=== PATIENT | male | born 1985 | race Caucasian/White ===

== ENCOUNTER 2019-05-16 09:13 | Inpatient (IN) | payer MEDICARE, MEDICAID, SELFPAY ==
[2019-05-16 09:22] VITALS: BP 119/83; PULSE 104; RESP 18; TEMP 36.9; O2SAT 96; BMI 25.1
--- NOTE | 2019-05-16 09:44 | ED_ITS ---
Entered by Liz Barron, acting as scribe for Farhad Haas DO HPI - Psych General: Chief Complaint: Psychiatric Symptoms Stated Complaint: SI Time Seen by Provider: 05/16/19 09:44 Source: patient Mode of arrival: ambulatory Limitations: no limitations History of Present Illness: HPI Narrative: 34-year-old male comes in complaining of suicidal ideation. He has been hospitalized in the past for this. States he took a number of NSAIDs. He is not had any vomiting or diarrhea. He took maybe 8-10 of each ibuprofen and Naprosyn. Denies any other attempts to harm himself or taking any other medications. Patient is also been hearing voices and seeing things. He states the voices are what told him to kill try to kill himself. 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) Duration: constant History of same: Yes Relieving factors: none Exacerbating factors: medication (to overdose) and other (voices telling him to kill himself) Associated psychiatric symptoms: depression and suicidal ideation Associated symptoms: Reports no associated symptoms Treatments prior to arrival: none If self harm: admits thoughts of self harm and has plan (overdose) Review of Systems General: Reports: 10 or more systems reviewed and unremarkable except in HPI and below Const: Denies: fever, chills, body aches, change in appetite, fatigue or malaise ENMT: Denies: throat pain, ear pain, nasal discharge or nasal congestion Card: Denies: chest pain, edema, shortness of breath on exertion or shortness of breath when lying down Resp: Denies: shortness of breath, productive cough or non-productive cough GI: Denies: abdominal pain, nausea, vomiting, vomiting blood, coffee grounds in vomit, diarrhea, constipation, bloating, blood in stool or black tarry stool : Denies: flank pain, painful urination, urinary frequency or urinary urgency Skin/Breast: Denies: rash or itching PFSH ED PFSH: Social History Smoking and tobacco status: current every day smoker Physical Exam Const: COMMON NORMALS: average body habitus, oriented x3 and alert GENERAL APPEARANCE: cooperative, comfortable, well kempt and well developed NUTRITIONAL APPEARANCE: obese ORIENTATION/CONSCIOUSNESS: Yes awake, Yes orien peggy to person and Yes oriented to place HENMT: COMMON NORMALS: normocephalic, head/scalp atraumatic, EAC's normal, TM's normal bilaterally, external nose normal, moist oral mucous membranes and oropharynx normal HEAD & SCALP: normocephalic and atraumatic NOSE: externa l nose normal EXTERNAL AUDITORY CANAL: EAC's normal TYMPANIC MEMBRANE: TM's normal bilaterally MOUTH: oral and palatal mucosa normal, lip normal and tongue normal THROAT: posterior oropharynx normal and tonsils normal Eye: COMMON NORMALS: PERRL, EOMs intact bilaterally, conjunctivae normal and no scleral icterus CONJUNCTIVA: Yes conjunctivae normal PUPIL: Yes PERRL Neck/C-Spine: COMMON NORMALS: full ROM, no lymphadenopathy, supple, no meningeal signs and thyroid normal THYROID: thyroid normal and asymmetrical Lymph: LYMPHATIC: no lymphadenopathy noted Resp: COMMON NORMALS: normal respiratory effort, no retractions, no use of accessory muscles and clear to auscultation bilaterally AUSCULTATION: clear to auscultation bilaterally Cardio: COMMON NORMALS: regular rate and regular rhythm RATE: regular rate RHYTHM: regular rhythm HEART SOUNDS: no murmurs GI: COMMON NORMALS: normal to inspection, nondistended, normoactive bowel sounds, soft to palpation and no hepatosplenomegaly PALPATION: Yes soft and Yes no hepatosplenomegaly : COMMON NORMALS: Yes no CVA tenderness BLADDER/KIDNEY EXAM: Yes no CVA tenderness Back/Pelvis: COMMON NORMALS: no CVA tenderness LUMBAR SPINE/LOWER BACK: Yes normal to inspection Extremity: COMMON NORMALS: no clubbing, cyanosis or edema, no calf tenderness and no pedal edema Neuro: COMMON NORMALS: oriented x3 SENSORIUM/ORIENTATION: Yes alert, Yes oriented to person and Yes oriented to place MENINGEAL SIGNS: Yes no meningeal signs Psych: APPEARANCE: Yes well kempt Skin: COMMON NORMALS: no rashes or lesions noted and skin turgor normal GENERAL SKIN EXAM: no rashes or lesions noted and turgor normal MDM - Psych Lab Data: Labs: Lab Results 05/16/19 05/16/19 05/16/19 Range/Units 10:12 10:12 10:20 WBC 6.2 (4.0-10.0) 10^3/ uL RBC 5.03 (4.1-5.3) 10^6/u L Hgb 14.7 (11.7-16.6) g/dL Hct 43.3 (42.0-52.0) % MCV 86.1 (80-94) fL MCH 29.2 (28.0-34.0) pg MCHC 33.9 (30.0-36.0) g/dL RDW 12.1 (12.1-15.1) % Plt Count 203 (130-400) 10^3/c mm MPV 10.1 (7.4-10.4) fL Neut % (Auto) 72.7 % Lymph % (Auto) 18.2 % Dawes % (Auto) 5.8 % Eos % (Auto) 2.7 % Baso % (Auto) 0.3 % Neut # (Auto) 4.5 (1.8-7.7) 10^3/u L Lymph # (Auto) 1.1 (0.8-4.8) 10^3/u L Dawes # (Auto) 0.4 (0.2-0.9) 10^3/u L Eos # (Auto) 0.2 (0.0-0.8) 10^3/u L Baso # (Auto) 0.0 (0.0-0.1) 10^3/u L Nucleated RBC % (a uto) 0 % Nucleated RBCs # 0.0 /100WBC Sodium (136-145) mmol/L Potassium (3.5-5.1) mmol/L Chloride (98-107) mmol/L Carbon Dioxide (22-29) mmol/L Anion Gap (5-19) BUN (6-20) mg/dL Creatinine (0.7-1.2) mg/dL GFR Calculation (90-130) mL/min Glucose (65-115) mg/dL Calcium (8.5-10.5) mg/dL Total Bilirubin (0.15-1.2) mg/dL AST (0-40) U/L ALT (0-41) U/L Alkaline Phosphata se (40-130) IU/L Total Protein (6.6-8.7) g/dL Albumin (3.5-5.2) g/dL Globulin (1.3-4.6) g/dL Urine Color Yellow (Yellow) Urine Appearance Clear (CLEAR) Urine pH 5 (5-7) Ur Specific Gravit y 1.015 (1.005-1.030) Urine Protein Neg (Negative) Urine Glucose (UA) Norm (Normal) Urine Ketones Negative (Negative) Urine Occult Blood Neg (Negative) Urine Nitrate Negative (Negative) Urine Bilirubin Neg (NEGATIVE) Urine Urobilinogen Norm (Negative) mg/dL Ur Leukocyte Riya ase Negative (Negative) Salicylates (3-10) mg/dL Urine Opiates Scre en Negative (Negative) ng/mL Acetaminophen (10-30) ug/mL Ur Barbiturates Sc reen Negative (Negative) ng/mL Ur Phencyclidine S crn Negative (Negative) ng/mL Ur Amphetamines Sc reen Negative (Negative) ng/mL U Benzodiazepines Scrn Negative (Negative) ng/mL Urine Cocaine Scre en Negative (Negative) ng/mL U Marijuana (THC) Screen Negative (Negative) ng/mL Ethyl Alcohol (0-10) mg/dL 05/16/19 Range/Units 10:20 WBC (4.0-10.0) 10^3/ uL RBC (4.1-5.3) 10^6/u L Hgb (11.7-16.6) g/dL Hct (42.0-52.0) % MCV (80-94) fL MCH (28.0-34.0) pg MCHC (30.0-36.0) g/dL RDW (12.1-15.1) % Plt Count (130-400) 10^3/c mm MPV (7.4-10.4) fL Neut % (Auto) % Lymph % (Auto) % Dawes % (Auto) % Eos % (Auto) % Baso % (Auto) % Neut # (Auto) (1.8-7.7) 10^3/u L Lymph # (Auto) (0.8-4.8) 10^3/u L Dawes # (Auto) (0.2-0.9) 10^3/u L Eos # (Auto) (0.0-0.8) 10^3/u L Baso # (Auto) (0.0-0.1) 10^3/u L Nucleated RBC % (a uto) % Nucleated RBCs # /100WBC Sodium 139 (136-145) mmol/L Potassium 4.1 (3.5-5.1) mmol/L Chloride 102 (98-107) mmol/L Carbon Dioxide 22 (22-29) mmol/L Anion Gap 19.1 H (5-19) BUN 13 (6-20) mg/dL Creatinine 0.9 (0.7-1.2) mg/dL GFR Calculation 96.0 (90-130) mL/min Glucose 132 H (65-115) mg/dL Calcium 9.7 (8.5-10.5) mg/dL Total Bilirubin 0.4 (0.15-1.2) mg/dL AST 15 (0-40) U/L ALT 6 (0-41) U/L Alkaline Phosphata se 59 (40-130) IU/L Total Protein 7.2 (6.6-8.7) g/dL Albumin 4.3 (3.5-5.2) g/dL Globulin 2.9 (1.3-4.6) g/dL Urine Color (Yellow) Urine Appearance (CLEAR) Urine pH (5-7) Ur Specific Gravit y (1.005-1.030) Urine Protein (Negative) Urine Glucose (UA) (Normal) Urine Ketones (Negative) Urine Occult Blood (Negative) Urine Nitrate (Negative) Urine Bilirubin (NEGATIVE) Urine Urobilinogen (Negative) mg/dL Ur Leukocyte Riya ase (Negative) Salicylates < 0.3 L (3-10) mg/dL Urine Opiates Scre en (Negative) ng/mL Acetaminophen < 5.0 L (10-30) ug/mL Ur Barbiturates Sc reen (Negative) ng/mL Ur Phencyclidine S crn (Negative) ng/mL Ur Amphetamines Sc reen (Negative) ng/mL U Benzodiazepines Scrn (Negative) ng/mL Urine Cocaine Scre en (Negative) ng/mL U Marijuana (THC) Screen (Negative) ng/mL Ethyl Alcohol < 10 (0-10) mg/dL Discharge Plan Discharge Patient Disposition: Admitted As Inpatient Admit Provider: Jay Gabriel Clinical Impression: Suicidal ideation, Chronic schizophrenia, Acute psychosis Condition: Stable Interventions: ED Discharge Assessment Last Done: 05/16/19 11:48 Discharge Date/Time: 05/16/19 11:55 Coding Level of Care Code ED Cnc Technician for [facility] 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 The documentation recorded by the Anderson meredith Bridget Annette, accurately reflects the service I personally performed and the decisions made by me, Farhad Haas, DO May 16, 2019 09:13
[2019-05-16 10:18] LABS: Add Urine Microscopic? NO
[2019-05-16 10:28] LABS: Basophils % 0.3 %; Eosinophils # 0.2 10^3/uL (0.0-0.8); Eosinophils % 2.7 %; Hematocrit 43.3 % (42.0-52.0); Hemoglobin 14.7 g/dL (11.7-16.6); Lymphocytes # 1.1 10^3/uL (0.8-4.8); Lymphocytes % 18.2 %; Mean Corpuscular HGB Conc 33.9 g/dL (30.0-36.0); Mean Corpuscular Hemoglobin 29.2 pg (28.0-34.0); Mean Corpuscular Volume 86.1 fL (80-94); Mean Platelet Volume 10.1 fL (7.4-10.4); Monocytes # 0.4 10^3/uL (0.2-0.9); Monocytes % 5.8 %; Neutrophils # 4.5 10^3/uL (1.8-7.7); Neutrophils % 72.7 %; Nucleated Red Blood Cells % 0 %; Platelet Count 203 10^3/cmm (130-400); Red Blood Count 5.03 10^6/uL (4.1-5.3); Red Cell Distribution Width 12.1 % (12.1-15.1); White Blood Count 6.2 10^3/uL (4.0-10.0)
[2019-05-16 10:38] LABS: Bilirubin Urine Neg (NEGATIVE); Blood Urine Neg (Negative); Glucose Urine UA Norm (Normal); Ketones Urine Negative (Negative); Nitrate Urine Negative (Negative); Protein Urine Neg (Negative); Specific Gravity, Urine 1.015 (1.005-1.030); Urine Appearance Clear (CLEAR); Urine Color Yellow (Yellow); pH Urine 5 (5-7)
[2019-05-16 10:39] LABS: Leukocyte Esterase Urine Negative (Negative); Urobilinogen Urine Norm (Negative)
[2019-05-16 10:50] LABS: Alanine Aminotransferase 6 U/L (0-41); Albumin Level 4.3 g/dL (3.5-5.2); Alkaline Phosphatase 59 IU/L (40-130); Anion Gap 19.1 (5-19); Aspartate Amino Transferase 15 U/L (0-40); Blood Urea Nitrogen 13 mg/dL (6-20); Calcium 9.7 mg/dL (8.5-10.5); Carbon Dioxide 22 mmol/L (22-29); Chloride 102 mmol/L (98-107); Globulin 2.9 g/dL (1.3-4.6); Glucose 132 mg/dL (65-115); Potassium 4.1 mmol/L (3.5-5.1); Sodium 139 mmol/L (136-145); Total Bilirubin 0.4 mg/dL (0.15-1.2); Total Protein 7.2 g/dL (6.6-8.7)
[2019-05-16 10:54] LABS: Amphetamines Screen Urine Negative (Negative); Barbiturates Screen Urine Negative (Negative); Benzodiazepines Screen Urine Negative (Negative); Cocaine Screen Urine Negative (Negative); Opiate Screen Urine Negative (Negative); PCP Screen Urine Negative (Negative); THC Screen Urine Negative (Negative)
[2019-05-16 10:57] LABS: Acetaminophen < 5.0 ug/mL (10-30); Alcohol Level < 10 mg/dL (0-10); Salicylate < 0.3 mg/dL (3-10)
[2019-05-16] MEDS: LORazepam 1 mg Tablet PO (11:05)
[2019-05-16 11:46] VITALS: BP 126/82; PULSE 90; RESP 18; TEMP 36.4; O2SAT 94
[2019-05-16 11:48] VITALS: BP 126/82; PULSE 90; TEMP 36.4; O2SAT 94
[2019-05-16 14:42] VITALS: BP 90/61; PULSE 97; RESP 20; TEMP 36.8; O2SAT 96
[2019-05-16] MEDS: nicotine 2 mg Gum BUCCAL (14:50)
[2019-05-16] MEDS: CLONazepam 0.5 mg Tablet PO ×2 (14:51→18:10)
[2019-05-16] MEDS: OLANZapine ODT 5 MG TABLET PO (18:11)
[2019-05-16] MEDS: buprenorphine-naloxone 4-1 mg Film 2 EACH SUBLINGUAL (18:11)
[2019-05-16 20:06] VITALS: BP 98/63; PULSE 80; RESP 18; TEMP 36.5; O2SAT 98
--- NOTE | 2019-05-16 20:51 | PC.NURSE ---
2100 MED PT REFUSED 2100 MEDS. I EXPLAINED THE IMPORTANCE OF MEDICATION COMPLIANCE AND THE BENEFIT OF TAKING THE MEDS. PT STATES HE HAS NOT SEEN THE DOCTOR AND WILL NOT TAKE THESE MEDICATIONS.
[2019-05-17] MEDS: hyDROXYzine 25 mg Capsule 50 MG PO ×2 (02:53→11:09)
--- NOTE | 2019-05-17 02:54 | PC.NURSE ---
PRN VISTARIL PT GIVEN VISTARIL 50 MG PO FOR PT C/O ANXIETY. WILL CONTINUE TO MONITOR.
[2019-05-17 05:56] VITALS: BP 97/66; PULSE 85; RESP 19; TEMP 36.4; O2SAT 99
[2019-05-17 07:19] LABS: Basophils % 0.3 %; Eosinophils # 0.3 10^3/uL (0.0-0.8); Eosinophils % 4.8 %; Hematocrit 42.5 % (42.0-52.0); Hemoglobin 14.2 g/dL (11.7-16.6); Lymphocytes # 1.7 10^3/uL (0.8-4.8); Mean Corpuscular HGB Conc 33.4 g/dL (30.0-36.0); Mean Corpuscular Hemoglobin 29.4 pg (28.0-34.0); Mean Platelet Volume 10.5 fL (7.4-10.4); Monocytes # 0.6 10^3/uL (0.2-0.9); Monocytes % 9.3 %; Neutrophils # 3.7 10^3/uL (1.8-7.7); Neutrophils % 58.4 %; Nucleated Red Blood Cells % 0 %; Platelet Count 175 10^3/cmm (130-400); Red Blood Count 4.83 10^6/uL (4.1-5.3); Red Cell Distribution Width 12.3 % (12.1-15.1); White Blood Count 6.3 10^3/uL (4.0-10.0)
[2019-05-17 07:41] LABS: Alanine Aminotransferase 7 U/L (0-41); Alkaline Phosphatase 57 IU/L (40-130); Anion Gap 17.6 (5-19); Aspartate Amino Transferase 14 U/L (0-40); Blood Urea Nitrogen 19 mg/dL (6-20); Calcium 9.5 mg/dL (8.5-10.5); Carbon Dioxide 24 mmol/L (22-29); Chloride 106 mmol/L (98-107); Globulin 2.7 g/dL (1.3-4.6); Glomerular Filtration Rate 49.4 mL/min (90-130); Glucose 99 mg/dL (65-115); Potassium 4.6 mmol/L (3.5-5.1); Sodium 143 mmol/L (136-145); Total Bilirubin 0.2 mg/dL (0.15-1.2); Total Protein 6.7 g/dL (6.6-8.7)
[2019-05-17] MEDS: CLONazepam 0.5 mg Tablet PO ×2 (10:10→17:39)
[2019-05-17] MEDS: buprenorphine-naloxone 4-1 mg Film 2 EACH SUBLINGUAL ×2 (10:10→17:39)
--- NOTE | 2019-05-17 11:07 | P.HP_ITS ---
Providers/Chief Complaint Admitting Physician: Jay Gabriel MD Chief Complaint: SUICIDE ATTEMPT HPI NPU History of Present Illness Chief complaint: the voices are so bad that I'm going to kill myself. History of present illness: Shayan Dicskon is a 34 year old male who tells an undocumented fairly reasona ble story of a life lived suffering auditory hallucinations to varying degrees. When he is doing well, he will hear muttering voices that do not cause him a great deal of difficulty. He states that he seldom is free of the voices. HE deons not report taking medication for this problem on a skilled nursing or regular basis. 3 months ago, the voices began getting worse. He is has no theory as to why they have gotten worse. 3 weeks ago, they began getting intrusive to the point where he was willing to end his life just to free himself from the torture from these voices. He hears a number of different voices. He is able to interpret who they are. They are from important people in his life. These include a woman that he knows and Her boyfriend, his stepbrother and his . they Say demeaning things in a very loud manner. They tell him that he should and they tell him how he should kill himself. in spite of having struggled with during much of his life, he cannot give any guidance as to what interventions have been helpful. He said that he took lithium for a while and it was quite helpful. However it stopped working. It is noted that he was hospitalized here in October 2018 and was discharged on a combination of Suboxone, Zyprexa, and citalopram. He can give no assessment as to whether the Zyprexa helped him with his voices. He says that if the voices are reduced, he will no longr be suicidal. He is ambivalent about symptoms of depression. He says that he does not do anything enjoyable and simply passes this time when his phone and taking care of animals around his arm. He reports good sleep. He has no specific suicide plan this time. He said suicide thoughts were proceeded by the worsening of the voices. His urine drug screen is negative. He is actively taking the Suboxone and receives it from an outpatient therapist. However he has not continued his medications otherwise from discharge in October 2018. Mental health history: history of this patient was very difficult to acquire. He talks very rapidly and in the low mumbling fashion. His thoughts are mildly disorganized.he reports that originally he grew up in [place] and that at one point he left a rehabilitation program there and moved to [place]. He was only in [place] for 3 months when there were some financial difficulties and he came to the [facility] in 2010. He gives no further history regarding mental health care. It is noted that he can give no advisement regarding any other medication trials that have had any effect positive for negative on his auditory hallucinations. notes from his admission to this unit in October 2018: 11/13/2018 Shayan presents today reporting that the situation with his razor blade centered around his loss of his fianc?e. He reports that his significant other had committed suicide about 3 days shy of 2 years of when he made this suicide attempt before admission. He reports that he was feeling very low without feeling a clear sense of relief. And he had read online that he swallowed a razor blade that it would go through certain parts and because it was internal organs you would not feel it as it was slicing through things and that he would bleed out in his sleep. He reports that when he woke up and was alive but had a rectal bleeding he got really anxious and that when he came to the hospital. He is passed the razor blade now and at this point he reports that he is feeling better and more optimistic. With his first day on the psychiatric unit we discussed the fact that we needed to observe him for a couple of days to get a sense of where he really is prior to being comfortable with discharge. We had filed a 21-day hold paperwork but were able to negotiate and get an agreement that he will work with us over the next few days with a plan for discharge at the beginning of the week. Hospital Course: Shayan presented to the unit after being in the ICU and followed by surgery secondary to the ingestion of a razor blade or at least razor blade containing item from the head of a razor. After being followed until the object had been defecated since they were unable to get it by surgical means he was transferred to the NPU. After he woke up alive he reports that he got himself to the hospital for help and reports that he did not have any lethality after awaking and felt a desire to get help and not continue with self-injurious suicidal behaviors. So after a few days in the ICU he spent a few days in the NPU where he was observed and each day denied any lethality and a desire to go home and continue with his life. His medications were continued. Once he got to the NPU he acclimated to the individual, group and milieu therapies. While he was in the hospital he had routine laboratory studies which were within normal limits except for a few outliers. Those can be seen below. He also had a general medical evaluation this was within normal limits and revealed no acute processes except for the issue with the intentional ingestion. At the time of discharge his mood had improved, his lethality had resolved and he was sleeping better. He endorsed the plan to take his medication as prescribed, continue with his recovery oriented outpatient treatments and abstain from drugs of abuse as well as self-injurious and suicidal behaviors. He had obtained all the benefits he could get from the inpatient unit so he was discharged. Social history:the patient is currently supporting himself through his disability payments. He lives with uncle who apparently has a farm. He spends much of his time helping his uncle with daily activities around the farm such as feeding animals and taking care of the general grounds. He engages in no enjoyable activities and largely spends his time playing on his phone. His uncle apparently is advanced in age and is concerned about Shayan's well-being as the uncle's health declines. Shayan's uncle has advised him to go to a rehabilitation program and get off the Suboxone so that eventually he can be placed in a chcf or residential care facility. Legal history:there is no history in the [place] public record of incarcerations or felony arrests. Past medical history: Allergies Escitalopram. NSAIDS (NON-STEROIDAL ANTI-INFLAMMA. Venlafaxine. SOCIAL HX: Heavy tobacco smoker (cigarette)- 1 pack per day. No alcohol use or drug use. No recent travel. PROBLEMS: Ulcerative Colitis. GI Bleeding. Depression. Bipolar Disorder. Colitis. ADDITIONAL SURGERIES: Appendectomy. . Mental Status Exam: the patient is an alert interpersonally engaged male. He is believed to be a reliable informant to the best of his ability as information that is provided is internally consistent and consistent with that in the chart. Appearance: hygiene is fair; no gross neurological deficits., gait is unremarkable; AIMS=0 Speech: Speech is she is rapid with indistinct enunciation with frequently makes some of the information difficult to assess. Thought processes: Thought processes are abstract. Judgment is adequate for s afety. Associations: intact Psychotic processes: There is no indication of guarding or paranoia. There is no attention to the internal stimuli. auditory hallucinations are reported as above. He denied the presence of visual hallucinations. Judgment: Insight is good. Problem solving skills are adequate for safety. Orientation: The patient is oriented to person, place time and situation. Memory: no deficits noted in immediate, intermediate, or remote spheres. Attention: The patient is alert and interpersonally engaged. Language: Verbalizations are coherent. Fund of knowledge: Fund of knowledge is adequate. Affect/Mood: Affect is consistent with a depressed mood. he reported vague suici matteo ideation without intent or plan. Affective range good Psychosis: perception unimpaired despite intrusive auditory hallucinations that he is experiencing.; reality testing intact. Diagnoses: schizophrenia?undifferentiated, acute Assessment:this is a difficult situation given that he has a long-standing history of schizophrenia but can give no feedback as to what medications have been tried without any success in the past. At this point, we will continue the Zyprexa 20 mg at bedtime and also provide when necessary dosing during the day with Geodon as needed for auditory hallucinations. He will continue with Suboxone and the Celexa. We will discuss the feasibility of placement in a re habilitation program with social worker health services. If this is a reasonable possibility, tapering some from Suboxone will be discussed. Treatment plan: Due to the psychiatric conditions and treatment listed in the Assessment and Plan - the patient requires continued hospitalization. Will provide a safe and therapeutic environment for patient.. Will continue inpatient treatment to allow for medication adjustment and monitoring. Will continue q15 min safety checks. this is a difficult situation given that he has a long-standing history of schizophrenia but can give no feedback as to what medications have been tried without any success in the past. At this point, we will continue the Zyprexa 20 mg at bedtime and also provide when necessary dosing during the day with Geodon as needed for auditory hallucinations. He will continue with Suboxone and the Celexa. We will discuss the feasibility of placement in a rehabilitation program with social worker health services. If this is a reasonable possibility, tapering some from Suboxone will be discussed. Monitor patient's mood, sleep, appetite, and behavior closely. Encourage patient to participate in individual and group therapeutic sessions on the lozoya. Estimated length of stay 5 days The expected benefits and potential side effects of patient's psychiatric medications were discussed with the patient. The patient understands and consents to treatment.CRITERIA FOR DISCHARGE: stable on medications and no longer an im Meds NPU Home Medications Medication Instructions Recorded Confirmed Type [id number] See Rx Instructions .ROUTE .COMPLEX 05/16/19 0 05/16/19 History [Excedrin Migraine] buprenorphine-naloxone 1 film SUBLINGUAL BID 05/16/19 05/16/19 History Allergies Allergy/AdvReac Type Severity Reaction Status Date / Time mushroom Allergy Unknown Unknown Verified 05/16/19 10:22 escitalopram [From Lexapro] Allergy ALGY-Anaphy Verified 05/16/19 09:30 laxis NSAIDS (Non-Steroidal Allergy ADR-Abdominal Verified 05/16/19 09:30 Anti-Inflamma Pain venlafaxine [From Effexor] Allergy ALGY-Anaphy Verified 05/16/19 09:30 laxis PFSH NPU PFSH: Social History Smoking and tobacco status: current every day smoker Vitals/I&O/Wt Last Vital Signs Temp 97.5 F L 05/17/19 05:56 Pulse 85 05/17/19 05:56 Resp 19 H 05/17/19 05:56 BP 97/66 05/17/19 05:56 Pulse Ox 99 05/17/19 05:56 Weight last 48 hrs Weight 81.647 kg Data NPU : 05/17/19 07:09 05/17/19 07:09 Involuntary Hold Information 96 Hour Hold: 96 Hour Involuntary Admission: Yes 96 Hour Hold Ending Date: 05/22/19 96 Hour Hold Ending Time: 11:00 Attestations NPU Medical Necessity Statement*: he will likely remain in the hospital 5-6 more nights while we find a medication effective at treating his primary problem. 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
[2019-05-17] MEDS: nicotine 2 mg Gum BUCCAL ×3 (11:09→19:41)
--- NOTE | 2019-05-17 11:09 | PC.NURSE ---
PRN VISTARIL VISTARIL 50MG PO PER PT C/O ANXIETY. WILL CONTINUE TO MONITOR FOR MEDICATION EFFECTIVENESS.
--- NOTE | 2019-05-17 12:00 | PC.NURSE ---
PRN VISTARIL FOLLOW UP MEDICATION EFFECTIVE. NO FURTHER C/O ANXIETY.
[2019-05-17] MEDS: LORazepam 0.5 mg Tablet PO ×2 (13:07→22:05)
--- NOTE | 2019-05-17 13:07 | PC.NURSE ---
PRN ATIVAN ATIVAN 0.5MG PO PER PATIENT C/O ANXIETY. WILL CONTINUE TO MONITOR FOR MEDICATION EFFECTIVENESS.
[2019-05-17 14:00] VITALS: BP 91/58; PULSE 66; RESP 16; TEMP 36.6; O2SAT 98
--- NOTE | 2019-05-17 14:00 | PC.NURSE ---
PRN ATIVAN FOLLOW UP MEDICATION EFFECTIVE. NO FURTHER C/O ANXIETY.
[2019-05-17] MEDS: acetaminophen 325 mg Tablet 650 MG PO (16:01)
[2019-05-17] MEDS: OLANZapine ODT 5 MG TABLET PO (17:00)
--- NOTE | 2019-05-17 17:00 | PC.NURSE ---
Addendum entered by Selene Mercado LPN 05/17/19 18:04: MEDICATION EFFECTIVE. PATIENT IS LYING IN BED RESTING, RESPIRATIONS EVEN AND UNLABORED. Original Note: PRN ZYPREXA ZYDIS ZYPREXA ZYDIS 5MG PO PER PT C/O AGITATION/PSYCHOSIS. WILL CONTINUE TO MONITOR FOR MEDICATION EFFECTIVENESS.
[2019-05-17] MEDS: PARoxetine 20 mg Tablet PO (20:59)
[2019-05-17] MEDS: OLANZapine 10 mg TABLET 20 MG PO (20:59)
[2019-05-17 21:43] VITALS: BP 101/52; PULSE 68; RESP 19; O2SAT 97
--- NOTE | 2019-05-17 21:43 | PC.NURSE ---
Pt refused to take temperature.
[2019-05-18] MEDS: nicotine 2 mg Gum BUCCAL ×6 (05:38→20:14)
[2019-05-18 06:00] VITALS: BP 93/56; PULSE 64; RESP 16; TEMP 36.7; O2SAT 97
[2019-05-18] MEDS: CLONazepam 0.5 mg Tablet PO ×3 (08:13→20:13)
[2019-05-18] MEDS: buprenorphine-naloxone 4-1 mg Film 2 EACH SUBLINGUAL ×2 (08:13→17:58)
[2019-05-18] MEDS: hyDROXYzine 25 mg Capsule 50 MG PO ×2 (09:53→16:03)
--- NOTE | 2019-05-18 09:53 | PC.NURSE ---
PRN VISTARIL VISTARIL 50 MG PO PER PT C/O ANXIETY. WILL CONTINUE TO MONITOR FOR MEDICATION EFFECTIVENESS.
--- NOTE | 2019-05-18 11:00 | PC.NURSE ---
PRN VISTARIL FOLLOW UP MEDICATION SOMEWHAT EFFECTIVE. PATIENT STATED THAT THE MEDICATION ONLY HELPS FOR ABOUT AN HOUR.
[2019-05-18] MEDS: LORazepam 0.5 mg Tablet PO (11:37)
--- NOTE | 2019-05-18 11:37 | PC.NURSE ---
Addendum entered by Selene Mercado LPN 05/18/19 12:10: MEDICATION NOT EFFECTIVE. PATIENT BROUGHT A NOTE UP TO THE NURSES STATION SAYING HE IS HAVING VISUAL HALLUCINATIONS. SEE NEXT NOTE. Original Note: PRN ATIVAN ATIVAN 0.5MG PO PER PATIENT C/O ANXIETY. PATIENT STATED THAT HE WANTS TO GO HOME. HE FILLS LIKE THE MEDICATION ISNT HELPING HIM. WILL CONTINUE TO MONITOR FOR MEDICATION EFFECTIVENESS.
[2019-05-18] MEDS: OLANZapine ODT 5 MG TABLET PO (12:08)
--- NOTE | 2019-05-18 12:08 | PC.NURSE ---
PRN ZYPREXA ZYDIS ZYPREXA ZYDIS 5MG PO PER PT C/O PSYCHOSIS. PATIENT STATED THAT HE WAS HAVING VISUAL HALLUCINATIONS. DR. ORELLANA NOTIFIED. WILL CONTINUE TO MONITOR FOR MEDICATION EFFECTIVENESS.
--- NOTE | 2019-05-18 12:53 | P.PN_ITS ---
Subjective NPU Subjective: Interval history: I'm seeing spiders, small, squiggly, basic, purple and black ones and when I look at people like they're saying something other than what they mean. Mental Status Exam MSE Comments: Mental Status Exam: the patient is an alert interpersonally engaged male. He is believed to be a reliable informant to the best of his ability as information that is provided is internally consistent and consistent with that in the chart. Appearance: hygiene is fair; no gross neurological deficits., gait is unremarkable; AIMS=0 Speech: Speech is she is rapid with indistinct enunciation with frequently makes some of the information difficult to assess. Thought processes: Thought processes are abstract. Judgment is adequate for safety. Associations: intact Psychotic processes: There is no indication of guarding or paranoia. There is no attention to the internal stimuli. auditory hallucinations are reported as above. He denied the presence of visual hallucinations. Judgment: Insight is good. Problem solving skills are adequate for safety. Orientation: The patient is oriented to person, place time and situation. Memory: no deficits noted in immediate, intermediate, or remote spheres. Attention: The patient is alert and interpersonally engaged. Language: Verbalizations are coherent. Fund of knowledge: Fund of knowledge is adequate. Affect/Mood: Affect is consistent with a depressed mood. he reported vague suicidal ideation without intent or plan. Affective range good Psychosis: perception unimpaired despite intrusive auditory hallucinations that he is experiencing.; reality testing intact. Vitals/I&O/Wt Last Vital Signs Temp 98.0 F 05/18/19 06:00 Pulse 64 05/18/19 06:00 Resp 16 05/18/19 06:00 BP 93/56 05/18/19 06:00 Pulse Ox 97 05/18/19 06:00 Data NPU : 05/17/19 07:09 05/17/19 07:09 A&P Additional A&P Information Diagnoses: schizophrenia?undifferentiated, acute Assessment:this is a difficult situation given that he has a long-standing history of schizophrenia but can give no feedback as to what medications have been tried without any success in the past. At this point, we will continue the Zyprexa 20 mg at bedtime and also provide when necessary dosing during the day with Geodon as needed for auditory hallucinations. He will continue with Suboxone and the Celexa. We will discuss the feasibility of placement in a rehabilitation program with web content & social media manager. If this is a reasonable possibility, tapering some from Suboxone will be discussed. Treatment plan: Due to the psychiatric conditions and treatment listed in the Assessment and Plan - the patient requires continued hospitalization. Will provide a safe and therapeutic environment for patient.. Will continue inpatient treatment to allow for medication adjustment and monitoring. Will continue q15 min safety checks. this is a difficult situation given that he has a long-standing history of schizophrenia but can give no feedback as to what medications have been tried without any success in the past. At this point, we will continue the Zyprexa 20 mg at bedtime and also provide when necessary dosing during the day with Geodon as needed for auditory hallucinations. He will continue with Suboxone and the Celexa. We will discuss the feasibility of placement in a rehabilitation program with web content & social media manager. If this is a reasonable possibility, tapering some from Suboxone will be discussed. hospital day #3: There is just something very strange about his report of visual hallucinations that would be very threatening to other people but he seems to take very calmly in the absence of auditory hallucinations. His reality testing remains intact. Plan: Continue Zyprexa 20 mg at bedtime, Suboxone 8/2 twice a day, clonazepam 0.5 mg twice a day, and Celexa. We'll continue to provide when necessary dosing of Zyprexa Zydis and claims it makes absolutely no impact in his hallucinations. Will increase clonazepam to 0.5 mg 3 times a day. Monitor patient's mood, sleep, appetite, and behavior closely. Encourage patient to participate in individual and group therapeutic sessions on the lozoya. Estimated length of stay 5 days The expected benefits and potential side effects of patient's psychiatric medications were discussed with the patient. The patient understands and consents to treatment.CRITERIA FOR DISCHARGE: stable on medications and no longer an im Involuntary Hold Information 96 Hour Hold: 96 Hour Involuntary Admission: Yes 96 Hour Hold Ending Date: 05/22/19 96 Hour Hold Ending Time: 11:00 Attestations NPU Medical Necessity Statement*: patient will remain in the hospital another 4-5 nights for resolution of psychosis. Coding Level of Care Code Acute Waste Water Plant Operator for Jordan Craft
--- NOTE | 2019-05-18 13:00 | PC.NURSE ---
PRN ZYPREXA ZYDIS FOLLOW UP MEDICATION EFFECTIVE. NO FURTHER C/O ANXIETY.
[2019-05-18 14:00] VITALS: BP 102/68; PULSE 73; RESP 18; TEMP 36.8; O2SAT 96
--- NOTE | 2019-05-18 16:03 | PC.NURSE ---
Addendum entered by Selene Mercado LPN 05/18/19 16:38: MEDICATION NOT EFFECTIVE. PATIENT UP TO THE NURSES STATION WITH C/O ANXIETY AND HEARING VOICES. SEE NEXT NOTE. Original Note: PRN VISTARIL VISTARIL 50 MG PO PER PT C/O ANXIETY. WILL CONTINUE TO MONITOR FOR MEDICATION EFFECTIVENESS.
[2019-05-18] MEDS: benztropine 1 mg Tablet PO (16:33)
[2019-05-18] MEDS: haloperidol 5 mg Tablet PO (16:33)
--- NOTE | 2019-05-18 16:33 | PC.NURSE ---
Addendum entered by Selene Mercado LPN 05/18/19 17:38: staff asked patient is the medication helped him any and patient stated that he doesn't feel any different. patient isnt showing any s/s of responding to hallucinations. Original Note: PRN HALDOL AND PRN COGENTIN HALDOL 5MG PO PER PATIENT C/O ANXIETY/PSYCHOSIS. COGENTIN 1MG PO GIVEN TO PATIENT. PATIENT STATED HE WANTED THE COGENTIN WITH THE HALDOL IT IN CASE IT GAVE HIM RESTLESS LEG. WILL CONTINUE TO MONITOR FOR MEDICATION EFFECTIVENESS.
--- NOTE | 2019-05-18 18:33 | PC.NURSE ---
PT CAME TO THE NURSE DECK WITH A PAPER REPORTING THAT HIS VOICES ARE REALLY BAD AND THEY ARE TELLING HIM THEY ARE GOING TO TAKE AWAY EVERYTHING WHEN HE IS ASLEEP. PT HAS BEEN MEDICATED WITH VARIOUS MEDICATIONS TODAY BUT VOICED THEY ARE INEFFECTIVE. CALL PLACED TO DR ORELLANA. ORDER FOR ATIVAN 2 MG PO X1.
[2019-05-18] MEDS: LORazepam 2 mg Tablet PO (18:39)
--- NOTE | 2019-05-18 18:42 | PC.NURSE ---
PRN ATIVAN ATIVAN 2MG PO ONE TIME ORDER PER DR. ORELLANA TELEPHONE ORDER.
[2019-05-18] MEDS: OLANZapine 10 mg TABLET 20 MG PO (20:13)
[2019-05-18] MEDS: PARoxetine 20 mg Tablet PO (20:13)
[2019-05-18 21:47] VITALS: BP 105/69; PULSE 88; RESP 20; TEMP 36.4; O2SAT 93
--- NOTE | 2019-05-19 02:15 | PC.NURSE ---
Pt comes to the nurse station often, every half hour to 1 hour. requesting Ativan. during assessment pt reports that he is hearing voices. Pt offered PRN Zyprexa, declines. pt states the Dr said I can have Ativan when I request it . Medication teaching done. Pt denies feeling anxious, continues to report hearing voices. pt became angry, went to room, slammed door. Nurse went to room, reminded pt, door is to remain open. pt was able to calm at this time. continue to monitor.
[2019-05-19 06:00] VITALS: BP 100/55; PULSE 74; RESP 17; TEMP 36.9; O2SAT 95
[2019-05-19] MEDS: buprenorphine-naloxone 4-1 mg Film 2 EACH SUBLINGUAL ×2 (08:25→17:49)
[2019-05-19] MEDS: CLONazepam 0.5 mg Tablet PO ×4 (08:25→20:46)
--- NOTE | 2019-05-19 08:26 | P.PN_ITS ---
Subjective NPU Subjective: Interval history: They gave Zyprexa when I was a child when I was taking Adderall and couldn't sleep. My mom is to give me Seroquel and nortriptyline that helped. Medications: Medication Review Details: Staff reports indicate that he is frequently reporting visual hallucinations but not auditory hallucinations. Over the past 24 hours she has been specifically starting to ask for benzod iazepines and is reluctant to take his Zyprexa. Sleep last night was variable. Mental Status Exam MSE Comments: Mental Status Exam: the patient is A fatigued but interpersonally engaged male. He is believed to be a reliable informant to the best of his ability as information that is provided is internally consistent and consistent with that in the chart. Appearance: hygiene is fair; no gross neurological deficits., gait is unremarkable; AIMS=0 Speech: Speech is she is rapid with indistinct enunciation with frequently makes some of the information difficult to assess. Thought processes: Thought processes are abstract. Judgment is adequate for safety. Associations: intact Psychotic processes: There is no indication of guarding or paranoia. There is no attention to the internal stimuli. auditory hallucinations are reported as above. He denied the presence of visual hallucinations. Judgment: Insight is good. Problem solving skills are adequate for safety. Orientation: The patient is oriented to person, place time and situation. Memory: no deficits noted in immediate, intermediate, or remote spheres. Attention: The patient is alert and interpersonally engaged. Language: Verbalizations are coherent. Fund of knowledge: Fund of knowledge is adequate. Affect/Mood: Affect is consistent with a depressed mood. he Denied suicidal ideation. Affective range good Psychosis: perception unimpaired despite intrusive auditory hallucinations that he is experiencing.; reality testing intact. Cognition: Patient Appearance: Disheveled/Poor Hygiene Level of Consciousness: Awake and Alert Patient Cognition Impaired: No Ability to Follow Directions: Good Patient Orientation (long list): Person, Place and Time Comprehension Ability: No Impairment Hallucination Type: None Delusion Description: Not Present Thought Process: Disorganized Affect: Affect Description: Appropriate Depressive Symptoms: Difficulty Concentrating and Increased Anxiety Behavior: Patient Behavior: Intrusive Speech Pattern: Mumbled Vitals/I&O/Wt Last Vital Signs Temp 98.4 F 05/19/19 06:00 Pulse 74 05/19/19 06:00 Resp 17 05/19/19 06:00 BP 100/55 05/19/19 06:00 Pulse Ox 95 05/19/19 06:00 Data NPU : 05/17/19 07:09 05/17/19 07:09 A&P Additional A&P Information Diagnoses: schizophrenia?undifferentiated, acute Assessment:this is a difficult situation given that he has a long-standing history of schizophrenia but can give no feedback as to what medications have been tried without any success in the past. At this point, we will continue the Zyprexa 20 mg at bedtime and also provide when necessary dosing during the day with Geodon as needed for auditory hallucinations. He will continue with Suboxone and the Celexa. We will discuss the feasibility of placement in a rehabilitation program with long term care social worker. If this is a reasonable possibility, tapering some from Suboxone will be discussed. Treatment plan: Due to the psychiatric conditions and treatment listed in the Assessment and Plan - the patient requires continued hospitalization. Will provide a safe and therapeutic environment for patient.. Will continue inpatient treatment to allow for medication adjustment and monitoring. Will continue q15 min safety checks. this is a difficult situation given that he has a long-standing history of schizophrenia but can give no feedback as to what medications have been tried without any success in the past. At this point, we will continue the Zyprexa 20 mg at bedtime and also provide when necessary dosing during the day with Geodon as needed for auditory hallucinations. He will continue with Suboxone and the Celexa. We will discuss the feasibility of placement in a rehabilitation [facility] with long term care social worker. If this is a reasonable possibility, tapering some from Suboxone will be discussed. hospital day #3: There is just something very strange about his report of visual hallucinations that would be very threatening to other people but he seems to take very calmly in the absence of auditory hallucinations. His reality testing remains intact. Plan: Continue Zyprexa 20 mg at bedtime, Suboxone 8/2 twice a day, clonazepam 0.5 mg twice a day, and Celexa. We'll continue to provide when necessary dosing of Zyprexa Zydis and claims it makes absolutely no impact in his hallucinations. Will increase clonazepam to 0.5 mg 3 times a day. Hospital day #4: Situation is difficult to assess as there is just something unusual About hisvisual hallucinations with no problems with auditory hallucinations. Also visual hallucinations do not seem to be responding to antipsychotic medication. There is a sense that he is starting to seek benzodiazepines. Plan: Replace olanzapine with quetiapine 400 mg at bedtime and 25 mg twice a day to be given his clonazepam. When necessary lorazepam was changed to clonazepam. Goal is to try and minimize polypharmacy and also to assess just how much of the benzodiazepine he will use if he has it available. There is a sense that he is starting to be med seeking and this will give us a sense of whether that is a true trend or not. Monitor patient's mood, sleep, appetite, and behavior closely. Encourage patient to participate in individual and group therapeutic sessions on the lozoya. Estimated length of stay 5 days The expected benefits and potential side effects of patient's psychiatric medications were discussed with the patient. The patient understands and consents to treatment.CRITERIA FOR DISCHARGE: stable on medications and no longer an im Involuntary Hold Information 96 Hour Hold: 96 Hour Involuntary Admission: Yes 96 Hour Hold Ending Date: 05/22/19 96 Hour Hold Ending Time: 11:00 Attestations NPU Medical Necessity Statement*: Patient will remain in the hospital 3 more nights for the completion of his 96 hour involuntary commitment. Coding Level of Care Code Acute Nutritional Health Coach for Jordan Craft
[2019-05-19] MEDS: quetiapine 25 mg Tablet PO ×3 (08:32→20:45)
[2019-05-19] MEDS: nicotine 2 mg Gum BUCCAL ×2 (09:14→20:46)
--- NOTE | 2019-05-19 10:14 | PC.NURSE ---
PT CAME TO THE NURSES DESK AND VOICED THT HE IS HAVING INCREASED ANXIETY. ADMINISTERED PRN CLONAZEPAM 0.5 MG PO ORDERED. WILL CONT TO MONITOR AND FOLLOW UP NEEDED.
--- NOTE | 2019-05-19 11:17 | PC.NURSE ---
PT REPORTS THAT THE MEDICATION HELPS A LITTLE BUT THAT HE ALWAYS HAS ANXIETY AND HAS TO TAKE ALOT OF BENZOS TO FEEL LESS ANXIOUS . WILL CONT TO MONITOR AND FOLLOW UP NEEDED
[2019-05-19 13:36] VITALS: BP 101/66; PULSE 74; RESP 18; TEMP 36.7; O2SAT 99
--- NOTE | 2019-05-19 15:31 | PC.NURSE ---
PT COMES TO THE NURSES STATION AND FREQUENTLY ASKS FOR ADDITIONAL CLONAZEPAM OR SOME SORT OF ANXIETY MEDICATION BUT PT CAN BARELY KEEP HIS EYES OPEN AND SPEECH IS SLOW. ASKING FOR ADDITIONAL PRN CLONAZEPAM AFTER RECEIVED SCHEDULED MEDICATION. EXPLAINED TO PT THAT THE PRN MEDICATION WAS A LITTLE TO SOON,BUT ASKED IF THERE WAS ANYTHING THAT WE COULD DO FOR HIM UNTIL IT WAS TIME AND HE ASKED FOR SOME ASHANTI CRACKERS INSTEAD. WILL CONT TO MONITOR AND FOLLOW UP NEEDED.
[2019-05-19] MEDS: nortriptyline 25 mg Capsule 50 MG PO (20:45)
[2019-05-19 22:00] VITALS: BP 98/62; PULSE 85; RESP 22; TEMP 36.4; O2SAT 98
[2019-05-20 06:00] VITALS: BP 116/56; PULSE 78; RESP 18; TEMP 36.4; O2SAT 97
[2019-05-20] MEDS: quetiapine 25 mg Tablet PO ×2 (08:31→14:50)
[2019-05-20] MEDS: CLONazepam 0.5 mg Tablet PO ×4 (08:31→20:28)
[2019-05-20] MEDS: buprenorphine-naloxone 4-1 mg Film 2 EACH SUBLINGUAL ×2 (08:31→18:15)
[2019-05-20] MEDS: nicotine 2 mg Gum BUCCAL ×3 (10:33→18:15)
--- NOTE | 2019-05-20 12:47 | PC.NURSE ---
DEMANDING MEDICATIONS, PT ASKING FOR VISTARIL IN PARTICULAR. PT TOLD HE DID NOT HAVE VISTARIL PRN ON HIS CURRENT MED LIST, NURSE REMINDED PT THAT HE HAD PRN KLONOPIN AN HOUR AGO, THAT HE WAS ALSO ON SCHEDULED KLONOPIN & WOULD RECEIVE SCHEDULED KLONOPIN IN AN HOUR. PT TOLD THIS NURSE I NEED TO SPEAK TO SOMEBODY ELSE ABOUT MY CARE, YOU DON'T SEEM TO CARE ABOUT ME! BOILER SETTER ANTONI CAME TO SPEAK TO PT, SHE REMINDED HIM THAT HE FELL ASLEEP IN GROUP YESTERDAY & THAT MIGHT BE WHY THE DOCTOR CHANGED SOME OF HIS MEDICATIONS. PT STATED TO ANTONI I'M NOT ASKING FOR MEDICATIONS. ANTONI ASKED PT THEN WHAT ARE YOU WANTING? PT STATED I'M READY TO LEAVE PT CONT TO LINGER AT NURSES STATION.
[2019-05-20 14:00] VITALS: BP 114/74; PULSE 79; RESP 18; TEMP 36.7; O2SAT 95
--- NOTE | 2019-05-20 17:33 | P.PN_ITS ---
Subjective NPU Subjective: Interval history: The patient remains agitated about troublesome visual hallucinations. He is not able to describe them. He told my predecessors that the olanzapine was not effective as quetiapine, which helped. Now he says that he does not like quetiapine because it made him fat and Zyprexa helped him until his prescription for it ran out. He does not remember what the dose was. He is upset that the nurses remember him to have been on Zyprexa, which he was until my colleague switched to quetiapine. Mental Status Exam MSE Comments: This is a 34-year-old male. Appearance: hygiene is fair; no gross neurological deficits., gait is unremarkable. Speech is rapid, with indistinct enunciation, which frequently makes some of the information difficult to assess. I had asked him to slow down and to enunciate more clearly, which he was able to do. Thought processes are abstract. Judgment is adequate for safety. Associations: intact Psychotic processes: There is no indication of guarding or paranoia. There is no attention to the internal stimuli. Auditory hallucinations are reported as above. He denied the presence of visual hallucinations yesterday but definitively affirms them today and denies auditory hallucinations. Judgment: Insight is good. Problem solving skills are adequate for safety. Orientation: The patient is oriented to person, place time and situation. Memory: no deficits noted in immediate, intermediate, or remote spheres. Attention: The patient is alert and interpersonally engaged. Language: Verbalizations are nearly incoherent because of his extremely poor diction. Fund of knowledge is adequate. Affect is consistent with depressed mood. He denied suicidal ideation. Affective range good. Psychosis: perception unimpaired despite intrusive visual hallucinations that he claims to experience; reality testing intact. Vitals/I&O/Wt Last Vital Signs Temp 98.0 F 05/20/19 14:00 Pulse 79 05/20/19 14:00 Resp 18 05/20/19 14:00 BP 114/74 05/20/19 14:00 Pulse Ox 95 05/20/19 14:00 Weight last 48 hrs Weight 213 lb 12.8 oz Data NPU : 05/17/19 07:09 05/17/19 07:09 A&P Additional A&P Information I do not share my colleague's confidence in this patient's reporting. His assertions on visual versus auditory hallucinations are at odds. Likewise for his affirmations that Seroquel versus Zyprexa were effective. I am also aware that he told the nurses that he was worried about the red skin on his face, whereas he was seen on the patient monitor to be using a red marker to discolor his skin. It is possible that there is an element of [place] in this patient's behavior. Plan: Will provide a safe and therapeutic environment for patient.. Will continue inpatient treatment to allow for medication adjustment and monitoring. Will continue q15 min safety checks. Involuntary Hold Information 96 Hour Hold: 96 Hour Involuntary Admission: Yes 96 Hour Hold Ending Date: 05/22/19 96 Hour Hold Ending Time: 11:00 Attestations NPU Medical Necessity Statement*: I anticipate 5-7 additional midnights hospitalization Time Spent in Patient Care: Greater than 35 minutes (>than 50% of time spent in counselling and/or direct pt care on unit) . Coding Level of Care Code Acute Accounting Instructor for Jordan Craft
[2019-05-20] MEDS: mirtazapine 30 mg Tablet PO (20:27)
[2019-05-20] MEDS: OLANZapine 10 mg ODT 15 MG PO (20:27)
[2019-05-20] MEDS: nortriptyline 25 mg Capsule 50 MG PO (20:28)
[2019-05-20 22:00] VITALS: BP 113/79; PULSE 89; RESP 20; TEMP 36.5; O2SAT 97
[2019-05-21] MEDS: acetaminophen 325 mg Tablet 650 MG PO (03:48)
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
[2019-05-21] MEDS: nicotine 2 mg Gum BUCCAL ×4 (05:37→20:49)
[2019-05-21 06:00] VITALS: BP 115/77; PULSE 97; RESP 21; TEMP 36.7; O2SAT 96
[2019-05-21] MEDS: buprenorphine-naloxone 4-1 mg Film 2 EACH SUBLINGUAL ×2 (09:00→17:49)
[2019-05-21] MEDS: CLONazepam 0.5 mg Tablet PO ×4 (09:00→20:48)
--- NOTE | 2019-05-21 10:20 | P.PN_ITS ---
Subjective NPU Subjective: Interval history: Patient states he feels more stable and is less irritable since he has gotten on the olanzapine 15 mg p.o. nightly. He notes that the impact tends to wear off around 2 in the afternoon and that during the night he has muscle aches at this dose, which he never incurred at the lower doses. We have a follow-up logistical problem and that so far we have not effectuated handoff to an outpatient treatment [facility]. I consulted with the transit planner concerning this. Medications: Reviewed: Yes Medication Review Details: I am changing the olanzapine from 15 mg p.o. nightly to 7.5 mg p.o. twice daily. I am hopeful this will resolve his early afternoon fade out . Mental Status Exam MSE Comments: This is a 34-year-old male who seems much younger than his stated age. He is disheveled but clean. Mood is anxious but not dysphoric, as he has frequently been. Affect is variegated and appropriate. Thought processes are integrated and free of any racing, blocking or looseness of association. Speech is poorly enunciated and sometimes difficult to understand. However there is no racing or true dysarthria and no aprosody. Cognitive functions appear to be adequate as is memory, recent and remote, though none are tested. He denies suicidal or homicidal ideation, plan or intent. Vitals/I&O/Wt Last Vital Signs Temp 98.0 F 05/21/19 06:00 Pulse 97 05/21/19 06:00 Resp 21 H 05/21/19 06:00 BP 115/77 05/21/19 06:00 Pulse Ox 96 05/21/19 06:00 Weight last 48 hrs Weight 213 lb 12.8 oz Data NPU : 05/17/19 07:09 05/17/19 07:09 Involuntary Hold Information 96 Hour Hold: 96 Hour Involuntary Admission: Yes 96 Hour Hold Ending Date: 05/22/19 96 Hour Hold Ending Time: 11:00 Attestations NPU Medical Necessity Statement*: I anticipate 3-4 additional midnights. Time Spent in Patient Care: Greater than 35 minutes (>than 50% of time spent in counselling and/or direct pt care on unit) . I had multiple consu ltations with this patient concerning medication adjustment, discharge plan, etc. Coding Level of Care Code Acute Typesetter Perforator Operator for Jordan Craft
--- NOTE | 2019-05-21 11:13 | PC.SOCIAL ---
Important Medicare Message Reviewed page 2 Important Medicare Message with patient, verbalized understanding and signed. Original to patient and copy in chart.
--- NOTE | 2019-05-21 11:29 | PC.NURSE ---
PRN KLONOPIN KLONOPIN 0.5MG PO PER PATIENT C/O ANXIETY. WILL CONTINUE TO MONITOR FOR MEDICATION EFFECTIVENESS.
--- NOTE | 2019-05-21 12:30 | PC.NURSE ---
PRN KLONOPIN FOLLOW UP MEDICATION EFFECTIVE. NO FURTHER C/O ANXIETY.
[2019-05-21 14:00] VITALS: BP 96/63; PULSE 71; RESP 20; TEMP 36.7; O2SAT 98
[2019-05-21] MEDS: OLANZapine ODT 5 MG TABLET 7.5 MG PO (18:18)
[2019-05-21] MEDS: nortriptyline 25 mg Capsule 50 MG PO (20:49)
[2019-05-21] MEDS: mirtazapine 30 mg Tablet PO (20:49)
[2019-05-21 22:00] VITALS: BP 116/73; PULSE 87; RESP 20; TEMP 36.4; O2SAT 97
[2019-05-22] MEDS: acetaminophen 325 mg Tablet 650 MG PO ×3 (04:32→21:10)
[2019-05-22 06:00] VITALS: BP 108/64; PULSE 109; RESP 22; TEMP 36.6; O2SAT 96
[2019-05-22] MEDS: nicotine 2 mg Gum BUCCAL ×3 (06:24→13:53)
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
[2019-05-22] MEDS: OLANZapine 5 mg TABLET PO ×3 (09:04→21:10)
[2019-05-22] MEDS: hyDROXYzine 25 mg Capsule 50 MG PO ×2 (09:04→15:51)
[2019-05-22] MEDS: buprenorphine-naloxone 4-1 mg Film 2 EACH SUBLINGUAL ×2 (09:04→17:37)
[2019-05-22] MEDS: CLONazepam 0.5 mg Tablet PO ×3 (09:04→21:10)
--- NOTE | 2019-05-22 09:06 | PC.NURSE ---
Addendum entered by Justine Colmenares LPN 05/22/19 10:07: prn med effective no further c/o anxiety currently Original Note: PRN VISTARIL 50 MG GIVEN PO PER PT C/O STATED ANXIETY. PARTICIPATING IN GROUP CURRENTLY, PT STATED I'M HAVING A REALLY BAD MORNING WILL CONT TO MONITOR
[2019-05-22 14:00] VITALS: BP 102/69; PULSE 90; RESP 20; TEMP 36.4; O2SAT 95
--- NOTE | 2019-05-22 15:52 | PC.NURSE ---
Addendum entered by Justine Colmenares LPN 05/22/19 18:35: prn med effective no further c/o anxiety. pt is currently playing cards in day room Original Note: PRN VISTARIL 50 MG GIVEN PO PER PT C/O ANXIETY
[2019-05-22 20:06] VITALS: BP 109/67; PULSE 99; RESP 21; TEMP 36.4; O2SAT 95
[2019-05-22] MEDS: nortriptyline 25 mg Capsule 50 MG PO (21:10)
[2019-05-22] MEDS: mirtazapine 30 mg Tablet PO (21:10)
[2019-05-23 06:00] VITALS: BP 100/66; PULSE 108; RESP 18; TEMP 36.6; O2SAT 94
[2019-05-23] MEDS: nicotine 2 mg Gum BUCCAL (06:39)
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
[2019-05-23] MEDS: CLONazepam 0.5 mg Tablet PO (08:24)
[2019-05-23] MEDS: OLANZapine 5 mg TABLET PO (08:24)
[2019-05-23] MEDS: buprenorphine-naloxone 4-1 mg Film 2 EACH SUBLINGUAL (08:24)
[2019-05-23 10:34] VITALS: BP 100/66; PULSE 108; RESP 18; TEMP 36.6; O2SAT 94
[2019-05-23 10:38] VITALS: BP 100/66; PULSE 108; RESP 18; TEMP 36.6; O2SAT 94
== END 2019-05-23 10:48 | disposition home or self-care (01) | DRG 885 ==
LOC: ER 09:59 → NP 11:45
PROVIDERS: Admitting Provider Psychiatry & Neurology Psychiatry; Emergency Provider Family Medicine; Visit Provider Psychiatry & Neurology Psychiatry
DX: F20.9 Schizophrenia, unspecified (principal); R45.851 Suicidal ideations; F17.210 Nicotine dependence, cigarettes, uncomplicated; F31.9 Bipolar disorder, unspecified
CPT/HCPCS: 12345; 36415; 80053; 80307; 81003; 85025; 99284; A9270; J0573

== ENCOUNTER 2019-06-24 13:43 | Inpatient (IN) | payer MEDICARE, SELFPAY ==
[2019-06-24] VITALS (14 sets, daily range): BP systolic 88–123; BP diastolic 54–84; PULSE 67–115; RESP 16–25; TEMP 36.3–37; O2SAT 92–100; BMI 23.8
--- NOTE | 2019-06-24 14:05 | XRR_ITS ---
PROCEDURE INFORMATION: Exam: XR Abdomen, 1 View Exam date and time: 06/24/2019 2:07 PM Age: 34 years old Clinical indication: Abdominal pain; Generalized; Prior surgery; Surgery date: 6+ months; Surgery type: Lap band, appy; Patient HX: Claims to have swallowed razor blades C/O abd pain and nausea; Additional info: PT claims to have swallowed razors TECHNIQUE: Imaging protocol: XR of the abdomen. Views: Frontal supine view of the abdomen. 1 View. COMPARISON: CR XR KUB portable [id number] 11/16/2018 2:32 PM FINDINGS: Gastrointestinal tract: There is stool throughout the colon. No bowel obstruction. Intraperitoneal space: Surgical sutures are suggested in the right lower quadrant of the abdomen. Bones/joints: Unremarkable. Soft tissues: As seen on the chest radiograph, there is a radiopaque foreign body in the upper left abdomen. XR/XR KUB [id number] IMPRESSION: No bowel obstruction. As seen on the chest radiograph, there is a radiopaque foreign body in the upper left abdomen. There are probable surgical sutures in the right lower quadrant.Clinical correlation is advised.
--- NOTE | 2019-06-24 14:05 | XRR_ITS ---
PROCEDURE INFORMATION: Exam: XR Chest, 1 View Exam date and time: 06/24/2019 2:16 PM Age: 34 years old Clinical indication: Patient HX: Claims to have swallowed razor blades C/O abd pain and nausea; Additional info: PT claims to have swallowed razors TECHNIQUE: Imaging protocol: XR of the chest Views: 1 view. COMPARISON: No relevant prior studies available. FINDINGS: Lungs: Unremarkable. No consolidation. Pleural space: Unremarkable. No pleural effusion. No pneumothorax. Heart/Mediastinum: There is a 3.7 cm metallic foreign body in the upper mediastinum. No pneumomediastinum. Bones/joints: Unremarkable. XR/XR chest 1V portable [id number] IMPRESSION: There is a 3.7 cm metallic foreign body in the upper mediastinum. If there is desire for further evaluation, a CT scan could be performed.
--- NOTE | 2019-06-24 14:15 | PC.NURSE ---
please see 1:1 charting for further documentation
[2019-06-24 14:19] LABS: Add Urine Microscopic? NO
[2019-06-24 14:19] LABS: Basophils % 0.4 %; Eosinophils # 0.2 10^3/uL (0.0-0.8); Eosinophils % 3.9 %; Hematocrit 45.1 % (42.0-52.0); Hemoglobin 15.2 g/dL (11.7-16.6); Lymphocytes # 1.3 10^3/uL (0.8-4.8); Lymphocytes % 23.4 %; Mean Corpuscular HGB Conc 33.7 g/dL (30.0-36.0); Mean Corpuscular Hemoglobin 28.7 pg (28.0-34.0); Mean Corpuscular Volume 85.3 fL (80-94); Mean Platelet Volume 9.8 fL (7.4-10.4); Monocytes # 0.4 10^3/uL (0.2-0.9); Monocytes % 6.2 %; Neutrophils # 3.7 10^3/uL (1.8-7.7); Neutrophils % 66.1 %; Nucleated Red Blood Cells % 0 %; Platelet Count 255 10^3/cmm (130-400); Red Blood Count 5.29 10^6/uL (4.1-5.3); Red Cell Distribution Width 12.5 % (12.1-15.1); White Blood Count 5.6 10^3/uL (4.0-10.0)
[2019-06-24 14:30] LABS: Urine Appearance Clear (CLEAR); Urine Color Yellow (Yellow)
--- NOTE | 2019-06-24 14:30 | ED_ITS ---
HPI - Psych General: Chief Complaint: Psychiatric Symptoms Stated Complaint: ABD PAIN AND NAUSEA Time Seen by Provider: 06/24/19 14:05 History of Present Illness: HPI Narrative: 34-year-old male states he took 40 some baby aspirin last night and swallowed 3 razor blades today and an attempt to kill himself. He has done this in the past. He denies any other attempts to injure himself. Review of Systems 2 Const: Denies: fever, chills, body aches, change in appetite, fatigue or malaise ENMT: Denies: throat pain, ear pain, nasal discharge or nasal congestion Card: Denies: chest pain, edema, shortness of breath on exertion or shortness of breath when lying down Resp: Denies: shortness of breath, productive cough or non-productive cough GI: Denies: abdominal pain, nausea, vomiting, vomiting blood, coffee grounds in vomit, diarrhea, constipation, bloating, blood in stool or black tarry stool : Denies: flank pain, painful urination, urinary frequency or urinary urgency Skin/Breast: Denies: rash or itching PFSH ED PFSH: Medical History Opiate misuse Surgical History History of appendectomy Social History Smoking and tobacco status: current every day smoker Physical Exam Const: COMMON NORMALS: no apparent distress GENERAL APPEARANCE: cooperative and comfortable ORIENTATION/CONSCIOUSNESS: Yes awake, Yes oriented to person, Yes oriented to place and Yes oriented to time HENMT: COMMON NORMALS: normocephalic, head/scalp atraumatic, hearing grossly normal bilaterally, external ears normal, EAC's normal, TM's normal bilaterally, nasal mucous membranes and turbinates normal, moist oral mucous membranes and oropharynx normal HEAD & SCALP: normocephalic and atraumatic NOSE: nasal mucous membranes and turbinates normal EXTERNAL EAR: Yes external ears normal EXTERNAL AUDITORY CANAL: EAC's normal TYMPANIC MEMBRANE: TM's normal bilaterally Eye: COMMON NORMALS: PERRL, EOMs intact bilaterally, conjunctivae normal and no scleral icterus CONJUNCTIVA: Yes conjunctivae normal PUPIL: Yes PERRL Neck/C-Spine: COMMON NORMALS: full ROM, no lymphadenopathy, supple and no JVD Lymph: LYMPHATIC: no lymphadenopathy noted and no lymphedema noted Resp: COMMON NORMALS: normal respiratory effort, no retractions, no use of accessory muscles and clear to auscultation bilaterally AUSCULTATION: clear to auscultation bilaterally Cardio: COMMON NORMALS: no JVD, regular rate, regular rhythm and no murmurs RATE: regular rate RHYTHM: regular rhythm GI: COMMON NORMALS: soft to palpation and no hepatosplenomegaly AUSCULTATION: Yes normoactive bowel sounds PALPATION: Yes soft, No tender, No guarding and Yes no hepatosplenomegaly Extremity: COMMON NORMALS: normal to inspection, normal capillary refill, no clubbing, cyanosis or edema, no calf tenderness and no pedal edema Neuro: SENSORIUM/ORIENTATION: Yes oriented to person, Yes oriented to place and Yes oriented to time Psych: THOUGHT CONTENT: Yes suicidality Skin: COMMON NORMALS: no rashes or lesions noted GENERAL SKIN EXAM: no rashes or lesions noted MDM - Psych Lab Data: Labs: Lab Results 06/24/19 06/24/19 06/24/19 Range/Units 14:05 14:13 14:13 WBC 5.6 (4.0-10.0) 10^3/ uL RBC 5.29 (4.1-5.3) 10^6/u L Hgb 15.2 (11.7-16.6) g/dL Hct 45.1 (42.0-52.0) % MCV 85.3 (80-94) fL MCH 28.7 (28.0-34.0) pg MCHC 33.7 (30.0-36.0) g/dL RDW 12.5 (12.1-15.1) % Plt Count 255 (130-400) 10^3/c mm MPV 9.8 (7.4-10.4) fL Neut % (Auto) 66.1 % Lymph % (Auto) 23.4 % [place] % (Auto) 6.2 % Eos % (Auto) 3.9 % Baso % (Auto) 0.4 % Neut # (Auto) 3.7 (1.8-7.7) 10^3/u L Lymph # (Auto) 1.3 (0.8-4.8) 10^3/u L [place] # (Auto) 0.4 (0.2-0.9) 10^3/u L Eos # (Auto) 0.2 (0.0-0.8) 10^3/u L Baso # (Auto) 0.0 (0.0-0.1) 10^3/u L Nucleated RBC % (a uto) 0 % Nucleated RBCs # 0.0 /100WBC Sodium 137 (136-145) mmol/L Potassium 3.9 (3.5-5.1) mmol/L Chloride 99 (98-107) mmol/L Carbon Dioxide 26 (22-29) mmol/L Anion Gap 15.9 (5-19) BUN 11 (6-20) mg/dL Creatinine 0.9 (0.7-1.2) mg/dL GFR Calculation 96.0 (90-130) mL/min Glucose 108 (65-115) mg/dL Calculated Osmolal ity 281 L (285-295) mOsm/k g Calcium 10.0 (8.5-10.5) mg/dL Total Bilirubin 0.4 (0.15-1.2) mg/dL AST 17 (0-40) U/L ALT 8 (0-41) U/L Alkaline Phosphata se 82 (40-130) IU/L Total Protein 7.1 (6.6-8.7) g/dL Albumin 4.9 (3.5-5.2) g/dL Globulin 2.2 (1.3-4.6) g/dL TSH 1.62 (0.27-4.20) uIU/ mL Urine Color Yellow (Yellow) Urine Appearance Clear (CLEAR) Urine pH 5 (5-7) Ur Specific Gravit y 1.025 (1.005-1.030) Urine Protein Neg (Negative) Urine Glucose (UA) Norm (Normal) Urine Ketones Negative (Negative) Urine Blood Neg (Negative) Urine Nitrate Negative (Negative) Urine Bilirubin Neg (NEGATIVE) Urine Urobilinogen Norm (Negative) mg/dL Ur Leukocyte Riya ase Negative (Negative) Salicylates < 0.3 L (3-10) mg/dL Acetaminophen < 5.0 L (10-30) ug/mL Ethyl Alcohol < 10 (0-10) mg/dL Discharge Plan Discharge Patient Disposition: Admitted As Inpatient Admit Provider: Jag Escobar Clinical Impression: Suicidal ideation, Cluster B personality disorder Condition: Stable Interventions: ED Discharge Assessment Last Done: 06/24/19 17:06 Discharge Date/Time: 06/24/19 17:07 Coding Level of Care Code ED Metal Moulder'S Assistant for Jordan Craft
[2019-06-24 14:31] LABS: Bilirubin Urine Neg (NEGATIVE); Blood Urine Neg (Negative); Glucose Urine UA Norm (Normal); Ketones Urine Negative (Negative); Leukocyte Esterase Urine Negative (Negative); Nitrate Urine Negative (Negative); Protein Urine Neg (Negative); Specific Gravity, Urine 1.025 (1.005-1.030); Urobilinogen Urine Norm (Negative); pH Urine 5 (5-7)
--- NOTE | 2019-06-24 14:32 | XRR_ITS ---
PROCEDURE INFORMATION: Exam: XR Chest, 2 Views Exam date and time: 06/24/2019 2:58 PM Age: 34 years old Clinical indication: Pain; Other: Swallowed possible razor blade; Additional info: Swalloed fb TECHNIQUE: Imaging protocol: XR of the chest Views: 2 views. COMPARISON: CR XR chest 1V portable [id number] 06/24/2019 2:08 PM FINDINGS: Lungs: Unremarkable. No consolidation. Pleural space: Unremarkable. No pleural effusion. No pneumothorax. Heart/Mediastinum: The radiopaque foreign body in the superior mediastinum has moved distally. There are now 3.9 cm long radiopaque foreign bodies in the left upper quadrant of the abdomen and likely in stomach. Bones/joints: Unremarkable. XR/XR chest 2V* [id number] IMPRESSION: There are metallic foreign bodies in the stomach.
[2019-06-24 14:48] LABS: Alanine Aminotransferase 8 U/L (0-41); Albumin Level 4.9 g/dL (3.5-5.2); Alkaline Phosphatase 82 IU/L (40-130); Anion Gap 15.9 (5-19); Aspartate Amino Transferase 17 U/L (0-40); Blood Urea Nitrogen 11 mg/dL (6-20); Carbon Dioxide 26 mmol/L (22-29); Chloride 99 mmol/L (98-107); Globulin 2.2 g/dL (1.3-4.6); Glucose 108 mg/dL (65-115); Osmolality Calculated 281 mOsm/kg (285-295); Potassium 3.9 mmol/L (3.5-5.1); Sodium 137 mmol/L (136-145); Thyroid Stimulating Hormone 1.62 uIU/mL (0.27-4.20); Total Bilirubin 0.4 mg/dL (0.15-1.2); Total Protein 7.1 g/dL (6.6-8.7)
[2019-06-24 14:49] LABS: Acetaminophen < 5.0 ug/mL (10-30); Alcohol Level < 10 mg/dL (0-10); Salicylate < 0.3 mg/dL (3-10)
--- NOTE | 2019-06-24 15:56 | P.CONIM_ITS ---
Providers/Reason For Consult Consulting Physican/Specialty*: Scott Butt MD Reason for Consult*: Swallowed foreign body Requesting Physcian: Dr. Haas Attending Physician: Dr. Escobar History of Present Illness History of Present Illness Chief Complaint: I swallowed razors History of present illness: Mr.Zachary Dickson is a 34 year old male with history of attempted suicide before, present to the ER today based on the fact that he swallowed 2 razors per his description around 11:30 PM yesterday night, and because of the repeated retching and vomiting his uncle advised him to come to the ER for further evaluation, which he came in,undergone x-rays of the chest and abdomen that showed: CXR There is a 3.7 cm metallic foreign body in the upper mediastinum. If there is desire for further evaluation, a CT scan could be performed. By a KUB that showed: As seen on the chest radiograph, there is a radiopaque foreign body in the upper left abdomen. There are probable surgical sutures in the right lower quadrant.Clinical correlation is advised. General surgery was consulted for further evaluation and potential intervention in the form of EGD. I was involved in patient's care back in October 2018 where he had allegedly swallowed a razor was observed due to the history of bleeding per rectum. I was able to evaluate the patient in the ER is hemodynamically stable and there is no evidence of hematemesis currently. Review of Systems General: Reports: 10 or more systems reviewed and unremarkable except in HPI and below Meds/Allergies Home Medications and Allergies Home Medications Medication Instructions Recorded Confirmed Type clonazepam 0.5 mg PO TID #90 tab 05/23/19 06/24/19 Rx mirtazapine 30 mg PO BEDTIME #30 tab 05/23/19 06/24/19 Rx nortriptyline 50 mg PO BEDTIME #30 cap 05/23/19 06/24/19 Rx olanzapine 5 mg PO TID #90 tab 05/23/19 06/24/19 Rx buprenorphine-naloxone [Suboxone] 2 - 8 film BUCCAL DAILY 06/24/19 06/24/19 History melatonin 2.5 mg PO DAILY 06/24/19 06/24/19 History Allergies Allergy/AdvReac Type Severity Reaction Status Date / Time mushroom Allergy Unknown Unknown Verified 06/24/19 16:22 escitalopram [From Lexapro] Allergy ALGY-Anaphy Verified 06/24/19 16:22 laxis NSAIDS (Non-Steroidal Allergy ADR-Abdominal Verified 06/24/19 16:22 Anti-Inflamma Pain venlafaxine [From Effexor] Allergy ALGY-Anaphy Verified 06/24/19 16:22 laxis PFSH Acute PFSH: Medical History Opiate misuse Surgical History History of appendectomy Social History Smoking and tobacco status: current every day smoker Vitals/I&O/Wt Last Vital Signs Temp 97.9 F 06/24/19 13:53 Pulse 115 H 06/24/19 13:53 Resp 16 06/24/19 14:15 BP 123/84 06/24/19 13:53 Pulse Ox 94 06/24/19 13:53 Weight last 48 hrs Weight 171 lb Physical Exam Narrative: EXAM NARRATIVE: Patient is conscious alert oriented X3 BMI Head and neck examination PERRLA no masses no cervical lymphadenopathy no jaundice Cardiac examination audible S1-S2 no murmurs no gallops no arrhythmias Chest is clear bilateral,abscence of Rhonchi or wheezes,no surgical emphysema Abdomen nontender except mildly in the epigastric region nondistended soft no organomegaly guarding or rigidity/no signs of peritonitis Extremities no cyanosis no clubbing no edema A&P Assessment and plan (1) Swallowed foreign body: Plan of care; After thorough history and physical examination and reviewing the chart, plan to perform an urgent diagnostic esophagogastroduodenoscopy and possible explantation of foreign bodies operating room due to potential airway compromise. Informed consent per chart were,Indications, risks, benefits, and alternatives were all discussed with the patient and did agree to proceed. I did explain for the patient that there is a possibility even after going with the diagnostic EGD that the razors would have passed the stomach that point it would be followed up on by serial KUBs daily. Patient will be admitted to psych Status: Acute Code(s): T18.9XXA - Foreign body of alimentary tract, part unspecified, initial encounter Consult Attestations Medical Necessity Statement: Per psychiatry service Time Spent in Patient Care: 16 - 35 minutes (>than 50% of time spent in counselling and/or direct pt care on unit) . Coding Level of Care Code Acute S[employer] Portable Machine for Jordan Craft Diagnoses Swallowed foreign body T18.9XXA
--- NOTE | 2019-06-24 16:38 | ANES.PREANE2 ---
Pre-Anesthetic Assessment Pre-Anesthetic Assessment: Height/Weight: Height 1.8 m Weight 77.564 kg Temp Pulse Resp BP Pulse Ox 97.9 F 115 H 16 123/84 94 06/24/19 13:53 06/24/19 13:53 06/24/19 14:15 06/24/19 13:53 06/24/19 13:53 Preop Diagnosis: Swallowed foreign bodies Proposed Procedure: Operation Date: 06/24/19 16:10 Proposed Procedures p EGD(Not Applicable) - Scott Butt MD Last intake: Intake Last Liquid Date 06/24/19 Last Liquid Time 13:00 Last Solid Date 06/22/19 Social: Social History: Alcohol and Tobacco Exam: Pre-Anes Outpt Exam: alert, oriented x 3, clear to auscultation bilaterally and regular rate & rhythm Airway: Submandibular: WNL Cervical ROM: WNL MP: 2 Dentition: Other (teeth ok) History/ROS: No significant history except as noted Pulmonary: Pulmonary: None reported CV/HEM: CV/HEM: None reported : : None reported Hepatic: Hepatic: None reported GI: Comments: Ulceritive colitis Metabolic: Metabolic: None reported Musc/skel: Musc/skel: None reported Neuropsych: Comments: schizophrenia Anesthetic Plan: ASA status: 2E Anesthesia: Anesthesia Evaluation and MAC Risk of > 500 ml blood loss (7ml/kg in children): No PFSH Anesthesia PFSH: Medical History Opiate misuse Surgical History History of appendectomy Social History Smoking and tobacco status: current every day smoker Data Anesthesia CBC & Chem 7: 06/24/19 14:13 06/24/19 14:13 Other Labs: Laboratory Results - last 48 hr 06/24/19 06/24/19 06/24/19 14:05 14:13 14:13 WBC 5.6 RBC 5.29 Hgb 15.2 Hct 45.1 MCV 85.3 MCH 28.7 MCHC 33.7 RDW 12.5 Plt Count 255 MPV 9.8 Neut % (Auto) 66.1 Lymph % (Auto) 23.4 [place] % (Auto) 6.2 Eos % (Auto) 3.9 Baso % (Auto) 0.4 Neut # (Auto) 3.7 Lymph # (Auto) 1.3 [place] # (Auto) 0.4 Eos # (Auto) 0.2 Baso # (Auto) 0.0 Nucleated RBC % (auto) 0 Nucleated RBCs # 0.0 Sodium 137 Potassium 3.9 Chloride 99 Carbon Dioxide 26 Anion Gap 15.9 BUN 11 Creatinine 0.9 GFR Calculation 96.0 Glucose 108 Calculated Osmolality 281 L Calcium 10.0 Total Bilirubin 0.4 AST 17 ALT 8 Alkaline Phosphatase 82 Total Protein 7.1 Albumin 4.9 Globulin 2.2 TSH 1.62 Urine Color Yellow Urine Appearance Clear Urine pH 5 Ur Specific [place] 1.025 Urine Protein Neg Urine Glucose (UA) Norm Urine Ketones Negative Urine Blood Neg Urine Nitrate Negative Urine Bilirubin Neg Urine Urobilinogen Norm Ur Leukocyte Esterase Negative Salicylates < 0.3 L Acetaminophen < 5.0 L Ethyl Alcohol < 10 Cardiac Studies: No Data to Display
--- NOTE | 2019-06-24 17:55 | XRR_ITS ---
PROCEDURE INFORMATION: Exam: XR Abdomen, 1 View Exam date and time: 06/24/2019 5:56 PM Age: 34 years old Clinical indication: Prior surgery; Surgery date: Post-operative (0-2 days); Patient HX: Post op fb removal; Additional info: Post explantation of foerighn bodies from stomach TECHNIQUE: Imaging protocol: XR of the abdomen. Views: Frontal supine view of the abdomen. 1 View. COMPARISON: CR XR KUB [id number] 06/24/2019 2:09 PM FINDINGS: Gastrointestinal tract: There is bowel gas without dilation. Bones/joints: Unremarkable. Soft tissues: There is a metallic foreign body projecting over the inferior left hemithorax which is likely outside of the patient. No other concerning foreign bodies are identified. XR/XR KUB portable [id number] IMPRESSION: There is a metallic foreign body projecting over the inferior left hemithorax which is likely outside of the patient. No other concerning foreign bodies are identified.
--- NOTE | 2019-06-24 18:06 | SUR.PHASEI ---
1801 PATIENT TO PACU AT THIS TIME FROM OR. RR EVEN AND UNLABORED. PLACED ON 3L NC O2, SPO2 100%. PATIENT NOTED TO BE AGITATED. SECURITY AT BEDSIDE.
[2019-06-24] MEDS: fentaNYL 50 mcg/mL INJ 2mL IVP ×2 (18:11→18:24)
--- NOTE | 2019-06-24 18:43 | SUR.PHASEI ---
1836 PATIENT TO NPU VIA W/C AT THIS TIME. RR EVEN AND UNLABORED. PWD. A/OX3. SECURITY PRESENT FOR TRANSPORT.
[2019-06-24] MEDS: OLANZapine 10 mg TABLET 20 MG PO (22:28)
[2019-06-24] MEDS: doxepin 10 mg Capsule PO (22:28)
[2019-06-24] MEDS: nortriptyline 25 mg Capsule PO (22:28)
[2019-06-24] MEDS: mirtazapine 30 mg Tablet PO (22:28)
[2019-06-24] MEDS: lithium carbonate ER 450 mg Tablet 900 MG PO (22:28)
--- NOTE | 2019-06-24 22:28 | PC.NURSE ---
PT REFUSED HS PEPCID WHEN OFFERED, BUT DID TAKE HS PAMELOR, REMERON, DOXEPIN, ZYPREXA, AMBIEN, AND LITHIUM WHEN OFFERED.
[2019-06-24] MEDS: nicotine 2 mg Gum BUCCAL (23:27)
--- NOTE | 2019-06-24 23:36 | PC.NURSE ---
Addendum entered by Agatha Toney 06/25/19 05:14: Admission Note Original Note: 34 y/o WM adm to NPU from PACU. pt had increased depression, become suicidal, reports took over 40 baby aspirin, and swallowed 3 razor blades. These were removed prior to pt coming to NPU. Pt is familiar to the unit, seems pleased to be here. Social with staff and peers. Denies SI/HI/AVH at this time. verbalizes I think my medication needs adjusted. Denies any c/o at this time. continue to monitor.
[2019-06-25 06:13] VITALS: BP 95/62; PULSE 71; RESP 17; TEMP 36.4; O2SAT 97
[2019-06-25 06:22] LABS: H. Pylori / CLO Test Negative
[2019-06-25] MEDS: phenytoin ER 100 mg Capsule 200 MG PO ×2 (09:05→17:06)
[2019-06-25] MEDS: fluoxetine 20 mg Capsule PO (09:05)
[2019-06-25] MEDS: hyDROXYzine 25 mg Capsule 50 MG PO ×3 (09:05→20:57)
[2019-06-25] MEDS: buprenorphine-naloxone 4-1 mg Film SUBLINGUAL (09:06)
[2019-06-25] MEDS: CLONazepam 0.5 mg Tablet PO ×2 (09:09→17:06)
--- NOTE | 2019-06-25 09:09 | PC.NURSE ---
Addendum entered by Selene Mercado LPN 06/25/19 09:49: MEDICATION EFFECTIVE. NO FURTHER C/O ANXIETY. Original Note: PRN KLONOPIN KLONOPIN 0.5MG PO PER PATIENT C/O ANXIETY. WILL CONTINUE TO MONITOR FOR MEDICATION EFFECTIVENESS.
--- NOTE | 2019-06-25 10:05 | P.PN_ITS ---
Subjective Subjective: Interval history: Patient overall is doing well and tolerating p.o. intake Postprocedure KUB showed no intracorporeal foreign bodies Vitals/I&O/Wt Last Vital Signs Temp 97.6 F 06/25/19 06:13 Pulse 71 06/25/19 06:13 Resp 17 06/25/19 06:13 BP 95/62 06/25/19 06:13 Pulse Ox 97 06/25/19 06:13 06/24/19 06/25/19 06/25/19 22:59 06:59 14:59 Intake Total 0 / 0 Output Total 0 / 0 Balance 0 / 0 Weight last 48 hrs Weight 171 lb Physical Exam Narrative: EXAM NARRATIVE: Patient is conscious alert oriented X3 BMI 24 Head and neck examination PERRLA no masses no cervical Abdomen nontender nondistended soft no organomegaly guarding or rigidity/no signs of peritonitis Data : 06/24/19 14:13 06/24/19 14:13 A&P Assessment and plan (1) Swallowed foreign body: From general surgery standpoint of view advance diet as tolerated PPI therapy Education and assurance All questions have been answered and all concerns have been addressed to patient's satisfaction. Thank you for consulting general surgery to participate taking care Status: Resolved Code(s): T18.9XXA - Foreign body of alimentary tract, part unspecified, initial encounter Attestations Medical Necessity Statement*: Per psych service Time Spent in Patient Care: 16 - 35 minutes (>than 50% of time spent in counselling and/or direct pt care on unit) . Coding Level of Care Code Acute Cable Installer Repairer Helper for g Fwd Diagnoses Swallowed foreign body T18.9XXA
[2019-06-25] MEDS: nicotine 2 mg Gum BUCCAL ×2 (11:09→18:31)
--- NOTE | 2019-06-25 11:25 | P.HP_ITS ---
Providers/Chief Complaint Admitting Physician: Jag Escobar MD Chief Complaint: ABD PAIN AND NAUSEA HPI NPU History of Present Illness Shayan Dickson is a 34 year old male who presents today reporting that he is doing okay. He reports that his Zyprexa was discontinued, but he could give no explanation for why that was the case. We discussed his repeat behavior from October of last year which was swallowing the ends of a couple BIC razors, which had already been used, and were fairly dull in this reported suicide attempt. He could not move away from the fact that it was a real and valid attempt and not some kind of gesture. He reported that he thought that if he took those that they would slice him but to be clear these were not actual razorblades that were open. This was little plastic tops of cheap razors that had double blades in them, but they are kind of contained in the plastic so there is some risk, but not extreme risk. The surgeon went in and took them out and had them sent away for testing. We discussed the fact that he does have intellectual disability within special education classes in school, has limited functioning in that way. He continues to live with his uncle and his five dogs. He reports that he will never do this thing with the razors again. We talked about the fact that if he did in fact succeed, that his dogs would be left alone. He reported that he thought about that, but there seemed to be limited connectivity. We reviewed his most recent psychiatric evaluation here and he denied any substantive changes in the history or psychosocial circumstances. Per recent [facility] [place]17/[place]: HPI NPU History of Present Illness Chief complaint: the voices are so bad that I'm going to kill myself. History of present illness: Shayan Dickson is a 34 year old male who tells an undocumented fairly reasonable story of a life lived suffering auditory hallucinations to varying degrees. When he is doing well, he will hear muttering voices that do not cause him a great deal of difficulty. He states that he seldom is free of the voices. HE deons not report taking medication for this problem on a long-term or regular basis. 3 months ago, the voices began getting worse. He is has no theory as to why they have gotten worse. 3 weeks ago, they began getting intrusive to the point where he was willing to end his life just to free himself from the torture from these voices. He hears a number of different voices. He is able to interpret who they are. They are from important people in his life. These include a woman that he knows and Her boyfriend, his stepbrother and his . they Say demeaning things in a very loud manner. They tell him that he should and they tell him how he should kill himself. in spite of having struggled with during much of his life, he cannot give any guidance as to what interventions have been helpful. He said that he took lithium for a while and it was quite helpful. However it stopped working. It is noted that he was hospitalized here in October 2018 and was discharged on a combination of Suboxone, Zyprexa, and citalopram. He can give no assessment as to whether the Zyprexa helped him with his voices. He says that if the voices are reduced, he will no longr be suicidal. He is ambivalent about symptoms of depression. He says that he does not do anything enjoyable and simply passes this time when his phone and taking care of animals around his arm. He reports good sleep. He has no specific suicide plan this time. He said suicide thoughts were proceeded by the worsening of the voices. His urine drug screen is negative. He is actively taking the Suboxone and receives it from an outpatient therapist. However he has not continued his medications otherwise from discharge in October 2018. Mental health history: history of this patient was very difficult to acquire. He talks very rapidly and in the low mumbling fashion. His thoughts are mildly disorganized.he reports that originally he grew up in [place] and that at one point he left a rehabilitation program there and moved to [place]. He was only in [place] for 3 months when there were some financial difficulties and he came to the [facility] area in 2010. He gives no further history regarding mental health care. It is noted that he can give no advisement regarding any other medication trials that have had any effect positive for negative on his auditory hallucinations. notes from his admission to this unit in October 2018: 11/13/2018 Shayan presents today reporting that the situation with his razor blade centered around his loss of his fianc?e. He reports that his significant other had committed suicide about 3 days shy of 2 years of when he made this suicide attempt before admission. He reports that he was feeling very low without feeling a clear sense of relief. And he had read online that he swallowed a razor blade that it would go through certain parts and because it was internal organs you would not feel it as it was slicing through things and that he would bleed out in his sleep. He reports that when he woke up and was alive but had a rectal bleeding he got really anxious and that when he came to the hospital. He is passed the razor blade now and at this point he reports that he is feeling better and more optimistic. With his first day on the psychiatric unit we discussed the fact that we needed to observe him for a couple of days to get a sense of where he really is prior to being comfortable with discharge. We had filed a 21-day hold paperwork but were able to negotiate and get an agreement that he will work with us over the next few days with a plan for discharge at the beginning of the week. Hospital Course: Shayan presented to the unit after being in the ICU and followed by surgery secondary to the ingestion of a razor blade or at least razor blade containing item from the head of a razor. After being followed until the object had been defecated since they were unable to get it by surgical means he was transferred to the NPU. After he woke up alive he reports that he got himself to the hospital for help and reports that he did not have any lethality after awaking and felt a desire to get help and not continue with self-injurious suicidal behaviors. So after a few days in the ICU he spent a few days in the NPU where he was observed and each day denied any lethality and a desire to go home and continue with his life. His medications were continued. Once he got to the NPU he acclimated to the individual, group and milieu therapies. While he was in the hospital he had routine laboratory studies which were within normal limits except for a few outliers. Those can be seen below. He also had a general medical evaluation this was within normal limits and revealed no acute processes except for the issue with the intentional ingestion. At the time of discharge his mood had improved, his lethality had resolved and he was sleeping better. He endorsed the plan to take his medication as prescribed, continue with his recovery oriented outpatient treatments and abstain from drugs of abuse as well as self-injurious and suicidal behaviors. He had obtained all the benefits he could get from the inpatient unit so he was discharged. Social history:the patient is currently supporting himself through his disability payments. He lives with uncle who apparently has a farm. He spends much of his time helping his uncle with daily activities around the farm such as feeding animals and taking care of the general grounds. He engages in no enjoyable activities and largely spends his time playing on his phone. His uncle apparently is advanced in age and is concerned about Shayan's well-being as the uncle's health declines. Shayan's uncle has advised him to go to a rehabilitation program and get off the Suboxone so that eventually he can be p laced in a usp or residential care facility. Legal history:there is no history in the [place] public record of incarcerations or felony arrests. Past medical history: Allergies Escitalopram. NSAIDS (NON-STEROIDAL ANTI-INFLAMMA. Venlafaxine. SOCIAL HX: Heavy tobacco smoker (cigarette)- 1 pack per day. No alcohol use or drug use. No recent travel. PROBLEMS: Ulcerative Colitis. GI Bleeding. Depression. Bipolar Disorder. Colitis. ADDITIONAL SURGERIES: Appendectomy. . Mental Status Exam: the patient is an alert interpersonally engaged male. He is believed to be a reliable informant to the best of his ability as information that is provided is internally consistent and consistent with that in the chart. Appearance: hygiene is fair; no gross neurological deficits., gait is unremarkable; AIMS=0 Speech: Speech is she is rapid with indistinct enunciation with frequently makes some of the information difficult to assess. Thought processes: Thought processes are abstract. Judgment is adequate for safety. Associations: intact Psychotic processes: There is no indication of guarding or paranoia. There is no attention to the internal stimuli. auditory hallucinations are reported as above. He denied the presence of visual hallucinations. Judgment: Insight is good. Problem solving skills are adequate for safety. Orientation: The patient is oriented to person, place time and situation. Memory: no deficits noted in immediate, intermediate, or remote spheres. Attention: The patient is alert and interpersonally engaged. Language: Verbalizations are coherent. Fund of knowledge: Fund of knowledge is adequate. Affect/Mood: Affect is consistent with a depressed mood. he reported vague suicidal ideation without intent or plan. Affective range good Psychosis: perception unimpaired despite intrusive auditory hallucinations that he is experiencing.; reality testing intact. Diagnoses: schizophrenia?undifferentiated, acute Assessment:this is a difficult situation given that he has a long-standing history of schizophrenia but can give no feedback as to what medications have been tried without any success in the past. At this point, we will continue the Zyprexa 20 mg at bedtime and also provide when necessary dosing during the day with Geodon as needed for auditory hallucinations. He will continue with Suboxone and the Celexa. We will discuss the feasibility of placement in a rehabilitation program with office services clerk. If this is a reasonable p ossibility, tapering some from Suboxone will be discussed. Meds NPU Home Medications Medication Instructions Recorded Confirmed Type buprenorphine-naloxone [Suboxone] 2 - 8 film BUCCAL DAILY 06/24/19 06/24/19 History melatonin 2.5 mg PO DAILY 06/24/19 06/24/19 History Allergies Allergy/AdvReac Type Severity Reaction Status Date / Time mushroom Allergy Unknown Unknown Verified 06/24/19 16:22 escitalopram [From Lexapro] Allergy ALGY-Anaphy Verified 06/24/19 16:22 laxis NSAIDS (Non-Steroidal Allergy ADR-Abdominal Verified 06/24/19 16:22 Anti-Inflamma Pain venlafaxine [From Effexor] Allergy ALGY-Anaphy Verified 06/24/19 16:22 laxis PFSH NPU PFSH: Medical History Opiate misuse Surgical History History of appendectomy Social History Smoking and tobacco status: current every day smoker Mental Status Exam MSE Comments: This is a well-nourished, overweight, white male, with adequate dress, grooming, and limited eye contact. No abnormal movements except for mild psychomotor retardation. Cooperative with exam in no acute distress. Speech was slightly decreased rate and volume and feminine. Mood described as better than yesterday; affect congruent. Thought process, organized. Thought content: patien t denied any suicidal or homicidal ideation, there were no delusions reported or noted, patient denied any auditory or visual hallucinations. Attention, concentration, and memory appear intact but were not formally tested. He is alert and oriented times three. Insight and judgment are limited. Intellectual disability impaired. Vitals/I&O/Wt Last Vital Signs Temperature 97.6, pulse 71, respirations 17, pulse ox 97%, blood pressure 95/62. Weight last 48 hrs Weight 77.564 kg Home Medications clonazepam 0.5 mg PO TID #90 tab 05/23/19 [Rx Confirmed 06/24/19] mirtazapine 30 mg PO BEDTIME #30 tab 05/23/19 [Rx Confirmed 06/24/19] nortriptyline 50 mg PO BEDTIME #30 cap 05/23/19 [Rx Confirmed 06/24/19] olanzapine 5 mg PO TID #90 tab 05/23/19 [Rx Confirmed 06/24/19] buprenorphine-naloxone [Suboxone] 2 - 8 film BUCCAL DAILY 06/24/19 [History Confirmed 06/24/19] melatonin 2.5 mg PO DAILY 06/24/19 [History Confirmed 06/24/19] Active Medications Buprenorphine/Naloxone (Suboxone 4-1 Mg) 2 each SUBLINGUAL BID [facility] Last Admin: 06/25/19 19:22 Dose: 2 each Documented by: Clonazepam (Klonopin) 0.5 mg PO TID PRN PRN Reason: ANXIETY Last Admin: 06/25/19 17:06 Dose: 0.5 mg Documented by: Doxepin HCl (Sinequan) 10 mg PO BEDTIME [facility] Last Admin: 06/25/19 20:57 Dose: 10 mg Documented by: Famotidine (Pepcid Tab) 40 mg PO BEDTIME [facility] Last Admin: 06/25/19 20:57 Dose: 40 mg Documented by: Fluoxetine HCl (Prozac) 0 mg PO DAILY [facility] Last Admin: 06/25/19 09:05 Dose: 60 mg Documented by: Hydroxyzine Pamoate (Vistaril) 50 mg PO TID [facility] Last Admin: 06/25/19 20:57 Dose: 50 mg Documented by: [place] Carbonate (Eskalith Er) 900 mg PO BEDTIME [facility] Last Admin: 06/25/19 20:56 Dose: 900 mg Documented by: Mirtazapine (Remeron) 30 mg PO BEDTIME [facility] Last Admin: 06/25/19 20:57 Dose: 30 mg Documented by: Nicotine (Nicoderm 21 Mg Patch) 1 patch TRANSDERMA DAILY [facility] Last Admin: 06/25/19 10:10 Dose: Not Given Documented by: Nicotine Polacrilex (Nicorette) 2 mg BUCCAL Q2H PRN PRN Reason: NICOTINE CRAVINGS Last Admin: 06/26/19 06:44 Dose: 2 mg Documented by: Nortriptyline HCl (Pamelor) 25 mg PO BEDTIME NEFTALY Last Admin: 06/25/19 20:57 Dose: 25 mg Documented by: Olanzapine (Zyprexa) 20 mg PO BEDTIME NEFTALY Last Admin: 06/25/19 20:57 Dose: 20 mg Documented by: Ondansetron HCl (Zofran) 4 mg PO ONCE PRN PRN Reason: WITHDRAWAL Phenytoin (Dilantin) 200 mg PO BID [facility] Last Admin: 06/25/19 17:06 Dose: 200 mg Documented by: Zolpidem Tartrate (Ambien) 10 mg PO BEDTIME [facility] Last Admin: 06/25/19 20:57 Dose: 10 mg Documented by: Data NPU : 06/24/19 14:13 06/24/19 14:13 A&P Assessment and plan (1) Bipolar depression: This is a 34 year old, white male, with history of bipolar disorder, intellectual disability, opiate use disorder, and intellectual disability, mild, who presents after a repeat ingestion of BIC razor tops with the ability this time to have the surgeon go in and get them, when last time they had gotten into his colon and had to be observed in their exit, who presents endorsing that he was suicidal, but feels better now. Continue current medication. Consider restarting Zyprexa after reviewing the history to see if I could tell why it was discontinued. Encourage individual, group, and milieu therapy. Continue q 15-minute checks for safety. Encourage outpatient follow-up and CBT or DBT or behavioral therapy. Status: Acute (2) Suicidal ideation: Status: Acute (3) Swallowed foreign body: Status: Resolved Involuntary Hold Information 96 Hour Hold: 96 Hour Involuntary Admission: No 96 Hour Hold Ending Date: 05/22/19 96 Hour Hold Ending Time: 11:00 Attestations NPU Medical Necessity Statement*: Inpatient hospitalization is medically necessary and the clinically appropriate intervention at this time. He will be in the hospital for over two midnights. We will monitor medications and adjust as ind icated. Likely length of stay two to four days. Coding Level of Care Code Acute Director Of Early Childhood Education for Chg Fwd Diagnoses Bipolar depression F31.9 Suicidal ideation R45.851 Swallowed foreign body T18.9XXA
[2019-06-25 13:12] VITALS: BP 91/53; PULSE 87; RESP 20; TEMP 36.5; O2SAT 99
[2019-06-25 13:14] VITALS: BP 91/53; PULSE 87; RESP 20; TEMP 36.5; O2SAT 99
--- NOTE | 2019-06-25 17:06 | PC.NURSE ---
Addendum entered by Selene Mercado LPN 06/25/19 18:00: MEDICATION EFFECTIVE. PATIENT IS LYING IN BED RESTING. Original Note: PRN KLONOPIN KLONOPIN 0.5MG PO PER PATIENT C/O ANXIETY. WILL CONTINUE TO MONITOR FOR MEDICATION EFFECTIVENESS.
[2019-06-25] MEDS: buprenorphine-naloxone 4-1 mg Film 2 EACH SUBLINGUAL (19:22)
--- NOTE | 2019-06-25 19:22 | PC.NURSE ---
saboxone given at this time.
[2019-06-25] MEDS: lithium carbonate ER 450 mg Tablet 900 MG PO (20:56)
[2019-06-25] MEDS: nortriptyline 25 mg Capsule PO (20:57)
[2019-06-25] MEDS: mirtazapine 30 mg Tablet PO (20:57)
[2019-06-25] MEDS: famotidine 20 mg Tablet 40 MG PO (20:57)
[2019-06-25] MEDS: doxepin 10 mg Capsule PO (20:57)
[2019-06-25] MEDS: OLANZapine 10 mg TABLET 20 MG PO (20:57)
--- NOTE | 2019-06-25 20:57 | PC.NURSE ---
HS MEDS DOXEPIN, PEPCID, VISTERIL, LITHIUM, REMERON, PALELOR, ZYPREXA AND AMBIEN AT THIS TIME.
[2019-06-25 21:56] VITALS: BP 99/62; PULSE 93; RESP 18; TEMP 36.3; O2SAT 93
[2019-06-26 06:00] VITALS: BP 110/66; PULSE 63; RESP 18; TEMP 36.8; O2SAT 96
[2019-06-26] MEDS: nicotine 2 mg Gum BUCCAL ×4 (06:44→19:48)
--- NOTE | 2019-06-26 06:44 | PC.NURSE ---
nicorette gum given at this time per pt request.
[2019-06-26] MEDS: phenytoin ER 100 mg Capsule 200 MG PO ×2 (09:14→17:50)
[2019-06-26] MEDS: buprenorphine-naloxone 4-1 mg Film 2 EACH SUBLINGUAL ×2 (09:15→17:50)
[2019-06-26] MEDS: hyDROXYzine 25 mg Capsule 50 MG PO ×3 (09:15→20:31)
[2019-06-26] MEDS: fluoxetine 20 mg Capsule PO (10:00)
[2019-06-26] MEDS: CLONazepam 0.5 mg Tablet PO ×2 (10:01→19:48)
[2019-06-26 14:00] VITALS: BP 117/78; PULSE 89; RESP 18; TEMP 36.8; O2SAT 95
--- NOTE | 2019-06-26 14:13 | P.PN_ITS ---
Subjective NPU Subjective: Interval history: The patient presents today reporting that he is feeling a little better and that the medication is helpful, and he is feeling optimistic that he could go back home soon. He reports again that he will never do what he has done twice now with the razor cartridges. He is still unable to really articulate the reasons or drive to do that but we have been spending a lot of time talking with him about the things that are worth living for, like his pets and things like that, and that has proven effective, at least in this environment. He reports that he is sleeping a little better and eating alright. He is going to reach out to his uncle and see when his uncle can pick him up. Mental Status Exam MSE Comments: This is a slightly overweight, white male, with adequate dress and grooming, and increasing eye contact. No abnormal movements, except for psyc homotor retardation. Cooperative with exam in no acute distress. Speech was decreased rate and volume and effeminate. Mood described as a little better; affect still subdued. Thought process, organized. Thought content: patient denied any suicidal or homicidal ideation, there were no delusions reported or noted, patient denied any auditory or visual hallucinations. Attention, concentration, and memory appeared intact but were not formally tested. He is alert and oriented times three. Insight and judgment are limited but improving. Intellectual ability is limited. Vitals/I&O/Wt Last Vital Signs Temperature 98.2, pulse 63, respirations 18, pulse ox 96%, blood pressure 110/66. Data NPU : 06/24/19 14:13 06/24/19 14:13 A&P Additional A&P Information (1) Bipolar depression: This is a 34 year old, white male, with history of bipolar disorder, intellectual disability, opiate use disorder, and intellectual disability, mild, who presents after a repeat ingestion of BIC razor tops with the ability this time to have the surgeon go in and get them, when last time they had gotten into his colon and had to be observed in their exit, who presents endorsing that he was suicidal, but feels better now. Continue current medication. Continue Zyprexa, increase Prozac to 60 and start propranolol 20 mg by mouth 3 times a day Encourage individual, group, and milieu therapy. Continue q 15-minute checks for safety. Encourage outpatient follow-up and CBT or DBT or behavioral therapy. (2) Suicidal ideation: (3) Swallowed foreign body: Involuntary Hold Information 96 Hour Hold: 96 Hour Involuntary Admission: No 96 Hour Hold Ending Date: 05/22/19 96 Hour Hold Ending Time: 11:00 Attestations NPU Medical Necessity Statement*: Inpatient hospitalization is medically necessary and the clinically appropriate intervention at this time. He will be in the hospital for over two midnights. We will monitor medications and adjust as indicated. Likely length of stay two to four days. Coding Level of Care Code Acute Radiological Defense Officer for [employer]
[2019-06-26] MEDS: doxepin 10 mg Capsule PO (20:31)
[2019-06-26] MEDS: mirtazapine 30 mg Tablet PO (20:31)
[2019-06-26] MEDS: nortriptyline 25 mg Capsule PO (20:31)
[2019-06-26] MEDS: famotidine 20 mg Tablet 40 MG PO (20:31)
[2019-06-26] MEDS: lithium carbonate ER 450 mg Tablet 900 MG PO (20:31)
[2019-06-26] MEDS: OLANZapine 10 mg TABLET 20 MG PO (20:32)
[2019-06-26 20:41] VITALS: BP 100/68; PULSE 88; RESP 20; TEMP 36.6; O2SAT 96
--- NOTE | 2019-06-26 21:32 | PC.NURSE ---
At 1948, pt was given PRN meds klonopin and nicorette gum per pt request. At 2030, pt was given scheduled HS meds Doxepin, Pepcid, Visteril, Wyatt, Remeron, Zyprexa and Ambien.
[2019-06-27 06:00] VITALS: BP 101/67; PULSE 80; RESP 19; TEMP 36.6; O2SAT 97
[2019-06-27] MEDS: CLONazepam 0.5 mg Tablet PO ×2 (07:47→12:50)
[2019-06-27] MEDS: nicotine 2 mg Gum BUCCAL ×3 (07:48→21:51)
[2019-06-27] MEDS: fluoxetine 20 mg Capsule PO (08:31)
[2019-06-27] MEDS: phenytoin ER 100 mg Capsule 200 MG PO ×2 (08:31→17:33)
[2019-06-27] MEDS: hyDROXYzine 25 mg Capsule 50 MG PO ×3 (08:31→20:44)
[2019-06-27] MEDS: buprenorphine-naloxone 4-1 mg Film 2 EACH SUBLINGUAL ×2 (08:32→17:34)
--- NOTE | 2019-06-27 12:17 | PC.SOCIAL ---
Important Medicare Message Reviewed previously signed at admission Important Medicare Message. Patient verbalizes understanding that he has right to appeal discharge if he chooses and is aware of phone number to call. Updated copy to patient and in chart.
--- NOTE | 2019-06-27 13:56 | PM.NPN ---
Subjective NPU Subjective: Interval history: Shayan presents today reporting that he is feeling better than he has been for a while. He reports that he was able to reach out to his alcohol as we have discussed, and his uncle reports that he will come pick him up tomorrow. He continues to lack real insight into these episodes of this parasternal silo behavior but he does report improvement in his overall mood. He reports eating and sleeping better. Mental Status Exam MSE Comments: This is a slightly overweight, white male, with adequate dress and grooming, and increasing eye contact. No abnormal movements, except for psychomotor retardation. Cooperative with exam in no acute distress. Speech was less decreased rate and volume and effeminate. Mood described as a better; affect less subdued. Thought process, organized. Thought content: patient denied any suicidal or homicidal ideation, there were no delusions reported or noted, patient denied any auditory or visual hallucinations. Attention, concentration, and memory appeared intact but were not formally tested. He is alert and oriented times three. Insight and judgment are limited but improving. Intellectual ability is limited. Vitals/I&O/Wt Last Vital Signs Temp 97.6 F 06/27/19 20:17 Pulse 83 06/27/19 20:17 Resp 19 H 06/27/19 20:17 BP 97/61 06/27/19 20:17 Pulse Ox 97 06/27/19 20:17 Data NPU : 06/24/19 14:13 06/24/19 14:13 A&P Additional A&P Information (1) Bipolar depression: This is a 34 year old, white male, with history of bipolar disorder, intellectual disability, opiate use disorder, and intellectual disability, mild, who presents after a repeat ingestion of BIC razor tops with the ability this time to have the surgeon go in and get them, when last time they had gotten into his colon and had to be observed in their exit, who presents endorsing that he was suicidal, but feels better now. Continue current medication. Encourage individual, group, and milieu therapy. Continue q 15-minute checks for safety. Encourage outpatient follow-up and CBT or DBT or behavioral therapy. (2) Suicidal ideation: (3) Swallowed foreign body: Involuntary Hold Information 96 Hour Hold: 96 Hour Involuntary Admission: No 96 Hour Hold Ending Date: 05/22/19 96 Hour Hold Ending Time: 11:00 Attestations NPU Medical Necessity Statement*: Inpatient hospitalization is medically necessary and the clinically appropriate intervention at this time. He will be in the hospital for over two midnights. We will monitor medications and adjust as indicated. Likely length of stay 1-3 days. Tentative plan for discharge tomorrow. 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
[2019-06-27 14:00] VITALS: BP 111/72; PULSE 93; RESP 20; TEMP 36.7; O2SAT 95
[2019-06-27] MEDS: acetaminophen 325 mg Tablet 650 MG PO (15:37)
[2019-06-27] MEDS: propranolol 20 mg Tablet PO (18:20)
[2019-06-27 20:17] VITALS: BP 97/61; PULSE 83; RESP 19; TEMP 36.4; O2SAT 97
[2019-06-27] MEDS: famotidine 20 mg Tablet 40 MG PO (20:43)
[2019-06-27] MEDS: OLANZapine 10 mg TABLET 20 MG PO (20:43)
[2019-06-27] MEDS: nortriptyline 25 mg Capsule PO (20:43)
[2019-06-27] MEDS: doxepin 10 mg Capsule PO (20:44)
[2019-06-27] MEDS: mirtazapine 30 mg Tablet PO (20:44)
[2019-06-27] MEDS: lithium carbonate ER 450 mg Tablet 900 MG PO (20:44)
[2019-06-28 06:00] VITALS: BP 97/61; PULSE 88; RESP 20; TEMP 36.8; O2SAT 100
[2019-06-28] MEDS: nicotine 2 mg Gum BUCCAL ×2 (07:26→11:04)
[2019-06-28] MEDS: phenytoin ER 100 mg Capsule 200 MG PO (08:06)
[2019-06-28] MEDS: fluoxetine 20 mg Capsule 60 MG PO (08:07)
[2019-06-28] MEDS: hyDROXYzine 25 mg Capsule 50 MG PO ×2 (08:08→14:18)
[2019-06-28] MEDS: buprenorphine-naloxone 4-1 mg Film 2 EACH SUBLINGUAL (08:09)
[2019-06-28] MEDS: CLONazepam 0.5 mg Tablet PO (08:24)
[2019-06-28] MEDS: propranolol 20 mg Tablet PO (09:58)
--- NOTE | 2019-06-28 12:33 | P.DS_ITS ---
Diagnoses at Discharge Discharge Diagnosis (1) Bipolar depression: Status: Acute (2) Suicidal ideation: Status: Resolved (3) Swallowed foreign body: Status: Resolved Reason for Visit Reason for Visit: Reason For Visit: ABD PAIN AND NAUSEA Brief History: HPI NPU History of Present Illness Shayan Dickson is a 34 year old male who presents today reporting that he is doing okay. He reports that his Zyprexa was discontinued, but he could give no explanation for why that was the case. We discussed his repeat behavior from October of last year which was swallowing the ends of a couple BIC razors, which had already been used, and were fairly dull in this reported suicide attempt. He could not move away from the fact that it was a real and valid attempt and not some kind of gesture. He reported that he thought that if he took those that they would slice him but to be clear these were not actual razorblades that were open. This was little plastic tops of cheap razors that had double blades in them, but they are kind of contained in the plastic so there is some risk, but not extreme risk. The surgeon went in and took them out and had them sent away for testing. We discussed the fact that he does have intellectual disability within special education classes in school, has limited functioning in that way. He continues to live with his uncle and his five dogs. He reports that he will never do this thing with the razors again. We talked about the fact that if he did in fact succeed, that his dogs would be left alone. He reported that he thought about that, but there seemed to be limited connectivity. We reviewed his most recent psychiatric evaluation here and he denied any substantive changes in the history or psychosocial circumstances. Per recent [facility] [place] 05/17/2019: HPI NPU History of Present Illness Chief complaint: the voices are so bad that I'm going to kill myself. History of present illness: Shayan Dickson is a 34 year old male who tells an undocumented fairly reasonable story of a life lived suffering auditory hallucinations to varying degrees. When he is doing well, he will hear muttering voices that do not cause him a great deal of difficulty. He states that he seldom is free of the voices. HE deons not report taking medication for this problem on a alf or regular basis. 3 months ago, the voices began getting worse. He is has no theory as to why they have gotten worse. 3 weeks ago, they began getting intrusive to the point where he was willing to end his life just to free himself from the torture from these voices. He hears a number of different voices. He is able to interpret who they are. They are from important people in his life. These include a woman that he knows and Her boyfriend, his stepbrother and his . they Say demeaning things in a very loud manner. They tell him that he should and they tell him how he should kill himself. in spite of having struggled with during much of his life, he cannot give any guidance as to what interventions have been helpful. He said that he took lithium for a while and it was quite helpful. However it stopped working. It is noted that he was hospitalized here in October 2018 and was discharged on a combination of Suboxone, Zyprexa, and citalopram. He can give no assessment as to whether the Zyprexa helped him with his voices. He says that if the voices are reduced, he will no longr be suicidal. He is ambivalent about symptoms of depression. He says that he does not do anything enjoyable and simply passes this time when his phone and taking care of animals around his arm. He reports good sleep. He has no specific suicide plan this time. He said suicide thoughts were proceeded by the worsening of the voices. His urine drug screen is negative. He is actively taking the Suboxone and receives it from an outpatient therapist. However he has not continued his medications otherwise from discharge in October 2018. Mental health history: history of this patient was very difficult to acquire. He talks very rapidly and in the low mumbling fashion. His thoughts are mildly disorganized.he reports that originally he grew up in [place] and that at one point he left a rehabilitation program there and moved to [place]. He was only in [place] for 3 months when there were some financial difficulties and he came to the [facility] in 2010. He gives no further history regarding mental health care. It is noted that he can give no advisement regarding any other medication trials that have had any effect positive for negative on his auditory hallucinations. notes from his admission to this unit in October 2018: 11/13/2018 Shayan presents today reporting that the situation with his razor blade centered around his loss of his fianc?e. He reports that his significant other had committed suicide about 3 days shy of 2 years of when he made this suicide attempt before admission. He reports that he was feeling very low without feeling a clear sense of relief. And he had read online that he swallowed a razor blade that it would go through certain parts and because it was internal organs you would not feel it as it was slicing through things and that he would bleed out in his sleep. He reports that when he woke up and was alive but had a rectal bleeding he got really anxious and that when he came to the hospital. He is passed the razor blade now and at this point he reports that he is feeling better and more optimistic. With his first day on the psychiatric unit we discussed the fact that we needed to observe him for a couple of days to get a sense of where he really is prior to being comfortable with discharge. We had filed a 21-day hold paperwork but were able to negotiate and get an agreement that he will work with us over the next few days with a plan for discharge at the beginning of the week. Hospital Course: Shayan presented to the unit after being in the ICU and followed by surgery secondary to the ingestion of a razor blade or at least razor blade containing item from the head of a razor. After being followed until the object had been defecated since they were unable to get it by surgical means he was transferred to the NPU. After he woke up alive he reports that he got himself to the hospital for help and reports that he did not have any lethality after awaking and felt a desire to get help and not continue with self-injurious suicidal behaviors. So after a few days in the ICU he spent a few days in the NPU where he was observed and each day denied any lethality and a desire to go home and continue with his life. His medications were continued. Once he got to the NPU he acclimated to the individual, group and milieu therapies. While he was in the hospital he had routine laboratory studies which were within normal limits except for a few outliers. Those can be seen below. He also had a general me dical evaluation this was within normal limits and revealed no acute processes except for the issue with the intentional ingestion. At the time of discharge his mood had improved, his lethality had resolved and he was sleeping better. He endorsed the plan to take his medication as prescribed, continue with his recovery oriented outpatient treatments and abstain from drugs of abuse as well as self-injurious and suicidal behaviors. He had obtained all the benefits he could get from the inpatient unit so he was discharged. Social history:the patient is currently supporting himself through his disability payments. He lives with uncle who apparently has a farm. He spends much of his time helping his uncle with daily activities around the farm such as feeding animals and taking care of the general grounds. He engages in no enjoyable activities and largely spends his time playing on his phone. His uncle apparently is advanced in age and is concerned about Shayan's well-being as the uncle's health declines. Shayan's uncle has advised him to go to a rehabilitation program and get off the Suboxone so that eventually he can be placed in a retirement or residential care facility. Legal history:there is no history in the [place] public record of incarcerations or felony arrests. Past medical history: Allergies Escitalopram. NSAIDS (NON-STEROIDAL ANTI-INFLAMMA. Venlafaxine. SOCIAL HX: Heavy tobacco smoker (cigarette)- 1 pack per day. No alcohol use or drug use. No recent travel. PROBLEMS: Ulcerative Colitis. GI Bleeding. Depression. Bipolar Disorder. Colitis. ADDITIONAL SURGERIES: Appendectomy. . Mental Status Exam: the patient is an alert interpersonally engaged male. He is believed to be a reliable informant to the best of his ability as information that is provided is internally consistent and consistent with that in the chart. Appearance: hygiene is fair; no gross neurological deficits., gait is unremarkable; AIMS=0 Speech: Speech is she is rapid with indistinct enunciation with frequently makes some of the information difficult to assess. Thought processes: Thought processes are abstract. Judgment is adequate for safety. Associations: intact Psychotic processes: There is no indication of guarding or paranoia. There is no attention to the internal stimuli. auditory hallucinations are reported as above. He denied the presence of visual hallucinations. Judgment: Insight is good. Problem solving skills are adequate for safety. Orientation: The patient is oriented to person, place time and situation. Memory: no deficits noted in immediate, intermediate, or remote spheres. Attention: The patient is alert and interpersonally engaged. Language: Verbalizations are coherent. Fund of knowledge: Fund of knowledge is adequate. Affect/Mood: Affect is consistent with a depressed mood. he reported vague suicidal ideation without intent or plan. Affective range good Psychosis: perception unimpaired despite intrusive auditory hallucinations that he is experiencing.; reality testing intact. Diagnoses: schizophrenia?undifferentiated, acute Assessment:this is a difficult situation given that he has a long-standing history of schizophrenia but can give no feedback as to what medications have been tried without any success in the past. At this point, we will continue the Zyprexa 20 mg at bedtime and also provide when necessary dosing during the day with Geodon as needed for auditory hallucinations. He will continue with Suboxone and the Celexa. We will discuss the feasibility of placement in a rehabilitation program with older adult social work specialist. If this is a reasonable possibility, tapering some from Suboxone will be discussed. Hospital Course Hospital Course Jan presented to the emergency room, as he has previously, with an ingestion of the top of some Bic razors, the cartridge tops. He has done this before. According to the surgeon that saw him, the razors had clearly been used previously, as they had some ?crud? in them, but they were also dull so they had been fairly well used, and so they posed very limited risk. He was admitted to [facility] side of the hospital and had a surgical intervention to remove those, and then was transferred to the neuropsychiatric unit for definitive treatment. Once he was on the unit, he fairly quickly acclimated to the individual, group, and milieu therapies provided. He initially thought his Zyprexa was discontinued but it does not appear that was the case. We did increase his Prozac and initi ate Propranolol, which he had a fairly positive response to. During conversations it never seemed clear that he actually was wanting to kill himself, it seemed more of a parasuicidal gesture connected with likely Cluster B pathology, as well as limited intellectual ability. He had routine laboratory studies which were within normal limits, except for a few outliers. Additionally, he had a general medical evaluation which was within normal limits and revealed no new processes outside of the intentional foreign object ingestion that is noted, and that was managed by the surgical team. Discharge Summary At the time of discharge he was absent lethality, there was no psychosis reported, his mood and anxiety were well managed, and he endorsed a plan to avoid all drugs of abuse. Additionally, he endorsed a plan to follow-up with outpatient services, as recommended. He was evaluated and deemed to be absent credible lethality, and had achieved the maximum benefit from an inpatient hospitalization, and so he was discharged. Involuntary Hold Information 96 Hour Hold: 96 Hour Involuntary Admission: No 96 Hour Hold Ending Date: 05/22/19 96 Hour Hold Ending Time: 11:00 Mental Status Exam MSE Comments: This is a slightly overweight, white male, with adequate dress and grooming, and improving eye contact. No abnormal movements, except for mild improving psychomotor retardation. Cooperative with exam in no acute distress. Speech was slightly decreased rate and volume and effeminate. Mood described as a pretty good; affect brighter. Thought process, organized. Thought content: patient denied any suicidal or homicidal ideation, there were no delusions reported or noted, patient denied any auditory or visual hallucinations. Attention, concentration, and memory appeared intact but were not formally tested. He is alert and oriented times three. Insight and judgment are limited improving. Intellectual ability is limited. Discharge Data Data Completed and Pending: Completed Studies During Hospitalization Category Date Time Status XR KUB [id number] Stat Exams 06/24/19 14:05 Completed XR KUB portable 7 [id number] Urgent Exams 06/24/19 17:55 Completed XR chest 1V sourav ble [id number] Urgent Exams 06/24/19 14:05 Completed XR chest 2V* [id number] Stat Exams 06/24/19 14:32 Completed Pathology: Surgic al [PTH] Routine Pth 06/24/19 18:06 Completed Vitals: Last Vital Signs Temp 98.3 F 06/28/19 06:00 Pulse 88 06/28/19 06:00 Resp 20 H 06/28/19 06:00 BP 97/61 06/28/19 06:00 Pulse Ox 100 06/28/19 06:00 Discharge Plan Discharge Patient Disposition: Home, Self-Care Condition: Stable Prescriptions: New doxepin 10 mg Capsule 10 mg PO BEDTIME 30 Days Qty: 30 RF: 1 fluoxetine 20 mg Capsule 60 mg PO DAILY 30 Days Qty: 90 RF: 1 hydroxyzine pamoate 50 mg capsule 50 mg PO TID 30 Days Qty: 90 RF: 1 lithium carbonate 450 mg Tablet Extended Release 900 mg PO BEDTIME 30 Days Qty: 60 RF: 1 nortriptyline 25 mg Capsule 25 mg PO BEDTIME 30 Days Qty: 30 RF: 1 Zyprexa 20 mg tablet 20 mg PO BEDTIME 30 Days Qty: 30 RF: 1 phenytoin sodium extended 100 mg Capsule 200 mg PO BID 30 Days Qty: 120 RF: 1 zolpidem 10 mg Tablet 10 mg PO BEDTIME 30 Days Qty: 30 RF: 1 propranolol 20 mg Tablet 20 mg PO TID PRN (Reason: Anxiety) 30 Days Qty: 90 RF: 1 Continued olanzapine 5 mg Tablet 5 mg PO TID Qty: 90 RF: 0 nortriptyline 25 mg Capsule 50 mg PO BEDTIME Qty: 30 RF: 0 melatonin 2.5 mg Tablet,Chewable 2.5 mg PO DAILY RF: 0 Suboxone 8-2 mg film 2 - 8 film buccal DAILY RF: 0 clonazepam 0.5 mg Tablet 0.5 mg PO TID 30 Days Qty: 90 RF: 1 mirtazapine 30 mg Tablet 30 mg PO BEDTIME 30 Days Qty: 30 RF: 1 Discharge Orders: Discharge Order (Routine); Ordered 06/28/19 Ordered By: Jag Escobar Referrals: [facility] [Outside] (Request initial intake by going to [facility] during the walk-in hours. Walk-in hours are 7:30am to 2:30pm or call [facility] and request initial intake over the phone at .) Discharge Diet: Regular Discharge Activity: Resume usual activity Patient Instructions: Bipolar Disorder, Propranolol (By mouth), Doxepin (By mouth), Fluoxetine (By mouth), Nortriptyline (By mouth), Phenytoin (By mouth), [place] (By mouth), Hydroxyzine Hydrochloride (By mouth), Zolpidem (By mouth), Olanzapine (By mouth) Activity Restrictions/Additional Instructions: Contact DFS for additional help with applying for [place] Medicaid by going to website at [email or web address]. Once you have [place] medicaid you can arrange rides with medicaid transport at: [phone] Discharge Date/Time: 06/28/19 14:43 Discharge Attestations NPU Time Spent in Discharge Care*: less than 30 min Specific Discharge Activities: Specific discharge activities: educating patient, discussing with protective services case worker/social workers/dc planners, documenting/other paperwork and evaluating patient/reviewing data Coding Level of Care Code Acute [employer] for Chg Fwd Diagnoses Bipolar depression F31.9 Suicidal ideation R45.851 Swallowed foreign body T18.9XXA
[2019-06-28 12:46] VITALS: BP 97/61; PULSE 88; RESP 20; TEMP 36.8; O2SAT 100
--- NOTE | 2019-07-04 12:15 | PC.SOCIAL ---
Aide with [facility] intake reports that she called Shayan to try and schedule and intake and was hung up on. He did not appear interested in services.
== END 2019-06-28 14:43 | disposition home or self-care (01) | DRG 885 ==
LOC: ER 15:02 → OR 16:01 → NP 17:17
PROVIDERS: Admitting Provider Psychiatry & Neurology Psychiatry; Emergency Provider Family Medicine; Visit Provider Surgery
PROC: 0DJ08ZZ Inspection of Upper Intestinal Tract, Via Natural or Artificial Opening Endoscopic (ICD-10-PCS; CPT 43235; principal; 2019-06-24 16:10)
DX: F31.9 Bipolar disorder, unspecified (principal); R45.851 Suicidal ideations; Z91.5 Personal history of self-harm; T18.3XXA Foreign body in small intestine, initial encounter; F17.210 Nicotine dependence, cigarettes, uncomplicated; X83.8XXA Intentional self-harm by other specified means, initial encounter; Y93.89 Activity, other specified
CPT/HCPCS: 12345; 36415; 43239; 43247; 71045; 71046; 74018; 80053; 80307; 81003; 84443; 85025; 87077; 88300; 99284; A9270; J0330; J0573; J2704; J3010; J3490

== ENCOUNTER 2019-09-16 09:24 | Inpatient (IN) | payer MEDICARE, MEDICAID, SELFPAY ==
[2019-09-16 09:39] VITALS: BP 115/80; PULSE 113; RESP 18; TEMP 36.5; O2SAT 99; BMI 25.1
--- NOTE | 2019-09-16 09:45 | W.ED.ABDPA2 ---
HPI - Abdominal Pain General: Chief Complaint: Psychiatric Symptoms Stated Complaint: suicidal, possible APAP OD Time Seen by Provider: 09/16/19 09:44 Source: patient Mode of arrival: ambulatory Limitations: no limitations History of Present Illness: HPI narrative: Patient comes in today for complaints of suicidal thoughts and attempt. Patient reports for the last 3 nights in a row he has been trying to kill himself by taking large amounts of Tylenol. Patient reports taking between 20 and 30 tablets over the last 3 days of acetaminophen. Patient states that he has been hearing voices that have been telling him to kill himself. Patient has a history of previous attempts of suicide this year. Both times occurred with patient taking either acetaminophen or ibuprofen. Last attempt was in May. Patient states he has been without his lithium which he usually takes for his psychiatric disorder. Patient has been without any medications for his psychiatric disorder. Review of Systems General: Reports: 10 or more systems reviewed and unremarkable except in HPI and below Psych: Reports: anxiety, auditory hallucinations and suicidal ideation (Attempt of suicide with acetaminophen overdose.) [facility] PFSH: Medical History (Updated 09/16/19 @ 10:52 by GREGORIA Hector) Opiate misuse Surgical History (Updated 06/29/19 @ 00:00 by ) History of appendectomy Social History Smoking and tobacco status: current every day smoker Physical Exam Const: COMMON NORMALS: no acute distress and patient oriented x3 GENERAL APPEARANCE: cooperative HENMT: COMMON NORMALS: normocephalic and Normal external nose present HEAD & SCALP: normal to inspection and normocephalic NOSE: Normal external nose present MOUTH: Normal oral and palatal mucosa present THROAT: posterior oropharynx normal Eye: GENERAL EYE: appearance normal, both eyes and all related structures Neck/C-Spine: COMMON NORMALS: full ROM Lymph: LYMPHATIC: no lymphadenopathy noted Chest: COMMONS NORMALS: normal inspection of the chest Resp: COMMON NORMALS: normal respiratory effort EFFORT & INSPECTION: Yes able to speak in complete sentences Cardio: COMMON NORMALS: regular rate and regular rhythm RATE: regular rate RHYTHM: regular rhythm GI: COMMON NORMALS: non-tender : COMMON NORMALS: Yes no CVA tenderness BLADDER/KIDNEY EXAM: Yes no CVA tenderness Back/Pelvis: COMMON NORMALS: no CVA tenderness and thoracic and lumbar spine normal to inspection Extremity: COMMON NORMALS: normal to inspection Neuro: COMMON NORMALS: patient oriented x3 and moves all extremities Psych: COMMON NORMALS: cooperative APPEARANCE: Yes unkempt ATTITUDE: Yes bizarre ACTIVITY/MOTOR BEHAVIOR: Yes fidgeting SPEECH: Yes rapid MOOD & AFFECT: Yes anxious THOUGHT PROCESS: Circumstantial thought process present THOUGHT CONTENT: Yes Suicidality present ATTENTION/CONCENTRATION: Yes attention grossly intact MEMORY/COGNITION: Yes memory grossly intact INSIGHT: Limited insight present (Psych) JUDGEMENT: Poor judgement present (Psych) Skin: COMMON NORMALS: no rashes or lesions noted GENERAL SKIN EXAM: no rashes or lesions noted Course Vital Signs: Vital signs: Vital Signs Temperature 97.7 F 09/16/19 09:39 Pulse Rate 113 H 09/16/19 09:39 Respiratory Rate 18 09/16/19 09:39 Blood Pressure 115/80 09/16/19 09:39 Pulse Oximetry 99 09/16/19 09:39 MDM - Abdominal Pain MDM Narrative: Medical decision making narrative: Patient comes in today for statements of suicidal attempt with overdosing on acetaminophen. Patient reports taking 20 to 30 tablets of acetaminophen over the last 3 days when the voices have told him to kill himself. Patient is anxious and appears restless in his room although is cooperative. Vital signs are normal. Abdomen soft nontender. Respirations are even lungs are clear to auscultation. No signs of jaundice is noticed. Differential diagnosis includes acute psychosis, suicidal attempt, bipolar disorder, malingering, nonuse of prescribed medications. Laboratory values were significant for positive drug screen for PCP use, less than 10 on acetaminophen and salicylate levels, remainder of labs were insignificant. Reviewed patient's comments and exam with Dr. Escobar who agreed for admission to neuropsychiatric unit for safety of patient and further evaluation and treatment of acute psychosis. Lab Data: Labs: Lab Results 09/16/19 09/16/19 09/16/19 Range/Units 09:56 09:56 10:04 WBC 5.5 (4.0-10.0) 10^3/ uL RBC 5.10 (4.1-5.3) 10^6/u L Hgb 14.7 (11.7-16.6) g/dL Hct 43.3 (42.0-52.0) % MCV 84.9 (80-94) fL MCH 28.8 (28.0-34.0) pg MCHC 33.9 (30.0-36.0) g/dL RDW 13.9 (12.1-15.1) % Plt Count 241 (130-400) 10^3/c mm MPV 9.9 (7.4-10.4) fL Neut % (Auto) 65.0 % Lymph % (Auto) 25.8 % [place] % (Auto) 6.8 % Eos % (Auto) 2.0 % Baso % (Auto) 0.2 % Neut # (Auto) 3.6 (1.8-7.7) 10^3/u L Lymph # (Auto) 1.4 (0.8-4.8) 10^3/u L [place] # (Auto) 0.4 (0.2-0.9) 10^3/u L Eos # (Auto) 0.1 (0.0-0.8) 10^3/u L Baso # (Auto) 0.0 (0.0-0.1) 10^3/u L Nucleated RBC % (a uto) 0 % Nucleated RBCs # 0.0 /100WBC Sodium (136-145) mmol/L Potassium (3.5-5.1) mmol/L Chloride (98-107) mmol/L Carbon Dioxide (22-29) mmol/L Anion Gap (5-19) BUN (6-20) mg/dL Creatinine (0.7-1.2) mg/dL GFR Calculation (90-130) mL/min Glucose (65-115) mg/dL Calculated Osmolal ity (285-295) mOsm/k g Calcium (8.5-10.5) mg/dL Total Bilirubin (0.15-1.2) mg/dL AST (0-40) U/L ALT (0-41) U/L Alkaline Phosphata se (40-130) IU/L Total Protein (6.6-8.7) g/dL Albumin (3.5-5.2) g/dL Globulin (1.3-4.6) g/dL Lipase (13-60) U/L TSH (0.27-4.20) uIU/ mL Urine Color Dark yellow (Yellow) Urine Appearance Clear (CLEAR) Urine pH 5 (5-7) Ur Specific Gravit y 1.030 (1.005-1.030) Urine Protein 1+ H (Negative) Urine Glucose (UA) Norm (Normal) Urine Ketones 1+ H (Negative) Urine Blood Neg (Negative) Urine Nitrate Negative (Negative) Urine Bilirubin 1+ H (NEGATIVE) Urine Urobilinogen 1 H (Negative) mg/dL Ur Leukocyte Riya ase Negative (Negative) Urine RBC None (0-2) /hpf Urine WBC 0-4 H (0-5) /hpf Ur Squamous Epith Cells None (0-5) Urine Bacteria Trace (NONE) Urine Mucus Trace Salicylates (3-10) mg/dL Urine Opiates Scre en Negative (Negative) ng/mL Acetaminophen (10-30) ug/mL Ur Barbiturates Sc reen Negative (Negative) ng/mL Phenytoin (10-20) ug/mL Ur Phencyclidine S crn Positive H (Negative) ng/mL Ur Amphetamines Sc reen Negative (Negative) ng/mL U Benzodiazepines Scrn Negative (Negative) ng/mL [place] (0.6-1.2) mmol/L Urine Cocaine Scre en Negative (Negative) ng/mL U Marijuana (THC) Screen Negative (Negative) ng/mL Ethyl Alcohol (0-10) mg/dL 09/16/19 09/16/19 09/16/19 Range/Units 10:04 10:04 10:04 WBC (4.0-10.0) 10^3/ uL RBC (4.1-5.3) 10^6/u L Hgb (11.7-16.6) g/dL Hct (42.0-52.0) % MCV (80-94) fL MCH (28.0-34.0) pg MCHC (30.0-36.0) g/dL RDW (12.1-15.1) % Plt Count (130-400) 10^3/c mm MPV (7.4-10.4) fL Neut % (Auto) % Lymph % (Auto) % [place] % (Auto) % Eos % (Auto) % Baso % (Auto) % Neut # (Auto) (1.8-7.7) 10^3/u L Lymph # (Auto) (0.8-4.8) 10^3/u L [place] # (Auto) (0.2-0.9) 10^3/u L Eos # (Auto) (0.0-0.8) 10^3/u L Baso # (Auto) (0.0-0.1) 10^3/u L Nucleated RBC % (a uto) % Nucleated RBCs # /100WBC Sodium 141 (136-145) mmol/L Potassium 3.6 (3.5-5.1) mmol/L Chloride 105 (98-107) mmol/L Carbon Dioxide 20 L (22-29) mmol/L Anion Gap 19.6 H (5-19) BUN 17 (6-20) mg/dL Creatinine 0.8 (0.7-1.2) mg/dL GFR Calculation 110.0 (90-130) mL/min Glucose 99 (65-115) mg/dL Calculated Osmolal ity 288 (285-295) mOsm/k g Calcium 9.8 (8.5-10.5) mg/dL Total Bilirubin 0.6 (0.15-1.2) mg/dL AST 13 (0-40) U/L ALT 7 (0-41) U/L Alkaline Phosphata se 70 (40-130) IU/L Total Protein 7.1 (6.6-8.7) g/dL Albumin 5.0 (3.5-5.2) g/dL Globulin 2.1 (1.3-4.6) g/dL Lipase 23 (13-60) U/L TSH 0.86 (0.27-4.20) uIU/ mL Urine Color (Yellow) Urine Appearance (CLEAR) Urine pH (5-7) Ur Specific Gravit y (1.005-1.030) Urine Protein (Negative) Urine Glucose (UA) (Normal) Urine Ketones (Negative) Urine Blood (Negative) Urine Nitrate (Negative) Urine Bilirubin (NEGATIVE) Urine Urobilinogen (Negative) mg/dL Ur Leukocyte Riya ase (Negative) Urine RBC (0-2) /hpf Urine WBC (0-5) /hpf Ur Squamous Epith Cells (0-5) Urine Bacteria (NONE) Urine Mucus Salicylates < 0.3 L (3-10) mg/dL Urine Opiates Scre en (Negative) ng/mL Acetaminophen < 10.0 L (10-30) ug/mL Ur Barbiturates Sc reen (Negative) ng/mL Phenytoin 0.8 L (10-20) ug/mL Ur Phencyclidine S crn (Negative) ng/mL Ur Amphetamines Sc reen (Negative) ng/mL U Benzodiazepines Scrn (Negative) ng/mL [place] 0.1 L (0.6-1.2) mmol/L Urine Cocaine Scre en (Negative) ng/mL U Marijuana (THC) Screen (Negative) ng/mL Ethyl Alcohol < 10 (0-10) mg/dL Discharge Plan Discharge Patient Disposition: Psych Hosp/Unit w Plan Readm Clinical Impression: Acute psychosis, Suicidal ideation Condition: Stable Coding Level of Care Code ED [employer] 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
[2019-09-16 10:13] LABS: Basophils % 0.2 %; Eosinophils # 0.1 10^3/uL (0.0-0.8); Hematocrit 43.3 % (42.0-52.0); Hemoglobin 14.7 g/dL (11.7-16.6); Lymphocytes # 1.4 10^3/uL (0.8-4.8); Lymphocytes % 25.8 %; Mean Corpuscular HGB Conc 33.9 g/dL (30.0-36.0); Mean Corpuscular Hemoglobin 28.8 pg (28.0-34.0); Mean Corpuscular Volume 84.9 fL (80-94); Mean Platelet Volume 9.9 fL (7.4-10.4); Monocytes # 0.4 10^3/uL (0.2-0.9); Monocytes % 6.8 %; Neutrophils # 3.6 10^3/uL (1.8-7.7); Nucleated Red Blood Cells % 0 %; Platelet Count 241 10^3/cmm (130-400); Red Cell Distribution Width 13.9 % (12.1-15.1); White Blood Count 5.5 10^3/uL (4.0-10.0)
[2019-09-16 10:34] LABS: Amphetamines Screen Urine Negative (Negative); Barbiturates Screen Urine Negative (Negative); Benzodiazepines Screen Urine Negative (Negative); Cocaine Screen Urine Negative (Negative); Opiate Screen Urine Negative (Negative); PCP Screen Urine Positive (Negative); THC Screen Urine Negative (Negative)
[2019-09-16 10:37] LABS: Lithium 0.1 mmol/L (0.6-1.2)
[2019-09-16 10:39] LABS: Add Urine Microscopic? YES; Bilirubin Urine 1+ (NEGATIVE); Blood Urine Neg (Negative); Glucose Urine UA Norm (Normal); Ketones Urine 1+ (Negative); Leukocyte Esterase Urine Negative (Negative); Nitrate Urine Negative (Negative); Protein Urine 1+ (Negative); Urine Appearance Clear (CLEAR); Urine Color Dark Yellow (Yellow); Urobilinogen Urine 1 mg/dL (Negative); pH Urine 5 (5-7)
[2019-09-16 10:43] LABS: Add Urine Culture? No; Bacteria Urine TRACE; Mucus Urine TRACE; WBC Urine 0-4 /hpf (0-5)
[2019-09-16 10:45] LABS: Alanine Aminotransferase 7 U/L (0-41); Alkaline Phosphatase 70 IU/L (40-130); Anion Gap 19.6 (5-19); Aspartate Amino Transferase 13 U/L (0-40); Blood Urea Nitrogen 17 mg/dL (6-20); Calcium 9.8 mg/dL (8.5-10.5); Carbon Dioxide 20 mmol/L (22-29); Chloride 105 mmol/L (98-107); Globulin 2.1 g/dL (1.3-4.6); Glucose 99 mg/dL (65-115); Lipase 23 U/L (13-60); Osmolality Calculated 288 mOsm/kg (285-295); Potassium 3.6 mmol/L (3.5-5.1); Sodium 141 mmol/L (136-145); Thyroid Stimulating Hormone 0.86 uIU/mL (0.27-4.20); Total Bilirubin 0.6 mg/dL (0.15-1.2); Total Protein 7.1 g/dL (6.6-8.7)
[2019-09-16 10:46] LABS: Alcohol Level < 10 mg/dL (0-10); Salicylate < 0.3 mg/dL (3-10)
[2019-09-16 10:51] LABS: Phenytoin Dilantin 0.8 ug/mL (10-20)
[2019-09-16 10:57] LABS: Acetaminophen < 10.0 ug/mL (10-30)
[2019-09-16 11:16] VITALS: BP 92/61; PULSE 82; O2SAT 97
[2019-09-16 11:43] VITALS: BP 99/70; PULSE 89; RESP 18; TEMP 36.8; O2SAT 96
[2019-09-16] MEDS: buprenorphine-naloxone 4-1 mg Film 2 EACH SUBLINGUAL ×2 (12:16→18:04)
[2019-09-16] MEDS: fluoxetine 20 mg Capsule 60 MG PO (12:16)
[2019-09-16] MEDS: nicotine 2 mg Gum BUCCAL ×3 (13:18→21:05)
[2019-09-16] MEDS: CLONazepam 0.5 mg Tablet PO ×2 (14:38→21:06)
[2019-09-16] MEDS: hyDROXYzine 25 mg Capsule 50 MG PO ×2 (14:38→21:06)
[2019-09-16] MEDS: phenytoin ER 100 mg Capsule 200 MG PO (17:19)
[2019-09-16] MEDS: lithium carbonate ER 450 mg Tablet 900 MG PO (21:05)
[2019-09-16] MEDS: mirtazapine 30 mg Tablet PO (21:06)
[2019-09-16] MEDS: nortriptyline 25 mg Capsule 50 MG PO (21:06)
[2019-09-16] MEDS: OLANZapine 10 mg TABLET 20 MG PO (21:06)
[2019-09-16] MEDS: nortriptyline 25 mg Capsule PO (21:07)
[2019-09-16 22:00] VITALS: BP 117/82; PULSE 97; RESP 17; TEMP 36.9; O2SAT 89
--- NOTE | 2019-09-16 23:00 | PC.NURSE ---
Pt given scheduled meds Klonopin, Vistaril, Niangua, Remeron,Pamelor, Zyprexa, Ambien and PRN Nicorette gum at HS.
[2019-09-17 06:00] VITALS: BP 105/69; PULSE 105; RESP 15; TEMP 36.6; O2SAT 95
[2019-09-17] MEDS: nicotine 2 mg Gum BUCCAL ×3 (07:46→21:31)
--- NOTE | 2019-09-17 08:33 | P.HP_ITS ---
Providers/Chief Complaint Admitting Physician: Jag Escobar MD Chief Complaint: ABD PAIN HPI NPU History of Present Illness Shayan Dickson is a 34 year old male Shayan presented to the emergency room reporting a decompensation and wanting to secondary to running out of his medications. 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 He reports that the medications that had been started in his last hospitalization were working fine and he was feeling optimistic about things, continuing to go in the right direction and improve, but as he got further away from them not being able to refill his medications, he started feeling worse and worse, and now he just reports that he is fed up with life and wanting to kill himself. He was admitted to the neuro-psychiatric unit for definitive treatment of those issues. We continued his current medications and agreed to do some investigation into his medications which were discontinued secondary to availability to make sure that it is not something that will prevent that in the future as well. We agreed that if we were able to identify that it was a glitch, that we would restart those medications and if we identify that it was going to be a problem moving forward, we would attempt an alternative treatment plan. He understood and agreed to proceed as is documented in this note. We reviewed his last hospitalization record from 06-25-19 and he denied any substantive changes since that time. An excerpt of that evaluation is included below. Per his last [facility] IP eval 06/25/2019: HPI NPU History of Present Illness Shayan Dickson is a 34 year old male who presents today reporting that he is doing okay. He reports that his Zyprexa was discontinued, but he could give no explanation for why that was the case. We discussed his repeat behavior from October of last year which was swallowing the ends of a couple BIC razors, which had already been used, and were fairly dull in this reported suicide attempt. He could not move away from the fact that it was a real and valid attempt and not some kind of gesture. He reported that he thought that if he took those that they would slice him but to be clear these were not actual razorblades that were open. This was little plastic tops of cheap razors that had double blades in them, but they are kind of contained in the plastic so there is some risk, but not extreme risk. The surgeon went in and took them out and had them sent away for testing. We discussed the fact that he does have intellectual disability within special education classes in school, has limited functioning in that way. He continues to live with his uncle and his five dogs. He reports that he will never do this thing with the razors again. We talked about the fact that if he did in fact succeed, that his dogs would be left alone. He reported that he thought about that, but there seemed to be limited connectivity. We reviewed his most recent psychiatric evaluation here and he denied any substantive changes in the history or psychosocial circumstances. Per recent [facility] eval 05/17/2019: HPI NPU History of Present Illness Chief complaint: the voices are so bad that I'm going to kill myself. History of present illness: Shayan Dickson is a 34 year old male who tells an undocumented fairly reasonable story of a life lived suffering auditory hallucinations to varying degrees. When he is doing well, he will hear muttering voices that do not cause him a great deal of difficulty. He states that he seldom is free of the voices. HE deons not report taking medication for this problem on a group home or regular basis. 3 months ago, the voices began getting worse. He is has no theory as to why they have gotten worse. 3 weeks ago, they began getting intrusive to the point where he was willing to end his life just to free himself from the torture from these voices. He hears a number of different voices. He is able to interpret who they are. They are from important people in his life. These include a woman that he knows and Her boyfriend, his stepbrother and his . they Say demeaning things in a very loud manner. They tell him that he should and they tell him how he should kill himself. in spite of having struggled with during much of his life, he cannot give any guidance as to what interventions have been helpful. He said that he took lithium for a while and it was quite helpful. However it stopped working. It is noted that he was hospitalized here in October 2018 and was discharged on a combination of Suboxone, Zyprexa, and citalopram. He can give no assessment as to whether the Zyprexa helped him with his voices. He says that if the voices are reduced, he will no longr be suicidal. He is ambivalent about symptoms of depression. He says that he does not do anything enjoyable and simply passes this time when his phone and taking care of animals around his arm. He reports good sleep. He has no specific suicide plan this time. He said suicide thoughts were proceeded by the worsening of the voices. His urine drug screen is negative. He is actively taking the Suboxone and receives it from an outpatient therapist. However he has not continued his medications otherwise from discharge in October 2018. Mental health history: history of this patient was very difficult to acquire. He talks very rapidly and in the low mumbling fashion. His thoughts are mildly disorganized.he reports that originally he grew up in [place] and that at one point he left a rehabilitation program there and moved to [place]. He was only in [place] for 3 months when there were some financial difficulties and he came to the [facility] in 2010. He gives no further history regarding mental health care. It is noted that he can give no advisement regarding any other medication trials that have had any effect positive for negative on his auditory hallucinations. notes from his admission to this unit in October 2018: 11/13/2018 Shayan presents today reporting that the situation with his razor blade centered around his loss of his fianc?e. He reports that his significant other had committed suicide about 3 days shy of 2 years of when he made this suicide attempt before admission. He reports that he was feeling very low without feeling a clear sense of relief. And he had read online that he swallowed a razor blade that it would go through certain parts and because it was internal organs you would not feel it as it was slicing through things and that he would bleed out in his sleep. He reports that when he woke up and was alive but had a rectal bleeding he got really anxious and that when he came to the hospital. He is passed the razor blade now and at this point he reports that he is feeling better and more optimistic. With his first day on the psychiatric unit we discussed the fact that we needed to observe him for a couple of days to get a sense of where he really is prior to being comfortable with discharge. We had filed a 21-day hold paperwork but were able to negotiate and get an agreement that he will work with us over the next few days with a plan for discharge at the beginning of the week. Hospital Course: Shayan presented to the unit after being in the ICU and followed by surgery secondary to the ingestion of a razor blade or at least razor blade containing item from the head of a razor. After being followed until the object had been defecated since they were unable to get it by surgical means he was transferred to the NPU. After he woke up alive he reports that he got himself to the hospital for help and reports that he did not have any lethality after awaking and felt a desire to get help and not continue with self-injurious suicidal behaviors. So after a few days in the ICU he spent a few days in the NPU where he was observed and each day denied any lethality and a desire to go home and continue with his life. His medications were continued. Once he got to the NPU he acclimated to the individual, group and milieu therapies. While he was in the hospital he had routine laboratory studies which were within normal limits except for a few outliers. Those can be seen below. He also had a general medical evaluation this was within normal limits and revealed no acute processes except for the issue with the intentional ingestion. At the time of discharge his mood had improved, his lethality had resolved and he was sleeping better. He endorsed the plan to take his medication as prescribed, continue with his recovery oriented outpatient treatments and abstain from drugs of abuse as well as self-injurious and suicidal behaviors. He had obtained all the benefits he could get from the inpatient unit so he was discharged. Social history:the patient is currently supporting himself through his disability payments. He lives with uncle who apparently has a farm. He spends much of his time helping his uncle with daily activities around the farm such as feeding animals and taking care of the general grounds. He engages in no enjoyable activities and largely spends his time playing on his phone. His uncle apparently is advanced in age and is concerned about Shayan's well-being as the uncle's health declines. Shayan's uncle has advised him to go to a rehabilitation program and get off the Suboxone so that eventually he can be placed in a halfway or residential care facility. Legal history:there is no history in the [place] public record of incarcerations or felony arrests. Past medical history: Allergies Escitalopram. NSAIDS (NON-STEROIDAL ANTI-INFLAMMA. Venlafaxine. SOCIAL HX: Heavy tobacco smoker (cigarette)- 1 pack per day. No alcohol use or drug use. No recent travel. PROBLEMS: Ulcerative Colitis. GI Bleeding. Depression. Bipolar Disorder. Colitis. ADDITIONAL SURGERIES: Appendectomy. . Mental Status Exam: the patient is an alert interpersonally engaged male. He is believed to be a reliable informant to the best of his ability as information that is provided is internally consistent and consistent with that in the chart. Appearance: hygiene is fair; no gross neurological deficits., gait is unremarkable; AIMS=0 Speech: Speech is she is rapid with indistinct enunciation with frequently makes some of the information difficult to assess. Thought processes: Thought processes are abstract. Judgment is adequate for safety. Associations: intact Psychotic processes: There is no indication of guarding or paranoia. There is no attention to the internal stimuli. auditory hallucinations are reported as above. He denied the presence of visual hallucinations. Judgment: Insight is good. Problem solving skills are adequate for safety. Orientation: The patient is oriented to person, place time and situation. Memory: no deficits noted in immediate, intermediate, or remote spheres. Attention: The patient is alert and interpersonally engaged. Language: Verbalizations are coherent. Fund of knowledge: Fund of knowledge is adequate. Affect/Mood: Affect is consistent with a depressed mood. he reported vague suicidal ideation without intent or plan. Affective range good Psychosis: perception unimpaired despite intrusive auditory hallucinations that he is experiencing.; reality testing intact. Diagnoses: schizophrenia?undifferentiated, acute Assessment:this is a difficult situation given that he has a long-standing history of schizophrenia but can give no feedback as to what medications have been tried without any success in the past. At this point, we will continue the Zyprexa 20 mg at bedtime and also provide when necessary dosing during the day with Kalyn as needed for auditory hallucinations. He will continue with Suboxone and the Celexa. We will discuss the feasibility of placement in a rehabilitation program with long term care social worker. If this is a reasonable possibility, tapering some from Suboxone will be discussed. Meds NPU Home Medications Medication Instructions Recorded Confirmed Last Taken Type nortriptyline 50 mg PO BEDTIME #30 cap 05/23/19 09/16/19 09/15/19 Rx buprenorphine-naloxone [Suboxone] 2 - 8 film BUCCAL DAILY 06/24/19 09/16/19 09/15/19 History clonazepam 0.5 mg PO TID 30 Days #90 tab 06/28/19 09/16/19 09/15/19 Rx fluoxetine 60 mg PO DAILY 30 Days #90 cap 06/28/19 09/16/19 09/14/19 Rx hydroxyzine pamoate 50 mg PO TID 30 Days #90 cap 06/28/19 09/16/19 Unknown Rx lithium carbonate 900 mg PO BEDTIME 30 Days #60 tab 06/28/19 09/16/19 Unknown Rx mirtazapine 30 mg PO BEDTIME 30 Days #30 tab 06/28/19 09/16/19 Unknown Rx nortriptyline 25 mg PO BEDTIME 30 Days #30 cap 06/28/19 09/16/19 09/15/19 Rx phenytoin sodium extended 200 mg PO BID 30 Days #120 cap 06/28/19 09/16/19 Unknown Rx propranolol 20 mg PO TID PRN 30 Days #90 tab 06/28/19 09/16/19 Unknown Rx zolpidem 10 mg PO BEDTIME 30 Days #30 tab 06/28/19 09/16/19 Unknown Rx olanzapine [Zyprexa] 20 mg PO BEDTIME 09/16/19 09/16/19 Unknown History Allergies Allergy/AdvReac Type Severity Reaction Status Date / Time mushroom Allergy Unknown Unknown Verified 09/16/19 10:37 escitalopram [From Lexapro] Allergy ALGY-Anaphy Verified 09/16/19 10:37 laxis NSAIDS (Non-Steroidal Allergy ADR-Abdominal Verified 09/16/19 10:37 Anti-Inflamma Pain venlafaxine [From Effexor] Allergy ALGY-Anaphy Verified 09/16/19 10:37 laxis PFSH NPU PFSH: Medical History (Updated 09/16/19 @ 10:52 by GREGORIA Hector) Opiate misuse Surgical History (Updated 06/29/19 @ 00:00 by ) History of appendectomy Social History Smoking and tobacco status: current every day smoker Mental Status Exam MSE Comments: This is an overweight, white male, with adequate dress, grooming, and eye contact. No abnormal movements. Cooperative with exam in no acute distress. Speech was decreased rate and volume and effeminate. Mood described as depressed; affect congruent. Thought process, organized. Thought content: He does endorse suicidal thoughts. There were no delusions reported or noted, patient denied any auditory or visual hallucinations. Attention, concentration, and memory appear intact but were not formally tested. He is alert and oriented times three. Insight and judgment are limited. Vitals/I&O/Wt Last Vital Signs Temp 98.0 F 09/17/19 14:00 Pulse 85 09/17/19 14:00 Resp 18 09/17/19 14:00 BP 96/67 09/17/19 14:00 Pulse Ox 95 09/17/19 14:00 Weight last 48 hrs Weight 81.647 kg Data NPU : 09/16/19 10:04 09/16/19 10:04 A&P Assessment and plan (1) Acute psychosis: Status: Acute (2) Cluster B personality disorder: Status: Acute (3) Suicidal ideation: Status: Acute (4) Bipolar depression: Status: Acute Additional A&P Information This is a 34 year old, white male, with history of bipolar disorder, Cluster B personality disorder, suicidal ideation, and psychosis, along with opiate use disorder or agonist therapy, who presents with problems with access to his medication which had been effective after his last hospitalization. Continue current medication. Will evaluate whether we can restart previous medication. Encourage individual, group, and milieu therapy. Continue q 15-minute checks for safety. Involuntary Hold Information 96 Hour Hold: 96 Hour Involuntary Admission: No 96 Hour Hold Ending Date: 05/22/19 96 Hour Hold Ending Time: 11:00 Attestations NPU Medical Necessity Statement*: Inpatient hospitalization is medically necessary and the clinically appropriate intervention at this time. He will be in the hospital for over two midnights. We will monitor medications, and make adjustments as indicated. Likely length of stay is 3-5 days Coding Level of Care Code Acute Boiler Washer for g Fwd Diagnoses Acute psychosis F23 Cluster B personality disorder F60.89 Suicidal ideation R45.851 Bipolar depression F31.9
[2019-09-17] MEDS: CLONazepam 0.5 mg Tablet PO ×3 (09:33→21:28)
[2019-09-17] MEDS: hyDROXYzine 25 mg Capsule 50 MG PO ×3 (09:33→21:28)
[2019-09-17] MEDS: fluoxetine 20 mg Capsule 60 MG PO (09:33)
[2019-09-17] MEDS: buprenorphine-naloxone 4-1 mg Film 2 EACH SUBLINGUAL ×2 (09:33→18:39)
[2019-09-17] MEDS: phenytoin ER 100 mg Capsule 200 MG PO ×2 (09:33→18:38)
[2019-09-17 14:00] VITALS: BP 96/67; PULSE 85; RESP 18; TEMP 36.7; O2SAT 95
[2019-09-17 19:45] VITALS: BP 98/63; PULSE 92; RESP 18; TEMP 36.7; O2SAT 95
[2019-09-17] MEDS: nortriptyline 25 mg Capsule 50 MG PO (21:28)
[2019-09-17] MEDS: mirtazapine 30 mg Tablet PO (21:28)
[2019-09-17] MEDS: OLANZapine 10 mg TABLET 20 MG PO (21:28)
[2019-09-17] MEDS: lithium carbonate ER 450 mg Tablet 900 MG PO (21:28)
[2019-09-17] MEDS: nortriptyline 25 mg Capsule PO (21:36)
[2019-09-17 21:45] VITALS: BP 98/63; PULSE 92; TEMP 36.7; O2SAT 92
[2019-09-18] MEDS: nicotine 2 mg Gum BUCCAL ×7 (02:11→21:03)
[2019-09-18 06:00] VITALS: BP 105/72; PULSE 100; RESP 20; TEMP 36.7; O2SAT 96
[2019-09-18] MEDS: phenytoin ER 100 mg Capsule 200 MG PO ×2 (08:38→17:43)
[2019-09-18] MEDS: fluoxetine 20 mg Capsule 60 MG PO (08:38)
[2019-09-18] MEDS: CLONazepam 0.5 mg Tablet PO ×3 (08:38→20:58)
[2019-09-18] MEDS: hyDROXYzine 25 mg Capsule 50 MG PO ×3 (08:38→20:59)
[2019-09-18] MEDS: buprenorphine-naloxone 4-1 mg Film 2 EACH SUBLINGUAL ×2 (08:39→17:43)
--- NOTE | 2019-09-18 13:20 | PM.NPN ---
Subjective NPU Subjective: Interval history: Shayan presents today reporting that he feels rough because he had not started his medications back yet. He has some of the medication but not the medication which had been stopped due to availability. We discussed our plan to work on restoring his Medicaid which may be the reason why he did not get the medication, use the days that he is in the hospital to restart the medication and give him the 30 days after he is discharged to get stabilized on it and give us about 5 weeks to fix what ever happened with the access to the medication. He understood and agreed to proceed with that plan. Mental Status Exam MSE Comments: This is an overweight, white male, with adequate dress, grooming, and eye contact. No abnormal movements. Cooperative with exam in no acute distress. Speech was decreased rate and volume and effeminate. Mood described as still down; affect congruent. Thought process, organized. Thought content: He does endorse suicidal thoughts. There were no delusions reported or noted, patient denied any auditory or visual hallucinations. Attention, concentration, and memory appear intact but were not formally tested. He is alert and oriented times three. Insight and judgment are limited. Vitals/I&O/Wt Last Vital Signs Temp 98 F 09/18/19 06:00 Pulse 100 09/18/19 06:00 Resp 20 H 09/18/19 06:00 BP 105/72 09/18/19 06:00 Pulse Ox 96 09/18/19 06:00 Data NPU : 09/16/19 10:04 09/16/19 10:04 A&P Additional A&P Information (1) Acute psychosis: (2) Cluster B personality disorder: (3) Suicidal ideation: (4) Bipolar depression: Additional A&P Information This is a 34 year old, white male, with history of bipolar disorder, Cluster B personality disorder, suicidal ideation, and psychosis, along with opiate use disorder or agonist therapy, who presents with problems with access to his medication which had been effective after his last hospitalization. Continue current medication. Will restart previous medication that was started last stay. Encourage individual, group, and milieu therapy. Continue q 15-minute checks for safety. Involuntary Hold Information 96 Hour Hold: 96 Hour Involuntary Admission: No 96 Hour Hold Ending Date: 05/22/19 96 Hour Hold Ending Time: 11:00 Attestations NPU Medical Necessity Statement*: Inpatient hospitalization is medically necessary and the clinically appropriate intervention at this time. We will monitor medications, and make adjustments as indicated. Likely length of stay is 2-4 days Coding Level of Care Code Acute Hand Rug Cleaner for Jrodan Craft
[2019-09-18 14:00] VITALS: BP 103/68; PULSE 91; RESP 20; TEMP 36.7; O2SAT 94
[2019-09-18] MEDS: lithium carbonate ER 450 mg Tablet 900 MG PO (20:58)
[2019-09-18] MEDS: mirtazapine 30 mg Tablet PO (20:58)
[2019-09-18] MEDS: OLANZapine 10 mg TABLET 20 MG PO (20:58)
[2019-09-18] MEDS: haloperidol 5 mg Tablet PO (20:58)
[2019-09-18] MEDS: nortriptyline 25 mg Capsule 50 MG PO (20:58)
[2019-09-18] MEDS: nortriptyline 25 mg Capsule PO (20:59)
[2019-09-18 21:14] VITALS: BP 125/76; PULSE 111; RESP 17; TEMP 36.6; O2SAT 95
--- NOTE | 2019-09-19 | PC.NURSE ---
pt was given scheduled HS meds of klonopin, vistaril, librium, remeron,pamelor, zyprexa , ambien, and prn haldol at HS
[2019-09-19] MEDS: acetaminophen 325 mg Tablet 650 MG PO (01:35)
[2019-09-19 06:00] VITALS: BP 114/76; PULSE 101; RESP 16; TEMP 37.1; O2SAT 97
[2019-09-19] MEDS: nicotine 2 mg Gum BUCCAL ×5 (06:01→22:05)
[2019-09-19] MEDS: hyDROXYzine 25 mg Capsule 50 MG PO ×3 (08:54→21:29)
[2019-09-19] MEDS: fluoxetine 20 mg Capsule 60 MG PO (08:54)
[2019-09-19] MEDS: phenytoin ER 100 mg Capsule 200 MG PO ×2 (08:55→17:16)
[2019-09-19] MEDS: buprenorphine-naloxone 4-1 mg Film 2 EACH SUBLINGUAL ×2 (08:55→17:15)
[2019-09-19] MEDS: CLONazepam 0.5 mg Tablet PO ×3 (08:55→21:29)
[2019-09-19] MEDS: haloperidol 5 mg Tablet PO ×2 (12:49→22:05)
--- NOTE | 2019-09-19 12:49 | PC.NURSE ---
PRN HALDOL HALDOL 5MG PO PER PATIENT C/O AGITATION/ANXIETY. WILL CONTINUE TO MONITOR FOR MEDICATION EFFECTIVENESS.
--- NOTE | 2019-09-19 12:50 | PM.NPN ---
Subjective NPU Subjective: Interval history: Shayan presents today reporting that he is feeling a little better. He was able to finally get his full medication regimen and feels like he is not at least falling into a hole. He reports that he is hopeful that he will feel much better as the days go by. He reports he is eating better and sleeping a little better as well. Mental Status Exam MSE Comments: This is an overweight, white male, with adequate dress, grooming, and eye contact. No abnormal movements. Cooperative with exam in no acute distress. Speech was decreased rate and volume and effeminate. Mood described as maybe a little better; affect congruent. Thought process, organized. Thought content: He denies suicidal or homicidal ideation, there were no delusions reported or noted, patient denied any auditory or visual hallucinations. Attention, concentration, and memory appear intact but were not formally tested. He is alert and oriented times three. Insight and judgment are limited. Vitals/I&O/Wt Last Vital Signs Temp 98.7 F 09/19/19 06:00 Pulse 101 H 09/19/19 06:00 Resp 16 09/19/19 06:00 BP 114/76 09/19/19 06:00 Pulse Ox 97 09/19/19 06:00 Data NPU : 09/16/19 10:04 09/16/19 10:04 A&P Additional A&P Information (1) Acute psychosis: (2) Cluster B personality disorder: (3) Suicidal ideation: (4) Bipolar depression: This is a 34 year old, white male, with history of bipolar disorder, Cluster B personality disorder, suicidal ideation, and psychosis, along with opiate use disorder or agonist therapy, who presents with problems with access to his medication which had been effective after his last hospitalization. Continue current medication. Encourage individual, group, and milieu therapy. Continue q 15-minute checks for safety. Involuntary Hold Information 96 Hour Hold: 96 Hour Involuntary Admission: No 96 Hour Hold Ending Date: 05/22/19 96 Hour Hold Ending Time: 11:00 Attestations NPU Medical Necessity Statement*: Inpatient hospitalization is medically necessary and the clinically appropriate intervention at this time. We will monitor medications, and make adjustments as indicated. Likely length of stay is 2-4 days Coding Level of Care Code Acute Insurance Follow Up Representative for Jordan Craft
--- NOTE | 2019-09-19 13:50 | PC.NURSE ---
PRN HALDOL FOLLOW UP MEDICATION EFFECTIVE. NO FURTHER C/O AGITATION/ANXIETY.
[2019-09-19 14:00] VITALS: BP 120/62; PULSE 102; RESP 20; TEMP 36.4; O2SAT 93
[2019-09-19] MEDS: lithium carbonate ER 450 mg Tablet 900 MG PO (21:28)
[2019-09-19] MEDS: OLANZapine 10 mg TABLET 20 MG PO (21:28)
[2019-09-19] MEDS: trazodone 50 mg Tablet PO (21:29)
[2019-09-19] MEDS: mirtazapine 30 mg Tablet PO (21:29)
[2019-09-19] MEDS: nortriptyline 25 mg Capsule PO (21:30)
[2019-09-19] MEDS: nortriptyline 25 mg Capsule 50 MG PO (21:30)
[2019-09-19 22:00] VITALS: BP 108/69; PULSE 79; RESP 19; TEMP 37; O2SAT 95
[2019-09-20 06:00] VITALS: BP 77/50; PULSE 118; RESP 14; TEMP 37; O2SAT 92
[2019-09-20] MEDS: nicotine 2 mg Gum BUCCAL ×5 (08:27→23:45)
[2019-09-20] MEDS: CLONazepam 0.5 mg Tablet PO (08:27)
[2019-09-20] MEDS: fluoxetine 20 mg Capsule 60 MG PO (08:27)
[2019-09-20] MEDS: buprenorphine-naloxone 4-1 mg Film 2 EACH SUBLINGUAL ×2 (08:27→17:10)
[2019-09-20] MEDS: phenytoin ER 100 mg Capsule 200 MG PO ×2 (08:28→17:10)
[2019-09-20] MEDS: hyDROXYzine 25 mg Capsule 50 MG PO ×3 (08:28→20:10)
[2019-09-20] MEDS: haloperidol 5 mg Tablet PO (10:29)
--- NOTE | 2019-09-20 10:29 | PC.NURSE ---
Addendum entered by Justine Colmenares LPN 09/20/19 14:32: prn med effective no further c/o agitation Original Note: PRN HALDOL 5 MG GIVEN PO PER PT C/O STATED AGITATION. PT DOES NOT APPEAR TO BE AGITATED, VOICE IS LOW & CALM.
[2019-09-20 13:22] VITALS: BP 109/71; PULSE 83; RESP 18; TEMP 36.7; O2SAT 97
--- NOTE | 2019-09-20 15:02 | PM.NPN ---
Subjective NPU Subjective: Interval history: Jan presents today reporting that he is feeling a bit better now, and it has been a little overwhelming restarting the medications, but he feels there has been significant improvement. He is feeling less worried about lethality and starting to trust the fact that he feels he will be able to manage at some point outpatient. We agreed to see how he does over the next 24 hours and with consideration of discharge tomorrow based on how he is doing. Mental Status Exam MSE Comments: This is an overweight, white male, with adequate dress, grooming, and eye contact. No abnormal movements except for mild psychomotor retardation. Cooperative with exam in no acute distress. Speech was decreased rate and volume and effeminate. Mood described as getting better; affect subdued. Thought process, organized. Thought content: patient denied any suicidal or homicidal ideation, there were no delusions reported or noted, patient denied any auditory or visual hallucinations. Attention, concentration, and memory appeared intact but were not formally tested. Alert and oriented times three. Insight and judgment are improving. Vitals/I&O/Wt Last Vital Signs Temp 98.2 F 09/20/19 22:00 Pulse 91 09/20/19 22:00 Resp 17 09/20/19 22:00 BP 123/73 09/20/19 22:00 Pulse Ox 94 09/20/19 22:00 Data NPU : 09/16/19 10:04 09/16/19 10:04 A&P Additional A&P Information (1) Acute psychosis: (2) Cluster B personality disorder: (3) Suicidal ideation: (4) Bipolar depression: This is a 34 year old, white male, with history of bipolar disorder, Cluster B personality disorder, suicidal ideation, and psychosis, along with opiate use disorder or agonist therapy, who presents with problems with access to his medication which had been effective after his last hospitalization. Continue current medication. Encourage individual, group, and milieu therapy. Continue q 15-minute checks for safety. Involuntary Hold Information 96 Hour Hold: 96 Hour Involuntary Admission: No 96 Hour Hold Ending Date: 05/22/19 96 Hour Hold Ending Time: 11:00 Attestations NPU Medical Necessity Statement*: Inpatient hospitalization is medically necessary and the clinically appropriate intervention at this time. We will monitor medications, and make adjustments as indicated. Likely length of stay is 1-3 days. We will consider discharge tomorrow. Coding Level of Care Code Acute Wire Technician for Jordan Craft
[2019-09-20] MEDS: mirtazapine 30 mg Tablet PO (20:10)
[2019-09-20] MEDS: nortriptyline 25 mg Capsule 50 MG PO (20:10)
[2019-09-20] MEDS: nortriptyline 25 mg Capsule PO (20:10)
[2019-09-20] MEDS: OLANZapine 10 mg TABLET 20 MG PO (20:10)
[2019-09-20] MEDS: lithium carbonate ER 450 mg Tablet 900 MG PO (20:10)
[2019-09-20 22:00] VITALS: BP 123/73; PULSE 91; RESP 17; TEMP 36.8; O2SAT 94
[2019-09-21] MEDS: haloperidol 5 mg Tablet PO ×2 (00:26→23:11)
--- NOTE | 2019-09-21 00:28 | PC.NURSE ---
PRN HALDOL PT C/O INCREASING ANXIETY. ADMINISTERED HALDOL 5 MG PO. WILL MONITOR FOR MEDICATION EFFECTIVENESS.
[2019-09-21 06:00] VITALS: BP 101/68; PULSE 95; RESP 16; TEMP 36.5; O2SAT 96
[2019-09-21] MEDS: nicotine 2 mg Gum BUCCAL ×5 (07:59→21:32)
[2019-09-21] MEDS: phenytoin ER 100 mg Capsule 200 MG PO ×2 (08:39→17:51)
[2019-09-21] MEDS: fluoxetine 20 mg Capsule 60 MG PO (08:39)
[2019-09-21] MEDS: hyDROXYzine 25 mg Capsule 50 MG PO ×3 (08:39→21:30)
[2019-09-21] MEDS: buprenorphine-naloxone 4-1 mg Film 2 EACH SUBLINGUAL ×2 (08:40→17:52)
--- NOTE | 2019-09-21 12:16 | PM.NPN ---
Subjective NPU Subjective: Interval history: Jan presents today appearing much more with that and less drowsy related to the reinitiation of the medication. He is working with the social work team for an appropriate discharge plan. On the table is a sober living facility versus an RCF. Given his love for his animals we are doubtful he will ask to go for an RCF even though a more controlled environment would probably work really well for him. He reports he is starting to feel much better rested and he is eating fine. Mental Status Exam MSE Comments: This is an overweight, white male, with adequate dress, grooming, and eye contact. No abnormal movements except for mild psychomotor retardation. Cooperative with exam in no acute distress. Speech was decreased, but more normal rate and volume and effeminate. Mood described as feeling much better today; affect less subdued. Thought process, organized. Thought content: patient denied any suicidal or homicidal ideation, there were no delusions reported or noted, patient denied any auditory or visual hallucinations. Attention, concentration, and memory appeared intact but were not formally tested. Alert and oriented times three. Insight and judgment are improving. Vitals/I&O/Wt Last Vital Signs Temp 99.1 F 09/21/19 21:43 Pulse 91 09/21/19 21:43 Resp 18 09/21/19 21:43 BP 110/70 09/21/19 21:43 Pulse Ox 94 09/21/19 21:43 Data NPU : 09/16/19 10:04 09/16/19 10:04 A&P Additional A&P Information (1) Acute psychosis: (2) Cluster B personality disorder: (3) Suicidal ideation: (4) Bipolar depression: This is a 34 year old, white male, with history of bipolar disorder, Cluster B personality disorder, suicidal ideation, and psychosis, along with opiate use disorder or agonist therapy, who presents with problems with access to his medication which had been effective after his last hospitalization. Continue current medication. Encourage individual, group, and milieu therapy. Continue q 15-minute checks for safety. We will await likely interview for facility tomorrow morning. Involuntary Hold Information 96 Hour Hold: 96 Hour Involuntary Admission: No 96 Hour Hold Ending Date: 05/22/19 96 Hour Hold Ending Time: 11:00 Attestations NPU Medical Necessity Statement*: Inpatient hospitalization is medically necessary and the clinically appropriate intervention at this time. We will monitor medications, and make adjustments as indicated. Likely length of stay is 1-3 days. 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
[2019-09-21 13:27] VITALS: BP 123/82; PULSE 108; RESP 18; TEMP 37.1; O2SAT 97
[2019-09-21] MEDS: CLONazepam 0.5 mg Tablet PO ×2 (14:59→21:29)
[2019-09-21] MEDS: nortriptyline 25 mg Capsule PO (21:29)
[2019-09-21] MEDS: nortriptyline 25 mg Capsule 50 MG PO (21:29)
[2019-09-21] MEDS: OLANZapine 10 mg TABLET 20 MG PO (21:30)
[2019-09-21] MEDS: lithium carbonate ER 450 mg Tablet 900 MG PO (21:30)
[2019-09-21] MEDS: mirtazapine 30 mg Tablet PO (21:30)
[2019-09-21 21:43] VITALS: BP 110/70; PULSE 91; RESP 18; TEMP 37.3; O2SAT 94
[2019-09-22 06:00] VITALS: BP 92/61; PULSE 85; RESP 18; TEMP 36.7; O2SAT 93
[2019-09-22] MEDS: buprenorphine-naloxone 4-1 mg Film 2 EACH SUBLINGUAL ×2 (08:16→17:32)
[2019-09-22] MEDS: fluoxetine 20 mg Capsule 60 MG PO (08:17)
[2019-09-22] MEDS: hyDROXYzine 25 mg Capsule 50 MG PO ×3 (08:17→20:54)
[2019-09-22] MEDS: CLONazepam 0.5 mg Tablet PO ×3 (08:17→20:53)
[2019-09-22] MEDS: phenytoin ER 100 mg Capsule 200 MG PO ×2 (08:18→17:32)
[2019-09-22] MEDS: nicotine 2 mg Gum BUCCAL ×5 (08:18→20:58)
--- NOTE | 2019-09-22 09:55 | P.PN_ITS ---
Subjective NPU Subjective: Interval history: Jan presents today having had the interview with the rehab/placement and reporting that he did well. He reports that they advised him that he need to have the member of the treatment team that they were working with call them and they will be able to discuss the possibilities for placement on Tuesday. He continues to report feeling better and doing better overall on his medication which has been resumed. He is eating and sleeping well. Mental Status Exam MSE Comments: This is an overweight, white male, with adequate dress, grooming, and eye contact. No abnormal movements except for improving mild psychomotor retardation. Cooperative with exam in no acute distress. Speech was decreased, but more normal rate and volume and effeminate. Mood described as definitely better today; affect congruent. Thought process, organized. Thought content: patient denied any suicidal or homicidal ideation, there were no delusions reported or noted, patient denied any auditory or visual hallucinations. Attention, concentration, and memory appeared intact but were not formally tested. Alert and oriented times three. Insight and judgment are improving. Vitals/I&O/Wt Last Vital Signs Temp 97.6 F 09/22/19 22:00 Pulse 95 09/22/19 22:00 Resp 18 09/22/19 22:00 BP 116/70 09/22/19 22:00 Pulse Ox 96 09/22/19 22:00 Data NPU : 09/16/19 10:04 09/16/19 10:04 A&P Additional A&P Information (1) Acute psychosis: (2) Cluster B personality disorder: (3) Suicidal ideation: (4) Bipolar depression: This is a 34 year old, white male, with history of bipolar disorder, Cluster B personality disorder, suicidal ideation, and psychosis, along with opiate use disorder or agonist therapy, who presents with problems with access to his medication which had been effective after his last hospitalization. Continue current medication. Encourage individual, group, and milieu therapy. Continue q 15-minute checks for safety. Had interview now leg hopefully quick placement to a sober living facility which will be of an inpatient nature. Involuntary Hold Information 96 Hour Hold: 96 Hour Involuntary Admission: No 96 Hour Hold Ending Date: 05/22/19 96 Hour Hold Ending Time: 11:00 Attestations NPU Medical Necessity Statement*: Inpatient hospitalization is medically necessary and the clinically appropriate intervention at this time. We will monitor medications, and make adjustments as indicated. 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
[2019-09-22 14:00] VITALS: BP 103/64; PULSE 103; RESP 18; TEMP 36.6
[2019-09-22] MEDS: haloperidol 5 mg Tablet PO (16:12)
--- NOTE | 2019-09-22 16:13 | PC.NURSE ---
PRN HALDOL 5 MG GIVEN PO PER PT C/O STATED HALLUCINATIONS PT DOES NOT SHOW OUTWARD S/S OF RESPONDING TO ANY INTERNAL STIMULI. PT WATCHING TV IN THE DAY ROOM. HAS BEEN MED SEEKING FOR HALDOL MOST OF THE DAY. WILL CONT TO MONITOR FOR DESIRED MED EFFECTIVENESS.
[2019-09-22] MEDS: OLANZapine 10 mg TABLET 20 MG PO (20:54)
[2019-09-22] MEDS: nortriptyline 25 mg Capsule 50 MG PO (20:54)
[2019-09-22] MEDS: lithium carbonate ER 450 mg Tablet 900 MG PO (20:54)
[2019-09-22] MEDS: nortriptyline 25 mg Capsule PO (20:54)
[2019-09-22] MEDS: mirtazapine 30 mg Tablet PO (20:55)
[2019-09-22 22:00] VITALS: BP 116/70; PULSE 95; RESP 18; TEMP 36.4; O2SAT 96
[2019-09-23 06:00] VITALS: BP 109/74; PULSE 86; RESP 18; TEMP 36.6; O2SAT 94
[2019-09-23] MEDS: nicotine 2 mg Gum BUCCAL ×5 (06:29→21:42)
[2019-09-23] MEDS: buprenorphine-naloxone 4-1 mg Film 2 EACH SUBLINGUAL ×2 (09:31→18:03)
[2019-09-23] MEDS: phenytoin ER 100 mg Capsule 200 MG PO ×2 (09:31→18:03)
[2019-09-23] MEDS: CLONazepam 0.5 mg Tablet PO ×3 (09:31→20:32)
[2019-09-23] MEDS: hyDROXYzine 25 mg Capsule 50 MG PO ×3 (09:31→20:31)
[2019-09-23] MEDS: fluoxetine 20 mg Capsule 60 MG PO (09:32)
--- NOTE | 2019-09-23 10:47 | P.PN_ITS ---
Subjective NPU Subjective: Interval history: Shayan presents today once again reporting that he feels better. He reports that he thinks that the interview with the facility went well and he is optimistic that we will be able to discharge him tomorrow. We discussed the plan to work with the social work team on Tuesday to find out where we are in regards to this placement and sober living treatment but he is excited about the possibility of going tomorrow or soon. Vitals/I&O/Wt Last Vital Signs Temp 98.4 F 09/23/19 20:37 Pulse 95 09/23/19 20:37 Resp 15 09/23/19 20:37 BP 98/61 09/23/19 20:37 Pulse Ox 94 09/23/19 20:37 Weight last 48 hrs Weight 91.229 kg Data NPU : 09/16/19 10:04 09/16/19 10:04 A&P Additional A&P Information (1) Acute psychosis: (2) Cluster B personality disorder: (3) Suicidal ideation: (4) Bipolar depression: This is a 34 year old, white male, with history of bipolar disorder, Cluster B personality disorder, suicidal ideation, and psychosis, along with opiate use disorder or agonist therapy, who presents with problems with access to his medication which had been effective after his last hospitalization. Continue current medication. Encourage individual, group, and milieu therapy. Continue q 15-minute checks for safety. Had interview now tuesday and hopefully awaiting quick placement to a sober living facility which will be of an inpatient nature. Involuntary Hold Information 96 Hour Hold: 96 Hour Involuntary Admission: No 96 Hour Hold Ending Date: 05/22/19 96 Hour Hold Ending Time: 11:00 Attestations NPU Medical Necessity Statement*: Inpatient hospitalization is medically necessary and the clinically appropriate intervention at this time. We will monitor medications, and make adjustments as indicated. 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
[2019-09-23] MEDS: OLANZapine 5 mg ODT PO (12:10)
[2019-09-23 14:00] VITALS: BP 114/72; PULSE 100; RESP 19; TEMP 36.3
[2019-09-23] MEDS: mirtazapine 30 mg Tablet PO (20:31)
[2019-09-23] MEDS: OLANZapine 10 mg TABLET 20 MG PO (20:31)
[2019-09-23] MEDS: haloperidol 5 mg Tablet PO (20:32)
[2019-09-23] MEDS: nortriptyline 25 mg Capsule PO (20:32)
[2019-09-23] MEDS: lithium carbonate ER 450 mg Tablet 900 MG PO (20:32)
[2019-09-23] MEDS: nortriptyline 25 mg Capsule 50 MG PO (20:32)
[2019-09-23 20:37] VITALS: BP 98/61; PULSE 95; RESP 15; TEMP 36.9; O2SAT 94
--- NOTE | 2019-09-23 21:14 | PC.NURSE ---
pt given scheduled klonopin, vistaril, lithium, remeron, pamelor, zypexa,ambien, aswell as prn haldol and nicorette.
[2019-09-24 06:00] VITALS: BP 97/64; PULSE 87; RESP 15; TEMP 36.6; O2SAT 91
[2019-09-24] MEDS: hyDROXYzine 25 mg Capsule 50 MG PO ×4 (08:03→20:45)
[2019-09-24] MEDS: CLONazepam 0.5 mg Tablet PO ×3 (08:03→20:46)
[2019-09-24] MEDS: fluoxetine 20 mg Capsule 60 MG PO (08:03)
[2019-09-24] MEDS: nicotine 2 mg Gum BUCCAL ×4 (08:04→20:44)
[2019-09-24] MEDS: phenytoin ER 100 mg Capsule 200 MG PO ×2 (08:04→18:30)
[2019-09-24] MEDS: buprenorphine-naloxone 4-1 mg Film 2 EACH SUBLINGUAL ×2 (08:04→18:30)
--- NOTE | 2019-09-24 12:07 | P.PN_ITS ---
Subjective NPU Subjective: Interval history: Jan presents today continuing to show improvement and being very proactive in his treatment and discharge. He was able to talk to the program [place] that [place] been to before and they have devised a plan to detox him from the Suboxone and Klonopin. He agreed to discontinue the Ambien tomorrow or at least by the time he arrives at the program and is fully appearing invested in change. He reports he is eating and sleeping well. Mental Status Exam MSE Comments: This is an overweight, white male, with adequate dress, grooming, and eye contact. No abnormal movements except for improving mild psychomotor retardation. Cooperative with exam in no acute distress. Speech was more normal rate and volume and effeminate. Mood described as optimistic; affect congruent. Thought process, organized. Thought content: patient denied any suicidal or homicidal ideation, there were no delusions reported or noted, patient denied any auditory or visual hallucinations. Attention, concentration, and memory appeared intact but were not formally tested. Alert and oriented times three. Insight and judgment are improving. Vitals/I&O/Wt Last Vital Signs Temp 98.4 F 09/24/19 22:00 Pulse 92 09/24/19 22:00 Resp 18 09/24/19 22:00 BP 116/79 09/24/19 22:00 Pulse Ox 93 09/24/19 22:00 Weight last 48 hrs Weight 91.229 kg Data NPU : 09/16/19 10:04 09/16/19 10:04 A&P Additional A&P Information (1) Acute psychosis: (2) Cluster B personality disorder: (3) Suicidal ideation: (4) Bipolar depression: This is a 34 year old, white male, with history of bipolar disorder, Cluster B personality disorder, suicidal ideation, and psychosis, along with opiate use disorder or agonist therapy, who presents with problems with access to his medication which had been effective after his last hospitalization. Continue current medication. Encourage individual, group, and milieu therapy. Continue q 15-minute checks for safety. Patient was accepted at the program and now working on the logistics to get him down there. 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 Involuntary Hold Information 96 Hour Hold: 96 Hour Involuntary Admission: No 96 Hour Hold Ending Date: 05/22/19 96 Hour Hold Ending Time: 11:00 Attestations NPU Medical Necessity Statement*: Inpatient hospitalization is medically necessary and the clinically appropriate intervention at this time. We will monitor med ications, and make adjustments as indicated. Likely length of stay is 1-2 days. 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
[2019-09-24 13:54] VITALS: BP 103/68; PULSE 89; RESP 18; TEMP 36.8; O2SAT 94
--- NOTE | 2019-09-24 16:27 | PC.NURSE ---
Addendum entered by Justine Colmenares LPN 09/24/19 17:13: prn med effective no further c/o anxiety Original Note: PRN VISTARIL 50 MG GIVEN PO PER PT C/O STATED ANXIETY. NO OUTWARD S/S OF ANXIETY NOTED, PT MED SEEKING. FREQUENTLY ASKING FOR ANY AND ALL PRN MEDS HE CAN HAVE. WILL CONT TO MONITOR
[2019-09-24] MEDS: OLANZapine 10 mg TABLET 20 MG PO (20:45)
[2019-09-24] MEDS: haloperidol 5 mg Tablet PO (20:45)
[2019-09-24] MEDS: lithium carbonate ER 450 mg Tablet 900 MG PO (20:45)
[2019-09-24] MEDS: nortriptyline 25 mg Capsule 50 MG PO (20:46)
[2019-09-24] MEDS: nortriptyline 25 mg Capsule PO (20:46)
[2019-09-24] MEDS: mirtazapine 30 mg Tablet PO (20:46)
[2019-09-24 22:00] VITALS: BP 116/79; PULSE 92; RESP 18; TEMP 36.9; O2SAT 93
[2019-09-25 06:00] VITALS: BP 101/66; PULSE 86; RESP 18; TEMP 36.8; O2SAT 93
[2019-09-25] MEDS: nicotine 2 mg Gum BUCCAL ×3 (06:03→12:27)
[2019-09-25] MEDS: CLONazepam 0.5 mg Tablet PO ×2 (08:13→14:29)
[2019-09-25] MEDS: buprenorphine-naloxone 4-1 mg Film 2 EACH SUBLINGUAL (08:13)
[2019-09-25] MEDS: phenytoin ER 100 mg Capsule 200 MG PO (08:13)
[2019-09-25] MEDS: fluoxetine 20 mg Capsule 60 MG PO (08:13)
[2019-09-25] MEDS: hyDROXYzine 25 mg Capsule 50 MG PO ×2 (08:13→14:29)
--- NOTE | 2019-09-25 10:28 | P.DS_ITS ---
Diagnoses at Discharge Discharge Diagnosis (1) Acute psychosis: Status: Resolved (2) Cluster B personality disorder: Status: Acute (3) Suicidal ideation: Status: Resolved (4) Bipolar depression: Status: Acute Reason for Visit Reason for Visit: ABD PAIN Brief History: History of Present Illness Shayan Dickson is a 34 year old male Shayan presented to the emergency room reporting a decompensation and wanting to secondary to running out of his medications. 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 He reports that the medications that had been started in his last hospitalization were working fine and he was feeling optimistic about things, continuing to go in the right direction and improve, but as he got further away from them not being able to refill his medications, he started feeling worse and worse, and now he just reports that he is fed up with life and wanting to kill himself. He was admitted to the neuro- psychiatric unit for definitive treatment of those issues. We continued his current medications and agreed to do some investigation into his medications which were discontinued secondary to availability to make sure that it is not something that will prevent that in the future as well. We agreed that if we were able to identify that it was a glitch, that we would restart those medications and if we identify that it was going to be a problem moving forward, we would attempt an alternative treatment plan. He understood and agreed to proceed as is documented in this note. We reviewed his last hospitalization record from 06-25-19 and he denied any substantive changes since that time. An excerpt of that evaluation is included below. Per his last [facility] [place] 06/25/2019: HPI [facility] History of Present Illness Shayan Dickson is a 34 year old male who presents today reporting that he is doing okay. He reports that his Zyprexa was discontinued, but he could give no explanation for why that was the case. We discussed his repeat behavior from October of last year which was swallowing the ends of a couple BIC razors, which had already been used, and were fairly dull in this reported suicide attempt. He could not move away from the fact that it was a real and valid attempt and not some kind of gesture. He reported that he thought that if he took those that they would slice him but to be clear these were not actual razorblades that were open. This was little plastic tops of cheap razors that had double blades in them, but they are kind of contained in the plastic so there is some risk, but not extreme risk. The surgeon went in and took them out and had them sent away for testing. We discussed the fact that he does have intellectual disability within special education classes in school, has limited functioning in that way. He continues to live with his uncle and his five dogs. He reports that he will never do this thing with the razors again. We talked about the fact that if he d id in fact succeed, that his dogs would be left alone. He reported that he thought about that, but there seemed to be limited connectivity. We reviewed his most recent psychiatric evaluation here and he denied any substantive changes in the history or psychosocial circumstances. Per recent [facility] [place] 05/17/2019: HPI [facility] History of Present Illness Chief complaint: the voices are so bad that I'm going to kill myself. History of present illness: Shayan Dickson is a 34 year old male who tells an undocumented fairly reasonable story of a life lived suffering auditory hallucinations to varying de grees. When he is doing well, he will hear muttering voices that do not cause him a great deal of difficulty. He states that he seldom is free of the voices. HE deons not report taking medication for this problem on a intermission coordinator or regular basis. 3 months ago, the voices began getting worse. He is has no theory as to why they have gotten worse. 3 weeks ago, they began getting intrusive to the p oint where he was willing to end his life just to free himself from the torture from these voices. He hears a number of different voices. He is able to interpret who they are. They are from important people in his life. These include a woman that he knows and Her boyfriend, his stepbrother and his . they Say demeaning things in a very loud manner. They tell him that he should and they tell him how he should kill himself. in spite of having struggled with during much of his life, he cannot give any guidance as to what interventions have been helpful. He said that he took lithium for a while and it was quite helpful. However it stopped working. It is noted that he was hospitalized here in October 2018 and was discharged on a combination of Suboxone, Zyprexa, and citalopram. He can give no assessment as to whether the Zyprexa helped him with his voices. He says that if the voices are reduced, he will no longr be suicidal. He is ambivalent about symptoms of depression. He says that he does not do anything enjoyable and simply passes this time when his phone and taking care of animals around his arm. He reports good sleep. He has no specific suicide plan this time. He said suicide thoughts were proceeded by the worsening of the voices. His urine drug screen is negative. He is actively taking the Suboxone and receives it from an outpatient therapist. However he has not continued his medications otherwise from discharge in October 2018. Mental health history: history of this patient was very difficult to acquire. He talks very rapidly and in the low mumbling fashion. His thoughts are mildly disorganized.he reports that originally he grew up in [place] and that at one point he left a rehabilitation program there and moved to [place]. He was only in [place] for 3 months when there were some financial difficulties and he came to the [facility] in 2010. He gives no further history regarding mental health care. It is noted that he can give no advisement regarding any other medication trials that have had any effect positive for negative on his auditory hallucinations. notes from his admission to this unit in October 2018: 11/13/2018 Shayan presents today reporting that the situation with his razor blade centered around his loss of his fianc?e. He reports that his significant other had committed suicide about 3 days shy of 2 years of when he made this suicide attempt before admission. He reports that he was feeling very low without feeling a clear sense of relief. And he had read online that he swallowed a razor blade that it would go through certain parts and because it was internal organs you would not feel it as it was slicing through things and that he would bleed out in his sleep. He reports that when he woke up and was alive but had a rectal bleeding he got really anxious and that when he came to the hospital. He is passed the razor blade now and at this point he reports that he is feeling better and more optimistic. With his first day on the psychiatric unit we discussed the fact that we needed to observe him for a couple of days to get a sense of where he really is prior to being comfortable with discharge. We had filed a 21-day hold paperwork but were able to negotiate and get an agreement that he will work with us over the next few days with a plan for discharge at the beginning of the week. Hospital Course: Shayan presented to the unit after being in the ICU and followed by surgery secondary to the ingestion of a razor blade or at least razor blade containing item from the head of a razor. After being followed until the object had been defecated since they were unable to get it by surgical means he was transferred to the NPU. After he woke up alive he reports that he got himself to the hospital for help and reports that he did not have any lethality after awaking and felt a desire to get help and not continue with self-injurious suicidal behaviors. So after a few days in the ICU he spent a few days in the NPU where he was observed and each day denied any lethality and a desire to go home and continue with his life. His medications were continued. Once he got to the NPU he acclimated to the individual, group and milieu therapies. While he was in the hospital he had routine laboratory studies which were within normal limits except for a few outliers. Those can be seen below. He also had a general medical evaluation this was within normal limits and revealed no acute processes except for the issue with the intentional ingestion. At the time of discharge his mood had improved, his lethality had resolved and he was sleeping better. He endorsed the plan to take his medication as prescribed, continue with his recovery oriented outpatient treatments and abstain from drugs of abuse as well as self-injurious and suicidal behaviors. He had obtained all the benefits he could get from the inpatient unit so he was discharged. Social history:the patient is currently supporting himself through his disability payments. He lives with uncle who apparently has a farm. He spends much of his time helping his uncle with daily activities around the farm such as feeding animals and taking care of the general grounds. He engages in no enjoyable activities and largely spends his time playing on his phone. His uncle apparently is advanced in age and is concerned about Shayan's well-being as the uncle's health declines. Shayan's uncle has advised him to go to a rehabilitation program and get off the Suboxone so that eventually he can be placed in a custodial or residential care facility. Legal history:there is no history in the [place] public record of incarcerations or felony arrests. Past medical history: Allergies Escitalopram. NSAIDS (NON-STEROIDAL ANTI-INFLAMMA. Venlafaxine. SOCIAL HX: Heavy tobacco smoker (cigarette)- 1 pack per day. No alcohol use or drug use. No recent travel. PROBLEMS: Ulcerative Colitis. GI Bleeding. Depression. Bipolar Disorder. Colitis. ADDITIONAL SURGERIES: Appendectomy. . Mental Status Exam: the patient is an alert interpersonally engaged male. He is believed to be a reliable informant to the best of his ability as information that is provided is internally consistent and consistent with that in the chart. Appearance: hygiene is fair; no gross neurological deficits., gait is unremarka ble; AIMS=0 Speech: Speech is she is rapid with indistinct enunciation with frequently makes some of the information difficult to assess. Thought processes: Thought processes are abstract. Judgment is adequate for safety. Associations: intact Psychotic processes: There is no indication of guarding or paranoia. There is no attention to the internal stimuli. auditory hallucinations are reported as above. He denied the presence of visual hallucinations. Judgment: Insight is good. Problem solving skills are adequate for safety. Orientation: The patient is oriented to person, place time and situation. Memory: no deficits noted in immediate, intermediate, or remote spheres. Attention: The patient is alert and interpersonally engaged. Language: Verbalizations are coherent. Fund of knowledge: Fund of knowledge is adequate. Affect/Mood: Affect is consistent with a depressed mood. he reported vague suicidal ideation without intent or plan. Affective range good Psychosis: perception unimpaired despite intrusive auditory hallucinations that he is experiencing.; reality testing intact. Diagnoses: schizophrenia?undifferentiated, acute Assessment:this is a difficult situation given that he has a long-standing history of schizophrenia but can give no feedback as to what medications have been tried without any success in the past. At this point, we will continue the Zyprexa 20 mg at bedtime and also provide when necessary dosing during the day with Geodon as needed for auditory hallucinations. He will continue with Suboxone and the Celexa. We will discuss the feasibility of placement in a rehabilitation program with manager managed backup services. If this is a reasonable possibility, tapering some from Suboxone will be discussed. Hospital Course Hospital Course Shayan presented to the emergency room endorsing suicidal thinking and recent suicide attempt as well as depression and feeling like he had no plantar purpose for moving forward. He was admitted to the neuropsychiatric unit for definitive treatment of those issues. He slowly acclimated to the individual, group and milieu therapies provided ultimately he was stabilized on his current medication with the plan to get off the Suboxone and benzodiazepines in a program in [place]. He showed significant improvement prior to discharge to that program. During the hospitalization he had routine laboratory studies were within normal limits except for a few outliers. Additionally he had a general medical evaluation was within normal limits and revealed no new acute processes. Discharge Summary The time of discharge, he denied all lethality and was absent psychosis. His mood and anxiety were well managed and he endorsed the plan to follow-up with treatment team recommendations including avoiding all drugs of abuse. He was evaluated and deemed to be absent lethality, and had reached the maximum benefit of inpatient hospitalization for discharge. Involuntary Hold Information 96 Hour Hold: 96 Hour Involuntary Admission: No 96 Hour Hold Ending Date: 05/22/19 96 Hour Hold Ending Time: 11:00 Mental Status Exam MSE Comments: This is an overweight, white male, with adequate dress, grooming, and eye contact. No abnormal movements except for improving mild psy chomotor retardation. Cooperative with exam in no acute distress. Speech was more normal rate and volume and effeminate. Mood described as nervous butt good; affect congruent. Thought process, organized. Thought content: patient denied any suicidal or homicidal ideation, there were no delusions reported or noted, patient denied any auditory or visual hallucinations. Attention, concentration, and memory appeared intact but were not formally tested. Alert and oriented times three. Insight and judgment are improving. Discharge Data Vitals: Last Vital Signs Temp 98.2 F 09/25/19 06:00 Pulse 86 09/25/19 06:00 Resp 18 09/25/19 06:00 BP 101/66 09/25/19 06:00 Pulse Ox 93 09/25/19 06:00 Discharge Plan Discharge Patient Disposition: Home, Self-Care Condition: Stable Prescriptions: Continued clonazepam 0.5 mg Tablet 0.5 mg PO TID 3 Days Qty: 8 RF: 0 hydroxyzine pamoate 50 mg capsule 50 mg PO TID 30 Days Qty: 90 RF: 1 phenytoin sodium extended 100 mg Capsule 200 mg PO BID 30 Days Qty: 120 RF: 1 lithium carbonate 450 mg Tablet Extended Release 900 mg PO BEDTIME 30 Days Qty: 60 RF: 1 nortriptyline 25 mg Capsule 50 mg PO BEDTIME 30 Days Qty: 60 RF: 1 nortriptyline 25 mg Capsule 25 mg PO BEDTIME 30 Days Qty: 30 RF: 1 mirtazapine 30 mg Tablet 30 mg PO BEDTIME 30 Days Qty: 30 RF: 1 propranolol 20 mg Tablet 20 mg PO TID PRN (Reason: Anxiety) 30 Days Qty: 90 RF: 1 fluoxetine 20 mg Capsule 60 mg PO DAILY 30 Days Qty: 90 RF: 1 Zyprexa 20 mg Tablet 20 mg PO BEDTIME 30 Days Qty: 30 RF: 1 Suboxone 8-2 mg film 2 - 8 film buccal DAILY 2 Days Qty: 4 RF: 0 Discontinued zolpidem 10 mg Tablet 10 mg PO BEDTIME 30 Days Qty: 30 RF: 1 Discharge Orders: Discharge Order (Routine); Ordered 09/25/19 Ordered By: Jag Escobar Referrals: [facility] [Other] (staff will pick you up at bus station. ) Discharge Diet: Regular Discharge Activity: Resume usual activity Discharge Date/Time: 09/25/19 15:07 Discharge Attestations NPU Time Spent in Discharge Care*: less than 30 min Specific Discharge Activities: Specific discharge activities: educating patient, discussing with case filler/social workers/dc planners, documenting/other paperwork and evaluating patient/reviewing data Coding Level of Care Code Acute Recreation Counselor for Jordan Fwkaitlin Diagnoses Acute psychosis F23 Cluster B personality disorder F60.89 Suicidal ideation R45.851 Bipolar depression F31.9
[2019-09-25 10:43] VITALS: BP 101/66; PULSE 86; RESP 18; TEMP 36.8; O2SAT 93
== END 2019-09-25 15:07 | disposition home or self-care (01) | DRG 885 ==
LOC: ER 10:52 → NP 11:02
PROVIDERS: Nurse Practitioner Family; Admitting Provider Psychiatry & Neurology Psychiatry; Visit Provider Psychiatry & Neurology Psychiatry
DX: F23 Brief psychotic disorder (principal); R45.851 Suicidal ideations; F60.89 Other specific personality disorders; F31.9 Bipolar disorder, unspecified; F17.210 Nicotine dependence, cigarettes, uncomplicated; E66.3 Overweight; Z68.28 Body mass index [BMI] 28.0-28.9, adult
CPT/HCPCS: 12345; 36415; 80053; 80178; 80185; 80306; 80307; 81001; 83690; 84443; 85025; 99284; J0573

== ENCOUNTER 2020-09-10 10:37 | Inpatient (IN) | payer MEDICARE, MEDICAID, SELFPAY ==
[2020-09-10 10:40] VITALS: BP 157/102; PULSE 110; RESP 20; TEMP 37; O2SAT 96; BMI 27.8
--- NOTE | 2020-09-10 10:45 | ED_ITS ---
Documented by User: MORA Ponce 09/10/20 12:36 HPI - Psych General: Chief Complaint: Overdose Stated Complaint: SI Time Seen by Provider: 09/10/20 10:40 History of Present Illness: HPI Narrative: Patient is a 35-year-old male who comes to the ED with SI and overdose. Patient says around 5 AM today he took approximately 120 tablets of Tylenol p.m. to kill himself. Patient has history of schizophrenia. He states that he has been suicidal in the past and that currently he is hearing voices that are telling him to kill himself. He states he has been currently taking his psych meds as prescribed but over the last week he feels like they have been helping him. This past week he is hearing the voices more and more. He denies any visual hallucinations or HI. He endorses having a little bit of nausea currently but no other symptoms. Associated symptoms: Reports auditory hallucinations and suicidal ideation; Deny visual hallucinations or homicidal ideation Review of Systems Const: Denies: fever(s), chills or fatigue Eyes: Denies: change in vision or eye discomfort ENMT: Denies: throat pain, odynophagia, nasal discharge or nasal congestion Card: Denies: chest pain, palpitations, edema, swelling of feet/ankles, dyspnea on exertion or orthopnea Resp: Denies: dyspnea, productive cough or non-productive cough GI: Denies: abdominal pain, nausea, vomiting, diarrhea, constipation or hematochezia : Denies: flank pain, difficulty urinating, dysuria or hematuria Musc: Denies: neck pain, back pain or extremity swelling Skin/Breast: Denies: rash or new lesions Neuro: Denies: headache(s), numbness in extremities or weakness in extremities Psych: Reports: auditory hallucinations and suicidal ideation; Denies: visual hallucinations or homicidal ideation [facility] ED PFSH: Medical History (Updated 09/10/20 @ 15:27 by Shabana Chahal DO) Opiate misuse Surgical History History of appendectomy Social History Smoking and tobacco status: current every day smoker Physical Exam Const: COMMON NORMALS: no acute distress, patient oriented x3 and alert GENERAL APPEARANCE: cooperative, comfortable and diaphoretic HENMT: COMMON NORMALS: normocephalic HEAD & SCALP: normocephalic MOUTH: Normal oral and palatal mucosa present THROAT: posterior oropharynx normal and uvula midline Neck/C-Spine: COMMON NORMALS: supple GENERAL: Yes normal visual inspection Resp: COMMON NORMALS: normal respiratory effort, No retractions, No use of accessory muscles and clear to auscultation bilaterally AUSCULTATION: clear to auscultation bilaterally Cardio: COMMON NORMALS: regular rate, regular rhythm, S1 normal heart sound present, S2 normal heart sound present, No gallops present (Cardio), No clicks present (Cardio), No murmurs present (Cardio) and Peripheral pulses 2+ throughout RATE: regular rate RHYTHM: regular rhythm HEART SOUNDS: S1 normal heart sound present and S2 normal heart sound present PERIPHERAL PULSES: Peripheral pulses 2+ throughout GI: COMMON NORMALS: Normal to inspection, nondistended, normoactive bowel sounds present, Soft to palpation, non-tender and no masses PALPATION: Yes Soft to palpation : COMMON NORMALS: Yes no CVA tenderness BLADDER/KIDNEY EXAM: Yes no CVA tenderness Back/Pelvis: COMMON NORMALS: no CVA tenderness Extremity: COMMON NORMALS: normal to inspection Neuro: COMMON NORMALS: patient oriented x3 and moves all extremities SENSORIUM/ORIENTATION: Yes alert Psych: COMMON NORMALS: Normal thought process present and speech normal APPEARANCE: Yes grossly normal ATTITUDE: Yes engaged ACTIVITY/MOTOR BEHAVIOR: Yes appropriate eye contact SPEECH: Yes normal speech MOOD & AFFECT: Yes anxious THOUGHT PROCESS: Normal thought process present THOUGHT CONTENT: Yes Suicidality present, No Homicidality present and Yes Hallucination(s) present auditory (He hears voices telling him to kill himself.) Skin: GENERAL SKIN EXAM: dry skin Course Vital Signs: Vital signs: Vital Signs Temperature 97.8 F 09/10/20 16:37 Pulse Rate 91 09/10/20 16:37 Respiratory Rate 15 09/10/20 16:37 Blood Pressure 123/92 09/10/20 16:37 Pulse Oximetry 96 09/10/20 16:37 MDM - Psych MDM Narrative: Medical decision making narrative: Patient is a 35-year-old male comes to the ED with SI, auditory hallucinations and an overdose. Patient says he took 120 Tylenol PM at 5:00 this morning. Due to patient's possible overdose I had Dr. Chahal involved early with patient's care I performed the initial history and physical exam. Patient's Tylenol level was low. The rest of his labs were unremarkable. Dr. Chahal contacted Dr. Arellano the psych doc on site coordinator and told him about patient case and Dr. Arellano wanted him admitted and put on a 96-hour hold. We filled out the necessary 96-hour paper work along with an affidavit. Lab Data: Attestation: I reviewed the patient's lab results. Labs: Lab Results 09/10/20 09/10/20 09/10/20 Range/Units 11:15 11:15 11:45 WBC 10.9 H (4.0-10.0) 10^3/ uL RBC 5.26 (4.1-5.3) 10^6/u L Hgb 15.4 (11.7-16.6) g/dL Hct 45.3 (42.0-52.0) % MCV 86.1 (80-94) fL MCH 29.3 (28.0-34.0) pg MCHC 34.0 (30.0-36.0) g/dL RDW 12.5 (12.1-15.1) % Plt Count 286 (130-400) 10^3/c mm MPV 10.5 H (7.4-10.4) fL Neut % (Auto) 79.3 % Lymph % (Auto) 13.8 % Sterling % (Auto) 5.9 % Eos % (Auto) 0.4 % Baso % (Auto) 0.3 % Neut # (Auto) 8.68 H (1.8-7.7) 10^3/u L Lymph # (Auto) 1.5 (0.8-4.8) 10^3/u L Sterling # (Auto) 0.7 (0.2-0.9) 10^3/u L Eos # (Auto) 0.0 (0.0-0.8) 10^3/u L Baso # (Auto) 0.0 (0.0-0.1) 10^3/u L Nucleated RBC % (a uto) 0 % Nucleated RBCs # 0.0 /100WBC Sodium 142 (136-145) mmol/L Potassium 4.1 (3.5-5.1) mmol/L Chloride 105 (98-107) mmol/L Carbon Dioxide 20 L (22-29) mmol/L Anion Gap 21.1 H (5-19) BUN 13 (6-20) mg/dL Creatinine 0.8 (0.7-1.2) mg/dL GFR Calculation 109.4 (90-130) mL/min Glucose 126 H (65-115) mg/dL Calculated Osmolal ity 296 H (285-295) mOsm/k g Calcium 9.4 (8.5-10.5) mg/dL Total Bilirubin 0.5 (0.15-1.2) mg/dL GGT AST 58 H (0-40) U/L ALT 126 H (0-41) U/L Alkaline Phosphata se 153 H (40-130) IU/L Lactate Dehydrogen ase Total Protein 6.9 (6.6-8.7) g/dL Albumin 4.2 (3.5-5.2) g/dL Globulin 2.7 (1.3-4.6) g/dL Urine Color (Yellow) Urine Appearance (CLEAR) Urine pH (5-7) Ur Specific Gravit y (1.005-1.030) Urine Protein (Negative) Urine Glucose (UA) (Normal) Urine Ketones (Negative) Urine Blood (Negative) Urine Nitrate (Negative) Urine Bilirubin (Negative) Urine Urobilinogen (Negative) mg/dL Ur Leukocyte Riya ase (Negative) Urine RBC (0-2) /hpf Urine WBC (0-5) /hpf Ur Squamous Epith Cells (0-5) /hpf Amorphous Sediment Urine Bacteria (NONE) /hpf Salicylates < 0.3 L (3-10) mg/dL Urine Opiates Scre en (Negative) ng/mL Acetaminophen < 5.0 L (10-30) ug/mL Ur Barbiturates Sc reen (Negative) ng/mL Ur Phencyclidine S crn (Negative) ng/mL Ur Amphetamines Sc reen (Negative) ng/mL U Benzodiazepines Scrn (Negative) ng/mL [place] 0.1 L (0.6-1.2) mmol/L Urine Cocaine Scre en (Negative) ng/mL U Marijuana (THC) Screen (Negative) ng/mL Ethyl Alcohol < 10 (0-10) mg/dL 09/10/20 09/10/20 09/10/20 Range/Units 11:45 12:35 12:35 WBC (4.0-10.0) 10^3/ uL RBC (4.1-5.3) 10^6/u L Hgb (11.7-16.6) g/dL Hct (42.0-52.0) % MCV (80-94) fL MCH (28.0-34.0) pg MCHC (30.0-36.0) g/dL RDW (12.1-15.1) % Plt Count (130-400) 10^3/c mm MPV (7.4-10.4) fL Neut % (Auto) % Lymph % (Auto) % Sterling % (Auto) % Eos % (Auto) % Baso % (Auto) % Neut # (Auto) (1.8-7.7) 10^3/u L Lymph # (Auto) (0.8-4.8) 10^3/u L Sterling # (Auto) (0.2-0.9) 10^3/u L Eos # (Auto) (0.0-0.8) 10^3/u L Baso # (Auto) (0.0-0.1) 10^3/u L Nucleated RBC % (a uto) % Nucleated RBCs # /100WBC Sodium (136-145) mmol/L Potassium (3.5-5.1) mmol/L Chloride (98-107) mmol/L Carbon Dioxide (22-29) mmol/L Anion Gap (5-19) BUN (6-20) mg/dL Creatinine (0.7-1.2) mg/dL GFR Calculation (90-130) mL/min Glucose (65-115) mg/dL Calculated Osmolal ity (285-295) mOsm/k g Calcium (8.5-10.5) mg/dL Total Bilirubin (0.15-1.2) mg/dL GGT Cancelled AST Cancelled (0-40) U/L ALT Cancelled (0-41) U/L Alkaline Phosphata se (40-130) IU/L Lactate Dehydrogen ase Cancelled Total Protein (6.6-8.7) g/dL Albumin (3.5-5.2) g/dL Globulin (1.3-4.6) g/dL Urine Color Yellow (Yellow) Urine Appearance Clear (CLEAR) Urine pH 5 (5-7) Ur Specific Gravit y 1.025 (1.005-1.030) Urine Protein Trace (Negative) Urine Glucose (UA) Norm (Normal) Urine Ketones Negative (Negative) Urine Blood Neg (Negative) Urine Nitrate Negative (Negative) Urine Bilirubin 1+ H (Negative) Urine Urobilinogen 1 H (Negative) mg/dL Ur Leukocyte Riya ase Negative (Negative) Urine RBC None (0-2) /hpf Urine WBC None (0-5) /hpf Ur Squamous Epith Cells 0-4 H (0-5) /hpf Amorphous Sediment Not Reportable Urine Bacteria None (NONE) /hpf Salicylates Cancelled (3-10) mg/dL Urine Opiates Scre en Negative (Negative) ng/mL Acetaminophen Cancelled (10-30) ug/mL Ur Barbiturates Sc reen Positive H (Negative) ng/mL Ur Phencyclidine S crn Negative (Negative) ng/mL Ur Amphetamines Sc reen Negative (Negative) ng/mL U Benzodiazepines Scrn Negative (Negative) ng/mL [place] (0.6-1.2) mmol/L Urine Cocaine Scre en Negative (Negative) ng/mL U Marijuana (THC) Screen Positive H (Negative) ng/mL Ethyl Alcohol (0-10) mg/dL 09/10/20 Range/Units 14:55 WBC (4.0-10.0) 10^3/ uL RBC (4.1-5.3) 10^6/u L Hgb (11.7-16.6) g/dL Hct (42.0-52.0) % MCV (80-94) fL MCH (28.0-34.0) pg MCHC (30.0-36.0) g/dL RDW (12.1-15.1) % Plt Count (130-400) 10^3/c mm MPV (7.4-10.4) fL Neut % (Auto) % Lymph % (Auto) % Sterling % (Auto) % Eos % (Auto) % Baso % (Auto) % Neut # (Auto) (1.8-7.7) 10^3/u L Lymph # (Auto) (0.8-4.8) 10^3/u L Sterling # (Auto) (0.2-0.9) 10^3/u L Eos # (Auto) (0.0-0.8) 10^3/u L Baso # (Auto) (0.0-0.1) 10^3/u L Nucleated RBC % (a uto) % Nucleated RBCs # /100WBC Sodium (136-145) mmol/L Potassium (3.5-5.1) mmol/L Chloride (98-107) mmol/L Carbon Dioxide (22-29) mmol/L Anion Gap (5-19) BUN (6-20) mg/dL Creatinine (0.7-1.2) mg/dL GFR Calculation (90-130) mL/min Glucose (65-115) mg/dL Calculated Osmolal ity (285-295) mOsm/k g Calcium (8.5-10.5) mg/dL Total Bilirubin (0.15-1.2) mg/dL GGT AST 52 H (0-40) U/L ALT 120 H (0-41) U/L Alkaline Phosphata se (40-130) IU/L Lactate Dehydrogen ase 267 H Total Protein (6.6-8.7) g/dL Albumin (3.5-5.2) g/dL Globulin (1.3-4.6) g/dL Urine Color (Yellow) Urine Appearance (CLEAR) Urine pH (5-7) Ur Specific Gravit y (1.005-1.030) Urine Protein (Negative) Urine Glucose (UA) (Normal) Urine Ketones (Negative) Urine Blood (Negative) Urine Nitrate (Negative) Urine Bilirubin (Negative) Urine Urobilinogen (Negative) mg/dL Ur Leukocyte Riya ase (Negative) Urine RBC (0-2) /hpf Urine WBC (0-5) /hpf Ur Squamous Epith Cells (0-5) /hpf Amorphous Sediment Urine Bacteria (NONE) /hpf Salicylates < 0.3 L (3-10) mg/dL Urine Opiates Scre en (Negative) ng/mL Acetaminophen < 5.0 L (10-30) ug/mL Ur Barbiturates Sc reen (Negative) ng/mL Ur Phencyclidine S crn (Negative) ng/mL Ur Amphetamines Sc reen (Negative) ng/mL U Benzodiazepines Scrn (Negative) ng/mL [place] (0.6-1.2) mmol/L Urine Cocaine Scre en (Negative) ng/mL U Marijuana (THC) Screen (Negative) ng/mL Ethyl Alcohol (0-10) mg/dL Discharge Plan Discharge Patient Disposition: Admitted As Inpatient Admit Provider: Marisol Arellano Clinical Impression: Bipolar depression Drug overdose Qualifiers: Encounter type: initial encounter Injury intent: intentional self-harm Qualified Code(s): T50.902A - Poisoning by unspecified drugs, medicaments and biological substances, intentional self-harm, initial encounter Condition: Stable Coding Level of Care Code ED [employer] for Chg 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 Documented by User: Shabana Chahal DO 09/10/20 16:48 HPI - Psych General: Chief Complaint: Overdose Stated Complaint: SI Time Seen by Provider: 09/10/20 10:40 PFSH ED PFSH: Medical History (Updated 09/10/20 @ 15:27 by Shabana Chahal DO) Opiate misuse Surgical History History of appendectomy Social History Smoking and tobacco status: current every day smoker Course Vital Signs: Vital signs: Vital Signs Temperature 97.8 F 09/10/20 16:37 Pulse Rate 91 09/10/20 16:37 Respiratory Rate 15 09/10/20 16:37 Blood Pressure 123/92 09/10/20 16:37 Pulse Oximetry 96 09/10/20 16:37 MDM - Psych MDM Narrative: Medical decision making narrative: Spoke to poison control patient had normal Tylenol level you but his liver functions were up from a year ago therefore as a precaution we will go ahead and repeat the Tylenol and liver functions from 4 hours when he arrived here just to make sure he is still within the nomogram and there night significantly elevated. If these are all stable Dr. Arellano from psychiatry accepts the patient for admission Tylenol remains normal and liver functions have improved Medical Records: Attestation: I reviewed the patient's medical records. Lab Data: Attestation: I reviewed the patient's lab results. Labs: Lab Results 09/10/20 09/10/20 09/10/20 Range/Units 11:15 11:15 11:45 WBC 10.9 H (4.0-10.0) 10^3/ uL RBC 5.26 (4.1-5.3) 10^6/u L Hgb 15.4 (11.7-16.6) g/dL Hct 45.3 (42.0-52.0) % MCV 86.1 (80-94) fL MCH 29.3 (28.0-34.0) pg MCHC 34.0 (30.0-36.0) g/dL RDW 12.5 (12.1-15.1) % Plt Count 286 (130-400) 10^3/c mm MPV 10.5 H (7.4-10.4) fL Neut % (Auto) 79.3 % Lymph % (Auto) 13.8 % Sterling % (Auto) 5.9 % Eos % (Auto) 0.4 % Baso % (Auto) 0.3 % Neut # (Auto) 8.68 H (1.8-7.7) 10^3/u L Lymph # (Auto) 1.5 (0.8-4.8) 10^3/u L Sterling # (Auto) 0.7 (0.2-0.9) 10^3/u L Eos # (Auto) 0.0 (0.0-0.8) 10^3/u L Baso # (Auto) 0.0 (0.0-0.1) 10^3/u L Nucleated RBC % (a uto) 0 % Nucleated RBCs # 0.0 /100WBC Sodium 142 (136-145) mmol/L Potassium 4.1 (3.5-5.1) mmol/L Chloride 105 (98-107) mmol/L Carbon Dioxide 20 L (22-29) mmol/L Anion Gap 21.1 H (5-19) BUN 13 (6-20) mg/dL Creatinine 0.8 (0.7-1.2) mg/dL GFR Calculation 109.4 (90-130) mL/min Glucose 126 H (65-115) mg/dL Calculated Osmolal ity 296 H (285-295) mOsm/k g Calcium 9.4 (8.5-10.5) mg/dL Total Bilirubin 0.5 (0.15-1.2) mg/dL GGT AST 58 H (0-40) U/L ALT 126 H (0-41) U/L Alkaline Phosphata se 153 H (40-130) IU/L Lactate Dehydrogen ase Total Protein 6.9 (6.6-8.7) g/dL Albumin 4.2 (3.5-5.2) g/dL Globulin 2.7 (1.3-4.6) g/dL Urine Color (Yellow) Urine Appearance (CLEAR) Urine pH (5-7) Ur Specific Gravit y (1.005-1.030) Urine Protein (Negative) Urine Glucose (UA) (Normal) Urine Ketones (Negative) Urine Blood (Negative) Urine Nitrate (Negative) Urine Bilirubin (Negative) Urine Urobilinogen (Negative) mg/dL Ur Leukocyte Riya ase (Negative) Urine RBC (0-2) /hpf Urine WBC (0-5) /hpf Ur Squamous Epith Cells (0-5) /hpf Amorphous Sediment Urine Bacteria (NONE) /hpf Salicylates < 0.3 L (3-10) mg/dL Urine Opiates Scre en (Negative) ng/mL Acetaminophen < 5.0 L (10-30) ug/mL Ur Barbiturates Sc reen (Negative) ng/mL Ur Phencyclidine S crn (Negative) ng/mL Ur Amphetamines Sc reen (Negative) ng/mL U Benzodiazepines Scrn (Negative) ng/mL [place] 0.1 L (0.6-1.2) mmol/L Urine Cocaine Scre en (Negative) ng/mL U Marijuana (THC) Screen (Negative) ng/mL Ethyl Alcohol < 10 (0-10) mg/dL 09/10/20 09/10/20 09/10/20 Range/Units 11:45 12:35 12:35 WBC (4.0-10.0) 10^3/ uL RBC (4.1-5.3) 10^6/u L Hgb (11.7-16.6) g/dL Hct (42.0-52.0) % MCV (80-94) fL MCH (28.0-34.0) pg MCHC (30.0-36.0) g/dL RDW (12.1-15.1) % Plt Count (130-400) 10^3/c mm MPV (7.4-10.4) fL Neut % (Auto) % Lymph % (Auto) % Sterling % (Auto) % Eos % (Auto) % Baso % (Auto) % Neut # (Auto) (1.8-7.7) 10^3/u L Lymph # (Auto) (0.8-4.8) 10^3/u L Sterling # (Auto) (0.2-0.9) 10^3/u L Eos # (Auto) (0.0-0.8) 10^3/u L Baso # (Auto) (0.0-0.1) 10^3/u L Nucleated RBC % (a uto) % Nucleated RBCs # /100WBC Sodium (136-145) mmol/L Potassium (3.5-5.1) mmol/L Chloride (98-107) mmol/L Carbon Dioxide (22-29) mmol/L Anion Gap (5-19) BUN (6-20) mg/dL Creatinine (0.7-1.2) mg/dL GFR Calculation (90-130) mL/min Glucose (65-115) mg/dL Calculated Osmolal ity (285-295) mOsm/k g Calcium (8.5-10.5) mg/dL Total Bilirubin (0.15-1.2) mg/dL GGT Cancelled AST Cancelled (0-40) U/L ALT Cancelled (0-41) U/L Alkaline Phosphata se (40-130) IU/L Lactate Dehydrogen ase Cancelled Total Protein (6.6-8.7) g/dL Albumin (3.5-5.2) g/dL Globulin (1.3-4.6) g/dL Urine Color Yellow (Yellow) Urine Appearance Clear (CLEAR) Urine pH 5 (5-7) Ur Specific Gravit y 1.025 (1.005-1.030) Urine Protein Trace (Negative) Urine Glucose (UA) Norm (Normal) Urine Ketones Negative (Negative) Urine Blood Neg (Negative) Urine Nitrate Negative (Negative) Urine Bilirubin 1+ H (Negative) Urine Urobilinogen 1 H (Negative) mg/dL Ur Leukocyte Riya ase Negative (Negative) Urine RBC None (0-2) /hpf Urine WBC None (0-5) /hpf Ur Squamous Epith Cells 0-4 H (0-5) /hpf Amorphous Sediment Not Reportable Urine Bacteria None (NONE) /hpf Salicylates Cancelled (3-10) mg/dL Urine Opiates Scre en Negative (Negative) ng/mL Acetaminophen Cancelled (10-30) ug/mL Ur Barbiturates Sc reen Positive H (Negative) ng/mL Ur Phencyclidine S crn Negative (Negative) ng/mL Ur Amphetamines Sc reen Negative (Negative) ng/mL U Benzodiazepines Scrn Negative (Negative) ng/mL [place] (0.6-1.2) mmol/L Urine Cocaine Scre en Negative (Negative) ng/mL U Marijuana (THC) Screen Positive H (Negative) ng/mL Ethyl Alcohol (0-10) mg/dL 09/10/20 Range/Units 14:55 WBC (4.0-10.0) 10^3/ uL RBC (4.1-5.3) 10^6/u L Hgb (11.7-16.6) g/dL Hct (42.0-52.0) % MCV (80-94) fL MCH (28.0-34.0) pg MCHC (30.0-36.0) g/dL RDW (12.1-15.1) % Plt Count (130-400) 10^3/c mm MPV (7.4-10.4) fL Neut % (Auto) % Lymph % (Auto) % Sterling % (Auto) % Eos % (Auto) % Baso % (Auto) % Neut # (Auto) (1.8-7.7) 10^3/u L Lymph # (Auto) (0.8-4.8) 10^3/u L Sterling # (Auto) (0.2-0.9) 10^3/u L Eos # (Auto) (0.0-0.8) 10^3/u L Baso # (Auto) (0.0-0.1) 10^3/u L Nucleated RBC % (a uto) % Nucleated RBCs # /100WBC Sodium (136-145) mmol/L Potassium (3.5-5.1) mmol/L Chloride (98-107) mmol/L Carbon Dioxide (22-29) mmol/L Anion Gap (5-19) BUN (6-20) mg/dL Creatinine (0.7-1.2) mg/dL GFR Calculation (90-130) mL/min Glucose (65-115) mg/dL Calculated Osmolal ity (285-295) mOsm/k g Calcium (8.5-10.5) mg/dL Total Bilirubin (0.15-1.2) mg/dL GGT AST 52 H (0-40) U/L ALT 120 H (0-41) U/L Alkaline Phosphata se (40-130) IU/L Lactate Dehydrogen ase 267 H Total Protein (6.6-8.7) g/dL Albumin (3.5-5.2) g/dL Globulin (1.3-4.6) g/dL Urine Color (Yellow) Urine Appearance (CLEAR) Urine pH (5-7) Ur Specific Gravit y (1.005-1.030) Urine Protein (Negative) Urine Glucose (UA) (Normal) Urine Ketones (Negative) Urine Blood (Negative) Urine Nitrate (Negative) Urine Bilirubin (Negative) Urine Urobilinogen (Negative) mg/dL Ur Leukocyte Riya ase (Negative) Urine RBC (0-2) /hpf Urine WBC (0-5) /hpf Ur Squamous Epith Cells (0-5) /hpf Amorphous Sediment Urine Bacteria (NONE) /hpf Salicylates < 0.3 L (3-10) mg/dL Urine Opiates Scre en (Negative) ng/mL Acetaminophen < 5.0 L (10-30) ug/mL Ur Barbiturates Sc reen (Negative) ng/mL Ur Phencyclidine S crn (Negative) ng/mL Ur Amphetamines Sc reen (Negative) ng/mL U Benzodiazepines Scrn (Negative) ng/mL [place] (0.6-1.2) mmol/L Urine Cocaine Scre en (Negative) ng/mL U Marijuana (THC) Screen (Negative) ng/mL Ethyl Alcohol (0-10) mg/dL Discharge Plan Discharge Patient Disposition: Admitted As Inpatient Admit Provider: Marisol Arellano Clinical Impression: Bipolar depression Drug overdose Qualifiers: Encounter type: initial encounter Injury intent: intentional self-harm Qu alified Code(s): T50.902A - Poisoning by unspecified drugs, medicaments and biological substances, intentional self-harm, initial encounter Condition: Stable Coding Level of Care Code ED [employer] for [place] 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
[2020-09-10 11:21] LABS: Basophils % 0.3 %; Eosinophils % 0.4 %; Hematocrit 45.3 % (42.0-52.0); Hemoglobin 15.4 g/dL (11.7-16.6); Lymphocytes # 1.5 10^3/uL (0.8-4.8); Lymphocytes % 13.8 %; Mean Corpuscular Hemoglobin 29.3 pg (28.0-34.0); Mean Corpuscular Volume 86.1 fL (80-94); Mean Platelet Volume 10.5 fL (7.4-10.4); Monocytes # 0.7 10^3/uL (0.2-0.9); Monocytes % 5.9 %; Neutrophils # 8.68 10^3/uL (1.8-7.7); Neutrophils % 79.3 %; Nucleated Red Blood Cells % 0 %; Platelet Count 286 10^3/cmm (130-400); Red Blood Count 5.26 10^6/uL (4.1-5.3); Red Cell Distribution Width 12.5 % (12.1-15.1); White Blood Count 10.9 10^3/uL (4.0-10.0)
[2020-09-10 12:03] LABS: Alanine Aminotransferase 126 U/L (0-41); Albumin Level 4.2 g/dL (3.5-5.2); Alkaline Phosphatase 153 IU/L (40-130); Aspartate Amino Transferase 58 U/L (0-40); Blood Urea Nitrogen 13 mg/dL (6-20); Calcium 9.4 mg/dL (8.5-10.5); Chloride 105 mmol/L (98-107); Globulin 2.7 g/dL (1.3-4.6); Glomerular Filtration Rate 109.4 mL/min (90-130); Glucose 126 mg/dL (65-115); Osmolality Calculated 296 mOsm/kg (285-295); Potassium 4.1 mmol/L (3.5-5.1); Sodium 142 mmol/L (136-145); Total Bilirubin 0.5 mg/dL (0.15-1.2); Total Protein 6.9 g/dL (6.6-8.7)
[2020-09-10 12:04] LABS: Acetaminophen < 5.0 ug/mL (10-30); Alcohol Level < 10 mg/dL (0-10); Anion Gap 21.1 (5-19); Carbon Dioxide 20 mmol/L (22-29); Salicylate < 0.3 mg/dL (3-10)
[2020-09-10 12:55] LABS: Amphetamines Screen Urine Negative (Negative); Barbiturates Screen Urine Positive (Negative); Benzodiazepines Screen Urine Negative (Negative); Cocaine Screen Urine Negative (Negative); Opiate Screen Urine Negative (Negative); PCP Screen Urine Negative (Negative); THC Screen Urine Positive (Negative)
[2020-09-10 13:04] LABS: Bilirubin Urine 1+ (Negative); Blood Urine Neg (Negative); Glucose Urine UA Norm (Normal); Ketones Urine Negative (Negative); Leukocyte Esterase Urine Negative (Negative); Nitrate Urine Negative (Negative); Protein Urine Trace (Negative); Specific Gravity, Urine 1.025 (1.005-1.030); Urine Appearance Clear (CLEAR); Urine Color Yellow (Yellow); Urobilinogen Urine 1 mg/dL (Negative); pH Urine 5 (5-7)
[2020-09-10 13:05] LABS: Add Urine Culture? No; Squamous Epithelial Cell Urine 0-4 /hpf (0-5)
[2020-09-10 13:20] LABS: Lithium 0.1 mmol/L (0.6-1.2)
--- NOTE | 2020-09-10 15:04 | PC.NURSE ---
Patient Round PSA in room.
[2020-09-10 15:49] LABS: Alanine Aminotransferase 120 U/L (0-41); Aspartate Amino Transferase 52 U/L (0-40); Lactate Dehydrogenase 267 U/L (135-225)
[2020-09-10 15:51] LABS: Acetaminophen < 5.0 ug/mL (10-30); Salicylate < 0.3 mg/dL (3-10)
[2020-09-10 16:28] LABS: Gamma Glutamyl Transferase 88 U/L (8-61)
[2020-09-10 16:37] VITALS: BP 123/92; PULSE 91; RESP 15; TEMP 36.6; O2SAT 96
[2020-09-10 16:51] VITALS: BP 129/94; PULSE 101; RESP 17; TEMP 36.9; O2SAT 93
[2020-09-10] MEDS: hyDROXYzine 25 mg Capsule 50 MG PO (21:10)
[2020-09-10] MEDS: trazodone 50 mg Tablet PO (21:11)
[2020-09-10 21:13] VITALS: BP 120/83; PULSE 100; RESP 16; TEMP 36.6; O2SAT 92
[2020-09-11 06:00] VITALS: BP 115/79; PULSE 106; RESP 18; TEMP 36.6; O2SAT 96
--- NOTE | 2020-09-11 10:24 | P.HP_ITS ---
Providers/Chief Complaint Admitting Physician: Marisol Arellano DO Chief Complaint: SI HPI NPU History of Present Illness Shayan Dickson is a 35 year old male who presented to the emergency department with the following report: Chief Complaint: Overdose Stated Complaint: SI Time Seen by Provider: 09/10/20 10:40 History of Present Illness: HPI Narrative: Patient is a 35-year-old male who comes to the ED with SI and overdose. Patient says around 5 AM today he took approximately 120 tablets of Tylenol p.m. to kill himself. Patient has history of schizophrenia. He states that he has been suicidal in the past and that currently he is hearing voices that are telling him to kill himself. He states he has been currently taking his psych meds as prescribed but over the last week he feels like they have been helping him. This past week he is hearing the voices more and more. He denies any visual hallucinations or HI. He endorses having a little bit of nausea currently but no other symptoms. Associated symptoms: Reports auditory hallucinations and suicidal ideation; Deny visual hallucinations or homicidal ideation. He was admitted to the neuropsychiatric unit for definitive treatment of those issues. Shayan presents today reporting that he had left ear over a year ago and went down to a friend's place in another state had been doing fairly well. He reports that his uncle started having problems never brought him back. He reports that the reason why he came in was that his voices were increasing and he needed to have some treatment for that. We reviewed his medications and the different ones he had been on identify something he could try. He reports the Zyprexa has been effective for him but that at some point after he left this with him over the Thorazine and the Thorazine stopping helpful. He also was very focused on Suboxone reporting that he is been taking it and he started to have withdrawal symptoms secondary to it not being prescribed. We were able to review his records and determined that he had not had an active prescription at this time. Explained to him our policy only prescribing Suboxone to people with active prescription he had already stated he had the medication available at home but then was very elusive about having somebody bring it to substantiate his claim that he has been taking less to preserve it as he tried to get an appointment. We discussed the risk-benefit alternatives of a trial of Geodon and he understood agreed proceed as documented in his note. He denied any substantive changes in his psychosocial history outside [place] so an excerpt from his previous note is included below. Per his 09/17/2019 [facility] inpatient psychiatric eval: History of Present Illness Shayan Dickson is a 34 year old male Shayan presented to the emergency room reporting a decompensation and wanting to secondary to running out of his medications. His report is that he had been taking his medications as prescribed but was not allowed to belt picker his medication secondary to something to do with his insurance, that he did not understand. He reports that the medications that had been started in his last hospitalization were working fine and he was feeling optimistic about things, continuing to go in the right direction and improve, but as he got further away from them not being able to refill his medications, he started feeling worse and worse, and now he just reports that he is fed up with life and wanting to kill himself. He was admitted to the neuro- psychiatric unit for definitive treatment of those issues. We continued his current medications and agreed to do some investigation into his medications which were discontinued secondary to availability to make sure that it is not something that will prevent that in the future as well. We agreed that if we were able to identify that it was a glitch, that we would restart those medications and if we identify that it was going to be a problem moving forward, we would attempt an alternative treatment plan. He understood and agreed to proceed as is documented in this note. We reviewed his last hospitalization record from 06-25-19 and he denied any substantive changes since that time. An excerpt of that evaluation is included below. Per his last [facility] IP eval 06/25/2019: HPI NPU History of Present Illness Shayan Dickson is a 34 year old male who presents today reporting that he is doing okay. He reports that his Zyprexa was discontinued, but he could give no explanation for why that was the case. We discussed his repeat behavior from October of last year which was swallowing the ends of a couple BIC razors, which had already been used, and were fairly dull in this reported suicide attempt. He could not move away from the fact that it was a real and valid attempt and not some kind of gesture. He reported that he thought that if he took those that they would slice him but to be clear these were not actual razorblades that were open. This was little plastic tops of cheap razors that had double blades in them, but they are kind of contained in the plastic so there is some risk, but not extreme risk. The surgeon went in and took them out and had them sent away for testing. We discussed the fact that he does have intellectual disability within special education classes in school, has limited functioning in that way. He continues to live with his uncle and his five dogs. He reports that he will never do this thing with the razors again. We talked about the fact that if he did in fact succeed, that his dogs would be left alone. He reported that he thought about that, but there seemed to be limited connectivity. We reviewed his most recent psychiatric evaluation here and he denied any substantive changes in the history or psychosocial circumstances. Per recent [facility] eval 05/17/2019: HPI NPU History of Present Illness Chief complaint: the voices are so bad that I'm going to kill myself. History of present illness: Shayan Dickson is a 34 year old male who tells an undocumented fairly reasonable story of a life lived suffering auditory hallucinations to varying degrees. When he is doing well, he will hear muttering voices that do not cause him a great deal of difficulty. He states that he seldom is free of the voices. HE deons not report taking medication for this problem on a terminal block assembler or regular basis. 3 months ago, the voices began getting worse. He is has no theory as to why they have gotten worse. 3 weeks ago, they began getting intrusive to the point where he was willing to end his life just to free himself from the torture from these voices. He hears a number of different voices. He is able to interpret who they are. They are from important people in his life. These include a woman that he knows and Her boyfriend, his stepbrother and his . they Say demeaning things in a very loud manner. They tell him that he should and they tell him how he should kill himself. in spite of having struggled with during much of his life, he cannot give any guidance as to what interventions have been helpful. He said that he took lithium for a while and it was quite helpful. However it stopped working. It is noted that he was hospitalized here in October 2018 and was discharged on a combination of Suboxone, Zyprexa, and citalopram. He can give no assessment as to whether the Zyprexa helped him with his voices. He says that if the voices are reduced, he will no longr be suicidal. He is ambivalent about symptoms of depression. He says that he does not do anything enjoyable and simply passes this time when his phone and taking care of animals around his arm. He reports good sleep. He has no specific suicide plan this time. He said suicide thoughts were proceeded by the worsening of the voices. His urine drug screen is negative. He is actively taking the Suboxone and receives it from an outpatient therapist. However he has not continued his me dications otherwise from discharge in October 2018. Mental health history: history of this patient was very difficult to acquire. He talks very rapidly and in the low mumbling fashion. His thoughts are mildly disorganized.he reports that originally he grew up in [place] and that at one point he left a rehabilitation program there and moved to [place]. He was only in [place] for 3 months when there were some financial difficulties and he came to the [facility] in 2010. He gives no further history regarding mental health care. It is noted that he can give no advisement regarding any other medication trials that have had any effect positive for negative on his auditory hallucinations. notes from his admission to this unit in October 2018: 11/13/2018 Shayan presents today reporting that the situation with his razor blade centered around his loss of his fianc?e. He reports that his significant other had committed suicide about 3 days shy of 2 years of when he made this suicide attempt before admission. He reports that he was feeling very low without feeling a clear sense of relief. And he had read online that he swallowed a razor blade that it would go through certain parts and because it was internal organs you would not feel it as it was slicing through things and that he would bleed out in his sleep. He reports that when he woke up and was alive but had a rectal bleeding he got really anxious and that when he came to the hospital. He is passed the razor blade now and at this point he reports that he is feeling better and more optimistic. With his first day on the psychiatric unit we discussed the fact that we needed to observe him for a couple of days to get a sense of where he really is prior to being comfortable with discharge. We had filed a 21-day hold paperwork but were able to negotiate and get an agreement that he will work with us over the next few days with a plan for discharge at the beginning of the week. Hospital Course: Shayan presented to the unit after being in the ICU and followed by surgery secondary to the ingestion of a razor blade or at least razor blade containing item from the head of a razor. After being followed until the object had been defecated since they were unable to get it by surgical means he was transferred to the NPU. After he woke up alive he reports that he got himself to the hospital for help and reports that he did not have any lethality after awaking and felt a desire to get help and not continue with self-injurious suicidal behaviors. So after a few days in the ICU he spent a few days in the NPU where he was observed and each day denied any lethality and a desire to go home and continue with his life. His medications were continued. Once he got to the NPU he acclimated to the individual, group and milieu therapies. While he was in the hospital he had routine laboratory studies which were within normal limits except for a few outliers. Those can be seen below. He also had a general medical evaluation this was within normal limits and revealed no acute processes except for the issue with the intentional ingestion. At the time of discharge his mood had improved, his lethality had resolved and he was sleeping better. He endorsed the plan to take his medication as prescribed, continue with his recovery oriented outpatient treatments and abstain from drugs of abuse as well as self-injurious and suicidal behaviors. He had obtained all the benefits he could get from the inpatient unit so he was discharged. Social history:the patient is currently supporting himself through his disability payments. He lives with uncle who apparently has a farm. He spends much of his time helping his uncle with daily activities around the farm such as feeding animals and taking care of the general grounds. He engages in no enjoyable activities and largely spends his time playing on his phone. His uncle apparently is advanced in age and is concerned about Shayan's well-being as the uncle's health declines. Shayan's uncle has advised him to go to a rehabilitation program and get off the Suboxone so that eventually he can be placed in a prison or residential care facility. Legal history:there is no history in the [place] public record of incarcerations or felony arrests. Past medical history: Allergies Escitalopram. NSAIDS (NON-STEROIDAL ANTI-INFLAMMA. Venlafaxine. SOCIAL HX: Heavy tobacco smoker (cigarette)- 1 pack per day. No alcohol use or drug use. No recent travel. PROBLEMS: Ulcerative Colitis. GI Bleeding. Depression. Bipolar Disorder. Colitis. ADDITIONAL SURGERIES: Appendectomy. . Mental Status Exam: the patient is an alert interpersonally engaged male. He is believed to be a reliable informant to the best of his ability as information that is provided is internally consistent and consistent with that in the chart. Appearance: hygiene is fair; no gross neurological deficits., gait is unremarkable; AIMS=0 Speech: Speech is she is rapid with indistinct enunciation with frequently makes some of the information difficult to assess. Thought processes: Thought processes are abstract. Judgment is adequate for safety. Associations: intact Psychotic processes: There is no indication of guarding or paranoia. There is no attention to the internal stimuli. auditory hallucinations are reported as above. He denied the presence of visual hallucinations. Judgment: Insight is good. Problem solving skills are adequate for safety. Orientation: The patient is oriented to person, place time and situation. Memory: no deficits noted in immediate, intermediate, or remote spheres. Attention: The patient is alert and interpersonally engaged. Language: Verbalizations are coherent. Fund of knowledge: Fund of knowledge is adequate. Affect/Mood: Affect is consistent with a depressed mood. he reported vague suicidal ideation without intent or plan. Affective range good Psychosis: perception unimpaired despite intrusive auditory hallucinations that he is experiencing.; reality testing intact. Diagnoses: schizophrenia?undifferentiated, acute Assessment:this is a difficult situation given that he has a long-standing history of schizophrenia but can give no feedback as to what medications have been tried without any success in the past. At this point, we will continue the Zyprexa 20 mg at bedtime and also provide when necessary dosing during the day with Geodon as needed for auditory hallucinations. He will continue with Suboxone and the Celexa. We will discuss the feasibility of placement in a rehabilitation program with social service manager. If this is a reasonable possibility, tapering some from Suboxone will be discussed. Meds NPU Home Medications Medication Instructions Recorded Confirmed Last Taken Type buprenorphine-naloxone [Suboxone] 2 - 8 film BUCCAL DAILY 2 Days #4 09/25/19 09/10/20 09/09/20 Rx ea amitriptyline 100 mg PO BEDTIME 09/10/20 09/10/20 09/09/20 History chlorpromazine [Thorazine] 600 mg PO BEDTIME 09/10/20 09/10/20 09/09/20 History clonazepam 0.5 mg PO TID PRN 09/10/20 09/10/20 Unknown History gabapentin 800 mg PO TID 09/10/20 09/10/20 09/09/20 History haloperidol [Haldol] 5 mg PO DAILY 09/10/20 09/10/20 09/09/20 History levetiracetam [Keppra] 500 mg PO BID 09/10/20 09/10/20 09/09/20 History phenytoin sodium extended See Rx Instructions .ROUTE .COMPLEX 09/10/20 09/10/20 09/09/20 History Allergies Allergy/AdvReac Type Severity Reaction Status Date / Time mushroom Allergy Unknown Unknown Verified 09/16/19 10:37 escitalopram [From Lexapro] Allergy ALGY-Anaphy Verified 09/16/19 10:37 laxis NSAIDS (Non-Steroidal Allergy ADR-Abdominal Verified 09/16/19 10:37 Anti-Inflamma Pain venlafaxine [From Effexor] Allergy ALGY-Anaphy Verified 09/16/19 10:37 laxis PFS NPU PFSH: Medical History (Updated 09/12/20 @ 06:56 by Jag Escobar MD) Opiate misuse Surgical History History of appendectomy Social History Smoking and tobacco status: current every day smoker Mental Status Exam MSE Comments: This is an overweight, white male in hospital scrubs with adequate grooming, and eye contact. No abnormal movements except for improving mild psychomotor retardation. Cooperative with exam in no mild distress. Speech was slightly decreased rate and volume and effeminate. Mood described as okay I guess; affect slightly subdued. Thought process, organized. Thought content: patient denied any suicidal or homicidal ideation, there were no delusions reported or noted, patient endorsed auditory but denied visual hallucinations. Attention, concentration, and memory appeared intact but were not formally tested. He was alert and oriented times three. Insight and judgment are limited and impulse control is limited. Vitals/I&O/Wt Last Vital Signs Temp 97.8 F 09/11/20 06:00 Pulse 106 H 09/11/20 06:00 Resp 18 09/11/20 06:00 BP 115/79 09/11/20 06:00 Pulse Ox 96 09/11/20 06:00 Weight last 48 hrs Weight 90.718 kg Data NPU : 09/10/20 11:15 09/10/20 11:15 A&P Assessment and plan (1) Drug overdose: Status: Acute Qualifiers: Encounter type: initial encounter Injury intent: intentional self-harm Qualified Code(s): T50.902A - Poisoning by unspecified drugs, medicaments and biological substances, intentional self-harm, initial encounter (2) Cluster B personality disorder: Status: Acute (3) Bipolar depression: Status: Acute (4) Psychosis: Status: Acute Additional A&P Information This is a 35 year old, white male, with history of bipolar disorder, Cluster B personality disorder, and psychosis, along with opiate use disorder or agonist therapy, who presents with problems with access to his medication which had been changed after his last hospitalization. 1. Continue current medication. Start Geodon 20 mg p.o. twice daily with me als. 2. Continue every 15 minute checks for safety. 3. Encourage individual, group and milieu therapies. 4. Encourage sober living treatment after discharge at the highest level of care to which he is willing to commit. Involuntary Hold Information 96 Hour Hold: 96 Hour Involuntary Admission: Yes 96 Hour Hold Ending Date: 09/16/20 96 Hour Hold Ending Time: 11:45 Attestations NPU Medical Necessity Statement*: Inpatient hospitalization is medically necessary and the clinically appropriate intervention at this time. We will monitor medications and make changes as indicated. Patient will be in the hospital for over two midnights. Likely length of stay 3 to 5 days. 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
[2020-09-11] MEDS: nicotine 2 mg Gum BUCCAL ×2 (12:11→15:47)
[2020-09-11 14:00] VITALS: BP 115/71; PULSE 86; RESP 18; TEMP 36.6; O2SAT 97
[2020-09-11] MEDS: loperamide 2 mg Capsule PO (17:33)
--- NOTE | 2020-09-11 19:15 | PC.NURSE ---
Pt behavior Patient requested medication, stated the voices are getting real bad and I feel like I am going to start banging my head. Pt voiced frustration regarding his lack of suboxone and home medication delivery since admitted. Staff considered best option to reduce agitation, offered medication to pt IM, pt was apprehensive but cooperative. Pt and nurses followed pt into his room and administered, Haldol 5 mg IM, Benadryl 50 mg IM, Ativan 2 mg IM given at 1932. Patient was anxious about the needles, held the hand of other nurse, this nurse sat with patient for approximately 15-20 min, pt began to calm down, stated, the voices are still here but they are tolerable now. Pt stated, I will come to the nurses station if they return. Pt ate a snack, drank a glass of water and orange juice, and went to sleep.
[2020-09-11] MEDS: LORazepam 2 mg/mL INJ 1 mL IM (19:32)
[2020-09-11] MEDS: haloperidol inj 5 mg/mL INJ 1 mL IM (19:32)
[2020-09-11] MEDS: diphenhydrAMINE 50 mg/mL SDV 1mL IM (19:33)
--- NOTE | 2020-09-11 19:42 | PC.NURSE ---
The patient came to the nurse's station at 1919. He said, the voices have become really bad and I think I am going to start banging my head. Asked if he would like some medication to help with the symptoms. He replied, I don't think that is going to help with what I am going to do. I asked another RN to sit with the patient for safety while I collected meds for the patient. Haldol 5 mg IM, Benadryl 50 mg IM, Ativan 2 mg IM given at 1931. The patient was cooperative with the administration of the medications. A staff member will continue to sit with the patient until he reports relief from the urge to self harm.
--- NOTE | 2020-09-11 19:55 | PC.NURSE ---
Addendum entered by Maria M Godwin RN 09/12/20 02:01: pt got up to use restroom and returned to bed Original Note: Pt behavior @1920-Patient requested medication, stated the voices are getting real bad and I feel like I am going to start banging my head. Pt voiced frustration regarding his lack of suboxone and home medication delivery since admitted. Staff considered best option to reduce agitation, offered medication to pt IM, pt was apprehensive but cooperative. Pt and nurses followed pt into his room and administered, Haldol 5 mg IM, Benadryl 50 mg IM, Ativan 2 mg IM given at 193. Patient was anxious about the needles, held the hand of other nurse, this nurse sat with patient for approximately 15-20 min, pt began to calm down, stated, the voices are still here but they are tolerable now. Pt stated, I will come to the nurses station if they return. Pt ate a snack, drank a glass of water and orange juice, and went to sleep.
[2020-09-11 21:08] VITALS: BP 110/75; PULSE 92; RESP 17; TEMP 36.8; O2SAT 95
--- NOTE | 2020-09-11 23:33 | PC.NURSE ---
In bed, quiet, appears sleeping.
[2020-09-12 06:00] VITALS: BP 126/76; PULSE 93; RESP 14; TEMP 37.2; O2SAT 94
[2020-09-12] MEDS: ziprasidone hcl 20 mg Capsule PO ×2 (08:03→16:40)
[2020-09-12] MEDS: nicotine 2 mg Gum BUCCAL ×2 (08:06→16:06)
--- NOTE | 2020-09-12 11:33 | PC.NURSE ---
Patient came to the nurses station stating that he had thoughts of hurting himself and that he was unsafe to be alone. Patient moved to the nurses station in direct view of the nurses. Patient was given PRN medication to help with anxiety and psychosis. Patient currently sitting on the bench next to the nurses station. Provider notified.
--- NOTE | 2020-09-12 11:35 | PC.NURSE ---
Patient refused PRN medication.
[2020-09-12] MEDS: water for injection-sterile 10 ML (12:36)
[2020-09-12] MEDS: ziprasidone 20 mg/mL SDV IM (12:37)
[2020-09-12 14:00] VITALS: BP 107/73; PULSE 98; RESP 16; TEMP 37.1; O2SAT 92
--- NOTE | 2020-09-12 14:26 | PC.NURSE ---
PRN 12:37 administered Geodon 20 mg IM to pt with agitation and behaviors. Pt stated that he was having thoughts of harming himself, sat pt near the nurses station to observe, pt began to bang the back of his head on the wall forcefully. Pt was asked to please stop the self harm behaviors, pt then turned around and began to bang his forehead. Dr. Esocbar ordered Geodon IM injection at this time. will continue to monitor pt. 0115 Pt is now sleeping in his room, will continue to monitor pt.
[2020-09-12] MEDS: loperamide 2 mg Capsule PO (16:40)
[2020-09-12] MEDS: hyDROXYzine 25 mg Capsule 50 MG PO (17:40)
--- NOTE | 2020-09-12 17:53 | PM.NPN ---
Subjective NPU Subjective: Interval history: Jan presents today endorsing that things are going a little better. He continues to be focused about starting certain medications. We continue to discuss the importance of him avoiding certain medications given his propensity for addiction and his history of Suboxone use. It appears that most importantly he has been disconnected from treatment during the move [place] and we will work with him to stabilize his resources here. He reports that his uncle might need his assistance with medical issues tomorrow and is starting to be focused on discharge though this may be related to refusal to start the exact medications that he wants. Mental Status Exam MSE Comments: This is an overweight, white male in hospital scrubs with adequate grooming, and eye contact. No abnormal movements. Cooperative with exam in no acute distress. Speech was more normal rate and volume and effeminate. Mood described as a little better; affect more euthymic. Thought process, organized. Thought content: patient denied any suicidal or homicidal ideation, there were no delusions reported or noted, patient endorsed auditory but denied visual hallucinations. Attention, concentration, and memory appeared intact but were not formally tested. He was alert and oriented times three. Insight and judgment are limited and impulse control is limited. Vitals/I&O/Wt Last Vital Signs Temp 97.8 F 09/12/20 20:17 Pulse 102 H 09/12/20 20:17 Resp 18 09/12/20 20:17 BP 110/72 09/12/20 20:17 Pulse Ox 100 09/12/20 20:17 Data NPU : 09/10/20 11:15 09/10/20 11:15 A&P Additional A&P Information (1) Drug overdose: (2) Cluster B personality disorder: (3) Bipolar depression: (4) Psychosis: Additional A&P Information This is a 35 year old, white male, with history of bipolar disorder, Cluster B personality disorder, and psychosis, along with opiate use disorder or agonist therapy, who presents with problems with access to his medication which had been changed after his last hospitalization. 1. Continue current medication. 2. Continue every 15 minute checks for safety. 3. Encourage individual, group and milieu therapies. 4. Encourage sober living treatment after discharge at the highest level of care to which he is willing to commit. Involuntary Hold Information 96 Hour Hold: 96 Hour Involuntary Admission: Yes 96 Hour Hold Ending Date: 09/16/20 96 Hour Hold Ending Time: 11:45 Attestations NPU Medical Necessity Statement*: Inpatient hospitalization is medically necessary and the clinically appropriate intervention at this time. We will monitor medications and make changes as indicated. Likely length of stay 1-3 days. 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
--- NOTE | 2020-09-12 19:20 | PC.NURSE ---
Behavior at 1930 the patient came to the nurse's station saying, my voices are bad again. Med nurse offered PO Zyprexa Zydis, pt refused, offered IM Geodon, pt became more agitated, stated IT DONT WORK, PLEASE GIVE ME WHAT YOU GAVE ME THE OTHER DAY.. IT WORKS FOR ME. NURSE CALLED PHYSICIAN, INFORMED HIM OF PT'S INCREASED AGITATED STATE. NURSING REQUESTED PT TO SIT ON THE BENCH WHILE MED NURSE GATHERED MEDICATION, PT BEGAN TO BANG HIS HEAD LOUDLY ON THE WALL..RN SAT WITH PATIENT, SUCCESSFULLY DE-ESCALATED BEHAVIOR, ALLOWING THE PATIENT TO REGAIN SOME CONTROL, WALKED PT TO HIS ROOM, MED NURSE ADMINISTERED MEDICATION. NURSE OBSERVED MED NURSE ADMINISTER.. Haldol 5 mg im, Benadryl 50 mg im, Ativan 2 mg im. RN INCREASED OBSERVATION OF PATIENT UNTIL HE WAS ABLE TO CALM DOWN. RN REASSESSED PT APPROXIMATELY 15-20 MIN POST INJECTIONS, PT STATED, THE VOICES ARE QUIETER, THANK YOU. PT RESPONDED WELL TO MEDICATION
[2020-09-12] MEDS: LORazepam 2 mg/mL INJ 1 mL IM (19:46)
[2020-09-12] MEDS: haloperidol inj 5 mg/mL INJ 1 mL IM (19:46)
[2020-09-12] MEDS: diphenhydrAMINE 50 mg/mL SDV 1mL IM (19:47)
[2020-09-12 20:17] VITALS: BP 110/72; PULSE 102; RESP 18; TEMP 36.6; O2SAT 100
--- NOTE | 2020-09-12 20:19 | PC.RESP ---
Smoking Cessation information sent to patient.
--- NOTE | 2020-09-12 21:39 | PC.NURSE ---
at 1930 the patient came to the nurse's station saying, my voices are bad again. Offered the patient Zyprexa po which he refused. He also refused Geodon IM. He said, I told the doctor the Geodon doesn't work and he just sat there and did nothing. The patient sat on the bench near the nurse's station and began banging his head against the wall. RN, Maria M, sat with him and convinced him to stop harming himself. The patient agreed to control his behavior and sit near the nurse's station while a call was placed to the MD. Dr. Escobar notified of patients behavior and refusal to take any prn medications other than Haldol 5 mg im, Benadryl 50 mg im, Ativan 2 mg im. Order received to give the meds the patient requested. The im meds were given at 1946. The patient was reassessed after 15 minutes and he reported partial relief of voices and self harm thoughts.
--- NOTE | 2020-09-13 05:09 | PC.NURSE ---
CONTACTED PHARMACY PT LAST FILLED SUBOXONE 8-2 MEDICATION AT: [id number] [address] [place], [place] [address] pHARMACIST STATED, PT LAST FILLED THIS PRESCRIPTION ON 07/03/20, 30 DAY SUPPLY, WITH A QUANTITY OF 60. PRESCRIBING PHYSICIAN: DR MARICARMEN AHUJA DO [phone] 2ND CONTACT # Dr. Maricarmen Ahuja D.O. [address] [place] [address] Main
[2020-09-13 06:00] VITALS: RESP 15
[2020-09-13] MEDS: ziprasidone hcl 20 mg Capsule PO (07:00)
--- NOTE | 2020-09-13 08:53 | PM.NPN ---
Subjective NPU Subjective: Interval history: That presents today a bit more cooperative and willing to work with us on a plan to get him discharged by tomorrow but also get his medications back on track and get connected with patient versus necessary for his success. We were able to reach out to family and identified when the assistance would be needed for his uncle. He reports he is eating and sleeping better and he does appear to have less irritability. Mental Status Exam MSE Comments: This is an overweight, white male in hospital scrubs with adequate grooming, and eye contact. No abnormal movements. Cooperative with exam in no acute distress. Speech was more normal rate and volume and effeminate. Mood described as doing better better; affect more euthymic. Thought process, organized. Thought content: patient denied any suicidal or homicidal ideation, there were no delusions reported or noted, patient denied auditory or visual hallucinations. Attention, concentration, and memory appeared intact but were not formally tested. He was alert and oriented times three. Insight and judgment are limited, but improving and impulse control is limited. Vitals/I&O/Wt Last Vital Signs Temp 97.8 F 09/12/20 20:17 Pulse 102 H 09/12/20 20:17 Resp 15 09/13/20 06:00 BP 110/72 09/12/20 20:17 Pulse Ox 100 09/12/20 20:17 Data NPU : 09/10/20 11:15 09/10/20 11:15 A&P Additional A&P Information (1) Drug overdose: (2) Cluster B personality disorder: (3) Bipolar depression: (4) Psychosis: Additional A&P Information This is a 35 year old, white male, with history of bipolar disorder, Cluster B personality disorder, and psychosis, along with opiate use disorder or agonist therapy, who presents with problems with access to his medication which had been changed after his last hospitalization. 1. Continue current medication. 2. Continue every 15 minute checks for safety. 3. Encourage individual, group and milieu therapies. 4. Encourage sober living treatment after discharge at the highest level of care to which he is willing to commit. Involuntary Hold Information 96 Hour Hold: 96 Hour Involuntary Admission: Yes 96 Hour Hold Ending Date: 09/16/20 96 Hour Hold Ending Time: 11:45 Attestations NPU Medical Necessity Statement*: Inpatient hospitalization is medically necessary and the clinically appropriate intervention at this time. We will monitor medications and make changes as indicated. Likely length of stay 1-2 days. 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
[2020-09-13] MEDS: haloperidol inj 5 mg/mL INJ 1 mL IM (10:50)
[2020-09-13] MEDS: diphenhydrAMINE 50 mg/mL SDV 1mL IM (10:50)
[2020-09-13] MEDS: LORazepam 2 mg/mL INJ 1 mL IM (10:50)
[2020-09-13 14:00] VITALS: BP 110/72; PULSE 102; RESP 15; TEMP 36.6; O2SAT 100
[2020-09-13] MEDS: nicotine 2 mg Gum BUCCAL ×2 (15:42→17:39)
[2020-09-13] MEDS: water for injection-sterile 10 ML (17:33)
[2020-09-13] MEDS: ziprasidone 20 mg/mL SDV (17:34)
--- NOTE | 2020-09-13 19:09 | PC.NURSE ---
late entry PRN 1050 administered B52 for agitation, auditory commands to self harm, anxiety. Will continue to monitor pt. 1125 pt is sleeping in bed, will continue to monitor pt.
[2020-09-13 22:00] VITALS: BP 100/64; PULSE 75; RESP 18; TEMP 36.6; O2SAT 99
[2020-09-14] MEDS: hyDROXYzine 25 mg Capsule 50 MG PO ×2 (00:47→09:31)
[2020-09-14] MEDS: trazodone 50 mg Tablet PO (00:47)
--- NOTE | 2020-09-14 00:47 | PC.NURSE ---
BEHAVIOR PT CAME TO NURSING DESK, HE HAS SLEPT INTERMITTENTLY SINCE THE BEGINNING OF SHIFT. PER HANDOFF REPORT, PT WAS HEARING INTENSE VOICES AND WAS BANGING HIS HEAD. RECEIVED MEDICATION THAT MADE HIM TIRED. CURRENTLY, PT REPORTS HEARING VOICES, sTATED THE VOICES ARE STILL HERE BUT THEY ARE BETTER, MAY I HAVE SOMETHING TO HELP ME SLEEP AND HELP ME WITH MY ANXIETY. MED NURSE WAS PRESENT AND WENT TO RETRIEVE MEDICATIONS TO ASSIST PATIENT. PT REQUESTED SOME WATER, ORANGE JUICE, AND WAS PROVIDED APPLES W/PEANUT BUTTER TO SNACK ON. PT ACCEPTED MEDICATION FROM MED NURSE, SAID THANK YOU. AND RETURNED TO HIS ROOM TO REST. WILL BE REASSESSED TO DETERMINE IF MEDICATION IS EFFECTIVE.
[2020-09-14 06:00] VITALS: RESP 16
[2020-09-14] MEDS: ziprasidone hcl 20 mg Capsule PO (07:51)
[2020-09-14] MEDS: nicotine 2 mg Gum BUCCAL (10:03)
[2020-09-14] MEDS: loperamide 2 mg Capsule PO (12:33)
[2020-09-14 13:55] VITALS: BP 114/79; PULSE 95; RESP 16; TEMP 37; O2SAT 95
--- NOTE | 2020-09-14 14:46 | P.DS_ITS ---
Diagnoses at Discharge Discharge Diagnosis (1) Drug overdose: Status: Acute Qualifiers: Encounter type: initial encounter Injury intent: intentional self-harm Qualified Code(s): T50.902A - Poisoning by unspecified drugs, medicaments and biological substances, intentional self-harm, initial encounter (2) Cluster B personality disorder: Status: Acute (3) Bipolar depression: Status: Acute (4) Psychosis: Status: Acute Reason for Visit Reason for Visit: SI Brief History: History of Present Illness Shayan Dickson is a 35 year old male who presented to the emergency department with the following report: Chief Complaint: Overdose Stated Complaint: SI Time Seen by Provider: 09/10/20 10:40 History of Present Illness: HPI Narrative: Patient is a 35-year-old male who comes to the ED with SI and overdose. Patient says around 5 AM today he took approximately 120 tablets of Tylenol p.m. to kill himself. Patient has history of schizophrenia. He states that he has been suicidal in the past and that currently he is hearing voices that are telling him to kill himself. He states he has been currently taking his psych meds as prescribed but over the last week he feels like they have been helping him. This past week he is hearing the voices more and more. He denies any visual hallucinations or HI. He endorses having a little bit of nausea currently but no other symptoms. Associated symptoms: Reports auditory hallucinations and suicidal ideation; Deny visual hallucinations or homicidal ideation. He was admitted to the neuropsychiatric unit for definitive treatment of those issues. Shayan presents today reporting that he had left ear over a year ago and went down to a friend's place in another state had been doing fairly well. He reports that his uncle started having problems never brought him back. He reports that the reason why he came in was that his voices were increasing and he needed to have some treatment for that. We reviewed his medications and the different ones he had been on identify something he could try. He reports the Zyprexa has been effective for him but that at some point after he left this with him over the Thorazine and the Thorazine stopping helpful. He also was very focused on Suboxone reporting that he is been taking it and he started to have withdrawal symptoms secondary to it not being prescribed. We were able to review his records and determined that he had not had an active prescription at this time. Explained to him our policy only prescribing Suboxone to people with active prescription he had already stated he had the medication available at home but then was very elusive about having somebody bring it to substantiate his claim that he has been taking less to preserve it as he tried to get an appointment. We discussed the risk-benefit alternatives of a trial of Geodon and he understood agreed proceed as documented in his note. He denied any substantive changes in his psychosocial history outside [place] so an excerpt from his previous note is included below. Per his 09/17/2019 [facility] inpatient psychiatric eval: History of Present Illness Shayan Dickson is a 34 year old male Shayan presented to the emergency room reporting a decompensation and wanting to secondary to running out of his medications. 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 He reports that the medications that had been started in his last hospitalization were working fine and he was feeling optimistic about things, continuing to go in the right direction and i mprove, but as he got further away from them not being able to refill his medications, he started feeling worse and worse, and now he just reports that he is fed up with life and wanting to kill himself. He was admitted to the neuro- psychiatric unit for definitive treatment of those issues. We continued his current medications and agreed to do some investigation into his medications which were discontinued secondary to availability to make sure that it is not something that will prevent that in the future as well. We agreed that if we were able to identify that it was a glitch, that we would restart those medications and if we identify that it was going to be a problem moving forward, we would attempt an alternative treatment plan. He understood and agreed to proceed as is documented in this note. We reviewed his last hospitalization record from 06-25-19 and he denied any substantive changes since that time. An excerpt of that evaluation is included below. Per his last [facility] [place] 06/25/2019: HPI NPU History of Present Illness Shayan Dickson is a 34 year old male who presents today reporting that he is doing okay. He reports that his Zyprexa was discontinued, but he could give no explanation for why that was the case. We discussed his repeat behavior from October of last year which was swallowing the ends of a couple BIC razors, which had already been used, and were fairly dull in this reported suicide attempt. He could not move away from the fact that it was a real and valid attempt and not some kind of gesture. He reported that he thought that if he took those that they would slice him but to be clear these were not actual razorblades that were open. This was little plastic tops of cheap razors that had double blades in them, but they are kind of contained in the plastic so there is some risk, but not extreme risk. The surgeon went in and took them out and had them sent away for testing. We discussed the fact that he does have intellectual disability within special education classes in school, has limited functioning in that way. He continues to live with his uncle and his five dogs. He reports that he will never do this thing with the razors again. We talked about the fact that if he did in fact succeed, that his dogs would be left alone. He reported that he thought about that, but there seemed to be limited connectivity. We reviewed his most recent psychiatric evaluation here and he denied any substantive changes in the history or psychosocial circumstances. Per recent [facility] eval 05/17/2019: HPI NPU History of Present Illness Chief complaint: the voices are so bad that I'm going to kill myself. History of present illness: Shayan Dickson is a 34 year old male who tells an undocumented fairly reasonable story of a life lived suffering auditory hallucinations to varying degrees. When he is doing well, he will hear muttering voices that do not cause him a great deal of difficulty. He states that he seldom is free of the voices. HE deons not report taking medication for this problem on a intermediate project manager or regular basis. 3 months ago, the voices began getting worse. He is has no theory as to why they have gotten worse. 3 weeks ago, they began getting intrusive to the point where he was willing to end his life just to free himself from the torture from these voices. He hears a number of different voices. He is able to interpret who they are. They are from important people in his life. These include a woman that he knows and Her boyfriend, his stepbrother and his . they Say demeaning things in a very loud manner. They tell him that he should and they tell him how he should kill himself. in spite of having struggled with during much of his life, he cannot give any guidance as to what interventions have been helpful. He said that he took lithium for a while and it was quite helpful. However it stopped working. It is noted that he was hospitalized here in October 2018 and was discharged on a combination of Suboxone, Zyprexa, and citalopram. He can give no assessment as to whether the Zyprexa helped him with his voices. He says that if the voices are reduced, he will no longr be suicidal. He is ambivalent about symptoms of depression. He says that he does not do anything enjoyable and simply passes this time when his phone and taking care of animals around his arm. He reports good sleep. He has no specific suicide plan this time. He said suicide thoughts were proceeded by the worsening of the voices. His urine drug screen is negative. He is actively taking the Suboxone and receives it from an outpatient therapist. However he has not continued his medications otherwise from discharge in October 2018. Mental health history: history of this patient was very difficult to acquire. He talks very rapidly and in the low mumbling fashion. His thoughts are mildly disorganized.he reports that originally he grew up in [place] and that at one point he left a rehabilitation program there and moved to [place]. He was only in [place] for 3 months when there were some financial difficulties and he came to the [facility] in 2010. He gives no further history regarding mental health care. It is noted that he can give no advisement regarding any other medication trials that have had any effect positive for negative on his auditory hallucinations. notes from his admission to this unit in October 2018: 11/13/2018 Shayan presents today reporting that the situation with his razor blade centered around his loss of his fianc?e. He reports that his significant other had committed suicide about 3 days shy of 2 years of when he made this suicide attempt before admission. He reports that he was feeling very low without feeling a clear sense of relief. And he had read online that he swallowed a razor blade that it would go through certain parts and because it was internal organs you would not feel it as it was slicing through things and that he would bleed out in his sleep. He reports that when he woke up and was alive but had a rectal bleeding he got really anxious and that when he came to the hospital. He is passed the razor blade now and at this point he reports that he is feeling better and more optimistic. With his first day on the psychiatric unit we discussed the fact that we needed to observe him for a couple of days to get a sense of where he really is prior to being comfortable with discharge. We had filed a 21-day hold paperwork but were able to negotiate and get an agreement that he will work with us over the next few days with a plan for discharge at the beginning of the week. Hospital Course: Shayan presented to the unit after being in the ICU and followed by surgery secondary to the ingestion of a razor blade or at least razor blade containing item from the head of a razor. After being followed until the object had been defecated since they were unable to get it by surgical means he was transferred to the NPU. After he woke up alive he reports that he got himself to the hospital for help and reports that he did not have any lethality after awaking and felt a desire to get help and not continue with self-injurious suicidal behaviors. So after a few days in the ICU he spent a few days in the NPU where he was observed and each day denied any lethality and a desire to go home and continue with his life. His medications were continued. Once he got to the NPU he acclimated to the individual, group and milieu therapies. While he was in the hospital he had routine laboratory studies which were within normal limits except for a few outliers. Those can be seen below. He also had a general medical evaluation this was within normal limits and revealed no acute processes except for the issue with the intentional ingestion. At the time of discharge his mood had improved, his lethality had resolved and he was sleeping better. He endorsed the plan to take his medication as prescribed, continue with his recovery oriented outpatient treatments and abstain from drugs of abuse as well as self-injurious and suicidal behaviors. He had obtained all the benefits he could get from the inpatient unit so he was discharged. Social history:the patient is currently supporting himself through his disability payments. He lives with uncle who apparently has a farm. He spends much of his time helping his uncle with daily activities around the farm such as feeding animals and taking care of the general grounds. He engages in no enjoyable activities and largely spends his time playing on his phone. His uncle apparently is advanced in age and is concerned about Shayan's well-being as the uncle's health declines. Shayan's uncle has advised him to go to a rehabilitation program and get off the Suboxone so that eventually he can be placed in a fci or residential care facility. Legal history:there is no history in the [place] public record of incarcerations or felony arrests. Past medical history: Allergies Escitalopram. NSAIDS (NON-STEROIDAL ANTI-INFLAMMA. Venlafaxine. SOCIAL HX: Heavy tobacco smoker (cigarette)- 1 pack per day. No alcohol use or drug use. No recent travel. PROBLEMS: Ulcerative Colitis. GI Bleeding. Depression. Bipolar Disorder. Colitis. ADDITIONAL SURGERIES: Appendectomy. . Mental Status Exam: the patient is an alert interpersonally engaged male. He is believed to be a reliable informant to the best of his ability as information that is provided is internally consistent and consistent with that in the chart. Appearance: hygiene is fair; no gross neurological deficits., gait is unremarkable; AIMS=0 Speech: Speech is she is rapid with indistinct enunciation with frequently makes some of the information difficult to assess. Thought processes: Thought processes are abstract. Judgment is adequate for safety. Associations: intact Psychotic processes: There is no indication of guarding or paranoia. There is no attention to the internal stimuli. auditory hallucinations are reported as above. He denied the presence of visual hallucinations. Judgment: Insight is good. Problem solving skills are adequate for safety. Orientation: The patient is oriented to person, place time and situation. Memory: no deficits noted in immediate, intermediate, or remote spheres. Attention: The patient is alert and interpersonally engaged. Language: Verbalizations are coherent. Fund of knowledge: Fund of knowledge is adequate. Affect/Mood: Affect is consistent with a depressed mood. he reported vague suicidal ideation without intent or plan. Affective range good Psychosis: perception unimpaired despite intrusive auditory hallucinations that he is experiencing.; reality testing intact. Diagnoses: schizophrenia?undifferentiated, acute Assessment:this is a difficult situation given that he has a long-standing history of schizophrenia but can give no feedback as to what medications have been tried without any success in the past. At this point, we will continue the Zyprexa 20 mg at bedtime and also provide when necessary dosing during the day with Kalyn as needed for auditory hallucinations. He will continue with Suboxone and the Celexa. We will discuss the feasibility of placement in a rehabilitation program with dialysis social worker. If this is a reasonable possibility, tapering some from Suboxone will be discussed. Hospital Course Hospital Course Shayan presented to the emergency department endorsing psychosis, being off of his medication and suicidality with active addiction. He was admitted to the neuropsychiatric unit for definitive treatment of those issues. On the unit he slowly acclimated to the individual, group and milieu therapies provided. We restarted his medications and he had significant improvement. He was able to contract for safety prior to discharge. During the hospitalization, patient had routine laboratory studies which were within normal limits except for few outliers. Additionally there was a general medical evaluation which was also within normal limits and revealed no new acute processes. Discharge Summary: At the time of discharge, lethality was denied and psychosis was resolving. Mood and anxiety were well managed. Patient endorsed a plan to avoid all drugs of abuse and follow-up with the aftercare recommendations of the treatment team. Patient was evaluated and deemed to be absent credible lethality, and had achieved the maximum benefit from an inpatient hospitalization, so was discharged. Involuntary Hold Information 96 Hour Hold: 96 Hour Involuntary Admission: Yes 96 Hour Hold Ending Date: 09/16/20 96 Hour Hold Ending Time: 11:45 Mental Status Exam MSE Comments: This is an overweight, white male in hospital scrubs with adequate grooming, and eye contact. No abnormal movements. Cooperative with exam in no acute distress. Speech was more normal rate and volume and effeminate. Mood described as pretty good; affect congruent. Thought process, organized. Thought content: patient denied any suicidal or homicidal ideation, there were no delusions reported or noted, patient denied auditory or visual hallucinations. Attention, concentration, and memory appeared intact but were not formally tested. He was alert and oriented times three. Insight and judgment are improving and impulse control is limited, but improving. Discharge Data Vitals: Last Vital Signs Temp 98.6 F 09/14/20 13:55 Pulse 95 09/14/20 13:55 Resp 16 09/14/20 13:55 BP 114/79 09/14/20 13:55 Pulse Ox 95 09/14/20 13:55 Discharge Plan Discharge Patient Disposition: Home Condition: Stable Prescriptions: Continued Keppra 500 mg Tablet 500 mg PO BID RF: 0 gabapentin 800 mg Tablet 800 mg PO TID RF: 0 amitriptyline 100 mg Tablet 100 mg PO BEDTIME RF: 0 clonazepam 0.5 mg tablet 0.5 mg PO TID PRN (Reason: Anxiety) RF: 0 phenytoin sodium extended 100 mg capsule See Rx Instructions .ROUTE .COMPLEX RF: 0 buprenorphine-naloxone [Suboxone] 8-2 mg film 2 - 8 film buccal DAILY 2 Days Qty: 4 RF: 0 Discontinued haloperidol [Haldol] 5 mg Tablet 5 mg PO DAILY RF: 0 chlorpromazine [Thorazine] 100 mg Tablet 600 mg PO BEDTIME RF: 0 Discharge Orders: Discharge Order (Routine); Ordered 09/14/20 Ordered By: Jag Escobar Referrals: [facility] [Outside] (Please do a Walk In between the hours of 7:30 AM and 3:00 PM to be set up with services. ) Discharge Diet: Regular Discharge Activity: Resume usual activity Patient Instructions: Generalized Anxiety Disorder (DC), Opioid Safety Discharge Attestations NPU Time Spent in Discharge Care*: less than 30 min Specific Discharge Activities: Specific discharge activities: educating patient, discussing with casework supervisor/social workers/dc planners, documenting/other paperwork and evaluating patient/reviewing data Coding Level of Care Code Acute Chg FW DC note Diagnoses Drug overdose T50.902A Encounter type: initial encounter Injury intent: intentional self-harm Cluster B personality disorder F60.89 Bipolar depression F31.9 Psychosis F29
[2020-09-14 15:13] VITALS: BP 114/79; PULSE 95; RESP 16; TEMP 37; O2SAT 95
== END 2020-09-14 15:17 | disposition home or self-care (01) | DRG 918 ==
LOC: ER 15:27 → NP 16:30
PROVIDERS: Emergency Medicine; Admitting Provider Psychiatry & Neurology Psychiatry; Emergency Provider Physician Assistant; Visit Provider Psychiatry & Neurology Psychiatry
DX: T39.1X2A Poisoning by 4-Aminophenol derivatives, intentional self-harm, initial encounter (principal); Y92.9 Unspecified place or not applicable; F20.3 Undifferentiated schizophrenia; F17.210 Nicotine dependence, cigarettes, uncomplicated; F60.89 Other specific personality disorders; F32.9 Major depressive disorder, single episode, unspecified
CPT/HCPCS: 36415; 80053; 80178; 80306; 80307; 81001; 82977; 83615; 84450; 84460; 85025; 96372; 99285; J1200; J1630; J2060; J3486

== ENCOUNTER 2020-12-16 08:41 | Inpatient (IN) | payer MEDICARE, MEDICAID, SELFPAY ==
[2020-12-16 08:49] VITALS: BP 98/65; PULSE 100; RESP 16; TEMP 36.7; O2SAT 94; BMI 27.8
--- NOTE | 2020-12-16 09:35 | ECG_ITS ---
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 Measurements Intervals [place] Rate: 86 P: 41 MT: 152 QRS: -89 QRSD: 101 T: 59 QT: 378 QTc: 454 Interpretive Statements SINUS RHYTHM LEFT AXIS DEVIATION [QRS AXIS < -30] PATTERN CONSISTENT WITH PULMONARY DISEASE No previous ECG available for comparison Electronically Signed On 12-17-2020 23:14:19 CDT by Phuc Valenzuela M.D. [email or web address]
[2020-12-16 09:52] LABS: Basophils % 0.3 %; Eosinophils # 0.1 10^3/uL (0.0-0.8); Eosinophils % 0.5 %; Hematocrit 47.8 % (42.0-52.0); Lymphocytes # 1.1 10^3/uL (0.8-4.8); Lymphocytes % 9.7 %; Mean Corpuscular HGB Conc 33.5 g/dL (30.0-36.0); Mean Corpuscular Hemoglobin 28.8 pg (28.0-34.0); Mean Platelet Volume 10.4 fL (7.4-10.4); Monocytes # 0.6 10^3/uL (0.2-0.9); Neutrophils # 9.25 10^3/uL (1.8-7.7); Neutrophils % 84.1 %; Nucleated Red Blood Cells % 0 %; Platelet Count 294 10^3/cmm (130-400); Red Blood Count 5.56 10^6/uL (4.1-5.3); Red Cell Distribution Width 12.8 % (12.1-15.1)
--- NOTE | 2020-12-16 10:10 | ED_ITS ---
HPI - Psych General: Chief Complaint: Psychiatric Symptoms Stated Complaint: SI Time Seen by Provider: 12/16/20 08:45 History of Present Illness: HPI Narrative: 35-year-old male presents emergency room stating take 80 tablets of aspirin last night around 2 PM yesterday which makes it about 20 hours ago. He took some other pills along with that that were not labeled. He does state he was trying to kill himself. He states he had auditory hallucinations of voices telling him to kill himself. He has not had any hematemesis or coffee-ground emesis no hematochezia no melena. He denies any dysuria urgency or frequency. He has tried to harm himself in the past. Evidently this was precipitated by some relationship issues. MD complaint: suicidal ideation and feels depressed Duration: constant History of same: Yes Relieving factors: none Exacerbating factors: none Context: not taking psychiatric medications and significant life stressor Associated psychiatric symptoms: depression, suicidal ideation, auditory hallucinations and visual hallucinations Associated symptoms: Reports auditory hallucinations, depression and suicidal ideation; Deny visual hallucinations, delusions, homicidal ideation or racing thoughts Treatments prior to arrival: none If self harm: admits thoughts of self harm, has plan and has acted on plan Review of Systems Const: Denies: fever(s), chills, body aches, change in appetite, fatigue or malaise ENMT: Denies: throat pain, ear or mastoid pain, nasal discharge or nasal congestion Card: Denies: chest pain, edema, dyspnea on exertion or orthopnea Resp: Denies: dyspnea, productive cough or non-productive cough GI: Denies: abdominal pain, nausea, vomiting, hematemesis, coffee ground emesis, diarrhea, constipation, bloating, hematochezia or melena : Denies: flank pain, dysuria, urinary frequency or urinary urgency Skin/Breast: Denies: rash or pruritus Psych: Reports: depression, auditory hallucinations and suicidal ideation; Denies: visual hallucinations or homicidal ideation [facility] ED PFSH: Medical History (Updated 12/18/20 @ 06:44 by Farhad Haas DO) Opiate misuse Surgical History History of appendectomy Social History Smoking and tobacco status: current every day smoker Physical Exam Const: COMMON NORMALS: no acute distress GENERAL APPEARANCE: cooperative and comfortable ORIENTATION/CONSCIOUSNESS: Yes awake, Yes oriented to person, Yes oriented to place and Yes oriented to time HENMT: COMMON NORMALS: normocephalic, atraumatic and hearing grossly normal bilaterally HEAD & SCALP: normocephalic and atraumatic Neck/C-Spine: COMMON NORMALS: no JVD Resp: COMMON NORMALS: normal respiratory effort, No retractions, No use of accessory muscles and clear to auscultation bilaterally AUSCULTATION: clear to auscultation bilaterally Cardio: COMMON NORMALS: no JVD, regular rate, regular rhythm and No murmurs present (Cardio) RATE: regular rate RHYTHM: regular rhythm GI: COMMON NORMALS: Soft to palpation and No hepatosplenomegaly present AUSCULTATION: Yes normoactive bowel sounds PALPATION: Yes Soft to palpation, No Tenderness to palpation present (GI), No Guarding due to palpation present (GI) and Yes No hepatosplenomegaly present Extremity: COMMON NORMALS: normal to inspection, capillary refill normal, no clubbing, cyanosis or edema, no calf tenderness and no pedal edema Neuro: SENSORIUM/ORIENTATION: Yes oriented to person, Yes oriented to place and Yes oriented to time Psych: THOUGHT CONTENT: No delusions Skin: COMMON NORMALS: no rashes or lesions noted GENERAL SKIN EXAM: no rashes or lesions noted Course Vital Signs: Vital signs: Vital Signs Temperature 97.8 F 12/18/20 06:00 Pulse Rate 55 L 12/18/20 06:00 Respiratory Rate 16 12/18/20 06:00 Blood Pressure 92/57 12/18/20 06:00 Pulse Oximetry 97 12/18/20 06:00 MDM - Psych MDM Narrative: Medical decision making narrative: Labs and imaging reviewed on the chart. We will go ahead and admit for suicidal attempt. Discussed Dr. Escobar orders are written. Lab Data: Labs: Lab Results 12/16/20 12/16/20 12/16/20 09:13 09:13 09:49 WBC 11.0 10^3/uL H 10 ^3/uL (4.0-10.0) RBC 5.56 10^6/uL H 10 ^6/uL (4.1-5.3) Hgb 16.0 g/dL g/dL (11.7-16.6) Hct 47.8 % % (42.0-52.0) MCV 86.0 fl fl (80-94) MCH 28.8 pg pg (28.0-34.0) MCHC 33.5 g/dL g/dL (30.0-36.0) RDW 12.8 % % (12.1-15.1) Plt Count 294 10^3/cmm 10^3 /cmm (130-400) MPV 10.4 fL fL (7.4-10.4) Neut % (Auto) 84.1 % % Lymph % (Auto) 9.7 % % [place] % (Auto) 5.0 % % Eos % (Auto) 0.5 % % Baso % (Auto) 0.3 % % Neut # (Auto) 9.25 10^3/uL H 10 ^3/uL (1.8-7.7) Lymph # (Auto) 1.1 10^3/uL 10^3/ uL (0.8-4.8) [place] # (Auto) 0.6 10^3/uL 10^3/ uL (0.2-0.9) Eos # (Auto) 0.1 10^3/uL 10^3/ uL (0.0-0.8) Baso # (Auto) 0.0 10^3/uL 10^3/ uL (0.0-0.1) Nucleated RBC % (a uto) 0 % % Nucleated RBCs # 0.0 /100WBC /100W BC Sodium Potassium Chloride Carbon Dioxide Anion Gap BUN Creatinine GFR Calculation Glucose Calculated Osmolal ity Calcium Total Bilirubin AST ALT Alkaline Phosphata se Total Protein Albumin Globulin Urine Color Yellow (Yellow) Urine Appearance Clear (CLEAR) Urine pH 5 (5-7) Ur Specific Gravit y 1.020 (1.005-1.030) Urine Protein Trace (Negative) Urine Glucose (UA) Norm (Normal) Urine Ketones 2+ H (Negative) Urine Blood Neg (Negative) Urine Nitrate Negative (Negative) Urine Bilirubin 1+ H (Negative) Urine Urobilinogen 4 mg/dL H mg/dL (Negative) Ur Leukocyte Riya ase Negative (Negative) Urine RBC 0-4 /hpf H /hpf (0-2) Urine WBC 0-4 /hpf H /hpf (0-5) Ur Squamous Epith Cells 0-4 /hpf H /hpf (0-5) Amorphous Sediment Not Reportable Urine Bacteria Trace /hpf /hpf (NONE) Urine Mucus 1+ /hpf /hpf Salicylates Urine Opiates Scre en Negative ng/mL ng /mL (Negative) Acetaminophen Ur Barbiturates Sc reen Negative ng/mL ng /mL (Negative) Ur Phencyclidine S crn Negative ng/mL ng /mL (Negative) Ur Amphetamines Sc reen Negative ng/mL ng /mL (Negative) U Benzodiazepines Scrn Negative ng/mL ng /mL (Negative) Urine Cocaine Scre en Negative ng/mL ng /mL (Negative) U Marijuana (THC) Screen Negative ng/mL ng /mL (Negative) Ethyl Alcohol 12/16/20 09:49 WBC RBC Hgb Hct MCV MCH MCHC RDW Plt Count MPV Neut % (Auto) Lymph % (Auto) [place] % (Auto) Eos % (Auto) Baso % (Auto) Neut # (Auto) Lymph # (Auto) [place] # (Auto) Eos # (Auto) Baso # (Auto) Nucleated RBC % (a uto) Nucleated RBCs # Sodium 137 mmol/L mmol/L (136-145) Potassium 4.5 mmol/L mmol/L (3.5-5.1) Chloride 102 mmol/L mmol/L (98-107) Carbon Dioxide 20 mmol/L L mmol/ L (22-29) Anion Gap 19.5 H (5-19) BUN 9 mg/dL mg/dL (6-20) Creatinine 0.7 mg/dL mg/dL (0.7-1.2) GFR Calculation 127.6 mL/min mL/m in (90-130) Glucose 76 mg/dL mg/dL (65-115) Calculated Osmolal ity 281 mOsm/kg L mOs m/kg (285-295) Calcium 9.0 mg/dL mg/dL (8.5-10.5) Total Bilirubin 0.8 mg/dL mg/dL (0.15-1.2) AST 16 U/L U/L (0-40) ALT 11 U/L U/L (0-41) Alkaline Phosphata se 101 IU/L IU/L (40-130) Total Protein 6.7 g/dL g/dL (6.6-8.7) Albumin 4.0 g/dL g/dL (3.5-5.2) Globulin 2.7 g/dL g/dL (1.3-4.6) Urine Color Urine Appearance Urine pH Ur Specific Gravit y Urine Protein Urine Glucose (UA) Urine Ketones Urine Blood Urine Nitrate Urine Bilirubin Urine Urobilinogen Ur Leukocyte Riya ase Urine RBC Urine WBC Ur Squamous Epith Cells Amorphous Sediment Urine Bacteria Urine Mucus Salicylates 5.0 mg/dL mg/dL (3-10) Urine Opiates Scre en Acetaminophen < 5.0 ug/mL L ug/ mL (10-30) Ur Barbiturates Sc reen Ur Phencyclidine S crn Ur Amphetamines Sc reen U Benzodiazepines Scrn Urine Cocaine Scre en U Marijuana (THC) Screen Ethyl Alcohol < 10 mg/dL mg/dL (0-10) Discharge Plan Discharge Patient Disposition: Admitted As Inpatient Admit Provider: Jag Escobar Clinical Impression: Suicide attempt, Drug overdose, Psychosis, Bipolar depression Condition: Stable Coding Level of Care Code ED [employer] [facility] 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
[2020-12-16 10:11] LABS: Alanine Aminotransferase 11 U/L (0-41); Alkaline Phosphatase 101 IU/L (40-130); Anion Gap 19.5 (5-19); Aspartate Amino Transferase 16 U/L (0-40); Blood Urea Nitrogen 9 mg/dL (6-20); Carbon Dioxide 20 mmol/L (22-29); Chloride 102 mmol/L (98-107); Globulin 2.7 g/dL (1.3-4.6); Glomerular Filtration Rate 127.6 mL/min (90-130); Glucose 76 mg/dL (65-115); Osmolality Calculated 281 mOsm/kg (285-295); Potassium 4.5 mmol/L (3.5-5.1); Sodium 137 mmol/L (136-145); Total Bilirubin 0.8 mg/dL (0.15-1.2); Total Protein 6.7 g/dL (6.6-8.7)
[2020-12-16 10:17] LABS: Bilirubin Urine 1+ (Negative); Blood Urine Neg (Negative); Glucose Urine UA Norm (Normal); Ketones Urine 2+ (Negative); Leukocyte Esterase Urine Negative (Negative); Nitrate Urine Negative (Negative); Protein Urine Trace (Negative); Urine Appearance Clear (CLEAR); Urine Color Yellow (Yellow); Urobilinogen Urine 4 mg/dL (Negative); pH Urine 5 (5-7)
[2020-12-16 10:18] LABS: Add Urine Microscopic? YES
[2020-12-16 10:19] LABS: Acetaminophen < 5.0 ug/mL (10-30); Alcohol Level < 10 mg/dL (0-10)
[2020-12-16 10:29] LABS: Add Urine Culture? Yes; Bacteria Urine TRACE /hpf; Mucus Urine 1+ /hpf; RBC Urine 0-4 /hpf (0-2); Squamous Epithelial Cell Urine 0-4 /hpf (0-5); WBC Urine 0-4 /hpf (0-5)
[2020-12-16 10:34] LABS: Amphetamines Screen Urine Negative (Negative); Barbiturates Screen Urine Negative (Negative); Benzodiazepines Screen Urine Negative (Negative); Cocaine Screen Urine Negative (Negative); Opiate Screen Urine Negative (Negative); PCP Screen Urine Negative (Negative); THC Screen Urine Negative (Negative)
[2020-12-16 10:45] VITALS: BP 102/58; PULSE 92; RESP 16; O2SAT 94
[2020-12-16 10:57] VITALS: BP 106/75; PULSE 97; RESP 17; TEMP 37.2; O2SAT 95
--- NOTE | 2020-12-16 12:34 | NPU.GN ---
[facility] Topic:Coping Skills General Mood of Group:Refused group.
[2020-12-16 14:00] VITALS: BP 95/53; PULSE 76; RESP 18; TEMP 36.2; O2SAT 97
[2020-12-16] MEDS: nicotine 2 mg Gum BUCCAL (15:32)
[2020-12-16 20:11] VITALS: BP 96/60; PULSE 68; RESP 16; TEMP 37.2; O2SAT 97
[2020-12-16] MEDS: trazodone 50 mg Tablet PO (23:51)
[2020-12-17 06:00] VITALS: BP 107/69; PULSE 73; RESP 17; TEMP 36.6; O2SAT 97
[2020-12-17] MEDS: nicotine 2 mg Gum BUCCAL ×3 (07:53→17:38)
[2020-12-17] MEDS: loperamide 2 mg Capsule PO ×2 (08:18→16:10)
--- NOTE | 2020-12-17 09:37 | PM.NHP ---
Providers/Chief Complaint Admitting Physician: Jag Escobar MD Chief Complaint: SI HPI NPU History of Present Illness Shayan Dickson is a 35 year old male who presented to the ED with the following report: Chief Complaint: Psychiatric Symptoms Stated Complaint: SI Time Seen by Provider: 12/16/20 08:45 History of Present Illness: HPI Narrative: 35-year-old male presents emergency room stating take 80 tablets of aspirin last night around 2 PM yesterday which makes it about 20 hours ago. He took some other pills along with that that were not labeled. He does state he was trying to kill himself. He states he had auditory hallucinations of voices telling him to kill himself. He has not had any hematemesis or coffee-ground emesis no hematochezia no melena. He denies any dysuria urgency or frequency. He has tried to harm himself in the past. Evidently this was precipitated by some relationship issues. complaint: suicidal ideation and feels depressed Duration: constant History of same: Yes Relieving factors: none Exacerbating factors: none Context: not taking psychiatric medications and significant life stressor Associated psychiatric symptoms: depression, suicidal ideation, auditory hallucinations and visual hallucinations Associated symptoms: Reports auditory hallucinations, depression and suicidal ideation; Deny visual hallucinations, delusions, homicidal ideation or racing thoughts Treatments prior to arrival: none If self harm: admits thoughts of self harm, has plan and has acted on plan. Agreed to the neuropsychiatric unit for definitive treatment of those issues. 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 Excerpt of that note is included below for context and as he denies substantive changes. He does endorse however that he has not been back on his medication for reasons that he could not clarify. But he has been off of the medication and not doing as well he reports. He reports that his living arrangement is still fairly stable and he was worried that he was going continue with the suicidal thoughts he was having and so he went to come to the hospital, get restarted on his medication have his suicidality myron and get back on track overall with treatment. Part of his concern what some of the medication was helpful some of it he did not feel was. We agreed we would review his chart and try to get a sense of what direction we might go in the treatment particularly with bipolar disorder. Per his 09/11/2020 [facility] inpatient psychiatric evaluation: History of Present Illness Shayan Dickson is a 35 year old male who presented to the emergency department with the following report: Chief Complaint: Overdose Stated Complaint: SI Time Seen by Provider: 09/10/20 10:40 History of Present Illness: HPI Narrative: Patient is a 35-year-old male who comes to the ED with SI and overdose. Patient says around 5 AM today he took approximately 120 tablets of Tylenol p.m. to kill himself. Patient has history of schizophrenia. He states that he has been suicidal in the past and that currently he is hearing voices that are telling him to kill himself. He states he has been currently taking his psych meds as prescribed but over the last week he feels like they have been helping him. This past week he is hearing the voices more and more. He denies any visual hallucinations or HI. He endorses having a little bit of nausea currently but no other symptoms. Associated symptoms: Reports auditory hallucinations and suicidal ideation; Deny visual hallucinations or homicidal ideation. He was admitted to the neuropsychiatric unit for definitive treatment of those issues. Shayan presents today reporting that he had left ear over a year ago and went down to a friend's place in another state had been doing fairly well. He reports that his uncle started having problems never brought him back. He reports that the reason why he came in was that his voices were increasing and he needed to have some treatment for that. We reviewed his medications and the different ones he had been on identify something he could try. He reports the Zyprexa has been effective for him but that at some point after he left this with him over the Thorazine and the Thorazine stopping helpful. He also was very focused on Suboxone reporting that he is been taking it and he started to have withdrawal symptoms secondary to it not being prescribed. We were able to review his records and determined that he had not had an active prescription at this time. Explained to him our policy only prescribing Suboxone to people with active prescription he had already stated he had the medication available at home but then was very elusive about having somebody bring it to substantiate his claim that he has been taking less to preserve it as he tried to get an appointment. We discussed the risk-benefit alternatives of a trial of Geodon and he understood agreed proceed as documented in his note. He denied any substantive changes in his psychosocial history outside [place] so an excerpt from his previous note is included below. Per his 09/17/2019 [facility] inpatient psychiatric eval: History of Present Illness Shayan Dickson is a 34 year old male Shayan presented to the emergency room reporting a decompensation and wanting to secondary to running out of his medications. 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 He reports that the medications that had been started in his last hospitalization were working fine and he was feeling optimistic about things, continuing to go in the right direction and improve, but as he got further away from them not being able to refill his medications, he started feeling worse and worse, and now he just reports that he is fed up with life and wanting to kill himself. He was admitted to the neuro-psychiatric unit for definitive treatment of those issues. We continued his current medications and agreed to do some investigation into his medications which were discontinued secondary to availability to make sure that it is not something that will prevent that in the future as well. We agreed that if we were able to identify that it was a glitch, that we would restart those medications and if we identify that it was going to be a problem moving forward, we would attempt an alternative treatment plan. He understood and agreed to proceed as is documented in this note. We reviewed his last hospitalization record from 06-25-19 and he denied any substantive changes since that time. An excerpt of that evaluation is included below. Per his last [facility] IP eval 06/25/2019: HPI NPU History of Present Illness Shayan Dickson is a 34 year old male who presents today reporting that he is doing okay. He reports that his Zyprexa was discontinued, but he could give no explanation for why that was the case. We discussed his repeat behavior from October of last year which was swallowing the ends of a couple BIC razors, which had already been used, and were fairly dull in this reported suicide attempt. He could not move away from the fact that it was a real and valid attempt and not some kind of gesture. He reported that he thought that if he took those that they would slice him but to be clear these were not actual razorblades that were open. This was little plastic tops of cheap razors that had double blades in them, but they are kind of contained in the plastic so there is some risk, but not extreme risk. The surgeon went in and took them out and had them sent away for testing. We discussed the fact that he does have intellectual disability within special education classes in school, has limited functioning in that way. He continues to live with his uncle and his five dogs. He reports that he will never do this thing with the razors again. We talked about the fact that if he did in fact succeed, that his dogs would be left alone. He reported that he thought about that, but there seemed to be limited connectivity. We reviewed his most recent psychiatric evaluation here and he denied any substantive changes in the history or psychosocial circumstances. Per recent [facility] eval 05/17/2019: HPI NPU History of Present Illness Chief complaint: the voices are so bad that I'm going to kill myself. History of present illness: Shayan Dickson is a 34 year old male who tells an undocumented fairly reasonable story of a life lived suffering auditory hallucinations to varying degrees. When he is doing well, he will hear muttering voices that do not cause him a great deal of difficulty. He states that he seldom is free of the voices. 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 3 months ago, the voices began getting worse. He is has no theory as to why they have gotten worse. 3 weeks ago, they began getting intrusive to the point where he was willing to end his life just to free himself from the torture from these voices. He hears a number of different voices. He is able to interpret who they are. They are from important people in his life. These include a woman that he knows and Her boyfriend, his stepbrother and his . they Say demeaning things in a very loud manner. They tell him that he should and they tell him how he should kill himself. in spite of having struggled with during much of his life, he cannot give any guidance as to what interventions have been helpful. He said that he took lithium for a while and it was quite helpful. However it stopped working. It is noted that he was hospitalized here in October 2018 and was discharged on a combination of Suboxone, Zyprexa, and citalopram. He can give no assessment as to whether the Zyprexa helped him with his voices. He says that if the voices are reduced, he will no longr be suicidal. He is ambivalent about symptoms of depression. He says that he does not do anything enjoyable and simply passes this time when his phone and taking care of animals around his arm. He reports good sleep. He has no specific suicide plan this time. He said suicide thoughts were proceeded by the worsening of the voices. His urine drug screen is negative. He is actively taking the Suboxone and receives it from an outpatient therapist. However he has not continued his medications otherwise from discharge in October 2018. Mental health history: history of this patient was very difficult to acquire. He talks very rapidly and in the low mumbling fashion. His thoughts are mildly disorganized.he reports that originally he grew up in [place] and that at one point he left a rehabilitation program there and moved to [place]. He was only in [place] for 3 months when there were some financial difficulties and he came to the [facility] in 2010. He gives no further history regarding mental health care. It is noted that he can give no advisement regarding any other medication trials that have had any effect positive for negative on his auditory hallucinations. notes from his admission to this unit in October 2018: 11/13/2018 Shayan presents today reporting that the situation with his razor blade centered around his loss of his fianc?e. He reports that his significant other had committed suicide about 3 days shy of 2 years of when he made this suicide attempt before admission. He reports that he was feeling very low without feeling a clear sense of relief. And he had read online that he swallowed a razor blade that it would go through certain parts and because it was internal organs you would not feel it as it was slicing through things and that he would bleed out in his sleep. He reports that when he woke up and was alive but had a rectal bleeding he got really anxious and that when he came to the hospital. He is passed the razor blade now and at this point he reports that he is feeling better and more optimistic. With his first day on the psychiatric unit we discussed the fact that we needed to observe him for a couple of days to get a sense of where he really is prior to being comfortable with discharge. We had filed a 21-day hold paperwork but were able to negotiate and get an agreement that he will work with us over the next few days with a plan for discharge at the beginning of the week. Hospital Course: Shayan presented to the unit after being in the ICU and followed by surgery secondary to the ingestion of a razor blade or at least razor blade containing item from the head of a razor. After being followed until the object had been defecated since they were unable to get it by surgical means he was transferred to the NPU. After he woke up alive he reports that he got himself to the hospital for help and reports that he did not have any lethality after awaking and felt a desire to get help and not continue with self-injurious suicidal behaviors. So after a few days in the ICU he spent a few days in the NPU where he was observed and each day denied any lethality and a desire to go home and continue with his life. His medications were continued. Once he got to the NPU he acclimated to the individual, group and milieu therapies. While he was in the hospital he had routine laboratory studies which were within normal limits except for a few outliers. Those can be seen below. He also had a general medical evaluation this was within normal limits and revealed no acute processes except for the issue with the intentional ingestion. At the time of discharge his mood had improved, his lethality had resolved and he was sleeping better. He endorsed the plan to take his medication as prescribed, continue with his recovery oriented outpatient treatments and abstain from drugs of abuse as well as self-injurious and suicidal behaviors. He had obtained all the benefits he could get from the inpatient unit so he was discharged. Social history:the patient is currently supporting himself through his disability payments. He lives with uncle who apparently has a farm. He spends much of his time helping his uncle with daily activities around the farm such as feeding animals and taking care of the general grounds. He engages in no enjoyable activities and largely spends his time playing on his phone. His uncle apparently is advanced in age and is concerned about Shayan's well-being as the uncle's health declines. Shayan's uncle has advised him to go to a rehabilitation program and get off the Suboxone so that eventually he can be placed in a intermediate or residential care facility. Legal history:there is no history in the [place] public record of incarcerations or felony arrests. Past medical history: Allergies Escitalopram. NSAIDS (NON-STEROIDAL ANTI-INFLAMMA. Venlafaxine. SOCIAL HX: Heavy tobacco smoker (cigarette)- 1 pack per day. No alcohol use or drug use. No recent travel. PROBLEMS: Ulcerative Colitis. GI Bleeding. Depression. Bipolar Disorder. Colitis. ADDITIONAL SURGERIES: Appendectomy. . Mental Status Exam: the patient is an alert interpersonally engaged male. He is believed to be a reliable informant to the best of his ability as information that is provided is internally consistent and consistent with that in the chart. Appearance: hygiene is fair; no gross neurological deficits., gait is unremarkable; AIMS=0 Speech: Speech is she is rapid with indistinct enunciation with frequently makes some of the information difficult to assess. Thought processes: Thought processes are abstract. Judgment is adequate for safety. Associations: intact Psychotic processes: There is no indication of guarding or paranoia. There is no attention to the internal stimuli. auditory hallucinations are reported as above. He denied the presence of visual hallucinations. Judgment: Insight is good. Problem solving skills are adequate for safety. Orientation: The patient is oriented to person, place time and situation. Memory: no deficits noted in immediate, intermediate, or remote spheres. Attention: The patient is alert and interpersonally engaged. Language: Verbalizations are coherent. Fund of knowledge: Fund of knowledge is adequate. Affect/Mood: Affect is consistent with a depressed mood. he reported vague suicidal ideation without intent or plan. Affective range good Psychosis: perception unimpaired despite intrusive auditory hallucinations that he is experiencing.; reality testing intact. Diagnoses: schizophrenia?undifferentiated, acute Assessment:this is a difficult situation given that he has a long-standing history of schizophrenia but can give no feedback as to what medications have been tried without any success in the past. At this point, we will continue the Zyprexa 20 mg at bedtime and also provide when necessary dosing during the day with Geodon as needed for auditory hallucinations. He will continue with Suboxone and the Celexa. We will discuss the feasibility of placement in a rehabilitation program with social services designee. If this is a reasonable possibility, tapering some from Suboxone will be discussed. Meds NPU Home Medications Medication Instructions Recorded Confirmed Last Taken Type buprenorphine-naloxone [Suboxone] 2 - 8 film BUCCAL DAILY 2 Days #4 09/25/19 12/16/20 09/09/20 Rx ea MDD see pharmacy comment amitriptyline 100 mg PO BEDTIME MDD see pharmacy 09/10/20 12/16/20 09/09/20 History comment clonazepam 0.5 mg PO TID PRN 09/10/20 12/16/20 Unknown History gabapentin 800 mg PO TID MDD see pharmacy 09/10/20 12/16/20 09/09/20 History comment levetiracetam [Keppra] 500 mg PO BID MDD see pharmacy 09/10/20 12/16/20 09/09/20 History comment phenytoin sodium extended See Rx Instructions .ROUTE .COMPLEX 09/10/20 12/16/20 09/09/20 History chlorpromazine 600 mg PO BEDTIME MDD see pharmacy 12/16/20 12/16/20 Unknown History comment haloperidol [Haldol] 5 mg PO BEDTIME 12/16/20 12/16/20 Unknown History Allergies Allergy/AdvReac Type Severity Reaction Status Date / Time mushroom Allergy Unknown Unknown Verified 12/16/20 08:54 escitalopram [From Lexapro] Allergy ALGY-Anaphy Verified 12/16/20 08:54 laxis NSAIDS (Non-Steroidal Allergy ADR-Abdominal Verified 12/16/20 08:54 Anti-Inflamma Pain venlafaxine [From Effexor] Allergy ALGY-Anaphy Verified 12/16/20 08:54 laxis PFS NPU PFSH: Medical History (Updated 12/18/20 @ 06:44 by Farhad Haas DO) Opiate misuse Surgical History History of appendectomy Social History Smoking and tobacco status: current every day smoker Mental Status Exam MSE Comments: This is an overweight, white male in hospital scrubs with adequate grooming, and eye contact. No abnormal movements except for mild psychomotor retardation. Cooperative with exam in mild distress. Speech was slightly decreased rate and volume and effeminate. Mood described as okay I guess; affect slightly subdued. Thought process, organized. Thought content: patient denied any suicidal or homicidal ideation, there were no delusions reported or noted, patient endorsed auditory but denied visual hallucinations. Attention, concentration, and memory appeared intact but were not formally tested. He was alert and oriented times three. Insight and judgment are limited and impulse control is limited. Vitals/I&O/Wt Last Vital Signs Temp 97.9 F 12/17/20 06:00 Pulse 73 12/17/20 06:00 Resp 17 12/17/20 06:00 BP 107/69 12/17/20 06:00 Pulse Ox 97 12/17/20 06:00 Weight last 48 hrs Weight 90.718 kg Data NPU : 12/16/20 09:49 12/16/20 09:49 Micro: Microbiology 12/16/20 09:13 Urine Culture - Preliminary Urine,Clean Catch Microbiology 12/16/20 09:13 Urine,Clean Catch Urine Culture - Preliminary A&P Assessment and plan (1) Suicide attempt: Status: Acute (2) Psychosis: Status: Acute (3) Drug overdose: Status: Acute (4) Cluster B personality disorder: Status: Acute (5) Bipolar depression: Status: Acute Additional A&P Information This is a 35 year old, white male, with history of bipolar disorder, Cluster B personality disorder, along with opiate use disorder on agonist therapy, who presents pff of his medication. 1. Continue current medication. 2. Continue every 15 minute checks for safety. 3. Encourage individual, group and milieu therapies. 4. Encourage sober living treatment after discharge at the highest level of care to which he is willing to commit. Involuntary Hold Information 96 Hour Hold: 96 Hour Involuntary Admission: No 96 Hour Hold Ending Date: 09/16/20 96 Hour Hold Ending Time: 11:45 Attestations NPU Medical Necessity Statement*: Inpatient hospitalization is medically necessary and the clinically appropriate intervention at this time. He will be in the hospital for over two midnights. We will monitor medications, and make adjustments as indicated. 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
[2020-12-17] MEDS: haloperidol 5 mg Tablet PO ×2 (12:05→22:27)
[2020-12-17] MEDS: hyDROXYzine 25 mg Capsule 50 MG PO ×2 (12:41→20:55)
[2020-12-17 14:00] VITALS: BP 96/57; PULSE 82; RESP 18; TEMP 36.7; O2SAT 96
[2020-12-17] MEDS: OLANZapine 5 mg ODT PO ×2 (15:37→20:55)
[2020-12-17] MEDS: trazodone 50 mg Tablet PO (20:55)
--- NOTE | 2020-12-17 20:57 | PC.NURSE ---
Addendum entered by Maria M Godwin RN 12/18/20 01:37: @2227 pt is still having Moderate SI, Pt requested A SHOT to stop the thoughts, pt was given Haldol 5mg PO. @0120 Pt is resting. He is sound asleep. Haldol was effective. Original Note: Behavior/PRN's Pt expressed intense Suicidal thoughts to RN, pt is anxious. PRNs given: Trazodone 50mg PO given for sleep onset Vistaril 50mg PRN given for anxiety Zyprexa Zydis 5mg PO given for increased thought process and active SI. RN will continue to observe patient throughout the remainder of shift and report this to other staff providing care now and oncoming staff.
--- NOTE | 2020-12-17 21:10 | PC.NURSE ---
AH Pt says the voices are loud and he they are saying bad things . Intense SI, contracts for safety, pt states, Will come to RN's if they become worse.
[2020-12-17 22:00] VITALS: BP 99/55; PULSE 76; RESP 18; TEMP 36.9; O2SAT 96
[2020-12-18] MEDS: nicotine 2 mg Gum BUCCAL ×5 (00:10→22:06)
[2020-12-18 06:00] VITALS: BP 92/57; PULSE 55; RESP 16; TEMP 36.6; O2SAT 97
[2020-12-18] MEDS: loperamide 2 mg Capsule PO ×2 (10:53→17:19)
[2020-12-18] MEDS: OLANZapine 5 mg ODT PO (11:25)
[2020-12-18] MEDS: haloperidol 5 mg Tablet PO (12:09)
[2020-12-18 14:00] VITALS: BP 97/63; PULSE 80; RESP 18; TEMP 36.6; O2SAT 97
--- NOTE | 2020-12-18 15:14 | PC.NURSE ---
prn 10:53 Administered 2mg Imodium for pt c/o of having diarrhea. 1125 Administered Zyprexa Zydis 5mg for pt c/o hearing voices. 1209 Administered Haldol 5mg for pt still c/o hearing voices.
--- NOTE | 2020-12-18 18:31 | PM.NPN ---
Subjective NPU Subjective: Interval history: Patient presents today reporting that he is open to taking a new approach to his medication. He reports that one of his main concerns though is being able to sleep. We discussed the risks benefits and alternatives of restarting Ambien 10 mg p.o. nightly as well as Invega 6 mg p.o. daily and he understood and agreed to proceed as is documented in this note. He reports that the voices had started to get worse again since we had not started something but his request for medications were problematic and he was agreeable to this approach. Mental Status Exam MSE Comments: This is an overweight, white male in hospital scrubs with adequate grooming, and eye contact. No abnormal movements except for mild psychomotor retardation. Cooperative with exam in mild distress. Speech was slightly decreased rate and volume and effeminate. Mood described as not sleeping well, not good; affect slightly subdued. Thought process, organized. Thought content: patient denied any suicidal or homicidal ideation, there were no delusions reported or noted, patient endorsed auditory but denied visual hallucinations. Attention, concentration, and memory appeared intact but were not formally tested. He was alert and oriented times three. Insight and judgment are limited and impulse control is limited. Vitals/I&O/Wt Last Vital Signs Temp 97.8 F 12/18/20 14:00 Pulse 80 12/18/20 14:00 Resp 17 12/18/20 20:17 BP 97/63 12/18/20 14:00 Pulse Ox 97 12/18/20 14:00 Data NPU : 12/16/20 09:49 12/16/20 09:49 Micro: Microbiology 12/16/20 09:13 Urine Culture - Final Urine,Clean Catch Microbiology 12/16/20 09:13 Urine,Clean Catch Urine Culture - Final A&P Additional A&P Information (1) Suicide attempt: (2) Psychosis: (3) Drug overdose: (4) Cluster B personality disorder: (5) Bipolar depression: Additional A&P Information This is a 35 year old, white male, with history of bipolar disorder, Cluster B personality disorder, along with opiate use disorder on agonist therapy, who presents pff of his medication. 1. Continue current medication. Start Invega 6 mg p.o. daily and Ambien 10 mg p.o. nightly. 2. Continue every 15 minute checks for safety. 3. Encourage individual, group and milieu therapies. 4. Encourage sober living treatment after discharge at the highest level of care to which he is willing to commit. Involuntary Hold Information 96 Hour Hold: 96 Hour Involuntary Admission: No 96 Hour Hold Ending Date: 09/16/20 96 Hour Hold Ending Time: 11:45 Attestations NPU Medical Necessity Statement*: Inpatient hospitalization is medically necessary and the clinically appropriate intervention at this time. He will be in the hospital for over two midnights. We will monitor medications, and make adjustments as indicated. Likely length of stay is 2-4 days Coding Level of Care Code Acute Brush Tr[employer] for [employer]
[2020-12-18 20:17] VITALS: RESP 17
[2020-12-18] MEDS: zolpidem 5 mg Tablet 10 MG PO ×2 (21:57→22:06)
[2020-12-18] MEDS: hyDROXYzine 25 mg Capsule 50 MG PO (22:06)
--- NOTE | 2020-12-18 22:15 | PC.NURSE ---
VISTERIL 50MG PO GIVEN FOR ANXIETY. REASSESSED IN AN HOUR, PT REPORTS LOWERED ANXIETY TO MANAGEABLE LEVEL .
[2020-12-19 06:00] VITALS: BP 97/63; PULSE 80; RESP 17; TEMP 36.6; O2SAT 97
[2020-12-19] MEDS: paliperidone ER 6 mg Tablet PO (08:09)
[2020-12-19] MEDS: nicotine 2 mg Gum BUCCAL ×2 (09:12→12:44)
[2020-12-19] MEDS: loperamide 2 mg Capsule PO (09:22)
--- NOTE | 2020-12-19 10:35 | DCPLANNER ---
IMM completed with pt on 12/19/20 @ 1478. Pt stated he understood dwayne.
--- NOTE | 2020-12-19 13:53 | PM.NDC ---
Diagnoses at Discharge Discharge Diagnosis (1) Suicide attempt: Status: Acute (2) Psychosis: Status: Acute (3) Drug overdose: Status: Acute (4) Cluster B personality disorder: Status: Acute (5) Bipolar depression: Status: Acute Reason for Visit Reason for Visit: SI Brief History: History of Present Illness Shayan Dickson is a 35 year old male who presented to the ED with the following report: Chief Complaint: Psychiatric Symptoms Stated Complaint: SI Time Seen by Provider: 12/16/20 08:45 History of Present Illness: HPI Narrative: 35-year-old male presents emergency room stating take 80 tablets of aspirin last night around 2 PM yesterday which makes it about 20 hours ago. He took some other pills along with that that were not labeled. He does state he was trying to kill himself. He states he had auditory hallucinations of voices telling him to kill himself. He has not had any hematemesis or coffee-ground emesis no hematochezia no melena. He denies any dysuria urgency or frequency. He has tried to harm himself in the past. Evidently this was precipitated by some relationship issues. MD complaint: suicidal ideation and feels depressed Duration: constant History of same: Yes Relieving factors: none Exacerbating factors: none Context: not taking psychiatric medications and significant life stressor Associated psychiatric symptoms: depression, suicidal ideation, auditory hallucinations and visual hallucinations Associated symptoms: Reports auditory hallucinations, depression and suicidal ideation; Deny visual hallucinations, delusions, homicidal ideation or racing thoughts Treatments prior to arrival: none If self harm: admits thoughts of self harm, has plan and has acted on plan. Agreed to the neuropsychiatric unit for definitive treatment of those issues. Patient is well-known to this junior underwriter and to the unit from multiple hospitalizations with the last one being in August of this year. Excerpt of that note is included below for context and as he denies substantive changes. He does endorse however that he has not been back on his medication for reasons that he could not clarify. But he has been off of the medication and not doing as well he reports. He reports that his living arrangement is still fairly stable and he was worried that he was going continue with the suicidal thoughts he was having and so he went to come to the hospital, get restarted on his medication have his suicidality myron and get back on track overall with treatment. Part of his concern what some of the medication was helpful some of it he did not feel was. We agreed we would review his chart and try to get a sense of what direction we might go in the treatment particularly with bipolar disorder. Per his 09/11/2020 [facility] inpatient psychiatric evaluation: History of Present Illness Shayan Dickson is a 35 year old male who presented to the emergency department with the following report: Chief Complaint: Overdose Stated Complaint: SI Time Seen by Provider: 09/10/20 10:40 History of Present Illness: HPI Narrative: Patient is a 35-year-old male who comes to the ED with SI and overdose. Patient says around 5 AM today he took approximately 120 tablets of Tylenol p.m. to kill himself. Patient has history of schizophrenia. He states that he has been suicidal in the past and that currently he is hearing voices that are telling him to kill himself. He states he has been currently taking his psych meds as prescribed but over the last week he feels like they have been helping him. This past week he is hearing the voices more and more. He denies any visual hallucinations or HI. He endorses having a little bit of nausea currently but no other symptoms. Associated symptoms: Reports auditory hallucinations and suicidal ideation; Deny visual hallucinations or homicidal ideation. He was admitted to the neuropsychiatric unit for definitive treatment of those issues. Shayan presents today reporting that he had left ear over a year ago and went down to a friend's place in another state had been doing fairly well. He reports that his uncle started having problems never brought him back. He reports that the reason why he came in was that his voices were increasing and he needed to have some treatment for that. We reviewed his medications and the different ones he had been on identify something he could try. He reports the Zyprexa has been effective for him but that at some point after he left this with him over the Thorazine and the Thorazine stopping helpful. He also was very focused on Suboxone reporting that he is been taking it and he started to have withdrawal symptoms secondary to it not being prescribed. We were able to review his records and determined that he had not had an active prescription at this time. Explained to him our policy only prescribing Suboxone to people with active prescription he had already stated he had the medication available at home but then was very elusive about having somebody bring it to substantiate his claim that he has been taking less to preserve it as he tried to get an appointment. We discussed the risk-benefit alternatives of a trial of Geodon and he understood agreed proceed as documented in his note. He denied any substantive changes in his psychosocial history outside [place] so an excerpt from his previous note is included below. Per his 09/17/[address] [facility] inpatient psychiatric eval: History of Present Illness Shayan Dickson is a 34 year old male Shayan presented to the emergency room reporting a decompensation and wanting to secondary to running out of his medications. 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 He reports that the medications that had been started in his last hospitalization were working fine and he was feeling optimistic about things, continuing to go in the right direction and improve, but as he got further away from them not being able to refill his medications, he started feeling worse and worse, and now he just reports that he is fed up with life and wanting to kill himself. He was admitted to the neuro-psychiatric unit for definitive treatment of those issues. We continued his current medications and agreed to do some investigation into his medications which were discontinued secondary to availability to make sure that it is not something that will prevent that in the future as well. We agreed that if we were able to identify that it was a glitch, that we would restart those medications and if we identify that it was going to be a problem moving forward, we would attempt an alternative treatment plan. He understood and agreed to proceed as is documented in this note. We reviewed his last hospitalization record from 06-25-19 and he denied any substantive changes since that time. An excerpt of that evaluation is included below. Per [place] [facility] [place] HPI [facility] History of Present Illness Shayan Dickson is a 34 year old male who presents today reporting that he is doing okay. He reports that his Zyprexa was discontinued, but he could give no explanation for why that was the case. We discussed his repeat behavior from October of last year which was swallowing the ends of a couple BIC razors, which had already been used, and were fairly dull in this reported suicide attempt. He could not move away from the fact that it was a real and valid attempt and not some kind of gesture. He reported that he thought that if he took those that they would slice him but to be clear these were not actual razorblades that were open. This was little plastic tops of cheap razors that had double blades in them, but they are kind of contained in the plastic so there is some risk, but not extreme risk. The surgeon went in and took them out and had them sent away for testing. We discussed the fact that he does have intellectual disability within special education classes in school, has limited functioning in that way. He continues to live with his uncle and his five dogs. He reports that he will never do this thing with the razors again. We talked about the fact that if he did in fact succeed, that his dogs would be left alone. He reported that he thought about that, but there seemed to be limited connectivity. We reviewed his most recent psychiatric evaluation here and he denied any substantive changes in the history or psychosocial circumstances. Per recent [facility] [place]: HPI NPU History of Present Illness Chief complaint: the voices are so bad that I'm going to kill myself. History of present illness: Shayan Dickson is a 34 year old male who tells an undocumented fairly reasonable story of a life lived suffering auditory hallucinations to varying degrees. When he is doing well, he will hear muttering voices that do not cause him a great deal of difficulty. He states that he seldom is free of the voices. HE deons not report taking medication for this problem on a intermediate or regular basis. 3 months ago, the voices began getting worse. He is has no theory as to why they have gotten worse. 3 weeks ago, they began getting intrusive to the point where he was willing to end his life just to free himself from the torture from these voices. He hears a number of different voices. He is able to interpret who they are. They are from important people in his life. These include a woman that he knows and Her boyfriend, his stepbrother and his . they Say demeaning things in a very loud manner. They tell him that he should and they tell him how he should kill himself. in spite of having struggled with during much of his life, he cannot give any guidance as to what interventions have been helpful. He said that he took lithium for a while and it was quite helpful. However it stopped working. It is noted that he was hospitalized here in October 2018 and was discharged on a combination of Suboxone, Zyprexa, and citalopram. He can give no assessment as to whether the Zyprexa helped him with his voices. He says that if the voices are reduced, he will no longr be suicidal. He is ambivalent about symptoms of depression. He says that he does not do anything enjoyable and simply passes this time when his phone and taking care of animals around his arm. He reports good sleep. He has no specific suicide plan this time. He said suicide thoughts were proceeded by the worsening of the voices. His urine drug screen is negative. He is actively taking the Suboxone and receives it from an outpatient therapist. However he has not continued his medications otherwise from discharge in October 2018. Mental health history: history of this patient was very difficult to acquire. He talks very rapidly and in the low mumbling fashion. His thoughts are mildly disorganized.he reports that originally he grew up in [place] and that at one point he left a rehabilitation program there and moved to [place]. He was only in [place] for 3 months when there were some financial difficulties and he came to the [facility] in 2010. He gives no further history regarding mental health care. It is noted that he can give no advisement regarding any other medication trials that have had any effect positive for negative on his auditory hallucinations. notes from his admission to this unit in October 2018: 11/13/2018 Shayan presents today reporting that the situation with his razor blade centered around his loss of his fianc?e. He reports that his significant other had committed suicide about 3 days shy of 2 years of when he made this suicide attempt before admission. He reports that he was feeling very low without feeling a clear sense of relief. And he had read online that he swallowed a razor blade that it would go through certain parts and because it was internal organs you would not feel it as it was slicing through things and that he would bleed out in his sleep. He reports that when he woke up and was alive but had a rectal bleeding he got really anxious and that when he came to the hospital. He is passed the razor blade now and at this point he reports that he is feeling better and more optimistic. With his first day on the psychiatric unit we discussed the fact that we needed to observe him for a couple of days to get a sense of where he really is prior to being comfortable with discharge. We had filed a 21-day hold paperwork but were able to negotiate and get an agreement that he will work with us over the next few days with a plan for discharge at the beginning of the week. Hospital Course: Shayan presented to the unit after being in the ICU and followed by surgery secondary to the ingestion of a razor blade or at least razor blade containing item from the head of a razor. After being followed until the object had been defecated since they were unable to get it by surgical means he was transferred to the NPU. After he woke up alive he reports that he got himself to the hospital for help and reports that he did not have any lethality after awaking and felt a desire to get help and not continue with self-injurious suicidal behaviors. So after a few days in the ICU he spent a few days in the NPU where he was observed and each day denied any lethality and a desire to go home and continue with his life. His medications were continued. Once he got to the NPU he acclimated to the individual, group and milieu therapies. While he was in the hospital he had routine laboratory studies which were within normal limits except for a few outliers. Those can be seen below. He also had a general medical evaluation this was within normal limits and revealed no acute processes except for the issue with the intentional ingestion. At the time of discharge his mood had improved, his lethality had resolved and he was sleeping better. He endorsed the plan to take his medication as prescribed, continue with his recovery oriented outpatient treatments and abstain from drugs of abuse as well as self-injurious and suicidal behaviors. He had obtained all the benefits he could get from the inpatient unit so he was discharged. Social history:the patient is currently supporting himself through his disability payments. He lives with uncle who apparently has a farm. He spends much of his time helping his uncle with daily activities around the farm such as feeding animals and taking care of the general grounds. He engages in no enjoyable activities and largely spends his time playing on his phone. His uncle apparently is advanced in age and is concerned about Shayan's well-being as the uncle's health declines. Shayan's uncle has advised him to go to a rehabilitation program and get off the Suboxone so that eventually he can be placed in a usp or residential care facility. Legal history:there is no history in the [place] public record of incarcerations or felony arrests. Past medical history: Allergies Escitalopram. NSAIDS (NON-STEROIDAL ANTI-INFLAMMA. Venlafaxine. SOCIAL HX: Heavy tobacco smoker (cigarette)- 1 pack per day. No alcohol use or drug use. No recent travel. PROBLEMS: Ulcerative Colitis. GI Bleeding. Depression. Bipolar Disorder. Colitis. ADDITIONAL SURGERIES: Appendectomy. . Mental Status Exam: the patient is an alert interpersonally engaged male. He is believed to be a reliable informant to the best of his ability as information that is provided is internally consistent and consistent with that in the chart. Appearance: hygiene is fair; no gross neurological deficits., gait is unremarkable; AIMS=0 Speech: Speech is she is rapid with indistinct enunciation with frequently makes some of the information difficult to assess. Thought processes: Thought processes are abstract. Judgment is adequate for safety. Associations: intact Psychotic processes: There is no indication of guarding or paranoia. There is no attention to the internal stimuli. auditory hallucinations are reported as above. He denied the presence of visual hallucinations. Judgment: Insight is good. Problem solving skills are adequate for safety. Orientation: The patient is oriented to person, place time and situation. Memory: no deficits noted in immediate, intermediate, or remote spheres. Attention: The patient is alert and interpersonally engaged. Language: Verbalizations are coherent. Fund of knowledge: Fund of knowledge is adequate. Affect/Mood: Affect is consistent with a depressed mood. he reported vague suicidal ideation without intent or plan. Affective range good Psychosis: perception unimpaired despite intrusive auditory hallucinations that he is experiencing.; reality testing intact. Diagnoses: schizophrenia?undifferentiated, acute Assessment:this is a difficult situation given that he has a long-standing history of schizophrenia but can give no feedback as to what medications have been tried without any success in the past. At this point, we will continue the Zyprexa 20 mg at bedtime and also provide when necessary dosing during the day with Geodon as needed for auditory hallucinations. He will continue with Suboxone and the Celexa. We will discuss the feasibility of placement in a rehabilitation program with social staff worker. If this is a reasonable possibility, tapering some from Suboxone will be discussed. Hospital Course Hospital Course He quickly acclimated to the individual, group and milieu therapy provided. He is well-known to the unit and reportedly had been off of his medication. We restarted him on Invega 6 mg p.o. daily the mood stabilizer and added Ambien for sleep with significant improvement. He endorsed feeling better and wanting to be discharged and essentially. At baseline. He was able to contract for safety prior to discharge. During the hospitalization, patient had routine laboratory studies which were within normal limits except for few outliers. Additionally there was a general medical evaluation which was also within normal limits and revealed no new acute processes. Discharge Summary: At the time of discharge, he denied psychosis or lethality. Mood and anxiety were well managed. Patient endorsed a plan to avoid all drugs of abuse and follow-up with the aftercare recommendations of the treatment team. Patient was evaluated and deemed to be absent credible lethality, and had achieved the maximum benefit from an inpatient hospitalization, so was discharged. Involuntary Hold Information 96 Hour Hold: 96 Hour Involuntary Admission: No 96 Hour Hold Ending Date: 09/16/20 96 Hour Hold Ending Time: 11:45 Mental Status Exam MSE Comments: This is an overweight, white male in hospital scrubs with adequate grooming, and eye contact. No abnormal movements except for mild psychomotor retardation. Cooperative with exam in no acute distress. Speech was more normal rate and volume and effeminate. Mood described as much better; affect congruent. Thought process, organized. Thought content: patient denied any suicidal or homicidal ideation, there were no delusions reported or noted, patient denied active auditory and denied visual hallucinations. Attention, concentration, and memory appeared intact but were not formally tested. He was alert and oriented times three. Insight and judgment are limited, but improving and impulse control is limited. Discharge Data Vitals: Last Vital Signs Temp 97.8 F 12/19/20 06:00 Pulse 80 12/19/20 06:00 Resp 17 12/19/20 06:00 BP 97/63 12/19/20 06:00 Pulse Ox 97 12/19/20 06:00 Discharge Plan Discharge Patient Disposition: Home Condition: Stable Prescriptions: New zolpidem 5 mg Tablet 10 mg PO BEDTIME 30 Days Qty: 60 RF: 1 paliperidone 6 mg Tablet Extended Release 24hr 6 mg PO DAILY 30 Days Qty: 30 RF: 1 Discontinued levetiracetam [Keppra] 500 mg Tablet 500 mg PO BID MDD see pharmacy comment RF: 0 gabapentin 800 mg Tablet 800 mg PO TID MDD see pharmacy comment RF: 0 amitriptyline 100 mg Tablet 100 mg PO BEDTIME MDD see pharmacy comment RF: 0 clonazepam 0.5 mg tablet 0.5 mg PO TID PRN (Reason: Anxiety) RF: 0 phenytoin sodium extended 100 mg capsule See Rx Instructions .ROUTE .COMPLEX RF: 0 buprenorphine-naloxone [Suboxone] 8-2 mg film 2 - 8 film buccal DAILY MDD see pharmacy comment 2 Days Qty: 4 RF: 0 haloperidol [Haldol] 5 mg Tablet 5 mg PO BEDTIME RF: 0 chlorpromazine 100 mg Tablet 600 mg PO BEDTIME MDD see pharmacy comment RF: 0 Discharge Orders: Discharge Order (Routine); Ordered 12/19/20 Ordered By: Jag Escobar [place] [facility] [place] Discharge Diet: Regular Discharge Activity: Resume usual activity Patient Instructions: Opioid Safety Discharge Attestations NPU Time Spent in Discharge Care*: less than 30 min Specific Discharge Activities: Specific discharge activities: educating patient, discussing with geriatric case manager/social workers/dc planners, documenting/other paperwork and evaluating patient/reviewing data Coding Level of Care Code Acute [facility] FW DC note Diagnoses Suicide attempt T14.91XA Psychosis F29 Drug overdose T50.901A Cluster B personality disorder F60.89 Bipolar depression F31.9
[2020-12-19 13:56] VITALS: BP 97/63; PULSE 80; RESP 17; TEMP 36.6; O2SAT 97
--- NOTE | 2020-12-19 15:37 | PC.RESP ---
SMOKING CESSATION INFORMATION SENT TO PATIENT.
--- NOTE | 2020-12-22 10:40 | PC.NURSE ---
discharge meds, Invega & Zolpidem, called into [facility] pharmacy in [place] @ [phone]. spoke to Shabana
== END 2020-12-19 14:05 | disposition home or self-care (01) | DRG 914 ==
LOC: ER 09:14 → NP 10:30
PROVIDERS: Admitting Provider Psychiatry & Neurology Psychiatry; Emergency Provider Family Medicine; Visit Provider Psychiatry & Neurology Psychiatry
DX: T14.91XA Suicide attempt, initial encounter (principal); F31.5 Bipolar disorder, current episode depressed, severe, with psychotic features; T39.012A Poisoning by aspirin, intentional self-harm, initial encounter; F60.89 Other specific personality disorders; F29 Unspecified psychosis not due to a substance or known physiological condition; F17.210 Nicotine dependence, cigarettes, uncomplicated; F11.90 Opioid use, unspecified, uncomplicated
CPT/HCPCS: 80053; 80306; 80307; 81001; 85025; 87086; 93005; 97165; 99285

== ENCOUNTER 2021-01-09 06:39 | Inpatient (IN) | payer MEDICARE, MEDICAID, SELFPAY ==
[2021-01-09] VITALS (99 sets, daily range): BP systolic 81–125; BP diastolic 45–80; PULSE 55–96; RESP 9–25; TEMP 36.6–37; O2SAT 89–100; BMI 25.1
--- NOTE | 2021-01-09 07:02 | ECG_ITS ---
[facility] Test Date: 2021-01-09 Pat Name: Shayan Dickson Department: Room: Gender: Male Sales Counselor: : 1985 Requested By: Farhad Grigsby Order Number: [id number] Krzysztof MD: Maynor Huynh M.D. Measurements Intervals [place] Rate: 80 P: 62 [place]: 199 QRS: -85 QRSD: 124 T: 69 QT: 310 QTc: 359 Interpretive Statements SINUS RHYTHM LEFT AXIS DEVIATION [QRS AXIS < -30] POSSIBLE RIGHT VENTRICULAR CONDUCTION DELAY [RSR (QR) IN V1/V2] NONSPECIFIC ST ELEVATION [0.05+ mV ST ELEVATION] Compared to ECG 12/16/2020 10:06:05 ST (T wave) deviation now present Electronically Signed On 01-09-2021 18:35:54 CDT by Maynor Huynh M.D. [id number]
--- NOTE | 2021-01-09 07:13 | XR_ITS ---
WS: [id number] XR KUB portable [id number] REASON FOR EXAM: ingested FB, ? razor blade FINDINGS: Complex foreign body in the right upper quadrant which appears to be in the distal esophagus at the l evel of the gastroesophageal junction. The object in part appears to be a spring-loaded clamp. No free air or retroperitoneal air. Unremarkable bowel gas pattern. No mass identified. No significant calcification. XR/XR KUB portable [id number] IMPRESSION: Metallic foreign body, apparently in the distal esophagus and GE junction.
[2021-01-09 07:38] LABS: Basophils % 0.3 %; Eosinophils # 0.2 10^3/uL (0.0-0.8); Eosinophils % 3.4 %; Hematocrit 41.9 % (42.0-52.0); Hemoglobin 14.8 g/dL (11.7-16.6); Lymphocytes # 1.5 10^3/uL (0.8-4.8); Lymphocytes % 20.8 %; Mean Corpuscular HGB Conc 35.3 g/dL (30.0-36.0); Mean Platelet Volume 10.2 fL (7.4-10.4); Monocytes # 0.5 10^3/uL (0.2-0.9); Monocytes % 7.4 %; Neutrophils # 4.77 10^3/uL (1.8-7.7); Nucleated Red Blood Cells % 0 %; Platelet Count 235 10^3/cmm (130-400); Red Blood Count 4.93 10^6/uL (4.1-5.3); Red Cell Distribution Width 13.3 % (12.1-15.1)
[2021-01-09 07:47] LABS: Amphetamines Screen Urine Negative (Negative); Barbiturates Screen Urine Negative (Negative); Benzodiazepines Screen Urine Negative (Negative); Cocaine Screen Urine Negative (Negative); Opiate Screen Urine Negative (Negative); PCP Screen Urine Negative (Negative); THC Screen Urine Negative (Negative)
[2021-01-09 07:48] LABS: Urine Appearance Clear (CLEAR); Urine Color Dark Yellow (Yellow)
[2021-01-09 07:49] LABS: Add Urine Microscopic? YES; Bilirubin Urine 1+ (Negative); Blood Urine Neg (Negative); Glucose Urine UA Norm (Normal); Ketones Urine 1+ (Negative); Leukocyte Esterase Urine Negative (Negative); Nitrate Urine Negative (Negative); Protein Urine 1+ (Negative); Urobilinogen Urine 4 mg/dL (Negative); pH Urine 5 (5-7)
[2021-01-09 07:53] LABS: Alanine Aminotransferase < 5 U/L (0-41); Albumin Level 4.3 g/dL (3.5-5.2); Alkaline Phosphatase 79 IU/L (40-130); Anion Gap 15.1 (5-19); Aspartate Amino Transferase 9 U/L (0-40); Blood Urea Nitrogen 12 mg/dL (6-20); Calcium 8.9 mg/dL (8.5-10.5); Carbon Dioxide 24 mmol/L (22-29); Chloride 101 mmol/L (98-107); Glomerular Filtration Rate 152.4 mL/min (90-130); Glucose 93 mg/dL (65-115); Osmolality Calculated 281 mOsm/kg (285-295); Potassium 4.1 mmol/L (3.5-5.1); Salicylate 6.7 mg/dL (3-10); Sodium 136 mmol/L (136-145); Total Bilirubin 0.3 mg/dL (0.15-1.2); Total Protein 6.3 g/dL (6.6-8.7)
[2021-01-09 07:54] LABS: Bacteria Urine TRACE /hpf; Squamous Epithelial Cell Urine 0-4 /hpf (0-5)
[2021-01-09 07:55] LABS: Add Urine Culture? No; Calcium Oxalate Crystals Urine 40-55 /hpf; Mucus Urine 2+ /hpf
[2021-01-09 08:08] LABS: Acetaminophen < 5.0 ug/mL (10-30)
--- NOTE | 2021-01-09 08:19 | PC.PHAR ---
pt states he takes care of his own medications-pt states he takes suboxone bid ext med history shows last filled 07/02/20 30d/s pt states he ran out of this last week pt states he got somewhere in [place] but cant tell me what city
--- NOTE | 2021-01-09 08:47 | ED_ITS ---
HPI - Overdose General: Chief Complaint: Overdose Stated Complaint: SI - STATES ATTEMPT MADE Time Seen by Provider: 01/09/21 06:58 History of Present Illness: HPI Narrative: 35-year-old male presents emergency room states he took 30 Ambien last night 10 mg tablets note for 5:00 this morning took 66 mg tablets of Invega. He did not feel like it was effective in his attempts to kill himself so he then ingested a razor blade that he had been using to try to cut his left wrist there is superficial abrasions on the left wrist. Denies any hematemesis coffee-ground emesis he has presented to our emergency room in the past with ingestion of razor blades. complaint: intentional overdose Onset (ago): hour(s) Review of Systems Const: Denies: fever(s), chills, body aches, change in appetite, fatigue or malaise ENMT: Denies: throat pain, ear or mastoid pain, nasal discharge or nasal congestion Card: Denies: chest pain, edema, dyspnea on exertion or orthopnea Resp: Denies: dyspnea, productive cough or non-productive cough GI: Denies: abdominal pain, nausea, vomiting, hematemesis, coffee ground emesis, diarrhea, constipation, bloating, hematochezia or melena : Denies: flank pain, dysuria, urinary frequency or urinary urgency Skin/Breast: Denies: rash or pruritus PFSH ED PFSH: Medical History (Updated 01/09/21 @ 10:11 by Mich Madera MD) Opiate misuse Schizophrenia Suicide attempt Ulcerative colitis Surgical History History of appendectomy Social History (Updated 01/09/21 @ 10:11 by Mich Madera MD) Smoking and tobacco status: current every day smoker Alcohol intake: never Physical Exam Const: COMMON NORMALS: no acute distress GENERAL APPEARANCE: cooperative and comfortable ORIENTATION/CONSCIOUSNESS: Yes awake HENMT: COMMON NORMALS: normocephalic, atraumatic and hearing grossly normal bilaterally HEAD & SCALP: normocephalic and atraumatic Neck/C-Spine: COMMON NORMALS: no JVD Resp: COMMON NORMALS: normal respiratory effort, No retractions, No use of accessory muscles and clear to auscultation bilaterally AUSCULTATION: clear to auscultation bilaterally Cardio: COMMON NORMALS: no JVD, regular rate, regular rhythm and No murmurs present (Cardio) RATE: regular rate RHYTHM: regular rhythm GI: COMMON NORMALS: Soft to palpation and No hepatosplenomegaly present AUSCULTATION: Yes normoactive bowel sounds PALPATION: Yes Soft to palpation, No Tenderness to palpation present (GI), No Guarding due to palpation present (GI) and Yes No hepatosplenomegaly present Extremity: COMMON NORMALS: normal to inspection, capillary refill normal, no clubbing, cyanosis or edema, no calf tenderness and no pedal edema Skin: COMMON NORMALS: no rashes or lesions noted GENERAL SKIN EXAM: no rashes or lesions noted Course Vital Signs: Vital signs: Vital Signs Temperature 98.1 F 01/10/21 07:30 Pulse Rate 69 01/10/21 10:00 Respiratory Rate 17 01/10/21 10:00 Blood Pressure 103/50 01/10/21 10:00 Pulse Oximetry 91 01/10/21 10:00 MDM - Overdose MDM Narrative: Medical decision making narrative: Discussed Dr. Craig, Dr. Riddle, and Dr. Escobar. Dr. Craig is agreed to remove the razor blade which was seen on the KUB. Nursing staff has called poison control for recommendations regarding the Invega. Patient is stable at the time. He will go to outpatient GI for retrieval of the razor blade and then when an ICU bed is available who be monitored there until he is felt to be appropriate for neuropsychiatry floor. Dr. Escobar is agreed to see the patient once he has been cleared medically to go to the neuropsych floor. Lab Data: Labs: Lab Results 01/09/21 01/09/21 01/09/21 07:13 07:13 07:28 WBC 7.0 10^3/uL 10^3/ uL (4.0-10.0) RBC 4.93 10^6/uL 10^6 /uL (4.1-5.3) Hgb 14.8 g/dL g/dL (11.7-16.6) Hct 41.9 % L % (42.0-52.0) MCV 85.0 fl fl (80-94) MCH 30.0 pg pg (28.0-34.0) MCHC 35.3 g/dL g/dL (30.0-36.0) RDW 13.3 % % (12.1-15.1) Plt Count 235 10^3/cmm 10^3 /cmm (130-400) MPV 10.2 fL fL (7.4-10.4) Neut % (Auto) 68.0 % % Lymph % (Auto) 20.8 % % [place] % (Auto) 7.4 % % Eos % (Auto) 3.4 % % Baso % (Auto) 0.3 % % Neut # (Auto) 4.77 10^3/uL 10^3 /uL (1.8-7.7) Lymph # (Auto) 1.5 10^3/uL 10^3/ uL (0.8-4.8) [place] # (Auto) 0.5 10^3/uL 10^3/ uL (0.2-0.9) Eos # (Auto) 0.2 10^3/uL 10^3/ uL (0.0-0.8) Baso # (Auto) 0.0 10^3/uL 10^3/ uL (0.0-0.1) Nucleated RBC % (a uto) 0 % % Nucleated RBCs # 0.0 /100WBC /100W BC Sodium Potassium Chloride Carbon Dioxide Anion Gap BUN Creatinine GFR Calculation Glucose Calculated Osmolal ity Calcium Total Bilirubin AST ALT Alkaline Phosphata se Total Protein Albumin Globulin Urine Color Dark yellow (Yellow) Urine Appearance Clear (CLEAR) Urine pH 5 (5-7) Ur Specific Gravit y 1.030 (1.005-1.030) Urine Protein 1+ H (Negative) Urine Glucose (UA) Norm (Normal) Urine Ketones 1+ H (Negative) Urine Blood Neg (Negative) Urine Nitrate Negative (Negative) Urine Bilirubin 1+ H (Negative) Urine Urobilinogen 4 mg/dL H mg/dL (Negative) Ur Leukocyte Riya ase Negative (Negative) Urine RBC None /hpf /hpf (0-2) Urine WBC None /hpf /hpf (0-5) Ur Squamous Epith Cells 0-4 /hpf H /hpf (0-5) Calcium Oxalate Cr ystal 40-55 /hpf H /hpf Amorphous Sediment Not Reportable Urine Bacteria Trace /hpf /hpf (NONE) Urine Mucus 2+ /hpf /hpf Salicylates Urine Opiates Scre en Negative ng/mL ng /mL (Negative) Acetaminophen Ur Barbiturates Sc reen Negative ng/mL ng /mL (Negative) Ur Phencyclidine S crn Negative ng/mL ng /mL (Negative) Ur Amphetamines Sc reen Negative ng/mL ng /mL (Negative) U Benzodiazepines Scrn Negative ng/mL ng /mL (Negative) Urine Cocaine Scre en Negative ng/mL ng /mL (Negative) U Marijuana (THC) Screen Negative ng/mL ng /mL (Negative) 01/09/21 07:28 WBC RBC Hgb Hct MCV MCH MCHC RDW Plt Count MPV Neut % (Auto) Lymph % (Auto) [place] % (Auto) Eos % (Auto) Baso % (Auto) Neut # (Auto) Lymph # (Auto) [place] # (Auto) Eos # (Auto) Baso # (Auto) Nucleated RBC % (a uto) Nucleated RBCs # Sodium 136 mmol/L mmol/L (136-145) Potassium 4.1 mmol/L mmol/L (3.5-5.1) Chloride 101 mmol/L mmol/L (98-107) Carbon Dioxide 24 mmol/L mmol/L (22-29) Anion Gap 15.1 (5-19) BUN 12 mg/dL mg/dL (6-20) Creatinine 0.6 mg/dL L mg/dL (0.7-1.2) GFR Calculation 152.4 mL/min H mL /min (90-130) Glucose 93 mg/dL mg/dL (65-115) Calculated Osmolal ity 281 mOsm/kg L mOs m/kg (285-295) Calcium 8.9 mg/dL mg/dL (8.5-10.5) Total Bilirubin 0.3 mg/dL mg/dL (0.15-1.2) AST 9 U/L U/L (0-40) ALT < 5 U/L U/L (0-41) Alkaline Phosphata se 79 IU/L IU/L (40-130) Total Protein 6.3 g/dL L g/dL (6.6-8.7) Albumin 4.3 g/dL g/dL (3.5-5.2) Globulin 2.0 g/dL g/dL (1.3-4.6) Urine Color Urine Appearance Urine pH Ur Specific Gravit y Urine Protein Urine Glucose (UA) Urine Ketones Urine Blood Urine Nitrate Urine Bilirubin Urine Urobilinogen Ur Leukocyte Riya ase Urine RBC Urine WBC Ur Squamous Epith Cells Calcium Oxalate Cr ystal Amorphous Sediment Urine Bacteria Urine Mucus Salicylates 6.7 mg/dL mg/dL (3-10) Urine Opiates Scre en Acetaminophen < 5.0 ug/mL L ug/ mL (10-30) Ur Barbiturates Sc reen Ur Phencyclidine S crn Ur Amphetamines Sc reen U Benzodiazepines Scrn Urine Cocaine Scre en U Marijuana (THC) Screen Discharge Plan Discharge Patient Disposition: Placed in Observation Admit Provider: Christopher Decker Clinical Impression: Suicide attempt, Cluster B personality disorder, Drug overdose, Foreign body ingestion Coding Level of Care Code 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
--- NOTE | 2021-01-09 09:13 | PM.CONSULT ---
Providers/Reason For Consult Consulting Physician/Specialty*: General Surgery Dr. Craig Reason for Consult*: Foreign body ingestion Requesting Physician: Dr. Caballero History of Present Illness History of Present Illness Shayan Dickson is a 35 year old male who attempted committing suicide today and swallowed razor blade. Patient denies any abdominal pain. No hematemesis or melena. Patient has been complaining of nausea, but no vomiting , and he also has mild chest pain. Review of Systems General: Reports: 10 or more systems reviewed and unremarkable except in HPI and below Meds/Allergies Home Medications and Allergies Home Medications Medication Instructions Recorded Confirmed Last Taken Type paliperidone 6 mg PO DAILY 30 Days #30 tab 12/19/20 01/09/21 Unknown Rx zolpidem 10 mg PO BEDTIME 30 Days #60 tab 12/19/20 01/09/21 Unknown Rx buprenorphine-naloxone 1 film SUBLINGUAL BID 01/09/21 01/09/21 Unknown History Allergies Allergy/AdvReac Type Severity Reaction Status Date / Time mushroom Allergy Unknown Unknown Verified 01/09/21 08:19 escitalopram [From Lexapro] Allergy ALGY-Anaphy Verified 01/09/21 08:19 laxis NSAIDS (Non-Steroidal Allergy ADR-Abdominal Verified 01/09/21 08:19 Anti-Inflamma Pain venlafaxine [From Effexor] Allergy ALGY-Anaphy Verified 01/09/21 08:19 laxis PFSH Acute PFSH: Medical History (Updated 01/09/21 @ 09:14 by Danny Craig MD) Opiate misuse Suicide attempt Surgical History History of appendectomy Social History Smoking and tobacco status: current every day smoker Vitals/I&O/Wt Last Vital Signs Temp 98.6 F 01/09/21 06:45 Pulse 84 01/09/21 06:45 Resp 16 01/09/21 06:45 BP 122/80 01/09/21 06:45 Pulse Ox 98 01/09/21 06:45 Weight last 48 hrs Weight 180 lb Physical Exam Narrative: EXAM NARRATIVE: HEENT: Normocephalic Eye: Sclera /conjunctiva normal Respiratory and chest: Bilateral clear breath sounds on auscultation Cardiovascular: Normal S1 and S2 heart sounds Abdomen: Soft to palpation Neurological: Oriented to place person and time Skin: Intact, no lesions appreciated on gross exam A&P Assessment and plan (1) Foreign body ingestion: 35-year-old male who attempted suicide and swallowed a razor blade today. Patient is complaining of chest pain no evidence of active GI bleed. Plan for EGD with removal of foreign body under MAC. Discussed with the patient the risk of bleeding and esophageal perforation and need for possible thoracotomy etc. 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
--- NOTE | 2021-01-09 09:14 | ANES.PREANE2 ---
Pre-Anesthetic Assessment Pre-Anesthetic Assessment: Height/Weight: Height 1.8 m Weight 81.647 kg Temp Pulse Resp BP Pulse Ox 98.6 F 84 16 122/80 98 01/09/21 06:45 01/09/21 06:45 01/09/21 06:45 01/09/21 06:45 01/09/21 06:45 Preop Diagnosis: Swallowed foreign bodies Proposed Procedure: Operation Date: 01/09/21 09:00 Proposed Procedures p EGD(Not Applicable) - Danny Craig MD Familial anesthetic complications: None Was Beta [place] taken within 24 hours: N/A Was Clonidine taken within 24 hours: N/A Last intake: NPO > 8 hrs Social: Social History: Tobacco and No alcohol Exam: Pre-Anes Outpt Exam: alert, oriented x 3, clear to auscultation bilaterally and regular rate & rhythm Airway: Cervical ROM: WNL MP: 3 Dentition: Full Neuropsych: Comments: schizophrenia Anesthetic Plan: ASA status: 3E Anesthesia: General Risk of > 500 ml blood loss (7ml/kg in children): No Other Pertinent Information: took 2 ambien and invega this morning - denies any overdose PFSH Anesthesia PFSH: Medical History (Updated 01/09/21 @ 09:14 by Danny Craig MD) Opiate misuse Suicide attempt Surgical History History of appendectomy Social History Smoking and tobacco status: current every day smoker Data Anesthesia CBC & Chem 7: 01/09/21 07:28 01/09/21 07:28 Other Labs: Laboratory Results - last 48 hr 01/09/21 01/09/21 01/09/21 07:13 07:13 07:28 WBC 7.0 RBC 4.93 Hgb 14.8 Hct 41.9 L MCV 85.0 MCH 30.0 MCHC 35.3 RDW 13.3 Plt Count 235 MPV 10.2 Neut % (Auto) 68.0 Lymph % (Auto) 20.8 [place] % (Auto) 7.4 Eos % (Auto) 3.4 Baso % (Auto) 0.3 Neut # (Auto) 4.77 Lymph # (Auto) 1.5 [place] # (Auto) 0.5 Eos # (Auto) 0.2 Baso # (Auto) 0.0 Nucleated RBC % (auto) 0 Nucleated RBCs # 0.0 Sodium Potassium Chloride Carbon Dioxide Anion Gap BUN Creatinine GFR Calculation Glucose Calculated Osmolality Calcium Total Bilirubin AST ALT Alkaline Phosphatase Total Protein Albumin Globulin Urine Color Dark yellow Urine Appearance Clear Urine pH 5 Ur Specific [place] 1.030 Urine Protein 1+ H Urine Glucose (UA) Norm Urine Ketones 1+ H Urine Blood Neg Urine Nitrate Negative Urine Bilirubin 1+ H Urine Urobilinogen 4 H Ur Leukocyte Esterase Negative Urine RBC None Urine WBC None Ur Squamous Epith Cells 0-4 H Calcium Oxalate Crystal 40-55 H Amorphous Sediment Not Reportable Urine Bacteria Trace Urine Mucus 2+ Salicylates Urine Opiates Screen Negative Acetaminophen Ur Barbiturates Screen Negative Ur Phencyclidine Scrn Negative Ur Amphetamines Screen Negative U Benzodiazepines Scrn Negative Urine Cocaine Screen Negative U Marijuana (THC) Screen Negative 01/09/21 07:28 WBC RBC Hgb Hct MCV MCH MCHC RDW Plt Count MPV Neut % (Auto) Lymph % (Auto) [place] % (Auto) Eos % (Auto) Baso % (Auto) Neut # (Auto) Lymph # (Auto) [place] # (Auto) Eos # (Auto) Baso # (Auto) Nucleated RBC % (auto) Nucleated RBCs # Sodium 136 Potassium 4.1 Chloride 101 Carbon Dioxide 24 Anion Gap 15.1 BUN 12 Creatinine 0.6 L GFR Calculation 152.4 H Glucose 93 Calculated Osmolality 281 L Calcium 8.9 Total Bilirubin 0.3 AST 9 ALT < 5 Alkaline Phosphatase 79 Total Protein 6.3 L Albumin 4.3 Globulin 2.0 Urine Color Urine Appearance Urine pH Ur Specific [place] Urine Protein Urine Glucose (UA) Urine Ketones Urine Blood Urine Nitrate Urine Bilirubin Urine Urobilinogen Ur Leukocyte Esterase Urine RBC Urine WBC Ur Squamous Epith Cells Calcium Oxalate Crystal Amorphous Sediment Urine Bacteria Urine Mucus Salicylates 6.7 Urine Opiates Screen Acetaminophen < 5.0 L Ur Barbiturates Screen Ur Phencyclidine Scrn Ur Amphetamines Screen U Benzodiazepines Scrn Urine Cocaine Screen U Marijuana (THC) Screen Cardiac Studies: No Data to Display
[2021-01-09] MEDS: sodium chloride 0.9% 1,000 ML 30 ML IV (09:20)
--- NOTE | 2021-01-09 10:02 | PM.HP ---
Providers/Chief Complaint Chief Complaint: SI - STATES ATTEMPT MADE History of Present Illness Shayan Dickson is a 35 year old male presenting to the emergency department reporting he was very depressed and attempted suicide by ingestion of pills and ultimately a razor blade. He initially took some Ambien last night. He took Invega this morning. He cannot tell me a specific number but the emergency department thought that it could be as many as 60 pills. As this did not make him feel any differently ultimately ingested a razor blade. No blood in stool, black or tarry stools, hematemesis or vomiting. I have visited with him in GI Lab, where endoscopy was being planned to remove the razor blade. Review of Systems General: Reports: 10 or more systems reviewed and unremarkable except in HPI and below Const: Denies: fever(s) Eyes: Denies: change in vision ENMT: Denies: throat pain Card: Denies: chest pain Resp: Denies: dyspnea GI: Denies: abdominal pain : Denies: flank pain Musc: Denies: neck pain Skin/Breast: Denies: rash Neuro: Denies: headache(s) Psych: Reports: depression Endo: Denies: polyuria [place]/Lymph: Denies: easy bruising All/Imm: Denies: urticaria Medications/Allergies Home Medications Medication Instructions Recorded Confirmed Last Taken Type paliperidone 6 mg PO DAILY 30 Days #30 tab 12/19/20 01/09/21 Unknown Rx zolpidem 10 mg PO BEDTIME 30 Days #60 tab 12/19/20 01/09/21 Unknown Rx buprenorphine-naloxone 1 film SUBLINGUAL BID 01/09/21 01/09/21 Unknown History Allergies Allergy/AdvReac Type Severity Reaction Status Date / Time mushroom Allergy Unknown Unknown Verified 01/09/21 08:19 escitalopram [From Lexapro] Allergy ALGY-Anaphy Verified 01/09/21 08:19 laxis NSAIDS (Non-Steroidal Allergy ADR-Abdominal Verified 01/09/21 08:19 Anti-Inflamma Pain venlafaxine [From Effexor] Allergy ALGY-Anaphy Verified 01/09/21 08:19 laxis PFSH Acute PFSH: Medical History (Updated 01/09/21 @ 10:11 by Mich Madera MD) Opiate misuse Schizophrenia Suicide attempt Ulcerative colitis Surgical History History of appendectomy Social History (Updated 01/09/21 @ 10:11 by Mich Madera MD) Smoking and tobacco status: current every day smoker Alcohol intake: never Supplemental [facility] Information: Denies knowledge of any significant family history. Vitals/I&O/Wt Last Vital Signs Temp 98.6 F 01/09/21 06:45 Pulse 66 01/09/21 09:10 Resp 18 01/09/21 09:10 BP 109/68 01/09/21 09:10 Pulse Ox 96 01/09/21 09:10 Weight last 48 hrs Weight 81.647 kg Physical Exam Narrative: EXAM NARRATIVE: General exam is a male, no distress, alert and oriented. Seems somewhat sleepy. HEENT: Atraumatic normocephalic. Oropharynx clear. Neck is supple no lymphadenopathy or thyromegaly Cardiovascular regular rate and rhythm without murmur, no S3 or S4 Lungs clear no wheezing or crackles Abdomen is soft, positive bowel sounds. No obvious organomegaly exam is deferred Extremities no cyanosis clubbing or edema, cap refill brisk. Skin no rash Neuro no obvious focal deficits. Data : 01/09/21 07:28 01/09/21 07:28 Other data: LFTs normal. Urinalysis negative with the exception of concern calcium oxalate crystals. Urine drug screen negative. Salicylate level 6.7. Acetaminophen level less than 5. Abdominal x-ray demonstrated foreign body, likely GE junction. This appears to correlate with a razor blade head per patient history. EKG demonstrates sinus rhythm, left axis, nonspecific ST did T wave changes. QTc 359 A&P Assessment and plan (1) Suicide attempt: 96-hour hold placed in the emergency department Originally took Ambien last night. Took Invega, large number of pills this morning Monitor in ICU Psychiatric consultation When medically stable, transfer to psychiatry Status: Acute (2) Foreign body ingestion: Consultation with Dr. Craig for removal Status: Acute Additional A&P Information Severe depression, history of schizophrenia. Psychiatry to see. History of ulcerative colitis. Patient reports he is on no medications. Diagnosis is not confirmed. Full code Low risk for DVT. No prophylaxis. Attestations Medical Necessity Statement*: Will need greater than 2 midnight stay secondary to suicide attempt by ingestion. 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
--- NOTE | 2021-01-09 11:31 | PC.CHAP ---
Pastoral Care Encounter/Spiritual Assessment Type of Contact [] Declined sport psychologist visit [] Patient/Family/Request visit [] Outpatient visit [] Follow-up visit [] Physician referral [] Code/Alert [x] Routine visit [] Staff referral [] Actively dying [] Patient sleeping [] Family support [] [] Out of room [] Palliative care [] [x] Receiving care in room [] Pre-surgical visit [] Trauma [] Long length of stay [x] ICU visit [] Other: Relational/Emotional Strength [] Patient feels connected with others/family/visitors/staff [] Distress [] Loneliness/isolation [] Abandonment Spirituality of Patient [] Person of Janneth [] Attends Congregation of their Janneth [] Believes in Prayer [] Reads Bible or Sabianist materials [] There are Spiritual issues to be addressed Tank Officer Interventions [x] Prayer [] Active listening [] Non-anxious presence [] Spiritual/emotional support [] Crisis/trauma care [] Spiritual counseling [] Bereavement support [] Provided bereavement packet [] Provided Bible/devotional materials [] Provided toy/stuffed animal, coloring book to patient or family member [] Provided Communion [] Anointing/[place] [] Salvation [x] Completed spiritual assessment [] Other: Impact on Illness or Injury [] Angry [] Fearful [] Anxious [] Often cries [] Exhaustion [] Unable to work [] Unable to attend baptism [] Unable to walk/stand [] Unable to read [] Unable to drive [] Unable to eat/drink [] Unable to sleep [] Unable to be with family [] Patient intubated [] Other: Summary Time spent with patient
--- NOTE | 2021-01-09 12:33 | PC.NURSE ---
pt. wants second vaccine of moderna.
[2021-01-09] MEDS: D5-NS 0.45% + KCL 20 mEq 20 MEQ/1,000 ML BAG 100 MEQ IV ×2 (13:14→23:12)
[2021-01-09] MEDS: buprenorphine-naloxone 4-1 mg Film 2 EACH SUBLINGUAL ×2 (13:45→20:05)
--- NOTE | 2021-01-09 14:03 | PC.NURSE ---
1330 became somewhat anxious over not having his suboxone ordered. dr. mccarthy notified and order entered, sleeping now after getting suboxone, awakens easily.
--- NOTE | 2021-01-09 14:28 | ANE.PACU2 ---
Inpatient post-anesthesia follow up: Airway intact: Yes Vital signs: Temperature 98 F Pulse Rate [Monito r] 84 Pulse Rate 67 Respiratory Rate 16 Blood Pressure [Ri ght Arm] 122/80 Blood Pressure 102/68 Pulse Oximetry 98 Oxygen Delivery Me thod Room Air Oxygen Flow Rate Fraction of Inspir ed Oxygen Hydration adequate: Yes Nausea and vomiting: No Pain level: 2 Mental status: Baseline
[2021-01-09] MEDS: nicotine 21 mg Patch 1 PATCH TRANSDERMA (14:53)
--- NOTE | 2021-01-09 15:00 | PC.NURSE ---
discussed with pt. why did he swallow a razor blade. stated he was depressed and when pills didnt do it, thought he would try that. when questioned about why he was depressed, if anthing specific set the depression off, stated he heard voices. acknowledges he is still hearing voices and still feels suicidal. wonders why he isnt in npu, explained we needed to make sure he was doing ok.
--- NOTE | 2021-01-09 15:33 | PC.NURSE ---
requested sandwich. sandwich pudding and a drink given.
--- NOTE | 2021-01-09 15:48 | PC.NURSE ---
states he is having anxiety, a little restless, watching tv. questioned if tv show or me sitting in room was making him anxious and he denies that.
--- NOTE | 2021-01-09 15:58 | PC.NURSE ---
awake now. channel surfing.
--- NOTE | 2021-01-09 19:17 | PC.NURSE ---
SHIFT REPORT: SHIFT REPORT FROM ROBBY GAMINO. PT EASILY AROUSED-- AAOX4 AND ABLE TO VERBALIZE NEEDS. DENIES SI/HI/VH/AH AT THIS TIME. IVF INFUSING ORDERED-- IV SITE PATENT, C/D/I. HR 66, R 17, T 97.9, BP 99/72 NO BLOODY SHOW IN ORAL CAVITY, NO BLOODY VOMIT, NO BLOODY OR TARRY STOOL, BOWEL SOUNDS HYPOACTIVE, PT DENIES ABD PAIN. NURSE REMAINS AT BEDSIDE FOR OBSERVATION.
--- NOTE | 2021-01-09 20:52 | PC.NURSE ---
PIV INSERTION PT REMOVED PIV WHILE SLEEPING. LIAM MEDINA PLACED NEW #20 PIV TO R WRIST-- FLUSHED WITH GOOD BLOOD RETURN. IVF INFUSING ORDERED.
[2021-01-10] VITALS (25 sets, daily range): BP systolic 88–111; BP diastolic 47–79; PULSE 62–75; RESP 14–21; TEMP 36–36.7; O2SAT 91–97; BMI 29.6
--- NOTE | 2021-01-10 02:02 | PC.NURSE ---
REASSESSMENT: PT EASILY AROUSED-- AAOX4 AND ABLE TO VERBALIZE NEEDS. DENIES HI, BUT C/O SI AND AH AT THIS TIME. IVF INFUSING ORDERED-- IV SITE PATENT, C/D/I. HR 67, BP 98/67. NO BLOODY SHOW IN ORAL CAVITY, NO BLOODY VOMIT, NO BLOODY OR TARRY STOOL, BOWEL SOUNDS ACTIVE, PT DENIES ABD PAIN. NURSE REMAINS AT BEDSIDE FOR OBSERVATION.
[2021-01-10 04:53] LABS: Basophils % 0.3 %; Eosinophils # 0.2 10^3/uL (0.0-0.8); Hematocrit 44.9 % (42.0-52.0); Hemoglobin 14.9 g/dL (11.7-16.6); Lymphocytes # 1.8 10^3/uL (0.8-4.8); Lymphocytes % 26.1 %; Mean Corpuscular HGB Conc 33.2 g/dL (30.0-36.0); Mean Corpuscular Hemoglobin 28.9 pg (28.0-34.0); Mean Corpuscular Volume 87.2 fl (80-94); Mean Platelet Volume 11.3 fL (7.4-10.4); Monocytes # 0.5 10^3/uL (0.2-0.9); Monocytes % 7.5 %; Neutrophils # 4.42 10^3/uL (1.8-7.7); Nucleated Red Blood Cells % 0 %; Platelet Count 221 10^3/cmm (130-400); Red Blood Count 5.15 10^6/uL (4.1-5.3); Red Cell Distribution Width 13.2 % (12.1-15.1)
[2021-01-10 05:26] LABS: Alanine Aminotransferase < 5 U/L (0-41); Albumin Level 4.1 g/dL (3.5-5.2); Alkaline Phosphatase 77 IU/L (40-130); Anion Gap 14.2 (5-19); Aspartate Amino Transferase 9 U/L (0-40); Blood Urea Nitrogen 8 mg/dL (6-20); Carbon Dioxide 23 mmol/L (22-29); Chloride 108 mmol/L (98-107); Globulin 2.3 g/dL (1.3-4.6); Glomerular Filtration Rate 152.4 mL/min (90-130); Glucose 96 mg/dL (65-115); Osmolality Calculated 290 mOsm/kg (285-295); Potassium 4.2 mmol/L (3.5-5.1); Sodium 141 mmol/L (136-145); Total Bilirubin 0.5 mg/dL (0.15-1.2); Total Protein 6.4 g/dL (6.6-8.7)
--- NOTE | 2021-01-10 06:38 | P.HP_ITS ---
Providers/Chief Complaint Admitting Physician: Christopher Decker Chief Complaint: SI - STATES ATTEMPT MADE HPI NPU History of Present Illness Shayan Dickson is a 35 year old male who presented to the emergency department with the following report: Chief Complaint: Overdose Stated Complaint: SI - STATES ATTEMPT MADE Time Seen by Provider: 01/09/21 06:58 History of Present Illness: HPI Narrative: 35-year-old male presents emergency room states he took 30 Ambien last night 10 mg tablets note for 5:00 this morning took 66 mg tablets of Invega. He did not feel like it was effective in his attempts to kill himself so he then ingested a razor blade that he had been using to try to cut his left wrist there is superficial abrasions on the left wrist. Denies any hematemesis coffee-ground emesis he has presented to our emergency room in the past with ingestion of razor blades. MD complaint: intentional overdose Onset (ago): hour(s). He was admitted to the hospital for definitive treatment of those issues which included going to the OR and getting the razor cartridge removed which has been a behavior he has done for multiple times without known him since 2019 and tablets of medications were also removed during that ER visit. He was then monitored in the ICU and then transferred to the neuropsychiatric unit for definitive treatment of those issues. Today he presents with very limited historical information and is not really interested in speaking to me today. He had no clear reasoning behind his behavior at this point but also was very resistant to the conversation. We discussed the plan to hold his medications at least for the next day or so until we see how he responds to the over dosing of those medications and agreed that we would go from there. An excerpt of his last hospitalization which occurred in November is included below for context. Per his 12/17/2020 [facility] inpatient psychiatric evaluation: History of Present Illness Shayan Dickson is a 35 year old male who presented to the ED with the following report: Chief Complaint: Psychiatric Symptoms Stated Complaint: SI Time Seen by Provider: 12/16/20 08:45 History of Present Illness: HPI Narrative: 35-year-old male presents emergency room stating take 80 tablets of aspirin last night around 2 PM yesterday which makes it about 20 hours ago. He took some other pills along with that that were not labeled. He does state he was trying to kill himself. He states he had auditory hallucinations of voices telling him to kill himself. He has not had any hematemesis or coffee-ground emesis no hematochezia no m logan. He denies any dysuria urgency or frequency. He has tried to harm himself in the past. Evidently this was precipitated by some relationship issues. MD complaint: suicidal ideation and feels depressed Duration: constant History of same: Yes Relieving factors: none Exacerbating factors: none Context: not taking psychiatric medications and significant life stressor Associated psychiatric symptoms: depression, suicidal ideation, auditory hallucinations and visual hallucinations Associated symptoms: Reports auditory hallucinations, depression and suicidal ideation; Deny visual hallucinations, delusions, homicidal ideation or racing thoughts Treatments prior to arrival: none If self harm: admits thoughts of self harm, has plan and has acted on plan. Agreed to the neuropsychiatric unit for definitive treatment of those issues. Patient is well-known to this medical writer and to the unit from multiple hospitalizations with the last one being in August of this year. Excerpt of that note is included below for context and as he denies substantive changes. He does endorse however that he has not been back on his medication for reasons that he could not clarify. But he has been off of the medication and not doing as well he reports. He reports that his living arrangement is still fairly stable and he was worried that he was going continue with the suicidal thoughts he was having and so he went to come to the hospital, get restarted on his medication have his suicidality myron and get back on track overall with treatment. Part of his concern what some of the medication was helpful some of it he did not feel was. We agreed we would review his chart and try to get a sense of what direction we might go in the treatment particularly with bipolar disorder. Per his 09/11/2020 [facility] inpatient psychiatric evaluation: History of Present Illness Shayan Dickson is a 35 year old male who presented to the emergency department with the following report: Chief Complaint: Overdose Stated Complaint: SI Time Seen by Provider: 09/10/20 10:40 History of Present Illness: HPI Narrative: Patient is a 35-year-old male who comes to the ED with SI and overdose. Patient says around 5 AM today he took approximately 120 tablets of Tylenol p.m. to kill himself. Patient has history of schizophrenia. He states that he has been suicidal in the past and that currently he is hearing voices that are telling him to kill himself. He states he has been currently taking his psych meds as prescribed but over the last week he feels like they have been helping him. This past week he is hearing the voices more and more. He denies any visual hallucinations or HI. He endorses having a little bit of nausea currently but no other symptoms. Associated symptoms: Reports auditory hallucinations and suicidal ideation; Deny visual hallucinations or homicidal ideation. He was admitted to the neuropsychiatric unit for definitive treatment of those issues. Shayan presents today reporting that he had left ear over a year ago and went down to a friend's place in another state had been doing fairly well. He reports that his uncle started having problems never brought him back. He reports that the reason why he came in was that his voices were increasing and he needed to have some treatment for that. We reviewed his medications and the different ones he had been on identify something he could try. He reports the Zyprexa has been effective for him but that at some point after he left this with him over the Thorazine and the Thorazine stopping helpful. He also was very focused on Suboxone reporting that he is been taking it and he started to have withdrawal symptoms secondary to it not being prescribed. We were able to review his records and determined that he had not had an active prescription at this time. Explained to him our policy only prescribing Suboxone to people with active prescription he had already stated he had the medication available at home but then was very elusive about having somebody bring it to substantiate his claim that he has been taking less to preserve it as he tried to get an appointment. We discussed the risk-benefit alternatives of a trial of Geodon and he understood agreed proceed as documented in his note. He denied any sub stantive changes in his psychosocial history outside [place] so an excerpt from his previous note is included below. Per his 09/17/2019 [facility] inpatient psychiatric eval: History of Present Illness Shayan Dickson is a 34 year old male Shayan presented to the emergency room reporting a decompensation and wanting to secondary to running out of his medications. His report is that he had been taking his medications as prescribed but was not allowed to peanut picker his medication secondary to something to do with his insurance, that he did not understand. He reports that the medications that had been started in his last hospitalization were working fine and he was feeling optimistic about things, continuing to go in the right direction and improve, but as he got further away from them not being able to refill his medications, he started feeling worse and worse, and now he just reports that he is fed up with life and wanting to kill himself. He was admitted to the neuro- psychiatric unit for definitive treatment of those issues. We continued his current medications and agreed to do some investigation into his medications which were discontinued secondary to availability to make sure that it is not something that will prevent that in the future as well. We agreed that if we were able to identify that it was a glitch, that we would restart those medications and if we identify that it was going to be a problem moving forward, we would attempt an alternative treatment plan. He understood and agreed to proceed as is documented in this note. We reviewed his last hospitalization record from 06-25-19 and he denied any substantive changes since that time. An excerpt of that evaluation is included below. Per his last [facility] [place] 06/[facility]/2019: HPI NPU History of Present Illness Shayan Dickson is a 34 year old male who presents today reporting that he is doing okay. He reports that his Zyprexa was discontinued, but he could give no explanation for why that was the case. We discussed his repeat behavior from October of last year which was swallowing the ends of a couple BIC razors, which had already been used, and were fairly dull in this reported suicide attempt. He could not move away from the fact that it was a real and valid attempt and not some kind of gesture. He reported that he thought that if he took those that th would slice him but to be clear these were not actual razorblades that were open. This was little plastic tops of cheap razors that had double blades in them, but they are kind of contained in the plastic so there is some risk, but not extreme risk. The surgeon went in and took them out and had them sent away for testing. We discussed the fact that he does have intellectual disability within special education classes in school, has limited functioning in that way. He continues to live with his uncle and his five dogs. He reports that he will never do this thing with the razors again. We talked about the fact that if he did in fact succeed, that his dogs would be left alone. He reported that he thought about that, but there seemed to be limited connectivity. We reviewed his most recent psychiatric evaluation here and he denied any substantive changes in the history or psychosocial circumstances. Per recent [facility] [place] 05/17/2019: HPI NPU History of Present Illness Chief complaint: the voices are so bad that I'm going to kill myself. History of present illness: Shayan Dickson is a 34 year old male who tells an undocumented fairly reasonable story of a life lived suffering auditory hallucinations to varying degrees. When he is doing well, he will hear muttering voices that do not cause him a great deal of difficulty. He states that he seldom is free of the voices. HE deons not report taking medication for this problem on a custodial or regular basis. 3 months ago, the voices began getting worse. He is has no theory as to why they have gotten worse. 3 weeks ago, they began getting intrusive to the point where he was willing to end his life just to free himself from the torture from these voices. He hears a number of different voices. He is able to interpret who they are. They are from important people in his life. These include a woman that he knows and Her boyfriend, his stepbrother and his . they Say demeaning things in a very loud manner. They tell him that he should and they tell him how he should kill himself. in spite of having struggled with during much of his life, he cannot give any guidance as to what interventions have been helpful. He said that he took lithium for a while and it was quite helpful. However it stopped working. It is noted that he was hospitalized here in October 2018 and was discharged on a combination of Subo xone, Zyprexa, and citalopram. He can give no assessment as to whether the Zyprexa helped him with his voices. He says that if the voices are reduced, he will no longr be suicidal. He is ambivalent about symptoms of depression. He says that he does not do anything enjoyable and simply passes this time when his phone and taking care of animals around his arm. He reports good sleep. He has no specific suicide plan this time. He said suicide thoughts were proceeded by the worsening of the voices. His urine drug screen is negative. He is actively taking the Suboxone and receives it from an outpatient therapist. However he has not continued his medications otherwise from discharge in October 2018. Mental health history: history of this patient was very difficult to acquire. He talks very rapidly and in the low mumbling fashion. His thoughts are mildly disorganized.he reports that originally he grew up in [place] and that at one point he left a rehabilitation program there and moved to [place]. He was only in [place] for 3 months when there were some financial difficulties and he came to the [facility] in 2010. He gives no further history regarding mental health care. It is noted that he can give no advisement regarding any other medication trials that have had any effect positive for negative on his auditory hallucinations. notes from his admission to this unit in October 2018: 11/13/2018 Shayan presents today reporting that the situation with his razor blade centered around his loss of his fianc?e. He reports that his significant other had committed suicide about 3 days shy of 2 years of when he made this suicide attempt before admission. He reports that he was feeling very low without feeling a clear sense of relief. And he had read online that he swallowed a razor blade that it would go through certain parts and because it was internal organs you would not feel it as it was slicing through things and that he would bleed out in his sleep. He reports that when he woke up and was alive but had a rectal bleeding he got really anxious and that when he came to the hospital. He is passed the razor blade now and at this point he reports that he is feeling better and more optimistic. With his first day on the psychiatric unit we discussed the fact that we needed to observe him for a couple of days to get a sense of where he really is prior to being comfortable with discharge. We had filed a 21-day hold paperwork but were able to negotiate and get an agreement that he will work with us over the next few days with a plan for discharge at the beginning of the week. Hospital Course: Shayan presented to the unit after being in the ICU and followed by surgery secondary to the ingestion of a razor blade or at least razor blade containing item from the head of a razor. After being followed until the object had been defecated since they were unable to get it by surgical means he was transferred to the NPU. After he woke up alive he reports that he got himself to the hospital for help and reports that he did not have any lethality after awaking and felt a desire to get help and not continue with self-injurious suicidal behaviors. So after a few days in the ICU he spent a few days in the NPU where he was observed and each day denied any lethality and a desire to go home and continue with his life. His medications were continued. Once he got to the NPU he acclimated to the individual, group and milieu therapies. While he was in the hospital he had routine laboratory studies which were within normal limits except for a few outliers. Those can be seen below. He also had a general medical evaluation this was within normal limits and revealed no acute processes except for the issue with the intentional ingestion. At the time of discharge his mood had improved, his lethality had resolved and he was sleeping better. He endorsed the plan to take his medication as prescribed, continue with his recovery oriented outpatient treatments and abstain from drugs of abuse as well as self-injurious and suicidal behaviors. He had obtained all the benefits he could get from the inpatient unit so he was discharged. Social history:the patient is currently supporting himself through his disability payments. He lives with uncle who apparently has a farm. He spends much of his time helping his uncle with daily activities around the farm such as feeding animals and taking care of the general grounds. He engages in no enjoyable activities and largely spends his time playing on his phone. His uncle apparently is advanced in age and is concerned about Shayan's well-being as the uncle's health declines. Shayan's uncle has advised him to go to a rehabilitation program and get off the Suboxone so that eventually he can be placed in a halfway or residential care facility. Legal history:there is no history in the [place] public record of incarcerations or felony arrests. Past medical history: Allergies Escitalopram. NSAIDS (NON-STEROIDAL ANTI-INFLAMMA. Venlafaxine. SOCIAL HX: Heavy tobacco smoker (cigarette)- 1 pack per day. No alcohol use or drug use. No recent travel. PROBLEMS: Ulcerative Colitis. GI Bleeding. Depression. Bipolar Disorder. Colitis. ADDITIONAL SURGERIES: Appendectomy. . Mental Status Exam: the patient is an alert interpersonally engaged male. He is believed to be a reliable informant to the best of his ability as information that is provided is internally consistent and consistent with that in the chart. Appearance: hygiene is fair; no gross neurological deficits., gait is unremarkable; AIMS=0 Speech: Speech is she is rapid with indistinct enunciation with frequently makes some of the information difficult to assess. Thought processes: Thought processes are abstract. Judgment is adequate for safety. Associations: intact Psychotic processes: There is no indication of guarding or paranoia. There is no attention to the internal stimuli. auditory hallucinations are reported as above. He denied the presence of visual hallucinations. Judgment: Insight is good. Problem solving skills are adequate for safety. Orientation: The patient is oriented to person, place time and situation. Memory: no deficits noted in immediate, intermediate, or remote spheres. Attention: The patient is alert and interpersonally engaged. Language: Verbalizations are coherent. Fund of knowledge: Fund of knowledge is adequate. Affect/Mood: Affect is consistent with a depressed mood. he reported vague suicidal ideation without intent or plan. Affective range good Psychosis: perception unimpaired despite intrusive auditory hallucinations that he is experiencing.; reality testing intact. Diagnoses: schizophrenia?undifferentiated, acute Assessment:this is a difficult situation given that he has a long-standing history of schizophrenia but can give no feedback as to what medications have been tried without any success in the past. At this point, we will continue the Zyprexa 20 mg at bedtime and also provide when necessary dosing during the day with Geodon as needed for auditory hallucinations. He will continue with Suboxone and the Celexa. We will discuss the feasibility of placement in a rehabilitation program with social security specialist. If this is a reasonable possibility, tapering some from Suboxone will be discussed. Meds NPU Home Medications Medication Instructions Recorded Confirmed Last Taken Type paliperidone 6 mg PO DAILY 30 Days #30 tab 12/19/20 01/09/21 Unknown Rx zolpidem 10 mg PO BEDTIME 30 Days #60 tab 12/19/20 01/09/21 Unknown Rx buprenorphine-naloxone 1 film SUBLINGUAL BID 01/09/21 01/09/21 Unknown History Allergies Allergy/AdvReac Type Severity Reaction Status Date / Time mushroom Allergy Unknown Unknown Verified 01/09/21 08:19 escitalopram [From Lexapro] Allergy ALGY-Anaphy Verified 01/09/21 08:19 laxis NSAIDS (Non-Steroidal Allergy ADR-Abdominal Verified 01/09/21 08:19 Anti-Inflamma Pain venlafaxine [From Effexor] Allergy ALGY-Anaphy Verified 01/09/21 08:19 laxis PFSH NPU PFSH: Medical History (Updated 01/09/21 @ 10:11 by Mich Madera MD) Opiate misuse Schizophrenia Suicide attempt Ulcerative colitis Surgical History History of appendectomy Social History (Updated 01/09/21 @ 10:11 by Mich Madera MD) Smoking and tobacco status: current every day smoker Alcohol intake: never Mental Status Exam MSE Comments: Weight versus obese white male in hospital scrubs with limited grooming and eye contact. No abnormal movements except psychomotor retardation mostly uncooperative with exam in mild distress. Speech was limited and decreased rate and volume. Mood described as tired, affect congruent. Thought process linear. Thought content: Patient did not respond to questions about lethality but is here secondary to intentional overdose, no aggression towards others noted no delusions reported or noted, no auditory visualizations reported. Attention and concentration were impaired and was unreliable but none were formally tested. He is alert and oriented to person. Insight and judgment are impaired, impulse control is impaired. Vitals/I&O/Wt Last Vital Signs Temp 97.5 F L 01/10/21 00:00 Pulse 68 01/10/21 06:00 Resp 17 01/10/21 06:00 BP 90/51 01/10/21 06:00 Pulse Ox 97 01/10/21 05:00 01/09/21 01/09/21 01/10/21 14:59 22:59 06:59 Intake Total 900 / 900 720 / 1620 996.667 / 2616.667 Output Total 0 / 0 Balance 900 / 900 719 / 1619 996.667 / 2615.667 Weight last 48 hrs Weight 96.479 kg Weight 97.477 kg Weight 81.647 kg Data NPU : 01/10/21 03:47 01/10/21 03:47 A&P Assessment and plan (1) Suicide attempt: Status: Acute (2) Foreign body ingestion: Status: Acute (3) Psychosis: Status: Acute (4) Drug overdose: Status: Acute (5) Cluster B personality disorder: Status: Acute (6) Bipolar depression: Status: Acute Additional A&P Information This is a 35-year-old white male with a long history of psychosis, rapid nodular, intentional ingestions of objects as well as drugs who presents after an overdose and ingestion endorsing suicidality. 1. Continue current medication. 2. Continue every 15 minute checks for safety. 3. Encourage individual, group and milieu therapies. 4. Encourage sober living treatment after discharge at the highest level of care to which he is willing to commit. Involuntary Hold Information 96 Hour Hold: 96 Hour Involuntary Admission: No 96 Hour Hold Ending Date: 09/16/20 96 Hour Hold Ending Time: 11:45 Attestations NPU Medical Necessity Statement*: Inpatient hospitalization is medically necessary and the clinically appropriate intervention at this time. We will monitor medications and make changes as indicated. Patient will be in the hospital for over two midnights. Likely length of stay 4-6 days. Coding Level of Care Code Acute Lead Pastor for [employer] Diagnoses Suicide attempt T14.91XA Foreign body ingestion T18.9XXA Psychosis F29 Drug overdose T50.901A Cluster B personality disorder F60.89 Bipolar depression F31.9
--- NOTE | 2021-01-10 06:53 | PC.NURSE ---
recd. sleeping. no distress noted.
--- NOTE | 2021-01-10 07:47 | PC.NURSE ---
h.o.b. up for breakfast. moist cough.
[2021-01-10] MEDS: nicotine 21 mg Patch 1 PATCH TRANSDERMA (08:36)
[2021-01-10] MEDS: buprenorphine-naloxone 4-1 mg Film 2 EACH SUBLINGUAL (08:37)
--- NOTE | 2021-01-10 09:37 | PC.NURSE ---
ambulated to bathroom, voided. supplies for bath, declined at this time.
--- NOTE | 2021-01-10 10:07 | PC.NURSE ---
an uncle Ed. called for 2nd. time this am to check on Jan. requesting DrCesar call him. sounds very concerned about Jan and wondering what happens that he does this according to uncle approx. 1 year ago he was in this facility on some medication that helped, according to the uncle, with the voices. wishes he could be on that again and doesnt understand why it was changed.
--- NOTE | 2021-01-10 10:16 | PC.NURSE ---
dr. michaels in. will consult dr. romero.
--- NOTE | 2021-01-10 10:51 | PC.NURSE ---
dr. michaels in. pt. has some abd. tenderness to right quad. was that way yesterday. #7 on 0-10 scale. has not made in c/o of it until asked.
--- NOTE | 2021-01-10 11:00 | PM.PN ---
Subjective Subjective: Interval history: No acute events overnight.Vitals and labs have been stable.Complaining of some mild generalized abdominal pain.Tolerating diet well. Medications: Reviewed: Yes Vitals/I&O/Wt Last Vital Signs Temp 98.1 F 01/10/21 07:30 Pulse 69 01/10/21 10:00 Resp 17 01/10/21 10:00 BP 103/50 01/10/21 10:00 Pulse Ox 91 01/10/21 10:00 01/09/21 01/10/21 01/10/21 22:59 06:59 14:59 Intake Total 720 / 1620 996.667 / 2616.667 240 / 240 Output Total Balance 719 / 1619 996.667 / 2615.667 240 / 240 Weight last 48 hrs Weight 96.479 kg Weight 97.477 kg Weight 81.647 kg Physical Exam Const: COMMON NORMALS: patient oriented x3 HENMT: COMMON NORMALS: normocephalic and atraumatic HEAD & SCALP: normocephalic and atraumatic Resp: COMMON NORMALS: clear to auscultation bilaterally EFFORT & INSPECTION: Yes symmetric chest movement AUSCULTATION: clear to auscultation bilaterally Cardio: COMMON NORMALS: regular rate, regular rhythm, S1 normal heart sound present, S2 normal heart sound present, No gallops present (Cardio), No murmurs present (Cardio), No rub (Cardio) and Peripheral pulses 2+ throughout RATE: regular rate RHYTHM: regular rhythm HEART SOUNDS: S1 normal heart sound present and S2 normal heart sound present PERIPHERAL PULSES: Peripheral pulses 2+ throughout GI: COMMON NORMALS: Normal to inspection, nondistended, normoactive bowel sounds present, Soft to palpation, non-tender, No hepatosplenomegaly present and no masses AUSCULTATION: Yes normoactive bowel sounds PALPATION: Yes Soft to palpation and Yes No hepatosplenomegaly present RECTAL EXAM: Yes deferred Extremity: COMMON NORMALS: no clubbing, cyanosis or edema and no pedal edema Neuro: COMMON NORMALS: patient oriented x3 Data : 01/10/21 03:47 01/10/21 03:47 A&P Assessment and plan (1) Suicide attempt: On 96-hour hold For SI Originally took Ambien last night. Took Invega, large number of pills this morning Initially Monitored in ICU Psychiatric consultation appreciated Medically stable, for transfer to psychiatry Status: Acute (2) Foreign body ingestion: Surgery removed removed a razor blade along with 22 pills of Invega Status: Acute Additional A&P Information Severe depression, history of schizophrenia. Psychiatry to see. History of ulcerative colitis. Patient reports he is on no medications. Diagnosis is not confirmed. Full code Low risk for DVT. No prophylaxis. Attestations Medical Necessity Statement*: On 96hrs hold. 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
--- NOTE | 2021-01-10 11:10 | PC.NURSE ---
during dr. michaels assessment, note made by him of what appears to be an attempt to cut himself and pt. acknowledges such, and thatit was done around same time he swallowed razor cartridge.
--- NOTE | 2021-01-10 11:20 | PC.NURSE ---
20 ga. jelco removed from right wrist area, appears to be intact. refused wash up this am.
--- NOTE | 2021-01-10 11:22 | PC.NURSE ---
transferred to npu per w/c with security by side.
[2021-01-10] MEDS: loperamide 2 mg Capsule PO (15:32)
[2021-01-10] MEDS: hyDROXYzine 25 mg Capsule 50 MG PO (16:55)
[2021-01-11 05:57] VITALS: BMI 29.6
[2021-01-11 06:00] VITALS: BP 98/56; PULSE 105; RESP 17; TEMP 36.8; O2SAT 96
[2021-01-11] MEDS: buprenorphine-naloxone 4-1 mg Film 2 EACH SUBLINGUAL ×2 (09:52→21:09)
[2021-01-11] MEDS: nicotine 2 mg Gum BUCCAL ×2 (09:53→16:10)
[2021-01-11] MEDS: hyDROXYzine 25 mg Capsule 50 MG PO ×2 (12:21→21:09)
[2021-01-11] MEDS: loperamide 2 mg Capsule PO (12:21)
--- NOTE | 2021-01-11 13:30 | P.PN_ITS ---
Subjective NPU Subjective: Interval history: Shayan presents today reporting that he is feeling a little better from a nausea and upset stomach standpoint. He reports that he doesn't feel the Invega was very helpful and he was tired of hearing voices. We discussed him having tried multiple medications. But he does not recall whether Geodon was ever allowed to get an appropriate dose. He once again acknowledged that Abilify was not helpful and definitely made it feel worse. Mental Status Exam MSE Comments: This is an overweight versus obese white male in hospital scrubs with limited grooming and eye contact. No abnormal movements except psychomotor retardation. Cooperative with exam in mild distress. Speech was limited and decreased rate and volume. Mood described as tired, affect congruent. Thought process linear. Thought content: Patient denied homicidal ideation the stated that his suicidal ideation was improving, no delusions reported or noted, no auditory visualizations reported. Attention and concentration were impaired and was unreliable but none were formally tested. He is alert and oriented to person. Insight and judgment are impaired, impulse control is impaired. Vitals/I&O/Wt Last Vital Signs Temp 98.3 F 01/11/21 06:00 Pulse 105 H 01/11/21 06:00 Resp 17 01/11/21 06:00 BP 98/56 01/11/21 06:00 Pulse Ox 96 01/11/21 06:00 01/10/21 01/11/21 01/11/21 22:59 06:59 14:59 Intake Total 240 / 480 Balance 240 / 480 Weight last 48 hrs Weight 96.479 kg Weight 96.479 kg Weight 96.479 kg Weight 97.477 kg Data NPU : 01/10/21 03:47 01/10/21 03:47 A&P Additional A&P Information (1) Suicide attempt: (2) Foreign body ingestion: (3) Psychosis: (4) Drug overdose: (5) Cluster B personality disorder: (6) Bipolar depression: Additional A&P Information This is a 35-year-old white male with a long history of psychosis, rapid nodular, intentional ingestions of objects as well as drugs who presents after an overdose and ingestion endorsing suicidality. 1. Continue current medication. We will start Geodon 40 mg p.o. twice daily with meals. 2. Continue every 15 minute checks for safety. 3. Encourage individual, group and milieu therapies. 4. Encourage sober living treatment after discharge at the highest level of care to which he is willing to commit. Involuntary Hold Information 96 Hour Hold: 96 Hour Involuntary Admission: No 96 Hour Hold Ending Date: 09/16/20 96 Hour Hold Ending Time: 11:45 Attestations NPU Medical Necessity Statement*: Inpatient hospitalization is medically necessary and the clinically appropriate intervention at this time. We will monitor medications and make changes as indicated.Likely length of stay 3-5 days. 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
[2021-01-11 14:00] VITALS: BP 94/60; PULSE 68; RESP 14; TEMP 36.8; O2SAT 95
[2021-01-11 20:10] VITALS: BP 98/54; PULSE 63; RESP 18; TEMP 36.6; O2SAT 97
[2021-01-11] MEDS: trazodone 50 mg Tablet PO (21:09)
--- NOTE | 2021-01-11 21:10 | PC.NURSE ---
pt requested sleep and anxiety meds. trazodone 50mg po for sleep and vistril 50mg po for anxiety given.
--- NOTE | 2021-01-11 23:00 | PC.NURSE ---
pt resting quietly with both eyes closed
--- NOTE | 2021-01-12 01:51 | PC.NURSE ---
PM Assessment Pt denies pain, denies WEBB/VH, Denies HI, Endorses SI, contracts for safety. No plan indicated. Pt is anxious, Vistaril 50mg PO given, and medication to help pt rest may be indicated at bedtime. Pt offered a shower, snack, and he refused a shower this evening. Pt will want to bathe in the morning. Pt is currently resting in his room.
[2021-01-12 06:00] VITALS: BP 95/53; PULSE 79; RESP 19; TEMP 36.6; O2SAT 97
[2021-01-12] MEDS: ziprasidone hcl 40 mg Capsule PO ×2 (06:40→16:32)
[2021-01-12] MEDS: buprenorphine-naloxone 4-1 mg Film 2 EACH SUBLINGUAL ×2 (08:01→20:32)
[2021-01-12] MEDS: nicotine 2 mg Gum BUCCAL ×3 (10:24→17:55)
--- NOTE | 2021-01-12 11:02 | NPU.GN ---
[facility] Topic:Dice Breaker General Mood of Group: Shayan did not attend group today he was sleeping.
[2021-01-12 14:00] VITALS: BP 103/70; PULSE 60; RESP 16; TEMP 36.5; O2SAT 97
[2021-01-12] MEDS: hyDROXYzine 25 mg Capsule 50 MG PO ×2 (14:09→20:33)
--- NOTE | 2021-01-12 14:10 | PC.NURSE ---
Addendum entered by Justine Colmenares LPN 01/12/21 16:01: prn med not yet effective pt cont to ask for PRN medication, stated his hallucinations were acting up Original Note: PRN VISTARIL 50 MG GIVEN PO PER PT C/O STATED ANXIETY
[2021-01-12] MEDS: OLANZapine 5 mg ODT PO (16:32)
--- NOTE | 2021-01-12 16:32 | PC.NURSE ---
PRN ZYPREXA ZYDIS 5 MG GIVEN PO PER PT REQUEST OF HALLUCINATION MEDICATION STATED HIS HALLUCINATIONS WERE REALLY ACTING UP PT WAS ABLE TO VISIT CALMLY ON THE PHONE WITH FAMILY MEMBER PREVIOUSLY. WILL CONT TO MONITOR
--- NOTE | 2021-01-12 16:33 | P.PN_ITS ---
Subjective NPU Subjective: Interval history: Patient denies any problematic issues from the initiation of the Geodon but continues to endorse hearing voices and struggling with sleep. We agreed we would await how he does with Kalyn mitchell. But he is somewhat desirous of restarting his Ambien which he reports he did not take any of them this suicide attempt. We agreed we would evaluate the validity of that report. We discussed taking this a day at a time given his frequent visits and often complicated presentations. Mental Status Exam MSE Comments: This is an overweight versus obese white male in hospital scrubs with limited grooming and eye contact. No abnormal movements except psychomotor retardation. Cooperative with exam in mild distress. Speech was limited and decreased rate and volume. Mood described as okay, affect still subdued. Thought process linear. Thought content: Patient denied homicidal ideation the stated that his suicidal ideation was improving, no delusions reported or noted, he is endorsing auditory hallucinations but no visual hallucinations reported. Attention and concentration were improving and memory was unreliable but none were formally tested. He is alert and oriented x3. Insight and judgment are impaired, impulse control is impaired. Vitals/I&O/Wt Last Vital Signs Temp 97.7 F 01/12/21 14:00 Pulse 60 01/12/21 14:00 Resp 16 01/12/21 14:00 BP 103/70 01/12/21 14:00 Pulse Ox 97 01/12/21 14:00 Weight last 48 hrs Weight 96.479 kg Data NPU : 01/10/21 03:47 01/10/21 03:47 A&P Additional A&P Information (1) Suicide attempt: (2) Foreign body ingestion: (3) Psychosis: (4) Drug overdose: (5) Cluster B personality disorder: (6) Bipolar depression: Additional A&P Information This is a 35-year-old white male with a long history of psychosis, rapid nodular, intentional ingestions of objects as well as drugs who presents after an overdose and ingestion endorsing suicidality. 1. Continue current medication. We will evaluate whether he did take any Ambien and whether that is safe for continuation. 2. Continue every 15 minute checks for safety. 3. Encourage individual, group and milieu therapies. 4. Encourage sober living treatment after discharge at the highest level of care to which he is willing to commit. Involuntary Hold Information 96 Hour Hold: 96 Hour Involuntary Admission: No 96 Hour Hold Ending Date: 09/16/20 96 Hour Hold Ending Time: 11:45 Attestations NPU Medical Necessity Statement*: Inpatient hospitalization is medically necessary and the clinically appropriate intervention at this time. We will monitor medications and make changes as indicated. Likely length of stay 2-4 days. 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
[2021-01-12 20:05] VITALS: BP 93/53; PULSE 66; RESP 18; TEMP 36.8; O2SAT 95
[2021-01-12] MEDS: trazodone 50 mg Tablet PO (20:33)
[2021-01-13 06:00] VITALS: BP 98/59; PULSE 57; RESP 19; TEMP 36.5; O2SAT 95
[2021-01-13] MEDS: ziprasidone hcl 40 mg Capsule PO ×2 (06:49→15:50)
[2021-01-13] MEDS: OLANZapine 5 mg ODT PO (07:47)
--- NOTE | 2021-01-13 07:51 | PC.NURSE ---
PATIENT COMPLAINING OF INCREASED AUDITORY HALLUCINATIONS, REPORTS THEY ARE NOT COMMAND, DENIES ANY SI OR HI, REQUESTS PRN MEDICATION. MEDICATED WITH ZYPREXA ZYDIS 5MG PER PRN ORDERS.
[2021-01-13] MEDS: buprenorphine-naloxone 4-1 mg Film 2 EACH SUBLINGUAL (08:38)
[2021-01-13] MEDS: nicotine 2 mg Gum BUCCAL ×4 (10:11→19:28)
--- NOTE | 2021-01-13 11:43 | NPU.GN ---
[facility] Topic: Elaine General Mood of Group: Shayan attending group and was participating in group and talkative with others and this documentation writer.
[2021-01-13] MEDS: hyDROXYzine 25 mg Capsule 50 MG PO ×2 (13:07→20:38)
--- NOTE | 2021-01-13 13:08 | PC.NURSE ---
PRN VISTARIL 50 MG GIVEN PO PER PT C/O STATED ANXIETY. NO OUTWARD S/S OF ANXIETY NOTED.
[2021-01-13 14:00] VITALS: BP 106/63; PULSE 69; RESP 16; TEMP 36.3; O2SAT 96
[2021-01-13] MEDS: sertraline 50 mg Tablet PO (15:03)
[2021-01-13] MEDS: propranolol 20 mg Tablet PO (15:03)
--- NOTE | 2021-01-13 15:04 | PC.NURSE ---
PRN INDERAL 20 MG GIVEN PO PER PT C/O STATED ANXIETY
--- NOTE | 2021-01-13 19:06 | P.PN_ITS ---
Subjective NPU Subjective: Interval history: Patient continues to have some struggles with his situation. He expressed concerns about his Ambien which we cannot confirm where the pills are and his Suboxone was the last time he was here he was not on and we cannot confirm an active prescription at this point so concerns continue to arise as to what may have driven this recent behavior. Mental Status Exam MSE Comments: This is an overweight versus obese white male in hospital scrubs with limited grooming and eye contact. No abnormal movements except psychomotor retardation. Cooperative with exam in no acute distress. Speech was limited and decreased rate and volume. Mood described as okay, affect still subdued. Thought process linear. Thought content: Patient denied homicidal ideation the stated that his suicidal ideation was resolving, no delusions reported or noted, he is endorsing auditory hallucinations but no visual hallucinations reported. Attention and concentration were improving and memory was unreliable but none were formally tested. He is alert and oriented x3. Insight and judgment are impaired, impulse control is impaired. Vitals/I&O/Wt Last Vital Signs Temp 98.8 F 01/13/21 20:37 Pulse 62 01/13/21 20:37 Resp 17 01/13/21 20:37 BP 102/70 01/13/21 20:37 Pulse Ox 97 01/13/21 20:37 01/13/21 01/13/21 01/14/21 14:59 22:59 06:59 Intake Total 1000 / 1000 Balance 1000 / 1000 Data NPU : 01/10/21 03:47 01/10/21 03:47 A&P Additional A&P Information (1) Suicide attempt: (2) Foreign body ingestion: (3) Psychosis: (4) Drug overdose: (5) Cluster B personality disorder: (6) Bipolar depression: Additional A&P Information This is a 35-year-old white male with a long history of psychosis, rapid nodular, intentional ingestions of objects as well as drugs who presents after an overdose and ingestion endorsing suicidality. 1. Continue current medication. We will evaluate whether he did take any Ambien and whether that is safe for continuation, as well as the status of his Suboxone prescription.. 2. Continue every 15 minute checks for safety. 3. Encourage individual, group and milieu therapies. 4. Encourage sober living treatment after discharge at the highest level of care to which he is willing to commit. Involuntary Hold Information 96 Hour Hold: 96 Hour Involuntary Admission: No 96 Hour Hold Ending Date: 09/16/20 96 Hour Hold Ending Time: 11:45 Attestations NPU Medical Necessity Statement*: Inpatient hospitalization is medically necessary and the clinically appropriate intervention at this time. We will monitor medications and make changes as indicated. Likely length of stay 2-4 days. 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
[2021-01-13 20:37] VITALS: BP 102/70; PULSE 62; RESP 17; TEMP 37.1; O2SAT 97
[2021-01-13] MEDS: trazodone 50 mg Tablet PO (20:38)
[2021-01-13] MEDS: haloperidol 5 mg Tablet PO (20:38)
[2021-01-13] MEDS: LORazepam 2 mg/mL INJ 1 mL IM (21:36)
[2021-01-13] MEDS: haloperidol inj 5 mg/mL INJ 1 mL IM (21:36)
[2021-01-13] MEDS: diphenhydrAMINE 50 mg/mL SDV 1mL IM (21:36)
[2021-01-14] MEDS: propranolol 20 mg Tablet PO ×2 (00:07→15:05)
[2021-01-14] MEDS: loperamide 2 mg Capsule PO ×3 (05:13→18:15)
[2021-01-14] MEDS: ziprasidone hcl 40 mg Capsule PO ×2 (05:21→17:32)
[2021-01-14 06:00] VITALS: BP 82/56; PULSE 56; RESP 16; TEMP 36.6; O2SAT 96
[2021-01-14] MEDS: sertraline 50 mg Tablet PO (09:23)
[2021-01-14] MEDS: nicotine 2 mg Gum BUCCAL ×4 (09:23→21:22)
--- NOTE | 2021-01-14 10:27 | P.PN_ITS ---
Subjective NPU Subjective: Interval history: Patient presents today continuing to have some obsessive thinking about which medication and the circumstances under which he has had certain medications. We discussed the fact that the only way we could restart his device was if he were to get an outside provider to identify they would continue the medication. We discussed the possibility of considering it for pain management which is generally not how it is utilized. We continue to discuss the Ambien and concerns that it may have been part of his present. We discussed the fact that 21 day hold paperwork would likely be submitted. Mental Status Exam MSE Comments: This is an overweight versus obese white male in hospital scrubs with limited grooming and eye contact. No abnormal movements except psychomotor retardation. Cooperative with exam in no acute distress. Speech was limited and decreased rate and volume. Mood described as a little better, affect still subdued. Thought process linear. Thought content: Patient denied homicidal ideation the stated that his suicidal ideation was resolving, no delusions reported or noted, he is endorsing auditory hallucinations but no visual marianne lucinations reported. Attention and concentration were improving and memory was unreliable but none were formally tested. He is alert and oriented x3. Insight and judgment are impaired, impulse control is impaired. Vitals/I&O/Wt Last Vital Signs Temp 97.8 F 01/14/21 06:00 Pulse 56 L 01/14/21 06:00 Resp 16 01/14/21 06:00 BP 82/56 01/14/21 06:00 Pulse Ox 96 01/14/21 06:00 Data NPU : 01/10/21 03:47 01/10/21 03:47 A&P Additional A&P Information (1) Suicide attempt: (2) Foreign body ingestion: (3) Psychosis: (4) Drug overdose: (5) Cluster B personality disorder: (6) Bipolar depression: Additional A&P Information This is a 35-year-old white male with a long history of psychosis, rapid nodular, intentional ingestions of objects as well as drugs who presents after an overdose and ingestion endorsing suicidality. 1. Continue current medication. We will evaluate whether he did take any Ambien and whether that is safe for continuation, as well as the status of his Suboxone prescription. 2. Continue every 15 minute checks for safety. 3. Encourage individual, group and milieu therapies. 4. Encourage sober living treatment after discharge at the highest level of care to which he is willing to commit. Involuntary Hold Information 96 Hour Hold: 96 Hour Involuntary Admission: No 96 Hour Hold Ending Date: 09/16/20 96 Hour Hold Ending Time: 11:45 Attestations NPU Medical Necessity Statement*: Inpatient hospitalization is medically necessary and the clinically appropriate intervention at this time. We will monitor medications and make changes as indicated. Likely length of stay 2-4 days. Will await 21-day hold hearing date. 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
[2021-01-14] MEDS: OLANZapine 5 mg ODT PO ×2 (11:05→20:10)
[2021-01-14] MEDS: hyDROXYzine 25 mg Capsule 50 MG PO ×2 (13:01→20:10)
[2021-01-14 14:00] VITALS: BP 109/77; PULSE 71; RESP 18; TEMP 36.1; O2SAT 92
--- NOTE | 2021-01-14 17:34 | PC.NURSE ---
Nursing staff has made several calls to track down pharmacy where the Current Suboxone Script could be or is. No Current script found.
[2021-01-14 19:55] VITALS: BP 119/74; PULSE 68; RESP 20; TEMP 36.8; O2SAT 95
[2021-01-14] MEDS: acetaminophen 325 mg Tablet 650 MG PO (20:09)
[2021-01-14] MEDS: trazodone 50 mg Tablet PO (20:12)
[2021-01-15 06:00] VITALS: BP 102/61; PULSE 57; RESP 19; TEMP 36.6; O2SAT 97
[2021-01-15] MEDS: sertraline 50 mg Tablet PO (08:48)
[2021-01-15] MEDS: ziprasidone hcl 40 mg Capsule PO ×2 (08:48→16:58)
[2021-01-15] MEDS: nicotine 2 mg Gum BUCCAL ×3 (10:23→20:17)
[2021-01-15] MEDS: loperamide 2 mg Capsule PO (10:24)
--- NOTE | 2021-01-15 12:47 | NPU.GN ---
[facility] Topic:Coping Kills Checklist General Mood of Group: Shayan did not attend group he wanted to sleep.
[2021-01-15 14:00] VITALS: BP 103/66; PULSE 71; RESP 18; TEMP 36.2; O2SAT 96
[2021-01-15] MEDS: propranolol 20 mg Tablet PO (14:41)
--- NOTE | 2021-01-15 18:43 | P.PN_ITS ---
Subjective NPU Subjective: Interval history: I discussed the patient's case with Dr. Escobar and the treatment team. He swallowed a razor cartridge and took an overdose. They have started Geodon. He wants Suboxone, which we are not able to initiate. He wants Ambien, which we do not usually prescribe for sleep. Dr. Escobar 4-year-old a 21-day hold request because of his psychosis and self-harm propensity. The patient says that his mood is been sad and he has felt like dying. He says the voices have been telling him it is not worth living and that he should kill himself. They are present all day long. They started 4 years ago. He does not think the Geodon has been helping, and is willing for me to increase the dose. He says that Thorazine 600 mg a day was helpful in the past. He does say he has difficulty sleeping, but trazodone has caused priapism and Remeron was not help ful. Mental Status Exam MSE Comments: This is an overweight versus obese white male in hospital scrubs with limited grooming and eye contact. No abnormal movements except psychomotor retardation. Cooperative with exam in no acute distress. Speech was limited and decreased rate and volume. Mood described as sad, affect is blunted and sad. Thought process linear. Thought content: Patient denied homicidal ideation. He says he still has suicidal ideation. No delusions reported or noted. He is end orsing auditory hallucinations but no visual hallucinations reported. Attention and concentration were improving and memory was unreliable but none were formally tested. He is alert and oriented x3. Insight and judgment are impaired, impulse control is impaired. Vitals/I&O/Wt Last Vital Signs Temp 97.2 F L 01/15/21 14:00 Pulse 71 01/15/21 14:00 Resp 18 01/15/21 14:00 BP 103/66 01/15/21 14:00 Pulse Ox 96 01/15/21 14:00 01/15/21 01/15/21 01/15/21 06:59 14:59 22:59 Intake Total 240 / 240 Balance 240 / 240 Data NPU : 01/10/21 03:47 01/10/21 03:47 A&P Assessment and plan (1) Suicide attempt: Status: Acute (2) Foreign body ingestion: Status: Acute (3) Psychosis: Status: Acute (4) Drug overdose: Status: Acute (5) Cluster B personality disorder: Status: Acute (6) Bipolar depression: Status: Acute Additional A&P Information This is a 35-year-old white male with a long history of psychosis, rapid nodular, intentional ingestions of objects as well as drugs who presents after an overdose and ingestion endorsing suicidality. 1. Continue current medication. We will increase Geodon to 40 mg in the morning and 60 mg at bedtime. 2. Continue every 15 minute checks for safety. 3. Encourage individual, group and milieu therapies. 4. Encourage sober living treatment after discharge at the highest level of care to which he is willing to commit. Involuntary Hold Information 96 Hour Hold: 96 Hour Involuntary Admission: No 96 Hour Hold Ending Date: 0 09/16/20 96 Hour Hold Ending Time: 11:45 Attestations NPU Medical Necessity Statement*: Inpatient hospitalization is medically necessary and the clinically appropriate intervention at this time. We will monitor medications and make changes as indicated. Likely length of stay 4-6 days. Will await 21-day hold hearing date. 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
[2021-01-15 20:06] VITALS: BP 104/76; PULSE 72; RESP 18; TEMP 36.5; O2SAT 97
[2021-01-15] MEDS: trazodone 50 mg Tablet PO (20:17)
[2021-01-15] MEDS: hyDROXYzine 25 mg Capsule 50 MG PO (20:17)
[2021-01-15] MEDS: OLANZapine 5 mg ODT PO (20:17)
[2021-01-15] MEDS: ziprasidone hcl 20 mg Capsule PO (21:22)
--- NOTE | 2021-01-16 04:50 | PC.NURSE ---
EVENING- Calm and cooperative throughout evening. Denies SI/HI. Does endorse continued AH. States that they are command in nature and tell him to kill self. Denies that they give him a specific plan as to how. Denies SI at this time. Verbally agreed to come to staff if any changes or increase in these AH or thoughts. Denies any VH. Compliant with care. NIGHT- In bed resting with eyes closed throughout night. No complaints voiced. No distress noted. PRNs- At 2017 patient received Vistaril, Nicorette gum, Zydis, and Trazodone. No further complaints.
[2021-01-16] MEDS: OLANZapine 5 mg ODT PO ×2 (05:40→21:08)
[2021-01-16 05:58] VITALS: BP 92/66; PULSE 78; RESP 17; TEMP 36.6; O2SAT 97
[2021-01-16] MEDS: ziprasidone hcl 40 mg Capsule PO (06:19)
[2021-01-16] MEDS: sertraline 50 mg Tablet PO (08:15)
[2021-01-16] MEDS: hyDROXYzine 25 mg Capsule 50 MG PO ×2 (08:15→18:43)
[2021-01-16] MEDS: nicotine 2 mg Gum BUCCAL ×2 (08:15→12:26)
--- NOTE | 2021-01-16 09:55 | PC.NURSE ---
Patient denies SI but states he has auditory hallucinations telling him to kill himself. He has no intention to act on this at this time.
[2021-01-16] MEDS: propranolol 20 mg Tablet PO (12:26)
[2021-01-16 14:00] VITALS: BP 95/65; PULSE 69; RESP 17; TEMP 36.8; O2SAT 96
[2021-01-16] MEDS: haloperidol 5 mg Tablet PO (14:05)
[2021-01-16] MEDS: ziprasidone hcl 60 mg Capsule PO (17:31)
--- NOTE | 2021-01-16 17:51 | PM.NPN ---
Subjective NPU Subjective: Interval history: I discussed the patient's progress with the treatment team. They say he continues to hear voices but is denying suicidal ideation. The court date has been set for 01/19/2021 at 3 PM. The patient says that his mood has been so-so. He says the voices are still bad. They say he does not deserve to be alive and he should kill himself. He is resisting those urges. He says that the increased dose of Geodon did not make him sleepy. We discussed medication for insomnia, and he says that he has taken doxepin in the past successfully. He says his anxiety is getting worse. He is okay adding doxepin. Mental Status Exam MSE Comments: This is an overweight versus obese white male in hospital scrubs with limited grooming and improving eye contact. No abnormal movements except psychomotor retardation. Cooperative with exam in no acute distress. Speech was limited and decreased rate and volume. Mood described as so-so, affect is sad. Thought process linear. Thought content: Patient denied homicidal ideation and stated that his suicidal ideation was resolving. No delusions reported or noted. He continues to have auditory hallucinations but no visual hallucinations reported. Attention and concentration were improving and memory was unreliable but none were formally tested. He is alert and oriented x3. Insight and judgment are impaired, impulse control is impaired. Vitals/I&O/Wt Last Vital Signs Temp 98.2 F 01/16/21 14:00 Pulse 69 01/16/21 14:00 Resp 17 01/16/21 14:00 BP 95/65 01/16/21 14:00 Pulse Ox 96 01/16/21 14:00 Data NPU : 01/10/21 03:47 01/10/21 03:47 A&P Assessment and plan (1) Suicide attempt: Status: Acute (2) Foreign body ingestion: Status: Acute (3) Psychosis: Status: Acute (4) Drug overdose: Status: Acute (5) Cluster B personality disorder: Status: Acute (6) Bipolar depression: Status: Acute Additional A&P Information This is a 35-year-old white male with a long history of psychosis, rapid nodular, intentional ingestions of objects as well as drugs who presents after an overdose and ingestion endorsing suicidality. 1. Continue current medication. Add doxepin 25 mg at bedtime for insomnia. 2. Continue every 15 minute checks for safety. 3. Encourage individual, group and milieu therapies. 4. Encourage sober living treatment after discharge at the highest level of care to which he is willing to commit. Involuntary Hold Information 96 Hour Hold: 96 Hour Involuntary Admission: No 96 Hour Hold Ending Date: 09/16/20 96 Hour Hold Ending Time: 11:45 Attestations NPU Medical Necessity Statement*: Inpatient hospitalization is medically necessary and the clinically appropriate intervention at this time. We will monitor medications and make changes as indicated. Likely length of stay 3-5 days. The 21-day hold hearing has been scheduled for 01/19/2021 at 3 PM. Coding Level of Care Code Acute Habilitative Interventionist for [facility] Diagnoses Suicide attempt T14.91XA Foreign body ingestion T18.9XXA Psychosis F29 Drug overdose T50.901A Cluster B personality disorder F60.89 Bipolar depression F31.9
[2021-01-16 20:27] VITALS: BP 102/65; PULSE 62; RESP 18; TEMP 36.7; O2SAT 98
[2021-01-16] MEDS: doxepin 25 mg Capsule PO (21:08)
[2021-01-17 06:00] VITALS: BP 102/65; PULSE 62; RESP 18; TEMP 36.7; O2SAT 98
[2021-01-17] MEDS: ziprasidone hcl 60 mg Capsule PO ×2 (06:01→17:11)
[2021-01-17 06:42] VITALS: BP 110/70; PULSE 69; RESP 16; TEMP 36.6; O2SAT 99
[2021-01-17] MEDS: sertraline 50 mg Tablet PO (08:56)
[2021-01-17] MEDS: hyDROXYzine 25 mg Capsule 50 MG PO ×2 (08:58→17:11)
[2021-01-17] MEDS: nicotine 2 mg Gum BUCCAL ×3 (08:58→17:11)
[2021-01-17] MEDS: loperamide 2 mg Capsule PO (10:26)
[2021-01-17] MEDS: propranolol 20 mg Tablet PO (13:49)
[2021-01-17 14:00] VITALS: BP 100/62; PULSE 53; RESP 17; TEMP 36.5; O2SAT 97
--- NOTE | 2021-01-17 14:29 | PM.NPN ---
Subjective NPU Subjective: Interval history: I met with the treatment team to discuss the patient's progress. They say he has been calm and cooperative. The patient says that he was able to fall asleep a little easier with the doxepin but it was still after midnight before he eventually went to sleep. Mood is now more anxious than depressed. The voices are still present but not overwhelming today. He says they are more manageable on the increased dose of Geodon. They are not taking up all of his time now. For instance, he can sit in his room alone without the voices intruding so much. He says he is more anxious, and he is worried about the return of the voices. He says he has taken propranolol for anxiety in the past and it may have been helpful. He has no side effects from his medication. We did talk some about his plan to return to his uncle's house in [place] when he discharges. Mental Status Exam MSE Comments: This is an overweight versus obese white male in hospital scrubs with limited grooming and improving eye contact. No abnormal movements except psychomotor retardation. Cooperative with exam in no acute distress. Speech was at a regular rate, rhythm, and volume. Mood and affect are improved. Thought process linear. Thought content: Suicidal ideation is better. No homicidal ideation. No delusions reported or noted. He continues to have auditory hallucinations but they are improved. No visual hallucinations reported. Attention and concentration were improving and memory was unreliable but none were formally tested. He is alert and oriented x3. Insight and judgment are impaired, impulse control is impaired. Vitals/I&O/Wt Last Vital Signs Temp 97.8 F 01/18/21 06:00 Pulse 62 01/18/21 06:00 Resp 16 01/18/21 06:00 BP 95/59 01/18/21 06:00 Pulse Ox 97 01/18/21 06:00 Weight last 48 hrs Weight 96.479 kg Weight 96.479 kg Data NPU : 01/10/21 03:47 01/10/21 03:47 A&P Assessment and plan (1) Suicide attempt: Status: Acute (2) Foreign body ingestion: Status: Acute (3) Psychosis: Status: Acute (4) Drug overdose: Status: Acute (5) Cluster B personality disorder: Status: Acute (6) Bipolar depression: Status: Acute Additional A&P Information This is a 35-year-old white male with a long history of psychosis, rapid nodular, intentional ingestions of objects as well as drugs who presents after an overdose and ingestion endorsing suicidality. 1. Continue current medication. Added doxepin 25 mg at bedtime for insomnia. Sleep is improved. Geodon is now 60 mg twice a day. Hallucinations are improving. 2. Continue every 15 minute checks for safety. 3. Encourage individual, group and milieu therapies. 4. Encourage sober living treatment after discharge at the highest level of care to which he is willing to commit. Involuntary Hold Information 96 Hour Hold: 96 Hour Involuntary Admission: No 96 Hour Hold Ending Date: 09/16/20 96 Hour Hold Ending Time: 11:45 Attestations NPU Medical Necessity Statement*: Inpatient hospitalization is medically necessary and the clinically appropriate intervention at this time. We will monitor medications and make changes as indicated. Likely length of stay 2-4 days. The 21-day hold hearing has been scheduled for 01/19/2021 at 3 PM. Coding Level of Care Code Acute Computer Technician for [facility] [employer] Diagnoses Suicide attempt T14.91XA Foreign body ingestion T18.9XXA Psychosis F29 Drug overdose T50.901A Cluster B personality disorder F60.89 Bipolar depression F31.9
[2021-01-17 22:00] VITALS: BP 87/59; PULSE 63; RESP 17; TEMP 36.6; O2SAT 98
[2021-01-17] MEDS: doxepin 25 mg Capsule PO (22:25)
[2021-01-18 06:00] VITALS: BP 95/59; PULSE 62; RESP 16; TEMP 36.6; O2SAT 97
[2021-01-18] MEDS: ziprasidone hcl 60 mg Capsule PO (08:53)
[2021-01-18] MEDS: sertraline 50 mg Tablet PO (08:53)
[2021-01-18] MEDS: nicotine 2 mg Gum BUCCAL ×2 (08:55→15:30)
[2021-01-18] MEDS: hyDROXYzine 25 mg Capsule 50 MG PO ×3 (08:55→21:18)
--- NOTE | 2021-01-18 09:34 | P.PN_ITS ---
Subjective NPU Subjective: Interval history: I met with the patient this morning. He says that he slept better last night. Mood continues to improve and he is not as anxious today. Voices have continued to improve as well, but are still present. No suicidal ideation now. No medication side effects on doxepin and Geodon 60 mg twice daily. He consents to an increase of Geodon to address the voices. We talked more about discharge plans. He feels he will be safe at his uncle's house when he is ready to discharge. Mental Status Exam MSE Comments: This is an overweight versus obese white male in hospital scrubs with limited grooming and improving eye contact. No abnormal movements except psychomotor retardation. Cooperative with exam in no acute distress. Speech was at a regular rate, rhythm, and volume. Mood and affect are improved. Thought process linear. Thought content: No suicidal or homicidal ideation. No delusions reported or noted. He continues to have auditory hallucinations but they continue to improve. No visual hallucinations reported. Attention and concentration were improving and memory was unreliable but none were formally tested. He is alert and oriented x3. Insight and judgment are impaired, impulse control is impaired. Vitals/I&O/Wt Last Vital Signs Temp 97.8 F 01/18/21 06:00 Pulse 62 01/18/21 06:00 Resp 16 01/18/21 06:00 BP 95/59 01/18/21 06:00 Pulse Ox 97 01/18/21 06:00 Weight last 48 hrs Weight 96.479 kg Weight 96.479 kg Data NPU : 01/10/21 03:47 01/10/21 03:47 A&P Assessment and plan (1) Suicide attempt: Status: Acute (2) Foreign body ingestion: Status: Acute (3) Psychosis: Status: Acute (4) Drug overdose: Status: Acute (5) Cluster B personality disorder: Status: Acute (6) Bipolar depression: Status: Acute Additional A&P Information This is a 35-year-old white male with a long history of psychosis, rapid nodular, intentional ingestions of objects as well as drugs who presents after an overdose and ingestion endorsing suicidality. 1. Continue current medication. Added doxepin 25 mg at bedtime for insomnia. Sleep is improved. We will increase Geodon to 80 mg twice a day. Hallucinations and anxiety are improving. 2. Continue every 15 minute checks for safety. 3. Encourage individual, group and milieu therapies. 4. Encourage sober living treatment after discharge at the highest level of care to which he is willing to commit. Involuntary Hold Information 96 Hour Hold: 96 Hour Involuntary Admission: No 96 Hour Hold Ending Date: 09/16/20 96 Hour Hold Ending Time: 11:45 Attestations NPU Medical Necessity Statement*: Inpatient hospitalization is medically necessary and the clinically appropriate intervention at this time. We will monitor medications and make changes as indicated. Likely length of stay 1-3 days. The 21-day hold hearing has been scheduled for 01/19/2021 at 3 PM. Coding Level of Care Code Acute Newspaper Photo Editor for [facility] Diagnoses Suicide attempt T14.91XA Foreign body ingestion T18.9XXA Psychosis F29 Drug overdose T50.901A Cluster B personality disorder F60.89 Bipolar depression F31.9
[2021-01-18] MEDS: propranolol 20 mg Tablet PO (10:57)
[2021-01-18 14:00] VITALS: BP 104/65; PULSE 64; RESP 15; TEMP 36.6; O2SAT 96
[2021-01-18] MEDS: petrolatum oint Pkt 5 gm 1 APPLIC TOPICAL (16:23)
[2021-01-18] MEDS: ziprasidone hcl 40 mg Capsule 80 MG PO (16:23)
[2021-01-18] MEDS: OLANZapine 5 mg ODT PO (17:37)
--- NOTE | 2021-01-18 17:38 | PC.NURSE ---
PATIENT CAME TO DESK AND ASKED FOR A PRN, I'M HEARING VOICES, THEY ARE TELLING ME TO KILL MYSELF, THEY ARE GETTING REALLY LOUD. MEDICATED PER PRN ORDERS 5MG [id number].
[2021-01-18] MEDS: haloperidol 5 mg Tablet PO (18:30)
[2021-01-18] MEDS: doxepin 25 mg Capsule PO (20:20)
[2021-01-18 20:29] VITALS: BP 119/78; PULSE 86; RESP 18; TEMP 36.9; O2SAT 98
[2021-01-19 05:59] VITALS: BP 100/60; PULSE 49; RESP 18; TEMP 36.6; O2SAT 93
[2021-01-19] MEDS: ziprasidone hcl 40 mg Capsule 80 MG PO (06:42)
--- NOTE | 2021-01-19 07:52 | PC.NURSE ---
refused scheduled Nicotine patch
[2021-01-19] MEDS: sertraline 50 mg Tablet PO (08:16)
[2021-01-19] MEDS: nicotine 2 mg Gum BUCCAL ×2 (08:19→12:03)
[2021-01-19] MEDS: hyDROXYzine 25 mg Capsule 50 MG PO (08:19)
--- NOTE | 2021-01-19 12:38 | PM.NDC ---
Diagnoses at Discharge Discharge Diagnosis (1) Suicide attempt: Status: Resolved (2) Foreign body ingestion: Status: Resolved (3) Psychosis: Status: Chronic (4) Drug overdose: Status: Resolved (5) Cluster B personality disorder: Status: Chronic (6) Bipolar depression: Status: Chronic Reason for Visit Reason for Visit: SI - STATES ATTEMPT MADE Brief History: Shayan Dickson is a 35 year old male who presented to the emergency department with the following report: Chief Complaint: Overdose Stated Complaint: SI - STATES ATTEMPT MADE Time Seen by Provider: 01/09/21 06:58 History of Present Illness: HPI Narrative: 35-year-old male presents emergency room states he took 30 Ambien last night 10 mg tablets note for 5:00 this morning took 66 mg tablets of Invega. He did not feel like it was effective in his attempts to kill himself so he then ingested a razor blade that he had been using to try to cut his left wrist there is superficial abrasions on the left wrist. Denies any hematemesis coffee-ground emesis he has presented to our emergency room in the past with ingestion of razor blades. MD complaint: intentional overdose Onset (ago): hour(s). He was admitted to the hospital for definitive treatment of those issues which included going to the OR and getting the razor cartridge removed which has been a behavior he has done for multiple times without known him since 2019 and tablets of medications were also removed during that ER visit. He was then monitored in the ICU and then transferred to the neuropsychiatric unit for definitive treatment of those issues. Today he presents with very limited historical information and is not really interested in speaking to me today. He had no clear reasoning behind his behavior at this point but also was very resistant to the conversation. We discussed the plan to hold his medications at least for the next day or so until we see how he responds to the over dosing of those medications and agreed that we would go from there. An excerpt of his last hospitalization which occurred in November is included below for context. Per his 12/17/2020 [facility] inpatient psychiatric evaluation: History of Present Illness Shayan Dickson is a 35 year old male who presented to the ED with the following report: Chief Complaint: Psychiatric Symptoms Stated Complaint: SI Time Seen by Provider: 12/16/20 08:45 History of Present Illness: HPI Narrative: 35-year-old male presents emergency room stating take 80 tablets of aspirin last night around 2 PM yesterday which makes it about 20 hours ago. He took some other pills along with that that were not labeled. He does state he was trying to kill himself. He states he had auditory hallucinations of voices telling him to kill himself. He has not had any hematemesis or coffee-ground emesis no hematochezia no melena. He denies any dysuria urgency or frequency. He has tried to harm himself in the past. Evidently this was precipitated by some relationship issues. MD complaint: suicidal ideation and feels depressed Duration: constant History of same: Yes Relieving factors: none Exacerbating factors: none Context: not taking psychiatric medications and significant life stressor Associated psychiatric symptoms: depression, suicidal ideation, auditory hallucinations and visual hallucinations Associated symptoms: Reports auditory hallucinations, depression and suicidal ideation; Deny visual hallucinations, delusions, homicidal ideation or racing thoughts Treatments prior to arrival: none If self harm: admits thoughts of self harm, has plan and has acted on plan. Agreed to the neuropsychiatric unit for definitive treatment of those issues. Patient is well-known to this script writer and to the unit from multiple hospitalizations with the last one being in August of this year. Excerpt of that note is included below for context and as he denies substantive changes. He does endorse however that he has not been back on his medication for reasons that he could not clarify. But he has been off of the medication and not doing as well he reports. He reports that his living arrangement is still fairly stable and he was worried that he was going continue with the suicidal thoughts he was having and so he went to come to the hospital, get restarted on his medication have his suicidality myron and get back on track overall with treatment. Part of his concern what some of the medication was helpful some of it he did not feel was. We agreed we would review his chart and try to get a sense of what direction we might go in the treatment particularly with bipolar disorder. Per his 09/11/2020 [facility] inpatient psychiatric evaluation: History of Present Illness Shayan Dickson is a 35 year old male who presented to the emergency department with the following report: Chief Complaint: Overdose Stated Complaint: SI Time Seen by Provider: 09/10/20 10:40 History of Present Illness: HPI Narrative: Patient is a 35-year-old male who comes to the ED with SI and overdose. Patient says around 5 AM today he took approximately 120 tablets of Tylenol p.m. to kill himself. Patient has history of schizophrenia. He states that he has been suicidal in the past and that currently he is hearing voices that are telling him to kill himself. He states he has been currently taking his psych meds as prescribed but over the last week he feels like they have been helping him. This past week he is hearing the voices more and more. He denies any visual hallucinations or HI. He endorses having a little bit of nausea currently but no other symptoms. Associated symptoms: Reports auditory hallucinations and suicidal ideation; Deny visual hallucinations or homicidal ideation. He was admitted to the neuropsychiatric unit for definitive treatment of those issues. Shayan presents today reporting that he had left ear over a year ago and went down to a friend's place in another state had been doing fairly well. He reports that his uncle started having problems never brought him back. He reports that the reason why he came in was that his voices were increasing and he needed to have some treatment for that. We reviewed his medications and the different ones he had been on identify something he could try. He reports the Zyprexa has been effective for him but that at some point after he left this with him over the Thorazine and the Thorazine stopping helpful. He also was very focused on Suboxone reporting that he is been taking it and he started to have withdrawal symptoms secondary to it not being prescribed. We were able to review his records and determined that he had not had an active prescription at this time. Explained to him our policy only prescribing Suboxone to people with active prescription he had already stated he had the medication available at home but then was very elusive about having somebody bring it to substantiate his claim that he has been taking less to preserve it as he tried to get an appointment. We discussed the risk-benefit alternatives of a trial of Geodon and he understood agreed proceed as documented in his note. He denied any substantive changes in his psychosocial history outside [place] so an excerpt from his previous note is included below. Per his 09/17/2019 [facility] inpatient psychiatric eval: History of Present Illness Shayan Dickson is a 34 year old male Shayan presented to the emergency room reporting a decompensation and wanting to secondary to running out of his medications. His report is that he had been taking his medications as prescribed but was not allowed to turkey picker his medication secondary to something to do with his insurance, that he did not understand. He reports that the medications that had been started in his last hospitalization were working fine and he was feeling optimistic about things, continuing to go in the right direction and improve, but as he got further away from them not being able to refill his medications, he started feeling worse and worse, and now he just reports that he is fed up with life and wanting to kill himself. He was admitted to the neuro-psychiatric unit for definitive treatment of those issues. We continued his current medications and agreed to do some investigation into his medications which were discontinued secondary to availability to make sure that it is not something that will prevent that in the future as well. We agreed that if we were able to identify that it was a glitch, that we would restart those medications and if we identify that it was going to be a problem moving forward, we would attempt an alternative treatment plan. He understood and agreed to proceed as is documented in this note. We reviewed his last hospitalization record from 06-25-19 and he denied any substantive changes since that time. An excerpt of that evaluation is included below. Per his last [facility] IP eval 06/25/2019: HPI NPU History of Present Illness Shayan Dickson is a 34 year old male who presents today reporting that he is doing okay. He reports that his Zyprexa was discontinued, but he could give no explanation for why that was the case. We discussed his repeat behavior from October of last year which was swallowing the ends of a couple BIC razors, which had already been used, and were fairly dull in this reported suicide attempt. He could not move away from the fact that it was a real and valid attempt and not some kind of gesture. He reported that he thought that if he took those that they would slice him but to be clear these were not actual razorblades that were open. This was little plastic tops of cheap razors that had double blades in them, but they are kind of contained in the plastic so there is some risk, but not extreme risk. The surgeon went in and took them out and had them sent away for testing. We discussed the fact that he does have intellectual disability within special education classes in school, has limited functioning in that way. He continues to live with his uncle and his five dogs. He reports that he will never do this thing with the razors again. We talked about the fact that if he did in fact succeed, that his dogs would be left alone. He reported that he thought about that, but there seemed to be limited connectivity. We reviewed his most recent psychiatric evaluation here and he denied any substantive changes in the history or psychosocial circumstances. Per recent [facility] eval 05/17/2019: HPI NPU History of Present Illness Chief complaint: the voices are so bad that I'm going to kill myself. History of present illness: Shayan Dickson is a 34 year old male who tells an undocumented fairly reasonable story of a life lived suffering auditory hallucinations to varying degrees. When he is doing well, he will hear muttering voices that do not cause him a great deal of difficulty. He states that he seldom is free of the voices. 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 3 months ago, the voices began getting worse. He is has no theory as to why they have gotten worse. 3 weeks ago, they began getting intrusive to the point where he was willing to end his life just to free himself from the torture from these voices. He hears a number of different voices. He is able to interpret who they are. They are from important people in his life. These include a woman that he knows and Her boyfriend, his stepbrother and his . they Say demeaning things in a very loud manner. They tell him that he should and they tell him how he should kill himself. in spite of having struggled with during much of his life, he cannot give any guidance as to what interventions have been helpful. He said that he took lithium for a while and it was quite helpful. However it stopped working. It is noted that he was hospitalized here in October 2018 and was discharged on a combination of Suboxone, Zyprexa, and citalopram. He can give no assessment as to whether the Zyprexa helped him with his voices. He says that if the voices are reduced, he will no longr be suicidal. He is ambivalent about symptoms of depression. He says that he does not do anything enjoyable and simply passes this time when his phone and taking care of animals around his arm. He reports good sleep. He has no specific suicide plan this time. He said suicide thoughts were proceeded by the worsening of the voices. His urine drug screen is negative. He is actively taking the Suboxone and receives it from an outpatient therapist. However he has not continued his medications otherwise from discharge in October 2018. Mental health history: history of this patient was very difficult to acquire. He talks very rapidly and in the low mumbling fashion. His thoughts are mildly disorganized.he reports that originally he grew up in [place] and that at one point he left a rehabilitation program there and moved to [place]. He was only in [place] for 3 months when there were some financial difficulties and he came to the [facility] in 2010. He gives no further history regarding mental health care. It is noted that he can give no advisement regarding any other medication trials that have had any effect positive for negative on his auditory hallucinations. notes from his admission to this unit in October 2018: 11/13/2018 Shayan presents today reporting that the situation with his razor blade centered around his loss of his fianc?e. He reports that his significant other had committed suicide about 3 days shy of 2 years of when he made this suicide attempt before admission. He reports that he was feeling very low without feeling a clear sense of relief. And he had read online that he swallowed a razor blade that it would go through certain parts and because it was internal organs you would not feel it as it was slicing through things and that he would bleed out in his sleep. He reports that when he woke up and was alive but had a rectal bleeding he got really anxious and that when he came to the hospital. He is passed the razor blade now and at this point he reports that he is feeling better and more optimistic. With his first day on the psychiatric unit we discussed the fact that we needed to observe him for a couple of days to get a sense of where he really is prior to being comfortable with discharge. We had filed a 21-day hold paperwork but were able to negotiate and get an agreement that he will work with us over the next few days with a plan for discharge at the beginning of the week. Hospital Course: Shayan presented to the unit after being in the ICU and followed by surgery secondary to the ingestion of a razor blade or at least razor blade containing item from the head of a razor. After being followed until the object had been defecated since they were unable to get it by surgical means he was transferred to the NPU. After he woke up alive he reports that he got himself to the hospital for help and reports that he did not have any lethality after awaking and felt a desire to get help and not continue with self-injurious suicidal behaviors. So after a few days in the ICU he spent a few days in the NPU where he was observed and each day denied any lethality and a desire to go home and continue with his life. His medications were continued. Once he got to the NPU he acclimated to the individual, group and milieu therapies. While he was in the hospital he had routine laboratory studies which were within normal limits except for a few outliers. Those can be seen below. He also had a general medical evaluation this was within normal limits and revealed no acute processes except for the issue with the intentional ingestion. At the time of discharge his mood had improved, his lethality had resolved and he was sleeping better. He endorsed the plan to take his medication as prescribed, continue with his recovery oriented outpatient treatments and abstain from drugs of abuse as well as self-injurious and suicidal behaviors. He had obtained all the benefits he could get from the inpatient unit so he was discharged. Social history:the patient is currently supporting himself through his disability payments. He lives with uncle who apparently has a farm. He spends much of his time helping his uncle with daily activities around the farm such as feeding animals and taking care of the general grounds. He engages in no enjoyable activities and largely spends his time playing on his phone. His uncle apparently is advanced in age and is concerned about Shayan's well-being as the uncle's health declines. Shayan's uncle has advised him to go to a rehabilitation program and get off the Suboxone so that eventually he can be placed in a long term or residential care facility. Legal history:there is no history in the [place] public record of incarcerations or felony arrests. Past medical history: Allergies Escitalopram. NSAIDS (NON-STEROIDAL ANTI-INFLAMMA. Venlafaxine. SOCIAL HX: Heavy tobacco smoker (cigarette)- 1 pack per day. No alcohol use or drug use. No recent travel. PROBLEMS: Ulcerative Colitis. GI Bleeding. Depression. Bipolar Disorder. Colitis. ADDITIONAL SURGERIES: Appendectomy. . Mental Status Exam: the patient is an alert interpersonally engaged male. He is believed to be a reliable informant to the best of his ability as information that is provided is internally consistent and consistent with that in the chart. Appearance: hygiene is fair; no gross neurological deficits., gait is unremarkable; AIMS=0 Speech: Speech is she is rapid with indistinct enunciation with frequently makes some of the information difficult to assess. Thought processes: Thought processes are abstract. Judgment is adequate for safety. Associations: intact Psychotic processes: There is no indication of guarding or paranoia. There is no attention to the internal stimuli. auditory hallucinations are reported as above. He denied the presence of visual hallucinations. Judgment: Insight is good. Problem solving skills are adequate for safety. Orientation: The patient is oriented to person, place time and situation. Memory: no deficits noted in immediate, intermediate, or remote spheres. Attention: The patient is alert and interpersonally engaged. Language: Verbalizations are coherent. Fund of knowledge: Fund of knowledge is adequate. Affect/Mood: Affect is consistent with a depressed mood. he reported vague suicidal ideation without intent or plan. Affective range good Psychosis: perception unimpaired despite intrusive auditory hallucinations that he is experiencing.; reality testing intact. Diagnoses: schizophrenia?undifferentiated, acute Assessment:this is a difficult situation given that he has a long-standing history of schizophrenia but can give no feedback as to what medications have been tried without any success in the past. At this point, we will continue the Zyprexa 20 mg at bedtime and also provide when necessary dosing during the day with Geodon as needed for auditory hallucinations. He will continue with Suboxone and the Celexa. We will discuss the feasibility of placement in a rehabilitation program with manager social services. If this is a reasonable possibility, tapering some from Suboxone will be discussed. Hospital Course Hospital Course The patient was admitted to the neuropsychiatric unit for definitive treatment of these issues. On the unit he slowly acclimated to the individual, group and milieu therapies. He had auditory hallucinations on admission and they gradually resolved as Geodon was started at 40 mg twice daily and gradually increased to 80 mg twice daily. He had no side effects on this medicine. Doxepin 25 mg was started for insomnia. He was receptive to treatment team recommendations and showed modest improvement and was able to contract for safety prior to discharge. During the hospitalization, patient had routine laboratory studies which were within normal limits except for few outliers. Additionally there was a general medical evaluation which was also within normal limits and revealed no new acute processes. Discharge Summary: At the time of discharge, psychosis and lethality were denied. Mood and anxiety were well managed. Patient endorsed a plan to avoid all drugs of abuse and follow-up with the aftercare recommendations of the treatment team. Patient was evaluated and deemed to be absent credible lethality, and had achieved the maximum benefit from an inpatient hospitalization, so was discharged. Involuntary Hold Information 96 Hour Hold: 96 Hour Involuntary Admission: No 96 Hour Hold Ending Date: 09/16/20 96 Hour Hold Ending Time: 11:45 Mental Status Exam MSE Comments: The patient made good eye contact and was cooperative and open to the exam. No psychomotor agitation or retardation. Speech was had a regular rate and rhythm without pressure. Alert and oriented to person, place, time, and situation. Attention and concentration were intact to exam Memory was fairly good to exam. Mood is improved without depression and anxiety. Affect is brighter. Thought process: Logical and goal directed. No racing thoughts or flight of ideas. Thought content: He had some auditory hallucinations, which are likely his baseline level. No command hallucinations. Denies visual hallucinations. There are no delusions noted. No suicidal or homicidal ideation. Has future-oriented goals. Insight and judgment are improved and adequate. Discharge Data Data Completed and Pending: Completed Studies During Hospitalization Category Date Time Status XR KUB portable 7 [id number] Stat Exams 01/09/21 07:13 Completed Vitals: Last Vital Signs Temp 97.9 F 01/19/21 05:59 Pulse 49 L 01/19/21 05:59 Resp 18 01/19/21 05:59 BP 100/60 01/19/21 05:59 Pulse Ox 93 01/19/21 05:59 Discharge Plan Discharge Patient Disposition: Home Condition: Stable Prescriptions: New ziprasidone HCl 40 mg Capsule 80 mg PO 0700,1700 30 Days Qty: 120 RF: 1 sertraline 50 mg Tablet 50 mg PO DAILY 30 Days Qty: 30 RF: 1 propranolol 20 mg Tablet 20 mg PO TID PRN (Reason: anxiety) 30 Days Qty: 90 RF: 1 hydroxyzine pamoate 25 mg Capsule 50 mg PO Q6H PRN (Reason: Anxiety or Sleep) 30 Days Qty: 180 RF: 1 doxepin 25 mg Capsule 25 mg PO BEDTIME 30 Days Qty: 30 RF: 1 Discontinued zolpidem 5 mg Tablet 10 mg PO BEDTIME 30 Days Qty: 60 RF: 1 paliperidone 6 mg Tablet Extended Release 24hr 6 mg PO DAILY 30 Days Qty: 30 RF: 1 buprenorphine-naloxone 8-2 mg film 1 film sublingual BID RF: 0 Discharge Orders: Discharge Order (Routine); Ordered 01/19/21 Ordered By: Nicolas Walker Referrals: [facility] [Outside] (Walk in Tuesdays or 7:30am to 3pm.) Discharge Diet: Usual diet Discharge Activity: Resume usual activity Patient Instructions: Propranolol (By mouth), Doxepin (By mouth), Hydroxyzine (By mouth), Sertraline (By mouth), Ziprasidone (By mouth), Depression (DC), Suicide Prevention (DC), Opioid Safety Discharge Attestations NPU Time Spent in Discharge Care*: less than 30 min Specific Discharge Activities: Specific discharge activities: educating patient, discussing with case worker/social workers/dc planners, documenting/other paperwork and evaluating patient/reviewing data Status at Discharge: Cognitive status at discharge: cognitively intact, Behavioral status at discharge: cooperative, Functional status at discharge: independent ambulation Overall status at discharge: patient is back to baseline Coding Level of Care Code Acute Chg FW DC note Diagnoses Suicide attempt T14.91XA Foreign body ingestion T18.9XXA Psychosis F29 Drug overdose T50.901A Cluster B personality disorder F60.89 Bipolar depression F31.9
[2021-01-19 12:44] VITALS: BP 100/60; PULSE 49; RESP 18; TEMP 36.6; O2SAT 93
--- NOTE | 2021-01-19 13:19 | DCPLANNER ---
IMM completed with pt on 01/19/2021 @ 12:58pm.
--- NOTE | 2021-01-19 13:32 | PC.NURSE ---
Disposed of decal cutter per Dr. Walker and patient. Patient is agreeable and decal cutter disposed of with this nurse and charge nurse as witness.
== END 2021-01-19 14:18 | disposition home or self-care (01) | DRG 918 ==
LOC: ER 08:56 → GILAB 09:17 → ICU 10:51 → NP 01-10 11:31
PROVIDERS: Surgery; Admitting Provider Hospitalist; Emergency Provider Family Medicine; Visit Provider Psychiatry & Neurology Child & Adolescent Psychiatry
PROC: 0DJ08ZZ Inspection of Upper Intestinal Tract, Via Natural or Artificial Opening Endoscopic (ICD-10-PCS; CPT 43235; principal; 2021-01-09 09:00)
DX: T42.6X2A Poisoning by other antiepileptic and sedative-hypnotic drugs, intentional self-harm, initial encounter (principal); T18.2XXA Foreign body in stomach, initial encounter; X78.8XXA Intentional self-harm by other sharp object, initial encounter; F25.0 Schizoaffective disorder, bipolar type; F17.210 Nicotine dependence, cigarettes, uncomplicated; F60.89 Other specific personality disorders
CPT/HCPCS: 36415; 43247; 74018; 80053; 80306; 80307; 81001; 85025; 93005; 96361; 96365; 96366; 96372; 97150; 97165; 99285; J0330; J0573; J1200; J1630; J2060; J2370; J2704; J7030

== ENCOUNTER 2021-01-25 08:10 | Inpatient (IN) | payer MEDICARE, MEDICAID, SELFPAY ==
[2021-01-25] VITALS (86 sets, daily range): BP systolic 75–116; BP diastolic 42–76; PULSE 57–90; RESP 9–34; TEMP 36.6–37.1; O2SAT 79–98; BMI 26.4
[2021-01-25 08:47] LABS: Basophils % 0.3 %; Eosinophils # 0.6 10^3/uL (0.0-0.8); Eosinophils % 6.5 %; Hematocrit 45.5 % (42.0-52.0); Hemoglobin 15.6 g/dL (11.7-16.6); Lymphocytes # 2.5 10^3/uL (0.8-4.8); Mean Corpuscular HGB Conc 34.3 g/dL (30.0-36.0); Mean Corpuscular Hemoglobin 29.4 pg (28.0-34.0); Mean Corpuscular Volume 85.7 fl (80-94); Mean Platelet Volume 9.8 fL (7.4-10.4); Monocytes # 0.6 10^3/uL (0.2-0.9); Monocytes % 6.6 %; Neutrophils # 5.25 10^3/uL (1.8-7.7); Neutrophils % 58.4 %; Nucleated Red Blood Cells % 0 %; Platelet Count 280 10^3/cmm (130-400); Red Blood Count 5.31 10^6/uL (4.1-5.3); Red Cell Distribution Width 12.5 % (12.1-15.1)
--- NOTE | 2021-01-25 08:48 | W.ED.PSYCH ---
Documented by User: GREGORIA Hong 01/25/21 16:03 HPI - Psych General: Chief Complaint: Psychiatric Symptoms Stated Complaint: N/V, DIARRHEA, BLOOD IN STOOL Time Seen by Provider: 01/25/21 08:16 History of Present Illness: HPI Narrative: Patient states that he was having a lot of hallucinations been going on for quite a while and he took his pills last night. Hard to determine how many pills are were. Patient said he threw up soon afterwards. He presents here with suicide attempt and with vital signs stable , conversing normally. Does not appear in any acute distress. Said he felt nauseated earlier in the morning hours. The suicide attempt happened approximately 8 hours ago. MD complaint: suicidal ideation and feels depressed Onset (ago): year(s) History of same: Yes Associated psychiatric symptoms: depression, suicidal ideation, auditory hallucinations and visual hallucinations Associated symptoms: Reports auditory hallucinations, visual hallucinations, depression and suicidal ideation Review of Systems Const: Denies: fever(s), chills or body aches Eyes: Denies: change in vision or blurry vision ENMT: Denies: throat pain or nasal congestion Card: Denies: chest pain or dyspnea on exertion Resp: Denies: dyspnea, productive cough or non-productive cough GI: Reports: nausea and vomiting; Denies: abdominal pain : Denies: difficulty urinating Musc: Denies: extremity pain Skin/Breast: Denies: rash Neuro: Denies: headache(s) Psych: Reports: depression, mood swings, loss of interest, visual hallucinations, auditory hallucinations and suicidal ideation; Denies: anxiety Miguel Angel/Lymph: Denies: easy bruising PFS ED PFSH: Medical History (Updated 01/26/21 @ 16:01 by Tab Colunga MD) Opiate misuse Schizophrenia Suicide attempt Ulcerative colitis Surgical History History of appendectomy Social History (Updated 01/09/21 @ 10:11 by Mich Madera MD) Smoking and tobacco status: current every day smoker Alcohol intake: never Physical Exam Const: COMMON NORMALS: no acute distress, average body habitus and patient oriented x3 HENMT: COMMON NORMALS: normocephalic HEAD & SCALP: normal to inspection and normocephalic FACE & SINUS: normal facial exam Eye: COMMON NORMALS: conjunctivae normal GENERAL EYE: appearance normal, both eyes and all related structures CONJUNCTIVA: Yes conjunctivae normal Neck/C-Spine: COMMON NORMALS: no JVD Chest: COMMONS NORMALS: normal inspection of the chest Resp: COMMON NORMALS: normal respiratory effort and clear to auscultation bilaterally AUSCULTATION: clear to auscultation bilaterally Cardio: COMMON NORMALS: no JVD, regular rate and regular rhythm RATE: regular rate RHYTHM: regular rhythm GI: COMMON NORMALS: Normal to inspection, nondistended, normoactive bowel sounds present Extremity: COMMON NORMALS: normal to inspection and full ROM Neuro: COMMON NORMALS: patient oriented x3 Psych: COMMON NORMALS: mental status grossly normal, Normal thought process present and speech normal APPEARANCE: Yes grossly normal ATTITUDE: Yes calm SPEECH: Yes normal speech THOUGHT PROCESS: Normal thought process present THOUGHT CONTENT: Yes Normal thought content present Course Vital Signs: Vital signs: Vital Signs Temperature 97.6 F 01/31/21 14:00 Pulse Rate 89 01/30/21 21:40 Respiratory Rate 16 01/31/21 21:58 Blood Pressure 106/75 01/30/21 21:40 Pulse Oximetry 100 01/30/21 21:40 MDM - Psych MDM Narrative: Medical decision making narrative: Reviewed patient's presentation and EKG and history with Dr. Proctor on patient's admission to the ER. Patient's EKG shows a QRS duration 119 which is down from 124 that he had performed on January 09 of this year. Patient states he vomited soon after taking the pills this morning. Does feel nauseated presently. Poison control was contacted. Recommend magnesium level and EKG. Post control said serum peak level should have been reached already with these medications. Patient started becoming hypotensive after spoke with Dr. Escobar. Patient was given fluids UA obtained and patient was transferred care over to Dr. Proctor Lab Data: Labs: Lab Results 01/25/21 01/25/21 01/25/21 08:39 08:39 08:39 WBC 9.0 10^3/uL 10^3/ uL (4.0-10.0) RBC 5.31 10^6/uL H 10 ^6/uL (4.1-5.3) Hgb 15.6 g/dL g/dL (11.7-16.6) Hct 45.5 % % (42.0-52.0) MCV 85.7 fl fl (80-94) MCH 29.4 pg pg (28.0-34.0) MCHC 34.3 g/dL g/dL (30.0-36.0) RDW 12.5 % % (12.1-15.1) Plt Count 280 10^3/cmm 10^3 /cmm (130-400) MPV 9.8 fL fL (7.4-10.4) Neut % (Auto) 58.4 % % Lymph % (Auto) 28.0 % % [place] % (Auto) 6.6 % % Eos % (Auto) 6.5 % % Baso % (Auto) 0.3 % % Neut # (Auto) 5.25 10^3/uL 10^3 /uL (1.8-7.7) Lymph # (Auto) 2.5 10^3/uL 10^3/ uL (0.8-4.8) [place] # (Auto) 0.6 10^3/uL 10^3/ uL (0.2-0.9) Eos # (Auto) 0.6 10^3/uL 10^3/ uL (0.0-0.8) Baso # (Auto) 0.0 10^3/uL 10^3/ uL (0.0-0.1) Nucleated RBC % (a uto) 0 % % Nucleated RBCs # 0.0 /100WBC /100W BC Sodium 137 mmol/L mmol/L (136-145) Potassium 3.9 mmol/L mmol/L (3.5-5.1) Chloride 101 mmol/L mmol/L (98-107) Carbon Dioxide 24 mmol/L mmol/L (22-29) Anion Gap 15.9 (5-19) BUN 12 mg/dL mg/dL (6-20) Creatinine 0.8 mg/dL mg/dL (0.7-1.2) GFR Calculation 109.4 mL/min mL/m in (90-130) Glucose 163 mg/dL H mg/dL (65-115) POC Glucose Calculated Osmolal ity 287 mOsm/kg mOsm/ kg (285-295) Calcium 8.8 mg/dL mg/dL (8.5-10.5) Magnesium 1.6 mg/dL L mg/dL (1.7-2.3) Total Bilirubin 0.8 mg/dL mg/dL (0.15-1.2) AST 14 U/L U/L (0-40) ALT 12 U/L U/L (0-41) Alkaline Phosphata se 99 IU/L IU/L (40-130) Total Protein 7.2 g/dL g/dL (6.6-8.7) Albumin 4.3 g/dL g/dL (3.5-5.2) Globulin 2.9 g/dL g/dL (1.3-4.6) Urine Color Urine Appearance Urine pH Ur Specific Gravit y Urine Protein Urine Glucose (UA) Urine Ketones Urine Blood Urine Nitrate Urine Bilirubin Urine Urobilinogen Ur Leukocyte Riya ase Salicylates < 0.3 mg/dL L mg/ dL (3-10) Urine Opiates Scre en Acetaminophen < 5.0 ug/mL L ug/ mL (10-30) Ur Barbiturates Sc reen Ur Phencyclidine S crn Ur Amphetamines Sc reen U Benzodiazepines Scrn Urine Cocaine Scre en U Marijuana (THC) Screen Ethyl Alcohol < 10 mg/dL mg/dL (0-10) 01/25/21 01/25/21 01/25/21 10:07 10:21 10:21 WBC RBC Hgb Hct MCV MCH MCHC RDW Plt Count MPV Neut % (Auto) Lymph % (Auto) [place] % (Auto) Eos % (Auto) Baso % (Auto) Neut # (Auto) Lymph # (Auto) [place] # (Auto) Eos # (Auto) Baso # (Auto) Nucleated RBC % (a uto) Nucleated RBCs # Sodium Potassium Chloride Carbon Dioxide Anion Gap BUN Creatinine GFR Calculation Glucose POC Glucose 134 mg/dL H mg/dL (70-110) Calculated Osmolal ity Calcium Magnesium Total Bilirubin AST ALT Alkaline Phosphata se Total Protein Albumin Globulin Urine Color Yellow (Yellow) Urine Appearance Clear (CLEAR) Urine pH 5 (5-7) Ur Specific Gravit y 1.025 (1.005-1.030) Urine Protein Neg (Negative) Urine Glucose (UA) Norm (Normal) Urine Ketones Negative (Negative) Urine Blood Neg (Negative) Urine Nitrate Negative (Negative) Urine Bilirubin 2+ H (Negative) Urine Urobilinogen Norm mg/dL mg/dL (Negative) Ur Leukocyte Riya ase Negative (Negative) Salicylates Urine Opiates Scre en Negative ng/mL ng /mL (Negative) Acetaminophen Ur Barbiturates Sc reen Negative ng/mL ng /mL (Negative) Ur Phencyclidine S crn Negative ng/mL ng /mL (Negative) Ur Amphetamines Sc reen Negative ng/mL ng /mL (Negative) U Benzodiazepines Scrn Negative ng/mL ng /mL (Negative) Urine Cocaine Scre en Negative ng/mL ng /mL (Negative) U Marijuana (THC) Screen Negative ng/mL ng /mL (Negative) Ethyl Alcohol 01/25/21 11:13 WBC RBC Hgb Hct MCV MCH MCHC RDW Plt Count MPV Neut % (Auto) Lymph % (Auto) [place] % (Auto) Eos % (Auto) Baso % (Auto) Neut # (Auto) Lymph # (Auto) [place] # (Auto) Eos # (Auto) Baso # (Auto) Nucleated RBC % (a uto) Nucleated RBCs # Sodium Potassium Chloride Carbon Dioxide Anion Gap BUN Creatinine GFR Calculation Glucose POC Glucose 120 mg/dL H mg/dL (70-110) Calculated Osmolal ity Calcium Magnesium Total Bilirubin AST ALT Alkaline Phosphata se Total Protein Albumin Globulin Urine Color Urine Appearance Urine pH Ur Specific Gravit y Urine Protein Urine Glucose (UA) Urine Ketones Urine Blood Urine Nitrate Urine Bilirubin Urine Urobilinogen Ur Leukocyte Riya ase Salicylates Urine Opiates Scre en Acetaminophen Ur Barbiturates Sc reen Ur Phencyclidine S crn Ur Amphetamines Sc reen U Benzodiazepines Scrn Urine Cocaine Scre en U Marijuana (THC) Screen Ethyl Alcohol EKG Data^: EKG 1: EKG interpretation date: 01/25/21 EKG interpretation time: 08:29 Computer generated interpretation: Reviewed EKG with Dr. Flanagan. Sinus rhythm left axis deviation QRS axis less than -30. Ventricular rate 64 bpm ND interval 19 2 ms QRS duration 119 ms QT is 432. Discharge Plan Discharge Patient Disposition: Admitted As Inpatient Admit Provider: Gerardo Knapp Clinical Impression: Altered mental status, Beta laura toxicity, TCA (tricyclic antidepressant) overdose of undetermined intent, Abnormal ECG Condition: Stable Coding Level of Care Code ED Gallery Or Museum Technician for Chg 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 Documented by User: Daphney Proctor MD 01/31/21 22:45 HPI - Psych General: Chief Complaint: Psychiatric Symptoms Stated Complaint: N/V, DIARRHEA, BLOOD IN STOOL Time Seen by Provider: 01/25/21 08:16 PFS ED PFSH: Medical History (Updated 01/26/21 @ 16:01 by Tab Colunga MD) Opiate misuse Schizophrenia Suicide attempt Ulcerative colitis Surgical History History of appendectomy Social History (Updated 01/09/21 @ 10:11 by Mich Madera MD) Smoking and tobacco status: current every day smoker Alcohol intake: never Procedures Central Line Placement Left Femoral: Time Out Performed: Yes Patient Placed on Monitor/Pulse Ox: Yes MD Prep: mask Central Line Prep: Povidone-Iodine 1% Ultrasound Used for Placement: Yes Central Line Lumen Inserted: double Post Procedure: sutured in place, good blood return, all ports aspirated, flushed, capped and sterile dressing applied Patient Tolerated Procedure: well Complications: none Additional Comments: double lumen dialysis line Course Vital Signs: Vital signs: Vital Signs Temperature 97.6 F 01/31/21 14:00 Pulse Rate 89 01/30/21 21:40 Respiratory Rate 16 01/31/21 21:58 Blood Pressure 106/75 01/30/21 21:40 Pulse Oximetry 100 01/30/21 21:40 MDM - Psych MDM Narrative: Medical decision making narrative: 35-year-old male presents emergency room after apparent overdose of doxepin, hydralazine, propranolol, and sertraline. While, patient was hemodynamically stable AOx3, answering questions appropriately however around 9 PM, patient was noted to be hypotensive and became altered. Patient had a blood pressure 70/40 that improved minimally with 20 mcg of Levophed to 80/50. Patient received aggressive fluid resuscitation with 8L (2L of NS and 6L of LR) through dialysis catheter, glucagon 5mg IV significant improvement in blood pressure. Patient is now awake and alert GCS 14, confused. Patient is on a sodium bicarb drip. QRS continues to widened on serial EKGs. Most notably recently, patient had a QRS 130. Off of leovphed now BP of 99/55 most recently. Patient will be admitted to the ICU for further work-up at this time. Case was discussed with [facility]. Disposition: ICU Lab Data: Labs: Lab Results 01/25/21 01/25/21 01/25/21 08:39 08:39 08:39 WBC 9.0 10^3/uL 10^3/ uL (4.0-10.0) RBC 5.31 10^6/uL H 10 ^6/uL (4.1-5.3) Hgb 15.6 g/dL g/dL (11.7-16.6) Hct 45.5 % % (42.0-52.0) MCV 85.7 fl fl (80-94) MCH 29.4 pg pg (28.0-34.0) MCHC 34.3 g/dL g/dL (30.0-36.0) RDW 12.5 % % (12.1-15.1) Plt Count 280 10^3/cmm 10^3 /cmm (130-400) MPV 9.8 fL fL (7.4-10.4) Neut % (Auto) 58.4 % % Lymph % (Auto) 28.0 % % [place] % (Auto) 6.6 % % Eos % (Auto) 6.5 % % Baso % (Auto) 0.3 % % Neut # (Auto) 5.25 10^3/uL 10^3 /uL (1.8-7.7) Lymph # (Auto) 2.5 10^3/uL 10^3/ uL (0.8-4.8) [place] # (Auto) 0.6 10^3/uL 10^3/ uL (0.2-0.9) Eos # (Auto) 0.6 10^3/uL 10^3/ uL (0.0-0.8) Baso # (Auto) 0.0 10^3/uL 10^3/ uL (0.0-0.1) Nucleated RBC % (a uto) 0 % % Nucleated RBCs # 0.0 /100WBC /100W BC Sodium 137 mmol/L mmol/L (136-145) Potassium 3.9 mmol/L mmol/L (3.5-5.1) Chloride 101 mmol/L mmol/L (98-107) Carbon Dioxide 24 mmol/L mmol/L (22-29) Anion Gap 15.9 (5-19) BUN 12 mg/dL mg/dL (6-20) Creatinine 0.8 mg/dL mg/dL (0.7-1.2) GFR Calculation 109.4 mL/min mL/m in (90-130) Glucose 163 mg/dL H mg/dL (65-115) POC Glucose Calculated Osmolal ity 287 mOsm/kg mOsm/ kg (285-295) Calcium 8.8 mg/dL mg/dL (8.5-10.5) Magnesium 1.6 mg/dL L mg/dL (1.7-2.3) Total Bilirubin 0.8 mg/dL mg/dL (0.15-1.2) AST 14 U/L U/L (0-40) ALT 12 U/L U/L (0-41) Alkaline Phosphata se 99 IU/L IU/L (40-130) Total Protein 7.2 g/dL g/dL (6.6-8.7) Albumin 4.3 g/dL g/dL (3.5-5.2) Globulin 2.9 g/dL g/dL (1.3-4.6) Urine Color Urine Appearance Urine pH Ur Specific Gravit y Urine Protein Urine Glucose (UA) Urine Ketones Urine Blood Urine Nitrate Urine Bilirubin Urine Urobilinogen Ur Leukocyte Riya ase Salicylates < 0.3 mg/dL L mg/ dL (3-10) Urine Opiates Scre en Acetaminophen < 5.0 ug/mL L ug/ mL (10-30) Ur Barbiturates Sc reen Ur Phencyclidine S crn Ur Amphetamines Sc reen U Benzodiazepines Scrn Urine Cocaine Scre en U Marijuana (THC) Screen Ethyl Alcohol < 10 mg/dL mg/dL (0-10) 01/25/21 01/25/21 01/25/21 10:07 10:21 10:21 WBC RBC Hgb Hct MCV MCH MCHC RDW Plt Count MPV Neut % (Auto) Lymph % (Auto) [place] % (Auto) Eos % (Auto) Baso % (Auto) Neut # (Auto) Lymph # (Auto) [place] # (Auto) Eos # (Auto) Baso # (Auto) Nucleated RBC % (a uto) Nucleated RBCs # Sodium Potassium Chloride Carbon Dioxide Anion Gap BUN Creatinine GFR Calculation Glucose POC Glucose 134 mg/dL H mg/dL (70-110) Calculated Osmolal ity Calcium Magnesium Total Bilirubin AST ALT Alkaline Phosphata se Total Protein Albumin Globulin Urine Color Yellow (Yellow) Urine Appearance Clear (CLEAR) Urine pH 5 (5-7) Ur Specific Gravit y 1.025 (1.005-1.030) Urine Protein Neg (Negative) Urine Glucose (UA) Norm (Normal) Urine Ketones Negative (Negative) Urine Blood Neg (Negative) Urine Nitrate Negative (Negative) Urine Bilirubin 2+ H (Negative) Urine Urobilinogen Norm mg/dL mg/dL (Negative) Ur Leukocyte Riya ase Negative (Negative) Salicylates Urine Opiates Scre en Negative ng/mL ng /mL (Negative) Acetaminophen Ur Barbiturates Sc reen Negative ng/mL ng /mL (Negative) Ur Phencyclidine S crn Negative ng/mL ng /mL (Negative) Ur Amphetamines Sc reen Negative ng/mL ng /mL (Negative) U Benzodiazepines Scrn Negative ng/mL ng /mL (Negative) Urine Cocaine Scre en Negative ng/mL ng /mL (Negative) U Marijuana (THC) Screen Negative ng/mL ng /mL (Negative) Ethyl Alcohol 01/25/21 11:13 WBC RBC Hgb Hct MCV MCH MCHC RDW Plt Count MPV Neut % (Auto) Lymph % (Auto) [place] % (Auto) Eos % (Auto) Baso % (Auto) Neut # (Auto) Lymph # (Auto) [place] # (Auto) Eos # (Auto) Baso # (Auto) Nucleated RBC % (a uto) Nucleated RBCs # Sodium Potassium Chloride Carbon Dioxide Anion Gap BUN Creatinine GFR Calculation Glucose POC Glucose 120 mg/dL H mg/dL (70-110) Calculated Osmolal ity Calcium Magnesium Total Bilirubin AST ALT Alkaline Phosphata se Total Protein Albumin Globulin Urine Color Urine Appearance Urine pH Ur Specific Gravit y Urine Protein Urine Glucose (UA) Urine Ketones Urine Blood Urine Nitrate Urine Bilirubin Urine Urobilinogen Ur Leukocyte Riya ase Salicylates Urine Opiates Scre en Acetaminophen Ur Barbiturates Sc reen Ur Phencyclidine S crn Ur Amphetamines Sc reen U Benzodiazepines Scrn Urine Cocaine Scre en U Marijuana (THC) Screen Ethyl Alcohol Critical Care Time Critical Care Time: Critical Care Time: Yes Total Critical Care Time: 50 Attestation: Given the high probability of imminent or life threatening deterioration of the patient?s condition without intervention, the patient was immediately assessed by myself and the nurse, and cardiac monitoring initiated. The patient was also placed on oxygen and continuous pulse oximetry initiated. During the course of the patient?s stay, I spent a considerable amount of time at the bedside performing serial re-evaluations of the patient?s hemodynamic and clinical status because of the recognized potential threat to life or limb in this condition. Clinical management of this patient involved high complexity decision making to assess, manipulate, and support vital organ system failure. I then had a chance to review all of the available laboratory and radiographic studies obtained today, and I also reviewed old records available to me at the time. Sequential vital signs were obtained. Critical care time noted below was time spent engaged in work directly related to the individual patient?s care, not including time performing procedures; however it does include time spent at the immediate bedside or elsewhere on the floor or unit. TOTAL CRITICAL CARE TIME ELAPSED: 55 minutes. BODY SYSTEM AT HIGHEST RISK: Cardiovascular Discharge Plan Discharge Patient Disposition: Admitted As Inpatient Admit Provider: Gerardo Knapp Clinical Impression: Altered mental status, Beta laura toxicity, TCA (tricyclic antidepressant) overdose of undetermined intent, Abnormal ECG Condition: Stable Coding Level of Care Code ED Gallery Or Museum Technician for Jordan Craft Exam Comprehensive
--- NOTE | 2021-01-25 09:13 | PC.NURSE ---
Poison Control called. RN states that she will fax info to ER. KIMBERLY notified of poison control recommending a mag level be added on to labs.
[2021-01-25 09:16] LABS: Alanine Aminotransferase 12 U/L (0-41); Albumin Level 4.3 g/dL (3.5-5.2); Alkaline Phosphatase 99 IU/L (40-130); Anion Gap 15.9 (5-19); Aspartate Amino Transferase 14 U/L (0-40); Blood Urea Nitrogen 12 mg/dL (6-20); Calcium 8.8 mg/dL (8.5-10.5); Carbon Dioxide 24 mmol/L (22-29); Chloride 101 mmol/L (98-107); Creatinine Clr Calc Pharmacy 143.8183; Globulin 2.9 g/dL (1.3-4.6); Glomerular Filtration Rate 109.4 mL/min (90-130); Glucose 163 mg/dL (65-115); Osmolality Calculated 287 mOsm/kg (285-295); Potassium 3.9 mmol/L (3.5-5.1); Sodium 137 mmol/L (136-145); Total Bilirubin 0.8 mg/dL (0.15-1.2); Total Protein 7.2 g/dL (6.6-8.7)
[2021-01-25 09:18] LABS: Acetaminophen < 5.0 ug/mL (10-30); Alcohol Level < 10 mg/dL (0-10); Salicylate < 0.3 mg/dL (3-10)
--- NOTE | 2021-01-25 09:18 | PC.NURSE ---
ERP notified of pt's hypotension. No new orders at this time.
[2021-01-25 09:20] LABS: Magnesium 1.6 mg/dL (1.7-2.3)
--- NOTE | 2021-01-25 09:35 | PC.NURSE ---
Treatment guides faxed over from Poison Control. ERP instructs to place in chart.
--- NOTE | 2021-01-25 09:55 | PC.NURSE ---
ERP notified of pt's BP. Awaiting orders.
--- NOTE | 2021-01-25 09:56 | PC.NURSE ---
Pt drowsy with slurred speech and unsteady on feet. ERP notified of changes.
[2021-01-25] MEDS: sodium chloride 0.9% 1,000 ML 999 ML IV ×2 (10:00→10:30)
--- NOTE | 2021-01-25 10:13 | CTR_ITS ---
PROCEDURE INFORMATION: Exam: CT Head Without Contrast Exam date and time: 01/25/2021 10:13 AM Age: 35 years old Clinical indication: Altered mental status/memory loss; Additional info: Overdose TECHNIQUE: Imaging protocol: Computed tomography of the head without contrast. Radiation optimization: All CT scans at this facility use at least one of these dose optimization techniques: automated exposure control; mA and/or kV adjustment per patient size (includes targeted exams where dose is matched to clinical indication); or iterative reconstruction. COMPARISON: No relevant prior studies available. RADIATION DOSE METRICS: Total DLP (mGy-cm): 1400.75 FINDINGS: Brain: No hemorrhage. No edema, mass effect or midline shift. Cerebral ventricles: No ventriculomegaly. Paranasal sinuses: Visualized sinuses are unremarkable. No fluid levels. Mastoid air cells: No mastoid effusion. Bones/joints: No acute fracture. Soft tissues: Unremarkable. CT/CT head wo con* [id number] IMPRESSION: No acute intracranial abnormality. Radiation Dose CTDIVOL = (mGy): DLP = 1400.75 (mGy-cm)
--- NOTE | 2021-01-25 10:25 | PC.NURSE ---
Pt's BP continues to decline. Dr. Proctor brought to bedside to assess. Liter of saline bolused in on rapid infuser and second line placed by psychopaedic nurse. Pt moved to room 10. Pt brought to CT at this time. Nurse accompanies pt to CT.
[2021-01-25 10:32] LABS: Glucose Point of Care 134 mg/dL (70-110)
[2021-01-25 10:40] LABS: Add Urine Microscopic? NO; Charge for UA Resulting for Rev
[2021-01-25 10:51] LABS: Bilirubin Urine 2+ (Negative); Blood Urine Neg (Negative); Glucose Urine UA Norm (Normal); Ketones Urine Negative (Negative); Leukocyte Esterase Urine Negative (Negative); Nitrate Urine Negative (Negative); Protein Urine Neg (Negative); Specific Gravity, Urine 1.025 (1.005-1.030); Urine Appearance Clear (CLEAR); Urine Color Yellow (Yellow); Urobilinogen Urine Norm (Negative); pH Urine 5 (5-7)
[2021-01-25 11:00] LABS: Amphetamines Screen Urine Negative (Negative); Barbiturates Screen Urine Negative (Negative); Benzodiazepines Screen Urine Negative (Negative); Cocaine Screen Urine Negative (Negative); Opiate Screen Urine Negative (Negative); PCP Screen Urine Negative (Negative); THC Screen Urine Negative (Negative)
--- NOTE | 2021-01-25 11:03 | PC.NURSE ---
Pharmacy states RN not allowed to mix drips and that he will bring them down himself. Pharmacy alerted that RN unable to pull glucagon due to insufficient quantity. Pharmacy states he will bring that also.
[2021-01-25 11:16] LABS: Glucose Point of Care 120 mg/dL (70-110)
[2021-01-25] MEDS: sodium bicarbonate 150 MEQ in dextrose 5% 1,000 ML 100 MEQ IV (11:16)
--- NOTE | 2021-01-25 13:13 | PC.NURSE ---
Called ERP to bedside to assess. Pt is easier to arouse and will respond to verbal stimuli. Vital signs have improved.
[2021-01-25] MEDS: lactated ringers 1,000 ML 999 ML IV (13:19)
--- NOTE | 2021-01-25 13:21 | PC.NURSE ---
ERP states to hold insulin drip, second levophed drip, and phenylephrine.
--- NOTE | 2021-01-25 13:25 | CTR_ITS ---
PROCEDURE INFORMATION: Exam: CT Abdomen And Pelvis With Contrast Exam date and time: 01/25/2021 1:25 PM Age: 35 years old Clinical indication: Abdominal pain; Generalized; Prior surgery; Surgery date: 6+ months; Surgery type: Appy; Patient HX: Abd pain ? od TECHNIQUE: Imaging protocol: Computed tomography of the abdomen and pelvis with contrast. Axial, coronal and sagittal reformatted images were created and reviewed. Radiation optimization: All CT scans at this facility use at least one of these dose optimization techniques: automated exposure control; mA and/or kV adjustment per patient size (includes targeted exams where dose is matched to clinical indication); or iterative reconstruction. Contrast material: OMNI 300; Contrast volume: 95 ml; Contrast route: INTRAVENOUS (IV); COMPARISON: CT abdomen pelvis w con* [id number] 11/12/2018 3:17 PM RADIATION DOSE METRICS: Total DLP (mGy-cm): 1743.49 FINDINGS: Lungs: Mild linear stranding and groundglass at the lung bases, likely due to atelectasis and/or scarring. Liver: Mild nonspecific periportal edema. Gallbladder and bile ducts: Questionable mild gallbladder wall thickening without radiodense gallstones. Pancreas: Subtle peripancreatic stranding and edema. No necrosis or hemorrhage. Spleen: Unremarkable. Adrenal glands: Normal. No mass. Kidneys and ureters: No mass. No radiodense calculi. No hydronephrosis. Stomach and bowel: Moderate amount of retained stool in the colon. No obstruction. No bowel wall thickening. No pneumatosis. Appendix: Status post appendectomy by history. Intraperitoneal space: No free fluid. No organized fluid collection. No free air. Vasculature: Unremarkable. No aneurysm. Lymph nodes: No pathologically enlarged lymph nodes. Urinary bladder: Moderate urinary bladder distention. Reproductive: Unremarkable. Bones/joints: No acute osseous abnormality. Soft tissues: Unremarkable. CT/CT abdomen pelvis w con* [id number] IMPRESSION: 1. Subtle peripancreatic stranding and edema, concerning for acute pancreatitis, as described above. Correlate with serum amylase and lipase levels. No drainable fluid collection. No necrosis or hemorrhage. 2. Questionable mild gallbladder wall thickening without radiodense gallstones. If there is persistent clinical concern for acute gallbladder pathology, ultrasound or HIDA scan would provide a more sensitive evaluation. 3. Additional findings, as above. Radiation Dose CTDIVOL = (mGy): DLP = 1743.49 (mGy-cm)
--- NOTE | 2021-01-25 13:59 | ECG_ITS ---
[facility] Test Date: 2021-01-25 Pat Name: Shayan Dickson Department: Room: Gender: Male Med Admin: : 1985 Requested By: Daphney Proctor Order Number: [id number] Reading MD: ARSENIO SALAS Measurements Intervals [place] Rate: 64 P: 44 NV: 192 QRS: -79 QRSD: 119 T: 46 QT: 432 QTc: 448 Interpretive Statements SINUS RHYTHM LEFT AXIS DEVIATION [QRS AXIS < -30] PATTERN CONSISTENT WITH PULMONARY DISEASE MODERATE INTRAVENTRICULAR CONDUCTION DELAY [110+ ms QRS DURATION] Compared to ECG 01/09/2021 06:49:59 Intraventricular conduction delay now present ST (T wave) deviation no longer present Electronically Signed On 01-26-2021 0:11:00 CDT by ARSENIO SALAS [id number] f
--- NOTE | 2021-01-25 14:00 | ECG_ITS ---
[facility] Test Date: 2021-01-25 Pat Name: Shayan Dickson Department: Room: Gender: Male Regional Cra: : 1985 Requested By: Daphney Proctor Order Number: [id number] Reading MD: ARSENIO SALAS Measurements Intervals [place] Rate: 60 P: 52 [place]: 195 QRS: -77 QRSD: 125 T: 53 QT: 473 QTc: 475 Interpretive Statements SINUS RHYTHM LEFT AXIS DEVIATION [QRS AXIS < -30] MODERATE INTRAVENTRICULAR CONDUCTION DELAY [110+ ms QRS DURATION] PROLONGED QT INTERVAL Compared to ECG 01/25/2021 08:29:28 Prolonged QT interval now present Electronically Signed On 01-26-2021 0:10:56 CDT by ARSENIO SALAS [id number]
--- NOTE | 2021-01-25 14:01 | ECG_ITS ---
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: : 1985 Requested By: Daphney Proctor Order Number: [id number] Reading MD: ARSENIO SALAS Measurements Intervals [place] Rate: 57 P: 57 [place]: 189 QRS: -75 QRSD: 123 T: 57 QT: 476 QTc: 464 Interpretive Statements SINUS BRADYCARDIA LEFT AXIS DEVIATION [QRS AXIS < -30] MODERATE INTRAVENTRICULAR CONDUCTION DELAY [110+ ms QRS DURATION] PROLONGED QT INTERVAL Compared to ECG 01/25/2021 10:50:21 Sinus rhythm no longer present Electronically Signed On 01-26-2021 0:10:53 CDT by ARSENIO SALAS [email or web address].Telespree/store/NU/[id number]/[id number] f
--- NOTE | 2021-01-25 14:01 | ECG_ITS ---
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: : 1985 Requested By: Daphney Proctor Order Number: [id number] Reading MD: ARSENIO SALAS Measurements Intervals [place] Rate: 81 P: 68 [place]: 211 QRS: -87 QRSD: 130 T: 67 QT: 433 QTc: 504 Interpretive Statements SINUS RHYTHM WITH FIRST DEGREE AV BLOCK LEFT AXIS DEVIATION [QRS AXIS < -30] MODERATE INTRAVENTRICULAR CONDUCTION DELAY [110+ ms QRS DURATION] PROLONGED QT INTERVAL Compared to ECG 01/25/2021 11:21:58 First degree AV block now present Sinus bradycardia no longer present Electronically Signed On 01-26-2021 0:10:48 CDT by ARSENIO SALAS [email or web address].Smove/store/NU/[id number] f
[2021-01-25] MEDS: iohexol 300 mg/mL 100 mL Btl IV (14:05)
[2021-01-25 14:15] LABS: Anion Gap 9.9 (5-19); Blood Urea Nitrogen 11 mg/dL (6-20); Calcium 7.8 mg/dL (8.5-10.5); Carbon Dioxide 25 mmol/L (22-29); Chloride 107 mmol/L (98-107); Glomerular Filtration Rate 127.6 mL/min (90-130); Glucose 152 mg/dL (65-115); Osmolality Calculated 288 mOsm/kg (285-295); Potassium 3.9 mmol/L (3.5-5.1); Sodium 138 mmol/L (136-145)
--- NOTE | 2021-01-25 14:23 | PM.HP ---
Providers/Chief Complaint Admitting Physician: Gerardo Knapp MD Chief Complaint: N/V, DIARRHEA, BLOOD IN STOOL History of Present Illness Shayan Dickson is a 35 year old male with past medical history of bipolar disorder, psychosis, was brought in with chief complaint of active hallucination, going on for quite some time, according to the patient he was hearing voices last night, after which he took all his home medications. It is difficult to exactly say how much of all his medication he took but likely he took 30 tablets of Doxepin 25 Mg each, 30 Tablets of Sertraline 50 mg each, 100 of Hydroxyzine 50 mg each, 75 tablets of propranolol 20 mg. He is exhibiting active suicidal ideation, wants to kill himself. Initially on arrival in the ER he was hemodynamically stable and alert, but quickly his status changed, became altered, as well as extremely hypotensive, ER physician placed a dialysis catheter, and gave massive IV fluid transfusion, he got 8 Ls of total IV fluids in the ER, then he was later started on bicarb drip, he also got glucagon in the ER, serial EKG monitoring was done.Patient was requiring Levophed to maintain his blood pressure. CT head without contrast: Failed to show any acute intracranial pathology. CT abdomen pelvis w con:Subtle peripancreatic stranding and edema, concerning for acute pancreatitis. Pertinent labs: WBC 9T, H&H:15/45, PLT : 280, serum sodium 138, serum potassium 3.9, BUN and serum creatinine:11/0.7, random blood sugar:163, serum magnesium:1.6, AST 14 ALT 12 ALP 99. Urinalysis: Clean, U tox:NORMAL Review of Systems Const: Denies: fever(s) or chills Card: Denies: dyspnea on exertion, orthopnea or leg pain with exertion Resp: Denies: dyspnea GI: Denies: nausea, vomiting, diarrhea or constipation : Denies: flank pain Musc: Denies: back pain, extremity pain or extremity swelling Neuro: Denies: headache(s), difficulty walking or confusion Medications/Allergies Home Medications Medication Instructions Recorded Confirmed Last Taken Type doxepin 25 mg PO BEDTIME 30 Days #30 cap 01/19/21 01/25/21 Unknown Rx hydroxyzine pamoate 50 mg PO Q6H PRN 30 Days #180 cap 01/19/21 01/25/21 Unknown Rx propranolol 20 mg PO TID PRN 30 Days #90 tab 01/19/21 01/25/21 Unknown Rx sertraline 50 mg PO DAILY 30 Days #30 tab 01/19/21 01/25/21 Unknown Rx ziprasidone HCl 80 mg PO 0700,1700 30 Days #120 cap 01/19/21 01/25/21 Unknown Rx Allergies Allergy/AdvReac Type Severity Reaction Status Date / Time mushroom Allergy Unknown Unknown Verified 01/09/21 08:19 escitalopram [From Lexapro] Allergy ALGY-Anaphy Verified 01/09/21 08:19 laxis NSAIDS (Non-Steroidal Allergy ADR-Abdominal Verified 01/09/21 08:19 Anti-Inflamma Pain venlafaxine [From Effexor] Allergy ALGY-Anaphy Verified 01/09/21 08:19 laxis PFSH Acute PFSH: Medical History (Updated 01/25/21 @ 20:03 by Gerardo Knapp MD) Opiate misuse Schizophrenia Suicide attempt Ulcerative colitis Surgical History History of appendectomy Social History (Updated 01/09/21 @ 10:11 by Mich Madera MD) Smoking and tobacco status: current every day smoker Alcohol intake: never Vitals/I&O/Wt Last Vital Signs Temp 98.7 F 01/25/21 08:26 Pulse 72 01/25/21 13:33 Resp 16 01/25/21 13:33 BP 102/64 01/25/21 13:33 Pulse Ox 93 01/25/21 13:33 Weight last 48 hrs Weight 86.183 kg Physical Exam Narrative: EXAM NARRATIVE: Alert awake and oriented HENMT: COMMON NORMALS: normocephalic and atraumatic HEAD & SCALP: normocephalic and atraumatic Chest: CHEST: Yes Symmetrical chest wall rise Resp: COMMON NORMALS: clear to auscultation bilaterally EFFORT & INSPECTION: Yes symmetric chest movement AUSCULTATION: clear to auscultation bilaterally Cardio: COMMON NORMALS: regular rate, regular rhythm, S1 normal heart sound present, S2 normal heart sound present, No gallops present (Cardio), No murmurs present (Cardio), No rub (Cardio) and Peripheral pulses 2+ throughout RATE: regular rate RHYTHM: regular rhythm HEART SOUNDS: S1 normal heart sound present and S2 normal heart sound present PERIPHERAL PULSES: Peripheral pulses 2+ throughout GI: COMMON NORMALS: Normal to inspection, nondistended, normoactive bowel sounds present AUSCULTATION: Yes normoactive bowel sounds PALPATION: Yes No hepatosplenomegaly present RECTAL EXAM: Yes deferred OTHER: RUQ and epigastric tenderness present Extremity: COMMON NORMALS: no clubbing, cyanosis or edema and no pedal edema Data : 01/25/21 08:39 01/25/21 13:55 A&P Assessment and plan (1) Beta laura toxicity: Status: Acute (2) TCA (tricyclic antidepressant) overdose of undetermined intent: Status: Acute (3) Psychosis: Status: Chronic (4) Acute pancreatitis: Status: Acute (5) Cluster B personality disorder: Status: Chronic (6) Bipolar depression: Status: Chronic Additional A&P Information Current goal of above polysubstance toxicity:Is to continue supportive care. Continue Levophed for now to maintain a MAP greater than 65. Continue IV hydration with NS at 75 cc an hour. Electrolyte replacement. Serial EKG telemetry monitoring. Bicarb drip has been stopped. Acute pancreatitis: Patient denies any alcohol use, CT abdomen and pelvis: Inconclusive for any gallbladder pathology: Follow ultrasound abdomen Cannot conclusively rule out drug-induced acute pancreatitis. Continue supportive care: N.p.o. Pain control. CT abdominal has failed to show any necrosis.We will hold off on antibiotics for now. Currently on 96-hour hold. Psychiatry consulted Poison control on board. DVT prophylaxis: On Lovenox CODE STATUS: Full code Attestations Medical Necessity Statement*: Patient needs to be in hospital for management of above defined problems. Anticipated length of stay greater than 2 midnights. Coding Level of Care Code Acute Financial Institution Manager for Chg Fwd Diagnoses Beta laura toxicity TCA (tricyclic antidepressant) overdose of undetermined intent T43.014A Psychosis F29 Acute pancreatitis K85.90 Cluster B personality disorder F60.89 Bipolar depression F31.9
[2021-01-25] MEDS: magnesium sulfate premix 2 GM/50 ML PIGGYBACK IV (15:40)
[2021-01-25] MEDS: enoxaparin 40 mg/0.4 mL Syringe SUBCUT (15:43)
--- NOTE | 2021-01-25 15:49 | PC.NURSE ---
ICU nurse received patient from ER staff. Patient is lethargic, unable to properly assess if he can answer orientation questions as he speech is very mumbled. Was able to make out that he is oriented to self at least. Vitals are: BP: 132/69, HR: 81, SPO2: 94%RR: 22. temp: 97.8.
--- NOTE | 2021-01-25 15:53 | PC.NURSE ---
Patient has had a total of 8L boluses in the ER and has not voided. Bladder scan shows retention of greater than 1 liter. Patient attempted to urinate into a urinal, but was only able to produce 300mL total after [address] michaels and recieved an order for a light catheter. Nurse explained the light catheter procedure to the patient and the patient is refusing. Nurse has explained the importance and the reasoning for the light placement but patient still refuses. Nurse has asked patient to repeat the risks of not getting the light and he is unable to repeat. He either falls asleep while talking, or cannot remember what was said. Patient is unable to verbalize where he is, the date, or situation due to inability to remain awake and confusion. Patient is unable to make competent decisions at this time due to mental status. Per Dr Michaels, continue with light placement. Patient was resisting and attempting to hit nurses and pull out lines. Code [address] michaels and security at bedside. received an order for restraints. 16fr light catheter placed. 1700mL of urine drained due to catheter.
[2021-01-25 16:31] LABS: Glucose Point of Care 113 mg/dL (70-110)
--- NOTE | 2021-01-25 18:30 | ECG_ITS ---
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: : 1985 Requested By: Gerardo Knapp Order Number: [id number] Reading MD: ARSENIO SALAS Measurements Intervals [place] Rate: 65 P: 64 [place]: 199 QRS: -66 QRSD: 121 T: 58 QT: 461 QTc: 482 Interpretive Statements SINUS RHYTHM LEFT AXIS DEVIATION [QRS AXIS < -30] MODERATE INTRAVENTRICULAR CONDUCTION DELAY [110+ ms QRS DURATION] PROLONGED QT INTERVAL Compared to ECG 01/25/2021 13:04:43 First degree AV block no longer present Electronically Signed On 01-26-2021 0:15:42 CDT by ARSENIO SALAS [email or web address] [email or web address]/store/[id number]
[2021-01-25 18:50] LABS: Lipase 20 U/L (13-60)
[2021-01-25 18:51] LABS: Lactate (Lactic Acid level) 0.6 mmol/L (0.5-2.2)
--- NOTE | 2021-01-25 19:31 | PC.NURSE ---
HOme meds put into Collect.its. 4 empty bottles consisted of propranolol, Hydroxyzpam, DOxepin, and sertraline. And a bottle og Ziprasidone containing 53 capsules.
--- NOTE | 2021-01-25 19:39 | PC.NURSE ---
Patient is on a 96 hour hold. Notice of rights of involuntary patient has been filled out, read to the patient, and a copy provided to the patient.
[2021-01-25] MEDS: morphine 4 mg/mL SDV 1 mL 2 MG IVP (20:04)
[2021-01-25] MEDS: sodium chloride 0.9% 1,000 ML 75 ML IV (20:06)
--- NOTE | 2021-01-25 22:30 | ECG_ITS ---
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: : 1985 Requested By: Gerardo Knapp Order Number: [id number] Reading MD: ARSENIO SALAS Measurements Intervals [place] Rate: 65 P: 53 [place]: 198 QRS: -60 QRSD: 113 T: 37 QT: 460 QTc: 479 Interpretive Statements SINUS RHYTHM LEFT AXIS DEVIATION [QRS AXIS < -30] INCOMPLETE RIGHT BUNDLE BRANCH BLOCK [90+ ms QRS DURATION, TERMINAL R IN V1/V2, 40+ ms S IN I/aVL/V4/V5/V6] PROLONGED QT INTERVAL Compared to ECG 01/25/2021 18:09:32 Incomplete right bundle-branch block now present Intraventricular conduction delay no longer present Electronically Signed On 01-26-2021 21:59:39 CDT by ARSENIO SALAS [email or web address].[employer]/store/OM/[id number]
[2021-01-26] VITALS (92 sets, daily range): BP systolic 81–112; BP diastolic 46–70; PULSE 63–139; RESP 10–35; TEMP 36.4–37.1; O2SAT 88–100
[2021-01-26] MEDS: lanolin oint 7 gm 1 APPLIC TOPICAL (00:27)
[2021-01-26] MEDS: morphine 4 mg/mL SDV 1 mL 2 MG IVP ×4 (01:30→19:09)
[2021-01-26 01:45] LABS: Glucose Point of Care 108 mg/dL (70-110)
--- NOTE | 2021-01-26 06:00 | US_ITS ---
WS: [id number] ULTRASOUND ABDOMEN LIMITED CLINICAL INFORMATION: RUQ Pain COMPARISON: None. FINDINGS: Liver Size: Mild hepatomegaly Craniocaudal length: 13.5 cm. Echogenicity: Coarse Surface nodularity: None. Mass (size and location): None. Bile ducts Intrahepatic ducts: Normal. Common bile duct diameter: 0.4 cm. Gallbladder Mild gallbladder wall thickening. Gallstones: None. Gallbladder sludge: None. Gallbladder wall thickenin.6 mm Pericholecystic fluid: None. Sonographic Christianson sign: Absent. Pancreas Normal as visualized. Right kidney: Normal. Hydronephrosis: None. Size: 9.5 cm x 5.4 cm x 4.8 cm. Abdominal aorta and IVC Visualized portions are normal. Ascites: None. US/US abdomen limited 25868 IMPRESSION: 1. Mild gallbladder wall thickening with edema measuring 5.6 mm. Gallbladder i s somewhat contracted. No cholelithiasis. This may be due to hepatic disease. G allbladder function could be further evaluated with HIDA scan. 2. Normal common bile duct. 3. Mild hepatomegaly with coarse echogenicity suspicious for parenchymal disea se. Recommend correlation with liver function tests and hepatic disease. 4. No hydronephrosis in right kidney.
[2021-01-26 06:34] LABS: Glucose Point of Care 97 mg/dL (70-110)
[2021-01-26 07:00] LABS: Basophils % 0.2 %; Eosinophils # 0.4 10^3/uL (0.0-0.8); Eosinophils % 4.1 %; Hematocrit 35.8 % (42.0-52.0); Lymphocytes # 1.2 10^3/uL (0.8-4.8); Lymphocytes % 12.1 %; Mean Corpuscular HGB Conc 33.5 g/dL (30.0-36.0); Mean Corpuscular Hemoglobin 28.7 pg (28.0-34.0); Mean Corpuscular Volume 85.6 fl (80-94); Mean Platelet Volume 10.2 fL (7.4-10.4); Monocytes # 0.8 10^3/uL (0.2-0.9); Neutrophils # 7.59 10^3/uL (1.8-7.7); Neutrophils % 75.4 %; Nucleated Red Blood Cells % 0 %; Platelet Count 186 10^3/cmm (130-400); Red Blood Count 4.18 10^6/uL (4.1-5.3); Red Cell Distribution Width 12.5 % (12.1-15.1); White Blood Count 10.1 10^3/uL (4.0-10.0)
[2021-01-26 07:08] LABS: Alanine Aminotransferase 8 U/L (0-41); Albumin Level 3.3 g/dL (3.5-5.2); Alkaline Phosphatase 75 IU/L (40-130); Anion Gap 10.7 (5-19); Aspartate Amino Transferase 10 U/L (0-40); Blood Urea Nitrogen 7 mg/dL (6-20); Carbon Dioxide 27 mmol/L (22-29); Chloride 106 mmol/L (98-107); Globulin 1.9 g/dL (1.3-4.6); Glomerular Filtration Rate 152.4 mL/min (90-130); Glucose 80 mg/dL (65-115); Magnesium 1.6 mg/dL (1.7-2.3); Osmolality Calculated 287 mOsm/kg (285-295); Phosphorus 2.2 mg/dL (2.5-4.5); Potassium 3.7 mmol/L (3.5-5.1); Sodium 140 mmol/L (136-145); Total Bilirubin 1.2 mg/dL (0.15-1.2); Total Protein 5.2 g/dL (6.6-8.7)
--- NOTE | 2021-01-26 07:59 | PC.NURSE ---
Shift Note Frequent safety and comfort rounds continue. Orders and/or nursing care completed as indicated. Patient monitored for response to intervention and treatment(s). Education provided includes[suicide prevention, fall risk, and cardiac/blood pressure monitoring]. Patient and/or treasury representative [pt verbally states he understands]. Will continue to monitor. Received bed side shift report from off going nurse. Pt's plan of care reviewed. Pt is alert and oriented and able to make his own decisions. Pt resting in bed watching tv. Respirations are even and unlabored. No s/sx of distress noted. Pt c/o moderate right upper quadrant pain. Pt has prn pain medication for pain management. Pt denies any other pains or concerns at this time. Pt denies any thoughts of self harm or harm to other at this time. Pt appears to be in a pleasant mood. Bed in lowest and locked position, call light and water within reach, x's 2 rails up. Will continue to monitor pt.
--- NOTE | 2021-01-26 08:12 | ECG_ITS ---
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1985 Requested By: Tab Colunga Order Number: [id number] Reading MD: ARSENIO SALAS Measurements Intervals [place] Rate: 74 P: 64 [place]: 189 QRS: -61 QRSD: 106 T: 42 QT: 324 QTc: 361 Interpretive Statements SINUS RHYTHM LEFT AXIS DEVIATION [QRS AXIS < -30] PATTERN CONSISTENT WITH PULMONARY DISEASE INCOMPLETE RIGHT BUNDLE BRANCH BLOCK [90+ ms QRS DURATION, TERMINAL R IN V1/V2, 40+ ms S IN I/aVL/V4/V5/V6] Compared to ECG 01/26/2021 00:25:03 Prolonged QT interval no longer present Electronically Signed On 01-26-2021 21:56:34 CDT by ARSENIO SALAS [email or web address].CybEye/store/[id number]
[2021-01-26] MEDS: magnesium sulfate premix 2 GM/50 ML PIGGYBACK IV (09:00)
[2021-01-26] MEDS: sodium chloride 0.9% 1,000 ML 75 ML IV ×2 (09:00→22:16)
--- NOTE | 2021-01-26 09:11 | PC.CHAP ---
Pastoral Care Encounter/Spiritual Assessment Type of Contact [] Declined hazard waste handler visit [] Patient/Family/Request visit [] Outpatient visit [] Follow-up visit [] Physician referral [] Code/Alert [x] Routine visit [] Staff referral [] Actively dying [] Patient sleeping [] Family support [] [] Out of room [] Palliative care [] [] Receiving care in room [] Pre-surgical visit [] Trauma [] Long length of stay [x] ICU visit [x] Other: sitter/ not social Relational/Emotional Strength [] Patient feels connected with others/family/visitors/staff [] Distress [] Loneliness/isolation [] Abandonment Spirituality of Patient [] Person of Janneth [] Attends Denominational of their Janneth [] Believes in Prayer [] Reads Bible or Congregational materials [] There are Spiritual issues to be addressed Gear Grinder Interventions [x] Prayer [] Active listening [] Non-anxious presence [] Spiritual/emotional support [] Crisis/trauma care [] Spiritual counseling [] Bereavement support [] Provided bereavement packet [] Provided Bible/devotional materials [] Provided toy/stuffed animal, coloring book to patient or family member [] Provided Communion [] Anointing/[place] [] Salvation [x] Completed spiritual assessment [] Other: Impact on Illness or Injury [] Angry [] Fearful [] Anxious [] Often cries [] Exhaustion [] Unable to work [] Unable to attend anabaptist [] Unable to walk/stand [] Unable to read [] Unable to drive [] Unable to eat/drink [] Unable to sleep [] Unable to be with family [] Patient intubated [] Other: Summary Time spent with patient
[2021-01-26 11:45] LABS: Glucose Point of Care 83 mg/dL (70-110)
--- NOTE | 2021-01-26 14:15 | ECG_ITS ---
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: : 1985 Requested By: Tab Colunga Order Number: [id number] Reading MD: ARSENIO SALAS Measurements Intervals [place] Rate: 72 P: 58 [place]: 182 QRS: -57 QRSD: 106 T: 39 QT: 342 QTc: 374 Interpretive Statements SINUS RHYTHM LEFT AXIS DEVIATION [QRS AXIS < -30] PATTERN CONSISTENT WITH PULMONARY DISEASE Compared to ECG 01/26/2021 09:16:37 Incomplete right bundle-branch block no longer present Electronically Signed On 01-26-2021 21:58:59 CDT by ARSENIO SALAS [email or web address] [facility].S[employer] It [employer] Check/store/[id number]
--- NOTE | 2021-01-26 14:34 | P.NPUHP_ITS ---
Providers/Chief Complaint Admitting Physician: Gerardo Knapp MD Chief Complaint: N/V, DIARRHEA, BLOOD IN STOOL HPI NPU History of Present Illness Shayan Dickson is a 35 year old male who presented to the emergency department with the following report: Chief Complaint: Psychiatric Symptoms Stated Complaint: N/V, DIARRHEA, BLOOD IN STOOL Time Seen by Provider: 01/25/21 08:16 History of Present Illness: HPI Narrative: Patient states that he was having a lot of hallucinations been going on for quite a while and he took his pills last night. Hard to determine how many pills are were. Patient said he threw up soon afterwards. He presents here with suicide attempt and with vital signs stable , conversing normally. Does not appear in any acute distress. Said he felt nauseated earlier in the morning hours. The suicide attempt happened approximately 8 hours ago. MD complaint: suicidal ideation and feels depressed Onset (ago): year(s) History of same: Yes Associated psychiatric symptoms: depression, suicidal ideation, auditory hallucinations and visual hallucinations Associated symptoms: Reports auditory hallucinations, visual hallucinations, depression and suicidal ideation. He was admitted to the ICU for definitive treatment of the sequela from his overdose. A psychiatric consult was requested. Shayan presents today appearing as he normally does on presentation. Significant laissez-faire for his circumstance. He had no real explanation for his behavior. There was no antecedent event or nidus for his suicide attempt. He just reported that I'm suicidal I guess. He denies any them but that his uncle's house. He continues to be isolated and does not have any friends. This intensive suicidal gesture somewhat like the last 1 has been atypical for his history as a psychiatric patient. He reports that his voices Geo Serrano. However we discussed concerns that this may be related to his cluster B pathology and outside of his cognitive appreciation. He denied any changes in his life certainly none since his discharge January 19, 2021. But he is appearing less and less safe outside of the hospital. An excerpt of his last discharge note is included below for context as he denies any substantive changes. Per his 01/19/2021 [facility] psychiatric discharge summary: SI - STATES ATTEMPT MADE Brief History: Shayan Dickson is a 35 year old male who presented to the emergency department with the following report: Chief Complaint: Overdose Stated Complaint: SI - STATES ATTEMPT MADE Time Seen by Provider: 01/09/21 06:58 History of Present Illness: HPI Narrative: 35-year-old male presents emergency room states he took 30 Ambien last night 10 mg tablets note for 5:00 this morning took 66 mg tablets of Invega. He did not feel like it was effective in his attempts to kill himself so he then ingested a razor blade that he had been using to try to cut his left wrist there is superficial abrasions on the left wrist. Denies any hematemesis coffee-ground emesis he has presented to our emergency room in the past with ingestion of razor blades. MD complaint: intentional overdose Onset (ago): hour(s). He was admitted to the hospital for definitive treatment of those issues which included going to the OR and getting the razor cartridge removed which has been a behavior he has done for multiple times without known him since 2018 and tablets of medications were also removed during that ER visit. He was then monitored in the ICU and then transferred to the neuropsychiatric unit for definitive treatment of those issues. Today he presents with very limited hi storical information and is not really interested in speaking to me today. He had no clear reasoning behind his behavior at this point but also was very resistant to the conversation. We discussed the plan to hold his medications at least for the next day or so until we see how he responds to the over dosing of those medications and agreed that we would go from there. An excerpt of his last hospitalization which occurred in November is included below for context. Per his 12/17/2020 [facility] inpatient psychiatric evaluation: History of Present Illness Shayan Dickson is a 35 year old male who presented to the ED with the following report: Chief Complaint: Psychiatric Symptoms Stated Complaint: SI Time Seen by Provider: 12/16/20 08:45 History of Present Illness: HPI Narrative: 35-year-old male presents emergency room stating take 80 tablets of aspirin last night around 2 PM yesterday which makes it about 20 hours ago. He took some other pills along with that that were not labeled. He does state he was trying to kill himself. He states he had auditory hallucinations of voices telling him to kill himself. He has not had any hematemesis or coffee-ground emesis no hematochezia no melena. He denies any dysuria urgency or frequency. He has tried to harm himself in the past. Evidently this was precipitated by some relationship issues. MD complaint: suicidal ideation and feels depressed Duration: constant History of same: Yes Relieving factors: none Exacerbating factors: none Context: not taking psychiatric medications and significant life stressor Associated psychiatric symptoms: depression, suicidal ideation, auditory hallucinations and visual hallucinations Associated symptoms: Reports auditory hallucinations, depression and suicidal ideation; Deny visual hallucinations, delusions, homicidal ideation or racing thoughts Treatments prior to arrival: none If self harm: admits thoughts of self harm, has plan and has acted on plan. Agreed to the neuropsychiatric unit for definitive treatment of those issues. Patient is well-known to this life underwriter and to the unit from multiple hospitalizations with the last one being in August of this year. Excerpt of that note is included below for context and as he denies substantive changes. He does endorse however that he has not been back on his medication for reasons that he could not clarify. But he has been off of the medication and not doing as well he reports. He reports that his living arrangement is still fairly stable and he was worried that he was going continue with the suicidal thoughts he was having and so he went to come to the hospital, get restarted on his medication have his suicidality myron and get back on track overall with treatment. Part of his concern what some of the medication was helpful some of it he did not feel was. We agreed we would review his chart and try to get a sense of what direction we might go in the treatment particularly with bipolar disorder. Per his 09/11/2020 [facility] inpatient psychiatric evaluation: History of Present Illness Shayan Dickson is a 35 year old male who presented to the emergency department with the following report: Chief Complaint: Overdose Stated Complaint: SI Time Seen by Provider: 09/10/20 10:40 History of Present Illness: HPI Narrative: Patient is a 35-year-old male who comes to the ED with SI and overdose. Patient says around 5 AM today he took approximately 120 tablets of Tylenol p.m. to kill himself. Patient has history of schizophrenia. He states that he has been suicidal in the past and that currently he is hearing voices that are telling him to kill himself. He states he has been currently taking his psych meds as prescribed but over the last week he feels like they have been helping him. This past week he is hearing the voices more and more. He denies any visual hallucinations or HI. He endorses having a little bit of nausea currently but no other symptoms. Associated symptoms: Reports auditory hallucinations and suicidal ideation; Deny visual hallucinations or homicidal ideation. He was admitted to the neuropsychiatric unit for definitive treatment of those issues. Shayan presents today reporting that he had left ear over a year ago and went down to a friend's place in another state had been doing fairly well. He reports that his uncle started having problems never brought him back. He reports that the reason why he came in was that his voices were increasing and he needed to have some treatment for that. We reviewed his medications and the different ones he had been on identify something he could try. He reports the Zyprexa has been effective for him but that at some point after he left this with him over the Thorazine and the Thorazine stopping helpful. He also was very focused on Suboxone reporting that he is been taking it and he started to have withdrawal symptoms secondary to it not being prescribed. We were able to review his records and determined that he had not had an active prescription at this time. Explained to him our policy only prescribing Suboxone to people with active prescription he had already stated he had the medication available at home but then was very elusive about having somebody bring it to substantiate his claim that he has been taking less to preserve it as he tried to get an appointment. We discussed the risk-benefit alternatives of a trial of Geodon and he understood agreed proceed as documented in his note. He denied any substantive changes in his psychosocial history outside [place] so an excerpt from his previous note is included below. Per his 09/17/2019 [facility] inpatient psychiatric eval: History of Present Illness Shayan Dickson is a 34 year old male Shayan presented to the emergency room reporting a decompensation and wanting to secondary to running out of his medications. 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 He reports that the medications that had been started in his last hospitalization were working fine and he was feeling optimistic about things, continuing to go in the right direction and improve, but as he got further away from them not being able to refill his medications, he started feeling worse and worse, and now he just reports that he is fed up with life and wanting to kill himself. He was admitted to the neuro- psychiatric unit for definitive treatment of those issues. We continued his current medications and agreed to do some investigation into his medications which were discontinued secondary to availability to make sure that it is not something that will prevent that in the future as well. We agreed that if we were able to identify that it was a glitch, that we would restart those medications and if we identify that it was going to be a problem moving forward, we would attempt an alternative treatment plan. He understood and agreed to proceed as is documented in this note. We reviewed his last hospitalization record from 06-25-19 and he denied any substantive changes since that time. An excerpt of that evaluation is included below. Per his last [facility] IP eval 06/25/2019: HPI NPU History of Present Illness Shayan Dickson is a 34 year old male who presents today reporting that he is doing okay. He reports that his Zyprexa was discontinued, but he could give no explanation for why that was the case. We discussed his repeat behavior from October of last year which was swallowing the ends of a couple BIC razors, which had already been used, and were fairly dull in this reported suicide attempt. He could not move away from the fact that it was a real and valid attempt and not some kind of gesture. He reported that he thought that if he took those that they would slice him but to be clear these were not actual razorblades that were open. This was little plastic tops of cheap razors that had double blades in them, but they are kind of contained in the plastic so there is some risk, but not extreme risk. The surgeon went in and took them out and had them sent away for testing. We discussed the fact that he does have intellectual disability within special education classes in school, has limited functioning in that way. He continues to live with his uncle and his five dogs. He reports that he will never do this thing with the razors again. We talked about the fact that if he did in fact succeed, that his dogs would be left alone. He reported that he thought about that, but there seemed to be limited connectivity. We reviewed his most recent psychiatric evaluation here and he denied any substantive changes in the history or psychosocial circumstances. Per recent [facility] eval 05/17/2019: HPI NPU History of Present Illness Chief complaint: the voices are so bad that I'm going to kill myself. History of present illness: Shayan Dickson is a 34 year old male who tells an undocumented fairly reasonable story of a life lived suffering auditory hallucinations to varying degrees. When he is doing well, he will hear muttering voices that do not cause him a great deal of difficulty. He states that he seldom is free of the voices. HE deons not report taking medication for this problem on a senior care or regular basis. 3 months ago, the voices began getting worse. He is has no theory as to why they have gotten worse. 3 weeks ago, they began getting intrusive to the point where he was willing to end his life just to free himself from the torture from these voices. He hears a number of different voices. He is able to i nterpret who they are. They are from important people in his life. These include a woman that he knows and Her boyfriend, his stepbrother and his . they Say demeaning things in a very loud manner. They tell him that he should and they tell him how he should kill himself. in spite of having struggled with during much of his life, he cannot give any guidance as to what interventions have been helpful. He said that he took lithium for a while and it was quite helpful. However it stopped working. It is noted that he was hospitalized here in October 2018 and was discharged on a combination of Suboxone, Zyprexa, and citalopram. He can give no assessment as to whether the Zyprexa helped him with his voices. He says that if the voices are reduced, he will no longr be suicidal. He is ambivalent about symptoms of depression. He says that he does not do anything enjoyable and simply passes this time when his phone and taking care of animals around his arm. He reports good sleep. He has no specific suicide plan this time. He said suicide thoughts were proceeded by the worsening of the voices. His urine drug screen is negative. He is actively taking the Suboxone and rece evie it from an outpatient therapist. However he has not continued his medications otherwise from discharge in October 2018. Mental health history: history of this patient was very difficult to acquire. He talks very rapidly and in the low mumbling fashion. His thoughts are mildly disorganized.he reports that originally he grew up in [place] and that at one point he left a rehabilitation program there and moved to [place]. He was only in [place] for 3 months when there were some financial difficulties and he came to the [facility] in 2010. He gives no further history regarding mental health care. It is noted that he can give no advisement regarding any other medication trials that have had any effect positive for negative on his auditory hallucinations. notes from his admission to this unit in October 2018: 11/13/2018 Shayan presents today reporting that the situation with his razor blade centered around his loss of his fianc?e. He reports that his significant other had committed suicide about 3 days shy of 2 years of when he made this suicide attempt before admission. He reports that he was feeling very low without feeling a clear sense of relief. And he had read online that he swallowed a razor blade that it would go through certain parts and because it was internal organs you would not feel it as it was slicing through things and that he would bleed out in his sleep. He reports that when he woke up and was alive but had a rectal bleeding he got really anxious and that when he came to the hospital. He is passed the razor blade now and at this point he reports that he is feeling better and more optimistic. With his first day on the psychiatric unit we discussed the fact that we needed to observe him for a couple of days to get a sense of where he really is prior to being comfortable with discharge. We had filed a 21-day hold paperwork but were able to negotiate and get an agreement that he will work with us over the next few days with a plan for discharge at the beginning of the week. Hospital Course: Shayan presented to the unit after being in the ICU and followed by surgery secondary to the ingestion of a razor blade or at least razor blade containing item from the head of a razor. After being followed until the object had been defecated since they were unable to get it by surgical means he was transferred to the NPU. After he woke up alive he reports that he got himself to the hospital for help and reports that he did not have any lethality after awaking and felt a desire to get help and not continue with self-injurious suicidal behaviors. So after a few days in the ICU he spent a few days in the NPU where he was observed and each day denied any lethality and a desire to go home and continue with his life. His medications were continued. Once he got to the NPU he acclimated to the individual, group and milieu therapies. While he was in the hospital he had routine laboratory studies which were within normal limits except for a few outliers. Those can be seen below. He also had a general medical evaluation this was within normal limits and revealed no acute processes except for the issue with the intentional ingestion. At the time of discharge his mood had improved, his lethality had resolved and he was sleeping better. He endorsed the plan to take his medication as prescribed, continue with his rec overy oriented outpatient treatments and abstain from drugs of abuse as well as self-injurious and suicidal behaviors. He had obtained all the benefits he could get from the inpatient unit so he was discharged. Social history:the patient is currently supporting himself through his disability payments. He lives with uncle who apparently has a farm. He spends much of his time helping his uncle with daily activities around the farm such as feeding animals and taking care of the general grounds. He engages in no enjoyable activities and largely spends his time playing on his phone. His un dimitrios apparently is advanced in age and is concerned about Shayan's well-being as the uncle's health declines. Shayan's uncle has advised him to go to a rehabilitation program and get off the Suboxone so that eventually he can be placed in a assisted or residential care facility. Legal history:there is no history in the [place] public record of incarcerations or felony arrests. Past medical history: Allergies Escitalopram. NSAIDS (NON-STEROIDAL ANTI-INFLAMMA. Venlafaxine. SOCIAL HX: Heavy tobacco smoker (cigarette)- 1 pack per day. No alcohol use or drug use. No recent travel. PROBLEMS: Ulcerative Colitis. GI Bleeding. Depression. Bipolar Disorder. Colitis. ADDITIONAL SURGERIES: Appendectomy. . Mental Status Exam: the patient is an alert interpersonally engaged male. He is believed to be a reliable informant to the best of his ability as information that is provided is internally consistent and consistent with that in the chart. Appearance: hygiene is fair; no gross neurological deficits., gait is unremarkable; AIMS=0 Speech: Speech is she is rapid with indistinct enunciation with frequently makes some of the information difficult to assess. Thought processes: Thought processes are abstract. Judgment is adequate for safety. Associations: intact Psychotic processes: There is no indication of guarding or paranoia. There is no attention to the internal stimuli. auditory hallucinations are reported as above. He denied the presence of visual hallucinations. Judgment: Insight is good. Problem solving skills are adequate for safety. Orientation: The patient is oriented to person, place time and situation. Memory: no deficits noted in immediate, intermediate, or remote spheres. Attention: The patient is alert and interpersonally engaged. Language: Verbalizations are coherent. Fund of knowledge: Fund of knowledge is adequate. Affect/Mood: Affect is consistent with a depressed mood. he reported vague suicidal ideation without intent or plan. Affective range good Psychosis: perception unimpaired despite intrusive auditory hallucinations that he is experiencing.; reality testing intact. Diagnoses: schizophrenia?undifferentiated, acute Assessment:this is a difficult situation given that he has a long-standing history of schizophrenia but can give no feedback as to what medications have been tried without any success in the past. At this point, we will continue the Zyprexa 20 mg at bedtime and also provide when necessary dosing during the day with Geodon as needed for auditory hallucinations. He will continue with Suboxone and the Celexa. We will discuss the feasibility of placement in a rehabilitation program with social welfare administrator. If this is a reasonable possibility, tapering some from Suboxone will be discussed. Hospital Course Hospital Course The patient was admitted to the neuropsychiatric unit for definitive treatment of these issues. On the unit he slowly acclimated to the individual, group and milieu therapies. He had auditory hallucinations on admission and they gradually resolved as Geodon was started at 40 mg twice daily and gradually increased to 80 mg twice daily. He had no side effects on this medicine. Doxepin 25 mg was started for insomnia. He was receptive to treatment team recommendations and showed modest improvement and was able to contract for safety prior to discharge. During the hospitalization, patient had routine laboratory studies which were within normal limits except for few outliers. Additionally there was a general medical evaluation which was also within normal limits and revealed no new acute processes. Discharge Summary: At the time of discharge, psychosis and lethality were denied. Mood and anxiety were well managed. Patient endorsed a plan to avoid all drugs of abuse and follow-up with the aftercare recommendations of the treatment team. Patient was evaluated and deemed to be absent credible lethality, and had achieved the maximum benefit from an inpatient hospitalization, so was discharged. Meds NPU Home Medications Medication Instructions Recorded Confirmed Last Taken Type doxepin 25 mg PO BEDTIME 30 Days #30 cap 01/19/21 01/25/21 Unknown Rx hydroxyzine pamoate 50 mg PO Q6H PRN 30 Days #180 cap 01/19/21 01/25/21 Unknown Rx propranolol 20 mg PO TID PRN 30 Days #90 tab 01/19/21 01/25/21 Unknown Rx sertraline 50 mg PO DAILY 30 Days #30 tab 01/19/21 01/25/21 Unknown Rx ziprasidone HCl 80 mg PO 0700,1700 30 Days #120 cap 01/19/21 01/25/21 Unknown Rx Allergies Allergy/AdvReac Type Severity Reaction Status Date / Time mushroom Allergy Unknown Unknown Verified 01/09/21 08:19 escitalopram [From Lexapro] Allergy ALGY-Anaphy Verified 01/09/21 08:19 laxis NSAIDS (Non-Steroidal Allergy ADR-Abdominal Verified 01/09/21 08:19 Anti-Inflamma Pain venlafaxine [From Effexor] Allergy ALGY-Anaphy Verified 01/09/21 08:19 laxis PFSH NPU PFSH: Medical History (Updated 01/26/21 @ 16:01 by Tab Colunga MD) Opiate misuse Schizophrenia Suicide attempt Ulcerative colitis Surgical History History of appendectomy Social History (Updated 01/09/21 @ 10:11 by Mich Madera MD) Smoking and tobacco status: current every day smoker Alcohol intake: never Mental Status Exam MSE Comments: This is an overweight versus obese white male in hospital gown with limited grooming and eye contact. No abnormal movements except mild psychomotor retardation. Cooperative with exam in no acute distress. Speech was limited and decreased rate and volume. Mood described as okay, affect subdued. Thought process organized. Thought content: Patient denied homicidal ideation, but endorsed suicidal ideation, no delusions reported or noted, he is endorsing auditory hallucinations but no visual hallucinations reported. Attention and concentration were intact and memory was unreliable but none were formally tested. He is alert and oriented x3. Insight and judgment are impaired, impulse control is impaired. Vitals/I&O/Wt Last Vital Signs Temp 97.9 F 01/26/21 12:00 Pulse 69 01/26/21 12:00 Resp 22 H 01/26/21 13:00 BP 104/64 01/26/21 12:00 Pulse Ox 96 01/26/21 12:00 01/26/21 14:59 Intake Total 1126.5909 / 1126.5909 Output Total Balance 1126.5909 / 1126.5909 Weight last 48 hrs Weight 86.183 kg Physical Exam Urinary Catheter Management^: García: Cath Placed During This Visit: yes Reason for Continuing Indwelling Catheter: Acute Urinary Retention or Obstruction Urinary Catheter Date of Insertion: 01/25/21 Urinary Catheter Time of Insertion: 16:00 Data NPU : 01/27/21 04:32 01/27/21 04:32 Micro: Microbiology 01/25/21 18:20 Blood Culture - Preliminary Blood NEGATIVE TO DATE 01/26/21 06:43 Blood Culture - Preliminary Blood SPECIMEN COLLECTED Microbiology 01/25/21 18:20 Blood Blood Culture - Preliminary NEGATIVE TO DATE 01/26/21 06:43 Blood Blood Culture - Preliminary SPECIMEN COLLECTED A&P Assessment and plan (1) Suicidal ideation: Status: Acute (2) Suicide attempt by drug overdose: Status: Acute (3) Hemodynamic instability: Status: Acute (4) QT prolongation: Status: Acute (5) Acute pancreatitis: Status: Acute (6) Altered mental status: Status: Acute (7) Beta laura toxicity: Status: Acute (8) TCA (tricyclic antidepressant) overdose of undetermined intent: Status: Acute (9) Abnormal ECG: Status: Acute (10) Psychosis: Status: Chronic (11) Cluster B personality disorder: Status: Chronic (12) Bipolar depression: Status: Chronic Additional A&P Information This is a 35-year-old white male with a long history of psychiatric treatment and opiate addiction who presents for his third hospitalization in the last couple months and the fourth since August with recent increase in the dangerousness of his suicidal behavior which is new to his psychiatric presentations with reports of psychosis being at the heart of this but with concerns of borderline personality being at the heart of this. 1. Continue current medication. 2. Transfer to neuropsychiatric unit when medically cleared. 3. We'll continue to follow. Involuntary Hold Information 96 Hour Hold: 96 Hour Involuntary Admission: No 96 Hour Hold Ending Date: 09/16/20 96 Hour Hold Ending Time: 11:45 Attestations NPU Medical Necessity Statement*: N/A. Please see primary team note for medical ne cessity. However he will need continued acute inpatient psychiatric treatment after he is medically cleared for transfer to psychiatric unit. 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
[2021-01-26] MEDS: midodrine 5 mg TABLET 10 MG PO ×3 (15:13→20:11)
[2021-01-26] MEDS: piperacillin-tazobactam 3.375 GM in sodium chloride 0.9% (plus) 50 ML IV ×2 (15:13→23:01)
[2021-01-26] MEDS: enoxaparin 40 mg/0.4 mL Syringe SUBCUT (15:13)
[2021-01-26 15:18] LABS: Lactate (Lactic Acid level) 0.7 mmol/L (0.5-2.2)
[2021-01-26 15:20] LABS: Troponin(5th) Baseline 7 ng/L (0-15)
[2021-01-26 15:32] LABS: NT Pro B Type Natriuretic Pept 751 pg/mL (0-125); Procalcitonin 0.36 ng/mL (0-0.5)
[2021-01-26 15:43] LABS: C Reactive Protein 58.1 mg/L (0.0-4.9)
--- NOTE | 2021-01-26 15:56 | PM.PN ---
Subjective Subjective: Interval history: Patient was seen this morning, he is alert to person, to place, to time, he confirms that he attempted to kill himself by overdosing on sertraline, doxepin, hydroxyzine, he also reports taking 1 Geodon tablet, currently denies any chest pain, no shortness of breath, no lightheadedness, dizziness, but does have significant right upper quadrant tenderness, denies a history of cholelithiasis, no recent fevers, no chills, no nausea, Vitals/I&O/Wt Last Vital Signs Temp 97.9 F 01/26/21 12:00 Pulse 69 01/26/21 14:15 Resp 22 H 01/26/21 13:00 BP 88/60 01/26/21 14:15 Pulse Ox 95 01/26/21 14:15 01/26/21 01/26/21 01/26/21 06:59 14:59 22:59 Intake Total 38.1 / 9011.0249 1126.5909 / 1126.5909 Output Total 1550 / 4450 Balance -1511.9 / 4561.0249 1126.5909 / 1126.5909 Weight last 48 hrs Weight 86.183 kg Physical Exam Const: COMMON NORMALS: no acute distress and patient oriented x3 Resp: COMMON NORMALS: normal respiratory effort, No retractions, No use of accessory muscles and clear to auscultation bilaterally AUSCULTATION: clear to auscultation bilaterally Cardio: COMMON NORMALS: regular rate, regular rhythm, S1 normal heart sound present and S2 normal heart sound present RATE: regular rate RHYTHM: regular rhythm HEART SOUNDS: S1 normal heart sound present and S2 normal heart sound present GI: COMMON NORMALS: Normal to inspection, nondistended, normoactive bowel sounds present and Soft to palpation PALPATION: Yes Soft to palpation Extremity: COMMON NORMALS: no pedal edema Neuro: COMMON NORMALS: patient oriented x3 Urinary Catheter Management^: García: Cath Placed During This Visit: yes Reason for Continuing Indwelling Catheter: Accurate Measurement of Urinary Output in Critically Ill Patients Urinary Catheter Date of Insertion: 01/25/21 Urinary Catheter Time of Insertion: 16:00 Data : 01/26/21 06:43 01/26/21 06:43 Micro: Microbiology 01/26/21 06:43 Blood Culture - Preliminary Blood SPECIMEN COLLECTED 01/25/21 18:20 Blood Culture - Preliminary Blood SPECIMEN COLLECTED A&P Assessment and plan (1) Beta alura toxicity: Status: Acute (2) TCA (tricyclic antidepressant) overdose of undetermined intent: Status: Acute (3) Psychosis: Status: Chronic (4) Acute pancreatitis: Status: Acute (5) Cluster B personality disorder: Status: Chronic (6) Bipolar depression: Status: Chronic (7) QT prolongation: Status: Acute (8) Abnormal ECG: Status: Acute (9) Hemodynamic instability: Status: Acute (10) Suicide attempt by drug overdose: Status: Acute (11) Suicidal ideation: Status: Acute Additional A&P Information Current goal of above polysubstance toxicity:Is to continue supportive care. Continue Levophed for now to maintain a MAP greater than 65, wean as tolerated Transition to midodrine 10 3 times daily Continue IV hydration with NS at 75 cc an hour. Electrolyte replacement. Magnesium greater than 2, potassium greater than 4 Serial EKG telemetry monitoring. Acute pancreatitis: Patient denies any alcohol use, CT abdomen and pelvis: Inconclusive for any gallbladder pathology Cannot conclusively rule out drug-induced acute pancreatitis. Continue supportive care, pain control, clear liquid diet CT abdominal has failed to show any necrosis Does have exquisite right upper quadrant tenderness, no significant LFT abnormalities, alk phos elevation, T bili elevation Right upper quadrant ultrasound shows 1. Mild gallbladder wall thickening with edema measuring 5.6 mm. Gallbladder is somewhat contracted. No cholelithiasis. This may be due to hepatic disease. Gallbladder function could be further evaluated with HIDA scan. 2. Normal common bile duct. 3. Mild hepatomegaly with coarse echogenicity suspicious for parenchymal disease. Recommend correlation with liver function tests and hepatic disease. For now continue clear liquid diet, start Zosyn for antibiotic coverage, follow blood cultures Hemodynamic instability likely secondary to overdose, some component of possible serotonin syndrome, TCA overdose -Status post dialysis catheter placement -Required large-volume fluid replacement -Currently on minimal Levophed -Continue to monitor QTC prolongation, resolved, serial EKGs Currently on 96-hour hold. Psychiatry consulted Left femoral dialysis catheter in place Poison control on board. 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
--- NOTE | 2021-01-26 16:46 | PC.RESP ---
SMOKING CESSATION INFORMATION SENT TO PATIENT.
[2021-01-26 17:25] LABS: Alanine Aminotransferase 8 U/L (0-41); Albumin Level 3.2 g/dL (3.5-5.2); Alkaline Phosphatase 78 IU/L (40-130); Anion Gap 14.9 (5-19); Aspartate Amino Transferase 10 U/L (0-40); Blood Urea Nitrogen 5 mg/dL (6-20); Carbon Dioxide 24 mmol/L (22-29); Chloride 107 mmol/L (98-107); Globulin 2.1 g/dL (1.3-4.6); Glomerular Filtration Rate 152.4 mL/min (90-130); Glucose 83 mg/dL (65-115); Osmolality Calculated 290 mOsm/kg (285-295); Phosphorus 3.1 mg/dL (2.5-4.5); Potassium 3.9 mmol/L (3.5-5.1); Sodium 142 mmol/L (136-145); Total Protein 5.3 g/dL (6.6-8.7)
[2021-01-26 18:31] LABS: Troponin 5 2HR 7.06 ng/L (0-15); Troponin 5 2HR Delta 0.06 ABS# (0-10)
--- NOTE | 2021-01-26 22:18 | PC.NURSE ---
Poison control updated on patient vitals signs, off of levo, and current mental state. Poison control states will close case
[2021-01-27] VITALS (56 sets, daily range): BP systolic 81–114; BP diastolic 39–69; PULSE 63–91; RESP 11–35; TEMP 36.6–36.8; O2SAT 90–97; BMI 26.4
[2021-01-27] MEDS: morphine 4 mg/mL SDV 1 mL 2 MG IVP ×3 (00:26→11:35)
--- NOTE | 2021-01-27 02:15 | ECG_ITS ---
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 Measurements Intervals [place] Rate: 76 P: 63 MN: 180 QRS: -45 QRSD: 115 T: 36 QT: 416 QTc: 469 Interpretive Statements SINUS RHYTHM WITH SINUS ARRHYTHMIA LEFT ANTERIOR FASCICULAR BLOCK [QRS AXIS <= -45, QR IN I, RS IN II] NONSPECIFIC T-WAVE ABNORMALITY Compared to ECG 01/26/2021 15:45:21 Left anterior fascicular block now present T-wave abnormality now present Left-axis deviation no longer present Electronically Signed On 01-27-2021 22:17:26 CDT by Wen Nugent M.D. [email or web address] [id number]
[2021-01-27 04:58] LABS: Glucose Point of Care 78 mg/dL (70-110)
[2021-01-27 05:07] LABS: Basophils % 0.1 %; Eosinophils # 0.4 10^3/uL (0.0-0.8); Eosinophils % 5.2 %; Hematocrit 35.7 % (42.0-52.0); Hemoglobin 11.8 g/dL (11.7-16.6); Lymphocytes # 1.6 10^3/uL (0.8-4.8); Lymphocytes % 21.5 %; Mean Corpuscular HGB Conc 33.1 g/dL (30.0-36.0); Mean Corpuscular Hemoglobin 28.2 pg (28.0-34.0); Mean Corpuscular Volume 85.4 fl (80-94); Mean Platelet Volume 10.6 fL (7.4-10.4); Monocytes # 0.7 10^3/uL (0.2-0.9); Monocytes % 9.5 %; Neutrophils % 63.4 %; Nucleated Red Blood Cells % 0 %; Platelet Count 196 10^3/cmm (130-400); Red Blood Count 4.18 10^6/uL (4.1-5.3); Red Cell Distribution Width 12.5 % (12.1-15.1); White Blood Count 7.6 10^3/uL (4.0-10.0)
[2021-01-27 05:25] LABS: Alanine Aminotransferase 9 U/L (0-41); Albumin Level 3.2 g/dL (3.5-5.2); Alkaline Phosphatase 80 IU/L (40-130); Anion Gap 10.7 (5-19); Aspartate Amino Transferase 12 U/L (0-40); Blood Urea Nitrogen 4 mg/dL (6-20); Calcium 8.1 mg/dL (8.5-10.5); Carbon Dioxide 25 mmol/L (22-29); Chloride 108 mmol/L (98-107); Globulin 2.1 g/dL (1.3-4.6); Glomerular Filtration Rate 152.4 mL/min (90-130); Glucose 88 mg/dL (65-115); Magnesium 1.8 mg/dL (1.7-2.3); Osmolality Calculated 286 mOsm/kg (285-295); Phosphorus 2.5 mg/dL (2.5-4.5); Potassium 3.7 mmol/L (3.5-5.1); Sodium 140 mmol/L (136-145); Total Protein 5.3 g/dL (6.6-8.7)
[2021-01-27 06:08] LABS: Glucose Point of Care 95 mg/dL (70-110)
[2021-01-27] MEDS: piperacillin-tazobactam 3.375 GM in sodium chloride 0.9% (plus) 50 ML IV (06:22)
[2021-01-27] MEDS: midodrine 5 mg TABLET 10 MG PO ×3 (08:15→22:31)
[2021-01-27] MEDS: sodium chloride 0.9% 1,000 ML 75 ML IV (11:37)
[2021-01-27 12:36] LABS: Glucose Point of Care 78 mg/dL (70-110)
--- NOTE | 2021-01-27 13:28 | PC.NURSE ---
Patient has complaints of abdominal pain. He states that it is Really bothering him. I reviewed the MAR, morphine is not available until 15:00. Tylenol is available. Patient declines Tylenol administration and states he can wait until [place] order becomes available.
--- NOTE | 2021-01-27 13:28 | PM.PN ---
Subjective Subjective: Interval history: Patient was seen this morning, continues to report suicidal ideation, no fevers, chills, nausea, vomiting, he continues to have complaints of right upper quadrant pain with palpation, but at rest is doing okay, is tolerating clear liquid diet well no nausea, no diarrhea Vitals/I&O/Wt Last Vital Signs Temp 98.1 F 01/27/21 04:00 Pulse 73 01/27/21 12:00 Resp 27 H 01/27/21 12:00 BP 104/69 01/27/21 12:00 Pulse Ox 94 01/27/21 12:00 01/26/21 01/27/21 01/27/21 22:59 06:59 14:59 Intake Total 1926.2 / 3052.7909 50 / 3102.7909 1650 / 1650 Output Total 4650 / 4650 950 / 5600 Balance -2723.8 / -1597.2091 -900 / -2497.2091 1650 / 1650 Physical Exam Const: COMMON NORMALS: no acute distress and patient oriented x3 Resp: COMMON NORMALS: normal respiratory effort, No retractions, No use of accessory muscles and clear to auscultation bilaterally AUSCULTATION: clear to auscultation bilaterally Cardio: COMMON NORMALS: regular rate, regular rhythm, S1 normal heart sound present and S2 normal heart sound present RATE: regular rate RHYTHM: regular rhythm HEART SOUNDS: S1 normal heart sound present and S2 normal heart sound present GI: COMMON NORMALS: Normal to inspection, nondistended, normoactive bowel sounds present, Soft to palpation and non-tender PALPATION: Yes Soft to palpation Extremity: COMMON NORMALS: no pedal edema Neuro: COMMON NORMALS: patient oriented x3 Psych: COMMON NORMALS: mental status grossly normal Urinary Catheter Management^: García: Cath Placed During This Visit: yes Reason for Continuing Indwelling Catheter: Acute Urinary Retention or Obstruction Urinary Catheter Date of Insertion: 01/25/21 Urinary Catheter Time of Insertion: 16:00 Data : 01/27/21 04:32 01/27/21 04:32 Micro: Microbiology 01/26/21 06:43 Blood Culture - Preliminary Blood NEGATIVE TO DATE 01/25/21 18:20 Blood Culture - Preliminary Blood NEGATIVE TO DATE A&P Assessment and plan (1) Beta laura toxicity: Status: Acute (2) TCA (tricyclic antidepressant) overdose of undetermined intent: Status: Acute (3) Psychosis: Status: Chronic (4) Acute pancreatitis: Status: Acute (5) Cluster B personality disorder: Status: Chronic (6) Bipolar depression: Status: Chronic (7) QT prolongation: Status: Acute (8) Abnormal ECG: Status: Acute (9) Hemodynamic instability: Status: Acute (10) Suicide attempt by drug overdose: Status: Acute (11) Suicidal ideation: Status: Acute Additional A&P Information Current goal of above polysubstance toxicity:Is to continue supportive care. Has been off Levophed for the last 12 hours, Transition off midodrine Stop fluid therapy Magnesium greater than 2, potassium greater than 4 Serial EKG telemetry monitoring. Acute pancreatitis?: Subtle peripancreatic stranding and edema, concerning for acute pancreatitis, as described above. Correlate with serum amylase and lipase levels. No drainable fluid collection. No necrosis or hemorrhage. Patient denies any alcohol use, CT abdomen and pelvis: Inconclusive for any gallbladder pathology Cannot conclusively rule out drug-induced acute pancreatitis. However no significant lipase elevation, afebrile, no nausea, no vomiting, no diarrhea, will continue to monitor, transition to a GI soft diet Continue supportive care, pain control, advance to GI soft diet CT abdominal has failed to show any necrosis Does have exquisite right upper quadrant tenderness, no significant LFT abnormalities, alk phos elevation, T bili elevation, continue to monitor Right upper quadrant ultrasound shows 1. Mild gallbladder wall thickening with edema measuring 5.6 mm. Gallbladder is somewhat contracted. No cholelithiasis. This may be due to hepatic disease. Gallbladder function could be further evaluated with HIDA scan. 2. Normal common bile duct. 3. Mild hepatomegaly with coarse echogenicity suspicious for parenchymal disease. Recommend correlation with liver function tests and hepatic disease. Transition to GI soft diet, change antibiotics to Cipro and Flagyl, will move to n.p.o. Hemodynamic instability likely secondary to overdose, some component of possible serotonin syndrome, TCA overdose -Status post dialysis catheter placement -Required large-volume fluid replacement -Currently off Levophed -Will wean off midodrine -Moved in p.m. -Continue to monitor QTC prolongation, resolved, serial EKGs Currently on 96-hour hold. Psychiatry consulted Left femoral dialysis catheter in place, will remove Poison control on board. 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
[2021-01-27] MEDS: metroNIDAZOLE 500 MG Tablet PO ×2 (14:06→21:29)
[2021-01-27] MEDS: HYDROcodone-acetaminophen 5-325 mg Tablet 1 TAB PO ×2 (14:06→21:43)
--- NOTE | 2021-01-27 14:49 | ECG_ITS ---
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 Measurements Intervals [place] Rate: 80 P: 59 MO: 173 QRS: -63 QRSD: 100 T: 0 QT: 364 QTc: 422 Interpretive Statements SINUS RHYTHM LEFT ANTERIOR FASCICULAR BLOCK [QRS AXIS <= -45, QR IN I, RS IN II] Compared to ECG 01/27/2021 03:08:56 Sinus arrhythmia no longer present T-wave abnormality no longer present Electronically Signed On 01-27-2021 22:13:39 CDT by Wen Nugent M.D. [id number]
--- NOTE | 2021-01-27 16:14 | PC.NURSE ---
Report called to KOFI Sena, no further questions. Awaiting current room to be cleaned.
--- NOTE | 2021-01-27 18:31 | ECG_ITS ---
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 Measurements Intervals [place] Rate: 73 P: 56 OR: 157 QRS: -51 QRSD: 100 T: 36 QT: 377 QTc: 416 Interpretive Statements SINUS RHYTHM LEFT AXIS DEVIATION [QRS AXIS < -30] INCOMPLETE RIGHT BUNDLE BRANCH BLOCK [90+ ms QRS DURATION, TERMINAL R IN V1/V2, 40+ ms S IN I/aVL/V4/V5/V6] NONSPECIFIC T-WAVE ABNORMALITY Compared to ECG 01/27/2021 13:28:30 Left-axis deviation now present Incomplete right bundle-branch block now present T-wave abnormality now present Left anterior fascicular block no longer present Electronically Signed On 01-27-2021 22:12:04 CDT by Wen Nugent M.D. [id number]
--- NOTE | 2021-01-27 18:41 | PC.NURSE ---
Patient taken to NPU via wheelchair accompanied by two nurses. Belongings and chart with patient. No further questions by NPU staff.
--- NOTE | 2021-01-27 21:13 | P.NPUPN_ITS ---
Subjective NPU Subjective: Interval history: Patient presents today reporting that he is feeling a little better than when he came to the hospital. He continues to have limited insight into why he is now on this increased suicidal behavior. We discussed the possibility of finding some kind of organized living arrangement which he did not seem to be resistant to. We continue to discuss concerns about cluster B pathology driving some of his behavior. Mental Status Exam MSE Comments: This is an overweight versus obese white male in hospital gown with limited grooming and eye contact. No abnormal movements except psychomotor retardation. Cooperative with exam in no acute distress. Speech was limited and decreased rate and volume. Mood described as okay, affect subdued. Thought process organized. Thought content: Patient denied homicidal ideation, but endorsed suicidal ideation, no delusions reported or noted, he is endorsing auditory hallucinations but no visual hallucinations reported. Attention and concentration were intact and memory was unreliable but none were formally tested. He is alert and oriented x3. Insight and judgment are impaired, impulse control is impaired. Vitals/I&O/Wt Last Vital Signs Temp 97.9 F 01/27/21 19:05 Pulse 88 01/27/21 20:09 Resp 16 01/27/21 20:09 BP 103/66 01/27/21 20:09 Pulse Ox 94 01/27/21 20:09 01/27/21 01/27/21 01/27/21 06:59 14:59 22:59 Intake Total 50 / 3102.7909 1650 / 1650 Output Total 950 / 5600 1250 / 1250 Balance -900 / -2497.2091 1650 / 1650 -1250 / 400 Weight last 48 hrs Weight 86.183 kg Physical Exam Urinary Catheter Management^: García: Cath Placed During This Visit: yes, but has since been removed by the nurse Reason for Continuing Indwelling Catheter: Accurate Measurement of Urinary Output in Critically Ill Patients Urinary Catheter Date of Insertion: 01/25/21 Urinary Catheter Time of Insertion: 16:00 Date Urinary Catheter Removed: 01/27/21 Time Urinary Catheter Discontinued: 15:18 Data NPU : 01/27/21 04:32 01/27/21 04:32 Micro: Microbiology 01/26/21 06:43 Blood Culture - Preliminary Blood NEGATIVE TO DATE 01/25/21 18:20 Blood Culture - Preliminary Blood NEGATIVE TO DATE Microbiology 01/26/21 06:43 Blood Blood Culture - Preliminary NEGATIVE TO DATE 01/25/21 18:20 Blood Blood Culture - Preliminary NEGATIVE TO DATE A&P Additional A&P Information (1) Suicidal ideation: (2) Suicide attempt by drug overdose: (3) Hemodynamic instability: (4) QT prolongation: (5) Acute pancreatitis: (6) Altered mental status: (7) Beta laura toxicity: (8) TCA (tricyclic antidepressant) overdose of undetermined intent: (9) Abnormal ECG: (10) Psychosis: (11) Cluster B personality disorder: (12) Bipolar depression: Additional A&P Information This is a 35-year-old white male with a long history of psychiatric treatment and opiate addiction who presents for his third hospitalization in the last couple months and the fourth since August with recent increase in the dangerousness of his suicidal behavior which is new to his psychiatric presentations with reports of psychosis being at the heart of this but with con cerns of borderline personality being at the heart of this. 1. Continue current medication. 2. Continue every 15 minute checks for safety. 3. Encourage individual, group and milieu therapies. 4. Encourage sober living treatment after discharge at the highest level of care to which he is willing to commit. 5. We will work with treatment team to determine whether there is a suitable residential setting for Shayan. Involuntary Hold Information 96 Hour Hold: 96 Hour Involuntary Admission: Yes 96 Hour Hold Ending Date: 01/30/21 96 Hour Hold Ending Time: 00:01 Attestations NPU Medical Necessity Statement*: Inpatient hospitalization is medically necessary and the clinically appropriate intervention at this time. We will monitor medications and make changes as indicated. Patient will be in the hospital for over two midnights. Likely length of stay 4-6 days. We will likely need a 21- day hold. 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
[2021-01-27] MEDS: ciprofloxacin 500 mg Tablet PO (21:29)
[2021-01-28 06:00] VITALS: BP 111/70; PULSE 66; RESP 16; O2SAT 95
[2021-01-28 07:54] LABS: Basophils % 0.3 %; Eosinophils # 0.3 10^3/uL (0.0-0.8); Eosinophils % 4.4 %; Hematocrit 39.5 % (42.0-52.0); Hemoglobin 13.2 g/dL (11.7-16.6); Lymphocytes # 1.4 10^3/uL (0.8-4.8); Lymphocytes % 19.7 %; Mean Corpuscular HGB Conc 33.4 g/dL (30.0-36.0); Mean Corpuscular Hemoglobin 28.6 pg (28.0-34.0); Mean Corpuscular Volume 85.7 fl (80-94); Mean Platelet Volume 10.6 fL (7.4-10.4); Monocytes # 0.6 10^3/uL (0.2-0.9); Monocytes % 7.8 %; Neutrophils # 4.87 10^3/uL (1.8-7.7); Neutrophils % 67.5 %; Nucleated Red Blood Cells % 0 %; Platelet Count 234 10^3/cmm (130-400); Red Blood Count 4.61 10^6/uL (4.1-5.3); Red Cell Distribution Width 12.5 % (12.1-15.1); White Blood Count 7.2 10^3/uL (4.0-10.0)
[2021-01-28] MEDS: HYDROcodone-acetaminophen 5-325 mg Tablet 1 TAB PO ×4 (08:05→20:57)
[2021-01-28] MEDS: metroNIDAZOLE 500 MG Tablet PO ×3 (08:05→20:57)
[2021-01-28] MEDS: ciprofloxacin 500 mg Tablet PO ×2 (08:05→20:57)
[2021-01-28] MEDS: midodrine 5 mg TABLET 10 MG PO (08:05)
[2021-01-28 08:07] LABS: Alanine Aminotransferase 9 U/L (0-41); Albumin Level 3.5 g/dL (3.5-5.2); Alkaline Phosphatase 80 IU/L (40-130); Aspartate Amino Transferase 10 U/L (0-40); Blood Urea Nitrogen 5 mg/dL (6-20); Calcium 8.7 mg/dL (8.5-10.5); Carbon Dioxide 26 mmol/L (22-29); Chloride 108 mmol/L (98-107); Globulin 2.4 g/dL (1.3-4.6); Glomerular Filtration Rate 127.6 mL/min (90-130); Glucose 89 mg/dL (65-115); Magnesium 1.7 mg/dL (1.7-2.3); Osmolality Calculated 289 mOsm/kg (285-295); Phosphorus 2.3 mg/dL (2.5-4.5); Sodium 141 mmol/L (136-145); Total Bilirubin 0.5 mg/dL (0.15-1.2); Total Protein 5.9 g/dL (6.6-8.7)
[2021-01-28] MEDS: nicotine 2 mg Gum BUCCAL ×4 (08:07→20:57)
[2021-01-28 10:26] LABS: ABG PCO2 36.8 mmHg (35-45); ABG PH Result 7.45 (7.35-7.45); Arterial Blood Gas Hematocrit 40.9 % (42-52); Base Excess ABG 1.5 mmol/L (-2.0-2.0); Blood Gas Allen Test Pos; Blood Gas Operator Identificat ED; Blood Gas Sample Site Radial, left; Blood Gas Sample Type Arterial; HCO3 ABG 25.4 mmol/L (22-26); Oxygen Device ROOM AIR; PO2 ABG 73.1 mmHg (80.0-100.0)
--- NOTE | 2021-01-28 10:56 | NPU.GN ---
[facility] Group Topic: Meditation Psych Education General Mood of Group: Shayan did not attend group he wanted to sleep.
[2021-01-28 14:00] VITALS: BP 102/67; PULSE 56; RESP 18; TEMP 36.1; O2SAT 97
--- NOTE | 2021-01-28 16:14 | P.PN_ITS ---
Subjective Subjective: Interval history: Patient was seen this morning, he complained of mild nausea overnight, has some diarrhea, continues to have right upper quadrant pain, no fevers Vitals/I&O/Wt Last Vital Signs Temp 97.0 F L 01/28/21 14:00 Pulse 56 L 01/28/21 14:00 Resp 18 01/28/21 14:00 BP 102/67 01/28/21 14:00 Pulse Ox 97 01/28/21 14:00 Weight last 48 hrs Weight 86.183 kg Physical Exam Const: COMMON NORMALS: no acute distress and patient oriented x3 Resp: COMMON NORMALS: normal respiratory effort, No retractions, No use of accessory muscles and clear to auscultation bilaterally AUSCULTATION: clear to auscultation bilaterally Cardio: COMMON NORMALS: regular rate, regular rhythm, S1 normal heart sound present and S2 normal heart sound present RATE: regular rate RHYTHM: regular rhythm HEART SOUNDS: S1 normal heart sound present and S2 normal heart sound present GI: COMMON NORMALS: Normal to inspection, nondistended, normoactive bowel sounds present and Soft to palpation PALPATION: Yes Soft to palpation and Yes Tenderness to palpation present (GI) Details: RUQ Extremity: COMMON NORMALS: no pedal edema Neuro: COMMON NORMALS: patient oriented x3 Psych: COMMON NORMALS: mental status grossly normal Urinary Catheter Management^: García: Cath Placed During This Visit: yes, but has since been removed by the nurse Reason for Continuing Indwelling Catheter: Accurate Measurement of Urinary Ou tput in Critically Ill Patients Urinary Catheter Date of Insertion: 01/25/21 Urinary Catheter Time of Insertion: 16:00 Date Urinary Catheter Removed: 01/27/21 Time Urinary Catheter Discontinued: 15:18 Data : 01/28/21 07:41 01/28/21 07:41 A&P Assessment and plan (1) Beta laura toxicity: Status: Acute (2) TCA (tricyclic antidepressant) overdose of undetermined intent: Status: Acute (3) Psychosis: Status: Chronic (4) Acute pancreatitis: Status: Acute (5) Cluster B personality disorder: Status: Chronic (6) Bipolar depression: Status: Chronic (7) QT prolongation: Status: Acute (8) Abnormal ECG: Status: Acute (9) Hemodynamic instability: Status: Acute (10) Suicide attempt by drug overdose: Status: Acute (11) Suicidal ideation: Status: Acute Additional A&P Information Current goal of above polysubstance toxicity:Is to continue supportive care. Transition off midodrine Magnesium greater than 2, potassium greater than 4 Serial EKG telemetry monitoring. Acute pancreatitis?: Subtle peripancreatic stranding and edema, concerning for acute pancreatitis, as described above. Correlate with serum amylase and lipase levels. No drainable fluid collection. No necrosis or hemorrhage. Patient denies any alcohol use, CT abdomen and pelvis: Inconclusive for any gallbladder pathology Cannot conclusively rule out drug-induced acute pancreatitis. However no significant lipase elevation, afebrile, no nausea, no vomiting, no diarrhea, will continue to monitor, transition to a GI soft diet Continue supportive care, pain control, advance to GI soft diet CT abdominal has failed to show any necrosis Does have exquisite right upper quadrant tenderness, no significant LFT abnormalities, alk phos elevation, T bili elevation, continue to monitor Right upper quadrant ultrasound shows 1. Mild gallbladder wall thickening with edema measuring 5.6 mm. Gallbladder is somewhat contracted. No cholelithiasis. This may be due to hepatic disease. Gallbladder function could be further evaluated with HIDA scan. 2. Normal common bile duct. 3. Mild hepatomegaly with coarse echogenicity suspicious for parenchymal disease. Recommend correlation with liver function tests and hepatic disease. Currently on GI soft diet, continue Cipro and Flagyl, will order a HIDA scan Hemodynamic instability likely secondary to overdose, some component of possible serotonin syndrome, TCA overdose -Status post dialysis catheter placement, now removed -Required large-volume fluid replacement -Currently off Levophed -Off midodrine -Resolved -Continue to monitor QTC prolongation, resolved, serial EKGs Currently on 96-hour hold. Psychiatry consulted Left femoral dialysis catheter in place, will remove Poison control on board. 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
--- NOTE | 2021-01-28 16:15 | PC.NURSE ---
patient reporting a stabbing abdominal pain 10/04, medicated with prn dose hydrocodone 5/325mg.
--- NOTE | 2021-01-28 17:07 | W.PM.NPUPNS ---
Subjective NPU Subjective: Interval history: Jan presents today reporting that he is doing okay but still endorsing suicidality. He denies it being as pressing as it was when he took the overdose. We discussed the plan for filing the 21-day hold and looking at residential treatment. He showed no resistance to the idea or the plan. Reports that he is eating okay and sleeping okay. He is aware of being made n.p.o. tonight for procedure tomorrow. Mental Status Exam MSE Comments: This is an overweight versus obese white male in hospital gown with limited grooming and eye contact. No abnormal movements except psychomotor retardation. Cooperative with exam in no acute distress. Speech was limited and decreased rate and volume. Mood described as all right, affect subdued. Thought process organized. Thought content: Patient denied homicidal ideation, but endorsed suicidal ideation, no delusions reported or noted, he is endorsing auditory hallucinations but no visual hallucinations reported. Attention and concentration were intact and memory was unreliable but none were formally tested. He is alert and oriented x3. Insight and judgment are impaired, impulse control is impaired. Vitals/I&O/Wt Last Vital Signs Temp 97.7 F 01/28/21 20:28 Pulse 55 L 01/28/21 20:28 Resp 20 H 01/28/21 20:28 BP 96/56 01/28/21 20:28 Pulse Ox 97 01/28/21 20:28 Weight last 48 hrs Weight 86.183 kg Physical Exam Urinary Catheter Management^: García: Cath Placed During This Visit: yes, but has since been removed by the nurse Reason for Continuing Indwelling Catheter: Accurate Measurement of Urinary Output in Critically Ill Patients Urinary Catheter Date of Insertion: 01/25/21 Urinary Catheter Time of Insertion: 16:00 Date Urinary Catheter Removed: 01/27/21 Time Urinary Catheter Discontinued: 15:18 Data NPU : 01/28/21 07:41 01/28/21 07:41 A&P Additional A&P Information (1) Suicidal ideation: (2) Suicide attempt by drug overdose: (3) Hemodynamic instability: (4) QT prolongation: (5) Acute pancreatitis: (6) Altered mental status: (7) Beta laura toxicity: (8) TCA (tricyclic antidepressant) overdose of undetermined intent: (9) Abnormal ECG: (10) Psychosis: (11) Cluster B personality disorder: (12) Bipolar depression: Additional A&P Information This is a 35-year-old white male with a long history of psychiatric treatment and opiate addiction who presents for his third hospitalization in the last couple months and the fourth since August with recent increase in the dangerousness of his suicidal behavior which is new to his psychiatric presentations with reports of psychosis being at the heart of this but with concerns of borderline personality being at the heart of this. 1. Continue current medication. 2. Continue every 15 minute checks for safety. 3. Encourage individual, group and milieu therapies. 4. Encourage sober living treatment after discharge at the highest level of care to which he is willing to commit. 5. We will work with treatment team to determine whether there is a suitable residential setting for Shayan. 6. Appreciate continued hospitalist follow-up will follow recommendations and prepare for procedure tomorrow. Involuntary Hold Information 96 Hour Hold: 96 Hour Involuntary Admission: Yes 96 Hour Hold Ending Date: 01/30/21 96 Hour Hold Ending Time: 00:01 Attestations NPU Medical Necessity Statement*: Inpatient hospitalization is medically necessary and the clinically appropriate intervention at this time. We will monitor medications and make changes as indicated. Likely length of stay 7-10 days. We will likely need a 21-day hold. 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
--- NOTE | 2021-01-28 18:31 | ECG_ITS ---
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 Measurements Intervals [place] Rate: 58 P: 58 SC: 172 QRS: -38 QRSD: 100 T: 35 QT: 416 QTc: 411 Interpretive Statements SINUS BRADYCARDIA WITH SINUS ARRHYTHMIA LEFT AXIS DEVIATION [QRS AXIS < -30] NONSPECIFIC T-WAVE ABNORMALITY Compared to ECG 01/27/2021 18:43:58 Sinus rhythm no longer present Incomplete right bundle-branch block no longer present T-wave abnormality still present Electronically Signed On 01-29-2021 17:18:09 CDT by Maynor Huynh M.D. [id number]
[2021-01-28 20:28] VITALS: BP 96/56; PULSE 55; RESP 20; TEMP 36.5; O2SAT 97
[2021-01-28] MEDS: trazodone 50 mg Tablet PO (21:33)
--- NOTE | 2021-01-28 23:28 | PC.NURSE ---
Administered trazodone 50mg PO for sleep per patient request. Medication effective, patient resting with eyes closed and regular respirations. Patient also given nicotine gum per request.
--- NOTE | 2021-01-29 03:48 | PC.NURSE ---
Patient reported feeling depressed in evening, with continued SI and AH. Patient denies having intent on acting on SI and did contract for safety. Has flat affect and minimal interaction with others noted. Patient is A&O. Has remained in bed resting with eyes closed most of evening. Patient NPO at midnight.
[2021-01-29 06:00] VITALS: BP 116/67; PULSE 74; RESP 17; TEMP 36.8; O2SAT 96
--- NOTE | 2021-01-29 06:31 | ECG_ITS ---
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 Measurements Intervals [place] Rate: 67 P: 74 DC: 143 QRS: -46 QRSD: 106 T: 0 QT: 394 QTc: 418 Interpretive Statements SINUS RHYTHM WITH SINUS ARRHYTHMIA INCOMPLETE RIGHT BUNDLE BRANCH BLOCK [90+ ms QRS DURATION, TERMINAL R IN V1/V2, 40+ ms S IN I/aVL/V4/V5/V6] LEFT ANTERIOR FASCICULAR BLOCK [QRS AXIS <= -45, QR IN I, RS IN II] NONSPECIFIC T-WAVE ABNORMALITY Compared to ECG 01/28/2021 10:37:06 Incomplete right bundle-branch block now present Left anterior fascicular block now present Sinus bradycardia no longer present Left-axis deviation no longer present T-wave abnormality still present Electronically Signed On 01-29-2021 17:15:06 CDT by Maynor Huynh M.D. [id number]
--- NOTE | 2021-01-29 06:57 | PC.NURSE ---
Patient off unit to go to nuclear medicine for test. Transported by TR[employer] VAULT CUSTODIAN and security via wheelchair. Left unit at 0645.
--- NOTE | 2021-01-29 08:40 | PC.NURSE ---
Addendum entered by Angeles Kaiser RN 01/29/21 08:51: CORRECTION ON TIME. PATIENT BACK AT 0800 Original Note: PATIENT BACK FROM NUCLEAR MED, ACCOMPANIED BY STAFF AND SECURITY
--- NOTE | 2021-01-29 08:45 | PC.NURSE ---
PATIENT OFF THE UNIT TO NUCLEAR MEDICINE ACCOMPANIED BY STAFF AND SECURITY
--- NOTE | 2021-01-29 09:10 | PC.NURSE ---
PATIENT BACK ON THE UNIT, ACCOMPANIED BY STAFF AND SECURITY
[2021-01-29] MEDS: HYDROcodone-acetaminophen 5-325 mg Tablet 1 TAB PO ×3 (09:18→20:19)
[2021-01-29] MEDS: ciprofloxacin 500 mg Tablet PO ×2 (09:19→20:10)
[2021-01-29] MEDS: metroNIDAZOLE 500 MG Tablet PO ×3 (09:19→20:10)
[2021-01-29] MEDS: nicotine 2 mg Gum BUCCAL ×3 (09:19→20:21)
--- NOTE | 2021-01-29 09:21 | NM_ITS ---
WS: [id number] NUCLEAR MEDICINE HIDA SCAN CLINICAL INFORMATION: ruq pain TECHNIQUE: Following intravenous administration of 7.1 mCi of technetium 99m mebrofenin, images of th e abdomen were obtained over the course of 60 minutes. Next, gallbladder ejection fraction was determ ined by obtaining preprandial and one-hour postprandial images of the gallbladder following oral fatmata stion of Ensure. COMPARISON: Ultrasound January 26, 2021 FINDINGS: Normal hepatic uptake at 5 minutes. Gallbladder is visualized by 20 minutes. Normal common bile duct and small bowel activity. No evidence of acute cholecystitis. Gallbladder ejection fraction 85% within normal limits. No evidence of chronic cholecystitis. NM/NM hepatobiliary w phar* [id number] IMPRESSION: 1. No evidence of acute or chronic cholecystitis. 2. Gallbladder ejection fraction 85% within normal limits.
[2021-01-29 11:00] LABS: Basophils % 0.2 %; Eosinophils # 0.3 10^3/uL (0.0-0.8); Eosinophils % 2.8 %; Hematocrit 37.5 % (42.0-52.0); Hemoglobin 12.9 g/dL (11.7-16.6); Lymphocytes # 1.7 10^3/uL (0.8-4.8); Lymphocytes % 16.9 %; Mean Corpuscular HGB Conc 34.4 g/dL (30.0-36.0); Mean Corpuscular Hemoglobin 28.9 pg (28.0-34.0); Mean Corpuscular Volume 84.1 fl (80-94); Mean Platelet Volume 10.1 fL (7.4-10.4); Monocytes # 0.6 10^3/uL (0.2-0.9); Monocytes % 5.5 %; Neutrophils # 7.57 10^3/uL (1.8-7.7); Neutrophils % 74.2 %; Nucleated Red Blood Cells % 0 %; Platelet Count 244 10^3/cmm (130-400); Red Blood Count 4.46 10^6/uL (4.1-5.3); Red Cell Distribution Width 12.6 % (12.1-15.1); White Blood Count 10.2 10^3/uL (4.0-10.0)
[2021-01-29 11:20] LABS: Alanine Aminotransferase 8 U/L (0-41); Albumin Level 3.5 g/dL (3.5-5.2); Alkaline Phosphatase 76 IU/L (40-130); Anion Gap 10.8 (5-19); Aspartate Amino Transferase 11 U/L (0-40); Blood Urea Nitrogen 6 mg/dL (6-20); Calcium 8.9 mg/dL (8.5-10.5); Carbon Dioxide 24 mmol/L (22-29); Chloride 109 mmol/L (98-107); Globulin 2.4 g/dL (1.3-4.6); Glomerular Filtration Rate 152.4 mL/min (90-130); Glucose 105 mg/dL (65-115); Osmolality Calculated 288 mOsm/kg (285-295); Potassium 3.8 mmol/L (3.5-5.1); Sodium 140 mmol/L (136-145); Total Bilirubin 0.3 mg/dL (0.15-1.2); Total Protein 5.9 g/dL (6.6-8.7)
--- NOTE | 2021-01-29 11:50 | NPU.GN ---
[facility] Topic:Meditation/ Depression Robbin General Mood of Group: Shayan did not attend group today.
[2021-01-29 14:00] VITALS: BP 101/71; PULSE 88; RESP 18; TEMP 36; O2SAT 96
[2021-01-29] MEDS: haloperidol 5 mg Tablet PO (14:42)
--- NOTE | 2021-01-29 14:42 | PC.NURSE ---
prn Administered Haldol 5mg for pt still having anxiety after a dose of Zydis. Will continue to monitor pt.
--- NOTE | 2021-01-29 18:57 | P.NPUPN_ITS ---
Subjective NPU Subjective: Interval history: Shayan presents today continuing to report suicidal thoughts and hearing voices. We discussed the 21-day hold paperwork being submitted. We discussed our vision that at this point for safety sake we would need to find some kind of structured living arrangement versus him returning to his uncle's place which he understood and agreed with. He reported a history of some success with Thorazine and we discussed the risk benefits and alternatives of starting Thorazine 3 times a day with a higher dose at night and he understood and agreed to proceed as is documented in this note. Mental Status Exam MSE Comments: This is an overweight versus obese white male in hospital gown with limited grooming and eye contact. No abnormal movements except psychom otor retardation. Cooperative with exam in no acute distress. Speech was limited and decreased rate and volume. Mood described as okay, affect subdued. Thought process organized. Thought content: Patient denied homicidal ideation, but endorsed suicidal ideation, no delusions reported or noted, he is endorsing auditory hallucinations but no visual hallucinations reported. Attention and concentration were intact and memory was unreliable but none were formally tested. He is alert and oriented x3. Insight and judgment are impaired, impulse control is impaired. Vitals/I&O/Wt Last Vital Signs Temp 97.9 F 01/29/21 21:04 Pulse 68 01/29/21 21:04 Resp 16 01/29/21 21:04 BP 111/67 01/29/21 21:04 Pulse Ox 98 01/29/21 21:04 Physical Exam Urinary Catheter Management^: García: Cath Placed During This Visit: yes, but has since been removed by the nurse Reason for Continuing Indwelling Catheter: Accurate Measurement of Urinary Output in Critically Ill Patients Urinary Catheter Date of Insertion: 01/25/21 Urinary Catheter Time of Insertion: 16:00 Date Urinary Catheter Removed: 01/27/21 Time Urinary Catheter Discontinued: 15:18 Data NPU : 01/29/21 10:49 01/29/21 10:49 A&P Additional A&P Information (1) Suicidal ideation: (2) Suicide attempt by drug overdose: (3) Hemodynamic instability: (4) QT prolongation: (5) Acute pancreatitis: (6) Altered mental status: (7) Beta laura toxicity: (8) TCA (tricyclic antidepressant) overdose of undetermined intent: (9) Abnormal ECG: (10) Psychosis: (11) Cluster B personality disorder: (12) Bipolar depression: Additional A&P Information This is a 35-year-old white male with a long history of psychiatric treatment and opiate addiction who presents for his third hospitalization in the last couple months and the fourth since August with recent increase in the dangerousness of his suicidal behavior which is new to his psychiatric presentations with reports of psychosis being at the heart of this but with concerns of borderline personality being at the heart of this. 1. Continue current medication. Start Thorazine 25 mg in the morning and aft ernoon and 50 mg at bedtime. 2. Continue every 15 minute checks for safety. 3. Encourage individual, group and milieu therapies. 4. Encourage sober living treatment after discharge at the highest level of care to which he is willing to commit. 5. We will work with treatment team to determine whether there is a suitable residential setting for Shayan. 6. Appreciate continued hospitalist follow-up. 7. File a 21-day hold. Involuntary Hold Information 96 Hour Hold: 96 Hour Involuntary Admission: Yes 96 Hour Hold Ending Date: 01/30/21 96 Hour Hold Ending Time: 00:01 Attestations NPU Medical Necessity Statement*: Inpatient hospitalization is medically necessary and the clinically appropriate intervention at this time. We will monitor medications and make changes as indicated. Likely length of stay 7-10 days. Filed 21-day hold paperwork. 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
[2021-01-29] MEDS: OLANZapine 5 mg ODT PO (20:10)
[2021-01-29] MEDS: trazodone 50 mg Tablet PO (20:10)
[2021-01-29 21:04] VITALS: BP 111/67; PULSE 68; RESP 16; TEMP 36.6; O2SAT 98
[2021-01-30 06:00] VITALS: RESP 16
[2021-01-30] MEDS: HYDROcodone-acetaminophen 5-325 mg Tablet 1 TAB PO ×2 (06:32→10:36)
[2021-01-30 07:23] LABS: Basophils % 0.3 %; Eosinophils # 0.3 10^3/uL (0.0-0.8); Eosinophils % 2.9 %; Hematocrit 40.7 % (42.0-52.0); Hemoglobin 13.6 g/dL (11.7-16.6); Lymphocytes # 1.7 10^3/uL (0.8-4.8); Lymphocytes % 14.8 %; Mean Corpuscular HGB Conc 33.4 g/dL (30.0-36.0); Mean Corpuscular Hemoglobin 29.1 pg (28.0-34.0); Mean Corpuscular Volume 87.2 fl (80-94); Mean Platelet Volume 10.4 fL (7.4-10.4); Monocytes # 0.6 10^3/uL (0.2-0.9); Monocytes % 5.5 %; Neutrophils # 8.59 10^3/uL (1.8-7.7); Neutrophils % 76.3 %; Nucleated Red Blood Cells % 0 %; Platelet Count 238 10^3/cmm (130-400); Red Blood Count 4.67 10^6/uL (4.1-5.3); White Blood Count 11.3 10^3/uL (4.0-10.0)
[2021-01-30 07:40] LABS: Alanine Aminotransferase 9 U/L (0-41); Albumin Level 3.6 g/dL (3.5-5.2); Alkaline Phosphatase 75 IU/L (40-130); Aspartate Amino Transferase 11 U/L (0-40); Blood Urea Nitrogen 9 mg/dL (6-20); Calcium 8.9 mg/dL (8.5-10.5); Carbon Dioxide 19 mmol/L (22-29); Chloride 108 mmol/L (98-107); Globulin 2.7 g/dL (1.3-4.6); Glomerular Filtration Rate 152.4 mL/min (90-130); Glucose 95 mg/dL (65-115); Osmolality Calculated 288 mOsm/kg (285-295); Sodium 140 mmol/L (136-145); Total Bilirubin 0.4 mg/dL (0.15-1.2); Total Protein 6.3 g/dL (6.6-8.7)
[2021-01-30 07:58] LABS: Anion Gap 16.7 (5-19); Potassium 3.7 mmol/L (3.5-5.1)
[2021-01-30] MEDS: metroNIDAZOLE 500 MG Tablet PO (08:15)
[2021-01-30] MEDS: ciprofloxacin 500 mg Tablet PO (08:16)
[2021-01-30] MEDS: chlorPROMazine 25 mg Tablet PO ×4 (08:16→20:20)
[2021-01-30] MEDS: nicotine 2 mg Gum BUCCAL ×3 (08:16→14:10)
[2021-01-30] MEDS: hyDROXYzine 25 mg Capsule 50 MG PO ×2 (11:37→20:18)
[2021-01-30] MEDS: OLANZapine 5 mg ODT PO ×2 (12:41→16:28)
[2021-01-30] MEDS: acetaminophen 325 mg Tablet 650 MG PO (13:10)
--- NOTE | 2021-01-30 13:29 | NPU.GN ---
[facility] Topic:Dice Breaker Psych Education General Mood of Group: Shayan did not attend group this morning he wanted to sleep.
[2021-01-30 14:00] VITALS: BP 116/74; PULSE 81; RESP 17; TEMP 36.6; O2SAT 94
[2021-01-30] MEDS: haloperidol 5 mg Tablet PO (14:08)
--- NOTE | 2021-01-30 17:52 | P.PN_ITS ---
Subjective Subjective: Interval history: Patient was seen this morning, he continues to complain of right upper quadrant abdominal pain, some nausea, diarrhea, I spoke to nursing staff, they have not heard any complaints of nausea, vomiting or diarrhea, remains afebrile Vitals/I&O/Wt Last Vital Signs Temp 97.9 F 01/30/21 14:00 Pulse 81 01/30/21 14:00 Resp 17 01/30/21 14:00 BP 116/74 01/30/21 14:00 Pulse Ox 94 01/30/21 14:00 Physical Exam Const: COMMON NORMALS: no acute distress and patient oriented x3 Resp: COMMON NORMALS: normal respiratory effort, No retractions, No use of accessory muscles and clear to auscultation bilaterally AUSCULTATION: clear to auscultation bilaterally Cardio: COMMON NORMALS: regular rate, regular rhythm, S1 normal heart sound present and S2 normal heart sound present RATE: regular rate RHYTHM: regular rhythm HEART SOUNDS: S1 normal heart sound present and S2 normal heart sound present GI: COMMON NORMALS: Normal to inspection, nondistended, normoactive bowel sounds present and non-tender PALPATION: Yes Tenderness to palpation present (GI) Details: RUQ Extremity: COMMON NORMALS: no pedal edema Neuro: COMMON NORMALS: patient oriented x3 Psych: COMMON NORMALS: mental status grossly normal Urinary Catheter Management^: García: Cath Placed During This Visit: yes, but has since been removed by the nurse Reason for Continuing Indwelling Catheter: Accurate Measurement of Urinary Output in Critically Ill Patients Urinary Catheter Date of Insertion: 01/25/21 Urinary Catheter Time of Insertion: 16:00 Date Urinary Catheter Removed: 01/27/21 Time Urinary Catheter Discontinued: 15:18 Data : 01/30/21 07:09 01/30/21 07:09 A&P Assessment and plan (1) Beta laura toxicity: Status: Acute (2) TCA (tricyclic antidepressant) overdose of undetermined intent: Status: Acute (3) Psychosis: Status: Chronic (4) Acute pancreatitis: Status: Acute (5) Cluster B personality disorder: Status: Chronic (6) Bipolar depression: Status: Chronic (7) QT prolongation: Status: Acute (8) Abnormal ECG: Status: Acute (9) Hemodynamic instability: Status: Acute (10) Suicide attempt by drug overdose: Status: Acute (11) Suicidal ideation: Status: Acute Additional A&P Information Current goal of above polysubstance toxicity: Resolved Acute pancreatitis?: Resolved, subtle peripancreatic stranding and edema, concerning for acute pancreatitis, as described above. Correlate with serum amylase and lipase levels. No drainable fluid collection. No necrosis or hemorrhage. Patient denies any alcohol use, CT abdomen and pelvis: Inconclusive for any gallbladder pathology Cannot conclusively rule out drug-induced acute pancreatitis. However no significant lipase elevation, Continue supportive care, regular diet CT abdominal has failed to show any necrosis Does have exquisite right upper quadrant tenderness, no significant LFT abnormalities, alk phos elevation, T bili elevation, continue to monitor Right upper quadrant ultrasound shows 1. Mild gallbladder wall thickening with edema measuring 5.6 mm. Gallbladder is somewhat contracted. No cholelithiasis. This may be due to hepatic disease. Gallbladder function could be further evaluated with HIDA scan. 2. Normal common bile duct. 3. Mild hepatomegaly with coarse echogenicity suspicious for parenchymal disease. Recommend correlation with liver function tests and hepatic disease. HIDA scan no evidence of acute or chronic cholecystitis, gallbladder ejection fraction 85% Continues to complain of right upper quadrant pain, will continue to monitor We will de-escalate antibiotics to Augmentin, stop hydrocodone Hemodynamic instability likely secondary to overdose, some component of possible serotonin syndrome, TCA overdose -Resolved QTC prolongation, resolved, Currently on 96-hour hold. 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
--- NOTE | 2021-01-30 18:06 | P.NPUPN_ITS ---
Subjective NPU Subjective: Interval history: Patient presents today reporting that he has tolerated the initiation of the Thorazine. He denies feeling worse and reports maybe feeling a little better. He continued to endorse anxiety and stated that in the past he had been on Klonopin and did ask about that being restarted. We agreed we would take a look at his history and consider it but did discuss concerns about it being a controlled substance. Mental Status Exam MSE Comments: This is an overweight versus obese white male in hospital gown with limited grooming and eye contact. No abnormal movements except mild psychomotor retardation. Cooperative with exam in no acute distress. Speech was limited and decreased rate and volume. Mood described as all right, affect subdued. Thought process organized. Thought content: Patient denied homicidal ideation, but endorsed suicidal ideation, no delusions reported or noted, he is endorsing auditory hallucinations but no visual hallucinations reported. Attention and concentration were intact and memory was unreliable but none were formally tested. He is alert and oriented x3. Insight and judgment are impaired, impulse control is impaired. Vitals/I&O/Wt Last Vital Signs Temp 98.0 F 01/30/21 21:40 Pulse 89 01/30/21 21:40 Resp 18 01/30/21 21:40 BP 106/75 01/30/21 21:40 Pulse Ox 100 01/30/21 21:40 Physical Exam Urinary Catheter Management^: García: Cath Placed During This Visit: yes, but has since been removed by the nurse Reason for Continuing Indwelling Catheter: Accurate Measurement of Urinary Output in Critically Ill Patients Urinary Catheter Date of Insertion: 01/25/21 Urinary Catheter Time of Insertion: 16:00 Date Urinary Catheter Removed: 01/27/21 Time Urinary Catheter Discontinued: 15:18 Data NPU : 01/30/21 07:09 01/30/21 07:09 Micro: Microbiology 01/26/21 06:43 Blood Culture - Final Blood NO GROWTH AFTER 5 DAYS 01/25/21 18:20 Blood Culture - Final Blood NO GROWTH AFTER 5 DAYS Microbiology 01/26/21 06:43 Blood Blood Culture - Final NO GROWTH AFTER 5 DAYS 01/25/21 18:20 Blood Blood Culture - Final NO GROWTH AFTER 5 DAYS A&P Additional A&P Information (1) Suicidal ideation: (2) Suicide attempt by drug overdose: (3) Hemodynamic instability: (4) QT prolongation: (5) Acute pancreatitis: (6) Altered mental status: (7) Beta laura toxicity: (8) TCA (tricyclic antidepressant) overdose of undetermined intent: (9) Abnormal ECG: (10) Psychosis: (11) Cluster B personality disorder: (12) Bipolar depression: Additional A&P Information This is a 35-year-old white male with a long history of psychiatric treatment and opiate addiction who presents for his third hospitalization in the last couple months and the fourth since August with recent increase in the dangerousness of his suicidal behavior which is new to his psychiatric presentations with reports of psychosis being at the heart of this but with concerns of borderline personality being at the heart of this. 1. Continue current medication. Start Thorazine 25 mg in the morning and afternoon and 50 mg at bedtime. 2. Continue every 15 minute checks for safety. 3. Encourage individual, group and milieu therapies. 4. Encourage sober living treatment after discharge at the highest level of care to which he is willing to commit. 5. We will work with treatment team to determine whether there is a suitable residential setting for Shayan. 6. Appreciate continued hospitalist follow-up. 7. Filed a 21-day hold. Involuntary Hold Information 96 Hour Hold: 96 Hour Involuntary Admission: Yes 96 Hour Hold Ending Date: 01/30/21 96 Hour Hold Ending Time: 00:01 Attestations NPU 2 Medical Necessity Statement*: Inpatient hospitalization is medically necessary and the clinically appropriate intervention at this time. We will monitor medica tions and make changes as indicated. Likely length of stay 7-10 days. Filed 21- day hold paperwork. Coding Level of Care Code Acute Web Operations Lead for Jordan Craft
[2021-01-30] MEDS: amoxicillin-clav 875-125 mg Tablet 1 TAB PO (18:08)
[2021-01-30] MEDS: trazodone 50 mg Tablet PO (20:50)
[2021-01-30 21:40] VITALS: BP 106/75; PULSE 89; RESP 18; TEMP 36.7; O2SAT 100
[2021-01-31 06:00] VITALS: RESP 16
--- NOTE | 2021-01-31 07:10 | P.NPUPN_ITS ---
Subjective NPU Subjective: Interval history: Patient presents today with no significant. He continues to be inquiring about restarting Klonopin and his treatment regimen. We continue to discuss our concerns about that as a plan. We discussed the risk-benefit and alternatives of increasing his Thorazine to 50 mg in the morning and afternoon and 100 mg at night and he understood agreed to proceed as is documented in his note. Mental Status Exam MSE Comments: This is an overweight versus obese white male in hospital gown with limited grooming and eye contact. No abnormal movements except mild p sychomotor retardation. Cooperative with exam in no acute distress. Speech was more spontaneous and decreased rate and volume. Mood described as okay, affect subdued. Thought process organized. Thought content: Patient denied homicidal ideation, but endorsed suicidal ideation, no delusions reported or noted, he is endorsing auditory hallucinations but no visual hallucinations reported. Attention and concentration were intact and memory was more reliable but none were formally tested. He is alert and oriented x3. Insight and judgment are limited, impulse control is limited. Vitals/I&O/Wt Last Vital Signs Temp 98.0 F 01/30/21 21:40 Pulse 89 01/30/21 21:40 Resp 16 01/31/21 06:00 BP 106/75 01/30/21 21:40 Pulse Ox 100 01/30/21 21:40 Physical Exam Urinary Catheter Management^: García: Cath Placed During This Visit: yes, but has since been removed by the nurse Reason for Continuing Indwelling Catheter: Accurate Measurement of Urinary Output in Critically Ill Patients Urinary Catheter Date of Insertion: 01/25/21 Urinary Catheter Time of Insertion: 16:00 Date Urinary Catheter Removed: 01/27/21 Time Urinary Catheter Discontinued: 15:18 Data NPU : 01/30/21 07:09 01/30/21 07:09 Micro: Microbiology 01/26/21 06:43 Blood Culture - Final Blood NO GROWTH AFTER 5 DAYS 01/25/21 18:20 Blood Culture - Final Blood NO GROWTH AFTER 5 DAYS Microbiology 01/26/21 06:43 Blood Blood Culture - Final NO GROWTH AFTER 5 DAYS 01/25/21 18:20 Blood Blood Culture - Final NO GROWTH AFTER 5 DAYS A&P Additional A&P Information (1) Suicidal ideation: (2) Suicide attempt by drug overdose: (3) Hemodynamic instability: (4) QT prolongation: (5) Acute pancreatitis: (6) Altered mental status: (7) Beta laura toxicity: (8) TCA (tricyclic antidepressant) overdose of undetermined intent: (9) Abnormal ECG: (10) Psychosis: (11) Cluster B personality disorder: (12) Bipolar depression: Additional A&P Information This is a 35-year-old white male with a long history of psychiatric treatment and opiate addiction who presents for his third hospitalization in the last couple months and the fourth since August with recent increase in the d angerousness of his suicidal behavior which is new to his psychiatric presentations with reports of psychosis being at the heart of this but with concerns of borderline personality being at the heart of this. 1. Continue current medication. Increase Thorazine to 50 mg in the morning and afternoon and 100 mg at bedtime. 2. Continue every 15 minute checks for safety. 3. Encourage individual, group and milieu therapies. 4. Encourage sober living treatment after discharge at the highest level of care to which he is willing to commit. 5. We will work with treatment team to determine whether there is a suitable residential setting for Shayan. 6. Appreciate continued hospitalist follow-up. 7. Filed a 21-day hold. Involuntary Hold Information 96 Hour Hold: 96 Hour Involuntary Admission: Yes 96 Hour Hold Ending Date: 01/30/21 96 Hour Hold Ending Time: 00:01 Attestations NPU Medical Necessity Statement*: Inpatient hospitalization is medically necessary and the clinically appropriate intervention at this time. We will monitor medications and make changes as indicated. Likely length of stay 7-10 days. Filed 21-day hold paperwork. Coding Level of Care Code Acute Corporate Travel Expert for Jordan [employer]
[2021-01-31] MEDS: haloperidol 5 mg Tablet PO (08:17)
[2021-01-31] MEDS: nicotine 2 mg Gum BUCCAL ×2 (08:17→13:47)
[2021-01-31] MEDS: chlorPROMazine 25 mg Tablet PO (08:17)
[2021-01-31] MEDS: chlorPROMazine 25 mg Tablet 50 MG PO ×3 (10:27→20:19)
[2021-01-31] MEDS: acetaminophen 325 mg Tablet 650 MG PO (11:08)
[2021-01-31] MEDS: hyDROXYzine 25 mg Capsule 50 MG PO (13:46)
[2021-01-31 14:00] VITALS: RESP 16; TEMP 36.4
[2021-01-31] MEDS: loperamide 2 mg Capsule PO (14:46)
[2021-01-31] MEDS: trazodone 50 mg Tablet PO (20:19)
[2021-01-31 21:58] VITALS: RESP 16
[2021-02-01 06:00] VITALS: RESP 16; BMI 26.4
[2021-02-01] MEDS: chlorPROMazine 25 mg Tablet 50 MG PO ×3 (08:42→20:32)
[2021-02-01] MEDS: loperamide 2 mg Capsule PO ×2 (08:43→18:01)
[2021-02-01] MEDS: hyDROXYzine 25 mg Capsule 50 MG PO ×2 (09:19→20:32)
[2021-02-01] MEDS: nicotine 2 mg Gum BUCCAL ×2 (09:20→15:16)
--- NOTE | 2021-02-01 11:57 | P.NPUPN_ITS ---
Subjective NPU Subjective: Interval history: Patient presents today reporting that he is doing okay with the increase in the Thorazine. He reports that he is doing a little better with the voices and suicidality. Continue to focus on anxiety and being able restart Klonopin. Mental Status Exam MSE Comments: This is an overweight versus obese white male in hospital gown with limited grooming and eye contact. No abnormal movements except mild psychomotor retardation. Cooperative with exam in no acute distress. Speech was more spontaneous and less decreased rate and volume. Mood described as a little better, but anxious, affect subdued. Thought process organized. Thought content: Patient denied homicidal ideation, but endorsed less suicidal ideation, no delusions reported or noted, he is endorsing less auditory hallucinations but no visual hallucinations reported. Attention and concentration were intact and memory was more reliable but none were formally tested. He is alert and orien peggy x3. Insight and judgment are limited, impulse control is limited. Vitals/I&O/Wt Last Vital Signs Temp 97.6 F 01/31/21 14:00 Pulse 89 01/30/21 21:40 Resp 16 02/01/21 06:00 BP 106/75 01/30/21 21:40 Pulse Ox 100 01/30/21 21:40 Weight last 48 hrs Weight 86.183 kg Physical Exam Urinary Catheter Management^: García: Cath Placed During This Visit: yes, but has since been removed by the nurse Reason for Continuing Indwelling Catheter: Accurate Measurement of Urinary Output in Critically Ill Patients Urinary Catheter Date of Insertion: 01/25/21 Urinary Catheter Time of Insertion: 16:00 Date Urinary Catheter Removed: 01/27/21 Time Urinary Catheter Discontinued: 15:18 Data NPU : 01/30/21 07:09 01/30/21 07:09 A&P Additional A&P Information (1) Suicidal ideation: (2) Suicide attempt by drug overdose: (3) Hemodynamic instability: (4) QT prolongation: (5) Acute pancreatitis: (6) Altered mental status: (7) Beta laura toxicity: (8) TCA (tricyclic antidepressant) overdose of undetermined intent: (9) Abnormal ECG: (10) Psychosis: (11) Cluster B personality disorder: (12) Bipolar depression: Additional A&P Information This is a 35-year-old white male with a long history of psychiatric treatment and opiate addiction who presents for his third hospitalization in the last couple months and the fourth since August with recent increase in the dangerousness of his suicidal behavior which is new to his psychiatric presentations with reports of psychosis being at the heart of this but with concerns of borderline personality being at the heart of this. 1. Continue current medication. We will consider Klonopin 0.25 mg p.o. twice daily. 2. Continue every 15 minute checks for safety. 3. Encourage individual, group and milieu therapies. 4. Encourage sober living treatment after discharge at the highest level of care to which he is willing to commit. 5. We will work with treatment team to determine whether there is a suitable residential setting for Shayan. 6. Appreciate continued hospitalist follow-up. 7. Filed a 21-day hold. Involuntary Hold Information 96 Hour Hold: 96 Hour Involuntary Admission: Yes 96 Hour Hold Ending Date: 01/30/21 96 Hour Hold Ending Time: 00:01 Attestations NPU Medical Necessity Statement*: Inpatient hospitalization is medically necessary and the clinically appropriate intervention at this time. We will monitor medications and make changes as indicated. Likely length of stay 7-10 days. Filed 21-day hold paperwork. Coding Level of Care Code Acute Solar Systems Designer for Jordan Craft
[2021-02-01] MEDS: OLANZapine 5 mg ODT PO ×2 (13:28→17:58)
[2021-02-01 14:00] VITALS: BP 96/64; PULSE 146; RESP 16; TEMP 36.8; O2SAT 96
[2021-02-01] MEDS: haloperidol 5 mg Tablet PO (14:47)
[2021-02-01] MEDS: lanolin oint 7 gm 1 APPLIC TOPICAL (14:47)
[2021-02-01 17:57] VITALS: PULSE 137
[2021-02-01] MEDS: trazodone 50 mg Tablet PO (20:33)
--- NOTE | 2021-02-01 20:35 | PC.NURSE ---
pt requested meds for sleep and anxiety. trazodone 50mg po for sleep and vistaril 50mg po for anxiety given.
[2021-02-01 20:56] VITALS: BP 103/60; PULSE 71; RESP 18; TEMP 36.7; O2SAT 95
--- NOTE | 2021-02-01 22:25 | PC.NURSE ---
pt resting quietly with both eyes closed at this time.
[2021-02-02 06:00] VITALS: BP 88/57; PULSE 82; RESP 17; TEMP 37; O2SAT 95
[2021-02-02] MEDS: chlorPROMazine 25 mg Tablet 50 MG PO ×3 (09:02→20:06)
[2021-02-02] MEDS: nicotine 2 mg Gum BUCCAL ×2 (09:02→16:19)
--- NOTE | 2021-02-02 09:03 | PC.NURSE ---
refused scheduled antibiotic
[2021-02-02] MEDS: hyDROXYzine 25 mg Capsule 50 MG PO (09:40)
--- NOTE | 2021-02-02 09:41 | PC.NURSE ---
PRN VISTARIL 50 MG GIVEN PO PER PT REQUEST FOR ANXIETY MEDICATION. PT CURRENTLY ATTENDING GROUP, FLAT AFFECT.
--- NOTE | 2021-02-02 11:31 | NPU.GN ---
[facility] Topic:Stressors Psych Education Worksheet General Mood of Group: Shayan did attend group therapy this morning. He participated with others in the group and shared experiences with others in the group and this commercial real estate underwriter. Shayan and this commercial real estate underwriter discussed more about his situation and he was educated how important it is to be medication compliant with his mental psychosis. Shayan did sign up for [facility] services with [facility] [place] as this commercial real estate underwriter aided patient in completing the paperwork. Intake packet completed.
[2021-02-02] MEDS: CLONazepam 0.5 mg Tablet 0.25 MG PO ×2 (12:27→20:06)
[2021-02-02 14:00] VITALS: BP 114/75; PULSE 97; RESP 20; TEMP 36.9; O2SAT 95
--- NOTE | 2021-02-02 14:16 | P.NPUPN_ITS ---
Subjective NPU Subjective: Interval history: Patient presents today reporting that he is feeling a little better. He endorses having continued anxiety and continued to inquire about Klonopin. We agreed to initiate Klonopin at a smaller dose and he was informed that any significant increase in doses would not happen in the hospital. His uncle with whom he lives contacted the treatment team and patient was wanting us to talk to him about treatment planning. Mental Status Exam MSE Comments: This is an overweight versus obese white male in hospital scrubs with limited grooming and eye contact. No abnormal movements except mild psychomotor retardation. Cooperative with exam in no acute distress. Speech was more spontaneous and less decreased rate and volume. Mood described as a little better, but anxious, affect subdued. Thought process organized. Thought content: Patient denied homicidal ideation, but endorsed less suicidal ideation, no delusions reported or noted, he is endorsing less auditory hallucinations but no visual hallucinations reported. Attention and concentration were intact and memory was more reliable but none were formally tested. He is alert and oriented x3. Insight and judgment are limited, impulse control is limited. Vitals/I&O/Wt Last Vital Signs Temp 98.6 F 02/02/21 06:00 Pulse 82 02/02/21 06:00 Resp 17 02/02/21 06:00 BP 88/57 02/02/21 06:00 Pulse Ox 95 02/02/21 06:00 Weight last 48 hrs Weight 86.183 kg Physical Exam Urinary Catheter Management^: García: Cath Placed During This Visit: yes, but has since been removed by the nurse Reason for Continuing Indwelling Catheter: Accurate Measurement of Urinary Output in Critically Ill Patients Urinary Catheter Date of Insertion: 01/25/21 Urinary Catheter Time of Insertion: 16:00 Date Urinary Catheter Removed: 01/27/21 Time Urinary Catheter Discontinued: 15:18 Data NPU : 01/30/21 07:09 01/30/21 07:09 A&P Additional A&P Information (1) Suicidal ideation: (2) Suicide attempt by drug overdose: (3) Hemodynamic instability: (4) QT prolongation: (5) Acute pancreatitis: (6) Altered mental status: (7) Beta laura toxicity: (8) TCA (tricyclic antidepressant) overdose of undetermined intent: (9) Abnormal ECG: (10) Psychosis: (11) Cluster B personality disorder: (12) Bipolar depression: Additional A&P Information This is a 35-year-old white male with a long history of psychiatric treatment and opiate addiction who presents for his third hospitalization in the last couple months and the fourth since August with recent increase in the dangerousness of his suicidal behavior which is new to his psychiatric presentations with reports of psychosis being at the heart of this but with concerns of borderline personality being at the heart of this. 1. Continue current medication. We started Klonopin 0.25 mg p.o. twice daily. 2. Continue every 15 minute checks for safety. 3. Encourage individual, group and milieu therapies. 4. Encourage sober living treatment after discharge at the highest level of care to which he is willing to commit. 5. We will work with treatment team to determine whether there is a suitable residential setting for Shayan. 6. Appreciate continued hospitalist follow-up. 7. Filed a 21-day hold. Involuntary Hold Information 96 Hour Hold: 96 Hour Involuntary Admission: Yes 96 Hour Hold Ending Date: 01/30/21 96 Hour Hold Ending Time: 00:01 Attestations NPU Medical Necessity Statement*: Inpatient hospitalization is medically necessary and the clinically appropriate intervention at this time. We will monitor medications and make changes as indicated. Likely length of stay 7-10 days. Filed 21-day hold paperwork. Coding Level of Care Code Acute Safe Deposit Box Rental Clerk for Jordan Craft
--- NOTE | 2021-02-02 19:14 | P.PN_ITS ---
Subjective Subjective: Interval history: States that he continues having discomfort in right upper quadrant. Says that he gets sharp pain especially after eating causing him to vomit. Denies any NSAID use. Denies alcohol use. Denies history of known PAD. Has not had endoscopic evaluation in the past. Vitals/I&O/Wt Last Vital Signs Temp 98.4 F 02/02/21 14:00 Pulse 97 02/02/21 14:00 Resp 20 H 02/02/21 14:00 BP 114/75 02/02/21 14:00 Pulse Ox 95 02/02/21 14:00 Weight last 48 hrs Weight 86.183 kg Physical Exam Const: COMMON NORMALS: no acute distress, patient oriented x3 and alert GENERAL APPEARANCE: cooperative NUTRITIONAL APPEARANCE: overweight ORIENTATION/CONSCIOUSNESS: Yes awake HENMT: COMMON NORMALS: oropharynx normal Neck/C-Spine: COMMON NORMALS: no JVD Resp: COMMON NORMALS: normal respiratory effort and clear to auscultation bilaterally AUSCULTATION: clear to auscultation bilaterally Cardio: COMMON NORMALS: no JVD, regular rhythm, S1 normal heart sound present, S2 normal heart sound present and No murmurs present (Cardio) RHYTHM: regular rhythm HEART SOUNDS: S1 normal heart sound present and S2 normal heart sound present GI: COMMON NORMALS: Normal to inspection, nondistended, normoactive bowel sounds present and Soft to palpation PALPATION: Yes Soft to palpation and Yes Tenderness to palpation present (GI) Details: RUQ (Although can press quite deeply growing slowly. Christianson sign equivocal, slowly takes deep breaths without pause.) Extremity: COMMON NORMALS: no joint enlargement and no pedal edema Neuro: COMMON NORMALS: patient oriented x3 and moves all extremities SENSORIUM/ORIENTATION: Yes alert Skin: COMMON NORMALS: no rashes or lesions noted GENERAL SKIN EXAM: no rashes or lesions noted Urinary Catheter Management^: García: Cath Placed During This Visit: yes, but has since been removed by the nurse Reason for Continuing Indwelling Catheter: Accurate Measurement of Urinary Output in Critically Ill Patients Urinary Catheter Date of Insertion: 01/25/21 Urinary Catheter Time of Insertion: 16:00 Date Urinary Catheter Removed: 01/27/21 Time Urinary Catheter Discontinued: 15:18 Data : 01/30/21 07:09 01/30/21 07:09 A&P Assessment and plan (1) Right upper quadrant pain: He continues to have pain in his right upper quadrant, currently states it is 8/10, although appears to be fairly comfortable speaking with me. Reports he has not been able to eat due to vomiting due to sharp pain in upper abdomen afte r eating. Discussed with him again regarding diagnostic studies so far. Apart from moderate thickening of gallbladder wall noted on ultrasonography, other diagnostic studies not suggestive of acute or chronic cholecystitis. No signs of ongoing infection or sepsis, although is empirically on Augmentin, and for now we will continue. Still he does have persistent discomfort. He inquired regarding surgical intervention at this time to remove the gallbladder. Discussed with him we would want him to follow-up with surgery, although at this time do not have compelling indication to subject him to surgery, but will follow closely. We will recheck laboratory studies again with CBC, CMP. Given he reports some postprandial symptoms with vomiting, although addressed see this recorded, will add also PPI, sucralfate. Discussed with him also noted enlargement of the liver on imaging. Will add hep atitis panel as well, although discussed his liver parameters are not suggestive of acute hepatitis. Laboratory parameters have not been suggestive of liver fibrosis or cirrhosis. Fatty liver infiltration is possible. Discussed with him enlargement of the liver could be contributing to his right u pper quadrant pain due to traction. Status: Acute (2) Beta laura toxicity: Status: Acute (3) TCA (tricyclic antidepressant) overdose of undetermined intent: Status: Acute (4) Psychosis: Status: Chronic (5) Acute pancreatitis: Lipase has not been elevated. Does not appear to provide history of chronic pancreatitis. Will ask in more detail. Suspect peripancreatic changes may have been secondary to gastritis/duodenitis, possibly contributing to his symptoms. Additional treatment as above. May benefit from eventual endoscopic evaluation in case of persistent symptoms. Status: Acute (6) Cluster B personality disorder: Status: Chronic (7) Bipolar depression: Status: Chronic (8) QT prolongation: Status: Acute (9) Abnormal ECG: Status: Acute (10) Hemodynamic instability: Status: Acute (11) Suicide attempt by drug overdose: Status: Acute (12) Suicidal ideation: Status: Acute Additional A&P Information Current goal of above polysubstance toxicity: Resolved CT abdomen and pelvis: Inconclusive for any gallbladder pathology Cannot conclusively rule out drug-induced acute pancreatitis. However no significant lipase elevation, Continue supportive care, regular diet CT abdominal has failed to show any necrosis Does have exquisite right upper quadrant tenderness, no significant LFT abnormalities, alk phos elevation, T bili elevation, continue to monitor Right upper quadrant ultrasound shows 1. Mild gallbladder wall thickening with edema measuring 5.6 mm. Gallbladder is somewhat contracted. No cholelithiasis. This may be due to hepatic disease. Gallbladder function could be further evaluated with HIDA scan. 2. Normal common bile duct. 3. Mild hepatomegaly with coarse echogenicity suspicious for parenchymal disease. Recommend correlation with liver function tests and hepatic disease. HIDA scan no evidence of acute or chronic cholecystitis, gallbladder ejection fraction 85% Continues to complain of right upper quadrant pain, will continue to monitor We will de-escalate antibiotics to Augmentin, stop hydrocodone Hemodynamic instability likely secondary to overdose, some component of possible serotonin syndrome, TCA overdose -Resolved QTC prolongation, resolved, Currently on 96-hour hold. Psychiatry consulted CODE STATUS: Full code Attestations Medical Necessity Statement*: Continue psychiatric admission, will reassess again with regards to persistent upper abdominal/right upper quadrant pain. Coding Level of Care Code Acute Guest Experience Captain for Chg [employer]wd Diagnoses Right upper quadrant pain R10.11 Beta laura toxicity TCA (tricyclic antidepressant) overdose of undetermined intent T43.014A Psychosis F29 Acute pancreatitis K85.90 Cluster B personality disorder F60.89 Bipolar depression F31.9 QT prolongation R94.31 Abnormal ECG R94.31 Hemodynamic instability R09.89 Suicide attempt by drug overdose T50.902A Suicidal ideation R45.851
[2021-02-02] MEDS: pantoprazole DR 40 mg Tablet PO (20:06)
[2021-02-02] MEDS: trazodone 50 mg Tablet PO (20:06)
[2021-02-02 21:02] VITALS: BP 100/67; PULSE 87; RESP 17; TEMP 36.7; O2SAT 96
[2021-02-02] MEDS: sucralfate 1 gm/10 mL Oral Liq UDC PO (21:12)
[2021-02-02] MEDS: amoxicillin-clav 875-125 mg Tablet 1 TAB PO (21:12)
[2021-02-03 05:52] VITALS: BP 81/46; PULSE 114; RESP 18; TEMP 37; O2SAT 96
--- NOTE | 2021-02-03 05:52 | PC.NURSE ---
charge nurse and BORE MILL OPERATOR FOR PLASTIC notified of pts vital signs
[2021-02-03] MEDS: sucralfate 1 gm/10 mL Oral Liq UDC PO ×2 (06:45→20:00)
[2021-02-03 07:40] LABS: Basophils % 0.5 %; Eosinophils # 0.3 10^3/uL (0.0-0.8); Eosinophils % 3.6 %; Hematocrit 45.5 % (42.0-52.0); Hemoglobin 15.2 g/dL (11.7-16.6); Lymphocytes % 24.5 %; Mean Corpuscular HGB Conc 33.4 g/dL (30.0-36.0); Mean Corpuscular Hemoglobin 28.6 pg (28.0-34.0); Mean Corpuscular Volume 85.7 fl (80-94); Mean Platelet Volume 10.4 fL (7.4-10.4); Monocytes # 0.6 10^3/uL (0.2-0.9); Neutrophils # 5.09 10^3/uL (1.8-7.7); Neutrophils % 63.9 %; Nucleated Red Blood Cells % 0 %; Platelet Count 262 10^3/cmm (130-400); Red Blood Count 5.31 10^6/uL (4.1-5.3); Red Cell Distribution Width 13.2 % (12.1-15.1)
[2021-02-03 07:59] LABS: Alanine Aminotransferase 14 U/L (0-41); Albumin Level 4.2 g/dL (3.5-5.2); Alkaline Phosphatase 89 IU/L (40-130); Anion Gap 16.9 (5-19); Aspartate Amino Transferase 12 U/L (0-40); Blood Urea Nitrogen 15 mg/dL (6-20); Calcium 9.4 mg/dL (8.5-10.5); Carbon Dioxide 23 mmol/L (22-29); Chloride 102 mmol/L (98-107); Creatinine Clr Calc Pharmacy 143.8183; Globulin 3.1 g/dL (1.3-4.6); Glomerular Filtration Rate 109.4 mL/min (90-130); Glucose 110 mg/dL (65-115); Osmolality Calculated 287 mOsm/kg (285-295); Potassium 3.9 mmol/L (3.5-5.1); Sodium 138 mmol/L (136-145); Total Bilirubin 0.4 mg/dL (0.15-1.2); Total Protein 7.3 g/dL (6.6-8.7)
[2021-02-03] MEDS: CLONazepam 0.5 mg Tablet 0.25 MG PO ×2 (08:01→20:00)
[2021-02-03] MEDS: nicotine 2 mg Gum BUCCAL ×4 (08:02→20:00)
[2021-02-03] MEDS: pantoprazole DR 40 mg Tablet PO (08:02)
[2021-02-03] MEDS: chlorPROMazine 25 mg Tablet 50 MG PO ×3 (08:02→20:00)
--- NOTE | 2021-02-03 08:02 | PC.NURSE ---
refused scheduled Augmentin this morning
--- NOTE | 2021-02-03 11:37 | NPU.GN ---
[facility] Topic:Grounding Thoughts, Coping Skills General Mood of Group: Shayan did very well and attended group today. Shayan was social and in a good mood today.
[2021-02-03] MEDS: hyDROXYzine 25 mg Capsule 50 MG PO (12:58)
--- NOTE | 2021-02-03 12:59 | PC.NURSE ---
PRN VISTARIL 50 MG GIVEN PO PER PT C/O STATED ANXIETY. FLAT AFFECT NOTED.
[2021-02-03 14:00] VITALS: BP 101/68; PULSE 96; RESP 17; TEMP 36.6; O2SAT 97
--- NOTE | 2021-02-03 14:18 | W.PM.NPUPNS ---
Subjective NPU Subjective: Interval history: Patient presents today reporting that he is wondering what the reason for the 21-day hold is. We had a lengthy discussion about the treatment he was concerns and what this freelance writer would be testifying to as a hearing tomorrow. He reported that he understood our position. We discussed increasing his trazodone to 100 mg p.o. nightly and he understood and agreed proceed as documented in this note. We discussed our desire to keep him a little longer given the severity of the recent suicide attempt leading him into the ICU his last 2 visits. Mental Status Exam MSE Comments: This is an overweight versus obese white male in hospital scrubs with limited grooming and eye contact. No abnormal movements except mild psychomotor retardation. Cooperative with exam in no acute distress. Speech was more spontaneous and more normal rate and volume. Mood described as a little better, but anxious, affect subdued. Thought process organized. Thought content: Patient denied homicidal ideation, but endorsed less suicidal ideation, no delusions reported or noted, he is endorsing less auditory hallucinations but no visual hallucinations reported. Attention and concentration were intact and memory was more reliable but none were formally tested. He is alert and oriented x3. Insight and judgment are limited, impulse control is limited. Stable MRSA Vitals/I&O/Wt Last Vital Signs Temp 98.6 F 02/03/21 05:52 Pulse 114 H 02/03/21 05:52 Resp 18 02/03/21 05:52 BP 81/46 02/03/21 05:52 Pulse Ox 96 02/03/21 05:52 Physical Exam Urinary Catheter Management^: García: Cath Placed During This Visit: yes, but has since been removed by the nurse Reason for Continuing Indwelling Catheter: Accurate Measurement of Urinary Output in Critically Ill Patients Urinary Catheter Date of Insertion: 01/25/21 Urinary Catheter Time of Insertion: 16:00 Date Urinary Catheter Removed: 01/27/21 Time Urinary Catheter Discontinued: 15:18 Data NPU : 02/03/21 07:25 02/03/21 07:25 A&P Additional A&P Information (1) Suicidal ideation: (2) Suicide attempt by drug overdose: (3) Hemodynamic instability: (4) QT prolongation: (5) Acute pancreatitis: (6) Altered mental status: (7) Beta laura toxicity: (8) TCA (tricyclic antidepressant) overdose of undetermined intent: (9) Abnormal ECG: (10) Psychosis: (11) Cluster B personality disorder: (12) Bipolar depression: Additional A&P Information This is a 35-year-old white male with a long history of psychiatric treatment and opiate addiction who presents for his third hospitalization in the last couple months and the fourth since August with recent increase in the dangerousness of his suicidal behavior which is new to his psychiatric presentations with reports of psychosis being at the heart of this but with concerns of borderline personality being at the heart of this. 1. Continue current medication. Increase trazodone 200 mg p.o. nightly 2. Continue every 15 minute checks for safety. 3. Encourage individual, group and milieu therapies. 4. Encourage sober living treatment after discharge at the highest level of care to which he is willing to commit. 5. We will work with treatment team to determine whether there is a suitable residential setting for Shayan. 6. Appreciate continued hospitalist follow-up. 7. 21-day hold hearing tomorrow. Involuntary Hold Information 96 Hour Hold: 96 Hour Involuntary Admission: Yes 96 Hour Hold Ending Date: 01/30/21 96 Hour Hold Ending Time: 00:01 Attestations NPU Medical Necessity Statement*: Medical Necessity Statement* Inpatient hospitalization is medically necessary and the clinically appropriate intervention at this time. We will monitor medications and make changes as indicated. Likely length of stay 6-9 days. Filed 21-day hold paperwork. Coding Level of Care Code Acute Supervisor Furnace Room for Jordan Craft
--- NOTE | 2021-02-03 17:53 | PM.PN ---
Subjective Subjective: Interval history: Still having pain in the right upper quadrant. Discussed with him results of additional studies obtained this morning. With unremarkable CBC and CMP studies including liver parameters. He remains afebrile. Discussed initiation of PPI, sucralfate. Vitals/I&O/Wt Last Vital Signs Temp 97.8 F 02/03/21 14:00 Pulse 96 02/03/21 14:00 Resp 17 02/03/21 14:00 BP 101/68 02/03/21 14:00 Pulse Ox 97 02/03/21 14:00 Physical Exam Const: COMMON NORMALS: no acute distress, patient oriented x3 and alert GENERAL APPEARANCE: cooperative NUTRITIONAL APPEARANCE: overweight ORIENTATION/CONSCIOUSNESS: Yes awake HENMT: COMMON NORMALS: oropharynx normal Neck/C-Spine: COMMON NORMALS: no JVD Resp: COMMON NORMALS: normal respiratory effort and clear to auscultation bilaterally AUSCULTATION: clear to auscultation bilaterally Cardio: COMMON NORMALS: no JVD, regular rhythm, S1 normal heart sound present, S2 normal heart sound present and No murmurs present (Cardio) RHYTHM: regular rhythm HEART SOUNDS: S1 normal heart sound present and S2 normal heart sound present GI: COMMON NORMALS: Normal to inspection, nondistended, normoactive bowel sounds present and Soft to palpation PALPATION: Yes Soft to palpation and Yes Tenderness to palpation present (GI) Details: RUQ (But also tender abdominal wall when pinched, w/o signs of rash or swelling) Extremity: COMMON NORMALS: no joint enlargement and no pedal edema Neuro: COMMON NORMALS: patient oriented x3 and moves all extremities SENSORIUM/ORIENTATION: Yes alert Skin: COMMON NORMALS: no rashes or lesions noted GENERAL SKIN EXAM: no rashes or lesions noted Urinary Catheter Management^: García: Cath Placed During This Visit: yes, but has since been removed by the nurse Reason for Continuing Indwelling Catheter: Accurate Measurement of Urinary Output in Critically Ill Patients Urinary Catheter Date of Insertion: 01/25/21 Urinary Catheter Time of Insertion: 16:00 Date Urinary Catheter Removed: 01/27/21 Time Urinary Catheter Discontinued: 15:18 Data : 02/03/21 07:25 02/03/21 07:25 A&P Assessment and plan (1) Right upper quadrant pain: Reports he is feeling about the same. Continues to have pain in right upper quadrant. Discussed with him results of repeat studies this morning with entirely normal CBC, CMP with unremarkable liver parameters. He remains afebrile, without signs of acute infection. We have initiated PPI, sucralfate. On examination he does appear to have pain also to gentle pinching of skin/subcutaneous tissue around the right side of the abdomen. No rash or edema noted to suggest cellulitis or panniculitis, however, cannot exclude possibility that the abdominal wall is contributing. Discussed with him we will add in addition to the measures above and topical capsaicin applied daily to see if this may help relieve abdominal wall symptoms. We will continue to reassess condition. Continue Tylenol as needed for pain. Follow-up with surgery after discharge for additional assessment of reported pain with otherwise unexplained moderate gallbladder wall thickening. Continue for now with empiric antibiotic. Discussed with him also noted enlargement of the liver on imaging. Will add hepatitis panel as well, although discussed his liver parameters are not suggestive of acute hepatitis. Laboratory parameters have not been suggestive of liver fibrosis or cirrhosis. Fatty liver infiltration is possible. Discussed with him enlargement of the liver could be contributing to his right upper quadrant pain due to traction. Status: Acute (2) Beta laura toxicity: Status: Acute (3) TCA (tricyclic antidepressant) overdose of undetermined intent: Status: Acute (4) Psychosis: Status: Chronic (5) Acute pancreatitis: Lipase has not been elevated. Does not appear to provide history of chronic pancreatitis. Will ask in more detail. Suspect peripancreatic changes may have been secondary to gastritis/duodenitis, possibly contributing to his symptoms. Additional treatment as above. May benefit from eventual endoscopic evaluation in case of persistent symptoms. Status: Acute (6) Cluster B personality disorder: Status: Chronic (7) Bipolar depression: Status: Chronic (8) QT prolongation: Status: Acute (9) Abnormal ECG: Status: Acute (10) Hemodynamic instability: Status: Acute (11) Suicide attempt by drug overdose: Status: Acute (12) Suicidal ideation: Status: Acute Additional A&P Information Current goal of above polysubstance toxicity: Resolved CT abdomen and pelvis: Inconclusive for any gallbladder pathology Cannot conclusively rule out drug-induced acute pancreatitis. However no significant lipase elevation, Continue supportive care, regular diet CT abdominal has failed to show any necrosis Does have exquisite right upper quadrant tenderness, no significant LFT abnormalities, alk phos elevation, T bili elevation, continue to monitor Right upper quadrant ultrasound shows 1. Mild gallbladder wall thickening with edema measuring 5.6 mm. Gallbladder is somewhat contracted. No cholelithiasis. This may be due to hepatic disease. Gallbladder function could be further evaluated with HIDA scan. 2. Normal common bile duct. 3. Mild hepatomegaly with coarse echogenicity suspicious for parenchymal disease. Recommend correlation with liver function tests and hepatic disease. HIDA scan no evidence of acute or chronic cholecystitis, gallbladder ejection fraction 85% Continues to complain of right upper quadrant pain, will continue to monitor We will de-escalate antibiotics to Augmentin, stop hydrocodone Hemodynamic instability likely secondary to overdose, some component of possible serotonin syndrome, TCA overdose -Resolved QTC prolongation, resolved, Attestations Medical Necessity Statement*: Continue psychiatric evaluation and care. Coding Level of Care Code Acute Cone Operator for Chg Fwd Diagnoses Right upper quadrant pain R10.11 Beta laura toxicity TCA (tricyclic antidepressant) overdose of undetermined intent T43.014A Psychosis F29 Acute pancreatitis K85.90 Cluster B personality disorder F60.89 Bipolar depression F31.9 QT prolongation R94.31 Abnormal ECG R94.31 Hemodynamic instability R09.89 Suicide attempt by drug overdose T50.902A Suicidal ideation R45.851
[2021-02-03] MEDS: trazodone 50 mg Tablet PO ×2 (20:01→20:05)
[2021-02-03] MEDS: amoxicillin-clav 875-125 mg Tablet 1 TAB PO (20:01)
[2021-02-03 20:31] VITALS: BP 121/73; PULSE 94; RESP 19; O2SAT 97
[2021-02-03 22:13] LABS: Hepatitis A Antibody IgM Non-Reactive (Nonreactive); Hepatitis B Core IgM Non-Reactive (Nonreactive); Hepatitis B Surface Antigen Non-Reactive (Nonreactive); Hepatitis C Virus Antibody Non-Reactive (Nonreactive)
[2021-02-04 06:00] VITALS: BP 112/68; PULSE 67; RESP 18; O2SAT 96
[2021-02-04] MEDS: sucralfate 1 gm/10 mL Oral Liq UDC PO ×4 (07:22→20:50)
[2021-02-04] MEDS: nicotine 2 mg Gum BUCCAL ×5 (07:27→17:51)
[2021-02-04] MEDS: CLONazepam 0.5 mg Tablet 0.25 MG PO ×2 (09:26→20:49)
[2021-02-04] MEDS: chlorPROMazine 25 mg Tablet 50 MG PO ×3 (09:26→20:49)
[2021-02-04] MEDS: acetaminophen 325 mg Tablet 650 MG PO (09:26)
[2021-02-04] MEDS: pantoprazole DR 40 mg Tablet PO (09:26)
[2021-02-04] MEDS: capsaicin 0.025% cream 60 gm 1 APPLIC TOPICAL (12:13)
--- NOTE | 2021-02-04 12:41 | NPU.GN ---
[facility] Topic: Self Care Bingo/ Crisis Plan Work Sheet General Mood of Group: Shayan did attend and participate in group today. His demeanour was good and he was social in group with this designer writer and others. Shayan seems more stable than prior.
[2021-02-04] MEDS: OLANZapine 5 mg ODT PO (12:46)
[2021-02-04 14:00] VITALS: BP 108/73; PULSE 92; RESP 17; TEMP 36.2; O2SAT 96
[2021-02-04] MEDS: haloperidol 5 mg Tablet PO (15:31)
--- NOTE | 2021-02-04 16:13 | W.PM.NPUPNS ---
Subjective NPU Subjective: Interval history: Patient presents today reporting that he is doing better and thinking he is ready to go home. We had a long conversation about our concerns and also went to the [facility] where he was put on a 96-hour hold but represented himself quite well. We discussed with his uncle putting some different processes in place to protect patient against himself. He reports that he is eating and sleeping better and that his symptoms are continuing to diminish. Mental Status Exam MSE Comments: This is an overweight versus obese white male in hospital scrubs with limited grooming and eye contact. No abnormal movements except mild psychomotor retardation. Cooperative with exam in no acute distress. Speech was more spontaneous and more normal rate and volume. Mood described as better, affect less subdued. Thought process organized. Thought content: Patient denied suicidal or homicidal ideation, no delusions reported or noted, he is endorsing less auditory hallucinations but no visual hallucinations reported. Attention and concentration were intact and memory was more reliable but none were formally tested. He is alert and oriented x3. Insight and judgment are limited, impulse control is limited. Vitals/I&O/Wt Last Vital Signs Temp 97.2 F L 02/04/21 14:00 Pulse 96 02/04/21 14:00 Resp 17 02/04/21 14:00 BP 101/68 02/04/21 14:00 Pulse Ox 97 02/04/21 14:00 Physical Exam Urinary Catheter Management^: García: Cath Placed During This Visit: yes, but has since been removed by the nurse Reason for Continuing Indwelling Catheter: Accurate Measurement of Urinary Output in Critically Ill Patients Urinary Catheter Date of Insertion: 01/25/21 Urinary Catheter Time of Insertion: 16:00 Date Urinary Catheter Removed: 01/27/21 Time Urinary Catheter Discontinued: 15:18 Data NPU : 02/03/21 07:25 02/03/21 07:25 A&P Additional A&P Information (1) Suicidal ideation: (2) Suicide attempt by drug overdose: (3) Hemodynamic instability: (4) QT prolongation: (5) Acute pancreatitis: (6) Altered mental status: (7) Beta laura toxicity: (8) TCA (tricyclic antidepressant) overdose of undetermined intent: (9) Abnormal ECG: (10) Psychosis: (11) Cluster B personality disorder: (12) Bipolar depression: Additional A&P Information This is a 35-year-old white male with a long history of psychiatric treatment and opiate addiction who presents for his third hospitalization in the last couple months and the fourth since August with recent increase in the dangerousness of his suicidal behavior which is new to his psychiatric presentations with reports of psychosis being at the heart of this but with concerns of borderline personality being at the heart of this. 1. Continue current medication. Increase trazodone to 100 mg p.o. nightly 2. Continue every 15 minute checks for safety. 3. Encourage individual, group and milieu therapies. 4. Encourage sober living treatment after discharge at the highest level of care to which he is willing to commit. 5. We will work with treatment team to determine whether there is a suitable residential setting for Shayan. 6. Appreciate continued hospitalist follow-up. 7. 21-day hold granted. Involuntary Hold Information 96 Hour Hold: 96 Hour Involuntary Admission: Yes 96 Hour Hold Ending Date: 01/30/21 96 Hour Hold Ending Time: 00:01 Attestations NPU Medical Necessity Statement*: Inpatient hospitalization is medically necessary and the clinically appropriate intervention at this time. We will monitor medications and make changes as indicated. Likely length of stay 4-7 days. Coding Level of Care Code Acute Neonatal Icu Coordinator for Jordan Craft
[2021-02-04] MEDS: trazodone 100 mg Tablet PO (21:19)
[2021-02-04 22:00] VITALS: BP 106/69; PULSE 87; RESP 19; O2SAT 99
[2021-02-05 06:00] VITALS: BP 115/76; PULSE 101; RESP 19; O2SAT 97
[2021-02-05] MEDS: sucralfate 1 gm/10 mL Oral Liq UDC PO ×3 (06:54→20:49)
[2021-02-05] MEDS: pantoprazole DR 40 mg Tablet PO (08:07)
[2021-02-05] MEDS: nicotine 2 mg Gum BUCCAL ×3 (08:07→20:48)
[2021-02-05] MEDS: CLONazepam 0.5 mg Tablet 0.25 MG PO ×2 (08:07→20:49)
[2021-02-05] MEDS: loperamide 2 mg Capsule PO ×3 (08:08→17:20)
[2021-02-05] MEDS: chlorPROMazine 25 mg Tablet 50 MG PO ×3 (08:08→20:48)
[2021-02-05] MEDS: lanolin oint 7 gm 1 APPLIC TOPICAL (08:08)
--- NOTE | 2021-02-05 12:13 | NPU.GN ---
[facility] Topic:Positive Thinking / Positive Affirmations General Mood of Group: Shayan attended group and did very well in group today. Shayan stated that he wanted this flex o writer operator to do group everyday from 8 am -12 pm. He expressed that he likes the groups. Without them there is nothing to do or going on besides sleeping and feels that people that dont have stiff to do will be depressed. This flex o writer operator mentioned that I will advocate for them and pass it along with their feedback.
[2021-02-05] MEDS: ondansetron 4 MG Tablet PO (12:46)
--- NOTE | 2021-02-05 12:48 | PC.NURSE ---
Patient presented to desk, reported he had episode of diarrhea, stomach cramps and sharp RLQ pain. Ate lunch without difficult but vomited afterward. + BS x 4 quardrants. skin cool, and dry. HR 86 regular. Medicated with PRN doses Immodium and Zofran. Dr. Escobar notified.
[2021-02-05] MEDS: acetaminophen 325 mg Tablet 650 MG PO (13:32)
[2021-02-05 13:54] VITALS: BP 102/70; PULSE 95; RESP 17; TEMP 36.6; O2SAT 97
[2021-02-05] MEDS: hyDROXYzine 25 mg Capsule 50 MG PO (15:19)
--- NOTE | 2021-02-05 15:22 | PC.NURSE ---
Patient presented to the nurses desk, flat affect after group, asking for vistaril and a sandwhich. Patient reports he is hungry since he threw up his lunch. Reports still having some pain but wants to eat. Gave a plain sandwhich and vistaril per prn orders.
[2021-02-05] MEDS: OLANZapine 5 mg ODT PO (17:17)
--- NOTE | 2021-02-05 18:23 | P.NPUPN_ITS ---
Subjective NPU Subjective: Interval history: Patient presents today reporting that he feels like he is more ready towards going home. We discussed about getting a medical sales associate in his home sooner rather than later to ensure that he is having some weekly assessments and working with his uncle to make sure that the medications are being managed. He reports he is feeling okay overall. Mental Status Exam MSE Comments: This is an overweight versus obese white male in hospital scrubs with limited grooming and eye contact. No abnormal movements except mild psychomotor retardation. Cooperative with exam in no acute distress. Speech was more spontaneous and more normal rate and volume. Mood described as better, affect less subdued. Thought process organized. Thought content: Patient denied suicidal or homicidal ideation, no delusions reported or noted, he is endorsing less auditory hallucinations but no visual hallucinations reported. Attention and concentration were intact and memory was more reliable but none were formally tested. He is alert and oriented x3. Insight and judgment are l imited, impulse control is limited. Vitals/I&O/Wt Last Vital Signs Temp 97.9 F 02/05/21 20:34 Pulse 82 02/05/21 20:34 Resp 18 02/05/21 20:34 BP 105/70 02/05/21 20:34 Pulse Ox 95 02/05/21 20:34 Physical Exam Urinary Catheter Management^: García: Cath Placed During This Visit: yes, but has since been removed by the nurse Reason for Continuing Indwelling Catheter: Accurate Measurement of Urinary Output in Critically Ill Patients Urinary Catheter Date of Insertion: 01/25/21 Urinary Catheter Time of Insertion: 16:00 Date Urinary Catheter Removed: 01/27/21 Time Urinary Catheter Discontinued: 15:18 Data NPU : 02/03/21 07:25 02/03/21 07:25 A&P Additional A&P Information (1) Suicidal ideation: (2) Suicide attempt by drug overdose: (3) Hemodynamic instability: (4) QT prolongation: (5) Acute pancreatitis: (6) Altered mental status: (7) Beta laura toxicity: (8) TCA (tricyclic antidepressant) overdose of undetermined intent: (9) Abnormal ECG: (10) Psychosis: (11) Cluster B personality disorder: (12) Bipolar depression: Additional A&P Information This is a 35-year-old white male with a long history of psychiatric treatment and opiate addiction who presents for his third hospitalization in the last couple months and the fourth since August with recent increase in the dangerousness of his suicidal behavior which is new to his psychiatric presentations with reports of psychosis being at the heart of this but with concerns of borderline personality being at the heart of this. 1. Continue current medication. 2. Continue every 15 minute checks for safety. 3. Encourage individual, group and milieu therapies. 4. Encourage sober living treatment after discharge at the highest level of care to which he is willing to commit. 5. We will work with treatment team to determine how to work with ongoing [facility] [place] to create a safe setting at home. 6. Appreciate continued hospitalist follow-up. 7. 21-day hold granted. Involuntary Hold Information 96 Hour Hold: 96 Hour Involuntary Admission: Yes 96 Hour Hold Ending Date: 01/30/21 96 Hour Hold Ending Time: 00:01 Attestations NPU Medical Necessity Statement*: make changes as indicated. Likely length of stay 3-6 days. Coding Level of Care Code Acute Paper Sorter for Jordan Craft
[2021-02-05 20:34] VITALS: BP 105/70; PULSE 82; RESP 18; TEMP 36.6; O2SAT 95
[2021-02-05] MEDS: trazodone 100 mg Tablet PO (20:49)
[2021-02-06 06:00] VITALS: RESP 16
[2021-02-06] MEDS: sucralfate 1 gm/10 mL Oral Liq UDC PO ×4 (06:22→21:01)
[2021-02-06] MEDS: CLONazepam 0.5 mg Tablet 0.25 MG PO ×2 (08:45→21:01)
[2021-02-06] MEDS: pantoprazole DR 40 mg Tablet PO ×2 (08:45→17:52)
[2021-02-06] MEDS: ondansetron 4 MG Tablet PO ×2 (08:45→17:26)
[2021-02-06] MEDS: nicotine 2 mg Gum BUCCAL ×4 (08:45→22:21)
[2021-02-06] MEDS: chlorPROMazine 25 mg Tablet 50 MG PO ×3 (08:45→21:02)
[2021-02-06] MEDS: acetaminophen 325 mg Tablet 650 MG PO (09:18)
--- NOTE | 2021-02-06 10:24 | NPU.GN ---
[facility] Topic: Good Secrets Vs. Bad Secrets Psycho Therapy General Mood of Group: Shayan did attend and participate in group today. He was getting frustrated with two female patients that were being loud and distracting group therapy. This sign writer hand redirected the patients in group at least 4 times to get back to the group therapy activity.
[2021-02-06] MEDS: hyDROXYzine 25 mg Capsule 50 MG PO ×3 (10:43→18:58)
--- NOTE | 2021-02-06 13:26 | PM.PN ---
Subjective Subjective: Interval history: Called for evaluation as patient reported he vomited the last several days some blackish substance. Continues to have some pain in his right side of his abdomen. He also complains of some diarrhea currently. Medications: Reviewed: Yes Vitals/I&O/Wt Last Vital Signs Temp 97.9 F 02/05/21 20:34 Pulse 82 02/05/21 20:34 Resp 16 02/06/21 06:00 BP 105/70 02/05/21 20:34 Pulse Ox 95 02/05/21 20:34 Physical Exam Narrative: EXAM NARRATIVE: General exam no distress, milk partially drinking and some chips at bedside Neck is supple Cardiovascular regular rate and rhythm Lungs clear Abdomen subjective tenderness right side of abdomen, no rebound, positive bowel sounds Extremities no cyanosis clubbing or edema Urinary Catheter Management^: García: Cath Placed During This Visit: yes, but has since been removed by the nurse Reason for Continuing Indwelling Catheter: Accurate Measurement of Urinary Output in Critically Ill Patients Urinary Catheter Date of Insertion: 01/25/21 Urinary Catheter Time of Insertion: 16:00 Date Urinary Catheter Removed: 01/27/21 Time Urinary Catheter Discontinued: 15:18 Data : 02/03/21 07:25 02/03/21 07:25 A&P Assessment and plan (1) Right upper quadrant pain: Extensive work-up has been completed including CT abdomen pelvis, HIDA scan, abdominal ultrasound. No definitive cause has been delineated. Although he reports he does not feel like eating there is evidence of otherwise at bedside. He is now complaining of vomiting up some blackish material. I discussed with him he will need to let the nurses know immediately should this happen again Repeat laboratory including CBC, CMP, lipase, urinalysis, stool Hemoccult, INR Increase Protonix to twice daily Status: Acute (2) Beta laura toxicity: Resolved Status: Acute (3) TCA (tricyclic antidepressant) overdose of undetermined intent: Status: Acute (4) Psychosis: Status: Chronic (5) Acute pancreatitis: No evidence of this clinically on admission. Repeat lipase today. Had some stranding around the pancreas on admission CT. Status: Acute (6) Cluster B personality disorder: Status: Chronic (7) Bipolar depression: Status: Chronic (8) QT prolongation: Status: Acute (9) Abnormal ECG: Status: Acute (10) Hemodynamic instability: Status: Acute (11) Suicide attempt by drug overdose: Status: Acute (12) Suicidal ideation: Status: Acute Additional A&P Information Patient reports of diarrhea. Check stool Hemoccult, add C. difficile. Discontinue Augmentin. I do not believe this needs to be continued currently. Attestations Medical Necessity Statement*: As per primary Coding Level of Care Code Acute Rig Mechanic for Chg Fwd Diagnoses Right upper quadrant pain R10.11 Beta laura toxicity TCA (tricyclic antidepressant) overdose of undetermined intent T43.014A Psychosis F29 Acute pancreatitis K85.90 Cluster B personality disorder F60.89 Bipolar depression F31.9 QT prolongation R94.31 Abnormal ECG R94.31 Hemodynamic instability R09.89 Suicide attempt by drug overdose T50.902A Suicidal ideation R45.851
[2021-02-06 14:00] VITALS: BP 129/66; PULSE 79; RESP 16; TEMP 36.2; O2SAT 97
[2021-02-06 14:07] LABS: Add Urine Culture? No; Bacteria Urine TRACE /hpf; Bilirubin Urine Neg (Negative); Blood Urine Neg (Negative); Glucose Urine UA Norm (Normal); Ketones Urine 1+ (Negative); Leukocyte Esterase Urine Negative (Negative); Mucus Urine TRACE /hpf; Nitrate Urine Negative (Negative); Protein Urine Neg (Negative); RBC Urine 0-4 /hpf (0-2); Squamous Epithelial Cell Urine 0-4 /hpf (0-5); Urine Appearance Clear (CLEAR); Urine Color Yellow (Yellow); Urobilinogen Urine Norm (Negative); WBC Urine 0-4 /hpf (0-5); pH Urine 5 (5-7)
[2021-02-06 15:33] LABS: Basophils # 0.1 10^3/uL (0.0-0.1); Basophils % 0.5 %; Eosinophils # 0.2 10^3/uL (0.0-0.8); Eosinophils % 2.3 %; Hematocrit 39.9 % (42.0-52.0); Hemoglobin 13.3 g/dL (11.7-16.6); Lymphocytes # 2.6 10^3/uL (0.8-4.8); Lymphocytes % 27.3 %; Mean Corpuscular HGB Conc 33.3 g/dL (30.0-36.0); Mean Corpuscular Hemoglobin 28.3 pg (28.0-34.0); Mean Corpuscular Volume 84.9 fl (80-94); Mean Platelet Volume 10.2 fL (7.4-10.4); Monocytes # 0.6 10^3/uL (0.2-0.9); Monocytes % 6.8 %; Neutrophils # 5.86 10^3/uL (1.8-7.7); Neutrophils % 62.6 %; Nucleated Red Blood Cells % 0 %; Platelet Count 275 10^3/cmm (130-400); Red Cell Distribution Width 12.7 % (12.1-15.1); White Blood Count 9.4 10^3/uL (4.0-10.0)
[2021-02-06 15:45] LABS: INR 0.89 (0.8-1.2)
[2021-02-06 15:51] LABS: Alanine Aminotransferase 12 U/L (0-41); Alkaline Phosphatase 79 IU/L (40-130); Aspartate Amino Transferase 11 U/L (0-40); Blood Urea Nitrogen 13 mg/dL (6-20); Calcium 8.8 mg/dL (8.5-10.5); Carbon Dioxide 23 mmol/L (22-29); Chloride 103 mmol/L (98-107); Globulin 2.5 g/dL (1.3-4.6); Glomerular Filtration Rate 127.6 mL/min (90-130); Glucose 123 mg/dL (65-115); Lipase 92 U/L (13-60); Osmolality Calculated 287 mOsm/kg (285-295); Sodium 138 mmol/L (136-145); Total Bilirubin 0.3 mg/dL (0.15-1.2); Total Protein 6.5 g/dL (6.6-8.7)
--- NOTE | 2021-02-06 17:44 | P.NPUPN_ITS ---
Subjective NPU Subjective: Interval history: Patient presents today reporting that he would like to be discharged. We discussed the opportunity made to try to get a high risk case manager that would be visiting his house at least 1 week out to be discharged home and thus far we have failed. Process for high risk case manager is underway we then advised that it takes about 2 weeks before someone can be available to go out. After the hearing we had embraced uncles plan to be a more responsible individual in regards to his medications to avoid future overdoses. We discussed the possibility of us reconnecting with uncle and possibly discharging on Tuesday. He does not want to stay here for the weekend. Mental Status Exam MSE Comments: This is an overweight versus obese white male in hospital scrubs with limited grooming and eye contact. No abnormal movements except mild but resolving psychomotor retardation. Cooperative with exam in no acute distress. Speech was more normal rate and volume. Mood described as better, affect congruent. Thought process organized. Thought content: Patient denied suicidal or homicidal ideation, no delusions reported or noted, he is denying auditory hallucinations or visual hallucinations reported. Attention and concentration were intact and memory was more reliable but none were formally tested. He is alert and oriented x3. Insight and judgment are limited, but improving, impulse control is limited. Vitals/I&O/Wt Last Vital Signs Temp 97.9 F 02/06/21 21:18 Pulse 80 02/06/21 21:18 Resp 18 02/06/21 21:18 BP 110/70 02/06/21 21:18 Pulse Ox 97 02/06/21 21:18 Physical Exam Urinary Catheter Management^: García: Cath Placed During This Visit: yes, but has since been removed by the nurse Reason for Continuing Indwelling Catheter: Accurate Measurement of Urinary Output in Critically Ill Patients Urinary Catheter Date of Insertion: 01/25/21 Urinary Catheter Time of Insertion: 16:00 Date Urinary Catheter Removed: 01/27/21 Time Urinary Catheter Discontinued: 15:18 Data NPU : 02/06/21 15:19 02/06/21 15:19 A&P Additional A&P Information (1) Suicidal ideation: (2) Suicide attempt by drug overdose: (3) Hemodynamic instability: (4) QT prolongation: (5) Acute pancreatitis: (6) Altered mental status: (7) Beta laura toxicity: (8) TCA (tricyclic antidepressant) overdose of undetermined intent: (9) Abnormal ECG: (10) Psychosis: (11) Cluster B personality disorder: (12) Bipolar depression: Additional A&P Information This is a 35-year-old white male with a long history of psychiatric treatment and opiate addiction who presents for his third hospitalization in the last couple months and the fourth since August with recent increase in the dangerousness of his suicidal behavior which is new to his psychiatric presentations with reports of psychosis being at the heart of this but with concerns of borderline personality being at the heart of this. 1. Continue current medication. 2. Continue every 15 minute checks for safety. 3. Encourage individual, group and milieu therapies. 4. We will consider discharge on Tuesday. 5. We will likely be unable to have a high risk case manager that is functional prior to discharge which is preferable but we will work with uncle on a safety plan which includes the medications being locked up and maybe only having a 3-day supply of his medications in any given time. 6. Appreciate continued hospitalist follow-up. Involuntary Hold Information 96 Hour Hold: 96 Hour Involuntary Admission: Yes 96 Hour Hold Ending Date: 01/30/21 96 Hour Hold Ending Time: 00:01 Attestations NPU Medical Necessity Statement*: Inpatient hospitalization is medically necessary and the clinically appropriate intervention at this time. We will monitor medications and make changes as indicated. Likely length of stay 2-5 days. 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
[2021-02-06] MEDS: loperamide 2 mg Capsule PO (19:29)
[2021-02-06] MEDS: trazodone 100 mg Tablet PO (21:01)
[2021-02-06 21:18] VITALS: BP 110/70; PULSE 80; RESP 18; TEMP 36.6; O2SAT 97
[2021-02-07 06:00] VITALS: RESP 17
[2021-02-07] MEDS: sucralfate 1 gm/10 mL Oral Liq UDC PO ×4 (06:09→20:03)
--- NOTE | 2021-02-07 07:45 | W.PM.NPUPNS ---
Subjective NPU Subjective: Interval history: Patient presents today reporting that he would like to go home but he is being reasonable in his acceptance of the process. He continues to lobby to be returned to his [facility] will be been talking about avoidance of him being on 2 controlled substances. Otherwise he denies any issues other than sleep and reports that he is doing the best he can at this time. Mental Status Exam MSE Comments: This is an overweight versus obese white male in hospital scrubs with limited grooming and eye contact. No abnormal movements except mild but resolving psychomotor retardation. Cooperative with exam in no acute distress. Speech was more normal rate and volume. Mood described as better, affect congruent. Thought process organized. Thought content: Patient denied suicidal or homicidal ideation, no delusions reported or noted, he is denying auditory hallucinations or visual hallucinations reported. Attention and concentration were intact and memory was more reliable but none were formally tested. He is alert and oriented x3. Insight and judgment are limited, but improving, impulse control is limited. Vitals/I&O/Wt Last Vital Signs Temp 97.9 F 02/06/21 21:18 Pulse 80 02/06/21 21:18 Resp 18 02/06/21 21:18 BP 110/70 02/06/21 21:18 Pulse Ox 97 02/06/21 21:18 Physical Exam Urinary Catheter Management^: García: Cath Placed During This Visit: yes, but has since been removed by the nurse Reason for Continuing Indwelling Catheter: Accurate Measurement of Urinary Output in Critically Ill Patients Urinary Catheter Date of Insertion: 01/25/21 Urinary Catheter Time of Insertion: 16:00 Date Urinary Catheter Removed: 01/27/21 Time Urinary Catheter Discontinued: 15:18 Data NPU : 02/06/21 15:19 02/06/21 15:19 A&P Additional A&P Information (1) Suicidal ideation: (2) Suicide attempt by drug overdose: (3) Hemodynamic instability: (4) QT prolongation: (5) Acute pancreatitis: (6) Altered mental status: (7) Beta laura toxicity: (8) TCA (tricyclic antidepressant) overdose of undetermined intent: (9) Abnormal ECG: (10) Psychosis: (11) Cluster B personality disorder: (12) Bipolar depression: Additional A&P Information This is a 35-year-old white male with a long history of psychiatric treatment and opiate addiction who presents for his third hospitalization in the last couple months and the fourth since August with recent increase in the dangerousness of his suicidal behavior which is new to his psychiatric presentations with reports of psychosis being at the heart of this but with concerns of borderline personality being at the heart of this. 1. Continue current medication. 2. Continue every 15 minute checks for safety. 3. Encourage individual, group and milieu therapies. 4. We will consider discharge on Tuesday. 5. We will likely be unable to have a watch case polisher that is functional prior to discharge which is preferable but we will work with uncle on a safety plan which includes the medications being locked up and maybe only having a 3-day supply of his medications in any given time. 6. Appreciate continued hospitalist follow-up. Involuntary Hold Information 96 Hour Hold: 96 Hour Involuntary Admission: Yes 96 Hour Hold Ending Date: 01/30/21 96 Hour Hold Ending Time: 00:01 Attestations NPU Medical Necessity Statement*: Inpatient hospitalization is medically necessary and the clinically appropriate intervention at this time. We will monitor medications and make changes as indicated. Likely length of stay 1-4 days. 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
[2021-02-07] MEDS: CLONazepam 0.5 mg Tablet PO ×2 (08:55→20:03)
[2021-02-07] MEDS: pantoprazole DR 40 mg Tablet PO ×2 (08:55→17:10)
[2021-02-07] MEDS: chlorPROMazine 25 mg Tablet 50 MG PO ×3 (08:55→20:02)
[2021-02-07] MEDS: ondansetron 4 MG Tablet PO (11:57)
[2021-02-07] MEDS: acetaminophen 325 mg Tablet 650 MG PO ×2 (12:31→19:33)
[2021-02-07] MEDS: nicotine 2 mg Gum BUCCAL (12:31)
[2021-02-07] MEDS: lidocaine 5% Patch 1 PATCH TOPICAL (13:27)
[2021-02-07] MEDS: hyDROXYzine 25 mg Capsule 50 MG PO (13:37)
--- NOTE | 2021-02-07 13:38 | PC.NURSE ---
Administered Vistaril 50 mg PO for increasing anxiety. Will monitor for medication effectiveness.
--- NOTE | 2021-02-07 13:43 | PC.NURSE ---
After patient requested that this nurse notify provider about something for pain on right abdomen. Patient states that doctor had told him this am that she would be ordering him medications. This nurse notified provider and new orders placed for lidocaine patch. After placing patch on patient while in bed, patient came to nurses station stating that he needed medication for the pain. This nurse explained what doctor had stated and how she felt it was related to anxiety. This nurse offered Vistaril and patient accepted. When this nurse walked out of nurses station, lidocaine patch was noted to be laying on window seal.
[2021-02-07 14:00] VITALS: BP 108/73; PULSE 81; RESP 18; TEMP 36.1; O2SAT 98
--- NOTE | 2021-02-07 14:58 | P.PN_ITS ---
Subjective Subjective: Interval history: Seen this morning. He states that his pain is still there. Prior to coming to the hospital he bumped himself into a fence while playing with his dog. And he hit his right upper quadrant against the fence. He states since then it has been hurting. He says the Protonix and the sucralfate are not helping at all. All the tests have been normal as well. He is requesting for pain medication. Vitals/I&O/Wt Last Vital Signs Temp 97.9 F 02/06/21 21:18 Pulse 80 02/06/21 21:18 Resp 17 02/07/21 06:00 BP 110/70 02/06/21 21:18 Pulse Ox 97 02/06/21 21:18 Physical Exam Narrative: EXAM NARRATIVE: General: Alert oriented x3, patient seen and exami joshua in room 122. HEENT: Normocephalic, atraumatic, EOMI, breathing room air. Cardio: Regular rate rhythm, normal S1-S2, Respiratory: Clear to auscultation bilaterally, good air movement. No wheezes no rhonchi. GI: Abdomen soft, mildly tender to palpation in right upper quadrant. Nondistended, bowel sounds + RUQ pain seems to be musculoskeletal as it is associated with movement and tender to touch as well. Behavior: Appropriate and cooperative Extremities: Pulses 2+, no edema, no cyanosis Urinary Catheter Management^: García: Cath Placed During This Visit: yes, but has since been removed by the nurse Reason for Continuing Indwelling Catheter: Accurate Measurement of Urinary Output in Critically Ill Patients Urinary Catheter Date of Insertion: 01/25/21 Urinary Catheter Time of Insertion: 16:00 Date Urinary Catheter Removed: 01/27/21 Time Urinary Catheter Discontinued: 15:18 Data : 02/06/21 15:19 02/06/21 15:19 A&P Assessment and plan (1) Right upper quadrant pain: Status: Acute Attestations Medical Necessity Statement*: as per primary team. 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
[2021-02-07] MEDS: trazodone 100 mg Tablet PO (20:02)
[2021-02-07 21:13] VITALS: BP 90/56; PULSE 60; RESP 15; TEMP 36.6; O2SAT 99
--- NOTE | 2021-02-08 02:56 | PC.NURSE ---
Patient up at start of shift. Cooperative, clear thought process. Continues to have flat affect. Does endorse intermittent AH but states that the meds are effective for this. Denies current SI/HI. C/o lower abd pain rated at 7 at 1933. Took PRN Tylenol. Tylenol somewhat helpful. Dropped to at 4 at reassessment. Took PRN Trazodone with night meds at 2001. No further complaints. Has been in bed resting with eyes closed throughout night. No signs of distress noted.
[2021-02-08 06:00] VITALS: BP 86/53; PULSE 78; RESP 14; TEMP 36.8; O2SAT 99; BMI 26.4
[2021-02-08] MEDS: sucralfate 1 gm/10 mL Oral Liq UDC PO ×4 (07:28→20:06)
[2021-02-08] MEDS: chlorPROMazine 25 mg Tablet 50 MG PO ×3 (08:10→20:06)
[2021-02-08] MEDS: pantoprazole DR 40 mg Tablet PO ×2 (08:11→17:09)
[2021-02-08] MEDS: CLONazepam 0.5 mg Tablet PO ×2 (08:11→20:06)
[2021-02-08 09:34] LABS: Alanine Aminotransferase 11 U/L (0-41); Albumin Level 3.6 g/dL (3.5-5.2); Alkaline Phosphatase 72 IU/L (40-130); Blood Urea Nitrogen 15 mg/dL (6-20); Calcium 8.5 mg/dL (8.5-10.5); Carbon Dioxide 22 mmol/L (22-29); Chloride 104 mmol/L (98-107); Globulin 2.6 g/dL (1.3-4.6); Glomerular Filtration Rate 152.4 mL/min (90-130); Glucose 92 mg/dL (65-115); Osmolality Calculated 286 mOsm/kg (285-295); Sodium 138 mmol/L (136-145); Total Bilirubin 0.3 mg/dL (0.15-1.2); Total Protein 6.2 g/dL (6.6-8.7)
[2021-02-08 09:43] LABS: Aspartate Amino Transferase 11 U/L (0-40)
[2021-02-08] MEDS: nicotine 2 mg Gum BUCCAL ×4 (10:24→20:10)
[2021-02-08 10:52] LABS: Basophils # 0.1 10^3/uL (0.0-0.1); Basophils % 0.6 %; Eosinophils # 0.4 10^3/uL (0.0-0.8); Eosinophils % 3.2 %; Hematocrit 45.9 % (42.0-52.0); Hemoglobin 15.3 g/dL (11.7-16.6); Lymphocytes # 2.9 10^3/uL (0.8-4.8); Lymphocytes % 24.2 %; Mean Corpuscular HGB Conc 33.3 g/dL (30.0-36.0); Mean Corpuscular Hemoglobin 28.8 pg (28.0-34.0); Mean Corpuscular Volume 86.3 fl (80-94); Mean Platelet Volume 10.3 fL (7.4-10.4); Monocytes # 0.7 10^3/uL (0.2-0.9); Monocytes % 5.9 %; Neutrophils # 7.79 10^3/uL (1.8-7.7); Neutrophils % 65.5 %; Nucleated Red Blood Cells % 0 %; Platelet Count 330 10^3/cmm (130-400); Red Blood Count 5.32 10^6/uL (4.1-5.3); White Blood Count 11.9 10^3/uL (4.0-10.0)
[2021-02-08] MEDS: hyDROXYzine 25 mg Capsule 50 MG PO ×2 (11:11→17:19)
--- NOTE | 2021-02-08 11:11 | PC.NURSE ---
ADMINISTERED VISTARIL 50 MG PO FOR P/O INCREASING ANXIETY. WILL MONITOR FOR MEDICATION EFFECTIVENESS.
[2021-02-08] MEDS: haloperidol 5 mg Tablet PO (11:46)
--- NOTE | 2021-02-08 11:54 | P.NPUPN_ITS ---
Subjective NPU Subjective: Interval history: Patient continues to focus on discharge but continues to have reasonable response to the negative answer. Once again discussed the sleep and the possibility of him getting Lunesta after discharge since the inpatient pharmacy does not have. He reports that he would be open to having it prescribed at discharge. We discussed working with the treatment team and his uncle tomorrow to consider whether we have a safe plan that can be augmented with safety checks or anything. Mental Status Exam MSE Comments: This is an overweight versus obese white male in hospital scrubs with limited grooming and eye contact. No abnormal movements except mild but resolving psychomotor retardation. Cooperative with exam in no acute distress. Speech was more normal rate and volume. Mood described as better, affect congruent. Thought process organized. Thought content: Patient denied suicidal or homicidal ideation, no delusions reported or noted, he is denying auditory hallucinations or visual hallucinations reported. Attention and concentration were intact and memory was more reliable but none were formally tested. He is alert and oriented x3. Insight and judgment are limited, but improving, impulse control is limited. Vitals/I&O/Wt Last Vital Signs Temp 98.2 F 02/08/21 06:00 Pulse 78 02/08/21 06:00 Resp 14 02/08/21 06:00 BP 86/53 02/08/21 06:00 Pulse Ox 99 02/08/21 06:00 Weight last 48 hrs Weight 86.183 kg Physical Exam Urinary Catheter Management^: García: Cath Placed During This Visit: yes, but has since been removed by the nurse Reason for Continuing Indwelling Catheter: Accurate Measurement of Urinary Output in Critically Ill Patients Urinary Catheter Date of Insertion: 01/25/21 Urinary Catheter Time of Insertion: 16:00 Date Urinary Catheter Removed: 01/27/21 Time Urinary Catheter Discontinued: 15:18 Data NPU : 02/08/21 10:30 02/08/21 08:48 A&P Additional A&P Information (1) Suicidal ideation: (2) Suicide attempt by drug overdose: (3) Hemodynamic instability: (4) QT prolongation: (5) Acute pancreatitis: (6) Altered mental status: (7) Beta laura toxicity: (8) TCA (tricyclic antidepressant) overdose of undetermined intent: (9) Abnormal ECG: (10) Psychosis: (11) Cluster B personality disorder: (12) Bipolar depression: Additional A&P Information This is a 35-year-old white male with a long history of psychiatric treatment and opiate addiction who presents for his third hospitalization in the last couple months and the fourth since August with recent increase in the dangerousness of his suicidal behavior which is new to his psychiatric present ations with reports of psychosis being at the heart of this but with concerns of borderline personality being at the heart of this. 1. Continue current medication. 2. Continue every 15 minute checks for safety. 3. Encourage individual, group and milieu therapies. 4. We will consider discharge on Tomorrow. 5. We will likely be unable to have a child support case officer that is functional prior to discharge which is preferable but we will work with uncle on a safety plan which includes the medications being locked up and maybe only having a 3-day supply of his medications in any given time. 6. Appreciate continued hospitalist follow-up. Involuntary Hold Information 96 Hour Hold: 96 Hour Involuntary Admission: Yes 96 Hour Hold Ending Date: 01/30/21 96 Hour Hold Ending Time: 00:01 Attestations NPU 2 Medical Necessity Statement*: Inpatient hospitalization is medically necessary and the clinically appropriate intervention at this time. We will monitor medica tions and make changes as indicated. Likely length of stay 1-3 days. 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
[2021-02-08] MEDS: acetaminophen 325 mg Tablet 650 MG PO (13:33)
[2021-02-08 14:00] VITALS: BP 109/75; PULSE 91; RESP 20; TEMP 36.6; O2SAT 97
[2021-02-08] MEDS: OLANZapine 5 mg ODT PO (20:06)
[2021-02-08] MEDS: trazodone 100 mg Tablet PO (20:10)
--- NOTE | 2021-02-08 20:10 | PC.NURSE ---
pt requested sleep and anxiety meds, trazodone 100mg po for sleep and zyprexa zydis 5mg sl given.
[2021-02-08 20:21] VITALS: BP 100/68; PULSE 100; RESP 16; O2SAT 97
--- NOTE | 2021-02-08 23:30 | PC.NURSE ---
pt resting quietly with both eyes closed at this time.
[2021-02-09 06:00] VITALS: RESP 18
[2021-02-09] MEDS: sucralfate 1 gm/10 mL Oral Liq UDC PO ×2 (06:11→11:07)
[2021-02-09] MEDS: chlorPROMazine 25 mg Tablet 50 MG PO (08:05)
[2021-02-09] MEDS: CLONazepam 0.5 mg Tablet PO (08:05)
[2021-02-09] MEDS: pantoprazole DR 40 mg Tablet PO (08:05)
[2021-02-09] MEDS: nicotine 2 mg Gum BUCCAL ×3 (08:21→12:48)
--- NOTE | 2021-02-09 08:35 | PC.NURSE ---
This morning Jan told me he was getting discharge today. Asked him what his plan was, he responded to stay safe. Asked him if he could elaborate on that since the time he discharged he already had a plan to overdose. Stated, My meds are going to be continually monitored for me by my Uncle.
--- NOTE | 2021-02-09 08:58 | PC.NURSE ---
refused scheduled Capsaicin cream this morning
[2021-02-09 09:19] VITALS: RESP 18
[2021-02-09 09:20] VITALS: RESP 18
[2021-02-09] MEDS: hyDROXYzine 25 mg Capsule 50 MG PO (11:06)
--- NOTE | 2021-02-09 11:10 | DCPLANNER ---
IMM completed with pt and copy of rights were given to pt.
--- NOTE | 2021-02-09 12:17 | NPU.GN ---
[facility] NeuroPsych Unit Group Topic:Emotions General Mood of Group: Patient come to group on time, dressed appropriately in hospital scrubs. The patient was well groomed with good hygiene. The group discussed emotions and where we feel these emotions in our body. They were able to color coordinate the color to the emotion and color the specific emotion to the body part that they feel these emotions. Everyone shared in the group their specific emotions and where the emotion is felt on their body. There were some new patients in NPU from over the weekend. It was discussed with the group what 96 hour hold and 21 day holds were. We spoke about self admitting. We also spoke about [facility]'s Behavioral Health Care and the importance of after care. Patients were able to ask questions about [facility] Behavioral health and about NPU.
[2021-02-09] MEDS: acetaminophen 325 mg Tablet 650 MG PO (12:48)
--- NOTE | 2021-02-09 13:02 | P.NPUDS_ITS ---
Diagnoses at Discharge Discharge Diagnosis (1) Right upper quadrant pain: Status: Acute Permanent problem details: It seems patient's pain he has not had any more vomiting with any blackish material. We will continue Protonix and sucralfate for now. I will apply lidocaine patch to the area and see if that improves. Will reassess patient as needed Reason for Visit Reason for Visit: N/V, DIARRHEA, BLOOD IN STOOL Brief History: History of Present Illness Shayan Dickson is a 35 year old male who presented to the emergency department with the following report: Chief Complaint: Psychiatric Symptoms Stated Complaint: N/V, DIARRHEA, BLOOD IN STOOL Time Seen by Provider: 01/25/21 08:16 History of Present Illness: HPI Narrative: Patient states that he was having a lot of hallucinations been going on for quite a while and he took his pills last night. Hard to determine how many pills are were. Patient said he threw up soon afterwards. He presents here with suicide attempt and with vital signs stable , conversing normally. Does not appear in any acute distress. Said he felt nauseated earlier in the morning hours. The suicide attempt happened approximately 8 hours ago. MD complaint: suicidal ideation and feels depressed Onset (ago): year(s) History of same: Yes Associated psychiatric symptoms: depression, suicidal ideation, auditory hallucinations and visual hallucinations Associated symptoms: Reports auditory hallucinations, visual hallucinations, depression and suicidal ideation. He was admitted to the ICU for definitive treatment of the sequela from his overdose. A psychiatric consult was requested. Shayan presents today appearing as he normally does on presentation. Significant laissez-faire for his circumsta nce. He had no real explanation for his behavior. There was no antecedent event or nidus for his suicide attempt. He just reported that I'm suicidal I guess. He denies any them but that his uncle's house. He continues to be isolated and does not have any friends. This intensive suicidal gesture somewhat like the last 1 has been atypical for his history as a psychiatric patient. He reports that his voices Geo Serrano. However we discussed concerns that this may be related to his cluster B pathology and outside of his cognitive appreciation. He denied any changes in his life certainly none since his discharge January 19, 2021. But he is appearing less and less safe outside of the hospital. An excerpt of his last discharge note is included below for context as he denies any substantive changes. Per his 01/19/2021 [facility] psychiatric discharge summary: SI - STATES ATTEMPT MADE Brief History: Shayan Dickson is a 35 year old male who presented to the emergency department with the following report: Chief Complaint: Overdose Stated Complaint: SI - STATES ATTEMPT MADE Time Seen by Provider: 01/09/21 06:58 History of Present Illness: HPI Narrative: 35-year-old male presents emergency room states he took 30 Ambien last night 10 mg tablets note for 5:00 this morning took 66 mg tablets of Invega. He did not feel like it was effective in his attempts to kill himself so he then ingested a razor blade that he had been using to try to cut his left wrist there is superficial abrasions on the left wrist. Denies any hematemesis coffee-ground emesis he has presented to our emergency room in the past with ingestion of razor blades. MD complaint: intentional overdose Onset (ago): hour(s). He was admitted to the hospital for definitive treatment of those issues which i ncluded going to the OR and getting the razor cartridge removed which has been a behavior he has done for multiple times without known him since 2019 and tablets of medications were also removed during that ER visit. He was then monitored in the ICU and then transferred to the neuropsychiatric unit for definitive treatment of those issues. Today he presents with very limited historical information and is not really interested in speaking to me today. He had no clear reasoning behind his behavior at this point but also was very resistant to the conversation. We discussed the plan to hold his medications at least for the next day or so until we see how he responds to the over dosing of those medications and agreed that we would go from there. An excerpt of his last hospitalization which occurred in November is included below for context. Per his 12/17/2020 [facility] inpatient psychiatric evaluation: History of Present Illness Shayan Dickson is a 35 year old male who presented to the ED with the following report: Chief Complaint: Psychiatric Symptoms Stated Complaint: SI Time Seen by Provider: 12/16/20 08:45 History of Present Illness: HPI Narrative: 35-year-old male presents emergency room stating take 80 tablets of aspirin last night around 2 PM yesterday which makes it about 20 hours ago. He took some other pills along with that that were not labeled. He does state he was trying to kill himself. He states he had auditory hallucinations of voices telling him to kill himself. He has not had any hematemesis or coffee-ground emesis no hematochezia no melen a. He denies any dysuria urgency or frequency. He has tried to harm himself in the past. Evidently this was precipitated by some relationship issues. MD complaint: suicidal ideation and feels depressed Duration: constant History of same: Yes Relieving factors: none Exacerbating factors: none Context: not taking psychiatric medications and significant life stressor Associated psychiatric symptoms: depression, suicidal ideation, auditory hallucinations and visual hallucinations Associated symptoms: Reports auditory hallucinations, depression and suicidal ideation; Deny visual hallucinations, delusions, homicidal ideation or racing thoughts Treatments prior to arrival: none If self harm: admits thoughts of self harm, has plan and has acted on plan. Agreed to the neuropsychiatric unit for definitive treatment of those issues. Patient is well-known to this bid writer and to the unit from multiple hospitalizations with the last one being in August of this year. Excerpt of that note is included below for context and as he denies substantive changes. He does endorse however that he has not been back on his medication for reasons that he could not clarify. But he has been off of the medication and not doing as well he reports. He reports that his living arrangement is still fairly stable and he was worried that he was going continue with the suicidal thoughts he was having and so he went to come to the hospital, get restarted on his medication have his suicidality myron and get back on track overall with treatment. Part of his concern what some of the medication was helpful some of it he did not feel was. We agreed we would review his chart and try to get a sense of what direction we might go in the treatment particularly with bipolar disorder. Per his 09/11/2020 [facility] inpatient psychiatric evaluation: History of Present Illness Shayan Dickson is a 35 year old male who presented to the emergency department with the following report: Chief Complaint: Overdose Stated Complaint: SI Time Seen by Provider: 09/10/20 10:40 History of Present Illness: HPI Narrative: Patient is a 35-year-old male who comes to the ED with SI and overdose. Patient says around 5 AM today he took approximately 120 tablets of Tylenol p.m. to kill himself. Patient has history of schizophrenia. He states that he has been suicidal in the past and that currently he is hearing voices that are telling him to kill himself. He states he has been currently taking his psych meds as prescribed but over the last week he feels like they have been helping him. This past week he is hearing the voices more and more. He denies any visual hallucinations or HI. He endorses having a little bit of nausea currently but no other symptoms. Associated symptoms: Reports auditory hallucinations and suicidal ideation; Deny visual hallucinations or homicidal ideation. He was admitted to the neuropsychiatric unit for definitive treatment of those issues. Shayan presents today reporting that he had left ear over a year ago and went down to a friend's place in another state had been doing fairly well. He reports that his uncle started having problems never brought him back. He reports that the reason why he came in was that his voices were increasing and he needed to have some treatment for that. We reviewed his medications and the different ones he had been on identify something he could try. He reports the Zyprexa has been effective for him but that at some point after he left this with him over the Thorazine and the Thorazine stopping helpful. He also was very focused on Suboxone reporting that he is been taking it and he started to have withdrawal symptoms secondary to it not being prescribed. We were able to review his records and determined that he had not had an active prescription at this time. Explained to him our policy only prescribing Suboxone to people with active prescription he had already stated he had the medication available at home but then was very elusive about having somebody bring it to substantiate his claim that he has been taking less to preserve it as he tried to get an appointment. We discussed the risk-benefit alternatives of a trial of Geodon and he understood agreed proceed as documented in his note. He denied any substantive changes in his psychosocial history outside [place] so an excerpt from his previous note is included below. Per his 09/17/2019 [facility] inpatient psychiatric eval: History of Present Illness Shayan Dickson is a 34 year old male Shayan presented to the emergency room reporting a decompensation and wanting to secondary to running out of his medications. His report is that he had been taking his medications as prescribed but was not allowed to pick up operator his medication secondary to something to do with his insurance, that he did not understand. He reports that the medications that had been started in his last hospitalization were working fine and he was feeling optimistic about things, continuing to go in the right direction and improve, but as he got further away from them not being able to refill his medications, he started feeling worse and worse, and now he just reports that he is fed up with life and wanting to kill himself. He was admitted to the neuro- psychiatric unit for definitive treatment of those issues. We continued his current medications and agreed to do some investigation into his medications which were discontinued secondary to availability to make sure that it is not something that will prevent that in the future as well. We agreed that if we were able to identify that it was a glitch, that we would restart those medications and if we identify that it was going to be a problem moving forward, we would attempt an alternative treatment plan. He understood and agreed to proceed as is documented in this note. We reviewed his last hospitalization record from 06-25-19 and he denied any substantive changes since that time. An excerpt of that evaluation is included below. Per his last [facility] IP eval 06/25/2019: HPI NPU History of Present Illness Shayan Dickson is a 34 year old male who presents today reporting that he is doing okay. He reports that his Zyprexa was discontinued, but he could give no explanation for why that was the case. We discussed his repeat behavior from October of last year which was swallowing the ends of a couple BIC razors, which had already been used, and were fairly dull in this reported suicide attempt. He could not move away from the fact that it was a real and valid attempt and not some kind of gesture. He reported that he thought that if he took those that they would slice him but to be clear these were not actual razorblades that were open. This was little plastic tops of cheap razors that had double blades in them, but they are kind of contained in the plastic so there is some risk, but not extreme risk. The surgeon went in and took them out and had them sent away for testing. We discussed the fact that he does have intellectual disability within special education classes in school, has limited functioning in that way. He continues to live with his uncle and his five dogs. He reports that he will never do this thing with the razors again. We talked about the fact that if he did in fact succeed, that his dogs would be left alone. He reported that he thought about that, but there seemed to be limited connectivity. We reviewed his most recent psychiatric evaluation here and he denied any substantive changes in the history or psychosocial circumstances. Per recent [facility] eval 05/17/2019: HPI NPU History of Present Illness Chief complaint: the voices are so bad that I'm going to kill myself. History of present illness: Shayan Dickson is a 34 year old male who tells an undocumented fairly reasonable story of a life lived suffering auditory hallucinations to varying degrees. When he is doing well, he will hear muttering voices that do not cause him a great deal of difficulty. He states that he seldom is free of the voices. 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 3 months ago, the voices began getting worse. He is has no theory as to why they have gotten worse. 3 weeks ago, they began getting intrusive to the point where he was willing to end his life just to free himself from the torture from these voices. He hears a number of different voices. He is able to interpret who they are. They are from important people in his life. These include a woman that he knows and Her boyfriend, his stepbrother and his . they Say demeaning things in a very loud manner. They tell him that he should and they tell him how he should kill himself. in spite of having struggled with during much of his life, he cannot give any guidance as to what interventions have been helpful. He said that he took lithium for a while and it was quite helpful. However it stopped working. It is noted that he was hospitalized here in October 2018 and was discharged on a combination of Suboxone, Zyprexa, and citalopram. He can give no assessment as to whether the Zyprexa helped him with his voices. He says that if the voices are reduced, he will no longr be suicidal. He is ambivalent about symptoms of depression. He says that he does not do anything enjoyable and simply passes this time when his phone and taking care of animals around his arm. He reports good sleep. He has no specific suicide plan this time. He said suicide thoughts were proceeded by the worsening of the voices. His urine drug screen is negative. He is actively taking the Suboxone and receives it from an outpatient therapist. However he has not continued his medications otherwise from discharge in October 2018. Mental health history: history of this patient was very difficult to acquire. He talks very rapidly and in the low mumbling fashion. His thoughts are mildly disorganized.he reports that originally he grew up in [place] and that at one point he left a rehabilitation program there and moved to [place]. He was only in [place] for 3 months when there were some financial difficulties and he came to the [facility] in 2010. He gives no further history regarding mental health care. It is noted that he can give no advisement regarding any other medication trials that have had any effect positive for negative on his auditory hallucinations. notes from his admission to this unit in October 2018: 11/13/2018 Shayan presents today reporting that the situation with his razor blade centered around his loss of his fianc?e. He reports that his significant other had committed suicide about 3 days shy of 2 years of when he made this suicide attempt before admission. He reports that he was feeling very low without feeling a clear sense of relief. And he had read online that he swallowed a razor blade that it would go through certain parts and because it was internal organs you would not feel it as it was slicing through things and that he would bleed out in his sleep. He reports that when he woke up and was alive but had a rectal bleeding he got really anxious and that when he came to the hospital. He is passed the razor blade now and at this point he reports that he is feeling better and more optimistic. With his first day on the psychiatric unit we discussed the fact that we needed to observe him for a couple of days to get a sense of where he really is prior to being comfortable with discharge. We had filed a 21-day hold paperwork but were able to negotiate and get an agreement that he will work with us over the next few days with a plan for discharge at the beginning of the week. Hospital Course: Shayan presented to the unit after being in the ICU and followed by surgery secondary to the ingestion of a razor blade or at least razor blade containing item from the head of a razor. After being followed until the object had been defecated since they were unable to get it by surgical means he was transferred to the NPU. After he woke up alive he reports that he got himself to the hospital for help and reports that he did not have any lethality after awaking and felt a desire to get help and not continue with self-injurious suicidal behaviors. So after a few days in the ICU he spent a few days in the NPU where he was observed and each day denied any lethality and a desire to go home and continue with his life. His medications were continued. Once he got to the NPU he acclimated to the individual, group and milieu therapies. While he was in the hospital he had routine laboratory studies which were within normal limits except for a few outliers. Those can be seen below. He also had a general medical evaluation this was within normal limits and revealed no acute processes except for the issue with the intentional ingestion. At the time of discharge his mood had improved, his lethality had resolved and he was sleeping better. He endorsed the plan to take his medication as prescribed, continue with his recovery oriented outpatient treatments and abstain from drugs of abuse as well as self-injurious and suicidal behaviors. He had obtained all the benefits he could get from the inpatient unit so he was discharged. Social history:the patient is currently supporting himself through his disability payments. He lives with uncle who apparently has a farm. He spends much of his time helping his uncle with daily activities around the farm such as feeding animals and taking care of the general grounds. He engages in no enjoyable activities and largely spends his time playing on his phone. His uncle apparently is advanced in age and is concerned about Shayan's well-being as the uncle's health declines. Shayan's uncle has advised him to go to a rehabilitation program and get off the Suboxone so that eventually he can be placed in a half-way or residential care facility. Legal history:there is no history in the [place] public record of incarcerations or felony arrests. Past medical history: Allergies Escitalopram. NSAIDS (NON-STEROIDAL ANTI-INFLAMMA. Venlafaxine. SOCIAL HX: Heavy tobacco smoker (cigarette)- 1 pack per day. No alcohol use or drug use. No recent travel. PROBLEMS: Ulcerative Colitis. GI Bleeding. Depression. Bipolar Disorder. Colitis. ADDITIONAL SURGERIES: Appendectomy. . Mental Status Exam: the patient is an alert interpersonally engaged male. He is believed to be a reliable informant to the best of his ability as information that is provided is internally consistent and consistent with that in the chart. Appearance: hygiene is fair; no gross neurological deficits., gait is unremarkable; AIMS=0 Speech: Speech is she is rapid with indistinct enunciation with frequently makes some of the information difficult to assess. Thought processes: Thought processes are abstract. Judgment is adequate for safety. Associations: intact Psychotic processes: There is no indication of guarding or paranoia. There is no attention to the internal stimuli. auditory hallucinations are reported as above. He denied the presence of visual hallucinations. Judgment: Insight is good. Problem solving skills are adequate for safety. Orientation: The patient is oriented to person, place time and situation. Memory: no deficits noted in immediate, intermediate, or remote spheres. Attention: The patient is alert and interpersonally engaged. Language: Verbalizations are coherent. Fund of knowledge: Fund of knowledge is adequate. Affect/Mood: Affect is consistent with a depressed mood. he reported vague suicidal ideation without intent or plan. Affective range good Psychosis: perception unimpaired despite intrusive auditory hallucinations that he is experiencing.; reality testing intact. Diagnoses: schizophrenia?undifferentiated, acute Assessment:this is a difficult situation given that he has a long-standing history of schizophrenia but can give no feedback as to what medications have been tried without any success in the past. At this point, we will continue the Zyprexa 20 mg at bedtime and also provide when necessary dosing during the day with Geodon as needed for auditory hallucinations. He will continue with Suboxone and the Celexa. We will discuss the feasibility of placement in a rehabilitation program with social security benefits interviewer. If this is a reasonable possibility, tapering some from Suboxone will be discussed. Hospital Course Hospital Course The patient was admitted to the neuropsychiatric unit for definitive treatment of these issues. On the unit he slowly acclimated to the individual, group and milieu therapies. He had auditory hallucinations on admission and they gradually resolved as Geodon was started at 40 mg twice daily and gradually increased to 80 mg twice daily. He had no side effects on this medicine. Doxepin 25 mg was started for insomnia. He was receptive to treatment team recommendations and showed modest improvement and was able to contract for safety prior to discharge. During the hospitalization, patient had routine laboratory studies which were within normal limits except for few outliers. Additionally there was a general medical evaluation which was also within normal limits and revealed no new acute processes. Discharge Summary: At the time of discharge, psychosis and lethality were denied. Mood and anxiety were well managed. Patient endorsed a plan to avoid all drugs of abuse and follow-up with the aftercare recommendations of the treatment team. Patient was evaluated and deemed to be absent credible lethality, and had achieved the maximum benefit from an inpatient hospitalization, so was discharged. Hospital Course Hospital Course He slowly acclimated to the individual, group and milieu therapies. He was admitted after he had another suicide attempt after leaving and identifying that he was fine. He was placed on a 21-day hold and in the court we agreed that after discharge he got have access to medication as his uncle was going to put his medications in a locked box so that we would not be in an overdose of circumstance again. He contracted for safety outside of the hospital prior to discharge, but we had a lengthy discussion about this has been the way he has left the hospital recently. A child welfare caseworker was requested but he will have to wait for that being put into place for a couple of weeks. He endorsed that the medications were effective and would not affect him. During the hospital ization, patient had routine laboratory studies which were within normal limits except for few outliers, those issues were being managed by the hospitalist. Additionally there was a general medical evaluation which was also within normal limits and revealed no new acute processes except for those identified and treated by the hospitalist team. Discharge Summary: At the time of discharge, he denied psychosis or lethality. Mood and anxiety were well managed. Patient endorsed a plan to avoid all drugs of abuse and follow-up with the aftercare recommendations of the treatment team. Patient was evaluated and deemed to be absent credible lethality, a clear safety plan has been created with the sense of his own with whom he lives and had achieved the maximum benefit from an inpatient hospitalization, so was discharged. Involuntary Hold Information 96 Hour Hold: 96 Hour Involuntary Admission: Yes 96 Hour Hold Ending Date: 01/30/21 96 Hour Hold Ending Time: 00:01 Mental Status Exam MSE Comments: This is an overweight versus obese white male in hospital scrubs with limited grooming and eye contact. No abnormal movements except mild but resolving psychomotor retardation. Cooperative with exam in no acute distress. Speech was more normal rate and volume. Mood described as pretty good, affect congruent. Thought process organized. Thought content: Patient denied suicidal or homicidal ideation, no delusions reported or noted, he is denying auditory hallucinations or visual hallucinations reported. Attention and concentration were intact and memory was more reliable but none were formally tested. He is alert and oriented x3. Insight and judgment are limited, but improving, impulse control is limited. Physical Exam Urinary Catheter Management^: García: Cath Placed During This Visit: yes, but has since been removed by the nurse Reason for Continuing Indwelling Catheter: Accurate Measurement of Urinary Output in Critically Ill Patients Urinary Catheter Date of Insertion: 01/25/21 Urinary Catheter Time of Insertion: 16:00 Date Urinary Catheter Removed: 01/27/21 Time Urinary Catheter Discontinued: 15:18 Discharge Data Data Completed and Pending: Completed Studies During Hospitalization Category Date Time Status CT abdomen pelvis w con* 15792 Urge nt Cat Scan 01/25/21 13:[address] head wo con* 7 0450 Stat Cat Scan 01/25/21 10:13 Completed NM hepatobiliary w phar* [id number] Rout ine Nuc Med 01/29/21 09:21 Completed US abdomen limite d 37183 Routine Ultrasound 01/26/21 06:00 Completed Pending at discharge Category Date Time Status Clostridioides Di fficile PCR Routin e Lab 02/06/21 12:57 Uncollected Immunochemical Fe lurdes OCB Routine Lab 02/06/21 12:57 Uncollected Vitals: Last Vital Signs Temp 97.8 F 02/08/21 14:00 Pulse 100 02/08/21 20:21 Resp 18 02/09/21 09:20 BP 100/68 02/08/21 20:21 Pulse Ox 97 02/08/21 20:21 Discharge Plan Discharge Patient Disposition: Home Condition: Stable Prescriptions: New trazodone 100 mg Tablet 100 mg PO BEDTIME PRN (Reason: Insomnia) 30 Days Qty: 30 RF: 1 pantoprazole 40 mg Tablet,Delayed Release (Dr/Ec) 40 mg PO BID 30 Days Qty: 60 RF: 1 chlorpromazine 25 mg Tablet 50 mg PO TID 30 Days Qty: 240 RF: 1 bisacodyl 5 mg Tablet,Delayed Release (Dr/Ec) 10 mg PO DAILY PRN (Reason: Constipation (see protocol)) 30 Days Qty: 60 RF: 1 eszopiclone [Lunesta] 1 mg tablet 1 mg PO BEDTIME 30 Days Qty: 30 RF: 1 Continued hydroxyzine pamoate 25 mg Capsule 50 mg PO Q6H PRN (Reason: Anxiety or Sleep) 30 Days Qty: 180 RF: 1 Discontinued ziprasidone HCl 40 mg Capsule 80 mg PO 0700,1700 30 Days Qty: 120 RF: 1 sertraline 50 mg Tablet 50 mg PO DAILY 30 Days Qty: 30 RF: 1 propranolol 20 mg Tablet 20 mg PO TID PRN (Reason: anxiety) 30 Days Qty: 90 RF: 1 doxepin 25 mg Capsule 25 mg PO BEDTIME 30 Days Qty: 30 RF: 1 No Action clonazepam 0.5 mg tablet 0.5 mg PO BID@, RF: 0 Discharge Orders: Discharge Order (Routine); Ordered 02/09/21 Ordered By: Jag Escobar Referrals: [facility] [Outside] (Walk in Tuesdays or 7:30am to 3pm.) Discharge Diet: Regular Discharge Activity: Resume usual activity Patient Instructions: Bipolar Disorder (GEN), Adult Overdose (ED), Opioid Safety Discharge Attestations NPU Time Spent in Discharge Care*: greater than 30 min Specific Discharge Activities: Specific discharge activities: educating patient, educating and/or supporting family/caregiver, discussing with field nurse case manager/social workers/dc planners, documenting/other paperwork and evaluating patient/reviewing data Status at Discharge: Cognitive status at discharge: cognitively intact , Behavioral status at discharge: cooperative , Coding Level of Care Code Acute Chg FW DC note Diagnoses Right upper quadrant pain R10.11
[2021-02-09 13:08] VITALS: BP 138/78; PULSE 86; RESP 18; TEMP 36.7; O2SAT 97
== END 2021-02-09 14:09 | disposition home or self-care (01) | DRG 917 ==
LOC: ER 13:19 → ICU 14:22 → NP 01-27 18:31
PROVIDERS: Family Medicine; Internal Medicine; Nurse Practitioner Family; Admitting Provider Internal Medicine; Emergency Provider Emergency Medicine; Visit Provider Psychiatry & Neurology Psychiatry
DX: T43.012A Poisoning by tricyclic antidepressants, intentional self-harm, initial encounter (principal); K85.30 Drug induced acute pancreatitis without necrosis or infection; R45.851 Suicidal ideations; K51.90 Ulcerative colitis, unspecified, without complications; F11.20 Opioid dependence, uncomplicated; T46.5X2A Poisoning by other antihypertensive drugs, intentional self-harm, initial encounter; T44.7X2A Poisoning by beta-adrenoreceptor antagonists, intentional self-harm, initial encounter; T43.222A Poisoning by selective serotonin reuptake inhibitors, intentional self-harm, initial encounter; F29 Unspecified psychosis not due to a substance or known physiological condition; I95.2 Hypotension due to drugs; R11.2 Nausea with vomiting, unspecified; R09.89 Other specified symptoms and signs involving the circulatory and respiratory systems; R94.31 Abnormal electrocardiogram [ECG] [EKG]; F20.3 Undifferentiated schizophrenia; F60.89 Other specific personality disorders; F31.9 Bipolar disorder, unspecified; F41.9 Anxiety disorder, unspecified; G47.00 Insomnia, unspecified; F17.210 Nicotine dependence, cigarettes, uncomplicated; R10.11 Right upper quadrant pain; R19.7 Diarrhea, unspecified; R16.0 Hepatomegaly, not elsewhere classified; R93.3 Abnormal findings on diagnostic imaging of other parts of digestive tract; Z91.51 Personal history of suicidal behavior
CPT/HCPCS: 36415; 36416; 36556; 36592; 36600; 51701; 51702; 70450; 74177; 76705; 78227; 80048; 80053; 80074; 80306; 80307; 81001; 81003; 82803; 82962; 83605; 83690; 83735; 83880; 84100; 84145; 84484; 85025; 85610; 86140; 87040; 93005; 96365; 96366; 96372; 96375; 96376; 97150; 97165; 99285; A9537; J1610; J1650; J2270; J2543; J3475; J7030; Q0161; Q0162; Q9967

== ENCOUNTER 2021-02-13 00:28 | Inpatient (IN) | payer MEDICARE, MEDICAID, SELFPAY ==
[2021-02-13] VITALS (63 sets, daily range): BP systolic 80–111; BP diastolic 50–80; PULSE 75–104; RESP 14–24; TEMP 36.6–37.9; O2SAT 94–100; BMI 34.8
--- NOTE | 2021-02-13 00:38 | CTR_ITS ---
PROCEDURE INFORMATION: Exam: CT Head Without Contrast Exam date and time: 02/13/2021 12:38 AM Age: 35 years old Clinical indication: Altered mental status/memory loss; Patient HX: Trazadone overdose. Patient unresponsive upon er arrival. ; Additional info: AMS TECHNIQUE: Imaging protocol: Computed tomography of the head without contrast. Radiation optimization: All CT scans at this facility use at least one of these dose optimization techniques: automated exposure control; mA and/or kV adjustment per patient size (includes targeted exams where dose is matched to clinical indication); or iterative reconstruction. COMPARISON: CT head wo con* [id number] 01/25/2021 10:28 AM RADIATION DOSE METRICS: Total DLP (mGy-cm): 1075.78 FINDINGS: Brain: No acute infarct or hemorrhage. Cerebral ventricles: No ventriculomegaly. Paranasal sinuses: Paranasal sinuses are clear. No air-fluid level. Mastoid air cells: Visualized mastoid air cells are clear. Bones/joints: No calvarial or skull base fracture. Soft tissues: Unremarkable. Other findings: The examination is limited by patient motion. CT/CT head wo con* [id number] IMPRESSION: 1. The examination is limited by patient motion. 2. No acute infarct or hemorrhage. 3. No calvarial or skull base fracture. Radiation Dose CTDIVOL = (mGy): DLP = 1075.78 (mGy-cm)
--- NOTE | 2021-02-13 00:39 | ECG_ITS ---
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 Measurements Intervals [place] Rate: 101 P: 55 TX: 188 QRS: -81 QRSD: 121 T: 59 QT: 374 QTc: 486 Interpretive Statements SINUS TACHYCARDIA LEFT AXIS DEVIATION [QRS AXIS < -30] MODERATE INTRAVENTRICULAR CONDUCTION DELAY [110+ ms QRS DURATION] NONSPECIFIC ST ELEVATION [0.05+ mV ST ELEVATION] Compared to ECG 01/29/2021 05:57:59 Left-axis deviation now present Intraventricular conduction delay now present ST (T wave) deviation now present Sinus arrhythmia no longer present Incomplete right bundle-branch block no longer present Left anterior fascicular block no longer present T-wave abnormality no longer present Electronically Signed On 02-13-2021 16:08:11 ADDRESSOGRAPH OPERATOR by Wen Nugent M.D. [id number]
--- NOTE | 2021-02-13 00:42 | ECG_ITS ---
[facility] Test Date: 2021-02-13 Pat Name: Shayan Dickson Department: Room: ICU02 Gender: Male Chief Environmental Commitment Officer: : 1985 Requested By: Daphney Proctor Order Number: [id number] Krzysztof MD: Wen Nugent M.D. Measurements Intervals [place] Rate: 93 P: 59 AL: 171 QRS: -83 QRSD: 128 T: 58 QT: 372 QTc: 464 Interpretive Statements SINUS RHYTHM LEFT AXIS DEVIATION [QRS AXIS < -30] RIGHT BUNDLE BRANCH BLOCK [120+ ms QRS DURATION, UPRIGHT V1, 40+ ms S IN I/aVL/V4/V5/V6] Compared to ECG 01/29/2021 05:57:59 Left-axis deviation now present Right bundle-branch block now present Sinus arrhythmia no longer present Incomplete right bundle-branch block no longer present Left anterior fascicular block no longer present T-wave abnormality no longer present Electronically Signed On 02-13-2021 16:07:51 [facility] by Wen Nugent M.D. [id number]
[2021-02-13] MEDS: sodium chloride 0.9% 1,000 ML 999 ML IV (00:43)
[2021-02-13] MEDS: vecuronium 10 mg SDV 12 MG IVP (01:05)
--- NOTE | 2021-02-13 01:25 | XRR_ITS ---
. PROCEDURE INFORMATION: Exam: XR Chest Exam date and time: 02/13/2021 1:25 AM Age: 35 years old Clinical indication: Other: AMS; Patient HX: Patient arrived to ED for possible drug overdose. Check S/P intubation and og placement. ; Additional info: Post-intubation TECHNIQUE: Imaging protocol: XR of the chest. Views: 1 view. COMPARISON: CR XR chest 2V* [id number] 06/24/2019 2:54 PM FINDINGS: Tubes, catheters and devices: Endotracheal tube is in good position. Nasogastric tube is in good position. Lungs: Low lung volumes with linear atelectasis at the left lung base. Pleural spaces: Unremarkable. No pleural effusion. No pneumothorax. Heart/Mediastinum: Unremarkable. No cardiomegaly. Bones/joints: Unremarkable. XR/XR chest 1V portable [id number] IMPRESSION: 1. Nasogastric tube is in good position. 2. Endotracheal tube is in good position. 3. Atelectasis at the left lung base Radiation Dose CTDIVOL = (mGy): DLP = (mGy-cm)
--- NOTE | 2021-02-13 01:27 | W.ED.GENADLT ---
HPI - General Adult General: Chief complaint: Overdose Stated complaint: OD Time Seen by Provider: 02/13/21 00:38 History of Present Illness: HPI narrative: CC: AMS HPI: [35]yo patient w/ hx of prior drug overdose, depression, anxiety PMH BIBA for altered mental status after concern for trazadone and clonidine overdose. Patient's uncle called EMS after patient took 6 tablets of trazedone and became unconsciousness. It was later uncovered in the ER that patient had 27 tablets of clonidine 0.5mg missing from his pocket. In the ED, patient was hypoxemic, minimally responsive, with jerky movements throughout Onset: Unknown Duration: ongoing, unclear duration Location: home Severity:severe Review of Systems Narrative: REVIEW OF SYSTEMS unable to obtain due to current cognitive status PFS ED PFSH: Medical History (Updated 02/13/21 @ 03:38 by Daphney Proctor MD) Opiate misuse Schizophrenia Suicide attempt Ulcerative colitis Surgical History History of appendectomy Social History Smoking and tobacco status: current every day smoker Alcohol intake: never Physical Exam Narrative: EXAM NARRATIVE: Head: Atraumatic Eyes: PERRL, conjunctiva without injection, +optic clonus ENT: Mucous membrane moist NECK: Supple without lymphadenopathy LUNGS: LCTA bilaterally CV: RRR ABDOMEN: Soft, nontender in all quadrants EXTREMITY: Normal ROM, +clonus on extremities SKIN: No rash or erythema, no signs of track love, no visible patches, no noticeable cellulitis, +mild clonus in the extremities, +hyperreflexia in the ankles/knees, +diaphroesis NEURO: Somnolent but arousable, moving all extremities, GCS of 7 PSYCH: Somnolent unable to fully assess at this time Procedures Central Line Placement Left Femoral: Time Out Performed: Yes Patient Placed on Monitor/Pulse Ox: Yes Prep: mask, gown and gloves Central Line Prep: Povidone-Iodine 1% Ultrasound Used for Placement: Yes Central Line Lumen Inserted: triple Post Procedure: sutured in place, good blood return and all ports aspirated, flushed, capped Post Procedure X-Ray: tip of catheter in good position Patient Tolerated Procedure: well Complications: none Intubation Time out performed: Yes sedative: Etomidate Mg Given: 35 paralytic: Vecuronium Mg Given: 12 Laryngoscope: Bonilla ET Tube Size: 7.5 ET Tube Uncuffed: No Tube Secured Depth (cm): 26 Tube Secured Location: lips Tube Placement Confirmation: visualized tube passing through cords and equal breath sounds bilaterally Patient Tolerated Procedure: well Intubation Complications: none Course Vital Signs: Vital signs: Vital Signs Temperature 99.2 F 02/13/21 04:34 Pulse Rate 92 02/13/21 04:34 Respiratory Rate 14 02/13/21 04:34 Blood Pressure 92/61 02/13/21 04:34 Pulse Oximetry 98 02/13/21 04:34 MDM - General Adult MDM Narrative: Medical decision making narrative: [35]yo patient w/ hx of previous drug overdose BIBA for AMS, unclear last seen normal. Obtunded with +Slurred, sluggish behavior. Airway maintained. No signs of trauma including bruises, hematoma, lacerations, or basilar skull fracture. NO increased work of breathing or tachypnea on presentation, no suspicion for toxic alcohol vs ASA overdose vs DKA. DDx broad including intracranial injuries, metabolic phenomenon, substance intoxication/withdrawal, and sepsis. Toxidrome Findings: +clonus in the lower extremities EKG: Almost R axis, Tall R wave in avR and V1 new compared to prior EKG from 01/29/2021, QRS of 128, QTc wnl, no ST-T wave changes, no ectopy The EKG finding, decision was made to sodium bicarb. There is no changes in QRS duration after given sodium bicarb. Given concern for serotonin syndrome, mental status, hypoxemia, decision was made to intubate patient. Post inbuation, patient became hypotensive requiring pressor support Workup: CBC, CMP, acetaminophen level, salicylate level, VBG, CK, UA, ECG, UA/UDS, CT brain, XR Chest Intervention: IVF (3L), tylenol NH, vancomycin and cefepime, and norepinephrine [3:33pm] On reassessment, BP improved on norepinephrine 15mcg/min. Troponin of 144, given aspirin rectally. Will trend troponin, likely demand related. Patient is mildly febrile and has a WBC of 14.3. This is likely secondary to drug intoxication as opposed to sepsis/septic shock. However, will cover empirically with vancomycin and cefepime. Case was discussed with poison control who will follow patient. Will need psych clearance after admission Disposition: ICU Lab Data: Labs: Lab Results 02/13/21 02/13/21 02/13/21 02:35 02:35 02:35 WBC 14.3 10^3/uL H 10 ^3/uL (4.0-10.0) RBC 3.87 10^6/uL L 10 ^6/uL (4.1-5.3) Hgb 11.3 g/dL L g/dL (11.7-16.6) Hct 35.2 % L % (42.0-52.0) MCV 91.0 fl fl (80-94) MCH 29.2 pg pg (28.0-34.0) MCHC 32.1 g/dL g/dL (30.0-36.0) RDW 13.3 % % (12.1-15.1) Plt Count 216 10^3/cmm 10^3 /cmm (130-400) MPV 10.0 fL fL (7.4-10.4) Neut % (Auto) 84.1 % % Lymph % (Auto) 5.8 % % [place] % (Auto) 9.3 % % Eos % (Auto) 0.1 % % Baso % (Auto) 0.1 % % Neut # (Auto) 11.99 10^3/uL H 1 0^3/uL (1.8-7.7) Lymph # (Auto) 0.8 10^3/uL 10^3/ uL (0.8-4.8) [place] # (Auto) 1.3 10^3/uL H 10^ 3/uL (0.2-0.9) Eos # (Auto) 0.0 10^3/uL 10^3/ uL (0.0-0.8) Baso # (Auto) 0.0 10^3/uL 10^3/ uL (0.0-0.1) Nucleated RBC % (a uto) 0 % % Nucleated RBCs # 0.0 /100WBC /100W BC Specimen Type Sample Site ABG pH ABG pCO2 ABG pO2 ABG HCO3 ABG Base Excess David Test Hematocrit O2 Delivery Device FiO2 PEEP Straw Hat Washer Operator ID Sodium 140 mmol/L mmol/L (136-145) Potassium 4.8 mmol/L mmol/L (3.5-5.1) Chloride 102 mmol/L mmol/L (98-107) Carbon Dioxide 25 mmol/L mmol/L (22-29) Anion Gap 17.8 (5-19) BUN 16 mg/dL mg/dL (6-20) Creatinine 1.5 mg/dL H mg/dL (0.7-1.2) GFR Calculation 53.0 mL/min L mL/ min (90-130) Glucose 91 mg/dL mg/dL (65-115) Calculated Osmolal ity 291 mOsm/kg mOsm/ kg (285-295) Calcium 8.6 mg/dL mg/dL (8.5-10.5) Total Bilirubin 0.3 mg/dL mg/dL (0.15-1.2) AST 40 U/L U/L (0-40) ALT 23 U/L U/L (0-41) Alkaline Phosphata se 79 IU/L IU/L (40-130) Creatine Kinase 3122 U/L H* U/L (39-308) Troponin T Baselin e 144 ng/L H* ng/L (0-15) Total Protein 6.0 g/dL L g/dL (6.6-8.7) Albumin 3.7 g/dL g/dL (3.5-5.2) Globulin 2.3 g/dL g/dL (1.3-4.6) Lipase 26 U/L U/L (13-60) Urine Color Urine Appearance Urine pH Ur Specific Gravit y Urine Protein Urine Glucose (UA) Urine Ketones Urine Blood Urine Nitrate Urine Bilirubin Urine Urobilinogen Ur Leukocyte Riya ase Urine RBC Urine WBC Ur Squamous Epith Cells Amorphous Sediment Urine Bacteria Salicylates < 0.3 mg/dL L mg/ dL (3-10) Urine Opiates Scre en Acetaminophen < 5.0 ug/mL L ug/ mL (10-30) Ur Barbiturates Sc reen Ur Phencyclidine S crn Ur Amphetamines Sc reen U Benzodiazepines Scrn Urine Cocaine Scre en U Marijuana (THC) Screen 02/13/21 02/13/21 02/13/21 02:55 03:00 03:00 WBC RBC Hgb Hct MCV MCH MCHC RDW Plt Count MPV Neut % (Auto) Lymph % (Auto) [place] % (Auto) Eos % (Auto) Baso % (Auto) Neut # (Auto) Lymph # (Auto) [place] # (Auto) Eos # (Auto) Baso # (Auto) Nucleated RBC % (a uto) Nucleated RBCs # Specimen Type Arterial Sample Site Radial, right ABG pH 7.34 L (7.35-7.45) ABG pCO2 47.0 mmHg H mmHg (35-45) ABG pO2 122.0 mmHg H mmHg (80.0-100.0) ABG HCO3 25.3 mmol/L mmol/ L (22-26) ABG Base Excess -0.9 mmol/L mmol/ L (-2.0-2.0) David Test Pos Hematocrit 41.5 % L % (42-52) O2 Delivery Device Vent FiO2 40.0 % % PEEP 5.0 cmH20 cmH20 Straw Hat Washer Operator ID [email or web address] Sodium Potassium Chloride Carbon Dioxide Anion Gap BUN Creatinine GFR Calculation Glucose Calculated Osmolal ity Calcium Total Bilirubin AST ALT Alkaline Phosphata se Creatine Kinase Troponin T Baselin e Total Protein Albumin Globulin Lipase Urine Color Yellow (Yellow) Urine Appearance Clear (CLEAR) Urine pH 5 (5-7) Ur Specific Gravit y 1.030 (1.005-1.030) Urine Protein Trace (Negative) Urine Glucose (UA) Norm (Normal) Urine Ketones Negative (Negative) Urine Blood 3+ H (Negative) Urine Nitrate Negative (Negative) Urine Bilirubin Neg (Negative) Urine Urobilinogen Neg mg/dL mg/dL (Negative) Ur Leukocyte Riya ase Negative (Negative) Urine RBC 5-10 /hpf H /hpf (0-2) Urine WBC Rare /hpf /hpf (0-5) Ur Squamous Epith Cells Rare /hpf /hpf (0-5) Amorphous Sediment Not Reportable Urine Bacteria None /hpf /hpf (NONE) Salicylates Urine Opiates Scre en Negative ng/mL ng /mL (Negative) Acetaminophen Ur Barbiturates Sc reen Negative ng/mL ng /mL (Negative) Ur Phencyclidine S crn Negative ng/mL ng /mL (Negative) Ur Amphetamines Sc reen Negative ng/mL ng /mL (Negative) U Benzodiazepines Scrn Negative ng/mL ng /mL (Negative) Urine Cocaine Scre en Negative ng/mL ng /mL (Negative) U Marijuana (THC) Screen Negative ng/mL ng /mL (Negative) Imaging Data^: Other Imaging: Radiologist's impression: [place] [id number], [place] [address]EK Scan ReportSigned Patient: Nita Dickson #: [id number]: 1985Acct#:[id number]/Sex: 35 / MADM Date: 02/13/21Loc: ICURoom/Bed: [address]: Marian Malone MD Ordering Provider/Ordering MD: Daphney Proctor MD Date of Service: 02/13/21 Procedure(s): CT head wo con* [id number] Accession Number(s): [id number] Report Number: [id number] PROCEDURE INFORMATION: Exam: CT Head Without Contrast Exam date and time: 02/13/2021 12:38 AM Age: 35 years old Clinical indication: Altered mental status/memory loss; Patient HX: Trazadone overdose. Patient unresponsive upon er arrival. ; Additional info: AMS TECHNIQUE: Imaging protocol: Computed tomography of the head without contrast. Radiation optimization: All CT scans at this facility use at least one of these dose optimization techniques: automated exposure control; mA and/or kV adjustment per patient size (includes targeted exams where dose is matched to clinical indication); or iterative reconstruction. COMPARISON: CT head wo con* [id number] 01/25/2021 10:28 AM RADIATION DOSE METRICS: Total DLP (mGy-cm): 1075.78 FINDINGS: Brain: No acute infarct or hemorrhage. Cerebral ventricles: No ventriculomegaly. Paranasal sinuses: Paranasal sinuses are clear. No air-fluid level. Mastoid air cells: Visualized mastoid air cells are clear. Bones/joints: No calvarial or skull base fracture. Soft tissues: Unremarkable. Other findings: The examination is limited by patient motion. CT/CT head wo con* [id number] IMPRESSION: 1. The examination is limited by patient motion. 2. No acute infarct or hemorrhage. 3. No calvarial or skull base fracture. Radiation Dose CTDIVOL = (mGy): DLP = 1075.78 (mGy-cm) Dictated By:Boom Gonsales By:Boom Gonsales Date/Time:02/13/21 0442DD/ 0038 Critical Care Time Critical Care Time: Critical Care Time: Yes Total Critical Care Time: 36 Attestation: Given the high probability of imminent or life threatening deterioration of the patient?s condition without intervention, the patient was immediately assessed by myself and the nurse, and cardiac monitoring initiated. The patient was also placed on oxygen and continuous pulse oximetry initiated. During the course of the patient?s stay, I spent a considerable amount of time at the bedside performing serial re-evaluations of the patient?s hemodynamic and clinical status because of the recognized potential threat to life or limb in this condition. Clinical management of this patient involved high complexity decision making to assess, manipulate, and support vital organ system failure. I then had a chance to review all of the available laboratory and radiographic studies obtained today, and I also reviewed old records available to me at the time. Sequential vital signs were obtained. Critical care time noted below was time spent engaged in work directly related to the individual patient?s care, not including time performing procedures; however it does include time spent at the immediate bedside or elsewhere on the floor or unit. TOTAL CRITICAL CARE TIME ELAPSED: 36 minutes. BODY SYSTEM AT HIGHEST RISK: Neurological Discharge Plan Discharge Patient Disposition: Admitted As Inpatient Admit Provider: Marian Malone Clinical Impression: Serotonin syndrome, Altered mental status, Hypoxemia, Acute electrocardiogram changes, Acute kidney injury, Elevated troponin I level Condition: Stable Coding Level of Care Code ED [employer] Temperer for Jordan Craft
--- NOTE | 2021-02-13 01:30 | PC.NURSE ---
Poison control contacted. Per pharmacist Jeana - peak 1-2 hours after consumption, half life 3-4 hrs. No antidote, provide supportive care.
--- NOTE | 2021-02-13 01:50 | PC.RESP ---
Dr Proctor verbal vent setting changes made : CMV 450, 14R, +5, and 40% att. ABG ordered
--- NOTE | 2021-02-13 02:39 | ECG_ITS ---
[facility] Test Date: 2021-02-13 Pat Name: Shayan Dickson Department: Room: Gender: Male Senior Operator: : 1985 Requested By: Daphney Proctor Order Number: [id number] Krzysztof MD: Wen Nugent M.D. Measurements Intervals [place] Rate: 94 P: 57 MT: 169 QRS: -83 QRSD: 127 T: 54 QT: 371 QTc: 465 Interpretive Statements SINUS RHYTHM LEFT AXIS DEVIATION [QRS AXIS < -30] RIGHT BUNDLE BRANCH BLOCK [120+ ms QRS DURATION, UPRIGHT V1, 40+ ms S IN I/aVL/V4/V5/V6] Compared to ECG 01/29/2021 05:57:59 Left-axis deviation now present Right bundle-branch block now present Sinus arrhythmia no longer present Incomplete right bundle-branch block no longer present Left anterior fascicular block no longer present T-wave abnormality no longer present Electronically Signed On 02-13-2021 16:15:45 DIRECTOR CASE by Wen Nugent M.D. [id number]
[2021-02-13 02:55] LABS: Basophils % 0.1 %; Eosinophils % 0.1 %; Hematocrit 35.2 % (42.0-52.0); Hemoglobin 11.3 g/dL (11.7-16.6); Lymphocytes # 0.8 10^3/uL (0.8-4.8); Lymphocytes % 5.8 %; Mean Corpuscular HGB Conc 32.1 g/dL (30.0-36.0); Mean Corpuscular Hemoglobin 29.2 pg (28.0-34.0); Monocytes # 1.3 10^3/uL (0.2-0.9); Monocytes % 9.3 %; Neutrophils # 11.99 10^3/uL (1.8-7.7); Neutrophils % 84.1 %; Nucleated Red Blood Cells % 0 %; Platelet Count 216 10^3/cmm (130-400); Red Blood Count 3.87 10^6/uL (4.1-5.3); Red Cell Distribution Width 13.3 % (12.1-15.1); White Blood Count 14.3 10^3/uL (4.0-10.0)
[2021-02-13] MEDS: sodium bicarbonate 8.4% 1 mEq/mL 50mL Syr 50 MEQ IVP (03:00)
[2021-02-13] MEDS: calcium gluconate 0.1 gm/mL 10% SDV 10mL 1 GM IVP (03:00)
[2021-02-13 03:07] LABS: ABG PH Result 7.34 (7.35-7.45); Arterial Blood Gas Hematocrit 41.5 % (42-52); Base Excess ABG -0.9 mmol/L (-2.0-2.0); Blood Gas Allen Test Pos; Blood Gas Sample Type Arterial; HCO3 ABG 25.3 mmol/L (22-26)
[2021-02-13 03:09] LABS: Blood Gas Sample Site Radial, right; Oxygen Device VENT
[2021-02-13 03:19] LABS: Glucose Urine UA Norm (Normal); Ketones Urine Negative (Negative); Protein Urine Trace (Negative); Urine Appearance Clear (CLEAR); Urine Color Yellow (Yellow); pH Urine 5 (5-7)
[2021-02-13 03:20] LABS: Add Urine Microscopic? YES; Bilirubin Urine Neg (Negative); Blood Urine 3+ (Negative); Leukocyte Esterase Urine Negative (Negative); Nitrate Urine Negative (Negative); Urobilinogen Urine Neg (Negative)
[2021-02-13 03:26] LABS: Alanine Aminotransferase 23 U/L (0-41); Albumin Level 3.7 g/dL (3.5-5.2); Alkaline Phosphatase 79 IU/L (40-130); Anion Gap 17.8 (5-19); Aspartate Amino Transferase 40 U/L (0-40); Blood Urea Nitrogen 16 mg/dL (6-20); Calcium 8.6 mg/dL (8.5-10.5); Carbon Dioxide 25 mmol/L (22-29); Chloride 102 mmol/L (98-107); Globulin 2.3 g/dL (1.3-4.6); Glucose 91 mg/dL (65-115); Lipase 26 U/L (13-60); Osmolality Calculated 291 mOsm/kg (285-295); Potassium 4.8 mmol/L (3.5-5.1); Sodium 140 mmol/L (136-145); Total Bilirubin 0.3 mg/dL (0.15-1.2)
[2021-02-13 03:26] LABS: Amphetamines Screen Urine Negative (Negative); Barbiturates Screen Urine Negative (Negative); Benzodiazepines Screen Urine Negative (Negative); Cocaine Screen Urine Negative (Negative); Opiate Screen Urine Negative (Negative); PCP Screen Urine Negative (Negative); THC Screen Urine Negative (Negative)
[2021-02-13 03:27] LABS: Acetaminophen < 5.0 ug/mL (10-30); Salicylate < 0.3 mg/dL (3-10); Troponin(5th) Baseline 144 ng/L (0-15)
--- NOTE | 2021-02-13 03:29 | CTR_ITS ---
PROCEDURE INFORMATION: Exam: CTA Chest With Contrast Exam date and time: 02/13/2021 3:29 AM Age: 35 years old Clinical indication: Shortness of breath; Patient HX: Trazadone overdose. Hypoxic with elevated troponin and ck. Patient intubated. Injection thru left femoral central line. ; Additional info: AMS, pe? TECHNIQUE: Imaging protocol: Computed tomographic angiography of the chest with contrast. 3D rendering (Not supervised by radiologist): MIP and/or 3D reconstructed images were created by the technologist. Radiation optimization: All CT scans at this facility use at least one of these dose optimization techniques: automated exposure control; mA and/or kV adjustment per patient size (includes targeted exams where dose is matched to clinical indication); or iterative reconstruction. Contrast material: VISI 320; Contrast volume: 79 ml; Contrast route: INTRAVENOUS (IV); COMPARISON: CR (CHEST, ) 02/13/2021 1:29 AM RADIATION DOSE METRICS: Total DLP (mGy-cm): 1064.43 FINDINGS: Pulmonary arteries: Tiny filling defects are present in segmental branches of the right upper and middle lobe pulmonary arteries. Aorta: Unremarkable. No aortic aneurysm. No aortic dissection. Lungs: See Pulmonary arteries finding. Pleural spaces: Unremarkable. No pneumothorax. No pleural effusion. Heart: Unremarkable. No cardiomegaly. No pericardial effusion. Heart RV/LV ratio: RV/LV ratio = 0.6. Lymph nodes: Unremarkable. No enlarged lymph nodes. Bones/joints: Unremarkable. No acute fracture. Soft tissues: Unremarkable. Other findings: Support tubes and lines are in good position. CT/CT angio chest PE protcl [id number] IMPRESSION: 1. Tiny burden of acute pulmonary emboli in the right upper lobe and middle lobe. No right heart strain. 2. Support tubes and lines are in good position. Radiation Dose CTDIVOL = (mGy): DLP = 1064.43 (mGy-cm)
[2021-02-13 03:32] LABS: Add Urine Culture? No; Squamous Epithelial Cell Urine RARE /hpf (0-5); WBC Urine RARE /hpf (0-5)
[2021-02-13 03:39] LABS: Creatine Phosphokinase 3122 U/L (39-308)
[2021-02-13] MEDS: cefepime 1,000 MG in sodium chloride 0.9% (plus) 50 ML 100 MG IV (03:53)
[2021-02-13] MEDS: iodixanol 320 mg/mL 100mL Btl IV (04:24)
[2021-02-13] MEDS: vancomycin 1,000 MG in sodium chloride 0.9% 250 ML 250 MG IV (04:29)
[2021-02-13] MEDS: heparin 5,000 unit/mL INJ 1 mL 4000 UNIT IVP (05:00)
[2021-02-13 05:11] LABS: Troponin 5 2HR 110.2 ng/L (0-15); Troponin 5 2HR Delta -33.8 ABS# (0-10)
[2021-02-13] MEDS: heparin 5,000 unit/mL INJ 1 mL IV (05:43)
[2021-02-13] MEDS: heparin drip 25,000 UNIT/500 ML PREMIX 31 UNIT IV (05:46)
[2021-02-13 05:49] LABS: INR 1.07 (0.8-1.2)
[2021-02-13 05:50] LABS: Partial Thromboplastin Time 31.6 SECONDS (23.9-36.7)
--- NOTE | 2021-02-13 05:55 | P.HP_ITS ---
Providers/Chief Complaint Admitting Physician: Marian Malone MD Chief Complaint: OD History of Present Illness Shayan Dickson is a 35 year old male with PMH polysubstabnce abuse brought in by ambulanace after family noted he has taken multiple pills of clonidie and trazodone at home. Upon arrival patient was unresponsive, GCS 7, intubated for low GCS and airway protection. Noted to have clonus prior to intubation. Pos intubation he has been hypotensive, needing levophed @10. Currently on mechanical ventilation, sedated with propofol and fentanyl. No futher history available at this time. Diagnostics show mild leukocytosis, elevated trop >100, rigth side PE Review of Systems 2 General: Reports: ROS unobtainable due to endotracheal tube and ROS unobtainable due to medical condition Medications/Allergies Home Medications Medication Instructions Recorded Confirmed Last Taken Type bisacodyl 10 mg PO DAILY PRN 30 Days #60 tab 02/09/21 Unknown Rx chlorpromazine 50 mg PO TID 30 Days #240 tab 02/09/21 Unknown Rx clonazepam 0.5 mg PO 0900,2100 30 Days #60 tab 02/09/21 Unknown Rx eszopiclone [Lunesta] 1 mg PO BEDTIME 30 Days #30 tab 02/09/21 Unknown Rx hydroxyzine pamoate 50 mg PO Q6H PRN 30 Days #180 cap 02/09/21 Unknown Rx pantoprazole 40 mg PO BID 30 Days #60 tab 02/09/21 Unknown Rx trazodone 100 mg PO BEDTIME PRN 30 Days #30 02/09/21 Unknown Rx tab Allergies Allergy/AdvReac Type Severity Reaction Status Date / Time mushroom Allergy Unknown Unknown Verified 01/09/21 08:19 escitalopram [From Lexapro] Allergy ALGY-Anaphy Verified 01/09/21 08:19 laxis NSAIDS (Non-Steroidal Allergy ADR-Abdominal Verified 01/09/21 08:19 Anti-Inflamma Pain venlafaxine [From Effexor] Allergy ALGY-Anaphy Verified 01/09/21 08:19 laxis PFSH Acute PFSH: Medical History Opiate misuse Schizophrenia Suicide attempt Ulcerative colitis Surgical History History of appendectomy Social History Smoking and tobacco status: current every day smoker Alcohol intake: never Vitals/I&O/Wt Last Vital Signs Temp 99.2 F 02/13/21 05:00 Pulse 94 02/13/21 05:00 Resp 14 02/13/21 05:00 BP 98/72 02/13/21 05:00 Pulse Ox 99 02/13/21 05:00 02/12/21 02/12/21 02/13/21 14:59 22:59 06:59 Intake Total 1050 / 1050 Balance 1050 / 1050 Weight last 48 hrs Weight 113.398 kg Physical Exam Narrative: EXAM NARRATIVE: General: intubated , sedated HEENT: PERRLA, pupils bilaterally normal size Chest: Normal vesicular breath sounds, no added sounds, equal good air entry bilaterally CVS: S1-S2 regular, no murmurs, no tachycardia, no gallops, no rubs Abdomen: Soft, nontender, no organomegaly, bowel sounds present Neuro: intubated, sedated ext: no gross edema, cyanosis or clubbing Urinary Catheter Management^: García: Cath Placed During This Visit: yes Urinary Catheter Date of Insertion: 02/13/21 Data : 02/13/21 02:35 02/13/21 02:35 A&P Assessment and plan (1) Altered mental status: likely related to polysubstance abuse given history, Check Urine dug screen, negative salicylate and acetaminophen levels alterntae possibilities include PE vs NSTEMI Status: Acute (2) Hypoxemia: related to PE, poor resp effort from low GCS Status: Acute (3) Acute kidney injury: Status: Acute (4) Pulmonary embolism: CTA with right side PE Started heparin infusion Echocardiogram to check right heart strain Status: Acute (5) Elevated troponin I level: cannot exclude NSTEMI at this time trend 6 hr troponin may be 2/2 PE, demand supply mismatch On heparin drip as above received 325mg ASA echocardiogram Status: Acute (6) Drug overdose, intentional: poison control notified monitor for serotonin syndrome, development of arrhythmias Status: Acute Additional A&P Information empirically on cefepime and vancomycin while undergoing infecious w/up. No pneumonia on CT chest. Ua unremarkabke. No gross localizing signs of infection at this time, pending blood cx. Vaccinated for covid 19 with 2 dose mrna series (takn nov and Jan 30, 2021) Attestations 2 Medical Necessity Statement*: >2midnight admission anticipated for above care Coding Level of Care Code Acute Proposal Development Manager for Jordan Fwd Diagnoses Altered mental status R41.82 Hypoxemia R09.02 Acute kidney injury N17.9 Pulmonary embolism I26.99 Elevated troponin I level R77.8 Drug overdose, intentional T50.902A
--- NOTE | 2021-02-13 06:00 | USCV_ITS ---
Shayan Dickson Age: 35 Gender: M : 1985 Exam Date: 02/13/2021 11:19 Ordering Phys: Marian Malone MD Technologist: Emma Santos Exam Location: [facility] [place] Indication: NSTEMI BP: 80 / 59 HR: 91 Rhythm: Sinus Technical Quality: Good MEASUREMENTS (Male / Female) Normal Values 2D ECHO LV Diastolic Diameter PLAX 5.0 cm 4.2 - 5.9 / 3.9 - 5.3 cm LV Systolic Diameter PLAX 4.1 cm IVS Diastolic Thickness 0.9 cm 0.6 - 1.0 / 0.6 - 0.9 cm IVS Systolic Thickness 1.3 cm LVPW Diastolic Thickness 1.0 cm 0.6 - 1.0 / 0.6 - 0.9 cm LVPW Systolic Thickness 1.3 cm LV Ejection Fraction 2D Teich 35.5 % LV Ejection Fraction MOD 2C 26.1 % LV Ejection Fraction 2C AL 32.9 % LA Diameter 2.8 cm LA Width 2.0 cm LA Height 5.0 cm RA Width 3.6 cm RA Height 4.2 cm Aorta at Sinotubular Diameter 3.8 cm DOPPLER AV Peak Velocity 99.0 cm/s LVOT Peak Velocity 62.0 cm/s MV Peak Velocity 61.0 cm/s MV Area PHT 5.9 cm squared Mitral E to A Ratio 1.2 MV E' Velocity 31.5 cm/s Mitral E to MV E' Ratio 7.4 Mitral E to LV E' Lateral Ratio 6.3 Mitral E to LV E' Septal Ratio 8.8 TR Peak Velocity 50.0 cm/s TR Peak Gradient 1.0 mmHg Right Atrial Pressure 3.0 mmHg Pulmonary Artery Systolic Pressu 4.0 mmHg PV Peak Velocity 47.0 cm/s RV Acceleration Time 0.1 s RV Ejection Time 0.2 s RV AcT/ET 0.4 FINDINGS Left Ventricle Diffuse hypokinesis of the left ventricle with a diminished ejection fraction of 30 to 35% Right Ventricle Mildly dilated right ventricle with slightly diminished ejection fraction Right Atrium Mildly dilated Left Atrium The left atrium is normal in size. Mitral Valve No gross abnormalities noted Aortic Valve No gross abnormalities noted Tricuspid Valve No gross abnormalities noted Pulmonic Valve No gross abnormalities noted Pericardium Normal pericardium without effusion. Aorta Normal ascending aorta dimension. CONCLUSIONS Diffuse hypokinesis of the left ventricle with a diminished ejection fraction of 30 to 35%. Mildly dilated right ventricle with slightly diminished ejection fraction. Mildly dilated right atrium No significant valvular abnormalities. No significant pericardial effusion No similar previous studies are available for comparison Dr Phuc Valenzuela MD [facility] (Electronically Signed) Final Date: 13 February 2021 16:46 S
--- NOTE | 2021-02-13 06:08 | PC.NURSE ---
Dr. Proctor made the decision to intubate the pt. 35mg of etomidate and 12mg of Vecuronium was ordered and given at 0105. Pt was intubated at 0106. It was marked at 22 at the lip. Bilateral breath sounds auscultated and capnography verified. 50mg of propofol was also ordered and given. Vitals were heart rate 96, BP 87/66 and O2 is 100%.
[2021-02-13] MEDS: propofol 1,000 MG/100 ML INJ 17.01 MG IV (06:31)
--- NOTE | 2021-02-13 06:39 | ECG_ITS ---
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 Measurements Intervals [place] Rate: 95 P: 58 NC: 167 QRS: -85 QRSD: 125 T: 68 QT: 376 QTc: 473 Interpretive Statements SINUS RHYTHM LEFT AXIS DEVIATION [QRS AXIS < -30] RIGHT BUNDLE BRANCH BLOCK [120+ ms QRS DURATION, UPRIGHT V1, 40+ ms S IN I/aVL/V4/V5/V6] Compared to ECG 01/29/2021 05:57:59 Left-axis deviation now present Right bundle-branch block now present Sinus arrhythmia no longer present Incomplete right bundle-branch block no longer present Left anterior fascicular block no longer present T-wave abnormality no longer present Electronically Signed On 02-13-2021 16:15:48 MULTI SITE LEASING CONSULTANT by Wen Nugent M.D. [id number]
[2021-02-13 07:07] LABS: Procalcitonin 2.03 ng/mL (0-0.5); Thyroid Stimulating Hormone 2.99 uIU/mL (0.27-4.20)
--- NOTE | 2021-02-13 07:30 | PC.NURSE ---
Report received. Assessment completed. VSS. Levophed infusing at 10 , reduced to 8 d/t adequate MAP. Fentanyl at 50, propofol at 25. All infusing to L femoral TL CVL. Dressing c/d/i ETT 25cm at lip, vent settings AC 14, Vt 500, Fio2 32%, and peep 5. OGT in place. Pt exhibits no response at this time to stimulation. García cath in place draining freely to BSD. SCD's in place. Will monitor.
[2021-02-13] MEDS: pantoprazole 40 mg SDV IVP (08:06)
[2021-02-13] MEDS: sodium chloride 0.9% 1,000 ML 100 ML IV ×2 (08:08→18:31)
--- NOTE | 2021-02-13 08:38 | ECG_ITS ---
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 Measurements Intervals [place] Rate: 79 P: 58 NH: 172 QRS: -72 QRSD: 118 T: 33 QT: 392 QTc: 451 Interpretive Statements SINUS RHYTHM LEFT AXIS DEVIATION [QRS AXIS < -30] PATTERN CONSISTENT WITH PULMONARY DISEASE INCOMPLETE RIGHT BUNDLE BRANCH BLOCK [90+ ms QRS DURATION, TERMINAL R IN V1/V2, 40+ ms S IN I/aVL/V4/V5/V6] NONSPECIFIC ST ELEVATION [0.05+ mV ST ELEVATION] Compared to ECG 02/13/2021 03:33:26 Incomplete right bundle-branch block now present ST (T wave) deviation now present Right bundle-branch block no longer present Electronically Signed On 02-13-2021 16:07:25 PLUG WIRER by Wen Nugent M.D. [id number]
[2021-02-13] MEDS: piperacillin-tazobactam 3.375 GM in sodium chloride 0.9% (plus) 50 ML IV ×2 (09:07→16:25)
[2021-02-13 09:48] LABS: Troponin 5 6HR 70.66 ng/L (0-15)
--- NOTE | 2021-02-13 10:10 | PC.PHAR ---
pt unable to verify medications pt is intubated-pt brought in 4 medication bottles chlorpromazine,clonazepam,protonix,and trazodone-other medications entered are what the pharmacy has filled recently-other medications have been filled recently but were dced when pt was discharged on 01/09/21 and 01/25/21
--- NOTE | 2021-02-13 10:11 | PC.NURSE ---
Spoke with poison control. Updated them on pt condition, ekg results, and lab results. Poison control stated that they would f/u tomorrow unless needed before then
--- NOTE | 2021-02-13 10:24 | PC.NURSE ---
Sedation weaned down some per orders. During oral care pt opened eyes, raised head and followed some commands. During EKG, pt was moving and not following directions to remain still. EKG obtained. Will monitor
--- NOTE | 2021-02-13 10:38 | ECG_ITS ---
[facility] Test Date: 2021-02-13 Pat Name: Shayan Dickson Department: Room: [facility]02 Gender: Male Client Support Analyst: : 1985 Requested By: Tab Colunga Order Number: [id number] Krzysztof MD: Wen Nugent M.D. Measurements Intervals [place] Rate: 83 P: 70 WI: 171 QRS: -69 QRSD: 121 T: 19 QT: 414 QTc: 487 Interpretive Statements SINUS RHYTHM LEFT AXIS DEVIATION [QRS AXIS < -30] POSSIBLE RIGHT VENTRICULAR CONDUCTION DELAY [RSR (QR) IN V1/V2] NONSPECIFIC ST ELEVATION [0.05+ mV ST ELEVATION] Compared to ECG 02/13/2021 08:57:59 Incomplete right bundle-branch block no longer present ST (T wave) deviation still present Electronically Signed On 02-13-2021 16:15:07 TALENT PROGRAM MANAGER by Wen Nugent M.D. [id number]
[2021-02-13] MEDS: vancomycin 1,500 MG/300 ML PIGGYBACK 200 MG IV ×2 (11:47→23:27)
--- NOTE | 2021-02-13 12:16 | PC.CHAP ---
Pastoral Care Encounter/Spiritual Assessment Type of Contact [] Declined order checker visit [] Patient/Family/Request visit [] Outpatient visit [] Follow-up visit [] Physician referral [] Code/Alert [] Routine visit [] Staff referral [] Actively dying [] Patient sleeping [] Family support [] [] Out of room [] Palliative care [] [xx] Receiving care in room [] Pre-surgical visit [] Trauma [] Long length of stay [xx] ICU visit [] Other: Relational/Emotional Strength [] Patient feels connected with others/family/visitors/staff [] Distress [] Loneliness/isolation [] Abandonment Spirituality of Patient [] Person of Janneth [] Attends Denominational of their Janneth [] Believes in Prayer [] Reads Bible or Buddhism materials [] There are Spiritual issues to be addressed Seed Pelleter Interventions [xx] Prayer [] Active listening [] Non-anxious presence [] Spiritual/emotional support [] Crisis/trauma care [] Spiritual counseling [] Bereavement support [] Provided bereavement packet [] Provided Bible/devotional materials [] Provided toy/stuffed animal, coloring book to patient or family member [] Provided Communion [] Anointing/[place] [] Salvation [] Completed spiritual assessment [] Other: Impact on Illness or Injury [] Angry [] Fearful [] Anxious [] Often cries [] Exhaustion [] Unable to work [] Unable to attend oriental orthodox [] Unable to walk/stand [] Unable to read [] Unable to drive [] Unable to eat/drink [] Unable to sleep [] Unable to be with family [] Patient intubated [] Other: Summary Seed Pelleter not permitted to enter room so prayed outside. Time spent with patient 1 minute
--- NOTE | 2021-02-13 13:00 | PM.PN ---
Subjective Subjective: Interval history: This morning patient was seen, he remains intubated, sedated, on mechanical ventilation, is on pressor therapy, afebrile overnight, on heparin drip, pupils constricted, reactive to light, Vitals/I&O/Wt Last Vital Signs Temp 97.9 F 02/13/21 12:00 Pulse 81 02/13/21 12:00 Resp 14 02/13/21 10:14 BP 91/63 02/13/21 12:00 Pulse Ox 96 02/13/21 12:00 02/12/21 02/13/21 02/13/21 22:59 06:59 14:59 Intake Total 1050 / 1050 405.176 / 405.176 Output Total 750 / 750 850 / 850 Balance 300 / 300 -444.824 / -444.824 Weight last 48 hrs Weight 113.398 kg Physical Exam Const: COMMON NORMALS: no acute distress ORIENTATION/CONSCIOUSNESS: not awake, not oriented to person, not oriented to place and not oriented to time Resp: COMMON NORMALS: normal respiratory effort, No retractions, No use of accessory muscles and clear to auscultation bilaterally AUSCULTATION: clear to auscultation bilaterally Cardio: COMMON NORMALS: regular rate, regular rhythm, S1 normal heart sound present and S2 normal heart sound present RATE: regular rate RHYTHM: regular rhythm HEART SOUNDS: S1 normal heart sound present and S2 normal heart sound present GI: COMMON NORMALS: Normal to inspection, nondistended, normoactive bowel sounds present, Soft to palpation and non-tender PALPATION: Yes Soft to palpation Extremity: COMMON NORMALS: no pedal edema Neuro: SENSORIUM/ORIENTATION: No oriented to person, No oriented to place and No oriented to time Urinary Catheter Management^: García: Cath Placed During This Visit: yes Reason for Continuing Indwelling Catheter: Accurate Measurement of Urinary Output in Critically Ill Patients Urinary Catheter Date of Insertion: 02/13/21 Data : 02/13/21 02:35 02/13/21 12:23 A&P Assessment and plan (1) Altered mental status: likely related to polysubstance abuse given history, Urine drug seen negative, negative salicylate and acetaminophen levels Has a history of TCA overdose, unclear if he took TCA Ethylene glycol level EKG shows sinus rhythm, ID interval 171 ms, QRS 121 ms, QTC 487 ms Telemetry monitoring Alternate possibilities include PE vs NSTEMI Status: Acute (2) Hypoxemia: related to PE, poor resp effort from low GCS Status: Acute (3) Acute kidney injury: -Secondary to dehydration, rhabdomyolysis Status: Acute (4) Pulmonary embolism: CTA with right side PE Started heparin infusion Echocardiogram to check right heart strain Status: Acute (5) Elevated troponin I level: cannot exclude NSTEMI at this time trend 6 hr troponin may be 2/2 PE, demand supply mismatch On heparin drip as above received 325mg ASA, continue aspirin 81 mg, hold off on statin given rhabdo echocardiogram Status: Acute (6) Drug overdose, intentional: poison control notified monitor for serotonin syndrome, development of arrhythmias Status: Acute (7) Acute respiratory failure: -GCS 7 on admission, intubated to protect airway -Continue intubation, mechanical mechanical ventilation, propofol and fentanyl for sedation -Continue Zosyn for aspiration pneumonia coverage Status: Acute (8) Shock: -Currently on 6 of Levophed -Possibly secondary to TCA -Possibly secondary to sepsis related to pneumonia -Possibly secondary to sedating medication -Possibly secondary to pulmonary emboli, NSTEMI -Continue Levophed, -Monitor closely Status: Acute Additional A&P Information chest. Ua unremarkabke. No gross localizing signs of infection at this time, pending blood cx. Vaccinated for covid 19 with 2 dose mrna series (takn nov and Jan 30, 2021) Attestations Medical Necessity Statement*: Patient requires hospitalization due to elevated troponins, acute respiratory failure, drug overdose Coding Level of Care Code Acute Paper Mill Manager for Jordan Craft Diagnoses Altered mental status R41.82 Hypoxemia R09.02 Acute kidney injury N17.9 Pulmonary embolism I26.99 Elevated troponin I level R77.8 Drug overdose, intentional T50.902A Acute respiratory failure J96.00 Shock R57.9
[2021-02-13 13:06] LABS: Phosphorus 3.1 mg/dL (2.5-4.5)
[2021-02-13 13:07] LABS: Alanine Aminotransferase 31 U/L (0-41); Albumin Level 3.3 g/dL (3.5-5.2); Alkaline Phosphatase 70 IU/L (40-130); Aspartate Amino Transferase 88 U/L (0-40); Blood Urea Nitrogen 13 mg/dL (6-20); Calcium 8.1 mg/dL (8.5-10.5); Carbon Dioxide 23 mmol/L (22-29); Chloride 103 mmol/L (98-107); Globulin 2.3 g/dL (1.3-4.6); Glomerular Filtration Rate 75.7 mL/min (90-130); Glucose 97 mg/dL (65-115); Magnesium 1.6 mg/dL (1.7-2.3); Osmolality Calculated 288 mOsm/kg (285-295); Sodium 139 mmol/L (136-145); Total Bilirubin 0.5 mg/dL (0.15-1.2); Total Protein 5.6 g/dL (6.6-8.7)
[2021-02-13 13:23] LABS: Partial Thromboplastin Time 168.8 SECONDS (23.9-36.7)
[2021-02-13] MEDS: propofol 1,000 MG/100 ML INJ 13.61 MG IV (13:42)
[2021-02-13] MEDS: magnesium sulfate premix 4 GM/100 ML PREMIX IV (13:58)
--- NOTE | 2021-02-13 14:38 | ECG_ITS ---
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 Measurements Intervals [place] Rate: 80 P: 62 [place]: 181 QRS: -72 QRSD: 116 T: 35 QT: 418 QTc: 485 Interpretive Statements SINUS RHYTHM LEFT AXIS DEVIATION [QRS AXIS < -30] MODERATE INTRAVENTRICULAR CONDUCTION DELAY [110+ ms QRS DURATION] NONSPECIFIC ST ELEVATION [0.05+ mV ST ELEVATION] Compared to ECG 02/13/2021 10:22:09 Intraventricular conduction delay now present ST (T wave) deviation still present Electronically Signed On 02-13-2021 16:14:56 ALARM FIELD TECHNICIAN by Wen Nugent M.D. [id number]
--- NOTE | 2021-02-13 17:57 | PC.NURSE ---
Shift Note Frequent safety and comfort rounds continue. Orders and/or nursing care completed as indicated. Patient monitored for response to intervention and treatment(s). Education provided includes treatment plan, medications and intubation. Pt unable to comprehend info at this time. Remains ventilated. Sedation running per orders. Levophed remains infusing. VSS. No other issues noted. Will continue to monitor.
--- NOTE | 2021-02-13 18:33 | P.CONIM_ITS ---
Providers/Reason For Consult Consulting Physician/Specialty*: BART Valenzuela MD/cardiology Reason for Consult*: Patient is elevated troponin T/hypotension/abnormal EKG Requesting Physician: Dr. Colunga Attending Physician: Tab Colunga MD History of Present Illness History of Present Illness Shayan Dickson is a 35 year old male is admitted to the hospital with a history of drug overdose. He had a GCS score of 7. He got intubated and is admitted to the ICU for further evaluation and management. He was found to be hypotensive and is currently on Levophed of 6 mics per KG per minute. His oxygenation are adequate. He is currently is sedated. Information mostly from the medical records and from the medical staff. This patient has a history of polysubstance abuse.He reportedly overdosed clonidine and trazodone. His tox screen so far is negative. he is currently intubated and on an FiO2 of 28%. He had an echocardiogram which revealed an LV ejection fraction of 30 to 35%. Diffuse hypokinesia of the left ventricle. The right atrium and right ventricle also were found to be mildly dilated with a slightly diminished ejection fraction of the right ventricle. This patient had multiple hospital admissions in the recent past for various complaints including suicidal ideation, major depression, psychosis, drug overdose, multiple personality disorder, foreign body ingestion, etc. He seems to have an uncle who is interested in his care. But he is not available at this time of dictation. We also do not have information on the type of drugs that he has been abusing in the past. Is a troponin T was 144 at the baseline. At 2 hours it was 110 and at 6 hours, it was 70. Review of Systems Narrative: Patient was brought to the hospital with a GCS score of 7. CONSTITUTIONAL: No fever or chills. EYES: No documented visual problems in the past. ENT: Details not available CARDIOVASCULAR: No history for cardiomyopathy RESPIRATORY: No significant cough. GASTROINTESTINAL: History of ulcerative colitis and GI bleed GENITOURINARY: No dysuria or hematuria. INTEGUMENTARY: No skin rashes or history of skin cancer. NEURO: No transient ischemic attacks or amaurosis. PSYCHIATRIC: History of bipolar disorder, personality disorder, suicidal ideations HEMATOLOGIC: No bleeding disorders or significant anemia. ENDOCRINE: No history of diabetes MUSCULOSKELETAL: No recent joint pain or swelling. ALLERGY/IMMUNOLOGY: As mentioned above. Meds/Allergies Home Medications and Allergies Home Medications Medication Instructions Recorded Confirmed Last Taken Type bisacodyl 10 mg PO DAILY PRN 30 Days #60 tab 02/09/21 02/13/21 Unknown Rx chlorpromazine 50 mg PO TID 30 Days #240 tab 02/09/21 02/13/21 Unknown Rx eszopiclone [Lunesta] 1 mg PO BEDTIME 30 Days #30 tab 02/09/21 02/13/21 Unknown Rx hydroxyzine pamoate 50 mg PO Q6H PRN 30 Days #180 cap 02/09/21 02/13/21 Unknown Rx pantoprazole 40 mg PO BID 30 Days #60 tab 02/09/21 02/13/21 Unknown Rx trazodone 100 mg PO BEDTIME PRN 30 Days #30 02/09/21 02/13/21 Unknown Rx tab clonazepam 0.5 mg PO BID@02/13/21 02/13/21 Unknown History Allergies Allergy/AdvReac Type Severity Reaction Status Date / Time mushroom Allergy Unknown Unknown Verified 01/09/21 08:19 escitalopram [From Lexapro] Allergy ALGY-Anaphy Verified 01/09/21 08:19 laxis NSAIDS (Non-Steroidal Allergy ADR-Abdominal Verified 01/09/21 08:19 Anti-Inflamma Pain venlafaxine [From Effexor] Allergy ALGY-Anaphy Verified 01/09/21 08:19 laxis Current Medications Current Medications Generic Name Dose Route Start Last Admin Trade Name Freq PRN Reason Stop Dose Admin Heparin Sodium (Porcine) 0 unit 02/13/21 04:50 02/13/21 05:43 Heparin 5,000 Unit/Ml Inj 1 Ml IV 5,500 unit PRN PRN Administration Heparin weight-base protocol Protocol Propofol 1,000 mg in 100 mls @ 0 mls/hr 02/13/21 01:30 02/13/21 17:03 Diprivan IV 30 mcg/kg/min .Q0M NEFTALY 20.41 mls/hr Titration Protocol Per Protocol Fentanyl 1,000 mcg/ Sodium 100 mls @ 0 mls/hr 02/13/21 01:30 02/13/21 10:43 Chloride IV 50 mcg/hr .Q0M NEFTALY 5 mls/hr Administration Protocol Per Protocol Norepinephrine Bitartrate 4 mg 254 mls @ 0 mls/hr 02/13/21 02:00 02/13/21 10:45 / Dextrose IV 6 mcg/min .Q0M NEFTALY 22.86 mls/hr Titration Protocol Per Protocol Heparin Sodium/Sodium Chloride 25,000 unit in 500 mls @ 0 mls/hr 02/13/21 05:00 02/13/21 13:34 Heparin Drip IV 0 unit/kg/hr .Q0M NEFTALY 0 mls/hr Titration Protocol Per Protocol Vancomycin/PEG/NADA/Lysine/Water 1,500 mg in 300 mls @ 200 mls/hr 02/13/21 12:00 02/13/21 13:59 Vancocin IV Infused Q12H NEFTALY Infusion Sodium Chloride 1,000 mls @ 100 mls/hr 02/13/21 08:00 02/13/21 18:31 Sodium Chloride 0.9% IV 100 mls/hr .Q10H NEFTALY Administration Piperacillin Sod/Tazobactam 50 mls @ 12.5 mls/hr 02/13/21 09:00 02/13/21 16:25 Sod 3.375 gm/ Sodium Chloride IV 12.5 mls/hr Q8H NEFTALY Administration Pantoprazole Sodium 40 mg 02/13/21 09:00 02/13/21 08:06 Pantoprazole 40 Mg Sdv IVP 40 mg DAILY NEFTALY Administration PFSH Acute PFSH: Medical History Opiate misuse Schizophrenia Suicide attempt Ulcerative colitis Surgical History History of appendectomy Social History Smoking and tobacco status: current every day smoker Alcohol intake: never Vitals/I&O/Wt Last Vital Signs Temp 97.9 F 02/13/21 12:00 Pulse 84 02/13/21 16:00 Resp 14 02/13/21 18:06 BP 92/60 02/13/21 16:00 Pulse Ox 95 02/13/21 18:06 02/13/21 02/13/21 02/13/21 06:59 14:59 22:59 Intake Total 1050 / 1050 1018.399 / 9382.992 4027.523 / 2181.922 Output Total 750 / 750 850 / 850 800 / 1650 Balance 300 / 300 168.399 / 168.399 363.523 / 531.922 Weight last 48 hrs Weight 250 lb Physical Exam Narrative: EXAM NARRATIVE: GENERAL: The patient is intubated and sedated. Moves all extremities. HEENT: No significant pallor, icterus or lymphadenopathy.Oral cavity: There are no mucous membrane lesions. NECK: Trachea appears to be central. No masses noted. No JVD or thyromegaly appreciated. RESPIRATORY: Chest is symmetrical. No intercostals muscle retraction or any accessory muscle activation. There is no chest wall tenderness. Breath sounds are heard bilaterally. No rales or rhonchi heard. No evidence of any consolidation. BREASTS: Deferred. HEART: The heart sounds are normal. No S3 or S4. No significant murmurs. No pericardial rub ABDOMEN: No vessel pulsations or distention. No tenderness. No organomegaly appreciated. Bowel sounds are normally heard. : Deferred. RECTAL: Deferred. LYMPHATIC: No lymphadenopathy noted in the neck or groin. EXTREMITIES: Trace edema with no cyanosis. Peripheral pulses are felt fairly good volume and amplitude. MUSCULOSKELETAL: No acute joint deformities or swelling SKIN: There are no significant rashes or ecchymosis NEUROPSYCHIATRIC: Patient is intubated and sedated. Urinary Catheter Management^: García: Cath Placed During This Visit: yes Reason for Continuing Indwelling Catheter: Accurate Measurement of Urinary Output in Critically Ill Patients Urinary Catheter Date of Insertion: 02/13/21 Data Labs: Other Labs: Laboratory Last Values WBC 14.3 10^3/uL (4.0 -10.0) H 02/13/21 02:35 RBC 3.87 10^6/uL (4.1 -5.3) L 02/13/21 02:35 Hgb 11.3 g/dL (11.7-1 6.6) L 02/13/21 02:35 Hct 35.2 % (42.0-52.0 ) L 02/13/21 02:35 MCV 91.0 fl (80-94) 02/13/21 02:35 MCH 29.2 pg (28.0-34. 0) 02/13/21 02:35 MCHC 32.1 g/dL (30.0-3 6.0) 02/13/21 02:35 RDW 13.3 % (12.1-15.1 ) 02/13/21 02:35 Plt Count 216 10^3/cmm (130 -400) 02/13/21 02:35 MPV 10.0 fL (7.4-10.4 ) 02/13/21 02:35 Neut % (Auto) 84.1 % 02/13/21 02:35 Lymph % (Auto) 5.8 % 02/13/21 02:35 [place] % (Auto) 9.3 % 02/13/21 02:35 Eos % (Auto) 0.1 % 02/13/21 02:35 Baso % (Auto) 0.1 % 02/13/21 02:35 Neut # (Auto) 11.99 10^3/uL (1. 8-7.7) H 02/13/21 02:35 Lymph # (Auto) 0.8 10^3/uL (0.8- 4.8) 02/13/21 02:35 [place] # (Auto) 1.3 10^3/uL (0.2- 0.9) H 02/13/21 02:35 Eos # (Auto) 0.0 10^3/uL (0.0- 0.8) 02/13/21 02:35 Baso # (Auto) 0.0 10^3/uL (0.0- 0.1) 02/13/21 02:35 Nucleated RBC % (a uto) 0 % 02/13/21 02:35 Nucleated RBCs # 0.0 /100WBC 02/13/21 02:35 PT 14.20 SECONDS (12 .1-14.9) 02/13/21 02:35 INR 1.07 (0.8-1.2) 02/13/21 02:35 APTT 168.8 SECONDS (23 .9-36.7) H* D 02/13/21 12:23 Specimen Type Arterial 02/13/21 02:55 Sample Site Radial, right 02/13/21 02:55 ABG pH 7.34 (7.35-7.45) L 02/13/21 02:55 ABG pCO2 47.0 mmHg (35-45) H 02/13/21 02:55 ABG pO2 122.0 mmHg (80.0- 100.0) H 02/13/21 02:55 ABG HCO3 25.3 mmol/L (22-2 6) 02/13/21 02:55 ABG Base Excess -0.9 mmol/L (-2.0 -2.0) 02/13/21 02:55 David Test Pos 02/13/21 02:55 Hematocrit 41.5 % (42-52) L 02/13/21 02:55 O2 Delivery Device Vent 02/13/21 02:55 FiO2 40.0 % 02/13/21 02:55 PEEP 5.0 cmH20 02/13/21 02:55 Cattle Rancher ID [email or web address] 02/13/21 02:55 Sodium 139 mmol/L (136-1 45) 02/13/21 12:23 Potassium 4.0 mmol/L (3.5-5 .1) 02/13/21 12:23 Chloride 103 mmol/L (98-10 7) 02/13/21 12:23 Carbon Dioxide 23 mmol/L (22-29) 02/13/21 12:23 Anion Gap 17.0 (5-19) 02/13/21 12:23 BUN 13 mg/dL (6-20) 02/13/21 12:23 Creatinine 1.1 mg/dL (0.7-1. 2) 02/13/21 12:23 GFR Calculation 75.7 mL/min (90-1 30) L 02/13/21 12:23 Glucose 97 mg/dL (65-115) 02/13/21 12:23 Calculated Osmolal ity 288 mOsm/kg (285- 295) 02/13/21 12:23 Calcium 8.1 mg/dL (8.5-10 .5) L 02/13/21 12:23 Phosphorus 3.1 mg/dL (2.5-4. 5) 02/13/21 12:23 Magnesium 1.6 mg/dL (1.7-2. 3) L 02/13/21 12:23 Total Bilirubin 0.5 mg/dL (0.15-1 .2) 02/13/21 12:23 AST 88 U/L (0-40) H 02/13/21 12:23 ALT 31 U/L (0-41) 02/13/21 12:23 Alkaline Phosphata se 70 IU/L (40-130) 02/13/21 12:23 Creatine Kinase 3122 U/L (39-308) H* 02/13/21 02:35 Troponin T Baselin e 144 ng/L (0-15) H* 02/13/21 02:35 Troponin T 120 Min [place] 110.2 ng/L (0-15) H 02/13/21 04:25 Delta Troponin T -33.8 ABS# (0-10) L 02/13/21 04:25 Troponin T Hi Sens 6Hr 70.66 ng/L (0-15) H 02/13/21 08:49 Troponin T Hi Sens 6Hr Delta -73.34 ng/L (0-12 ) L 02/13/21 08:49 Total Protein 5.6 g/dL (6.6-8.7 ) L 02/13/21 12:23 Albumin 3.3 g/dL (3.5-5.2 ) L 02/13/21 12:23 Globulin 2.3 g/dL (1.3-4.6 ) 02/13/21 12:23 Lipase 26 U/L (13-60) 02/13/21 02:35 Procalcitonin 2.03 ng/mL (0-0.5 ) H 02/13/21 02:35 TSH 2.99 uIU/mL (0.27 -4.20) 02/13/21 02:35 Urine Color Yellow (Yellow) 02/13/21 03:00 Urine Appearance Clear (CLEAR) 02/13/21 03:00 Urine pH 5 (5-7) 02/13/21 03:00 Ur Specific Gravit y 1.030 (1.005-1.0 30) 02/13/21 03:00 Urine Protein Trace (Negative) 02/13/21 03:00 Urine Glucose (UA) Norm (Normal) 02/13/21 03:00 Urine Ketones Negative (Negati ve) 02/13/21 03:00 Urine Blood 3+ (Negative) H 02/13/21 03:00 Urine Nitrate Negative (Negati ve) 02/13/21 03:00 Urine Bilirubin Neg (Negative) 02/13/21 03:00 Urine Urobilinogen Neg mg/dL (Negati ve) 02/13/21 03:00 Ur Leukocyte Riya ase Negative (Negati ve) 02/13/21 03:00 Urine RBC 5-10 /hpf (0-2) H 02/13/21 03:00 Urine WBC Rare /hpf (0-5) 02/13/21 03:00 Ur Squamous Epith Cells Rare /hpf (0-5) 02/13/21 03:00 Amorphous Sediment Not Reportable 02/13/21 03:00 Urine Bacteria None /hpf (NONE) 02/13/21 03:00 Salicylates < 0.3 mg/dL (3-10 ) L 02/13/21 02:35 Urine Opiates Scre en Negative ng/mL (N egative) 02/13/21 03:00 Acetaminophen < 5.0 ug/mL (10-3 0) L 02/13/21 02:35 Ur Barbiturates Sc reen Negative ng/mL (N egative) 02/13/21 03:00 Ur Phencyclidine S crn Negative ng/mL (N egative) 02/13/21 03:00 Ur Amphetamines Sc reen Negative ng/mL (N egative) 02/13/21 03:00 U Benzodiazepines Scrn Negative ng/mL (N egative) 02/13/21 03:00 Urine Cocaine Scre en Negative ng/mL (N egative) 02/13/21 03:00 U Marijuana (THC) Screen Negative ng/mL (N egative) 02/13/21 03:00 Drug overdose cardiomyopathy drug overdose cardiomyopathy Imaging^: CT Chest: Radiologist's impression: CT of the chest 1. Tiny burden of acute pulmonary emboli in the right upper lobe and middle lobe. No right heart strain. 2. Support tubes and lines are in good position. CT Head: Radiologist's impression: The examination is limited by patient motion. 2. No acute infarct or hemorrhage. 3. No calvarial or skull base fracture. Echo: My impression: Diffuse hypokinesis of the left ventricle with a diminished ejection fraction of 30 to 35%. Mildly dilated right ventricle with slightly diminished ejection fraction. Mildly dilated right atrium No significant valvular abnormalities. No significant pericardial effusion No similar previous studies are available for comparison EKG^: EKG 1: My Interpretation: Sinus tachycardia with a rate of 101 bpm. Nonspecific IVCD. Left axis deviation. No acute ST-T changes. EKG 2: My Interpretation: Normal sinus rhythm with nonspecific IVCD. Left axis deviation. No acute ST-T changes. Incomplete right bundle branch block EKG 3: My Interpretation: Normal sinus rhythm with nonspecific IVCD. Left axis deviation. QT prolongation with a QTC of 485. A&P Assessment and plan (1) Elevated troponin: Elevated troponin most likely related to type II myocardial infarction. The EKG changes are nonspecific. Status: Acute (2) Non-ischemic cardiomyopathy: It is not clear as to how long this patient had cardiomyopathy. Most likely this is drug-induced. The details of the drug history is not available at this time. Patient apparently he noted heart failure. He need to be closely monitored for heart failure. Once the hemodynamics improves, we may consider re starting ARB/nitrates. Status: Acute (3) QT prolongation: The etiology is not clear. Most likely it is drug related. His rhythm needs to be closely monitored on the telemetry. If he develops any arrhythmia or any further prolongation of the QT, we may consider magnesium IV. Status: Acute (4) Drug overdose, intentional: Management as per the primary. Status: Acute Qualifiers: Encounter type: initial encounter Qualified Code(s): T50.902A - Poisoning by unspecified drugs, medicaments and biological substances, intentional self-harm, initial encounter (5) Altered mental status: Management as per the primary. Status: Acute Qualifiers: Altered mental status type: coma Coma depth: [place] coma 3-8 Coma timing: at arrival to emergency department Qualified Code(s): R40.2432 - [place] coma scale score 3-8, at arrival to emergency department (6) Pulmonary embolism: Patient is on IV anticoagulant. This may be continued. Status: Acute Qualifiers: Acute cor pulmonale presence: without acute cor pulmonale Chronicity: unspecified Pulmonary embolism type: other Qualified Code(s): I26.99 - Other pulmonary embolism without acute cor pulmonale Additional A&P Information Patient is to be closely monitored on telemetry until the QTc is stabilized. Consider starting him on ARB/JARVIS inhibitor with nitrates, once the hemodynamics have stabilized. Consult Attestations Medical Necessity Statement: Patient requires continued hospital stay for close monitoring and further management Coding Level of Care Code Acute Rating Examiner for Jordan Fwkaitlin History Detailed Exam Detailed Medical Decision Making High Complexity Diagnoses Elevated troponin R77.8 Non-ischemic cardiomyopathy I42.8 QT prolongation R94.31 Drug overdose, intentional T50.902A Encounter type: initial encounter Altered mental status R40.2432 Altered mental status type: coma Coma depth: [place] coma 3-8 Coma timing: at arrival to emergency department Pulmonary embolism I26.99 Acute cor pulmonale presence: without acute cor pulmonale Chronicity: unspecified Pulmonary embolism type: other
--- NOTE | 2021-02-13 19:05 | PC.NURSE ---
Notified Dr. Colunga of PTT of 31. Order given to restart heparin drip at previous rate without a bolus and continue to follow heparin protocol.
[2021-02-13 19:43] LABS: Glucose Point of Care 113 mg/dL (70-110)
[2021-02-13] MEDS: acetaminophen 325 mg Tablet 650 MG PO (19:46)
[2021-02-13] MEDS: propofol 1,000 MG/100 ML INJ 20.41 MG IV (19:54)
[2021-02-14] VITALS (52 sets, daily range): BP systolic 84–133; BP diastolic 51–87; PULSE 68–124; RESP 11–32; TEMP 36.8–37.6; O2SAT 76–97
[2021-02-14] MEDS: piperacillin-tazobactam 3.375 GM in sodium chloride 0.9% (plus) 50 ML IV ×3 (00:27→16:53)
[2021-02-14] MEDS: propofol 1,000 MG/100 ML INJ 27.22 MG IV (00:46)
[2021-02-14] MEDS: heparin drip 25,000 UNIT/500 ML PREMIX 29 UNIT IV (03:28)
[2021-02-14] MEDS: sodium chloride 0.9% 1,000 ML 100 ML IV ×2 (03:43→13:45)
[2021-02-14 04:50] LABS: Basophils % 0.4 %; Eosinophils # 0.3 10^3/uL (0.0-0.8); Eosinophils % 3.3 %; Hematocrit 32.7 % (42.0-52.0); Hemoglobin 10.2 g/dL (11.7-16.6); Lymphocytes # 2.1 10^3/uL (0.8-4.8); Mean Corpuscular HGB Conc 31.2 g/dL (30.0-36.0); Mean Corpuscular Hemoglobin 29.1 pg (28.0-34.0); Mean Corpuscular Volume 93.4 fl (80-94); Mean Platelet Volume 10.2 fL (7.4-10.4); Monocytes % 10.9 %; Nucleated Red Blood Cells % 0 %; Platelet Count 186 10^3/cmm (130-400); Red Cell Distribution Width 13.7 % (12.1-15.1); White Blood Count 9.5 10^3/uL (4.0-10.0)
[2021-02-14] MEDS: propofol 1,000 MG/100 ML INJ 17.01 MG IV (04:51)
[2021-02-14 05:04] LABS: INR 1.17 (0.8-1.2)
[2021-02-14 05:09] LABS: Ammonia 18 umol/L (16-60); Lactate (Lactic Acid level) 0.8 mmol/L (0.5-2.2)
[2021-02-14 05:25] LABS: NT Pro B Type Natriuretic Pept 565 pg/mL (0-125); Procalcitonin 2.06 ng/mL (0-0.5)
[2021-02-14 05:36] LABS: ABG PCO2 40.1 mmHg (35-45); ABG PH Result 7.42 (7.35-7.45); Arterial Blood Gas Hematocrit 33.5 % (42-52); Base Excess ABG 1.1 mmol/L (-2.0-2.0); Blood Gas Allen Test Pos; Blood Gas Operator Identificat glc; Blood Gas Sample Site Radial, right; Blood Gas Sample Type Arterial; HCO3 ABG 25.7 mmol/L (22-26); Oxygen Device VENT
[2021-02-14 05:38] LABS: Alanine Aminotransferase 34 U/L (0-41); Alkaline Phosphatase 63 IU/L (40-130); Anion Gap 14.9 (5-19); Aspartate Amino Transferase 87 U/L (0-40); Blood Urea Nitrogen 8 mg/dL (6-20); C Reactive Protein 112.1 mg/L (0.0-4.9); Calcium 7.4 mg/dL (8.5-10.5); Carbon Dioxide 21 mmol/L (22-29); Chloride 108 mmol/L (98-107); Globulin 2.2 g/dL (1.3-4.6); Glomerular Filtration Rate 95.5 mL/min (90-130); Glucose 91 mg/dL (65-115); Magnesium 1.9 mg/dL (1.7-2.3); Osmolality Calculated 288 mOsm/kg (285-295); Phosphorus 2.2 mg/dL (2.5-4.5); Potassium 3.9 mmol/L (3.5-5.1); Sodium 140 mmol/L (136-145); Total Bilirubin 0.7 mg/dL (0.15-1.2); Total Protein 5.2 g/dL (6.6-8.7)
[2021-02-14 05:58] LABS: Creatine Phosphokinase 5740 U/L (39-308)
--- NOTE | 2021-02-14 06:00 | ECG_ITS ---
[facility] Test Date: 2021-02-14 Pat Name: Shayan Dickson Department: Room: [facility] Gender: Male Derrick Worker: : 1985 Requested By: Tab Colunga Order Number: [id number] Krzysztof MD: Phuc Valenzuela M.D. Measurements Intervals [place] Rate: 68 P: 60 MD: 182 QRS: -41 QRSD: 118 T: 49 QT: 425 QTc: 452 Interpretive Statements SINUS RHYTHM LEFT AXIS DEVIATION [QRS AXIS < -30] MODERATE INTRAVENTRICULAR CONDUCTION DELAY [110+ ms QRS DURATION] Compared to ECG 02/13/2021 14:44:36 ST (T wave) deviation no longer present Electronically Signed On 02-14-2021 22:13:03 SECURITY INCIDENT HANDLER by Phuc Valenzuela M.D. [id number]
--- NOTE | 2021-02-14 07:02 | PC.NURSE ---
Report received, pt resting in bed. Remains ventilated. ETT at26cm, AC 14, VT500, Fio2 28%, and peep 5. No s/s of SOB. Levophed at 5mcg, fentanyl at 50, propofol at 40, and ns at 100. Per offgoing nurse, pt raised up in bed when sedation weaned down and attempted to reach for ETT. Remains in B wrist restraints per orders. Restraints checked and released per protocol, oral care and repositioning q2h and PRN. García cath remains in place draining freely to BSD. VSS. Will monitor.
[2021-02-14] MEDS: pantoprazole 40 mg SDV IVP (07:57)
[2021-02-14] MEDS: aspirin 81 mg Chew Tablet PO (07:57)
[2021-02-14] MEDS: phosphorus 250 mg Tablet PO ×2 (08:35→16:53)
[2021-02-14] MEDS: sodium bicarbonate 650 mg Tablet PO ×3 (08:37→20:21)
--- NOTE | 2021-02-14 08:53 | PC.NURSE ---
Pt sedation paused, placed on pressure support per RT. Tolerated well. Extubated per MD orders. Remains restrained until sedation clears system and is able to follow all commands appropriately. Will monitor
--- NOTE | 2021-02-14 09:32 | PC.NURSE ---
Levophed turned off. BP stable at this time. VSS. Restraints released per protocol. Pt able to answer questions and was able to brush teeth with setup help. Bedside swallow study performed, pt tolerated well. Will continue to monitor.
[2021-02-14 09:37] LABS: Partial Thromboplastin Time 116.5 SECONDS (23.9-36.7)
--- NOTE | 2021-02-14 10:03 | PC.NURSE ---
wasted 60cc fentanyl with naila.
--- NOTE | 2021-02-14 10:03 | PC.NURSE ---
60ml fentanyl wasted with Estefania BUSTAMANTE. Spoke with poison control, updated them with VS and pt condition and they are closing their end of monitoring the pt.
[2021-02-14] MEDS: midodrine 5 mg TABLET PO ×3 (10:07→20:21)
--- NOTE | 2021-02-14 10:12 | P.PN_ITS ---
Subjective Subjective: Interval history: Patient is extubated. He is drowsy. But seems to be answering questions appropriately. Patient is off the vasopressors. The blood pressure is 112/60. Afebrile. Medications: Reviewed: Yes Medication Review Details: Laboratory Last Values WBC 9.5 10^3/uL (4.0- 10.0) 02/14/21 04:25 RBC 3.50 10^6/uL (4.1 -5.3) L 02/14/21 04:25 Hgb 10.2 g/dL (11.7-1 6.6) L 02/14/21 04:25 Hct 32.7 % (42.0-52.0 ) L 02/14/21 04:25 MCV 93.4 fl (80-94) 02/14/21 04:25 MCH 29.1 pg (28.0-34. 0) 02/14/21 04:25 MCHC 31.2 g/dL (30.0-3 6.0) 02/14/21 04:25 RDW 13.7 % (12.1-15.1 ) 02/14/21 04:25 Plt Count 186 10^3/cmm (130 -400) 02/14/21 04:25 MPV 10.2 fL (7.4-10.4 ) 02/14/21 04:25 Neut % (Auto) 63.0 % 02/14/21 04:25 Lymph % (Auto) 22.0 % 02/14/21 04:25 Gage % (Auto) 10.9 % 02/14/21 04:25 Eos % (Auto) 3.3 % 02/14/21 04:25 Baso % (Auto) 0.4 % 02/14/21 04:25 Neut # (Auto) 6.00 10^3/uL (1.8 -7.7) 02/14/21 04:25 Lymph # (Auto) 2.1 10^3/uL (0.8- 4.8) 02/14/21 04:25 Gage # (Auto) 1.0 10^3/uL (0.2- 0.9) H 02/14/21 04:25 Eos # (Auto) 0.3 10^3/uL (0.0- 0.8) 02/14/21 04:25 Baso # (Auto) 0.0 10^3/uL (0.0- 0.1) 02/14/21 04:25 Nucleated RBC % (a uto) 0 % 02/14/21 04:25 Nucleated RBCs # 0.0 /100WBC 02/14/21 04:25 PT 15.20 SECONDS (12 .1-14.9) H 02/14/21 04:25 INR 1.17 (0.8-1.2) 02/14/21 04:25 APTT 116.5 SECONDS (23 .9-36.7) H 02/14/21 08:01 D-Dimer 0.60 ug/mIFEU (0- 0.59) H 02/14/21 04:25 Specimen Type Arterial 02/14/21 05:23 Sample Site Radial, right 02/14/21 05:23 ABG pH 7.42 (7.35-7.45) 02/14/21 05:23 ABG pCO2 40.1 mmHg (35-45) 02/14/21 05:23 ABG pO2 107.0 mmHg (80.0- 100.0) H 02/14/21 05:23 ABG HCO3 25.7 mmol/L (22-2 6) 02/14/21 05:23 ABG Base Excess 1.1 mmol/L (-2.0- 2.0) 02/14/21 05:23 David Test Pos 02/14/21 05:23 Hematocrit 33.5 % (42-52) L 02/14/21 05:23 O2 Delivery Device Vent 02/14/21 05:23 FiO2 28.0 % 02/14/21 05:23 Tidal Volume 0.50 02/14/21 05:23 PEEP 5.0 cmH20 02/14/21 05:23 Vehicle Leasing And Rental Manager ID glc 02/14/21 05:23 Sodium 140 mmol/L (136-1 45) 02/14/21 04:25 Potassium 3.9 mmol/L (3.5-5 .1) 02/14/21 04:25 Chloride 108 mmol/L (98-10 7) H 02/14/21 04:25 Carbon Dioxide 21 mmol/L (22-29) L 02/14/21 04:25 Anion Gap 14.9 (5-19) 02/14/21 04:25 BUN 8 mg/dL (6-20) 02/14/21 04:25 Creatinine 0.9 mg/dL (0.7-1. 2) 02/14/21 04:25 GFR Calculation 95.5 mL/min (90-1 30) 02/14/21 04:25 Glucose 91 mg/dL (65-115) 02/14/21 04:25 POC Glucose 113 mg/dL (70-110 ) H 02/13/21 00:33 Calculated Osmolal ity 288 mOsm/kg (285- 295) 02/14/21 04:25 Lactate 0.8 mmol/L (0.5-2 .2) 02/14/21 04:25 Calcium 7.4 mg/dL (8.5-10 .5) L 02/14/21 04:25 Phosphorus 2.2 mg/dL (2.5-4. 5) L 02/14/21 04:25 Magnesium 1.9 mg/dL (1.7-2. 3) 02/14/21 04:25 Total Bilirubin 0.7 mg/dL (0.15-1 .2) 02/14/21 04:25 AST 87 U/L (0-40) H 02/14/21 04:25 ALT 34 U/L (0-41) 02/14/21 04:25 Alkaline Phosphata se 63 IU/L (40-130) 02/14/21 04:25 Ammonia 18 umol/L (16-60) 02/14/21 04:25 Creatine Kinase 5740 U/L (39-308) H* 02/14/21 04:25 Troponin T Baselin e 144 ng/L (0-15) H* 02/13/21 02:35 Troponin T 120 Min jocelynn 110.2 ng/L (0-15) H 02/13/21 04:25 Delta Troponin T -33.8 ABS# (0-10) L 02/13/21 04:25 Troponin T Hi Sens 6Hr 70.66 ng/L (0-15) H 02/13/21 08:49 Troponin T Hi Sens 6Hr Delta -73.34 ng/L (0-12 ) L 02/13/21 08:49 C-Reactive Protein 112.1 mg/L (0.0-4 .9) H 02/14/21 04:25 NT-Pro-B Natriuret Pep 565 pg/mL (0-125) H 02/14/21 04:25 Total Protein 5.2 g/dL (6.6-8.7 ) L 02/14/21 04:25 Albumin 3.0 g/dL (3.5-5.2 ) L 02/14/21 04:25 Globulin 2.2 g/dL (1.3-4.6 ) 02/14/21 04:25 Lipase 26 U/L (13-60) 02/13/21 02:35 Procalcitonin 2.06 ng/mL (0-0.5 ) H 02/14/21 04:25 TSH 2.99 uIU/mL (0.27 -4.20) 02/13/21 02:35 Urine Color Yellow (Yellow) 02/13/21 03:00 Urine Appearance Clear (CLEAR) 02/13/21 03:00 Urine pH 5 (5-7) 02/13/21 03:00 Ur Specific [place]it [place] 1.030 (1.005-1.0 30) 02/13/21 03:00 Urine Protein Trace (Negative) 02/13/21 03:00 Urine Glucose (UA) Norm (Normal) 02/13/21 03:00 Urine Ketones Negative (Negati ve) 02/13/21 03:00 Urine Blood 3+ (Negative) H 02/13/21 03:00 Urine Nitrate Negative (Negati ve) 02/13/21 03:00 Urine Bilirubin Neg (Negative) 02/13/21 03:00 Urine Urobilinogen Neg mg/dL (Negati ve) 02/13/21 03:00 Ur Leukocyte Riya ase Negative (Negati ve) 02/13/21 03:00 Urine RBC 5-10 /hpf (0-2) H 02/13/21 03:00 Urine WBC Rare /hpf (0-5) 02/13/21 03:00 Ur Squamous Epith Cells Rare /hpf (0-5) 02/13/21 03:00 Amorphous Sediment Not Reportable 02/13/21 03:00 Urine Bacteria None /hpf (NONE) 02/13/21 03:00 Salicylates < 0.3 mg/dL (3-10 ) L 02/13/21 02:35 Urine Opiates Scre en Negative ng/mL (N egative) 02/13/21 03:00 Acetaminophen < 5.0 ug/mL (10-3 0) L 02/13/21 02:35 Ur Barbiturates Sc reen Negative ng/mL (N egative) 02/13/21 03:00 Ur Phencyclidine S crn Negative ng/mL (N egative) 02/13/21 03:00 Ur Amphetamines Sc reen Negative ng/mL (N egative) 02/13/21 03:00 U Benzodiazepines Scrn Negative ng/mL (N egative) 02/13/21 03:00 Urine Cocaine Scre en Negative ng/mL (N egative) 02/13/21 03:00 U Marijuana (THC) Screen Negative ng/mL (N egative) 02/13/21 03:00 Vitals/I&O/Wt Last Vital Signs Temp 98.2 F 02/14/21 08:00 Pulse 70 02/14/21 08:00 Resp 32 H 02/14/21 08:43 BP 103/66 02/14/21 08:00 Pulse Ox 96 02/14/21 08:43 02/13/21 02/14/21 02/14/21 22:59 06:59 14:59 Intake Total 1379.692 / 2398.091 1970.622 / 4368.713 336.436 / 336.436 Output Total 800 / 1650 1950 / 3600 1150 / 1150 Balance 579.692 / 748.091 20.622 / 768.713 -813.564 / -813.564 Weight last 48 hrs Weight 244 lb 11.2 oz Weight 250 lb Physical Exam Narrative: EXAM NARRATIVE: GENERAL: The patient is extubated. HEENT: No significant pallor, icterus or lymphadenopathy.Oral cavity: There are no mucous membrane lesions. NECK: Trachea appears to be central. No masses noted. No JVD or thyromegaly appreciated. RESPIRATORY: Chest is symmetrical. No intercostals muscle retraction or any accessory muscle activation. There is no chest wall tenderness. Breath sounds are heard bilaterally. No rales or rhonchi heard. No evidence of any consolidation. BREASTS: Deferred. HEART: The heart sounds are normal. No S3 or S4. No significant murmurs. No pericardial rub ABDOMEN: No vessel pulsations or distention. No tenderness. No organomegaly appreciated. Bowel sounds are normally heard. : Deferred. RECTAL: Deferred. LYMPHATIC: No lymphadenopathy noted in the neck or groin. EXTREMITIES: Trace edema with no cyanosis. Peripheral pulses are felt fairly good volume and amplitude. MUSCULOSKELETAL: No acute joint deformities or swelling SKIN: There are no significant rashes or ecchymosis NEUROPSYCHIATRIC: Patient is intubated and sedated. Urinary Catheter Management^: García: Cath Placed During This Visit: yes Reason for Continuing Indwelling Catheter: Accurate Measurement of Urinary Output in Critically Ill Patients Urinary Catheter Date of Insertion: 02/13/21 Data : 02/14/21 04:25 02/14/21 04:25 Other Labs: Laboratory Last Values WBC 9.5 10^3/uL (4.0-10.0) 02/14/21 04:25 RBC 3.50 10^6/uL (4.1-5.3) L 02/14/21 04:25 Hgb 10.2 g/dL (11.7-16.6) L 02/14/21 04:25 Hct 32.7 % (42.0-52.0) L 02/14/21 04:25 MCV 93.4 fl (80-94) 02/14/21 04:25 MCH 29.1 pg (28.0-34.0) 02/14/21 04:25 MCHC 31.2 g/dL (30.0-36.0) 02/14/21 04:25 RDW 13.7 % (12.1-15.1) 02/14/21 04:25 Plt Count 186 10^3/cmm (130-400) 02/14/21 04:25 MPV 10.2 fL (7.4-10.4) 02/14/21 04:25 Neut % (Auto) 63.0 % 02/14/21 04:25 Lymph % (Auto) 22.0 % 02/14/21 04:25 Gage % (Auto) 10.9 % 02/14/21 04:25 Eos % (Auto) 3.3 % 02/14/21 04:25 Baso % (Auto) 0.4 % 02/14/21 04:25 Neut # (Auto) 6.00 10^3/uL (1.8-7.7) 02/14/21 04:25 Lymph # (Auto) 2.1 10^3/uL (0.8-4.8) 02/14/21 04:25 Gage # (Auto) 1.0 10^3/uL (0.2-0.9) H 02/14/21 04:25 Eos # (Auto) 0.3 10^3/uL (0.0-0.8) 02/14/21 04:25 Baso # (Auto) 0.0 10^3/uL (0.0-0.1) 02/14/21 04:25 Nucleated RBC % (auto) 0 % 02/14/21 04:25 Nucleated RBCs # 0.0 /100WBC 02/14/21 04:25 PT 15.20 SECONDS (12.1-14.9) H 02/14/21 04:25 INR 1.17 (0.8-1.2) 02/14/21 04:25 APTT 116.5 SECONDS (23.9-36.7) H 02/14/21 08:01 D-Dimer 0.60 ug/mIFEU (0-0.59) H 02/14/21 04:25 Specimen Type Arterial 02/14/21 05:23 Sample Site Radial, right 02/14/21 05:23 ABG pH 7.42 (7.35-7.45) 02/14/21 05:23 ABG pCO2 40.1 mmHg (35-45) 02/14/21 05:23 ABG pO2 107.0 mmHg (80.0-100.0) H 02/14/21 05:23 ABG HCO3 25.7 mmol/L (22-26) 02/14/21 05:23 ABG Base Excess 1.1 mmol/L (-2.0-2.0) 02/14/21 05:23 David Test Pos 02/14/21 05:23 Hematocrit 33.5 % (42-52) L 02/14/21 05:23 O2 Delivery Device Vent 02/14/21 05:23 FiO2 28.0 % 02/14/21 05:23 Tidal Volume 0.50 02/14/21 05:23 PEEP 5.0 cmH20 02/14/21 05:23 Vehicle Leasing And Rental Manager ID glc 02/14/21 05:23 Sodium 140 mmol/L (136-145) 02/14/21 04:25 Potassium 3.9 mmol/L (3.5-5.1) 02/14/21 04:25 Chloride 108 mmol/L (98-107) H 02/14/21 04:25 Carbon Dioxide 21 mmol/L (22-29) L 02/14/21 04:25 Anion Gap 14.9 (5-19) 02/14/21 04:25 BUN 8 mg/dL (6-20) 02/14/21 04:25 Creatinine 0.9 mg/dL (0.7-1.2) 02/14/21 04:25 GFR Calculation 95.5 mL/min (90-130) 02/14/21 04:25 Glucose 91 mg/dL (65-115) 02/14/21 04:25 POC Glucose 113 mg/dL (70-110) H 02/13/21 00:33 Calculated Osmolality 288 mOsm/kg (285-295) 02/14/21 04:25 Lactate 0.8 mmol/L (0.5-2.2) 02/14/21 04:25 Calcium 7.4 mg/dL (8.5-10.5) L 02/14/21 04:25 Phosphorus 2.2 mg/dL (2.5-4.5) L 02/14/21 04:25 Magnesium 1.9 mg/dL (1.7-2.3) 02/14/21 04:25 Total Bilirubin 0.7 mg/dL (0.15-1.2) 02/14/21 04:25 AST 87 U/L (0-40) H 02/14/21 04:25 ALT 34 U/L (0-41) 02/14/21 04:25 Alkaline Phosphatase 63 IU/L (40-130) 02/14/21 04:25 Ammonia 18 umol/L (16-60) 02/14/21 04:25 Creatine Kinase 5740 U/L (39-308) H* 02/14/21 04:25 Troponin T Baseline 144 ng/L (0-15) H* 02/13/21 02:35 Troponin T 120 Minute 110.2 ng/L (0-15) H 02/13/21 04:25 Delta Troponin T -33.8 ABS# (0-10) L 02/13/21 04:25 Troponin T Hi Sens 6Hr 70.66 ng/L (0-15) H 02/13/21 08:49 Troponin T Hi Sens 6Hr Delta -73.34 ng/L (0-12) L 02/13/21 08:49 C-Reactive Protein 112.1 mg/L (0.0-4.9) H 02/14/21 04:25 NT-Pro-B Natriuret Pep 565 pg/mL (0-125) H 02/14/21 04:25 Total Protein 5.2 g/dL (6.6-8.7) L 02/14/21 04:25 Albumin 3.0 g/dL (3.5-5.2) L 02/14/21 04:25 Globulin 2.2 g/dL (1.3-4.6) 02/14/21 04:25 Lipase 26 U/L (13-60) 02/13/21 02:35 Procalcitonin 2.06 ng/mL (0-0.5) H 02/14/21 04:25 TSH 2.99 uIU/mL (0.27-4.20) 02/13/21 02:35 Urine Color Yellow (Yellow) 02/13/21 03:00 Urine Appearance Clear (CLEAR) 02/13/21 03:00 Urine pH 5 (5-7) 02/13/21 03:00 Ur Specific [place] 1.030 (1.005-1.030) 02/13/21 03:00 Urine Protein Trace (Negative) 02/13/21 03:00 Urine Glucose (UA) Norm (Normal) 02/13/21 03:00 Urine Ketones Negative (Negative) 02/13/21 03:00 Urine Blood 3+ (Negative) H 02/13/21 03:00 Urine Nitrate Negative (Negative) 02/13/21 03:00 Urine Bilirubin Neg (Negative) 02/13/21 03:00 Urine Urobilinogen Neg mg/dL (Negative) 02/13/21 03:00 Ur Leukocyte Esterase Negative (Negative) 02/13/21 03:00 Urine RBC 5-10 /hpf (0-2) H 02/13/21 03:00 Urine WBC Rare /hpf (0-5) 02/13/21 03:00 Ur Squamous Epith Cells Rare /hpf (0-5) 02/13/21 03:00 Amorphous Sediment Not Reportable 02/13/21 03:00 Urine Bacteria None /hpf (NONE) 02/13/21 03:00 Salicylates < 0.3 mg/dL (3-10) L 02/13/21 02:35 Urine Opiates Screen Negative ng/mL (Negative) 02/13/21 03:00 Acetaminophen < 5.0 ug/mL (10-30) L 02/13/21 02:35 Ur Barbiturates Screen Negative ng/mL (Negative) 02/13/21 03:00 Ur Phencyclidine Scrn Negative ng/mL (Negative) 02/13/21 03:00 Ur Amphetamines Screen Negative ng/mL (Negative) 02/13/21 03:00 U Benzodiazepines Scrn Negative ng/mL (Negative) 02/13/21 03:00 Urine Cocaine Screen Negative ng/mL (Negative) 02/13/21 03:00 U Marijuana (THC) Screen Negative ng/mL (Negative) 02/13/21 03:00 Micro: Microbiology 02/13/21 14:45 Gram Stain - Final Sputum - Endotracheal Wash A&P Assessment and plan (1) Elevated troponin: Elevated troponin most likely related to type II myocardial infarction. The EKG changes are nonspecific. Status: Acute (2) Non-ischemic cardiomyopathy: It is not clear as to how long this patient had cardiomyopathy. Most likely this is drug-induced. According to the patient, he always used opioids. Never used cocaine? Currently he does not appear to be in heart failure. However will be closely monitoring for this. Status: Acute (3) QT prolongation: The etiology is not clear. Most likely it is drug related. His rhythm needs to be closely monitored on the telemetry. Today the EKG shows sinus tachycardia with a heart rate of 116 bpm. Nonspecific IVCD. QTC is 466. Status: Acute (4) Drug overdose, intentional: Management as per the primary. Status: Acute Qualifiers: Encounter type: initial encounter Qualified Code(s): T50.902A - Poisoning by unspecified drugs, medicaments and biological substances, intentional self-harm, initial encounter (5) Altered mental status: Mentation is improving Status: Acute Qualifiers: Altered mental status type: coma Coma depth: [place] coma 3-8 Coma timing: at arrival to emergency department Qualified Code(s): R40.2432 - [place] coma scale score 3-8, at arrival to emergency department (6) Pulmonary embolism: Patient is on IV anticoagulant. This may be continued. Status: Acute Qualifiers: Acute cor pulmonale presence: without acute cor pulmonale Chronicity: unspecified Pulmonary embolism type: other Qualified Code(s): I26.99 - Other pulmonary embolism without acute cor pulmonale Additional A&P Information Once the blood pressure is stable, we may start him on losartan 25 mg p.o. daily and carvedilol 3.125 mg p.o. twice daily. The dose of these medications will be gradually advanced. Also may consider doing a myocardial perfusion imaging/cardiac catheterization to further evaluate the coronary status. 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
--- NOTE | 2021-02-14 10:54 | PC.NURSE ---
L femoral line removed intact. pressure held, no s/s of bleeding noted after. Dressing placed, pt educated to call nurse if bleeding starts. Light care performed and then light removed intact. Tolerated well. Urinal at bedside. Shower cap used, hair brushed and lotion applied. Will monitor.
[2021-02-14] MEDS: vancomycin 1,500 MG/300 ML PIGGYBACK 200 MG IV (11:08)
--- NOTE | 2021-02-14 11:25 | P.NPUCON_ITS ---
Providers/Reason for Consult Consulting Physican/Specialty*: Noel House MD Reason for Consult*: Suicide attempt Attending Physician: Tab Colunga MD Psych Consult HPI History of Present Illness Shayan Dickson is a 35 year old male male well known to psychiatry here with several recent admissions for hallucinations and suicidal ideation. He was just released recently denying suicidal ideation. He tells me today that he actually was suicidal at the time. He says that there is no acute stressor to cause him to want to kill himself yesterday but he took a lot of clonidine and trazodone trying to kill himself. He says this is hallucinations of actually been better lately. However he still has auditory hallucinations telling him that he should kill himself. He was in a coma and intubated yesterday. He has been extubated now but still has altered mental status. Hopefully will be ready for transfer to the neuropsychiatry unit tomorrow. Meds Current Medications: Current Medications Generic Name Dose Route Start Last Admin Trade Name Candelarioq PRN Reason Stop Dose Admin Acetaminophen 650 mg 02/13/21 05:49 02/13/21 19:46 Acetaminophen 32 5 Mg Tablet PO 650 mg Q6H PRN Administration Mild/Mod Pain Or Temp >/= 101 Aspirin 81 mg 02/14/21 09:00 02/14/21 07:57 Aspirin 81 Mg Ch ew Tablet PO 81 mg DAILY NEFTALY Administration Heparin Sodium (Po rcine) 0 unit 02/13/21 04:50 02/13/21 05:43 Heparin 5,000 Un it/Ml Inj 1 Ml IV 5,500 unit PRN PRN Administration Heparin weight-ba se protocol Protocol Propofol 1,000 mg in 100 m ls @ 0 mls/hr 02/13/21 01:30 02/14/21 08:52 Diprivan IV Infused .Q0M NEFTALY Titration Protocol Per Protocol Fentanyl 1,000 mcg / Sodium 100 mls @ 0 mls/h r 02/13/21 01:30 02/14/21 09:59 Chloride IV Infused .Q0M NEFTALY Titration Protocol Per Protocol Norepinephrine Bit artrate 4 mg 254 mls @ 0 mls/h r 02/13/21 02:00 02/14/21 03:12 / Dextrose IV Infused .Q0M NEFTALY Titration Protocol Per Protocol Heparin Sodium/Sod ium Chloride 25,000 unit in 50 0 mls @ 0 mls/hr 02/13/21 05:00 02/14/21 09:40 Heparin Drip IV 10.14 unit/kg/hr .Q0M NEFTALY 23 mls/hr Titration Protocol Per Protocol Vancomycin/PEG/NAD A/Lysine/Water 1,500 mg in 300 m ls @ 200 mls/hr 02/13/21 12:00 02/14/21 11:08 Vancocin IV 200 mls/hr Q12H NEFTALY Administration Sodium Chloride 1,000 mls @ 100 m ls/hr 02/13/21 08:00 02/14/21 03:43 Sodium Chloride 0.9% IV 100 mls/hr .Q10H NEFTALY Administration Piperacillin Sod/T azobactam 50 mls @ 12.5 mls /hr 02/13/21 09:00 02/14/21 07:57 Sod 3.375 gm/ So dium Chloride IV 12.5 mls/hr Q8H NEFTALY Administration Midodrine 5 mg 02/14/21 09:58 02/14/21 10:07 Midodrine 5 Mg T ablet PO 5 mg TID NEFTALY Administration Pantoprazole Sodiu m 40 mg 02/13/21 09:00 02/14/21 07:57 Pantoprazole 40 Mg Sdv IVP 40 mg DAILY NEFTALY Administration Potassium Phosphat e 250 mg 02/14/21 09:00 02/14/21 08:35 Phosphorus 250 M g Tablet PO 250 mg BID NEFTALY Administration Sodium Bicarbonate 650 mg 02/14/21 09:00 02/14/21 08:37 Sodium Bicarbona te 650 Mg Tablet PO 650 mg TID NEFTALY Administration PFSH NPU PFSH: Medical History (Updated 02/14/21 @ 11:41 by Noel House MD) Opiate misuse Schizophrenia Suicide attempt Ulcerative colitis Surgical History History of appendectomy Social History Smoking and tobacco status: current every day smoker Alcohol intake: never Mental Status Exam MSE Comments: He is in the bed in hospital gown in the ICU. He has EKG monitors and IV tubes in place. He appeared to be asleep when I arrived. He awoke easily. He was pleasant with the evaluation. psychomotor activity is decreased.. Speech at times of a regular rate and rhythm. However there are significant delays where he almost seems like he is in an absence seizure. These may last for 15 or 20 seconds. Alert, oriented to person, place, and year. It took him quite some time to come up with each of those answers. He thinks it is February and does not know the day of the week. I told him that Marcela was coming up and when I ask the day of the week a minute later he said that today was Marcela. Attention and concentration is intermittent. His concentration appears to be poor.. Memory is appears to be poor Mood is depressed. Affect is somewhat bland. Thought process is difficult to discern. There is no spontaneous speech. He answered questions but with significant delay.. Thought content: He admits to auditory hallucinations but says that they are better than they were. They still tell him to kill himself. He denies visual hallucinations. He said that he was paranoid. He said that he thought demons were out to get him. No current he denies current suicidal ideation but still would like to be . He denies homicidal ideation.. Fund of knowledge is difficult to discern at this point. Insight and judgment appear to be poor. Impulse control is poor as well. Vitals/I&O/Wt Last Vital Signs Temp 98.2 F 02/14/21 08:00 Pulse 100 02/14/21 10:00 Resp 14 02/14/21 10:00 BP 100/64 02/14/21 10:00 Pulse Ox 91 02/14/21 10:00 02/13/21 02/14/21 02/14/21 22:59 06:59 14:59 Intake Total 1379.692 / 2398.091 1970.622 / 4368.713 336.436 / 336.436 Output Total 800 / 1650 1950 / 3600 1150 / 1150 Balance 579.692 / 748.091 20.622 / 768.713 -813.564 / -813.564 Weight last 48 hrs Weight 110.994 kg Weight 113.398 kg Physical Exam Urinary Catheter Management^: García: Cath Placed During This Visit: yes, but has since been removed by the nurse Reason for Continuing Indwelling Catheter: Decision to DC Catheter Urinary Catheter Date of Insertion: 02/13/21 Date Urinary Catheter Removed: 02/14/21 Time Urinary Catheter Discontinued: 10:54 Data NPU Micro: Micro: Microbiology 02/13/21 14:45 Gram Stain - Final Sputum - Endotrac heal Wash Sputum Culture - P reliminary Microbiology 02/13/21 14:45 Sputum - Endotracheal Wash Gram Stain - Final 02/13/21 14:45 Sputum - Endotracheal Wash Sputum Culture - Preliminary A&P Assessment and plan (1) Schizophrenia: This is a 35-year-old male with schizophrenia and multiple admissions recently for suicidal ideation and attempts. He needs to be admitted to the neuropsychiatry unit but is currently not completely out of altered mental status due to his overdose. Hopefully he will be ready for transfer to neuropsychiatry tomorrow. Status: Acute (2) Altered mental status: Status: Acute Qualifiers: Altered mental status type: coma Coma depth: [place] coma 3-8 Coma timing: at arrival to emergency department Qualified Code(s): R40.2432 - [place] coma scale score 3-8, at arrival to emergency department (3) Drug overdose, intentional: Status: Acute Qualifiers: Encounter type: initial encounter Qualified Code(s): T50.902A - Poisoning by unspecified drugs, medicaments and biological substances, intentional self-harm, initial encounter Involuntary Hold Information 96 Hour Hold: 96 Hour Involuntary Admission: Yes 96 Hour Hold Ending Date: 01/30/21 96 Hour Hold Ending Time: 00:01 Attestations NPU Medical Necessity Statement*: Inpatient hospitalization is medically necessary and the clinically appropriate intervention at this time. We will initiate medications and make changes as indicated. He will be in the hospital for over 2 midnights. 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
--- NOTE | 2021-02-14 12:31 | PC.NURSE ---
increased o2 to 4LNC d/t o2 sats in mid to upper 80's. Encouraged pt to cough and expectorate sputum in specimen cup. Pt asking to leave, education provided r/t OD and heart damage. Will monitor.
--- NOTE | 2021-02-14 13:58 | ECG_ITS ---
[facility] Test Date: 2021-02-14 Pat Name: Shayan Dickson Department: Room: [facility] Gender: Male [employer] Technician: : [id number] Requested By: Tab Colunga Order Number: [id number] Krzysztof MD: Phuc Valenzuela M.D. Measurements Intervals [place] Rate: 113 P: 56 [place]: 187 QRS: -73 QRSD: 113 T: 34 QT: 339 QTc: 465 Interpretive Statements SINUS TACHYCARDIA LEFT AXIS DEVIATION [QRS AXIS < -30] PATTERN CONSISTENT WITH PULMONARY DISEASE MODERATE INTRAVENTRICULAR CONDUCTION DELAY [110+ ms QRS DURATION] Compared to ECG 02/14/2021 05:19:34 Sinus rhythm no longer present Electronically Signed On 02-14-2021 22:06:13 [employer]CH[employer] by Phuc Valenzuela M.D. [email or web address]
--- NOTE | 2021-02-14 13:58 | XRR_ITS ---
PROCEDURE INFORMATION: Exam: XR Chest Exam date and time: 02/14/2021 1:58 PM Age: 35 years old Clinical indication: Shortness of breath; Additional info: Increased o2 demand TECHNIQUE: Imaging protocol: XR of the chest. Views: 1 view. COMPARISON: CR (CHEST, ) 02/13/2021 1:29 AM FINDINGS: Tubes, catheters and devices: Removal of endotracheal tube. Removal of the enteric tube. Lungs: Unremarkable. No consolidation. Pleural spaces: Unremarkable. No pleural effusion. No pneumothorax. Heart/Mediastinum: Unremarkable. No cardiomegaly. Bones/joints: Unremarkable. IMPRESSION: Removal of endotracheal tube. XR/XR chest 1V portable [id number] Impression. Radiation Dose CTDIVOL = (mGy): DLP = (mGy-cm)
--- NOTE | 2021-02-14 16:07 | PC.NURSE ---
Addendum entered by Adrian Umanzor RN 02/14/21 16:14: Pt is disoriented to place and time. He keeps stating that the year is 1985. He refused for this nurse to get his temp as well. Original Note: Pt refusing O2, meds and any form of treatment at this point. notified.
--- NOTE | 2021-02-14 16:10 | ECG_ITS ---
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 Measurements Intervals [place] Rate: 116 P: 59 ME: 181 QRS: -63 QRSD: 116 T: 35 QT: 335 QTc: 466 Interpretive Statements SINUS TACHYCARDIA LEFT AXIS DEVIATION [QRS AXIS < -30] PATTERN CONSISTENT WITH PULMONARY DISEASE MODERATE INTRAVENTRICULAR CONDUCTION DELAY [110+ ms QRS DURATION] NONSPECIFIC ST ELEVATION [0.05+ mV ST ELEVATION] Compared to ECG 02/14/2021 14:04:45 ST (T wave) deviation now present Electronically Signed On 02-14-2021 22:19:15 DO ALL OPERATOR by Phuc Valenzuela M.D. [email or web address]'s hospitalShield Therapeuticsuniversity hospitals portage [facility].[email or web address]/store/OM/[id number]
--- NOTE | 2021-02-14 16:51 | PC.NURSE ---
Addendum entered by Adrian Umanzor RN 02/14/21 17:02: Pt now agreeable to medications, lab draws, and treatments. Lab notified to come and draw PTT. Pt lying in bed with o2@5LNC. Will monitor. Original Note: Pt able to stand on side of bed with assist to urinate. Able to give IM haldol while pt standing. Once back in bed, pt agreed to O2 use. Will monitor.
[2021-02-14] MEDS: haloperidol inj 5 mg/mL INJ 1 mL 2 MG IM (16:52)
[2021-02-14] MEDS: FUROsemide 10 mg/mL SDV 4mL 40 MG IVP (16:53)
[2021-02-14] MEDS: metOLazone 5 MG Tablet 10 MG PO (16:54)
--- NOTE | 2021-02-14 17:09 | P.PN_ITS ---
Subjective Subjective: Interval history: Patient was examined multiple times throughout the day Early in the morning, patient had episodes of agitation on decrease sedation, he was kept intubated on mechanical ventilation, and sedation was slowly weaned, he did well on a spontaneous breathing trials, after adequate trial, he was successfully extubated on 2-3 nasal cannula,. He was reexamined, he admits that he intentionally overdosed, reports active suicidal ideation, he is vague in which medications he takes, but he did take Klonopin, he nodded yes to tricyclic antidepressant, possible doxepin, nodding yes to trazodone. Patient was becoming more short of breath, his oxygen requirements were increasing to 6 L, and was complaining of chest pain, I had ordered EKG series, troponin series, ABG. Eventually patient started refusing medical care, ripped off his oxygen, refused to be examined by nurses, refused blood draws, refused medications. I reexamined patient, discussed with him my concerns for his pulmonary emboli, his NSTEMI, his acute respiratory failure, concerns for fluid overload, significant morbidity and mortality associated. Patient said I do not care I would just want to . I advised patient that if we do not intervene he has a high risk of morbidity and mortality. He again said you do not understand me I just want to . Patient again was refusing medical care, refusing medications. I discussed with psychiatry service, I have discussed with risk management. As currently patient is actively suicidal, is in the active state, he is a danger to himself, in my opinion he does not have capacity to make decisions as he is actively suicidal and he keeps repeating I just want to , and by not adequately being treated for his respiratory failure, NSTEMI, fluid overload, pulmonary embolism, he has a poor outcome associated. And morbidity and mortality associated. I advised nurses that we will try her best to control his agitation with medications, weighing the risks and benefits of these sedating medications as he has a risk of QT prolongation, risk of respiratory failure, we will have to act in his best interest. I will try combination of Haldol, Ativan to control his agitation, while closely monitoring his QT interval, his respiratory status, and avoiding overuse of the medication. I would avoid restraints, for now, as he is not been combative towards me or staff or he is not inflicted self-harm to himself Vitals/I&O/Wt Last Vital Signs Temp 99.5 F 02/14/21 12:30 Pulse 116 H 02/14/21 16:00 Resp 16 02/14/21 16:00 BP 118/80 02/14/21 16:00 Pulse Ox 93 02/14/21 16:00 02/14/21 02/14/21 02/14/21 06:59 14:59 22:59 Intake Total 1970.622 / 4368.713 3016.436 / 3016.436 800 / 3816.436 Output Total 1950 / 3600 2049 225 / 2275 Balance 20.622 / 768.713 966.436 / 966.436 575 / 1541.436 Weight last 48 hrs Weight 110.994 kg Weight 113.398 kg Physical Exam Const: COMMON NORMALS: no acute distress ORIENTATION/CONSCIOUSNESS: Yes awake, Yes oriented to person and Yes oriented to place; not oriented to time Resp: COMMON NORMALS: normal respiratory effort, No retractions, No use of accessory muscles and clear to auscultation bilaterally AUSCULTATION: clear to auscultation bilaterally Cardio: COMMON NORMALS: regular rate, regular rhythm, S1 normal heart sound present and S2 normal heart sound present RATE: regular rate RHYTHM: regular rhythm HEART SOUNDS: S1 normal heart sound present and S2 normal heart sound present GI: COMMON NORMALS: Normal to inspection, nondistended, normoactive bowel sounds present, Soft to palpation and non-tender PALPATION: Yes Soft to palpation Extremity: COMMON NORMALS: no pedal edema Neuro: SENSORIUM/ORIENTATION: Yes oriented to person, Yes oriented to place and No oriented to time Psych: ATTITUDE: Yes uncooperative and Yes agitated ACTIVITY/MOTOR BEHAVIOR: Yes disorganized behavior SPEECH: Yes minimal MOOD & AFFECT: Yes depressed mood THOUGHT PROCESS: disorganized THOUGHT CONTENT: Yes Suicidality present INSIGHT: Poor insight present (Psych) JUDGEMENT: Poor judgement present (Psych) Urinary Catheter Management^: García: Cath Placed During This Visit: yes, but has since been removed by the nurse Reason for Continuing Indwelling Catheter: Decision to DC Catheter Urinary Catheter Date of Insertion: 02/13/21 Date Urinary Catheter Removed: 02/14/21 Time Urinary Catheter Discontinued: 10:54 Data : 02/14/21 04:25 02/14/21 04:25 Micro: Microbiology 02/13/21 14:45 Gram Stain - Final Sputum - Endotracheal Wash Sputum Culture - Preliminary A&P Assessment and plan (1) Suicidal ideation: -Multiple hospital admissions in the past for active suicidal ideation, suicide attempt -Recent hospitalization for active suicide ideation, suicide attempt, intentional overdose, requiring ICU admission, was on pressors, critically ill -Currently actively suicidal, tells me he wants to , refusing medical care -Given his past history, it is highly likely that he is intentionally overdosed on his medications, he does admit that he overdosed on Klonopin, possible trazodone, possible early his home medication such as doxepin -In my opinion he does not have capacity to make decision as he is actively suicidal currently, and is not making informed decisions -For now we will do our best to use sedating medications such as Haldol and Ativan to control his agitation, allow for medication administration, blood draws, and appropriate medical interventions -We will weigh the risks and benefits of these medications, as they are associate with side effects, monitor respiratory discretion, QT interval, and use them sparingly -For now hold off on restraints, as he has not threatened staff, threatened me, has not had any physical violence towards anyone, no physical violence towards himself -Perform 96-hour hold- Status: Acute (2) Altered mental status: likely related to polysubstance abuse given history, Urine drug seen negative, negative salicylate and acetaminophen levels Has a history of TCA overdose, unclear if he took TCA Ethylene glycol level Has had chest pain complaints this afternoon, repeat EKG series, troponin series EKG show QTC 466, MS 181, QRS 116, sinus tachycardia, nonspecific ST-T wave changes Telemetry monitoring Alternate possibilities include PE vs NSTEMI Status: Acute Qualifiers: Altered mental status type: coma Coma depth: [place] coma 3-8 Coma timing: at arrival to emergency department Qualified Code(s): R40.2432 - [place] coma scale score 3-8, at arrival to emergency department (3) Hypoxemia: related to PE, poor resp effort from low GCS Currently extubated, on 6 L, he ripped off his oxygen, after controlling his agitation will replace oxygen Status: Acute (4) Acute kidney injury: -Secondary to dehydration, rhabdomyolysis Status: Acute (5) Pulmonary embolism: CTA with right side PE On heparin infusion On echocardiogram as below Status: Acute Qualifiers: Acute cor pulmonale presence: without acute cor pulmonale Chronicity: unspecified Pulmonary embolism type: other Qualified Code(s): I26.99 - Other pulmonary embolism without acute cor pulmonale (6) Elevated troponin I level: cannot exclude NSTEMI at this time 6-hour troponin 70.6 6, delta 73.34 may be 2/2 PE, demand supply mismatch On heparin drip as above Continue aspirin 81 mg echocardiogram Diffuse hypokinesis of the left ventricle with a diminished ejection fraction of 30 to 35%. Mildly dilated right ventricle with slightly diminished ejection fraction. Mildly dilated right atrium No significant valvular abnormalities. No significant pericardial effusion No similar previous studies are available for comparison Has had chest pain complaints, repeat EKG series, troponin series We will continue to monitor closely Status: Acute (7) Drug overdose, intentional: poison control notified monitor for serotonin syndrome, development of arrhythmias Status: Acute Qualifiers: Encounter type: initial encounter Qualified Code(s): T50.902A - Poisoning by unspecified drugs, medicaments and biological substances, intentional self-harm, initial encounter (8) Acute respiratory failure: -GCS 7 on admission, intubated to protect airway -Successfully extubated February 14, 2021, onto 2 to 3 L, now to 6 L -Refusing to wear oxygen, ripped off his oxygen, saturating in the low 80s -We will use sedation minimally, control agitation, replace oxygen, monitor for respiratory depression, repeat ABG -Continue Zosyn for aspiration pneumonia coverage Status: Acute (9) Shock: -Currently on 6 of Levophed -Start p.o. midodrine -Possibly secondary to TCA -Possibly secondary to sepsis related to pneumonia -Possibly secondary to sedating medication -Possibly secondary to pulmonary emboli, NSTEMI -Continue Levophed, -Monitor closely Status: Acute (10) Suicide attempt: Status: Acute (11) QT prolongation: Status: Acute (12) Non-ischemic cardiomyopathy: Status: Acute (13) Elevated troponin: Status: Acute Additional A&P Information chest. Ua unremarkabke. No gross localizing signs of infection at this time, pending blood cx. Vaccinated for covid 19 with 2 dose mrna series (takn nov and Jan 30, 2021) Attestations Medical Necessity Statement*: Patient requires hospitalization for suicidal ideation, acute respiratory failure, NSTEMI, pulmonary embolism Coding Level of Care Code Acute Vice President Business Development for [facility] Diagnoses Suicidal ideation R45.851 Altered mental status R40.2432 Altered mental status type: coma Coma depth: [place] coma 3-8 Coma timing: at arrival to emergency department Hypoxemia R09.02 Acute kidney injury N17.9 Pulmonary embolism I26.99 Acute cor pulmonale presence: without acute cor pulmonale Chronicity: unspecified Pulmonary embolism type: other Elevated troponin I level R77.8 Drug overdose, intentional T50.902A Encounter type: initial encounter Acute respiratory failure J96.00 Shock R57.9 Suicide attempt T14.91XA QT prolongation R94.31 Non-ischemic cardiomyopathy I42.8 Elevated troponin R77.8
[2021-02-14 18:33] LABS: Troponin(5th) Baseline 28 ng/L (0-15)
--- NOTE | 2021-02-14 20:10 | ECG_ITS ---
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 Measurements Intervals [place] Rate: 105 P: 50 [place]: 148 QRS: -73 QRSD: 110 T: 51 QT: 350 QTc: 463 Interpretive Statements SINUS TACHYCARDIA LEFT AXIS DEVIATION [QRS AXIS < -30] PATTERN CONSISTENT WITH PULMONARY DISEASE Compared to ECG 02/14/2021 15:50:39 Intraventricular conduction delay no longer present ST (T wave) deviation no longer present Electronically Signed On 02-14-2021 22:19:51 VETERINARY TECHNOLOGIST by Phuc Valenzuela M.D. [email or web address] Solutionstallahatchie general hospitalFirst Aid Shot Therapywilson health.rSmart/store/OM/[id number]
[2021-02-14] MEDS: heparin 5,000 unit/mL INJ 1 mL IV (20:21)
[2021-02-14 20:57] LABS: Troponin 5 2HR 25.32 ng/L (0-15)
[2021-02-14 21:19] LABS: Troponin 5 2HR Delta -2.68 ABS# (0-10)
[2021-02-15] VITALS (50 sets, daily range): BP systolic 86–133; BP diastolic 61–85; PULSE 76–95; RESP 10–21; TEMP 36.2–37.2; O2SAT 84–97; BMI 32.7
[2021-02-15 00:03] LABS: Troponin 5 6HR 26.56 ng/L (0-15)
[2021-02-15 00:08] LABS: Troponin 5 6HR Delta -1.44 ng/L (0-12)
[2021-02-15] MEDS: haloperidol inj 5 mg/mL INJ 1 mL 1 MG IM (00:09)
[2021-02-15] MEDS: heparin drip 25,000 UNIT/500 ML PREMIX 26.99 UNIT IV (00:09)
[2021-02-15] MEDS: vancomycin 1,500 MG/300 ML PIGGYBACK 200 MG IV ×2 (00:10→23:48)
[2021-02-15] MEDS: piperacillin-tazobactam 3.375 GM in sodium chloride 0.9% (plus) 50 ML IV ×2 (00:10→08:11)
[2021-02-15 00:42] LABS: Vancomycin Trough 10.1 ug/mL (10-15)
[2021-02-15 02:35] LABS: Basophils % 0.2 %; Eosinophils # 0.3 10^3/uL (0.0-0.8); Eosinophils % 2.4 %; Hematocrit 35.7 % (42.0-52.0); Hemoglobin 11.4 g/dL (11.7-16.6); Lymphocytes % 18.8 %; Mean Corpuscular HGB Conc 31.9 g/dL (30.0-36.0); Mean Corpuscular Hemoglobin 28.6 pg (28.0-34.0); Mean Corpuscular Volume 89.7 fl (80-94); Mean Platelet Volume 9.9 fL (7.4-10.4); Monocytes # 1.2 10^3/uL (0.2-0.9); Monocytes % 10.8 %; Neutrophils # 7.21 10^3/uL (1.8-7.7); Neutrophils % 67.6 %; Nucleated Red Blood Cells % 0 %; Platelet Count 176 10^3/cmm (130-400); Red Blood Count 3.98 10^6/uL (4.1-5.3); Red Cell Distribution Width 13.1 % (12.1-15.1); White Blood Count 10.7 10^3/uL (4.0-10.0)
[2021-02-15 02:46] LABS: INR 1.08 (0.8-1.2); Partial Thromboplastin Time 59.3 SECONDS (23.9-36.7)
[2021-02-15 02:48] LABS: D Dimer 0.98 ug/mIFEU (0-0.59)
[2021-02-15 02:55] LABS: Ammonia 44 umol/L (16-60); Lactate (Lactic Acid level) 0.7 mmol/L (0.5-2.2)
[2021-02-15 03:05] LABS: NT Pro B Type Natriuretic Pept 1379 pg/mL (0-125); Procalcitonin 1.13 ng/mL (0-0.5)
[2021-02-15 03:17] LABS: Alanine Aminotransferase 43 U/L (0-41); Albumin Level 3.5 g/dL (3.5-5.2); Alkaline Phosphatase 69 IU/L (40-130); Anion Gap 17.7 (5-19); Aspartate Amino Transferase 96 U/L (0-40); Blood Urea Nitrogen 3 mg/dL (6-20); C Reactive Protein 146.9 mg/L (0.0-4.9); Calcium 8.5 mg/dL (8.5-10.5); Carbon Dioxide 25 mmol/L (22-29); Chloride 94 mmol/L (98-107); Globulin 2.7 g/dL (1.3-4.6); Glomerular Filtration Rate 109.4 mL/min (90-130); Glucose 89 mg/dL (65-115); Magnesium 1.5 mg/dL (1.7-2.3); Osmolality Calculated 272 mOsm/kg (285-295); Phosphorus 3.2 mg/dL (2.5-4.5); Potassium 3.7 mmol/L (3.5-5.1); Sodium 133 mmol/L (136-145); Total Bilirubin 0.7 mg/dL (0.15-1.2); Total Protein 6.2 g/dL (6.6-8.7)
[2021-02-15 03:47] LABS: Creatine Phosphokinase 4156 U/L (39-308)
--- NOTE | 2021-02-15 04:17 | PC.NURSE ---
To start the shift the patient was drowsy, coming in and out of sleep, but remaining cooperative. During the shift the patient has had an oxygen saturation ranging from 86% to 93%, while on a nasal cannula at 5 liters. The Patient was oriented to self only at the start of the shift, and then around midnight the patient was more awake and alert was was able to answer all of the neuro questions, demonstrating that the patient was oriented to person, place, time, and situation. The rest of the patient's vitals have remained within normal parameters. Dr. Malone was made aware that the patient's urine output thus far has been 3,375 mL. At 0109, 1 mg of Haldol was administered to the patient as he was beginning to become uncooperative and resisting putting on his nasal cannula. The patient has since the injection, been more cooperative again.
--- NOTE | 2021-02-15 07:00 | XRR_ITS ---
PROCEDURE INFORMATION: Exam: XR Chest Exam date and time: 02/15/2021 7:00 AM Age: 35 years old Clinical indication: Shortness of breath; Additional info: SOB TECHNIQUE: Imaging protocol: XR of the chest. Views: 1 view. COMPARISON: CR XR chest 1V portable [id number] 02/14/2021 2:14 PM FINDINGS: Lungs: Unremarkable. No consolidation. Pleural spaces: Unremarkable. No pleural effusion. No pneumothorax. Heart/Mediastinum: Unremarkable. No cardiomegaly. Bones/joints: Unremarkable. XR/XR chest 1V portable [id number] IMPRESSION: No acute findings. Radiation Dose CTDIVOL = (mGy): DLP = (mGy-cm)
[2021-02-15] MEDS: midodrine 5 mg TABLET PO ×3 (08:23→20:11)
[2021-02-15] MEDS: sodium bicarbonate 650 mg Tablet PO ×3 (08:23→20:11)
[2021-02-15] MEDS: pantoprazole 40 mg SDV IVP (08:23)
[2021-02-15] MEDS: aspirin 81 mg Chew Tablet PO (08:23)
[2021-02-15] MEDS: phosphorus 250 mg Tablet PO ×2 (08:24→17:39)
[2021-02-15] MEDS: magnesium sulfate premix 4 GM/100 ML PREMIX IV (09:17)
[2021-02-15] MEDS: FUROsemide 10 mg/mL SDV 4mL 40 MG IVP (09:18)
[2021-02-15] MEDS: apixaban 5 mg Tablet 10 MG PO ×2 (09:18→20:11)
--- NOTE | 2021-02-15 09:30 | ECG_ITS ---
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 Measurements Intervals [place] Rate: 86 P: 66 CT: 174 QRS: -65 QRSD: 116 T: 32 QT: 378 QTc: 453 Interpretive Statements SINUS RHYTHM LEFT AXIS DEVIATION [QRS AXIS < -30] MODERATE INTRAVENTRICULAR CONDUCTION DELAY [110+ ms QRS DURATION] Compared to ECG 02/14/2021 18:37:10 Intraventricular conduction delay now present Sinus tachycardia no longer present Electronically Signed On 02-15-2021 15:56:59 LOG RIDER by Phuc Valenzuela M.D. [email or web address] general [email or web address] Rockohiohealth marion [facility] hospital.maniaTV/store/OM/[id number]
[2021-02-15 10:06] LABS: Partial Thromboplastin Time 58.4 SECONDS (23.9-36.7)
[2021-02-15] MEDS: spironolactone 25 mg Tablet PO (11:59)
--- NOTE | 2021-02-15 12:00 | PC.NURSE ---
Patient refused vancomycin. Nurse explained reasoning for vancomycin and the risks with refusing it.
[2021-02-15] MEDS: ondansetron 2 mg/ML SDV 2 mL 4 MG IVP (13:02)
[2021-02-15] MEDS: simethicone 40 mg/0.6 mL Bottle 30mL PO (13:02)
--- NOTE | 2021-02-15 13:30 | ECG_ITS ---
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 Measurements Intervals [place] Rate: 85 P: 59 [place]: 175 QRS: -63 QRSD: 109 T: 20 QT: 376 QTc: 449 Interpretive Statements SINUS RHYTHM LEFT AXIS DEVIATION [QRS AXIS < -30] INCOMPLETE RIGHT BUNDLE BRANCH BLOCK [90+ ms QRS DURATION, TERMINAL R IN V1/V2, 40+ ms S IN I/aVL/V4/V5/V6] Compared to ECG 02/15/2021 10:36:23 Incomplete right bundle-branch block now present Intraventricular conduction delay no longer present Electronically Signed On 02-15-2021 15:57:12 SCALEHOUSE ATTENDANT by Phuc Valenzuela M.D. [email or web address] f. k[facility]edy [facility].TGV [email or web address]/store/OM/[id number]
--- NOTE | 2021-02-15 14:09 | P.NPUCON_ITS ---
Providers/Reason for Consult Consulting Physican/Specialty*: Noel House MD/Psychiatrist Reason for Consult*: Overdose with medications Attending Physician: Tab Colunga MD Psych Consult HPI History of Present Illness He seems to be doing better today. He did not have the hesitancy and thought that he had yesterday when I saw him. He says that he is cooperating with treatment now. He says that he wants to go home as soon as he can. He understands that he will need to come over to neuropsychiatry for treatment first. He says he has been compliant with medications. He says that his auditory hallucinations are present and do tell him to kill himself. There are somewhat better than usual. He says that he does not want to at this time. He just wants to go home. He says that he will cooperate with treatment now. He says that he is on Suboxone film 8-2 mg twice a day. However, he was just released from the neuropsychiatry unit on February 07 and was not prescribed Suboxone during the hospitalization. He was not prescribed Suboxone upon release. Meds 2 Current Medications: Current Medications Generic Name Dose Route Start Last Admin Trade Name Freq PRN Reason Stop Dose Admin Acetaminophen 650 mg 02/13/21 05:49 02/13/21 19:46 Acetaminophen 32 5 Mg Tablet PO 650 mg Q6H PRN Administration Mild/Mod Pain Or Temp >/= 101 Apixaban 10 mg 02/15/21 09:00 02/15/21 09:18 Apixaban 5 Mg Ta blet PO 10 mg BID@0900,2100 NEFTALY Administration Aspirin 81 mg 02/14/21 09:00 02/15/21 08:23 Aspirin 81 Mg Ch ew Tablet PO 81 mg DAILY NEFTALY Administration Haloperidol Lactat e 1 mg 02/14/21 16:12 02/15/21 00:09 Haloperidol Inj 5 Mg/Ml Inj 1 Ml IM 1 mg Q4H PRN Administration AGITATION Fentanyl 1,000 mcg / Sodium 100 mls @ 0 mls/h r 02/13/21 01:30 02/14/21 09:59 Chloride IV Infused .Q0M NEFTALY Titration Protocol Per Protocol Norepinephrine Bit artrate 4 mg 254 mls @ 0 mls/h r 02/13/21 02:00 02/14/21 03:12 / Dextrose IV Infused .Q0M NEFTALY Titration Protocol Per Protocol Vancomycin/PEG/NAD A/Lysine/Water 1,500 mg in 300 m ls @ 200 mls/hr 02/13/21 12:00 02/15/21 12:00 Vancocin IV Not Given Q12H NEFTALY Piperacillin Sod/T azobactam 50 mls @ 12.5 mls /hr 02/13/21 09:00 02/15/21 08:11 Sod 3.375 gm/ So dium Chloride IV 12.5 mls/hr Q8H NEFTALY Administration Losartan Potassium 25 mg 02/15/21 09:00 02/15/21 08:24 Losartan 50 Mg T ablet PO Not Given DAILY NEFTALY Midodrine 5 mg 02/14/21 09:58 02/15/21 08:23 Midodrine 5 Mg T ablet PO 5 mg TID NEFTALY Administration Ondansetron HCl 4 mg 02/13/21 05:49 02/15/21 13:02 Ondansetron 2 Mg /Ml Sdv 2 Ml IVP 4 mg Q8H PRN Administration vomiting, or N/V if npo Pantoprazole Sodiu m 40 mg 02/13/21 09:00 02/15/21 08:23 Pantoprazole 40 Mg Sdv IVP 40 mg DAILY NEFTALY Administration Potassium Phosphat e 250 mg 02/14/21 09:00 02/15/21 08:24 Phosphorus 250 M g Tablet PO 250 mg BID NEFTALY Administration Simethicone 40 mg 02/15/21 12:52 02/15/21 13:02 Simethicone 40 M g/0.6 Ml Bottle 30 ml PO 0.6 ml QID PRN Administration FLATULENCE Sodium Bicarbonate 650 mg 02/14/21 09:00 02/15/21 08:23 Sodium Bicarbona te 650 Mg Tablet PO 650 mg TID NEFTALY Administration Spironolactone 25 mg 02/15/21 12:00 02/15/21 11:59 Spironolactone 2 5 Mg Tablet PO 25 mg DAILY NEFTALY Administration PFSH NPU PFSH: Medical History (Updated 02/14/21 @ 17:18 by Tab Colunga MD) Opiate misuse Schizophrenia Suicide attempt Ulcerative colitis Surgical History History of appendectomy Social History Smoking and tobacco status: current every day smoker Alcohol intake: never Mental Status Exam MSE Comments: This is a 35-year-old male who appears his stated age, well- developed well-nourished who is pleasant and cooperative with the evaluation. He is dressed in hospital gown and somewhat disheveled. psychomotor activity mildly decreased. Speech is at a regular rate and rhythm, normal volume, good articulation, not pressured. Alert, oriented X3 Attention and concentration are within normal limits. Memory is intact Mood is depressed but better. Affect is mildly dysphoric. Thought process is logical and goal-directed. Thought content: He admits to auditory hallucinations which he says are better than they have been. Denies visual hallucinations. No delusions or paranoia are noted. No current suicidal ideation, and no homicidal ideation. Fund of knowledge is fair. Insight and judgment appear to be only fair. Impulse control is fair as well. Vitals/I&O/Wt Last Vital Signs Temp 97.5 F L 02/15/21 12:00 Pulse 89 02/15/21 12:00 Resp 20 H 02/15/21 12:00 BP 109/68 02/15/21 12:00 Pulse Ox 91 02/15/21 12:00 02/14/21 02/15/21 02/15/21 22:59 06:59 14:59 Intake Total 1567.667 / 4584.103 832.533 / 5416.636 1205.609 / 1205.609 Output Total 1625 / 3675 3375 / 7050 3400 / 3400 Balance -57.333 / 909.103 -2542.467 / -1633.364 -2194.391 / -2194.391 Weight last 48 hrs Weight 106.339 kg Weight 110.994 kg Physical Exam Urinary Catheter Management^: Gacría: Cath Placed During This Visit: yes, but has since been removed by the nurse Reason for Continuing Indwelling Catheter: Decision to DC Catheter Urinary Catheter Date of Insertion: 02/13/21 Date Urinary Catheter Removed: 02/14/21 Time Urinary Catheter Discontinued: 10:54 Data NPU Micro: Micro: Microbiology 02/13/21 14:45 Gram Stain - Final Sputum - Endotrac heal Wash Sputum Culture - F inal Microbiology 02/13/21 14:45 Sputum - Endotracheal Wash Gram Stain - Final 02/13/21 14:45 Sputum - Endotracheal Wash Sputum Culture - Final A&P Assessment and plan (1) Schizophrenia: This is a 35-year-old male with schizophrenia and multiple admissions recently for suicidal ideation and attempts. He needs to be admitted to the neuropsychiatry unit but is currently not completely out of altered mental status due to his overdose. Hopefully he will be ready for transfer to neuropsychiatry when medically cleared. Status: Acute (2) Suicidal ideation: Status: Acute (3) Drug overdose, intentional: Status: Acute Qualifiers: Encounter type: initial encounter Qualified Code(s): T50.902A - Poisoning by unspecified drugs, medicaments and biological substances, intentional self-harm, initial encounter (4) Altered mental status: Status: Acute Qualifiers: Altered mental status type: coma Coma depth: [place] coma 3-8 Coma timing: at arrival to emergency department Qualified Code(s): R40.2432 - [place] coma scale score 3-8, at arrival to emergency department Involuntary Hold Information 96 Hour Hold: 96 Hour Involuntary Admission: Yes 96 Hour Hold Ending Date: 01/30/21 96 Hour Hold Ending Time: 00:01 Attestations NPU Medical Necessity Statement*: Inpatient hospitalization is medically necessary and the clinically appropriate intervention at this time. 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
--- NOTE | 2021-02-15 14:19 | P.PN_ITS ---
Subjective Subjective: Interval history: Patient is remaining extubated. Still seems to be somewhat drowsy. Answering most of the questions by yes or no. Denies any chest pain or chest tightness. No unusual shortness of breath. Still remaining off the vasopressors. Medications: Reviewed: Yes Medication Review Details: Current Medications Acetaminophen (Acetaminophen 325 Mg Tablet) 650 mg PO Q6H PRN PRN Reason: Mild/Mod Pain Or Temp >/= 101 Last Admin: 02/13/21 19:46 Dose: 650 mg Documented by: Apixaban (Apixaban 5 Mg Tablet) 10 mg PO BID@0900,2100 [facility] Last Admin: 02/15/21 09:18 Dose: 10 mg Documented by: Aspirin (Aspirin 81 Mg Chew Tablet) 81 mg PO DAILY [facility] Last Admin: 02/15/21 08:23 Dose: 81 mg Documented by: Bisacodyl (Bisacodyl 5 Mg Tablet) 10 mg PO DAILY PRN PRN Reason: Constipation (see protocol) Haloperidol Lactate (Haloperidol Inj 5 Mg/Ml Inj 1 Ml) 1 mg IM Q4H PRN PRN Reason: AGITATION Last Admin: 02/15/21 00:09 Dose: 1 mg Documented by: Fentanyl 1,000 mcg/ Sodium (Chloride) 100 mls @ 0 mls/hr IV .Q0M [facility]; Protocol Last Titration: 02/14/21 09:59 Dose: Infused Documented by: Norepinephrine Bitartrate 4 mg (/ Dextrose) 254 mls @ 0 mls/hr IV .Q0M [facility]; Protocol Last Titration: 02/14/21 03:12 Dose: Infused Documented by: Vancomycin/PEG/NADA/Lysine/Water (Vancocin) 1,500 mg in 300 mls @ 200 mls/hr IV Q12H [facility] Last Admin: 02/15/21 12:00 Dose: Not Given Documented by: Piperacillin Sod/Tazobactam (Sod 3.375 gm/ Sodium Chloride) 50 mls @ 12.5 mls/hr IV Q8H [facility] Last Admin: 02/15/21 08:11 Dose: 12.5 mls/hr Documented by: Losartan Potassium (Losartan 50 Mg Tablet) 25 mg PO DAILY [facility] Last Admin: 02/15/21 08:24 Dose: Not Given Documented by: Midodrine (Midodrine 5 Mg Tablet) 5 mg PO TID [facility] Last Admin: 02/15/21 08:23 Dose: 5 mg Documented by: Ondansetron HCl (Ondansetron 2 Mg/Ml Sdv 2 Ml) 4 mg IVP Q8H PRN PRN Reason: vomiting, or N/V if npo Last Admin: 02/15/21 13:02 Dose: 4 mg Documented by: Pantoprazole Sodium (Pantoprazole 40 Mg Sdv) 40 mg IVP DAILY [facility] Last Admin: 02/15/21 08:23 Dose: 40 mg Documented by: Potassium Phosphate (Phosphorus 250 Mg Tablet) 250 mg PO BID [facility] Last Admin: 02/15/21 08:24 Dose: 250 mg Documented by: Simethicone (Simethicone 40 Mg/0.6 Ml Bottle 30ml) 40 mg PO QID PRN PRN Reason: FLATULENCE Last Admin: 02/15/21 13:02 Dose: 0.6 ml Documented by: Sodium Bicarbonate (Sodium Bicarbonate 650 Mg Tablet) 650 mg PO TID [facility] Last Admin: 02/15/21 08:23 Dose: 650 mg Documented by: Spironolactone (Spironolactone 25 Mg Tablet) 25 mg PO DAILY [facility] Last Admin: 02/15/21 11:59 Dose: 25 mg Documented by: Vitals/I&O/Wt Last Vital Signs Temp 97.5 F L 02/15/21 12:00 Pulse 89 02/15/21 12:00 Resp 20 H 02/15/21 12:00 BP 109/68 02/15/21 12:00 Pulse Ox 91 02/15/21 12:00 02/14/21 02/15/21 02/15/21 22:59 06:59 14:59 Intake Total 1567.667 / 4584.103 832.533 / 5416.636 1205.609 / 1205.609 Output Total 1625 / 3675 3375 / 7050 3400 / 3400 Balance -57.333 / 909.103 -2542.467 / -1633.364 -2194.391 / -2194.391 Weight last 48 hrs Weight 234 lb 7 oz Weight 244 lb 11.2 oz Physical Exam Narrative: EXAM NARRATIVE: GENERAL: The patient is extubated. HEENT: No significant pallor, icterus or lymphadenopathy.Oral cavity: There are no mucous membrane lesions. NECK: Trachea appears to be central. No masses noted. No JVD or thyromegaly appreciated. RESPIRATORY: Chest is symmetrical. No intercostals muscle retraction or any accessory muscle activation. There is no chest wall tenderness. Breath sounds are heard bilaterally. No rales or rhonchi heard. No evidence of any consolidation. BREASTS: Deferred. HEART: The heart sounds are normal. No S3 or S4. No significant murmurs. No pericardial rub ABDOMEN: No vessel pulsations or distention. No tenderness. No organomegaly appreciated. Bowel sounds are normally heard. : Deferred. RECTAL: Deferred. LYMPHATIC: No lymphadenopathy noted in the neck or groin. EXTREMITIES: Trace edema with no cyanosis. Peripheral pulses are felt fairly good volume and amplitude. MUSCULOSKELETAL: No acute joint deformities or swelling SKIN: There are no significant rashes or ecchymosis NEUROPSYCHIATRIC: Patient is intubated and sedated. Urinary Catheter Management^: García: Cath Placed During This Visit: yes, but has since been removed by the nurse Reason for Continuing Indwelling Catheter: Decision to DC Catheter Urinary Catheter Date of Insertion: 02/13/21 Date Urinary Catheter Removed: 02/14/21 Time Urinary Catheter Discontinued: 10:54 Data : 02/16/21 04:44 02/16/21 04:44 Other Labs: Laboratory Last Values WBC 10.7 10^3/uL (4.0-10.0) H 02/15/21 02:27 RBC 3.98 10^6/uL (4.1-5.3) L 02/15/21 02:27 Hgb 11.4 g/dL (11.7-16.6) L 02/15/21 02:27 Hct 35.7 % (42.0-52.0) L 02/15/21 02:27 MCV 89.7 fl (80-94) 02/15/21 02:27 MCH 28.6 pg (28.0-34.0) 02/15/21 02:27 MCHC 31.9 g/dL (30.0-36.0) 02/15/21 02:27 RDW 13.1 % (12.1-15.1) 02/15/21 02:27 Plt Count 176 10^3/cmm (130-400) 02/15/21 02:27 MPV 9.9 fL (7.4-10.4) 02/15/21 02:27 Neut % (Auto) 67.6 % 02/15/21 02:27 Lymph % (Auto) 18.8 % 02/15/21 02:27 [place] % (Auto) 10.8 % 02/15/21 02:27 Eos % (Auto) 2.4 % 02/15/21 02:27 Baso % (Auto) 0.2 % 02/15/21 02:27 Neut # (Auto) 7.21 10^3/uL (1.8-7.7) 02/15/21 02:27 Lymph # (Auto) 2.0 10^3/uL (0.8-4.8) 02/15/21 02:27 [place] # (Auto) 1.2 10^3/uL (0.2-0.9) H 02/15/21 02:27 Eos # (Auto) 0.3 10^3/uL (0.0-0.8) 02/15/21 02:27 Baso # (Auto) 0.0 10^3/uL (0.0-0.1) 02/15/21 02:27 Nucleated RBC % (auto) 0 % 02/15/21 02:27 Nucleated RBCs # 0.0 /100WBC 02/15/21 02:27 PT 14.30 SECONDS (12.1-14.9) 02/15/21 02:27 PT Cancelled 02/15/21 02:27 INR 1.08 (0.8-1.2) 02/15/21 02:27 INR Cancelled 02/15/21 02:27 APTT 58.4 SECONDS (23.9-36.7) H 02/15/21 08:56 D-Dimer 0.98 ug/mIFEU (0-0.59) H 02/15/21 02:27 D-Dimer Cancelled 02/15/21 02:27 Specimen Type Arterial 02/14/21 05:23 Sample Site Radial, right 02/14/21 05:23 ABG pH 7.42 (7.35-7.45) 02/14/21 05:23 ABG pCO2 40.1 mmHg (35-45) 02/14/21 05:23 ABG pO2 107.0 mmHg (80.0-100.0) H 02/14/21 05:23 ABG HCO3 25.7 mmol/L (22-26) 02/14/21 05:23 ABG Base Excess 1.1 mmol/L (-2.0-2.0) 02/14/21 05:23 David Test Pos 02/14/21 05:23 Hematocrit 33.5 % (42-52) L 02/14/21 05:23 O2 Delivery Device Vent 02/14/21 05:23 FiO2 28.0 % 02/14/21 05:23 Tidal Volume 0.50 02/14/21 05:23 PEEP 5.0 cmH20 02/14/21 05:23 Wind Site Manager ID glc 02/14/21 05:23 Sodium 133 mmol/L (136-145) L 02/15/21 02:27 Sodium Cancelled 02/15/21 02:27 Potassium 3.7 mmol/L (3.5-5.1) 02/15/21 02:27 Potassium Cancelled 02/15/21 02:27 Chloride 94 mmol/L (98-107) L 02/15/21 02:27 Chloride Cancelled 02/15/21 02:27 Carbon Dioxide 25 mmol/L (22-29) 02/15/21 02:27 Carbon Dioxide Cancelled 02/15/21 02:27 Anion Gap 17.7 (5-19) 02/15/21 02:27 Anion Gap Cancelled 02/15/21 02:27 BUN 3 mg/dL (6-20) L 02/15/21 02:27 BUN Cancelled 02/15/21 02:27 Creatinine 0.8 mg/dL (0.7-1.2) 02/15/21 02:27 Creatinine Cancelled 02/15/21 02:27 GFR Calculation 109.4 mL/min (90-130) 02/15/21 02:27 GFR Calculation Cancelled 02/15/21 02:27 Glucose 89 mg/dL (65-115) 02/15/21 02:27 Glucose Cancelled 02/15/21 02:27 POC Glucose 113 mg/dL (70-110) H 02/13/21 00:33 Calculated Osmolality 272 mOsm/kg (285-295) L 02/15/21 02:27 Calculated Osmolality Cancelled 02/15/21 02:27 Lactate 0.7 mmol/L (0.5-2.2) 02/15/21 02:27 Calcium 8.5 mg/dL (8.5-10.5) 02/15/21 02:27 Calcium Cancelled 02/15/21 02:27 Phosphorus 3.2 mg/dL (2.5-4.5) 02/15/21 02:27 Phosphorus Cancelled 02/15/21 02:27 Magnesium 1.5 mg/dL (1.7-2.3) L 02/15/21 02:27 Magnesium Cancelled 02/15/21 02:27 Total Bilirubin 0.7 mg/dL (0.15-1.2) 02/15/21 02:27 Total Bilirubin Cancelled 02/15/21 02:27 AST 96 U/L (0-40) H 02/15/21 02:27 AST Cancelled 02/15/21 02:27 ALT 43 U/L (0-41) H 02/15/21 02:27 ALT Cancelled 02/15/21 02:27 Alkaline Phosphatase 69 IU/L (40-130) 02/15/21 02:27 Alkaline Phosphatase Cancelled 02/15/21 02:27 Ammonia 44 umol/L (16-60) 02/15/21 02:27 Creatine Kinase 4156 U/L (39-308) H* 02/15/21 02:27 Troponin T Baseline 28 ng/L (0-15) H 02/14/21 17:56 Troponin T 120 Minute 25.32 ng/L (0-15) H 02/14/21 20:23 Delta Troponin T -2.68 ABS# (0-10) L 02/14/21 20:23 Troponin T Hi Sens 6Hr 26.56 ng/L (0-15) H 02/14/21 23:26 Troponin T Hi Sens 6Hr Delta -1.44 ng/L (0-12) L 02/14/21 23:26 C-Reactive Protein 146.9 mg/L (0.0-4.9) H 02/15/21 02:27 C-Reactive Protein Cancelled 02/15/21 02:27 NT-Pro-B Natriuret Pep 1379 pg/mL (0-125) H 02/15/21 02:27 NT-Pro-B Natriuret Pep Cancelled 02/15/21 02:27 Total Protein 6.2 g/dL (6.6-8.7) L 02/15/21 02:27 Total Protein Cancelled 02/15/21 02:27 Albumin 3.5 g/dL (3.5-5.2) 02/15/21 02:27 Albumin Cancelled 02/15/21 02:27 Globulin 2.7 g/dL (1.3-4.6) 02/15/21 02:27 Globulin Cancelled 02/15/21 02:27 Lipase 26 U/L (13-60) 02/13/21 02:35 Procalcitonin 1.13 ng/mL (0-0.5) H 02/15/21 02:27 TSH 2.99 uIU/mL (0.27-4.20) 02/13/21 02:35 Urine Color Yellow (Yellow) 02/13/21 03:00 Urine Appearance Clear (CLEAR) 02/13/21 03:00 Urine pH 5 (5-7) 02/13/21 03:00 Ur Specific [place] 1.030 (1.005-1.030) 02/13/21 03:00 Urine Protein Trace (Negative) 02/13/21 03:00 Urine Glucose (UA) Norm (Normal) 02/13/21 03:00 Urine Ketones Negative (Negative) 02/13/21 03:00 Urine Blood 3+ (Negative) H 02/13/21 03:00 Urine Nitrate Negative (Negative) 02/13/21 03:00 Urine Bilirubin Neg (Negative) 02/13/21 03:00 Urine Urobilinogen Neg mg/dL (Negative) 02/13/21 03:00 Ur Leukocyte Esterase Negative (Negative) 02/13/21 03:00 Urine RBC 5-10 /hpf (0-2) H 02/13/21 03:00 Urine WBC Rare /hpf (0-5) 02/13/21 03:00 Ur Squamous Epith Cells Rare /hpf (0-5) 02/13/21 03:00 Amorphous Sediment Not Reportable 02/13/21 03:00 Urine Bacteria None /hpf (NONE) 02/13/21 03:00 Vancomycin Trough 10.1 ug/mL (10-15) 02/14/21 23:26 Salicylates < 0.3 mg/dL (3-10) L 02/13/21 02:35 Urine Opiates Screen Negative ng/mL (Negative) 02/13/21 03:00 Acetaminophen < 5.0 ug/mL (10-30) L 02/13/21 02:35 Ur Barbiturates Screen Negative ng/mL (Negative) 02/13/21 03:00 Ur Phencyclidine Scrn Negative ng/mL (Negative) 02/13/21 03:00 Ur Amphetamines Screen Negative ng/mL (Negative) 02/13/21 03:00 U Benzodiazepines Scrn Negative ng/mL (Negative) 02/13/21 03:00 Urine Cocaine Screen Negative ng/mL (Negative) 02/13/21 03:00 U Marijuana (THC) Screen Negative ng/mL (Negative) 02/13/21 03:00 Micro: Microbiology 02/13/21 14:45 Gram Stain - Final Sputum - Endotracheal Wash Sputum Culture - Final A&P Assessment and plan (1) Elevated troponin: Elevated troponin most likely related to type II myocardial infarction. The EKG changes are nonspecific. Status: Acute (2) Non-ischemic cardiomyopathy: It is not clear as to how long this patient had cardiomyopathy. Most likely this is drug-induced. According to the patient, he always used opioids. Never used cocaine? Currently he does not appear to be in heart failure. However will be closely monitoring for this. We may consider doing a myocardial perfusion imaging, to evaluate for any underlying coronary ischemia Status: Acute (3) QT prolongation: The etiology is not clear. Most likely it is drug related. His rhythm needs to be closely monitored on the telemetry. Today the EKG shows sinus tachycardia with a heart rate of 116 bpm. Nonspecific IVCD. QTC is 466. Status: Acute (4) Drug overdose, intentional: Management as per the primary. Status: Acute Qualifiers: Encounter type: initial encounter Qualified Code(s): T50.902A - Poisoning by unspecified drugs, medicaments and biological substances, inte ntional self-harm, initial encounter (5) Altered mental status: Mentation is improving Status: Acute Qualifiers: Altered mental status type: coma Coma depth: [place] coma 3-8 Coma timing: at arrival to emergency department Qualified Code(s): R40.2432 - [place] coma scale score 3-8, at arrival to emergency department (6) Pulmonary embolism: Patient is on IV anticoagulant. This may be continued. Status: Acute Qualifiers: Acute cor pulmonale presence: without acute cor pulmonale Chronicity: unspecified Pulmonary embolism type: other Qualified Code(s): I26.99 - Other pulmonary embolism without acute cor pulmonale Additional A&P Information Once the blood pressure is stable, we may start him on losartan 25 mg p.o. daily and carvedilol 3.125 mg p.o. twice daily. The dose of these medications will be gradually advanced. Apparently the patient blood pressure was running low below 100. For that reason, the losartan was not given. 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
--- NOTE | 2021-02-15 14:32 | P.PN_ITS ---
Subjective Subjective: Interval history: Patient was seen this morning, he is alert to person, to place, to time, he tells me that he wants to , he tells me he thinks he took Klonopin and trazodone, declines taking doxepin, his not sure exactly how much he took, he denies any chest pain, complains of some epigastric pain Vitals/I&O/Wt Last Vital Signs Temp 97.5 F L 02/15/21 12:00 Pulse 89 02/15/21 12:00 Resp 20 H 02/15/21 12:00 BP 109/68 02/15/21 12:00 Pulse Ox 91 02/15/21 12:00 02/14/21 02/15/21 02/15/21 22:59 06:59 14:59 Intake Total 1567.667 / 4584.103 832.533 / 5416.636 1205.609 / 1205.609 Output Total 1625 / 3675 3375 / 7050 3400 / 3400 Balance -57.333 / 909.103 -2542.467 / -1633.364 -2194.391 / -2194.391 Weight last 48 hrs Weight 106.339 kg Weight 110.994 kg Physical Exam Const: COMMON NORMALS: no acute distress and patient oriented x3 Resp: COMMON NORMALS: normal respiratory effort, No retractions, No use of accessory muscles and clear to auscultation bilaterally AUSCULTATION: clear to auscultation bilaterally Cardio: COMMON NORMALS: regular rate, regular rhythm, S1 normal heart sound present and S2 normal heart sound present RATE: regular rate RHYTHM: regular rhythm HEART SOUNDS: S1 normal heart sound present and S2 normal heart sound present GI: COMMON NORMALS: Normal to inspection, nondistended, normoactive bowel sounds present, Soft to palpation and non-tender PALPATION: Yes Soft to palpation Extremity: COMMON NORMALS: no pedal edema Neuro: COMMON NORMALS: patient oriented x3 Urinary Catheter Management^: García: Cath Placed During This Visit: yes, but has since been removed by the nurse Reason for Continuing Indwelling Catheter: Decision to DC Catheter Urinary Catheter Date of Insertion: 02/13/21 Date Urinary Catheter Removed: 02/14/21 Time Urinary Catheter Discontinued: 10:54 Data : 02/15/21 02:27 02/15/21 02:27 Micro: Microbiology 02/13/21 14:45 Gram Stain - Final Sputum - Endotracheal Wash Sputum Culture - Final A&P Assessment and plan (1) Suicidal ideation: -Continues to have active suicidal ideation, no plan, tells me he wants to -Multiple hospital admissions in the past for active suicidal ideation, suicide attempt -Recent hospitalization for active suicide ideation, suicide attempt, intentional overdose, requiring ICU admission, was on pressors, critically ill -Currently actively suicidal, tells me he wants to , refusing medical care -Given his past history, it is highly likely that he is intentionally overdosed on his medications, he does admit that he overdosed on Klonopin, possible trazodone, possible early his home medication such as doxepin -In my opinion he does not have capacity to make decision as he is actively suicidal currently, and is not making informed decisions -For now we will do our best to use sedating medications such as Haldol and Ativan to control his agitation, allow for medication administration, blood draws, and appropriate medical interventions -We will weigh the risks and benefits of these medications, as they are associate with side effects, monitor respiratory discretion, QT interval, and use them sparingly -For now hold off on restraints, as he has not threatened staff, threatened me, has not had any physical violence towards anyone, no physical violence towards himself -Perform 96-hour hold- Status: Acute (2) Altered mental status: likely related to polysubstance abuse given history, Urine drug seen negative, negative salicylate and acetaminophen levels Has a history of TCA overdose, unclear if he took TCA Ethylene glycol level Has had chest pain complaints this afternoon, repeat EKG series, troponin series EKG showed QTC 449 ms, QRS 109, [place] 175, incomplete RBBB Telemetry monitoring Alternate possibilities include PE vs NSTEMI Status: Acute Qualifiers: Altered mental status type: coma Coma depth: [place] coma 3-8 Coma timing: at arrival to emergency department Qualified Code(s): R40.2432 - [place] coma scale score 3-8, at arrival to emergency department (3) Hypoxemia: related to PE, poor resp effort from low GCS Currently extubated, on 2 to 3 L, responds well to diuresis continue to monitor Status: Acute (4) Acute kidney injury: -Secondary to dehydration, rhabdomyolysis Status: Acute (5) Pulmonary embolism: CTA with right side PE Switch to Eliquis On echocardiogram as below Status: Acute Qualifiers: Acute cor pulmonale presence: without acute cor pulmonale Chronicity: unspecified Pulmonary embolism type: other Qualified Code(s): I26.99 - Other pulmonary embolism without acute cor pulmonale (6) Elevated troponin I level: cannot exclude NSTEMI at this time 6-hour troponin 70.6 6, delta 73.34 may be 2/2 PE, demand supply mismatch Switch to Eliquis Continue aspirin 81 mg echocardiogram Diffuse hypokinesis of the left ventricle with a diminished ejection fraction of 30 to 35%. Mildly dilated right ventricle with slightly diminished ejection fraction. Mildly dilated right atrium No significant valvular abnormalities. No significant pericardial effusion No similar previous studies are available for comparison Has had chest pain complaints, repeat EKG series, troponin series We will continue to monitor closely Status: Acute (7) Drug overdose, intentional: poison control notified monitor for serotonin syndrome, development of arrhythmias Status: Acute Qualifiers: Encounter type: initial encounter Qualified Code(s): T50.902A - Poisoning by unspecified drugs, medicaments and biological substances, intentional self-harm, initial encounter (8) Acute respiratory failure: -GCS 7 on admission, intubated to protect airway -Successfully extubated February 14, 2021, onto 2 to 3 L, now to 6 L -Refusing to wear oxygen, ripped off his oxygen, saturating in the low 80s -We will use sedation minimally, control agitation, replace oxygen, monitor for respiratory depression, repeat ABG -Continue Zosyn for aspiration pneumonia coverage -Currently on 2 to 3 L, symptoms have improved with diuresis, continue to diurese Status: Acute (9) Shock: -Currently off Levophed -Start p.o. midodrine -Possibly secondary to TCA -Possibly secondary to sepsis related to pneumonia -Possibly secondary to sedating medication -Possibly secondary to pulmonary emboli, NSTEMI -Continue Levophed, -Monitor closely Status: Acute (10) Suicide attempt: Status: Acute (11) QT prolongation: Status: Acute (12) Non-ischemic cardiomyopathy: Status: Acute (13) Elevated troponin: Status: Acute Additional A&P Information chest. Ua unremarkabke. No gross localizing signs of infection at this time, pending blood cx. Vaccinated for covid 19 with 2 dose mrna series (takn sep and Jan 30, 2021) Attestations Medical Necessity Statement*: Patient requires hospitalization for suicide attempt, intentional overdose,, NSTEMI, pulmonary embolism Coding Level of Care Code Acute Dean Of Faculty for [facility] Fw Diagnoses Suicidal ideation R45.851 Altered mental status R40.2432 Altered mental status type: coma Coma depth: [place] coma 3-8 Coma timing: at arrival to emergency department Hypoxemia R09.02 Acute kidney injury N17.9 Pulmonary embolism I26.99 Acute cor pulmonale presence: without acute cor pulmonale Chronicity: unspecified Pulmonary embolism type: other Elevated troponin I level R77.8 Drug overdose, intentional T50.902A Encounter type: initial encounter Acute respiratory failure J96.00 Shock R57.9 Suicide attempt T14.91XA QT prolongation R94.31 Non-ischemic cardiomyopathy I42.8 Elevated troponin R77.8
[2021-02-15] MEDS: acetaminophen 325 mg Tablet 650 MG PO (14:54)
--- NOTE | 2021-02-15 15:00 | PC.NURSE ---
Patient reports stomach pain 10/04. Vitals normal, no rebound tenderness, no distention. Nurse alerted DR ambriz of pain 10/04, waiting on new orders. Administered prn tylenol in the meantime.
[2021-02-15] MEDS: morphine 4 mg/mL SDV 1 mL 1 MG IVP ×2 (15:38→19:43)
--- NOTE | 2021-02-15 15:43 | PC.NURSE ---
Nurse received orders for morphine PRN. Patient still complains of pain 7/10 after tylenol. Nurse administered PRN morphine
--- NOTE | 2021-02-15 17:30 | ECG_ITS ---
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 Measurements Intervals [place] Rate: 84 P: 57 DE: 173 QRS: -69 QRSD: 114 T: 15 QT: 384 QTc: 456 Interpretive Statements SINUS RHYTHM LEFT AXIS DEVIATION [QRS AXIS < -30] INCOMPLETE RIGHT BUNDLE BRANCH BLOCK [90+ ms QRS DURATION, TERMINAL R IN V1/V2, 40+ ms S IN I/aVL/V4/V5/V6] Compared to ECG 02/15/2021 13:10:28 No significant changes Electronically Signed On 02-16-2021 20:07:03 STRATEGIC MANAGER by Phuc Valenzuela M.D. [id number]
--- NOTE | 2021-02-15 17:56 | PC.NURSE ---
Shift Summary: Uneventful shift. Patient rested in bed throughout the day. Was up frequently to urinate. Urine output for day shift 02/15/21 was 3950. Patient had frequent reports of severe stomach pain which was relieved by prn morphine. Had trace edema to feet at beginning of shift but it has since disappeared. Patient has been alert and oriented to person, place, time and situation throughout the shift. Was initially lethargic, but is now more energetic.
--- NOTE | 2021-02-15 19:30 | PC.NURSE ---
Pain Patient complains of abdominal pain at 7 on a 1-10 numerical scale. No distention noted, all vitals stable. Position altered and PRN morphine administered per MAY.
--- NOTE | 2021-02-15 20:19 | PC.NURSE ---
Addendum entered by Johanny Massey RN 02/15/21 20:25: Report received at 1900. Original Note: Report Bedside report received for patient. Patient alert and oriented to person, place, time, and situation. All vital signs stable. Patient states no needs at this time.
--- NOTE | 2021-02-15 20:30 | PC.NURSE ---
Hygiene Patient able to perform hygiene measures independently with nurse in room. Patient utilized bath wipes for body and brushed teeth after ambulating to sink; gown also changed. All vitals stable. Patient refused linen change.
--- NOTE | 2021-02-15 22:59 | PC.NURSE ---
SCDs Patient refused to put SCDs back on. Education regarding SCDs reinforced. Patient still refused.
[2021-02-16] VITALS (40 sets, daily range): BP systolic 97–126; BP diastolic 65–88; PULSE 76–93; RESP 11–23; TEMP 36.6–37.1; O2SAT 79–96; BMI 30.2
[2021-02-16] MEDS: morphine 4 mg/mL SDV 1 mL 1 MG IVP ×6 (00:10→20:00)
[2021-02-16] MEDS: piperacillin-tazobactam 3.375 GM in sodium chloride 0.9% (plus) 50 ML IV ×3 (01:27→17:38)
[2021-02-16 03:24] LABS: ABG PCO2 53.4 mmHg (35-45); ABG PH Result 7.39 (7.35-7.45)
[2021-02-16 03:25] LABS: Base Excess ABG 5.6 mmol/L (-2.0-2.0); Blood Gas Allen Test POS; Blood Gas Sample Type ART; HCO3 ABG 31.9 mmol/L (22-26); Oxygen Device NC; PO2 ABG 80.9 mmHg (80.0-100.0)
[2021-02-16 03:26] LABS: Arterial Blood Gas Hematocrit 37.2 % (42-52); Blood Gas Sample Site R RAD
[2021-02-16 05:04] LABS: Basophils % 0.3 %; Eosinophils # 0.4 10^3/uL (0.0-0.8); Eosinophils % 3.9 %; Hematocrit 43.9 % (42.0-52.0); Hemoglobin 14.7 g/dL (11.7-16.6); Lymphocytes # 1.6 10^3/uL (0.8-4.8); Mean Corpuscular HGB Conc 33.5 g/dL (30.0-36.0); Mean Corpuscular Hemoglobin 29.1 pg (28.0-34.0); Mean Corpuscular Volume 86.8 fl (80-94); Mean Platelet Volume 9.8 fL (7.4-10.4); Monocytes # 0.9 10^3/uL (0.2-0.9); Monocytes % 9.1 %; Neutrophils # 6.52 10^3/uL (1.8-7.7); Neutrophils % 69.5 %; Nucleated Red Blood Cells % 0 %; Platelet Count 236 10^3/cmm (130-400); Red Blood Count 5.06 10^6/uL (4.1-5.3); White Blood Count 9.4 10^3/uL (4.0-10.0)
[2021-02-16 05:15] LABS: INR 1.17 (0.8-1.2)
[2021-02-16 05:18] LABS: D Dimer 1.01 ug/mIFEU (0-0.59)
[2021-02-16 05:20] LABS: Ammonia 31 umol/L (16-60); Lactate (Lactic Acid level) 0.9 mmol/L (0.5-2.2)
[2021-02-16 05:39] LABS: NT Pro B Type Natriuretic Pept 200 pg/mL (0-125)
[2021-02-16 05:51] LABS: Alanine Aminotransferase 40 U/L (0-41); Alkaline Phosphatase 76 IU/L (40-130); Anion Gap 18.6 (5-19); Aspartate Amino Transferase 52 U/L (0-40); Blood Urea Nitrogen 8 mg/dL (6-20); C Reactive Protein 93.6 mg/L (0.0-4.9); Calcium 9.5 mg/dL (8.5-10.5); Carbon Dioxide 29 mmol/L (22-29); Chloride 90 mmol/L (98-107); Globulin 3.4 g/dL (1.3-4.6); Glomerular Filtration Rate 109.4 mL/min (90-130); Glucose 99 mg/dL (65-115); Magnesium 1.7 mg/dL (1.7-2.3); Osmolality Calculated 276 mOsm/kg (285-295); Phosphorus 3.9 mg/dL (2.5-4.5); Potassium 3.6 mmol/L (3.5-5.1); Sodium 134 mmol/L (136-145); Total Bilirubin 0.7 mg/dL (0.15-1.2); Total Protein 7.4 g/dL (6.6-8.7)
[2021-02-16 05:54] LABS: Creatine Phosphokinase 1143 U/L (39-308)
--- NOTE | 2021-02-16 06:33 | PC.NURSE ---
Shift Note Frequent safety and comfort rounds continue. Orders and/or nursing care completed as indicated. Patient monitored for response to intervention and treatment(s). Education provided includes oxygen saturation goals, purpose of SCDs, pain management/timing of pain medication, and strength of antibiotic doses. Overall shift was uneventful; patient did refuse SCDs but cooperated with all other aspects of treatment. Wearing 3L NC, patient's oxygen saturation remained low-mid 90s, while on roomair it ranged anywhere from 86-94%. Patient complained of abdominal pain several times, assessments were made: no distention found and bowel sounds present. Pain treated with PRN morphine per MAY. Patient and/or patient intake representative verbalized understanding to all education. Will continue to monitor.
--- NOTE | 2021-02-16 07:51 | PC.NURSE ---
awakened pt. for breakfast. denies suicidal ideations at this time, refused breakfast at this time
[2021-02-16] MEDS: aspirin 81 mg Chew Tablet PO (08:25)
[2021-02-16] MEDS: phosphorus 250 mg Tablet PO (08:25)
[2021-02-16] MEDS: sodium bicarbonate 650 mg Tablet PO (08:25)
[2021-02-16] MEDS: spironolactone 25 mg Tablet PO (08:25)
[2021-02-16] MEDS: pantoprazole 40 mg SDV IVP (08:25)
[2021-02-16] MEDS: losartan 50 mg Tablet 25 MG PO (08:26)
[2021-02-16] MEDS: apixaban 5 mg Tablet 10 MG PO ×2 (08:26→20:13)
--- NOTE | 2021-02-16 08:47 | PC.NURSE ---
dr. newton in this am. stated to hold midorine and see how b/p did when giving losartin 25 mg.
--- NOTE | 2021-02-16 08:49 | PC.NURSE ---
asked for m.s. states abd. pain.
--- NOTE | 2021-02-16 08:51 | PC.NURSE ---
dr. newton discussed stress test with pt. leonidas scan.
--- NOTE | 2021-02-16 09:19 | PC.CHAP ---
Pastoral Care Encounter/Spiritual Assessment Type of Contact [] Declined nuclear medicine medical director visit [] Patient/Family/Request visit [] Outpatient visit [] Follow-up visit [] Physician referral [] Code/Alert [x] Routine visit [] Staff referral [] Actively dying [] Patient sleeping [] Family support [] [] Out of room [] Palliative care [] [] Receiving care in room [] Pre-surgical visit [] Trauma [] Long length of stay [x] ICU visit [] Other: Relational/Emotional Strength [] Patient feels connected with others/family/visitors/staff [] Distress [] Loneliness/isolation [] Abandonment Spirituality of Patient [] Person of Janneth [] Attends Baptism of their Janneth [] Believes in Prayer [] Reads Bible or Islam materials [] There are 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] Prayer [] Active listening [] Non-anxious presence [] Spiritual/emotional support [] Crisis/trauma care [] Spiritual counseling [] Bereavement support [] Provided bereavement packet [] Provided Bible/devotional materials [] Provided toy/stuffed animal, coloring book to patient or family member [] Provided Communion [] Anointing/[place] [] Salvation [x] Completed spiritual assessment [] Other: Impact on Illness or Injury [] Angry [] Fearful [] Anxious [] Often cries [] Exhaustion [] Unable to work [] Unable to attend synagogue [] Unable to walk/stand [] Unable to read [] Unable to drive [] Unable to eat/drink [] Unable to sleep [] Unable to be with family [] Patient intubated [] Other: Summary patient very antisocial ..prayed outside his room.. wasnt interested in food, conversation.. etc Time spent with patient
--- NOTE | 2021-02-16 10:45 | PC.NURSE ---
ask if i would call uncle to tell him that he misses him.
--- NOTE | 2021-02-16 10:47 | PC.NURSE ---
ask if i would call uncle and tell him that he misses him, after discussion with staff that was not done. explained that he could do that when he gets to [facility].
--- NOTE | 2021-02-16 11:23 | PC.SOCIAL ---
IMM Update pg 2 of IMM updated and reviewed w/ patient. Copy provided. Copy placed in chart.
[2021-02-16] MEDS: vancomycin 1,500 MG/300 ML PIGGYBACK 200 MG IV (12:55)
--- NOTE | 2021-02-16 14:01 | PC.NURSE ---
concerned when he is going to [facility]. states he doesnt need to be here anymore
--- NOTE | 2021-02-16 16:00 | P.PN_ITS ---
Subjective Subjective: Interval history: Patient was seen and examined this morning, denies any suicidal ideation, no acute events overnight. His other vitals and labs have been reviewed. Medications: Reviewed: Yes Medication Review Details: Current Medications Acetaminophen (Acetaminophen 325 Mg Tablet) 650 mg PO Q6H PRN PRN Reason: Mild/Mod Pain Or Temp >/= 101 Last Admin: 02/13/21 19:46 Dose: 650 mg Documented by: Apixaban (Apixaban 5 Mg Tablet) 10 mg PO BID@0900,2100 [facility] Last Admin: 02/15/21 09:18 Dose: 10 mg Documented by: Aspirin (Aspirin 81 Mg Chew Tablet) 81 mg PO DAILY [facility] Last Admin: 02/15/21 08:23 Dose: 81 mg Documented by: Bisacodyl (Bisacodyl 5 Mg Tablet) 10 mg PO DAILY PRN PRN Reason: Constipation (see protocol) Haloperidol Lactate (Haloperidol Inj 5 Mg/Ml Inj 1 Ml) 1 mg IM Q4H PRN PRN Reason: AGITATION Last Admin: 02/15/21 00:09 Dose: 1 mg Documented by: Fentanyl 1,000 mcg/ Sodium (Chloride) 100 mls @ 0 mls/hr IV .Q0M [facility]; Protocol Last Titration: 02/14/21 09:59 Dose: Infused Documented by: Norepinephrine Bitartrate 4 mg (/ Dextrose) 254 mls @ 0 mls/hr IV .Q0M [facility]; Protocol Last Titration: 02/14/21 03:12 Dose: Infused Documented by: Vancomycin/PEG/NADA/Lysine/Water (Vancocin) 1,500 mg in 300 mls @ 200 mls/hr IV Q12H [facility] Last Admin: 02/15/21 12:00 Dose: Not Given Documented by: Piperacillin Sod/Tazobactam (Sod 3.375 gm/ Sodium Chloride) 50 mls @ 12.5 mls/hr IV Q8H [facility] Last Admin: 02/15/21 08:11 Dose: 12.5 mls/hr Documented by: Losartan Potassium (Losartan 50 Mg Tablet) 25 mg PO DAILY [facility] Last Admin: 02/15/21 08:24 Dose: Not Given Documented by: Midodrine (Midodrine 5 Mg Tablet) 5 mg PO TID [facility] Last Admin: 02/15/21 08:23 Dose: 5 mg Documented by: Ondansetron HCl (Ondansetron 2 Mg/Ml Sdv 2 Ml) 4 mg IVP Q8H PRN PRN Reason: vomiting, or N/V if npo Last Admin: 02/15/21 13:02 Dose: 4 mg Documented by: Pantoprazole Sodium (Pantoprazole 40 Mg Sdv) 40 mg IVP DAILY [facility] Last Admin: 02/15/21 08:23 Dose: 40 mg Documented by: Potassium Phosphate (Phosphorus 250 Mg Tablet) 250 mg PO BID [facility] Last Admin: 02/15/21 08:24 Dose: 250 mg Documented by: Simethicone (Simethicone 40 Mg/0.6 Ml Bottle 30ml) 40 mg PO QID PRN PRN Reason: FLATULENCE Last Admin: 02/15/21 13:02 Dose: 0.6 ml Documented by: Sodium Bicarbonate (Sodium Bicarbonate 650 Mg Tablet) 650 mg PO TID [facility] Last Admin: 02/15/21 08:23 Dose: 650 mg Documented by: Spironolactone (Spironolactone 25 Mg Tablet) 25 mg PO DAILY [facility] Last Admin: 02/15/21 11:59 Dose: 25 mg Documented by: Vitals/I&O/Wt Last Vital Signs Temp 98.8 F 02/16/21 10:44 Pulse 85 02/16/21 14:00 Resp 13 02/16/21 14:00 BP 97/71 02/16/21 14:00 Pulse Ox 90 02/16/21 14:00 02/16/21 02/16/21 02/16/21 06:59 14:59 22:59 Intake Total 681 / 1936.609 840 / 840 Output Total 400 / 4575 400 / 400 Balance 281 / -2638.391 440 / 440 Weight last 48 hrs Weight 98.475 kg Weight 106.339 kg Physical Exam Const: COMMON NORMALS: patient oriented x3 HENMT: COMMON NORMALS: normocephalic and atraumatic HEAD & SCALP: normocephalic and atraumatic Chest: CHEST: Yes Symmetrical chest wall rise Resp: COMMON NORMALS: clear to auscultation bilaterally EFFORT & INSPECTION: Yes symmetric chest movement AUSCULTATION: clear to auscultation bilaterally Cardio: COMMON NORMALS: regular rate, regular rhythm, S1 normal heart sound present, S2 normal heart sound present, No gallops present (Cardio), No murmurs present (Cardio), No rub (Cardio) and Peripheral pulses 2+ throughout RATE: regular rate RHYTHM: regular rhythm HEART SOUNDS: S1 normal heart sound present and S2 normal heart sound present PERIPHERAL PULSES: Peripheral pulses 2+ throughout GI: COMMON NORMALS: Normal to inspection, nondistended, normoactive bowel sounds present, Soft to palpation, non-tender, No hepatosplenomegaly present and no masses AUSCULTATION: Yes normoactive bowel sounds PALPATION: Yes Soft to palpation and Yes No hepatosplenomegaly present RECTAL EXAM: Yes deferred Extremity: COMMON NORMALS: no clubbing, cyanosis or edema and no pedal edema Neuro: COMMON NORMALS: patient oriented x3 Urinary Catheter Management^: García: Cath Placed During This Visit: yes, but has since been removed by the nurse Reason for Continuing Indwelling Catheter: Decision to DC Catheter Urinary Catheter Date of Insertion: 02/13/21 Date Urinary Catheter Removed: 02/14/21 Time Urinary Catheter Discontinued: 10:54 Data : 02/16/21 04:44 02/16/21 04:44 A&P Assessment and plan (1) Suicidal ideation: -Continues to have active suicidal ideation, no plan, tells me he wants to -Multiple hospital admissions in the past for active suicidal ideation, suicide attempt -Recent hospitalization for active suicide ideation, suicide attempt, intentional overdose, requiring ICU admission, was on pressors, critically ill -Currently actively suicidal, tells me he wants to , refusing medical care -Given his past history, it is highly likely that he is intentionally overdosed on his medications, he does admit that he overdosed on Klonopin, possible trazodone, possible early his home medication such as doxepin -In my opinion he does not have capacity to make decision as he is actively suicidal currently, and is not making informed decisions -For now we will do our best to use sedating medications such as Haldol and Ativan to control his agitation, allow for medication administration, blood draws, and appropriate medical interventions -We will weigh the risks and benefits of these medications, as they are associate with side effects, monitor respiratory discretion, QT interval, and use them sparingly -For now hold off on restraints, as he has not threatened staff, threatened me, has not had any physical violence towards anyone, no physical violence towards himself -Perform 96-hour hold- Status: Acute (2) Altered mental status: likely related to polysubstance abuse given history, Urine drug seen negative, negative salicylate and acetaminophen levels Has a history of TCA overdose, unclear if he took TCA Ethylene glycol level Has had chest pain complaints this afternoon, repeat EKG series, troponin series EKG showed QTC 449 ms, QRS 109, UT 175, incomplete RBBB Telemetry monitoring Alternate possibilities include PE vs NSTEMI Status: Acute Qualifiers: Altered mental status type: coma Coma depth: Ryan coma 3-8 Coma timing: at arrival to emergency department Qualified Code(s): R40.2432 - [place] coma scale score 3-8, at arrival to emergency department (3) Hypoxemia: related to PE, poor resp effort from low GCS Currently extubated, on 2 to 3 L, responds well to diuresis continue to monitor Status: Acute (4) Acute kidney injury: -Secondary to dehydration, rhabdomyolysis Status: Acute (5) Pulmonary embolism: CTA with right side PE Switch to Eliquis On echocardiogram as below Status: Acute Qualifiers: Acute cor pulmonale presence: without acute cor pulmonale Chronicity: unspecified Pulmonary embolism type: other Qualified Code(s): I26.99 - Other pulmonary embolism without acute cor pulmonale (6) Elevated troponin I level: cannot exclude NSTEMI at this time 6-hour troponin 70.6 6, delta 73.34 may be 2/2 PE, demand supply mismatch Switch to Eliquis Continue aspirin 81 mg echocardiogram Diffuse hypokinesis of the left ventricle with a diminished ejection fraction of 30 to 35%. Mildly dilated right ventricle with slightly diminished ejection fraction. Mildly dilated right atrium No significant valvular abnormalities. No significant pericardial effusion No similar previous studies are available for comparison. Stress test: Continue aspirin, spironolactone, losartan. Has had chest pain complaints, repeat EKG series, troponin series We will continue to monitor closely Status: Acute (7) Drug overdose, intentional: poison control notified monitor for serotonin syndrome, development of arrhythmias Status: Acute Qualifiers: Encounter type: initial encounter Qualified Code(s): T50.902A - Poisoning by unspecified drugs, medicaments and biological substances, intentional self-harm, initial encounter (8) Acute respiratory failure: -GCS 7 on admission, intubated to protect airway -Successfully extubated February 14, 2021, onto 2 to 3 L, now to 6 L -Refusing to wear oxygen, ripped off his oxygen, saturating in the low 80s -We will use sedation minimally, control agitation, replace oxygen, monitor for respiratory depression, repeat ABG -Continue Zosyn for aspiration pneumonia coverage -Currently on 2 to 3 L, symptoms have improved with diuresis, continue to diurese Status: Acute (9) Shock: -Currently off Levophed -Start p.o. midodrine -Possibly secondary to TCA -Possibly secondary to sepsis related to pneumonia -Possibly secondary to sedating medication -Possibly secondary to pulmonary emboli, NSTEMI -Continue Levophed, -Monitor closely Status: Acute (10) Suicide attempt: Status: Acute (11) QT prolongation: Status: Acute (12) Non-ischemic cardiomyopathy: Status: Acute (13) Elevated troponin: Status: Acute Additional A&P Information chest. Ua unremarkabke. No gross localizing signs of infection at this time, pen ding blood cx. Vaccinated for covid 19 with 2 dose mrna series (takn nov and Jan 30, 2021) Attestations Medical Necessity Statement*: Patient needs to be in hospital for management of above defined problems. 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 Diagnoses Suicidal ideation R45.851 Altered mental status R40.2432 Altered mental status type: coma Coma depth: Ryan coma 3-8 Coma timing: at arrival to emergency department Hypoxemia R09.02 Acute kidney injury N17.9 Pulmonary embolism I26.99 Acute cor pulmonale presence: without acute cor pulmonale Chronicity: unspecified Pulmonary embolism type: other Elevated troponin I level R77.8 Drug overdose, intentional T50.902A Encounter type: initial encounter Acute respiratory failure J96.00 Shock R57.9 Suicide attempt T14.91XA QT prolongation R94.31 Non-ischemic cardiomyopathy I42.8 Elevated troponin R77.8
--- NOTE | 2021-02-16 16:17 | PC.NURSE ---
pt. requesting suboxone that he claims he took before he came in. states he is having withdrawals. some fine tremors noted. nods yes when asked if he was halucinating. also nods yes to voices telling hime to kill himself.
--- NOTE | 2021-02-16 16:30 | PC.NURSE ---
explained that we were unable to find where he had his suboxen filled. he states it was in [place], [place] 2-3 mo. ago. refusing antibiotics, since he cant have the suboxen. states if they dont want to help me with withdrawals i dont want to do anything
--- NOTE | 2021-02-16 17:34 | P.PN_ITS ---
Subjective Subjective: Interval history: The patient is still on one-to-one nursing care. He seems to be very withdrawn. Answers to the questions mostly by yes or no. Vitals seems to be stable. Medications: Reviewed: Yes Medication Review Details: Current Medications Acetaminophen (Acetaminophen 325 Mg Tablet) 650 mg PO Q6H PRN PRN Reason: Mild/Mod Pain Or Temp >/= 101 Last Admin: 02/15/21 14:54 Dose: 650 mg Documented by: Apixaban (Apixaban 5 Mg Tablet) 10 mg PO BID@0900,2100 [facility] Last Admin: 02/16/21 08:26 Dose: 10 mg Documented by: Aspirin (Aspirin 81 Mg Chew Tablet) 81 mg PO DAILY [facility] Last Admin: 02/16/21 08:25 Dose: 81 mg Documented by: Bisacodyl (Bisacodyl 5 Mg Tablet) 10 mg PO DAILY PRN PRN Reason: Constipation (see protocol) Haloperidol Lactate (Haloperidol Inj 5 Mg/Ml Inj 1 Ml) 1 mg IM Q4H PRN PRN Reason: AGITATION Last Admin: 02/15/21 00:09 Dose: 1 mg Documented by: Fentanyl 1,000 mcg/ Sodium (Chloride) 100 mls @ 0 mls/hr IV .Q0M [facility]; Protocol Last Titration: 02/14/21 09:59 Dose: Infused Documented by: Norepinephrine Bitartrate 4 mg (/ Dextrose) 254 mls @ 0 mls/hr IV .Q0M [facility]; Protocol Last Titration: 02/14/21 03:12 Dose: Infused Documented by: Piperacillin Sod/Tazobactam (Sod 3.375 gm/ Sodium Chloride) 50 mls @ 12.5 mls/hr IV Q8H [facility] Last Infusion: 02/16/21 15:59 Dose: Infused Documented by: Losartan Potassium (Losartan 50 Mg Tablet) 25 mg PO DAILY [facility] Last Admin: 02/16/21 08:26 Dose: 25 mg Documented by: Morphine Sulfate (Morphine 4 Mg/Ml Sdv 1 Ml) 1 mg IVP Q4H PRN PRN Reason: SEVERE PAIN Last Admin: 02/16/21 16:00 Dose: 1 mg Documented by: Ondansetron HCl (Ondansetron 2 Mg/Ml Sdv 2 Ml) 4 mg IVP Q8H PRN PRN Reason: vomiting, or N/V if npo Last Admin: 02/15/21 13:02 Dose: 4 mg Documented by: Pantoprazole Sodium (Pantoprazole 40 Mg Sdv) 40 mg IVP DAILY [facility] Last Admin: 02/16/21 08:25 Dose: 40 mg Documented by: Simethicone (Simethicone 40 Mg/0.6 Ml Bottle 30ml) 40 mg PO QID PRN PRN Reason: FLATULENCE Last Admin: 02/15/21 13:02 Dose: 0.6 ml Documented by: Spironolactone (Spironolactone 25 Mg Tablet) 25 mg PO DAILY [facility] Last Admin: 02/16/21 08:25 Dose: 25 mg Documented by: Vitals/I&O/Wt Last Vital Signs Temp 98.8 F 02/16/21 10:44 Pulse 85 02/16/21 14:00 Resp 20 H 02/16/21 16:00 BP 97/71 02/16/21 14:00 Pulse Ox 90 02/16/21 14:00 02/16/21 02/16/21 02/16/21 06:59 14:59 22:59 Intake Total 681 / 9728.441 5045 / 1140 50 / 1190 Output Total 400 / 4575 400 / 400 Balance 281 / -2638.391 740 / 740 50 / 790 Weight last 48 hrs Weight 217 lb 1.6 oz Weight 234 lb 7 oz Physical Exam Narrative: EXAM NARRATIVE: GENERAL: The patient is extubated. HEENT: No significant pallor, icterus or lymphadenopathy.Oral cavity: There are no mucous membrane lesions. NECK: Trachea appears to be central. No masses noted. No JVD or thyromegaly appreciated. RESPIRATORY: Chest is symmetrical. No intercostals muscle retraction or any accessory muscle activation. There is no chest wall tenderness. Breath sounds are heard bilaterally. No rales or rhonchi heard. No evidence of any consolidation. BREASTS: Deferred. HEART: The heart sounds are normal. No S3 or S4. No significant murmurs. No pericardial rub ABDOMEN: No vessel pulsations or distention. No tenderness. No organomegaly appreciated. Bowel sounds are normally heard. : Deferred. RECTAL: Deferred. LYMPHATIC: No lymphadenopathy noted in the neck or groin. EXTREMITIES: Trace edema with no cyanosis. Peripheral pulses are felt fairly good volume and amplitude. MUSCULOSKELETAL: No acute joint deformities or swelling SKIN: There are no significant rashes or ecchymosis NEUROPSYCHIATRIC: Patient is intubated and sedated. Urinary Catheter Management^: García: Cath Placed During This Visit: yes, but has since been removed by the nurse Reason for Continuing Indwelling Catheter: Decision to DC Catheter Urinary Catheter Date of Insertion: 02/13/21 Date Urinary Catheter Removed: 02/14/21 Time Urinary Catheter Discontinued: 10:54 Data : 02/16/21 04:44 02/16/21 04:44 A&P Assessment and plan (1) Elevated troponin: Elevated troponin most likely related to type II myocardial infarction. The EKG changes are nonspecific. Status: Acute (2) Non-ischemic cardiomyopathy: Patient currently seems to be stable. No evidence of any cardiac decompensation. It may be appropriate to do a myocardial perfusion imaging at this point. Patient's mental status is a concern. If he can give the consent, we may go ahead and schedule for a Lexiscan/sestamibi/sestamibi stress test tomorrow. Dr. Knapp will let me know Status: Acute (3) QT prolongation: Currently the QTC is 456. Likely it was medication induced. Status: Acute (4) Drug overdose, intentional: Management as per the primary. Status: Acute Qualifiers: Encounter type: initial encounter Qualified Code(s): T50.902A - Poi soning by unspecified drugs, medicaments and biological substances, intentional self-harm, initial encounter (5) Altered mental status: Mentation is improving Status: Acute Qualifiers: Altered mental status type: coma Coma depth: Ryan coma 3-8 Coma timing: at arrival to emergency department Qualified Code(s): R40.2432 - [place] coma scale score 3-8, at arrival to emergency department (6) Pulmonary embolism: Patient is on IV anticoagulant. This may be continued. Status: Acute Qualifiers: Acute cor pulmonale presence: without acute cor pulmonale Chronicity: unspecified Pulmonary embolism type: other Qualified Code(s): I26.99 - Other pulmonary embolism without acute cor pulmonale Additional A&P Information Patient may be started on losartan 25 mg p.o. daily, if the blood pressure can tolerate. The patient also may benefit from Entresto. Based on his clinical progress, further management decisions will be made. 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
--- NOTE | 2021-02-16 17:57 | PC.NURSE ---
convinced pt. to take antibiotic iv. dinner in
--- NOTE | 2021-02-16 18:06 | PC.NURSE ---
1:1 sitter documentation on paper.
[2021-02-16] MEDS: ondansetron 2 mg/ML SDV 2 mL 4 MG IVP (19:16)
--- NOTE | 2021-02-16 19:29 | ECG_ITS ---
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 Measurements Intervals [facility] Rate: 92 P: 56 SD: 160 QRS: 267 QRSD: 105 T: 20 QT: 361 QTc: 449 Interpretive Statements SINUS RHYTHM PATTERN CONSISTENT WITH PULMONARY DISEASE RIGHT VENTRICULAR HYPERTROPHY [SOME/ALL OF: PROMINENT R IN V1, LATE TRANSITION, RAD, MCKENNA, SSS] Compared to ECG 02/15/2021 17:39:45 Atrial abnormality now present Right ventricular hypertrophy now present Left-axis deviation no longer present Incomplete right bundle-branch block no longer present Electronically Signed On 02-16-2021 20:06:55 SURGICAL SCRUB TECHNOLOGIST by Phuc Valenzuela M.D. [email or web address]
--- NOTE | 2021-02-16 19:30 | PC.NURSE ---
Addendum entered by Johanny Massey RN 02/16/21 21:17: First ECG was completed and no ST abnormalities noted. Dr. Huynh notified of results. Troponin baseline 19, lower than previous days results. Original Note: Chest Pain Upon shift assessment, patient complains of nausea in addition to chest pain radiating to left shoulder. Described as a sharp pain, patient also rated it as an 8 on a numerical 1-10 scale. Patient skin diaphoretic while all vital signs are stable. Dr. Huynh notified and orders received for STAT troponin series and ECG with followup ECGs. Previously ordered stress test to be scheduled for tomorrow. Morphine and Zofran administered per MAY.
[2021-02-16] MEDS: acetaminophen 325 mg Tablet 650 MG PO (20:34)
--- NOTE | 2021-02-16 20:35 | PC.NURSE ---
Continuing Pain Patient called nurse into room and stated pain in chest and abdomen not abating, rates pain at a 6 on a 1-10 scale. Patient crying and moving arms around chest. Warm blankets offered, position change offered, ice pack offered, food and drink offered; all offers refused. Education provided on Dr. Huynh's orders, significance of troponin level, ECG findings, and scheduled stress test tomorrow. Tylenol administered per MAY. All vital signs stable.
[2021-02-16 20:59] LABS: Troponin(5th) Baseline 19 ng/L (0-15)
--- NOTE | 2021-02-16 21:04 | PC.NURSE ---
Pain reassessed Pain reassessed by nurse, patient still rates it a 6 on a 1-10 scale. Patient calm, alert, all vitals stable. Warm blanket with drink offered and received.
--- NOTE | 2021-02-16 21:29 | ECG_ITS ---
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 Measurements Intervals [place] Rate: 86 P: 52 W[place]: 159 QRS: -66 QRSD: 99 T: 37 QT: 264 QTc: 316 Interpretive Statements SINUS RHYTHM LEFT AXIS DEVIATION [QRS AXIS < -30] PATTERN CONSISTENT WITH PULMONARY DISEASE Compared to ECG 02/16/2021 19:09:10 Left-axis deviation now present Right ventricular hypertrophy no longer present Atrial abnormality no longer present Electronically Signed On 02-18-2021 17:48:39 PETROLEUM PLANT OPERATOR by Maynor Huynh M.D. [id number]
[2021-02-16 23:07] LABS: Troponin 5 2HR 20.79 ng/L (0-15); Troponin 5 2HR Delta 1.79 ABS# (0-10)
[2021-02-17] VITALS (32 sets, daily range): BP systolic 90–121; BP diastolic 53–79; PULSE 78–109; RESP 14–27; TEMP 36.5–37; O2SAT 91–96; BMI 30.1
[2021-02-17] MEDS: morphine 4 mg/mL SDV 1 mL 1 MG IVP ×3 (00:13→09:53)
[2021-02-17] MEDS: piperacillin-tazobactam 3.375 GM in sodium chloride 0.9% (plus) 50 ML IV ×3 (00:20→16:25)
--- NOTE | 2021-02-17 01:29 | ECG_ITS ---
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 Measurements Intervals [place] Rate: 87 P: 45 [place]: 149 QRS: -73 QRSD: 98 T: 35 QT: 368 QTc: 443 Interpretive Statements SINUS RHYTHM LEFT AXIS DEVIATION [QRS AXIS < -30] PATTERN CONSISTENT WITH PULMONARY DISEASE Compared to ECG 02/16/2021 22:06:01 No significant changes Electronically Signed On 02-18-2021 17:46:51 ANODE ADJUSTER by Maynor Huynh M.D. [email or web address].[email or web address]/store/[id number]
[2021-02-17 03:40] LABS: Basophils % 0.4 %; Eosinophils # 0.5 10^3/uL (0.0-0.8); Eosinophils % 6.2 %; Hematocrit 47.4 % (42.0-52.0); Hemoglobin 15.7 g/dL (11.7-16.6); Lymphocytes # 2.1 10^3/uL (0.8-4.8); Lymphocytes % 25.3 %; Mean Corpuscular HGB Conc 33.1 g/dL (30.0-36.0); Mean Corpuscular Hemoglobin 28.9 pg (28.0-34.0); Mean Corpuscular Volume 87.3 fl (80-94); Mean Platelet Volume 10.1 fL (7.4-10.4); Monocytes # 0.8 10^3/uL (0.2-0.9); Monocytes % 9.9 %; Neutrophils # 4.81 10^3/uL (1.8-7.7); Nucleated Red Blood Cells % 0 %; Platelet Count 263 10^3/cmm (130-400); Red Blood Count 5.43 10^6/uL (4.1-5.3); Red Cell Distribution Width 12.9 % (12.1-15.1); White Blood Count 8.3 10^3/uL (4.0-10.0)
[2021-02-17 04:18] LABS: Alanine Aminotransferase 32 U/L (0-41); Albumin Level 4.1 g/dL (3.5-5.2); Alkaline Phosphatase 72 IU/L (40-130); Blood Urea Nitrogen 13 mg/dL (6-20); Calcium 9.2 mg/dL (8.5-10.5); Carbon Dioxide 27 mmol/L (22-29); Chloride 94 mmol/L (98-107); Globulin 3.3 g/dL (1.3-4.6); Glomerular Filtration Rate 95.5 mL/min (90-130); Glucose 108 mg/dL (65-115); NT Pro B Type Natriuretic Pept 30 pg/mL (0-125); Osmolality Calculated 281 mOsm/kg (285-295); Sodium 135 mmol/L (136-145); Total Bilirubin 0.5 mg/dL (0.15-1.2); Total Protein 7.4 g/dL (6.6-8.7)
[2021-02-17 04:21] LABS: Anion Gap 17.8 (5-19); Potassium 3.8 mmol/L (3.5-5.1)
[2021-02-17 04:22] LABS: Aspartate Amino Transferase 35 U/L (0-40)
[2021-02-17 04:40] LABS: Troponin 5 6HR 17.47 ng/L (0-15)
[2021-02-17 04:42] LABS: Ethylene Glycol <10.0 mg/L (***)
[2021-02-17 04:42] LABS: Troponin 5 6HR Delta -1.53 ng/L (0-12)
--- NOTE | 2021-02-17 06:56 | PC.NURSE ---
REport received, assessment completed. AAOx4. Pt answers questions appropriately. Denies any issues at this time. VSS. Pt received IV contrast meds just prior to my arrival, hydrating pt per orders at this time. Pt lying in bed. Will monitor.
--- NOTE | 2021-02-17 07:00 | ECG_ITS ---
[facility] Test Date: 2021-02-17 Pat Name: Shayan Dickson Department: Room: ICU02 Gender: Male Director Of Officiating: : 1985 Requested By: Phuc Valenzuela Order Number: [id number] Krzysztof MD: Phuc Valenzuela M.D. Interpretive Statements NAME OF STUDY: LEXISCAN SESTAMIBI STRESS TEST INDICATION: Abnormal EKG, PROCEDURE: At the baseline, the EKG revealed normal sinus rhythm with a poor R wave progression. Nonspecific T wave changes. Possible right atrial enlargement. Left axis deviation. The baseline blood pressure was 121/77 mm Hg with a heart rate of 93 beats/min. Lexiscan was infused over a period of 20 seconds. A total of 0.4 milligrams of Lexiscan was infused. The stress phase was continued for a total of 5 minutes. Heart rate at the end of the stress phase was 108 with a blood pressure 97/74. The EKG at the peak infusion revealed no significant changes. Sestamibi was injected 20 seconds after the Lexiscan infusion. Blood pressure at the end of the recovery phase was 102/73 with a heart rate of 107 per minute. CONCLUSION: 1. No significant EKG changes with the LexiScan infusion 2. No LexiScan induced chest pain or cardiac arrhythmia 3. Normal blood pressure and heart rate response 4. Sestamibi/sestamibi perfusion scan pending; see separate report. Electronically Signed On 02-27-2021 10:20:24 SHEET HEATER by Phuc Valenzuela M.D. [id number]
--- NOTE | 2021-02-17 08:07 | PC.NURSE ---
0705 Pt to rojelio with staff and sitter.
[2021-02-17] MEDS: regadenoson 0.4 Mg/5 ml Syringe IVP (08:45)
--- NOTE | 2021-02-17 09:10 | PM.PN ---
Subjective Subjective: Interval history: Patient is doing well. Has on and off atypical chest pain symptoms. Getting stress test today. Vitals/I&O/Wt Last Vital Signs Temp 98.5 F 02/17/21 04:00 Pulse 109 H 02/17/21 09:03 Resp 17 02/17/21 06:00 BP 102/53 02/17/21 09:03 Pulse Ox 91 02/17/21 06:00 02/16/21 02/17/21 02/17/21 22:59 06:59 14:59 Intake Total 816 / 1956 2005 Output Total 350 / 750 300 / 1050 Balance 466 / 1206 -250 / 956 Weight last 48 hrs Weight 216 lb Weight 217 lb 1.6 oz Physical Exam Narrative: EXAM NARRATIVE: GENERAL: Patient is alert, awake and oriented x3. [] NECK: No jugular vein distension. [] HEENT: No cyanosis. No icterus. No pallor. [] HEART: Regular S1 and S2. No murmur, rub or gallop. [] LUNGS: Clear to auscultate bilaterally. [] ABDOMEN: Soft, nontender and nondistended. Positive bowel sounds. No guarding, rebound or tenderness. [] CENTRAL NERVOUS SYSTEM: Grossly nonfocal. [] EXTREMITIES: Lower extremities with 1+ edema bilaterally. Pulses palpable in the lower extremities, both dorsalis pedis and posterior tibial. [] Urinary Catheter Management^: García: Cath Placed During This Visit: yes, but has since been removed by the nurse Reason for Continuing Indwelling Catheter: Decision to DC Catheter Urinary Catheter Date of Insertion: 02/13/21 Date Urinary Catheter Removed: 02/14/21 Time Urinary Catheter Discontinued: 10:54 Data : 02/17/21 03:19 02/17/21 03:19 A&P Assessment and plan (1) Elevated troponin: Troponin elevation was likely secondary to type II NV. Status: Acute (2) Non-ischemic cardiomyopathy: Patient is going for a nuclear stress test today. We will follow on the result. Likely nonischemic cardiomyopathy. Has been started on losartan. Will add Coreg Status: Acute (3) QT prolongation: Currently the QTC is 456. Likely it was medication induced. Status: Acute (4) Drug overdose, intentional: Management as per the primary. Status: Acute Qualifiers: Encounter type: initial encounter Qualified Code(s): T50.902A - Poisoning by unspecified drugs, medicaments and biological substances, intentional self-harm, initial encounter (5) Altered mental status: Mentation has improved Status: Acute Qualifiers: Altered mental status type: coma Coma depth: [place] coma 3-8 Coma timing: at arrival to emergency department Qualified Code(s): R40.2432 - Ryan coma scale score 3-8, at arrival to emergency department (6) Pulmonary embolism: Patient is on anticoagulation Status: Acute Qualifiers: Acute cor pulmonale presence: without acute cor pulmonale Chronicity: unspecified Pulmonary embolism type: other Qualified Code(s): I26.99 - Other pulmonary embolism without acute cor pulmonale Attestations Medical Necessity Statement*: Care expected to cross 2 midnights. Coding Level of Care Code Acute Breaker Unit Assembler for [facility] Fwd Diagnoses Elevated troponin R77.8 Non-ischemic cardiomyopathy I42.8 QT prolongation R94.31 Drug overdose, intentional T50.902A Encounter type: initial encounter Altered mental status R40.2432 Altered mental status type: coma Coma depth: [place] coma 3-8 Coma timing: at arrival to emergency department Pulmonary embolism I26.99 Acute cor pulmonale presence: without acute cor pulmonale Chronicity: unspecified Pulmonary embolism type: other
[2021-02-17] MEDS: losartan 50 mg Tablet 25 MG PO (09:53)
[2021-02-17] MEDS: pantoprazole 40 mg SDV IVP (09:53)
[2021-02-17] MEDS: aspirin 81 mg Chew Tablet PO (09:53)
[2021-02-17] MEDS: spironolactone 25 mg Tablet PO (09:54)
[2021-02-17] MEDS: apixaban 5 mg Tablet 10 MG PO ×2 (09:55→20:57)
--- NOTE | 2021-02-17 10:05 | PC.NURSE ---
Pt back from stress test at 0945. Pt states that he got nauseous during test, does not want breakfast. Requests pain med. Morphine 1mg IVP given per order. No other issues noted. Encouraged to hydrate. Sitter at bedside.
[2021-02-17] MEDS: oxyCODONE-APAP 5-325 mg Tablet PO ×2 (13:15→20:40)
--- NOTE | 2021-02-17 13:45 | P.PN_ITS ---
Subjective Subjective: Interval history: Patient was seen and examined this morning, denies any suicidal ideation, no acute events overnight. His other vitals and labs have been reviewed. Underwent cardiac nuclear stress test today. He tolerated the procedure well. Medications: Reviewed: Yes Medication Review Details: Current Medications Acetaminophen (Acetaminophen 325 Mg Tablet) 650 mg PO Q6H PRN PRN Reason: Mild/Mod Pain Or Temp >/= 101 Last Admin: 02/13/21 19:46 Dose: 650 mg Documented by: Apixaban (Apixaban 5 Mg Tablet) 10 mg PO BID@0900,2100 [facility] Last Admin: 02/15/21 09:18 Dose: 10 mg Documented by: Aspirin (Aspirin 81 Mg Chew Tablet) 81 mg PO DAILY NEFTALY Last Admin: 02/15/21 08:23 Dose: 81 mg Documented by: Bisacodyl (Bisacodyl 5 Mg Tablet) 10 mg PO DAILY PRN PRN Reason: Constipation (see protocol) Haloperidol Lactate (Haloperidol Inj 5 Mg/Ml Inj 1 Ml) 1 mg IM Q4H PRN PRN Reason: AGITATION Last Admin: 02/15/21 00:09 Dose: 1 mg Documented by: Fentanyl 1,000 mcg/ Sodium (Chloride) 100 mls @ 0 mls/hr IV .Q0M NEFTALY; Protocol Last Titration: 02/14/21 09:59 Dose: Infused Documented by: Norepinephrine Bitartrate 4 mg (/ Dextrose) 254 mls @ 0 mls/hr IV .Q0M NEFTALY; Protocol Last Titration: 02/14/21 03:12 Dose: Infused Documented by: Vancomycin/PEG/NADA/Lysine/Water (Vancocin) 1,500 mg in 300 mls @ 200 mls/hr IV Q12H [facility] Last Admin: 02/15/21 12:00 Dose: Not Given Documented by: Piperacillin Sod/Tazobactam (Sod 3.375 gm/ Sodium Chloride) 50 mls @ 12.5 mls/hr IV Q8H NEFTALY Last Admin: 02/15/21 08:11 Dose: 12.5 mls/hr Documented by: Losartan Potassium (Losartan 50 Mg Tablet) 25 mg PO DAILY NEFTALY Last Admin: 02/15/21 08:24 Dose: Not Given Documented by: Midodrine (Midodrine 5 Mg Tablet) 5 mg PO TID NEFTALY Last Admin: 02/15/21 08:23 Dose: 5 mg Documented by: Ondansetron HCl (Ondansetron 2 Mg/Ml Sdv 2 Ml) 4 mg IVP Q8H PRN PRN Reason: vomiting, or N/V if npo Last Admin: 02/15/21 13:02 Dose: 4 mg Documented by: Pantoprazole Sodium (Pantoprazole 40 Mg Sdv) 40 mg IVP DAILY [facility] Last Admin: 02/15/21 08:23 Dose: 40 mg Documented by: Potassium Phosphate (Phosphorus 250 Mg Tablet) 250 mg PO BID [facility] Last Admin: 02/15/21 08:24 Dose: 250 mg Documented by: Simethicone (Simethicone 40 Mg/0.6 Ml Bottle 30ml) 40 mg PO QID PRN PRN Reason: FLATULENCE Last Admin: 02/15/21 13:02 Dose: 0.6 ml Documented by: Sodium Bicarbonate (Sodium Bicarbonate 650 Mg Tablet) 650 mg PO TID [facility] Last Admin: 02/15/21 08:23 Dose: 650 mg Documented by: Spironolactone (Spironolactone 25 Mg Tablet) 25 mg PO DAILY [facility] Last Admin: 02/15/21 11:59 Dose: 25 mg Documented by: Vitals/I&O/Wt Last Vital Signs Temp 97.7 F 02/17/21 10:00 Pulse 99 02/17/21 13:25 Resp 24 H 02/17/21 13:15 BP 94/63 02/17/21 12:00 Pulse Ox 92 02/17/21 12:00 02/16/21 02/17/21 02/17/21 22:59 06:59 14:59 Intake Total 816 / 1956 2005 360 / 360 Output Total 350 / 750 300 / 1050 150 / 150 Balance 466 / 1206 -250 / 956 210 / 210 Weight last 48 hrs Weight 97.976 kg Weight 98.475 kg Physical Exam Const: COMMON NORMALS: patient oriented x3 HENMT: COMMON NORMALS: normocephalic and atraumatic HEAD & SCALP: no rmocephalic and atraumatic Chest: CHEST: Yes Symmetrical chest wall rise Resp: COMMON NORMALS: clear to auscultation bilaterally EFFORT & INSPECTION: Yes symmetric chest movement AUSCULTATION: clear to auscultation bilaterally Cardio: COMMON NORMALS: regular rate, regular rhythm, S1 normal heart sound present, S2 normal heart sound present, No gallops present (Cardio), No murmurs present (Cardio), No rub (Cardio) and Peripheral pulses 2+ throughout RATE: regular rate RHYTHM: regular rhythm HEART SOUNDS: S1 normal heart sound present and S2 normal heart sound present PERIPHERAL PULSES: Peripheral pulses 2+ throughout GI: COMMON NORMALS: Normal to inspection, nondistended, normoactive bowel sounds present, Soft to palpation, non-tender, No hepatosplenomegaly present and no masses AUSCULTATION: Yes normoactive bowel sounds PALPATION: Yes Soft to palpation and Yes No hepatosplenomegaly present RECTAL EXAM: Yes deferred Extremity: COMMON NORMALS: no clubbing, cyanosis or edema and no pedal edema Neuro: COMMON NORMALS: patient oriented x3 Urinary Catheter Management^: García: Cath Placed During This Visit: yes, but has since been removed by the nurse Reason for Continuing Indwelling Catheter: Decision to DC Catheter Urinary Catheter Date of Insertion: 02/13/21 Date Urinary Catheter Removed: 02/14/21 Time Urinary Catheter Discontinued: 10:54 Data : 02/17/21 03:19 02/17/21 03:19 A&P Assessment and plan (1) Suicidal ideation: -Continues to have active suicidal ideation, no plan, tells me he wants to -Multiple hospital admissions in the past for active suicidal ideation, suicide attempt -Recent hospitalization for active suicide ideation, suicide attempt, intentional overdose, requiring ICU admission, was on pressors, critically ill -Currently actively suicidal, tells me he wants to , refusing medical care -Given his past history, it is highly likely that he is intentionally overdosed on his medications, he does admit that he overdosed on Klonopin, possible trazodone, possible early his home medication such as doxepin -In my opinion he does not have capacity to make decision as he is actively suicidal currently, and is not making informed decisions -For now we will do our best to use sedating medications such as Haldol and Ativan to control his agitation, allow for medication administration, blood dr bria, and appropriate medical interventions -We will weigh the risks and benefits of these medications, as they are associate with side effects, monitor respiratory discretion, QT interval, and use them sparingly -For now hold off on restraints, as he has not threatened staff, threatened me, has not had any physical violence towards anyone, no physical violence towards himself -Perform 96-hour hold- Status: Acute (2) Altered mental status: likely related to polysubstance abuse given history, Urine drug seen negative, negative salicylate and acetaminophen levels Has a history of TCA overdose, unclear if he took TCA Ethylene glycol level Has had chest pain complaints this afternoon, repeat EKG series, troponin series EKG showed QTC 449 ms, QRS 109, [place] 175, incomplete RBBB Telemetry monitoring Alternate possibilities include PE vs NSTEMI Status: Acute Qualifiers: Altered mental status type: coma Coma depth: [place] coma 3-8 Coma timing: at arrival to emergency department Qualified Code(s): R40.2432 - Ryan coma scale score 3-8, at arrival to emergency department (3) Hypoxemia: related to PE, poor resp effort from low GCS Currently extubated, on 2 to 3 L, responds well to diuresis continue to monitor Status: Acute (4) Acute kidney injury: -Secondary to dehydration, rhabdomyolysis Status: Acute (5) Pulmonary embolism: CTA with right side PE Switch to Eliquis On echocardiogram as below Status: Acute Qualifiers: Acute cor pulmonale presence: without acute cor pulmonale Chronicity: unspecified Pulmonary embolism type: other Qualified Code(s): I26.99 - Other pulmonary embolism without acute cor pulmonale (6) Elevated troponin I level: cannot exclude NSTEMI at this time 6-hour troponin 70.6 6, delta 73.34 may be 2/2 PE, demand supply mismatch Switch to Eliquis Continue aspirin 81 mg echocardiogram Diffuse hypokinesis of the left ventricle with a diminished ejection fraction of 30 to 35%. Mildly dilated right ventricle with slightly diminished ejection fraction. Mildly dilated right atrium No significant valvular abnormalities. No significant pericardial effusion No similar previous studies are available for comparison. Stress test:Normal myocardial perfusion imaging with no evidence of ischemia. LV systolic function is normal. Continue aspirin, spironolactone, losartan. Has had chest pain complaints, repeat EKG series, troponin series We will continue to monitor closely Status: Acute (7) Drug overdose, intentional: poison control notified monitor for serotonin syndrome, development of arrhythmias Status: Acute Qualifiers: Encounter type: initial encounter Qualified Code(s): T50.902A - Poisoning by unspecified drugs, medicaments and biological substances, intentional self-harm, initial encounter (8) Acute respiratory failure: -GCS 7 on admission, intubated to protect airway -Successfully extubated February 14, 2021, onto 2 to 3 L, now to 6 L -Refusing to wear oxygen, ripped off his oxygen, saturating in the low 80s -We will use sedation minimally, control agitation, replace oxygen, monitor for respiratory depression, repeat ABG -Continue Zosyn for aspiration pneumonia coverage -Currently on 2 to 3 L, symptoms have improved with diuresis, continue to diurese Status: Acute (9) Shock: -Currently off Levophed -Start p.o. midodrine -Possibly secondary to TCA -Possibly secondary to sepsis related to pneumonia -Possibly secondary to sedating medication -Possibly secondary to pulmonary emboli, NSTEMI -Continue Levophed, -Monitor closely Status: Acute (10) Suicide attempt: Status: Acute (11) QT prolongation: Status: Acute (12) Non-ischemic cardiomyopathy: Status: Acute (13) Elevated troponin: Status: Acute Additional A&P Information chest. Ua unremarkabke. No gross localizing signs of infection at this time, pending blood cx. Vaccinated for covid 19 with 2 dose mrna series (takn nov and Jan 30, 2021) Attestations Medical Necessity Statement*: Patient needs to be in hospital for management of above defined problems. Coding Level of Care Code Acute Engraver Wood for [facility] Fwd Exam Detailed Diagnoses Suicidal ideation R45.851 Altered mental status R40.2432 Altered mental status type: coma Coma depth: Ryan coma 3-8 Coma timing: at arrival to emergency department Hypoxemia R09.02 Acute kidney injury N17.9 Pulmonary embolism I26.99 Acute cor pulmonale presence: without acute cor pulmonale Chronicity: unspecified Pulmonary embolism type: other Elevated troponin I level R77.8 Drug overdose, intentional T50.902A Encounter type: initial encounter Acute respiratory failure J96.00 Shock R57.9 Suicide attempt T14.91XA QT prolongation R94.31 Non-ischemic cardiomyopathy I42.8 Elevated troponin R77.8
[2021-02-17] MEDS: nicotine 2 mg Gum BUCCAL ×2 (16:31→22:57)
--- NOTE | 2021-02-17 17:29 | PC.NURSE ---
Shift Note Frequent safety and comfort rounds continue. Orders and/or nursing care completed as indicated. Patient monitored for response to intervention and treatment(s). Education provided includes treatment plan, medications and possible move to NPU. Pt verbalizes understanding. Sitter at bedside. Pt denies any needs at this time. Nicorette gum given per PRN orders. No other issues noted. Will continue to monitor.
--- NOTE | 2021-02-17 18:51 | NMCV_ITS ---
NM lilly perf SPECT r/s* [id number] Shayan Dickson Age: 35 Gender: M : 1985 Exam Date: 02/17/2021 07:34 Ordering Phys: Phuc Valenzuela MD ([email or web address]) Technologist: JUAN Patrick Exam Location: [facility] Indications: OVERDOSE STRESS TEST [facility] IMAGE PROTOCOL Rest/Stress 1 Lexiscan Day Radiopharmaceutical Dose (mCi) Administration Site Administered by Rest: Tc-99m 10.9 IV JUAN Salinas Sestamibi Stress:Tc-99m 32.4 IV JUAN Patrick Sestamimartha Rest: 17-Feb-2021 60 Discovery 630 Stress: 17-Feb-2021 30 Discovery 630 0.4mg Lexiscan. Images obtained in supine and prone position. SPECT RESULTS Technical Quality: Excellent Raw Data Analysis: Normal Image Corrections: No attenuation or motion correction applied Summed Stress Score: 1 Summed Rest Score: 1 Summed Difference Score: 1 PERFUSION FINDINGS Homogenous radiotracer uptake throughout the myocardium. No evidence of ischemia seen. FUNCTIONAL RESULTS (calculated via Gated SPECT) Stress Image LV EF (%): 66 Stress EDV (mL):90 TID: 1.08 Stress ESV (mL):31 FUNCTIONAL FINDINGS: There is normal left ventricular systolic function. IMPRESSIONS 1. Normal myocardial perfusion imaging with no evidence of ischemia. 2. LV systolic function is normal. Maynor Huynh MD (Electronically Signed) Final Date: 17 February 2021 17:30 S
[2021-02-18] VITALS (23 sets, daily range): BP systolic 85–124; BP diastolic 61–88; PULSE 72–86; RESP 12–27; TEMP 36.4–36.9; O2SAT 93–99; BMI 29.5
[2021-02-18] MEDS: oxyCODONE-APAP 5-325 mg Tablet PO ×4 (05:28→17:56)
--- NOTE | 2021-02-18 06:56 | PC.NURSE ---
Report received, assessment completed. Pt AAOx4, makes all needs known. Asking when he will be moved to NPU, education provided to pt r/t the need for psych to see him again before then. Denies any needs at this time. VSS. Will monitor
--- NOTE | 2021-02-18 07:51 | PC.NURSE ---
There were no changes with the patient. Vitals were great, and the patient was calm and polite. Vitals were within normal parameters.
[2021-02-18] MEDS: spironolactone 25 mg Tablet PO (07:56)
[2021-02-18] MEDS: aspirin 81 mg Chew Tablet PO (07:56)
[2021-02-18] MEDS: pantoprazole DR 40 mg Tablet PO (07:56)
[2021-02-18] MEDS: apixaban 5 mg Tablet 10 MG PO ×2 (07:57→20:25)
[2021-02-18] MEDS: losartan 50 mg Tablet 25 MG PO (07:57)
[2021-02-18] MEDS: nicotine 2 mg Gum BUCCAL ×2 (08:00→13:28)
--- NOTE | 2021-02-18 08:11 | P.PN_ITS ---
Subjective Subjective: Interval history: Patient was seen and examined this morning, no acute events overnight.His other vitals and labs have been reviewed. Medications: Reviewed: Yes Medication Review Details: Current Medications Acetaminophen (Acetaminophen 325 Mg Tablet) 650 mg PO Q6H PRN PRN Reason: Mild/Mod Pain Or Temp >/= 101 Last Admin: 02/13/21 19:46 Dose: 650 mg Documented by: Apixaban (Apixaban 5 Mg Tablet) 10 mg PO BID@0900,2100 [facility] Last Admin: 02/15/21 09:18 Dose: 10 mg Documented by: Aspirin (Aspirin 81 Mg Chew Tablet) 81 mg PO DAILY [facility] Last Admin: 02/15/21 08:23 Dose: 81 mg Documented by: Bisacodyl (Bisacodyl 5 Mg Tablet) 10 mg PO DAILY PRN PRN Reason: Constipation (see protocol) Haloperidol Lactate (Haloperidol Inj 5 Mg/Ml Inj 1 Ml) 1 mg IM Q4H PRN PRN Reason: AGITATION Last Admin: 02/15/21 00:09 Dose: 1 mg Documented by: Fentanyl 1,000 mcg/ Sodium (Chloride) 100 mls @ 0 mls/hr IV .Q0M [facility]; Protocol Last Titration: 02/14/21 09:59 Dose: Infused Documented by: Norepinephrine Bitartrate 4 mg (/ Dextrose) 254 mls @ 0 mls/hr IV .Q0M [facility]; Protocol Last Titration: 02/14/21 03:12 Dose: Infused Documented by: Vancomycin/PEG/NADA/Lysine/Water (Vancocin) 1,500 mg in 300 mls @ 200 mls/hr IV Q12H [facility] Last Admin: 02/15/21 12:00 Dose: Not Given Documented by: Piperacillin Sod/Tazobactam (Sod 3.375 gm/ Sodium Chloride) 50 mls @ 12.5 mls/hr IV Q8H [facility] Last Admin: 02/15/21 08:11 Dose: 12.5 mls/hr Documented by: Losartan Potassium (Losartan 50 Mg Tablet) 25 mg PO DAILY [facility] Last Admin: 02/15/21 08:24 Dose: Not Given Documented by: Midodrine (Midodrine 5 Mg Tablet) 5 mg PO TID [facility] Last Admin: 02/15/21 08:23 Dose: 5 mg Documented by: Ondansetron HCl (Ondansetron 2 Mg/Ml Sdv 2 Ml) 4 mg IVP Q8H PRN PRN Reason: vomiting, or N/V if npo Last Admin: 02/15/21 13:02 Dose: 4 mg Documented by: Pantoprazole Sodium (Pantoprazole 40 Mg Sdv) 40 mg IVP DAILY [facility] Last Admin: 02/15/21 08:23 Dose: 40 mg Documented by: Potassium Phosphate (Phosphorus 250 Mg Tablet) 250 mg PO BID [facility] Last Admin: 02/15/21 08:24 Dose: 250 mg Documented by: Simethicone (Simethicone 40 Mg/0.6 Ml Bottle 30ml) 40 mg PO QID PRN PRN Reason: FLATULENCE Last Admin: 02/15/21 13:02 Dose: 0.6 ml Documented by: Sodium Bicarbonate (Sodium Bicarbonate 650 Mg Tablet) 650 mg PO TID [facility] Last Admin: 02/15/21 08:23 Dose: 650 mg Documented by: Spironolactone (Spironolactone 25 Mg Tablet) 25 mg PO DAILY [facility] Last Admin: 02/15/21 11:59 Dose: 25 mg Documented by: Vitals/I&O/Wt Last Vital Signs Temp 98.3 F 02/18/21 04:00 Pulse 72 02/18/21 07:00 Resp 12 02/18/21 07:00 BP 109/73 02/18/21 07:57 Pulse Ox 93 02/18/21 03:00 02/17/21 02/18/21 02/18/21 22:59 06:59 14:59 Intake Total 600 / 1010 240 / 240 Output Total 200 / 350 Balance 400 / 660 240 / 240 Weight last 48 hrs Weight 95.878 kg Weight 97.976 kg Physical Exam Const: COMMON NORMALS: patient oriented x3 HENMT: COMMON NORMALS: normocephalic and atraumatic HEAD & SCALP: normocephalic and atraumatic Chest: CHEST: Yes Symmetrical chest wall rise Resp: COMMON NORMALS: clear to auscultation bilaterally EFFORT & INSPECTION: Yes symmetric chest movement AUSCULTATION: clear to auscultation bilaterally Cardio: COMMON NORMALS: regular rate, regular rhythm, S1 normal heart sound present, S2 normal heart sound present, No gallops present (Cardio), No murmurs present (Cardio), No rub (Cardio) and Peripheral pulses 2+ throughout RATE: regular rate RHYTHM: regular rhythm HEART SOUNDS: S1 normal heart sound present and S2 normal heart sound present PERIPHERAL PULSES: Peripheral pulses 2+ throughout GI: COMMON NORMALS: Normal to inspection, nondistended, normoactive bowel sounds present, Soft to palpation, non-tender, No hepatosplenomegaly present and no masses AUSCULTATION: Yes normoactive bowel sounds PALPATION: Yes Soft to palpation and Yes No hepatosplenomegaly present RECTAL EXAM: Yes deferred Extremity: COMMON NORMALS: no clubbing, cyanosis or edema and no pedal edema Neuro: COMMON NORMALS: patient oriented x3 Urinary Catheter Management^: García: Cath Placed During This Visit: yes, but has since been removed by the nurse Reason for Continuing Indwelling Catheter: Decision to DC Catheter Urinary Catheter Date of Insertion: 02/13/21 Date Urinary Catheter Removed: 02/14/21 Time Urinary Catheter Discontinued: 10:54 Data : 02/17/21 03:19 02/17/21 03:19 A&P Assessment and plan (1) Suicidal ideation: -Continues to have active suicidal ideation, no plan, tells me he wants to -Multiple hospital admissions in the past for active suicidal ideation, suicide attempt -Recent hospitalization for active suicide ideation, suicide attempt, intentio nal overdose, requiring ICU admission, was on pressors, critically ill -Currently actively suicidal, tells me he wants to , refusing medical care -Given his past history, it is highly likely that he is intentionally overdosed on his medications, he does admit that he overdosed on Klonopin, possible trazodone, possible early his home medication such as doxepin -In my opinion he does not have capacity to make decision as he is actively suicidal currently, and is not making informed decisions -For now we will do our best to use sedating medications such as Haldol and Ativan to control his agitation, allow for medication administration, blood draws, and appropriate medical interventions -We will weigh the risks and benefits of these medications, as they are associate with side effects, monitor respiratory discretion, QT interval, and use them sparingly -For now hold off on restraints, as he has not threatened staff, threatened me, has not had any physical violence towards anyone, no physical violence towards himself -Perform 96-hour hold- Status: Acute (2) Altered mental status: likely related to polysubstance abuse given history, Urine drug seen negative, negative salicylate and acetaminophen levels Has a history of TCA overdose, unclear if he took TCA Ethylene glycol level Has had chest pain complaints this afternoon, repeat EKG series, troponin series EKG showed QTC 449 ms, QRS 109, SC 175, incomplete RBBB Telemetry monitoring Alternate possibilities include PE vs NSTEMI Status: Acute Qualifiers: Altered mental status type: coma Coma depth: Ryan coma 3-8 Coma timing: at arrival to emergency department Qualified Code(s): R40.2432 - [place] coma scale score 3-8, at arrival to emergency department (3) Hypoxemia: related to PE, poor resp effort from low GCS Currently extubated, on 2 to 3 L, responds well to diuresis continue to monitor Status: Acute (4) Acute kidney injury: -Secondary to dehydration, rhabdomyolysis Status: Acute (5) Pulmonary embolism: CTA with right side PE On Eliquis 10 mg po BID for 7 days ( 02/15-02/22 ),there after will switch to eliquis 5 mg po BID for atleast 3 months. Status: Acute Qualifiers: Acute cor pulmonale presence: without acute cor pulmonale Chronicity: unspecified Pulmonary embolism type: other Qualified Code(s): I26.99 - Other pulmonary embolism without acute cor pulmonale (6) Elevated troponin I level: cannot exclude NSTEMI at this time 6-hour troponin 70.6 6, delta 73.34 may be 2/2 PE, demand supply mismatch Switch to Eliquis Continue aspirin 81 mg echocardiogram Diffuse hypokinesis of the left ventricle with a diminished ejection fraction of 30 to 35%. Mildly dilated right ventricle with slightly diminished ejection fraction. Mildly dilated right atrium No significant valvular abnormalities. No significant pericardial effusion No similar previous studies are available for comparison. Stress test:Normal myocardial perfusion imaging with no evidence of ischemia. LV systolic function is normal. Continue aspirin, spironolactone, losartan and Carvedilol 3.125 mg po BID . Patient has agreed to see cardiology as outpatient, for continued management of new onset likley non ischemic CM. Status: Acute (7) Drug overdose, intentional: poison control notified monitor for serotonin syndrome, development of arrhythmias Status: Acute Qualifiers: Encounter type: initial encounter Qualified Code(s): T50.902A - Poisoning by unspecified drugs, medicaments and biological substances, inten tional self-harm, initial encounter (8) Acute respiratory failure: -GCS 7 on admission, intubated to protect airway -Successfully extubated February 14, 2021, onto 2 to 3 L, now to 6 L -Refusing to wear oxygen, ripped off his oxygen, saturating in the low 80s -We will use sedation minimally, control agitation, replace oxygen, monitor for respiratory depression, repeat ABG -Continue Zosyn for aspiration pneumonia coverage -Currently on 2 to 3 L, symptoms have improved with diuresis, continue to diurese Status: Acute (9) Shock: -Currently off Levophed -Start p.o. midodrine -Possibly secondary to TCA -Possibly secondary to sepsis related to pneumonia -Possibly secondary to sedating medication -Possibly secondary to pulmonary emboli, NSTEMI -Continue Levophed, -Monitor closely Status: Acute (10) Suicide attempt: Status: Acute (11) QT prolongation: Status: Acute (12) Non-ischemic cardiomyopathy: Status: Acute (13) Elevated troponin: Status: Acute Additional A&P Information chest. Ua unremarkabke. No gross localizing signs of infection at this time, pending blood cx. Vaccinated for covid 19 with 2 dose mrna series (takn nov and Jan 30, 2021) Attestations Medical Necessity Statement*: Patient is being transferred to [facility] for further management. Coding Level of Care Code Acute Tool Liaison for [facility] Fw Exam Detailed Diagnoses Suicidal ideation R45.851 Altered mental status R40.2432 Altered mental status type: coma Coma depth: Ryan coma 3-8 Coma timing: at arrival to emergency department Hypoxemia R09.02 Acute kidney injury N17.9 Pulmonary embolism I26.99 Acute cor pulmonale presence: without acute cor pulmonale Chronicity: unspecified Pulmonary embolism type: other Elevated troponin I level R77.8 Drug overdose, intentional T50.902A Encounter type: initial encounter Acute respiratory failure J96.00 Shock R57.9 Suicide attempt T14.91XA QT prolongation R94.31 Non-ischemic cardiomyopathy I42.8 Elevated troponin R77.8
--- NOTE | 2021-02-18 08:28 | P.PN_ITS ---
Vitals/I&O/Wt Last Vital Signs Temp 98.3 F 02/18/21 04:00 Pulse 72 02/18/21 07:00 Resp 12 02/18/21 07:00 BP 109/73 02/18/21 07:57 Pulse Ox 93 02/18/21 03:00 02/17/21 02/18/21 02/18/21 22:59 06:59 14:59 Intake Total 600 / 1010 240 / 240 Output Total 200 / 350 Balance 400 / 660 240 / 240 Weight last 48 hrs Weight 211 lb 6 oz Weight 216 lb Physical Exam Narrative: EXAM NARRATIVE: GENERAL: Patient is alert, awake and oriented x3. [] NECK: No jugular vein distension. [] HEENT: No cyanosis. No icterus. No pallor. [] HEART: Regular S1 and S2. No murmur, rub or gallop. [] LUNGS: Clear to auscultate bilaterally. [] ABDOMEN: Soft, nontender and nondistended. Positive bowel sounds. No guarding, rebound or tenderness. [] CENTRAL NERVOUS SYSTEM: Grossly nonfocal. [] EXTREMITIES: Lower extremities with 1+ edema bilaterally. Pulses palpable in the lower extremities, both dorsalis pedis and posterior tibial. [] Urinary Catheter Management^: García: Cath Placed During This Visit: yes, but has since been removed by the nurse Reason for Continuing Indwelling Catheter: Decision to DC Catheter Urinary Catheter Date of Insertion: 02/13/21 Date Urinary Catheter Removed: 02/14/21 Time Urinary Catheter Discontinued: 10:54 Data : 02/17/21 03:19 02/17/21 03:19 A&P Assessment and plan (1) Elevated troponin: Troponin elevation was likely secondary to type II FL. Lexiscan was no rmal Status: Acute (2) Non-ischemic cardiomyopathy: Lexiscan is normal. Has been started on losartan. Coreg to be continued Status: Acute (3) QT prolongation: Currently the QTC is 456. Likely it was medication induced. Status: Acute (4) Drug overdose, intentional: Management as per the primary. Status: Acute Qualifiers: Encounter type: initial encounter Qualified Code(s): T50.902A - Poisoning by unspecified drugs, medicaments and biological substances, intentional self-harm, initial encounter (5) Altered mental status: Mentation has improved Status: Acute Qualifiers: Altered mental status type: coma Coma depth: [place] coma 3-8 Coma timing: at arrival to emergency department Qualified Code(s): R40.2432 - [place] coma scale score 3-8, at arrival to emergency department (6) Pulmonary embolism: Patient is on anticoagulation Status: Resolved Qualifiers: Acute cor pulmonale presence: without acute cor pulmonale Chronicity: unspecified Pulmonary embolism type: other Qualified Code(s): I26.99 - Other pulmonary embolism without acute cor pulmonale Attestations Medical Necessity Statement*: Care expected to cross 2 midnights. 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
[2021-02-18] MEDS: carvedilol 3.125 mg Tablet PO ×2 (08:41→17:56)
--- NOTE | 2021-02-18 09:57 | PC.CHAP ---
Pastoral Care Encounter/Spiritual Assessment Type of Contact [] Declined folder inspector visit [] Patient/Family/Request visit [] Outpatient visit [] Follow-up visit [] Physician referral [] Code/Alert [x] Routine visit [] Staff referral [] Actively dying [] Patient sleeping [] Family support [] [] Out of room [] Palliative care [] [] Receiving care in room [] Pre-surgical visit [] Trauma [] Long length of stay [x] ICU visit [] Other: Relational/Emotional Strength [] Patient feels connected with others/family/visitors/staff [] Distress [] Loneliness/isolation [] Abandonment Spirituality of Patient [] Person of Janneth [] Attends Yazidism of their Janneth [] Believes in Prayer [] Reads Bible or Alevism materials [] There are Spiritual issues to be addressed Race Car Driver Interventions x] Prayer [x] Active listening [x] Non-anxious presence [x] Spiritual/emotional support [] Crisis/trauma care [] Spiritual counseling [] Bereavement support [] Provided bereavement packet [] Provided Bible/devotional materials [] Provided toy/stuffed animal, coloring book to patient or family member [] Provided Communion [] Anointing/[place] [] Salvation [x] Completed spiritual assessment [] Other: Impact on Illness or Injury [] Angry [] Fearful [] Anxious [] Often cries [] Exhaustion [] Unable to work [] Unable to attend latter-day [] Unable to walk/stand [] Unable to read [] Unable to drive [] Unable to eat/drink [] Unable to sleep [] Unable to be with family [] Patient intubated [] Other: Summary patient much more responsive today... ate his meals and wanted prayer... 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 Time spent with patient 10 min
--- NOTE | 2021-02-18 12:54 | PC.SOCIAL ---
IMM update IMM updated with patient. Copy Pg 2 provided. Verbalized an understanding. Initialled, dated, timed, and placed in chart.
--- NOTE | 2021-02-18 16:46 | PC.NURSE ---
Addendum entered by Adrian Umanzor RN 02/18/21 17:03: Pt transported to [facility] with home meds and wallet given to nursing staff upon arrival Original Note: Report called to [facility]. Awaiting security for transport
[2021-02-18] MEDS: trazodone 50 mg Tablet PO (20:25)
[2021-02-19] VITALS (8 sets, daily range): BP systolic 96–131; BP diastolic 66–75; PULSE 77–84; RESP 16–18; TEMP 35.9–36.8; O2SAT 96–98
[2021-02-19] MEDS: oxyCODONE-APAP 5-325 mg Tablet PO ×3 (03:18→11:53)
[2021-02-19] MEDS: apixaban 5 mg Tablet 10 MG PO ×2 (08:07→20:34)
[2021-02-19] MEDS: nicotine 2 mg Gum BUCCAL ×3 (08:07→20:34)
[2021-02-19] MEDS: spironolactone 25 mg Tablet PO (08:07)
[2021-02-19] MEDS: aspirin 81 mg Chew Tablet PO (08:07)
[2021-02-19] MEDS: losartan 50 mg Tablet 25 MG PO (08:07)
[2021-02-19] MEDS: pantoprazole DR 40 mg Tablet PO (08:07)
[2021-02-19] MEDS: carvedilol 3.125 mg Tablet PO ×2 (11:53→17:12)
--- NOTE | 2021-02-19 13:26 | W.PM.NPUH&PS ---
Providers/Chief Complaint Admitting Physician: Noel House MD Chief Complaint: OD HPI NPU History of Present Illness Shayan Dickson is a 35 year old male he was transferred from the ICU after a serious overdose attempt. They said he was almost successful this time. There is no discharge summary at this time. This is the report on admission: Shayan Dickson is a 35 year old male with PMH polysubstabnce abuse brought in by ambulanace after family noted he has taken multiple pills of clonidie and trazodone at home. Upon arrival patient was unresponsive, GCS 7, intubated for low GCS and airway protection. Noted to have clonus prior to intubation. Pos intubation he has been hypotensive, needing levophed @10. Currently on mechanical ventilation, sedated with propofol and fentanyl. No futher history available at this time. Diagnostics show mild leukocytosis, elevated trop >100, rigth side PE I think that should have been clonazepam instead of clonidine. They found that there were 27 clonazepam pills missing from his bottle. His family said that he had also taken at least 6 trazodone. He has been admitted here several times. The following is the HPI from the most recent hospitalization. The discharge summary has not yet been done. History of Present Illness Shayan Dickson is a 35 year old male who presented to the emergency department with the following report: Chief Complaint: Psychiatric Symptoms Stated Complaint: N/V, DIARRHEA, BLOOD IN STOOL Time Seen by Provider: 01/25/21 08:16 History of Present Illness: HPI Narrative: Patient states that he was having a lot of hallucinations been going on for quite a while and he took his pills last night. Hard to determine how many pills are were. Patient said he threw up soon afterwards. He presents here with suicide attempt and with vital signs stable , conversing normally. Does not appear in any acute distress. Said he felt nauseated earlier in the morning hours. The suicide attempt happened approximately 8 hours ago. complaint: suicidal ideation and feels depressed Onset (ago): year(s) History of same: Yes Associated psychiatric symptoms: depression, suicidal ideation, auditory hallucinations and visual hallucinations Associated symptoms: Reports auditory hallucinations, visual hallucinations, depression and suicidal ideation. He was admitted to the ICU for definitive treatment of the sequela from his overdose. A psychiatric consult was requested. Shayan presents today appearing as he normally does on presentation. Significant laissez-faire for his circumstance. He had no real explanation for his behavior. There was no antecedent event or nidus for his suicide attempt. He just reported that I'm suicidal I guess. He denies any them but that his uncle's house. He continues to be isolated and does not have any friends. This intensive suicidal gesture somewhat like the last 1 has been atypical for his history as a psychiatric patient. He reports that his voices Geo Serrano. However we discussed concerns that this may be related to his cluster B pathology and outside of his cognitive appreciation. He denied any changes in his life certainly none since his discharge January 19, 2021. But he is appearing less and less safe outside of the hospital. An excerpt of his last discharge note is included below for context as he denies any substantive changes. Per his 01/19/2021 [facility] psychiatric discharge summary: SI - STATES ATTEMPT MADE Brief History: Shayan Dickson is a 35 year old male who presented to the emergency department with the following report: Chief Complaint: Overdose Stated Complaint: SI - STATES ATTEMPT MADE Time Seen by Provider: 01/09/21 06:58 History of Present Illness: HPI Narrative: 35-year-old male presents emergency room states he took 30 Ambien last night 10 mg tablets note for 5:00 this morning took 66 mg tablets of Invega. He did not feel like it was effective in his attempts to kill himself so he then ingested a razor blade that he had been using to try to cut his left wrist there is superficial abrasions on the left wrist. Denies any hematemesis coffee-ground emesis he has presented to our emergency room in the past with ingestion of razor blades. MD complaint: intentional overdose Onset (ago): hour(s). He was admitted to the hospital for definitive treatment of those issues which included going to the OR and getting the razor cartridge removed which has been a behavior he has done for multiple times without known him since 2019 and tablets of medications were also removed during that ER visit. He was then monitored in the ICU and then transferred to the neuropsychiatric unit for definitive treatment of those issues. Today he presents with very limited historical information and is not really interested in speaking to me today. He had no clear reasoning behind his behavior at this point but also was very resistant to the conversation. We discussed the plan to hold his medications at least for the next day or so until we see how he responds to the over dosing of those medications and agreed that we would go from there. An excerpt of his last hospitalization which occurred in November is included below for context. Per his 12/17/2020 [facility] inpatient psychiatric evaluation: History of Present Illness Shayan Dickson is a 35 year old male who presented to the ED with the following report: Chief Complaint: Psychiatric Symptoms Stated Complaint: SI Time Seen by Provider: 12/16/20 08:45 History of Present Illness: HPI Narrative: 35-year-old male presents emergency room stating take 80 tablets of aspirin last night around 2 PM yesterday which makes it about 20 hours ago. He took some other pills along with that that were not labeled. He does state he was trying to kill himself. He states he had auditory hallucinations of voices telling him to kill himself. He has not had any hematemesis or coffee-ground emesis no hematochezia no melena. He denies any dysuria urgency or frequency. He has tried to harm himself in the past. Evidently this was precipitated by some relationship issues. MD complaint: suicidal ideation and feels depressed Duration: constant History of same: Yes Relieving factors: none Exacerbating factors: none Context: not taking psychiatric medications and significant life stressor Associated psychiatric symptoms: depression, suicidal ideation, auditory hallucinations and visual hallucinations Associated symptoms: Reports auditory hallucinations, depression and suicidal ideation; Deny visual hallucinations, delusions, homicidal ideation or racing thoughts Treatments prior to arrival: none If self harm: admits thoughts of self harm, has plan and has acted on plan. Agreed to the neuropsychiatric unit for definitive treatment of those issues. 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 Excerpt of that note is included below for context and as he denies substantive changes. He does endorse however that he has not been back on his medication for reasons that he could not clarify. But he has been off of the medication and not doing as well he reports. He reports that his living arrangement is still fairly stable and he was worried that he was going continue with the suicidal thoughts he was having and so he went to come to the hospital, get restarted on his medication have his suicidality myron and get back on track overall with treatment. Part of his concern what some of the medication was helpful some of it he did not feel was. We agreed we would review his chart and try to get a sense of what direction we might go in the treatment particularly with bipolar disorder. Per his 09/11/2020 [facility] inpatient psychiatric evaluation: History of Present Illness Shayan Dickson is a 35 year old male who presented to the emergency department with the following report: Chief Complaint: Overdose Stated Complaint: SI Time Seen by Provider: 09/10/20 10:40 History of Present Illness: HPI Narrative: Patient is a 35-year-old male who comes to the ED with SI and overdose. Patient says around 5 AM today he took approximately 120 tablets of Tylenol p.m. to kill himself. Patient has history of schizophrenia. He states that he has been suicidal in the past and that currently he is hearing voices that are telling him to kill himself. He states he has been currently taking his psych meds as prescribed but over the last week he feels like they have been helping him. This past week he is hearing the voices more and more. He denies any visual hallucinations or HI. He endorses having a little bit of nausea currently but no other symptoms. Associated symptoms: Reports auditory hallucinations and suicidal ideation; Deny visual hallucinations or homicidal ideation. He was admitted to the neuropsychiatric unit for definitive treatment of those issues. Shayan presents today reporting that he had left ear over a year ago and went down to a friend's place in another state had been doing fairly well. He reports that his uncle started having problems never brought him back. He reports that the reason why he came in was that his voices were increasing and he needed to have some treatment for that. We reviewed his medications and the different ones he had been on identify something he could try. He reports the Zyprexa has been effective for him but that at some point after he left this with him over the Thorazine and the Thorazine stopping helpful. He also was very focused on Suboxone reporting that he is been taking it and he started to have withdrawal symptoms secondary to it not being prescribed. We were able to review his records and determined that he had not had an active prescription at this time. Explained to him our policy only prescribing Suboxone to people with active prescription he had already stated he had the medication available at home but then was very elusive about having somebody bring it to substantiate his claim that he has been taking less to preserve it as he tried to get an appointment. We discussed the risk-benefit alternatives of a trial of Geodon and he understood agreed proceed as documented in his note. He denied any substantive changes in his psychosocial history outside [place] so an excerpt from his previous note is included below. Per his 09/17/2019 [facility] inpatient psychiatric eval: History of Present Illness Shayan Dickson is a 34 year old male Shayan presented to the emergency room reporting a decompensation and wanting to secondary to running out of his medications. His report is that he had been taking his medications as prescribed but was not allowed to sweet pickle maker his medication secondary to something to do with his insurance, that he did not understand. He reports that the medications that had been started in his last hospitalization were working fine and he was feeling optimistic about things, continuing to go in the right direction and improve, but as he got further away from them not being able to refill his medications, he started feeling worse and worse, and now he just reports that he is fed up with life and wanting to kill himself. He was admitted to the neuro-psychiatric unit for definitive treatment of those issues. We continued his current medications and agreed to do some investigation into his medications which were discontinued secondary to availability to make sure that it is not something that will prevent that in the future as well. We agreed that if we were able to identify that it was a glitch, that we would restart those medications and if we identify that it was going to be a problem moving forward, we would attempt an alternative treatment plan. He understood and agreed to proceed as is documented in this note. We reviewed his last hospitalization record from 06-25-19 and he denied any substantive changes since that time. An excerpt of that evaluation is included below. Per his last [facility] eval 06/25/2019: HPI NPU History of Present Illness Shayan Dickson is a 34 year old male who presents today reporting that he is doing okay. He reports that his Zyprexa was discontinued, but he could give no explanation for why that was the case. We discussed his repeat behavior from October of last year which was swallowing the ends of a couple BIC razors, which had already been used, and were fairly dull in this reported suicide attempt. He could not move away from the fact that it was a real and valid attempt and not some kind of gesture. He reported that he thought that if he took those that they would slice him but to be clear these were not actual razorblades that were open. This was little plastic tops of cheap razors that had double blades in them, but they are kind of contained in the plastic so there is some risk, but not extreme risk. The surgeon went in and took them out and had them sent away for testing. We discussed the fact that he does have intellectual disability within special education classes in school, has limited functioning in that way. He continues to live with his uncle and his five dogs. He reports that he will never do this thing with the razors again. We talked about the fact that if he did in fact succeed, that his dogs would be left alone. He reported that he thought about that, but there seemed to be limited connectivity. We reviewed his most recent psychiatric evaluation here and he denied any substantive changes in the history or psychosocial circumstances. Per recent [facility] eval 05/17/2019: HPI NPU History of Present Illness Chief complaint: the voices are so bad that I'm going to kill myself. History of present illness: Shayan Dickson is a 34 year old male who tells an undocumented fairly reasonable story of a life lived suffering auditory hallucinations to varying degrees. When he is doing well, he will hear muttering voices that do not cause him a great deal of difficulty. He states that he seldom is free of the voices. HE deons not report taking medication for this problem on a half-way or regular basis. 3 months ago, the voices began getting worse. He is has no theory as to why they have gotten worse. 3 weeks ago, they began getting intrusive to the point where he was willing to end his life just to free himself from the torture from these voices. He hears a number of different voices. He is able to interpret who they are. They are from important people in his life. These include a woman that he knows and Her boyfriend, his stepbrother and his . they Say demeaning things in a very loud manner. They tell him that he should and they tell him how he should kill himself. in spite of having struggled with during much of his life, he cannot give any guidance as to what interventions have been helpful. He said that he took lithium for a while and it was quite helpful. However it stopped working. It is noted that he was hospitalized here in October 2018 and was discharged on a combination of Suboxone, Zyprexa, and citalopram. He can give no assessment as to whether the Zyprexa helped him with his voices. He says that if the voices are reduced, he will no longr be suicidal. He is ambivalent about symptoms of depression. He says that he does not do anything enjoyable and simply passes this time when his phone and taking care of animals around his arm. He reports good sleep. He has no specific suicide plan this time. He said suicide thoughts were proceeded by the worsening of the voices. His urine drug screen is negative. He is actively taking the Suboxone and receives it from an outpatient therapist. However he has not continued his medications otherwise from discharge in October 2018. Mental health history: history of this patient was very difficult to acquire. He talks very rapidly and in the low mumbling fashion. His thoughts are mildly disorganized.he reports that originally he grew up in [place] and that at one point he left a rehabilitation program there and moved to [place]. He was only in [place] for 3 months when there were some financial difficulties and he came to the [facility] in 2010. He gives no further history regarding mental health care. It is noted that he can give no advisement regarding any other medication trials that have had any effect positive for negative on his auditory hallucinations. notes from his admission to this unit in October 2018: 11/13/2018 Shayan presents today reporting that the situation with his razor blade centered around his loss of his fianc?e. He reports that his significant other had committed suicide about 3 days shy of 2 years of when he made this suicide attempt before admission. He reports that he was feeling very low without feeling a clear sense of relief. And he had read online that he swallowed a razor blade that it would go through certain parts and because it was internal organs you would not feel it as it was slicing through things and that he would bleed out in his sleep. He reports that when he woke up and was alive but had a rectal bleeding he got really anxious and that when he came to the hospital. He is passed the razor blade now and at this point he reports that he is feeling better and more optimistic. With his first day on the psychiatric unit we discussed the fact that we needed to observe him for a couple of days to get a sense of where he really is prior to being comfortable with discharge. We had filed a 21-day hold paperwork but were able to negotiate and get an agreement that he will work with us over the next few days with a plan for discharge at the beginning of the week. Hospital Course: Shayan presented to the unit after being in the ICU and followed by surgery secondary to the ingestion of a razor blade or at least razor blade containing item from the head of a razor. After being followed until the object had been defecated since they were unable to get it by surgical means he was transferred to the NPU. After he woke up alive he reports that he got himself to the hospital for help and reports that he did not have any lethality after awaking and felt a desire to get help and not continue with self-injurious suicidal behaviors. So after a few days in the ICU he spent a few days in the NPU where he was observed and each day denied any lethality and a desire to go home and continue with his life. His medications were continued. Once he got to the NPU he acclimated to the individual, group and milieu therapies. While he was in the hospital he had routine laboratory studies which were within normal limits except for a few outliers. Those can be seen below. He also had a general medical evaluation this was within normal limits and revealed no acute processes except for the issue with the intentional ingestion. At the time of discharge his mood had improved, his lethality had resolved and he was sleeping better. He endorsed the plan to take his medication as prescribed, continue with his recovery oriented outpatient treatments and abstain from drugs of abuse as well as self-injurious and suicidal behaviors. He had obtained all the benefits he could get from the inpatient unit so he was discharged. Social history:the patient is currently supporting himself through his disability payments. He lives with uncle who apparently has a farm. He spends much of his time helping his uncle with daily activities around the farm such as feeding animals and taking care of the general grounds. He engages in no enjoyable activities and largely spends his time playing on his phone. His uncle apparently is advanced in age and is concerned about Shayan's well-being as the uncle's health declines. Shayan's uncle has advised him to go to a rehabilitation program and get off the Suboxone so that eventually he can be placed in a usp or residential care facility. Legal history:there is no history in the [place] public record of incarcerations or felony arrests. Past medical history: Allergies Escitalopram. NSAIDS (NON-STEROIDAL ANTI-INFLAMMA. Venlafaxine. SOCIAL HX: Heavy tobacco smoker (cigarette)- 1 pack per day. No alcohol use or drug use. No recent travel. PROBLEMS: Ulcerative Colitis. GI Bleeding. Depression. Bipolar Disorder. Colitis. ADDITIONAL SURGERIES: Appendectomy. . Mental Status Exam: the patient is an alert interpersonally engaged male. He is believed to be a reliable informant to the best of his ability as information that is provided is internally consistent and consistent with that in the chart. Appearance: hygiene is fair; no gross neurological deficits., gait is unremarkable; AIMS=0 Speech: Speech is she is rapid with indistinct enunciation with frequently makes some of the information difficult to assess. Thought processes: Thought processes are abstract. Judgment is adequate for safety. Associations: intact Psychotic processes: There is no indication of guarding or paranoia. There is no attention to the internal stimuli. auditory hallucinations are reported as above. He denied the presence of visual hallucinations. Judgment: Insight is good. Problem solving skills are adequate for safety. Orientation: The patient is oriented to person, place time and situation. Memory: no deficits noted in immediate, intermediate, or remote spheres. Attention: The patient is alert and interpersonally engaged. Language: Verbalizations are coherent. Fund of knowledge: Fund of knowledge is adequate. Affect/Mood: Affect is consistent with a depressed mood. he reported vague suicidal ideation without intent or plan. Affective range good Psychosis: perception unimpaired despite intrusive auditory hallucinations that he is experiencing.; reality testing intact. Diagnoses: schizophrenia?undifferentiated, acute Assessment:this is a difficult situation given that he has a long-standing history of schizophrenia but can give no feedback as to what medications have been tried without any success in the past. At this point, we will continue the Zyprexa 20 mg at bedtime and also provide when necessary dosing during the day with Geodon as needed for auditory hallucinations. He will continue with Suboxone and the Celexa. We will discuss the feasibility of placement in a rehabilitation program with social welfare administrator. If this is a reasonable possibility, tapering some from Suboxone will be discussed. Hospital Course Hospital Course The patient was admitted to the neuropsychiatric unit for definitive treatment of these issues. On the unit he slowly acclimated to the individual, group and milieu therapies. He had auditory hallucinations on admission and they gradually resolved as Geodon was started at 40 mg twice daily and gradually increased to 80 mg twice daily. He had no side effects on this medicine. Doxepin 25 mg was started for insomnia. He was receptive to treatment team recommendations and showed modest improvement and was able to contract for safety prior to discharge. During the hospitalization, patient had routine laboratory studies which were within normal limits except for few outliers. Additionally there was a general medical evaluation which was also within normal limits and revealed no new acute processes. Discharge Summary: At the time of discharge, psychosis and lethality were denied. Mood and anxiety were well managed. Patient endorsed a plan to avoid all drugs of abuse and follow-up with the aftercare recommendations of the treatment team. Patient was evaluated and deemed to be absent credible lethality, and had achieved the maximum benefit from an inpatient hospitalization, so was discharged. He was found to have pulmonary embolisms and is on Eliquis. He was initially refusing treatment but then accepted treatment. He says that he was told that his heart was only 35% effective. There is a perfusion scan which shows his ejection fraction is 66% and the results says that he has normal left ventricular function. He was admitted to the neuropsychiatry unit for definitive treatment of his problems. He says that he did not intend to harm himself. He says he has not had any depression or suicidal ideation recently. He has been on Suboxone 8-2 twice a day for the last 5 years. He says when he has access to Suboxone he does not use opiates. This past summer he started using Imodium at 144-200 tablets every third day to get an opiate effect. He said that he was not on clonazepam or other psychotropic medications when he was doing that. He says that he did not try to kill himself but took 200 mg of Imodium in order to get an opiate effect. He says that he took 1 extra clonazepam and he is attributing that to his becoming unresponsive and so ill. That does not seem logical but possibly if he took 27 clonazepam and extra trazodone could have caused that result. He says that when he takes the Thorazine 50 mg 3 times a day it works very well and he does not hear voices. He says that he has tried Geodon and Invega without benefit. He said the Latuda made him happy but caused his muscles to stretch. He liked the effect otherwise. Abilify caused him to feel like he was on uppers. He took Zyprexa to help him sleep when he was in a psychiatric hospital as a child for 4 months. He does not believe he has taken it since then. He has not been sleeping well. He is willing to change his Thorazine to bedtime along with 100 mg of trazodone. He wants to restart the Suboxone and will discontinue his current opiate so that he will be on withdrawal tomorrow. He also said that he would agree to try a very low-dose of Vraylar. Meds NPU Home Medications Medication Instructions Recorded Confirmed Last Taken Type bisacodyl 10 mg PO DAILY PRN 30 Days #60 tab 02/09/21 02/13/21 Unknown Rx chlorpromazine 50 mg PO TID 30 Days #240 tab 02/09/21 02/13/21 Unknown Rx eszopiclone [Lunesta] 1 mg PO BEDTIME 30 Days #30 tab 02/09/21 02/13/21 Unknown Rx hydroxyzine pamoate 50 mg PO Q6H PRN 30 Days #180 cap 02/09/21 02/13/21 Unknown Rx pantoprazole 40 mg PO BID 30 Days #60 tab 02/09/21 02/13/21 Unknown Rx trazodone 100 mg PO BEDTIME PRN 30 Days #30 02/09/21 02/13/21 Unknown Rx tab clonazepam 0.5 mg PO BID@02/13/21 02/13/21 Unknown History Allergies Allergy/AdvReac Type Severity Reaction Status Date / Time mushroom Allergy Unknown Unknown Verified 01/09/21 08:19 escitalopram [From Lexapro] Allergy ALGY-Anaphy Verified 01/09/21 08:19 laxis NSAIDS (Non-Steroidal Allergy ADR-Abdominal Verified 01/09/21 08:19 Anti-Inflamma Pain venlafaxine [From Effexor] Allergy ALGY-Anaphy Verified 01/09/21 08:19 laxis PFSH NPU PFSH: Medical History (Updated 02/14/21 @ 17:18 by Tab Colunga MD) Opiate misuse Schizophrenia Suicide attempt Ulcerative colitis Surgical History History of appendectomy Social History Smoking and tobacco status: current every day smoker Alcohol intake: never Mental Status Exam MSE Comments: This is a 35-year old overweight male who appears approximately his stated age and is in no acute distress. He is dressed in hospital scrubs and fairly well groomed. psychomotor activity is normal. Speech is at a regular rate and rhythm, normal volume, good articulation, not pressured. Alert, oriented X3 Attention and concentration appears to be good. Memory is intact Mood is good. Affect is euthymic. Thought process is logical and goal-directed. Thought content: Denies auditory and visual hallucinations. No delusions or paranoia are noted. No current suicidal ideation, and no homicidal ideation. Fund of knowledge is normal. Insight and judgment appear to be limited. Impulse control is limited. Vitals/I&O/Wt Last Vital Signs Temp 98.3 F 02/18/21 17:37 Pulse 82 02/19/21 06:00 Resp 16 02/19/21 11:53 BP 97/66 02/19/21 08:07 Pulse Ox 97 02/19/21 06:00 Weight last 48 hrs Weight 95.878 kg Weight 95.878 kg Physical Exam Urinary Catheter Management^: García: Cath Placed During This Visit: yes, but has since been removed by the nurse Reason for Continuing Indwelling Catheter: Decision to DC Catheter Urinary Catheter Date of Insertion: 02/13/21 Date Urinary Catheter Removed: 02/14/21 Time Urinary Catheter Discontinued: 10:54 Data NPU : 02/17/21 03:19 02/17/21 03:19 A&P Assessment and plan (1) Schizophrenia: Status: Acute (2) Drug overdose, intentional: Status: Acute Qualifiers: Encounter type: initial encounter Qualified Code(s): T50.902A - Poisoning by unspecified drugs, medicaments and biological substances, intentional self-harm, initial encounter Additional A&P Information This is a 35-year-old male with long history of schizophrenia and many hospitalizations with suicide attempts. He appears to have attempted suicide again however he denies it at this time. Plan: 1. We will change his Thorazine to all at bedtime with trazodone to help with sleep. We will discontinue his oxycodone and restart his Suboxone tomorrow when he is in withdrawal. We will try him on a low-dose of Vraylar and see if that will be more effective for his depression. 2. Continue every 15 minute checks for safety. 3. Encourage individual, group and milieu therapies. 4. Encourage sober living treatment after discharge at the highest level of care to which he is willing to commit. 5. We will monitor for safety for himself in the community prior to discharge. Involuntary Hold Information 96 Hour Hold: 96 Hour Involuntary Admission: No 96 Hour Hold Ending Date: 01/30/21 96 Hour Hold Ending Time: 00:01 Attestations NPU Medical Necessity Statement*: Inpatient hospitalization is medically necessary and the clinically appropriate intervention at this time. We will initiate medications and make changes as indicated. He will be in the hospital for over 2 midnights. 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
[2021-02-19] MEDS: buprenorphine-naloxone 4-1 mg Film 2 EACH SUBLINGUAL (17:01)
[2021-02-19] MEDS: CLONazepam 0.5 mg Tablet PO (20:34)
[2021-02-19] MEDS: trazodone 50 mg Tablet PO (20:34)
[2021-02-20 06:00] VITALS: RESP 16
--- NOTE | 2021-02-20 07:42 | W.PM.NPUPNS ---
Subjective NPU Subjective: Interval history: He was given the buprenorphine last night despite being on hold. He said he had some diarrhea but no other symptoms of withdrawal. He is good this morning. He slept well last night without any Thorazine. He requested that Thorazine be put in for tonight. He also asked about the Vraylar and we will start that tomorrow or the next day. Our pharmacy does not carry it and we will need to order it. He denies having any suicidal thoughts since he has been here. Mental Status Exam MSE Comments: This is a 35-year old overweight male who appears approximately his stated age and is in no acute distress. He is dressed in hospital scrubs and fairly well groomed. psychomotor activity is normal. Speech is at a regular rate and rhythm, normal volume, good articulation, not pressured. Alert, oriented X3 Attention and concentration appears to be good. Memory is intact Mood is good. Affect is euthymic. Thought process is logical and goal-directed. Thought content: Denies auditory and visual hallucinations. No delusions or paranoia are noted. No current suicidal ideation, and no homicidal ideation. Fund of knowledge is normal. Insight and judgment appear to be limited. Impulse control is limited. Cognition: Patient Appearance: Disheveled/Poor Hygiene Level of Consciousness: Sedated Patient Cognition Impaired: Yes Ability to Follow Directions: Fair Patient Orientation (long list): Person, Place, Name, Age and Birthday Comprehension Ability: No Impairment Hallucination Type: None Delusion Description: Not Present and Grandiose Affect: Affect Description: Calm and Flat Behavior: Patient Behavior: Cooperative Speech Pattern: Clear Vitals/I&O/Wt Last Vital Signs Temp 98.2 F 02/19/21 20:16 Pulse 77 02/19/21 20:16 Resp 16 02/20/21 06:00 BP 131/75 02/19/21 20:16 Pulse Ox 96 02/19/21 20:16 Weight last 48 hrs Weight 95.878 kg Physical Exam Urinary Catheter Management^: García: Cath Placed During This Visit: yes, but has since been removed by the nurse Reason for Continuing Indwelling Catheter: Decision to DC Catheter Urinary Catheter Date of Insertion: 02/13/21 Date Urinary Catheter Removed: 02/14/21 Time Urinary Catheter Discontinued: 10:54 Data NPU : 02/17/21 03:19 02/17/21 03:19 A&P Assessment and plan (1) Schizophrenia: This is a 35-year-old male with schizophrenia and multiple admissions recently for suicidal ideation and attempts. He needs to be admitted to the neuropsychiatry unit but is currently not completely out of altered mental status due to his overdose. Hopefully he will be ready for transfer to neuropsychiatry when medically cleared. Status: Acute (2) Drug overdose, intentional: Status: Acute Qualifiers: Encounter type: initial encounter Qualified Code(s): T50.902A - Poisoning by unspecified drugs, medicaments and biological substances, intentional self-harm, initial encounter Additional A&P Information This is a 35-year-old male with long history of schizophrenia and many hospitalizations with suicide attempts. He appears to have attempted suicide again however he denies it at this time. Plan: 1. We will change his Thorazine to all at bedtime with trazodone to help with sleep. Suboxone 8-2 twice a day. we will try him on a low-dose of Vraylar and see if that will be more effective for his depression. 2. Continue every 15 minute checks for safety. 3. Encourage individual, group and milieu therapies. 4. Encourage sober living treatment after discharge at the highest level of care to which he is willing to commit. 5. We will monitor for safety for himself in the community prior to discharge. Involuntary Hold Information 96 Hour Hold: 96 Hour Involuntary Admission: No 96 Hour Hold Ending Date: 01/30/21 96 Hour Hold Ending Time: 00:01 Attestations NPU Medical Necessity Statement*: Inpatient hospitalization is medically necessary and the clinically appropriate intervention at this time. We will initiate medications and make changes as indicated. 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
[2021-02-20 08:40] VITALS: BP 131/75
[2021-02-20] MEDS: carvedilol 3.125 mg Tablet PO ×2 (08:40→17:16)
[2021-02-20] MEDS: CLONazepam 0.5 mg Tablet PO ×2 (08:40→20:32)
[2021-02-20] MEDS: losartan 50 mg Tablet 25 MG PO (08:40)
[2021-02-20] MEDS: buprenorphine-naloxone 4-1 mg Film 2 EACH SUBLINGUAL ×2 (08:40→20:34)
[2021-02-20] MEDS: nicotine 2 mg Gum BUCCAL ×6 (08:41→20:33)
[2021-02-20] MEDS: apixaban 5 mg Tablet 10 MG PO ×2 (08:41→20:30)
[2021-02-20] MEDS: pantoprazole DR 40 mg Tablet PO (08:41)
[2021-02-20] MEDS: spironolactone 25 mg Tablet PO (08:41)
[2021-02-20] MEDS: loperamide 2 mg Capsule PO ×2 (09:41→14:29)
[2021-02-20] MEDS: aspirin 81 mg Chew Tablet PO (09:42)
[2021-02-20] MEDS: hyDROXYzine 25 mg Capsule 50 MG PO ×2 (11:10→17:16)
[2021-02-20 14:00] VITALS: BP 103/69; PULSE 64; RESP 16; TEMP 36.4; O2SAT 98
[2021-02-20 20:09] VITALS: BP 97/73; PULSE 101; RESP 18; TEMP 36.7; O2SAT 97
[2021-02-20] MEDS: chlorPROMazine 50 mg Tablet 150 MG PO (21:10)
[2021-02-20] MEDS: trazodone 100 mg Tablet PO (21:11)
[2021-02-21 06:00] VITALS: RESP 16
[2021-02-21 09:58] VITALS: BP 97/73
[2021-02-21] MEDS: CLONazepam 0.5 mg Tablet PO ×2 (09:58→20:55)
[2021-02-21] MEDS: spironolactone 25 mg Tablet PO (09:58)
[2021-02-21] MEDS: carvedilol 3.125 mg Tablet PO ×2 (09:58→17:16)
[2021-02-21] MEDS: losartan 50 mg Tablet 25 MG PO (09:58)
[2021-02-21] MEDS: buprenorphine-naloxone 4-1 mg Film 2 EACH SUBLINGUAL ×2 (09:59→20:55)
[2021-02-21] MEDS: pantoprazole DR 40 mg Tablet PO (09:59)
[2021-02-21] MEDS: aspirin 81 mg Chew Tablet PO (09:59)
[2021-02-21] MEDS: nicotine 2 mg Gum BUCCAL ×5 (10:03→20:55)
--- NOTE | 2021-02-21 10:29 | W.PM.NPUPNS ---
Subjective NPU Subjective: Interval history: He says that he continues to do well. He continues to deny any depression or suicidal ideation. The Suboxone is working well and he does not have urges to use opiates. I was hoping to try some Vraylar with that will not be available until Tuesday at the earliest. He agreed to wait until Tuesday morning to leave. Mental Status Exam MSE Comments: This is a 35-year old overweight male who appears approximately his stated age and is in no acute distress. He is dressed in hospital scrubs and fairly well groomed. psychomotor activity is normal. Speech is at a regular rate and rhythm, normal volume, good articulation, not pressured. Alert, oriented X3 Attention and concentration appears to be good. Memory is intact Mood is good. Affect is euthymic. Thought process is logical and goal-directed. Thought content: Denies auditory and visual hallucinations. No delusions or paranoia are noted. No current suicidal ideation, and no homicidal ideation. Fund of knowledge is normal. Insight and judgment appear to be limited. Impulse control is limited. Cognition: Patient Appearance: Disheveled/Poor Hygiene Level of Consciousness: Sedated Patient Cognition Impaired: Yes Ability to Follow Directions: Fair Patient Orientation (long list): Person, Place, Name, Age and Birthday Comprehension Ability: No Impairment Hallucination Type: None Delusion Description: Not Present and Grandiose Thought Process: Logical Affect: Affect Description: Appropriate and Calm Behavior: Patient Behavior: Appropriate and Cooperative Speech Pattern: Appropriate and Clear Vitals/I&O/Wt Last Vital Signs Temp 98.0 F 02/20/21 20:09 Pulse 101 H 02/20/21 20:09 Resp 16 02/21/21 06:00 BP 97/73 02/21/21 09:58 Pulse Ox 97 02/20/21 20:09 Physical Exam Urinary Catheter Management^: García: Cath Placed During This Visit: yes, but has since been removed by the nurse Reason for Continuing Indwelling Catheter: Decision to DC Catheter Urinary Catheter Date of Insertion: 02/13/21 Date Urinary Catheter Removed: 02/14/21 Time Urinary Catheter Discontinued: 10:54 Data NPU : 02/17/21 03:19 02/17/21 03:19 A&P Assessment and plan (1) Schizophrenia: Status: Acute (2) Drug overdose, intentional: Status: Acute Qualifiers: Encounter type: initial encounter Qualified Code(s): T50.902A - Poisoning by unspecified drugs, medicaments and biological substances, intentional self-harm, initial encounter Additional A&P Information This is a 35-year-old male with long history of schizophrenia and many hospitalizations with suicide attempts. He appears to have attempted suicide again however he denies it at this time. Plan: 1. continue Thorazine to all at bedtime with trazodone to help with sleep. Suboxone 8-2 twice a day. we will try him on a low-dose of Vraylar and see if that will be more effective for his depression. We cannot start that until Tuesday. 2. Continue every 15 minute checks for safety. 3. Encourage individual, group and milieu therapies. 4. Encourage sober living treatment after discharge at the highest level of care to which he is willing to commit. 5. We will monitor for safety for himself in the community prior to discharge. Involuntary Hold Information 96 Hour Hold: 96 Hour Involuntary Admission: No 96 Hour Hold Ending Date: 01/30/21 96 Hour Hold Ending Time: 00:01 Attestations NPU Medical Necessity Statement*: Inpatient hospitalization is medically necessary and the clinically appropriate intervention at this time. We will initiate medications and make changes as indicated. 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
[2021-02-21] MEDS: loperamide 2 mg Capsule PO (11:00)
[2021-02-21] MEDS: apixaban 5 mg Tablet 10 MG PO ×2 (13:05→20:55)
[2021-02-21 14:00] VITALS: BP 142/72; PULSE 88; RESP 16; TEMP 36.7; O2SAT 98
[2021-02-21] MEDS: hyDROXYzine 25 mg Capsule 50 MG PO (14:38)
[2021-02-21 20:33] VITALS: RESP 16
[2021-02-21] MEDS: chlorPROMazine 50 mg Tablet 150 MG PO (20:55)
[2021-02-21] MEDS: trazodone 100 mg Tablet PO (20:55)
[2021-02-22 06:00] VITALS: BP 77/52; PULSE 86; RESP 16; TEMP 36.6; O2SAT 98; BMI 29.5
[2021-02-22] MEDS: CLONazepam 0.5 mg Tablet PO ×2 (09:37→20:02)
[2021-02-22] MEDS: buprenorphine-naloxone 4-1 mg Film 2 EACH SUBLINGUAL ×2 (09:37→20:03)
[2021-02-22 09:38] VITALS: BP 77/52
[2021-02-22] MEDS: losartan 50 mg Tablet 25 MG PO (09:38)
[2021-02-22] MEDS: spironolactone 25 mg Tablet PO (09:38)
[2021-02-22] MEDS: aspirin 81 mg Chew Tablet PO (09:38)
[2021-02-22] MEDS: nicotine 2 mg Gum BUCCAL ×6 (09:38→22:29)
[2021-02-22] MEDS: carvedilol 3.125 mg Tablet PO (09:38)
[2021-02-22] MEDS: apixaban 5 mg Tablet 10 MG PO ×2 (09:38→20:00)
[2021-02-22] MEDS: pantoprazole DR 40 mg Tablet PO (09:38)
--- NOTE | 2021-02-22 10:21 | P.NPUPN_ITS ---
Subjective NPU Subjective: Interval history: He says that he continues to do well. He continues to deny auditory hallucinations or any suicidal ideation. He was told that we are very concerned that he did make a serious suicide attempt and that he will continue until he is eventually successful. He said that he understood and did not argue with that. However, he says that he actually damaged his body this time and does not want to try again and damaged his body further. He was told that he had promised not to try to kill himself in the past but then a few days later makes another attempt. He said he would like to try the Latuda again and see if he has side effects at this time. He said that he was in detox last time when he tried it and it potentially might not have the same side effects now. Mental Status Exam MSE Comments: This is a 35-year old overweight male who appears approximately his stated age and is in no acute distress. He is dressed in hospital scrubs and fairly well groomed. psychomotor activity is normal. Speech is at a regular rate and rhythm, normal volume, good articulation, not pressured. Alert, oriented X2 Attention and concentration appears to be good. Memory is intact Mood is good. Affect is euthymic. Thought process is logical and goal-directed. Thought content: Denies auditory and visual hallucinations. No delusions or paranoia are noted. He denies current suicidal ideation, and no homicidal ideation. Fund of knowledge is normal. Insight and judgment appear to be limited. Impulse control is limited. Cognition: Patient Appearance: Disheveled/Poor Hygiene Level of Consciousness: Sedated Patient Cognition Impaired: Yes Ability to Follow Directions: Fair Patient Orientation (long list): Person, Place, Name, Age and Birthday Comprehension Ability: No Impairment Hallucination Type: None Delusion Description: Not Present and Grandiose Thought Process: Logical Affect: Affect Description: Appropriate Behavior: Patient Behavior: Appropriate and Cooperative Speech Pattern: Appropriate and Clear Vitals/I&O/Wt Last Vital Signs Temp 97.9 F 02/22/21 06:00 Pulse 86 02/22/21 06:00 Resp 16 02/22/21 06:00 BP 77/52 02/22/21 09:38 Pulse Ox 98 02/22/21 06:00 Weight last 48 hrs Weight 95.878 kg Physical Exam 2 Urinary Catheter Management^: García: Cath Placed During This Visit: yes, but has since been removed by the nurse Reason for Continuing Indwelling Catheter: Decision to DC Catheter Urinary Catheter Date of Insertion: 02/13/21 Date Urinary Catheter Removed: 02/14/21 Time Urinary Catheter Discontinued: 10:54 Data NPU : 02/17/21 03:19 02/17/21 03:19 A&P Assessment and plan (1) Schizophrenia: Status: Acute (2) Drug overdose, intentional: Status: Acute Qualifiers: Encounter type: initial encounter Qualified Code(s): T50.902A - Poisoning by unspecified drugs, medicaments and biological substances, intentional self-harm, initial encounter Additional A&P Information This is a 35-year-old male with long history of schizophrenia and many hospita lizations with suicide attempts. He appears to have attempted suicide again however he denies it at this time. Plan: 1. continue Thorazine to all at bedtime with trazodone to help with sleep. Suboxone 8-2 twice a day. we will try him on Latuda until the Vraylar is available 2. Continue every 15 minute checks for safety. 3. Encourage individual, group and milieu therapies. 4. Encourage sober living treatment after discharge at the highest level of care to which he is willing to commit. 5. We will monitor for safety for himself in the community prior to discharge. Involuntary Hold Information 96 Hour Hold: 96 Hour Involuntary Admission: No 96 Hour Hold Ending Date: 01/30/21 96 Hour Hold Ending Time: 00:01 Attestations NPU Medical Necessity Statement*: Inpatient hospitalization is medically necessary and the clinically appropriate intervention at this time. We will initiate medications and make changes as indicated. 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
[2021-02-22] MEDS: hyDROXYzine 25 mg Capsule 50 MG PO (12:55)
[2021-02-22] MEDS: loperamide 2 mg Capsule PO (13:07)
[2021-02-22 14:00] VITALS: BP 101/71; PULSE 79; RESP 16; TEMP 36.6; O2SAT 98
--- NOTE | 2021-02-22 15:37 | PC.NURSE ---
Patient has been in good spirits today. Utilizing PRN meds as follows- Nicotine gum Vistaril for anxiety at 1255 to good effect. Loperamide for loose stool to good effect. Has been up and interacting well with others.
[2021-02-22] MEDS: lurasidone 20 mg Tablet PO (16:29)
[2021-02-22] MEDS: trazodone 100 mg Tablet PO (20:02)
[2021-02-22] MEDS: dicyclomine 10 mg Capsule PO (20:02)
[2021-02-22] MEDS: chlorPROMazine 50 mg Tablet 150 MG PO (20:05)
[2021-02-22 21:29] VITALS: BP 95/68; PULSE 93; RESP 18; TEMP 36.6; O2SAT 98
[2021-02-23 06:00] VITALS: BP 112/81; PULSE 75; RESP 18; TEMP 36.6; O2SAT 95
[2021-02-23 08:07] VITALS: BP 112/81
[2021-02-23] MEDS: pantoprazole DR 40 mg Tablet PO (08:07)
[2021-02-23] MEDS: buprenorphine-naloxone 4-1 mg Film 2 EACH SUBLINGUAL ×2 (08:07→20:44)
[2021-02-23] MEDS: carvedilol 3.125 mg Tablet PO ×2 (08:07→17:44)
[2021-02-23] MEDS: spironolactone 25 mg Tablet PO (08:07)
[2021-02-23] MEDS: aspirin 81 mg Chew Tablet PO (08:07)
[2021-02-23] MEDS: dicyclomine 10 mg Capsule PO ×4 (08:07→20:44)
[2021-02-23] MEDS: apixaban 5 mg Tablet 10 MG PO ×2 (08:07→20:40)
[2021-02-23] MEDS: nicotine 2 mg Gum BUCCAL ×4 (08:07→17:40)
[2021-02-23] MEDS: losartan 50 mg Tablet 25 MG PO (08:07)
[2021-02-23] MEDS: CLONazepam 0.5 mg Tablet PO ×2 (08:07→20:44)
--- NOTE | 2021-02-23 11:20 | W.PM.NPUPNS ---
Subjective NPU Subjective: Interval history: He said that he did not have any side effects from the Latuda last night. He said it really helped his mood and he is feeling in a better mood today. He said he would like to try 40 mg this evening. He said that the Thorazine at bedtime was helping him sleep better. He also said that his uncle was going to rent a machine from the pharmacy that would dispense his medications. If he did not take a dose that would take it back and make it unavailable. He said that if he tampered with it it would cost $10,000. Mental Status Exam MSE Comments: This is a 35-year old overweight male who appears approximately his stated age and is in no acute distress. He is dressed in hospital scrubs and fairly well groomed. psychomotor activity is normal. Speech is at a regular rate and rhythm, normal volume, good articulation, not pressured. Alert, oriented X2 Attention and concentration appears to be good. Memory is intact Mood is good. Affect is cheerful. Thought process is logical and goal-directed. Thought content: Denies auditory and visual hallucinations. No delusions or paranoia are noted. He denies current suicidal ideation, and no homicidal ideation. Fund of knowledge is normal. Insight and judgment appear to be limited. Impulse control is limited. Cognition: Patient Appearance: Disheveled/Poor Hygiene Level of Consciousness: Sedated Patient Cognition Impaired: Yes Ability to Follow Directions: Fair Patient Orientation (long list): Person, Place, Name, Age and Birthday Comprehension Ability: No Impairment Hallucination Type: None Delusion Description: Not Present and Grandiose Thought Process: Logical Affect: Affect Description: Anxious Behavior: Patient Behavior: Appropriate Speech Pattern: Appropriate Vitals/I&O/Wt Last Vital Signs Temp 97.8 F 02/23/21 06:00 Pulse 75 02/23/21 06:00 Resp 18 02/23/21 06:00 BP 112/81 02/23/21 08:07 Pulse Ox 95 02/23/21 06:00 Weight last 48 hrs Weight 95.878 kg Physical Exam Urinary Catheter Management^: García: Cath Placed During This Visit: yes, but has since been removed by the nurse Reason for Continuing Indwelling Catheter: Decision to DC Catheter Urinary Catheter Date of Insertion: 02/13/21 Date Urinary Catheter Removed: 02/14/21 Time Urinary Catheter Discontinued: 10:54 Data NPU : 02/17/21 03:19 02/17/21 03:19 A&P Assessment and plan (1) Schizophrenia: Status: Acute (2) Drug overdose, intentional: Status: Acute Qualifiers: Encounter type: initial encounter Qualified Code(s): T50.902A - Poisoning by unspecified drugs, medicaments and biological substances, intentional self-harm, initial encounter Additional A&P Information This is a 35-year-old male with long history of schizophrenia and many hospitalizations with suicide attempts. He appears to have attempted suicide again however he denies it at this time. Plan: 1. continue Thorazine to all at bedtime with trazodone to help with sleep. Suboxone 8-2 twice a day. Increase Latuda to 40 mg at dinner. 2. Continue every 15 minute checks for safety. 3. Encourage individual, group and milieu therapies. 4. Encourage sober living treatment after discharge at the highest level of care to which he is willing to commit. 5. We will monitor for safety for himself in the community prior to discharge. Involuntary Hold Information 96 Hour Hold: 96 Hour Involuntary Admission: No 96 Hour Hold Ending Date: 01/30/21 96 Hour Hold Ending Time: 00:01 Attestations NPU Medical Necessity Statement*: Inpatient hospitalization is medically necessary and the clinically appropriate intervention at this time. We will initiate medications and make changes as indicated. 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
[2021-02-23] MEDS: hyDROXYzine 25 mg Capsule 50 MG PO (12:18)
--- NOTE | 2021-02-23 13:53 | NPU.GN ---
[facility] Topic:Group Topic:Coping Mechanisms General Mood of Group:Shayan did attend group today and he participated. He was social but jovel. He got rude a few times with others in group and this technical publications writer. This technical publications writer talked to him about his demeanor towards others and he apologized. Shayan hygiene was poor this morning.
[2021-02-23 14:00] VITALS: BP 116/88; PULSE 88; RESP 16; TEMP 36.8; O2SAT 96
[2021-02-23] MEDS: acetaminophen 325 mg Tablet 650 MG PO (15:13)
[2021-02-23] MEDS: lurasidone 20 mg Tablet 40 MG PO (16:39)
[2021-02-23] MEDS: trazodone 100 mg Tablet PO (20:43)
[2021-02-23] MEDS: chlorPROMazine 50 mg Tablet 150 MG PO (20:48)
[2021-02-23 21:02] VITALS: BP 98/65; PULSE 82; RESP 16; O2SAT 97
[2021-02-24 06:00] VITALS: RESP 18
[2021-02-24] MEDS: apixaban 5 mg Tablet 10 MG PO ×2 (08:16→20:48)
[2021-02-24] MEDS: aspirin 81 mg Chew Tablet PO (08:16)
[2021-02-24 08:17] VITALS: BP 98/65
[2021-02-24] MEDS: nicotine 2 mg Gum BUCCAL ×5 (08:17→20:48)
[2021-02-24] MEDS: dicyclomine 10 mg Capsule PO ×4 (08:17→20:48)
[2021-02-24] MEDS: pantoprazole DR 40 mg Tablet PO (08:17)
[2021-02-24] MEDS: losartan 50 mg Tablet 25 MG PO (08:17)
[2021-02-24] MEDS: spironolactone 25 mg Tablet PO (08:17)
[2021-02-24] MEDS: CLONazepam 0.5 mg Tablet PO ×2 (08:19→20:48)
[2021-02-24] MEDS: buprenorphine-naloxone 4-1 mg Film 2 EACH SUBLINGUAL ×2 (09:32→20:48)
[2021-02-24] MEDS: carvedilol 3.125 mg Tablet PO ×2 (09:32→18:31)
--- NOTE | 2021-02-24 12:17 | W.PM.NPUPNS ---
Subjective NPU Subjective: Interval history: He says that he did not have any side effects from the Latuda 40 mg last night. He said that it has lifted his mood. He has not had any dark moods since he has been taking it. He says that he is also sleeping better and wakes up feeling better. He is optimistic that he can do better and not have thoughts of hurting himself. He talked again about the machine that his uncle was getting to lock up his medications so that he cannot have access to them. He feels like he will be ready for discharge tomorrow. We also talked about him in the team meeting this morning and the team also feels like he is as ready as he will be. We understand that he is not completely honest about his thoughts of wanting to hurt himself but understand there is not much we can do about that. He has seemed to be bright and in a fairly good mood. Mental Status Exam MSE Comments: This is a 35-year old overweight male who appears approximately his stated age and is in no acute distress. He is dressed in hospital scrubs and fairly well groomed. psychomotor activity is normal. Speech is at a regular rate and rhythm, normal volume, good articulation, not pressured. Alert, oriented X2 Attention and concentration appears to be good. Memory is intact Mood is good. Affect is cheerful. Thought process is logical and goal-directed. Thought content: Denies auditory and visual hallucinations. No delusions or paranoia are noted. He denies current suicidal ideation, and no homicidal ideation. Fund of knowledge is normal. Insight and judgment appear to be limited. Impulse control is limited. Cognition: Patient Appearance: Disheveled/Poor Hygiene Level of Consciousness: Sedated Patient Cognition Impaired: Yes Ability to Follow Directions: Fair Patient Orientation (long list): Person, Place, Name, Age and Birthday Comprehension Ability: No Impairment Hallucination Type: None Delusion Description: Not Present and Grandiose Thought Process: Logical Affect: Affect Description: Appropriate and Calm Behavior: Patient Behavior: Appropriate and Cooperative Speech Pattern: Appropriate and Clear Vitals/I&O/Wt Last Vital Signs Temp 98.2 F 02/23/21 14:00 Pulse 82 02/23/21 21:02 Resp 18 02/24/21 06:00 BP 98/65 02/24/21 08:17 Pulse Ox 97 02/23/21 21:02 Physical Exam Urinary Catheter Management^: García: Cath Placed During This Visit: yes, but has since been removed by the nurse Reason for Continuing Indwelling Catheter: Decision to DC Catheter Urinary Catheter Date of Insertion: 02/13/21 Date Urinary Catheter Removed: 02/14/21 Time Urinary Catheter Discontinued: 10:54 Data NPU : 02/17/21 03:19 02/17/21 03:19 A&P Assessment and plan (1) Schizophrenia: This is a 35-year-old male with schizophrenia and multiple admissions recently for suicidal ideation and attempts. He needs to be admitted to the neuropsychiatry unit but is currently not completely out of altered mental status due to his overdose. Hopefully he will be ready for transfer to neuropsychiatry when medically cleared. Status: Acute (2) Drug overdose, intentional: Status: Acute Qualifiers: Encounter type: initial encounter Qualified Code(s): T50.902A - Poisoning by unspecified drugs, medicaments and biological substances, intentional self-harm, initial encounter Additional A&P Information This is a 35-year-old male with long history of schizophrenia and many hospitalizations with suicide attempts. He appears to have attempted suicide again however he denies it at this time. Plan: 1. continue Thorazine to all at bedtime with trazodone to help with sleep. Suboxone 8-2 twice a day. Latuda to 40 mg at dinner. 2. Continue every 15 minute checks for safety. 3. Encourage individual, group and milieu therapies. 4. Encourage sober living treatment after discharge at the highest level of care to which he is willing to commit. 5. We will monitor for safety for himself in the community prior to discharge. Involuntary Hold Information 96 Hour Hold: 96 Hour Involuntary Admission: No 96 Hour Hold Ending Date: 01/30/21 96 Hour Hold Ending Time: 00:01 Attestations NPU Medical Necessity Statement*: Inpatient hospitalization is medically necessary and the clinically appropriate intervention at this time. We will initiate medications and make changes as indicated. 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
[2021-02-24] MEDS: hyDROXYzine 25 mg Capsule 50 MG PO (12:37)
--- NOTE | 2021-02-24 13:11 | NPU.GN ---
[facility] Topic:Depression Bingo General Mood of Group Shayan did attend group this morning. He was social but did not groom.
[2021-02-24] MEDS: loperamide 2 mg Capsule PO (13:35)
[2021-02-24 14:00] VITALS: BP 99/64; PULSE 92; RESP 16; TEMP 36.3; O2SAT 97
[2021-02-24] MEDS: lurasidone 20 mg Tablet 40 MG PO (16:51)
[2021-02-24] MEDS: ondansetron 4 MG Tablet PO (16:51)
--- NOTE | 2021-02-24 19:57 | PM.PN ---
Subjective Subjective: Interval history: Patient denies any significant chest pain or unusual shortness of breath. No fever or chills. No cough. Medications: Reviewed: Yes Medication Review Details: Current Medications Acetaminophen (Acetaminophen 325 Mg Tablet) 650 mg PO Q4H PRN PRN Reason: MILD PAIN Last Admin: 02/23/21 15:13 Dose: 650 mg Documented by: Apixaban (Apixaban 5 Mg Tablet) 10 mg PO BID@0900,2099 [facility] Last Admin: 02/24/21 08:16 Dose: 10 mg Documented by: Aspirin (Aspirin 81 Mg Chew Tablet) 81 mg PO DAILY [facility] Last Admin: 02/24/21 08:16 Dose: 81 mg Documented by: Benztropine Mesylate (Benztropine 1 Mg Tablet) 1 mg PO BID PRN PRN Reason: Mild Extrapyramidal symptoms Bisacodyl (Bisacodyl 5 Mg Tablet) 10 mg PO DAILY PRN PRN Reason: Constipation (see protocol) Buprenorphine/Naloxone (Buprenorphine-Naloxone 4-1 Mg Film) 2 each SUBLINGUAL 899,2099 [facility] Last Admin: 02/24/21 09:32 Dose: 2 each Documented by: Camphor/Menthol/Phenol (Blistex Lip Oint 7 Gm Tube) 1 applic TOPICAL Q1H PRN PRN Reason: DRYNESS Carvedilol (Carvedilol 3.125 Mg Tablet) 3.125 mg PO BID [facility] Last Admin: 02/24/21 18:31 Dose: 3.125 mg Documented by: Chlorpromazine HCl (Chlorpromazine 50 Mg Tablet) 150 mg PO BEDTIME [facility] Last Admin: 02/23/21 20:48 Dose: 150 mg Documented by: Clonazepam (Clonazepam 0.5 Mg Tablet) 0.5 mg PO BID@ [facility] Last Admin: 02/24/21 08:19 Dose: 0.5 mg Documented by: Dicyclomine HCl (Dicyclomine 10 Mg Capsule) 10 mg PO QID [facility] Last Admin: 02/24/21 16:51 Dose: 10 mg Documented by: Diphenhydramine HCl (Diphenhydramine 50 Mg/Ml Sdv 1ml) 50 mg IM ONCE PRN PRN Reason: Severe Extrapyramidal Symptoms Diphenhydramine HCl (Diphenhydramine 50 Mg/Ml Sdv 1ml) 50 mg IM Q4H PRN PRN Reason: Severe Aggression Haloperidol (Haloperidol 5 Mg Tablet) 5 mg PO Q4H PRN PRN Reason: AGITATION Haloperidol Lactate (Haloperidol Inj 5 Mg/Ml Inj 1 Ml) 5 mg IM Q4H PRN PRN Reason: Severe Aggression Hydroxyzine Pamoate (Hydroxyzine 25 Mg Capsule) 50 mg PO Q6H PRN PRN Reason: ANXIETY Last Admin: 02/24/21 12:37 Dose: 50 mg Documented by: Loperamide HCl (Loperamide 2 Mg Capsule) 2 mg PO Q6H PRN PRN Reason: DIARRHEA Last Admin: 02/24/21 13:35 Dose: 2 mg Documented by: Lorazepam (Lorazepam 2 Mg/Ml Inj 1 Ml) 2 mg IM Q4H PRN PRN Reason: Severe Aggression Losartan Potassium (Losartan 50 Mg Tablet) 25 mg PO DAILY [facility] Last Admin: 02/24/21 08:17 Dose: 25 mg Documented by: Lurasidone HCl (Lurasidone 20 Mg Tablet) 40 mg PO 1700 [facility] Last Admin: 02/24/21 16:51 Dose: 40 mg Documented by: Nicotine (Nicotine 21 Mg Patch) 1 patch TRANSDERMA DAILY PRN PRN Reason: NICOTINE WITHDRAWAL Nicotine Polacrilex (Nicotine 2 Mg Gum) 2 mg BUCCAL Q2H PRN PRN Reason: NICOTINE WITHDRAWAL Last Admin: 02/24/21 18:31 Dose: 2 mg Documented by: Olanzapine (Olanzapine 5 Mg Odt) 5 mg PO Q4H PRN PRN Reason: Agitation/Psychosis Ondansetron HCl (Ondansetron 4 Mg Tablet) 4 mg PO Q6H PRN PRN Reason: NAUSEA AND VOMITING Last Admin: 02/24/21 16:51 Dose: 4 mg Documented by: Pantoprazole Sodium (Pantoprazole Dr 40 Mg Tablet) 40 mg PO DAILY [facility] Last Admin: 02/24/21 08:17 Dose: 40 mg Documented by: Simethicone (Simethicone 40 Mg/0.6 Ml Bottle 30ml) 40 mg PO QID PRN PRN Reason: FLATULENCE Last Admin: 02/15/21 13:02 Dose: 0.6 ml Documented by: Spironolactone (Spironolactone 25 Mg Tablet) 25 mg PO DAILY [facility] Last Admin: 02/24/21 08:17 Dose: 25 mg Documented by: Trazodone HCl (Trazodone 100 Mg Tablet) 100 mg PO BEDTIME PRN PRN Reason: Insomnia Last Admin: 02/23/21 20:43 Dose: 100 mg Documented by: Vitals/I&O/Wt Last Vital Signs Temp 97.4 F L 02/24/21 14:00 Pulse 92 02/24/21 14:00 Resp 16 02/24/21 14:00 BP 99/64 02/24/21 14:00 Pulse Ox 97 02/24/21 14:00 Physical Exam Narrative: EXAM NARRATIVE: GENERAL: The patient is alert and oriented x2 HEENT: No significant pallor, icterus or lymphadenopathy.Oral cavity: There are no mucous membrane lesions. NECK: Trachea appears to be central. No masses noted. No JVD or thyromegaly appreciated. RESPIRATORY: Chest is symmetrical. No intercostals muscle retraction or any accessory muscle activation. There is no chest wall tenderness. Breath sounds are heard bilaterally. No rales or rhonchi heard. No evidence of any consolidation. BREASTS: Deferred. HEART: The heart sounds are normal. No S3 or S4. No significant murmurs. No pericardial rub ABDOMEN: No vessel pulsations or distention. No tenderness. No organomegaly appreciated. Bowel sounds are normally heard. : Deferred. RECTAL: Deferred. LYMPHATIC: No lymphadenopathy noted in the neck or groin. EXTREMITIES: No edema or cyanosis. MUSCULOSKELETAL: No acute joint deformities or swelling SKIN: There are no significant rashes or ecchymosis NEUROPSYCHIATRIC: Patient is intubated and sedated. Urinary Catheter Management^: García: Cath Placed During This Visit: yes, but has since been removed by the nurse Reason for Continuing Indwelling Catheter: Decision to DC Catheter Urinary Catheter Date of Insertion: 02/13/21 Date Urinary Catheter Removed: 02/14/21 Time Urinary Catheter Discontinued: 10:54 Data : 02/17/21 03:19 02/17/21 03:19 A&P Assessment and plan (1) Elevated troponin: Elevated troponin most likely related to type II myocardial infarction. The EKG changes are nonspecific. Status: Acute (2) Non-ischemic cardiomyopathy: Patient currently seems to be stable. No evidence of any cardiac decompensation. The myocardial perfusion imaging was unremarkable. I may go ahead and do a repeat limited 2D echocardiogram to reevaluate LV ejection fraction. If he continues to have LV ejection fraction less than 35%, we may consider LifeVest Status: Acute (3) QT prolongation: Currently the QTC is 443 from 02/17/2021. Likely it was medication induced. Status: Acute (4) Drug overdose, intentional: Management as per the primary. Status: Acute Qualifiers: Encounter type: initial encounter Qualified Code(s): T50.902A - Poisoning by unspecified drugs, medicaments and biological substances, intentional self-harm, initial encounter (5) Altered mental status: Significant improvement of the mental status Status: Acute Qualifiers: Altered mental status type: coma Coma depth: Ryan coma 3-8 Coma timing: at arrival to emergency department Qualified Code(s): R40.2432 - [place] coma scale score 3-8, at arrival to emergency department (6) Pulmonary embolism: Patient is on Eliquis. Status: Acute Qualifiers: Acute cor pulmonale presence: without acute cor pulmonale Chronicity: unspecified Pulmonary embolism type: other Qualified Code(s): I26.99 - Other pulmonary embolism without acute cor pulmonale Additional A&P Information Continue on the current medications for the time being. After reviewing the follow-up echocardiogram, further recommendations will be made. Attestations Medical Necessity Statement*: Disposition as per the primary Coding Level of Care Code Acute [employer] Engineer for g Fwd Diagnoses Elevated troponin R77.8 Non-ischemic cardiomyopathy I42.8 QT prolongation R94.31 Drug overdose, intentional T50.902A Encounter type: initial encounter Altered mental status R40.2432 Altered mental status type: coma Coma depth: Ryan coma 3-8 Coma timing: at arrival to emergency department Pulmonary embolism I26.99 Acute cor pulmonale presence: without acute cor pulmonale Chronicity: unspecified Pulmonary embolism type: other
[2021-02-24] MEDS: chlorPROMazine 50 mg Tablet 150 MG PO (20:47)
[2021-02-24] MEDS: trazodone 100 mg Tablet PO (20:48)
[2021-02-24 22:00] VITALS: RESP 16
[2021-02-25] MEDS: loperamide 2 mg Capsule PO (05:24)
[2021-02-25 06:00] VITALS: RESP 16
--- NOTE | 2021-02-25 07:52 | P.NPUDS_ITS ---
Diagnoses at Discharge Discharge Diagnosis (1) Elevated troponin: Status: Acute (2) Non-ischemic cardiomyopathy: Status: Acute (3) QT prolongation: Status: Acute (4) Drug overdose, intentional: Status: Acute Qualifiers: Encounter type: initial encounter Qualified Code(s): T50.902A - Poisoning by unspecified drugs, medicaments and biological substances, intentional self-harm, initial encounter (5) Altered mental status: Status: Acute Qualifiers: Altered mental status type: coma Coma depth: [place] coma 3-8 Coma timing: at arrival to emergency department Qualified Code(s): R40.2432 - [place] coma scale score 3-8, at arrival to emergency department (6) Pulmonary embolism: Status: Acute Qualifiers: Acute cor pulmonale presence: without acute cor pulmonale Chronicity: unspecified Pulmonary embolism type: other Qualified Code(s): I26.99 - Other pulmonary embolism without acute cor pulmonale Reason for Visit Reason for Visit: OD Brief History: HPI NPU History of Present Illness Shayan Dickson is a 35 year old male he was transferred from the ICU after a serious overdose attempt. They said he was almost successful this time. There is no discharge summary at this time. This is the report on admission: Shayan Dickson is a 35 year old male with PMH polysubstabnce abuse brought in by ambulanace after family noted he has taken multiple pills of clonidie and trazodone at home. Upon arrival patient was unresponsive, GCS 7, intubated for low GCS and airway protection. Noted to have clonus prior to intubation. Pos intubation he has been hypotensive, needing levophed @10. Currently on mechanical ventilation, sedated with propofol and fentanyl. No futher history available at this time. Diagnostics show mild leukocytosis, elevated trop >100, rigth side PE I think that should have been clonazepam instead of clonidine. They found that there were 27 clonazepam pills missing from his bottle. His family said that he had also taken at least 6 trazodone. He has been admitted here several times. The following is the HPI from the most recent hospitalization. The discharge summary has not yet been done. History of Present Illness Shayan Dickson is a 35 year old male who presented to the emergency department with the following report: Chief Complaint: Psychiatric Symptoms Stated Complaint: N/V, DIARRHEA, BLOOD IN STOOL Time Seen by Provider: 01/25/21 08:16 History of Present Illness: HPI Narrative: Patient states that he was having a lot of hallucinations been going on for quite a while and he took his pills last night. Hard to determine how many pills are were. Patient said he threw up soon afterwards. He presents here with suicide attempt and with vital signs stable , conversing normally. Does not appear in any acute distress. Said he felt nauseated earlier in the morning hours. The suicide attempt happened approximately 8 hours ago. MD complaint: suicidal ideation and feels depressed Onset (ago): year(s) History of same: Yes Associated psychiatric symptoms: depression, suicidal ideation, auditory hallucinations and visual hallucinations Associated symptoms: Reports auditory hallucinations, visual hallucinations, depression and suicidal ideation. He was admitted to the ICU for definitive treatment of the sequela from his overdose. A psychiatric consult was requested. Shayan presents today appearing as he normally does on presentation. Significant laissez-faire for his circumstance. He had no real explanation for his behavior. There was no antecedent event or nidus for his suicide attempt. He just reported that I'm suicidal I guess. He denies any them but that his uncle's house. He continues to be isolated and does not have any friends. This intensive suicidal gesture somewhat like the last 1 has been atypical for his history as a psychiatric patient. He reports that his voices Geo Serrano. However we discussed concerns that this may be related to his cluster B pathology and outside of his cognitive appreciation. He denied any changes in his life certainly none since his discharge January 19, 2021. But he is appearing less and less safe outside of the hospital. An excerpt of his last discharge note is included below for context as he denies any substantive changes. Per his 01/19/2021 [facility] psychiatric discharge summary: SI - STATES ATTEMPT MADE Brief History: Shayan Dickson is a 35 year old male who presented to the emergency department with the following report: Chief Complaint: Overdose Stated Complaint: SI - STATES ATTEMPT MADE Time Seen by Provider: 01/09/21 06:58 History of Present Illness: HPI Narrative: 35-year-old male presents emergency room states he took 30 Ambien last night 10 mg tablets note for 5:00 this morning took 66 mg tablets of Invega. He did not feel like it was effective in his attempts to kill himself so he then ingested a razor blade that he had been using to try to cut his left wrist there is superficial abrasions on the left wrist. Denies any hematemesis coffee-ground emesis he has presented to our emergency room in the past with ingestion of razor blades. MD complaint: intentional overdose Onset (ago): hour(s). He was admitted to the hospital for definitive treatment of those issues which included going to the OR and getting the razor cartridge removed which has been a behavior he has done for multiple times without known him since 2018 and tablets of medications were also removed during that ER visit. He was then monitored in the ICU and then transferred to the neuropsychiatric unit for d efinitive treatment of those issues. Today he presents with very limited historical information and is not really interested in speaking to me today. He had no clear reasoning behind his behavior at this point but also was very resistant to the conversation. We discussed the plan to hold his medications at least for the next day or so until we see how he responds to the over dosing of those medications and agreed that we would go from there. An excerpt of his last hospitalization which occurred in November is included below for context. Per his 12/17/2020 [facility] inpatient psychiatric evaluation: History of Present Illness Shayan Dickson is a 35 year old male who presented to the ED with the following report: Chief Complaint: Psychiatric Symptoms Stated Complaint: SI Time Seen by Provider: 12/16/20 08:45 History of Present Illness: HPI Narrative: 35-year-old male presents emergency room stating take 80 tablets of aspirin last night around 2 PM yesterday which makes it about 20 hours ago. He took some other pills along with that that were not labeled. He does state he was trying to kill himself. He states he had auditory hallucinations of voices telling him to kill himself. He has not had any hematemesis or coffee-ground emesis no hematochezia no melena. He denies any dysuria urgency or frequency. He has tried to harm himself in the past. Evidently this was precipitated by some relationship issues. MD complaint: suicidal ideation and feels depressed Duration: constant History of same: Yes Relieving factors: none Exacerbating factors: none Context: not taking psychiatric medications and significant life stressor Associated psychiatric symptoms: depression, suicidal ideation, auditory hallucinations and visual hallucinations Associated symptoms: Reports auditory hallucinations, depression and suicidal ideation; Deny visual hallucinations, delusions, homicidal ideation or racing thoughts Treatments prior to arrival: none If self harm: admits thoughts of self harm, has plan and has acted on plan. Agreed to the neuropsychiatric unit for definitive treatment of those issues. 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 Excerpt of that note is included below for context and as he denies substantive changes. He does endorse however that he has not been back on his medication for reasons that he could not clarify. But he has been off of the medication and not doing as well he reports. He reports that his living arrangement is still fairly stable and he was worried that he was going continue with the suicidal thoughts he was having and so he went to come to the hospital, get restarted on his medication have his suicidality myron and get back on track overall with treatment. Part of his concern what some of the medication was helpful some of it he did not feel was. We agreed we would review his chart and try to get a sense of what direction we might go in the treatment particularly with bipolar disorder. Per his 09/11/2020 [facility] inpatient psychiatric evaluation: History of Present Illness Shayan Dickson is a 35 year old male who presented to the emergency department with the following report: Chief Complaint: Overdose Stated Complaint: SI Time Seen by Provider: 09/10/20 10:40 History of Present Illness: HPI Narrative: Patient is a 35-year-old male who comes to the ED with SI and overdose. Patient says around 5 AM today he took approximately 120 tablets of Tylenol p.m. to kill himself. Patient has history of schizophrenia. He states that he has been suicidal in the past and that currently he is hearing voices that are telling him to kill himself. He states he has been currently taking his psych meds as prescribed but over the last week he feels like they have been helping him. This past week he is hearing the voices more and more. He denies any visual hallucinations or HI. He endorses having a little bit of nausea currently but no other symptoms. Associated symptoms: Reports auditory hallucinations and suicidal ideation; Deny visual hallucinations or homicidal ideation. He was admitted to the neuropsychiatric unit for definitive treatment of those issues. Shayan presents today reporting that he had left ear over a year ago and went down to a friend's place in another state had been doing fairly well. He reports that his uncle started having problems never brought him back. He reports that the reason why he came in was that his voices were increasing and he needed to have some treatment for that. We reviewed his medications and the different ones he had been on identify something he could try. He reports the Zyprexa has been effective for him but that at some point after he left this with him over the Thorazine and the Thorazine stopping helpful. He also was very focused on Suboxone reporting that he is been taking it and he started to have withdrawal symptoms secondary to it not being prescribed. We were able to review his records and determined that he had not had an active prescription at this time. Explained to him our policy only prescribing Suboxone to people with active prescription he had already stated he had the medication available at home but then was very elusive about having somebody bring it to substantiate his claim that he has been taking less to preserve it as he tried to get an appointment. We discussed the risk-benefit alternatives of a trial of Geodon and he understood agreed proceed as documented in his note. He denied any substantive changes in his psychosocial history outside [place] so an excerpt from his previous note is included below. Per his 09/17/2019 [facility] inpatient psychiatric eval: History of Present Illness Shayan Dickson is a 34 year old male Shayan presented to the emergency room reporting a decompensation and wanting to secondary to running out of his medications. His report is that he had been taking his medications as prescribed but was not allowed to pick pack worker his medication secondary to something to do with his insurance, that he did not understand. He reports that the medications that had been started in his last hospitalization were working fine and he was feeling optimistic about things, continuing to go in the right direction and improve, but as he got further away from them not being able to refill his medications, he started feeling worse and worse, and now he just reports that he is fed up with life and wanting to kill himself. He was admitted to the neuro- psychiatric unit for definitive treatment of those issues. We continued his current medications and agreed to do some investigation into his medications which were discontinued secondary to availability to make sure that it is not something that will prevent that in the future as well. We agreed that if we were able to identify that it was a glitch, that we would restart those medications and if we identify that it was going to be a problem moving forward, we would attempt an alternative treatment plan. He understood and agreed to proceed as is documented in this note. We reviewed his last hospitalization record from 06-25-19 and he denied any substantive changes since that time. An excerpt of that evaluation is included below. Per his last [facility] IP eval 06/25/2019: HPI NPU History of Present Illness Shayan Dickson is a 34 year old male who presents today reporting that he is doing okay. He reports that his Zyprexa was discontinued, but he could give no explanation for why that was the case. We discussed his repeat behavior from October of last year which was swallowing the ends of a couple BIC razors, which had already been used, and were fairly dull in this reported suicide attempt. He could not move away from the fact that it was a real and valid attempt and not some kind of gesture. He reported that he thought that if he took those that they would slice him but to be clear these were not actual razorblades that were open. This was little plastic tops of cheap razors that had double blades in them, but they are kind of contained in the plastic so there is some risk, but not extreme risk. The surgeon went in and took them out and had them sent away for testing. We discussed the fact that he does have intellectual disability within special education classes in school, has limited functioning in that way. He continues to live with his uncle and his five dogs. He reports that he will never do this thing with the razors again. We talked about the fact that if he did in fact succeed, that his dogs would be left alone. He reported that he thought about that, but there seemed to be limited connectivity. We reviewed his most recent psychiatric evaluation here and he denied any substantive changes in the history or psychosocial circumstances. Per recent [facility] eval 05/17/2019: HPI NPU History of Present Illness Chief complaint: the voices are so bad that I'm going to kill myself. History of present illness: Shayan Dickson is a 34 year old male who tells an undocumented fairly reasonable story of a life lived suffering auditory hallucinations to varying degrees. When he is doing well, he will hear muttering voices that do not cause him a great deal of difficulty. He states that he seldom is free of the voices. 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 3 months ago, the voices began getting worse. He is has no theory as to why they have gotten worse. 3 weeks ago, they began getting intrusive to the point where he was willing to end his life just to free himself from the torture from these voices. He hears a number of different voices. He is able to interpret who they are. They are from important people in his life. These include a woman that he knows and Her boyfriend, his stepbrother and his . they Say demeaning things in a very loud manner. They tell him that he should and they tell him how he should kill himself. in spite of having struggled with during much of his life, he cannot give any guidance as to what interventions have been helpful. He said that he took lithium for a while and it was quite helpful. However it stopped working. It is noted that he was hospitalized here in October 2018 and was discharged on a combination of Suboxone, Zyprexa, and citalopram. He can give no assessment as to whether the Zyprexa helped him with his voices. He says that if the voices are reduced, he will no longr be suicidal. He is ambivalent about symptoms of depression. He says that he does not do anything enjoyable and simply passes this time when his phone and taking care of animals around his arm. He reports good sleep. He has no specific suicide plan this time. He said suicide thoughts were proceeded by the worsening of the voices. His urine drug screen is negative. He is actively taking the Suboxone and receives it from an outpatient therapist. However he has not continued his medications otherwise from discharge in October 2018. Mental health history: history of this patient was very difficult to acquire. He talks very rapidly and in the low mumbling fashion. His thoughts are mildly disorganized.he reports that originally he grew up in [place] and that at one point he left a rehabilitation program there and moved to [place]. He was only in [place] for 3 months when there were some financial difficulties and he came to the [facility] in 2010. He gives no further history regarding mental health care. It is noted that he can give no advisement regarding any other medication trials that have had any effect positive for negative on his auditory hallucinations. notes from his admission to this unit in October 2018: 11/13/2018 Shayan presents today reporting that the situation with his razor blade centered around his loss of his fianc?e. He reports that his significant other had committed suicide about 3 days shy of 2 years of when he made this suicide attempt before admission. He reports that he was feeling very low without feeling a clear sense of relief. And he had read online that he swallowed a razor blade that it would go through certain parts and because it was internal organs you would not feel it as it was slicing through things and that he would bleed out in his sleep. He reports that when he woke up and was alive but had a rectal bleeding he got really anxious and that when he came to the hospital. He is passed the razor blade now and at this point he reports that he is feeling better and more optimistic. With his first day on the psychiatric unit we discussed the fact that we needed to observe him for a couple of days to get a sense of where he really is prior to being comfortable with discharge. We had filed a 21-day hold paperwork but were able to negotiate and get an agreement that he will work with us over the next few days with a plan for discharge at the beginning of the week. Hospital Course: Shayan presented to the unit after being in the ICU and followed by surgery secondary to the ingestion of a razor blade or at least razor blade containing item from the head of a razor. After being followed until the object had been defecated since they were unable to get it by surgical means he was transferred to the NPU. After he woke up alive he reports that he got himself to the hospital for help and reports that he did not have any lethality after awaking and felt a desire to get help and not continue with self-injurious suicidal behaviors. So after a few days in the ICU he spent a few days in the NPU where he was observed and each day denied any lethality and a desire to go home and continue with his life. His medications were continued. Once he got to the NPU he acclimated to the individual, group and milieu therapies. While he was in the hospital he had routine laboratory studies which were within normal limits except for a few outliers. Those can be seen below. He also had a general medical evaluation this was within normal limits and revealed no acute processes except for the issue with the intentional ingestion. At the time of discharge his mood had improved, his lethality had resolved and he was sleeping better. He endorsed the plan to take his medication as prescribed, continue with his recovery oriented outpatient treatments and abstain from drugs of abuse as well as self-injurious and suicidal behaviors. He had obtained all the benefits he could get from the inpatient unit so he was discharged. Social history:the patient is currently supporting himself through his disability payments. He lives with uncle who apparently has a farm. He spends much of his time helping his uncle with daily activities around the farm such as feeding animals and taking care of the general grounds. He engages in no enjoyable activities and largely spends his time playing on his phone. His uncle apparently is advanced in age and is concerned about Shayan's well-being as the uncle's health declines. Shayan's uncle has advised him to go to a rehabilitation program and get off the Suboxone so that eventually he can be placed in a nursing home or residential care facility. Legal history:there is no history in the [place] public record of incarcerations or felony arrests. Past medical history: Allergies Escitalopram. NSAIDS (NON-STEROIDAL ANTI-INFLAMMA. Venlafaxine. SOCIAL HX: Heavy tobacco smoker (cigarette)- 1 pack per day. No alcohol use or drug use. No recent travel. PROBLEMS: Ulcerative Colitis. GI Bleeding. Depression. Bipolar Disorder. Colitis. ADDITIONAL SURGERIES: Appendectomy. . Mental Status Exam: the patient is an alert interpersonally engaged male. He is believed to be a reliable informant to the best of his ability as information that is provided is internally consistent and consistent with that in the chart. Appearance: hygiene is fair; no gross neurological deficits., gait is unremarkable; AIMS=0 Speech: Speech is she is rapid with indistinct enunciation with frequently makes some of the information difficult to assess. Thought processes: Thought processes are abstract. Judgment is adequate for safety. Associations: intact Psychotic processes: There is no indication of guarding or paranoia. There is no attention to the internal stimuli. auditory hallucinations are reported as above. He denied the presence of visual hallucinations. Judgment: Insight is good. Problem solving skills are adequate for safety. Orientation: The patient is oriented to person, place time and situation. Memory: no deficits noted in immediate, intermediate, or remote spheres. Attention: The patient is alert and interpersonally engaged. Language: Verbalizations are coherent. Fund of knowledge: Fund of knowledge is adequate. Affect/Mood: Affect is consistent with a depressed mood. he reported vague suicidal ideation without intent or plan. Affective range good Psychosis: perception unimpaired despite intrusive auditory hallucinations that he is experiencing.; reality testing intact. Diagnoses: schizophrenia?undifferentiated, acute Assessment:this is a difficult situation given that he has a long-standing history of schizophrenia but can give no feedback as to what medications have been tried without any success in the past. At this point, we will continue the Zyprexa 20 mg at bedtime and also provide when necessary dosing during the day with Geodon as needed for auditory hallucinations. He will continue with Suboxone and the Celexa. We will discuss the feasibility of placement in a rehabilitation program with foster care social worker. If this is a reasonable possibility, tapering some from Suboxone will be discussed. Hospital Course Hospital Course The patient was admitted to the neuropsychiatric unit for definitive treatment of these issues. On the unit he slowly acclimated to the individual, group and milieu therapies. He had auditory hallucinations on admission and they gradually resolved as Geodon was started at 40 mg twice daily and gradually increased to 80 mg twice daily. He had no side effects on this medicine. Doxepin 25 mg was started for insomnia. He was receptive to treatment team recommendations and showed modest improvement and was able to contract for safety prior to discharge. During the hospitalization, patient had routine laboratory studies which were within normal limits except for few outliers. Additionally there was a general medical evaluation which was also within normal limits and revealed no new acute processes. Discharge Summary: At the time of discharge, psychosis and lethality were denied. Mood and anxiety were well managed. Patient endorsed a plan to avoid all drugs of abuse and follow-up with the aftercare recommendations of the treatment team. Patient was evaluated and deemed to be absent credible lethality, and had achieved the maximum benefit from an inpatient hospitalization, so was discharged. He was found to have pulmonary embolisms and is on Eliquis. He was initially refusing treatment but then accepted treatment. He says that he was told that his heart was only 35% effective. There is a perfusion scan which shows his ejection fraction is 66% and the results says that he has normal left ventricular function. He was admitted to the neuropsychiatry unit for definitive treatment of his problems. He says that he did not intend to harm himself. He says he has not had any depression or suicidal ideation recently. He has been on Suboxone 8-2 twice a day for the last 5 years. He says when he has access to Suboxone he does not use opiates. This past summer he started using Imodium at 144-200 tablets every third day to get an opiate effect. He said that he was not on clonazepam or other psychotropic medications when he was doing that. He says that he did not try to kill himself but took 200 mg of Imodium in order to get an opiate effect. He says that he took 1 extra clonazepam and he is attributing that to his becoming unresponsive and so ill. That does not seem logical but possibly if he took 27 clonazepam and extra trazodone could have caused that result. He says that when he takes the Thorazine 50 mg 3 times a day it works very well and he does not hear voices. He says that he has tried Geodon and Invega without benefit. He said the Latuda made him happy but caused his muscles to stretch. He liked the effect otherwise. Abilify caused him to feel like he was on uppers. He took Zyprexa to help him sleep when he was in a psychiatric hospital as a child for 4 months. He does not believe he has taken it since then. He has not been sleeping well. He is willing to change his Thorazine to bedtime along with 100 mg of trazodone. He wants to restart the Suboxone and will discontinue his current opiate so that he will be on withdrawal tomorrow. He also said that he would agree to try a very low-dose of Vraylar. Hospital Course Hospital Course He slowly acclimated to the individual, group and milieu therapies provided. We initially were going to try Vraylar but the pharmacy could not get it until 5 days later because of the holiday. He rested trying Latuda again since it had having good impact on his mood previously but had side effects. He said that he was in withdrawal at the time and possibly that could have caused the side effects. He was started on Latuda 20 and then increased to 40 on the second day. He had 3 doses and did not have any side effects. He said that it helped him sleep better and did improve his mood. He said he felt much better in the morning and did not have any dark episodes. He tolerated these doses and showed steady improvement during his stay. He was able to contract for safety outside hospital prior to discharge. During the hospitalization, patient had routine laboratory studies which were within normal limits except for few outliers. Additionally there was a general medical evaluation which was also within normal limits and revealed no new acute processes. Discharge Summary: At the time of discharge, lethality was denied. Mood and anxiety were well managed. Patient endorsed a plan to follow-up with the aftercare recommendations of the treatment team. Patient was evaluated and deemed to be absent credible lethality, and had achieved the maximum benefit from an inpatient hospitalization, so was discharged. Involuntary Hold Information 96 Hour Hold: 96 Hour Involuntary Admission: No 96 Hour Hold Ending Date: 01/30/21 96 Hour Hold Ending Time: 00:01 Mental Status Exam MSE Comments: This is a 35-year old overweight male who appears approximately his stated age and is in no acute distress. He is dressed in hospital scrubs and fairly well groomed. psychomotor activity is normal. Speech is at a regular rate and rhythm, normal volume, good articulation, not pressured. Alert, oriented X2 Attention and concentration appears to be good. Memory is intact Mood is good. Affect is euthymic. Thought process is logical and goal-directed. Thought content: Denies auditory and visual hallucinations. No delusions or paranoia are noted. He denies current suicidal ideation, and no homicidal ideation. Fund of knowledge is normal. Insight and judgment appear to be limited. Impulse control is limited. Cognition: Patient Appearance: Disheveled/Poor Hygiene Level of Consciousness: Sedated Patient Cognition Impaired: Yes Ability to Follow Directions: Fair Patient Orientation (long list): Person, Place, Name, Age and Birthday Comprehension Ability: No Impairment Hallucination Type: None Delusion Description: Not Present and Grandiose Thought Process: Appropriate and Logical Affect: Affect Description: Appropriate and Calm Behavior: Patient Behavior: Appropriate and Cooperative Speech Pattern: Appropriate and Clear Physical Exam Urinary Catheter Management^: García: Cath Placed During This Visit: yes, but has since been removed by the nurse Reason for Continuing Indwelling Catheter: Decision to DC Catheter Urinary Catheter Date of Insertion: 02/13/21 Date Urinary Catheter Removed: 02/14/21 Time Urinary Catheter Discontinued: 10:54 Discharge Data Data Completed and Pending: Completed Studies During Hospitalization Category Date Time Status CT angio chest PE protcl 24883 Urge nt Cat Scan 02/13/21 03:[address] head wo con* 7 0450 Urgent Cat Scan 02/13/21 00:38 Completed Sestamibi Stress Test Request Routi ne Exams 02/17/21 07:00 Draft XR chest 1V sourav ble [id number] Routine Exams 02/14/21 13:58 Completed XR chest 1V sourav ble [id number] Routine Exams 02/15/21 07:00 Completed XR chest 1V sourav ble [id number] Stat Exams 02/13/21 01:25 Completed NM lilly perf SPECT r/s* [id number] Routin e Nuc Med 02/17/21 18:51 Completed CV. echo complete * [id number] Routine Ultrasound 02/13/21 06:00 Completed Pending at discharge Category Date Time Status CV. echo limited [id number] Routine Ultrasound 02/25/21 19:56 Ordered Vitals: Last Vital Signs Temp 97.4 F L 02/24/21 14:00 Pulse 92 02/24/21 14:00 Resp 16 02/25/21 06:00 BP 99/64 02/24/21 14:00 Pulse Ox 97 02/24/21 14:00 Discharge Plan Discharge Patient Disposition: Home Condition: Stable Prescriptions: New chlorpromazine 50 mg Tablet 150 mg PO BEDTIME 30 Days Qty: 90 RF: 1 Latuda 20 mg Tablet 40 mg PO 1700 30 Days Qty: 60 RF: 1 buprenorphine-naloxone 4-1 mg Film 2 film sublingual 0900,2100 30 Days Qty: 120 RF: 0 Continued pantoprazole 40 mg Tablet,Delayed Release (Dr/Ec) 40 mg PO BID 30 Days Qty: 60 RF: 1 bisacodyl 5 mg Tablet,Delayed Release (Dr/Ec) 10 mg PO DAILY PRN (Reason: Constipation (see protocol)) 30 Days Qty: 60 RF: 1 hydroxyzine pamoate 25 mg Capsule 50 mg PO Q6H PRN (Reason: Anxiety or Sleep) 30 Days Qty: 180 RF: 1 clonazepam 0.5 mg tablet 0.5 mg PO BID@,21 30 Days Qty: 60 RF: 0 trazodone 100 mg Tablet 100 mg PO BEDTIME PRN (Reason: Insomnia) 30 Days Qty: 30 RF: 1 Lunesta 1 mg tablet 1 mg PO BEDTIME 30 Days Qty: 30 RF: 1 Discontinued chlorpromazine 25 mg Tablet 50 mg PO TID 30 Days Qty: 240 RF: 1 Discharge Orders: Discharge Order (Routine); Ordered 02/25/21 Ordered By: Noel House Referrals: Saritha Patel [Therapist] - 02/26/21 9:30 am (Initial assessment with Saritha Patel at 10:00am with a 9:30 check in. ) Phuc Valenzuela MD [Physician] - 1 month Discharge Diet: Regular Discharge Activity: Resume usual activity Patient Instructions: Opioid Safety Discharge Attestations [facility]PU Time Spent in Discharge Care*: less than 30 min Specific Discharge Activities: Specific discharge activities: educating patient, discussing with outsole caser/social workers/dc planners, documenting/other paperwork and evaluating patient/reviewing data Status at Discharge: Cognitive status at discharge: cognitively intact , Behavioral status at discharge: cooperative , Coding Level of Care Code Acute [facility] DC note Diagnoses Elevated troponin R77.8 Non-ischemic cardiomyopathy I42.8 QT prolongation R94.31 Drug overdose, intentional T50.902A Encounter type: initial encounter Altered mental status R40.2432 Altered mental status type: coma Coma depth: [place] coma 3-8 Coma timing: at arrival to emergency department Pulmonary embolism I26.99 Acute cor pulmonale presence: without acute cor pulmonale Chronicity: unspecified Pulmonary embolism type: other
[2021-02-25 08:45] VITALS: BP 99/64
[2021-02-25] MEDS: buprenorphine-naloxone 4-1 mg Film 2 EACH SUBLINGUAL (08:45)
[2021-02-25] MEDS: losartan 50 mg Tablet 25 MG PO (08:45)
[2021-02-25] MEDS: aspirin 81 mg Chew Tablet PO (08:45)
[2021-02-25] MEDS: carvedilol 3.125 mg Tablet PO (08:45)
[2021-02-25] MEDS: CLONazepam 0.5 mg Tablet PO (08:45)
[2021-02-25] MEDS: nicotine 2 mg Gum BUCCAL (08:46)
[2021-02-25] MEDS: pantoprazole DR 40 mg Tablet PO (08:46)
[2021-02-25] MEDS: spironolactone 25 mg Tablet PO (08:46)
[2021-02-25] MEDS: apixaban 5 mg Tablet 10 MG PO (08:46)
[2021-02-25] MEDS: dicyclomine 10 mg Capsule PO (08:46)
--- NOTE | 2021-02-25 10:08 | DCPLANNER ---
IMM completed with pt on 02/25/21 @ 9569. Pt was given a copy of rights and he stated understanding of rights.
[2021-02-25 11:10] VITALS: BP 99/64
--- NOTE | 2021-02-26 17:09 | PC.NURSE ---
patient contacted the unit after being discharged from [facility] on 02/25/21. The patient was not discharged with coreg or eliquis and knew he should be taking them upon discharge. Nursing called Dr. Colunga and after chart review he transmitted medications to the [facility] pharmacy. Patient called with updates and to ensure that he had received his medications from the pharmacy. [facility] and arrange a follow up appointment and PCP establishment.
--- NOTE | 2021-03-31 09:22 | PC.SOCIAL ---
pt called and was concerned about medications ordered at [facility] by Dr Colunga. Verified with our pharmacy and patient. Eliquis 5mg BID, Spironolactone 25mg once daily, ASA 81mg once daily, Losartan/ KCL 25mg once daily, Carvedilol 3.125mg BID. Clarified with Dr Keanu shepherd to order two weeks additional to allow time to establish with Primary Care. Suppose to see someone at [facility] on 04/06/[address] Valenzuela on 04/08/2021. Patient is aware that he will need to follow up with these providers for any additional meds and all psychiatric meds will need to be from Psych medication provider. Patient verbalized understanding. Notified Rica at pharmacy of order to refill for two weeks only.
== END 2021-02-25 11:14 | disposition home or self-care (01) | DRG 917 ==
LOC: ER 01:31 → ICU 04:38 → NP 02-18 17:18
PROVIDERS: Internal Medicine; Student in an Organized Health Care Education/Training Program; Admitting Provider Psychiatry & Neurology Psychiatry; Emergency Provider Emergency Medicine; Visit Provider Family Medicine
DX: T42.4X2A Poisoning by benzodiazepines, intentional self-harm, initial encounter (principal); I26.94 Multiple subsegmental thrombotic pulmonary emboli without acute cor pulmonale; I21.A1 Myocardial infarction type 2; J96.01 Acute respiratory failure with hypoxia; N17.9 Acute kidney failure, unspecified; R45.851 Suicidal ideations; I42.8 Other cardiomyopathies; M62.82 Rhabdomyolysis; F20.9 Schizophrenia, unspecified; F17.210 Nicotine dependence, cigarettes, uncomplicated; Z91.51 Personal history of suicidal behavior; E86.0 Dehydration; I95.9 Hypotension, unspecified
CPT/HCPCS: 31500; 36415; 36416; 36556; 36592; 36600; 51702; 70450; 71045; 71275; 78452; 80053; 80202; 80306; 80307; 81001; 82140; 82550; 82693; 82803; 82962; 83605; 83690; 83735; 83880; 84100; 84145; 84443; 84484; 85025; 85378; 85610; 85730; 86140; 87070; 87205; 90471; 90686; 93005; 93017; 93306; 94002; 94003; 94664; 94799; 96365; 96366; 96367; 96372; 96375; 97150; 97165; 99291; 99292; A9500; C1751; C9113; J0573; J0610; J0692; J1630; J1644; J1940; J2270; J2405; J2543; J2704; J2785; J3010; J3370; J3475; J3490; J7030; J7050; Q0161; Q0162; Q9967

== ENCOUNTER 2021-04-16 14:47 | Inpatient (IN) | payer MEDICARE, MEDICAID, SELFPAY ==
[2021-04-16] VITALS (15 sets, daily range): BP systolic 86–132; BP diastolic 50–87; PULSE 48–96; RESP 14–20; TEMP 37.1; O2SAT 91–98; BMI 29.2
--- NOTE | 2021-04-16 15:34 | ECG_ITS ---
[facility] Test Date: 2021-04-16 Pat Name: Shayan Dickson Department: Room: Gender: Male [employer] Supervisor: : 1985 Requested By: Shaina Briones Order Number: [id number] Krzysztof MD: Wen Nugent M.D. Measurements Intervals [place] Rate: 63 P: 53 [place]: 172 QRS: -57 QRSD: 111 T: 42 QT: 404 QTc: 415 Interpretive Statements SINUS RHYTHM LEFT AXIS DEVIATION [QRS AXIS < -30] LOW QRS VOLTAGE IN PRECORDIAL LEADS [QRS DEFLECTION < 1.0 mV IN CHEST LEADS] INCOMPLETE RIGHT BUNDLE BRANCH BLOCK [90+ ms QRS DURATION, TERMINAL R IN V1/V2, 40+ ms S IN I/aVL/V4/V5/V6] Compared to ECG 02/17/2021 02:04:29 Low QRS voltage now present Incomplete right bundle-branch block now present Electronically Signed On 04-16-2021 19:13:40 SYSTEM DEVELOPMENT ENGINEER by Wen Nugent M.D. [id number]
[2021-04-16 15:44] LABS: Basophils % 0.5 %; Eosinophils # 0.4 10^3/uL (0.0-0.8); Eosinophils % 6.2 %; Hematocrit 45.7 % (42.0-52.0); Hemoglobin 15.7 g/dL (11.7-16.6); Lymphocytes # 2.1 10^3/uL (0.8-4.8); Lymphocytes % 32.1 %; Mean Corpuscular HGB Conc 34.4 g/dL (30.0-36.0); Mean Corpuscular Hemoglobin 28.4 pg (28.0-34.0); Mean Corpuscular Volume 82.6 fl (80-94); Mean Platelet Volume 10.3 fL (7.4-10.4); Monocytes # 0.3 10^3/uL (0.2-0.9); Monocytes % 4.8 %; Neutrophils # 3.61 10^3/uL (1.8-7.7); Neutrophils % 56.1 %; Nucleated Red Blood Cells % 0 %; Platelet Count 210 10^3/cmm (130-400); Red Blood Count 5.53 10^6/uL (4.1-5.3); Red Cell Distribution Width 12.4 % (12.1-15.1); White Blood Count 6.4 10^3/uL (4.0-10.0)
[2021-04-16] MEDS: sodium chloride 0.9% 1,000 ML 999 ML IV ×2 (15:51→15:52)
[2021-04-16] MEDS: calcium chloride 10% Syr 10 mL 1 GM IVP (15:52)
[2021-04-16 16:05] LABS: Alanine Aminotransferase 12 U/L (0-41); Albumin Level 4.7 g/dL (3.5-5.2); Alkaline Phosphatase 111 IU/L (40-130); Anion Gap 18.1 (5-19); Aspartate Amino Transferase 15 U/L (0-40); Blood Urea Nitrogen 10 mg/dL (6-20); Calcium 8.8 mg/dL (8.5-10.5); Carbon Dioxide 23 mmol/L (22-29); Chloride 100 mmol/L (98-107); Creatine Phosphokinase 70 U/L (39-308); Globulin 2.8 g/dL (1.3-4.6); Glucose 91 mg/dL (65-115); Magnesium 1.9 mg/dL (1.7-2.3); Osmolality Calculated 283 mOsm/kg (285-295); Potassium 4.1 mmol/L (3.5-5.1); Sodium 137 mmol/L (136-145); Total Bilirubin 0.4 mg/dL (0.15-1.2); Total Protein 7.5 g/dL (6.6-8.7)
[2021-04-16 16:09] LABS: Acetaminophen < 5.0 ug/mL (10-30); Alcohol Level < 10 mg/dL (0-10); Salicylate < 0.3 mg/dL (3-10)
[2021-04-16] MEDS: sodium bicarbonate 8.4% 1 mEq/mL 50mL Syr 100 MEQ IVP (16:11)
[2021-04-16] MEDS: atropine 0.1 mg/mL Syr 10 mL 1 MG IVP ×2 (16:12→18:40)
[2021-04-16] MEDS: magnesium sulfate premix 2 GM/50 ML PIGGYBACK IV (16:18)
[2021-04-16 16:23] LABS: Glucose Point of Care 142 mg/dL (70-110)
[2021-04-16 17:15] LABS: INR 2.13 (0.8-1.2)
[2021-04-16 17:16] LABS: Partial Thromboplastin Time 49.6 SECONDS (23.9-36.7)
[2021-04-16 17:32] LABS: Glucose Point of Care 257 mg/dL (70-110)
[2021-04-16 18:08] LABS: Add Urine Microscopic? NO; Charge for UA Resulting for Rev
[2021-04-16 18:13] LABS: Bilirubin Urine Neg (Negative); Blood Urine Neg (Negative); Glucose Urine UA Norm (Normal); Ketones Urine Negative (Negative); Leukocyte Esterase Urine Negative (Negative); Nitrate Urine Negative (Negative); Protein Urine Neg (Negative); Specific Gravity, Urine 1.015 (1.005-1.030); Urine Appearance Clear (CLEAR); Urine Color Yellow (Yellow); Urobilinogen Urine Norm (Negative); pH Urine 6 (5-7)
[2021-04-16 18:22] LABS: Amphetamines Screen Urine Negative (Negative); Barbiturates Screen Urine Negative (Negative); Benzodiazepines Screen Urine Negative (Negative); Cocaine Screen Urine Negative (Negative); Opiate Screen Urine Negative (Negative); PCP Screen Urine Negative (Negative); THC Screen Urine Negative (Negative)
--- NOTE | 2021-04-16 18:31 | PC.NURSE ---
POISON CONTROL CALL BACK ASKING FOR UPDATES ON PATIENT. UPDATE GIVEN ON TOXICOLOGY REPORT AND MEDICATIONS GIVEN.
--- NOTE | 2021-04-16 18:31 | W.ED.PSYCHS ---
HPI - Psych General: Chief Complaint: Psychiatric Symptoms Stated Complaint: SI Time Seen by Provider: 04/16/21 15:13 Source: patient Mode of arrival: ambulatory Limitations: no limitations History of Present Illness: HPI Narrative: 36-year-old male presents to the ER after intentionally overdosing on multiple medications 2 hours prior to arrival.Approximate amounts below: Eliquis 5 mg, #30 Thorazine 50 mg, #60 Carvedilol 3.125mg #40 Lunesta 1 mg #20 Vistaril 25 mg #100 Clonazepam 0.5 mg #40 Denies coingestion of alcohol or other drugs. This is not the first time he has attempted suicide by overdose. complaint: suicidal ideation and feels depressed Associated symptoms: Reports auditory hallucinations, visual hallucinations, depression and suicidal ideation Review of Systems Const: Denies: fever(s) or chills Card: Reports: chest pain Resp: Denies: dyspnea, productive cough or non-productive cough GI: Denies: abdominal pain, nausea or vomiting Musc: Denies: neck pain or back pain Skin/Breast: Denies: rash, pruritus or erythema Psych: Reports: anxiety, depression, mood swings, sleeping less, hopelessness, irritability, visual hallucinations, auditory hallucinations and suicidal ideation All/Imm: Denies: throat swelling or tongue swelling PFSH ED PFSH: Medical History Opiate misuse Schizophrenia Suicide attempt Ulcerative colitis Surgical History History of appendectomy Social History Smoking and tobacco status: current every day smoker Alcohol intake: current Physical Exam Const: COMMON NORMALS: no acute distress GENERAL APPEARANCE: cooperative, comfortable and disheveled; not in distress, not lethargic and not ill appearing ORIENTATION/CONSCIOUSNESS: not lethargic HENMT: COMMON NORMALS: normocephalic and atraumatic HEAD & SCALP: normocephalic and atraumatic FACE & SINUS: normal facial exam and face symmetric Eye: COMMON NORMALS: Equal, round and reactive pupils present, EOMs intact bilaterally and no scleral icterus PUPIL: Yes Equal, round and reactive pupils present Neck/C-Spine: COMMON NORMALS: full ROM, no lymphadenopathy and supple Resp: COMMON NORMALS: normal respiratory effort EFFORT & INSPECTION: Yes able to speak in complete sentences Cardio: COMMON NORMALS: S1 normal heart sound present and S2 normal heart sound present HEART SOUNDS: S1 normal heart sound present and S2 normal heart sound present GI: COMMON NORMALS: Normal to inspection, nondistended, normoactive bowel sounds present, Soft to palpation and non-tender PALPATION: Yes Soft to palpation Neuro: SENSORIUM/ORIENTATION: No lethargic Psych: COMMON NORMALS: Normal thought process present, cooperative, speech normal and activity/motor behavior normal APPEARANCE: Yes disheveled ATTITUDE: Yes calm ACTIVITY/MOTOR BEHAVIOR: Yes appropriate eye contact SPEECH: Yes normal speech MOOD & AFFECT: Yes Flat affect present THOUGHT PROCESS: Normal thought process present THOUGHT CONTENT: Yes Suicidality present ATTENTION/CONCENTRATION: Yes attention grossly intact MEMORY/COGNITION: Yes memory grossly intact INSIGHT: Fair insight present (Psych) Course Vital Signs: Vital signs: Vital Signs Temperature 98.8 F 04/16/21 15:01 Pulse Rate 72 04/16/21 18:53 Respiratory Rate 18 04/16/21 18:53 Blood Pressure 132/87 04/16/21 18:53 Pulse Oximetry 97 04/16/21 18:53 MDM - Psych MDM Narrative: Medical decision making narrative: 36-year-old male intentionally overdosed on multiple prescriptions in an apparent suicide attempt; carvedilol, thorazine , vistaril, clonazepam, eliquis, lunesta charcoal not administered since ingestion was 2+ hours prior to arrival. Poison control consulted early in course; recommended glucagon. No specific recommendations were given regarding the other coingested drugs. Beta-laura related hypotension and bradycardia: managed with 2L IV fluid bolus, glucagon infusion (4mg total), atropine (2mg total), calcium chloride, and norepinephrine infusion titrated to maintain MAP>65 Other treatments; mag sulfate 2 g IV, sodium bicarb 1 amp IV Continuous cardiac monitoring, seizure precautions, pads in place in the event that he requires TC pacing. Kidney and liver function nml tox screen otherwise negative. He will require a prolonged period of monitoring and treatment before he can be medically cleared for Psychiatric admission; still requiring levophed at 10mcg/min to maintain his blood pressure . Refuses central venous line placement, even after discussing risks associated with prolonged peripheral pressor infusions: including limb threatening ischemia. Consulted with Dr Knapp, hospitalist, he accepts the admission. Differential Diagnosis: Psych Differential Diagnosis: Likely acute psychosis, chronic schizophrenia and suicidal ideation Medical Records: Attestation: I reviewed the patient's medical records. Lab Data: Attestation: I reviewed the patient's lab results. Labs: Lab Results 04/16/21 04/16/21 04/16/21 15:36 15:36 16:15 WBC 6.4 10^3/uL 10^3/ uL (4.0-10.0) RBC 5.53 10^6/uL H 10 ^6/uL (4.1-5.3) Hgb 15.7 g/dL g/dL (11.7-16.6) Hct 45.7 % % (42.0-52.0) MCV 82.6 fl fl (80-94) MCH 28.4 pg pg (28.0-34.0) MCHC 34.4 g/dL g/dL (30.0-36.0) RDW 12.4 % % (12.1-15.1) Plt Count 210 10^3/cmm 10^3 /cmm (130-400) MPV 10.3 fL fL (7.4-10.4) Neut % (Auto) 56.1 % % Lymph % (Auto) 32.1 % % [place] % (Auto) 4.8 % % Eos % (Auto) 6.2 % % Baso % (Auto) 0.5 % % Neut # (Auto) 3.61 10^3/uL 10^3 /uL (1.8-7.7) Lymph # (Auto) 2.1 10^3/uL 10^3/ uL (0.8-4.8) [place] # (Auto) 0.3 10^3/uL 10^3/ uL (0.2-0.9) Eos # (Auto) 0.4 10^3/uL 10^3/ uL (0.0-0.8) Baso # (Auto) 0.0 10^3/uL 10^3/ uL (0.0-0.1) Nucleated RBC % (a uto) 0 % % Nucleated RBCs # 0.0 /100WBC /100W BC PT 24.30 SECONDS H S ECONDS (12.1-14.9) INR 2.13 H (0.8-1.2) APTT 49.6 SECONDS H SE CONDS (23.9-36.7) Sodium 137 mmol/L mmol/L (136-145) Potassium 4.1 mmol/L mmol/L (3.5-5.1) Chloride 100 mmol/L mmol/L (98-107) Carbon Dioxide 23 mmol/L mmol/L (22-29) Anion Gap 18.1 (5-19) BUN 10 mg/dL mg/dL (6-20) Creatinine 0.9 mg/dL mg/dL (0.7-1.2) GFR Calculation 95.0 mL/min mL/mi n (90-130) Glucose 91 mg/dL mg/dL (65-115) POC Glucose Calculated Osmolal ity 283 mOsm/kg L mOs m/kg (285-295) Calcium 8.8 mg/dL mg/dL (8.5-10.5) Magnesium 1.9 mg/dL mg/dL (1.7-2.3) Total Bilirubin 0.4 mg/dL mg/dL (0.15-1.2) AST 15 U/L U/L (0-40) ALT 12 U/L U/L (0-41) Alkaline Phosphata se 111 IU/L IU/L (40-130) Creatine Kinase 70 U/L U/L (39-308) Total Protein 7.5 g/dL g/dL (6.6-8.7) Albumin 4.7 g/dL g/dL (3.5-5.2) Globulin 2.8 g/dL g/dL (1.3-4.6) Urine Color Urine Appearance Urine pH Ur Specific Gravit y Urine Protein Urine Glucose (UA) Urine Ketones Urine Blood Urine Nitrate Urine Bilirubin Urine Urobilinogen Ur Leukocyte Riya ase Salicylates < 0.3 mg/dL L mg/ dL (3-10) Urine Opiates Scre en Acetaminophen < 5.0 ug/mL L ug/ mL (10-30) Ur Barbiturates Sc reen Ur Phencyclidine S crn Ur Amphetamines Sc reen U Benzodiazepines Scrn Urine Cocaine Scre en U Marijuana (THC) Screen Ethyl Alcohol < 10 mg/dL mg/dL (0-10) 04/16/21 04/16/21 04/16/21 16:19 17:29 17:32 WBC RBC Hgb Hct MCV MCH MCHC RDW Plt Count MPV Neut % (Auto) Lymph % (Auto) [place] % (Auto) Eos % (Auto) Baso % (Auto) Neut # (Auto) Lymph # (Auto) [place] # (Auto) Eos # (Auto) Baso # (Auto) Nucleated RBC % (a uto) Nucleated RBCs # PT INR APTT Sodium Potassium Chloride Carbon Dioxide Anion Gap BUN Creatinine GFR Calculation Glucose POC Glucose 142 mg/dL H mg/dL 257 mg/dL H mg/dL (70-110) (70-110) Calculated Osmolal ity Calcium Magnesium Total Bilirubin AST ALT Alkaline Phosphata se Creatine Kinase Total Protein Albumin Globulin Urine Color Urine Appearance Urine pH Ur Specific Gravit y Urine Protein Urine Glucose (UA) Urine Ketones Urine Blood Urine Nitrate Urine Bilirubin Urine Urobilinogen Ur Leukocyte Riya ase Salicylates Urine Opiates Scre en Negative ng/mL ng /mL (Negative) Acetaminophen Ur Barbiturates Sc reen Negative ng/mL ng /mL (Negative) Ur Phencyclidine S crn Negative ng/mL ng /mL (Negative) Ur Amphetamines Sc reen Negative ng/mL ng /mL (Negative) U Benzodiazepines Scrn Negative ng/mL ng /mL (Negative) Urine Cocaine Scre en Negative ng/mL ng /mL (Negative) U Marijuana (THC) Screen Negative ng/mL ng /mL (Negative) Ethyl Alcohol 04/16/21 04/16/21 04/16/21 17:32 19:03 19:21 WBC RBC Hgb Hct MCV MCH MCHC RDW Plt Count MPV Neut % (Auto) Lymph % (Auto) [place] % (Auto) Eos % (Auto) Baso % (Auto) Neut # (Auto) Lymph # (Auto) [place] # (Auto) Eos # (Auto) Baso # (Auto) Nucleated RBC % (a uto) Nucleated RBCs # PT INR APTT Sodium 134 mmol/L L mmol /L (136-145) Potassium 4.3 mmol/L mmol/L (3.5-5.1) Chloride 102 mmol/L mmol/L (98-107) Carbon Dioxide 21 mmol/L L mmol/ L (22-29) Anion Gap 15.3 (5-19) BUN 10 mg/dL mg/dL (6-20) Creatinine 0.7 mg/dL mg/dL (0.7-1.2) GFR Calculation 126.9 mL/min mL/m in (90-130) Glucose 286 mg/dL H mg/dL (65-115) POC Glucose 134 mg/dL H mg/dL (70-110) Calculated Osmolal ity 287 mOsm/kg mOsm/ kg (285-295) Calcium 8.0 mg/dL L mg/dL (8.5-10.5) Magnesium 2.3 mg/dL mg/dL (1.7-2.3) Total Bilirubin AST ALT Alkaline Phosphata se Creatine Kinase Total Protein Albumin Globulin Urine Color Yellow (Yellow) Urine Appearance Clear (CLEAR) Urine pH 6 (5-7) Ur Specific Gravit y 1.015 (1.005-1.030) Urine Protein Neg (Negative) Urine Glucose (UA) Norm (Normal) Urine Ketones Negative (Negative) Urine Blood Neg (Negative) Urine Nitrate Negative (Negative) Urine Bilirubin Neg (Negative) Urine Urobilinogen Norm mg/dL mg/dL (Negative) Ur Leukocyte Riya ase Negative (Negative) Salicylates Urine Opiates Scre en Acetaminophen Ur Barbiturates Sc reen Ur Phencyclidine S crn Ur Amphetamines Sc reen U Benzodiazepines Scrn Urine Cocaine Scre en U Marijuana (THC) Screen Ethyl Alcohol Critical Care Time Critical Care Time: Critical Care Time: Yes Total Critical Care Time: 120 Attestation: This case had a high probability of a clinically significant, sudden, or life threatening deterioration of this patient's condition which required my full and direct attention, intervention and personal management. Drug overdose, unstable vital signs, bradycardia requiring intervention, hypotension requiring pressor support, continuous cardiac monitoring,serial electrolyte checks, Discharge Plan Discharge Prescriptions: No Action aspirin [Adult Low Dose Aspirin] 81 mg tablet,delayed release (DR/EC) 81 mg PO DAILY RF: 0 Eliquis 5 mg tablet 5 mg PO BID Qty: 60 RF: 3 carvedilol 3.125 mg tablet 3.125 mg PO BID Qty: 60 RF: 3 chlorpromazine 50 mg tablet 150 mg PO BEDTIME 30 Days Qty: 90 RF: 1 Lunesta 1 mg tablet 1 mg PO BEDTIME 30 Days Qty: 30 RF: 1 hydroxyzine pamoate 25 mg capsule 50 mg PO Q6H PRN (Reason: Anxiety or Sleep) 30 Days Qty: 180 RF: 1 losartan 25 mg tablet 25 mg PO DAILY Qty: 30 RF: 2 Latuda 20 mg tablet 40 mg PO 1700 30 Days Qty: 60 RF: 1 spironolactone 25 mg tablet 25 mg PO DAILY Qty: 30 RF: 3 trazodone 100 mg tablet 100 mg PO BEDTIME PRN (Reason: Insomnia) 30 Days Qty: 30 RF: 1 clonazepam 0.5 mg tablet 0.5 mg PO BID@09,21 30 Days Qty: 60 RF: 1 Coding Level of Care Code ED Fondant Cooker for Chg 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
[2021-04-16 19:25] LABS: Glucose Point of Care 134 mg/dL (70-110)
[2021-04-16 19:26] LABS: Blood Urea Nitrogen 10 mg/dL (6-20); Carbon Dioxide 21 mmol/L (22-29); Chloride 102 mmol/L (98-107); Glomerular Filtration Rate 126.9 mL/min (90-130); Glucose 286 mg/dL (65-115); Magnesium 2.3 mg/dL (1.7-2.3); Osmolality Calculated 287 mOsm/kg (285-295); Sodium 134 mmol/L (136-145)
[2021-04-16 19:30] LABS: Anion Gap 15.3 (5-19); Potassium 4.3 mmol/L (3.5-5.1)
--- NOTE | 2021-04-16 21:32 | XRR_ITS ---
PROCEDURE INFORMATION: Exam: XR Chest Exam date and time: 04/16/2021 9:32 PM Age: 36 years old Clinical indication: Other: AMS. Hypotensive. Drug od; Patient HX: Drug od. AMS. Hypotensive. TECHNIQUE: Imaging protocol: XR of the chest. Views: 1 view. COMPARISON: CR XR chest 1V portable [id number] 02/15/2021 5:26 AM FINDINGS: Lungs: Unremarkable. No consolidation. Pleural spaces: Unremarkable. No pleural effusion. No pneumothorax. Heart/Mediastinum: Unremarkable. No cardiomegaly. Bones/joints: Unremarkable. XR/XR chest 1V portable [id number] IMPRESSION: No acute findings.
--- NOTE | 2021-04-16 21:37 | PM.HP ---
Providers/Chief Complaint Chief Complaint: SI History of Present Illness Shayan Dickson is a 36 year old male with past medical history of bipolar disorder, multiple suicide attempts in the past, Nonischemic cardiomyopathy with EF of 35-40%, recent acute pulmonary embolism, was brought in by the EMS from home after he had intentionally overdosed on multiple medications 2 hours prior to the arrival: Eliquis 5 mg, #30 , Thorazine 50 mg, #60 , Carvedilol 3.125mg #40 , Lunesta 1 mg #20 , Vistaril 25 mg #100 Clonazepam 0.5 mg #40 , Denies coingestion of alcohol or other drugs. He accepted that he was trying to kill himself. When I examined the patient he was complaining of chest pain, which was 7/10, substernal, reproducible, nonradiating. He was also complaining of right lower quadrant abdominal pain. Upon arrival in the ER he was worked up for above-mentioned complaint. Pertinent imaging studies: X-ray chest: No acute findings. CT abdomen and pelvis without contrast: Pertinent labs: WBC 6.4 H&H 15.7/ 45 PLT : 210 , serum sodium: 134 , serum potassium 4.3, BUN and serum creatinine:10/0.7 , PT/INR: 24/2.13 APTT: 49 Troponin trend without significant delta Urinalysis clean, U tox: Negative. In the ER he became hypotensive and bradycardic: For Which he was given atropine glucagon, calcium chloride, 2 g magnesium sulfate, he was started on Levophed, he was also given 2 L normal saline bolus. Review of Systems Const: Denies: fever(s), chills or diaphoresis Card: Denies: palpitations, edema, swelling of feet/ankles, dyspnea on exertion, orthopnea or leg pain with exertion Resp: Denies: dyspnea, productive cough, wheezing or pain on inspiration GI: Denies: nausea, vomiting, diarrhea or constipation : Denies: flank pain or difficulty urinating Musc: Denies: back pain, extremity pain or extremity swelling Neuro: Denies: headache(s), difficulty walking or confusion Medications/Allergies Home Medications Medication Instructions Recorded Confirmed Last Taken Type apixaban 5 mg tablet 5 mg PO BID #60 tab 04/06/21 04/16/21 Unknown Rx aspirin 81 mg tablet,delayed 81 mg PO DAILY 04/06/21 04/16/21 Unknown History release carvedilol 3.125 mg tablet 3.125 mg PO BID #60 tab 04/06/21 04/16/21 Unknown Rx chlorpromazine 50 mg tablet 150 mg PO BEDTIME 30 Days #90 tab 04/06/21 04/16/21 Unknown Rx clonazepam 0.5 mg tablet 0.5 mg PO BID@,21 30 Days #60 tab 04/06/21 04/16/21 Unknown Rx eszopiclone 1 mg tablet 1 mg PO BEDTIME 30 Days #30 tab 04/06/21 04/16/21 Unknown Rx hydroxyzine pamoate 25 mg capsule 50 mg PO Q6H PRN 30 Days #180 cap 04/06/21 04/16/21 Unknown Rx losartan 25 mg tablet 25 mg PO DAILY #30 tab 04/06/21 04/16/21 Unknown Rx lurasidone 20 mg tablet 40 mg PO 1700 30 Days #60 tab 04/06/21 04/16/21 Unknown Rx spironolactone 25 mg tablet 25 mg PO DAILY #30 tab 04/06/21 04/16/21 Unknown Rx trazodone 100 mg tablet 100 mg PO BEDTIME PRN 30 Days #30 04/06/21 04/16/21 Unknown Rx tab Allergies Allergy/AdvReac Type Severity Reaction Status Date / Time mushroom Allergy Unknown Unknown Verified 04/16/21 15:01 escitalopram [From Lexapro] Allergy ALGY-Anaphy Verified 04/16/21 15:01 laxis NSAIDS (Non-Steroidal Allergy ADR-Abdominal Verified 04/16/21 15:01 Anti-Inflamma Pain venlafaxine [From Effexor] Allergy ALGY-Anaphy Verified 04/16/21 15:01 laxis PFSH Acute PFSH: Medical History Opiate misuse Schizophrenia Suicide attempt Ulcerative colitis Surgical History History of appendectomy Social History Smoking and tobacco status: current every day smoker Alcohol intake: current Vitals/I&O/Wt Last Vital Signs Temp 98.8 F 04/16/21 15:01 Pulse 72 01/20/22 18:53 Resp 18 04/16/21 18:53 BP 132/87 04/16/21 18:53 Pulse Ox 97 04/16/21 18:53 04/16/21 04/16/21 04/16/21 06:59 14:59 22:59 Intake Total 1056.668 / 1056.668 Balance 1056.668 / 1056.668 Weight last 48 hrs Weight 95.254 kg Physical Exam HENMT: COMMON NORMALS: normocephalic and atraumatic HEAD & SCALP: normocephalic and atraumatic Resp: COMMON NORMALS: clear to auscultation bilaterally AUSCULTATION: clear to auscultation bilaterally Cardio: COMMON NORMALS: regular rate, regular rhythm, S1 normal heart sound present, S2 normal heart sound present, No gallops present (Cardio), No murmurs present (Cardio), No rub (Cardio) and Peripheral pulses 2+ throughout RATE: regular rate RHYTHM: regular rhythm HEART SOUNDS: S1 normal heart sound present and S2 normal heart sound present PERIPHERAL PULSES: Peripheral pulses 2+ throughout GI: COMMON NORMALS: Normal to inspection, nondistended, normoactive bowel sounds present AUSCULTATION: Yes normoactive bowel sounds PALPATION: Yes Soft to palpation and Yes No hepatosplenomegaly present RECTAL EXAM: Yes deferred OTHER: Right lower quadrant abdominal tenderness, no guarding no rigidity no rebound tenderness Extremity: COMMON NORMALS: no clubbing, cyanosis or edema and no pedal edema Data : 04/16/21 15:36 04/16/21 19:03 A&P Assessment and plan (1) Cardiogenic shock: Status: Acute (2) Intentional drug overdose: Status: Acute (3) Suicide attempt by drug overdose: Status: Acute (4) Non-ischemic cardiomyopathy: Status: Acute (5) Psychosis: Status: Chronic (6) Pulmonary embolism: Status: Acute Additional A&P Information 36 year old male with past medical history of bipolar disorder, multiple suicide attempts in the past, Nonischemic cardiomyopathy with EF of 35-40%, recent acute pulmonary embolism, was brought in by the EMS from home after he had intentionally overdosed on multiple medications 2 hours prior to the arrival: #Cardiogenic as well as hypovolemic shock secondary to symptomatic bradycardia secondary to drug overdose, as well as from poor oral intake. Patient had overdosed on carvedilol, and was bradycardic with heart rate as low as 48. EKG : Sinus rhythm, incomplete right bundle branch block. Patient did received atropine glucagon, calcium chloride, 2 g magnesium sulfate, he was started on Levophed, he was also given 2 L normal saline bolus. Continue with IV hydration, as well as Levophed. Telemetry monitoring #HFrEF : Currently compensated: Monitor intake output charting Daily weight K>4, MG>2 #History of pulmonary embolism: Continue Eliquis H&H is stable #Intentional drug overdose: With active suicidal ideation: Consult psych in the morning #CODE STATUS full code #DVT prophylaxis: We will resume Eliquis Attestations Medical Necessity Statement*: Patient is to be in hospital for management of intentional drug overdose.Anticipated length of stay greater than 2 midnights. Time Spent in Patient Care: Greater than 35 minutes Critical Care Time: Critical Care Time (min): 40 Other Attestations: The high probability of a clinically significant, sudden or life threatening deterioration of the patient's [] system(s) required my full and direct attention, intervention and personal management. The critical care time is as shown. 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
--- NOTE | 2021-04-16 22:26 | CTR_ITS ---
PROCEDURE INFORMATION: Exam: CT Abdomen And Pelvis Without Contrast Exam date and time: 04/16/2021 10:26 PM Age: 36 years old Clinical indication: Abdominal pain; Localized; Right lower quadrant (rlq); Prior surgery; Surgery type: Appy; Patient HX: PT C/O rlq pain with palpation. Patient able to drink approximately half of oral contrast. Patient on zoll monitor. ; Additional info: RT lower qadrant abdominal tenderness TECHNIQUE: Imaging protocol: Computed tomography of the abdomen and pelvis without contrast. Radiation optimization: All CT scans at this facility use at least one of these dose optimization techniques: automated exposure control; mA and/or kV adjustment per patient size (includes targeted exams where dose is matched to clinical indication); or iterative reconstruction. Other contrast: Oral, 25 ML OF OMNI 300 WITH WATER, 500 ML; COMPARISON: CT abdomen pelvis w con* [id number] 01/25/2021 2:02 PM RADIATION DOSE METRICS: Total DLP (mGy-cm): 1765.85 FINDINGS: Limitations: The absence of intravenous contrast lessens the sensitivity of this study for solid organ abnormalities. Lungs: There is dependent density at the lung bases which may represent some dependent atelectasis or mild infiltrate. Liver: There is no focal abnormality within the liver. Gallbladder and bile ducts: The gallbladder is normal. Pancreas: The pancreas is normal. Spleen: The spleen is normal. Adrenal glands: The adrenal glands are normal. Kidneys and ureters: The kidneys are normal. There is no evidence of hydronephrosis. There is no evidence of renal or ureteral calcifications. Stomach and bowel: There is no evidence of colitis/diverticulitis. Appendix: No evidence of appendicitis. Intraperitoneal space: There is no evidence of free intraperitoneal fluid. Vasculature: The aorta is normal. There is no evidence of an abdominal aortic aneurysm. Lymph nodes: There is no evidence of lymphadenopathy. Urinary bladder: Urinary bladder is markedly dilated. Bladder volume is approximately 1100 cc. Reproductive: Unremarkable as visualized. Bones/joints: Unremarkable. No acute fracture. Soft tissues: Unremarkable. CT/CT abdomen pelvis wo con [id number] IMPRESSION: 1. Mild basilar infiltrate or atelectasis 2. Markedly dilated urinary bladder.
[2021-04-16] MEDS: iohexol 300 mg/mL 50 mL Btl PO (22:44)
[2021-04-16] MEDS: pantoprazole 40 mg SDV IVP (22:56)
[2021-04-16 23:06] LABS: Adenovirus Not Detected (NOT DETECT); Chlamydia Pneumoniae Not Detected (NOT DETECT); Coronavirus 229E,HKU1,NL63,OC4 Not Detected (NOT DETECT); Human Metapneumovirus Not Detected (NOT DETECT); Human Rhinovirus/Enterovirus Not Detected (NOT DETECT); Influenza A Not Detected (NOT DETECT); Influenza A H1 Not Detected (NOT DETECT); Influenza A H1-2009 Not Detected (NOT DETECT); Influenza A H3 Not Detected (NOT DETECT); Influenza B Not Detected (NOT DETECT); Mycoplasma Pneumoniae Not Detected (NOT DETECT); Parainfluenza Virus Type 1 Not Detected (NOT DETECT); Parainfluenza Virus Type 2 Not Detected (NOT DETECT); Parainfluenza Virus Type 3 Not Detected (NOT DETECT); Parainfluenza Virus Type 4 Not Detected (NOT DETECT); Respiratory Syncytial Virus A Not Detected (NOT DETECT); Respiratory Syncytial Virus B Not Detected (NOT DETECT); SARS-COV-2 Not Detected (NOT DETECT)
[2021-04-16] MEDS: sodium chloride 0.9% 1,000 ML 100 ML IV (23:50)
[2021-04-17] VITALS (63 sets, daily range): BP systolic 78–120; BP diastolic 51–82; PULSE 50–74; RESP 12–20; TEMP 36.6–37.1; O2SAT 89–97; BMI 29.7
[2021-04-17 00:57] LABS: Glucose Point of Care 153 mg/dL (70-110)
[2021-04-17 02:14] LABS: Glucose Point of Care 132 mg/dL (70-110)
[2021-04-17] MEDS: acetaminophen 325 mg Tablet 650 MG PO ×3 (03:01→18:02)
[2021-04-17 04:43] LABS: Basophils % 0.4 %; Eosinophils # 0.3 10^3/uL (0.0-0.8); Eosinophils % 7.1 %; Hematocrit 39.2 % (42.0-52.0); Hemoglobin 13.1 g/dL (11.7-16.6); Lymphocytes # 1.9 10^3/uL (0.8-4.8); Lymphocytes % 40.3 %; Mean Corpuscular HGB Conc 33.4 g/dL (30.0-36.0); Mean Corpuscular Hemoglobin 28.1 pg (28.0-34.0); Mean Corpuscular Volume 83.9 fl (80-94); Mean Platelet Volume 10.3 fL (7.4-10.4); Monocytes # 0.4 10^3/uL (0.2-0.9); Monocytes % 8.6 %; Neutrophils # 2.02 10^3/uL (1.8-7.7); Neutrophils % 43.6 %; Nucleated Red Blood Cells % 0 %; Platelet Count 176 10^3/cmm (130-400); Red Blood Count 4.67 10^6/uL (4.1-5.3); Red Cell Distribution Width 12.2 % (12.1-15.1); White Blood Count 4.6 10^3/uL (4.0-10.0)
[2021-04-17 05:02] LABS: Alanine Aminotransferase 8 U/L (0-41); Albumin Level 3.5 g/dL (3.5-5.2); Alkaline Phosphatase 88 IU/L (40-130); Anion Gap 12.8 (5-19); Aspartate Amino Transferase 9 U/L (0-40); Blood Urea Nitrogen 8 mg/dL (6-20); Calcium 8.3 mg/dL (8.5-10.5); Carbon Dioxide 24 mmol/L (22-29); Chloride 106 mmol/L (98-107); Globulin 1.8 g/dL (1.3-4.6); Glomerular Filtration Rate 126.9 mL/min (90-130); Glucose 118 mg/dL (65-115); Magnesium 1.8 mg/dL (1.7-2.3); Osmolality Calculated 287 mOsm/kg (285-295); Potassium 3.8 mmol/L (3.5-5.1); Sodium 139 mmol/L (136-145); Total Bilirubin 0.4 mg/dL (0.15-1.2); Total Protein 5.3 g/dL (6.6-8.7)
--- NOTE | 2021-04-17 06:20 | PC.NURSE ---
Shift Note Frequent safety and comfort rounds continue. Orders and/or nursing care completed as indicated. Patient monitored for response to intervention and treatment(s). Education provided includes medication with side effects, fall precautions, treatment goals, S/S to report. Patient verbalized understanding. GTT's titrated per protocol. Patient easily becomes agitated, refusing care at times. Will continue to monitor.
--- NOTE | 2021-04-17 07:37 | PM.ACPR ---
Acute Procedures Central Line Placement^: Right Femoral: Time out performed: Yes Patient placed on monitor/pulse ox: Yes MD prep: mask, gown and gloves Central line prep: Chlorhexidine scrub Local anesthesia used: lidocaine 1% Ultrasound used for placement: Yes Central line lumen inserted: triple Post procedure: sutured in place, good blood return, all ports aspirated, flushed, capped and sterile dressing applied Post procedure x-ray: tip of catheter in good position Patient tolerated procedure: well and no complications Complications: none Additional comments: Critical care Time spent total 60 Mins The high probability of a clinically significant, sudden or life threatening deterioration of the patient's [] system(s) required my full and direct attention, intervention and personal management. The critical care time is as shown. This time is in addition to time spent performing any reported procedures but includes the following: [x] Data and vital sign review and interpretation [x] Patient assessment, examination and intervention [x] Documentation [x] Medication orders and management
[2021-04-17] MEDS: sodium chloride 0.9% 1,000 ML 100 ML IV (10:04)
--- NOTE | 2021-04-17 18:04 | PC.NURSE ---
1805 C/o of chest pain when moving or turning, after eating dinner, and has had previously and took hydrocodone and it helped it. He ask for tylenol for it, denies any pain radiating anywhere and no shortness of breath. Tylenol 650 given po.
--- NOTE | 2021-04-17 18:31 | P.PN_ITS ---
Subjective Subjective: Interval history: Feeling achy all over, but otherwise is okay. Denies any headache, dizziness, shortness of breath, nausea, vomiting, abdominal pain or discomfort. Tired/somnolent. Vitals/I&O/Wt Last Vital Signs Temp 98.0 F 04/17/21 14:00 Pulse 56 L 04/17/21 18:00 Resp 16 04/17/21 18:00 BP 84/56 04/17/21 18:00 Pulse Ox 94 04/17/21 16:00 04/17/21 04/17/21 04/17/21 06:59 14:59 22:59 Intake Total 512.968 / 2920.968 1243.840 / 1243.840 202.388 / 1446.228 Output Total 1000 / 1000 2200 / 2200 Balance -487.032 / 3155.397 4775.840 / 1243.840 -1997.612 / -753.772 Weight last 48 hrs Weight 96.706 kg Weight 95.254 kg Physical Exam Const: COMMON NORMALS: no acute distress GENERAL APPEARANCE: cooperative and lethargic NUTRITIONAL APPEARANCE: overweight ORIENTATION/CONSCIOUSNESS: Yes lethargic OTHER: Awakens to voice. HENMT: COMMON NORMALS: oropharynx normal Neck/C-Spine: COMMON NORMALS: no JVD Resp: COMMON NORMALS: normal respiratory effort and clear to auscultation bilaterally AUSCULTATION: clear to auscultation bilaterally Cardio: COMMON NORMALS: no JVD, regular rhythm, S1 normal heart sound present, S2 normal heart sound present and No murmurs present (Cardio) RHYTHM: regular rhythm HEART SOUNDS: S1 normal heart sound present and S2 normal heart sound present GI: COMMON NORMALS: Normal to inspection, nondistended, normoactive bowel sounds present, Soft to palpation and non-tender PALPATION: Yes Soft to palpation Extremity: COMMON NORMALS: no joint enlargement and no pedal edema Neuro: COMMON NORMALS: moves all extremities SENSORIUM/ORIENTATION: Yes lethargic Skin: COMMON NORMALS: no rashes or lesions noted GENERAL SKIN EXAM: no rashes or lesions noted OTHER: Seborrheic dermatitis of face Data : 04/17/21 04:33 04/17/21 04:33 A&P Assessment and plan (1) Cardiogenic shock: Gradually improving. Weaning down on Levophed requirement. Continues to need pressor support. Persistently bradycardic in the 50s. With hypovolemic shock on presentation. Receiving IV hydration. With CHF history we will hold additional IVF for now, request NICOM eval. Continue to wean off pressors tolerating. Continue supportive care. Telemetry monitoring. ICU Status: Acute (2) Intentional drug overdose: Continue one-to-one sitter. Will need additional evaluation by psychiatry. Likely admission to neuropsychiatric unit once hemodynamically stable. Status: Acute (3) Suicide attempt by drug overdose: Status: Acute (4) Non-ischemic cardiomyopathy: Status: Acute (5) Psychosis: Status: Chronic (6) Pulmonary embolism: Status: Acute Additional A&P Information History of pulmonary embolism: Would anticipate about 11 days worth of therapeutic activity based on half life in overweight. #CODE STATUS full code #DVT prophylaxis: Eliquis 30 tab, would anticipate about 11 days worth of therapeutic activity based on half life in overweight. Attestations Medical Necessity Statement*: Continue admission for management of shock f ollowing overdose with multiple medications, suicide attempt. Critical Care Time: The high probability of a clinically significant, sudden or life threatening deterioration of the patient's cardiovascular, hemodynamic system(s) required my full and direct attention, intervention and personal management. The critical care time is as shown. 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
--- NOTE | 2021-04-17 19:12 | PC.PHAR ---
Spoke with Po[facility] Control [facility] regarding this patient and when it would be safe to resume the eliquis again. They advised this Tuesday04/19/21 at 0900 would be fine. They are already familiar with this patient and are following his case.
[2021-04-17] MEDS: pantoprazole 40 mg SDV IVP (21:37)
[2021-04-18] VITALS (58 sets, daily range): BP systolic 77–110; BP diastolic 41–73; PULSE 65–95; RESP 12–24; TEMP 36.6–37.1; O2SAT 88–96
--- NOTE | 2021-04-18 03:13 | PC.NURSE ---
Shift Note Frequent safety and comfort rounds continue. Orders and/or nursing care completed as indicated. Patient monitored for response to intervention and treatment(s). Education provided includes turn, cough and deep breathing, fall precautions, medications with side effects. Patient verbalized understanding of education. Lungs deminished (unchanged), on RA. Patient refused to take deep breaths and cough. Patient remained extremely sleepy. Lines and tubes patient. Gtt's titrated per protocol. Will continue to monitor.
[2021-04-18 04:09] LABS: Basophils % 0.3 %; Eosinophils # 0.4 10^3/uL (0.0-0.8); Eosinophils % 7.3 %; Hematocrit 37.7 % (42.0-52.0); Hemoglobin 12.7 g/dL (11.7-16.6); Lymphocytes # 1.5 10^3/uL (0.8-4.8); Lymphocytes % 25.2 %; Mean Corpuscular HGB Conc 33.7 g/dL (30.0-36.0); Mean Corpuscular Hemoglobin 27.9 pg (28.0-34.0); Mean Corpuscular Volume 82.9 fl (80-94); Mean Platelet Volume 10.1 fL (7.4-10.4); Monocytes # 0.5 10^3/uL (0.2-0.9); Monocytes % 8.5 %; Neutrophils # 3.53 10^3/uL (1.8-7.7); Neutrophils % 58.5 %; Nucleated Red Blood Cells % 0 %; Platelet Count 170 10^3/cmm (130-400); Red Blood Count 4.55 10^6/uL (4.1-5.3); Red Cell Distribution Width 12.3 % (12.1-15.1)
[2021-04-18 04:31] LABS: Alanine Aminotransferase 24 U/L (0-41); Albumin Level 3.3 g/dL (3.5-5.2); Alkaline Phosphatase 79 IU/L (40-130); Anion Gap 17.7 (5-19); Aspartate Amino Transferase 24 U/L (0-40); Blood Urea Nitrogen 7 mg/dL (6-20); Calcium 8.6 mg/dL (8.5-10.5); Carbon Dioxide 20 mmol/L (22-29); Chloride 106 mmol/L (98-107); Creatinine Clr Calc Pharmacy 149.9623; Globulin 2.1 g/dL (1.3-4.6); Glomerular Filtration Rate 108.8 mL/min (90-130); Glucose 80 mg/dL (65-115); Osmolality Calculated 287 mOsm/kg (285-295); Potassium 3.7 mmol/L (3.5-5.1); Sodium 140 mmol/L (136-145); Total Bilirubin 0.4 mg/dL (0.15-1.2); Total Protein 5.4 g/dL (6.6-8.7)
--- NOTE | 2021-04-18 13:11 | P.PN_ITS ---
Subjective Subjective: Interval history: He is having epigastric discomfort. Denies having the urge to vomit. Denies headache, no trouble breathing. No chest pain or pressure. Vitals/I&O/Wt Last Vital Signs Temp 98.4 F 04/18/21 08:00 Pulse 69 04/18/21 12:00 Resp 16 04/18/21 12:00 BP 97/65 04/18/21 12:00 Pulse Ox 92 04/18/21 12:00 04/17/21 04/18/21 04/18/21 22:59 06:59 14:59 Intake Total 233.186 / 1477.026 235.966 / 1712.992 250.922 / 250.922 Output Total 2850 / 2850 Balance -2616.814 / -1372.974 235.966 / -1137.008 250.922 / 250.922 Weight last 48 hrs Weight 96.706 kg Weight 95.254 kg Physical Exam Const: COMMON NORMALS: no acute distress and alert NUTRITIONAL APPEARANCE: overweight ORIENTATION/CONSCIOUSNESS: Yes awake HENMT: COMMON NORMALS: oropharynx normal Neck/C-Spine: COMMON NORMALS: no JVD Resp: COMMON NORMALS: normal respiratory effort and clear to auscultation bilaterally AUSCULTATION: clear to auscultation bilaterally Cardio: COMMON NORMALS: no JVD, regular rhythm, S1 normal heart sound present, S2 normal heart sound present and No murmurs present (Cardio) RHYTHM: regular rhythm HEART SOUNDS: S1 normal heart sound present and S2 normal heart sound present GI: COMMON NORMALS: Normal to inspection, nondistended, normoactive bowel sounds present, Soft to palpation and non-tender PALPATION: Yes Soft to palpation Extremity: COMMON NORMALS: no joint enlargement and no pedal edema Neuro: COMMON NORMALS: moves all extremities SENSORIUM/ORIENTATION: Yes alert Skin: COMMON NORMALS: no rashes or lesions noted GENERAL SKIN EXAM: no rashes or lesions noted OTHER: Seborrheic dermatitis of face Data : 04/18/21 03:34 04/18/21 03:34 A&P Assessment and plan (1) Cardiogenic shock: Slowly weaning off pressor, some fluctuation requirement, this morning up to 4 mcg/min Levophed, but overall improving. Continue to wean off as tolerated. Continues to need pressor support. Improving bradycardia. With hypovolemic shock on presentation. Received IV hydration. P.o. intake is tolerating, regular diet. Status: Acute (2) Intentional drug overdose: Continue one-to-one sitter. Will need additional evaluation by psychiatry. Likely admission to neuropsychiatric unit once hemodynamically stable. Status: Acute (3) Suicide attempt by drug overdose: Status: Acute (4) Non-ischemic cardiomyopathy: Status: Acute (5) Psychosis: Status: Chronic (6) Pulmonary embolism: Status: Acute Additional A&P Information History of pulmonary embolism: Appreciate Poison Control Center recommendations, may restart Eliquis tomorrow morning. Suboxone use: At home reports using Suboxone, although reports using it as nee ded at home. Last prescription was 30-day supply on 02/25. #CODE STATUS full code #DVT prophylaxis: Restart Eliquis Tuesday. Attestations Medical Necessity Statement*: Continue admission for management of hypotension, weaning of pressor support following multiple medication overdose and suicide attempt, pending additional psychiatric assessment management. Critical Care Time: The high probability of a clinically significant, sudden or life threatening deterioration of the patient's cardiovascular/hemodynamic system(s) required my full and direct attention, intervention and personal management. The critical care time is as shown. 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
--- NOTE | 2021-04-18 14:52 | ECG_ITS ---
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 Measurements Intervals [place] Rate: 64 P: 53 VT: 167 QRS: -58 QRSD: 109 T: 0 QT: 259 QTc: 269 Interpretive Statements SINUS RHYTHM LEFT AXIS DEVIATION [QRS AXIS < -30] NONSPECIFIC T-WAVE ABNORMALITY Compared to ECG 04/16/2021 16:02:24 T-wave abnormality now present Incomplete right bundle-branch block no longer present Electronically Signed On 04-19-2021 20:00:29 HUMAN RESOURCES TRAINING MANAGER by Phuc Valenzuela M.D. [email or web address] Dielectrricsmerit health woman's hospitalGreen Generation Solutionsohiohealth berger hospital.[employer]/store/OM/[id number]
--- NOTE | 2021-04-18 14:52 | XRR_ITS ---
PROCEDURE INFORMATION: Exam: XR Chest Exam date and time: 04/18/2021 2:52 PM Age: 36 years old Clinical indication: Angina pectoris; Patient HX: Chest pain TECHNIQUE: Imaging protocol: XR of the chest. Views: 1 view. Total images: 1 COMPARISON: CR (CHEST, ) 04/16/2021 10:10 PM FINDINGS: Lungs: No visible active interstitial or alveolar airspace disease. Pleural spaces: Unremarkable. No pleural effusion. No pneumothorax. Heart/Mediastinum: Cardiac structures and configuration within normal limits. Bones/joints: Unremarkable. XR/XR chest 1V portable [id number] IMPRESSION: Nonacute.
[2021-04-18] MEDS: acetaminophen 325 mg Tablet 650 MG PO (14:59)
--- NOTE | 2021-04-18 15:06 | PC.NURSE ---
dr robb contacted regarding pt c/o chest pain where his previous PE was at a 8. no change in physical assessment. orders given for cardiac work up and encouraged tylenol administration
[2021-04-18 15:51] LABS: Troponin(5th) Baseline 7 ng/L (0-15)
--- NOTE | 2021-04-18 16:52 | ECG_ITS ---
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 Measurements Intervals [place] Rate: 74 P: 82 MI: 148 QRS: -18 QRSD: 105 T: 68 QT: 435 QTc: 486 Interpretive Statements SINUS RHYTHM MODERATE T-WAVE ABNORMALITY, CONSIDER ANTEROLATERAL ISCHEMIA [-0.1+ mV T-WAVE IN V3-V6] MODERATE T-WAVE ABNORMALITY, CONSIDER INFERIOR ISCHEMIA [-0.1+ mV T-WAVE IN II/aVF] Compared to ECG 04/18/2021 15:16:06 Possible ischemia now present Left-axis deviation no longer present T-wave abnormality still present Electronically Signed On 04-19-2021 20:11:52 MANAGER PERFORMANCE by Phuc Valenzuela M.D. [email or web address] [facility].[employer]/store/OM/[id number]
[2021-04-18 18:06] LABS: Troponin 5 2HR 6.69 ng/L (0-15)
[2021-04-18 18:16] LABS: Troponin 5 2HR Delta -0.31 ABS# (0-10)
--- NOTE | 2021-04-18 18:36 | PC.NURSE ---
Shift Note Frequent safety and comfort rounds continue. Pt complaint of abdomen and chest pain. Tyelnol attempted for pain control, no nausea or vomiting related to the c/o pain. troponin, ekg, chest xray ordered. final order received from the application of a lidocaine patch this evening and 1 dose of IV tyenol to be given later if the lidocaine patch is ineffective. Orders and/or nursing care completed as indicated. Patient monitored for response to intervention and treatment(s). Education provided includes medications and treatment plan. Will continue to monitor.
[2021-04-18] MEDS: pantoprazole 40 mg SDV IVP (20:50)
--- NOTE | 2021-04-18 20:52 | ECG_ITS ---
[facility] Test Date: 2021-04-18 Pat Name: Shayan Dickson Department: Room: ICU11 Gender: Male [employer]: : [id number] Requested By: Lawrence Forrester Order Number: [id number] Krzysztof MD: Phuc Valenzuela M.D. Measurements Intervals [place] Rate: 73 P: 49 NM: 161 QRS: -48 QRSD: 105 T: 0 QT: 386 QTc: 427 Interpretive Statements SINUS RHYTHM LEFT AXIS DEVIATION [QRS AXIS < -30] PATTERN CONSISTENT WITH PULMONARY DISEASE INCOMPLETE RIGHT BUNDLE BRANCH BLOCK [90+ ms QRS DURATION, TERMINAL R IN V1/V2, 40+ ms S IN I/aVL/V4/V5/V6] Compared to ECG 04/18/2021 17:39:22 Left-axis deviation now present Incomplete right bundle-branch block now present T-wave abnormality no longer present Possible ischemia no longer present Electronically Signed On 04-19-2021 20:13:32 CUTTER HEAD SHARPENER by Phuc Valenzuela M.D. [id number]
[2021-04-18 21:42] LABS: Troponin 5 6HR 7.07 ng/L (0-15); Troponin 5 6HR Delta 0.07 ng/L (0-12)
[2021-04-19] VITALS (32 sets, daily range): BP systolic 87–139; BP diastolic 46–94; PULSE 60–94; RESP 13–27; TEMP 36.6–37.1; O2SAT 89–98
[2021-04-19 05:29] LABS: Basophils % 0.5 %; Eosinophils # 0.4 10^3/uL (0.0-0.8); Eosinophils % 6.7 %; Hematocrit 38.5 % (42.0-52.0); Hemoglobin 12.8 g/dL (11.7-16.6); Lymphocytes # 1.7 10^3/uL (0.8-4.8); Lymphocytes % 27.3 %; Mean Corpuscular HGB Conc 33.2 g/dL (30.0-36.0); Mean Corpuscular Hemoglobin 28.2 pg (28.0-34.0); Mean Corpuscular Volume 84.8 fl (80-94); Mean Platelet Volume 10.2 fL (7.4-10.4); Monocytes # 0.5 10^3/uL (0.2-0.9); Monocytes % 8.7 %; Neutrophils # 3.44 10^3/uL (1.8-7.7); Neutrophils % 56.6 %; Nucleated Red Blood Cells % 0 %; Platelet Count 167 10^3/cmm (130-400); Red Blood Count 4.54 10^6/uL (4.1-5.3); Red Cell Distribution Width 12.4 % (12.1-15.1); White Blood Count 6.1 10^3/uL (4.0-10.0)
[2021-04-19 05:47] LABS: Alanine Aminotransferase 20 U/L (0-41); Albumin Level 3.5 g/dL (3.5-5.2); Alkaline Phosphatase 85 IU/L (40-130); Anion Gap 12.6 (5-19); Aspartate Amino Transferase 15 U/L (0-40); Blood Urea Nitrogen 9 mg/dL (6-20); Carbon Dioxide 25 mmol/L (22-29); Chloride 107 mmol/L (98-107); Globulin 1.8 g/dL (1.3-4.6); Glucose 91 mg/dL (65-115); Osmolality Calculated 290 mOsm/kg (285-295); Potassium 3.6 mmol/L (3.5-5.1); Sodium 141 mmol/L (136-145); Total Bilirubin 0.3 mg/dL (0.15-1.2); Total Protein 5.3 g/dL (6.6-8.7)
[2021-04-19] MEDS: apixaban 5 mg Tablet PO ×2 (08:28→20:16)
--- NOTE | 2021-04-19 10:30 | PC.SOCIAL ---
IMM Update pg 2 of IMM updated and reviewed w/ patient. Copy provided and copy placed in chart.
--- NOTE | 2021-04-19 11:30 | PM.PN ---
Subjective Subjective: Interval history: Complaining of chest chest pain. Discussed with him results of EKG and troponin series which were not suggestive of acute ischemia, as well as results of chest x-ray which was normal. He reports pleuritic quality to the pain, and relates it to the same pain he has been having with his PE. Discussed with him Eliquis level would have been therapeutic due to overdose and anticipated safe to restart this morning as per discussion with poison control. Discussed we will continue Tylenol and conservative pain control measures. Vitals/I&O/Wt Last Vital Signs Temp 97.9 F 04/19/21 07:45 Pulse 70 04/19/21 08:15 Resp 13 04/19/21 08:15 BP 96/63 04/19/21 08:15 Pulse Ox 93 04/19/21 08:15 04/18/21 04/19/21 04/19/21 22:59 06:59 14:59 Intake Total 252.478 / 870.512 238 / 1108.512 360 / 360 Output Total 975 / 975 650 / 1625 Balance -722.522 / -104.488 -412 / -516.488 360 / 360 Physical Exam Const: COMMON NORMALS: no acute distress and alert GENERAL APPEARANCE: cooperative NUTRITIONAL APPEARANCE: overweight ORIENTATION/CONSCIOUSNESS: Yes awake HENMT: COMMON NORMALS: oropharynx normal Neck/C-Spine: COMMON NORMALS: no JVD Resp: COMMON NORMALS: normal respiratory effort and clear to auscultation bilaterally AUSCULTATION: clear to auscultation bilaterally Cardio: COMMON NORMALS: no JVD, regular rhythm, S1 normal heart sound present, S2 normal heart sound present and No murmurs present (Cardio) RHYTHM: regular rhythm HEART SOUNDS: S1 normal heart sound present and S2 normal heart sound present GI: COMMON NORMALS: Normal to inspection, nondistended, normoactive bowel sounds present, Soft to palpation and non-tender PALPATION: Yes Soft to palpation Extremity: COMMON NORMALS: no joint enlargement and no pedal edema Neuro: COMMON NORMALS: moves all extremities SENSORIUM/ORIENTATION: Yes alert Skin: COMMON NORMALS: no rashes or lesions noted GENERAL SKIN EXAM: no rashes or lesions noted OTHER: Seborrheic dermatitis of face Data : 04/19/21 04:46 04/19/21 04:46 A&P Assessment and plan (1) Cardiogenic shock: Resolved. Bradycardia resolved. Doing well off pressors. DC central line. With hypovolemic shock on presentation. Received IV hydration. Tolerating regular diet. DC García. Status: Acute (2) Intentional drug overdose: Continue one-to-one sitter. Upon discussion with her psychiatrist he will transfer to neuropsychiatric unit directly to be assessed there. Status: Acute (3) Suicide attempt by drug overdose: As above Status: Acute (4) Non-ischemic cardiomyopathy: Status: Acute (5) Psychosis: Status: Chronic (6) Pulmonary embolism: Status: Acute Additional A&P Information History of pulmonary embolism: Appreciate Poison Control Center recommendations, restarted Eliquis this morning. Suboxone use: At home reports using Suboxone, although reports using it as needed at home. Last prescription was 30-day supply on 02/25. #CODE STATUS full code #DVT prophylaxis: Restart Eliquis Tuesday morning. Attestations Medical Necessity Statement*: Continue assessment and management following suicidal attempt. 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
--- NOTE | 2021-04-19 12:25 | PC.NURSE ---
Patient transferred to NPU at 1216. Nurse at station notified and chart left with staff. Patient ambulatory in tripathi upon this nurses departure.
--- NOTE | 2021-04-19 13:39 | W.PM.NPUH&PS ---
Providers/Chief Complaint Admitting Physician: Gerardo Knapp MD Chief Complaint: SI HPI NPU History of Present Illness Shayan Dcikson is a 36 year old male who was admitted to our emergency department with the following report: Chief Complaint: Psychiatric Symptoms Stated Complaint: SI Time Seen by Provider: 04/16/21 15:13 Source: patient Mode of arrival: ambulatory Limitations: no limitations History of Present Illness: HPI Narrative: 36-year-old male presents to the ER after intentionally overdosing on multiple medications 2 hours prior to arrival.Approximate amounts below: Eliquis 5 mg, #30 Thorazine 50 mg, #60 Carvedilol 3.125mg #40 Lunesta 1 mg #20 Vistaril 25 mg #100 Clonazepam 0.5 mg #40 Denies coingestion of alcohol or other drugs. This is not the first time he has attempted suicide by overdose. complaint: suicidal ideation and feels depressed Associated symptoms: Reports auditory hallucinations, visual hallucinations, depression and suicidal ideation He was in the ICU for several days requiring pressor agents to keep his blood pressure up after the overdose. Was transferred to psychiatry today for definitive treatment of these issues. He has not required any medications for his blood pressure recently. He said that he was doing great up until about 1 week prior to admission. He had not been able to get into a doctor for Suboxone and since his discharge in late January he has only taken half dose of the Suboxone. He had an appointment with a psychiatrist but his uncle had Lasix surgery and he missed that appointment. He was told that he should have called and canceled the appointment and it might not have been counted against him as it is if he misses an appointment. He has an appointment at a pain clinic in approximately 1 month and is hopeful that they will continue his Suboxone. He feels like the Latuda 40 mg was working very well. He said that it has really helped his mood. Unfortunately about 1 week ago he started hearing the voices again. They gotten worse and worse and started causing anxiety. They were telling him he should kill himself. He is started just laying in bed becoming more and more depressed. He took his whole bottle of Thorazine and it did make the voices go away but he thought that they would come back so he took all the other medications listed in order to try to kill himself. He still wishes he had been successful. He acknowledges that medication adjustments very well could be successful in making the voices go away. They are very quiet now, probably because of all the Thorazine that she took. He would like to increase his Thorazine to 250 or 300 mg. We need to take it slow because he has not needed medications to support his blood pressure recently. Since discharge summary from January for context. OD Brief History: HPI NPU History of Present Illness Shayan Dickson is a 35 year old male he was transferred from the ICU after a serious overdose attempt. They said he was almost successful this time. There is no discharge summary at this time. This is the report on admission: Shayan Dickson is a 35 year old male with PMH polysubstabnce abuse brought in by ambulanace after family noted he has taken multiple pills of clonidie and trazodone at home. Upon arrival patient was unresponsive, GCS 7, intubated for low GCS and airway protection. Noted to have clonus prior to intubation. Pos intubation he has been hypotensive, needing levophed @10. Currently on mechanical ventilation, sedated with propofol and fentanyl. No futher history available at this time. Diagnostics show mild leukocytosis, elevated trop >100, rigth side PE I think that should have been clonazepam instead of clonidine. They found that there were 27 clonazepam pills missing from his bottle. His family said that he had also taken at least 6 trazodone. He has been admitted here several times. The following is the HPI from the most recent hospitalization. The discharge summary has not yet been done. He was found to have pulmonary embolisms and is on Eliquis. He was initially refusing treatment but then accepted treatment. He says that he was told that his heart was only 35% effective. There is a perfusion scan which shows his ejection fraction is 66% and the results says that he has normal left ventricular function. He was admitted to the neuropsychiatry unit for definitive treatment of his problems. He says that he did not intend to harm himself. He says he has not had any depression or suicidal ideation recently. He has been on Suboxone 8-2 twice a day for the last 5 years. He says when he has access to Suboxone he does not use opiates. This past summer he started using Imodium at 144-200 tablets every third day to get an opiate effect. He said that he was not on clonazepam or other psychotropic medications when he was doing that. He says that he did not try to kill himself but took 200 mg of Imodium in order to get an opiate effect. He says that he took 1 extra clonazepam and he is attributing that to his becoming unresponsive and so ill. That does not seem logical but possibly if he took 27 clonazepam and extra trazodone could have caused that result. He says that when he takes the Thorazine 50 mg 3 times a day it works very well and he does not hear voices. He says that he has tried Geodon and Invega without benefit. He said the Latuda made him happy but caused his muscles to stretch. He liked the effect otherwise. Abilify caused him to feel like he was on uppers. He took Zyprexa to help him sleep when he was in a psychiatric hospital as a child for 4 months. He does not believe he has taken it since then. He has not been sleeping well. He is willing to change his Thorazine to bedtime along with 100 mg of trazodone. He wants to restart the Suboxone and will discontinue his current opiate so that he will be on withdrawal tomorrow. He also said that he would agree to try a very low-dose of Vraylar. Diagnoses at Discharge Discharge Diagnosis (1) Elevated troponin: Status: Acute (2) Non-ischemic cardiomyopathy: Status: Acute (3) QT prolongation: Status: Acute (4) Drug overdose, intentional: Status: Acute Qualifiers: Encounter type: initial encounter Qualified Code(s): T50.902A - Poisoning by unspecified drugs, medicaments and biological substances, intentional self-harm, initial encounter Prescriptions: New chlorpromazine 50 mg Tablet 150 mg PO BEDTIME 30 Days Qty: 90 RF: 1 Latuda 20 mg Tablet 40 mg PO 1700 30 Days Qty: 60 RF: 1 buprenorphine-naloxone 4-1 mg Film 2 film sublingual 0900,2100 30 Days Qty: 120 RF: 0 Continued pantoprazole 40 mg Tablet,Delayed Release (Dr/Ec) 40 mg PO BID 30 Days Qty: 60 RF: 1 bisacodyl 5 mg Tablet,Delayed Release (Dr/Ec) 10 mg PO DAILY PRN (Reason: Constipation (see protocol)) 30 Days Qty: 60 RF: 1 hydroxyzine pamoate 25 mg Capsule 50 mg PO Q6H PRN (Reason: Anxiety or Sleep) 30 Days Qty: 180 RF: 1 clonazepam 0.5 mg tablet 0.5 mg PO BID@,21 30 Days Qty: 60 RF: 0 trazodone 100 mg Tablet 100 mg PO BEDTIME PRN (Reason: Insomnia) 30 Days Qty: 30 RF: 1 Lunesta 1 mg tablet 1 mg PO BEDTIME 30 Days Qty: 30 RF: 1 Discontinued chlorpromazine 25 mg Tablet 50 mg PO TID 30 Days Qty: 240 RF: 1 Meds NPU Home Medications Medication Instructions Recorded Confirmed Last Taken Type apixaban 5 mg tablet 5 mg PO BID #60 tab 04/06/21 04/16/21 Unknown Rx aspirin 81 mg tablet,delayed 81 mg PO DAILY 04/06/21 04/16/21 Unknown History release carvedilol 3.125 mg tablet 3.125 mg PO BID #60 tab 04/06/21 04/16/21 Unknown Rx chlorpromazine 50 mg tablet 150 mg PO BEDTIME 30 Days #90 tab 04/06/21 04/16/21 Unknown Rx clonazepam 0.5 mg tablet 0.5 mg PO BID@ 30 Days #60 tab 04/06/21 04/16/21 Unknown Rx eszopiclone 1 mg tablet 1 mg PO BEDTIME 30 Days #30 tab 04/06/21 04/16/21 Unknown Rx hydroxyzine pamoate 25 mg capsule 50 mg PO Q6H PRN 30 Days #180 cap 04/06/21 04/16/21 Unknown Rx losartan 25 mg tablet 25 mg PO DAILY #30 tab 04/06/21 04/16/21 Unknown Rx lurasidone 20 mg tablet 40 mg PO 1700 30 Days #60 tab 04/06/21 04/16/21 Unknown Rx spironolactone 25 mg tablet 25 mg PO DAILY #30 tab 04/06/21 04/16/21 Unknown Rx trazodone 100 mg tablet 100 mg PO BEDTIME PRN 30 Days #30 04/06/21 04/16/21 Unknown Rx tab Allergies Allergy/AdvReac Type Severity Reaction Status Date / Time mushroom Allergy Unknown Unknown Verified 04/16/21 15:01 escitalopram [From Lexapro] Allergy ALGY-Anaphy Verified 04/16/21 15:01 laxis NSAIDS (Non-Steroidal Allergy ADR-Abdominal Verified 04/16/21 15:01 Anti-Inflamma Pain venlafaxine [From Effexor] Allergy ALGY-Anaphy Verified 04/16/21 15:01 laxis PFSH NPU PFSH: Medical History Opiate misuse Schizophrenia Suicide attempt Ulcerative colitis Surgical History History of appendectomy Social History Smoking and tobacco status: current every day smoker Alcohol intake: current Mental Status Exam MSE Comments: This is a 36-year-old overweight male who appears approximately his stated age and is in no acute distress. He is dressed in hospital scrubs with a full hayes. He is pleasant and cooperative with the evaluation. psychomotor activity is normal. Speech is at a regular rate and rhythm, normal volume, good articulation, not pressured. Alert, oriented X3 Attention and concentration appears to be good. Memory is intact Mood is depressed. Affect is mildly dysphoric. Thought process is logical and goal-directed. Thought content: Denies auditory and visual hallucinations. No delusions or paranoia are noted. He continues to wish that he had been successful in killing himself. He denies any plan to do anything to harm himself at this time. He denies any homicidal ideation. Fund of knowledge is average. Insight and judgment appear to be impaired. Impulse control is impaired. Vitals/I&O/Wt Last Vital Signs Temp 97.9 F 04/19/21 12:30 Pulse 94 04/19/21 12:30 Resp 17 04/19/21 12:30 BP 139/94 04/19/21 12:30 Pulse Ox 95 04/19/21 12:30 04/18/21 04/19/21 04/19/21 22:59 06:59 14:59 Intake Total 252.478 / 870.512 238 / 1108.512 360 / 360 Output Total 975 / 975 650 / 1625 300 / 300 Balance -722.522 / -104.488 -412 / -516.488 60 / 60 Data NPU : 04/19/21 04:46 04/19/21 04:46 A&P Assessment and plan (1) Pulmonary embolism: Status: Acute (2) Schizophrenia: Status: Acute Qualifiers: Schizophrenia type: unspecified Qualified Code(s): F20.9 - Schizophrenia, unspecified (3) Opiate misuse: Status: Acute (4) Suicide attempt by drug overdose: Status: Acute (5) Cluster B personality disorder: Status: Chronic Additional A&P Information This is a 36-year-old male with schizophrenia with multiple suicide attempts recently. The lethality of these attempts continues to increase. Plan: 1. We will restart medications gradually because he has recently required medications to boost his blood pressure. We will start with Thorazine 100 mg, trazodone 100 mg, Latuda 40 mg and Suboxone 8-2 once daily. 2. Continue every 15 minute checks for safety. 3. Encourage individual, group and milieu therapies. 4. Encourage sober living treatment after discharge at the highest level of care to which he is willing to commit. 5. We will monitor for safety for himself in the community prior to discharge. Involuntary Hold Information 96 Hour Hold: 96 Hour Involuntary Admission: No Attestations NPU Medical Necessity Statement*: Inpatient hospitalization is medically necessary and the clinically appropriate intervention at this time. We will initiate medications and make changes as indicated. He will be in the hospital for over 2 midnights. 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
[2021-04-19] MEDS: buprenorphine-naloxone 4-1 mg Film 2 EACH SUBLINGUAL (14:14)
[2021-04-19] MEDS: lurasidone 20 mg Tablet 40 MG PO (17:05)
[2021-04-19] MEDS: carvedilol 6.25 mg Tablet 3.125 MG PO (17:05)
[2021-04-19] MEDS: nicotine 2 mg Gum BUCCAL (20:15)
[2021-04-19] MEDS: CLONazepam 0.5 mg Tablet PO (20:16)
[2021-04-19] MEDS: chlorPROMazine 50 mg Tablet 100 MG PO (20:16)
[2021-04-19] MEDS: trazodone 100 mg Tablet PO (20:18)
[2021-04-20 06:00] VITALS: BP 96/63; PULSE 81; RESP 20; TEMP 36.4; O2SAT 92
[2021-04-20] MEDS: carvedilol 6.25 mg Tablet 3.125 MG PO ×2 (09:57→17:56)
[2021-04-20] MEDS: spironolactone 25 mg Tablet PO (09:57)
[2021-04-20] MEDS: pantoprazole DR 40 mg Tablet PO (09:57)
[2021-04-20] MEDS: aspirin 81 mg EC Tablet PO (09:57)
[2021-04-20] MEDS: CLONazepam 0.5 mg Tablet PO ×2 (09:58→13:01)
[2021-04-20] MEDS: apixaban 5 mg Tablet PO ×2 (09:58→20:35)
[2021-04-20] MEDS: buprenorphine-naloxone 4-1 mg Film 2 EACH SUBLINGUAL (10:10)
[2021-04-20] MEDS: nicotine 2 mg Gum BUCCAL ×3 (10:50→20:44)
--- NOTE | 2021-04-20 12:46 | W.PM.NPUPNS ---
Subjective NPU Subjective: Interval history: He says that the voices are starting to come back and make him anxious. We only gave him 100 Thorazine last night which he feels helps the voices. He has been getting dizzy when he stands up. He has fallen a couple times this morning. He tells to be more careful now. He agreed to try increasing the Latuda since he did have blood pressure. he also wants to take some clonazepam during the day. He takes 0.5 mg at bedtime with the Thorazine. He probably gets very little effect from that dose and agreed to move that to 1 PM. Mental Status Exam MSE Comments: This is a 36-year-old overweight male who appears approximately his stated age and is in no acute distress. He is dressed in hospital scrubs with a full hayes. He is pleasant and cooperative with the evaluation. psychomotor activity is normal. Speech is at a regular rate and rhythm, normal volume, good articulation, not pressured. Alert, oriented X3 Attention and concentration appears to be good. Memory is intact Mood is depressed. Affect is mildly dysphoric. Thought process is logical and goal-directed. Thought content: Denies auditory and visual hallucinations. No delusions or paranoia are noted. He continues to wish that he had been successful in killing himself. He denies any plan to do anything to harm himself at this time. He denies any homicidal ideation. Fund of knowledge is average. Insight and judgment appear to be impaired. Impulse control is impaired. Cognition: Level of Consciousness: Awake and Alert Patient Cognition Impaired: No Ability to Follow Directions: Good Patient Orientation (long list): Person, Name and Age Comprehension Ability: No Impairment Hallucination Type: None Delusion Description: Not Present Thought Process: Appropriate Affect: Affect Description: Appropriate, Flat and Guarded Depressive Symptoms: Feelings of Worthlessness and Unhappiness Behavior: Patient Behavior: Appropriate and Cooperative Speech Pattern: Appropriate and Clear Vitals/I&O/Wt Last Vital Signs Temp 97.6 F 04/20/21 06:00 Pulse 81 04/20/21 06:00 Resp 20 H 04/20/21 06:00 BP 96/63 04/20/21 06:00 Pulse Ox 92 04/20/21 06:00 Data NPU : 04/19/21 04:46 01/23/22 04:46 A&P Assessment and plan (1) Pulmonary embolism: Status: Acute (2) Schizophrenia: Status: Acute Qualifiers: Schizophrenia type: unspecified Qualified Code(s): F20.9 - Schizophrenia, unspecified (3) Opiate misuse: Status: Acute (4) Suicide attempt by drug overdose: Status: Acute (5) Cluster B personality disorder: Status: Chronic Additional A&P Information This is a 36-year-old male with schizophrenia with multiple suicide attempts recently. The lethality of these attempts continues to increase. Plan: 1. We will restart medications gradually because he has recently required medications to boost his blood pressure. Thorazine 100 mg, trazodone 100 mg, Latuda 80 mg and Suboxone 8-2 once daily. 2. Continue every 15 minute checks for safety. 3. Encourage individual, group and milieu therapies. 4. Encourage sober living treatment after discharge at the highest level of care to which he is willing to commit. 5. We will monitor for safety for himself in the community prior to discharge. Involuntary Hold Information 96 Hour Hold: 96 Hour Involuntary Admission: No Attestations NPU Medical Necessity Statement*: Inpatient hospitalization is medically necessary and the clinically appropriate intervention at this time. We will initiate medications and make changes as indicated. 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
[2021-04-20 14:00] VITALS: BP 95/63; PULSE 95; RESP 18; TEMP 36.6; O2SAT 96
[2021-04-20] MEDS: hyDROXYzine 25 mg Capsule 50 MG PO (16:54)
[2021-04-20] MEDS: lurasidone 80 mg Tablet PO (16:54)
[2021-04-20 20:15] VITALS: BP 85/49; PULSE 74; RESP 18; O2SAT 95
[2021-04-20] MEDS: chlorPROMazine 50 mg Tablet 100 MG PO (20:35)
[2021-04-20] MEDS: trazodone 100 mg Tablet PO (20:35)
[2021-04-21 06:00] VITALS: BP 90/57; PULSE 88; RESP 20; TEMP 36.7; O2SAT 94
[2021-04-21] MEDS: pantoprazole DR 40 mg Tablet PO (09:01)
[2021-04-21] MEDS: spironolactone 25 mg Tablet PO (09:01)
[2021-04-21] MEDS: CLONazepam 0.5 mg Tablet PO ×2 (09:01→11:52)
[2021-04-21] MEDS: buprenorphine-naloxone 4-1 mg Film 2 EACH SUBLINGUAL (09:01)
[2021-04-21] MEDS: apixaban 5 mg Tablet PO ×2 (09:01→20:49)
[2021-04-21] MEDS: aspirin 81 mg EC Tablet PO (09:01)
[2021-04-21] MEDS: nicotine 2 mg Gum BUCCAL ×4 (09:01→20:49)
[2021-04-21] MEDS: carvedilol 6.25 mg Tablet 3.125 MG PO ×2 (09:02→19:28)
--- NOTE | 2021-04-21 12:38 | P.NPUPN_ITS ---
Subjective NPU Subjective: Interval history: He says that he is doing fairly well. He did not sleep very well last night which is not surprising. He continues to have some thoughts of wanting to be but they are much decreased. He is not having thoughts of trying to kill himself. He said the voices are still bad but not nearly as bad as they were before he took the overdose. It does not seem that the 1 dose of Latuda 80 mg has helped. His blood pressure has been better. He has not been close to falling or dizzy since yesterday morning. He again talked about how happy he was after he left the hospital and for about 6 weeks until the voices came back. He wonders if it might be better if the voices are very low level so that he does not forget that he has them. That might make it twice a back when they come back strong like they have at this time. He agreed to increasing the Thorazine up to 200 mg. We will increase to 300 mg when tolerated. Mental Status Exam MSE Comments: This is a 36-year-old overweight male who appears approximately his stated age and is in no acute distress. He is dressed in hospital scrubs with a full hayes. He is pleasant and cooperative with the evaluation. psychomotor activity is normal. Speech is at a regular rate and rhythm, normal volume, good articulation, not pressured. Alert, oriented X3 Attention and concentration appears to be good. Memory is intact Mood is depressed. Affect is mildly dysphoric. Thought process is logical and goal-directed. Thought content: Denies auditory and visual hallucinations. No delusions or paranoia are noted. He continues to wish that he had been successful in killing himself. He denies any plan to do anything to harm himself at this time. He denies any homicidal ideation. Fund of knowledge is average. Insight and judgment appear to be impaired. Impulse control is impaired. Cognition: Patient Appearance: Appropriate Level of Consciousness: Awake and Alert Patient Cognition Impaired: No Ability to Follow Directions: Good Patient Orientation (long list): Person, Name and Age Comprehension Ability: No Impairment Hallucination Type: None Delusion Description: Not Present Thought Process: Appropriate Affect: Affect Description: Appropriate and Calm Depressive Symptoms: Feelings of Worthlessness and Unhappiness Behavior: Patient Behavior: Appropriate and Cooperative Speech Pattern: Appropriate and Clear Vitals/I&O/Wt Last Vital Signs Temp 98.0 F 04/21/21 06:00 Pulse 88 04/21/21 06:00 Resp 20 H 04/21/21 06:00 BP 90/57 04/21/21 06:00 Pulse Ox 94 04/21/21 06:00 Data NPU : 04/19/21 04:46 04/19/21 04:46 A&P Assessment and plan (1) Pulmonary embolism: Status: Acute (2) Schizophrenia: Status: Acute Qualifiers: Schizophrenia type: unspecified Qualified Code(s): F20.9 - Schizophrenia, unspecified (3) Opiate misuse: Status: Acute (4) Suicide attempt by drug overdose: Status: Acute (5) Cluster B personality disorder: Status: Chronic Plan This is a 36-year-old male with schizophrenia with multiple suicide at [facility] recently.? The lethality of these attempts continues to increase. Plan: 1.? We will restart medications gradually because he has recently required medications to boost his blood pressure.? Increase Thorazine 200 mg, trazodone 100 mg, Latuda 80 mg and Suboxone 8-2 once daily. 2.? Continue every 15 minute checks for safety. 3.? Encourage individual, group and milieu therapies. 4.? Encourage sober living treatment after discharge at the highest level of care to which he is willing to commit. 5.? We will monitor for safety for himself in the community prior to discharge. Involuntary Hold Information 96 Hour Hold: 96 Hour Involuntary Admission: No Attestations NPU Medical Necessity Statement*: Inpatient hospitalization is medically necessary and the clinically appropriate intervention at this time. We will initiate medications and make changes as indicated. 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
[2021-04-21 14:00] VITALS: BP 90/57; PULSE 88; RESP 20; TEMP 36.7; O2SAT 94
[2021-04-21] MEDS: hyDROXYzine 25 mg Capsule 50 MG PO (14:44)
[2021-04-21] MEDS: lurasidone 80 mg Tablet PO (19:28)
[2021-04-21] MEDS: chlorPROMazine 50 mg Tablet 200 MG PO (20:49)
[2021-04-21] MEDS: trazodone 100 mg Tablet PO (20:49)
[2021-04-21 20:53] VITALS: BP 97/59; PULSE 73; RESP 17; TEMP 36.6; O2SAT 96
[2021-04-22 06:00] VITALS: BP 81/49; PULSE 74; RESP 18; TEMP 36.7; O2SAT 95
[2021-04-22] MEDS: carvedilol 6.25 mg Tablet 3.125 MG PO ×2 (09:15→18:06)
[2021-04-22] MEDS: spironolactone 25 mg Tablet PO (09:15)
[2021-04-22] MEDS: CLONazepam 0.5 mg Tablet PO ×2 (09:15→13:56)
[2021-04-22] MEDS: nicotine 2 mg Gum BUCCAL ×4 (09:15→20:32)
[2021-04-22] MEDS: pantoprazole DR 40 mg Tablet PO (09:15)
[2021-04-22] MEDS: apixaban 5 mg Tablet PO ×2 (09:15→20:26)
[2021-04-22] MEDS: aspirin 81 mg EC Tablet PO (09:15)
[2021-04-22] MEDS: buprenorphine-naloxone 4-1 mg Film 2 EACH SUBLINGUAL (09:15)
--- NOTE | 2021-04-22 10:00 | P.NPUPN_ITS ---
Subjective NPU Subjective: Interval history: He says that he is better. He slept well last night with the Thorazine 200 mg daily and trazodone 100 mg. He says that he has not had any difficulty with dizziness we are following for the last 2 days. He says that the voices are decreased with the Thorazine. Still like to increase to 250 or 300 mg. If she is increased to try to discontinue the trazodone if the Thorazine is increased. He would like to continue on the Latuda at 80 mg. Has feels like that helps his mood. He denies any suicidal ideation today. Mental Status Exam MSE Comments: This is a 36-year-old overweight male who appears approximately his stated age and is in no acute distress. He is dressed in hospital scrubs with a full hayes. He is pleasant and cooperative with the evaluation. psychomotor activity is normal. Speech is at a regular rate and rhythm, normal volume, good articulation, not pressured. Alert, oriented X3 Attention and concentration appears to be good. Memory is intact Mood is good. Affect is euthymic. Thought process is logical and goal-directed. Thought content: Denies auditory and visual hallucinations. No delusions or paranoia are noted. He denies any suicidal ideations or wishes for . He denies any homicidal ideation. Fund of knowledge is average. Insight and judgment appear to be improved. Impulse control is improving. Cognition: Patient Appearance: Appropriate Level of Consciousness: Awake and Alert Patient Cognition Impaired: No Ability to Follow Directions: Good Patient Orientation (long list): Person, Name and Age Comprehension Ability: No Impairment Hallucination Type: None Delusion Description: Not Present Thought Process: Loose Associations Affect: Affect Description: Appropriate and Calm Depressive Symptoms: Feelings of Worthlessness and Unhappiness Behavior: Patient Behavior: Appropriate and Cooperative Speech Pattern: Appropriate and Clear Vitals/I&O/Wt Last Vital Signs Temp 98.0 F 04/22/21 06:00 Pulse 74 04/22/21 06:00 Resp 18 04/22/21 06:00 BP 81/49 04/22/21 06:00 Pulse Ox 95 04/22/21 06:00 Data NPU : 04/19/21 04:46 04/19/21 04:46 A&P Assessment and plan (1) Pulmonary embolism: Status: Acute (2) Schizophrenia: Status: Acute Qualifiers: Schizophrenia type: unspecified Qualified Code(s): F20.9 - Schi zophrenia, unspecified (3) Opiate misuse: Status: Acute (4) Suicide attempt by drug overdose: Status: Acute (5) Cluster B personality disorder: Status: Chronic Plan This is a 36-year-old male with schizophrenia with multiple suicide attempts recently.? The lethality of these attempts continues to increase. Plan: 1.? We will restart medications gradually because he has recently required medications to boost his blood pressure.? Thorazine 200 mg, trazodone 100 mg, Latuda 80 mg and Suboxone 8-2 once daily. 2.? Continue every 15 minute checks for safety. 3.? Encourage individual, group and milieu therapies. 4.? Encourage sober living treatment after discharge at the highest level of care to which he is willing to commit. 5.? We will monitor for safety for himself in the community prior to discharge. Involuntary Hold Information 96 Hour Hold: 96 Hour Involuntary Admission: No Attestations NPU Medical Necessity Statement*: Inpatient hospitalization is medically necessary and the clinically appropriate intervention at this time. We will initiate medications and make changes as indicated. 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
[2021-04-22 13:32] VITALS: BP 80/46; PULSE 81; RESP 16; TEMP 36.6; O2SAT 94
[2021-04-22] MEDS: hyDROXYzine 25 mg Capsule 50 MG PO (16:43)
[2021-04-22] MEDS: lurasidone 80 mg Tablet PO (18:06)
[2021-04-22] MEDS: chlorPROMazine 50 mg Tablet 200 MG PO (20:26)
[2021-04-22] MEDS: trazodone 100 mg Tablet PO (20:28)
[2021-04-22 20:50] VITALS: BP 161/100; PULSE 59; RESP 17; TEMP 36.4; O2SAT 94
[2021-04-23] MEDS: hyDROXYzine 25 mg Capsule 50 MG PO ×2 (03:27→13:52)
--- NOTE | 2021-04-23 03:28 | PC.NURSE ---
PRN ADMIN Patient came to nurses desk and c/o anxiety. Requested PRN hydroxyzine. Given as ordered with noted effectiveness.
[2021-04-23 06:00] VITALS: BP 89/53; PULSE 80; RESP 16; TEMP 36.4; O2SAT 93
[2021-04-23] MEDS: CLONazepam 0.5 mg Tablet PO ×2 (08:51→12:13)
[2021-04-23] MEDS: apixaban 5 mg Tablet PO ×2 (08:51→21:15)
[2021-04-23] MEDS: nicotine 2 mg Gum BUCCAL ×6 (08:51→21:41)
[2021-04-23] MEDS: spironolactone 25 mg Tablet PO (08:51)
[2021-04-23] MEDS: pantoprazole DR 40 mg Tablet PO (08:51)
[2021-04-23] MEDS: aspirin 81 mg EC Tablet PO (08:51)
[2021-04-23] MEDS: buprenorphine-naloxone 4-1 mg Film 2 EACH SUBLINGUAL (08:51)
[2021-04-23] MEDS: carvedilol 6.25 mg Tablet 3.125 MG PO ×2 (08:51→17:22)
[2021-04-23 14:00] VITALS: BP 84/61; PULSE 107; RESP 20; O2SAT 94
--- NOTE | 2021-04-23 14:57 | P.NPUPN_ITS ---
Subjective NPU Subjective: Interval history: Patient was observed interacting with others in group and in the general milieu without issue. He denied any issues or recent changes he endorsed voi shima and not knowing what is necessary for him to avoid this recurring. Mental Status Exam MSE Comments: This is an overweight versus obese white male in hospital scrubs with limited grooming and eye contact.? No abnormal movements except mild but resolving psychomotor retardation. Cooperative with exam in no acute distress.? Speech was more normal rate and volume.? Mood described as Okay, affect slightly subdued.? Thought process organized. Thought content: Patient denied suicidal or homicidal ideation,? no delusions reported or noted, he is endorsing auditory hallucinations but not visual hallucinations reported.? Attention and concentration were intact and memory was more reliable but none were formally tested.? He is alert and oriented x3.? Insight and judgment are limited, impulse control is limited. Vitals/I&O/Wt Last Vital Signs Temp 97.6 F 04/23/21 06:00 Pulse 80 04/23/21 06:00 Resp 16 04/23/21 06:00 BP 89/53 04/23/21 06:00 Pulse Ox 93 04/23/21 06:00 Data NPU : 04/19/21 04:46 04/19/21 04:46 A&P Assessment and plan (1) Intentional drug overdose: Status: Acute (2) Schizophrenia: Status: Acute Qualifiers: Schizophrenia type: unspecified Qualified Code(s): F20.9 - Schizophrenia, unspecified (3) Opiate misuse: Status: Acute (4) Non-ischemic cardiomyopathy: Status: Acute (5) Right upper quadrant pain: Status: Acute (6) Bipolar depression: Status: Chronic (7) Cluster B personality disorder: Status: Chronic (8) Psychosis: Status: Chronic Plan Plan This is a 36-year-old male with schizophrenia with multiple suicide attempts recently.? The lethality of these attempts continues to increase. Plan: 1.?Continue current medication Thorazine 200 mg, trazodone 100 mg, Latuda 80 mg and Suboxone 8-2 once daily. 2.? Continue every 15 minute checks for safety. 3.? Encourage individual, group and milieu therapies. 4.? Encourage sober living treatment after discharge at the highest level of care to which he is willing to commit. 5.?Significant concerns about lethality exist when he is managing his own medi cation. We continue to explore residential settings that would assist in his safety outside the hospital. Involuntary Hold Information 96 Hour Hold: 96 Hour Involuntary Admission: No Attestations NPU Medical Necessity Statement*: Inpatient hospitalization is medically necessary and the clinically appropriate intervention at this time.? We will initiate medications and make changes as indicated. Likely length of stay 3-5 days. 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
[2021-04-23] MEDS: lurasidone 80 mg Tablet PO (17:22)
[2021-04-23] MEDS: trazodone 100 mg Tablet PO (21:15)
[2021-04-23] MEDS: chlorPROMazine 50 mg Tablet 200 MG PO (21:15)
[2021-04-23 21:26] VITALS: BP 89/62; PULSE 92; RESP 15; TEMP 36.6; O2SAT 98
[2021-04-24 05:25] VITALS: BP 117/67; PULSE 78; RESP 17; TEMP 36.8; O2SAT 97
--- NOTE | 2021-04-24 06:14 | PC.NURSE ---
Patient c/o trouble getting to sleep, requested PRN trazodone, given as ordered with noted effectiveness.
--- NOTE | 2021-04-24 07:59 | P.NPUPN_ITS ---
Subjective NPU Subjective: Interval history: Patient presents today reporting that the voices continued to diminish. He reports that they still exist but are in the back of his mind. He denied t houghts to kill himself today. He could give no additional insight into this recent pattern of suicide attempts that have increasing intensity seem to have limited warning. He did not endorse any way that he could really ensure or assert how discharging him now will be different from recent discharges. We discussed strategies we discussed before including him getting therapist, having a certified legal investigator and limiting the pills at home. Medications: Medication Review Details: This is an overweight versus obese white male in hospital scrubs with limited grooming and eye contact.? No abnormal movements except mild but resolving psychomotor retardation. Cooperative with exam in no acute distress.? Speech was more normal rate and volume.? Mood described as pretty good, affect slightly subdued.? Thought process organized. Thought content: Patient denied suicidal or homicidal ideation,? no delusions reported or noted, he is endorsing auditory hallucinations but not visual hallucinations reported.? Attention and concent ration were intact and memory was more reliable but none were formally tested.? He is alert and oriented x3.? Insight and judgment are limited, impulse control is limited. Vitals/I&O/Wt Last Vital Signs Temp 98.2 F 04/24/21 05:25 Pulse 78 04/24/21 05:25 Resp 17 04/24/21 05:25 BP 117/67 04/24/21 05:25 Pulse Ox 97 04/24/21 05:25 Data NPU : 04/19/21 04:46 04/19/21 04:46 A&P Assessment and plan (1) Schizophrenia: Status: Acute Qualifiers: Schizophrenia type: unspecified Qualified Code(s): F20.9 - Schizophrenia, unspecified (2) Acute bronchitis: Status: Acute Qualifiers: Bronchitis organism: unspecified organism Qualified Code(s): J20.9 - Acute bronchitis, unspecified (3) Drug overdose: Status: Acute (4) Intentional drug overdose: Status: Acute (5) Non-ischemic cardiomyopathy: Status: Acute (6) Right upper quadrant pain: Status: Acute (7) Cluster B personality disorder: Status: Chronic (8) Bipolar depression: Status: Chronic (9) Psychosis: Status: Chronic Plan This is a 36-year-old male with schizophrenia with multiple suicide attempts recently.? The lethality of these attempts continues to increase. Plan: 1.?Continue current medication Thorazine 200 mg, trazodone 100 mg, Latuda 80 mg and Suboxone 8-2 once daily. 2.? Continue every 15 minute checks for safety. 3.? Encourage individual, group and milieu therapies. 4.? Encourage sober living treatment after discharge at the highest level of care to which he is willing to commit. 5.?Significant concerns about lethality exist when he is managing his own medication. We continue to explore residential settings that would assist in his safety outside the hospital. 6. We will file for guardianship given the great concern over safety at discharge. Involuntary Hold Information 96 Hour Hold: 96 Hour Involuntary Admission: No Attestations NPU Medical Necessity Statement*: Inpatient hospitalization is medically necessary and the clinically appropriate intervention at this time.? We will initiate medications and make changes as indicated. Likely length of stay 3-5 days, level 5 for guardianship which will extend this stay. 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
--- NOTE | 2021-04-24 08:41 | PHA.FALL ---
A Pharmacy Consult Was Conducted For Shayan Dickson Due To: Vee Fall Scale Risk Level: High Fall Risk On 04/24/21 08:00 And A Medication Fall Risk Score Greater Than 10. The Recommendations Are As Follows: the medications listed below have sedation/somnolence/dizziness adverse reactions. Concomitant administration of these medications may lead to an increased/compounded risk of falls and it is recommended to avoid administration together if possible. Many of the offending medications are listed as PRN therefore extra caution must be taken when the need arises for a particular agent. - Benztropine: confusion - Chlorpromazine: Dizziness, somnolence - Clonazepam: coordination problems, dizziness, somnolence - Diphenhydramine: dizziness, sedation - Haloperidol: somnolence - Hydroxyzine: somnolence - Loperamide: somnolence, dizziness - Lurasidone: Somnolence? - Olanzapine: dizziness, somnolence - Trazodone: somnolence
[2021-04-24] MEDS: carvedilol 6.25 mg Tablet 3.125 MG PO ×2 (09:05→16:31)
[2021-04-24] MEDS: spironolactone 25 mg Tablet PO (09:05)
[2021-04-24] MEDS: apixaban 5 mg Tablet PO ×2 (09:06→20:30)
[2021-04-24] MEDS: pantoprazole DR 40 mg Tablet PO (09:06)
[2021-04-24] MEDS: aspirin 81 mg EC Tablet PO (09:06)
[2021-04-24] MEDS: CLONazepam 0.5 mg Tablet PO ×2 (09:07→12:01)
[2021-04-24] MEDS: buprenorphine-naloxone 4-1 mg Film 2 EACH SUBLINGUAL (09:40)
[2021-04-24] MEDS: nicotine 2 mg Gum BUCCAL ×5 (10:33→20:55)
--- NOTE | 2021-04-24 13:03 | PC.NURSE ---
PRN Patient has utilized PRN Nicotine gum throughout day.
[2021-04-24 13:41] VITALS: BP 107/73; PULSE 76; RESP 17; TEMP 36.8; O2SAT 96
[2021-04-24] MEDS: hyDROXYzine 25 mg Capsule 50 MG PO (14:56)
[2021-04-24] MEDS: lurasidone 80 mg Tablet PO (16:31)
[2021-04-24] MEDS: chlorPROMazine 50 mg Tablet 200 MG PO (20:30)
[2021-04-24] MEDS: trazodone 100 mg Tablet PO (20:32)
[2021-04-24 20:55] VITALS: BP 95/66; PULSE 83; RESP 16; TEMP 36.5; O2SAT 99
[2021-04-24 21:59] LABS: Glucose Point of Care 426 mg/dL (70-110)
[2021-04-25 06:00] VITALS: BP 78/45; PULSE 75; RESP 16; TEMP 36.6; O2SAT 93
[2021-04-25] MEDS: nicotine 2 mg Gum BUCCAL ×7 (08:03→21:23)
[2021-04-25] MEDS: buprenorphine-naloxone 4-1 mg Film 2 EACH SUBLINGUAL (09:39)
[2021-04-25] MEDS: carvedilol 6.25 mg Tablet 3.125 MG PO ×2 (09:39→17:29)
[2021-04-25] MEDS: CLONazepam 0.5 mg Tablet PO ×2 (09:39→12:08)
[2021-04-25] MEDS: aspirin 81 mg EC Tablet PO (09:40)
[2021-04-25] MEDS: apixaban 5 mg Tablet PO ×2 (09:40→21:00)
[2021-04-25] MEDS: pantoprazole DR 40 mg Tablet PO (09:40)
[2021-04-25] MEDS: spironolactone 25 mg Tablet PO (09:40)
--- NOTE | 2021-04-25 12:36 | P.NPUPN_ITS ---
Subjective NPU Subjective: Interval history: Patient presents today in an almost d?j? vu of previous admissions. He very light heartedly promoted the idea of possible discharge. He gave some phy sicians as to why he thinks he would probably be safe and projected my idea of him only having access to weekly medication. We discussed needing to put things in place for him to be safe for discharge. He endorsed he understood and agreed to proceed as is documented in this note. Mental Status Exam MSE Comments: This is an overweight versus obese white male in hospital scrubs with limited grooming and eye contact.? No abnormal movements except mild but resolving psychomotor retardation. Cooperative with exam in no acute distress.? Speech was more normal rate and volume.? Mood described as pretty good, affect slightly subdued.? Thought process organized. Thought content: Patient denied suicidal or homicidal ideation,? no delusions reported or noted, he is endorsing auditory hallucinations but not visual hallucinations reported.? Attention and concentration were intact and memory was more reliable but none were formally tested.? He is alert and oriented x3.? Insight and judgment are limited, impulse control is limited. Vitals/I&O/Wt Last Vital Signs Temp 97.9 F 04/25/21 06:00 Pulse 75 04/25/21 06:00 Resp 16 04/25/21 06:00 BP 78/45 04/25/21 06:00 Pulse Ox 93 04/25/21 06:00 Data NPU : 04/19/21 04:46 04/19/21 04:46 A&P Assessment and plan (1) Intentional drug overdose: Status: Acute (2) Schizophrenia: Status: Acute Qualifiers: Schizophrenia type: unspecified Qualified Code(s): F20.9 - Schizophrenia, unspecified (3) Opiate misuse: Status: Acute (4) Non-ischemic cardiomyopathy: Status: Acute (5) Right upper quadrant pain: Status: Acute (6) Suicide attempt by drug overdose: Status: Acute (7) Cluster B personality disorder: Status: Chronic Plan This is a 36-year-old male with schizophrenia with multiple suicide attempts recently.? The lethality of these attempts continues to increase. Plan: 1.?Continue current medication Thorazine 200 mg, trazodone 100 mg, Latuda 80 mg and Suboxone 8-2 once daily. 2.? Continue every 15 minute checks for safety. 3.? Encourage individual, group and milieu therapies. 4.? Encourage sober living treatment after discharge at the highest level of care to which he is willing to commit. 5.?Significant concerns about lethality exist when he is managing his own medication. We continue to explore residential settings that would assist in his safety outside the hospital. 6.? We will file for guardianship given the great concern over safety at discharge. Involuntary Hold Information 96 Hour Hold: 96 Hour Involuntary Admission: No Attestations NPU Medical Necessity Statement*: Inpatient hospitalization is medically necessary and the clinically appropriate intervention at this time.? We will initiate medications and make changes as indicated. Likely length of stay 3-5 days, we will file for guardianship which will extend this stay. 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
[2021-04-25 14:00] VITALS: BP 90/52; PULSE 66; RESP 16; TEMP 36.7; O2SAT 98
[2021-04-25] MEDS: hyDROXYzine 25 mg Capsule 50 MG PO (14:58)
[2021-04-25] MEDS: lurasidone 80 mg Tablet PO (17:28)
[2021-04-25] MEDS: chlorPROMazine 50 mg Tablet 200 MG PO (21:00)
[2021-04-25] MEDS: trazodone 100 mg Tablet PO (21:09)
[2021-04-25 21:16] VITALS: BP 100/64; PULSE 60; RESP 16; TEMP 36.6; O2SAT 98
[2021-04-26 05:55] VITALS: BP 88/52; PULSE 75; RESP 16; O2SAT 92
[2021-04-26 06:00] VITALS: BMI 29.7
[2021-04-26] MEDS: CLONazepam 0.5 mg Tablet PO ×2 (09:02→12:44)
[2021-04-26] MEDS: carvedilol 6.25 mg Tablet 3.125 MG PO ×2 (09:02→17:54)
[2021-04-26] MEDS: pantoprazole DR 40 mg Tablet PO (09:03)
[2021-04-26] MEDS: aspirin 81 mg EC Tablet PO (09:03)
[2021-04-26] MEDS: buprenorphine-naloxone 4-1 mg Film 2 EACH SUBLINGUAL (09:03)
[2021-04-26] MEDS: spironolactone 25 mg Tablet PO (09:03)
[2021-04-26] MEDS: apixaban 5 mg Tablet PO ×2 (09:03→21:09)
[2021-04-26] MEDS: nicotine 2 mg Gum BUCCAL ×7 (09:06→21:09)
[2021-04-26 14:00] VITALS: BP 88/52; PULSE 75; RESP 16; TEMP 36.6; O2SAT 92
[2021-04-26] MEDS: hyDROXYzine 25 mg Capsule 50 MG PO ×2 (14:45→21:09)
--- NOTE | 2021-04-26 15:57 | P.NPUPN_ITS ---
Subjective NPU Subjective: Interval history: Patient presents today much like he has the last day or so reporting that he is ready to go home and that we discussed the protections in place for him to have only 1 week of medication and everything will be fine. We discussed that we would have the treatment he meeting in the morning and decide whether that is reasonable and connecting with [facility] in case management whether he needs something more stringent. Mental Status Exam MSE Comments: This is an overweight versus obese white male in hospital scrubs with limited grooming and eye contact.? No abnormal movements except mild but resolving psychomotor retardation. Cooperative with exam in no acute distress.? Speech was more normal rate and volume.? Mood described as good, affect slightly subdued.? Thought process organized. Thought content: Patient denied suicidal or homicidal ideation,? no delusions reported or noted, he is endorsing auditory hallucinations but not visual hallucinations reported.? Attention and concentration were intact and memory was more reliable but none were formally tested.? He is alert and oriented x3.? Insight and judgment are limited, impulse control is limited. Vitals/I&O/Wt Last Vital Signs Temp 97.8 F 04/26/21 14:00 Pulse 75 04/26/21 14:00 Resp 16 04/26/21 14:00 BP 88/52 04/26/21 14:00 Pulse Ox 92 04/26/21 14:00 Weight last 48 hrs Weight 96.706 kg Data NPU : 04/19/21 04:46 04/19/21 04:46 A&P Assessment and plan (1) Intentional drug overdose: Status: Acute (2) Schizophrenia: Status: Acute Qualifiers: Schizophrenia type: unspecified Qualified Code(s): F20.9 - Schizophrenia, unspecified (3) Opiate misuse: Status: Acute (4) Non-ischemic cardiomyopathy: Status: Acute (5) Cluster B personality disorder: Status: Chronic Plan This is a 36-year-old male with schizophrenia with multiple suicide attempts recently.? The lethality of these attempts continues to increase. Plan: 1.?Continue current medication Thorazine 200 mg, trazodone 100 mg, Latuda 80 mg and Suboxone 8-2 once daily. 2.? Continue every 15 minute checks for safety. 3.? Encourage individual, group and milieu therapies. 4.? Encourage sober living treatment after discharge at the highest level of care to which he is willing to commit. 5.?Significant concerns about lethality exist when he is managing his own medication. We continue to explore residential settings that would assist in his safety outside the hospital. 6.? We will file for guardianship in the morning given the great concern over safety at discharge. However we still may have to face the fact that no one will want to take him so we will also look at other safety options we can put in place. Involuntary Hold Information 96 Hour Hold: 96 Hour Involuntary Admission: No Attestations NPU Medical Necessity Statement*: Inpatient hospitalization is medically necessary and the clinically appropriate intervention at this time.? We will initiate medications and make changes as indicated. Likely length of stay 3-5 days, we will file for guardianship which will extend this stay. 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
[2021-04-26] MEDS: lurasidone 80 mg Tablet PO (17:54)
[2021-04-26] MEDS: haloperidol 5 mg Tablet PO (17:54)
[2021-04-26] MEDS: chlorPROMazine 50 mg Tablet 200 MG PO (21:09)
[2021-04-26] MEDS: trazodone 100 mg Tablet PO (21:09)
--- NOTE | 2021-04-26 21:10 | PC.NURSE ---
pt requested Vistaril for anxiety. stated events of the day has got me feeling anxious. Vistaril 50mg po given.
[2021-04-26 21:20] VITALS: BP 116/76; PULSE 81; RESP 16; TEMP 36.7; O2SAT 98
[2021-04-27 05:51] VITALS: BP 93/65; PULSE 70; RESP 18; TEMP 36.4; O2SAT 94
[2021-04-27] MEDS: buprenorphine-naloxone 4-1 mg Film 2 EACH SUBLINGUAL (09:07)
[2021-04-27] MEDS: carvedilol 6.25 mg Tablet 3.125 MG PO ×2 (09:07→18:57)
[2021-04-27] MEDS: pantoprazole DR 40 mg Tablet PO (09:08)
[2021-04-27] MEDS: nicotine 2 mg Gum BUCCAL ×5 (09:08→20:42)
[2021-04-27] MEDS: apixaban 5 mg Tablet PO ×2 (09:08→20:41)
[2021-04-27] MEDS: spironolactone 25 mg Tablet PO (09:08)
[2021-04-27] MEDS: CLONazepam 0.5 mg Tablet PO ×2 (09:08→12:08)
[2021-04-27] MEDS: aspirin 81 mg EC Tablet PO (09:08)
--- NOTE | 2021-04-27 12:02 | NPU.GN ---
[facility] Topic:[place] [place] Group Activity General Mood of Group: Shayan did attend and participate in group. He was pleasant towards others and social in group. He seemed stable at this time. His hygiene is ok.
--- NOTE | 2021-04-27 13:27 | PC.NURSE ---
PRN Patient has utilized PRN Nicotine gum for cravings throughout shift.
[2021-04-27 13:58] VITALS: BP 107/71; PULSE 75; RESP 17; TEMP 36.5; O2SAT 95
[2021-04-27] MEDS: hyDROXYzine 25 mg Capsule 50 MG PO (14:19)
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
[2021-04-27] MEDS: lurasidone 80 mg Tablet PO (16:34)
--- NOTE | 2021-04-27 17:54 | P.NPUPN_ITS ---
Subjective NPU Subjective: Interval history: Patient presents today reporting that he is doing fine and at one point begun a discussion about leaving AMA. We submitted the paperwork for guardianship and advised him that we would try to get things in place as we explore guardianship and what other resources we can put in place given that placement was going to be very difficult but discussed our concerns about the incidents plan to discharge given the clear pathology that has marked the last 4 months. He continues to report that he thinks is going to be fine this time. Mental Status Exam MSE Comments: This is an overweight versus obese white male in hospital scrubs with limited grooming and eye contact.? No abnormal movements except mild but resolving psychomotor retardation. Cooperative with exam in no acute distress.? Speech was more normal rate and volume.? Mood described as good, affect slightly subdued.? Thought process organized. Thought content: Patient denied suicidal or homicidal ideation,? no delusions reported or noted, he is endorsing auditory hallucinations but not visual hallucinations reported.? Attention and concentration were intact and memory was more reliable but none were formally tested.? He is alert and oriented x3.? Insight and judgment are limited, impulse control is limited. Vitals/I&O/Wt Last Vital Signs Temp 97.7 F 04/27/21 13:58 Pulse 80 04/27/21 21:57 Resp 16 04/27/21 21:57 BP 94/59 04/27/21 21:57 Pulse Ox 92 04/27/21 21:57 Weight last 48 hrs Weight 96.706 kg Data NPU : 04/19/21 04:46 04/19/21 04:46 A&P Assessment and plan (1) Intentional drug overdose: Status: Acute (2) Schizophrenia: Status: Acute Qualifiers: Schizophrenia type: unspecified Qualified Code(s): F20.9 - Schizophrenia, unspecified (3) Opiate misuse: Status: Acute (4) Abnormal ECG: Status: Acute (5) Psychosis: Status: Chronic (6) Cluster B personality disorder: Status: Chronic Plan This is a 36-year-old male with schizophrenia with multiple suicide attempts recently.? The lethality of these attempts continues to increase. Plan: 1.?Continue current medication trazodone 100 mg, Latuda 80 mg and Suboxone 8-2 once daily, except increase Thorazine to 250 mg 2.? Continue every 15 minute checks for safety. 3.? Encourage individual, group and milieu therapies. 4.? Encourage sober living treatment after discharge at the highest level of care to which he is willing to commit. 5.?Significant concerns about lethality exist when he is managing his own medication. We continue to explore residential settings that would assist in his safety outside the hospital. 6.? Filed for guardianship given the great concern over safety at discharge.? However we still may have to face the fact that no one will want to take him so we will also look at other safety options we can put in place. Involuntary Hold Information 96 Hour Hold: 96 Hour Involuntary Admission: No Attestations NPU Medical Necessity Statement*: Inpatient hospitalization is medically necessary and the clinically appropriate intervention at this time.? We will initiate medications and make changes as indicated. Likely length of stay will mostly hands on guardianship hearing but we are working on getting resources in place in the event we cannot find a suitable placement. Coding Level of Care Code Acute Strip Catcher for Jordan Ellisd Diagnoses Intentional drug overdose T50.902A Schizophrenia F20.9 Schizophrenia type: unspecified Opiate misuse F11.90 Abnormal ECG R94.31 Psychosis F29 Cluster B personality disorder F60.89
[2021-04-27] MEDS: chlorPROMazine 50 mg Tablet 250 MG PO (20:41)
[2021-04-27] MEDS: trazodone 100 mg Tablet PO (20:41)
[2021-04-27 21:57] VITALS: BP 94/59; PULSE 80; RESP 16; O2SAT 92
[2021-04-28 05:55] VITALS: BP 83/50; PULSE 67; RESP 17; TEMP 36.3; O2SAT 92
[2021-04-28] MEDS: aspirin 81 mg EC Tablet PO (08:58)
[2021-04-28] MEDS: pantoprazole DR 40 mg Tablet PO (08:58)
[2021-04-28] MEDS: buprenorphine-naloxone 4-1 mg Film 2 EACH SUBLINGUAL (08:59)
[2021-04-28] MEDS: spironolactone 25 mg Tablet PO (08:59)
[2021-04-28] MEDS: CLONazepam 0.5 mg Tablet PO ×2 (08:59→12:36)
[2021-04-28] MEDS: nicotine 2 mg Gum BUCCAL ×8 (08:59→21:14)
[2021-04-28] MEDS: carvedilol 6.25 mg Tablet 3.125 MG PO ×2 (08:59→17:17)
[2021-04-28] MEDS: apixaban 5 mg Tablet PO ×2 (08:59→21:14)
--- NOTE | 2021-04-28 12:56 | NPU.GN ---
[facility] Topic: Triggers, Coping Skills, Crisis Intervention Plan General Mood of Group: Shayan did not attend group this morning and wanted to sleep.
[2021-04-28] MEDS: hyDROXYzine 25 mg Capsule 50 MG PO ×2 (13:07→19:33)
[2021-04-28 13:26] VITALS: BP 108/72; PULSE 87; RESP 17; TEMP 36.3; O2SAT 98
[2021-04-28] MEDS: lurasidone 80 mg Tablet PO (17:18)
--- NOTE | 2021-04-28 19:33 | P.NPUPN_ITS ---
Subjective NPU Subjective: Interval history: Patient presents today a little frustrated but understanding of the consideration for guardianship. We discussed the process and implications. He denies any changes reporting that he feels he would be able to return to his uncle's house and not have his pattern of suicide attempt continue but understood the concerns that it would be unrealistic to conclude this hospitalization in the same way as the last several and expect a different outcome. Mental Status Exam MSE Comments: This is an overweight versus obese white male in hospital scrubs with limited grooming and eye contact.? No abnormal movements except mild but resolving psychomotor retardation. Cooperative with exam in no acute distress.? Speech was more normal rate and volume.? Mood described as frustrated, affect slightly subdued.? Thought process organized. Thought content: Patient denied suicidal or homicidal ideation,? no delusions reported or noted, he is endorsing auditory hallucinations but not visual hallucinations reported.? Attention and concentration were intact and memory was more reliable but none were formally tested.? He is alert and oriented x3.? Insight and judgment are limited, impulse control is limited. Vitals/I&O/Wt Last Vital Signs Temp 97.3 F L 04/28/21 21:12 Pulse 91 04/28/21 21:12 Resp 16 04/28/21 21:12 BP 109/71 04/28/21 21:12 Pulse Ox 94 04/28/21 21:12 04/28/21 04/28/21 14:59 22:59 Intake Total 360 / 360 Output Total 950 / 950 Balance -590 / -590 Data NPU : 04/19/21 04:46 04/19/21 04:46 A&P Assessment and plan (1) Intentional drug overdose: Status: Acute (2) Schizophrenia: Status: Acute Qualifiers: Schizophrenia type: unspecified Qualified Code(s): F20.9 - Schizophrenia, unspecified (3) Opiate misuse: Status: Acute (4) Psychosis: Status: Chronic (5) Cluster B personality disorder: Status: Chronic Plan This is a 36-year-old male with schizophrenia with multiple suicide attempts recently.? The lethality of these attempts continues to increase. Plan: 1.?Continue current medication trazodone 100 mg, Latuda 80 mg and Suboxone 8-2 once daily, except increase Thorazine to 250 mg 2.? Continue every 15 minute checks for safety. 3.? Encourage individual, group and milieu therapies. 4.? Encourage sober living treatment after discharge at the highest level of care to which he is willing to commit. 5.?Significant concerns about lethality exist when he is managing his own medication. We continue to explore residential settings that would assist in his safety outside the hospital. 6.? Filed for guardianship given the great concern over safety at discharge.? However we still may have to face the fact that no one will want to take him so we will also look at other safety options we can put in place. Involuntary Hold Information 96 Hour Hold: 96 Hour Involuntary Admission: No Attestations NPU Medical Necessity Statement*: Inpatient hospitalization is medically necessary and the clinically appropriate intervention at this time.? We will initiate m edications and make changes as indicated. Likely length of stay will mostly hands on guardianship hearing but we are working on getting resources in place in the event we cannot find a suitable placement. Coding Level of Care Code Acute Supervisor Type Disk Quality Control for Jordan Craft Diagnoses Intentional drug overdose T50.902A Schizophrenia F20.9 Schizophrenia type: unspecified Opiate misuse F11.90 Psychosis F29 Cluster B personality disorder F60.89
[2021-04-28 21:12] VITALS: BP 109/71; PULSE 91; RESP 16; TEMP 36.3; O2SAT 94
[2021-04-28] MEDS: zolpidem 5 mg Tablet 10 MG PO (21:14)
[2021-04-28] MEDS: chlorPROMazine 50 mg Tablet 250 MG PO (21:14)
[2021-04-28] MEDS: trazodone 100 mg Tablet PO (23:50)
[2021-04-29 06:00] VITALS: BP 99/56; PULSE 92; RESP 16; TEMP 36.6; O2SAT 98
[2021-04-29] MEDS: buprenorphine-naloxone 4-1 mg Film 2 EACH SUBLINGUAL (09:45)
[2021-04-29] MEDS: nicotine 2 mg Gum BUCCAL ×7 (09:45→21:10)
[2021-04-29] MEDS: CLONazepam 0.5 mg Tablet PO ×2 (09:45→12:08)
[2021-04-29] MEDS: spironolactone 25 mg Tablet PO (09:45)
[2021-04-29] MEDS: apixaban 5 mg Tablet PO ×2 (09:45→21:10)
[2021-04-29] MEDS: carvedilol 6.25 mg Tablet 3.125 MG PO ×2 (09:45→16:41)
[2021-04-29] MEDS: pantoprazole DR 40 mg Tablet PO (09:45)
[2021-04-29] MEDS: aspirin 81 mg EC Tablet PO (09:46)
--- NOTE | 2021-04-29 12:30 | PC.NURSE ---
Spoke to patient, he states that his uncle's girlfriend will be able to control medications after discharge. He states she also was a nurse & has moved into the house with them.
[2021-04-29 14:00] VITALS: BP 106/72; PULSE 78; RESP 20; TEMP 36.6; O2SAT 98
[2021-04-29] MEDS: hyDROXYzine 25 mg Capsule 50 MG PO ×2 (15:40→21:58)
--- NOTE | 2021-04-29 16:22 | W.PM.NPUPNS ---
Subjective NPU Subjective: Interval history: Patient presents today reporting that his uncle's girlfriend who is likely moving in is a retired nurse. That he and his uncle have been discussing the possibility that she could serve in the role that has been absent in his discharges. We discussed his insomnia and agreed to give Ambien tonight after a discussion of the risk-benefit and alternatives but we agreed to attempt to get his home Lunesta as it is preferred and he reports that it works best for him and he understood agreed to proceed as is documented in this note. Mental Status Exam MSE Comments: This is an overweight versus obese white male in hospital scrubs with limited grooming and eye contact.? No abnormal movements except mild but resolving psychomotor retardation. Cooperative with exam in no acute distress.? Speech was more normal rate and volume.? Mood described as a little better, affect slightly subdued.? Thought process organized. Thought content: Patient denied suicidal or homicidal ideation,? no delusions reported or noted, he is e denying auditory or visual hallucinations reported.? Attention and concentration were intact and memory was more reliable but none were formally tested.? He is alert and oriented x3.? Insight and judgment are limited, impulse control is limited. Vitals/I&O/Wt Last Vital Signs Temp 98 F 04/29/21 14:00 Pulse 78 04/29/21 14:00 Resp 20 H 04/29/21 14:00 BP 106/72 04/29/21 14:00 Pulse Ox 98 04/29/21 14:00 Data NPU : 04/19/21 04:46 04/19/21 04:46 A&P Assessment and plan (1) Schizophrenia: Status: Acute Qualifiers: Schizophrenia type: unspecified Qualified Code(s): F20.9 - Schizophrenia, unspecified (2) Opiate misuse: Status: Acute (3) Suicide attempt by drug overdose: Status: Acute (4) Abnormal ECG: Status: Acute (5) Psychosis: Status: Chronic (6) Cluster B personality disorder: Status: Chronic Plan This is a 36-year-old male with schizophrenia with multiple suicide attempts recently.? The lethality of these attempts continues to increase. Plan: 1.?Continue current medication trazodone 100 mg, Latuda 80 mg and Suboxone 8-2 once daily, except increase Thorazine to 250 mg. We will give Ambien 10 mg p.o. nightly tonight and work to get his Lunesta prescription here since we do not have it in the pharmacy. 2.? Continue every 15 minute checks for safety. 3.? Encourage individual, group and milieu therapies. 4.? Encourage sober living treatment after discharge at the highest level of care to which he is willing to commit. 5.?Significant concerns about lethality exist when he is managing his own medication. We continue to explore residential settings that would assist in his safety outside the hospital. 6.? Filed for guardianship given the great concern over safety at discharge.? However we still may have to face the fact that no one will want to take him so we will also look at other safety options we can put in place. Involuntary Hold Information 96 Hour Hold: 96 Hour Involuntary Admission: No Attestations NPU Medical Necessity Statement*: Inpatient hospitalization is medically necessary and the clinically appropriate intervention at this time.? We will initiate medications and make changes as indicated. Likely length of stay will mostly hands on guardianship hearing but we are working on getting resources in place in the event we cannot find a suitable placement. Coding Level of Care Code Acute Shift Foreman for g Fwd Diagnoses Schizophrenia F20.9 Schizophrenia type: unspecified Opiate misuse F11.90 Suicide attempt by drug overdose T50.902A Abnormal ECG R94.31 Psychosis F29 Cluster B personality disorder F60.89
[2021-04-29] MEDS: haloperidol 5 mg Tablet PO (16:41)
[2021-04-29] MEDS: lurasidone 80 mg Tablet PO (16:41)
--- NOTE | 2021-04-29 16:51 | PC.NURSE ---
Patient came to RN desk stating he was having anxiety & having auditory hallucinations. Patient given Haldol 5mg.
[2021-04-29] MEDS: zolpidem 5 mg Tablet 10 MG PO (21:00)
[2021-04-29] MEDS: chlorPROMazine 50 mg Tablet 250 MG PO (21:11)
[2021-04-29] MEDS: trazodone 100 mg Tablet PO (21:14)
[2021-04-29 22:00] VITALS: BP 95/61; PULSE 81; RESP 16; TEMP 36.5; O2SAT 95
--- NOTE | 2021-04-30 02:18 | PC.NURSE ---
2113 Trazadone 100 mg given per physician order with his ambien 10mg. 2157 Vistaril 50mg po given for anxiety. Meds were effective. Patient is resting quietly.
[2021-04-30 06:00] VITALS: BP 99/58; PULSE 86; RESP 20; TEMP 36.4; O2SAT 93
[2021-04-30] MEDS: CLONazepam 0.5 mg Tablet PO ×2 (09:07→12:15)
[2021-04-30] MEDS: apixaban 5 mg Tablet PO ×2 (09:07→19:57)
[2021-04-30] MEDS: aspirin 81 mg EC Tablet PO (09:07)
[2021-04-30] MEDS: spironolactone 25 mg Tablet PO (09:07)
[2021-04-30] MEDS: pantoprazole DR 40 mg Tablet PO (09:07)
[2021-04-30] MEDS: buprenorphine-naloxone 4-1 mg Film 2 EACH SUBLINGUAL (09:08)
[2021-04-30] MEDS: carvedilol 6.25 mg Tablet 3.125 MG PO ×2 (09:08→17:51)
[2021-04-30] MEDS: nicotine 2 mg Gum BUCCAL ×6 (09:08→20:02)
--- NOTE | 2021-04-30 13:28 | P.NPUPN_ITS ---
Subjective NPU Subjective: Interval history: Patient presents today reporting that he is multiple with the idea of what is going on with her guardianship. His greatest concern is stress surrounding whether or not this will mean some a major change in living arrangements. We discussed the fact that that is all unknown but that we are the place where we cannot logically proceed forward with the same plan is all the last admissions of ended with him going home and attempting suicide in a fairly intense way without any warning based on his discharge. Mental Status Exam MSE Comments: This is an overweight versus obese white male in hospital scrubs with limited grooming and eye contact.? No abnormal movements except mild but resolving psychomotor retardation. Cooperative with exam in no acute distress.? Speech was more normal rate and volume.? Mood described as pretty good, affect slightly subdued.? Thought process organized. Thought content: Patient denied suicidal or homicidal ideation,? no delusions reported or noted, he is e denying auditory or visual hallucinations reported.? Attention and concentration were intact and memory was more reliable but none were formally tested.? He is alert and oriented x3.? Insight and judgment are limited, impulse control is limited. Vitals/I&O/Wt Last Vital Signs Temp 97.7 F 04/29/21 22:00 Pulse 81 04/29/21 22:00 Resp 16 04/29/21 22:00 BP 95/61 04/29/21 22:00 Pulse Ox 95 04/29/21 22:00 04/29/21 04/29/21 04/30/21 14:59 22:59 06:59 Intake Total 360 / 360 Output Total 950 / 950 Balance -590 / -590 Data NPU : 04/19/21 04:46 04/19/21 04:46 A&P Assessment and plan (1) Schizophrenia: Status: Acute Qualifiers: Schizophrenia type: unspecified Qualified Code(s): F20.9 - S chizophrenia, unspecified (2) Opiate misuse: Status: Acute (3) Suicide attempt by drug overdose: Status: Acute (4) Abnormal ECG: Status: Acute (5) Psychosis: Status: Chronic (6) Cluster B personality disorder: Status: Chronic Plan This is a 36-year-old male with schizophrenia with multiple suicide attempts recently.? The lethality of these attempts continues to increase. Plan: 1.?Continue current medication trazodone 100 mg, Latuda 80 mg and Suboxone 8-2 once daily, except increase Thorazine to 250 mg.? We will give Ambien 10 mg p.o. nightly tonight and work to get his Lunesta prescription here since we do not have it in the pharmacy. 2.? Continue every 15 minute checks for safety. 3.? Encourage individual, group and milieu therapies. 4.? Encourage sober living treatment after discharge at the highest level of care to which he is willing to commit. 5.?Significant concerns about lethality exist when he is managing his own m edication. We continue to explore residential settings that would assist in his safety outside the hospital. 6.? Filed for guardianship given the great concern over safety at discharge.? However we still may have to face the fact that no one will want to take him so we will also look at other safety options we can put in place. Involuntary Hold Information 96 Hour Hold: 96 Hour Involuntary Admission: No Attestations NPU Medical Necessity Statement*: Inpatient hospitalization is medically necessary and the clinically appropriate intervention at this time.? We will initiate medications and make changes as indicated. Likely length of stay will mostly hands on guardianship hearing but we are working on getting resources in place in the event we cannot find a suitable placement. Coding Level of Care Code Acute City Council Member for [place]rend[employer] Fwd Diagnoses Schizophrenia F20.9 Schizophrenia type: unspecified Opiate misuse F11.90 Suicide attempt by drug overdose T50.902A Abnormal ECG R94.31 Psychosis F29 Cluster B personality disorder F60.89
[2021-04-30 14:00] VITALS: BP 117/77; PULSE 78; RESP 17; TEMP 36.6; O2SAT 94
[2021-04-30] MEDS: hyDROXYzine 25 mg Capsule 50 MG PO ×2 (15:14→21:17)
[2021-04-30] MEDS: lurasidone 80 mg Tablet PO (16:24)
[2021-04-30] MEDS: chlorPROMazine 50 mg Tablet 250 MG PO (19:57)
[2021-04-30] MEDS: trazodone 100 mg Tablet PO (19:58)
[2021-04-30] MEDS: zolpidem 5 mg Tablet 10 MG PO (19:59)
[2021-04-30 20:45] VITALS: BP 91/54; PULSE 79; RESP 17; TEMP 36.7; O2SAT 93
[2021-05-01 06:00] VITALS: BP 97/60; PULSE 84; RESP 16; O2SAT 93
[2021-05-01] MEDS: pantoprazole DR 40 mg Tablet PO (10:11)
[2021-05-01] MEDS: apixaban 5 mg Tablet PO ×2 (10:11→20:07)
[2021-05-01] MEDS: nicotine 2 mg Gum BUCCAL ×5 (10:12→20:09)
[2021-05-01] MEDS: aspirin 81 mg EC Tablet PO (10:12)
[2021-05-01] MEDS: spironolactone 25 mg Tablet PO (10:12)
[2021-05-01] MEDS: carvedilol 6.25 mg Tablet 3.125 MG PO ×2 (10:12→18:27)
[2021-05-01] MEDS: buprenorphine-naloxone 4-1 mg Film 2 EACH SUBLINGUAL (10:12)
[2021-05-01] MEDS: CLONazepam 0.5 mg Tablet PO ×2 (10:36→12:19)
[2021-05-01] MEDS: acetaminophen 325 mg Tablet 650 MG PO (12:44)
[2021-05-01] MEDS: hyDROXYzine 25 mg Capsule 50 MG PO ×2 (13:51→20:12)
[2021-05-01 14:00] VITALS: BP 103/68; PULSE 97; RESP 17; TEMP 36.9; O2SAT 97
--- NOTE | 2021-05-01 15:20 | P.NPUPN_ITS ---
Subjective NPU Subjective: Interval history: Patient presents today continuing to try to get greater clarity about how the guardianship process works. We spent time talking about how the guardian would exert is a her role in his situation. We also talked about the timeline to guardianship hearings and what he can expect but also expressed unfortunate concern that the [address] been close for snow may negatively impact the time to his hearing. Otherwise reports the medication seems effective and he is eating and sleeping okay. Mental Status Exam MSE Comments: This is an overweight versus obese white male in hospital scrubs with limited grooming and eye contact.? No abnormal movements except mild but resolving psychomotor retardation. Cooperative with exam in no acute distress.? Speech was more normal rate and volume.? Mood described as pretty good, affect slightly subdued.? Thought process organized. Thought content: Patient denied suicidal or homicidal ideation,? no delusions reported or noted, he is e denying auditory or visual hallucinations reported.? Attention and concentration were intact and memory was more reliable but none were formally tested.? He is alert and oriented x3.? Insight and judgment are limited, impulse control is limited. Vitals/I&O/Wt Last Vital Signs Temp 98.5 F 05/01/21 14:00 Pulse 97 05/01/21 14:00 Resp 17 05/01/21 14:00 BP 103/68 05/01/21 14:00 Pulse Ox 97 05/01/21 14:00 Data NPU : 04/19/21 04:46 04/19/21 04:46 A&P Assessment and plan (1) Suicide attempt by drug overdose: Status: Acute (2) Schizophrenia: Status: Acute Qualifiers: Schizophrenia type: unspecified Qualified Code(s): F20.9 - Schizophrenia, unspecified (3) Opiate misuse: Status: Acute (4) Abnormal ECG: Status: Acute (5) Psychosis: Status: Chronic (6) Cluster B personality disorder: Status: Chronic (7) Bipolar depression: Status: Chronic Plan This is a 36-year-old male with schizophrenia with multiple suicide attempts recently.? The lethality of these attempts continues to increase. Plan: 1.?Continue current medication trazodone 100 mg, Latuda 80 mg and Suboxone 8-2 once daily, except increasedThorazine to 250 mg.? We will give Ambien 10 mg p.o. nightly tonight and work to get his Lunesta prescription here since we do not have it in the pharmacy. 2.? Continue every 15 minute checks for safety. 3.? Encourage individual, group and milieu therapies. 4.? Encourage sober living treatment after discharge at the highest level of care to which he is willing to commit. 5.?Significant concerns about lethality exist when he is managing his own medication. We continue to explore residential settings that would assist in his safety outside the hospital. 6.? Filed for guardianship given the great concern over safety at discharge.? However we still may have to face the fact that no one will want to take him so we will also look at other safety options we can put in place. Involuntary Hold Information 96 Hour Hold: 96 Hour Involuntary Admission: No Attestations NPU Medical Necessity Statement*: Inpatient hospitalization is medically necessary and the clinically appropriate intervention at this time.? We will initiate medications and make changes as indicated. Likely length of stay will mostly hands on guardianship hearing but we are working on getting resources in place in the event we cannot find a suitable placement. Coding Level of Care Code Acute Public Health Representative for [employer] Fwd Diagnoses Suicide attempt by drug overdose T50.902A Schizophrenia F20.9 Schizophrenia type: unspecified Opiate misuse F11.90 Abnormal ECG R94.31 Psychosis F29 Cluster B personality disorder F60.89 Bipolar depression F31.9
[2021-05-01] MEDS: lurasidone 80 mg Tablet PO (17:07)
[2021-05-01] MEDS: zolpidem 5 mg Tablet 10 MG PO (20:08)
[2021-05-01] MEDS: chlorPROMazine 50 mg Tablet 250 MG PO (20:08)
[2021-05-01] MEDS: trazodone 100 mg Tablet PO (20:09)
[2021-05-01 21:31] VITALS: BP 93/61; PULSE 75; RESP 17; TEMP 36.7; O2SAT 94
[2021-05-02 06:00] VITALS: BP 95/62; PULSE 86; RESP 18; TEMP 36.6; O2SAT 93
[2021-05-02] MEDS: nicotine 2 mg Gum BUCCAL ×6 (07:46→20:29)
[2021-05-02] MEDS: pantoprazole DR 40 mg Tablet PO (09:15)
[2021-05-02] MEDS: carvedilol 6.25 mg Tablet 3.125 MG PO ×2 (09:15→17:07)
[2021-05-02] MEDS: aspirin 81 mg EC Tablet PO (09:15)
[2021-05-02] MEDS: spironolactone 25 mg Tablet PO (09:16)
[2021-05-02] MEDS: CLONazepam 0.5 mg Tablet PO ×2 (09:24→13:05)
[2021-05-02] MEDS: apixaban 5 mg Tablet PO ×2 (09:27→20:29)
[2021-05-02] MEDS: buprenorphine-naloxone 4-1 mg Film 1 EACH SUBLINGUAL ×2 (09:57→10:00)
--- NOTE | 2021-05-02 11:50 | W.PM.NPUPNS ---
Subjective NPU Subjective: Interval history: Jan presents today with no changes or pressing issues. He described things he was doing here at the hospital to stay busy and to decrease boredom. We discussed expanding that to his home regiment. With a long discussion about the importance of purpose and managing depression and suicidality. He needed he had no purpose and forwarded ideas like volunteering somewhere as a beginning to get him engaged in something other than discharge going home and sitting in his house without anything of purpose to do. Mental Status Exam MSE Comments: This is an overweight versus obese white male in hospital scrubs with limited grooming and eye contact.? No abnormal movements except mild but resolving psychomotor retardation. Cooperative with exam in no acute distress.? Speech was more normal rate and volume.? Mood described as pretty good, affect slightly subdued.? Thought process organized. Thought content: Patient denied suicidal or homicidal ideation,? no delusions reported or noted, he is e denying auditory or visual hallucinations reported.? Attention and concentration were intact and memory was more reliable but none were formally tested.? He is alert and oriented x3.? Insight and judgment are limited, impulse control is limited. Vitals/I&O/Wt Last Vital Signs Temp 97.8 F 05/02/21 06:00 Pulse 86 05/02/21 06:00 Resp 18 05/02/21 06:00 BP 95/62 05/02/21 06:00 Pulse Ox 93 05/02/21 06:00 Data NPU : 04/19/21 04:46 04/19/21 04:46 A&P Assessment and plan (1) Drug overdose: Status: Acute (2) Schizophrenia: Status: Acute Qualifiers: Schizophrenia type: unspecified Qualified Code(s): F20.9 - Schizophrenia, unspecified (3) Opiate misuse: Status: Acute (4) Suicide attempt by drug overdose: Status: Acute (5) Psychosis: Status: Chronic (6) Cluster B personality disorder: Status: Chronic (7) Bipolar depression: Status: Chronic Plan 1.?Continue current medication trazodone 100 mg, Latuda 80 mg and Suboxone 8-2 once daily, except increasedThorazine to 250 mg.? We will give Ambien 10 mg p.o. nightly tonight and work to get his Lunesta prescription here since we do not have it in the pharmacy. 2.? Continue every 15 minute checks for safety. 3.? Encourage individual, group and milieu therapies. 4.? Encourage sober living treatment after discharge at the highest level of care to which he is willing to commit. 5.?Significant concerns about lethality exist when he is managing his own medication. We continue to explore residential settings that would assist in his safety outside the hospital. 6.? Filed for guardianship given the great concern over safety at discharge.? However we still may have to face the fact that no one will want to take him so we will also look at other safety options we can put in place. Involuntary Hold Information 96 Hour Hold: 96 Hour Involuntary Admission: No Attestations NPU Medical Necessity Statement*: Inpatient hospitalization is medically necessary and the clinically appropriate intervention at this time.? We will initiate medications and make changes as indicated. Likely length of stay will mostly hands on guardianship hearing but we are working on getting resources in place in the event we cannot find a suitable placement. Coding Level of Care Code Acute Bone Glue Maker for Jordan Ellisd Diagnoses Drug overdose T50.901A Schizophrenia F20.9 Schizophrenia type: unspecified Opiate misuse F11.90 Suicide attempt by drug overdose T50.902A Psychosis F29 Cluster B personality disorder F60.89 Bipolar depression F31.9
[2021-05-02] MEDS: hyDROXYzine 25 mg Capsule 50 MG PO ×2 (13:37→21:02)
[2021-05-02 14:00] VITALS: BP 114/75; PULSE 83; RESP 20; TEMP 36.6; O2SAT 95
[2021-05-02] MEDS: lurasidone 80 mg Tablet PO (17:08)
[2021-05-02] MEDS: chlorPROMazine 50 mg Tablet 250 MG PO (20:29)
[2021-05-02] MEDS: trazodone 100 mg Tablet PO (20:29)
[2021-05-02] MEDS: zolpidem 5 mg Tablet 10 MG PO (20:29)
[2021-05-02 21:18] VITALS: BP 110/77; PULSE 83; RESP 17; TEMP 36.8; O2SAT 94
--- NOTE | 2021-05-03 04:58 | PC.NURSE ---
Addendum entered by Mariely Lewis RN 05/03/21 05:01: Patient was given PRN hydroxyzine as ordered for anxiety 09/04 with noted effectiveness. Original Note: Patient requested PRN Zolpidem and Trazodone, given together as ordered along with patient requested Nicotine Gum for withdrawals. Patient later came back to nurses desk and c/o anxiety.
[2021-05-03 06:00] VITALS: BP 94/58; PULSE 70; RESP 18; TEMP 36.6; O2SAT 90; BMI 29.7
--- NOTE | 2021-05-03 08:55 | P.NPUPN_ITS ---
Subjective NPU Subjective: Interval history: Patient presents today continuing to be more interactive on the milieu. He did have a split in his heel that was bothering him that we addressed with appropriate treatment. Otherwise he is awaiting decisions on guardianship and whether or not he is going to be able go home or end up in an alternative residential setting. He denies any new issues or problems. Mental Status Exam MSE Comments: This is an overweight versus obese white male in hospital scrubs with limited grooming and eye contact.? No abnormal movements except mild but resolving psychomotor retardation. Cooperative with exam in no acute distress.? Speech was more normal rate and volume.? Mood described as pretty good, affect slightly subdued.? Thought process organized. Thought content: Patient denied suicidal or homicidal ideation,? no delusions reported or noted, he is e denying auditory or visual hallucinations reported.? Attention and concentration were intact and memory was more reliable but none were formally tested.? He is alert and oriented x3.? Insight and judgment are limited, impulse control is limited. Vitals/I&O/Wt Last Vital Signs Temp 97.9 F 05/03/21 06:00 Pulse 70 05/03/21 06:00 Resp 18 05/03/21 06:00 BP 94/58 05/03/21 06:00 Pulse Ox 90 05/03/21 06:00 Data NPU : 04/19/21 04:46 04/19/21 04:46 A&P Assessment and plan (1) Schizophrenia: Status: Acute Qualifiers: Schizophrenia type: unspecified Qualified Code(s): F20.9 - Schizophrenia, unspecified (2) Opiate misuse: Status: Acute (3) Suicide attempt by drug overdose: Status: Acute (4) Psychosis: Status: Chronic (5) Cluster B personality disorder: Status: Chronic (6) Bipolar depression: Status: Chronic Plan 1.?Continue current medication trazodone 100 mg, Latuda 80 mg and Suboxone 8-2 once daily, except increasedThorazine to 250 mg.? We will give Ambien 10 mg p.o. nightly tonight and work to get his Lunesta prescription here since we do not have it in the pharmacy. 2.? Continue every 15 minute checks for safety. 3.? Encourage individual, group and milieu therapies. 4.? Encourage sober living treatment after discharge at the highest level of care to which he is willing to commit. 5.?Significant concerns about lethality exist when he is managing his own medication. We continue to explore residential settings that would assist in his safety outside the hospital. 6.? Filed for guardianship given the great concern over safety at discharge.? However we still may have to face the fact that no one will want to take him so we will also look at other safety options we can put in place. Involuntary Hold Information 96 Hour Hold: 96 Hour Involuntary Admission: No Attestations NPU Medical Necessity Statement*: Inpatient hospitalization is medically necessary and the clinically appropriate intervention at this time.? We will initiate m edications and make changes as indicated. Likely length of stay will mostly hands on guardianship hearing but we are working on getting resources in place in the event we cannot find a suitable placement. Coding Level of Care Code Acute Hairspring Truing Inspector for Jordan Fwd Diagnoses Schizophrenia F20.9 Schizophrenia type: unspecified Opiate misuse F11.90 Suicide attempt by drug overdose T50.902A Psychosis F29 Cluster B personality disorder F60.89 Bipolar depression F31.9
[2021-05-03] MEDS: apixaban 5 mg Tablet PO ×2 (09:04→20:14)
[2021-05-03] MEDS: buprenorphine-naloxone 4-1 mg Film 2 EACH SUBLINGUAL (09:04)
[2021-05-03] MEDS: CLONazepam 0.5 mg Tablet PO ×2 (09:04→12:12)
[2021-05-03] MEDS: aspirin 81 mg EC Tablet PO (09:05)
[2021-05-03] MEDS: spironolactone 25 mg Tablet PO (09:05)
[2021-05-03] MEDS: pantoprazole DR 40 mg Tablet PO (09:05)
[2021-05-03] MEDS: nicotine 2 mg Gum BUCCAL ×4 (09:05→20:18)
[2021-05-03] MEDS: carvedilol 6.25 mg Tablet 3.125 MG PO ×2 (09:05→17:30)
[2021-05-03] MEDS: acetaminophen 325 mg Tablet 650 MG PO (12:49)
[2021-05-03] MEDS: hyDROXYzine 25 mg Capsule 50 MG PO ×2 (13:28→20:15)
[2021-05-03] MEDS: neomycin-poly-bacitracin oint 28 gm 1 APPLIC TOPICAL (13:35)
[2021-05-03 14:00] VITALS: BP 114/77; PULSE 105; RESP 17; TEMP 36.6; O2SAT 97
[2021-05-03] MEDS: diphenhydrAMINE 50 mg Capsule PO ×2 (15:10→21:19)
[2021-05-03] MEDS: ibuprofen 600 mg Tablet PO ×2 (15:10→21:15)
[2021-05-03] MEDS: lurasidone 80 mg Tablet PO (16:43)
[2021-05-03] MEDS: zolpidem 5 mg Tablet 10 MG PO (20:13)
[2021-05-03] MEDS: chlorPROMazine 50 mg Tablet 250 MG PO (20:14)
[2021-05-03] MEDS: trazodone 100 mg Tablet PO (20:14)
[2021-05-03 20:29] VITALS: BP 121/77; PULSE 69; RESP 17; TEMP 36.7; O2SAT 92
[2021-05-04 06:00] VITALS: BP 92/52; PULSE 86; RESP 18; TEMP 36.1; O2SAT 97
[2021-05-04] MEDS: pantoprazole DR 40 mg Tablet PO (08:40)
[2021-05-04] MEDS: apixaban 5 mg Tablet PO ×2 (08:40→21:40)
[2021-05-04] MEDS: spironolactone 25 mg Tablet PO (08:40)
[2021-05-04] MEDS: CLONazepam 0.5 mg Tablet PO ×2 (08:40→12:54)
[2021-05-04] MEDS: buprenorphine-naloxone 4-1 mg Film 2 EACH SUBLINGUAL (08:40)
[2021-05-04] MEDS: aspirin 81 mg EC Tablet PO (08:40)
[2021-05-04] MEDS: carvedilol 6.25 mg Tablet 3.125 MG PO ×2 (08:40→17:53)
[2021-05-04] MEDS: nicotine 2 mg Gum BUCCAL ×6 (08:40→21:40)
[2021-05-04] MEDS: ibuprofen 600 mg Tablet PO (09:50)
[2021-05-04] MEDS: diphenhydrAMINE 50 mg Capsule PO (09:51)
[2021-05-04] MEDS: petrolatum oint Pkt 5 gm 1 APPLIC TOPICAL (10:17)
[2021-05-04] MEDS: neomycin-poly-bacitracin oint 28 gm 1 APPLIC TOPICAL (10:17)
--- NOTE | 2021-05-04 12:52 | NPU.GN ---
[facility] Topic: Whine Barrel Activity General Mood of Group: Shayan did attend and participate in group today. He was social and seemed to be stable. He asked how to contact [facility] to see if he can still get services as he did fill out the new [facility] patient paperwork a few months back. This fha underwriter suggested that client talk to Gee and call [facility] himself to get an update.
[2021-05-04 14:00] VITALS: BP 125/81; PULSE 85; RESP 18; TEMP 36.6; O2SAT 95
[2021-05-04] MEDS: hyDROXYzine 25 mg Capsule 50 MG PO ×2 (14:20→21:40)
[2021-05-04] MEDS: acetaminophen 325 mg Tablet 650 MG PO (14:21)
[2021-05-04] MEDS: lurasidone 80 mg Tablet PO (16:20)
[2021-05-04] MEDS: haloperidol 5 mg Tablet PO ×2 (16:59→21:54)
--- NOTE | 2021-05-04 18:49 | P.NPUPN_ITS ---
Subjective NPU Subjective: Interval history: Patient presented today with some frustration and confusion about the circumstances of being here. We took time to get clarity to what he thought conflicting reports. We are clear with him that we are seeking input secondary to the concerns of the grave nature about his continued intensive suicide attempts. However we also discussed the fact that this point we have had little interest in people agreeing to manage him in any facility locked or otherwise. We had never had difficulty with him inpatient what his medications have been handed to him challenges we have added when he has been home acting on urges. The discussions about home health and management is all part of the contingency plan if we are really not able to get anyone to consider what is a very reasonable patient. Mental Status Exam MSE Comments: This is an overweight versus obese white male in hospital scrubs with limited grooming and eye contact.? No abnormal movements except mild but resolving psychomotor retardation. Cooperative with exam in no acute distress.? Speech was more normal rate and volume.? Mood described as pretty good, affect slightly subdued.? Thought process organized. Thought content: Patient denied suicidal or homicidal ideation,? no delusions reported or noted, he is e denying auditory or visual hallucinations reported.? Attention and concentration were intact and memory was more reliable but none were formally tested.? He is alert and oriented x3.? Insight and judgment are limited, impulse control is limited. Vitals/I&O/Wt Last Vital Signs Temp 97.6 F 05/04/21 21:23 Pulse 78 05/04/21 21:23 Resp 18 05/04/21 21:23 BP 110/74 05/04/21 21:23 Pulse Ox 96 05/04/21 21:23 Weight last 48 hrs Weight 96.706 kg Data NPU : 04/19/21 04:46 04/19/21 04:46 A&P Assessment and plan (1) Suicide attempt by drug overdose: Status: Acute (2) Schizophrenia: Status: Acute Qualifiers: Schizophrenia type: unspecified Qualified Code(s): F20.9 - Sc hizophrenia, unspecified (3) Opiate misuse: Status: Acute (4) Psychosis: Status: Chronic (5) Cluster B personality disorder: Status: Chronic (6) Bipolar depression: Status: Chronic (7) Abnormal ECG: Status: Acute Plan This is a 36-year-old male with schizophrenia with multiple suicide attempts recently.? The lethality of these attempts continues to increase. 1.?Continue current medication trazodone 100 mg, Latuda 80 mg and Suboxone 8-2 once daily, except increasedThorazine to 250 mg.? We will give Ambien 10 mg p.o. nightly tonight and work to get his Lunesta prescription here since we do not have it in the pharmacy. 2.? Continue every 15 minute checks for safety. 3.? Encourage individual, group and milieu therapies. 4.? Encourage sober living treatment after discharge at the highest level of care to which he is willing to commit. 5.?Significant concerns about lethality exist when he is managing his own medication. We continue to explore residential settings that would assist in his safety outside the hospital. 6.? Filed for guardianship given the great concern over safety at discharge.? However we still may have to face the fact that no one will want to take him so we will also look at other safety options we can put in place. Involuntary Hold Information 96 Hour Hold: 96 Hour Involuntary Admission: No Attestations NPU Medical Necessity Statement*: Inpatient hospitalization is medically necessary and the clinically appropriate intervention at this time.? We will initiate medications and make changes as indicated. Likely length of stay will mostly hands on guardianship hearing but we are working on getting resources in place in the event we cannot find a suitable placement. Coding Level of Care Code Acute Steel Plate Caulker for Jordan Craft Diagnoses Suicide attempt by drug overdose T50.902A Schizophrenia F20.9 Schizophrenia type: unspecified Opiate misuse F11.90 Psychosis F29 Cluster B personality disorder F60.89 Bipolar depression F31.9 Abnormal ECG R94.31
[2021-05-04 21:23] VITALS: BP 110/74; PULSE 78; RESP 18; TEMP 36.4; O2SAT 96
[2021-05-04] MEDS: zolpidem 5 mg Tablet 10 MG PO (21:42)
[2021-05-04] MEDS: chlorPROMazine 50 mg Tablet 250 MG PO (21:43)
[2021-05-04] MEDS: trazodone 100 mg Tablet PO ×2 (21:43→21:54)
[2021-05-05 06:00] VITALS: BP 87/42; PULSE 77; RESP 16; TEMP 36.9; O2SAT 92
[2021-05-05] MEDS: buprenorphine-naloxone 4-1 mg Film 2 EACH SUBLINGUAL (09:27)
[2021-05-05] MEDS: apixaban 5 mg Tablet PO ×2 (09:27→21:10)
[2021-05-05] MEDS: nicotine 2 mg Gum BUCCAL ×4 (09:27→21:10)
[2021-05-05] MEDS: aspirin 81 mg EC Tablet PO (09:27)
[2021-05-05] MEDS: carvedilol 6.25 mg Tablet 3.125 MG PO ×2 (09:27→17:11)
[2021-05-05] MEDS: spironolactone 25 mg Tablet PO (09:28)
[2021-05-05] MEDS: pantoprazole DR 40 mg Tablet PO (09:28)
[2021-05-05] MEDS: CLONazepam 0.5 mg Tablet PO ×2 (09:28→12:03)
[2021-05-05] MEDS: diphenhydrAMINE 50 mg Capsule PO (12:03)
[2021-05-05] MEDS: ibuprofen 600 mg Tablet PO ×2 (12:03→21:56)
--- NOTE | 2021-05-05 12:45 | NPU.GN ---
[facility] Topic: Self Care General Mood of Group: Shayan did not attend group he was sleeping .
[2021-05-05 14:00] VITALS: BP 75/43; PULSE 74; RESP 17; TEMP 36.8; O2SAT 93
--- NOTE | 2021-05-05 16:32 | P.NPUPN_ITS ---
Subjective NPU Subjective: Interval history: Patient presents today continuing to express concern about the process. Discussed the fact that he will be notified when [place] hearing. He was upset that he presented having a 20-year-old was served noticing he had not received any notice yet. We continue to discuss the circumstances surrounding our procedure guardianship. We continue to discuss the fact that he manages himself well except when he has full access to his medication. Mental Status Exam MSE Comments: This is an overweight versus obese white male in hospital scrubs with limited grooming and eye contact.? No abnormal movements except mild but resolving psychomotor retardation. Cooperative with exam in no acute distress.? Speech was more normal rate and volume.? Mood described as pretty good, but bored affect slightly subdued.? Thought process organized. Thought content: Patient denied suicidal or homicidal ideation,? no delusions reported or noted, he is denying auditory or visual hallucinations reported.? Attention and concentration were intact and memory was more reliable but none were formally tested.? He is alert and oriented x3.? Insight and judgment are limited, impulse control is limited. Vitals/I&O/Wt Last Vital Signs Temp 98.2 F 05/05/21 14:00 Pulse 74 05/05/21 14:00 Resp 17 05/05/21 14:00 BP 75/43 05/05/21 14:00 Pulse Ox 93 05/05/21 14:00 Data NPU : 04/19/21 04:46 04/19/21 04:46 A&P Assessment and plan (1) Intentional drug overdose: Status: Acute (2) Schizophrenia: Status: Acute Qualifiers: Schizophrenia type: unspecified Qualified Code(s): F20.9 - Schizophrenia, unspecified (3) Opiate misuse: Status: Acute (4) Suicide attempt by drug overdose: Status: Acute (5) Psychosis: Status: Chronic (6) Cluster B personality disorder: Status: Chronic (7) Bipolar depression: Status: Chronic Plan This is a 36-year-old male with schizophrenia with multiple suicide attempts recently.? The lethality of these attempts continues to increase. 1.?Continue current medication trazodone 100 mg, Latuda 80 mg and Suboxone 8-2 once daily, except increasedThorazine to 250 mg.? We will give Ambien 10 mg p.o. nightly tonight and work to get his Lunesta prescription here since we do not have it in the pharmacy. 2.? Continue every 15 minute checks for safety. 3.? Encourage individual, group and milieu therapies. 4.? Encourage sober living treatment after discharge at the highest level of care to which he is willing to commit. 5.?Significant concerns about lethality exist when he is managing his own medication. We continue to explore residential settings that would assist in his safety outside the hospital. 6.? Filed for guardianship given the great concern over safety at discharge.? However we still may have to face the fact that no one will want to take him so we will also look at other safety options we can put in place. Involuntary Hold Information 96 Hour Hold: 96 Hour Involuntary Admission: No Attestations NPU Medical Necessity Statement*: Inpatient hospitalization is medically necessary and the clinically appropriate intervention at this time.? We will initiate medications and make changes as indicated. Likely length of stay will mostly hands on guardianship hearing but we are working on getting resources in place in the event we cannot find a suitable placement. Coding Level of Care Code Acute Environmental Services Coordinator for Jordan Fwd Diagnoses Intentional drug overdose T50.902A Schizophrenia F20.9 Schizophrenia type: unspecified Opiate misuse F11.90 Suicide attempt by drug overdose T50.902A Psychosis F29 Cluster B personality disorder F60.89 Bipolar depression F31.9
[2021-05-05] MEDS: hyDROXYzine 25 mg Capsule 50 MG PO ×2 (16:34→21:57)
[2021-05-05] MEDS: lurasidone 80 mg Tablet PO (16:34)
[2021-05-05] MEDS: haloperidol 5 mg Tablet PO (17:38)
--- NOTE | 2021-05-05 18:14 | PC.NURSE ---
PRN Patient has had some anxiety this evening. Took PRN medications. Received PRN Vistaril at 1630 that was not effective for anxiety/agitation. At 1738 patient took PRN Haldol for continued agitation as PRN Zydis has been ineffective for patient in past. Haldol has been effective.
[2021-05-05 20:17] VITALS: BP 91/60; PULSE 72; RESP 18; TEMP 36.6; O2SAT 98
[2021-05-05] MEDS: zolpidem 5 mg Tablet 10 MG PO (21:10)
[2021-05-05] MEDS: trazodone 100 mg Tablet PO (21:10)
[2021-05-05] MEDS: chlorPROMazine 50 mg Tablet 250 MG PO (21:10)
[2021-05-06 05:38] VITALS: BP 70/39; PULSE 67; RESP 17; TEMP 36.8; O2SAT 93
[2021-05-06] MEDS: pantoprazole DR 40 mg Tablet PO (08:05)
[2021-05-06] MEDS: aspirin 81 mg EC Tablet PO (08:05)
[2021-05-06] MEDS: CLONazepam 0.5 mg Tablet PO ×2 (08:05→16:36)
[2021-05-06] MEDS: buprenorphine-naloxone 4-1 mg Film 2 EACH SUBLINGUAL (08:05)
[2021-05-06] MEDS: apixaban 5 mg Tablet PO ×2 (08:05→20:42)
[2021-05-06] MEDS: acetaminophen 325 mg Tablet 650 MG PO (08:26)
[2021-05-06] MEDS: nicotine 2 mg Gum BUCCAL ×5 (08:27→20:42)
[2021-05-06 09:04] VITALS: BP 100/60
--- NOTE | 2021-05-06 09:06 | P.CONIM_ITS ---
Providers/Reason For Consult Consulting Physician/Specialty*: Frase/Hosptialist Reason for Consult*: Hypotension Requesting Physician: Dr Escobar Attending Physician: Jag Escobar MD History of Present Illness History of Present Illness Shayan Dickson is a 36 year old male who originally presented to the emergency room on 04/16 after overdose on multiple substances in suicide attempt. He originally required stabilization in the intensive care unit due to degree of hypotension/cardiogenic shock as per admission notes. He was transferred to the Neuro[facility] Unit on April 19. Today he was not quite himself, walking around or interacting as much as he had been. Vital signs were checked and blood pressure was noted to be in the 70s systolic. Baseline blood pressures are low normal ranging from 90s to low 100s. Intermittently has had pressures in the 80s. Hospitalist were consulted emergently due to degree of hypotension. He had diagnosis of PE in January of last year for which he is on Eliquis. He also has a history of nonischemic cardiomyopathy with an ejection fraction around 35%. He is chronically on Aldactone and low-dose carvedilol. It was reported that he had overdosed on all of these medications at presentation but they had been resumed. He takes Suboxone chronically as well. His carvedilol and Aldactone were held this morning because of pressures. He received Suboxone today and carvedilol last night with Aldactone yesterday morning. He is on other medications as noted in medication list also. He feels tired but otherwise no specific complaints. Only when directly asked did he mention he has intermittent sharp chest pain, left-sided, no radiation, worse with palpation of chest. No fevers or upper respiratory symptoms, no GI symptoms. He does have some pain in his right heel that have been covered with a Band-Aid. He has some cracked skin there. No other sores of concern to him. He does not feel particularly short of breath. He has gotten up out of bed and was not dizzy upon rising from a supine to seated and then standing position. No edema. No change in urine output. He had stress testing in January 2021 that was unremarkable. Other than not having as much energy today and the pain in his right heel, he again does not have any specific complaints. Review of Systems Const: Reports: fatigue; Denies: fever(s) ENMT: Denies: throat pain or nasal congestion Card: Reports: chest pain (left, sharp, intermittent, non-radiating); Denies: palpitations, edema, lightheadedness, dyspnea on exertion or orthopnea Resp: Denies: dyspnea, productive cough, non-productive cough or pain on inspiration GI: Denies: nausea or vomiting : Reports: other (no change in urine output) Musc: Reports: other (right heel pain) Skin/Breast: Reports: other (sore right heel) Neuro: Denies: difficulty walking or dizziness Psych: Reports: other (feels better than on arrival) Miguel Angel/Lymph: Reports: other (no bleeding reported) Medications/Allergies Home Medications Medication Instructions Recorded Confirmed Last Taken Type apixaban 5 mg tablet (Eliquis) 5 mg PO BID #60 tab 04/06/21 04/16/21 Unknown Rx aspirin 81 mg tablet,delayed 81 mg PO DAILY 04/06/21 04/16/21 Unknown History release (Adult Low Dose Aspirin) carvedilol 3.125 mg tablet 3.125 mg PO BID #60 tab 04/06/21 04/16/21 Unknown Rx chlorpromazine 50 mg tablet 150 mg PO BEDTIME 30 Days #90 tab 04/06/21 04/16/21 Unknown Rx clonazepam 0.5 mg tablet 0.5 mg PO BID@09,21 30 Days #60 tab 04/06/21 04/16/21 Unknown Rx eszopiclone 1 mg tablet (Lunesta) 1 mg PO BEDTIME 30 Days #30 tab 04/06/21 04/16/21 Unknown Rx hydroxyzine pamoate 25 mg capsule 50 mg PO Q6H PRN 30 Days #180 cap 04/06/21 04/16/21 Unknown Rx losartan 25 mg tablet 25 mg PO DAILY #30 tab 04/06/21 04/16/21 Unknown Rx lurasidone 20 mg tablet (Latuda) 40 mg PO 1700 30 Days #60 tab 04/06/21 04/16/21 Unknown Rx spironolactone 25 mg tablet 25 mg PO DAILY #30 tab 04/06/21 04/16/21 Unknown Rx trazodone 100 mg tablet 100 mg PO BEDTIME PRN 30 Days #30 04/06/21 04/16/21 Unknown Rx tab Allergies Allergy/AdvReac Type Severity Reaction Status Date / Time mushroom Allergy Unknown Unknown Verified 04/16/21 15:01 escitalopram [From Lexapro] Allergy ALGY-Anaphy Verified 04/16/21 15:01 laxis NSAIDS (Non-Steroidal Allergy ADR-Abdominal Verified 04/16/21 15:01 Anti-Inflamma Pain venlafaxine [From Effexor] Allergy ALGY-Anaphy Verified 04/16/21 15:01 laxis Current Medications Generic Name Dose Route Start Last Admin Trade Name Freq PRN Reason Stop Dose Admin Acetaminophen 650 mg 04/16/21 21:32 05/06/21 08:26 Acetaminophen 325 Mg Tablet PO 650 mg Q6H PRN Administration Mild/Mod Pain Or Temp >/= 101 Apixaban 5 mg 04/19/21 09:00 05/06/21 08:05 Apixaban 5 Mg Tablet PO 5 mg BID@0900,2100 NEFTALY Administration Aspirin 81 mg 04/20/21 09:00 05/06/21 08:05 Aspirin 81 Mg Ec Tablet PO 81 mg DAILY NEFTALY Administration Buprenorphine/Naloxone 2 each 05/03/21 09:00 05/06/21 08:05 Buprenorphine-Naloxone 4-1 Mg Film SUBLINGUAL 2 each DAILY NEFTALY Administration Carvedilol 3.125 mg 04/19/21 18:00 05/05/21 17:11 Carvedilol 6.25 Mg Tablet PO 3.125 mg BID NEFTALY Administration Chlorpromazine HCl 250 mg 04/27/21 21:00 05/05/21 21:10 Chlorpromazine 50 Mg Tablet PO 250 mg BEDTIME NEFTALY Administration Clonazepam 0.5 mg 05/01/21 08:00 05/06/21 08:05 Clonazepam 0.5 Mg Tablet PO 0.5 mg BID@0800,1300 NEFTALY Administration Diphenhydramine HCl 50 mg 05/03/21 14:56 05/05/21 12:03 Diphenhydramine 50 Mg Capsule PO 50 mg Q4H PRN Administration RASH Emollient Ointment 1 applic 05/03/21 12:52 05/04/21 10:17 Petrolatum Oint Pkt 5 Gm TOPICAL 1 applic PRN PRN Administration SKIN PROTECTANT Haloperidol 5 mg 04/19/21 12:29 05/05/21 17:38 Haloperidol 5 Mg Tablet PO 5 mg Q4H PRN Administration AGITATION Hydroxyzine Pamoate 50 mg 04/19/21 12:29 05/05/21 21:57 Hydroxyzine 25 Mg Capsule PO 50 mg Q6H PRN Administration ANXIETY Lurasidone HCl 80 mg 04/20/21 17:00 05/05/21 16:34 Lurasidone 80 Mg Tablet PO 80 mg 1700 NEFTALY Administration Neomycin/Polymyxin/Bacitracin 1 applic 05/03/21 12:44 05/04/21 10:17 Ycyyjrrq-Shto-Ibgbthsduz Oint 28 Gm TOPICAL 1 applic PRN PRN Administration DRY SKIN Nicotine Polacrilex 2 mg 04/19/21 12:29 05/06/21 08:27 Nicotine 2 Mg Gum BUCCAL 2 mg Q2H PRN Administration NICOTINE WITHDRAWAL Pantoprazole Sodium 40 mg 04/20/21 09:00 05/06/21 08:[address] 40 Mg Tablet PO 40 mg DAILY NEFTALY Administration Spironolactone 25 mg 04/20/21 09:00 05/05/21 09:28 Spironolactone 25 Mg Tablet PO 25 mg DAILY NEFTALY Administration Trazodone HCl 100 mg 04/19/21 13:34 05/05/21 21:10 Trazodone 100 Mg Tablet PO 100 mg BEDTIME PRN Administration Insomnia Zolpidem Tartrate 10 mg 05/05/21 19:53 05/05/21 21:10 Zolpidem 5 Mg Tablet PO 10 mg BEDTIME PRN Administration SLEEP PFSH Acute PFSH: Medical History (Updated 05/06/21 @ 09:47 by Hodan Garsia MD) Acute pancreatitis (~12/2020) History of cardiovascular stress test (~01/2021) History of foreign body ingestion intentional, requiring invasive intervention Opiate misuse QT prolongation history of medication induced QT prolongation Schizophrenia Suicide attempt Ulcerative colitis Surgical History (Updated 05/06/21 @ 09:21 by Hodan Garsia MD) History of appendectomy History of esophagogastroduodenoscopy (EGD) Social History (Updated 05/06/21 @ 10:00 by Hodan Garsia MD) Smoking and tobacco status: current every day smoker Alcohol intake: current Substance/Drug Use: former Vitals/I&O/Wt Last Vital Signs Temp 98.2 F 05/06/21 05:38 Pulse 67 05/06/21 05:38 Resp 17 05/06/21 05:38 BP 100/60 02/09/22 09:04 Pulse Ox 93 05/06/21 05:38 Physical Exam Narrative: Constitutional: asleep, arousable, cooperative HEENT: pupils equal and reactive, not pinpoint, moist membranes Neck: no jvd Respiratory: clear bilaterally Cardiovascular: regular rhythm, no gallops or rubs, chest wall mildly tender to palpation left Abdomen: soft, positive bowel sounds Extremities: no edema Skin: right heel with 1.5 cm crack with overlying calloused skin, no warmth compared to rest of foot/lower leg, no redness, may have some underlying discoloration or brusing but callous limits ability to see, softer around the crack than rest of heel, tender to palpation, no drainage or bleeding Neuro:speech clear, moves all extemities Psych: normal affect Data : 04/19/21 04:46 04/19/21 04:46 A&P Assessment and plan (1) Hypotension: Review of vitals from hospital stay shows generally low normal baseline with intermittent systolic pressures in 80s and upper 70s. May be related to medications, volume fluctuations, cardiovascular changes, infection. No clear evidence of infection from history and exam beyond a painful area right heel with cracking. Denies symptoms of acute CHF, some intermittent chest pain. No bleeding reported. Primary suspicion is medication effect. Low blood pressure alone can account for fatigue and less energy he is experiencing today. No access to substances he could have overdosed on known. Check cbc, cmp Manual blood pressure check Orthostatics Slow with position changes Morning medications held including coreg and aldactone as well as suboxone and clonazepam Status: Acute (2) Heel sore: Right heel, cracked skin, mild softness despite callous, possible discoloration, tender Optifoam and daily visual checks Status: Acute (3) Non-ischemic cardiomyopathy: Echo 02/13/21 with EF 30-35% Myocardial perfusion scan 02/17/21 nl EF, no ischemia Status: Chronic (4) Pulmonary embolism: Right sided, upper and middle lobes, described as tiny in report dated 02/13/21 Status: Chronic Qualifiers: Pulmonary embolism type: other Chronicity: chronic Acute cor pulmonale presence: without acute cor pulmonale Qualified Code(s): I27.82 - Chronic pulmonary embolism (5) Chronic anticoagulation: On eliquis, resumed 04/19/21 Status: Chronic (6) Suicide attempt by drug overdose: Reported ingestion of eliquis, thorazine, corvedilol, lunesta, vistaril and clinazepam prior to admission High potential for life threatening consequences Transferred to NPU after stabilzation Status: Acute (7) Cardiogenic shock: Present at admission, related to overdose and comorbid conditions, statbilized in ICU, resolved Status: Resolved Plan Thank you for consult Will follow up pending labs and repeat blood pressures, manual recheck now 100/60 left arm Will follow and adjust medications as needed, monitor blood pressures and keep eye on heel would Coding Level of Care Code Acute Systems Integrator for Jordan Fwd Diagnoses Hypotension I95.9 Non-ischemic cardiomyopathy I42.8 Pulmonary embolism I27.82 Pulmonary embolism type: other Chronicity: chronic Acute cor pulmonale presence: without acute cor pulmonale Chronic anticoagulation Z79.01 Suicide attempt by drug overdose T50.902A Cardiogenic shock R57.0 Heel sore L98.9
[2021-05-06 09:19] LABS: Basophils % 0.5 %; Eosinophils # 0.6 10^3/uL (0.0-0.8); Eosinophils % 10.6 %; Hematocrit 33.6 % (42.0-52.0); Hemoglobin 11.1 g/dL (11.7-16.6); Lymphocytes # 1.8 10^3/uL (0.8-4.8); Lymphocytes % 30.4 %; Mean Corpuscular Hemoglobin 28.4 pg (28.0-34.0); Mean Corpuscular Volume 85.9 fl (80-94); Mean Platelet Volume 9.6 fL (7.4-10.4); Monocytes # 0.7 10^3/uL (0.2-0.9); Monocytes % 11.1 %; Neutrophils # 2.86 10^3/uL (1.8-7.7); Neutrophils % 47.1 %; Nucleated Red Blood Cells % 0 %; Platelet Count 216 10^3/cmm (130-400); Red Blood Count 3.91 10^6/uL (4.1-5.3); Red Cell Distribution Width 13.2 % (12.1-15.1); White Blood Count 6.1 10^3/uL (4.0-10.0)
[2021-05-06 09:34] LABS: Prothrombin Time > 120.00 SECONDS (12.1-14.9)
[2021-05-06 09:47] LABS: Alanine Aminotransferase 27 U/L (0-41); Albumin Level 3.7 g/dL (3.5-5.2); Alkaline Phosphatase 65 IU/L (40-130); Anion Gap 13.6 (5-19); Aspartate Amino Transferase 24 U/L (0-40); Blood Urea Nitrogen 21 mg/dL (6-20); Calcium 8.9 mg/dL (8.5-10.5); Carbon Dioxide 23 mmol/L (22-29); Chloride 104 mmol/L (98-107); Creatinine Clr Calc Pharmacy 149.9623; Globulin 1.8 g/dL (1.3-4.6); Glomerular Filtration Rate 108.8 mL/min (90-130); Glucose 71 mg/dL (65-115); Osmolality Calculated 283 mOsm/kg (285-295); Potassium 4.6 mmol/L (3.5-5.1); Sodium 136 mmol/L (136-145); Total Bilirubin 0.2 mg/dL (0.15-1.2); Total Protein 5.5 g/dL (6.6-8.7)
[2021-05-06 10:52] LABS: INR > 20.00 (0.8-1.2)
[2021-05-06 10:54] LABS: Partial Thromboplastin Time > 250.0 SECONDS (23.9-36.7)
[2021-05-06 12:03] VITALS: BP 102/58; BP 104/60; BP 94/62
--- NOTE | 2021-05-06 12:28 | PC.NURSE ---
Patient at nurses station requesting Ibuprofen. Instructed patient that the physician discontinued this medication due to abnormal lab results from this morning. Patient then request for clonazepam. Instructed patient that the medication is currently on hold due to his blood pressure. Patient request to leave AMA. Educated patient that he is on administrative hold since guardianship paper were filed with the court. Patient is anxious. Offered alternative PRN medication and patient refused. I told him we would be rechecking his blood pressure at 2 pm and he stated I don't want you to touch me. Patient returned to room.
--- NOTE | 2021-05-06 12:40 | NPU.GN ---
[facility] Topic:Coping Skills General Mood of Group: Jan did not attend group today.
[2021-05-06] MEDS: hyDROXYzine 25 mg Capsule 50 MG PO (12:58)
[2021-05-06] MEDS: haloperidol 5 mg Tablet PO (12:58)
--- NOTE | 2021-05-06 13:44 | W.PM.NPUPNS ---
Subjective NPU Subjective: Interval history: Patient presents today reporting that he would like to have his medications for anxiety and sleep. We discussed the purpose of the consult and concerns about his blood pressure being so low. We agreed that we would evaluate the concerns first and have the hospitalist determine what we should do with his blood pressure medication and then decide to do the medication on hold. We also discussed that we had not been advised by the court house when the hearing would be for his guardianship. Otherwise he denies feeling any sort of way did not report feeling like he was faint. We discussed that the new doctor would come on service tomorrow. Mental Status Exam MSE Comments: This is an overweight versus obese white male in hospital scrubs with limited grooming and eye contact.? He did look a bit peaked which raised concern. No abnormal movements except mild but resolving psychomotor retardation. Cooperative with exam in no acute distress.? Speech was more normal rate and volume.? Mood described as okay, but bored, affect slightly subdued.? Thought process organized. Thought content: Patient denied suicidal or homicidal ideation,? no delusions reported or noted, he is denying auditory or visual hallucinations reported.? Attention and concentration were intact and memory was more reliable but none were formally tested.? He is alert and oriented x3.? Insight and judgment are limited, impulse control is limited. Vitals/I&O/Wt Last Vital Signs Temp 98.2 F 05/06/21 05:38 Pulse 67 05/06/21 05:38 Resp 17 05/06/21 05:38 BP 70/39 05/06/21 05:38 Pulse Ox 93 05/06/21 05:38 Data NPU : 05/06/21 09:09 05/06/21 09:09 A&P Assessment and plan (1) Heel sore: Status: Acute (2) Hypotension: Status: Acute (3) Chronic anticoagulation: Status: Chronic (4) Pulmonary embolism: Status: Chronic Qualifiers: Pulmonary embolism type: other Chronicity: chronic Acute cor pulmonale presence: without acute cor pulmonale Qualified Code(s): I27.82 - Chronic pulmonary embolism (5) Intentional drug overdose: Status: Acute (6) Schizophrenia: Status: Chronic Qualifiers: Schizophrenia type: unspecified Qualified Code(s): F20.9 - Schizophrenia, unspecified (7) Opiate misuse: Status: Chronic (8) Suicide attempt by drug overdose: Status: Acute (9) Psychosis: Status: Chronic (10) Cluster B personality disorder: Status: Chronic (11) Bipolar depression: Status: Chronic Plan This is a 36-year-old male with schizophrenia with multiple suicide attempts recently.? The lethality of these attempts continues to increase. 1.?Continue current medication trazodone 100 mg, Latuda 80 mg and Suboxone 8-2 once daily, except increasedThorazine to 250 mg.? We will give Ambien 10 mg p.o. nightly tonight and work to get his Lunesta prescription here since we do not have it in the pharmacy. 2.? Continue every 15 minute checks for safety. 3.? Encourage individual, group and milieu therapies. 4.? Encourage sober living treatment after discharge at the highest level of care to which he is willing to commit. 5.?Significant concerns about lethality exist when he is managing his own medication. We continue to explore residential settings that would assist in his safety outside the hospital. 6.? Filed for guardianship given the great concern over safety at discharge.? However we still may have to face the fact that no one will want to take him so we will also look at other safety options we can put in place. 7. Blood pressures have been running low. Consult hospitalist and labs were ordered and few medications were put on hold. Will await recommendations and follow as indicated. Involuntary Hold Information 96 Hour Hold: 96 Hour Involuntary Admission: No Attestations NPU Medical Necessity Statement*: Inpatient hospitalization is medically necessary and the clinically appropriate intervention at this time.? We will initiate medications and make changes as indicated. Likely length of stay will mostly hands on guardianship hearing but we are working on getting resources in place in the event we cannot find a suitable placement. 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
[2021-05-06 14:00] VITALS: BP 109/72; PULSE 78; RESP 20; TEMP 36.7; O2SAT 100
[2021-05-06 14:53] VITALS: BP 93/64; PULSE 84; RESP 20; TEMP 36.3; O2SAT 95
[2021-05-06] MEDS: lurasidone 80 mg Tablet PO (16:36)
[2021-05-06 20:06] VITALS: BP 120/73; PULSE 84; RESP 16; TEMP 36.3; O2SAT 96
[2021-05-06] MEDS: trazodone 100 mg Tablet PO (20:41)
[2021-05-06] MEDS: chlorPROMazine 50 mg Tablet 250 MG PO (20:41)
[2021-05-06] MEDS: zolpidem 5 mg Tablet 10 MG PO (20:41)
--- NOTE | 2021-05-07 02:07 | PC.NURSE ---
PRN Administration Patient requested Trazodone and nicotine gum PRN, given as ordered with noted effectiveness. Also rcvd one time order for Zolpidem 10mg from Dr. Escobar.
[2021-05-07 06:00] VITALS: BP 90/50; PULSE 80; RESP 16; O2SAT 92
[2021-05-07 07:31] LABS: Basophils % 0.5 %; Eosinophils # 0.6 10^3/uL (0.0-0.8); Eosinophils % 10.6 %; Hematocrit 34.2 % (42.0-52.0); Hemoglobin 11.3 g/dL (11.7-16.6); Lymphocytes # 1.9 10^3/uL (0.8-4.8); Lymphocytes % 33.5 %; Mean Corpuscular Hemoglobin 28.5 pg (28.0-34.0); Mean Corpuscular Volume 86.4 fl (80-94); Mean Platelet Volume 9.9 fL (7.4-10.4); Monocytes # 0.7 10^3/uL (0.2-0.9); Monocytes % 12.4 %; Neutrophils # 2.41 10^3/uL (1.8-7.7); Neutrophils % 42.8 %; Nucleated Red Blood Cells % 0 %; Platelet Count 221 10^3/cmm (130-400); Red Blood Count 3.96 10^6/uL (4.1-5.3); Red Cell Distribution Width 13.1 % (12.1-15.1); White Blood Count 5.6 10^3/uL (4.0-10.0)
--- NOTE | 2021-05-07 08:03 | USCV_ITS ---
Shayan Dickson Age: 36 Gender: M : 1985 Exam Date: 05/07/2021 13:29 Ordering Phys: Mich Madera MD Technologist: CARLA Exam Location: [facility] [place] Indication: PAST HISTORY OF PE PROCEDURES: Venous duplex imaging was performed in bilateral lower extremities. The following venous structures were evaluated: common femoral vein, profunda vein, proximal portion of the greater saphenous vein, superficial femoral vein, and the popliteal vein. In addition, the posterior tibial and peroneal trunk were evaluated. Serial compression, augmentation maneuvers, and spectral Doppler flow evaluation were performed. FINDINGS: Normal 2-D Doppler and augmentation and compressibility throughout the lower extremity venous structures. Additional imaging through the proximal calf veins also reveals no thrombus. Limited evaluation of the greater saphenous vein is patent with no thrombus.. CONCLUSIONS No evidence of right lower extremity DVT. No evidence of left lower extremity DVT. Oliver Mcclelland MD (Electronically Signed) Final Date: 07 May 2021 16:16 S
[2021-05-07] MEDS: nicotine 2 mg Gum BUCCAL ×4 (09:38→17:06)
[2021-05-07] MEDS: aspirin 81 mg EC Tablet PO (09:38)
[2021-05-07] MEDS: CLONazepam 0.5 mg Tablet PO ×2 (09:38→12:23)
[2021-05-07] MEDS: apixaban 5 mg Tablet PO (09:38)
[2021-05-07] MEDS: buprenorphine-naloxone 4-1 mg Film 1 EACH SUBLINGUAL ×2 (09:38→11:34)
[2021-05-07] MEDS: pantoprazole DR 40 mg Tablet PO (09:38)
--- NOTE | 2021-05-07 10:31 | P.PN_ITS ---
Subjective Subjective: No issues overnight. No chest pain. No bleeding. Medications: Reviewed: Yes Vitals/I&O/Wt Last Vital Signs Temp 97.3 F L 05/06/21 20:06 Pulse 80 05/07/21 06:00 Resp 16 05/07/21 06:00 BP 90/50 05/07/21 06:00 Pulse Ox 92 05/07/21 06:00 05/06/21 05/07/21 05/07/21 22:59 06:59 14:59 Intake Total 240 / 240 Balance 240 / 240 Physical Exam Narrative: General exam no distress Neck is supple without thyromegaly Cardiovascular regular in rhythm without murmur Lungs clear no wheezing or crackles Abdomen soft nontender positive bowel sounds Extremities no cyanosis clubbing or edema Data : 05/07/21 07:04 05/06/21 09:09 A&P Assessment and plan (1) Hypotension: Blood pressure stable currently although a little on the lower side for the patient. Hold Aldactone and spironolactone for now. We will try to restart when blood pressure improves Check cbc, cmp Manual blood pressure check Orthostatics Slow with position changes Morning medications held including coreg and aldactone as well as suboxone and clonazepam Status: Acute (2) Heel sore: Right heel, cracked skin, mild softness despite callous, possible discoloration, tender Optifoam and daily visual checks Status: Acute (3) Non-ischemic cardiomyopathy: Echo 02/13/21 with EF 30-35% Myocardial perfusion scan 02/17/21 nl EF, no ischemia Status: Chronic (4) Pulmonary embolism: Right sided, upper and middle lobes, described as tiny in report dated 02/13/21 Venous duplex will be obtained. This was not obtained initially. If no DVT is noted, reduce Eliquis dose to 2.5 mg twice daily Check INR tomorrow. I suspect lab error in regards to laboratory May 06. Status: Chronic Qualifiers: Pulmonary embolism type: other Chronicity: chronic Acute cor pulmonale presence: without acute cor pulmonale Qualified Code(s): I27.82 - Chronic pulmonary embolism (5) Chronic anticoagulation: On eliquis, resumed 04/19/21 Status: Chronic (6) Suicide attempt by drug overdose: Reported ingestion of eliquis, thorazine, corvedilol, lunesta, vistaril and clinazepam prior to admission High potential for life threatening consequences Transferred to NPU after stabilzation Status: Acute (7) Cardiogenic shock: Present at admission, related to overdose and comorbid conditions, statbilized in ICU, resolved Status: Resolved Plan Thank you for consult We will continue to follow with you at this point. 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
--- NOTE | 2021-05-07 10:42 | P.NPUPN_ITS ---
Subjective NPU Subjective: Interval history: He says that he is doing better. He denies any suicidal ideation recently. He wants to go home. He understands why we are concerned about that and the need to keep him safe. 2 times ago he was admitted it was because of a overdose on Imodium. Just securing his different medication is not good enough. We are continuing to work on placement but that has been difficult. His guardianship hearing has not yet been set. He said that his medications were supposed to be restarted yesterday but his Suboxone is still at only 4 mg. He would like that increased back up to 80 mg as it was previously. Mental Status Exam MSE Comments: This is an overweight white male in hospital scrubs with limited grooming but good eye contact. No abnormal movements. mild psychomotor retardation. Cooperative with exam in no acute distress.? Speech was normal rate and volume.? Mood described as okay, but bored, affect slightly subdued.? Thought process organized. Thought content: Patient denied suicidal or homicidal ideation,? no delusions reported or noted, he is denying auditory or visual hallucinations reported.? Attention and concentration were intact and memory was more reliable but none were formally tested.? He is alert and oriented x3.? Insight and judgment are limited, impulse control is limited. Cognition: Patient Appearance: Appropriate Level of Consciousness: Awake and Alert Patient Cognition Impaired: No Ability to Follow Directions: Good Patient Orientation (long list): Person, Place, Time, Name, Age, Birthday and Year Comprehension Ability: No Impairment Hallucination Type: None Delusion Description: Not Present Thought Process: Appropriate Affect: Affect Description: Appropriate Depressive Symptoms: Feelings of Worthlessness and Unhappiness Behavior: Patient Behavior: Appropriate Speech Pattern: Appropriate Vitals/I&O/Wt Last Vital Signs Temp 97.3 F L 05/06/21 20:06 Pulse 80 05/07/21 06:00 Resp 16 05/07/21 06:00 BP 90/50 05/07/21 06:00 Pulse Ox 92 05/07/21 06:00 05/06/21 05/07/21 05/07/21 22:59 06:59 14:59 Intake Total 240 / 240 Balance 240 / 240 Data NPU : 05/07/21 07:04 05/06/21 09:09 A&P Assessment and plan (1) Heel sore: Status: Acute (2) Hypotension: Status: Acute (3) Chronic anticoagulation: Status: Chronic (4) Pulmonary embolism: Status: Chronic Qualifiers: Pulmonary embolism type: other Chronicity: chronic Acute cor pulmonale presence: without acute cor pulmonale Qualified Code(s): I27.82 - Chronic pulmonary embolism (5) Intentional drug overdose: Status: Acute (6) Schizophrenia: Status: Chronic Qualifiers: Schizophrenia type: unspecified Qualified Code(s): F20.9 - Schizophrenia, unspecified (7) Opiate misuse: Status: Chronic (8) Suicide attempt by drug overdose: Status: Acute (9) Psychosis: Status: Chronic (10) Cluster B personality disorder: Status: Chronic (11) Bipolar depression: Status: Chronic Plan This is a 36-year-old male with schizophrenia with multiple suicide attempts recently.? The lethality of these attempts continues to increase. 1.?Continue current medication trazodone 100 mg, Latuda 80 mg and Suboxone 8-2 once daily and Thorazine to 250 mg.? We will give Ambien 10 mg p.o. nightly tonight and work to get his Lunesta prescription here since we do not have it in the pharmacy. 2.? Continue every 15 minute checks for safety. 3.? Encourage individual, group and milieu therapies. 4.? Encourage sober living treatment after discharge at the highest level of care to which he is willing to commit. 5.?Significant concerns about lethality exist when he is managing his own medication. We continue to explore residential settings that would assist in his safety outside the hospital. 6.? Filed for guardianship given the great concern over safety at discharge.? However we still may have to face the fact that no one will want to take him so we will also look at other safety options we can put in place. 7. Blood pressures have been running low. Consult hospitalist and labs were ordered and few medications were put on hold. Will await recommendations and follow as indicated. Involuntary Hold Information 96 Hour Hold: 96 Hour Involuntary Admission: No Attestations NPU Medical Necessity Statement*: Inpatient hospitalization is medically necessary and the clinically appropriate intervention at this time. We will initiate medications and make changes as indicated. 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
--- NOTE | 2021-05-07 12:37 | NPU.GN ---
[facility] Group Topic:Symptoms/ Judgment Boat Activity General Mood of Group: Shayan did attend and participate in group today. Hygiene was ok. He left in the middle of group.
[2021-05-07] MEDS: hyDROXYzine 25 mg Capsule 50 MG PO (13:56)
[2021-05-07 14:06] VITALS: BP 117/79; PULSE 79; RESP 18; TEMP 36.5; O2SAT 90
[2021-05-07] MEDS: lurasidone 80 mg Tablet PO (17:06)
[2021-05-07] MEDS: haloperidol 5 mg Tablet PO (17:06)
[2021-05-07] MEDS: zolpidem 5 mg Tablet 10 MG PO (21:06)
[2021-05-07] MEDS: apixaban 5 mg Tablet 2.5 MG PO (21:10)
[2021-05-07] MEDS: chlorPROMazine 50 mg Tablet 250 MG PO (21:10)
[2021-05-07 21:49] VITALS: BP 98/64; PULSE 118; RESP 16; TEMP 36.4; O2SAT 98
--- NOTE | 2021-05-08 00:02 | PC.NURSE ---
2106 ambien 10 given po for sleep. It was effective.
[2021-05-08 05:59] VITALS: BP 94/53; PULSE 71; RESP 16; O2SAT 93
[2021-05-08] MEDS: apixaban 5 mg Tablet 2.5 MG PO (09:32)
[2021-05-08] MEDS: nicotine 2 mg Gum BUCCAL ×5 (09:32→20:18)
[2021-05-08] MEDS: CLONazepam 0.5 mg Tablet PO ×2 (09:32→12:38)
[2021-05-08] MEDS: aspirin 81 mg EC Tablet PO (09:32)
[2021-05-08] MEDS: pantoprazole DR 40 mg Tablet PO (09:32)
[2021-05-08] MEDS: buprenorphine-naloxone 4-1 mg Film 2 EACH SUBLINGUAL (09:33)
[2021-05-08 09:36] LABS: Basophils % 0.4 %; Eosinophils # 0.7 10^3/uL (0.0-0.8); Eosinophils % 12.1 %; Hematocrit 35.5 % (42.0-52.0); Hemoglobin 11.7 g/dL (11.7-16.6); Lymphocytes # 1.7 10^3/uL (0.8-4.8); Lymphocytes % 30.4 %; Mean Corpuscular Volume 84.9 fl (80-94); Mean Platelet Volume 9.9 fL (7.4-10.4); Monocytes # 0.6 10^3/uL (0.2-0.9); Monocytes % 10.7 %; Neutrophils # 2.64 10^3/uL (1.8-7.7); Neutrophils % 46.2 %; Nucleated Red Blood Cells % 0 %; Platelet Count 240 10^3/cmm (130-400); Red Blood Count 4.18 10^6/uL (4.1-5.3); Red Cell Distribution Width 13.1 % (12.1-15.1); White Blood Count 5.7 10^3/uL (4.0-10.0)
[2021-05-08 09:48] LABS: INR 0.93 (0.8-1.2)
[2021-05-08 10:02] LABS: Alanine Aminotransferase 36 U/L (0-41); Alkaline Phosphatase 78 IU/L (40-130); Anion Gap 13.4 (5-19); Aspartate Amino Transferase 27 U/L (0-40); Blood Urea Nitrogen 20 mg/dL (6-20); Calcium 8.5 mg/dL (8.5-10.5); Carbon Dioxide 28 mmol/L (22-29); Chloride 102 mmol/L (98-107); Globulin 2.2 g/dL (1.3-4.6); Glucose 104 mg/dL (65-115); Osmolality Calculated 291 mOsm/kg (285-295); Potassium 4.4 mmol/L (3.5-5.1); Sodium 139 mmol/L (136-145); Total Bilirubin 0.2 mg/dL (0.15-1.2); Total Protein 6.2 g/dL (6.6-8.7)
--- NOTE | 2021-05-08 11:30 | W.PM.EVENTAC ---
Event Note Event Note: Laboratory without concern currently. Will sign off. Will increase Eliquis to 5 mg twice daily.
--- NOTE | 2021-05-08 12:33 | W.PM.NPUPNS ---
Subjective NPU Subjective: Interval history: He said that he is doing well. He said that he really wants to go home and not wait until the guardianship hearing. He was told that we had a discussion in team and decided that it was not safe because of his very significant suicide attempts that happened very soon after release from the hospital on a regular basis. He asked about increasing the Thorazine to 300 mg as he and i discussed 3 weeks ago. He says that the voices are not there at a very low level and he can ignore them. I reminded him that he said before that it might be best for them never to go away completely so that he is not so surprised and discouraged when they come back. He agreed that it would be best to leave the Thorazine at this level for now. He also has Latuda 80 mg that should be helping. He continues to feel that that has been very helpful for his mood. He was still quite unhappy that we were going to keep him until his guardianship hearing. Mental Status Exam MSE Comments: This is an overweight white male in hospital scrubs with limited grooming but good eye contact. No abnormal movements. mild psychomotor retardation. Cooperative with exam in no acute distress.? Speech was normal rate and volume.? Mood described as okay, but depressed because he has been here so long, affect slightly subdued.? Thought process organized. Thought content: Patient denied suicidal or homicidal ideation,? no delusions reported or noted, he reports very mild auditory hallucinations but no visual hallucinations reported.? Attention and concentration were intact and memory was more reliable but none were formally tested.? He is alert and oriented x3.? Insight and judgment are limited, impulse control is limited. Cognition: Patient Appearance: Appropriate Level of Consciousness: Awake and Alert Patient Cognition Impaired: No Ability to Follow Directions: Good Patient Orientation (long list): Person, Place, Time, Name, Age, Birthday and Year Comprehension Ability: No Impairment Hallucination Type: None Delusion Description: Not Present Thought Process: Appropriate Affect: Affect Description: Calm Depressive Symptoms: Feelings of Worthlessness and Unhappiness Behavior: Patient Behavior: Cooperative Speech Pattern: Clear Vitals/I&O/Wt Last Vital Signs Temp 97.6 F 05/07/21 21:49 Pulse 71 05/08/21 05:59 Resp 16 05/08/21 05:59 BP 94/53 05/08/21 05:59 Pulse Ox 93 05/08/21 05:59 Data NPU : 05/08/21 09:21 05/08/21 09:21 A&P Assessment and plan (1) Heel sore: Status: Acute (2) Hypotension: Status: Acute (3) Chronic anticoagulation: Status: Chronic (4) Pulmonary embolism: Status: Chronic Qualifiers: Pulmonary embolism type: other Chronicity: chronic Acute cor pulmonale presence: without acute cor pulmonale Qualified Code(s): I27.82 - Chronic pulmonary embolism (5) Intentional drug overdose: Status: Acute (6) Schizophrenia: Status: Chronic Qualifiers: Schizophrenia type: unspecified Qualified Code(s): F20.9 - Schizophrenia, unspecified (7) Opiate misuse: Status: Chronic (8) Suicide attempt by drug overdose: Status: Acute (9) Psychosis: Status: Chronic (10) Cluster B personality disorder: Status: Chronic (11) Bipolar depression: Status: Chronic Plan This is a 36-year-old male with schizophrenia with multiple suicide attempts recently.? The lethality of these attempts continues to increase. 1.?Continue current medication trazodone 100 mg, Latuda 80 mg and Suboxone 8-2 once daily and Thorazine to 250 mg.? We will give Ambien 10 mg p.o. nightly. 2.? Continue every 15 minute checks for safety. 3.? Encourage individual, group and milieu therapies. 4.? Encourage sober living treatment after discharge at the highest level of care to which he is willing to commit. 5.?Significant concerns about lethality exist when he is managing his own medication. We continue to explore residential settings that would assist in his safety outside the hospital. 6.? Filed for guardianship given the great concern over safety at discharge.? However we still may have to face the fact that no one will want to take him so we will also look at other safety options we can put in place. 7. Blood pressures have been running low. Consult hospitalist and labs were ordered and few medications were put on hold. Will await recommendations and follow as indicated. Involuntary Hold Information 96 Hour Hold: 96 Hour Involuntary Admission: No Attestations NPU Medical Necessity Statement*: Inpatient hospitalization is medically necessary and the clinically appropriate intervention at this time. We will initiate medications and make changes as indicated. 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
[2021-05-08] MEDS: hyDROXYzine 25 mg Capsule 50 MG PO ×2 (13:59→21:28)
[2021-05-08 14:00] VITALS: BP 115/75; PULSE 78; RESP 16; TEMP 36.6; O2SAT 93
[2021-05-08] MEDS: haloperidol 5 mg Tablet PO (16:27)
[2021-05-08] MEDS: lurasidone 80 mg Tablet PO (16:27)
[2021-05-08 19:45] VITALS: BP 94/57; PULSE 75; RESP 17; TEMP 36.7; O2SAT 96
[2021-05-08] MEDS: zolpidem 5 mg Tablet 10 MG PO (20:15)
[2021-05-08] MEDS: apixaban 5 mg Tablet PO (20:17)
[2021-05-08] MEDS: trazodone 100 mg Tablet PO (20:18)
[2021-05-08] MEDS: chlorPROMazine 50 mg Tablet 250 MG PO (20:18)
--- NOTE | 2021-05-08 23:21 | PC.NURSE ---
2017-Rec'd ambien and trazodone for sleep. 2117- He is still awake. 2158-requested vistaril for anxiety. 2258-He is resting in bed with eyes closed.
[2021-05-09 06:00] VITALS: BP 92/66; PULSE 60; RESP 16; TEMP 36.5; O2SAT 96
[2021-05-09] MEDS: buprenorphine-naloxone 4-1 mg Film 2 EACH SUBLINGUAL (09:21)
[2021-05-09] MEDS: CLONazepam 0.5 mg Tablet PO ×2 (09:21→12:10)
[2021-05-09] MEDS: pantoprazole DR 40 mg Tablet PO (09:21)
[2021-05-09] MEDS: docusate sodium 100 mg Capsule 200 MG PO (09:21)
[2021-05-09] MEDS: nicotine 2 mg Gum BUCCAL ×6 (09:21→20:20)
[2021-05-09] MEDS: aspirin 81 mg EC Tablet PO (09:21)
[2021-05-09] MEDS: apixaban 5 mg Tablet PO ×2 (09:21→20:20)
[2021-05-09] MEDS: hyDROXYzine 25 mg Capsule 50 MG PO ×2 (13:25→21:55)
--- NOTE | 2021-05-09 13:50 | W.PM.NPUPNS ---
Subjective NPU Subjective: Interval history: He says that the voices continued to be. He feels that is the best way for him to be. He gets anxious and restless in the evening. He evidently told the nurses that he wanted to take more Suboxone at that time. I did not note that at the time of my interview and suggested some Thorazine and he agreed Mental Status Exam MSE Comments: This is an overweight white male in hospital scrubs with limited grooming but good eye contact. No abnormal movements. mild psychomotor retardation. Cooperative with exam in no acute distress.? Speech was normal rate and volume.? Mood described as okay, but depressed because he has been here so long, affect slightly subdued.? Thought process organized. Thought content: Patient denied suicidal or homicidal ideation,? no delusions reported or noted, he reports very mild auditory hallucinations but no visual hallucinations reported.? Attention and concentration were intact and memory was more reliable but none were formally tested.? He is alert and oriented x3.? Insight and judgment are limited, impulse control is limited. Cognition: Patient Appearance: Appropriate Level of Consciousness: Awake and Alert Patient Cognition Impaired: No Ability to Follow Directions: Good Patient Orientation (long list): Person, Place, Time, Name, Age, Birthday and Year Comprehension Ability: No Impairment Hallucination Type: None Delusion Description: Not Present Thought Process: Appropriate Affect: Affect Description: Appropriate and Calm Depressive Symptoms: Feelings of Worthlessness and Unhappiness Behavior: Patient Behavior: Appropriate and Cooperative Speech Pattern: Appropriate and Clear Vitals/I&O/Wt Last Vital Signs Temp 97.7 F 05/09/21 06:00 Pulse 60 05/09/21 06:00 Resp 16 05/09/21 06:00 BP 92/66 05/09/21 06:00 Pulse Ox 96 05/09/21 06:00 Data NPU : 05/08/21 09:21 05/08/21 09:21 A&P Assessment and plan (1) Heel sore: Status: Acute (2) Hypotension: Status: Acute (3) Chronic anticoagulation: Status: Chronic (4) Pulmonary embolism: Status: Chronic Qualifiers: Pulmonary embolism type: other Chronicity: chronic Acute cor pulmonale presence: without acute cor pulmonale Qualified Code(s): I27.82 - Chronic pulmonary embolism (5) Intentional drug overdose: Status: Acute (6) Schizophrenia: Status: Chronic Qualifiers: Schizophrenia type: unspecified Qualified Code(s): F20.9 - Schizophrenia, unspecified (7) Opiate misuse: Status: Chronic (8) Suicide attempt by drug overdose: Status: Acute (9) Psychosis: Status: Chronic (10) Cluster B personality disorder: Status: Chronic (11) Bipolar depression: Status: Chronic Plan This is a 36-year-old male with schizophrenia with multiple suicide attempts recently.? The lethality of these attempts continues to increase. 1.?Continue current medication trazodone 100 mg, Latuda 80 mg and Suboxone 8-2 once daily and Thorazine to 250 mg.?Ambien 10 mg p.o. qHS PRN. Thorazine 50 mg Q4H PRN. 2.? Continue every 15 minute checks for safety. 3.? Encourage individual, group and milieu therapies. 4.? Encourage sober living treatment after discharge at the highest level of care to which he is willing to commit. 5.?Significant concerns about lethality exist when he is managing his own medication. We continue to explore residential settings that would assist in his safety outside the hospital. 6.? Filed for guardianship given the great concern over safety at discharge.? However we still may have to face the fact that no one will want to take him so we will also look at other safety options we can put in place. 7. Blood pressures have been running low. Consult hospitalist and labs were ordered and few medications were put on hold. Will await recommendations and follow as indicated. Involuntary Hold Information 96 Hour Hold: 96 Hour Involuntary Admission: No Attestations NPU Medical Necessity Statement*: Inpatient hospitalization is medically necessary and the clinically appropriate intervention at this time. We will initiate medications and make changes as indicated. Coding Level of Care Code Acute Lead Oracle Developer for g Fwd Diagnoses Heel sore L98.9 Hypotension I95.9 Chronic anticoagulation Z79.01 Pulmonary embolism I27.82 Pulmonary embolism type: other Chronicity: chronic Acute cor pulmonale presence: without acute cor pulmonale Intentional drug overdose T50.902A Schizophrenia F20.9 Schizophrenia type: unspecified Opiate misuse F11.90 Suicide attempt by drug overdose T50.902A Psychosis F29 Cluster B personality disorder F60.89 Bipolar depression F31.9
[2021-05-09 14:00] VITALS: BP 93/60; PULSE 117; RESP 16; TEMP 36.6; O2SAT 95
[2021-05-09] MEDS: lurasidone 80 mg Tablet PO (16:53)
[2021-05-09] MEDS: chlorPROMazine 50 mg Tablet PO (16:56)
[2021-05-09] MEDS: haloperidol 5 mg Tablet PO (18:26)
[2021-05-09] MEDS: trazodone 100 mg Tablet PO (20:19)
[2021-05-09] MEDS: zolpidem 5 mg Tablet 10 MG PO (20:20)
[2021-05-09] MEDS: chlorPROMazine 50 mg Tablet 250 MG PO (20:21)
[2021-05-09 21:11] VITALS: BP 89/48; PULSE 81; RESP 16; O2SAT 98
--- NOTE | 2021-05-09 22:23 | PC.NURSE ---
2019-rec'd ramona and geovanna for sleep. 2119-still awake.
--- NOTE | 2021-05-09 23:14 | PC.NURSE ---
2154- Requested vistaril for anxiety. 2254-He resting in bed with eyes closed.
[2021-05-10 04:07] VITALS: BMI 29.7
[2021-05-10] MEDS: pantoprazole DR 40 mg Tablet PO (09:46)
[2021-05-10] MEDS: aspirin 81 mg EC Tablet PO (09:46)
[2021-05-10] MEDS: nicotine 2 mg Gum BUCCAL ×5 (09:46→20:23)
[2021-05-10] MEDS: apixaban 5 mg Tablet PO ×2 (09:46→20:24)
[2021-05-10] MEDS: CLONazepam 0.5 mg Tablet PO ×2 (09:46→12:36)
[2021-05-10] MEDS: chlorPROMazine 50 mg Tablet PO ×2 (09:46→18:10)
[2021-05-10] MEDS: buprenorphine-naloxone 4-1 mg Film 2 EACH SUBLINGUAL (09:46)
--- NOTE | 2021-05-10 10:26 | P.NPUPN_ITS ---
Subjective NPU Subjective: Interval history: He said that the Thorazine 50 mg as needed last night was helpful. He said that Thorazine has never been sedating but it does help. The voices continue at the lower level as they have been. He denies any suicidal ideation. He would like to increase the Suboxone back to 8-2 twice a day as it was previously. He was supposed to make arrangements for outpatient treatment after he left previously and was encouraged to do that and talk with his provider about increasing the dose. Mental Status Exam MSE Comments: This is an overweight white male in hospital scrubs with limited grooming but good eye contact. No abnormal movements. mild psychomotor retardation. Cooperative with exam in no acute distress.? Speech was normal rate and volume.? Mood described as okay, but depressed because he has been here so long, affect slightly subdued.? Thought process organized. Thought content: Patient denied suicidal or homicidal ideation,? no delusions reported or noted, he reports very mild auditory hallucinations but no visual hallucinations reported.? Attention and concentration were intact and memory was more reliable but none were formally tested.? He is alert and oriented x3.? Insight and judgment are limited, impulse control is limited. Cognition: Patient Appearance: Appropriate Level of Consciousness: Awake and Alert Patient Cognition Impaired: No Ability to Follow Directions: Good Patient Orientation (long list): Person, Place, Time, Name, Age, Birthday and Year Comprehension Ability: No Impairment Hallucination Type: None Delusion Description: Not Present Thought Process: Appropriate Affect: Affect Description: Appropriate and Calm Depressive Symptoms: Feelings of Worthlessness and Unhappiness Behavior: Patient Behavior: Appropriate and Cooperative Speech Pattern: Appropriate and Clear Vitals/I&O/Wt Last Vital Signs Temp 97.9 F 05/09/21 14:00 Pulse 81 05/09/21 21:11 Resp 16 05/09/21 21:11 BP 89/48 05/09/21 21:11 Pulse Ox 98 05/09/21 21:11 Weight last 48 hrs Weight 96.706 kg Data NPU : 05/08/21 09:21 05/08/21 09:21 A&P Assessment and plan (1) Heel sore: Status: Acute (2) Hypotension: Status: Acute (3) Chronic anticoagulation: Status: Chronic (4) Pulmonary embolism: Status: Chronic Qualifiers: Pulmonary embolism type: other Chronicity: chronic Acute cor pulmonale presence: without acute cor pulmonale Qualified Code(s): I27.82 - Chronic pulmonary embolism (5) Intentional drug overdose: Status: Acute (6) Schizophrenia: Status: Chronic Qualifiers: Schizophrenia type: unspecified Qualified Code(s): F20.9 - Schizophrenia, unspecified (7) Opiate misuse: Status: Chronic (8) Suicide attempt by drug overdose: Status: Acute (9) Psychosis: Status: Chronic (10) Cluster B personality disorder: Status: Chronic (11) Bipolar depression: Status: Chronic Plan This is a 36-year-old male with schizophrenia with multiple suicide attempts recently.? The lethality of these attempts continues to increase. 1.?Continue current medication trazodone 100 mg, Latuda 80 mg and Suboxone 8-2 once daily and Thorazine to 250 mg.?Ambien 10 mg p.o. qHS PRN. Thorazine 50 mg Q4H PRN. 2.? Continue every 15 minute checks for safety. 3.? Encourage individual, group and milieu therapies. 4.? Encourage sober living treatment after discharge at the highest level of care to which he is willing to commit. 5.?Significant concerns about lethality exist when he is managing his own medication. We continue to explore residential settings that would assist in his safety outside the hospital. 6.? Filed for guardianship given the great concern over safety at discharge.? However we still may have to face the fact that no one will want to take him so we will also look at other safety options we can put in place. Involuntary Hold Information 96 Hour Hold: 96 Hour Involuntary Admission: No Attestations NPU Medical Necessity Statement*: Inpatient hospitalization is medically necessary and the clinically appropriate intervention at this time. We will initiate medications and make changes as indicated. Coding Level of Care Code Acute Mud Jack Operator for [facility] Fwd Diagnoses Heel sore L98.9 Hypotension I95.9 Chronic anticoagulation Z79.01 Pulmonary embolism I27.82 Pulmonary embolism type: other Chronicity: chronic Acute cor pulmonale presence: without acute cor pulmonale Intentional drug overdose T50.902A Schizophrenia F20.9 Schizophrenia type: unspecified Opiate misuse F11.90 Suicide attempt by drug overdose T50.902A Psychosis F29 Cluster B personality disorder F60.89 Bipolar depression F31.9
[2021-05-10 14:00] VITALS: BP 118/82; PULSE 67; RESP 18; TEMP 36.8; O2SAT 99
[2021-05-10] MEDS: hyDROXYzine 25 mg Capsule 50 MG PO ×2 (14:11→20:23)
[2021-05-10] MEDS: acetaminophen 325 mg Tablet 650 MG PO (15:06)
[2021-05-10] MEDS: haloperidol 5 mg Tablet PO (16:32)
[2021-05-10] MEDS: lurasidone 80 mg Tablet PO (16:32)
[2021-05-10] MEDS: zolpidem 5 mg Tablet 10 MG PO (20:24)
[2021-05-10] MEDS: trazodone 100 mg Tablet PO (20:24)
[2021-05-10] MEDS: chlorPROMazine 50 mg Tablet 250 MG PO (20:24)
[2021-05-10 21:28] VITALS: BP 117/77; PULSE 73; RESP 15; TEMP 37.1; O2SAT 97
--- NOTE | 2021-05-10 21:52 | PC.NURSE ---
pt voiced the another pt was really getting on his nerves, Vistaril given for increased anxiety.
[2021-05-11 06:00] VITALS: BP 107/62; PULSE 86; RESP 17; TEMP 36.7; O2SAT 99
[2021-05-11] MEDS: buprenorphine-naloxone 4-1 mg Film 2 EACH SUBLINGUAL (10:08)
[2021-05-11] MEDS: CLONazepam 0.5 mg Tablet PO ×2 (10:08→12:12)
[2021-05-11] MEDS: pantoprazole DR 40 mg Tablet PO (10:09)
[2021-05-11] MEDS: nicotine 2 mg Gum BUCCAL ×3 (10:09→20:37)
[2021-05-11] MEDS: apixaban 5 mg Tablet PO ×2 (10:09→20:37)
[2021-05-11] MEDS: aspirin 81 mg EC Tablet PO (10:09)
[2021-05-11 11:14] VITALS: BP 117/77; PULSE 91; RESP 18; TEMP 36.7; O2SAT 95
--- NOTE | 2021-05-11 11:42 | NPU.GN ---
[facility] Topic: Hai Mary General Mood of Group: Shayan did not attend group.
[2021-05-11 13:38] LABS: INR 1.01 (0.8-1.2)
[2021-05-11] MEDS: chlorPROMazine 50 mg Tablet PO (13:44)
[2021-05-11] MEDS: hyDROXYzine 25 mg Capsule 50 MG PO ×2 (13:44→20:37)
[2021-05-11 14:00] VITALS: BP 108/73; PULSE 109; RESP 18; TEMP 36.3; O2SAT 96
[2021-05-11] MEDS: lurasidone 80 mg Tablet PO (16:09)
[2021-05-11] MEDS: haloperidol 5 mg Tablet PO (16:09)
--- NOTE | 2021-05-11 16:40 | P.NPUPN_ITS ---
Subjective NPU Subjective: Interval history: He says that he cannot report because he felt that his guardianship hearing is on May 21. Wants to go home for a while before the guardianship hearing until he goes to the [facility]. He says that his uncle also wants him to go home. He again said that they have a machine to keep the medication safe. He asked why other patients have been allowed to go home and was reminded again that he has made many very serious suicide attempts. Mental Status Exam MSE Comments: This is an overweight white male in hospital scrubs with limited grooming but good eye contact. No abnormal movements. mild psychomotor retardation. Cooperative with exam in no acute distress.? Speech was normal rate and volume.? Mood described as okay, but depressed because he has been here so long, affect slightly subdued.? Thought process organized. Thought content: Patient denied suicidal or homicidal ideation,? no delusions reported or noted, he reports very mild auditory hallucinations but no visual hallucinations reported.? Attention and concentration were intact and memory was more reliable but none were formally tested.? He is alert and oriented x3.? Insight and judg ment are limited, impulse control is limited. Cognition: Patient Appearance: Appropriate Level of Consciousness: Awake and Alert Patient Cognition Impaired: No Ability to Follow Directions: Good Patient Orientation (long list): Person, Place, Time, Name, Age, Birthday and Year Comprehension Ability: No Impairment Hallucination Type: None Delusion Description: Not Present Thought Process: Appropriate Affect: Affect Description: Appropriate Depressive Symptoms: Feelings of Worthlessness and Unhappiness Behavior: Patient Behavior: Appropriate Speech Pattern: Appropriate Vitals/I&O/Wt Last Vital Signs Temp 98.0 F 05/12/21 06:00 Pulse 83 05/12/21 06:00 Resp 16 05/12/21 06:00 BP 91/54 05/12/21 06:00 Pulse Ox 92 05/12/21 06:00 Data NPU : 05/11/21 08:55 05/08/21 09:21 A&P Assessment and plan (1) Heel sore: Status: Acute (2) Hypotension: Status: Acute (3) Chronic anticoagulation: Status: Chronic (4) Pulmonary embolism: Status: Chronic Qualifiers: Pulmonary embolism type: other Chronicity: chronic Acute cor pulmonale presence: without acute cor pulmonale Qualified Code(s): I27.82 - Chronic pulmonary embolism (5) Intentional drug overdose: Status: Acute (6) Schizophrenia: Status: Chronic Qualifiers: Schizophrenia type: unspecified Qualified Code(s): F20.9 - Schi zophrenia, unspecified (7) Opiate misuse: Status: Chronic (8) Suicide attempt by drug overdose: Status: Acute (9) Psychosis: Status: Chronic (10) Cluster B personality disorder: Status: Chronic (11) Bipolar depression: Status: Chronic Plan This is a 36-year-old male with schizophrenia with multiple suicide attempts recently.? The lethality of these attempts continues to increase. 1.?Continue current medication trazodone 100 mg, Latuda 80 mg and Suboxone 8-2 once daily and Thorazine to 250 mg.?Ambien 10 mg p.o. qHS PRN. Thorazine 50 mg Q4H PRN. 2.? Continue every 15 minute checks for safety. 3.? Encourage individual, group and milieu therapies. 4.? Encourage sober living treatment after discharge at the highest level of care to which he is willing to commit. 5.?Significant concerns about lethality exist when he is managing his own medication. We continue to explore residential settings that would assist in his safety outside the hospital. 6.? Filed for guardianship given the great concern over safety at discharge.? We will talk with the team about discharge possibly in 2 or 3 days. Involuntary Hold Information 96 Hour Hold: 96 Hour Involuntary Admission: No Attestations NPU Medical Necessity Statement*: Inpatient hospitalization is medically necessary and the clinically appropriate intervention at this time. We will initiate medications and make changes as indicated. Coding Level of Care Code Acute Manager Nuclear for [facility] Fwd Diagnoses Heel sore L98.9 Hypotension I95.9 Chronic anticoagulation Z79.01 Pulmonary embolism I27.82 Pulmonary embolism type: other Chronicity: chronic Acute cor pulmonale presence: without acute cor pulmonale Intentional drug overdose T50.902A Schizophrenia F20.9 Schizophrenia type: unspecified Opiate misuse F11.90 Suicide attempt by drug overdose T50.902A Psychosis F29 Cluster B personality disorder F60.89 Bipolar depression F31.9
--- NOTE | 2021-05-11 18:56 | P.PN_ITS ---
Subjective Subjective: Patient complains of abdominal pain starting after bowel movement today. Reports having bowel movement was painful but not able to describe further. If had to localize was more in the right lower quadrant at worst. Says stool was black. Denies stool being hard or liquid. No bright red blood. Reports that he intermittently has black stools and similar symptoms at home. On eliquis. Pain per nurses was severe earlier today. Throughout the day patient has been walking around, pain still there but lessened. TOlerating oral intake. No vomiting. No further bowel movements today. Medications: Medication Review Details: On eliquis, increased chloropromazine that at home Has loperamide on prn list but not had any Vitals/I&O/Wt Last Vital Signs Temp 97.3 F L 05/11/21 14:00 Pulse 109 H 05/11/21 14:00 Resp 18 05/11/21 14:00 BP 108/73 05/11/21 14:00 Pulse Ox 96 05/11/21 14:00 Weight last 48 hrs Weight 96.706 kg Physical Exam Const: COMMON NORMALS: no acute distress, patient oriented x3 and alert GENERAL APPEARANCE: cooperative HENMT: COMMON NORMALS: moist oral mucous membranes NOSE: no Epistaxis present Eye: COMMON NORMALS: EOMs intact bilaterally Neck/C-Spine: COMMON NORMALS: supple Resp: COMMON NORMALS: clear to auscultation bilaterally AUSCULTATION: clear to auscultation bilaterally Cardio: COMMON NORMALS: regular rate and regular rhythm RATE: regular rate RHYTHM: regular rhythm GI: COMMON NORMALS: Soft to palpation INSPECTION: Yes normal to inspection AUSCULTATION: Yes normoactive bowel sounds PALPATION: Yes Soft to palpation, Yes Tenderness to palpation present (GI) Details: LLQ, RLQ (Most pro minent area of pain), LUQ, RUQ and other (Epigastrium), No Guarding due to palpation present (GI) and No Rebound tenderness present RECTAL EXAM: Yes deferred : COMMON NORMALS: No no CVA tenderness BLADDER/KIDNEY EXAM: No no CVA tenderness Back/Pelvis: COMMON NORMALS: negative for no CVA tenderness Extremity: GENERAL: No edema Neuro: COMMON NORMALS: patient oriented x3 SENSORIUM/ORIENTATION: Yes alert SPEECH: speech normal MOTOR EXAM: Other motor observations present (Moves all extremities) Data : 05/08/21 09:21 05/08/21 09:21 A&P Assessment and plan (1) Abdominal pain: Generalized but most pronounced per patient in the right lower quadrant. Associated with melena by his report. He is on chronic anticoagulation. On reviewing medications, he has had increase in his chlorpromazine dosing while here which can contribute to constipation. He has some as needed medications that can contribute but has not had them. No gross bleeding noted. Follow-up pending CBC, I discussed with lab as test was ordered earlier today but not yet done Low up pending stool Hemoccult Coags are unreliable markers and the patient on direct oral anticoagulant such as Eliquis We will add scheduled stool softener rather than just as needed Add as needed simethicone Monitor for change in symptoms On a PPI Okay to continue Eliquis presently along with other medications We will follow along for couple of days to ensure no changes Status: Acute Qualifiers: Abdominal location: generalized Qualified Code(s): R10.84 - Generalized abdominal pain (2) Melena: Reported by patient Same as above Status: Acute (3) Chronic anticoagulation: Status: Chronic (4) Pulmonary embolism: Status: Chronic Qualifiers: Acute cor pulmonale presence: without acute cor pulmonale Chronicity: chronic Pulmonary embolism type: other Qualified Code(s): I27.82 - Chronic pulmonary embolism (5) Opiate misuse: Status: Chronic (6) Cluster B personality disorder: Status: Chronic (7) Schizophrenia: Status: Chronic Qualifiers: Schizophrenia type: unspecified Qualified Code(s): F20.9 - Schizophrenia, unspecified Plan Thank you for consultation Attestations Medical Necessity Statement*: As per psychiatry Coding Level of Care Code Acute Mail Superintendent for [facility] 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 Diagnoses Abdominal pain R10.84 Abdominal location: generalized Melena K92.1 Chronic anticoagulation Z79.01 Pulmonary embolism I27.82 Acute cor pulmonale presence: without acute cor pulmonale Chronicity: chronic Pulmonary embolism type: other Opiate misuse F11.90 Cluster B personality disorder F60.89 Schizophrenia F20.9 Schizophrenia type: unspecified
[2021-05-11 20:17] VITALS: BP 101/66; PULSE 77; RESP 18; TEMP 36.4; O2SAT 95
[2021-05-11] MEDS: zolpidem 5 mg Tablet 10 MG PO (20:37)
[2021-05-11] MEDS: trazodone 100 mg Tablet PO (20:37)
[2021-05-11] MEDS: chlorPROMazine 50 mg Tablet 250 MG PO (20:39)
[2021-05-12 06:00] VITALS: BP 91/54; PULSE 83; RESP 16; TEMP 36.7; O2SAT 92
--- NOTE | 2021-05-12 06:50 | ECG_ITS ---
[facility] Test Date: 2021-05-12 Pat Name: Shayan Dickson Department: Room: 125 Gender: Male Manager Sterile: : 1985 Requested By: Lauren Uriarte Order Number: [id number] Krzysztof MD: Wen Nugent M.D. Measurements Intervals [place] Rate: 69 P: 51 WV: 158 QRS: -24 QRSD: 109 T: 56 QT: 450 QTc: 483 Interpretive Statements SINUS RHYTHM BORDERLINE LEFT AXIS DEVIATION [QRS AXIS < -20] PROLONGED QT INTERVAL Compared to ECG 04/18/2021 21:51:04 Prolonged QT interval now present Incomplete right bundle-branch block no longer present Electronically Signed On 05-13-2021 14:49:59 RABBLER by Wen Nugent M.D. [id number]
[2021-05-12] MEDS: pantoprazole DR 40 mg Tablet PO (08:18)
[2021-05-12] MEDS: CLONazepam 0.5 mg Tablet PO ×2 (08:18→12:20)
[2021-05-12] MEDS: aspirin 81 mg EC Tablet PO (08:18)
[2021-05-12] MEDS: nicotine 2 mg Gum BUCCAL ×7 (08:18→20:03)
[2021-05-12] MEDS: buprenorphine-naloxone 4-1 mg Film 2 EACH SUBLINGUAL (08:19)
[2021-05-12] MEDS: apixaban 5 mg Tablet PO ×2 (08:19→20:03)
[2021-05-12 09:05] LABS: Basophils % 0.4 %; Eosinophils # 0.4 10^3/uL (0.0-0.8); Eosinophils % 8.1 %; Hematocrit 36.8 % (42.0-52.0); Hemoglobin 11.6 g/dL (11.7-16.6); Lymphocytes # 1.7 10^3/uL (0.8-4.8); Lymphocytes % 32.7 %; Mean Corpuscular HGB Conc 31.5 g/dL (30.0-36.0); Mean Corpuscular Volume 88.7 fl (80-94); Mean Platelet Volume 10.1 fL (7.4-10.4); Monocytes # 0.6 10^3/uL (0.2-0.9); Monocytes % 11.1 %; Neutrophils # 2.52 10^3/uL (1.8-7.7); Neutrophils % 47.3 %; Nucleated Red Blood Cells % 0 %; Platelet Count 211 10^3/cmm (130-400); Red Blood Count 4.15 10^6/uL (4.1-5.3); Red Cell Distribution Width 13.3 % (12.1-15.1); White Blood Count 5.3 10^3/uL (4.0-10.0)
--- NOTE | 2021-05-12 11:45 | NPU.GN ---
[facility] Topic:Dice Breaker Group Activity General Mood of Group: Shayan did not attend group today. He was sleeping.
[2021-05-12] MEDS: hyDROXYzine 25 mg Capsule 50 MG PO ×2 (12:57→20:44)
--- NOTE | 2021-05-12 13:31 | P.NPUPN_ITS ---
Subjective NPU Subjective: Interval history: He continues to feel that he is ready to go home. He called the [facility] and they said that his hearing was on May 21. I talked with the team and we reluctantly agree that he be released in the next day or 2 when his uncle is ready. We will begin the week of medication at a time and the family will be cautioned to not let him be able to go and buy things a lot at the store. Mental Status Exam MSE Comments: this is a 36-year old overweight male who appears approximately his stated age and is in no acute distress. His grooming is fair he is dressed in hospital scrubs with full hayes. psychomotor activity mildly decreased Speech is at a regular rate and rhythm, normal volume, good articulation, not pressured. Alert, oriented X3 Attention and concentration average. Memory is intact Mood is good but frustrated that he is still here Affect is mildly dysphoric. Thought process is logical and goal-directed. Thought content: Denies mild auditory hallucinations but no visual hallucinations. No delusions or paranoia are noted. No current suicidal ideation, and no homicidal ideation. Fund of knowledge is average. Insight and judgment appear to be improved. Impulse control is improved. Cognition: Patient Appearance: Appropriate Level of Consciousness: Awake and Alert Patient Cognition Impaired: No Ability to Follow Directions: Good Patient Orientation (long list): Person, Place, Time, Name, Age, Birthday and Year Comprehension Ability: No Impairment Hallucination Type: None Delusion Description: Not Present Thought Process: Appropriate Affect: Affect Description: Appropriate Depressive Symptoms: Feelings of Worthlessness and Unhappiness Behavior: Patient Behavior: Appropriate Speech Pattern: Appropriate Vitals/I&O/Wt Last Vital Signs Temp 98.0 F 05/12/21 06:00 Pulse 83 05/12/21 06:00 Resp 16 05/12/21 06:00 BP 91/54 05/12/21 06:00 Pulse Ox 92 05/12/21 06:00 Data NPU : 05/11/21 08:55 05/08/21 09:21 A&P Assessment and plan (1) Heel sore: Status: Acute (2) Hypotension: Status: Acute (3) Chronic anticoagulation: Status: Chronic (4) Pulmonary embolism: Status: Chronic Qualifiers: Pulmonary embolism type: other Chronicity: chronic Acute cor pulmonale presence: without acute cor pulmonale Qualified Code(s): I27.82 - Chronic pulmonary embolism (5) Intentional drug overdose: Status: Acute (6) Schizophrenia: Status: Chronic Qualifiers: Schizophrenia type: unspecified Qualified Code(s): F20.9 - Schizophrenia, unspecified (7) Opiate misuse: Status: Chronic (8) Suicide attempt by drug overdose: Status: Acute (9) Psychosis: Status: Chronic (10) Cluster B personality disorder: Status: Chronic (11) Bipolar depression: Status: Chronic Plan This is a 36-year-old male with schizophrenia with multiple suicide attempts recently.? The lethality of these attempts continues to increase. 1.?Continue current medication trazodone 100 mg, Latuda 80 mg and Suboxone 8-2 once daily and Thorazine to 250 mg.?Ambien 10 mg p.o. qHS PRN.? Thorazine 50 mg Q4H PRN. 2.? Continue every 15 minute checks for safety. 3.? Encourage individual, group and milieu therapies. 4.? Encourage sober living treatment after discharge at the highest level of care to which he is willing to commit. 5.?Significant concerns about lethality exist when he is managing his own medication. We continue to explore residential settings that would assist in his safety outside the hospital. 6.? Filed for guardianship given the great concern over safety at discharge.? We will talk with the team about discharge possibly in 2 or 3 days. Involuntary Hold Information 96 Hour Hold: 96 Hour Involuntary Admission: No Attestations NPU Medical Necessity Statement*: Inpatient hospitalization is medically necessary and the clinically appropriate intervention at this time. We will initiate medications and make changes as indicated. Coding Level of Care Code Acute Multiple Pressure Riveter Operator for g Fwd Diagnoses Heel sore L98.9 Hypotension I95.9 Chronic anticoagulation Z79.01 Pulmonary embolism I27.82 Pulmonary embolism type: other Chronicity: chronic Acute cor pulmonale presence: without acute cor pulmonale Intentional drug overdose T50.902A Schizophrenia F20.9 Schizophrenia type: unspecified Opiate misuse F11.90 Suicide attempt by drug overdose T50.902A Psychosis F29 Cluster B personality disorder F60.89 Bipolar depression F31.9
[2021-05-12] MEDS: chlorPROMazine 50 mg Tablet PO (13:59)
[2021-05-12 14:00] VITALS: BP 131/84; PULSE 83; RESP 17; TEMP 36.8; O2SAT 98
[2021-05-12] MEDS: haloperidol 5 mg Tablet PO (17:14)
[2021-05-12] MEDS: lurasidone 80 mg Tablet PO (17:14)
[2021-05-12] MEDS: trazodone 100 mg Tablet PO (20:03)
[2021-05-12] MEDS: chlorPROMazine 50 mg Tablet 250 MG PO (20:03)
[2021-05-12] MEDS: zolpidem 5 mg Tablet 10 MG PO (20:03)
[2021-05-12 22:00] VITALS: BP 117/77; PULSE 84; RESP 22; TEMP 36.5; O2SAT 98
[2021-05-13 06:00] VITALS: BP 98/59; PULSE 85; RESP 17; TEMP 36.8; O2SAT 98
[2021-05-13 07:18] LABS: Hemoglobin 11.4 g/dL (11.7-16.6)
--- NOTE | 2021-05-13 08:15 | P.NPUDS_ITS ---
Diagnoses at Discharge Discharge Diagnosis (1) Heel sore: Status: Acute (2) Hypotension: Status: Acute (3) Chronic anticoagulation: Status: Chronic Permanent problem details: eliquis (4) Pulmonary embolism: Status: Chronic Qualifiers: Pulmonary embolism type: other Chronicity: chronic Acute cor pulmonale presence: without acute cor pulmonale Qualified Code(s): I27.82 - Chronic pulmonary embolism (5) Intentional drug overdose: Status: Acute (6) Schizophrenia: Status: Chronic Qualifiers: Schizophrenia type: unspecified Qualified Code(s): F20.9 - Schizoph lewis, unspecified (7) Opiate misuse: Status: Chronic (8) Suicide attempt by drug overdose: Status: Acute (9) Psychosis: Status: Chronic (10) Cluster B personality disorder: Status: Chronic (11) Bipolar depression: Status: Chronic Reason for Visit Reason for Visit: SI Brief History: History of Present Illness Shayan Dickson is a 36 year old male who was admitted to our emergency department with the following report: Chief Complaint: Psychiatric Symptoms Stated Complaint: SI Time Seen by Provider: 04/16/21 15:13 Source: patient Mode of arrival: ambulatory Limitations: no limitations History of Present Illness:?? HPI Narrative: 36-year-old male presents to the ER after intentionally overdosing on multiple medications 2 hours prior to arrival.Approximate amounts below: Eliquis 5 mg, #30 Thorazine 50 mg, #60 Carvedilol 3.125mg #40 Lunesta 1 mg #20 Vistaril 25 mg #100 Clonazepam 0.5 mg #40 Denies coingestion of alcohol or other drugs. This is not the first time he has attempted suicide by overdose. MD complaint: suicidal ideation and feels depressed Associated symptoms: Reports auditory hallucinations, visual hallucinations, depression and suicidal ideation He was in the ICU for several days requiring pressor agents to keep his blood pressure up after the overdose.? Was transferred to psychiatry today for definitive treatment of these issues.? He has not required any medications for his blood pressure recently.? He said that he was doing great up until about 1 week prior to admission.? He had not been able to get into a doctor for Suboxone and since his discharge in late January he has only taken half dose of the Suboxone.? He had an appointment with a psychiatrist but his uncle had Lasix surgery and he missed that appointment.? He was told that he should have called and canceled the appointment and it might not have been counted against him as it is if he misses an appointment.? He has an appointment at a pain clinic in approximately 1 month and is hopeful that they will continue his Suboxone.? He feels like the Latuda 40 mg was working very well.? He said that it has really helped his mood. ?Unfortunately about 1 week ago he started hearing the voices again.? They gotten worse and worse and started causing anxiety.? They were telling him he should kill himself.? He is started just laying in bed becoming more and more depressed.? He took his whole bottle of Thorazine and it did make the voices go away but he thought that they would come back so he took all the other medications listed in order to try to kill himself.? He still wishes he had been successful.? He acknowledges that medication adjustments very well could be successful in making the voices go away.? They are very quiet now, probably because of all the Thorazine that she took.? He would like to increase his Thorazine to 250 or 300 mg.? We need to take it slow because he has not needed medications to support his blood pressure recently. Hospital Course Hospital Course He slowly acclimated to the individual, group and milieu therapies provided. Thorazine was increased to 250 mg at bedtime and Latuda was increased to 80 mg daily he was continued on his outpatient medications. Be hospital follow-up for guardianship and his guardianship hearing is about 1 week from discharge. He tolerated these doses and showed steady improvement during his stay. He was able to contract for safety outside hospital prior to discharge. During the hospitalization, patient had routine laboratory studies which were within normal limits except for few outliers. Additionally there was a general medical evaluation which was also within normal limits and revealed no new acute processes. Discharge Summary: At the time of discharge, lethality was denied and psychosis was resolving. Mood and anxiety were well managed. Patient endorsed a plan to follow-up with the aftercare recommendations of the treatment team. Patient was evaluated and deemed to be absent credible lethality, and had achieved the maximum benefit from an inpatient hospitalization, so was discharged. Involuntary Hold Information 96 Hour Hold: 96 Hour Involuntary Admission: No Mental Status Exam MSE Comments: this is a 36-year old overweight male who appears approximately his stated age and is in no acute distress. His grooming is fair he is dressed in hospital scrubs with full hayes. psychomotor activity mildly decreased Speech is at a regular rate and rhythm, normal volume, good articulation, not pressured. Alert, oriented X3 Attention and concentration average. Memory is intact Mood is good Affect is euthymic. Thought process is logical and goal-directed. Thought content: Denies mild auditory hallucinations but no visual hallucinations. No delusions or paranoia are noted. No current suicidal ideation, and no homicidal ideation. Fund of knowledge is average. Insight and judgment appear to be improved. Impulse control is improved. Cognition: Patient Appearance: Appropriate Level of Consciousness: Awake and Alert Patient Cognition Impaired: No Ability to Follow Directions: Good Patient Orientation (long list): Person, Place, Time, Name, Age, Birthday and Year Comprehension Ability: No Impairment Hallucination Type: None Delusion Description: Not Present Thought Process: Appropriate Affect: Affect Description: Appropriate Depressive Symptoms: Feelings of Worthlessness and Unhappiness Behavior: Patient Behavior: Appropriate Speech Pattern: Appropriate Discharge Data Studies Completed and Pending: Completed Studies During Hospitalization Category Date Time Status CT abdomen pelvis wo con [id number] Rout ine Cat Scan 04/16/21 22:26 Completed XR chest 1V sourav ble [id number] Routine Exams 04/16/21 21:32 Completed XR chest 1V sourav ble [id number] Routine Exams 04/18/21 14:52 Completed US venous duplex lower extremity bi lat [CV venous Ultrasound 05/07/21 08:03 [place] [id number]] Routine Pending at discharge Category Date Time Status Occult Blood Stoo l [Immunochemical Fecal OCB] Routine Lab 05/11/21 11:20 Uncollected Radiology Impressions Abdomen/Pelvis CT 04/16/21 22:26 IMPRESSION: 1. Mild basilar infiltrate or atelectasis 2. Markedly dilated urinary bladder. Chest X-Ray 04/18/21 14:52 IMPRESSION: Nonacute. Laboratory Results WBC 5.3 10^3/uL (4.0- 10.0) 05/11/21 08:55 RBC 4.15 10^6/uL (4.1 -5.3) 05/11/21 08:55 Hgb 11.4 g/dL (11.7-1 6.6) L 05/13/21 07:10 Hct 34.0 % (42.0-52.0 ) L 05/13/21 07:10 MCV 88.7 fl (80-94) 05/11/21 08:55 MCH 28.0 pg (28.0-34. 0) 05/11/21 08:55 MCHC 31.5 g/dL (30.0-3 6.0) 05/11/21 08:55 RDW 13.3 % (12.1-15.1 ) 05/11/21 08:55 Plt Count 211 10^3/cmm (130 -400) 05/11/21 08:55 MPV 10.1 fL (7.4-10.4 ) 05/11/21 08:55 Neut % (Auto) 47.3 % 05/11/21 08:55 Lymph % (Auto) 32.7 % 05/11/21 08:55 Pratt % (Auto) 11.1 % 05/11/21 08:55 Eos % (Auto) 8.1 % 05/11/21 08:55 Baso % (Auto) 0.4 % 05/11/21 08:55 Neut # (Auto) 2.52 10^3/uL (1.8 -7.7) 05/11/21 08:55 Lymph # (Auto) 1.7 10^3/uL (0.8- 4.8) 05/11/21 08:55 Pratt # (Auto) 0.6 10^3/uL (0.2- 0.9) 05/11/21 08:55 Eos # (Auto) 0.4 10^3/uL (0.0- 0.8) 05/11/21 08:55 Baso # (Auto) 0.0 10^3/uL (0.0- 0.1) 05/11/21 08:55 Nucleated RBC % (a uto) 0 % 05/11/21 08:55 Nucleated RBCs # 0.0 /100WBC 05/11/21 08:55 PT 13.70 SECONDS (12 .1-14.9) 05/11/21 12:42 INR 1.01 (0.8-1.2) 05/11/21 12:42 APTT 37.0 SECONDS (23. 9-36.7) H 05/11/21 12:42 Sodium 139 mmol/L (136-1 45) 05/08/21 09:21 Potassium 4.4 mmol/L (3.5-5 .1) 05/08/21 09:21 Chloride 102 mmol/L (98-10 7) 05/08/21 09:21 Carbon Dioxide 28 mmol/L (22-29) 05/08/21 09:21 Anion Gap 13.4 (5-19) 05/08/21 09:21 BUN 20 mg/dL (6-20) 05/08/21 09:21 Creatinine 0.9 mg/dL (0.7-1. 2) 05/08/21 09:21 GFR Calculation 95.0 mL/min (90-1 30) 05/08/21 09:21 Glucose 104 mg/dL (65-115 ) 05/08/21 09:21 POC Glucose 426 mg/dL (70-110 ) H 04/24/21 21:56 Calculated Osmolal ity 291 mOsm/kg (285- 295) 05/08/21 09:21 Calcium 8.5 mg/dL (8.5-10 .5) 05/08/21 09:21 Magnesium 1.8 mg/dL (1.7-2. 3) 04/17/21 04:33 Total Bilirubin 0.2 mg/dL (0.15-1 .2) 05/08/21 09:21 AST 27 U/L (0-40) 05/08/21 09:21 ALT 36 U/L (0-41) 05/08/21 09:21 Alkaline Phosphata se 78 IU/L (40-130) 05/08/21 09:21 Creatine Kinase 70 U/L (39-308) 04/16/21 15:36 Troponin T Baselin e 7 ng/L (0-15) 04/18/21 15:19 Troponin T 120 Min resighini 6.69 ng/L (0-15) 04/18/21 17:37 Delta Troponin T -0.31 ABS# (0-10) L 04/18/21 17:37 Troponin T Hi Sens 6Hr 7.07 ng/L (0-15) 04/18/21 21:07 Troponin T Hi Sens 6Hr Delta 0.07 ng/L (0-12) 04/18/21 21:07 Total Protein 6.2 g/dL (6.6-8.7 ) L 05/08/21 09:21 Albumin 4.0 g/dL (3.5-5.2 ) 05/08/21 09:21 Globulin 2.2 g/dL (1.3-4.6 ) 05/08/21 09:21 Urine Color Yellow (Yellow) 04/16/21 17:32 Urine Appearance Clear (CLEAR) 04/16/21 17:32 Urine pH 6 (5-7) 04/16/21 17:32 Ur Specific Gravit y 1.015 (1.005-1.0 30) 04/16/21 17:32 Urine Protein Neg (Negative) 04/16/21 17:32 Urine Glucose (UA) Norm (Normal) 04/16/21 17:32 Urine Ketones Negative (Negati ve) 04/16/21 17:32 Urine Blood Neg (Negative) 04/16/21 17:32 Urine Nitrate Negative (Negati ve) 04/16/21 17:32 Urine Bilirubin Neg (Negative) 04/16/21 17:32 Urine Urobilinogen Norm mg/dL (Negat murali) 04/16/21 17:32 Ur Leukocyte Riya ase Negative (Negati ve) 04/16/21 17:32 Salicylates < 0.3 mg/dL (3-10 ) L 04/16/21 15:36 Urine Opiates Scre en Negative ng/mL (N egative) 04/16/21 17:32 Acetaminophen < 5.0 ug/mL (10-3 0) L 04/16/21 15:36 Ur Barbiturates Sc reen Negative ng/mL (N egative) 04/16/21 17:32 Ur Phencyclidine S crn Negative ng/mL (N egative) 04/16/21 17:32 Ur Amphetamines Sc reen Negative ng/mL (N egative) 04/16/21 17:32 U Benzodiazepines Scrn Negative ng/mL (N egative) 04/16/21 17:32 Urine Cocaine Scre en Negative ng/mL (N egative) 04/16/21 17:32 U Marijuana (THC) Screen Negative ng/mL (N egative) 04/16/21 17:32 Ethyl Alcohol < 10 mg/dL (0-10) 04/16/21 15:36 Coronavirus 229E ( PCR) Not detected (NO T DETECT) 04/16/21 21:14 SARS-CoV-2 (PCR) Not detected (NO T DETECT) 04/16/21 21:14 Vitals: Last Vital Signs Temp 98.2 F 05/13/21 06:00 Pulse 85 05/13/21 06:00 Resp 17 05/13/21 06:00 BP 98/59 05/13/21 06:00 Pulse Ox 98 05/13/21 06:00 Discharge Plan Discharge Patient Disposition: Home Condition: Stable Prescriptions: New chlorpromazine 50 mg Tablet 250 mg PO BEDTIME 7 Days Qty: 35 2RF chlorpromazine 50 mg Tablet 50 mg PO Q4H PRN (Reason: Agitation) 7 Days Qty: 14 2RF hydroxyzine pamoate 25 mg Capsule 50 mg PO Q6H PRN (Reason: Anxiety or Sleep) 7 Days Qty: 21 2RF Latuda 80 mg Tablet 80 mg PO 1700 Qty: 0 0RF Continued aspirin [Adult Low Dose Aspirin] 81 mg tablet,delayed release (DR/EC) 81 mg PO DAILY 0RF carvedilol 3.125 mg tablet 3.125 mg PO BID Qty: 60 3RF Rx Instructions: must administer with a meal/food chlorpromazine 50 mg tablet 150 mg PO BEDTIME 30 Days Qty: 90 1RF hydroxyzine pamoate 25 mg capsule 50 mg PO Q6H PRN (Reason: Anxiety or Sleep) 30 Days Qty: 180 1RF losartan 25 mg tablet 25 mg PO DAILY Qty: 30 2RF spironolactone 25 mg tablet 25 mg PO DAILY Qty: 30 3RF trazodone 100 mg tablet 100 mg PO BEDTIME PRN (Reason: Insomnia) 30 Days Qty: 30 1RF clonazepam 0.5 mg tablet 0.5 mg PO BID@,21 7 Days Qty: 14 2RF Lunesta 1 mg tablet 1 mg PO BEDTIME 7 Days Qty: 7 2RF Eliquis 5 mg tablet 5 mg PO BID 7 Days Qty: 14 2RF Discontinued Latuda 20 mg tablet 40 mg PO 1700 30 Days Qty: 60 1RF Discharge Orders: Discharge Order (Routine); Ordered 05/13/21 Ordered By: Noel House Referrals: [facility] – [place] [facility] [Outside] - 05/01/21 11:30 am (Initial assessment) Discharge Diet: Regular Discharge Activity: Resume usual activity Patient Instructions: Opioid Safety Discharge Attestations NPU Time Spent in Discharge Care*: less than 30 min Specific Discharge Activities: Specific discharge activities: educating patient, discussing with bilingual case manager/social workers/dc planners, documenting/other paperwork and evaluating patient/reviewing data Status at Discharge: Cognitive status at discharge: cognitively intact , Behavioral status at discharge: cooperative , Coding Level of Care Code Acute Chg FW DC note Diagnoses Heel sore L98.9 Hypotension I95.9 Chronic anticoagulation Z79.01 Pulmonary embolism I27.82 Pulmonary embolism type: other Chronicity: chronic Acute cor pulmonale presence: without acute cor pulmonale Intentional drug overdose T50.902A Schizophrenia F20.9 Schizophrenia type: unspecified Opiate misuse F11.90 Suicide attempt by drug overdose T50.902A Psychosis F29 Cluster B personality disorder F60.89 Bipolar depression F31.9
--- NOTE | 2021-05-13 08:23 | DCPLANNER ---
IMM completed on 05/13/21 @ 5808. Pt was given a copy of rights and he stated he understands his rights.
[2021-05-13] MEDS: buprenorphine-naloxone 4-1 mg Film 2 EACH SUBLINGUAL (08:40)
[2021-05-13] MEDS: aspirin 81 mg EC Tablet PO (08:40)
[2021-05-13] MEDS: CLONazepam 0.5 mg Tablet PO (08:40)
[2021-05-13] MEDS: apixaban 5 mg Tablet PO (08:40)
[2021-05-13] MEDS: pantoprazole DR 40 mg Tablet PO (08:40)
[2021-05-13] MEDS: nicotine 2 mg Gum BUCCAL (08:40)
--- NOTE | 2021-05-13 08:46 | PC.NURSE ---
Spoke with uncle regarding delay in patient discharge. Will phone uncle when patient is ready to be discharged.
[2021-05-13] MEDS: hyDROXYzine 25 mg Capsule 50 MG PO ×2 (10:14→10:15)
--- NOTE | 2021-05-13 10:34 | PC.NURSE ---
ORDER RECIEVED FROM DR. KEYES TO CALL IN SUBOXONE 8-2, TAKE ONE FILM DAILY CALLED INTO [facility]
--- NOTE | 2021-05-13 10:39 | P.NPUPN_ITS ---
Subjective NPU Subjective: Interval history: The alcohol and his girlfriend are both very aware of that he should keep medications safe. They have promised to keep medications so that he can have limited access to them and only can take 1 dose of medication at a time. They also understand that he should not be allowed to go to the store on his home or be allowed to order things from stores to be brought to the home. He must not be allowed to get any supplements or medications from the store. In addition I have only prescribed 1 weeks of medication for him with one refill on the controlled substances. Mental Status Exam Cognition: Patient Appearance: Appropriate Level of Consciousness: Awake and Alert Patient Cognition Impaired: No Ability to Follow Directions: Good Patient Orientation (long list): Person, Place, Time, Name, Age, Birthday and Year Comprehension Ability: No Impairment Hallucination Type: None Delusion Description: Not Present Thought Process: Appropriate Affect: Affect Description: Appropriate Depressive Symptoms: Feelings of Worthlessness and Unhappiness Behavior: Patient Behavior: Appropriate Speech Pattern: Appropriate Vitals/I&O/Wt Last Vital Signs Temp 98.2 F 05/13/21 06:00 Pulse 85 05/13/21 06:00 Resp 17 05/13/21 06:00 BP 98/59 05/13/21 06:00 Pulse Ox 98 05/13/21 06:00 Data NPU : 05/13/21 07:10 05/08/21 09:21 A&P Assessment and plan (1) Heel sore: Status: Acute (2) Hypotension: Status: Acute (3) Chronic anticoagulation: Status: Chronic (4) Pulmonary embolism: Status: Chronic Qualifiers: Pulmonary embolism type: other Chronicity: chronic Acute cor pulmonale presence: without acute cor pulmonale Qualified Code(s): I27.82 - Chronic pulmonary embolism (5) Intentional drug overdose: Status: Acute (6) Schizophrenia: Status: Chronic Qualifiers: Schizophrenia type: unspecified Qualified Code(s): F20.9 - Schizophrenia, unspecified (7) Opiate misuse: Status: Chronic (8) Suicide attempt by drug overdose: Status: Acute (9) Psychosis: Status: Chronic (10) Cluster B personality disorder: Status: Chronic (11) Bipolar depression: Status: Chronic Involuntary Hold Information 96 Hour Hold: 96 Hour Involuntary Admission: No Attestations NPU Medical Necessity Statement*: Inpatient hospitalization is medically necessary and the clinically appropriate intervention at this time. We will initiate medications and make changes as indicated. Coding Level of Care Code Acute Irrigation Technician for Chg Fwd Diagnoses Heel sore L98.9 Hypotension I95.9 Chronic anticoagulation Z79.01 Pulmonary embolism I27.82 Pulmonary embolism type: other Chronicity: chronic Acute cor pulmonale presence: without acute cor pulmonale Intentional drug overdose T50.902A Schizophrenia F20.9 Schizophrenia type: unspecified Opiate misuse F11.90 Suicide attempt by drug overdose T50.902A Psychosis F29 Cluster B personality disorder F60.89 Bipolar depression F31.9
--- NOTE | 2021-05-13 11:04 | PC.NURSE ---
Discharge note Meds from pharmacy and home meds given to patient's uncle Power Hammond. Patient present upon exchange. All other belongings given to patient. Patient left ambulatory with uncle to private vehicle. All discharge instructions given per physician orders.
[2021-05-13 11:08] VITALS: BP 98/59; PULSE 85; RESP 17; TEMP 36.8; O2SAT 98
--- NOTE | 2021-05-13 11:14 | NPU.GN ---
[facility] Topic:Thought Process General Mood of Group: Shayan did not attend group today.
== END 2021-05-13 11:10 | disposition home or self-care (01) | DRG 917 ==
LOC: ER 15:58 → ICU 23:24 → NP 04-19 12:19
PROVIDERS: Hospitalist; Internal Medicine; Physician Assistant; Psychiatry & Neurology Psychiatry; Admitting Provider Internal Medicine; Emergency Provider Family Medicine; Visit Provider Psychiatry & Neurology Psychiatry
DX: T44.7X2A Poisoning by beta-adrenoreceptor antagonists, intentional self-harm, initial encounter (principal); R57.0 Cardiogenic shock; R57.1 Hypovolemic shock; I42.8 Other cardiomyopathies; T43.3X2A Poisoning by phenothiazine antipsychotics and neuroleptics, intentional self-harm, initial encounter; T43.592A Poisoning by other antipsychotics and neuroleptics, intentional self-harm, initial encounter; F25.0 Schizoaffective disorder, bipolar type; F17.210 Nicotine dependence, cigarettes, uncomplicated; I95.9 Hypotension, unspecified; Z91.51 Personal history of suicidal behavior; Z86.711 Personal history of pulmonary embolism; F60.89 Other specific personality disorders; Z79.01 Long term (current) use of anticoagulants; Z79.82 Long term (current) use of aspirin
CPT/HCPCS: 36415; 36416; 36592; 71045; 74176; 80048; 80053; 80306; 80307; 81003; 82550; 82962; 83735; 84484; 85014; 85018; 85025; 85610; 85730; 87635; 93005; 93970; 96365; 96366; 96367; 96375; 96376; 97150; 97165; 99285; C1751; C9113; J0461; J0573; J1610; J3475; J3490; J7030; Q0161; Q0163; Q9967

== ENCOUNTER 2021-06-03 09:50 | Inpatient (IN) | payer MEDICARE, MEDICAID, SELFPAY ==
[2021-06-03 09:58] VITALS: BP 120/90; PULSE 125; RESP 18; TEMP 37.5; O2SAT 97; BMI 30.7
--- NOTE | 2021-06-03 09:58 | ECG_ITS ---
[facility] Test Date: 2021-06-03 Pat Name: Shayan Dickson Department: Room: Gender: Male Radiation Oncologist: : 1985 Requested By: Sandip Parks Order Number: [id number] [email or web address] MD: Phuc Valenzuela M.D. Measurements Intervals [place] Rate: 110 P: 61 WV: 158 QRS: -85 QRSD: 97 T: 56 QT: 333 QTc: 451 Interpretive Statements SINUS TACHYCARDIA LEFT AXIS DEVIATION [QRS AXIS < -30] PATTERN CONSISTENT WITH PULMONARY DISEASE Compared to ECG 06/02/2021 18:12:41 Sinus rhythm no longer present Electronically Signed On 06-03-2021 23:07:30 MANAGER ATHLETICS by Phuc Valenzuela M.D. [id number]
--- NOTE | 2021-06-03 10:03 | ED.C_ITS ---
Documented by User: MORA Ponce 06/03/21 16:06 HPI - Psych General: Chief Complaint: Psychiatric Symptoms Stated Complaint: SI took like 60 benadrill Time Seen by Provider: 06/03/21 09:55 History of Present Illness: Patient is a 36-year-old male comes to the ED with SI. Past medical history of schizophrenia, cluster B personality disorder. he took approximately 60 25 mg Benadryl tablets at 3 AM this morning to try and kill himself. History of past suicide attempts. States he has been having some worsening depression and thoughts of SI past couple weeks. He says he hears voices in his head telling him to kill himself. He admits to hearing voices in his head for a while now. He says the medications he has been on in the past have not helped the voices. Patient says he is tired of being alive. He recently stopped taking Latuda due to cost. He endorses having poor sleep. Denies any HI. Here in the ED says he feels a little anxious and his mouth feels really dry. Endorses some blurry vision. Denies any nausea or vomiting. Associated symptoms: Reports auditory hallucinations, depression and suicidal ideation; Deny homicidal ideation Review of Systems Const: Denies: fever(s), chills or fatigue Eyes: Denies: change in vision or eye discomfort ENMT: Denies: throat pain, odynophagia, nasal discharge or nasal congestion Card: Denies: chest pain, palpitations, edema, swelling of feet/ankles, dyspnea on exertion or orthopnea Resp: Denies: dyspnea, productive cough or non-productive cough GI: Denies: abdominal pain, nausea, vomiting, diarrhea, constipation or hemato chezia : Denies: flank pain, difficulty urinating, dysuria or hematuria Musc: Denies: neck pain, back pain or extremity swelling Skin/Breast: Denies: rash or new lesions Neuro: Denies: headache(s), numbness in extremities or weakness in extremities Psych: Reports: depression, sleeping less, auditory hallucinations and suicidal ideation; Denies: homicidal ideation [facility] ED PFSH: Medical History Acute pancreatitis (~12/2020) History of cardiovascular stress test (~01/2021) History of foreign body ingestion intentional, requiring invasive intervention Opiate misuse QT prolongation history of medication induced QT prolongation Schizophrenia Suicide attempt Ulcerative colitis Surgical History History of appendectomy History of esophagogastroduodenoscopy (EGD) Social History Smoking and tobacco status: current every day smoker Alcohol intake: current Physical Exam Const: COMMON NORMALS: no acute distress, patient oriented x3 and alert GENERAL APPEARANCE: cooperative and anxious HENMT: COMMON NORMALS: normocephalic HEAD & SCALP: normocephalic MOUTH: Normal oral and palatal mucosa present THROAT: posterior oropharynx normal and uvula midline Eye: COMMON NORMALS: Equal, round and reactive pupils present and conjunctivae normal CONJUNCTIVA: Yes conjunctivae normal PUPIL: Yes Equal, round and reactive pupils present Neck/C-Spine: COMMON NORMALS: supple GENERAL: Yes normal visual inspection Resp: COMMON NORMALS: normal respiratory effort, No retractions, No use of accessory muscles and clear to auscultation bilaterally AUSCULTATION: clear to auscultation bilaterally Cardio: COMMON NORMALS: regular rate, regular rhythm, S1 normal heart sound present, S2 normal heart sound present, No gallops present (Cardio), No clicks p resent (Cardio), No murmurs present (Cardio) and Peripheral pulses 2+ throughout RATE: regular rate RHYTHM: regular rhythm HEART SOUNDS: S1 normal heart sound present and S2 normal heart sound present PERIPHERAL PULSES: Peripheral pulses 2+ throughout GI: COMMON NORMALS: Normal to inspection, nondistended, normoactive bowel sounds present, Soft to palpation, non-tender and no masses PALPATION: Yes Soft to palpation : COMMON NORMALS: Yes no CVA tenderness BLADDER/KIDNEY EXAM: Yes no CVA tenderness Back/Pelvis: COMMON NORMALS: no CVA tenderness Extremity: COMMON NORMALS: normal to inspection Neuro: COMMON NORMALS: patient oriented x3 and moves all extremities SENSORIUM/ORIENTATION: Yes alert Psych: COMMON NORMALS: mental status grossly normal, Normal thought process present, cooperative, speech normal and denies homicidal ideation APPEARANCE: Yes grossly normal ATTITUDE: Yes agitated ACTIVITY/MOTOR BEHAVIOR: Yes appropriate eye contact SPEECH: Yes normal speech MOOD & AFFECT: Yes depressed mood and Yes anxious THOUGHT PROCESS: Normal thought process present THOUGHT CONTENT: Yes Suicidality present and Yes Hallucination(s) present (hears voices telling him to kill himself) ATTENTION/CONCENTRATION: Yes attention grossly intact and Yes concentration grossly intact Skin: GENERAL SKIN EXAM: dry skin Course Reevaluation(s): Reevaluation #1: I went in to check on patient. Patient said he is feeling a little better he is less anxious. I checked his pulse and it was 102 bpm. His tachycardia appears to be improving. Time: 11:30 Consultations: Consultation #1: I contacted was reporting and drawn talk with pharmacist yesterday. Told him about patient case and overdose on Benadryl. He said that the peak levels are Benadryl usually occur within the first 2 to 4 hours. Based off of patient's ingestion of pills around 3 AM he was little over the 7-hours postingestion. His symptoms of some tachycardia dry mouth and anxiousness seem fairly mild and he thinks likely at this point he is on the downward end of the medication affect. He recommended getting a magnesium level and an EKG on patient. Since patient's clinical appearance does not correlate with the excessive amount of Benadryl he took and how his body should be responding he thought patient likely took less than 60 tabs. He told me they will check back in within an hour to see how patient is doing. He also said he will be faxing over some information on Benadryl. He recommended watching patient for an hour and seeing how his labs look and then reassessing plan of care. Time: 10:29 Vital Signs: Vital signs: Vital Signs Temperature 97.7 F 06/07/21 20:09 Pulse Rate 84 06/07/21 20:09 Respiratory Rate 18 06/07/21 20:09 Blood Pressure 98/62 06/07/21 20:09 Pulse Oximetry 93 06/07/21 20:09 [facility] - Psych Medical Decision Making Patient is a 36-year-old male comes to the ED with SI. History of schizophrenia and past SI attempt. Patient reported to take 60 of the 25 mg Benadryl tablets at 3 AM this morning. Currently here in the ED he endorses some anxiety, dry mouth and is tachycardic at heart rate of 125. Denies any vomiting. Rest of his vitals are stable. I contacted poison control and they thought patient is likely way past the peak effect of Benadryl since the window was about 2 to 3 hours. I recommended doing an EKG, getting a mag level and monitoring patient for another hour and reassessing. After an hour patient was stable his tachycardia resolved and he stated he was feeling better. All prescreening psych labs were normal and urine drug screen was negative. Mag was normal and EKG showed sinus tachycardia but no other significant findings. I placed an affidavit in patient's file just in case he tries to leave. He told me that it is he left he would try to kill himself again. I talked to Dr. Escobar on outpatient case and he agreed with admission to [facility]. Dr. Haas was also involved with case and will be placing the admitting orders Lab Data I reviewed the patient's lab results. : 06/04/21 09:00 06/04/21 09:00 Laboratory Results WBC 8.4 10^3/uL (4.0-10.0) 06/03/21 11:30 RBC 5.56 10^6/uL (4.1-5.3) H 06/03/21 11:30 Hgb 15.2 g/dL (11.7-16.6) 06/03/21 11:30 Hct 45.6 % (42.0-52.0) 06/03/21 11:30 MCV 82.0 fl (80-94) 06/03/21 11:30 MCH 27.3 pg (28.0-34.0) L 06/03/21 11:30 MCHC 33.3 g/dL (30.0-36.0) 06/03/21 11:30 RDW 12.6 % (12.1-15.1) 06/03/21 11:30 Plt Count 264 10^3/cmm (130-400) 06/03/21 11:30 MPV 9.7 fL (7.4-10.4) 06/03/21 11:30 Neut % (Auto) 79.9 % 06/03/21 11:30 Lymph % (Auto) 13.6 % 06/03/21 11:30 [place] % (Auto) 5.6 % 06/03/21 11:30 Eos % (Auto) 0.5 % 06/03/21 11:30 Baso % (Auto) 0.2 % 06/03/21 11:30 Neut # (Auto) 6.68 10^3/uL (1.8-7.7) 06/03/21 11:30 Lymph # (Auto) 1.1 10^3/uL (0.8-4.8) 06/03/21 11:30 [place] # (Auto) 0.5 10^3/uL (0.2-0.9) 06/03/21 11:30 Eos # (Auto) 0.0 10^3/uL (0.0-0.8) 06/03/21 11:30 Baso # (Auto) 0.0 10^3/uL (0.0-0.1) 06/03/21 11:30 Nucleated RBC % (auto) 0 % 06/03/21 11:30 Nucleated RBCs # 0.0 /100WBC 06/03/21 11:30 Sodium 135 mmol/L (136-145) L 06/03/21 11:30 Potassium 4.3 mmol/L (3.5-5.1) 06/03/21 11:30 Chloride 102 mmol/L (98-107) 06/03/21 11:30 Carbon Dioxide 21 mmol/L (22-29) L 06/03/21 11:30 Anion Gap 16.3 (5-19) 06/03/21 11:30 BUN 11 mg/dL (6-20) 06/03/21 11:30 Creatinine 0.8 mg/dL (0.7-1.2) 06/03/21 11:30 GFR Calculation 108.8 mL/min (90-130) 06/03/21 11:30 Glucose 100 mg/dL (65-115) 06/03/21 11:30 Calculated Osmolality 279 mOsm/kg (285-295) L 06/03/21 11:30 Calcium 9.7 mg/dL (8.5-10.5) 06/03/21 11:30 Magnesium 1.9 mg/dL (1.7-2.3) 06/03/21 11:30 Total Bilirubin 0.5 mg/dL (0.15-1.2) 06/03/21 11:30 AST 16 U/L (0-40) 06/03/21 11:30 ALT 8 U/L (0-41) 06/03/21 11:30 Alkaline Phosphatase 85 IU/L (40-130) 06/03/21 11:30 Total Protein 7.9 g/dL (6.6-8.7) 06/03/21 11:30 Albumin 5.0 g/dL (3.5-5.2) 06/03/21 11:30 Globulin 2.9 g/dL (1.3-4.6) 06/03/21 11:30 Urine Color Yellow (Yellow) 06/03/21 10:46 Urine Appearance Clear (CLEAR) 06/03/21 10:46 Urine pH 5 (5-7) 06/03/21 10:46 Ur Specific [place] 1.025 (1.005-1.030) 06/03/21 10:46 Urine Protein 1+ (Negative) H 06/03/21 10:46 Urine Glucose (UA) Norm (Normal) 06/03/21 10:46 Urine Ketones 1+ (Negative) H 06/03/21 10:46 Urine Blood Neg (Negative) 06/03/21 10:46 Urine Nitrate Negative (Negative) 06/03/21 10:46 Urine Bilirubin 1+ (Negative) H 06/03/21 10:46 Urine Urobilinogen 4 mg/dL (Negative) H 06/03/21 10:46 Ur Leukocyte Esterase 1+ (Negative) H 06/03/21 10:46 Urine RBC None /hpf (0-2) 06/03/21 10:46 Urine WBC 0-4 /hpf (0-5) H 06/03/21 10:46 Ur Squamous Epith Cells 0-4 /hpf (0-5) H 06/03/21 10:46 Amorphous Sediment Not Reportable 06/03/21 10:46 Urine Bacteria 1+ /hpf (NONE) H 06/03/21 10:46 Urine Mucus Trace /hpf 06/03/21 10:46 Salicylates < 0.3 mg/dL (3-10) L 06/03/21 11:30 Urine Opiates Screen Negative ng/mL (Negative) 06/03/21 10:46 Acetaminophen < 5.0 ug/mL (10-30) L 06/03/21 11:30 Ur Barbiturates Screen Negative ng/mL (Negative) 06/03/21 10:46 Ur Phencyclidine Scrn Negative ng/mL (Negative) 06/03/21 10:46 Ur Amphetamines Screen Negative ng/mL (Negative) 06/03/21 10:46 U Benzodiazepines Scrn Negative ng/mL (Negative) 06/03/21 10:46 Urine Cocaine Screen Negative ng/mL (Negative) 06/03/21 10:46 U Marijuana (THC) Screen Negative ng/mL (Negative) 06/03/21 10:46 Ethyl Alcohol < 10 mg/dL (0-10) 06/03/21 11:30 EKG Data EKG 1: EKG interpretation date: 06/03/21 Interpretation: Sinus tachycardia, no ST segment elevation or depression seen. Discharge Plan Discharge Patient Disposition: Admitted As Inpatient Admit Provider: Jag Escobar Clinical Impression: Suicidal ideation, Schizophrenia, Suicide attempt by drug overdose Condition: Stable Sign Out Sign Out Data: Patient Sign Out occurred on 06/03/21 at 14:45. Patient's care was discussed, and care was transferred from to Farhad Haas DO. Coding Level of Care Code ED Call Center Assistant for Chg 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 Documented by User: Farhad Haas DO 06/08/21 06:31 HPI - Psych General: Chief Complaint: Psychiatric Symptoms Stated Complaint: SI took like 60 benadrill Time Seen by Provider: 06/03/21 09:55 History of Present Illness: Patient is a 36-year-old male comes to the ED with SI. Past medical history of schizophrenia, cluster B personality disorder. he took approximately 60 25 mg Benadryl tablets at 3 AM this morning to try and kill himself. History of past suicide attempts. States he has been having some worsening depression and thoughts of SI past couple weeks. He says he hears voices in his head telling him to kill himself. He admits to hearing voices in his head for a while now. He says the medications he has been on in the past have not helped the voices. Patient says he is tired of being alive. He re cently stopped taking Latuda due to cost. He endorses having poor sleep. Denies any HI. Here in the ED says he feels a little anxious and his mouth feels really dry. Endorses some blurry vision. Denies any nausea or vomiting. Patient seen discussed endorse the same history as given above reviewed above history as well patient initially seen by MORA Ponce discussed with myself. Patient is resting comfortably with no sedation at this time. MD complaint: suicidal ideation Onset (ago): minute(s) [facility] ED PFSH: Medical History Acute pancreatitis (~12/2020) History of cardiovascular stress test (~01/2021) History of foreign body ingestion intentional, requiring invasive intervention Opiate misuse QT prolongation history of medication induced QT prolongation Schizophrenia Suicide attempt Ulcerative colitis Surgical History History of appendectomy History of esophagogastroduodenoscopy (EGD) Social History Smoking and tobacco status: current every day smoker Alcohol intake: current Physical Exam Const: COMMON NORMALS: no acute distress GENERAL APPEARANCE: cooperative and comfortable ORIENTATION/CONSCIOUSNESS: Yes awake, Yes oriented to person, Yes oriented to place and Yes oriented to time HENMT: COMMON NORMALS: normocephalic, atraumatic and hearing grossly normal bilaterally HEAD & SCALP: normocephalic and atraumatic Neck/C-Spine: COMMON NORMALS: no JVD Resp: COMMON NORMALS: normal respiratory effort, No retractions, No use of accessory muscles and clear to auscultation bilaterally AUSCULTATION: clear to auscultation bilaterally Cardio: COMMON NORMALS: no JVD, regular rate, regular rhythm and No murmurs present (Cardio) RATE: regular rate RHYTHM: regular rhythm GI: COMMON NORMALS: Soft to palpation and No hepatosplenomegaly present AUSCULTATION: Yes normoactive bowel sounds PALPATION: Yes Soft to palpation, No Tenderness to palpation present (GI), No Guarding due to palpation present (GI) and Yes No hepatosplenomegaly present Extremity: COMMON NORMALS: normal to inspection, capillary refill normal, no clubbing, cyanosis or edema, no calf tenderness and no pedal edema Neuro: SENSORIUM/ORIENTATION: Yes oriented to person, Yes oriented to place and Yes oriented to time Course Vital Signs: Vital signs: Vital Signs Temperature 97.7 F 06/07/21 20:09 Pulse Rate 84 06/07/21 20:09 Respiratory Rate 18 06/07/21 20:09 Blood Pressure 98/62 06/07/21 20:09 Pulse Oximetry 93 06/07/21 20:09 [facility] - Psych Medical Decision Making Patient is a 36-year-old male comes to the ED with SI. History of schizophrenia and past SI attempt. Patient reported to take 60 of the 25 mg Benadryl tablets at 3 AM this morning. Currently here in the ED he endorses some anxiety, dry mouth and is tachycardic at heart rate of 125. Denies any vomiting. Rest of his vitals are stable. I contacted poison control and they thought patient is likely way past the peak effect of Benadryl since the window was about 2 to 3 hours. I recommended doing an EKG, getting a mag level and monitoring patient for another hour and reassessing. After an hour patient was stable his tachycar collin resolved and he stated he was feeling better. All prescreening psych labs were normal and urine drug screen was negative. Mag was normal and EKG showed sinus tachycardia but no other significant findings. I placed an affidavit in patient's file just in case he tries to leave. He told me that it is he left he would try to kill himself again. I talked to Dr. Escobar on outpatient case and he agreed with admission to [facility]. Dr. Haas was also involved with case and will be placing the admitting orders Patient seen and examined chart reviewed. I agree with assessment patient does require hospitalization he stating that he took 6025 mg tablets of Benadryl he is not and only spits that his EKG is normally 6 to 7 hours out from reported time of ingestion. Think we can safely admit him to the neuropsych floor. Sandip Parks is discussed with Dr. Escobar orders are written. Medical Records I reviewed the patient's medical records. Lab Data I reviewed the patient's lab results. : 06/04/21 09:00 06/04/21 09:00 Laboratory Results WBC 8.4 10^3/uL (4.0-10.0) 06/03/21 11:30 RBC 5.56 10^6/uL (4.1-5.3) H 06/03/21 11:30 Hgb 15.2 g/dL (11.7-16.6) 06/03/21 11:30 Hct 45.6 % (42.0-52.0) 06/03/21 11:30 MCV 82.0 fl (80-94) 06/03/21 11:30 MCH 27.3 pg (28.0-34.0) L 06/03/21 11:30 MCHC 33.3 g/dL (30.0-36.0) 06/03/21 11:30 RDW 12.6 % (12.1-15.1) 06/03/21 11:30 Plt Count 264 10^3/cmm (130-400) 06/03/21 11:30 MPV 9.7 fL (7.4-10.4) 06/03/21 11:30 Neut % (Auto) 79.9 % 06/03/21 11:30 Lymph % (Auto) 13.6 % 06/03/21 11:30 [place] % (Auto) 5.6 % 06/03/21 11:30 Eos % (Auto) 0.5 % 06/03/21 11:30 Baso % (Auto) 0.2 % 06/03/21 11:30 Neut # (Auto) 6.68 10^3/uL (1.8-7.7) 06/03/21 11:30 Lymph # (Auto) 1.1 10^3/uL (0.8-4.8) 06/03/21 11:30 [place] # (Auto) 0.5 10^3/uL (0.2-0.9) 06/03/21 11:30 Eos # (Auto) 0.0 10^3/uL (0.0-0.8) 06/03/21 11:30 Baso # (Auto) 0.0 10^3/uL (0.0-0.1) 06/03/21 11:30 Nucleated RBC % (auto) 0 % 06/03/21 11:30 Nucleated RBCs # 0.0 /100WBC 06/03/21 11:30 Sodium 135 mmol/L (136-145) L 06/03/21 11:30 Potassium 4.3 mmol/L (3.5-5.1) 06/03/21 11:30 Chloride 102 mmol/L (98-107) 06/03/21 11:30 Carbon Dioxide 21 mmol/L (22-29) L 06/03/21 11:30 Anion Gap 16.3 (5-19) 06/03/21 11:30 BUN 11 mg/dL (6-20) 06/03/21 11:30 Creatinine 0.8 mg/dL (0.7-1.2) 06/03/21 11:30 GFR Calculation 108.8 mL/min (90-130) 06/03/21 11:30 Glucose 100 mg/dL (65-115) 06/03/21 11:30 Calculated Osmolality 279 mOsm/kg (285-295) L 06/03/21 11:30 Calcium 9.7 mg/dL (8.5-10.5) 06/03/21 11:30 Magnesium 1.9 mg/dL (1.7-2.3) 06/03/21 11:30 Total Bilirubin 0.5 mg/dL (0.15-1.2) 06/03/21 11:30 AST 16 U/L (0-40) 06/03/21 11:30 ALT 8 U/L (0-41) 06/03/21 11:30 Alkaline Phosphatase 85 IU/L (40-130) 06/03/21 11:30 Total Protein 7.9 g/dL (6.6-8.7) 06/03/21 11:30 Albumin 5.0 g/dL (3.5-5.2) 06/03/21 11:30 Globulin 2.9 g/dL (1.3-4.6) 06/03/21 11:30 Urine Color Yellow (Yellow) 06/03/21 10:46 Urine Appearance Clear (CLEAR) 06/03/21 10:46 Urine pH 5 (5-7) 06/03/21 10:46 Ur Specific [place] 1.025 (1.005-1.030) 06/03/21 10:46 Urine Protein 1+ (Negative) H 06/03/21 10:46 Urine Glucose (UA) Norm (Normal) 06/03/21 10:46 Urine Ketones 1+ (Negative) H 06/03/21 10:46 Urine Blood Neg (Negative) 06/03/21 10:46 Urine Nitrate Negative (Negative) 06/03/21 10:46 Urine Bilirubin 1+ (Negative) H 06/03/21 10:46 Urine Urobilinogen 4 mg/dL (Negative) H 06/03/21 10:46 Ur Leukocyte Esterase 1+ (Negative) H 06/03/21 10:46 Urine RBC None /hpf (0-2) 06/03/21 10:46 Urine WBC 0-4 /hpf (0-5) H 06/03/21 10:46 Ur Squamous Epith Cells 0-4 /hpf (0-5) H 06/03/21 10:46 Amorphous Sediment Not Reportable 06/03/21 10:46 Urine Bacteria 1+ /hpf (NONE) H 06/03/21 10:46 Urine Mucus Trace /hpf 06/03/21 10:46 Salicylates < 0.3 mg/dL (3-10) L 06/03/21 11:30 Urine Opiates Screen Negative ng/mL (Negative) 06/03/21 10:46 Acetaminophen < 5.0 ug/mL (10-30) L 06/03/21 11:30 Ur Barbiturates Screen Negative ng/mL (Negative) 06/03/21 10:46 Ur Phencyclidine Scrn Negative ng/mL (Negative) 06/03/21 10:46 Ur Amphetamines Screen Negative ng/mL (Negative) 06/03/21 10:46 U Benzodiazepines Scrn Negative ng/mL (Negative) 06/03/21 10:46 Urine Cocaine Screen Negative ng/mL (Negative) 06/03/21 10:46 U Marijuana (THC) Screen Negative ng/mL (Negative) 06/03/21 10:46 Ethyl Alcohol < 10 mg/dL (0-10) 06/03/21 11:30 Discharge Plan Discharge Patient Disposition: Admitted As Inpatient Admit Provider: Jag Escobar Clinical Impression: Suicidal ideation, Schizophrenia, Suicide attempt by drug overdose Condition: Stable Sign Out Sign Out Data: Patient Sign Out occurred on 06/03/21 at 14:45. Patient's care was discussed, and care was transferred from to Farhad Haas DO. Coding Level of Care Code ED Call Center Assistant for Chg 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
[2021-06-03 11:07] LABS: Add Urine Microscopic? YES; Bilirubin Urine 1+ (Negative); Blood Urine Neg (Negative); Glucose Urine UA Norm (Normal); Ketones Urine 1+ (Negative); Leukocyte Esterase Urine 1+ (Negative); Nitrate Urine Negative (Negative); Protein Urine 1+ (Negative); Specific Gravity, Urine 1.025 (1.005-1.030); Urine Appearance Clear (CLEAR); Urine Color Yellow (Yellow); Urobilinogen Urine 4 mg/dL (Negative); pH Urine 5 (5-7)
[2021-06-03 11:16] LABS: Add Urine Culture? No; Amphetamines Screen Urine Negative (Negative); Bacteria Urine 1+ /hpf; Barbiturates Screen Urine Negative (Negative); Benzodiazepines Screen Urine Negative (Negative); Cocaine Screen Urine Negative (Negative); Mucus Urine TRACE /hpf; Opiate Screen Urine Negative (Negative); PCP Screen Urine Negative (Negative); Squamous Epithelial Cell Urine 0-4 /hpf (0-5); THC Screen Urine Negative (Negative); WBC Urine 0-4 /hpf (0-5)
[2021-06-03 11:42] LABS: Basophils % 0.2 %; Eosinophils % 0.5 %; Hematocrit 45.6 % (42.0-52.0); Hemoglobin 15.2 g/dL (11.7-16.6); Lymphocytes # 1.1 10^3/uL (0.8-4.8); Lymphocytes % 13.6 %; Mean Corpuscular HGB Conc 33.3 g/dL (30.0-36.0); Mean Corpuscular Hemoglobin 27.3 pg (28.0-34.0); Mean Platelet Volume 9.7 fL (7.4-10.4); Monocytes # 0.5 10^3/uL (0.2-0.9); Monocytes % 5.6 %; Neutrophils # 6.68 10^3/uL (1.8-7.7); Neutrophils % 79.9 %; Nucleated Red Blood Cells % 0 %; Platelet Count 264 10^3/cmm (130-400); Red Blood Count 5.56 10^6/uL (4.1-5.3); Red Cell Distribution Width 12.6 % (12.1-15.1); White Blood Count 8.4 10^3/uL (4.0-10.0)
[2021-06-03 12:04] VITALS: BP 129/99; PULSE 96; RESP 16; O2SAT 93
[2021-06-03 12:10] LABS: Alanine Aminotransferase 8 U/L (0-41); Alkaline Phosphatase 85 IU/L (40-130); Aspartate Amino Transferase 16 U/L (0-40); Blood Urea Nitrogen 11 mg/dL (6-20); Calcium 9.7 mg/dL (8.5-10.5); Carbon Dioxide 21 mmol/L (22-29); Chloride 102 mmol/L (98-107); Creatinine Clr Calc Pharmacy 152.1682; Globulin 2.9 g/dL (1.3-4.6); Glomerular Filtration Rate 108.8 mL/min (90-130); Glucose 100 mg/dL (65-115); Magnesium 1.9 mg/dL (1.7-2.3); Osmolality Calculated 279 mOsm/kg (285-295); Sodium 135 mmol/L (136-145); Total Bilirubin 0.5 mg/dL (0.15-1.2); Total Protein 7.9 g/dL (6.6-8.7)
[2021-06-03 12:14] LABS: Acetaminophen < 5.0 ug/mL (10-30); Alcohol Level < 10 mg/dL (0-10); Salicylate < 0.3 mg/dL (3-10)
[2021-06-03 12:15] LABS: Anion Gap 16.3 (5-19); Potassium 4.3 mmol/L (3.5-5.1)
[2021-06-03 13:20] VITALS: BP 106/89; PULSE 92; RESP 16; O2SAT 94
--- NOTE | 2021-06-03 13:21 | PC.NURSE ---
Poison Control called to get report on pt. Poison control states case closing. Contact poison control if further questions arise.
[2021-06-03] MEDS: LORazepam 2 mg/mL INJ 1 mL IM (14:09)
[2021-06-03 15:03] VITALS: BP 105/67; PULSE 89; RESP 20; O2SAT 93
[2021-06-03 15:34] VITALS: BP 104/72; PULSE 87; RESP 19; TEMP 36.3; O2SAT 96
--- NOTE | 2021-06-03 17:34 | PC.NURSE ---
ADMISSION Patient is a 36-year-old male comes to the ED with SI. Past medical history of schizophrenia, cluster B personality disorder. he took approximately 60 25 mg Benadryl tablets at 3 AM this morning to try and kill himself. History of past suicide attempts. States he has been having some worsening depression and thoughts of SI past couple weeks. He says he hears voices in his head telling him to kill himself. He admits to hearing voices in his head for a while now. He says the medications he has been on in the past have not helped the voices. Patient says he is tired of being alive. He recently stopped taking Latuda due to cost. He endorses having poor sleep. Denies any HI. Here in the ED says he feels a little anxious and his mouth feels really dry. Endorses some blurry vision. Denies any nausea or vomiting. 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 FLAT AFFECT. CONTINUED SI BUT CONTRACTS FOR SAFETY. STATES THAT HIS INSURANCE QUIT COVERING HIS LATUDA AND THAT HE HAD TO STOP TAKING IT THEN. REPORTS THAT THAT IS WHEN THE RETURNED. NO SKIN ISSUES NOTED.
[2021-06-03 20:35] VITALS: BP 94/58; PULSE 86; RESP 18; TEMP 36.7; O2SAT 95
[2021-06-03] MEDS: chlorPROMazine 50 mg Tablet 250 MG PO (22:01)
[2021-06-03] MEDS: trazodone 100 mg Tablet PO (22:02)
[2021-06-04 06:00] VITALS: BP 102/67; PULSE 89; RESP 18; TEMP 36.7; O2SAT 93
--- NOTE | 2021-06-04 08:46 | PC.OT ---
OT EVALUATION ATTEMPTED. PATIENT SLEEPING SOUNDLY AND DOES NOT AWAKEN. WILL ATTEMPT AGAIN AT A LATER TIME
[2021-06-04 09:12] VITALS: BP 102/67
[2021-06-04] MEDS: aspirin 81 mg EC Tablet PO (09:12)
[2021-06-04] MEDS: CLONazepam 0.5 mg Tablet PO ×2 (09:12→15:13)
[2021-06-04] MEDS: nicotine 2 mg Gum BUCCAL ×4 (09:12→20:31)
[2021-06-04] MEDS: losartan 50 mg Tablet 25 MG PO (09:12)
[2021-06-04] MEDS: apixaban 5 mg Tablet PO ×2 (09:12→17:32)
[2021-06-04] MEDS: spironolactone 25 mg Tablet PO (09:12)
[2021-06-04] MEDS: carvedilol 6.25 mg Tablet 3.125 MG PO ×2 (09:13→17:30)
[2021-06-04 09:27] LABS: Basophils % 0.3 %; Eosinophils # 0.1 10^3/uL (0.0-0.8); Eosinophils % 1.6 %; Hematocrit 45.8 % (42.0-52.0); Hemoglobin 14.9 g/dL (11.7-16.6); Lymphocytes # 1.9 10^3/uL (0.8-4.8); Lymphocytes % 25.1 %; Mean Corpuscular HGB Conc 32.5 g/dL (30.0-36.0); Mean Corpuscular Hemoglobin 27.5 pg (28.0-34.0); Mean Corpuscular Volume 84.7 fl (80-94); Mean Platelet Volume 9.5 fL (7.4-10.4); Monocytes # 0.5 10^3/uL (0.2-0.9); Monocytes % 6.2 %; Neutrophils % 66.5 %; Nucleated Red Blood Cells % 0 %; Platelet Count 259 10^3/cmm (130-400); Red Blood Count 5.41 10^6/uL (4.1-5.3); Red Cell Distribution Width 12.9 % (12.1-15.1); White Blood Count 7.4 10^3/uL (4.0-10.0)
[2021-06-04 09:36] LABS: Alanine Aminotransferase 7 U/L (0-41); Albumin Level 4.9 g/dL (3.5-5.2); Alkaline Phosphatase 77 IU/L (40-130); Anion Gap 17.2 (5-19); Aspartate Amino Transferase 13 U/L (0-40); Blood Urea Nitrogen 11 mg/dL (6-20); Calcium 9.7 mg/dL (8.5-10.5); Carbon Dioxide 20 mmol/L (22-29); Chloride 107 mmol/L (98-107); Globulin 2.4 g/dL (1.3-4.6); Glucose 117 mg/dL (65-115); Osmolality Calculated 290 mOsm/kg (285-295); Potassium 4.2 mmol/L (3.5-5.1); Sodium 140 mmol/L (136-145); Total Bilirubin 0.4 mg/dL (0.15-1.2); Total Protein 7.3 g/dL (6.6-8.7)
[2021-06-04 14:00] VITALS: BP 105/69; PULSE 74; RESP 15; TEMP 36.7; O2SAT 97
--- NOTE | 2021-06-04 15:03 | W.PM.NPUH&PS ---
Providers/Chief Complaint Admitting Physician: Jag Escobar MD Chief Complaint: SI took like 60 benadrill HPI NPU History of Present Illness Shayan Dickson is a 36 year old male who is seen in the emergency department with the following report: Patient is a 36-year-old male comes to the ED with SI.? Past medical history of schizophrenia, cluster B personality disorder.? he took approximately 60 25 mg? Benadryl tablets at 3 AM this morning to try and kill himself.? History of past suicide attempts.? States he has been having some worsening depression and thoughts of SI past couple weeks.? He says he hears voices in his head telling him to kill himself.? He admits to hearing voices in his head for a while now.? He says the medications he has been on in the past have not helped the voices.? Patient says he is tired of being alive.? He recently stopped taking Latuda due to cost.? He endorses having poor sleep.? Denies any HI.? Here in the ED says he feels a little anxious and his mouth feels really dry.? Endorses some blurry vision. Denies any nausea or vomiting. Associated symptoms: Reports auditory hallucinations, depression and suicidal ideation; Deny homicidal ideation He was admitted to the neuropsychiatry unit for definitive treatment of these issues. He says that he did well for about 1 week after he left the hospital last time. Both his appointment for outpatient treatment as well as the hearing for his guardianship were delayed because of weather and he could not reschedule them. He ran out of Latuda and the voices became much worse and he became depressed and suicidal. He said that the insurance would not pay for the Latuda because it was written for 40 mg instead of 80 mg. He also could not get refills on the Suboxone and has been taking half a dose but then ran out of it 10 days ago. He has been admitted multiple times for suicide attempts some significantly more serious. Below is his most recent discharge summary. Diagnoses at Discharge Discharge Diagnosis (1) Heel sore: ?Status:?Acute (2) Hypotension: ?Status:?Acute (3) Chronic anticoagulation: ?Status:?Chronic ?Permanent problem details: mallorie (4) Pulmonary embolism: ?Status:?Chronic ?Qualifiers: ?Pulmonary embolism type:?other??Chronicity:?chronic??Acute cor pulmonale presence:?without acute cor pulmonale? Qualified Code(s):?I27.82 - Chronic pulmonary embolism (5) Intentional drug overdose: ?Status:?Acute (6) Schizophrenia: ?Status:?Chronic ?Qualifiers: ?Schizophrenia type:?unspecified? Qualified Code(s):?F20.9 - Schizophrenia, unspecified (7) Opiate misuse: ?Status:?Chronic (8) Suicide attempt by drug overdose: ?Status:?Acute (9) Psychosis: ?Status:?Chronic (10) Cluster B personality disorder: ?Status:?Chronic (11) Bipolar depression: ?Status:?Chronic Reason for Visit Reason for Visit:?? SI? Brief History: History of Present Illness Shayan Dickson is a 36 year old male who was admitted to our emergency department with the following report: Chief Complaint: Psychiatric Symptoms Stated Complaint: SI Time Seen by Provider: 04/16/21 15:13 Source: patient Mode of arrival: ambulatory Limitations: no limitations History of Present Illness:?? HPI Narrative: 36-year-old male presents to the ER after intentionally overdosing on multiple medications 2 hours prior to arrival.Approximate amounts below: Eliquis 5 mg, #30 Thorazine 50 mg, #60 Carvedilol 3.125mg #40 Lunesta 1 mg #20 Vistaril 25 mg #100 Clonazepam 0.5 mg #40 Denies coingestion of alcohol or other drugs. This is not the first time he has attempted suicide by overdose. MD complaint: suicidal ideation and feels depressed Associated symptoms: Reports auditory hallucinations, visual hallucinations, depression and suicidal ideation He was in the ICU for several days requiring pressor agents to keep his blood pressure up after the overdose.? Was transferred to psychiatry today for definitive treatment of these issues.? He has not required any medications for his blood pressure recently.? He said that he was doing great up until about 1 week prior to admission.? He had not been able to get into a doctor for Suboxone and since his discharge in late January he has only taken half dose of the Suboxone.? He had an appointment with a psychiatrist but his uncle had Lasix surgery and he missed that appointment.? He was told that he should have called and canceled the appointment and it might not have been counted against him as it is if he misses an appointment.? He has an appointment at a pain clinic in approximately 1 month and is hopeful that they will continue his Suboxone.? He feels like the Latuda 40 mg was working very well.? He said that it has really helped his mood. ?Unfortunately about 1 week ago he started hearing the voices again.? They gotten worse and worse and started causing anxiety.? They were telling him he should kill himself.? He is started just laying in bed becoming more and more depressed.? He took his whole bottle of Thorazine and it did make the voices go away but he thought that they would come back so he took all the other medications listed in order to try to kill himself.? He still wishes he had been successful.? He acknowledges that medication adjustments very well could be successful in making the voices go away.? They are very quiet now, probably because of all the Thorazine that she took.? He would like to increase his Thorazine to 250 or 300 mg.? We need to take it slow because he has not needed medications to support his blood pressure recently. Hospital Course Hospital Course He slowly acclimated to the individual, group and milieu therapies provided.? Thorazine was increased to 250 mg at bedtime and Latuda was increased to 80 mg daily he was continued on his outpatient medications.? Be hospital follow-up for guardianship and his guardianship hearing is about 1 week from discharge.? He tolerated these doses and showed steady improvement during his stay. ? He was able to contract for safety outside hospital prior to discharge.? During the hospitalization, patient had routine laboratory studies which were within normal limits except for few outliers.? Additionally there was a general medical evaluation which was also within normal limits and revealed no new acute processes. Discharge Summary: At the time of discharge, lethality was denied and psychosis was resolving.? Mood and anxiety were well managed.? Patient endorsed a plan to follow-up with the aftercare recommendations of the treatment team.? Patient was evaluated and deemed to be absent credible lethality, and had achieved the maximum benefit from an inpatient hospitalization, so was discharged. Involuntary Hold Information 96 Hour Hold:?? 96 Hour Involuntary Admission: No Mental Status Exam MSE Comments:?? this is a 36-year old overweight male who appears approximately his stated age and is in no acute distress.? His grooming is fair he is dressed in hospital scrubs with full hayes. psychomotor activity mildly decreased Speech is at a regular rate and rhythm, normal volume, good articulation, not pressured. Alert, oriented X3 Attention and concentration average. Memory is intact Mood is good? Affect is euthymic. Thought process is logical and goal-directed. Thought content:? Denies mild auditory hallucinations but no visual hallucinations.? No delusions or paranoia are noted.? No current suicidal ideation, and no homicidal ideation.? Fund of knowledge is average. Insight and judgment appear to be improved. Impulse control is improved. Cognition:?? Patient Appearance: Appropriate Level of Consciousness: Awake and Alert Patient Cognition Impaired: No Ability to Follow Directions: Good Patient Orientation (long list): Person, Place, Time, Name, Age, Birthday and Year Comprehension Ability: No Impairment Hallucination Type: None Delusion Description: Not Present Thought Process: Appropriate Affect:?? Affect Description: Appropriate Depressive Symptoms: Feelings of Worthlessness and Unhappiness Behavior:?? Patient Behavior: Appropriate Speech Pattern: Appropriate Discharge Data ? Discharge Plan Discharge Patient Disposition: Home Condition: Stable Prescriptions: New ? chlorpromazine 50 mg Tablet ?? 250 mg PO BEDTIME 7 Days Qty: 35 2RF ? chlorpromazine 50 mg Tablet ?? 50 mg PO Q4H PRN (Reason: Agitation) 7 Days Qty: 14 2RF ? hydroxyzine pamoate 25 mg Capsule ?? 50 mg PO Q6H PRN (Reason: Anxiety or Sleep) 7 Days Qty: 21 2RF ? Latuda 80 mg Tablet ?? 80 mg PO 1700 Qty: 0 0RF Continued ? aspirin [Adult Low Dose Aspirin] 81 mg tablet,delayed release (DR/EC) ?? 81 mg PO DAILY 0RF ? carvedilol 3.125 mg tablet ?? 3.125 mg PO BID Qty: 60 3RF ?? Rx Instructions: ?? must administer with a meal/food ? chlorpromazine 50 mg tablet ?? 150 mg PO BEDTIME 30 Days Qty: 90 1RF ? hydroxyzine pamoate 25 mg capsule ?? 50 mg PO Q6H PRN (Reason: Anxiety or Sleep) 30 Days Qty: 180 1RF ? losartan 25 mg tablet ?? 25 mg PO DAILY Qty: 30 2RF ? spironolactone 25 mg tablet ?? 25 mg PO DAILY Qty: 30 3RF ? trazodone 100 mg tablet ?? 100 mg PO BEDTIME PRN (Reason: Insomnia) 30 Days Qty: 30 1RF ? clonazepam 0.5 mg tablet ?? 0.5 mg PO BID@, 7 Days Qty: 14 2RF ? Lunesta 1 mg tablet ?? 1 mg PO BEDTIME 7 Days Qty: 7 2RF ? Eliquis 5 mg tablet ?? 5 mg PO BID 7 Days Qty: 14 2RF Discontinued ? Latuda 20 mg tablet ?? 40 mg PO 1700 30 Days Qty: 60 1RF Discharge Orders: Discharge Order? (Routine); Ordered 05/13/21 ?? Ordered By:? Noel House Referrals: [facility] [Outside] - 05/01/21 11:30 am (Initial assessment) Discharge Diet: Regular Discharge Activity: Resume usual activity Patient Instructions:? Opioid Safety Meds NPU Home Medications Medication Instructions Recorded Confirmed Last Taken Type aspirin 81 mg tablet,delayed 81 mg PO DAILY 04/06/21 06/03/21 Unknown History release (Adult Low Dose Aspirin) carvedilol 3.125 mg tablet 3.125 mg PO BID #60 tab 04/06/21 06/03/21 06/02/21 21:00 Rx losartan 25 mg tablet 25 mg PO DAILY #30 tab 04/06/21 06/03/21 06/02/21 Rx spironolactone 25 mg tablet 25 mg PO DAILY #30 tab 04/06/21 06/03/21 Unknown Rx trazodone 100 mg tablet 100 mg PO BEDTIME PRN 30 Days #30 04/06/21 06/03/21 06/02/21 Rx tab apixaban 5 mg tablet (Eliquis) 5 mg PO BID 7 Days #14 tab 05/13/21 06/03/21 06/02/21 21:00 Rx chlorpromazine 50 mg tablet 50 mg PO Q4H PRN 7 Days #14 tab 05/13/21 06/03/21 Unknown Rx chlorpromazine 50 mg tablet 250 mg PO BEDTIME 7 Days #35 tab 05/13/21 06/03/21 06/02/21 Rx clonazepam 0.5 mg tablet 0.5 mg PO BID@,21 7 Days #14 tab 05/13/21 06/03/21 06/02/21 21:00 Rx eszopiclone 1 mg tablet (Lunesta) 1 mg PO BEDTIME 7 Days #7 tab 05/13/21 06/03/21 06/02/21 Rx hydroxyzine pamoate 25 mg capsule 50 mg PO Q6H PRN 7 Days #21 cap 05/13/21 06/03/21 06/02/21 21:00 Rx lurasidone 80 mg tablet (Latuda) 80 mg PO 1700 #0 tab 05/13/21 06/03/21 06/02/21 Rx Allergies Allergy/AdvReac Type Severity Reaction Status Date / Time mushroom Allergy Unknown Unknown Verified 06/02/21 17:59 escitalopram [From Lexapro] Allergy ALGY-Anaphy Verified 06/02/21 17:59 laxis NSAIDS (Non-Steroidal Allergy ADR-Abdominal Verified 06/02/21 17:59 Anti-Inflamma Pain venlafaxine [From Effexor] Allergy ALGY-Anaphy Verified 06/02/21 17:59 laxis PFSH NPU PFSH: Medical History Acute pancreatitis (~12/2020) History of cardiovascular stress test (~01/2021) History of foreign body ingestion intentional, requiring invasive intervention Opiate misuse QT prolongation history of medication induced QT prolongation Schizophrenia Suicide attempt Ulcerative colitis Surgical History History of appendectomy History of esophagogastroduodenoscopy (EGD) Social History Smoking and tobacco status: current every day smoker Alcohol intake: current Mental Status Exam MSE Comments: This is a 36-year-old overweight male who appears approximately his stated age and is in no acute distress. He is pleasant and cooperative. He has a full hayes and but is fairly well groomed in hospital scrubs psychomotor activity average. Speech is at a regular rate and rhythm, normal volume, good articulation, not pressured. Alert, oriented X3 Attention and concentration appears to be intact. Memory is intact Mood is depressed. Affect is somewhat blunted. Thought process is logical and goal-directed. Thought content: He reports problematic auditory hallucinations but denies visual hallucinations. No delusions or paranoia are noted. No current suicidal ideation, and no homicidal ideation. Fund of knowledge is average. Insight and judgment appear to be impaired. Impulse control is impaired. Vitals/I&O/Wt Last Vital Signs Temp 98.0 F 06/04/21 14:00 Pulse 74 06/04/21 14:00 Resp 15 06/04/21 14:00 BP 105/69 06/04/21 14:00 Pulse Ox 97 06/04/21 14:00 Weight last 48 hrs Weight 99.79 kg Data NPU : 06/04/21 09:00 06/04/21 09:00 A&P Assessment and plan (1) Schizophrenia: Status: Chronic Qualifiers: Schizophrenia type: unspecified Qualified Code(s): F20.9 - Schizophrenia, unspecified (2) Opiate misuse: Status: Chronic (3) Suicide attempt by drug overdose: Status: Acute (4) Cluster B personality disorder: Status: Chronic Plan This is a 36-year-old male with schizophrenia and cluster B personality disorder with multiple recent suicide attempts. He was scheduled for a guardianship hearing but it was canceled because of the weather and not rescheduled. He ran out of his Latuda and became more psychotic and attempted suicide again Plan: 1. Continue current outpatient medication. 2. Continue every 15 minute checks for safety. 3. Encourage individual, group and milieu therapies. 4. Encourage sober living treatment after discharge at the highest level of care to which he is willing to commit. 5. We will monitor for safety for himself in the community prior to discharge. 6. Reschedule guardianship hearing. Involuntary Hold Information 96 Hour Hold: 96 Hour Involuntary Admission: No Attestations NPU Medical Necessity Statement*: Inpatient hospitalization is medically necessary and the clinically appropriate intervention at this time. We will initiate medications and make changes as indicated. He will be in the hospital for over 2 midnights. 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
[2021-06-04] MEDS: buprenorphine-naloxone 4-1 mg Film 2 EACH SUBLINGUAL ×2 (15:14→18:50)
[2021-06-04] MEDS: lurasidone 80 mg Tablet PO (16:33)
[2021-06-04] MEDS: hyDROXYzine 25 mg Capsule 50 MG PO (17:31)
[2021-06-04 19:00] VITALS: BP 106/71; PULSE 100; RESP 18; TEMP 36.9; O2SAT 93
[2021-06-04] MEDS: chlorPROMazine 50 mg Tablet 250 MG PO (20:29)
[2021-06-04] MEDS: zolpidem 5 mg Tablet 10 MG PO (20:29)
[2021-06-04] MEDS: trazodone 100 mg Tablet PO (20:33)
[2021-06-05 06:00] VITALS: BP 93/57; PULSE 69; RESP 18; TEMP 36.4; O2SAT 97
[2021-06-05] MEDS: buprenorphine-naloxone 4-1 mg Film 2 EACH SUBLINGUAL ×2 (06:12→18:18)
[2021-06-05] MEDS: losartan 50 mg Tablet 25 MG PO (08:33)
[2021-06-05] MEDS: apixaban 5 mg Tablet PO ×2 (08:34→17:01)
[2021-06-05] MEDS: spironolactone 25 mg Tablet PO (08:34)
[2021-06-05] MEDS: carvedilol 6.25 mg Tablet 3.125 MG PO ×2 (08:34→17:01)
[2021-06-05] MEDS: nicotine 2 mg Gum BUCCAL ×6 (08:34→20:08)
[2021-06-05] MEDS: benztropine 1 mg Tablet PO (08:34)
[2021-06-05] MEDS: CLONazepam 0.5 mg Tablet PO ×2 (08:35→12:26)
[2021-06-05] MEDS: aspirin 81 mg EC Tablet PO (08:35)
[2021-06-05] MEDS: hyDROXYzine 25 mg Capsule 50 MG PO (10:50)
[2021-06-05] MEDS: OLANZapine 5 mg ODT PO (12:26)
[2021-06-05] MEDS: chlorPROMazine 50 mg Tablet PO (13:31)
[2021-06-05 13:46] VITALS: BP 111/80; PULSE 114; RESP 18; TEMP 36.8; O2SAT 96
--- NOTE | 2021-06-05 14:12 | W.PM.NPUPNS ---
Subjective NPU Subjective: He says that the hallucinations are still about the same. He is concerned about the Latuda was his insurance will not pay for it because Bryan said he needed a prior authorization again. He tried Zyprexa but it does not do anything for him. He got Thorazine 50 mg as needed and is hoping it will work. He did not realize that it was available for him before. His Suboxone is working well. He does not want to go back with his alcohol. The medication causes stress. His girlfriend is a nurse and sometimes decides that he only needs 3 of the Thorazine instead of 5. His uncle and girlfriend thinks that he really does not need medication but should just praying will take God will take care of this illness. He would like to stay here until his guardianship hearing. Mental Status Exam MSE Comments: This is a 36-year-old overweight male who appears approximately his stated age and is in no acute distress. He is pleasant and cooperative. He has a full hayes and but is fairly well groomed in hospital scrubs psychomotor activity average. Speech is at a regular rate and rhythm, normal volume, good articulation, not pressured. Alert, oriented X3 Attention and concentration appears to be intact. Memory is intact Mood is depressed. Affect is somewhat blunted. Thought process is logical and goal-directed. Thought content: He reports problematic auditory hallucinations but denies visual hallucinations. No delusions or paranoia are noted. No current suicidal ideation, and no homicidal ideation. Fund of knowledge is average. Insight and judgment appear to be impaired. Impulse control is impaired. Cognition: Patient Appearance: Appropriate Level of Consciousness: Awake and Alert Patient Cognition Impaired: No Ability to Follow Directions: Good Patient Orientation (long list): Person, Place, Name, Age and Birthday Comprehension Ability: Understands Concepts Hallucination Type: None Delusion Description: Not Present Thought Process: Appropriate Affect: Affect Description: [place], Calm and Depressed Depressive Symptoms: Changes in Appetite, Difficulty Sleeping and Unhappiness Behavior: Patient Behavior: Appropriate and Withdrawn Speech Pattern: Appropriate and Clear Vitals/I&O/Wt Last Vital Signs Temp 98.2 F 06/05/21 13:46 Pulse 114 H 06/05/21 13:46 Resp 18 06/05/21 13:46 BP 111/80 06/05/21 13:46 Pulse Ox 96 06/05/21 13:46 Data NPU : 06/04/21 09:00 06/04/21 09:00 A&P Assessment and plan (1) Schizophrenia: Status: Chronic Qualifiers: Schizophrenia type: unspecified Qualified Code(s): F20.9 - Schizophrenia, unspecified (2) Opiate misuse: Status: Chronic (3) Suicide attempt by drug overdose: Status: Acute (4) Cluster B personality disorder: Status: Chronic Plan This is a 36-year-old male with schizophrenia and cluster B personality disorder with multiple recent suicide attempts. He was scheduled for a guardianship hearing but it was canceled because of the weather and not rescheduled. He ran out of his Latuda and became more psychotic and attempted suicide again Plan: 1. Continue current outpatient medication. 2. Continue every 15 minute checks for safety. 3. Encourage individual, group and milieu therapies. 4. Encourage sober living treatment after discharge at the highest level of care to which he is willing to commit. 5. We will monitor for safety for himself in the community prior to discharge. 6. Reschedule guardianship hearing. Involuntary Hold Information 96 Hour Hold: 96 Hour Involuntary Admission: No Attestations NPU Medical Necessity Statement*: Inpatient hospitalization is medically necessary and the clinically appropriate intervention at this time. We will initiate medications and make changes as indicated. 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
[2021-06-05] MEDS: haloperidol 5 mg Tablet PO (14:56)
[2021-06-05] MEDS: lurasidone 80 mg Tablet PO (17:01)
[2021-06-05 19:28] VITALS: BP 120/78; PULSE 87; RESP 17; TEMP 36.6; O2SAT 96
[2021-06-05] MEDS: zolpidem 5 mg Tablet 10 MG PO (20:05)
[2021-06-05] MEDS: trazodone 100 mg Tablet PO (20:05)
[2021-06-05] MEDS: chlorPROMazine 50 mg Tablet 250 MG PO (20:05)
[2021-06-05 22:00] VITALS: BP 120/78; PULSE 87; RESP 17; TEMP 36.6; O2SAT 96
[2021-06-06 06:00] VITALS: BP 104/68; PULSE 68; RESP 17; TEMP 36.4; O2SAT 95
[2021-06-06] MEDS: buprenorphine-naloxone 4-1 mg Film 2 EACH SUBLINGUAL ×2 (06:36→18:22)
[2021-06-06 08:29] VITALS: BP 104/68
[2021-06-06] MEDS: losartan 50 mg Tablet 25 MG PO (08:29)
[2021-06-06] MEDS: carvedilol 6.25 mg Tablet 3.125 MG PO ×2 (08:30→17:07)
[2021-06-06] MEDS: CLONazepam 0.5 mg Tablet PO ×2 (08:30→12:52)
[2021-06-06] MEDS: aspirin 81 mg EC Tablet PO (08:31)
[2021-06-06] MEDS: nicotine 2 mg Gum BUCCAL ×5 (08:31→18:22)
[2021-06-06] MEDS: apixaban 5 mg Tablet PO ×2 (08:31→17:08)
[2021-06-06] MEDS: spironolactone 25 mg Tablet PO (08:31)
--- NOTE | 2021-06-06 10:00 | PC.NURSE ---
Am assessment Patient is resting quietly in bed. He awakens easily to verbal stimuli. He denies HI. He does endorse auditory hallucinations that are telling him to kill himself. He endorses safety on the unit. He is alert and oriented in all aspects. Hr regular with ppp x 2, no edema noted. Lungs clear with breathing even and nonlabored. Bowel sounds active in all quads. Denies pain with urination. Denies all other pain. Skin is warm and dry.
[2021-06-06] MEDS: haloperidol 5 mg Tablet PO (10:29)
--- NOTE | 2021-06-06 10:50 | W.PM.NPUPNS ---
Subjective NPU Subjective: He says that he is feeling better. Voices continued unchangedbut he is less anxious. Pain informed him that I had called the [facility] in [facility] who had required the prior authorization for his Latuda. They said it was because he had been written for 2 tablets daily and that they were confident that it was prescribed 80 mg tablets once daily that it would be approved by his insurance. He was relieved to hear that. Mental Status Exam MSE Comments: This is a 36-year-old overweight male who appears approximately his stated age and is in no acute distress. He is pleasant and cooperative. He has a full hayes and but is fairly well groomed in hospital scrubs psychomotor activity average. Speech is at a regular rate and rhythm, normal volume, good articulation, not pressured. Alert, oriented X3 Attention and concentration appears to be intact. Memory is intact Mood is depressed. Affect is somewhat blunted. Thought process is logical and goal-directed. Thought content: He reports problematic auditory hallucinations but denies visual hallucinations. No delusions or paranoia are noted. No current suicidal ideation, and no homicidal ideation. Fund of knowledge is average. Insight and judgment appear to be impaired. Impulse control is impaired. Cognition: Patient Appearance: Appropriate Level of Consciousness: Awake and Alert Patient Cognition Impaired: No Ability to Follow Directions: Good Patient Orientation (long list): Person, Place, Time, Name, Age, Birthday, Day of Month, Day of Week, Month, Time of Day and Year Comprehension Ability: Understands Concepts Hallucination Type: Auditory Delusion Description: Not Present Thought Process: Appropriate Affect: Affect Description: Appropriate Depressive Symptoms: Changes in Appetite, Difficulty Sleeping and Unhappiness Behavior: Patient Behavior: Appropriate and Cooperative Speech Pattern: Appropriate and Clear Vitals/I&O/Wt Last Vital Signs Temp 97.6 F 06/06/21 06:00 Pulse 68 06/06/21 06:00 Resp 17 06/06/21 06:00 BP 104/68 06/06/21 08:29 Pulse Ox 95 06/06/21 06:00 Data NPU : 06/04/21 09:00 06/04/21 09:00 A&P Assessment and plan (1) Schizophrenia: Status: Chronic Qualifiers: Schizophrenia type: unspecified Qualified Code(s): F20.9 - Schizophrenia, unspecified (2) Opiate misuse: Status: Chronic (3) Suicide attempt by drug overdose: Status: Acute (4) Cluster B personality disorder: Status: Chronic Plan This is a 36-year-old male with schizophrenia and cluster B personality disorder with multiple recent suicide attempts. He was scheduled for a guardianship hearing but it was canceled because of the weather and not rescheduled. He ran out of his Latuda and became more psychotic and attempted suicide again Plan: 1. Continue current outpatient medication. 2. Continue every 15 minute checks for safety. 3. Encourage individual, group and milieu therapies. 4. Encourage sober living treatment after discharge at the highest level of care to which he is willing to commit. 5. We will monitor for safety for himself in the community prior to discharge. 6. Reschedule guardianship hearing. Involuntary Hold Information 96 Hour Hold: 96 Hour Involuntary Admission: No Attestations NPU Medical Necessity Statement*: Inpatient hospitalization is medically necessary and the clinically appropriate intervention at this time. We will initiate medications and make changes as indicated. 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
[2021-06-06] MEDS: hyDROXYzine 25 mg Capsule 50 MG PO (11:15)
[2021-06-06 14:00] VITALS: BP 111/74; PULSE 98; RESP 18; TEMP 36.8; O2SAT 95
[2021-06-06] MEDS: chlorPROMazine 50 mg Tablet PO (14:28)
[2021-06-06] MEDS: lurasidone 80 mg Tablet PO (16:47)
[2021-06-06] MEDS: zolpidem 5 mg Tablet 10 MG PO (20:26)
[2021-06-06] MEDS: trazodone 100 mg Tablet PO (20:26)
[2021-06-06] MEDS: chlorPROMazine 50 mg Tablet 250 MG PO (20:26)
[2021-06-07 05:53] VITALS: BP 114/74; PULSE 94; RESP 18; TEMP 36.8; O2SAT 95; BMI 30.8
[2021-06-07] MEDS: buprenorphine-naloxone 4-1 mg Film 2 EACH SUBLINGUAL ×2 (06:16→18:20)
[2021-06-07] MEDS: apixaban 5 mg Tablet PO ×2 (08:10→17:25)
[2021-06-07] MEDS: carvedilol 6.25 mg Tablet 3.125 MG PO ×2 (08:10→17:25)
[2021-06-07] MEDS: CLONazepam 0.5 mg Tablet PO ×3 (08:10→17:25)
[2021-06-07 08:11] VITALS: BP 114/74
[2021-06-07] MEDS: losartan 50 mg Tablet 25 MG PO (08:11)
[2021-06-07] MEDS: aspirin 81 mg EC Tablet PO (08:11)
[2021-06-07] MEDS: spironolactone 25 mg Tablet PO (08:11)
[2021-06-07] MEDS: nicotine 2 mg Gum BUCCAL ×6 (08:11→20:27)
--- NOTE | 2021-06-07 10:14 | W.PM.NPUPNS ---
Subjective NPU Subjective: He said that the hallucinations are finally decreasing somewhat today. He had suicidal ideation yesterday but not so far today. He continues to want to stay here until his guardianship hearing. We should find out tomorrow when that will be. Mental Status Exam MSE Comments: This is a 36-year-old overweight male who appears approximately his stated age and is in no acute distress. He is pleasant and cooperative. He has a full hayes and but is fairly well groomed in hospital scrubs psychomotor activity average. Speech is at a regular rate and rhythm, normal volume, good articulation, not pressured. Alert, oriented X3 Attention and concentration appears to be intact. Memory is intact Mood is depressed but a little better. Affect is somewhat blunted. Thought process is logical and goal-directed. Thought content: He reports problematic auditory hallucinations that are a little better but denies visual hallucinations. No delusions or paranoia are noted. No current suicidal ideation, and no homicidal ideation. Fund of knowledge is average. Insight and judgment appear to be impaired. Impulse control is impaired. Cognition: Patient Appearance: Appropriate Level of Consciousness: Awake and Alert Patient Cognition Impaired: No Ability to Follow Directions: Good Patient Orientation (long list): Person, Place, Time, Name, Age, Birthday, Day of Month, Day of Week, Month, Time of Day and Year Comprehension Ability: Understands Concepts Hallucination Type: Auditory Delusion Description: Not Present Thought Process: Appropriate and Logical Affect: Affect Description: [place], Depressed and Flat Depressive Symptoms: Changes in Appetite, Difficulty Sleeping and Unhappiness Behavior: Patient Behavior: Appropriate and Cooperative Speech Pattern: Appropriate and Clear Vitals/I&O/Wt Last Vital Signs Temp 98.3 F 06/07/21 05:53 Pulse 94 06/07/21 05:53 Resp 18 06/07/21 05:53 BP 114/74 06/07/21 08:11 Pulse Ox 95 06/07/21 05:53 Weight last 48 hrs Weight 100.244 kg Data NPU : 06/04/21 09:00 06/04/21 09:00 A&P Assessment and plan (1) Schizophrenia: Status: Chronic Qualifiers: Schizophrenia type: unspecified Qualified Code(s): F20.9 - Schizophrenia, unspecified (2) Opiate misuse: Status: Chronic (3) Suicide attempt by drug overdose: Status: Acute (4) Cluster B personality disorder: Status: Chronic Plan This is a 36-year-old male with schizophrenia and cluster B personality disorder with multiple recent suicide attempts. He was scheduled for a guardianship hearing but it was canceled because of the weather and not rescheduled. He ran out of his Latuda and became more psychotic and attempted suicide again Plan: 1. Continue current outpatient medication. 2. Continue every 15 minute checks for safety. 3. Encourage individual, group and milieu therapies. 4. Encourage sober living treatment after discharge at the highest level of care to which he is willing to commit. 5. We will monitor for safety for himself in the community prior to discharge. 6. Reschedule guardianship hearing. He will stay here until the hearing. Involuntary Hold Information 96 Hour Hold: 96 Hour Involuntary Admission: No Attestations U Medical Necessity Statement*: Inpatient hospitalization is medically necessary and the clinically appropriate intervention at this time. We will initiate medications and make changes as indicated. Coding Level of Care Code Acute Fur Repairer for Jordan Craft Diagnoses Schizophrenia F20.9 Schizophrenia type: unspecified Opiate misuse F11.90 Suicide attempt by drug overdose T50.902A Cluster B personality disorder F60.89
[2021-06-07] MEDS: chlorPROMazine 50 mg Tablet PO (11:12)
[2021-06-07] MEDS: hyDROXYzine 25 mg Capsule 50 MG PO (13:29)
[2021-06-07 13:46] VITALS: BP 99/54; PULSE 103; RESP 18; TEMP 37; O2SAT 96
[2021-06-07] MEDS: haloperidol 5 mg Tablet PO ×2 (14:38→15:58)
[2021-06-07] MEDS: OLANZapine 5 mg ODT PO (15:41)
[2021-06-07] MEDS: lurasidone 80 mg Tablet PO (17:24)
[2021-06-07 20:09] VITALS: BP 98/62; PULSE 84; RESP 18; TEMP 36.5; O2SAT 93
[2021-06-07] MEDS: trazodone 100 mg Tablet PO (20:26)
[2021-06-07] MEDS: zolpidem 5 mg Tablet 10 MG PO (20:27)
[2021-06-07] MEDS: chlorPROMazine 50 mg Tablet 250 MG PO (20:27)
[2021-06-08 06:00] VITALS: BP 98/62; PULSE 84; RESP 18; TEMP 36.4; O2SAT 95
[2021-06-08] MEDS: buprenorphine-naloxone 4-1 mg Film 2 EACH SUBLINGUAL ×2 (07:22→18:32)
[2021-06-08 08:49] VITALS: BP 98/62
[2021-06-08] MEDS: losartan 50 mg Tablet 25 MG PO (08:49)
[2021-06-08] MEDS: spironolactone 25 mg Tablet PO (08:50)
[2021-06-08] MEDS: apixaban 5 mg Tablet PO ×2 (08:50→17:01)
[2021-06-08] MEDS: aspirin 81 mg EC Tablet PO (08:50)
[2021-06-08] MEDS: carvedilol 6.25 mg Tablet 3.125 MG PO ×2 (08:50→17:01)
[2021-06-08] MEDS: nicotine 2 mg Gum BUCCAL ×5 (08:58→20:14)
[2021-06-08] MEDS: CLONazepam 0.5 mg Tablet PO ×2 (09:02→13:04)
--- NOTE | 2021-06-08 09:05 | PC.NURSE ---
Am assessment Patient is resting quietly with am assessment. He is alert and oriented in all aspects. He denies pain. He does endorses SI with voices telling him to hurt himself. He denies HI. Hr regular with ppp x 2, no edema noted. Lungs clear with breathing even and non labored. Bowel sounds active in all quads. Denies pain with urination. Skin is warm and dry.
[2021-06-08] MEDS: hyDROXYzine 25 mg Capsule 50 MG PO (10:22)
--- NOTE | 2021-06-08 10:23 | PC.NURSE ---
Prn note Patient c/o increase in anxiety. Vistaril given for anxiety.
--- NOTE | 2021-06-08 10:28 | W.PM.NPUPNS ---
Subjective NPU Subjective: The voices were worse yesterday afternoon and he was having more thoughts of suicide. He took a Thorazine 50 mg but it did not do much. He then took Haldol 5 mg and that seemed to help calm him down. He would like to temporarily increase his as needed Thorazine to 100 mg. He has not had thoughts about actually harming himself while he has been here. He continues to feel that it is most appropriate for him to stay here until his guardianship hearing clinic and go to a structured facility. Mental Status Exam MSE Comments: This is a 36-year-old overweight male who appears approximately his stated age and is in no acute distress. He is pleasant and cooperative. He has a full hayes and but is fairly well groomed in hospital scrubs psychomotor activity is normal. Speech is at a regular rate and rhythm, normal volume, good articulation, not pressured. Alert, oriented X3 Attention and concentration appears to be intact. Memory is intact Mood is depressed but a little better. Affect is somewhat blunted. Thought process is logical and goal-directed. Thought content: He reports problematic auditory hallucinations that are a little worse yesterday evening and today but denies visual hallucinations. No delusions or paranoia are noted. He has been having some suicidal ideation last night and this morning and no homicidal ideation. Fund of knowledge is average. Insight and judgment appear to be impaired. Impulse control is impaired. Cognition: Patient Appearance: Appropriate Level of Consciousness: Awake and Alert Patient Cognition Impaired: No Ability to Follow Directions: Good Patient Orientation (long list): Person, Place, Time, Name, Age, Birthday, Day of Month, Day of Week, Month, Time of Day and Year Comprehension Ability: Understands Concepts Hallucination Type: None Delusion Description: Not Present Thought Process: Appropriate and Logical Affect: Affect Description: Calm Depressive Symptoms: Changes in Appetite, Difficulty Sleeping and Unhappiness Behavior: Patient Behavior: Cooperative Speech Pattern: Clear Vitals/I&O/Wt Last Vital Signs Temp 97.5 F L 06/08/21 06:00 Pulse 84 06/08/21 06:00 Resp 18 06/08/21 06:00 BP 98/62 06/08/21 08:49 Pulse Ox 95 06/08/21 06:00 Weight last 48 hrs Weight 100.244 kg Data NPU : 06/04/21 09:00 06/04/21 09:00 A&P Assessment and plan (1) Schizophrenia: Status: Chronic (2) Opiate misuse: Status: Chronic (3) Suicide attempt by drug overdose: Status: Acute (4) Cluster B personality disorder: Status: Chronic Plan This is a 36-year-old male with schizophrenia and cluster B personality disorder with multiple recent suicide attempts. He was scheduled for a guardianship hearing but it was canceled because of the weather and not rescheduled. He ran out of his Latuda and became more psychotic and attempted suicide again Plan: 1. Continue current outpatient medication. Temporarily increase as needed Thorazine to 100 mg Q4H 4 2. Continue every 15 minute checks for safety. 3. Encourage individual, group and milieu therapies. 4. Encourage sober living treatment after discharge at the highest level of care to which he is willing to commit. 5. We will monitor for safety for himself in the community prior to discharge. 6. Reschedule guardianship hearing. He will stay here until the hearing. Involuntary Hold Information 96 Hour Hold: 96 Hour Involuntary Admission: No Attestations NPU Medical Necessity Statement*: Inpatient hospitalization is medically necessary and the clinically appropriate intervention at this time. We will initiate medications and make changes as indicated. Coding Level of Care Code Acute Data Technical Lead for Jordan Fwkaitlin Diagnoses Schizophrenia F20.9 Opiate misuse F11.90 Suicide attempt by drug overdose T50.902A Cluster B personality disorder F60.89
[2021-06-08] MEDS: chlorPROMazine 50 mg Tablet 100 MG PO (11:16)
--- NOTE | 2021-06-08 11:42 | NPU.GN ---
[facility] Topic:Hai Mary General Mood of Group: Jan did attend group. He was social and seemed mentally stable. Hygiene was ok.
[2021-06-08 14:00] VITALS: BP 90/55; PULSE 88; RESP 18; TEMP 36.6; O2SAT 94
[2021-06-08] MEDS: lurasidone 80 mg Tablet PO (17:01)
[2021-06-08 20:08] VITALS: BP 105/70; PULSE 101; RESP 20; TEMP 36.3; O2SAT 97
[2021-06-08] MEDS: chlorPROMazine 50 mg Tablet 250 MG PO (20:14)
[2021-06-08] MEDS: trazodone 100 mg Tablet PO (20:14)
[2021-06-08] MEDS: zolpidem 5 mg Tablet 10 MG PO (20:14)
--- NOTE | 2021-06-08 20:15 | PC.NURSE ---
PT REQUESTED HIS 100MG OF TRAZODONE TO BE GIVEN WITH [facility] MED[facility].
--- NOTE | 2021-06-08 21:30 | PC.NURSE ---
PT RESTING QUIETLY IN HIS ROOM WITH BOTH EYES CLOSED.
[2021-06-09 06:00] VITALS: BP 85/53; PULSE 88; RESP 17; TEMP 36.1; O2SAT 97
[2021-06-09] MEDS: nicotine 2 mg Gum BUCCAL ×6 (06:19→21:25)
[2021-06-09] MEDS: buprenorphine-naloxone 4-1 mg Film 2 EACH SUBLINGUAL ×2 (06:19→18:17)
[2021-06-09 09:45] VITALS: BP 85/53
[2021-06-09] MEDS: losartan 50 mg Tablet 25 MG PO (09:45)
[2021-06-09] MEDS: aspirin 81 mg EC Tablet PO (09:45)
[2021-06-09] MEDS: CLONazepam 0.5 mg Tablet PO ×2 (09:46→12:42)
[2021-06-09] MEDS: apixaban 5 mg Tablet PO ×2 (09:46→20:59)
[2021-06-09] MEDS: spironolactone 25 mg Tablet PO (09:46)
[2021-06-09] MEDS: carvedilol 6.25 mg Tablet 3.125 MG PO ×2 (09:46→20:59)
[2021-06-09] MEDS: chlorPROMazine 50 mg Tablet 100 MG PO ×2 (10:44→16:11)
--- NOTE | 2021-06-09 10:44 | PC.NURSE ---
PRN THORAZINE 100 MG GIVEN PO PER PT REQUEST AND C/O AGITATION. PT CONT TO ASK FOR ANY AND ALL MEDICATIONS HE CAN HAVE, MED SEEKING BEHAVIORS. PT HAS FLAT AFFECT. TOLD THIS NURSE HE WAS HEARING VOICES THAT TELL HIM TO KILL HIMSELF. PT DENIES ANY PLAN TO HURT HIMSELF, DID CONTRACT FOR SAFETY WHILE ON UNIT. STAFF WILL CONT TO MONITOR CLOSELY
--- NOTE | 2021-06-09 11:20 | NPU.GN ---
[facility] Topic: [place] General Mood of Group: Jan did not attend group today.
--- NOTE | 2021-06-09 12:55 | P.NPUPN_ITS ---
Subjective NPU Subjective: He says that the auditory hallucinations are decreased by about 45% daily. Significantly improved. He took Thorazine 100 mg as needed yesterday afternoon and again this morning with benefit. He says that he does not too sedating. He was told that we should consider reducing it back to 50 mg before he leaves. We will thought about it is that he gets closer. The court date has still not been reset. Mental Status Exam MSE Comments: This is a 36-year-old overweight male who appears approximately his stated age and is in no acute distress. He is pleasant and cooperative. He has a full hayes and but is fairly well groomed in hospital scrubs psychomotor activity is normal. Speech is at a regular rate and rhythm, normal volume, good articulation, not pressured. Alert, oriented X3 Attention and concentration appears to be intact. Memory is intact Mood is depressed but significantly better. Affect is somewhat blunted. Thought process is logical and goal-directed. Thought content: He reports auditory hallucinations are significantly improved, about 50%. Denies visual hallucinations. No delusions or paranoia are noted. He has not been having some suicidal ideation last night and this morning and no homicidal ideation. Fund of knowledge is average. Insight and judgment appear to be impaired. Impulse control is impaired. Cognition: Patient Appearance: Disheveled/Poor Hygiene Level of Consciousness: Awake and Alert Patient Cognition Impaired: No Ability to Follow Directions: Good Patient Orientation (long list): Person, Place, Time, Name, Age, Birthday, Day of Month, Day of Week, Month, Time of Day and Year Comprehension Ability: Understands Concepts Hallucination Type: Auditory Delusion Description: Persecutory Thought Process: Logical and Tangential Affect: Affect Description: Flat Depressive Symptoms: Changes in Appetite, Difficulty Sleeping and Unhappiness Behavior: Patient Behavior: Somatic Speech Pattern: Clear Vitals/I&O/Wt Last Vital Signs Temp 97 F L 06/09/21 06:00 Pulse 88 06/09/21 06:00 Resp 17 06/09/21 06:00 BP 85/53 06/09/21 09:45 Pulse Ox 97 06/09/21 06:00 Data NPU : 06/04/21 09:00 06/04/21 09:00 A&P Assessment and plan (1) Schizophrenia: Status: Chronic (2) Opiate misuse: Status: Chronic (3) Suicide attempt by drug overdose: Status: Acute (4) Cluster B personality disorder: Status: Chronic Plan This is a 36-year-old male with schizophrenia and cluster B personality disorder with multiple recent suicide attempts. He was scheduled for a guardianship hearing but it was canceled because of the weather and not rescheduled. He ran out of his Latuda and became more psychotic and attempted suicide again Plan: 1. Continue current outpatient medication. Temporarily increase as needed Thorazine to 100 mg Q4H. 2. Continue every 15 minute checks for safety. 3. Encourage individual, group and milieu therapies. 4. Encourage sober living treatment after discharge at the highest level of care to which he is willing to commit. 5. We will monitor for safety for himself in the community prior to discharge. 6. Reschedule guardianship hearing. He will stay here until the hearing. Involuntary Hold Information 96 Hour Hold: 96 Hour Involuntary Admission: No Attestations NPU Medical Necessity Statement*: Inpatient hospitalization is medically necessary and the clinically appropriate intervention at this time. We will initiate medications and make changes as indicated. Coding Level of Care Code Acute Threading Machine Setter for Jordan Ellisd Diagnoses Schizophrenia F20.9 Opiate misuse F11.90 Suicide attempt by drug overdose T50.902A Cluster B personality disorder F60.89
[2021-06-09] MEDS: hyDROXYzine 25 mg Capsule 50 MG PO (13:39)
[2021-06-09 13:57] VITALS: BP 94/64; PULSE 99; RESP 17; TEMP 36.3; O2SAT 94
[2021-06-09] MEDS: lurasidone 80 mg Tablet PO (16:11)
[2021-06-09] MEDS: trazodone 100 mg Tablet PO (20:58)
[2021-06-09] MEDS: chlorPROMazine 50 mg Tablet 250 MG PO (20:59)
[2021-06-09] MEDS: zolpidem 5 mg Tablet 10 MG PO (20:59)
[2021-06-09 21:03] VITALS: BP 93/55; PULSE 90; RESP 16; TEMP 36.5; O2SAT 94
[2021-06-10 06:00] VITALS: BP 97/54; PULSE 88; RESP 16; TEMP 36.4; O2SAT 94
[2021-06-10] MEDS: buprenorphine-naloxone 4-1 mg Film 2 EACH SUBLINGUAL ×2 (07:03→17:53)
[2021-06-10 09:48] VITALS: BP 97/54
[2021-06-10] MEDS: nicotine 2 mg Gum BUCCAL ×5 (09:48→20:24)
[2021-06-10] MEDS: losartan 50 mg Tablet 25 MG PO (09:48)
[2021-06-10] MEDS: spironolactone 25 mg Tablet PO (09:48)
[2021-06-10] MEDS: aspirin 81 mg EC Tablet PO (09:48)
[2021-06-10] MEDS: CLONazepam 0.5 mg Tablet PO ×2 (10:10→13:26)
[2021-06-10] MEDS: carvedilol 6.25 mg Tablet 3.125 MG PO ×2 (10:10→20:24)
[2021-06-10] MEDS: apixaban 5 mg Tablet PO ×2 (10:10→20:24)
[2021-06-10] MEDS: chlorPROMazine 50 mg Tablet 100 MG PO ×2 (10:59→16:24)
--- NOTE | 2021-06-10 11:32 | NPU.GN ---
[facility] Topic:Coping Mechanisms Activity General Mood of Group: Jan did not attend group he wanted to sleep.
--- NOTE | 2021-06-10 13:47 | P.NPUPN_ITS ---
Subjective NPU Subjective: He says that the auditory hallucinations are decreased by about 45% today. About the same as yesterday. he took two Thorazine 100 mg as needed yesterday with benefit. He says that he does not too sedating. Talked about potentially making a set dose in the morning when he is stable. He talked to his uncle yesterday and his alcohol apologize for pushing the episcopal on him as a way to deal with his mental illness. He is feeling that maybe he could go home before the court date. The court date has still not been reset. Mental Status Exam MSE Comments: This is a 36-year-old overweight male who appears approximately his stated age and is in no acute distress. He is pleasant and cooperative. He has a full hayes and but is fairly well groomed in hospital scrubs psychomotor activity is normal. Speech is at a regular rate and rhythm, normal volume, good articulation, not pressured. Alert, oriented X3 Attention and concentration appears to be intact. Memory is intact Mood is depressed but significantly better. Affect is somewhat blunted. Thought process is logical and goal-directed. Thought content: He reports auditory hallucinations are significantly improved, about 50%. Denies visual hallucinations. No delusions or paranoia are noted. He has not been having some suicidal ideation last night and this morning and no homicidal ideation. Fund of knowledge is average. Insight and judgment appear to be impaired. Impulse control is impaired. Cognition: Patient Appearance: Appropriate and Appears Younger than Age Level of Consciousness: Awake and Alert Patient Cognition Impaired: No Ability to Follow Directions: Good Patient Orientation (long list): Person, Place, Time, Name, Age, Birthday, Day of Month, Day of Week, Month, Time of Day and Year Comprehension Ability: Understands Concepts Hallucination Type: Auditory Delusion Description: Persecutory Thought Process: Appropriate and Logical Affect: Affect Description: [place], Depressed and Flat Depressive Symptoms: Changes in Appetite, Difficulty Sleeping and Unhappiness Behavior: Patient Behavior: Appropriate and Cooperative Speech Pattern: Appropriate and Clear Vitals/I&O/Wt Last Vital Signs Temp 97.5 F L 06/10/21 06:00 Pulse 88 06/10/21 06:00 Resp 16 06/10/21 06:00 BP 97/54 06/10/21 09:48 Pulse Ox 94 06/10/21 06:00 Data NPU : 06/04/21 09:00 06/04/21 09:00 A&P Assessment and plan (1) Schizophrenia: Status: Chronic (2) Opiate misuse: Status: Chronic (3) Suicide attempt by drug overdose: Status: Acute (4) Cluster B personality disorder: Status: Chronic Plan This is a 36-year-old male with schizophrenia and cluster B personality disorder with multiple recent suicide attempts. He was scheduled for a guardianship hearing but it was canceled because of the weather and not rescheduled. He ran out of his Latuda and became more psychotic and attempted suicide again Plan: 1. Continue current outpatient medication. Thorazine to 100 mg Q4H PRN. 2. Continue every 15 minute checks for safety. 3. Encourage individual, group and milieu therapies. 4. Encourage sober living treatment after discharge at the highest level of care to which he is willing to commit. 5. We will monitor for safety for himself in the community prior to discharge. 6. Reschedule guardianship hearing. He will stay here until the hearing. Involuntary Hold Information 96 Hour Hold: 96 Hour Involuntary Admission: No Attestations NPU Medical Necessity Statement*: Inpatient hospitalization is medically necessary and the clinically appropriate intervention at this time. We will initiate medications and make changes as indicated. Coding Level of Care Code Acute Hazmat Tanker Driver for oJrdan Craft Diagnoses Schizophrenia F20.9 Opiate misuse F11.90 Suicide attempt by drug overdose T50.902A Cluster B personality disorder F60.89
[2021-06-10 14:00] VITALS: BP 95/72; PULSE 108; RESP 18; TEMP 36.6; O2SAT 92
[2021-06-10] MEDS: hyDROXYzine 25 mg Capsule 50 MG PO ×2 (14:01→20:50)
[2021-06-10] MEDS: lurasidone 80 mg Tablet PO (16:24)
[2021-06-10] MEDS: chlorPROMazine 50 mg Tablet 250 MG PO (20:23)
[2021-06-10] MEDS: trazodone 100 mg Tablet PO (20:24)
[2021-06-10] MEDS: zolpidem 5 mg Tablet 10 MG PO (20:24)
[2021-06-10 21:03] VITALS: BP 93/59; PULSE 98; RESP 18; TEMP 36.5; O2SAT 94
[2021-06-11 06:00] VITALS: BP 91/56; PULSE 86; RESP 16; TEMP 36.6; O2SAT 93
[2021-06-11] MEDS: buprenorphine-naloxone 4-1 mg Film 2 EACH SUBLINGUAL ×2 (06:11→18:04)
[2021-06-11] MEDS: nicotine 2 mg Gum BUCCAL ×5 (07:43→20:10)
[2021-06-11 10:16] VITALS: BP 91/56
[2021-06-11] MEDS: losartan 50 mg Tablet 25 MG PO (10:16)
[2021-06-11] MEDS: CLONazepam 0.5 mg Tablet PO ×2 (10:16→12:21)
[2021-06-11] MEDS: carvedilol 6.25 mg Tablet 3.125 MG PO ×2 (10:16→20:09)
[2021-06-11] MEDS: hyDROXYzine 25 mg Capsule 50 MG PO (10:17)
[2021-06-11] MEDS: apixaban 5 mg Tablet PO ×2 (10:17→20:10)
[2021-06-11] MEDS: spironolactone 25 mg Tablet PO (10:17)
[2021-06-11] MEDS: aspirin 81 mg EC Tablet PO (10:17)
--- NOTE | 2021-06-11 10:33 | W.PM.NPUPNS ---
Subjective NPU Subjective: The voices were a little worse yesterday. He took 2 doses of Thorazine. He did some Thorazine already today. It works well for him. He continues to hope that he can go home before the hearing. He still is going to be. Mental Status Exam MSE Comments: This is a 36-year-old overweight male who appears approximately his stated age and is in no acute distress. He is pleasant and cooperative. He has a full hayes and but is fairly well groomed in hospital scrubs psychomotor activity is normal. Speech is at a regular rate and rhythm, normal volume, good articulation, not pressured. Alert, oriented X3 Attention and concentration appears to be intact. Memory is intact Mood is depressed but significantly better. Affect is somewhat blunted. Thought process is logical and goal-directed. Thought content: He reports auditory hallucinations are significantly improved, about 50%. Denies visual hallucinations. No delusions or paranoia are noted. He has not been having some suicidal ideation last night and this morning and no homicidal ideation. Fund of knowledge is average. Insight and judgment appear to be impaired. Impulse control is impaired. Cognition: Patient Appearance: Disheveled/Poor Hygiene Level of Consciousness: Awake and Alert Patient Cognition Impaired: No Ability to Follow Directions: Good Patient Orientation (long list): Person, Place, Time, Name, Age, Birthday, Day of Month, Day of Week, Month, Time of Day and Year Comprehension Ability: Understands Concepts Hallucination Type: None Delusion Description: Persecutory Thought Process: Indecisive Affect: Affect Description: [place], Depressed and Guarded Depressive Symptoms: Changes in Appetite, Difficulty Sleeping and Unhappiness Behavior: Patient Behavior: Withdrawn Speech Pattern: Appropriate Vitals/I&O/Wt Last Vital Signs Temp 97.9 F 06/15/21 06:00 Pulse 90 06/15/21 06:00 Resp 18 06/15/21 06:00 BP 97/62 06/15/21 06:00 Pulse Ox 95 06/15/21 06:00 Weight last 48 hrs Weight 100.244 kg Data NPU : 06/04/21 09:00 06/04/21 09:00 A&P Assessment and plan (1) Schizophrenia: Status: Chronic (2) Opiate misuse: Status: Chronic (3) Suicide attempt by drug overdose: Status: Acute (4) Cluster B personality disorder: Status: Chronic Plan This is a 36-year-old male with schizophrenia and cluster B personality disorder with multiple recent suicide attempts. He was scheduled for a guardianship hearing but it was canceled because of the weather and not rescheduled. He ran out of his Latuda and became more psychotic and attempted suicide again Plan: 1. Continue current outpatient medication. Thorazine to 100 mg Q4H PRN. 2. Continue every 15 minute checks for safety. 3. Encourage individual, group and milieu therapies. 4. Encourage sober living treatment after discharge at the highest level of care to which he is willing to commit. 5. We will monitor for safety for himself in the community prior to discharge. 6. Reschedule guardianship hearing. He will stay here until the hearing. Involuntary Hold Information 96 Hour Hold: 96 Hour Involuntary Admission: No Attestations U Medical Necessity Statement*: Inpatient hospitalization is medically necessary and the clinically appropriate intervention at this time. We will initiate medications and make changes as indicated. Coding Level of Care Code Acute Account Executive Healthcare for Jordan Craft Diagnoses Schizophrenia F20.9 Opiate misuse F11.90 Suicide attempt by drug overdose T50.902A Cluster B personality disorder F60.89
[2021-06-11] MEDS: chlorPROMazine 50 mg Tablet 100 MG PO (12:03)
[2021-06-11 13:50] VITALS: BP 106/65; PULSE 77; RESP 16; TEMP 36.4; O2SAT 96
--- NOTE | 2021-06-11 14:51 | PC.NURSE ---
PRNS C/O ANXIETY IN MORNING. TOOK PRN VISTARIL. REPORTED THAT VISTARIL WAS EFFECTIVE FOR ANXIETY BUT THAT AH WERE PRESENT LATER. TOOK PRN THORAZINE AT 1203. THORAZINE EFFECTIVE. HAS HAD NO FURTHER C/O AT THIS TIME.
[2021-06-11] MEDS: haloperidol 5 mg Tablet PO (15:19)
[2021-06-11] MEDS: lurasidone 80 mg Tablet PO (16:53)
[2021-06-11] MEDS: chlorPROMazine 50 mg Tablet 250 MG PO (20:00)
[2021-06-11] MEDS: zolpidem 5 mg Tablet 10 MG PO (20:09)
[2021-06-11] MEDS: trazodone 100 mg Tablet PO (20:10)
[2021-06-11 21:28] VITALS: BP 107/67; PULSE 72; RESP 17; TEMP 36.4; O2SAT 96
[2021-06-12 06:00] VITALS: BP 111/74; PULSE 66; RESP 17; TEMP 36.6; O2SAT 97
[2021-06-12] MEDS: buprenorphine-naloxone 4-1 mg Film 2 EACH SUBLINGUAL ×2 (06:41→18:01)
[2021-06-12] MEDS: apixaban 5 mg Tablet PO ×2 (09:16→20:24)
[2021-06-12] MEDS: losartan 50 mg Tablet 25 MG PO (09:16)
[2021-06-12] MEDS: aspirin 81 mg EC Tablet PO (09:16)
[2021-06-12] MEDS: carvedilol 6.25 mg Tablet 3.125 MG PO ×2 (09:16→20:24)
[2021-06-12] MEDS: hyDROXYzine 25 mg Capsule 50 MG PO (09:16)
[2021-06-12] MEDS: nicotine 2 mg Gum BUCCAL ×6 (09:17→20:24)
[2021-06-12] MEDS: spironolactone 25 mg Tablet PO (09:17)
[2021-06-12] MEDS: CLONazepam 0.5 mg Tablet PO ×2 (09:59→12:51)
[2021-06-12] MEDS: chlorPROMazine 50 mg Tablet 100 MG PO (12:26)
--- NOTE | 2021-06-12 12:46 | P.NPUPN_ITS ---
Subjective NPU Subjective: He says that the voices continue to be better. He has not needed to take the as needed Thorazine today. He had concerns about his court hearing. It seems that his assistant district attorney is confused. His assistant district attorney said it was just to assign a PA because Ryann Langley does not do the guardianship. He was informed that Ryann Langley is the guardian for some of the other patients that have been here. Mental Status Exam MSE Comments: This is a 36-year-old overweight male who appears approximately his stated age and is in no acute distress. He is pleasant and cooperative. He has a full hayes and but is fairly well groomed in hospital scrubs psychomotor activity is normal. Speech is at a regular rate and rhythm, normal volume, good articulation, not pressured. Alert, oriented X3 Attention and concentration appears to be intact. Memory is intact Mood is depressed but significantly better. Affect is somewhat blunted. Thought process is logical and goal-directed. Thought content: He reports auditory hallucinations are significantly improved, about 50%. Denies visual hallucinations. No delusions or paranoia are noted. He has not been having some suicidal ideation last night and this morning and no homicidal ideation. Fund of knowledge is average. Insight and judgment appear to be impaired. Impulse control is impaired. Cognition: Patient Appearance: Appropriate and Appears Younger than Age Level of Consciousness: Awake and Alert Patient Cognition Impaired: No Ability to Follow Directions: Good Patient Orientation (long list): Person, Place, Time, Name, Age, Birthday, Day of Month, Day of Week, Month, Time of Day and Year Comprehension Ability: Understands Concepts Hallucination Type: None Delusion Description: Persecutory Thought Process: Appropriate and Logical Affect: Affect Description: Appropriate and Calm Depressive Symptoms: Changes in Appetite, Difficulty Sleeping and Unhappiness Behavior: Patient Behavior: Appropriate and Cooperative Speech Pattern: Appropriate and Clear Vitals/I&O/Wt Last Vital Signs Temp 97.8 F 06/12/21 06:00 Pulse 66 06/12/21 06:00 Resp 17 06/12/21 06:00 BP 111/74 06/12/21 06:00 Pulse Ox 97 06/12/21 06:00 Data NPU : 06/04/21 09:00 06/04/21 09:00 A&P Assessment and plan (1) Schizophrenia: Status: Chronic (2) Opiate misuse: Status: Chronic (3) Suicide attempt by drug overdose: Status: Acute (4) Cluster B personality disorder: Status: Chronic Plan This is a 36-year-old male with schizophrenia and cluster B personality disorder with multiple recent suicide attempts. He was scheduled for a guardianship hearing but it was canceled because of the weather and not rescheduled. He ran out of his Latuda and became more psychotic and attempted suicide again Plan: 1. Continue current outpatient medication. Thorazine to 100 mg Q4H PRN. 2. Continue every 15 minute checks for safety. 3. Encourage individual, group and milieu therapies. 4. Encourage sober living treatment after discharge at the highest level of care to which he is willing to commit. 5. We will monitor for safety for himself in the community prior to discharge. 6. Reschedule guardianship hearing. He will stay here until the hearing. Involuntary Hold Information 96 Hour Hold: 96 Hour Involuntary Admission: No Attestations NPU Medical Necessity Statement*: Inpatient hospitalization is medically necessary and the clinically appropriate intervention at this time. We will initiate medications and make changes as indicated. Coding Level of Care Code Acute Police [employer] for [place] [employer] Diagnoses Schizophrenia F20.9 Opiate misuse F11.90 Suicide attempt by drug overdose T50.902A Cluster B personality disorder F60.89
[2021-06-12 14:00] VITALS: BP 111/75; PULSE 95; RESP 17; TEMP 36.6; O2SAT 95
[2021-06-12] MEDS: haloperidol 5 mg Tablet PO (15:19)
[2021-06-12] MEDS: lurasidone 80 mg Tablet PO (17:04)
--- NOTE | 2021-06-12 17:45 | PC.NURSE ---
PRNS AT 1227 TOOK PRN THORAZINE FOR AH. STATES THAT HE GETS CONFUSED ABOUT LEGAL PROCESS WHEN SPEAKING WITH MANAGER LAN AND THEN THEN AH INCREASE. DID SPEAK WITH SW FOR CLARIFICATION ON LEGAL PROCESS. PT DID CALM AFTER. NO OTHER ISSUES. ATTENDED GROUP AND ATE LUNCH. AT 1519 PT C/O FEELING AGITATED. REQUESTED AND RECEIVED PRN HALDOL AT THAT TIME. PT REPORTS FEELING FRUSTRATED WITH LEGAL PROCESS OF GUARDIANSHIP, PLACEMENT, AND THE NEED TO BE HERE. HAS REMAINED IN [facility] THROUGHOUT AND HAS BEEN RECEPTIVE TO INFORMATION.
[2021-06-12 20:16] VITALS: BP 95/60; PULSE 80; RESP 16; TEMP 36.6; O2SAT 92
[2021-06-12] MEDS: trazodone 100 mg Tablet PO (20:24)
[2021-06-12] MEDS: zolpidem 5 mg Tablet 10 MG PO (20:24)
[2021-06-12] MEDS: chlorPROMazine 50 mg Tablet 250 MG PO (20:24)
[2021-06-13 06:00] VITALS: BP 93/56; PULSE 79; RESP 20; TEMP 36.9; O2SAT 91
[2021-06-13] MEDS: buprenorphine-naloxone 4-1 mg Film 2 EACH SUBLINGUAL ×2 (06:24→18:02)
[2021-06-13] MEDS: losartan 50 mg Tablet 25 MG PO (09:42)
[2021-06-13] MEDS: nicotine 2 mg Gum BUCCAL ×4 (09:42→20:58)
[2021-06-13] MEDS: apixaban 5 mg Tablet PO ×2 (09:43→21:01)
[2021-06-13] MEDS: hyDROXYzine 25 mg Capsule 50 MG PO ×2 (09:43→20:59)
[2021-06-13] MEDS: aspirin 81 mg EC Tablet PO (09:43)
[2021-06-13] MEDS: carvedilol 6.25 mg Tablet 3.125 MG PO ×2 (09:43→21:02)
[2021-06-13] MEDS: spironolactone 25 mg Tablet PO (09:43)
[2021-06-13] MEDS: CLONazepam 0.5 mg Tablet PO ×2 (09:43→12:30)
[2021-06-13] MEDS: chlorPROMazine 50 mg Tablet 100 MG PO ×2 (11:23→15:32)
--- NOTE | 2021-06-13 12:38 | W.PM.NPUPNS ---
Subjective NPU Subjective: He says that the voices continue to be better. He took the as needed Thorazine about 1 PM yesterday and at about 11 AM today. He continues to have hopes of going home before the court hearing. Mental Status Exam MSE Comments: This is a 36-year-old overweight male who appears approximately his stated age and is in no acute distress. He is pleasant and cooperative. He has a full hayes and but is fairly well groomed in hospital scrubs psychomotor activity is normal. Speech is at a regular rate and rhythm, normal volume, good articulation, not pressured. Alert, oriented X3 Attention and concentration appears to be intact. Memory is intact Mood is depressed but significantly better. Affect is somewhat blunted. Thought process is logical and goal-directed. Thought content: He reports auditory hallucinations are significantly improved, about 50%. Denies visual hallucinations. No delusions or paranoia are noted. He has not been having some suicidal ideation last night and this morning and no homicidal ideation. Fund of knowledge is average. Insight and judgment appear to be impaired. Impulse control is impaired. Cognition: Patient Appearance: Appropriate and Appears Younger than Age Level of Consciousness: Awake and Alert Patient Cognition Impaired: No Ability to Follow Directions: Good Patient Orientation (long list): Person, Place, Time, Name, Age, Birthday, Day of Month, Day of Week, Month, Time of Day and Year Comprehension Ability: Understands Concepts Hallucination Type: None Delusion Description: Persecutory Thought Process: Appropriate and Logical Affect: Affect Description: Appropriate and Calm Depressive Symptoms: Changes in Appetite, Difficulty Sleeping and Unhappiness Behavior: Patient Behavior: Appropriate and Cooperative Speech Pattern: Appropriate and Clear Vitals/I&O/Wt Last Vital Signs Temp 98.5 F 06/13/21 06:00 Pulse 79 06/13/21 06:00 Resp 20 H 06/13/21 06:00 BP 93/56 06/13/21 06:00 Pulse Ox 91 06/13/21 06:00 Data NPU : 06/04/21 09:00 06/04/21 09:00 A&P Assessment and plan (1) Schizophrenia: Status: Chronic (2) Opiate misuse: Status: Chronic (3) Suicide attempt by drug overdose: Status: Acute (4) Cluster B personality disorder: Status: Chronic Plan This is a 36-year-old male with schizophrenia and cluster B personality disorder with multiple recent suicide attempts. He was scheduled for a guardianship hearing but it was canceled because of the weather and not rescheduled. He ran out of his Latuda and became more psychotic and attempted suicide again Plan: 1. Continue current outpatient medication. Thorazine to 100 mg Q4H PRN. 2. Continue every 15 minute checks for safety. 3. Encourage individual, group and milieu therapies. 4. Encourage sober living treatment after discharge at the highest level of care to which he is willing to commit. 5. We will monitor for safety for himself in the community prior to discharge. 6. Reschedule guardianship hearing. He will stay here until the hearing. Involuntary Hold Information 96 Hour Hold: 96 Hour Involuntary Admission: No Attestations NPU Medical Necessity Statement*: Inpatient hospitalization is medically necessary and the clinically appropriate intervention at this time. We will initiate medications and make changes as indicated. 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
[2021-06-13 14:00] VITALS: BP 96/64; PULSE 100; RESP 17; TEMP 36.6; O2SAT 94
[2021-06-13] MEDS: lurasidone 80 mg Tablet PO (17:04)
[2021-06-13 20:26] VITALS: BP 119/74; PULSE 93; RESP 20; TEMP 36.4; O2SAT 94
[2021-06-13] MEDS: zolpidem 5 mg Tablet 10 MG PO (20:58)
[2021-06-13] MEDS: trazodone 100 mg Tablet PO (20:59)
[2021-06-13] MEDS: chlorPROMazine 50 mg Tablet 250 MG PO (20:59)
--- NOTE | 2021-06-14 04:02 | PC.NURSE ---
2058-Vistaril for anxiety given and trazodone for sleep. They were effective.
[2021-06-14 06:00] VITALS: BP 93/57; PULSE 93; RESP 17; TEMP 36.7; O2SAT 94; BMI 30.8
[2021-06-14] MEDS: buprenorphine-naloxone 4-1 mg Film 2 EACH SUBLINGUAL ×2 (06:28→18:08)
[2021-06-14] MEDS: carvedilol 6.25 mg Tablet 3.125 MG PO (08:46)
[2021-06-14 08:47] VITALS: BP 97/53
[2021-06-14] MEDS: losartan 50 mg Tablet 25 MG PO (08:47)
[2021-06-14] MEDS: CLONazepam 0.5 mg Tablet PO ×2 (08:47→12:52)
[2021-06-14] MEDS: chlorPROMazine 50 mg Tablet 100 MG PO (08:47)
[2021-06-14] MEDS: spironolactone 25 mg Tablet PO (08:47)
[2021-06-14] MEDS: apixaban 5 mg Tablet PO ×2 (08:48→20:30)
[2021-06-14] MEDS: nicotine 2 mg Gum BUCCAL ×5 (08:48→20:37)
[2021-06-14] MEDS: aspirin 81 mg EC Tablet PO (08:48)
[2021-06-14] MEDS: hyDROXYzine 25 mg Capsule 50 MG PO (10:44)
[2021-06-14] MEDS: haloperidol 5 mg Tablet PO (13:36)
[2021-06-14 14:00] VITALS: BP 87/55; PULSE 108; RESP 20; TEMP 36.7; O2SAT 93
--- NOTE | 2021-06-14 14:08 | P.NPUPN_ITS ---
Subjective NPU Subjective: The voices were a little worse yesterday. He took 2 doses of Thorazine. He did some Thorazine already today. He agreed to start adding Thorazine every morning. He said that he talk to his automobile club information clerk about being able to leave and he said that he needed to talk with us about that. Somehow he and Gee misunderstood each other and he thought Gee said he needed to talk to his automobile club information clerk about leaving the hospital. He said that he was frustrated because his automobile club information clerk said he did not know anything about how to do that. He was told that that was my responsibility to determine when he was safe to leave. He said that he is voluntary. He was told that if he insisted on leaving we would do a 96-h our hold and if we needed to do a 21-day commitment to keep him here until the hearing we would do that. He has attempted suicide every time he leaves the hospital. He says that he understood now that I explained it that way. Mental Status Exam MSE Comments: This is a 36-year-old overweight male who appears approximately his stated age and is in no acute distress. He is pleasant and cooperative. He has a full hayes and but is fairly well groomed in hospital scrubs psychomotor activity is normal. Speech is at a regular rate and rhythm, normal volume, good articulation, not pressured. Alert, oriented X3 Attention and concentration appears to be intact. Memory is intact Mood is depressed but significantly better. Affect is somewhat blunted. Thought process is logical and goal-directed. Thought content: He reports auditory hallucinations are significantly improved, about 50%. Denies visual hallucinations. No delusions or paranoia are noted. He has not been having some suicidal ideation last night and this morning and no homicidal ideation. Fund of knowledge is average. Insight and judgment appear to be impaired. Impulse control is impaired. Cognition: Patient Appearance: Appropriate and Appears Younger than Age Level of Consciousness: Awake and Alert Patient Cognition Impaired: No Ability to Follow Directions: Good Patient Orientation (long list): Person, Place, Time, Name, Age, Birthday, Day o f Month, Day of Week, Month, Time of Day and Year Comprehension Ability: Understands Concepts Hallucination Type: None Delusion Description: Persecutory Thought Process: Appropriate and Logical Affect: Affect Description: Appropriate Depressive Symptoms: Changes in Appetite, Difficulty Sleeping and Unhappiness Behavior: Patient Behavior: Appropriate and Cooperative Speech Pattern: Appropriate and Clear Vitals/I&O/Wt Last Vital Signs Temp 98.0 F 06/14/21 06:00 Pulse 93 06/14/21 06:00 Resp 17 06/14/21 06:00 BP 97/53 06/14/21 08:47 Pulse Ox 94 06/14/21 06:00 Weight last 48 hrs Weight 100.244 kg Data NPU : 06/04/21 09:00 06/04/21 09:00 A&P Assessment and plan (1) Schizophrenia: Status: Chronic (2) Opiate misuse: Status: Chronic (3) Suicide attempt by drug overdose: Status: Acute (4) Cluster B personality disorder: Status: Chronic Plan This is a 36-year-old male with schizophrenia and cluster B personality disorder with multiple recent suicide attempts. He was scheduled for a guardianship hearing but it was canceled because of the weather and not rescheduled. He ran out of his Latuda and became more psychotic and attempted suicide again Plan: 1. Continue current outpatient medication. Thorazine to 100 mg Q4H PRN. 2. Continue every 15 minute checks for safety. 3. Encourage individual, group and milieu therapies. 4. Encourage sober living treatment after discharge at the highest level of care to which he is willing to commit. 5. We will monitor for safety for himself in the community prior to discharge. 6. Reschedule guardianship hearing. He will stay here until the hearing. Involuntary Hold Information 96 Hour Hold: 96 Hour Involuntary Admission: No Attestations NPU Medical Necessity Statement*: Inpatient hospitalization is medically necessary and the clinically appropriate intervention at this time. We will initiate medications and make changes as indicated. Coding Level of Care Code Acute Chandelier Maker for g Fwd Diagnoses Schizophrenia F20.9 Opiate misuse F11.90 Suicide attempt by drug overdose T50.902A Cluster B personality disorder F60.89
[2021-06-14] MEDS: lurasidone 80 mg Tablet PO (18:08)
[2021-06-14 20:06] VITALS: BP 98/59; PULSE 83; RESP 16; TEMP 36.3; O2SAT 93
[2021-06-14] MEDS: chlorPROMazine 50 mg Tablet 250 MG PO (20:30)
[2021-06-14] MEDS: zolpidem 5 mg Tablet 10 MG PO (20:30)
[2021-06-15 06:00] VITALS: BP 97/62; PULSE 90; RESP 18; TEMP 36.6; O2SAT 95
[2021-06-15] MEDS: chlorPROMazine 50 mg Tablet 100 MG PO ×2 (06:13→13:54)
[2021-06-15] MEDS: buprenorphine-naloxone 4-1 mg Film 2 EACH SUBLINGUAL ×2 (06:13→18:03)
[2021-06-15] MEDS: apixaban 5 mg Tablet PO ×2 (09:18→20:22)
[2021-06-15] MEDS: CLONazepam 0.5 mg Tablet PO ×2 (09:18→13:06)
[2021-06-15] MEDS: aspirin 81 mg EC Tablet PO (09:18)
[2021-06-15] MEDS: nicotine 2 mg Gum BUCCAL ×4 (09:19→19:53)
[2021-06-15] MEDS: spironolactone 25 mg Tablet PO (09:19)
[2021-06-15] MEDS: carvedilol 6.25 mg Tablet 3.125 MG PO ×2 (09:19→20:22)
[2021-06-15] MEDS: losartan 50 mg Tablet 25 MG PO (09:19)
--- NOTE | 2021-06-15 11:40 | NPU.GN ---
[facility] Topic:Mental Health discussion General Mood of Group: Jan did not attend group he wanted to sleep.
--- NOTE | 2021-06-15 13:55 | PC.NURSE ---
PRN THORAZINE 100 MG GIVEN PO PER PT REQUEST. NO OUTWARD S/S OF ANXIETY/AGITATION NOTED
[2021-06-15 14:00] VITALS: BP 89/55; PULSE 93; RESP 16; TEMP 36.6; O2SAT 96
[2021-06-15] MEDS: lurasidone 80 mg Tablet PO (16:12)
[2021-06-15] MEDS: hyDROXYzine 25 mg Capsule 50 MG PO (16:29)
--- NOTE | 2021-06-15 16:30 | PC.NURSE ---
PRN VISTARIL 50 MG GIVEN PO PER PT C/O STATED ANXIETY. CONT TO MED SEEK REQUESTING ANY AND ALL PRN MEDICATIONS HE CAN HAVE
[2021-06-15] MEDS: chlorPROMazine 50 mg Tablet 250 MG PO (20:22)
[2021-06-15] MEDS: zolpidem 5 mg Tablet 10 MG PO (20:22)
[2021-06-15] MEDS: trazodone 100 mg Tablet PO (20:26)
[2021-06-15 21:12] VITALS: BP 79/54; PULSE 122; RESP 18; TEMP 36.6; O2SAT 96
[2021-06-16 06:00] VITALS: BP 91/59; PULSE 75; RESP 18; TEMP 36.4; O2SAT 91
[2021-06-16] MEDS: chlorPROMazine 50 mg Tablet 100 MG PO ×2 (06:22→14:01)
[2021-06-16] MEDS: buprenorphine-naloxone 4-1 mg Film 2 EACH SUBLINGUAL ×2 (07:20→18:02)
[2021-06-16] MEDS: apixaban 5 mg Tablet PO ×2 (08:53→21:08)
[2021-06-16] MEDS: aspirin 81 mg EC Tablet PO (08:54)
[2021-06-16] MEDS: carvedilol 6.25 mg Tablet 3.125 MG PO ×2 (08:54→21:10)
[2021-06-16] MEDS: CLONazepam 0.5 mg Tablet PO ×2 (08:55→12:33)
[2021-06-16] MEDS: losartan 50 mg Tablet 25 MG PO (08:55)
[2021-06-16] MEDS: spironolactone 25 mg Tablet PO (08:55)
--- NOTE | 2021-06-16 09:50 | PC.NURSE ---
Low blood pressure Nurse informed Dr. Dillard that Pt BP has been consistently low 90s/50s with this mornings BP being 91/59 HR 75, Nurse questioned morning meds (Aldactone, Coreg, Losartan) and if Doctor still wanted them administered. Doctor said to administer all morning medications and he would look into it further.
--- NOTE | 2021-06-16 10:53 | NPU.GN ---
[facility] Topic:Positive Coping Skills General Mood of Group: Jan did not attend group as he was sleeping.
[2021-06-16] MEDS: nicotine 2 mg Gum BUCCAL ×3 (11:54→21:06)
--- NOTE | 2021-06-16 13:56 | W.PM.NPUPNS ---
Subjective NPU Subjective: He said that the hallucinations are little bit worse today. He was not able to talk with his uncle over the weekend and thought that he was just busy. They he found out that his girlfriend left with her daughter. He does not know if she is coming back. She is taken over the responsibilities that Shayan was doing for his uncle. When I asked what medical problems he has he initially said high blood pressure. Did he said we think that he has Alzheimer's disease although he has never told me that. His girlfriend said that they were thinking he might have that. He gets worked up easily. Mental Status Exam MSE Comments: This is a 36-year-old overweight male who appears approximately his stated age and is in no acute distress. He is pleasant and cooperative. He has a full hayes and but is fairly well groomed in hospital scrubs psychomotor activity is normal. Speech is at a regular rate and rhythm, normal volume, good articulation, not pressured. Alert, oriented X3 Attention and concentration appears to be intact. Memory is intact Mood is depressed Affect is more dysphoric. Thought process is logical and goal-directed. Thought content: He reports auditory hallucinations are significantly improved, about 50%. Denies visual hallucinations. No delusions or paranoia are noted. He has not been having some suicidal ideation last night and this morning and no homicidal ideation. Fund of knowledge is average. Insight and judgment appear to be impaired. Impulse control is impaired. Cognition: Patient Appearance: Disheveled/Poor Hygiene Level of Consciousness: Awake and Alert Patient Cognition Impaired: No Ability to Follow Directions: Good Patient Orientation (long list): Person, Place, Time, Name, Age, Birthday, Day of Month, Day of Week, Month, Time of Day and Year Comprehension Ability: Understands Concepts Hallucination Type: None Delusion Description: Not Present Thought Process: Circumstantial Affect: Affect Description: Appropriate Depressive Symptoms: Changes in Appetite, Difficulty Sleeping and Unhappiness Behavior: Patient Behavior: Appropriate Speech Pattern: Appropriate Vitals/I&O/Wt Last Vital Signs Temp 97.6 F 06/16/21 06:00 Pulse 75 06/16/21 06:00 Resp 18 06/16/21 06:00 BP 91/59 06/16/21 06:00 Pulse Ox 91 06/16/21 06:00 Data NPU : 06/04/21 09:00 06/04/21 09:00 A&P Assessment and plan (1) Schizophrenia: Status: Chronic (2) Opiate misuse: Status: Chronic (3) Suicide attempt by drug overdose: Status: Acute (4) Cluster B personality disorder: Status: Chronic Plan This is a 36-year-old male with schizophrenia and cluster B personality disorder with multiple recent suicide attempts. He was scheduled for a guardianship hearing but it was canceled because of the weather and not rescheduled. He ran out of his Latuda and became more psychotic and attempted suicide again Plan: 1. Continue current outpatient medication. Thorazine to 100 mg Q4H PRN. Thorazine 100 mg every morning. 2. Continue every 15 minute checks for safety. 3. Encourage individual, group and milieu therapies. 4. Encourage sober living treatment after discharge at the highest level of care to which he is willing to commit. 5. We will monitor for safety for himself in the community prior to discharge. 6. Reschedule guardianship hearing. He will stay here until the hearing. Involuntary Hold Information 96 Hour Hold: 96 Hour Involuntary Admission: No Attestations NPU Medical Necessity Statement*: Inpatient hospitalization is medically necessary and the clinically appropriate intervention at this time. We will initiate medications and make changes as indicated. 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
--- NOTE | 2021-06-16 14:00 | P.NPUPN_ITS ---
Subjective NPU Subjective: He said that he was more agitated last night and today. He is not sure why. The voices are always worse again. He has already taken 1 extra Thorazine today and Haldol. He like to try another Thorazine. Mental Status Exam MSE Comments: This is a 36-year-old overweight male who appears approximately his stated age and is in no acute distress. He is pleasant and cooperative. He has a full hayes and but is fairly well groomed in hospital scrubs psychomotor activity is normal. Speech is at a regular rate and rhythm, normal volume, good articulation, not pressured. Alert, oriented X3 Attention and concentration appears to be intact. Memory is intact Mood is depressed Affect is more dysphoric. Thought process is logical and goal-directed. Thought content: He reports auditory hallucinations are significantly improved, about 50%. Denies visual hallucinations. No delusions or paranoia are noted. He has not been having some suicidal ideation last night and this morning and no homicidal ideation. Fund of knowledge is average. Insight and judgment appear to be impaired. Impulse control is impaired. Cognition: Patient Appearance: Disheveled/Poor Hygiene Level of Consciousness: Awake and Alert Patient Cognition Impaired: No Ability to Follow Directions: Good Patient Orientation (long list): Person, Place, Time, Name, Age, Birthday, Day of Month, Day of Week, Month, Time of Day and Year Comprehension Ability: Understands Concepts Hallucination Type: None Delusion Description: Not Present Thought Process: Circumstantial Affect: Affect Description: Appropriate Depressive Symptoms: Changes in Appetite, Difficulty Sleeping and Unhappiness Behavior: Patient Behavior: Appropriate Speech Pattern: Appropriate Vitals/I&O/Wt Last Vital Signs Temp 97.6 F 06/16/21 06:00 Pulse 75 06/16/21 06:00 Resp 18 06/16/21 06:00 BP 91/59 06/16/21 06:00 Pulse Ox 91 06/16/21 06:00 Data NPU : 06/04/21 09:00 06/04/21 09:00 A&P Assessment and plan (1) Schizophrenia: Status: Chronic (2) Opiate misuse: Status: Chronic (3) Suicide attempt by drug overdose: Status: Acute (4) Cluster B personality disorder: Status: Chronic Plan This is a 36-year-old male with schizophrenia and cluster B personality disorder with multiple recent suicide attempts. He was scheduled for a guardianship hearing but it was canceled because of the weather and not rescheduled. He ran out of his Latuda and became more psychotic and attempted suicide again Plan: 1. Continue current outpatient medication. Thorazine to 100 mg Q4H PRN. Thorazine 100 mg every morning. 2. Continue every 15 minute checks for safety. 3. Encourage individual, group and milieu therapies. 4. Encourage sober living treatment after discharge at the highest level of care to which he is willing to commit. 5. We will monitor for safety for himself in the community prior to discharge. 6. Reschedule guardianship hearing. He will stay here until the hearing. Involuntary Hold Information 96 Hour Hold: 96 Hour Involuntary Admission: No Attestations NPU Medical Necessity Statement*: Inpatient hospitalization is medically necessary and the clinically appropriate intervention at this time. We will initiate medications and make changes as indicated. Coding Level of Care Code Acute E Mail System Administrator for [facility] Diagnoses Schizophrenia F20.9 Opiate misuse F11.90 Suicide attempt by drug overdose T50.902A Cluster B personality disorder F60.89
--- NOTE | 2021-06-16 14:02 | PC.NURSE ---
PRN THORAZINE 100 MG GIVEN PO PER PT REQUEST
[2021-06-16] MEDS: hyDROXYzine 25 mg Capsule 50 MG PO ×2 (16:32→21:05)
[2021-06-16] MEDS: lurasidone 80 mg Tablet PO (16:47)
[2021-06-16 17:24] VITALS: BP 105/73; PULSE 91; RESP 17; TEMP 36.4; O2SAT 94
[2021-06-16] MEDS: chlorPROMazine 50 mg Tablet 250 MG PO (21:06)
[2021-06-16] MEDS: trazodone 100 mg Tablet PO (21:06)
[2021-06-16] MEDS: zolpidem 5 mg Tablet 10 MG PO (21:06)
[2021-06-16 22:00] VITALS: BP 80/54; PULSE 89; RESP 17; TEMP 36.4; O2SAT 94
--- NOTE | 2021-06-17 03:04 | PC.NURSE ---
2104- He rec'd trazodone and vistaril for insomnia and anxiety. They were effective.
[2021-06-17 06:00] VITALS: BP 94/57; PULSE 85; RESP 16; TEMP 36.6; O2SAT 94
[2021-06-17] MEDS: chlorPROMazine 50 mg Tablet 100 MG PO ×3 (06:04→15:13)
[2021-06-17] MEDS: buprenorphine-naloxone 4-1 mg Film 2 EACH SUBLINGUAL ×2 (06:04→18:19)
[2021-06-17] MEDS: nicotine 2 mg Gum BUCCAL ×6 (06:04→19:49)
[2021-06-17] MEDS: losartan 50 mg Tablet 25 MG PO (09:45)
[2021-06-17] MEDS: aspirin 81 mg EC Tablet PO (09:45)
[2021-06-17] MEDS: hyDROXYzine 25 mg Capsule 50 MG PO ×2 (09:45→19:56)
[2021-06-17] MEDS: apixaban 5 mg Tablet PO ×2 (09:45→19:56)
[2021-06-17] MEDS: CLONazepam 0.5 mg Tablet PO ×2 (09:45→12:27)
[2021-06-17] MEDS: spironolactone 25 mg Tablet PO (09:46)
[2021-06-17] MEDS: carvedilol 6.25 mg Tablet 3.125 MG PO ×2 (09:46→19:56)
--- NOTE | 2021-06-17 11:27 | NPU.GN ---
[facility] Topic:Positive Thoughts/ Negative Thoughts General Mood of Group: Jan did attend a short part of the group towards the end. His hygiene is poor.
[2021-06-17 13:06] VITALS: BP 90/63; PULSE 99; RESP 17; TEMP 36.5; O2SAT 95
[2021-06-17] MEDS: haloperidol 5 mg Tablet PO (14:12)
[2021-06-17] MEDS: lurasidone 80 mg Tablet PO (16:31)
[2021-06-17] MEDS: zolpidem 5 mg Tablet 10 MG PO (19:55)
[2021-06-17] MEDS: chlorPROMazine 50 mg Tablet 250 MG PO (19:55)
[2021-06-17] MEDS: trazodone 100 mg Tablet PO (19:57)
[2021-06-17 21:32] VITALS: BP 92/61; PULSE 74; RESP 18; TEMP 36.6; O2SAT 98
[2021-06-17] MEDS: docusate sodium 100 mg Capsule PO (22:03)
[2021-06-18 06:00] VITALS: BP 96/64; PULSE 79; RESP 16; TEMP 36.6; O2SAT 94
[2021-06-18] MEDS: chlorPROMazine 50 mg Tablet 100 MG PO ×3 (06:29→14:58)
[2021-06-18] MEDS: buprenorphine-naloxone 4-1 mg Film 2 EACH SUBLINGUAL ×2 (06:30→18:02)
[2021-06-18 08:57] VITALS: BP 92/76
[2021-06-18] MEDS: losartan 50 mg Tablet 25 MG PO (08:57)
[2021-06-18] MEDS: nicotine 2 mg Gum BUCCAL ×4 (08:57→17:57)
[2021-06-18] MEDS: CLONazepam 0.5 mg Tablet PO ×2 (08:57→12:00)
[2021-06-18] MEDS: hyDROXYzine 25 mg Capsule 50 MG PO (08:57)
[2021-06-18] MEDS: aspirin 81 mg EC Tablet PO (08:57)
[2021-06-18] MEDS: carvedilol 6.25 mg Tablet 3.125 MG PO ×2 (08:58→20:02)
[2021-06-18] MEDS: spironolactone 25 mg Tablet PO (08:58)
[2021-06-18] MEDS: apixaban 5 mg Tablet PO ×2 (08:58→20:03)
--- NOTE | 2021-06-18 11:59 | NPU.GN ---
[facility] Topic:Whine Barrel Activity General Mood of Group: Jan did attend group today. His hygiene was ok and he was social.
--- NOTE | 2021-06-18 12:08 | PC.NURSE ---
PRN Medication Patient reports AH this AM, Vistaril given as ordered with minimal effect. At 1011 patient request Thorazine 100 mg due to continued voices. After assessment reports medication is effective.
[2021-06-18 14:00] VITALS: BP 90/53; PULSE 77; RESP 16; TEMP 36.4; O2SAT 97
--- NOTE | 2021-06-18 15:05 | P.NPUPN_ITS ---
Subjective NPU Subjective: The patient presents today reporting that he understands the situation. He knows guardianship has been filed and we discussed how his discharge while I was gone, was not in keeping with where I thought things were with him and his behavior when he got out once again reflected that. So, with on ce again another suicide attempt, we discussed that there was no way that we could see him being discharged prior to guardianship processing could happen. It is clear, as we discussed, that having a controlled environment is necessary to his safety at this time. He reports that he is feeling better, that the changes that Dr. House made including access to more Thorazine has been very helpful, and he denied any issues. Mental Status Exam MSE Comments: This is an overweight, versus obese, white male, in hospital scrubs, with adequate grooming, and eye contact. No abnormal movements except for mild psychomotor retardation. Cooperative with exam in no acute distress. Speech was normal rate and volume and slightly effeminate. Mood described as pretty good; affect appeared calm. Thought process, organized. Thought content: patient denied any suicidal or homicidal ideation. He did report hearing voices but that they are better. Attention, concentration, and memory appeared intact but were not formally tested. Alert and oriented times three. Insight and judgment are limited, impulse control impaired. Vitals/I&O/Wt Last Vital Signs Temp 97.8 F 06/18/21 06:00 Pulse 79 06/18/21 06:00 Resp 16 06/18/21 06:00 BP 92/76 06/18/21 08:57 Pulse Ox 94 06/18/21 06:00 Data NPU : 06/04/21 09:00 06/04/21 09:00 A&P Assessment and plan (1) Suicidal ideation: Status: Acute (2) Schizophrenia: Status: Chronic (3) Suicide attempt by drug overdose: Status: Acute (4) Cluster B personality disorder: Status: Chronic (5) Chronic anticoagulation: Status: Chronic (6) Intentional drug overdose: Status: Acute (7) Psychosis: Status: Chronic Plan This is a 36-year-old, white male, with long history of reports of psychosis, borderline personality disorder, addiction, and multiple suicide attempts, essentially every time that he has been discharged for the last year or two, who presents awaiting his guardianship hearing. RECOMMENDATION AND PLAN: 1. Continue current medication. 2. Encourage sober living treatment after discharge, at the highest level of care, to which he is willing to commit. 3. Awaiting guardianship hearing. We will maintain him in the hospital until guardianship is approved and we have a safety plan for discharge. Involuntary Hold Information 96 Hour Hold: 96 Hour Involuntary Admission: No Attestations NPU Medical Necessity Statement*: Inpatient hospitalization is medically necessary and the clinically appropriate intervention at this time.? We will monitor medications and make changes as indicated. He will be staying in the hospital until guardianship is established and a plan for discharge can be coordinated with the guardian. Coding Level of Care Code Acute Barrer And Tacker for g Fwd Diagnoses Suicidal ideation R45.851 Schizophrenia F20.9 Suicide attempt by drug overdose T50.902A Cluster B personality disorder F60.89 Chronic anticoagulation Z79.01 Intentional drug overdose T50.902A Psychosis F29
[2021-06-18] MEDS: haloperidol 5 mg Tablet PO (16:00)
[2021-06-18] MEDS: lurasidone 80 mg Tablet PO (16:29)
--- NOTE | 2021-06-18 17:48 | PC.NURSE ---
PRN PT C/O AGITATION AND REQUESTED THORAZINE PRN. PT RETURNED TO NURSE 30 MINUTES LATER TO REPORT THAT THORAZINE WAS INEFFECTIVE. OFFERED REDIRECTION AND GAVE NICOTINE GUM, PT WENT TO DAYROOM TO DISTRACT SELF WITH OTHERS. 1 HOUR AFTER TAKING THORAZINE, REPORTED NO EFFECT FROM MEDICATION. PRN HALDOL GIVEN AT THAT TIME. PT NOW REPORTS THAT THE MEDICATIONS HAVE NOW BEEN EFFECTIVE. NO FURTHER C/O AT THIS TIME.
[2021-06-18] MEDS: chlorPROMazine 50 mg Tablet 250 MG PO (20:02)
[2021-06-18] MEDS: zolpidem 5 mg Tablet 10 MG PO (20:03)
[2021-06-18] MEDS: trazodone 100 mg Tablet PO (20:09)
[2021-06-18 20:25] VITALS: BP 106/65; PULSE 89; RESP 17; TEMP 36.8; O2SAT 95
[2021-06-19 06:00] VITALS: BP 90/59; PULSE 80; RESP 16; TEMP 36.3; O2SAT 93
[2021-06-19] MEDS: chlorPROMazine 50 mg Tablet 100 MG PO ×2 (07:21→13:13)
[2021-06-19] MEDS: buprenorphine-naloxone 4-1 mg Film 2 EACH SUBLINGUAL ×2 (07:21→18:13)
[2021-06-19] MEDS: nicotine 2 mg Gum BUCCAL ×4 (07:25→20:15)
[2021-06-19] MEDS: aspirin 81 mg EC Tablet PO (10:00)
[2021-06-19] MEDS: apixaban 5 mg Tablet PO ×2 (10:00→20:15)
[2021-06-19] MEDS: carvedilol 6.25 mg Tablet 3.125 MG PO ×2 (10:03→20:15)
[2021-06-19] MEDS: losartan 50 mg Tablet 25 MG PO (10:04)
[2021-06-19] MEDS: CLONazepam 0.5 mg Tablet PO ×2 (10:04→13:26)
[2021-06-19] MEDS: spironolactone 25 mg Tablet PO (10:05)
[2021-06-19] MEDS: hyDROXYzine 25 mg Capsule 50 MG PO ×2 (10:59→20:15)
--- NOTE | 2021-06-19 12:15 | P.NPUPN_ITS ---
Subjective NPU Subjective: No significant changes in Jan's condition as he awaits his hearing for guardianship. The guardianship hearing date has been set but there was some confusion as to whether was this Tuesday or he thought he heard it was July 23. We agreed that we would figure out by tomorrow which it was and he had some concerns about his uncle's health and him needing help but we discussed the fact that his behaviors with the last hospitalization that made it hard to imagine him discharging without a controlled environment that his guardian was agreeable to. Mental Status Exam MSE Comments: This is an overweight, versus obese, white male, in hospital scrubs, with adequate grooming, and eye contact. No abnormal movements except for mild psychomotor retardation. Cooperative with exam in no acute distress. Speech was normal rate and volume and slightly effeminate. Mood described as pretty good; affect appeared calm. Thought process, organized. Thought content: patient denied any suicidal or homicidal ideation. He did report hearing voices but that they are better. Attention, concentration, and memory appeared intact but were not formally tested. Alert and oriented times three. Insight and judgment are limited, impulse control impaired.? Vitals/I&O/Wt Last Vital Signs Temp 98.3 F 06/18/21 20:25 Pulse 89 06/18/21 20:25 Resp 17 06/18/21 20:25 BP 106/65 06/18/21 20:25 Pulse Ox 95 06/18/21 20:25 Data NPU : 06/04/21 09:00 06/04/21 09:00 A&P Assessment and plan (1) Suicidal ideation: Status: Acute (2) Schizophrenia: Status: Chronic (3) Suicide attempt by drug overdose: Status: Acute (4) Cluster B personality disorder: Status: Chronic (5) Opiate misuse: Status: Chronic (6) Melena: Status: Acute (7) Abdominal pain: Status: Acute Qualifiers: Abdominal location: generalized Qualified Code(s): R10.84 - Generalized abdominal pain (8) Heel sore: Status: Acute (9) Hypotension: Status: Acute (10) Chronic anticoagulation: Status: Chronic (11) Intentional drug overdose: Status: Acute (12) Non-ischemic cardiomyopathy: Status: Chronic (13) Abnormal ECG: Status: Acute (14) Psychosis: Status: Chronic Plan This is a 36-year-old, white male, with long history of reports of psychosis, borderline personality disorder, addiction, and multiple suicide attempts, essentially every time that he has been discharged for the last year or two, who presents awaiting his guardianship hearing. ? RECOMMENDATION AND PLAN: 1. Continue current medication. 2. Encourage sober living treatment after discharge, at the highest level of care, to which he is willing to commit. 3. Awaiting guardianship hearing. We will maintain him in the hospital until guardianship is approved and we have a safety plan for discharge. Involuntary Hold Information 96 Hour Hold: 96 Hour Involuntary Admission: No Attestations NPU Medical Necessity Statement*: Inpatient hospitalization is medically necessary and the clinically appropriate intervention at this time.? We will monitor medications and make changes as indicated.? He will be staying in the hospital until guardianship is established and a plan for discharge can be coordinated wi th the guardian. Coding Level of Care Code Acute Digital Media Director for g Fwd Diagnoses Suicidal ideation R45.851 Schizophrenia F20.9 Suicide attempt by drug overdose T50.902A Cluster B personality disorder F60.89 Opiate misuse F11.90 Melena K92.1 Abdominal pain R10.84 Abdominal location: generalized Heel sore L98.9 Hypotension I95.9 Chronic anticoagulation Z79.01 Intentional drug overdose T50.902A Non-ischemic cardiomyopathy I42.8 Abnormal ECG R94.31 Psychosis F29
[2021-06-19 14:00] VITALS: BP 99/63; PULSE 108; RESP 18; TEMP 36.8; O2SAT 94
[2021-06-19] MEDS: haloperidol 5 mg Tablet PO (15:26)
[2021-06-19] MEDS: lurasidone 80 mg Tablet PO (16:20)
[2021-06-19] MEDS: chlorPROMazine 50 mg Tablet 250 MG PO (20:15)
[2021-06-19] MEDS: zolpidem 5 mg Tablet 10 MG PO (20:15)
[2021-06-19] MEDS: trazodone 100 mg Tablet PO (20:15)
[2021-06-19 20:47] VITALS: BP 100/68; PULSE 85; RESP 16; TEMP 37.1; O2SAT 95
[2021-06-20 06:00] VITALS: BP 90/54; PULSE 79; RESP 18; TEMP 36.6; O2SAT 92
[2021-06-20] MEDS: chlorPROMazine 50 mg Tablet 100 MG PO ×2 (06:19→12:44)
[2021-06-20] MEDS: buprenorphine-naloxone 4-1 mg Film 2 EACH SUBLINGUAL ×2 (06:19→18:10)
[2021-06-20] MEDS: spironolactone 25 mg Tablet PO (08:57)
[2021-06-20] MEDS: aspirin 81 mg EC Tablet PO (08:57)
[2021-06-20] MEDS: losartan 50 mg Tablet 25 MG PO (08:57)
[2021-06-20] MEDS: apixaban 5 mg Tablet PO ×2 (09:00→20:11)
[2021-06-20] MEDS: carvedilol 6.25 mg Tablet 3.125 MG PO ×2 (09:00→20:11)
[2021-06-20] MEDS: CLONazepam 0.5 mg Tablet PO ×2 (09:01→11:46)
[2021-06-20] MEDS: nicotine 2 mg Gum BUCCAL ×4 (11:23→20:11)
--- NOTE | 2021-06-20 12:43 | P.NPUPN_ITS ---
Subjective NPU Subjective: Patient presents today fully aware of his situation. We were able to determine that it date for programming/guardianship hearing is July 23 but that they are working with the court to move that forward to the earliest opening they can find. Otherwise he denies any changes reports he is doing fine on the medication. Mental Status Exam MSE Comments: This is an overweight, versus obese, white male, in hospital scrubs, with adequate grooming, and eye contact. No abnormal movements except for mild psychomotor retardation. Cooperative with exam in no acute distress. Speech was normal rate and volume and slightly effeminate. Mood described as pretty good; affect appeared calm. Thought process, organized. Thought content: patient denied any suicidal or homicidal ideation. He did report hearing voices but that they are better. Attention, concentration, and memory appeared intact but were not formally tested. Alert and oriented times three. Insight and judgment are limited, impulse control impaired.? Vitals/I&O/Wt Last Vital Signs Temp 97.8 F 06/20/21 06:00 Pulse 79 06/20/21 06:00 Resp 18 06/20/21 06:00 BP 90/54 06/20/21 06:00 Pulse Ox 92 06/20/21 06:00 Data NPU : 06/04/21 09:00 06/04/21 09:00 A&P Assessment and plan (1) Suicidal ideation: Status: Acute (2) Schizophrenia: Status: Chronic (3) Suicide attempt by drug overdose: Status: Acute (4) Cluster B personality disorder: Status: Chronic (5) Opiate misuse: Status: Chronic (6) Melena: Status: Acute (7) Abdominal pain: Status: Acute Qualifiers: Abdominal location: generalized Qualified Code(s): R10.84 - Generalized abdominal pain (8) Heel sore: Status: Acute (9) Hypotension: Status: Acute (10) Chronic anticoagulation: Status: Chronic (11) Non-ischemic cardiomyopathy: Status: Chronic Plan This is a 36-year-old, white male, with long history of reports of psychosis, borderline personality disorder, addiction, and multiple suicide attempts, essentially every time that he has been discharged for the last year or two, who presents awaiting his guardianship hearing. ? RECOMMENDATION AND PLAN: 1. Continue current medication. 2. Encourage sober living treatment after discharge, at the highest level of care, to which he is willing to commit. 3. Awaiting guardianship hearing. Currently scheduled for July 23 but they are attempting to move return earlier date. We will maintain him in the hospital until guardianship is approved and we have a safety plan for discharge. Involuntary Hold Information 96 Hour Hold: 96 Hour Involuntary Admission: No Attestations NPU Medical Necessity Statement*: Inpatient hospitalization is medically necessary and the clinically appropriate intervention at this time.? We will monitor medications and make changes as indicated.? He will be staying in the hospital until guardianship is established and a plan for discharge can be coordinated with the guardian. Coding Level of Care Code Acute Product Safety Coordinator for g Fwd Diagnoses Suicidal ideation R45.851 Schizophrenia F20.9 Suicide attempt by drug overdose T50.902A Cluster B personality disorder F60.89 Opiate misuse F11.90 Melena K92.1 Abdominal pain R10.84 Abdominal location: generalized Heel sore L98.9 Hypotension I95.9 Chronic anticoagulation Z79.01 Non-ischemic cardiomyopathy I42.8
--- NOTE | 2021-06-20 12:47 | PC.NURSE ---
PRN THORAZINE THORAZINE 100 MG GIVEN PO PER PT REQUEST FOR C/O AGITATION R/T AH. WILL CONTINUE TO MONITOR FOR MEDICATION EFFECTIVENESS.
[2021-06-20 14:00] VITALS: BP 100/56; PULSE 78; RESP 16; TEMP 36.5; O2SAT 96
[2021-06-20] MEDS: lurasidone 80 mg Tablet PO (17:38)
[2021-06-20] MEDS: chlorPROMazine 50 mg Tablet 250 MG PO (20:11)
[2021-06-20] MEDS: hyDROXYzine 25 mg Capsule 50 MG PO (20:11)
[2021-06-20] MEDS: trazodone 100 mg Tablet PO (20:12)
[2021-06-20] MEDS: zolpidem 5 mg Tablet 10 MG PO (20:12)
[2021-06-20] MEDS: docusate sodium 100 mg Capsule PO (20:49)
[2021-06-20 20:50] VITALS: BP 125/79; PULSE 76; RESP 18; TEMP 36.7; O2SAT 96
--- NOTE | 2021-06-20 21:32 | PC.NURSE ---
Patient requested medication for anxiety. Visteril was given. He also requested nicotine gum and colace capsule
[2021-06-21 06:00] VITALS: BP 123/78; PULSE 69; RESP 16; TEMP 36.6; O2SAT 96; BMI 31.1
[2021-06-21] MEDS: chlorPROMazine 50 mg Tablet 100 MG PO ×2 (06:16→13:14)
[2021-06-21] MEDS: buprenorphine-naloxone 4-1 mg Film 2 EACH SUBLINGUAL ×2 (06:16→18:05)
--- NOTE | 2021-06-21 08:59 | P.NPUPN_ITS ---
Subjective NPU Subjective: Patient presents today denying any changes since his last conversation with his clinical writer. He understands the situation but reports that he worries about his uncle not being able to take care of himself when he is here. We discussed how him staying well and focusing on those kinds of things could assist him staying out of the hospital but that unfortunately his pattern leaves us little option. We discussed the fact that no placements will consider him due to his number of suicide attempts and they will even listen to the fact that he is never had problems with aggression while in a controlled environment like here. He denies any problems with the medication or any new issues. Mental Status Exam MSE Comments: This is an overweight, versus obese, white male, in hospital scrubs, with adequate grooming, and eye contact. No abnormal movements except for mild psychomotor retardation. Cooperative with exam in no acute distress. Speech was normal rate and volume and slightly effeminate. Mood described as worried about my uncle; affect appeared calm. Thought process, organized. Thought content: patient denied any suicidal or homicidal ideation. He did report hearing voices but that they are better. Attention, concentration, and memory appeared intact but were not formally tested. Alert and oriented times three. Insight and judgment are limited, impulse control impaired.? Vitals/I&O/Wt Last Vital Signs Temp 97.8 F 06/21/21 06:00 Pulse 69 06/21/21 06:00 Resp 16 06/21/21 06:00 BP 123/78 06/21/21 06:00 Pulse Ox 96 06/21/21 06:00 Weight last 48 hrs Weight 101.151 kg Data NPU : 06/04/21 09:00 06/04/21 09:00 A&P Assessment and plan (1) Suicidal ideation: Status: Acute (2) Schizophrenia: Status: Chronic (3) Suicide attempt by drug overdose: Status: Acute (4) Cluster B personality disorder: Status: Chronic (5) Opiate misuse: Status: Chronic (6) Melena: Status: Acute (7) Abdominal pain: Status: Acute Qualifiers: Abdominal location: generalized Qualified Code(s): R10.84 - Generalized abdominal pain (8) Heel sore: Status: Acute (9) Hypotension: Status: Acute (10) Chronic anticoagulation: Status: Chronic (11) Intentional drug overdose: Status: Acute (12) Non-ischemic cardiomyopathy: Status: Chronic (13) Psychosis: Status: Chronic Plan This is a 36-year-old, white male, with long history of reports of psychosis, borderline personality disorder, addiction, and multiple suicide attempts, essentially every time that he has been discharged for the last year or two, who presents awaiting his guardianship hearing. ? RECOMMENDATION AND PLAN: 1. Continue current medication. 2. Encourage sober living treatment after discharge, at the highest level of care, to which he is willing to commit. 3. Awaiting guardianship hearing.? Currently scheduled for July 23 but they are attempting to move return earlier date.? We will maintain him in the hospital until guardianship is approved and we have a safety plan for discharge. Involuntary Hold Information 96 Hour Hold: 96 Hour Involuntary Admission: No Attestations NPU Medical Necessity Statement*: Inpatient hospitalization is medically necessary and the clinically appropriate intervention at this time.? We will monitor medications and make changes as indicated.? He will be staying in the hospital until guardianship is established and a plan for discharge can be coordinated with the guardian. Coding Level of Care Code Acute Chief Client Officer for g Fwd Diagnoses Suicidal ideation R45.851 Schizophrenia F20.9 Suicide attempt by drug overdose T50.902A Cluster B personality disorder F60.89 Opiate misuse F11.90 Melena K92.1 Abdominal pain R10.84 Abdominal location: generalized Heel sore L98.9 Hypotension I95.9 Chronic anticoagulation Z79.01 Intentional drug overdose T50.902A Non-ischemic cardiomyopathy I42.8 Psychosis F29
--- NOTE | 2021-06-21 09:28 | PC.NURSE ---
Pt sleeping upon assessment. Denies pain or needs. Denies SI/HI.
[2021-06-21] MEDS: nicotine 2 mg Gum BUCCAL ×4 (09:54→19:57)
[2021-06-21] MEDS: spironolactone 25 mg Tablet PO (09:54)
[2021-06-21] MEDS: aspirin 81 mg EC Tablet PO (09:54)
[2021-06-21] MEDS: losartan 50 mg Tablet 25 MG PO (09:54)
[2021-06-21] MEDS: CLONazepam 0.5 mg Tablet PO ×2 (09:54→12:23)
[2021-06-21] MEDS: carvedilol 6.25 mg Tablet 3.125 MG PO ×2 (09:54→20:01)
[2021-06-21] MEDS: apixaban 5 mg Tablet PO ×2 (09:54→20:01)
--- NOTE | 2021-06-21 13:16 | PC.NURSE ---
PRN THORAZINE 100 MG GIVEN PO PER PT C/O STATED AGITATION
[2021-06-21 14:00] VITALS: BP 110/64; PULSE 89; RESP 20; TEMP 36.6; O2SAT 93
[2021-06-21] MEDS: lurasidone 80 mg Tablet PO (16:26)
[2021-06-21] MEDS: hyDROXYzine 25 mg Capsule 50 MG PO (19:57)
[2021-06-21] MEDS: docusate sodium 100 mg Capsule PO (19:59)
[2021-06-21] MEDS: zolpidem 5 mg Tablet 10 MG PO (20:01)
[2021-06-21] MEDS: trazodone 100 mg Tablet PO (20:01)
[2021-06-21 20:18] VITALS: BP 133/84; PULSE 92; RESP 17; TEMP 36.6; O2SAT 93
[2021-06-21] MEDS: chlorPROMazine 25 mg Tablet 250 MG PO (20:52)
[2021-06-22 06:00] VITALS: BP 83/44; PULSE 80; RESP 17; TEMP 36.6; O2SAT 90
[2021-06-22] MEDS: buprenorphine-naloxone 4-1 mg Film 2 EACH SUBLINGUAL ×2 (06:06→18:00)
[2021-06-22] MEDS: chlorPROMazine 50 mg Tablet 100 MG PO ×2 (06:06→15:00)
[2021-06-22] MEDS: nicotine 2 mg Gum BUCCAL ×3 (09:39→19:52)
[2021-06-22] MEDS: losartan 50 mg Tablet 25 MG PO (09:39)
[2021-06-22] MEDS: spironolactone 25 mg Tablet PO (09:39)
[2021-06-22] MEDS: CLONazepam 0.5 mg Tablet PO ×2 (09:39→12:53)
[2021-06-22] MEDS: apixaban 5 mg Tablet PO ×2 (09:39→20:00)
[2021-06-22] MEDS: aspirin 81 mg EC Tablet PO (09:40)
[2021-06-22] MEDS: carvedilol 6.25 mg Tablet 3.125 MG PO ×2 (09:40→20:01)
[2021-06-22] MEDS: hyDROXYzine 25 mg Capsule 50 MG PO ×2 (11:35→20:01)
--- NOTE | 2021-06-22 11:35 | PC.NURSE ---
PRN VISTARIL 50 MG GIVEN PO PER PT C/O STATED ANXIETY. PT UP IN GROUP, NO OUTWARD S/S OF ANXIETY NOTED
[2021-06-22 14:00] VITALS: BP 92/67; PULSE 91; RESP 18; TEMP 36.6; O2SAT 92
--- NOTE | 2021-06-22 15:02 | PC.NURSE ---
PRN MED PT GIVEN 100 MG THORAZINE FOR AGITATION, WILL CONTINUE TO MONITOR.
[2021-06-22] MEDS: lurasidone 80 mg Tablet PO (17:11)
--- NOTE | 2021-06-22 18:29 | W.PM.NPUPNS ---
Subjective NPU Subjective: Patient presents today essentially unchanged speaking a lot about wishing he is hearing was not so far in the future and hoping that his uncle was not doing so bad. He feels guilty that is not there to help but we continue to discuss the circumstances that brought us to this moment and hoping that the transportation job titles attempts to move forward his guardianship today are successful. He denies any current issues. Mental Status Exam MSE Comments: This is an overweight, versus obese, white male, in hospital scrubs, with adequate grooming, and eye contact. No abnormal movements except for mild psychomotor retardation. Cooperative with exam in no acute distress. Speech was normal rate and volume and slightly effeminate. Mood described as worried about my uncle; affect appeared calm. Thought process, organized. Thought content: patient denied any suicidal or homicidal ideation. He did report hearing voices but that they are better. Attention, concentration, and memory appeared intact but were not formally tested. Alert and oriented times three. Insight and judgment are limited, impulse control impaired.? Vitals/I&O/Wt Last Vital Signs Temp 98.2 F 06/22/21 20:23 Pulse 80 06/22/21 20:23 Resp 16 06/22/21 20:23 BP 96/62 06/22/21 20:23 Pulse Ox 94 06/22/21 20:23 Weight last 48 hrs Weight 101.151 kg Data NPU : 06/04/21 09:00 06/04/21 09:00 A&P Assessment and plan (1) Suicidal ideation: Status: Acute (2) Schizophrenia: Status: Chronic (3) Suicide attempt by drug overdose: Status: Acute (4) Cluster B personality disorder: Status: Chronic (5) Opiate misuse: Status: Chronic (6) Psychosis: Status: Chronic Plan This is a 36-year-old, white male, with long history of reports of psychosis, borderline personality disorder, addiction, and multiple suicide attempts, essentially every time that he has been discharged for the last year or two, who presents awaiting his guardianship hearing. ? RECOMMENDATION AND PLAN: 1. Continue current medication. 2. Encourage sober living treatment after discharge, at the highest level of care, to which he is willing to commit. 3. Awaiting guardianship hearing.? Currently scheduled for July 23 but they are attempting to move return earlier date.? We will maintain him in the hospital until guardianship is approved and we have a safety plan for discharge. Involuntary Hold Information 96 Hour Hold: 96 Hour Involuntary Admission: No Attestations NPU Medical Necessity Statement*: Inpatient hospitalization is medically necessary and the clinically appropriate intervention at this time.? We will monitor medications and make changes as indicated.? He will be staying in the hospital until guardianship is established and a plan for discharge can be coordinated with the guardian. Coding Level of Care Code Acute Data Virtualization Consultant for [facility] Fwd Diagnoses Suicidal ideation R45.851 Schizophrenia F20.9 Suicide attempt by drug overdose T50.902A Cluster B personality disorder F60.89 Opiate misuse F11.90 Psychosis F29
[2021-06-22] MEDS: docusate sodium 100 mg Capsule PO (20:00)
[2021-06-22] MEDS: trazodone 100 mg Tablet PO (20:00)
[2021-06-22] MEDS: zolpidem 5 mg Tablet 10 MG PO (20:00)
[2021-06-22] MEDS: chlorPROMazine 50 mg Tablet 250 MG PO (20:01)
[2021-06-22 20:23] VITALS: BP 96/62; PULSE 80; RESP 16; TEMP 36.8; O2SAT 94
--- NOTE | 2021-06-22 20:52 | PC.NURSE ---
Patient requested Visteril, Nicotine gum, and colace to take along with his routine scheduled night meds. Medications were given.
[2021-06-23] MEDS: nicotine 2 mg Gum BUCCAL ×4 (04:31→21:13)
[2021-06-23 06:00] VITALS: BP 94/58; PULSE 85; RESP 16; TEMP 36.7; O2SAT 91
[2021-06-23] MEDS: buprenorphine-naloxone 4-1 mg Film 2 EACH SUBLINGUAL ×2 (06:13→19:04)
[2021-06-23] MEDS: chlorPROMazine 50 mg Tablet 100 MG PO ×2 (06:13→12:30)
[2021-06-23] MEDS: carvedilol 6.25 mg Tablet 3.125 MG PO ×2 (08:17→20:32)
[2021-06-23] MEDS: apixaban 5 mg Tablet PO ×2 (08:17→20:33)
[2021-06-23] MEDS: losartan 50 mg Tablet 25 MG PO (08:17)
[2021-06-23] MEDS: aspirin 81 mg EC Tablet PO (08:17)
[2021-06-23] MEDS: spironolactone 25 mg Tablet PO (08:17)
[2021-06-23] MEDS: CLONazepam 0.5 mg Tablet PO ×2 (08:18→12:30)
[2021-06-23] MEDS: hyDROXYzine 25 mg Capsule 50 MG PO ×2 (11:22→20:33)
[2021-06-23 14:00] VITALS: BP 96/56; PULSE 85; RESP 16; TEMP 36.7; O2SAT 96
[2021-06-23] MEDS: lurasidone 80 mg Tablet PO (17:02)
--- NOTE | 2021-06-23 18:57 | W.PM.NPUPNS ---
Subjective NPU Subjective: Patient presents today reporting that nothing is changed and things are status quo. He continues to endorse a desire to go home, reports that he feels like he did not follow through on negative behaviors this time and reports that he understands why things are going the way they are going from the standpoint of seeking guardianship. Denies any additional issues. Mental Status Exam MSE Comments: This is an overweight, versus obese, white male, in hospital scrubs, with adequate grooming, and eye contact. No abnormal movements except for mild psychomotor retardation. Cooperative with exam in no acute distress. Speech was normal rate and volume and slightly effeminate. Mood described as still worried about my uncle; affect appeared calm. Thought process, organized. Thought content: patient denied any suicidal or homicidal ideation. He did report hearing voices but that they are better. Attention, concentration, and memory appeared intact but were not formally tested. Alert and oriented times three. Insight and judgment are limited, impulse control impaired.? Vitals/I&O/Wt Last Vital Signs Temp 98.0 F 06/23/21 22:00 Pulse 82 06/23/21 22:00 Resp 16 06/23/21 22:00 BP 110/69 06/23/21 22:00 Pulse Ox 92 06/23/21 22:00 Data NPU : 06/04/21 09:00 06/04/21 09:00 A&P Assessment and plan (1) Suicidal ideation: Status: Acute (2) Schizophrenia: Status: Chronic (3) Suicide attempt by drug overdose: Status: Acute (4) Cluster B personality disorder: Status: Chronic (5) Opiate misuse: Status: Chronic (6) Chronic anticoagulation: Status: Chronic (7) Psychosis: Status: Chronic Plan This is a 36-year-old, white male, with long history of reports of psychosis, borderline personality disorder, addiction, and multiple suicide attempts, essentially every time that he has been discharged for the last year or two, who presents awaiting his guardianship hearing. ? RECOMMENDATION AND PLAN: 1. Continue current medication. 2. Encourage sober living treatment after discharge, at the highest level of care, to which he is willing to commit. 3. Awaiting guardianship hearing.? Currently scheduled for July 23 but they are attempting to move return earlier date.? We will maintain him in the hospital until guardianship is approved and we have a safety plan for discharge. Involuntary Hold Information 96 Hour Hold: 96 Hour Involuntary Admission: No Attestations NPU Medical Necessity Statement*: Inpatient hospitalization is medically necessary and the clinically appropriate intervention at this time.? We will monitor medications and make changes as indicated.? He will be staying in the hospital until guardianship is established and a plan for discharge can be coordinated with the guardian. Coding Level of Care Code Acute Safety Pin Assembling Machine Operator for [facility] Fwd Diagnoses Suicidal ideation R45.851 Schizophrenia F20.9 Suicide attempt by drug overdose T50.902A Cluster B personality disorder F60.89 Opiate misuse F11.90 Chronic anticoagulation Z79.01 Psychosis F29
[2021-06-23] MEDS: trazodone 100 mg Tablet PO (20:33)
[2021-06-23] MEDS: zolpidem 5 mg Tablet 10 MG PO (20:33)
[2021-06-23] MEDS: chlorPROMazine 50 mg Tablet 250 MG PO (20:35)
[2021-06-23 22:00] VITALS: BP 110/69; PULSE 82; RESP 16; TEMP 36.7; O2SAT 92
[2021-06-24 06:00] VITALS: BP 101/65; PULSE 62; RESP 18; TEMP 36.8; O2SAT 97
[2021-06-24] MEDS: chlorPROMazine 50 mg Tablet 100 MG PO ×2 (06:20→12:21)
[2021-06-24] MEDS: buprenorphine-naloxone 4-1 mg Film 2 EACH SUBLINGUAL ×2 (06:21→18:01)
[2021-06-24] MEDS: calcium carbonate 500 mg Chew Tablet 1000 MG PO (06:43)
[2021-06-24] MEDS: carvedilol 6.25 mg Tablet 3.125 MG PO ×2 (09:42→21:02)
[2021-06-24] MEDS: aspirin 81 mg EC Tablet PO (09:42)
[2021-06-24 09:44] VITALS: BP 101/65
[2021-06-24] MEDS: losartan 50 mg Tablet 25 MG PO (09:44)
[2021-06-24] MEDS: spironolactone 25 mg Tablet PO (09:45)
[2021-06-24] MEDS: apixaban 5 mg Tablet PO ×2 (09:45→21:02)
[2021-06-24] MEDS: nicotine 2 mg Gum BUCCAL ×4 (09:45→21:03)
[2021-06-24] MEDS: CLONazepam 0.5 mg Tablet PO ×2 (09:46→12:00)
--- NOTE | 2021-06-24 11:36 | W.PM.NPUPNS ---
Subjective NPU Subjective: Patient presents today with his most significant resistance to the current treatment approach for some time. We spent a lot of time talking about the fact that his last admission he feels was much more related to not having access to [facility] and it was suicidal behavior which she feels is being punished for returning even though he did not have an active furtherance on his suicidal thinking. We discussed however his body of data is much more suggestive of a concern for lethality than not. He continued to inform him of the goal of hopefully fitting in his guardianship hearing sometime before July 23 when it is currently scheduled. Mental Status Exam MSE Comments: This is an overweight, versus obese, white male, in hospital scrubs, with adequate grooming, and eye contact. No abnormal movements except for mild psychomotor retardation. Cooperative with exam in no acute distress. Speech was normal rate and volume and slightly effeminate. Mood described as frustrated; affect appeared congruent. Thought process, organized. Thought content: patient denied any suicidal or homicidal ideation. He did report hearing voices but that they are better. Attention, concentration, and memory appeared intact but were not formally tested. Alert and oriented times three. Insight and judgment are limited, impulse control impaired.? Vitals/I&O/Wt Last Vital Signs Temp 98.0 F 06/23/21 22:00 Pulse 82 06/23/21 22:00 Resp 16 06/23/21 22:00 BP 110/69 06/23/21 22:00 Pulse Ox 92 06/23/21 22:00 Data NPU : 06/04/21 09:00 06/04/21 09:00 A&P Assessment and plan (1) Suicidal ideation: Status: Acute (2) Schizophrenia: Status: Chronic (3) Cluster B personality disorder: Status: Chronic (4) Opiate misuse: Status: Chronic (5) Chronic anticoagulation: Status: Chronic (6) Psychosis: Status: Chronic Plan This is a 36-year-old, white male, with long history of reports of psychosis, borderline personality disorder, addiction, and multiple suicide attempts, essentially every time that he has been discharged for the last year or two, who presents awaiting his guardianship hearing. ? RECOMMENDATION AND PLAN: 1. Continue current medication. 2. Encourage sober living treatment after discharge, at the highest level of care, to which he is willing to commit. 3. Awaiting guardianship hearing.? Currently scheduled for July 23 but they are attempting to move return earlier date.? We will maintain him in the hospital until guardianship is approved and we have a safety plan for discharge. Involuntary Hold Information 96 Hour Hold: 96 Hour Involuntary Admission: No Attestations NPU Medical Necessity Statement*: Inpatient hospitalization is medically necessary and the clinically appropriate intervention at this time.? We will monitor medications and make changes as indicated.? He will be staying in the hospital until guardianship is established and a plan for discharge can be coordinated with the guardian. Coding Level of Care Code Acute Geophysics Scientist for g Fwd Diagnoses Suicidal ideation R45.851 Schizophrenia F20.9 Cluster B personality disorder F60.89 Opiate misuse F11.90 Chronic anticoagulation Z79.01 Psychosis F29
--- NOTE | 2021-06-24 11:44 | NPU.GN ---
[facility] Topic:Hai Mary General Mood of Group: Patient did not attend group today.
[2021-06-24] MEDS: alum-mag-hydroxide-sime 30 mL UDC 15 ML PO (11:57)
--- NOTE | 2021-06-24 12:59 | PC.NURSE ---
PT C/O ANXIETY AND REQUESTED THORAZINE PRN. GIVEN AT 1221. PT NOW RESTING CALMLY IN ROOM. NO FURTHER C/O AT THIS TIME. HAS HAD C/O OF HEARTBURN. REQUESTED SOMETHING OTHER THAN THE TUMS. GAVE ORDER TO START MAALOX PRN.
[2021-06-24 13:15] VITALS: BP 109/72; PULSE 95; RESP 18; TEMP 36.4; O2SAT 91
[2021-06-24] MEDS: hyDROXYzine 25 mg Capsule 50 MG PO ×2 (15:20→21:03)
[2021-06-24] MEDS: alum-mag-hydroxide-sime 30 mL UDC PO (15:34)
[2021-06-24] MEDS: lurasidone 80 mg Tablet PO (17:07)
--- NOTE | 2021-06-24 18:03 | PC.NURSE ---
PRN Medication C/O indigestion and request PRN. Maalox given as ordered. Reassessed one hour later and patient reports effectiveness. No other intervention needed at this time
[2021-06-24 19:28] VITALS: BP 100/66; PULSE 99; RESP 16; TEMP 36.6; O2SAT 94
[2021-06-24] MEDS: trazodone 50 mg Tablet PO (21:02)
[2021-06-24] MEDS: trazodone 100 mg Tablet PO (21:02)
[2021-06-24] MEDS: chlorPROMazine 50 mg Tablet 250 MG PO (21:03)
[2021-06-24] MEDS: zolpidem 5 mg Tablet 10 MG PO (21:03)
[2021-06-25 06:00] VITALS: BP 97/59; PULSE 76; RESP 16; TEMP 36.6; O2SAT 90
[2021-06-25] MEDS: chlorPROMazine 50 mg Tablet 100 MG PO ×3 (06:04→15:21)
[2021-06-25] MEDS: buprenorphine-naloxone 4-1 mg Film 2 EACH SUBLINGUAL ×2 (06:04→18:13)
[2021-06-25] MEDS: spironolactone 25 mg Tablet PO (09:03)
[2021-06-25] MEDS: nicotine 2 mg Gum BUCCAL ×5 (09:03→20:35)
[2021-06-25] MEDS: aspirin 81 mg EC Tablet PO (09:03)
[2021-06-25] MEDS: apixaban 5 mg Tablet PO ×2 (09:03→20:35)
[2021-06-25 09:04] VITALS: BP 97/59
[2021-06-25] MEDS: losartan 50 mg Tablet 25 MG PO (09:04)
[2021-06-25] MEDS: CLONazepam 0.5 mg Tablet PO ×2 (09:04→12:13)
[2021-06-25] MEDS: carvedilol 6.25 mg Tablet 3.125 MG PO (09:04)
[2021-06-25] MEDS: hyDROXYzine 25 mg Capsule 50 MG PO ×2 (10:55→20:37)
--- NOTE | 2021-06-25 12:32 | NPU.GN ---
[facility] Topic:Diccarlos manuel Breaker General Mood of Group Patient did attend group today. His hygiene was poor. Patient was social with others. Patient is upset about still being on NPU due to court and guardian / placement issues.
[2021-06-25] MEDS: acetaminophen 325 mg Tablet 650 MG PO (13:05)
[2021-06-25 14:00] VITALS: BP 108/74; PULSE 90; RESP 17; TEMP 36.3; O2SAT 94
[2021-06-25] MEDS: lurasidone 80 mg Tablet PO (15:34)
--- NOTE | 2021-06-25 17:34 | P.NPUPN_ITS ---
Subjective NPU Subjective: Patient presents today continuing to lobby for discharge and reconsideration given that he did not try to kill himself his last time. We discussed the fact that his hearing is hopefully will be moved up and he did get served for that hearing finally. He denied any changes. Reported eating and sleeping well and reports he is feeling ready to safely be discharged. Mental Status Exam MSE Comments: This is an overweight, versus obese, white male, in hospital scrubs, with adequate grooming, and eye contact. No abnormal movements except for mild psychomotor retardation. Cooperative with exam in no acute distress. Speech was normal rate and volume and slightly effeminate. Mood described as good; affect appeared congruent. Thought process, organized. Thought content: patient denied any suicidal or homicidal ideation. He did report hearing voices but that they are better. Attention, concentration, and memory appeared intact but were not formally tested. Alert and oriented times three. Insight and judgment are limited, impulse control impaired.? Vitals/I&O/Wt Last Vital Signs Temp 97.1 F L 06/25/21 21:25 Pulse 86 06/25/21 21:25 Resp 16 06/25/21 21:25 BP 95/61 06/25/21 21:25 Pulse Ox 93 06/25/21 21:25 Data NPU : 06/04/21 09:00 06/04/21 09:00 A&P Assessment and plan (1) Suicidal ideation: Status: Acute (2) Schizophrenia: Status: Chronic (3) Cluster B personality disorder: Status: Chronic (4) Opiate misuse: Status: Chronic (5) Psychosis: Status: Chronic Plan This is a 36-year-old, white male, with long history of reports of psychosis, borderline personality disorder, addiction, and multiple suicide attempts, essentially every time that he has been discharged for the last year or two, who presents awaiting his guardianship hearing. ? RECOMMENDATION AND PLAN: 1. Continue current medication. 2. Encourage sober living treatment after discharge, at the highest level of care, to which he is willing to commit. 3. Awaiting guardianship hearing.? Currently scheduled for July 23 but they are attempting to move return earlier date.? We will maintain him in the hospital until guardianship is approved and we have a safety plan for discharge. Involuntary Hold Information 96 Hour Hold: 96 Hour Involuntary Admission: No Attestations NPU Medical Necessity Statement*: Inpatient hospitalization is medically necessary and the clinically appropriate intervention at this time.? We will monitor medications and make changes as indicated.? He will be staying in the hospital until guardianship is established and a plan for discharge can be coordinated with the guardian. Coding Level of Care Code Acute Real Estate Internship for g Fwd Diagnoses Suicidal ideation R45.851 Schizophrenia F20.9 Cluster B personality disorder F60.89 Opiate misuse F11.90 Psychosis F29
[2021-06-25] MEDS: chlorPROMazine 50 mg Tablet 250 MG PO (20:34)
[2021-06-25] MEDS: zolpidem 5 mg Tablet 10 MG PO (20:34)
[2021-06-25 21:25] VITALS: BP 95/61; PULSE 86; RESP 16; TEMP 36.2; O2SAT 93
[2021-06-25] MEDS: trazodone 100 mg Tablet PO (22:38)
--- NOTE | 2021-06-26 | PC.NURSE ---
PRN ADMIN Patient c/o of anxiety and requested nicotine gum, PRN hydroxyzine and nicorette given as ordered with noted effectiveness. Patient came back about an hr and half later and c/o trouble getting to sleep. PRN trazodone given with noted effectiveness.
[2021-06-26] MEDS: chlorPROMazine 50 mg Tablet 100 MG PO ×3 (06:15→15:19)
[2021-06-26] MEDS: buprenorphine-naloxone 4-1 mg Film 2 EACH SUBLINGUAL ×2 (06:16→18:04)
[2021-06-26 06:43] VITALS: BP 84/56; PULSE 125; RESP 18; O2SAT 92
--- NOTE | 2021-06-26 06:55 | PC.NURSE ---
Patient BP this AM 84/53, notified Dr. Escobar per phone, offered pt fluids and pt refused any fluids, per dR. Escobar, hold BP meds this AM til further evaluation.
[2021-06-26] MEDS: apixaban 5 mg Tablet PO ×2 (08:24→20:11)
[2021-06-26] MEDS: CLONazepam 0.5 mg Tablet PO ×2 (08:24→12:30)
[2021-06-26] MEDS: aspirin 81 mg EC Tablet PO (08:24)
--- NOTE | 2021-06-26 10:43 | NPU.GN ---
[facility] Topic: Hai Mary General Mood of Group: Patient did not attend group he was sleeping.
[2021-06-26] MEDS: nicotine 2 mg Gum BUCCAL ×4 (10:52→20:11)
[2021-06-26 13:51] VITALS: BP 97/63; PULSE 89; RESP 17; TEMP 36.7; O2SAT 94
[2021-06-26] MEDS: lurasidone 80 mg Tablet PO (16:03)
[2021-06-26] MEDS: dicyclomine 10 mg Capsule PO ×2 (16:37→20:31)
--- NOTE | 2021-06-26 16:44 | W.PM.NPUPNS ---
Subjective NPU Subjective: Patient resents today with no significant changes. He continues to appear well as often as occurred prior to discharge and is continuing to inquire possibilities of him going home versus placement and still expressing concerns about his date for guardianship hearing being in 4 weeks. Otherwise he denies any problems reports eating and sleeping well. Mental Status Exam MSE Comments: This is an overweight, versus obese, white male, in hospital scrubs, with adequate grooming, and eye contact. No abnormal movements except for mild psychomotor retardation. Cooperative with exam in no acute distress. Speech was normal rate and volume and slightly effeminate. Mood described as good; affect appeared congruent. Thought process, organized. Thought content: patient denied any suicidal or homicidal ideation. He did report hearing voices but that they are better. Attention, concentration, and memory appeared intact but were not formally tested. Alert and oriented times three. Insight and judgment are limited, impulse control impaired.? Vitals/I&O/Wt Last Vital Signs Temp 98.0 F 06/26/21 13:51 Pulse 89 06/26/21 13:51 Resp 17 06/26/21 13:51 BP 97/63 06/26/21 13:51 Pulse Ox 94 06/26/21 13:51 Data NPU : 06/04/21 09:00 06/04/21 09:00 A&P Assessment and plan (1) Suicidal ideation: Status: Acute (2) Schizophrenia: Status: Chronic (3) Cluster B personality disorder: Status: Chronic (4) Opiate misuse: Status: Chronic (5) Psychosis: Status: Chronic (6) Hypotension: Status: Acute Plan This is a 36-year-old, white male, with long history of reports of psychosis, borderline personality disorder, addiction, and multiple suicide attempts, essentially every time that he has been discharged for the last year or two, who presents awaiting his guardianship hearing. ? RECOMMENDATION AND PLAN: 1. Continue current medication. 2. Encourage sober living treatment after discharge, at the highest level of care, to which he is willing to commit. 3. Awaiting guardianship hearing.? Currently scheduled for July 23 but they are attempting to move return earlier date.? We will maintain him in the hospital until guardianship is approved and we have a safety plan for discharge. Involuntary Hold Information 96 Hour Hold: 96 Hour Involuntary Admission: No Attestations NPU Medical Necessity Statement*: Inpatient hospitalization is medically necessary and the clinically appropriate intervention at this time.? We will monitor medications and make changes as indicated.? He will be staying in the hospital until guardianship is established and a plan for discharge can be coordinated with the guardian. Coding Level of Care Code Acute Firer Portable Boiler for [facility] Fwd Diagnoses Suicidal ideation R45.851 Schizophrenia F20.9 Cluster B personality disorder F60.89 Opiate misuse F11.90 Psychosis F29 Hypotension I95.9
[2021-06-26] MEDS: zolpidem 5 mg Tablet 10 MG PO (20:10)
[2021-06-26] MEDS: hyDROXYzine 25 mg Capsule 50 MG PO (20:11)
[2021-06-26] MEDS: trazodone 100 mg Tablet PO (20:11)
[2021-06-26] MEDS: chlorPROMazine 50 mg Tablet 250 MG PO (20:11)
[2021-06-26 20:34] VITALS: BP 97/66; PULSE 89; RESP 17; O2SAT 94
[2021-06-27 05:56] VITALS: BP 102/61; PULSE 89; RESP 15; O2SAT 92
[2021-06-27] MEDS: buprenorphine-naloxone 4-1 mg Film 2 EACH SUBLINGUAL ×2 (06:42→18:02)
[2021-06-27] MEDS: chlorPROMazine 50 mg Tablet 100 MG PO ×2 (06:42→13:50)
[2021-06-27] MEDS: apixaban 5 mg Tablet PO ×2 (08:52→20:02)
[2021-06-27] MEDS: nicotine 2 mg Gum BUCCAL ×5 (08:52→20:03)
[2021-06-27] MEDS: CLONazepam 0.5 mg Tablet PO ×2 (08:52→12:19)
[2021-06-27] MEDS: aspirin 81 mg EC Tablet PO (08:52)
[2021-06-27] MEDS: dicyclomine 10 mg Capsule PO ×3 (09:15→17:28)
--- NOTE | 2021-06-27 09:41 | ECG_ITS ---
[facility] Test Date: 2021-06-27 Pat Name: Shayan Dickson Department: Room: 131 Gender: Male Caregivers Homecare: : 1985 Requested By: Jag Escobar Order Number: [id number] Krzysztof MD: Gee Hernandez M.D. Measurements Intervals [place] Rate: 73 P: 47 WI: 166 QRS: -46 QRSD: 104 T: 52 QT: 420 QTc: 466 Interpretive Statements SINUS RHYTHM LEFT AXIS DEVIATION [QRS AXIS < -30] PATTERN CONSISTENT WITH PULMONARY DISEASE Compared to ECG 06/03/2021 10:26:08 Sinus tachycardia no longer present Electronically Signed On 06-27-2021 11:38:08 CDT by Gee Hernandez M.D. [id number]
[2021-06-27 09:57] VITALS: BP 107/73
[2021-06-27] MEDS: spironolactone 25 mg Tablet PO (09:57)
[2021-06-27] MEDS: losartan 50 mg Tablet 25 MG PO (09:57)
[2021-06-27] MEDS: carvedilol 6.25 mg Tablet 3.125 MG PO ×2 (09:57→20:02)
[2021-06-27] MEDS: docusate sodium 100 mg Capsule PO (12:38)
[2021-06-27 14:00] VITALS: BP 101/69; PULSE 85; RESP 16; TEMP 37.3; O2SAT 95
[2021-06-27] MEDS: acetaminophen 325 mg Tablet 650 MG PO ×2 (14:12→21:12)
[2021-06-27] MEDS: haloperidol 5 mg Tablet PO (14:55)
--- NOTE | 2021-06-27 15:31 | W.PM.NPUPNS ---
Subjective NPU Subjective: Patient presents today with no significant changes and no changes in the conversation. We continue to discuss his desire to discharge in his belief that he would not attempt to kill himself as he has after almost every discharge in the last 6 to 7 months. He continues to express worries about his uncle who called and certainly tends to increase patient's worry about not being home. He denies any problems with the medication and reports that he is eating and sleeping fine. Mental Status Exam MSE Comments: This is an overweight, versus obese, white male, in hospital scrubs, with adequate grooming, and eye contact. No abnormal movements except for mild psychomotor retardation. Cooperative with exam in no acute distress. Speech was normal rate and volume and slightly effeminate. Mood described as good; affect appeared congruent. Thought process, organized. Thought content: patient denied any suicidal or homicidal ideation. He did report hearing voices but that they are better. Attention, concentration, and memory appeared intact but were not formally tested. Alert and oriented times three. Insight and judgment are limited, impulse control impaired.? Vitals/I&O/Wt Last Vital Signs Temp 99.1 F 06/27/21 14:00 Pulse 85 06/27/21 14:00 Resp 16 06/27/21 14:00 BP 101/69 06/27/21 14:00 Pulse Ox 95 06/27/21 14:00 Weight last 48 hrs Weight 113.852 kg Data NPU : 06/04/21 09:00 06/04/21 09:00 A&P Assessment and plan (1) Suicidal ideation: Status: Acute (2) Schizophrenia: Status: Chronic (3) Cluster B personality disorder: Status: Chronic (4) Opiate misuse: Status: Chronic (5) Hypotension: Status: Acute (6) Chronic anticoagulation: Status: Chronic (7) Psychosis: Status: Chronic Plan This is a 36-year-old, white male, with long history of reports of psychosis, borderline personality disorder, addiction, and multiple suicide attempts, essentially every time that he has been discharged for the last year or two, who presents awaiting his guardianship hearing. ? RECOMMENDATION AND PLAN: 1. Continue current medication. 2. Encourage sober living treatment after discharge, at the highest level of care, to which he is willing to commit. 3. Awaiting guardianship hearing.? Currently scheduled for July 23 but they are attempting to move return earlier date.? We will maintain him in the hospital until guardianship is approved and we have a safety plan for discharge. Involuntary Hold Information 96 Hour Hold: 96 Hour Involuntary Admission: No Attestations NPU Medical Necessity Statement*: Inpatient hospitalization is medically necessary and the clinically appropriate intervention at this time.? We will monitor medications and make changes as indicated.? He will be staying in the hospital until guardianship is established and a plan for discharge can be coordinated with the guardian. Coding Level of Care Code Acute Agricultural Loan Officer for [facility] Fwd Diagnoses Suicidal ideation R45.851 Schizophrenia F20.9 Cluster B personality disorder F60.89 Opiate misuse F11.90 Hypotension I95.9 Chronic anticoagulation Z79.01 Psychosis F29
[2021-06-27] MEDS: lurasidone 80 mg Tablet PO (16:07)
--- NOTE | 2021-06-27 17:01 | PC.NURSE ---
Shift note Patient has been pleasant and interacted well with staff and patients this shift. He has been up in dayroom watching TV with other patients this shift. He has reported that he has continued to have auditory hallucinations that are negative in nature. He has received prn Thorazine and haldol this shift.
[2021-06-27] MEDS: chlorPROMazine 50 mg Tablet 250 MG PO (20:00)
[2021-06-27] MEDS: hyDROXYzine 25 mg Capsule 50 MG PO (20:00)
[2021-06-27] MEDS: zolpidem 5 mg Tablet 10 MG PO (20:02)
[2021-06-27] MEDS: trazodone 100 mg Tablet PO (20:02)
[2021-06-27 20:43] VITALS: BP 118/76; PULSE 83; RESP 17; TEMP 36.3; O2SAT 95
[2021-06-27] MEDS: trazodone 50 mg Tablet PO (21:52)
--- NOTE | 2021-06-27 22:06 | PC.NURSE ---
1999- He was given vistaril for anxiety and trazodone for sleep. Trazodone was not effective. \ 2151- Repeat trazodone given.
[2021-06-28 02:49] VITALS: BMI 34.9
[2021-06-28 06:00] VITALS: BP 94/59; PULSE 80; RESP 16; TEMP 36.5; O2SAT 94
[2021-06-28] MEDS: chlorPROMazine 50 mg Tablet 100 MG PO ×3 (06:20→15:53)
[2021-06-28] MEDS: buprenorphine-naloxone 4-1 mg Film 2 EACH SUBLINGUAL ×2 (06:20→17:21)
[2021-06-28 08:24] VITALS: BP 94/59
[2021-06-28] MEDS: apixaban 5 mg Tablet PO ×2 (08:24→20:08)
[2021-06-28] MEDS: nicotine 2 mg Gum BUCCAL ×5 (08:24→20:08)
[2021-06-28] MEDS: dicyclomine 10 mg Capsule PO ×2 (08:24→20:08)
[2021-06-28] MEDS: CLONazepam 0.5 mg Tablet PO ×2 (08:24→12:21)
[2021-06-28] MEDS: aspirin 81 mg EC Tablet PO (08:24)
[2021-06-28] MEDS: spironolactone 25 mg Tablet PO (08:24)
[2021-06-28] MEDS: losartan 50 mg Tablet 25 MG PO (08:24)
[2021-06-28] MEDS: carvedilol 6.25 mg Tablet 3.125 MG PO ×2 (08:25→20:09)
[2021-06-28] MEDS: ammonium lactate lotion 226 gm Btl 1 APPLIC TOPICAL ×2 (08:59→17:44)
--- NOTE | 2021-06-28 09:31 | W.PM.NPUPNS ---
Subjective NPU Subjective: Patient presents today with no significant changes and no changes in the subject matter. We continue to discuss him going home versus placement, the amount of time until his hearing though he reports he is resigned himself that would likely be July 23, 2021. He denies any symptoms or new problems here in the hospital reports he is eating and sleeping fine. Mental Status Exam MSE Comments: This is an overweight, versus obese, white male, in hospital scrubs, with adequate grooming, and eye contact. No abnormal movements except for mild psychomotor retardation. Cooperative with exam in no acute distress. Speech was normal rate and volume and slightly effeminate. Mood described as good; affect appeared congruent. Thought process, organized. Thought content: patient denied any suicidal or homicidal ideation. He did report hearing voices but that they are better. Attention, concentration, and memory appeared intact but were not formally tested. Alert and oriented times three. Insight and judgment are limited, impulse control impaired.? Vitals/I&O/Wt Last Vital Signs Temp 97.7 F 06/28/21 06:00 Pulse 80 06/28/21 06:00 Resp 16 06/28/21 06:00 BP 94/59 06/28/21 08:24 Pulse Ox 94 06/28/21 06:00 Weight last 48 hrs Weight 113.852 kg Data NPU : 06/04/21 09:00 06/04/21 09:00 A&P Assessment and plan (1) Suicidal ideation: Status: Acute (2) Schizophrenia: Status: Chronic (3) Cluster B personality disorder: Status: Chronic (4) Opiate misuse: Status: Chronic (5) Psychosis: Status: Chronic (6) Chronic anticoagulation: Status: Chronic Plan This is a 36-year-old, white male, with long history of reports of psychosis, borderline personality disorder, addiction, and multiple suicide attempts, essentially every time that he has been discharged for the last year or two, who presents awaiting his guardianship hearing. ? RECOMMENDATION AND PLAN: 1. Continue current medication. 2. Encourage sober living treatment after discharge, at the highest level of care, to which he is willing to commit. 3. Awaiting guardianship hearing.? Currently scheduled for July 23 but they are attempting to move return earlier date.? We will maintain him in the hospital until guardianship is approved and we have a safety plan for discharge. Involuntary Hold Information 96 Hour Hold: 96 Hour Involuntary Admission: No Attestations NPU Medical Necessity Statement*: Inpatient hospitalization is medically necessary and the clinically appropriate intervention at this time.? We will monitor medications and make changes as indicated.? He will be staying in the hospital until guardianship is established and a plan for discharge can be coordinated with the guardian. Coding Level of Care Code Acute Utility Repairer for [facility] Fwd Diagnoses Suicidal ideation R45.851 Schizophrenia F20.9 Cluster B personality disorder F60.89 Opiate misuse F11.90 Psychosis F29 Chronic anticoagulation Z79.01
[2021-06-28 14:00] VITALS: BP 93/62; PULSE 93; RESP 16; TEMP 36.7; O2SAT 93
[2021-06-28] MEDS: haloperidol 5 mg Tablet PO (14:05)
[2021-06-28] MEDS: loperamide 2 mg Capsule PO (14:27)
[2021-06-28] MEDS: hyDROXYzine 25 mg Capsule 50 MG PO ×2 (15:53→21:50)
[2021-06-28] MEDS: lurasidone 80 mg Tablet PO (16:17)
--- NOTE | 2021-06-28 18:08 | PC.NURSE ---
New Orders Patient up to nurses station asking if Dr. Escobar increased his Trazodone at bedtime. This RN reviewed chart and order is still for [address] Escobar new orders received to increase Trazodone to 250 mg at HS scheduled. Orders placed in chart. Patient notified of new orders. Education completed on increase. Verbalizes understanding. ALL questions answered and support voiced.
[2021-06-28 20:08] VITALS: BP 92/55; PULSE 86; RESP 16; TEMP 36.6; O2SAT 95
[2021-06-28] MEDS: zolpidem 5 mg Tablet 10 MG PO (20:08)
[2021-06-28] MEDS: chlorPROMazine 50 mg Tablet 250 MG PO (20:08)
[2021-06-28] MEDS: trazodone 50 mg Tablet PO (20:09)
[2021-06-28] MEDS: trazodone 100 mg Tablet 200 MG PO (20:09)
--- NOTE | 2021-06-28 20:32 | PC.NURSE ---
Patient requested Bentyl and Nictotine gum this evening with his night meds.
[2021-06-29 06:00] VITALS: BP 102/65; PULSE 72; RESP 17; TEMP 36.6; O2SAT 94
[2021-06-29] MEDS: buprenorphine-naloxone 4-1 mg Film 2 EACH SUBLINGUAL ×2 (06:04→18:03)
[2021-06-29] MEDS: chlorPROMazine 50 mg Tablet 100 MG PO ×3 (06:10→15:33)
[2021-06-29 08:14] VITALS: BP 102/65
[2021-06-29] MEDS: carvedilol 6.25 mg Tablet 3.125 MG PO ×2 (08:14→20:06)
[2021-06-29] MEDS: spironolactone 25 mg Tablet PO (08:14)
[2021-06-29] MEDS: losartan 50 mg Tablet 25 MG PO (08:14)
[2021-06-29] MEDS: ammonium lactate lotion 226 gm Btl 1 APPLIC TOPICAL ×2 (08:14→16:59)
[2021-06-29] MEDS: apixaban 5 mg Tablet PO ×2 (08:15→20:07)
[2021-06-29] MEDS: CLONazepam 0.5 mg Tablet PO ×2 (08:15→12:04)
[2021-06-29] MEDS: aspirin 81 mg EC Tablet PO (08:15)
[2021-06-29] MEDS: dicyclomine 10 mg Capsule PO ×3 (08:44→18:03)
[2021-06-29] MEDS: loperamide 2 mg Capsule PO ×3 (10:26→21:02)
--- NOTE | 2021-06-29 10:27 | PC.NURSE ---
Prn note Patient reports 5 loose stools this am. Imodium given for loose stools.
[2021-06-29] MEDS: nicotine 2 mg Gum BUCCAL ×4 (11:15→20:07)
--- NOTE | 2021-06-29 11:42 | PC.NURSE ---
Addendum entered by Aide Hickman RN 06/29/21 13:23: Prn note Thorazine partially effective. patient states he still hears the voices. Thorazine only lasts about an hour Original Note: Prn note Patient reports increase in negative voices. Prn Thorazine given for voices.
[2021-06-29] MEDS: haloperidol 5 mg Tablet PO (13:22)
--- NOTE | 2021-06-29 13:24 | PC.NURSE ---
Prn note Haldol given for negative voices.
[2021-06-29 14:00] VITALS: BP 100/70; PULSE 94; RESP 18; TEMP 36.9; O2SAT 95
--- NOTE | 2021-06-29 15:56 | PC.NURSE ---
Prn note Patient continues to struggle with negative voices. Prn thorazine given.
--- NOTE | 2021-06-29 16:15 | PC.SOCIAL ---
Patient attended group and participated.
--- NOTE | 2021-06-29 16:23 | W.PM.NPUPNS ---
Subjective NPU Subjective: Patient presents today reporting that nothing is changed. He still waiting on his court date and hoping that the court date gets moved out. He does report that he is having some difficulty with his GI system still having diarrhea and not having anything seem to slow down. He also reports that he is burping or belching and patient has the blood one time that he had Salmonella. We discussed considering a hospitalist consult in the morning. Mental Status Exam MSE Comments: This is an overweight, versus obese, white male, in hospital scrubs, with adequate grooming, and eye contact. No abnormal movements except for mild psychomotor retardation. Cooperative with exam in no acute distress. Speech was normal rate and volume and slightly effeminate. Mood described as good; affect appeared congruent. Thought process, organized. Thought content: patient denied any suicidal or homicidal ideation. He did report hearing voices but that they are better. Attention, concentration, and memory appeared intact but were not formally tested. Alert and oriented times three. Insight and judgment are limited, impulse control impaired.? Vitals/I&O/Wt Last Vital Signs Temp 98.4 F 06/29/21 14:00 Pulse 94 06/29/21 14:00 Resp 18 06/29/21 14:00 BP 100/70 06/29/21 14:00 Pulse Ox 95 06/29/21 14:00 Weight last 48 hrs Weight 113.852 kg Data NPU : 06/04/21 09:00 06/04/21 09:00 A&P Assessment and plan (1) Suicidal ideation: Status: Acute (2) Schizophrenia: Status: Chronic (3) Cluster B personality disorder: Status: Chronic (4) Opiate misuse: Status: Chronic (5) Hypotension: Status: Acute (6) Chronic anticoagulation: Status: Chronic (7) Psychosis: Status: Chronic Plan This is a 36-year-old, white male, with long history of reports of psychosis, borderline personality disorder, addiction, and multiple suicide attempts, essentially every time that he has been discharged for the last year or two, who presents awaiting his guardianship hearing. ? RECOMMENDATION AND PLAN: 1. Continue current medication. 2. Encourage sober living treatment after discharge, at the highest level of care, to which he is willing to commit. 3. Awaiting guardianship hearing.? Currently scheduled for July 23 but they are attempting to move return earlier date.? We will maintain him in the hospital until guardianship is approved and we have a safety plan for discharge. 4. Consider hospitalist consult in the morning. Involuntary Hold Information 96 Hour Hold: 96 Hour Involuntary Admission: No Attestations NPU Medical Necessity Statement*: Inpatient hospitalization is medically necessary and the clinically appropriate intervention at this time.? We will monitor medications and make changes as indicated.? He will be staying in the hospital until guardianship is established and a plan for discharge can be coordinated with the guardian. Coding Level of Care Code Acute Accounts Payable Technician for [facility] Fwd Diagnoses Suicidal ideation R45.851 Schizophrenia F20.9 Cluster B personality disorder F60.89 Opiate misuse F11.90 Hypotension I95.9 Chronic anticoagulation Z79.01 Psychosis F29
[2021-06-29] MEDS: lurasidone 80 mg Tablet PO (16:58)
[2021-06-29] MEDS: zolpidem 5 mg Tablet 10 MG PO (20:06)
[2021-06-29] MEDS: hyDROXYzine 25 mg Capsule 50 MG PO (20:07)
[2021-06-29] MEDS: trazodone 100 mg Tablet 200 MG PO (20:07)
[2021-06-29] MEDS: chlorPROMazine 50 mg Tablet 250 MG PO (20:07)
[2021-06-29] MEDS: trazodone 50 mg Tablet PO (20:07)
[2021-06-29 20:41] VITALS: BP 100/67; PULSE 84; RESP 20; TEMP 36.8; O2SAT 95
[2021-06-30] MEDS: alum-mag-hydroxide-sime 30 mL UDC PO (01:19)
[2021-06-30 06:00] VITALS: BP 97/64; PULSE 99; RESP 16; TEMP 36.7; O2SAT 95
[2021-06-30] MEDS: chlorPROMazine 50 mg Tablet 100 MG PO ×2 (06:21→13:28)
[2021-06-30] MEDS: buprenorphine-naloxone 4-1 mg Film 2 EACH SUBLINGUAL ×2 (06:22→18:17)
[2021-06-30] MEDS: hyDROXYzine 25 mg Capsule 50 MG PO ×2 (09:30→20:40)
[2021-06-30] MEDS: losartan 50 mg Tablet 25 MG PO (09:31)
[2021-06-30] MEDS: CLONazepam 0.5 mg Tablet PO ×2 (09:31→12:59)
[2021-06-30] MEDS: aspirin 81 mg EC Tablet PO (09:31)
[2021-06-30] MEDS: spironolactone 25 mg Tablet PO (09:31)
[2021-06-30] MEDS: apixaban 5 mg Tablet PO ×2 (09:31→20:45)
[2021-06-30] MEDS: nicotine 2 mg Gum BUCCAL ×3 (09:31→20:43)
[2021-06-30] MEDS: carvedilol 6.25 mg Tablet 3.125 MG PO ×2 (09:32→20:42)
[2021-06-30] MEDS: ammonium lactate lotion 226 gm Btl 1 APPLIC TOPICAL (10:06)
[2021-06-30] MEDS: acetaminophen 325 mg Tablet 650 MG PO ×2 (10:45→20:51)
--- NOTE | 2021-06-30 11:17 | PC.SOCIAL ---
Patient did not attend group.
[2021-06-30] MEDS: dicyclomine 10 mg Capsule PO ×2 (13:41→21:29)
[2021-06-30 14:00] VITALS: BP 107/75; PULSE 93; RESP 17; TEMP 36.7; O2SAT 92
--- NOTE | 2021-06-30 14:02 | PC.NURSE ---
at 1358 patient received nicorette gum.
[2021-06-30] MEDS: loperamide 2 mg Capsule PO ×2 (14:32→21:29)
[2021-06-30] MEDS: haloperidol 5 mg Tablet PO (15:04)
--- NOTE | 2021-06-30 15:19 | PC.NURSE ---
PT C/O ANXIETY AND TOOK PRN THORAZINE AT 1328. SOMEWHAT HELPFUL FOR A PERIOD BUT INCREASED ANXIETY AGAIN AT 1505. TOOK PRN HALDOL AT THAT TIME. STAFF WILL MONITOR FOR EFFECTIVENESS.
--- NOTE | 2021-06-30 16:03 | W.PM.NPUPNS ---
Subjective NPU Subjective: Patient presents today reporting that things are unchanged except for some improvement in his complaints. He reports he took the advice to slow down on what he was eating in a modified clear diet type approach and reports that he did not have the problems like he was having today for reporting and try that for a few days before returning to eating normally. Otherwise he denies any issues overall and is just waiting for his hearing. Mental Status Exam MSE Comments: This is an overweight, versus obese, white male, in hospital scrubs, with adequate grooming, and eye contact. No abnormal movements except for mild psychomotor retardation. Cooperative with exam in no acute distress. Speech was normal rate and volume and slightly effeminate. Mood described as good; affect appeared congruent. Thought process, organized. Thought content: patient denied any suicidal or homicidal ideation. He did report hearing voices but that they are better. Attention, concentration, and memory appeared intact but were not formally tested. Alert and oriented times three. Insight and judgment are limited, impulse control impaired.? Vitals/I&O/Wt Last Vital Signs Temp 98.0 F 06/30/21 14:00 Pulse 93 06/30/21 14:00 Resp 17 06/30/21 14:00 BP 107/75 06/30/21 14:00 Pulse Ox 92 06/30/21 14:00 Data NPU : 06/04/21 09:00 06/04/21 09:00 A&P Assessment and plan (1) Suicidal ideation: Status: Acute (2) Schizophrenia: Status: Chronic (3) Cluster B personality disorder: Status: Chronic (4) Opiate misuse: Status: Chronic (5) Psychosis: Status: Chronic (6) Chronic anticoagulation: Status: Chronic Plan This is a 36-year-old, white male, with long history of reports of psychosis, borderline personality disorder, addiction, and multiple suicide attempts, essentially every time that he has been discharged for the last year or two, who presents awaiting his guardianship hearing. ? RECOMMENDATION AND PLAN: 1. Continue current medication. 2. Encourage sober living treatment after discharge, at the highest level of care, to which he is willing to commit. 3. Awaiting guardianship hearing.? Currently scheduled for July 23 but they are attempting to move return earlier date.? We will maintain him in the hospital until guardianship is approved and we have a safety plan for discharge. Involuntary Hold Information 96 Hour Hold: 96 Hour Involuntary Admission: No Attestations NPU Medical Necessity Statement*: Inpatient hospitalization is medically necessary and the clinically appropriate intervention at this time.? We will monitor medications and make changes as indicated.? He will be staying in the hospital until guardianship is established and a plan for discharge can be coordinated with the guardian. 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
[2021-06-30] MEDS: lurasidone 80 mg Tablet PO (16:52)
[2021-06-30] MEDS: trazodone 50 mg Tablet PO (20:38)
[2021-06-30] MEDS: trazodone 100 mg Tablet 200 MG PO (20:38)
[2021-06-30 20:40] VITALS: BP 112/65; PULSE 86; RESP 17; TEMP 36.8; O2SAT 95
[2021-06-30] MEDS: chlorPROMazine 50 mg Tablet 250 MG PO (20:41)
[2021-06-30] MEDS: zolpidem 5 mg Tablet 10 MG PO (20:41)
[2021-07-01] MEDS: chlorPROMazine 50 mg Tablet 100 MG PO ×3 (05:51→15:27)
[2021-07-01 06:00] VITALS: BP 87/56; PULSE 75; RESP 18; TEMP 36.8; O2SAT 92
[2021-07-01] MEDS: buprenorphine-naloxone 4-1 mg Film 2 EACH SUBLINGUAL ×2 (06:05→18:37)
[2021-07-01] MEDS: haloperidol 5 mg Tablet PO ×2 (08:48→12:47)
[2021-07-01] MEDS: nicotine 2 mg Gum BUCCAL ×5 (08:48→20:31)
[2021-07-01] MEDS: carvedilol 6.25 mg Tablet 3.125 MG PO (08:48)
[2021-07-01] MEDS: aspirin 81 mg EC Tablet PO (08:48)
[2021-07-01 08:49] VITALS: BP 87/56
[2021-07-01] MEDS: apixaban 5 mg Tablet PO ×2 (08:49→20:31)
[2021-07-01] MEDS: losartan 50 mg Tablet 25 MG PO (08:49)
[2021-07-01] MEDS: CLONazepam 0.5 mg Tablet PO ×2 (08:49→12:04)
[2021-07-01] MEDS: spironolactone 25 mg Tablet PO (08:50)
[2021-07-01] MEDS: hyDROXYzine 25 mg Capsule 50 MG PO ×2 (10:42→20:31)
[2021-07-01] MEDS: dicyclomine 10 mg Capsule PO ×2 (12:47→20:44)
--- NOTE | 2021-07-01 12:56 | PC.NURSE ---
pt has received x2 doses of requested Haldol tablets to help with the voices and anxiety. pt reports haldol helps and requests medicine when having issues with AH. pt is pleasant and cooperative
--- NOTE | 2021-07-01 13:44 | PC.SOCIAL ---
Patient did not attend group.
[2021-07-01 14:00] VITALS: BP 109/77; PULSE 93; RESP 16; TEMP 36.8; O2SAT 96
[2021-07-01] MEDS: loperamide 2 mg Capsule PO ×2 (15:27→21:54)
--- NOTE | 2021-07-01 15:31 | P.NPUPN_ITS ---
Subjective NPU Subjective: Patient presents today with no significant changes from yesterday. He continues to be patient but still frustrated at this patient is excepts that he has created the circumstance but still wants to another chance. He still hopeful as of the treatment team that the guardianship hearing will come sooner rather than later. He denies any symptoms or problems reporting that his GI complaints continue to improve. Medications: Medication Review Details: This is an overweight, versus obese, white male, in hospital scrubs, with adequate grooming, and eye contact. No abnormal movements except for mild psychomotor retardation. Cooperative with exam in no acute distress. Speech was normal rate and volume and slightly effeminate. Mood described as good; affect appeared congruent. Thought process, organized. Thought content: patient denied any suicidal or homicidal ideation. He did report hearing voices but that they are better. Attention, concentration, and memory appeared intact but were not formally tested. Alert and oriented times three. Insight and judgment are limited, impulse control impaired.? Vitals/I&O/Wt Last Vital Signs Temp 97.4 F L 07/01/21 20:51 Pulse 86 07/01/21 20:51 Resp 16 07/01/21 20:51 BP 92/58 07/01/21 20:51 Pulse Ox 91 07/01/21 20:51 Data NPU : 06/04/21 09:00 06/04/21 09:00 A&P Assessment and plan (1) Suicidal ideation: Status: Acute (2) Schizophrenia: Status: Chronic (3) Cluster B personality disorder: Status: Chronic (4) Opiate misuse: Status: Chronic (5) Chronic anticoagulation: Status: Chronic (6) Hypotension: Status: Acute (7) Psychosis: Status: Chronic Plan This is a 36-year-old, white male, with long history of reports of psychosis, borderline personality disorder, addiction, and multiple suicide attempts, essentially every time that he has been discharged for the last year or two, who presents awaiting his guardianship hearing. ? RECOMMENDATION AND PLAN: 1. Continue current medication. 2. Encourage sober living treatment after discharge, at the highest level of car e, to which he is willing to commit. 3. Awaiting guardianship hearing.? Currently scheduled for July 23 but they are attempting to move return earlier date.? We will maintain him in the hospital until guardianship is approved and we have a safety plan for discharge. Involuntary Hold Information 96 Hour Hold: 96 Hour Involuntary Admission: No Attestations NPU Medical Necessity Statement*: Inpatient hospitalization is medically necessary and the clinically appropriate intervention at this time.? We will monitor medications and make changes as indicated.? He will be staying in the hospital until guardianship is established and a plan for discharge can be coordinated with the guardian. 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
[2021-07-01] MEDS: acetaminophen 325 mg Tablet 650 MG PO (16:16)
[2021-07-01] MEDS: lurasidone 80 mg Tablet PO (16:17)
[2021-07-01] MEDS: ammonium lactate lotion 226 gm Btl 1 APPLIC TOPICAL (17:31)
--- NOTE | 2021-07-01 18:39 | PC.NURSE ---
PRN Medications Up to nurses station and request PRN medication due to hearing voices and anxiety. Administered Vistaril and Thorazine as ordered. Reassessed anxiety and auditory hallucinations in one hour and reports relief from anxiety and voices are minimized.
[2021-07-01] MEDS: trazodone 50 mg Tablet PO (20:31)
[2021-07-01] MEDS: zolpidem 5 mg Tablet 10 MG PO (20:31)
[2021-07-01] MEDS: chlorPROMazine 50 mg Tablet 250 MG PO (20:31)
[2021-07-01] MEDS: trazodone 100 mg Tablet 200 MG PO (20:31)
[2021-07-01 20:51] VITALS: BP 92/58; PULSE 86; RESP 16; TEMP 36.3; O2SAT 91
--- NOTE | 2021-07-01 21:55 | PC.NURSE ---
2030 requested vistaril for anxiety. It was effective. 2043 Rec'd bentyl for cramping. 2153 rec'd imodium for diarrhea
[2021-07-02] MEDS: alum-mag-hydroxide-sime 30 mL UDC PO (05:16)
--- NOTE | 2021-07-02 05:17 | PC.NURSE ---
0517-requested maalox for stomach distress.
[2021-07-02 06:00] VITALS: BP 101/66; PULSE 86; RESP 16; TEMP 36.7; O2SAT 92
[2021-07-02] MEDS: buprenorphine-naloxone 4-1 mg Film 2 EACH SUBLINGUAL ×2 (06:42→18:08)
[2021-07-02] MEDS: chlorPROMazine 50 mg Tablet 100 MG PO ×2 (06:42→13:21)
[2021-07-02] MEDS: nicotine 2 mg Gum BUCCAL ×4 (06:43→21:27)
[2021-07-02] MEDS: spironolactone 25 mg Tablet PO (08:59)
[2021-07-02] MEDS: losartan 50 mg Tablet 25 MG PO (08:59)
[2021-07-02] MEDS: carvedilol 6.25 mg Tablet 3.125 MG PO ×2 (08:59→21:27)
[2021-07-02] MEDS: aspirin 81 mg EC Tablet PO (08:59)
[2021-07-02] MEDS: CLONazepam 0.5 mg Tablet PO ×2 (09:00→12:51)
[2021-07-02] MEDS: apixaban 5 mg Tablet PO ×2 (09:01→21:27)
[2021-07-02] MEDS: ammonium lactate lotion 226 gm Btl 1 APPLIC TOPICAL ×2 (09:03→17:20)
[2021-07-02] MEDS: hyDROXYzine 25 mg Capsule 50 MG PO ×2 (13:21→21:27)
[2021-07-02 14:00] VITALS: BP 105/71; PULSE 95; RESP 18; TEMP 36.9; O2SAT 91
[2021-07-02] MEDS: haloperidol 5 mg Tablet PO (14:09)
--- NOTE | 2021-07-02 14:38 | W.PM.NPUPNS ---
Subjective NPU Subjective: He says that overall he is doing better. However he does continue to take the extra Thorazine. He mostly complains today about diarrhea which she says has been going on for about 10 days. He says he did not have until he had dinner last night which was the first time he had eaten. He had a hamburger and tader tots. He has not eaten today other than a granola bar and has not had a problem. He was told to try eating just the vegetables and things without fat for dinner tonight and see how that did. He did not try to lobby to get me to let him go home today. Medications: Medication Review Details: This is an overweight, versus obese, white male, in hospital scrubs, with adequate grooming, and eye contact. No abnormal movements except for mild psychomotor retardation. Cooperative with exam in no acute distress. Speech was normal rate and volume and slightly effeminate. Mood described as good; affect appeared congruent. Thought process, organized. Thought content: patient denied any suicidal or homicidal ideation. He did report hearing voices but that they are better. Attention, concentration, and memory appeared intact but were not formally tested. Alert and oriented times three. Insight and judgment are limited, impulse control impaired.? Mental Status Exam MSE Comments: This is an overweight, versus obese, white male, in hospital scrubs, with adequate grooming, and eye contact. No abnormal movements except for mild psychomotor retardation. Cooperative with exam in no acute distress. Speech was normal rate and volume and slightly effeminate. Mood described as good; affect appeared congruent. Thought process, organized. Thought content: patient denied any suicidal or homicidal ideation. He did report hearing voices but that they are better. Attention, concentration, and memory appeared intact but were not formally tested. Alert and oriented times three. Insight and judgment are limited, impulse control impaired.? Cognition: Patient Appearance: Appropriate Level of Consciousness: Awake and Alert Patient Cognition Impaired: No Ability to Follow Directions: Good Patient Orientation (long list): Person, Place, Time, Name, Birthday and Year Comprehension Ability: Understands Concepts Hallucination Type: None Delusion Description: Not Present Thought Process: Appropriate Affect: Affect Description: Appropriate Depressive Symptoms: Changes in Appetite, Difficulty Sleeping and Unhappiness Behavior: Patient Behavior: Appropriate Speech Pattern: Appropriate Vitals/I&O/Wt Last Vital Signs Temp 98.5 F 04/07/22 14:00 Pulse 95 07/02/21 14:00 Resp 18 07/02/21 14:00 BP 105/71 07/02/21 14:00 Pulse Ox 91 07/02/21 14:00 Data NPU : 06/04/21 09:00 06/04/21 09:00 A&P Assessment and plan (1) Suicidal ideation: Status: Acute (2) Schizophrenia: Status: Chronic (3) Cluster B personality disorder: Status: Chronic (4) Opiate misuse: Status: Chronic (5) Chronic anticoagulation: Status: Chronic (6) Hypotension: Status: Acute (7) Psychosis: Status: Chronic Plan This is a 36-year-old, white male, with long history of reports of psychosis, borderline personality disorder, addiction, and multiple suicide attempts, essentially every time that he has been discharged for the last year or two, who presents awaiting his guardianship hearing. ? RECOMMENDATION AND PLAN: 1.Continue current medication. 2.Encourage sober living treatment after discharge, at the highest level of care, to which he is willing to commit. 3.Awaiting guardianship hearing.? Currently scheduled for July 23 but they are attempting to move return earlier date.? We will maintain him in the hospital until guardianship is approved and we have a safety plan for discharge. Involuntary Hold Information 96 Hour Hold: 96 Hour Involuntary Admission: No Attestations NPU Medical Necessity Statement*: Inpatient hospitalization is medically necessary and the clinically appropriate intervention at this time. We will initiate medications and make changes as indicated. 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
[2021-07-02] MEDS: loperamide 2 mg Capsule PO (15:34)
[2021-07-02] MEDS: dicyclomine 10 mg Capsule PO ×2 (15:34→21:30)
--- NOTE | 2021-07-02 16:50 | PC.SOCIAL ---
Client attended and participated in group.
[2021-07-02] MEDS: lurasidone 80 mg Tablet PO (16:57)
[2021-07-02] MEDS: acetaminophen 325 mg Tablet 650 MG PO ×2 (17:26→22:00)
[2021-07-02 20:39] VITALS: BP 106/72; PULSE 85; RESP 17; TEMP 36.3; O2SAT 97
[2021-07-02] MEDS: chlorPROMazine 50 mg Tablet 250 MG PO (21:25)
[2021-07-02] MEDS: zolpidem 5 mg Tablet 10 MG PO (21:26)
[2021-07-02] MEDS: trazodone 100 mg Tablet 200 MG PO (21:27)
[2021-07-02] MEDS: trazodone 50 mg Tablet PO (21:27)
--- NOTE | 2021-07-02 21:32 | PC.NURSE ---
2130-He requested something for his anxiety, s and stomach cramping. He was given vistaril and bentyl
--- NOTE | 2021-07-02 22:05 | PC.NURSE ---
2205 requested tylenol for hip pain.
[2021-07-03 06:00] VITALS: BP 81/49; PULSE 84; RESP 16; TEMP 36.5; O2SAT 91
[2021-07-03] MEDS: chlorPROMazine 50 mg Tablet 100 MG PO ×2 (06:05→11:34)
[2021-07-03] MEDS: buprenorphine-naloxone 4-1 mg Film 2 EACH SUBLINGUAL ×2 (06:09→18:09)
[2021-07-03] MEDS: nicotine 2 mg Gum BUCCAL ×4 (06:13→20:26)
[2021-07-03] MEDS: CLONazepam 0.5 mg Tablet PO ×2 (08:39→12:11)
[2021-07-03] MEDS: aspirin 81 mg EC Tablet PO (08:39)
[2021-07-03] MEDS: apixaban 5 mg Tablet PO ×2 (08:39→20:27)
[2021-07-03 09:39] VITALS: BP 81/49
--- NOTE | 2021-07-03 09:39 | PC.NURSE ---
Per Dr. House held all BP meds this am due to a BP of 56/54.
[2021-07-03] MEDS: hyDROXYzine 25 mg Capsule 50 MG PO ×2 (11:34→20:26)
--- NOTE | 2021-07-03 13:48 | W.PM.NPUPNS ---
Subjective NPU Subjective: He continues to need to take the extra Thorazine every day around noon or 1 PM. We talked about having a scheduled dose around that time or increasing the morning dose to 200 mg and he chose the latter. He continues to have difficulty with diarrhea. Stool sample was collected and will be tested. He feels that he is doing well otherwise. Mental Status Exam MSE Comments: This is an overweight, versus obese, white male, in hospital scrubs, with adequate grooming, and eye contact. No abnormal movements except for mild psychomotor retardation. Cooperative with exam in no acute distress. Speech was normal rate and volume and slightly effeminate. Mood described as good; affect appeared congruent. Thought process, organized. Thought content: patient denied any suicidal or homicidal ideation. He did report hearing voices but that they are better. Attention, concentration, and memory appeared intact but were not formally tested. Alert and oriented times three. Insight and judgment are limited, impulse control impaired.? Cognition: Patient Appearance: Appropriate Level of Consciousness: Awake and Alert Patient Cognition Impaired: No Ability to Follow Directions: Good Patient Orientation (long list): Person, Place, Name, Age, Birthday and Year Comprehension Ability: Understands Concepts Hallucination Type: None Delusion Description: Not Present Thought Process: Appropriate Affect: Affect Description: [place] and Guarded Depressive Symptoms: Changes in Appetite, Difficulty Sleeping and Unhappiness Behavior: Patient Behavior: Negative Speech Pattern: Appropriate and Clear Vitals/I&O/Wt Last Vital Signs Temp 97.7 F 07/03/21 06:00 Pulse 84 07/03/21 06:00 Resp 16 07/03/21 06:00 BP 81/49 07/03/21 09:39 Pulse Ox 91 07/03/21 06:00 Data NPU : 06/04/21 09:00 06/04/21 09:00 Micro: Microbiology 07/03/21 10:35 Enteric Pathogens (PCR) - Final Stool - Stool Aspirate C.difficile Toxin B Gene (PCR) - Final Microbiology 07/03/21 10:35 Stool - Stool Aspirate Enteric Pathogens (PCR) - Final 07/03/21 10:35 Stool - Stool Aspirate C.difficile Toxin B Gene (PCR) - Final A&P Assessment and plan (1) Suicidal ideation: Status: Acute (2) Schizophrenia: Status: Chronic (3) Cluster B personality disorder: Status: Chronic (4) Opiate misuse: Status: Chronic (5) Chronic anticoagulation: Status: Chronic (6) Hypotension: Status: Acute (7) Psychosis: Status: Chronic Plan This is a 36-year-old, white male, with long history of reports of psychosis, borderline personality disorder, addiction, and multiple suicide attempts, essentially every time that he has been discharged for the last year or two, who presents awaiting his guardianship hearing. ? RECOMMENDATION AND PLAN: 1.Continue current medication. Change morning Thorazine from 100 to 200 mg. Discontinue the as needed Thorazine. 2.Encourage sober living treatment after discharge, at the highest level of care, to which he is willing to commit. 3.Awaiting guardianship hearing.? Currently scheduled for July 23 but they are attempting to move return earlier date.? We will maintain him in the hospital until guardianship is approved and we have a safety plan for discharge. Involuntary Hold Information 96 Hour Hold: 96 Hour Involuntary Admission: No Attestations NPU Medical Necessity Statement*: Inpatient hospitalization is medically necessary and the clinically appropriate intervention at this time. We will initiate medications and make changes as indicated. 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
[2021-07-03 14:00] VITALS: BP 100/67; PULSE 75; RESP 16; TEMP 36.3; O2SAT 94
--- NOTE | 2021-07-03 14:08 | PC.SOCIAL ---
Patient did not attend group.
[2021-07-03] MEDS: dicyclomine 10 mg Capsule PO ×2 (16:15→20:33)
[2021-07-03] MEDS: lurasidone 80 mg Tablet PO (16:15)
[2021-07-03] MEDS: acetaminophen 325 mg Tablet 650 MG PO ×2 (16:15→20:50)
[2021-07-03] MEDS: carvedilol 6.25 mg Tablet 3.125 MG PO (20:27)
[2021-07-03] MEDS: trazodone 50 mg Tablet PO (20:27)
[2021-07-03] MEDS: zolpidem 5 mg Tablet 10 MG PO (20:27)
[2021-07-03] MEDS: chlorPROMazine 50 mg Tablet 250 MG PO (20:27)
[2021-07-03] MEDS: trazodone 100 mg Tablet 200 MG PO (20:27)
[2021-07-03 21:31] VITALS: BP 108/74; PULSE 86; RESP 17; O2SAT 94
[2021-07-03] MEDS: haloperidol 5 mg Tablet PO (22:25)
--- NOTE | 2021-07-03 22:25 | PC.NURSE ---
Patient came to nurses station requesting medication to help his AH. Haldol was given.
[2021-07-04 05:46] VITALS: BP 95/60; PULSE 69; RESP 18; O2SAT 93
[2021-07-04] MEDS: buprenorphine-naloxone 4-1 mg Film 2 EACH SUBLINGUAL ×2 (06:12→18:06)
[2021-07-04] MEDS: chlorPROMazine 50 mg Tablet 200 MG PO (06:12)
[2021-07-04] MEDS: carvedilol 6.25 mg Tablet 3.125 MG PO ×2 (09:37→20:43)
[2021-07-04 09:38] VITALS: BP 95/60
[2021-07-04] MEDS: losartan 50 mg Tablet 25 MG PO (09:38)
[2021-07-04] MEDS: apixaban 5 mg Tablet PO ×2 (09:39→20:44)
[2021-07-04] MEDS: nicotine 2 mg Gum BUCCAL ×5 (09:39→20:44)
[2021-07-04] MEDS: aspirin 81 mg EC Tablet PO (09:39)
[2021-07-04] MEDS: spironolactone 25 mg Tablet PO (09:39)
[2021-07-04] MEDS: ammonium lactate lotion 226 gm Btl 1 APPLIC TOPICAL (09:39)
[2021-07-04] MEDS: CLONazepam 0.5 mg Tablet PO ×2 (09:39→12:27)
--- NOTE | 2021-07-04 09:45 | W.PM.NPUPNS ---
Subjective NPU Subjective: He was found in bed at 9:30 in the morning. He says that the Thorazine 200 mg in the morning does not sedate him. He says the voices are normal today. He continues to have diarrhea. Stool sample for C. difficile was negative. He says that he has had blood in his stool 1 time since he has been here this time. He is happy with the way his medications are currently. Mental Status Exam MSE Comments: This is an overweight, versus obese, white male, in hospital scrubs, with adequate grooming, and eye contact. No abnormal movements except for mild psychomotor retardation. Cooperative with exam in no acute distress. Speech was normal rate and volume. Mood described as good; affect appeared congruent. Thought process, organized. Thought content: patient denied any suicidal or homicidal ideation. He did report hearing voices but that they are better. Attention, concentration, and memory appeared intact but were not formally tested. Alert and oriented times three. Insight and judgment are limited, impulse control impaired.? Cognition: Patient Appearance: Appropriate Level of Consciousness: Awake and Alert Patient Cognition Impaired: No Ability to Follow Directions: Good Patient Orientation (long list): Person, Place, Name, Age, Birthday and Year Comprehension Ability: Understands Concepts Hallucination Type: None Delusion Description: Not Present Thought Process: Appropriate Affect: Affect Description: [place], Depressed and Flat Depressive Symptoms: Changes in Appetite, Difficulty Sleeping and Unhappiness Behavior: Patient Behavior: Appropriate and Cooperative Speech Pattern: Appropriate and Clear Vitals/I&O/Wt Last Vital Signs Temp 97.3 F L 07/03/21 14:00 Pulse 69 07/04/21 05:46 Resp 18 07/04/21 05:46 BP 95/60 07/04/21 09:38 Pulse Ox 93 07/04/21 05:46 Data NPU : 06/04/21 09:00 06/04/21 09:00 Micro: Microbiology 07/03/21 10:35 Enteric Pathogens (PCR) - Final Stool - Stool Aspirate Parasite Antigen Panel - Final C.difficile Toxin B Gene (PCR) - Final Microbiology 07/03/21 10:35 Stool - Stool Aspirate Enteric Pathogens (PCR) - Final 07/03/21 10:35 Stool - Stool Aspirate Parasite Antigen Panel - Final 07/03/21 10:35 Stool - Stool Aspirate C.difficile Toxin B Gene (PCR) - Final A&P Assessment and plan (1) Suicidal ideation: Status: Acute (2) Schizophrenia: Status: Chronic (3) Cluster B personality disorder: Status: Chronic (4) Opiate misuse: Status: Chronic (5) Chronic anticoagulation: Status: Chronic (6) Hypotension: Status: Acute (7) Psychosis: Status: Chronic Plan This is a 36-year-old, white male, with long history of reports of psychosis, borderline personality disorder, addiction, and multiple suicide attempts, essentially every time that he has been discharged for the last year or two, who presents awaiting his guardianship hearing. ? RECOMMENDATION AND PLAN: 1.Continue current medication. Change morning Thorazine from 100 to 200 mg. Discontinue the as needed Thorazine. 2.Encourage sober living treatment after discharge, at the highest level of care, to which he is willing to commit. 3.Awaiting guardianship hearing.? Currently scheduled for July 23 but they are attempting to move return earlier date.? We will maintain him in the hospital until guardianship is approved and we have a safety plan for discharge. Involuntary Hold Information 96 Hour Hold: 96 Hour Involuntary Admission: No Attestations NPU Medical Necessity Statement*: Inpatient hospitalization is medically necessary and the clinically appropriate intervention at this time. We will initiate medications and make changes as indicated. 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
[2021-07-04] MEDS: hyDROXYzine 25 mg Capsule 50 MG PO ×2 (11:01→20:44)
[2021-07-04] MEDS: haloperidol 5 mg Tablet PO ×3 (11:01→21:54)
[2021-07-04] MEDS: dicyclomine 10 mg Capsule PO ×3 (12:36→20:44)
[2021-07-04 14:00] VITALS: BP 95/68; PULSE 89; RESP 16; TEMP 36.8; O2SAT 91
[2021-07-04] MEDS: lurasidone 80 mg Tablet PO (16:33)
[2021-07-04] MEDS: loperamide 2 mg Capsule PO (16:33)
[2021-07-04 19:40] VITALS: BP 101/69; PULSE 75; RESP 18; TEMP 36.6; O2SAT 91
[2021-07-04] MEDS: trazodone 50 mg Tablet PO (20:44)
[2021-07-04] MEDS: zolpidem 5 mg Tablet 10 MG PO (20:44)
[2021-07-04] MEDS: chlorPROMazine 50 mg Tablet 250 MG PO (20:44)
[2021-07-04] MEDS: trazodone 100 mg Tablet 200 MG PO (20:44)
[2021-07-04] MEDS: alum-mag-hydroxide-sime 30 mL UDC PO (20:49)
--- NOTE | 2021-07-04 22:21 | PC.NURSE ---
PATIENT REQUESTED THE FOLLOWING PRN MEDICATIONS THIS EVENING: HYDROXYZINE, BENTYL AND NICOTINE GUM. ALL WERE GIVEN. PATIENT IS NOW RESTING IN BED.
[2021-07-05 06:00] VITALS: BP 97/61; PULSE 86; RESP 18; TEMP 36.5; O2SAT 90
[2021-07-05] MEDS: chlorPROMazine 50 mg Tablet 200 MG PO (06:01)
[2021-07-05] MEDS: buprenorphine-naloxone 4-1 mg Film 2 EACH SUBLINGUAL ×2 (06:01→16:43)
[2021-07-05] MEDS: alum-mag-hydroxide-sime 30 mL UDC PO (06:22)
[2021-07-05 10:13] VITALS: BP 97/61
[2021-07-05] MEDS: losartan 50 mg Tablet 25 MG PO (10:13)
[2021-07-05] MEDS: ammonium lactate lotion 226 gm Btl 1 APPLIC TOPICAL ×2 (10:13→16:43)
[2021-07-05] MEDS: CLONazepam 0.5 mg Tablet PO ×2 (10:13→12:39)
[2021-07-05] MEDS: aspirin 81 mg EC Tablet PO (10:14)
[2021-07-05] MEDS: carvedilol 6.25 mg Tablet 3.125 MG PO ×2 (10:14→20:14)
[2021-07-05] MEDS: apixaban 5 mg Tablet PO ×2 (10:14→20:14)
[2021-07-05] MEDS: spironolactone 25 mg Tablet PO (10:15)
[2021-07-05] MEDS: nicotine 2 mg Gum BUCCAL ×4 (10:15→20:14)
[2021-07-05] MEDS: dicyclomine 10 mg Capsule PO ×2 (10:16→20:14)
[2021-07-05 14:00] VITALS: BP 82/54; PULSE 79; RESP 16; TEMP 36.4; O2SAT 92
--- NOTE | 2021-07-05 14:11 | W.PM.NPUPNS ---
Subjective NPU Subjective: He says that despite taking the Thorazine 200 mg in the morning he still has some increased voices in the afternoon and would like to be able to take another 100 mg then. He agreed to change the morning dose back to 100 mg and go back to the as needed 100 mg which she can take in the afternoon. He did not want the afternoon dose scheduled although he took it every day when it was available. He has been eating only once per day. His diarrhea is much better. He had a fruit plate with some cottage cheese for lunch and that did not cause diarrhea. He will watch for things that might precipitate it. Mental Status Exam MSE Comments: This is an overweight, versus obese, white male, in hospital scrubs, with adequate grooming, and eye contact. No abnormal movements except for mild psychomotor retardation. Cooperative with exam in no acute distress. Speech was normal rate and volume. Mood described as good; affect appeared congruent. Thought process, organized. Thought content: patient denied any suicidal or homicidal ideation. He did report hearing voices but that they are better. Attention, concentration, and memory appeared intact but were not formally tested. Alert and oriented times three. Insight and judgment are limited, impulse control impaired.? Cognition: Patient Appearance: Appropriate Level of Consciousness: Awake and Alert Patient Cognition Impaired: No Ability to Follow Directions: Good Patient Orientation (long list): Person, Place, Name, Age, Birthday and Year Comprehension Ability: Understands Concepts Hallucination Type: None Delusion Description: Not Present Thought Process: Appropriate Affect: Affect Description: Anxious, [place], Depressed and Flat Depressive Symptoms: Changes in Appetite, Difficulty Sleeping and Unhappiness Behavior: Patient Behavior: Appropriate and Cooperative Speech Pattern: Appropriate and Clear Vitals/I&O/Wt Last Vital Signs Temp 97.7 F 07/05/21 06:00 Pulse 86 07/05/21 06:00 Resp 18 07/05/21 06:00 BP 97/61 07/05/21 10:13 Pulse Ox 90 07/05/21 06:00 Weight last 48 hrs Weight 104.598 kg Data NPU : 06/04/21 09:00 06/04/21 09:00 Micro: Microbiology 07/04/21 10:35 Occult Blood (FIT) - Final Stool Routine Collection Microbiology 07/04/21 10:35 Stool Routine Collection Occult Blood (FIT) - Final A&P Assessment and plan (1) Suicidal ideation: Status: Acute (2) Schizophrenia: Status: Chronic (3) Cluster B personality disorder: Status: Chronic (4) Opiate misuse: Status: Chronic (5) Chronic anticoagulation: Status: Chronic (6) Hypotension: Status: Acute (7) Psychosis: Status: Chronic Plan This is a 36-year-old, white male, with long history of reports of psychosis, borderline personality disorder, addiction, and multiple suicide attempts, essentially every time that he has been discharged for the last year or two, who presents awaiting his guardianship hearing. ? RECOMMENDATION AND PLAN: 1.Continue current medication. Change morning Thorazine from 200 to 100 mg. Restart the as needed Thorazine. 2.Encourage sober living treatment after discharge, at the highest level of care, to which he is willing to commit. 3.Awaiting guardianship hearing.? Currently scheduled for July 23 but they are attempting to move return earlier date.? We will maintain him in the hospital until guardianship is approved and we have a safety plan for discharge. Involuntary Hold Information 96 Hour Hold: 96 Hour Involuntary Admission: No Attestations NPU Medical Necessity Statement*: Inpatient hospitalization is medically necessary and the clinically appropriate intervention at this time. We will initiate medications and make changes as indicated. 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
[2021-07-05] MEDS: hyDROXYzine 25 mg Capsule 50 MG PO ×2 (14:22→20:13)
[2021-07-05] MEDS: haloperidol 5 mg Tablet PO (14:22)
[2021-07-05] MEDS: lurasidone 80 mg Tablet PO (16:43)
[2021-07-05] MEDS: trazodone 50 mg Tablet PO (20:14)
[2021-07-05] MEDS: trazodone 100 mg Tablet 200 MG PO (20:14)
[2021-07-05] MEDS: zolpidem 5 mg Tablet 10 MG PO (20:14)
[2021-07-05] MEDS: chlorPROMazine 50 mg Tablet 250 MG PO (20:14)
[2021-07-05 20:24] VITALS: BP 95/62; PULSE 76; RESP 20; O2SAT 97
[2021-07-06 06:00] VITALS: BP 92/57; PULSE 77; RESP 16; TEMP 36.6; O2SAT 93
[2021-07-06] MEDS: chlorPROMazine 50 mg Tablet 100 MG PO ×2 (06:03→13:10)
[2021-07-06] MEDS: buprenorphine-naloxone 4-1 mg Film 2 EACH SUBLINGUAL ×2 (06:03→17:39)
[2021-07-06] MEDS: ammonium lactate lotion 226 gm Btl 1 APPLIC TOPICAL ×2 (08:35→16:56)
[2021-07-06 08:36] VITALS: BP 92/57
[2021-07-06] MEDS: nicotine 2 mg Gum BUCCAL ×4 (08:36→20:39)
[2021-07-06] MEDS: carvedilol 6.25 mg Tablet 3.125 MG PO (08:36)
[2021-07-06] MEDS: losartan 50 mg Tablet 25 MG PO (08:36)
[2021-07-06] MEDS: spironolactone 25 mg Tablet PO (08:36)
[2021-07-06] MEDS: aspirin 81 mg EC Tablet PO (08:36)
[2021-07-06] MEDS: CLONazepam 0.5 mg Tablet PO ×2 (08:37→12:08)
[2021-07-06] MEDS: apixaban 5 mg Tablet PO ×2 (08:37→20:38)
--- NOTE | 2021-07-06 13:02 | P.NPUPN_ITS ---
Subjective NPU Subjective: He says that he is doing well. He is frustrated with being here for so long. He did not have any difficulty with decreasing the Thorazine to 100 mg this morning. He anticipates that he will take the as needed dose fairly soon. He feels that his medications are working well at this point. Medications: Medication Review Details: This is an overweight, versus obese, white male, in hospital scrubs, with adequate grooming, and eye contact. No abnormal movements except for mild psychomotor retardation. Cooperative with exam in no acute distress. Speech was normal rate and volume and slightly effeminate. Mood described as good; affect appeared congruent. Thought process, organized. Thought content: patient denied any suicidal or homicidal ideation. He did report hearing voices but that they are better. Attention, concentration, and memory appeared intact but were not formally tested. Alert and oriented times three. Insight and judgment are limited, impulse control impaired.? Mental Status Exam MSE Comments: This is an overweight, versus obese, white male, in hospital scrubs, with adequate grooming, and eye contact. No abnormal movements except for mild psychomotor retardation. Cooperative with exam in no acute distress. Speech was normal rate and volume. Mood described as good; affect appeared congruent. Thought process, organized. Thought content: patient denied any suicidal or homicidal ideation. He did report hearing voices but that they are better. Attention, concentration, and memory appeared intact but were not formally tested. Alert and oriented times three. Insight and judgment are limited, impulse control impaired.? Cognition: Patient Appearance: Appropriate Level of Consciousness: Awake and Alert Patient Cognition Impaired: No Ability to Follow Directions: Good Patient Orientation (long list): Person, Place, Name, Age, Birthday and Year Comprehension Ability: Understands Concepts Hallucination Type: None Delusion Description: Not Present Thought Process: Appropriate Affect: Affect Description: Flat Depressive Symptoms: Changes in Appetite, Difficulty Sleeping and Unhappiness Behavior: Patient Behavior: Cooperative Speech Pattern: Appropriate and Clear Vitals/I&O/Wt Last Vital Signs Temp 97.8 F 07/06/21 06:00 Pulse 77 07/06/21 06:00 Resp 16 07/06/21 06:00 BP 92/57 07/06/21 08:36 Pulse Ox 93 07/06/21 06:00 Weight last 48 hrs Weight 104.598 kg Data NPU : 06/04/21 09:00 06/04/21 09:00 A&P Assessment and plan (1) Suicidal ideation: Status: Acute (2) Schizophrenia: Status: Chronic (3) Cluster B personality disorder: Status: Chronic (4) Opiate misuse: Status: Chronic (5) Chronic anticoagulation: Status: Chronic (6) Hypotension: Status: Acute (7) Psychosis: Status: Chronic Plan This is a 36-year-old, white male, with long history of reports of psychosis, borderline personality disorder, addiction, and multiple suicide attempts, essentially every time that he has been discharged for the last year or two, who presents awaiting his guardianship hearing. ? RECOMMENDATION AND PLAN: 1.Continue current medication. Change morning Thorazine from 200 to 100 mg. Restart the as needed Thorazine. 2.Encourage sober living treatment after discharge, at the highest level of care, to which he is willing to commit. 3.Awaiting guardianship hearing.? Currently scheduled for July 23 but they are attempting to move return earlier date.? We will maintain him in the hospital until guardianship is approved and we have a safety plan for discharge. Involuntary Hold Information 96 Hour Hold: 96 Hour Involuntary Admission: No Attestations NPU Medical Necessity Statement*: Inpatient hospitalization is medically necessary and the clinically appropriate intervention at this time. We will initiate medications and make changes as indicated. 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
[2021-07-06] MEDS: hyDROXYzine 25 mg Capsule 50 MG PO ×2 (13:10→19:41)
[2021-07-06 14:00] VITALS: BP 95/53; PULSE 71; RESP 16; TEMP 36.6; O2SAT 92
--- NOTE | 2021-07-06 15:24 | PC.SOCIAL ---
Patient attended group.
[2021-07-06] MEDS: lurasidone 80 mg Tablet PO (16:56)
[2021-07-06] MEDS: dicyclomine 10 mg Capsule PO (18:50)
[2021-07-06 19:36] VITALS: BP 91/61; PULSE 103; RESP 17; TEMP 36.2; O2SAT 100
--- NOTE | 2021-07-06 19:42 | PC.NURSE ---
Patient requesting Vistaril 50mg for increased anxiety level.
--- NOTE | 2021-07-06 20:30 | PC.NURSE ---
Patient states anxiety decreased.
[2021-07-06] MEDS: trazodone 100 mg Tablet 200 MG PO (20:38)
[2021-07-06] MEDS: trazodone 50 mg Tablet PO (20:38)
[2021-07-06] MEDS: zolpidem 5 mg Tablet 10 MG PO (20:38)
[2021-07-06] MEDS: chlorPROMazine 50 mg Tablet 250 MG PO (20:39)
[2021-07-06] MEDS: haloperidol 5 mg Tablet PO (21:16)
[2021-07-07 06:00] VITALS: BP 85/50; PULSE 77; RESP 16; TEMP 36.4; O2SAT 95
[2021-07-07] MEDS: buprenorphine-naloxone 4-1 mg Film 2 EACH SUBLINGUAL ×2 (06:15→18:07)
[2021-07-07] MEDS: chlorPROMazine 50 mg Tablet 100 MG PO ×2 (06:16→14:01)
[2021-07-07] MEDS: CLONazepam 0.5 mg Tablet PO ×2 (11:48→12:56)
[2021-07-07] MEDS: nicotine 2 mg Gum BUCCAL ×5 (11:48→20:10)
[2021-07-07] MEDS: apixaban 5 mg Tablet PO ×2 (11:48→20:10)
[2021-07-07] MEDS: aspirin 81 mg EC Tablet PO (11:49)
[2021-07-07 12:46] VITALS: BP 85/50
--- NOTE | 2021-07-07 13:30 | P.NPUPN_ITS ---
Subjective NPU Subjective: He says that he is doing well. He is having some heartburn and when he belches he feels acid coming up into his throat. He wanted to try some Protonix. He did not have any difficulty with decreasing the Thorazine to 100 mg this morning. He anticipates that he will take the as needed dose fairly soon. He feels that his medications are working well at this point. Mental Status Exam MSE Comments: This is an overweight, versus obese, white male, in hospital scrubs, with adequate grooming, and eye contact. No abnormal movements except for mild psychomotor retardation. Cooperative with exam in no acute distress. Speech was normal rate and volume. Mood described as good; affect appeared congr uent. Thought process, organized. Thought content: patient denied any suicidal or homicidal ideation. He did report hearing voices but that they are better. Attention, concentration, and memory appeared intact but were not formally tested. Alert and oriented times three. Insight and judgment are limited, impulse control impaired.? Cognition: Patient Appearance: Appropriate Level of Consciousness: Awake and Alert Patient Cognition Impaired: No Ability to Follow Directions: Good Patient Orientation (long list): Person, Place, Name, Age, Birthday and Year Comprehension Ability: Understands Concepts Hallucination Type: None Delusion Description: Not Present Thought Process: Appropriate Affect: Affect Description: Appropriate Depressive Symptoms: Changes in Appetite, Difficulty Sleeping and Unhappiness Behavior: Patient Behavior: Cooperative Speech Pattern: Appropriate and Clear Vitals/I&O/Wt Last Vital Signs Temp 97.5 F L 07/07/21 06:00 Pulse 77 07/07/21 06:00 Resp 16 07/07/21 06:00 BP 85/50 07/07/21 12:46 Pulse Ox 95 07/07/21 06:00 Data NPU : 06/04/21 09:00 06/04/21 09:00 A&P Assessment and plan (1) Suicidal ideation: Status: Acute (2) Schizophrenia: Status: Chronic (3) Cluster B personality disorder: Status: Chronic (4) Opiate misuse: Status: Chronic (5) Chronic anticoagulation: Status: Chronic (6) Hypotension: Status: Acute (7) Psychosis: Status: Chronic Plan This is a 36-year-old, white male, with long history of reports of psychosis, borderline personality disorder, addiction, and multiple suicide attempts, essentially every time that he has been discharged for the last year or two, who presents awaiting his guardianship hearing. ? RECOMMENDATION AND PLAN: 1.Continue current medication. Change morning Thorazine from 200 to 100 mg. R estart the as needed Thorazine. Try some Protonix 2.Encourage sober living treatment after discharge, at the highest level of care, to which he is willing to commit. 3.Awaiting guardianship hearing.? Currently scheduled for July 23 but they are attempting to move return earlier date.? We will maintain him in the hospital until guardianship is approved and we have a safety plan for discharge. Involuntary Hold Information 96 Hour Hold: 96 Hour Involuntary Admission: No Attestations NPU Medical Necessity Statement*: Inpatient hospitalization is medically necessary and the clinically appropriate intervention at this time. We will initiate medications and make changes as indicated. 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
[2021-07-07 13:42] VITALS: BP 99/66; PULSE 90; RESP 17; TEMP 36.4; O2SAT 96
[2021-07-07] MEDS: hyDROXYzine 25 mg Capsule 50 MG PO ×2 (14:01→20:10)
[2021-07-07] MEDS: haloperidol 5 mg Tablet PO ×2 (15:41→21:42)
[2021-07-07] MEDS: dicyclomine 10 mg Capsule PO ×2 (16:20→20:16)
[2021-07-07] MEDS: lurasidone 80 mg Tablet PO (16:20)
[2021-07-07] MEDS: pantoprazole DR 40 mg Tablet PO (16:39)
[2021-07-07 20:00] VITALS: BP 84/49; PULSE 88; RESP 17; TEMP 37.1; O2SAT 91
[2021-07-07] MEDS: trazodone 100 mg Tablet 200 MG PO (20:10)
[2021-07-07] MEDS: chlorPROMazine 50 mg Tablet 250 MG PO (20:10)
[2021-07-07] MEDS: zolpidem 5 mg Tablet 10 MG PO (20:10)
[2021-07-07] MEDS: trazodone 50 mg Tablet PO (20:10)
--- NOTE | 2021-07-08 05:06 | PC.NURSE ---
Patient asked for Haldol about 30-45 minutes after having taken prn vistaril. He reports that his voices are real bad right now. Prn haldol given for AVH. Patient slept well after this.
[2021-07-08 06:00] VITALS: BP 102/67; PULSE 97; RESP 16; TEMP 36.7; O2SAT 92
[2021-07-08] MEDS: buprenorphine-naloxone 4-1 mg Film 2 EACH SUBLINGUAL ×2 (06:29→18:02)
[2021-07-08] MEDS: chlorPROMazine 50 mg Tablet 100 MG PO ×2 (06:29→13:30)
[2021-07-08] MEDS: ammonium lactate lotion 226 gm Btl 1 APPLIC TOPICAL (09:23)
[2021-07-08] MEDS: apixaban 5 mg Tablet PO ×2 (09:24→20:45)
[2021-07-08] MEDS: CLONazepam 0.5 mg Tablet PO ×2 (09:24→13:21)
[2021-07-08] MEDS: pantoprazole DR 40 mg Tablet PO (09:24)
[2021-07-08] MEDS: aspirin 81 mg EC Tablet PO (09:24)
[2021-07-08 09:31] VITALS: BP 92/57
[2021-07-08] MEDS: nicotine 2 mg Gum BUCCAL ×4 (12:08→20:45)
--- NOTE | 2021-07-08 12:27 | P.NPUPN_ITS ---
Subjective NPU Subjective: He says that he is doing well. He did not have any difficulty with decreasing the Thorazine to 100 mg this morning. He anticipates that he will take the as needed dose fairly soon. He feels that his medications are working well at this point. Medications: Medication Review Details: ? Mental Status Exam MSE Comments: This is an overweight, versus obese, white male, in hospital scrubs, with adequate grooming, and eye contact. No abnormal movements except for mild psychomotor retardation. Cooperative with exam in no acute distress. Speech was normal rate and volume. Mood described as good; affect appeared congruent. Thought process, organized. Thought content: patient denied any suicidal or homicidal ideation. He did report hearing voices but that they are better. Attention, concentration, and memory appeared intact but were not formally tested. Alert and oriented times three. Insight and judgment are limit ed, impulse control impaired.? Cognition: Patient Appearance: Appropriate Level of Consciousness: Awake and Alert Patient Cognition Impaired: No Ability to Follow Directions: Good Patient Orientation (long list): Person, Place, Name, Age and Year Comprehension Ability: Understands Concepts Hallucination Type: Auditory Delusion Description: Not Present Thought Process: Appropriate Affect: Affect Description: Depressed and Flat Depressive Symptoms: Changes in Appetite, Difficulty Sleeping and Unhappiness Behavior: Patient Behavior: Withdrawn Speech Pattern: Appropriate and Clear Vitals/I&O/Wt Last Vital Signs Temp 98.0 F 07/08/21 06:00 Pulse 97 07/08/21 06:00 Resp 16 07/08/21 06:00 BP 92/57 07/08/21 09:31 Pulse Ox 92 07/08/21 06:00 Data NPU : 06/04/21 09:00 06/04/21 09:00 A&P Assessment and plan (1) Suicidal ideation: Status: Acute (2) Schizophrenia: Status: Chronic (3) Cluster B personality disorder: Status: Chronic (4) Opiate misuse: Status: Chronic (5) Chronic anticoagulation: Status: Chronic (6) Hypotension: Status: Acute (7) Psychosis: Status: Chronic Plan This is a 36-year-old, white male, with long history of reports of psychosis, borderline personality disorder, addiction, and multiple suicide attempts, essentially every time that he has been discharged for the last year or two, who presents awaiting his guardianship hearing. ? RECOMMENDATION AND PLAN: 1.Continue current medication. Change morning Thorazine from 200 to 100 mg. Restart the as needed Thorazine. Try some Protonix 2.Encourage sober living treatment after discharge, at the highest level of care, to which he is willing to commit. 3.Awaiting guardianship hearing.? Currently scheduled for July 23 but they are attempting to move return earlier date.? We will maintain him in the hospital until guardianship is approved and we have a safety plan for discharge. Involuntary Hold Information 96 Hour Hold: 96 Hour Involuntary Admission: No Attestations NPU Medical Necessity Statement*: Inpatient hospitalization is medically necessary and the clinically appropriate intervention at this time. We will initiate medications and make changes as indicated. 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
[2021-07-08] MEDS: hyDROXYzine 25 mg Capsule 50 MG PO ×2 (13:30→21:39)
--- NOTE | 2021-07-08 13:34 | PC.NURSE ---
PRN MED PT GIVEN 50MG VISTARIL AND 100MG THORAZINE FOR HALLUCINATIONS & ANXIETY, WILL CONTINUE TO MONITOR.
[2021-07-08 14:00] VITALS: BP 94/62; PULSE 79; RESP 16; TEMP 36.6; O2SAT 90
[2021-07-08] MEDS: haloperidol 5 mg Tablet PO ×2 (16:02→21:52)
[2021-07-08] MEDS: lurasidone 80 mg Tablet PO (16:59)
[2021-07-08] MEDS: carvedilol 6.25 mg Tablet 3.125 MG PO (20:45)
[2021-07-08] MEDS: trazodone 100 mg Tablet 200 MG PO (20:45)
[2021-07-08] MEDS: trazodone 50 mg Tablet PO (20:45)
[2021-07-08] MEDS: zolpidem 5 mg Tablet 10 MG PO (20:45)
[2021-07-08] MEDS: chlorPROMazine 50 mg Tablet 250 MG PO (20:46)
[2021-07-08] MEDS: dicyclomine 10 mg Capsule PO (20:49)
[2021-07-08 20:58] VITALS: BP 85/60; PULSE 113; RESP 16; TEMP 36.5; O2SAT 94
--- NOTE | 2021-07-08 21:52 | PC.NURSE ---
Patient c/o voices being really bad, telling me to kill myself and I'm starting to think of ways to do it. Patient contracted for safety, and requested PRN haldol, haldol given as ordered PRN.
[2021-07-08] MEDS: loperamide 2 mg Capsule PO (23:04)
[2021-07-09 06:00] VITALS: BP 92/59; PULSE 77; RESP 16; TEMP 36.8; O2SAT 92
[2021-07-09] MEDS: chlorPROMazine 50 mg Tablet 100 MG PO ×3 (06:31→15:43)
[2021-07-09] MEDS: buprenorphine-naloxone 4-1 mg Film 2 EACH SUBLINGUAL ×2 (06:31→18:02)
[2021-07-09] MEDS: aspirin 81 mg EC Tablet PO (11:05)
[2021-07-09] MEDS: apixaban 5 mg Tablet PO ×2 (11:10→20:12)
[2021-07-09] MEDS: nicotine 2 mg Gum BUCCAL ×4 (11:10→20:12)
[2021-07-09] MEDS: CLONazepam 0.5 mg Tablet PO ×2 (11:10→12:39)
[2021-07-09] MEDS: pantoprazole DR 40 mg Tablet PO (11:10)
[2021-07-09 11:14] VITALS: BP 88/53
--- NOTE | 2021-07-09 11:29 | PC.NURSE ---
AM Assessment Refused to get up and take meds and complete assessment until 1100 AM. BP was 88/53, coreg, spirolactone and losartan was contraindicated due to low BP and were not given. See MAR for details. Denies pain. Denies SI/HI and VH. Does report hearing voices but states they are not intrusive in nature. Informed patient if voices become more frequent or start telling him to hurt himself or others. States he will let staff know.
[2021-07-09] MEDS: dicyclomine 10 mg Capsule PO ×2 (12:13→20:11)
[2021-07-09] MEDS: hyDROXYzine 25 mg Capsule 50 MG PO ×2 (13:11→20:12)
[2021-07-09 14:00] VITALS: BP 115/81; PULSE 83; RESP 17; TEMP 36.7; O2SAT 93
--- NOTE | 2021-07-09 14:23 | PC.NURSE ---
PRN Medication C/O diarhea. Bently given PRN as ordered. Reassessed and states some effectiveness but is still having some gas.
[2021-07-09] MEDS: haloperidol 5 mg Tablet PO ×2 (14:30→21:36)
--- NOTE | 2021-07-09 15:49 | P.NPUPN_ITS ---
Subjective NPU Subjective: He says that he is doing fairly well. He asked about going home before the hearing. That was the first time in the last 10 days. He was told that was not possible. He is getting somewhat agitated by another male patient on the unit. He asked for some extra medication for that. Medications: Medication Review Details: ? Mental Status Exam MSE Comments: This is an overweight, versus obese, white male, in hospital scr [facility], with adequate grooming, and eye contact. No abnormal movements except for mild psychomotor retardation. Cooperative with exam in no acute distress. Speech was normal rate and volume. Mood described as good; affect appeared congruent. Thought process, organized. Thought content: patient denied any suicidal or homicidal ideation. He did report hearing voices but that they are better. Attention, concentration, and memory appeared intact but were not formally tested. Alert and oriented times three. Insight and judgment are limited, impulse control impaired.? Cognition: Patient Appearance: Appropriate Level of Consciousness: Awake and Alert Patient Cognition Impaired: No Ability to Follow Directions: Good Patient Orientation (long list): Person, Place, Name, Age and Year Comprehension Ability: Understands Concepts Hallucination Type: None Delusion Description: Not Present Thought Process: Appropriate and Logical Affect: Affect Description: Depressed and Flat Depressive Symptoms: Changes in Appetite, Difficulty Sleeping and Unhappiness Behavior: Patient Behavior: Appropriate and Cooperative Speech Pattern: Appropriate and Clear Vitals/I&O/Wt Last Vital Signs Temp 98.0 F 07/09/21 14:00 Pulse 83 07/09/21 14:00 Resp 17 07/09/21 14:00 BP 115/81 07/09/21 14:00 Pulse Ox 93 07/09/21 14:00 Data NPU : 06/04/21 09:00 06/04/21 09:00 A&P Assessment and plan (1) Suicidal ideation: Status: Acute (2) Schizophrenia: Status: Chronic (3) Cluster B personality disorder: Status: Chronic (4) Opiate misuse: Status: Chronic (5) Chronic anticoagulation: Status: Chronic (6) Hypotension: Status: Acute (7) Psychosis: Status: Chronic Plan This is a 36-year-old, white male, with long history of reports of psychosis, borderline personality disorder, addiction, and multiple suicide attempts, essentially every time that he has been discharged for the last year or two, who presents awaiting his guardianship hearing. ? RECOMMENDATION AND PLAN: 1.Continue current medication. Change morning Thorazine from 200 to 100 mg. Restart the as needed Thorazine. Try some Protonix 2.Encourage sober living treatment after discharge, at the highest level of care, to which he is willing to commit. 3.Awaiting guardianship hearing.? Currently scheduled for July 23 but they are attempting to move return earlier date.? We will maintain him in the hospital until guardianship is approved and we have a safety plan for discharge. Involuntary Hold Information 96 Hour Hold: 96 Hour Involuntary Admission: No Attestations NPU Medical Necessity Statement*: Inpatient hospitalization is medically necessary and the clinically appropriate intervention at this time. We will initiate medications and make changes as indicated. 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
[2021-07-09] MEDS: lurasidone 80 mg Tablet PO (16:03)
--- NOTE | 2021-07-09 16:04 | PC.SOCIAL ---
Patient attended and participated in group.
[2021-07-09] MEDS: trazodone 100 mg Tablet 200 MG PO (20:12)
[2021-07-09] MEDS: chlorPROMazine 50 mg Tablet 250 MG PO (20:12)
[2021-07-09] MEDS: carvedilol 6.25 mg Tablet 3.125 MG PO (20:12)
[2021-07-09] MEDS: zolpidem 5 mg Tablet 10 MG PO (20:12)
[2021-07-09] MEDS: trazodone 50 mg Tablet PO (20:12)
[2021-07-09 20:29] VITALS: BP 117/80; PULSE 66; RESP 17; TEMP 36.4; O2SAT 95
--- NOTE | 2021-07-09 21:48 | PC.NURSE ---
PRN Medication Hydroxyzine, nicotine, and Bentyl were given. Pt returned to nurses station requested Haldol for AH.
[2021-07-10] VITALS (7 sets, daily range): BP systolic 69–106; BP diastolic 39–71; PULSE 64–83; RESP 14–17; TEMP 36.4–36.8; O2SAT 90–98
[2021-07-10] MEDS: chlorPROMazine 50 mg Tablet 100 MG PO ×2 (06:28→15:19)
[2021-07-10] MEDS: buprenorphine-naloxone 4-1 mg Film 2 EACH SUBLINGUAL ×2 (06:28→18:03)
[2021-07-10] MEDS: losartan 50 mg Tablet 25 MG PO (08:20)
[2021-07-10] MEDS: nicotine 2 mg Gum BUCCAL ×3 (08:20→20:10)
[2021-07-10] MEDS: aspirin 81 mg EC Tablet PO (08:21)
[2021-07-10] MEDS: apixaban 5 mg Tablet PO ×2 (08:21→20:10)
[2021-07-10] MEDS: pantoprazole DR 40 mg Tablet PO (08:21)
[2021-07-10] MEDS: spironolactone 25 mg Tablet PO (08:21)
[2021-07-10] MEDS: CLONazepam 0.5 mg Tablet PO ×2 (08:21→12:18)
[2021-07-10] MEDS: carvedilol 6.25 mg Tablet 3.125 MG PO (08:22)
--- NOTE | 2021-07-10 12:27 | W.PM.NPUPNS ---
Subjective NPU Subjective: He says that he is doing fairly well. He did not ask about being able to go home before his hearing today. His hallucinations were a little bit more this morning. He continues to feel that his medication is working well and no changes are indicated. Medications: Medication Review Details: ? Mental Status Exam MSE Comments: This is an overweight, versus obese, white male, in hospital scrubs, with adequate grooming, and eye contact. No abnormal movements except for mild psychomotor retardation. Cooperative with exam in no acute distress. Speech was normal rate and volume. Mood described as good; affect appeared congruent. Thought process, organized. Thought content: patient denied any suicidal or homicidal ideation. He did report hearing voices but that they are better. Attention, concentration, and memory appeared intact but were not formally tested. Alert and oriented times three. Insight and judgment are limited, impulse control impaired.? Cognition: Patient Appearance: Appropriate Level of Consciousness: Awake and Alert Patient Cognition Impaired: No Ability to Follow Directions: Good Patient Orientation (long list): Person, Place, Name, Age and Year Comprehension Ability: Understands Concepts Hallucination Type: Auditory Delusion Description: Not Present Thought Process: Appropriate Affect: Affect Description: [place], Depressed and Flat Depressive Symptoms: Changes in Appetite, Difficulty Sleeping and Unhappiness Behavior: Patient Behavior: Appropriate and Cooperative Speech Pattern: Appropriate and Clear Vitals/I&O/Wt Last Vital Signs Temp 97.6 F 07/10/21 06:00 Pulse 81 07/10/21 06:00 Resp 16 07/10/21 06:00 BP 90/55 07/10/21 08:20 Pulse Ox 94 07/10/21 06:00 Data NPU : 06/04/21 09:00 06/04/21 09:00 A&P Assessment and plan (1) Suicidal ideation: Status: Acute (2) Schizophrenia: Status: Chronic (3) Cluster B personality disorder: Status: Chronic (4) Opiate misuse: Status: Chronic (5) Chronic anticoagulation: Status: Chronic (6) Hypotension: Status: Acute (7) Psychosis: Status: Chronic Plan This is a 36-year-old, white male, with long history of reports of psychosis, borderline personality disorder, addiction, and multiple suicide attempts, essentially every time that he has been discharged for the last year or two, who presents awaiting his guardianship hearing. ? RECOMMENDATION AND PLAN: 1.Continue current medication. Change morning Thorazine from 200 to 100 mg. Restart the as needed Thorazine. Protonix for stomach acid 2.Encourage sober living treatment after discharge, at the highest level of care, to which he is willing to commit. 3.Awaiting guardianship hearing.? Currently scheduled for July 23 but they are attempting to move return earlier date.? We will maintain him in the hospital until guardianship is approved and we have a safety plan for discharge. Involuntary Hold Information 96 Hour Hold: 96 Hour Involuntary Admission: No Attestations NPU Medical Necessity Statement*: Inpatient hospitalization is medically necessary and the clinically appropriate intervention at this time. We will initiate medications and make changes as indicated. 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
[2021-07-10] MEDS: dicyclomine 10 mg Capsule PO ×2 (14:23→18:03)
[2021-07-10] MEDS: lurasidone 80 mg Tablet PO (16:12)
[2021-07-10] MEDS: hyDROXYzine 25 mg Capsule 50 MG PO ×2 (16:12→23:11)
--- NOTE | 2021-07-10 16:51 | PC.SOCIAL ---
Patient did not attend group.
--- NOTE | 2021-07-10 19:53 | PC.NURSE ---
PCT reported patient blood pressure low, this RN auscultated patient lungs and heart sounds. lung sounds clear throughout all lobes, heart sounds clear negative for murmurs. patient bilateral radial pulses are strong. patient denies symptoms of dizziness, weakness, headache, unsteady gait. patient calm cooperative, up at nurses station talking with other patients.
[2021-07-10] MEDS: zolpidem 5 mg Tablet 10 MG PO (20:10)
--- NOTE | 2021-07-10 20:12 | PC.NURSE ---
this RN called Dr. House due to patient consistent low blood pressure, per Dr. House hold all medications except eliquis and ambien. patient upset, stating I have been here for 30 days I get those meds every night it isn't funny to not sleep. Patient told nobody said it was funny and explained it is not safe for him to take his normal night meds with a BP that low. Patient wants complaint form, demanding to talk to another nurse.
[2021-07-10] MEDS: OLANZapine 5 mg ODT PO (20:43)
--- NOTE | 2021-07-10 20:52 | PC.NURSE ---
patient continues to be irritable and upset, demanding from staff. patient wants Dr. House called again. Paula BUSTAMANTE called Dr. House which he stated we still need to hold trazodone and thorazine tonight but can give zyprexa. patient states that does nothing for me just give me haldol . patient told we are doing what the doctor ordered.
--- NOTE | 2021-07-10 21:05 | PC.NURSE ---
Charge Nurse was notified of pts low blood pressure. BP was 69/39.
[2021-07-10] MEDS: haloperidol 5 mg Tablet PO (22:04)
--- NOTE | 2021-07-11 00:33 | PC.NURSE ---
2042- Zyprexa given po for agitation, 2203-given vistartil for anxiety,2203-Given haldol for anxiety. They were effective. He apologizing for his behavior earlier.
[2021-07-11 06:00] VITALS: BP 89/60; PULSE 100; RESP 16; O2SAT 93
[2021-07-11] MEDS: buprenorphine-naloxone 4-1 mg Film 2 EACH SUBLINGUAL ×2 (06:03→18:16)
[2021-07-11] MEDS: chlorPROMazine 50 mg Tablet 100 MG PO ×3 (06:03→18:15)
[2021-07-11] MEDS: nicotine 2 mg Gum BUCCAL ×8 (07:13→20:16)
[2021-07-11 08:29] VITALS: BP 89/60
[2021-07-11] MEDS: spironolactone 25 mg Tablet PO (08:29)
[2021-07-11] MEDS: losartan 50 mg Tablet 25 MG PO (08:29)
[2021-07-11] MEDS: hyDROXYzine 25 mg Capsule 50 MG PO ×3 (08:30→20:59)
[2021-07-11] MEDS: aspirin 81 mg EC Tablet PO (08:30)
[2021-07-11] MEDS: carvedilol 6.25 mg Tablet 3.125 MG PO (08:31)
[2021-07-11] MEDS: CLONazepam 0.5 mg Tablet PO ×2 (08:31→13:01)
[2021-07-11] MEDS: pantoprazole DR 40 mg Tablet PO (08:31)
[2021-07-11] MEDS: apixaban 5 mg Tablet PO (08:33)
--- NOTE | 2021-07-11 12:50 | W.PM.NPUPNS ---
Subjective NPU Subjective: He is upset because the Thorazine was held last night because his blood pressure was 69/39. He says it is always low and he needs his Thorazine. He agreed to discontinue the spironolactone. We will follow how he does with that. Medications: Medication Review Details: ? Mental Status Exam MSE Comments: This is an overweight, versus obese, white male, in hospital scrubs, with adequate grooming, and eye contact. No abnormal movements except for mild psychomotor retardation. Cooperative with exam in no acute distress. Speech was normal rate and volume. Mood described as good; affect appeared congruent. Thought process, organized. Thought content: patient denied any suicidal or homicidal ideation. He did report hearing voices and they are a little worse since he did not have his Thorazine last night.. Attention, concentration, and memory appeared intact but were not formally tested. Alert and oriented times three. Insight and judgment are limited, impulse control impaired.? Cognition: Patient Appearance: Disheveled/Poor Hygiene Level of Consciousness: Awake and Alert Patient Cognition Impaired: No Ability to Follow Directions: Good Patient Orientation (long list): Person, Place, Name, Age and Year Comprehension Ability: Understands Concepts Hallucination Type: Auditory Delusion Description: Not Present Thought Process: Appropriate Affect: Affect Description: Appropriate Depressive Symptoms: Changes in Appetite, Difficulty Sleeping and Unhappiness Behavior: Patient Behavior: Appropriate and Cooperative Speech Pattern: Appropriate and Clear Vitals/I&O/Wt Last Vital Signs Temp 98.3 F 07/10/21 13:47 Pulse 100 07/11/21 06:00 Resp 16 07/11/21 06:00 BP 89/60 07/11/21 08:29 Pulse Ox 93 07/11/21 06:00 Data NPU : 06/04/21 09:00 06/04/21 09:00 A&P Assessment and plan (1) Suicidal ideation: Status: Acute (2) Schizophrenia: Status: Chronic (3) Cluster B personality disorder: Status: Chronic (4) Opiate misuse: Status: Chronic (5) Chronic anticoagulation: Status: Chronic (6) Hypotension: Status: Acute (7) Psychosis: Status: Chronic Plan This is a 36-year-old, white male, with long history of reports of psychosis, borderline personality disorder, addiction, and multiple suicide attempts, essentially every time that he has been discharged for the last year or two, who presents awaiting his guardianship hearing. ? RECOMMENDATION AND PLAN: 1.Continue current medication. Change morning Thorazine from 200 to 100 mg. Restart the as needed Thorazine. Protonix for stomach acid 2.Encourage sober living treatment after discharge, at the highest level of care, to which he is willing to commit. 3.Awaiting guardianship hearing.? Currently scheduled for July 23 but they are attempting to move return earlier date.? We will maintain him in the hospital until guardianship is approved and we have a safety plan for discharge. Involuntary Hold Information 96 Hour Hold: 96 Hour Involuntary Admission: No Attestations NPU Medical Necessity Statement*: Inpatient hospitalization is medically necessary and the clinically appropriate intervention at this time. We will initiate medications and make changes as indicated. 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
--- NOTE | 2021-07-11 13:50 | PC.NURSE ---
PRN Medication Up to nurses station request, Something for the voices, Thorazine 100 mg given as ordered at 1227. Reassessed at 1330 and states it has improved.
--- NOTE | 2021-07-11 13:52 | PC.NURSE ---
Complains of Chest pain At 1234 PM patient to nurses station and reports chest pain, 04/06. VS obtained 98 temp, 17 RR, 114/76 and 79 HR and 97% RA. Patient spoke to Dr. House and this RN came up to assess. Patient states the pain is like a tickle. Denies arm, jaw pain, denies nausea and pressure to chest. Reasesses at 1300 and was in day area playing games in no distress, was yelling and having fun. No further intervention needed.
[2021-07-11] MEDS: haloperidol 5 mg Tablet PO ×2 (13:59→22:12)
[2021-07-11 14:00] VITALS: BP 102/69; PULSE 85; RESP 17; TEMP 36.7; O2SAT 94
[2021-07-11] MEDS: lurasidone 80 mg Tablet PO (16:10)
[2021-07-11] MEDS: dicyclomine 10 mg Capsule PO ×2 (16:18→20:16)
[2021-07-11] MEDS: OLANZapine 5 mg ODT PO (17:13)
--- NOTE | 2021-07-11 17:14 | PC.NURSE ---
PRN Medication At nurses station states, the voices and anxiety is getting worse. Patient wanted Thorazine 100 mg. This RN unable to give due to being administered at 1227 and being to early. Voices understanding and request Zydis. Zydis 5 mg given as ordered for anxiety and c/o increased voices,
[2021-07-11 19:55] VITALS: BP 95/63; PULSE 84; RESP 18; TEMP 36.6; O2SAT 96
[2021-07-11] MEDS: zolpidem 5 mg Tablet 10 MG PO (20:16)
[2021-07-11] MEDS: trazodone 100 mg Tablet 200 MG PO (20:16)
[2021-07-11] MEDS: trazodone 50 mg Tablet PO (20:16)
[2021-07-11] MEDS: chlorPROMazine 50 mg Tablet 250 MG PO (20:17)
--- NOTE | 2021-07-11 22:13 | PC.NURSE ---
2013-Rec'kaitlin mistry for his voices.
--- NOTE | 2021-07-11 22:25 | PC.NURSE ---
2016 C/O charles Schwartz given po 2058-requested vistaril for his anxiety,.
[2021-07-12 06:00] VITALS: BP 80/46; PULSE 79; RESP 16; TEMP 36.9
[2021-07-12] MEDS: chlorPROMazine 50 mg Tablet 100 MG PO ×2 (06:40→15:16)
[2021-07-12] MEDS: nicotine 2 mg Gum BUCCAL ×5 (06:40→20:23)
[2021-07-12] MEDS: buprenorphine-naloxone 4-1 mg Film 2 EACH SUBLINGUAL ×2 (06:40→18:02)
[2021-07-12 08:23] VITALS: BP 99/56
[2021-07-12] MEDS: CLONazepam 0.5 mg Tablet PO ×2 (08:23→13:09)
[2021-07-12] MEDS: losartan 50 mg Tablet 25 MG PO (08:23)
[2021-07-12] MEDS: pantoprazole DR 40 mg Tablet PO (08:26)
[2021-07-12] MEDS: hyDROXYzine 25 mg Capsule 50 MG PO ×3 (08:26→21:56)
[2021-07-12] MEDS: aspirin 81 mg EC Tablet PO (08:26)
[2021-07-12] MEDS: carvedilol 6.25 mg Tablet 3.125 MG PO ×2 (08:48→20:22)
--- NOTE | 2021-07-12 09:11 | PC.NURSE ---
Up early this AM, requesting medications. Usually up later around 10 or 11. Denies pain. Denies Si/HI and VH. Continues to report AH and states they are always there. AM medications given to eleviate AH.
--- NOTE | 2021-07-12 13:19 | P.NPUPN_ITS ---
Subjective NPU Subjective: He has not been taking his Eliquis because he decided that it was causing his diarrhea. He says that he has not had diarrhea since he stopped taking it. I told him I did not know what to do with his clotting if he was going to stop that. He agreed to go back on it but only once a day. The voices are better with the Thorazine again last night. His blood pressure continues to be low but better than it was before discontinuing the spironolactone. Medications: Medication Review Details: ? Mental Status Exam MSE Comments: This is an overweight, versus obese, white male, in hospital scrubs, with adequate grooming, and eye contact. No abnormal movements except for mild psychomotor retardation. Cooperative with exam in no acute distress. Speech was normal rate and volume. Mood described as good; affect appeared co ngruent. Thought process, organized. Thought content: patient denied any suicidal or homicidal ideation. He did report hearing voices and they are a little worse since he did not have his Thorazine last night.. Attention, concentration, and memory appeared intact but were not formally tested. Alert and oriented times three. Insight and judgment are limited, impulse control impaired.? Cognition: Patient Appearance: Disheveled/Poor Hygiene Level of Consciousness: Awake and Alert Patient Cognition Impaired: No Ability to Follow Directions: Good Patient Orientation (long list): Person, Place, Name, Age and Year Comprehension Ability: Understands Concepts Hallucination Type: Auditory Delusion Description: Not Present Thought Process: Appropriate Affect: Affect Description: Flat and Labile Depressive Symptoms: Changes in Appetite, Difficulty Sleeping and Unhappiness Behavior: Patient Behavior: Appropriate and Cooperative Speech Pattern: Appropriate and Clear Vitals/I&O/Wt Last Vital Signs Temp 98.4 F 07/12/21 06:00 Pulse 79 07/12/21 06:00 Resp 16 07/12/21 06:00 BP 99/56 07/12/21 08:23 Pulse Ox 96 07/11/21 19:55 Weight last 48 hrs Weight 106.776 kg Data NPU : 06/04/21 09:00 06/04/21 09:00 A&P Assessment and plan (1) Suicidal ideation: Status: Acute (2) Schizophrenia: Status: Chronic (3) Cluster B personality disorder: Status: Chronic (4) Opiate misuse: Status: Chronic (5) Chronic anticoagulation: Status: Chronic (6) Hypotension: Status: Acute (7) Psychosis: Status: Chronic Plan This is a 36-year-old, white male, with long history of reports of psychosis, borderline personality disorder, addiction, and multiple suicide attempts, essentially every time that he has been discharged for the last year or two, who presents awaiting his guardianship hearing. ? RECOMMENDATION AND PLAN: 1.Continue current medication. Change morning Thorazine from 200 to 100 mg. Restart the as needed Thorazine. Protonix for stomach acid 2.Encourage sober living treatment after discharge, at the highest level of care, to which he is willing to commit. 3.Awaiting guardianship hearing.? Currently scheduled for July 23 but they are attempting to move return earlier date.? We will maintain him in the hospital until guardianship is approved and we have a safety plan for discharge. Involuntary Hold Information 96 Hour Hold: 96 Hour Involuntary Admission: No Attestations NPU Medical Necessity Statement*: Inpatient hospitalization is medically necessary and the clinically appropriate intervention at this time. We will initiate medications and make changes as indicated. 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
--- NOTE | 2021-07-12 13:29 | P.NPUPN_ITS ---
Subjective NPU Subjective: He says that the voices have been a little bit worse since they held his Thorazine a couple of nights ago. He was concerned because his medications for his heart were held again this morning. His blood pressure was low when I woke him up and took his blood pressure at 5:30 in the morning but then they were close to normal for him at 9 AM when they held his medication. Nurses were asked to give him his Coreg but hold the losartan for today. Medications: Medication Review Details: ? Mental Status Exam MSE Comments: This is an overweight, versus obese, white male, in hospital scrubs, with adequate grooming, and eye contact. No abnormal movements except for mild psychomotor retardation. Cooperative with exam in no acute distress. Speech was normal rate and volume. Mood described as good; affect appeared congruent. Thought process, organized. Thought content: patient denied any suicidal or homicidal ideation. He did report hearing voices and they are a little worse since he did not have his Thorazine 2 nights ago. Attention, concentration, and memory appeared intact but were not formally tested. Alert and oriented times three. Insight and judgment are limited, impulse control impaired.? Cognition: Patient Appearance: Disheveled/Poor Hygiene Level of Consciousness: Awake and Alert Patient Cognition Impaired: No Ability to Follow Directions: Good Patient Orientation (long list): Person, Place, Name, Age and Year Comprehension Ability: Understands Concepts Hallucination Type: None Delusion Description: Not Present Thought Process: Appropriate Affect: Affect Description: Anxious, [place], Depressed and Flat Depressive Symptoms: Changes in Appetite, Difficulty Sleeping and Unhappiness Behavior: Patient Behavior: Appropriate and Cooperative Speech Pattern: Appropriate and Clear Vitals/I&O/Wt Last Vital Signs Temp 98.4 F 07/12/21 06:00 Pulse 79 07/12/21 06:00 Resp 16 07/12/21 06:00 BP 99/56 07/12/21 08:23 Pulse Ox 96 07/11/21 19:55 Weight last 48 hrs Weight 106.776 kg Data NPU : 06/04/21 09:00 06/04/21 09:00 A&P Assessment and plan (1) Suicidal ideation: Status: Acute (2) Schizophrenia: Status: Chronic (3) Cluster B personality disorder: Status: Chronic (4) Opiate misuse: Status: Chronic (5) Chronic anticoagulation: Status: Chronic (6) Hypotension: Status: Acute (7) Psychosis: Status: Chronic Plan This is a 36-year-old, white male, with long history of reports of psychosis, borderline personality disorder, addiction, and multiple suicide attempts, essentially every time that he has been discharged for the last year or two, who presents awaiting his guardianship hearing. ? RECOMMENDATION AND PLAN: 1.Continue current medication. Change morning Thorazine from 200 to 100 mg. Restart the as needed Thorazine. Protonix for stomach acid 2.Encourage sober living treatment after discharge, at the highest level of care, to which he is willing to commit. 3.Awaiting guardianship hearing.? Currently scheduled for July 23 but they are attempting to move return earlier date.? We will maintain him in the hospital until guardianship is approved and we have a safety plan for discharge. Involuntary Hold Information 96 Hour Hold: 96 Hour Involuntary Admission: No Attestations NPU Medical Necessity Statement*: Inpatient hospitalization is medically necessary and the clinically appropriate intervention at this time. We will initiate medications and make changes as indicated. 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
[2021-07-12] MEDS: apixaban 5 mg Tablet PO (13:40)
[2021-07-12] MEDS: dicyclomine 10 mg Capsule PO ×3 (13:40→20:41)
[2021-07-12 14:00] VITALS: BP 109/73; PULSE 84; RESP 17; TEMP 36.4; O2SAT 95
[2021-07-12] MEDS: haloperidol 5 mg Tablet PO ×2 (14:26→22:44)
[2021-07-12] MEDS: OLANZapine 5 mg ODT PO (15:32)
[2021-07-12] MEDS: loperamide 2 mg Capsule PO (15:59)
[2021-07-12] MEDS: lurasidone 80 mg Tablet PO (16:01)
--- NOTE | 2021-07-12 16:52 | PC.NURSE ---
PRN Medications Received PRN medications throughout the day due to having a increase in hearing voices. Thorazine 100 mg, Haldol 5 mg and Zydis 5 mg given as orderd throughout the shift. Some relief noted. Currently eating dinner, appears to be in no distress.
[2021-07-12] MEDS: ammonium lactate lotion 226 gm Btl 1 APPLIC TOPICAL (17:23)
[2021-07-12] MEDS: chlorPROMazine 50 mg Tablet 250 MG PO (20:21)
[2021-07-12] MEDS: trazodone 100 mg Tablet 200 MG PO (20:22)
[2021-07-12] MEDS: trazodone 50 mg Tablet PO (20:22)
[2021-07-12] MEDS: zolpidem 5 mg Tablet 10 MG PO (20:23)
[2021-07-12 20:29] VITALS: BP 102/71; PULSE 88; RESP 16; TEMP 36.4; O2SAT 95
[2021-07-13 06:00] VITALS: BP 86/51; PULSE 80; RESP 17; TEMP 36.8; O2SAT 92
[2021-07-13] MEDS: buprenorphine-naloxone 4-1 mg Film 2 EACH SUBLINGUAL ×2 (06:10→19:06)
[2021-07-13] MEDS: nicotine 2 mg Gum BUCCAL ×5 (06:10→20:58)
[2021-07-13] MEDS: chlorPROMazine 50 mg Tablet 100 MG PO ×2 (06:10→13:45)
[2021-07-13] MEDS: pantoprazole DR 40 mg Tablet PO (10:09)
[2021-07-13] MEDS: apixaban 5 mg Tablet PO (10:09)
[2021-07-13] MEDS: CLONazepam 0.5 mg Tablet PO ×2 (10:10→12:30)
[2021-07-13] MEDS: losartan 50 mg Tablet 25 MG PO (10:10)
[2021-07-13] MEDS: carvedilol 6.25 mg Tablet 3.125 MG PO ×2 (10:10→20:59)
[2021-07-13] MEDS: aspirin 81 mg EC Tablet PO (10:11)
[2021-07-13] MEDS: hyDROXYzine 25 mg Capsule 50 MG PO ×2 (10:11→20:59)
[2021-07-13] MEDS: dicyclomine 10 mg Capsule PO ×3 (10:25→21:19)
[2021-07-13] MEDS: diphenhydrAMINE 50 mg/mL SDV 1mL IM (11:44)
--- NOTE | 2021-07-13 12:18 | PC.NURSE ---
PT TO NURSES STATION AT LUNCH. REPORTS THAT THERE WAS A MUSHROOM IN HIS LUNCH AND THAT HE FELT HIS THROAT ITCHING AND TINGLING. DR NOTIFIED, NEW ORDER FOR ONE TOME IM BENADRYL 50 MG. GIVEN TO LEFT DELTOID WITHOUT ISSUE. CAFETERIA CALLED, DENY THAT MUSHROOMS WERE IN GRAVY. BY APPEARANCE ON FOOD TRAY, APPEARS TO POSSIBLY BE CLUMPS IN GRAVY. PT HAS NO CONTINUE C/O SYMPTOMS AT THIS TIME. STAFF WILL CONTINUE TO MONITOR.
[2021-07-13] MEDS: acetaminophen 325 mg Tablet 650 MG PO (12:47)
[2021-07-13 14:00] VITALS: BP 104/75; PULSE 82; RESP 17; TEMP 36.3; O2SAT 95
[2021-07-13] MEDS: lurasidone 80 mg Tablet PO (16:43)
[2021-07-13] MEDS: haloperidol 5 mg Tablet PO ×2 (17:40→22:56)
[2021-07-13 19:50] VITALS: BP 102/69; PULSE 71; RESP 17; TEMP 36.6; O2SAT 97
[2021-07-13] MEDS: trazodone 50 mg Tablet PO (20:58)
[2021-07-13] MEDS: chlorPROMazine 50 mg Tablet 250 MG PO (20:58)
[2021-07-13] MEDS: zolpidem 5 mg Tablet 10 MG PO (20:59)
[2021-07-13] MEDS: trazodone 100 mg Tablet 200 MG PO (20:59)
--- NOTE | 2021-07-13 22:57 | PC.NURSE ---
pt requested Haldol by name, stating my voices are getting really loud. Haldol 5mg po given.
[2021-07-14 06:00] VITALS: BP 76/55; PULSE 89; RESP 17; TEMP 36.7; O2SAT 92
[2021-07-14] MEDS: buprenorphine-naloxone 4-1 mg Film 2 EACH SUBLINGUAL ×2 (06:27→18:36)
[2021-07-14] MEDS: chlorPROMazine 50 mg Tablet 100 MG PO ×2 (06:27→13:08)
[2021-07-14] MEDS: pantoprazole DR 40 mg Tablet PO (10:28)
[2021-07-14] MEDS: apixaban 5 mg Tablet PO (10:29)
[2021-07-14] MEDS: nicotine 2 mg Gum BUCCAL ×4 (10:29→20:40)
[2021-07-14] MEDS: hyDROXYzine 25 mg Capsule 50 MG PO ×2 (10:29→20:41)
[2021-07-14] MEDS: aspirin 81 mg EC Tablet PO (10:29)
[2021-07-14] MEDS: CLONazepam 0.5 mg Tablet PO ×2 (10:29→12:12)
[2021-07-14 10:31] VITALS: BP 76/55
[2021-07-14] MEDS: dicyclomine 10 mg Capsule PO ×2 (10:51→20:40)
--- NOTE | 2021-07-14 11:03 | P.NPUPN_ITS ---
Subjective NPU Subjective: He reports that he is doing relatively well. The voices continue but they are under control with the as needed medications. He continues to want to go home before the guardianship hearing but agrees to wait. Medications: Medication Review Details: This is an overweight, versus obese, white male, in hospital scrubs, with adequate grooming, and eye contact. No abnormal movements except for mild psychomotor retardation. Cooperative with exam in no acute distress. Speech was normal rate and volume. Mood described as pretty good just anxious waiting affect appeared congruent. Thought process, organized. Thought content: patient denied any suicidal or homicidal ideation.? There were no delusions reported or noted, he denied any auditory or visual hallucinations. Attention, concentration, and memory appeared intact but were not formally tested.? He was alert and oriented times three. Insight and judgment appeared fair, impulse control appeared fair in a locked facility.? Mental Status Exam MSE Comments: This is an overweight, versus obese, white male, in hospital scrubs, with adequate grooming, and eye contact. No abnormal movements except for mild psychomotor retardation. Cooperative with exam in no acute distress. Speech was normal rate and volume. Mood described as good; affect appeared congruent. Thought process, organized. Thought content: patient denied any suicidal or homicidal ideation. He did report hearing voices and they are a little worse since he did not have his Thorazine 2 nights ago. Attention, concentration, and memory appeared intact but were not formally tested. Alert and oriented times three. Insight and judgment are limited, impulse control impaired.? Cognition: Patient Appearance: Disheveled/Poor Hygiene Level of Consciousness: Awake and Alert Patient Cognition Impaired: No Ability to Follow Directions: Good Patient Orientation (long list): Person, Place, Name, Age and Birthday Comprehension Ability: Understands Concepts Hallucination Type: None Delusion Description: Not Present Thought Process: Appropriate Affect: Affect Description: Appropriate, Anxious and Calm Depressive Symptoms: Changes in Appetite, Difficulty Sleeping and Unhappiness Behavior: Patient Behavior: Appropriate and Cooperative Speech Pattern: Appropriate and Clear Vitals/I&O/Wt Last Vital Signs Temp 99.1 F 07/24/21 06:09 Pulse 106 H 07/24/21 06:09 Resp 16 07/24/21 06:09 BP 94/68 07/24/21 06:09 Pulse Ox 99 07/24/21 06:09 Data NPU : 06/04/21 09:00 06/04/21 09:00 A&P Assessment and plan (1) Suicidal ideation: Status: Resolved (2) Schizophrenia: Status: Chronic (3) Cluster B personality disorder: Status: Chronic (4) Opiate misuse: Status: Chronic (5) Hypotension: Status: Acute (6) Chronic anticoagulation: Status: Chronic (7) Psychosis: Status: Chronic Plan This is a 36-year-old, white male, with long history of reports of psychosis, borderline personality disorder, addiction, and multiple suicide attempts, essentially every time that he has been discharged for the last year or two, who presents awaiting his guardianship hearing.? ? RECOMMENDATION AND PLAN: 1.Continue current medication.? Change morning Thorazine from 200 to 100 mg.? Restart the as needed Thorazine.? Protonix for stomach acid 2.Encourage sober living treatment after discharge, at the highest level of care, to which he is willing to commit. 3.Awaiting guardianship hearing.? Currently scheduled for July 23 but they are attempting to move return earlier date.? We will maintain him in the hospital until guardianship is approved and we have a safety plan for discharge. Involuntary Hold Information 96 Hour Hold: 96 Hour Involuntary Admission: No Attestations NPU Medical Necessity Statement*: Inpatient hospitalization is medically necessary and the clinically appropriate intervention at this time. We will initiate medications and make changes as indicated. 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
[2021-07-14] MEDS: carvedilol 6.25 mg Tablet 3.125 MG PO ×2 (13:09→20:40)
--- NOTE | 2021-07-14 13:11 | PC.NURSE ---
Prn note Per Dr. House, give morning dose of Coreg now. B/p 92/62
[2021-07-14] MEDS: haloperidol 5 mg Tablet PO (13:41)
[2021-07-14 14:00] VITALS: BP 121/83; PULSE 78; RESP 17; TEMP 36.7; O2SAT 95
--- NOTE | 2021-07-14 14:46 | PC.NURSE ---
Pt requested that the nurse dispose of 50 qty of benadryl tabs and capsules. Pt had overdosed on benadryl at the time of admission. Nursing staff disposed of the medication.
[2021-07-14] MEDS: OLANZapine 5 mg ODT PO (15:41)
[2021-07-14] MEDS: lurasidone 80 mg Tablet PO (15:41)
[2021-07-14] MEDS: zolpidem 5 mg Tablet 10 MG PO (20:40)
[2021-07-14] MEDS: trazodone 50 mg Tablet PO (20:40)
[2021-07-14] MEDS: trazodone 100 mg Tablet 200 MG PO (20:41)
[2021-07-14] MEDS: chlorPROMazine 50 mg Tablet 250 MG PO (20:41)
[2021-07-14 22:00] VITALS: BP 91/52; PULSE 87; RESP 19; TEMP 36.6; O2SAT 95
[2021-07-15 05:21] VITALS: BP 89/54; PULSE 73; RESP 17; TEMP 36.8; O2SAT 92
[2021-07-15] MEDS: buprenorphine-naloxone 4-1 mg Film 2 EACH SUBLINGUAL ×2 (06:10→18:02)
[2021-07-15] MEDS: chlorPROMazine 50 mg Tablet 100 MG PO ×2 (06:11→14:47)
[2021-07-15] MEDS: losartan 50 mg Tablet 25 MG PO (08:34)
[2021-07-15] MEDS: carvedilol 6.25 mg Tablet 3.125 MG PO ×2 (08:34→20:31)
[2021-07-15] MEDS: pantoprazole DR 40 mg Tablet PO (08:35)
[2021-07-15] MEDS: CLONazepam 0.5 mg Tablet PO ×2 (08:35→12:35)
[2021-07-15] MEDS: aspirin 81 mg EC Tablet PO (08:35)
[2021-07-15] MEDS: apixaban 5 mg Tablet PO (08:35)
[2021-07-15] MEDS: nicotine 2 mg Gum BUCCAL ×5 (08:37→20:30)
[2021-07-15] MEDS: hyDROXYzine 25 mg Capsule 50 MG PO ×2 (10:20→22:23)
[2021-07-15 14:00] VITALS: BP 101/70; PULSE 88; RESP 17; TEMP 37.1; O2SAT 93
--- NOTE | 2021-07-15 14:24 | P.NPUPN_ITS ---
Subjective NPU Subjective: The voices seem to be better again now that he has had a few doses of Thorazine since he missed the 1 dose at bedtime 3 days ago.. His blood pressure continues to be but he has received his medications. His guardianship hearing is 1 week from tomorrow. Medications: Medication Review Details: ? Mental Status Exam MSE Comments: This is an overweight, versus obese, white male, in hospital scrubs, with adequate grooming, and eye contact. No abnormal movements except for mild psychomotor retardation. Cooperative with exam in no acute distress. Speech was normal rate and volume. Mood described as good; affect appeared congruent. Thought process, organized. Thought content: patient denied any suicidal or homicidal ideation. He did report hearing voices and they are a little worse since he did not have his Thorazine 2 nights ago. Attention, concentration, and memory appeared intact but were not formally tested. Alert and oriented times three. Insight and judgment are limited, impulse control impaired.? Cognition: Patient Appearance: Disheveled/Poor Hygiene Level of Consciousness: Awake and Alert Patient Cognition Impaired: No Ability to Follow Directions: Good Patient Orientation (long list): Person, Place, Time, Name and Age Comprehension Ability: Understands Concepts Hallucination Type: None Delusion Description: Not Present Thought Process: Appropriate Affect: Affect Description: Appropriate Depressive Symptoms: Changes in Appetite, Difficulty Sleeping and Unhappiness Behavior: Patient Behavior: Appropriate and Cooperative Speech Pattern: Appropriate and Clear Vitals/I&O/Wt Last Vital Signs Temp 98.3 F 07/15/21 05:21 Pulse 73 07/15/21 05:21 Resp 17 07/15/21 05:21 BP 89/54 07/15/21 05:21 Pulse Ox 92 07/15/21 05:21 Data NPU : 06/04/21 09:00 06/04/21 09:00 A&P Assessment and plan (1) Suicidal ideation: Status: Acute (2) Schizophrenia: Status: Chronic (3) Cluster B personality disorder: Status: Chronic (4) Opiate misuse: Status: Chronic (5) Chronic anticoagulation: Status: Chronic (6) Hypotension: Status: Acute (7) Psychosis: Status: Chronic Plan This is a 36-year-old, white male, with long history of reports of psychosis, borderline personality disorder, addiction, and multiple suicide attempts, essentially every time that he has been discharged for the last year or two, who presents awaiting his guardianship hearing. ? RECOMMENDATION AND PLAN: 1.Continue current medication. Change morning Thorazine from 200 to 100 mg. Restart the as needed Thorazine. Protonix for stomach acid 2.Encourage sober living treatment after discharge, at the highest level of care, to which he is willing to commit. 3.Awaiting guardianship hearing.? Currently scheduled for July 23 but they are attempting to move return earlier date.? We will maintain him in the hospital until guardianship is approved and we have a safety plan for discharge. Involuntary Hold Information 96 Hour Hold: 96 Hour Involuntary Admission: No Attestations NPU Medical Necessity Statement*: Inpatient hospitalization is medically necessary and the clinically appropriate intervention at this time. We will initiate medications and make changes as indicated. 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
--- NOTE | 2021-07-15 14:42 | PC.SOCIAL ---
Patient attended and participated in group.
[2021-07-15] MEDS: lurasidone 80 mg Tablet PO (16:39)
[2021-07-15] MEDS: haloperidol 5 mg Tablet PO (17:29)
--- NOTE | 2021-07-15 17:38 | PC.NURSE ---
PRN MEDS PT GIVEN 100MG THORAZINE, AND 5MG HALDOL FOR HALLUCINATIONS AND IRRITATION, WILL CONTINUE TO MONITOR.
[2021-07-15 19:56] VITALS: BP 96/64; PULSE 78; RESP 16; TEMP 36.6; O2SAT 93
[2021-07-15] MEDS: trazodone 50 mg Tablet PO (20:30)
[2021-07-15] MEDS: zolpidem 5 mg Tablet 10 MG PO (20:30)
[2021-07-15] MEDS: trazodone 100 mg Tablet 200 MG PO (20:31)
[2021-07-15] MEDS: chlorPROMazine 50 mg Tablet 250 MG PO (20:31)
--- NOTE | 2021-07-15 23:35 | PC.NURSE ---
2223-C/O anxiety. vistaril given. 2333- resting in bed at this time.
[2021-07-16 06:00] VITALS: BP 96/65; PULSE 85; RESP 19; O2SAT 93
[2021-07-16] MEDS: chlorPROMazine 50 mg Tablet 100 MG PO ×2 (06:42→13:26)
[2021-07-16] MEDS: buprenorphine-naloxone 4-1 mg Film 2 EACH SUBLINGUAL ×2 (06:43→18:30)
[2021-07-16 08:30] VITALS: BP 96/65
[2021-07-16] MEDS: CLONazepam 0.5 mg Tablet PO ×2 (08:30→12:17)
[2021-07-16] MEDS: aspirin 81 mg EC Tablet PO (08:30)
[2021-07-16] MEDS: losartan 50 mg Tablet 25 MG PO (08:30)
[2021-07-16] MEDS: apixaban 5 mg Tablet PO (08:31)
[2021-07-16] MEDS: pantoprazole DR 40 mg Tablet PO (08:31)
[2021-07-16] MEDS: nicotine 2 mg Gum BUCCAL ×6 (08:31→20:45)
[2021-07-16] MEDS: carvedilol 6.25 mg Tablet 3.125 MG PO ×2 (08:52→20:46)
[2021-07-16] MEDS: dicyclomine 10 mg Capsule PO (08:53)
[2021-07-16] MEDS: hyDROXYzine 25 mg Capsule 50 MG PO ×2 (10:32→20:46)
--- NOTE | 2021-07-16 10:43 | PC.NURSE ---
pt has been up to dayroom and nurses station, requests bentyl inititally for anxiety and nerves, prn bentyl po given. pt returned to nurses station requesting vistril for anxiety, pt has been on phone with uncle about retaining a new jitterbug operator for guardianship trial upcoming on the . pt has been walking the halls this am
[2021-07-16 14:00] VITALS: BP 89/55; PULSE 52; RESP 16; TEMP 36.7; O2SAT 95
[2021-07-16] MEDS: haloperidol 5 mg Tablet PO (15:18)
[2021-07-16] MEDS: lurasidone 80 mg Tablet PO (16:34)
--- NOTE | 2021-07-16 19:47 | W.PM.NPUPNS ---
Subjective NPU Subjective: Patient presents today reporting that he has been doing okay since my last day on service. He is optimistic about the fact that his date for guardianship hearing is a week from today. He reports that he and his family have a paid media analytics manager which makes him feel more comfortable. We discussed the different options after the rendering of the hearing occurs. He denied having any issues other than poor sleep which he attributes to boredom and inactivity here on the unit. Mental Status Exam MSE Comments: This is an overweight, versus obese, white male, in hospital scrubs, with adequate grooming, and eye contact. No abnormal movements except for mild psychomotor retardation. Cooperative with exam in no acute distress. Speech was normal rate and volume. Mood described as good; affect appeared congruent. Thought process, organized. Thought content: patient denied any suicidal or homicidal ideation. There were no delusions reported or noted, he denied any auditory or visual hallucinations. Attention, concentration, and memory appeared intact but were not formally tested. He was alert and oriented times three. Insight and judgment appeared fair, impulse control appeared fair in a locked facility.? Vitals/I&O/Wt Last Vital Signs Temp 97.4 F L 07/16/21 21:12 Pulse 88 07/16/21 21:12 Resp 18 07/16/21 21:12 BP 101/71 07/16/21 21:12 Pulse Ox 96 07/16/21 21:12 Data NPU : 06/04/21 09:00 06/04/21 09:00 A&P Assessment and plan (1) Suicidal ideation: Status: Acute (2) Schizophrenia: Status: Chronic (3) Cluster B personality disorder: Status: Chronic (4) Opiate misuse: Status: Chronic (5) Hypotension: Status: Acute (6) Psychosis: Status: Chronic Plan This is a 36-year-old, white male, with long history of reports of psychosis, borderline personality disorder, addiction, and multiple suicide attempts, essentially every time that he has been discharged for the last year or two, who presents awaiting his guardianship hearing.? ? RECOMMENDATION AND PLAN: 1.Continue current medication.? Changed morning Thorazine from 200 to 100 mg.? Restart the as needed Thorazine.? Protonix for stomach acid 2.Encourage sober living treatment after discharge, at the highest level of care, to which he is willing to commit. 3.Awaiting guardianship hearing.? Currently scheduled for July 23 but they are attempting to move return earlier date.? We will maintain him in the hospital until guardianship is approved and we have a safety plan for discharge. Involuntary Hold Information 96 Hour Hold: 96 Hour Involuntary Admission: No Attestations NPU Medical Necessity Statement*: Inpatient hospitalization is medically necessary and the clinically appropriate intervention at this time.? We will initiate medications and make changes as indicated. We will discharge after safety plan and guardianship hearing. Coding Level of Care Code Acute Cooking Appliance Repair Technician for [facility] Fwd Diagnoses Suicidal ideation R45.851 Schizophrenia F20.9 Cluster B personality disorder F60.89 Opiate misuse F11.90 Hypotension I95.9 Psychosis F29
[2021-07-16] MEDS: trazodone 100 mg Tablet 200 MG PO (20:45)
[2021-07-16] MEDS: trazodone 50 mg Tablet PO (20:45)
[2021-07-16] MEDS: chlorPROMazine 50 mg Tablet 250 MG PO (20:45)
[2021-07-16] MEDS: zolpidem 5 mg Tablet 10 MG PO (20:46)
[2021-07-16 21:12] VITALS: BP 101/71; PULSE 88; RESP 18; TEMP 36.3; O2SAT 96
[2021-07-17 06:00] VITALS: BP 71/41; PULSE 73; RESP 16; TEMP 36.6; O2SAT 94
[2021-07-17] MEDS: buprenorphine-naloxone 4-1 mg Film 2 EACH SUBLINGUAL ×2 (06:18→17:14)
[2021-07-17] MEDS: chlorPROMazine 50 mg Tablet 100 MG PO (06:18)
[2021-07-17] MEDS: aspirin 81 mg EC Tablet PO (09:09)
[2021-07-17] MEDS: CLONazepam 0.5 mg Tablet PO ×2 (09:09→12:26)
[2021-07-17] MEDS: nicotine 2 mg Gum BUCCAL ×4 (09:09→19:44)
[2021-07-17] MEDS: pantoprazole DR 40 mg Tablet PO (09:10)
[2021-07-17] MEDS: carvedilol 6.25 mg Tablet 3.125 MG PO (09:14)
[2021-07-17 09:15] VITALS: BP 109/73
[2021-07-17] MEDS: losartan 50 mg Tablet 25 MG PO (09:15)
[2021-07-17] MEDS: hyDROXYzine 25 mg Capsule 50 MG PO ×2 (12:34→20:14)
--- NOTE | 2021-07-17 12:43 | P.NPUPN_ITS ---
Subjective NPU Subjective: Patient presents today continuing to be focused on the hearing next . He denies any new problems or any issues that need addressed. He endorsed doing well since the resumption of as needed Thorazine. Mental Status Exam MSE Comments: This is an overweight, versus obese, white male, in hospital scrubs, with adequate grooming, and eye contact. No abnormal movements except for mild psychomotor retardation. Cooperative with exam in no acute distress. Speech was normal rate and volume. Mood described as good; affect appeared congruent. Thought process, organized. Thought content: patient denied any suicidal or homicidal ideation.? There were no delusions reported or noted, he denied any auditory or visual hallucinations. Attention, concentration, and memory appeared intact but were not formally tested.? He was alert and oriented times three. Insight and judgment appeared fair, impulse control appeared fair in a locked facility.? Vitals/I&O/Wt Last Vital Signs Temp 97.8 F 07/17/21 06:00 Pulse 73 07/17/21 06:00 Resp 16 07/17/21 06:00 BP 109/73 07/17/21 09:15 Pulse Ox 94 07/17/21 06:00 Data NPU : 06/04/21 09:00 06/04/21 09:00 A&P Assessment and plan (1) Suicidal ideation: Status: Acute (2) Schizophrenia: Status: Chronic (3) Cluster B personality disorder: Status: Chronic (4) Opiate misuse: Status: Chronic (5) Abdominal pain: Status: Acute Qualifiers: Abdominal location: generalized Qualified Code(s): R10.84 - Generalized abdominal pain (6) Hypotension: Status: Acute (7) Chronic anticoagulation: Status: Chronic (8) Psychosis: Status: Chronic Plan This is a 36-year-old, white male, with long history of reports of psychosis, borderline personality disorder, addiction, and multiple suicide attempts, essentially every time that he has been discharged for the last year or two, who presents awaiting his guardianship hearing.? ? RECOMMENDATION AND PLAN: 1.Continue current medication.? Changed morning Thorazine from 200 to 100 mg.? Restarted the as needed Thorazine.? Protonix for stomach acid 2.Encourage sober living treatment after discharge, at the highest level of care, to which he is willing to commit. 3.Awaiting guardianship hearing.? Currently scheduled for July 23 but they are attempting to move return earlier date.? We will maintain him in the hospital until guardianship is approved and we have a safety plan for discharge. Involuntary Hold Information 96 Hour Hold: 96 Hour Involuntary Admission: No Attestations NPU Medical Necessity Statement*: Inpatient hospitalization is medically necessary and the clinically appropriate intervention at this time.? We will initiate medications and make changes as indicated.? We will discharge after safety plan and guardianship hearing. Coding Level of Care Code Acute Computer Hardware Technician for [facility] Fwd Diagnoses Suicidal ideation R45.851 Schizophrenia F20.9 Cluster B personality disorder F60.89 Opiate misuse F11.90 Abdominal pain R10.84 Abdominal location: generalized Hypotension I95.9 Chronic anticoagulation Z79.01 Psychosis F29
[2021-07-17 14:00] VITALS: BP 108/72; PULSE 78; RESP 15; O2SAT 97
[2021-07-17] MEDS: haloperidol 5 mg Tablet PO ×2 (15:44→21:29)
[2021-07-17] MEDS: lurasidone 80 mg Tablet PO (17:14)
[2021-07-17] MEDS: chlorPROMazine 50 mg Tablet 250 MG PO (20:13)
[2021-07-17] MEDS: docusate sodium 100 mg Capsule PO (20:14)
[2021-07-17] MEDS: trazodone 100 mg Tablet 200 MG PO (20:15)
[2021-07-17] MEDS: trazodone 50 mg Tablet PO (20:15)
[2021-07-17] MEDS: zolpidem 5 mg Tablet 10 MG PO (20:24)
[2021-07-17 20:44] VITALS: BP 96/67; PULSE 91; RESP 16; O2SAT 94
[2021-07-18 05:41] VITALS: BP 90/57; PULSE 67; RESP 16; O2SAT 93
[2021-07-18] MEDS: chlorPROMazine 50 mg Tablet 100 MG PO ×2 (06:08→13:54)
[2021-07-18] MEDS: buprenorphine-naloxone 4-1 mg Film 2 EACH SUBLINGUAL ×2 (06:09→18:23)
[2021-07-18] MEDS: pantoprazole DR 40 mg Tablet PO (09:11)
[2021-07-18] MEDS: apixaban 5 mg Tablet PO (09:11)
[2021-07-18] MEDS: nicotine 2 mg Gum BUCCAL ×5 (09:11→20:17)
[2021-07-18] MEDS: CLONazepam 0.5 mg Tablet PO ×2 (09:11→12:35)
[2021-07-18] MEDS: aspirin 81 mg EC Tablet PO (09:11)
[2021-07-18] MEDS: hyDROXYzine 25 mg Capsule 50 MG PO ×2 (09:41→20:17)
[2021-07-18 09:59] VITALS: BP 90/57
[2021-07-18 14:00] VITALS: BP 99/74; PULSE 96; RESP 15; TEMP 36.8; O2SAT 96
--- NOTE | 2021-07-18 15:08 | P.NPUPN_ITS ---
Subjective NPU Subjective: Patient presents today denying any significant challenges or new issues. He continues to stay in touch with his uncle and is counting down the days until the hearing next . He has been pleasant and without any clear issues. Mental Status Exam MSE Comments: This is an overweight, versus obese, white male, in hospital scrubs, with adequate grooming, and eye contact. No abnormal movements except for mild psychomotor retardation. Cooperative with exam in no acute distress. Speech was normal rate and volume. Mood described as pretty good; affect appeared congruent. Thought process, organized. Thought content: patient denied any suicidal or homicidal ideation.? There were no delusions reported or noted, he denied any auditory or visual hallucinations. Attention, concentration, and memory appeared intact but were not formally tested.? He was alert and oriented times three. Insight and judgment appeared fair, impulse control appeared fair in a locked facility.? Vitals/I&O/Wt Last Vital Signs Temp 97.8 F 07/17/21 06:00 Pulse 67 07/18/21 05:41 Resp 16 07/18/21 05:41 BP 90/57 07/18/21 09:59 Pulse Ox 93 07/18/21 05:41 Data NPU : 06/04/21 09:00 06/04/21 09:00 A&P Assessment and plan (1) Suicidal ideation: Status: Acute (2) Schizophrenia: Status: Chronic (3) Cluster B personality disorder: Status: Chronic (4) Abdominal pain: Status: Acute Qualifiers: Abdominal location: generalized Qualified Code(s): R10.84 - Generalized abdominal pain (5) Hypotension: Status: Acute (6) Chronic anticoagulation: Status: Chronic (7) Psychosis: Status: Chronic Plan This is a 36-year-old, white male, with long history of reports of psychosis, borderline personality disorder, addiction, and multiple suicide attempts, essentially every time that he has been discharged for the last year or two, who presents awaiting his guardianship hearing.? ? RECOMMENDATION AND PLAN: 1.Continue current medication.? Changed morning Thorazine from 200 to 100 mg.? Restarted the as needed Thorazine.? Protonix for stomach acid 2.Encourage sober living treatment after discharge, at the highest level of care, to which he is willing to commit. 3.Awaiting guardianship hearing.? Currently scheduled for July 23 but they are attempting to move return earlier date.? We will maintain him in the hospital until guardianship is approved and we have a safety plan for discharge. Involuntary Hold Information 96 Hour Hold: 96 Hour Involuntary Admission: No Attestations NPU Medical Necessity Statement*: Inpatient hospitalization is medically necessary and the clinically appropriate intervention at this time.? We will initiate medications and make changes as indicated.? We will discharge after safety plan and guardianship hearing. Coding Level of Care Code Acute Supervisor Leaf Spring Repair for g Fwd Diagnoses Suicidal ideation R45.851 Schizophrenia F20.9 Cluster B personality disorder F60.89 Abdominal pain R10.84 Abdominal location: generalized Hypotension I95.9 Chronic anticoagulation Z79.01 Psychosis F29
[2021-07-18] MEDS: haloperidol 5 mg Tablet PO ×2 (15:40→22:20)
[2021-07-18] MEDS: lurasidone 80 mg Tablet PO (16:41)
[2021-07-18] MEDS: docusate sodium 100 mg Capsule PO ×2 (18:59→22:11)
[2021-07-18] MEDS: trazodone 100 mg Tablet 200 MG PO (20:18)
[2021-07-18] MEDS: trazodone 50 mg Tablet PO (20:18)
[2021-07-18] MEDS: zolpidem 5 mg Tablet 10 MG PO (20:18)
[2021-07-18] MEDS: chlorPROMazine 50 mg Tablet 250 MG PO (20:18)
[2021-07-18 20:56] VITALS: BP 75/44; PULSE 83; RESP 17; TEMP 36.7; O2SAT 97
[2021-07-18 21:08] VITALS: BP 102/68
[2021-07-19 05:31] VITALS: BMI 32.8
[2021-07-19 06:00] VITALS: BP 88/53; PULSE 86; RESP 16; TEMP 36.6; O2SAT 94
[2021-07-19] MEDS: buprenorphine-naloxone 4-1 mg Film 2 EACH SUBLINGUAL ×2 (06:19→18:07)
[2021-07-19] MEDS: chlorPROMazine 25 mg Tablet 100 MG PO ×2 (06:19→14:13)
--- NOTE | 2021-07-19 07:51 | W.PM.NPUPNS ---
Subjective NPU Subjective: Patient presents today with no changes identified. He continues to prepare for and manage his expectations about the outcome. He continues to be pleasant and respectful on the unit. Medications: Medication Review Details: This is an overweight, versus obese, white male, in hospital scrubs, with adequate grooming, and eye contact. No abnormal movements except for mild psychomotor retardation. Cooperative with exam in no acute distress. Speech was normal rate and volume. Mood described as good; affect appeared congruent. Thought process, organized. Thought content: patient denied any suicidal or homicidal ideation.? There were no delusions reported or noted, he denied any auditory or visual hallucinations. Attention, concentration, and memory appeared intact but were not formally tested.? He was alert and oriented times three. Insight and judgment appeared fair, impulse control appeared fair in a locked facility.? Vitals/I&O/Wt Last Vital Signs Temp 97.8 F 07/19/21 06:00 Pulse 86 07/19/21 06:00 Resp 16 07/19/21 06:00 BP 88/53 07/19/21 06:00 Pulse Ox 94 07/19/21 06:00 Weight last 48 hrs Weight 106.776 kg Data NPU : 06/04/21 09:00 06/04/21 09:00 A&P Assessment and plan (1) Suicidal ideation: Status: Acute (2) Schizophrenia: Status: Chronic (3) Cluster B personality disorder: Status: Chronic (4) Opiate misuse: Status: Chronic (5) Hypotension: Status: Acute (6) Chronic anticoagulation: Status: Chronic (7) Psychosis: Status: Chronic Plan This is a 36-year-old, white male, with long history of reports of psychosis, borderline personality disorder, addiction, and multiple suicide attempts, essentially every time that he has been discharged for the last year or two, who presents awaiting his guardianship hearing.? ? RECOMMENDATION AND PLAN: 1.Continue current medication.? Changed morning Thorazine from 200 to 100 mg.? Restarted the as needed Thorazine.? Protonix for stomach acid 2.Encourage sober living treatment after discharge, at the highest level of care, to which he is willing to commit. 3.Awaiting guardianship hearing.? Currently scheduled for July 23 but they are attempting to move return earlier date.? We will maintain him in the hospital until guardianship is approved and we have a safety plan for discharge. Involuntary Hold Information 96 Hour Hold: 96 Hour Involuntary Admission: No Attestations NPU Medical Necessity Statement*: Inpatient hospitalization is medically necessary and the clinically appropriate intervention at this time.? We will initiate medications and make changes as indicated.? We will discharge after safety/discharge plan developed after guardianship hearing. Coding Level of Care Code Acute Retail Merchandiser Technician for [facility] Fwd Diagnoses Suicidal ideation R45.851 Schizophrenia F20.9 Cluster B personality disorder F60.89 Opiate misuse F11.90 Hypotension I95.9 Chronic anticoagulation Z79.01 Psychosis F29
[2021-07-19] MEDS: carvedilol 6.25 mg Tablet 3.125 MG PO ×2 (09:39→20:41)
[2021-07-19] MEDS: pantoprazole DR 40 mg Tablet PO (09:39)
[2021-07-19] MEDS: nicotine 2 mg Gum BUCCAL ×6 (09:39→20:55)
[2021-07-19 09:40] VITALS: BP 88/53
[2021-07-19] MEDS: aspirin 81 mg EC Tablet PO (09:40)
[2021-07-19] MEDS: losartan 50 mg Tablet 25 MG PO (09:40)
[2021-07-19] MEDS: CLONazepam 0.5 mg Tablet PO ×2 (09:40→12:19)
[2021-07-19] MEDS: hyDROXYzine 25 mg Capsule 50 MG PO ×2 (13:05→20:41)
[2021-07-19 13:31] VITALS: BP 102/69; PULSE 94; RESP 17; TEMP 36.7; O2SAT 98
[2021-07-19] MEDS: lurasidone 80 mg Tablet PO (16:55)
[2021-07-19 20:02] VITALS: BP 95/60; PULSE 78; RESP 15; TEMP 36.4; O2SAT 94
[2021-07-19] MEDS: dicyclomine 10 mg Capsule PO (20:41)
[2021-07-19] MEDS: zolpidem 5 mg Tablet 10 MG PO (20:41)
[2021-07-19] MEDS: trazodone 100 mg Tablet 200 MG PO (20:41)
[2021-07-19] MEDS: trazodone 50 mg Tablet PO ×2 (20:41→20:43)
[2021-07-19] MEDS: chlorPROMazine 50 mg Tablet 250 MG PO (21:41)
[2021-07-19] MEDS: docusate sodium 100 mg Capsule PO (21:47)
[2021-07-20 06:00] VITALS: BP 89/53; PULSE 67; RESP 15; TEMP 36.6; O2SAT 95
[2021-07-20] MEDS: buprenorphine-naloxone 4-1 mg Film 2 EACH SUBLINGUAL ×2 (06:36→17:04)
[2021-07-20] MEDS: chlorPROMazine 50 mg Tablet 100 MG PO ×2 (06:36→14:34)
[2021-07-20 10:25] VITALS: BP 98/71
[2021-07-20] MEDS: losartan 50 mg Tablet 25 MG PO (10:25)
[2021-07-20] MEDS: apixaban 5 mg Tablet PO (10:27)
[2021-07-20] MEDS: carvedilol 6.25 mg Tablet 3.125 MG PO ×2 (10:27→19:54)
[2021-07-20] MEDS: pantoprazole DR 40 mg Tablet PO (10:27)
[2021-07-20] MEDS: CLONazepam 0.5 mg Tablet PO ×2 (10:27→13:37)
[2021-07-20] MEDS: aspirin 81 mg EC Tablet PO (10:27)
[2021-07-20] MEDS: hyDROXYzine 25 mg Capsule 50 MG PO ×2 (10:32→19:55)
[2021-07-20] MEDS: nicotine 2 mg Gum BUCCAL ×4 (10:32→19:58)
[2021-07-20 14:00] VITALS: BP 84/62; PULSE 64; RESP 17; TEMP 36.7; O2SAT 94
--- NOTE | 2021-07-20 14:32 | P.NPUPN_ITS ---
Subjective NPU Subjective: Patient presents today reporting that that is benign. He did inquire about what the program/facility could be like once his guardianship is decided upon but otherwise he continues to just await the guardianship hearing and hope for favorable response. He denies any issues with eating or sleeping. Medications: Medication Review Details: This is an overweight, versus obese, white male, in hospital scrubs, with stephenie quate grooming, and eye contact. No abnormal movements except for mild psychomotor retardation. Cooperative with exam in no acute distress. Speech was normal rate and volume. Mood described as pretty good just anxious waiting affect appeared congruent. Thought process, organized. Thought content: patient denied any suicidal or homicidal ideation.? There were no delusions reported or noted, he denied any auditory or visual hallucinations. Attention, concentration, and memory appeared intact but were not formally tested.? He was alert and oriented times three. Insight and judgment appeared fair, impulse control appeared fair in a locked facility.? Vitals/I&O/Wt Last Vital Signs Temp 98.0 F 07/20/21 14:00 Pulse 64 07/20/21 14:00 Resp 17 07/20/21 14:00 BP 84/62 07/20/21 14:00 Pulse Ox 94 07/20/21 14:00 Weight last 48 hrs Weight 106.776 kg Data NPU : 06/04/21 09:00 06/04/21 09:00 A&P Assessment and plan (1) Suicidal ideation: Status: Acute (2) Schizophrenia: Status: Chronic (3) Cluster B personality disorder: Status: Chronic (4) Opiate misuse: Status: Chronic (5) Hypotension: Status: Acute (6) Chronic anticoagulation: Status: Chronic (7) Psychosis: Status: Chronic Plan This is a 36-year-old, white male, with long history of reports of psychosis, borderline personality disorder, addiction, and multiple suicide attempts, essentially every time that he has been discharged for the last year or two, who presents awaiting his guardianship hearing.? ? RECOMMENDATION AND PLAN: 1.Continue current medication.? Changed morning Thorazine from 200 to 100 mg.? Restarted the as needed Thorazine.? Protonix for stomach acid 2.Encourage sober living treatment after discharge, at the highest level of care, to which he is willing to commit. 3.Awaiting guardianship hearing.? Currently scheduled for July 23 but they are attempting to move return earlier date.? We will maintain him in the hospital until guardianship is approved and we have a safety plan for discharge. Involuntary Hold Information 96 Hour Hold: 96 Hour Involuntary Admission: No Attestations NPU Medical Necessity Statement*: Inpatient hospitalization is medically necessary and the clinically appropriate intervention at this time.? We will initiate medications and make changes as indicated.? We will discharge after safety/discharge plan developed after guardianship hearing. Coding Level of Care Code Acute Marketing Area Manager for [facility] Fwd Diagnoses Suicidal ideation R45.851 Schizophrenia F20.9 Cluster B personality disorder F60.89 Opiate misuse F11.90 Hypotension I95.9 Chronic anticoagulation Z79.01 Psychosis F29
[2021-07-20] MEDS: lurasidone 80 mg Tablet PO (17:03)
[2021-07-20 19:43] VITALS: BP 85/55; PULSE 61; RESP 18; TEMP 36.8; O2SAT 93
[2021-07-20] MEDS: chlorPROMazine 50 mg Tablet 250 MG PO (19:53)
[2021-07-20] MEDS: trazodone 150 mg Tablet 300 MG PO (19:55)
[2021-07-20] MEDS: zolpidem 5 mg Tablet 10 MG PO (19:55)
[2021-07-20 19:58] VITALS: BP 95/61
[2021-07-20] MEDS: haloperidol 5 mg Tablet PO (21:15)
--- NOTE | 2021-07-20 22:12 | PC.NURSE ---
[facility] PT CAME TO NURSES STATION REQUESTED HALDOL FOR HALLUCINATIONS. HALDOL PO WAS GIVEN.
[2021-07-21] MEDS: chlorPROMazine 50 mg Tablet 100 MG PO ×2 (05:57→17:35)
[2021-07-21 06:00] VITALS: BP 85/51; PULSE 64; RESP 18; TEMP 36.6; O2SAT 90
[2021-07-21] MEDS: buprenorphine-naloxone 4-1 mg Film 2 EACH SUBLINGUAL ×2 (06:00→18:00)
[2021-07-21] MEDS: alum-mag-hydroxide-sime 30 mL UDC PO (06:29)
[2021-07-21] MEDS: CLONazepam 0.5 mg Tablet PO ×2 (10:55→12:02)
[2021-07-21] MEDS: apixaban 5 mg Tablet PO (10:55)
[2021-07-21] MEDS: losartan 50 mg Tablet 25 MG PO (10:55)
[2021-07-21] MEDS: aspirin 81 mg EC Tablet PO (10:56)
[2021-07-21] MEDS: carvedilol 6.25 mg Tablet 3.125 MG PO ×2 (10:56→20:14)
[2021-07-21] MEDS: pantoprazole DR 40 mg Tablet PO (10:56)
[2021-07-21] MEDS: nicotine 2 mg Gum BUCCAL ×4 (10:56→20:17)
[2021-07-21] MEDS: hyDROXYzine 25 mg Capsule 50 MG PO ×2 (11:21→20:14)
--- NOTE | 2021-07-21 12:43 | P.NPUPN_ITS ---
Subjective NPU Subjective: Patient presents today reporting that things are okay. His most significant concern is that any hearing for guardianship might occur and he not be there to hear what is said. We agreed that I would make it a top priority tomorrow to find out the exact specifics about how he would get to the hearing otherwise he denies any major concerns otherwise and is looking forward to the hearing. Mental Status Exam MSE Comments: This is an overweight, versus obese, white male, in hospital scrubs, with adequate grooming, and eye contact. No abnormal movements except for mild psychomotor retardation. Cooperative with exam in no acute distress. Speech was normal rate and volume. Mood described as anxious about going to the hearing; affect appeared congruent. Thought process, organized. Thought content: patient denied any suicidal or homicidal ideation.? There were no delusions reported or noted, he denied any auditory or visual hallucinations. Attention, concentration, and memory appeared intact but were not formally tested.? He was alert and oriented times three. Insight and judgment appeared fair, impulse control appeared fair in a locked facility.? Vitals/I&O/Wt Last Vital Signs Temp 98 F 07/21/21 06:00 Pulse 64 07/21/21 06:00 Resp 18 07/21/21 06:00 BP 85/51 07/21/21 06:00 Pulse Ox 90 07/21/21 06:00 Data NPU : 06/04/21 09:00 06/04/21 09:00 A&P Assessment and plan (1) Suicidal ideation: Status: Acute (2) Schizophrenia: Status: Chronic (3) Cluster B personality disorder: Status: Chronic (4) Opiate misuse: Status: Chronic (5) Hypotension: Status: Acute (6) Chronic anticoagulation: Status: Chronic (7) Psychosis: Status: Chronic Plan This is a 36-year-old, white male, with long history of reports of psychosis, borderline personality disorder, addiction, and multiple suicide attempts, essentially every time that he has been discharged for the last year or two, who presents awaiting his guardianship hearing.? ? RECOMMENDATION AND PLAN: 1.Continue current medication.? Changed morning Thorazine from 200 to 100 mg.? Restarted the as needed Thorazine.? Protonix for stomach acid 2.Encourage sober living treatment after discharge, at the highest level of care, to which he is willing to commit. 3.Awaiting guardianship hearing.? Currently scheduled for July 23, but he is somewhat anxious about making sure he is being taken there to be present. Involuntary Hold Information 96 Hour Hold: 96 Hour Involuntary Admission: No Attestations NPU Medical Necessity Statement*: Inpatient hospitalization is medically necessary and the clinically appropriate intervention at this time.? We will initiate medications and make changes as indicated.? We will discharge after safety/discharge plan developed after guardianship hearing. Coding Level of Care Code Acute Retail Customer Service Specialist for [facility] Fwd Diagnoses Suicidal ideation R45.851 Schizophrenia F20.9 Cluster B personality disorder F60.89 Opiate misuse F11.90 Hypotension I95.9 Chronic anticoagulation Z79.01 Psychosis F29
[2021-07-21 14:00] VITALS: BP 100/59; PULSE 60; RESP 16; TEMP 36.4; O2SAT 95
[2021-07-21] MEDS: haloperidol 5 mg Tablet PO ×2 (15:09→22:18)
[2021-07-21] MEDS: lurasidone 80 mg Tablet PO (16:39)
[2021-07-21] MEDS: dicyclomine 10 mg Capsule PO (20:14)
[2021-07-21] MEDS: chlorPROMazine 50 mg Tablet 250 MG PO (20:14)
[2021-07-21] MEDS: trazodone 150 mg Tablet 300 MG PO (20:14)
[2021-07-21] MEDS: zolpidem 5 mg Tablet 10 MG PO (20:14)
[2021-07-21 20:16] VITALS: BP 104/67; PULSE 80; RESP 20; TEMP 37; O2SAT 94
[2021-07-22 06:00] VITALS: BP 89/56; PULSE 75; RESP 18; TEMP 36.6; O2SAT 92
[2021-07-22] MEDS: chlorPROMazine 50 mg Tablet 100 MG PO ×2 (06:12→18:29)
[2021-07-22] MEDS: buprenorphine-naloxone 4-1 mg Film 2 EACH SUBLINGUAL ×2 (06:13→17:17)
[2021-07-22] MEDS: calcium carbonate 500 mg Chew Tablet 1000 MG PO (06:42)
[2021-07-22] MEDS: carvedilol 6.25 mg Tablet 3.125 MG PO ×2 (08:47→20:47)
[2021-07-22] MEDS: nicotine 2 mg Gum BUCCAL ×4 (08:47→20:48)
[2021-07-22] MEDS: alum-mag-hydroxide-sime 30 mL UDC PO (08:47)
[2021-07-22] MEDS: aspirin 81 mg EC Tablet PO (08:47)
[2021-07-22] MEDS: hyDROXYzine 25 mg Capsule 50 MG PO ×2 (08:48→20:47)
[2021-07-22] MEDS: losartan 50 mg Tablet 25 MG PO (08:48)
[2021-07-22] MEDS: pantoprazole DR 40 mg Tablet PO (08:48)
[2021-07-22] MEDS: apixaban 5 mg Tablet PO (08:48)
[2021-07-22] MEDS: CLONazepam 0.5 mg Tablet PO ×2 (08:48→12:20)
--- NOTE | 2021-07-22 13:45 | P.NPUPN_ITS ---
Subjective NPU Subjective: Patient presents today reporting that he is anxious about tomorrow specifically concerns for being able to get to his hearing. We discussed the fact that we had significant entities at work trying to assist him making sure [facility] was going to transport him to his 1 PM meeting tomorrow. Otherwise he denied any concerns and only anxiety about his court date finally being here. Mental Status Exam MSE Comments: This is an overweight, versus obese, white male, in hospital scrubs, with adequate grooming, and eye contact. No abnormal movements except for mild psychomotor retardation. Cooperative with exam in no acute distress. Speech was normal rate and volume. Mood described as anxious about going to the hearing; affect appeared congruent. Thought process, organized. Thought content: patient denied any suicidal or homicidal ideation.? There were no delusions reported or noted, he denied any auditory or visual hallucinations. Attention, concentration, and memory appeared intact but were not formally tested.? He was alert and oriented times three. Insight and judgment appeared fair, impulse control appeared fair in a locked facility.? Vitals/I&O/Wt Last Vital Signs Temp 98 F 07/22/21 06:00 Pulse 75 07/22/21 06:00 Resp 18 07/22/21 06:00 BP 89/56 07/22/21 06:00 Pulse Ox 92 07/22/21 06:00 Data NPU : 06/04/21 09:00 06/04/21 09:00 A&P Assessment and plan (1) Suicidal ideation: Status: Acute (2) Schizophrenia: Status: Chronic (3) Cluster B personality disorder: Status: Chronic (4) Opiate misuse: Status: Chronic (5) Chronic anticoagulation: Status: Chronic (6) Psychosis: Status: Chronic (7) Hypotension: Status: Acute Plan This is a 36-year-old, white male, with long history of reports of psychosis, borderline personality disorder, addiction, and multiple suicide attempts, es sentially every time that he has been discharged for the last year or two, who presents awaiting his guardianship hearing.? ? RECOMMENDATION AND PLAN: 1.Continue current medication.? Changed morning Thorazine from 200 to 100 mg.? Restarted the as needed Thorazine.? Protonix for stomach acid 2.Encourage sober living treatment after discharge, at the highest level of care, to which he is willing to commit. 3.Awaiting guardianship hearing.? Currently scheduled for [place] 28, but he is somewhat anxious about making sure he is being taken there to be present. Involuntary Hold Information 96 Hour Hold: 96 Hour Involuntary Admission: No Attestations NPU Medical Necessity Statement*: Inpatient hospitalization is medically necessary and the clinically appropriate intervention at this time.? We will initiate medications and make changes as indicated.? We will discharge after safety/discharge plan developed after guardianship hearing. Coding Level of Care Code Acute Stitch Bonder Machine Operator Helper for [facility] Fwd Diagnoses Suicidal ideation R45.851 Schizophrenia F20.9 Cluster B personality disorder F60.89 Opiate misuse F11.90 Chronic anticoagulation Z79.01 Psychosis F29 Hypotension I95.9
[2021-07-22 14:00] VITALS: BP 101/55; PULSE 66; RESP 16; TEMP 36.6; O2SAT 96
[2021-07-22] MEDS: lurasidone 80 mg Tablet PO (17:17)
--- NOTE | 2021-07-22 18:46 | PC.NURSE ---
PT UP AT 1830 WITH C/O ANXIETY SURROUNDING COURT TOMORROW. REQUESTED ADN RECEIVED PTN [employer] AT THAT TIME. RETURNED TO BED AFTER AND IS RESTING.
[2021-07-22] MEDS: chlorPROMazine 50 mg Tablet 250 MG PO (20:46)
[2021-07-22] MEDS: trazodone 150 mg Tablet 300 MG PO (20:47)
[2021-07-22] MEDS: zolpidem 5 mg Tablet 10 MG PO (20:47)
[2021-07-22 21:11] VITALS: BP 110/75; PULSE 86; RESP 18; TEMP 36.6; O2SAT 95
[2021-07-22] MEDS: haloperidol 5 mg Tablet PO (22:03)
[2021-07-23 06:00] VITALS: BP 91/57; PULSE 75; RESP 16; TEMP 36.4; O2SAT 93
[2021-07-23] MEDS: buprenorphine-naloxone 4-1 mg Film 2 EACH SUBLINGUAL ×2 (06:33→18:12)
[2021-07-23] MEDS: chlorPROMazine 50 mg Tablet 100 MG PO ×2 (06:33→14:57)
[2021-07-23] MEDS: nicotine 2 mg Gum BUCCAL ×6 (06:33→20:08)
[2021-07-23] MEDS: hyDROXYzine 25 mg Capsule 50 MG PO ×2 (08:52→20:07)
[2021-07-23] MEDS: aspirin 81 mg EC Tablet PO (08:52)
[2021-07-23] MEDS: losartan 50 mg Tablet 25 MG PO (08:52)
[2021-07-23] MEDS: pantoprazole DR 40 mg Tablet PO (08:52)
[2021-07-23] MEDS: CLONazepam 0.5 mg Tablet PO ×2 (08:53→12:02)
[2021-07-23] MEDS: carvedilol 6.25 mg Tablet 3.125 MG PO (08:53)
[2021-07-23] MEDS: lurasidone 80 mg Tablet PO (16:01)
--- NOTE | 2021-07-23 17:39 | DCPLANNER ---
Copy of IMM was given to pt and explained and copy put in chart.
--- NOTE | 2021-07-23 17:44 | W.PM.NPUPNS ---
Subjective NPU Subjective: Patient presents today excited about his hearing. He went to the hearing via virtual connection and was given a guardian which was the healthcare administrator but also his uncle is coguardian. Result of that was that his guardianship team requested that he be discharged. We had discussed our concern that his uncle had been a witness and support during the time of although suicide attempts but the hospital's position was not supported by the human resources compensation analyst. He had been on Suboxone but did not have an outside provider making a unplanned discharge challenging. They agree to allow him to stay as we were able to get him an arrangement ultimately for outside provider on an urgent notice is that he will need to get to an appointment in [place] by 3 PM tomorrow. He reported that he is going to be safe and is excited about discharge tomorrow. Mental Status Exam MSE Comments: This is an overweight, versus obese, white male, in hospital scrubs, with adequate grooming, and eye contact. No abnormal movements except for mild psychomotor retardation. Cooperative with exam in no acute distress. Speech was normal rate and volume. Mood described as happy; affect congruent. Thought process, organized. Thought content: patient denied any suicidal or homicidal ideation.? There were no delusions reported or noted, he denied any auditory or visual hallucinations. Attention, concentration, and memory appeared intact but were not formally tested.? He was alert and oriented times three. Insight and judgment appeared fair, impulse control appeared fair in a locked facility.? Vitals/I&O/Wt Last Vital Signs Temp 99.1 F 07/23/21 21:22 Pulse 106 H 07/23/21 21:22 Resp 16 07/23/21 21:22 BP 94/68 07/23/21 21:22 Pulse Ox 99 07/23/21 21:22 Data NPU : 06/04/21 09:00 06/04/21 09:00 A&P Assessment and plan (1) Suicidal ideation: Status: Acute (2) Schizophrenia: Status: Chronic (3) Cluster B personality disorder: Status: Chronic (4) Opiate misuse: Status: Chronic (5) Hypotension: Status: Acute (6) Chronic anticoagulation: Status: Chronic (7) Psychosis: Status: Chronic Plan This is a 36-year-old, white male, with long history of reports of psychosis, borderline personality disorder, addiction, and multiple suicide attempts, essentially every time that he has been discharged for the last year or two, who presents awaiting his guardianship hearing.? ? RECOMMENDATION AND PLAN: 1.Continue current medication.? Changed morning Thorazine from 200 to 100 mg.? Restarted the as needed Thorazine.? Protonix for stomach acid 2.Encourage sober living treatment after discharge, at the highest level of care, to which he is willing to commit. 3.patient had guardianship hearing and he was given a guardian there was a public healthcare administrator at [facility] of his uncle which creates great concern because there were multiple times we encouraged the uncle to be in charge of the medication prior to suicide attempts. We will obviously honor the courts position. However a return in an additional suicidal gesture we will leave the hospital no choice but to go for admission to a locked facility level 2. We were unable to the desire to be discharged secondary to him not having a outpatient Suboxone provider. We were able to identify 1 at the last minute with his most recent provider at 3 PM in [place]. Given he has a 730 appointment at [facility], gurinder and Shayan were in agreement that discharge at 7 in the morning with plans to get to both of those appointments and be able get his medication from our pharmacy made the most sense. Involuntary Hold Information 96 Hour Hold: 96 Hour Involuntary Admission: No Attestations U Medical Necessity Statement*: Inpatient hospitalization is medically necessary and the clinically appropriate intervention at this time.? We will initiate medications and make changes as indicated.? Guardianship awarded, plan to discharge the guardian in the morning. 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
--- NOTE | 2021-07-23 17:49 | PC.NURSE ---
PT HAD [facility]ARD[address] [facility] TODAY. GUARDIANSHIP WAS ESTABLISHED AND PLANNING BEGAN FOR DISCHARGE, MEDICATIONS AND FOLLOW UP APPOINTMENTS. [facility] APPOINTMENT SCHEDULED FOR 0730 TOMORROW MORNING, MEDICATIONS ARE TO BE PICKED UP FROM PHARMACY AFTER APPOINTMENT AND THEN [facility] APPOINTMENT IS SET FOR [facility], PT TO BE THERE BEFORE 1500. UNCLE CALLED AND ADVISED OF THIS PLAN AND ASKED ABOUT PT DIRECTOR OF CONTRACTS AND TRANSPORTATION. VOICED PREFFERED PLAN TO DIRECTOR OF CONTRACTS PT AT 0700 TO GO DIRECTLY TO [facility] APPOINTMENT. VERBALIZED THAT HE WOULD BE ABLE TO DIRECTOR OF CONTRACTS PT, DIRECTOR OF CONTRACTS MEDICATIONS AND GET PT TO [facility] APPOINTMENT. PT AND DR IN AGREEANCE WITH THIS PLAN. PT IS TO DISCHARGE AT 0700 TOMORROW MORNING.
[2021-07-23] MEDS: trazodone 150 mg Tablet 300 MG PO (20:06)
[2021-07-23] MEDS: chlorPROMazine 50 mg Tablet 250 MG PO (20:07)
[2021-07-23] MEDS: zolpidem 5 mg Tablet 10 MG PO (20:08)
[2021-07-23] MEDS: haloperidol 5 mg Tablet PO (20:58)
[2021-07-23 21:22] VITALS: BP 94/68; PULSE 106; RESP 16; TEMP 37.3; O2SAT 99
[2021-07-23] MEDS: diphenhydrAMINE 50 mg Capsule PO (22:37)
[2021-07-24] MEDS: alum-mag-hydroxide-sime 30 mL UDC PO (05:21)
--- NOTE | 2021-07-24 05:56 | P.NPUDS_ITS ---
Diagnoses at Discharge Discharge Diagnosis (1) Suicidal ideation: Status: Resolved (2) Schizophrenia: Status: Chronic (3) Cluster B personality disorder: Status: Chronic (4) Opiate misuse: Status: Chronic (5) Hypotension: Status: Acute (6) Chronic anticoagulation: Status: Chronic Permanent problem details: eliquis (7) Psychosis: Status: Chronic Reason for Visit Reason for Visit: SI took like 60 Benadryl Brief History: History of Present Illness Shayan Dickson is a 36 year old male who is seen in the emergency department with the following report: Patient is a 36-year-old male comes to the ED with SI. Past medical history of schizophrenia, cluster B personality disorder. he took approximately 60 25 mg Benadryl tablets at 3 AM this morning to try and kill himself. History of past suicide attempts. States he has been having some worsening depression and thoughts of SI past couple weeks. He says he hears voices in his head telling him to kill himself. He admits to hearing voices in his head for a while now. He says the medications he has been on in the past have not helped the voices. Patient says he is tired of being alive. He recently stopped taking Latuda due to cost. He endorses having poor sleep. Denies any HI. Here in the ED says he feels a little anxious and his mouth feels really dry. Endorses some blurry vision. Denies any nausea or vomiting. Associated symptoms: Reports auditory hallucinations, depression and suicidal ideation; Deny homicidal ideation He was admitted to the neuropsychiatry unit for definitive treatment of these issues. He says that he did well for about 1 week after he left the hospital last time. Both his appointment for outpatient treatment as well as the hearing for his guardianship were delayed because of weather and he could not reschedule them. He ran out of Latuda and the voices became much worse and he became depressed and suicidal. He said that the insurance would not pay for the Latuda because it was written for 40 mg instead of 80 mg. He also could not get refills on the Suboxone and has been taking half a dose but then ran out of it 10 days ago. He has been admitted multiple times for suicide attempts some significantly more serious. Below is his most recent discharge summary. Diagnoses at Discharge Discharge Diagnosis (1) Heel sore: Status: Acute (2) Hypotension: Status: Acute (3) Chronic anticoagulation: Status: Chronic Permanent problem details: eliquis (4) Pulmonary embolism: Status: Chronic Qualifiers: Pulmonary embolism type: other Chronicity: chronic Acute cor pulmonale presence: without acute cor pulmonale Qualified Code(s): I27.82 - Chronic pulmonary embolism (5) Intentional drug overdose: Status: Acute (6) Schizophrenia: Status: Chronic Qualifiers: Schizophrenia type: unspecified Qualified Code(s): F20.9 - Schizophrenia, unspecified (7) Opiate misuse: Status: Chronic (8) Suicide attempt by drug overdose: Status: Acute (9) Psychosis: Status: Chronic (10) Cluster B personality disorder: Status: Chronic (11) Bipolar depression: Status: Chronic Reason for Visit Reason for Visit: SI Brief History: History of Present Illness Shayan Dickson is a 36 year old male who was admitted to our emergency department with the following report: Chief Complaint: Psychiatric Symptoms Stated Complaint: SI Time Seen by Provider: 04/16/21 15:13 Source: patient Mode of arrival: ambulatory Limitations: no limitations History of Present Illness: HPI Narrative: 36-year-old male presents to the ER after intentionally overdosing on multiple medications 2 hours prior to arrival.Approximate amounts below: Eliquis 5 mg, #30 Thorazine 50 mg, #60 Carvedilol 3.125mg #40 Lunesta 1 mg #20 Vistaril 25 mg #100 Clonazepam 0.5 mg #40 Denies coingestion of alcohol or other drugs. This is not the first time he has attempted suicide by overdose. MD complaint: suicidal ideation and feels depressed Associated symptoms: Reports auditory hallucinations, visual hallucinations, de pression and suicidal ideation He was in the ICU for several days requiring pressor agents to keep his blood pressure up after the overdose. Was transferred to psychiatry today for definitive treatment of these issues. He has not required any medications for his blood pressure recently. He said that he was doing great up until about 1 week prior to admission. He had not been able to get into a doctor for Suboxone and since his discharge in late January he has only taken half dose of the Suboxone. He had an appointment with a psychiatrist but his uncle had Lasix surgery and he missed that appointment. He was told that he should have called and canceled the appointment and it might not have been counted against him as it is if he misses an appointment. He has an appointment at a pain clinic in approximately 1 month and is hopeful that they will continue his Suboxone. He feels like the Latuda 40 mg was working very well. He said that it has really helped his mood. Unfortunately about 1 week ago he started hearing the voices again. They gotten worse and worse and started causing anxiety. They were telling him he should kill himself. He is started just laying in bed becoming more and more depressed. He took his whole bottle of Thorazine and it did make the voices go away but he thought that they would come back so he took all the other medications listed in order to try to kill himself. He still wishes he had been successful. He acknowledges that medication adjustments very well could be successful in making the voices go away. They are very quiet now, probably because of all the Thorazine that she took. He would like to increase his Thorazine to 250 or 300 mg. We need to take it slow because he has not needed medications to support his blood pressure recently. Hospital Course Hospital Course He slowly acclimated to the individual, group and milieu therapies provided. Thorazine was increased to 250 mg at bedtime and Latuda was increased to 80 mg daily he was continued on his outpatient medications. Be hospital follow-up for guardianship and his guardianship hearing is about 1 week from discharge. He tolerated these doses and showed steady improvement during his stay. He was able to contract for safety outside hospital prior to discharge. During the hospitalization, patient had routine laboratory studies which were within normal limits except for few outliers. Additionally there was a general medical evaluation which was also within normal limits and revealed no new acute processes. Discharge Summary: At the time of discharge, lethality was denied and psychosis was resolving. Mood and anxiety were well managed. Patient endorsed a plan to follow-up with the aftercare recommendations of the treatment team. Patient was evaluated and deemed to be absent credible lethality, and had achieved the maximum benefit from an inpatient hospitalization, so was discharged. Hospital Course Hospital Course He was treated, group and milieu therapy provided. Latuda was increased and as needed Thorazine was introduced and titrated to effect. This was a very complicated situation as he had been in the hospital many many times with overdose attempts, though this time it was more diffuse that he has not overdosed initiated but reportedly secondary to inability to get Latuda. Guardianship was initiated given multiple times we did not and were back at his place again. It took a considerable amount of time to get his guardianship hearing and against our recommendation that she was in part awarded to his uncle who was present in a family support role for all the suicide attempts. The court decided that he could discharge home to his co-guardian his uncle who is reportedly going to control his medications which had been requested multiple times before during hospitalizations even just prior to suicide attempts. Ultimately he had marked improvement and was chuckie for safety outside the hospital prior to discharge. During the hospitalization, patient had routine laboratory studies which were within normal limits except for few outliers. Additionally there was a general medical evaluation which was also within normal limits and revealed no new acute processes. Discharge Summary: At the time of discharge, he denied psychosis or lethality. Mood and anxiety were well managed. Patient endorsed a plan to avoid all drugs of abuse and follow-up with the aftercare recommendations of the treatment team. Patient was evaluated and deemed to be absent credible lethality, and had achieved the maximum benefit from an inpatient hospitalization, so was discharged. Involuntary Hold Information 96 Hour Hold: 96 Hour Involuntary Admission: No Mental Status Exam MSE Comments: This is an overweight, versus obese, white male, in hospital scrubs, with adequate grooming, and eye contact. No abnormal movements except for mild psychomotor retardation. Cooperative with exam in no acute distress. Speech was normal rate and volume. Mood described as happy/glad to go; affect congruent. Thought process, organized. Thought content: patient denied any suicidal or homicidal ideation.? There were no delusions reported or noted, he denied any auditory or visual hallucinations. Attention, concentration, and memory appeared intact but were not formally tested.? He was alert and oriented times three. Insight and judgment appeared fair, impulse control appeared fair in a locked facility.? Discharge Data Studies Completed and Pending: Laboratory Results WBC 7.4 10^3/uL (4.0- 10.0) 06/04/21 09:00 RBC 5.41 10^6/uL (4.1 -5.3) H 06/04/21 09:00 Hgb 14.9 g/dL (11.7-1 6.6) 06/04/21 09:00 Hct 45.8 % (42.0-52.0 ) 06/04/21 09:00 MCV 84.7 fl (80-94) 06/04/21 09:00 MCH 27.5 pg (28.0-34. 0) L 06/04/21 09:00 MCHC 32.5 g/dL (30.0-3 6.0) 06/04/21 09:00 RDW 12.9 % (12.1-15.1 ) 06/04/21 09:00 Plt Count 259 10^3/cmm (130 -400) 06/04/21 09:00 MPV 9.5 fL (7.4-10.4) 06/04/21 09:00 Neut % (Auto) 66.5 % 06/04/21 09:00 Lymph % (Auto) 25.1 % 06/04/21 09:00 [place] % (Auto) 6.2 % 06/04/21 09:00 Eos % (Auto) 1.6 % 06/04/21 09:00 Baso % (Auto) 0.3 % 06/04/21 09:00 Neut # (Auto) 4.90 10^3/uL (1.8 -7.7) 06/04/21 09:00 Lymph # (Auto) 1.9 10^3/uL (0.8- 4.8) 06/04/21 09:00 [place] # (Auto) 0.5 10^3/uL (0.2- 0.9) 06/04/21 09:00 Eos # (Auto) 0.1 10^3/uL (0.0- 0.8) 06/04/21 09:00 Baso # (Auto) 0.0 10^3/uL (0.0- 0.1) 06/04/21 09:00 Nucleated RBC % (a uto) 0 % 06/04/21 09:00 Nucleated RBCs # 0.0 /100WBC 06/04/21 09:00 Sodium 140 mmol/L (136-1 45) 06/04/21 09:00 Potassium 4.2 mmol/L (3.5-5 .1) 06/04/21 09:00 Chloride 107 mmol/L (98-10 7) 06/04/21 09:00 Carbon Dioxide 20 mmol/L (22-29) L 06/04/21 09:00 Anion Gap 17.2 (5-19) 06/04/21 09:00 BUN 11 mg/dL (6-20) 06/04/21 09:00 Creatinine 0.9 mg/dL (0.7-1. 2) 06/04/21 09:00 GFR Calculation 95.0 mL/min (90-1 30) 06/04/21 09:00 Glucose 117 mg/dL (65-115 ) H 06/04/21 09:00 Calculated Osmolal ity 290 mOsm/kg (285- 295) 06/04/21 09:00 Calcium 9.7 mg/dL (8.5-10 .5) 06/04/21 09:00 Magnesium 1.9 mg/dL (1.7-2. 3) 06/03/21 11:30 Total Bilirubin 0.4 mg/dL (0.15-1 .2) 06/04/21 09:00 AST 13 U/L (0-40) 06/04/21 09:00 ALT 7 U/L (0-41) 06/04/21 09:00 Alkaline Phosphata se 77 IU/L (40-130) 06/04/21 09:00 Total Protein 7.3 g/dL (6.6-8.7 ) 06/04/21 09:00 Albumin 4.9 g/dL (3.5-5.2 ) 06/04/21 09:00 Globulin 2.4 g/dL (1.3-4.6 ) 06/04/21 09:00 Urine Color Yellow (Yellow) 06/03/21 10:46 Urine Appearance Clear (CLEAR) 06/03/21 10:46 Urine pH 5 (5-7) 06/03/21 10:46 Ur Specific Gravit y 1.025 (1.005-1.0 30) 06/03/21 10:46 Urine Protein 1+ (Negative) H 06/03/21 10:46 Urine Glucose (UA) Norm (Normal) 06/03/21 10:46 Urine Ketones 1+ (Negative) H 06/03/21 10:46 Urine Blood Neg (Negative) 06/03/21 10:46 Urine Nitrate Negative (Negati ve) 06/03/21 10:46 Urine Bilirubin 1+ (Negative) H 06/03/21 10:46 Urine Urobilinogen 4 mg/dL (Negative ) H 06/03/21 10:46 Ur Leukocyte Riya ase 1+ (Negative) H 06/03/21 10:46 Urine RBC None /hpf (0-2) 06/03/21 10:46 Urine WBC 0-4 /hpf (0-5) H 06/03/21 10:46 Ur Squamous Epith Cells 0-4 /hpf (0-5) H 06/03/21 10:46 Amorphous Sediment Not Reportable 06/03/21 10:46 Urine Bacteria 1+ /hpf (NONE) H 06/03/21 10:46 Urine Mucus Trace /hpf 06/03/21 10:46 Salicylates < 0.3 mg/dL (3-10 ) L 06/03/21 11:30 Urine Opiates Scre en Negative ng/mL (N egative) 06/03/21 10:46 Acetaminophen < 5.0 ug/mL (10-3 0) L 06/03/21 11:30 Ur Barbiturates Sc reen Negative ng/mL (N egative) 06/03/21 10:46 Ur Phencyclidine S crn Negative ng/mL (N egative) 06/03/21 10:46 Ur Amphetamines Sc reen Negative ng/mL (N egative) 06/03/21 10:46 U Benzodiazepines Scrn Negative ng/mL (N egative) 06/03/21 10:46 Urine Cocaine Scre en Negative ng/mL (N egative) 06/03/21 10:46 U Marijuana (THC) Screen Negative ng/mL (N egative) 06/03/21 10:46 Ethyl Alcohol < 10 mg/dL (0-10) 06/03/21 11:30 Vitals: Last Vital Signs Temp 99.1 F 07/23/21 21:22 Pulse 106 H 07/23/21 21:22 Resp 16 07/23/21 21:22 BP 94/68 07/23/21 21:22 Pulse Ox 99 07/23/21 21:22 Discharge Plan Discharge Patient Disposition: Home Condition: Stable Prescriptions: New chlorpromazine 50 mg Tablet 100 mg PO Q6H PRN (Reason: Agitation) 30 Days Qty: 80 1RF pantoprazole 40 mg Tablet,Delayed Release (Dr/Ec) 40 mg PO DAILY 30 Days Qty: 30 1RF trazodone 150 mg Tablet 300 mg PO BEDTIME 30 Days Qty: 60 1RF chlorpromazine 50 mg Tablet 100 mg PO QAM 30 Days Qty: 60 1RF Continued aspirin [Adult Low Dose Aspirin] 81 mg tablet,delayed release (DR/EC) 81 mg PO DAILY 0RF clonazepam 0.5 mg tablet 0.5 mg PO BID 30 Days Qty: 60 1RF losartan 25 mg tablet 25 mg PO DAILY Qty: 30 1RF chlorpromazine 50 mg Tablet 250 mg PO BEDTIME 30 Days Qty: 150 1RF hydroxyzine pamoate 25 mg Capsule 50 mg PO Q6H PRN (Reason: Anxiety or Sleep) 30 Days Qty: 120 1RF Lunesta 1 mg tablet 1 mg PO BEDTIME 30 Days Qty: 30 1RF Latuda 80 mg Tablet 80 mg PO 1700 30 Days Qty: 30 1RF Eliquis 5 mg tablet 5 mg PO BID 30 Days Qty: 60 1RF Discontinued spironolactone 25 mg tablet 25 mg PO DAILY Qty: 30 3RF trazodone 100 mg tablet 100 mg PO BEDTIME PRN (Reason: Insomnia) 30 Days Qty: 30 1RF chlorpromazine 50 mg Tablet 50 mg PO Q4H PRN (Reason: Agitation) 7 Days Qty: 14 2RF clonazepam 0.5 mg tablet 0.5 mg PO BID@09,21 7 Days Qty: 14 2RF No Action carvedilol 3.125 mg tablet 3.125 mg PO BID Qty: 60 3RF Rx Instructions: must administer with a meal/food Discharge Orders: Discharge Order (Routine); Ordered 07/24/21 Ordered By: Jag Escobar Referrals: Dr. Dianna Hutchinson [Other] - 07/24/21 (ARRIVE ANYTIME BEFORE 3 PM. ) [facility] [Outside] - 07/24/21 7:30 am (This appointment is for your initial intake assessment. Once you do this assessment you will be referred for appropriate services.) Justina Santo MD [Physician] - 07/30/21 2:00 pm (Follow Up) Discharge Diet: Regular Discharge Activity: Resume usual activity Patient Instructions: Depression, Chlorpromazine (By mouth), Pantoprazole (By mouth), Schizophrenia (DC), Help Prevent Suicide (DC), Anxiety (DC), Opioid Safety Discharge Attestations NPU Time Spent in Discharge Care*: greater than 30 min Specific Discharge Activities: Specific discharge activities: educating patient, discussing with correctional counselor/case manager/social workers/dc planners, documenti ng/other paperwork and evaluating patient/reviewing data Status at Discharge: Cognitive status at discharge: cognitively intact , Be havioral status at discharge: cooperative , Coding Level of Care Code Acute [facility] DC note Diagnoses Suicidal ideation R45.851 Schizophrenia F20.9 Cluster B personality disorder F60.89 Opiate misuse F11.90 Hypotension I95.9 Chronic anticoagulation Z79.01 Psychosis F29
[2021-07-24 06:00] VITALS: BP 90/55; PULSE 78; RESP 16; TEMP 36.4; O2SAT 92
[2021-07-24 06:09] VITALS: BP 94/68; PULSE 106; RESP 16; TEMP 37.3; O2SAT 99
[2021-07-24] MEDS: buprenorphine-naloxone 4-1 mg Film 2 EACH SUBLINGUAL (06:12)
[2021-07-24] MEDS: chlorPROMazine 50 mg Tablet 100 MG PO (06:12)
--- NOTE | 2021-07-24 10:19 | PC.SOCIAL ---
Noticed this am that DC information was not finalized at 0630. Called unit and asked that this be done since Uncle will arrive to garbage pick up worker patient at 0700. Also noted the appts today with [facility] for initial assessment and provider for Suboxone. Notified finance that we can not bill for any services on todays date so follow up care can be done as scheduled and [facility] Provider can go ahead and see and order Suboxone medications. Debra Lora responded in agreeement. Notified [facility] and will send email to Aide Gunn as reference. Sent email information along with recoreds to Isidra Aleman at [facility] with Dr Dianna Christian to ensure patient can be seen today. Please reference Mario Tovar note of which I this nurse was present and agree with what was documented.
--- NOTE | 2021-08-18 19:09 | P.NPUPN_ITS ---
Subjective NPU Subjective: He reports that he is doing relatively well. The voices continue but they are under control with the as needed medications. He continues to want to go home before the guardianship hearing but agrees to wait. Medications: Medication Review Details: This is an overweight, versus obese, white male, in hospital scrubs, with adequate grooming, and eye contact. No abnormal movements except for mild psychomotor retardation. Cooperative with exam in no acute distress. Speech was normal rate and volume. Mood described as pretty good just anxious waiting affect appeared congruent. Thought process, organized. Thought content: patient denied any suicidal or homicidal ideation.? There were no delusions reported or noted, he denied any auditory or visual hallucinations. Attention, concentration, and memory appeared intact but were not formally tested.? He was alert and oriented times three. Insight and judgment appeared fair, impulse control appeared fair in a locked facility.? Mental Status Exam MSE Comments: This is an overweight, versus obese, white male, in hospital scrubs, with adequate grooming, and eye contact. No abnormal movements except for mild psychomotor retardation. Cooperative with exam in no acute distress. Speech was normal rate and volume. Mood described as depressed; affect congruent. Thought process, organized. Thought content: patient denied any suicidal or homicidal ideation.? There were no delusions reported or noted, he admits to auditory but no visual hallucinations. Attention, concentration, and memory appeared intact but were not formally tested.? He was alert and oriented times three. Insight and judgment appeared fair, impulse control appeared fair in a locked facility.? Cognition: Patient Appearance: Disheveled/Poor Hygiene Level of Consciousness: Awake and Alert Patient Cognition Impaired: No Ability to Follow Directions: Good Patient Orientation (long list): Person, Place, Name, Age and Birthday Comprehension Ability: Understands Concepts Hallucination Type: None Delusion Description: Not Present Thought Process: Appropriate Affect: Affect Description: Calm Depressive Symptoms: Changes in Appetite, Difficulty Sleeping and Unhappiness Behavior: Patient Behavior: Appropriate Speech Pattern: Appropriate and Clear Vitals/I&O/Wt Last Vital Signs Temp 99.1 F 07/24/21 06:09 Pulse 106 H 07/24/21 06:09 Resp 16 07/24/21 06:09 BP 94/68 07/24/21 06:09 Pulse Ox 99 07/24/21 06:09 Data NPU : 06/04/21 09:00 06/04/21 09:00 A&P Assessment and plan (1) Suicidal ideation: Status: Resolved (2) Schizophrenia: Status: Chronic (3) Cluster B personality disorder: Status: Chronic (4) Opiate misuse: Status: Chronic (5) Hypotension: Status: Acute (6) Chronic anticoagulation: Status: Chronic (7) Psychosis: Status: Chronic Plan This is a 36-year-old male with schizophrenia and cluster B personality disorder with multiple recent suicide attempts.? He was scheduled for a guardianship hearing but it was canceled because of the weather and not rescheduled.? He ran out of his Latuda and became more psychotic and attempted suicide again Plan: 1.? Continue current outpatient medication.? Thorazine to 100 mg Q4H PRN. Thorazine 100 mg every morning. 2.? Continue every 15 minute checks for safety. 3.? Encourage individual, group and milieu therapies. 4.? Encourage sober living treatment after discharge at the highest level of care to which he is willing to commit. 5.? We will monitor for safety for himself in the community prior to discharge. 6.? Reschedule guardianship hearing.? He will stay here until the hearing. Involuntary Hold Information 96 Hour Hold: 96 Hour Involuntary Admission: No Attestations NPU Medical Necessity Statement*: Inpatient hospitalization is medically necessary and the clinically appropriate intervention at this time. We will initiate medications and make changes as indicated. Coding Level of Care Code Acute Extrusion Die Coordinator for Jordan Craft Diagnoses Suicidal ideation R45.851 Schizophrenia F20.9 Cluster B personality disorder F60.89 Opiate misuse F11.90 Hypotension I95.9 Chronic anticoagulation Z79.01 Psychosis F29
== END 2021-07-24 07:04 | disposition home or self-care (01) | DRG 918 ==
LOC: ER 14:45 → NP 15:09
PROVIDERS: Physician Assistant; Admitting Provider Psychiatry & Neurology Psychiatry; Emergency Provider Family Medicine; Visit Provider Psychiatry & Neurology Psychiatry
DX: T45.0X2A Poisoning by antiallergic and antiemetic drugs, intentional self-harm, initial encounter (principal); R45.851 Suicidal ideations; F20.9 Schizophrenia, unspecified; F60.89 Other specific personality disorders; Z91.51 Personal history of suicidal behavior; F17.210 Nicotine dependence, cigarettes, uncomplicated; I95.9 Hypotension, unspecified; F11.90 Opioid use, unspecified, uncomplicated; F60.3 Borderline personality disorder; Z86.711 Personal history of pulmonary embolism; Z79.01 Long term (current) use of anticoagulants; Z79.82 Long term (current) use of aspirin
CPT/HCPCS: 71045; 80053; 80306; 80307; 81001; 82274; 83735; 84484; 85025; 85378; 87493; 87506; 93005; 96372; 97150; 97165; 99283; 99285; J0573; J1200; J2060; Q0161; Q0163

== ENCOUNTER 2021-07-31 10:15 | Outpatient (CLI) | payer MEDICARE, MEDICAID, SELFPAY ==
--- NOTE | 2021-07-31 10:24 | XR_ITS ---
WS: [id number] Cervical spine, 3 views, 07/31/2021 Clinical Data: M54.2 - Cervicalgia Comparison: None. Findings: No compression fractures are seen. The disc heights are normal. There is no prevertebral so ft tissue swelling. The odontoid is unremarkable. The soft tissues of the neck and the lung apices ar e normal. The patient's shoulders obscure detail on the lateral view of the C7 vertebral body. XR/XR cervical spine 3V* [id number] Impression: Negative cervical spine.
== END 2021-07-31 10:16 | disposition home or self-care (01) ==
LOC: RAD 10:19
PROVIDERS: PCP Family Medicine; Visit Provider Family Medicine
DX: M54.2 Cervicalgia (principal)
CPT/HCPCS: 72040

== ENCOUNTER 2021-08-05 13:59 | Inpatient (IN) | payer MEDICARE, MEDICAID, SELFPAY ==
[2021-08-05 14:12] VITALS: BP 117/77; PULSE 91; RESP 18; TEMP 36.6; O2SAT 93; BMI 32.1
--- NOTE | 2021-08-05 14:24 | ED.C_ITS ---
Documented by User: MORA Clarke 08/05/21 15:35 HPI - Psych General: Chief Complaint: Psychiatric Symptoms Stated Complaint: SI Time Seen by Provider: 08/05/21 14:21 Source: patient Mode of arrival: ambulatory Limitations: no limitations History of Present Illness: Patient is a 36-year-old male who presents to ED today with complaint of auditory hallucinations that are commanding him to harm himself. Patient tells me he does feel depressed and suicidal with a plan to overdose on medications. Patient does have multiple previous suicide attempts including overdosing on medications that required an ICU stay. Patient states he is also swallowed razor blades and suicide attempts. He is not having any visual hallucinations. He denies drug or alcohol use. Patient states he is taking his psychiatric medications as prescribed. He does have an appointment on 08/10 with outpatient psychiatry. Patient recently completed an extended NPU long stay (patient reports 50 days) for similar complaints. MD complaint: suicidal ideation, feels depressed and other (halluinations) Duration: constant History of same: Yes Associated psychiatric symptoms: depression, suicidal ideation and auditory hallucinations Associated symptoms: Reports auditory hallucinations, depression and suicidal ideation; Deny visual hallucinations or homicidal ideation Treatments prior to arrival: none If self harm: admits thoughts of self harm Details of plan: OD medications Review of Systems Const: Denies: fever(s) or chills Card: Denies: chest pain, palpitations, lightheadedness or syncope Resp: Denies: dyspnea GI: Denies: abdominal pain, nausea, vomiting or diarrhea Skin/Breast: Denies: rash Neuro: Denies: headache(s) Psych: Reports: depression, hopelessness, auditory hallucinations and suicidal ideation; Denies: anxiety, visual hallucinations or homicidal ideation [facility] ED PFSH: Medical History Abnormal ECG Acute pancreatitis (~12/2020) History of cardiovascular stress test (~01/2021) History of foreign body ingestion intentional, requiring invasive intervention Non-ischemic cardiomyopathy Opiate misuse Psychiatric care QT prolongation history of medication induced QT prolongation Schizophrenia Suicide attempt Suicide attempt by drug overdose Ulcerative colitis Surgical History History of appendectomy History of esophagogastroduodenoscopy (EGD) Social History Smoking and tobacco status: current every day smoker Alcohol intake: current Physical Exam Const: COMMON NORMALS: no acute distress, patient oriented x3, no limitations, alert and well nourished GENERAL APPEARANCE: cooperative and well kempt ORIENTATION/CONSCIOUSNESS: Yes awake, Yes oriented to person, Yes oriented to place and Yes oriented to time Resp: COMMON NORMALS: normal respiratory effort and clear to auscultation bilaterally AUSCULTATION: clear to auscultation bilaterally Cardio: COMMON NORMALS: regular rate and regular rhythm RATE: regular rate RHYTHM: regular rhythm Neuro: RYAN COMA SCALE: document GCS findings Vida coma scale eye opening: Spontaneous Ryan coma scale verbal response: Orientated Vida coma scale motor response: Obey commands Vida coma scale total score: 15 COMMON NORMALS: patient oriented x3, moves all extremities, no focal motor deficits and no sensory deficits noted SENSORIUM/ORIENTATION: Yes alert, Yes oriented to person, Yes oriented to place and Yes oriented to time Psych: COMMON NORMALS: mental status grossly normal, Normal thought process present, cooperative, normal affect, speech normal, activity/motor behavior normal and denies homicidal ideation APPEARANCE: Yes grossly normal and Yes well kempt ATTITUDE: Yes calm ACTIVITY/MOTOR BEHAVIOR: Yes appropriate eye contact and No psychomotor agitation SPEECH: Yes normal speech THOUGHT PROCESS: Normal thought process present THOUGHT CONTENT: Yes Normal thought content present ATTENTION/CONCENTRATION: Yes attention grossly intact and Yes concentration grossly intact MEMORY/COGNITION: Yes memory grossly intact and Yes cognition grossly intact INSIGHT: Good insight present (Psych) JUDGEMENT: Good judgement present (Psych) Skin: COMMON NORMALS: no rashes or lesions noted GENERAL SKIN EXAM: no rashes or lesions noted Course Consultations: Consultation #1: Dr. House-accepts to NPU pending lab clearance Vital Signs: Vital signs: Vital Signs Temperature 97.9 F 08/05/21 14:12 Pulse Rate 91 08/05/21 14:12 Respiratory Rate 18 08/05/21 14:12 Blood Pressure 117/77 08/05/21 14:12 Pulse Oximetry 93 08/05/21 14:12 MDM - Psych Lab Data : 08/05/21 16:00 08/05/21 16:00 Laboratory Results WBC 7.5 10^3/uL (4.0-10.0) 08/05/21 16:00 RBC 5.12 10^6/uL (4.1-5.3) 08/05/21 16:00 Hgb 14.3 g/dL (11.7-16.6) 08/05/21 16:00 Hct 42.3 % (42.0-52.0) 08/05/21 16:00 MCV 82.6 fl (80-94) 08/05/21 16:00 MCH 27.9 pg (28.0-34.0) L 08/05/21 16:00 MCHC 33.8 g/dL (30.0-36.0) 08/05/21 16:00 RDW 14.0 % (12.1-15.1) 08/05/21 16:00 Plt Count 253 10^3/cmm (130-400) 08/05/21 16:00 MPV 9.8 fL (7.4-10.4) 08/05/21 16:00 Neut % (Auto) 56.1 % 08/05/21 16:00 Lymph % (Auto) 30.0 % 08/05/21 16:00 [place] % (Auto) 6.1 % 08/05/21 16:00 Eos % (Auto) 7.4 % 08/05/21 16:00 Baso % (Auto) 0.3 % 08/05/21 16:00 Neut # (Auto) 4.23 10^3/uL (1.8-7.7) 08/05/21 16:00 Lymph # (Auto) 2.3 10^3/uL (0.8-4.8) 08/05/21 16:00 [place] # (Auto) 0.5 10^3/uL (0.2-0.9) 08/05/21 16:00 Eos # (Auto) 0.6 10^3/uL (0.0-0.8) 08/05/21 16:00 Baso # (Auto) 0.0 10^3/uL (0.0-0.1) 08/05/21 16:00 Nucleated RBC % (auto) 0 % 08/05/21 16:00 Nucleated RBCs # 0.0 /100WBC 08/05/21 16:00 Sodium 140 mmol/L (136-145) 08/05/21 16:00 Potassium 3.9 mmol/L (3.5-5.1) 08/05/21 16:00 Chloride 106 mmol/L (98-107) 08/05/21 16:00 Carbon Dioxide 23 mmol/L (22-29) 08/05/21 16:00 Anion Gap 14.9 (5-19) 08/05/21 16:00 BUN 12 mg/dL (6-20) 08/05/21 16:00 Creatinine 1.1 mg/dL (0.7-1.2) 08/05/21 16:00 GFR Calculation 75.3 mL/min (90-130) L 08/05/21 16:00 Glucose 94 mg/dL (65-115) 08/05/21 16:00 Calculated Osmolality 290 mOsm/kg (285-295) 08/05/21 16:00 Calcium 9.1 mg/dL (8.5-10.5) 08/05/21 16:00 Total Bilirubin 0.5 mg/dL (0.15-1.2) 08/05/21 16:00 AST 13 U/L (0-40) 08/05/21 16:00 ALT 8 U/L (0-41) 08/05/21 16:00 Alkaline Phosphatase 96 IU/L (40-130) 08/05/21 16:00 Total Protein 7.2 g/dL (6.6-8.7) 08/05/21 16:00 Albumin 4.3 g/dL (3.5-5.2) 08/05/21 16:00 Globulin 2.9 g/dL (1.3-4.6) 08/05/21 16:00 Salicylates < 0.3 mg/dL (3-10) L 08/05/21 16:00 Urine Opiates Screen Negative ng/mL (Negative) 08/05/21 14:30 Acetaminophen < 5.0 ug/mL (10-30) L 08/05/21 16:00 Ur Barbiturates Screen Negative ng/mL (Negative) 08/05/21 14:30 Ur Phencyclidine Scrn Negative ng/mL (Negative) 08/05/21 14:30 Ur Amphetamines Screen Negative ng/mL (Negative) 08/05/21 14:30 U Benzodiazepines Scrn Negative ng/mL (Negative) 08/05/21 14:30 Urine Cocaine Screen Negative ng/mL (Negative) 08/05/21 14:30 U Marijuana (THC) Screen Negative ng/mL (Negative) 08/05/21 14:30 Ethyl Alcohol < 10 mg/dL (0-10) 08/05/21 16:00 Discharge Plan Discharge Patient Disposition: Admitted As Inpatient Clinical Impression: Suicidal ideation, Auditory hallucinations Condition: Stable Coding Level of Care Code ED Cnc Set Up Operator for Chg Fwd Exam Detailed Documented by User: Farhad Haas DO 08/05/21 17:48 HPI - Psych General: Chief Complaint: Psychiatric Symptoms Stated Complaint: SI Time Seen by Provider: 08/05/21 14:21 PFSH ED PFSH: Medical History Abnormal ECG Acute pancreatitis (~12/2020) History of cardiovascular stress test (~01/2021) History of foreign body ingestion intentional, requiring invasive intervention Non-ischemic cardiomyopathy Opiate misuse Psychiatric care QT prolongation history of medication induced QT prolongation Schizophrenia Suicide attempt Suicide attempt by drug overdose Ulcerative colitis Surgical History History of appendectomy History of esophagogastroduodenoscopy (EGD) Social History Smoking and tobacco status: current every day smoker Alcohol intake: current Physical Exam Neuro: RYAN COMA SCALE: document GCS findings Ryan coma scale total score: 15 Course Vital Signs: Vital signs: Vital Signs Temperature 97.9 F 08/05/21 14:12 Pulse Rate 91 08/05/21 14:12 Respiratory Rate 18 08/05/21 14:12 Blood Pressure 117/77 08/05/21 14:12 Pulse Oximetry 93 08/05/21 14:12 MDM - Psych Medical Decision Making Chart reviewed and patient discussed with midlevel. Agree with assessment and plan. Patient having auditory hallucinations with suicidal overdose dose as a specific plan he has not done anything to advance his plan to this point currently is stable exam is unremarkable admit to [facility] you. Medical Records I reviewed the patient's medical records. Lab Data I reviewed the patient's lab results. : 08/05/21 16:00 08/05/21 16:00 Laboratory Results WBC 7.5 10^3/uL (4.0-10.0) 08/05/21 16:00 RBC 5.12 10^6/uL (4.1-5.3) 08/05/21 16:00 Hgb 14.3 g/dL (11.7-16.6) 08/05/21 16:00 Hct 42.3 % (42.0-52.0) 08/05/21 16:00 MCV 82.6 fl (80-94) 08/05/21 16:00 MCH 27.9 pg (28.0-34.0) L 08/05/21 16:00 MCHC 33.8 g/dL (30.0-36.0) 08/05/21 16:00 RDW 14.0 % (12.1-15.1) 08/05/21 16:00 Plt Count 253 10^3/cmm (130-400) 08/05/21 16:00 MPV 9.8 fL (7.4-10.4) 08/05/21 16:00 Neut % (Auto) 56.1 % 08/05/21 16:00 Lymph % (Auto) 30.0 % 08/05/21 16:00 [place] % (Auto) 6.1 % 08/05/21 16:00 Eos % (Auto) 7.4 % 08/05/21 16:00 Baso % (Auto) 0.3 % 08/05/21 16:00 Neut # (Auto) 4.23 10^3/uL (1.8-7.7) 08/05/21 16:00 Lymph # (Auto) 2.3 10^3/uL (0.8-4.8) 08/05/21 16:00 [place] # (Auto) 0.5 10^3/uL (0.2-0.9) 08/05/21 16:00 Eos # (Auto) 0.6 10^3/uL (0.0-0.8) 08/05/21 16:00 Baso # (Auto) 0.0 10^3/uL (0.0-0.1) 08/05/21 16:00 Nucleated RBC % (auto) 0 % 08/05/21 16:00 Nucleated RBCs # 0.0 /100WBC 08/05/21 16:00 Sodium 140 mmol/L (136-145) 08/05/21 16:00 Potassium 3.9 mmol/L (3.5-5.1) 08/05/21 16:00 Chloride 106 mmol/L (98-107) 08/05/21 16:00 Carbon Dioxide 23 mmol/L (22-29) 08/05/21 16:00 Anion Gap 14.9 (5-19) 08/05/21 16:00 BUN 12 mg/dL (6-20) 08/05/21 16:00 Creatinine 1.1 mg/dL (0.7-1.2) 08/05/21 16:00 GFR Calculation 75.3 mL/min (90-130) L 08/05/21 16:00 Glucose 94 mg/dL (65-115) 08/05/21 16:00 Calculated Osmolality 290 mOsm/kg (285-295) 08/05/21 16:00 Calcium 9.1 mg/dL (8.5-10.5) 08/05/21 16:00 Total Bilirubin 0.5 mg/dL (0.15-1.2) 08/05/21 16:00 AST 13 U/L (0-40) 08/05/21 16:00 ALT 8 U/L (0-41) 08/05/21 16:00 Alkaline Phosphatase 96 IU/L (40-130) 08/05/21 16:00 Total Protein 7.2 g/dL (6.6-8.7) 08/05/21 16:00 Albumin 4.3 g/dL (3.5-5.2) 08/05/21 16:00 Globulin 2.9 g/dL (1.3-4.6) 08/05/21 16:00 Salicylates < 0.3 mg/dL (3-10) L 08/05/21 16:00 Urine Opiates Screen Negative ng/mL (Negative) 08/05/21 14:30 Acetaminophen < 5.0 ug/mL (10-30) L 08/05/21 16:00 Ur Barbiturates Screen Negative ng/mL (Negative) 08/05/21 14:30 Ur Phencyclidine Scrn Negative ng/mL (Negative) 08/05/21 14:30 Ur Amphetamines Screen Negative ng/mL (Negative) 08/05/21 14:30 U Benzodiazepines Scrn Negative ng/mL (Negative) 08/05/21 14:30 Urine Cocaine Screen Negative ng/mL (Negative) 08/05/21 14:30 U Marijuana (THC) Screen Negative ng/mL (Negative) 08/05/21 14:30 Ethyl Alcohol < 10 mg/dL (0-10) 08/05/21 16:00 Discharge Plan Discharge Patient Disposition: Admitted As Inpatient Clinical Impression: Suicidal ideation, Auditory hallucinations Condition: Stable Coding Level of Care Code ED Cnc Set Up Operator for Jordan Craft Exam Detailed
[2021-08-05 16:21] LABS: Amphetamines Screen Urine Negative (Negative); Barbiturates Screen Urine Negative (Negative); Benzodiazepines Screen Urine Negative (Negative); Cocaine Screen Urine Negative (Negative); Opiate Screen Urine Negative (Negative); PCP Screen Urine Negative (Negative); THC Screen Urine Negative (Negative)
[2021-08-05 16:26] LABS: Basophils % 0.3 %; Eosinophils # 0.6 10^3/uL (0.0-0.8); Eosinophils % 7.4 %; Hematocrit 42.3 % (42.0-52.0); Hemoglobin 14.3 g/dL (11.7-16.6); Lymphocytes # 2.3 10^3/uL (0.8-4.8); Mean Corpuscular HGB Conc 33.8 g/dL (30.0-36.0); Mean Corpuscular Hemoglobin 27.9 pg (28.0-34.0); Mean Corpuscular Volume 82.6 fl (80-94); Mean Platelet Volume 9.8 fL (7.4-10.4); Monocytes # 0.5 10^3/uL (0.2-0.9); Monocytes % 6.1 %; Neutrophils # 4.23 10^3/uL (1.8-7.7); Neutrophils % 56.1 %; Nucleated Red Blood Cells % 0 %; Platelet Count 253 10^3/cmm (130-400); Red Blood Count 5.12 10^6/uL (4.1-5.3); White Blood Count 7.5 10^3/uL (4.0-10.0)
[2021-08-05 17:07] LABS: Alanine Aminotransferase 8 U/L (0-41); Albumin Level 4.3 g/dL (3.5-5.2); Alkaline Phosphatase 96 IU/L (40-130); Anion Gap 14.9 (5-19); Aspartate Amino Transferase 13 U/L (0-40); Blood Urea Nitrogen 12 mg/dL (6-20); Calcium 9.1 mg/dL (8.5-10.5); Carbon Dioxide 23 mmol/L (22-29); Chloride 106 mmol/L (98-107); Globulin 2.9 g/dL (1.3-4.6); Glomerular Filtration Rate 75.3 mL/min (90-130); Glucose 94 mg/dL (65-115); Osmolality Calculated 290 mOsm/kg (285-295); Potassium 3.9 mmol/L (3.5-5.1); Sodium 140 mmol/L (136-145); Total Bilirubin 0.5 mg/dL (0.15-1.2); Total Protein 7.2 g/dL (6.6-8.7)
[2021-08-05 17:08] LABS: Acetaminophen < 5.0 ug/mL (10-30); Alcohol Level < 10 mg/dL (0-10); Salicylate < 0.3 mg/dL (3-10)
[2021-08-05 20:56] VITALS: BP 108/66; PULSE 78; RESP 18; TEMP 36.9; O2SAT 94
[2021-08-06 06:00] VITALS: BP 75/59; PULSE 67; RESP 16; TEMP 36.8; O2SAT 97
[2021-08-06] MEDS: chlorPROMazine 50 mg Tablet 100 MG PO ×2 (06:32→13:47)
[2021-08-06 09:02] VITALS: BP 105/63
[2021-08-06 10:39] VITALS: BP 105/63
[2021-08-06] MEDS: losartan 50 mg Tablet 25 MG PO (10:39)
[2021-08-06] MEDS: carvedilol 3.125 mg Tablet PO ×2 (10:41→20:24)
[2021-08-06] MEDS: aspirin 81 mg EC Tablet PO (10:41)
[2021-08-06] MEDS: pantoprazole DR 40 mg Tablet PO (10:41)
[2021-08-06] MEDS: CLONazepam 0.5 mg Tablet PO ×2 (10:42→13:57)
--- NOTE | 2021-08-06 13:40 | P.NPUHP_ITS ---
Providers/Chief Complaint Admitting Physician: Noel House MD Primary Care Provider: Justina Santo MD Chief Complaint: SI HPI NPU History of Present Illness Shayan Dickson is a 36 year old male admitted to our emergency department with the following report: Patient is a 36-year-old male who presents to ED today with complaint of auditory hallucinations that are commanding him to harm himself.? Patient tells me he does feel depressed and suicidal with a plan to overdose on medications.? Patient does have multiple previous suicide attempts including overdosing on medications that required an ICU stay.? Patient states he is also swallowed razor blades and suicide attempts.? He is not having any visual hallucinations.? He denies drug or alcohol use.? Patient states he is taking his psychiatric medications as prescribed.? He does have an appointment on 08/10 with outpatient psychiatry.? Patient recently completed an extended NPU long stay (patient reports 50 days) for similar complaints. MD complaint: suicidal ideation, feels depressed and other (halluinations) Duration: constant History of same: Yes Associated psychiatric symptoms: depression, suicidal ideation and auditory hallucinations Associated symptoms: Reports auditory hallucinations, depression and suicidal ideation; Deny visual hallucinations or homicidal ideation Treatments prior to arrival: none If self harm: admits thoughts of self harm Details of plan: OD medications He is admitted to the neuropsychiatry unit for definitive treatment of these issues. He said he had increased auditory hallucinations that built up gr adually and became severe on the day before admission. He started having suicidal ideation. He did not take an overdose. He said that he could have taken some [id number] medications but he did not. He said that he did not have access to his prescription medications. This is the first time that he came into the hospital without an overdose or some sort of significant suicide attempt. He said he is happy at his uncle's house. He would prefer that to a custodial. However he understands that that is not as safe the situation as we were hoping. He cannot think of any increased stressors in or any reason why he would have had more hallucinations. A friend of his that he met here on the unit had been coming over to his house and spending the night a couple of times over the last week. They took her back to the [facility] on the same day that he was admitted to the hospital. It is the last time that he will see her because she is going to fly to [place] very soon. He did not think that that would have caused him stress and auditory hallucinations however it was nice to have her there and it is a big change for him that she is leaving and he will never see her again. He agreed to leave the medication unchanged for now and see what happens to the hallucinations in a stable environment. Discharge Diagnosis (1) Suicidal ideation: ?Status:?Resolved (2) Schizophrenia: ?Status:?Chronic (3) Cluster B personality disorder: ?Status:?Chronic (4) Opiate misuse: ?Status:?Chronic (5) Hypotension: ?Status:?Acute (6) Chronic anticoagulation: ?Status:?Chronic ?Permanent problem details: eliquis (7) Psychosis: ?Status:?Chronic SI took like 60 Benadryl? Brief History: History of Present Illness Shayan Dickson is a 36 year old male who is seen in the emergency department with the following report: Patient is a 36-year-old male comes to the ED with SI.? Past medical history of schizophrenia, cluster B personality disorder.? he took approximately 60 25 mg? Benadryl tablets at 3 AM this morning to try and kill himself.? History of past suicide attempts.? States he has been having some worsening depression and thoughts of SI past couple weeks.? He says he hears voices in his head telling him to kill himself.? He admits to hearing voices in his head for a while now.? He says the medications he has been on in the past have not helped the voices.? Patient says he is tired of being alive.? He recently stopped taking Latuda due to cost.? He endorses having poor sleep.? Denies any HI.? Here in the ED says he feels a little anxious and his mouth feels really dry.? Endorses some blurry vision. Denies any nausea or vomiting. Associated symptoms: Reports auditory hallucinations, depression and suicidal ideation; Deny homicidal ideation He was admitted to the neuropsychiatry unit for definitive treatment of these issues.? He says that he did well for about 1 week after he left the hospital last time.? Both his appointment for outpatient treatment as well as the hearing for his guardianship were delayed because of weather and he could not reschedule them.? He ran out of Latuda and the voices became much worse and he became depressed and suicidal.? He said that the insurance would not pay for the Latuda because it was written for 40 mg instead of 80 mg.? He also could not get refill s on the Suboxone and has been taking half a dose but then ran out of it 10 days ago. Hospital Course He was treated, group and milieu therapy provided.? Latuda was increased and as needed Thorazine was introduced and titrated to effect.? This was a very complicated situation as he had been in the hospital many many times with overdose attempts, though this time it was more diffuse that he has not overdosed initiated but reportedly secondary to inability to get Latuda.? Guardianship was initiated given multiple times we did not and were back at his place again.? It took a considerable amount of time to get his guardianship hearing and against our recommendation that she was in part awarded to his uncle who was present in a family support role for all the suicide attempts.? The court decided that he could discharge home to his co-guardian his uncle who is reportedly going to control his medications which had been requested multiple times before during hospitalizations even just prior to suicide attempts.? Ultimately he had marked improvement and was chuckie for safety outside the hospital prior to discharge.? During the hospitalization, patient had routine laboratory studies which were within normal limits except for few outliers.? Additionally there was a general medical evaluation which was also within normal limits and revealed no new acute processes. Discharge Summary: At the time of discharge, he denied psychosis or lethality.? Mood and anxiety were well managed.? Patient endorsed a plan to avoid all drugs of abuse and follow-up with the aftercare recommendations of the treatment team.? Patient was evaluated and deemed to be absent credible lethality, and had achieved the maximum benefit from an inpatient hospitalization, so was discharged. Prescriptions: New ? chlorpromazine 50 mg Tablet ?? 100 mg PO Q6H PRN (Reason: Agitation) 30 Days Qty: 80 1RF ? pantoprazole 40 mg Tablet,Delayed Release (Dr/Ec) ?? 40 mg PO DAILY 30 Days Qty: 30 1RF ? trazodone 150 mg Tablet ?? 300 mg PO BEDTIME 30 Days Qty: 60 1RF ? chlorpromazine 50 mg Tablet ?? 100 mg PO QAM 30 Days Qty: 60 1RF Continued ? aspirin [Adult Low Dose Aspirin] 81 mg tablet,delayed release (DR/EC) ?? 81 mg PO DAILY 0RF ? clonazepam 0.5 mg tablet ?? 0.5 mg PO BID 30 Days Qty: 60 1RF ? losartan 25 mg tablet ?? 25 mg PO DAILY Qty: 30 1RF ? chlorpromazine 50 mg Tablet ?? 250 mg PO BEDTIME 30 Days Qty: 150 1RF ? hydroxyzine pamoate 25 mg Capsule ?? 50 mg PO Q6H PRN (Reason: Anxiety or Sleep) 30 Days Qty: 120 1RF ? Lunesta 1 mg tablet ?? 1 mg PO BEDTIME 30 Days Qty: 30 1RF ? Latuda 80 mg Tablet ?? 80 mg PO 1700 30 Days Qty: 30 1RF ? Eliquis 5 mg tablet ?? 5 mg PO BID 30 Days Qty: 60 1RF Discontinued ? spironolactone 25 mg tablet ?? 25 mg PO DAILY Qty: 30 3RF ? trazodone 100 mg tablet ?? 100 mg PO BEDTIME PRN (Reason: Insomnia) 30 Days Qty: 30 1RF ? chlorpromazine 50 mg Tablet ?? 50 mg PO Q4H PRN (Reason: Agitation) 7 Days Qty: 14 2RF ? clonazepam 0.5 mg tablet ?? 0.5 mg PO BID@09,21 7 Days Qty: 14 2RF Meds NPU Home Medications Medication Instructions Recorded Confirmed Last Taken Type aspirin 81 mg tablet,delayed 81 mg PO DAILY 04/06/21 08/05/21 08/05/21 History release (Adult Low Dose Aspirin) chlorpromazine 50 mg tablet 100 mg PO Q6H PRN 30 Days #80 tab 07/23/21 08/05/21 Unknown Rx clonazepam 0.5 mg tablet 0.5 mg PO BID 30 Days #60 tab 07/23/21 08/05/21 08/05/21 Rx eszopiclone 1 mg tablet (Lunesta) 1 mg PO BEDTIME 30 Days #30 tab 07/23/21 08/05/21 08/04/21 Rx hydroxyzine pamoate 25 mg capsule 50 mg PO Q6H PRN 30 Days #120 cap 07/23/21 08/05/21 Unknown Rx losartan 25 mg tablet 25 mg PO DAILY #30 tab 07/23/21 08/05/21 06/02/21 Rx lurasidone 80 mg tablet (Latuda) 80 mg PO 1700 30 Days #30 tab 07/23/21 08/05/21 08/04/21 Rx pantoprazole 40 mg tablet,delayed 40 mg PO DAILY 30 Days #30 tab 07/23/21 08/05/21 08/05/21 Rx release trazodone 150 mg tablet 300 mg PO BEDTIME 30 Days #60 tab 07/23/21 08/05/21 08/04/21 Rx carvedilol 3.125 mg tablet 3.125 mg PO BID #60 tab 07/30/21 08/05/21 08/05/21 Rx Allergies Allergy/AdvReac Type Severity Reaction Status Date / Time mushroom Allergy Unknown Unknown Verified 07/30/21 14:10 escitalopram [From Lexapro] Allergy ALGY-Anaphy Verified 07/30/21 14:10 laxis NSAIDS (Non-Steroidal Allergy ADR-Abdominal Verified 07/30/21 14:10 Anti-Inflamma Pain venlafaxine [From Effexor] Allergy ALGY-Anaphy Verified 07/30/21 14:10 laxis PFSH NPU PFSH: Medical History Abnormal ECG Acute pancreatitis (~12/2020) History of cardiovascular stress test (~01/2021) History of foreign body ingestion intentional, requiring invasive intervention Non-ischemic cardiomyopathy Opiate misuse Psychiatric care QT prolongation history of medication induced QT prolongation Schizophrenia Suicide attempt Suicide attempt by drug overdose Ulcerative colitis Surgical History History of appendectomy History of esophagogastroduodenoscopy (EGD) Social History Smoking and tobacco status: current every day smoker Alcohol intake: current Mental Status Exam MSE Comments: This is a 36-year-old obese male who appears approximately his stated age and is in no acute distress. He is pleasant and cooperative with the evaluation. His grooming is fair. He has a few days' growth of hayes. psychomotor activity is mildly decreased. Speech is at a regular rate and rhythm, normal volume, good articulation, not pressured. Alert, oriented X3 Attention and concentration appears to be average. Memory is intact Mood is depressed. Affect is mildly dysphoric. Thought process is logical and goal-directed. Thought content: Denies auditory and visual hallucinations. No delusions or paranoia are noted. No current suicidal ideation. He denies homicidal ideation . Fund of knowledge is average. Insight and judgment appear to be fair. Impulse control is fair. Vitals/I&O/Wt Last Vital Signs Temp 98.3 F 08/06/21 06:00 Pulse 67 08/06/21 06:00 Resp 16 08/06/21 06:00 BP 105/63 08/06/21 10:39 Pulse Ox 97 08/06/21 06:00 Weight last 48 hrs Weight 104.326 kg Data NPU : 08/05/21 16:00 08/05/21 16:00 A&P Assessment and plan (1) Suicidal ideation: Status: Acute (2) Auditory hallucinations: Status: Acute (3) Schizophrenia: Status: Chronic (4) Cluster B personality disorder: Status: Chronic (5) Opiate misuse: Status: Chronic (6) Psychosis: Status: Chronic Plan This is a 36-year-old male with multiple recent suicide attempts who has increasing auditory hallucinations and suicidal ideation but no attempt. Plan: 1. Continue current medication. 2. Continue every 15 minute checks for safety. 3. Encourage individual, group and milieu therapies. 4. Encourage sober living treatment after discharge at the highest level of care to which he is willing to commit. 5. We will monitor for safety for himself in the community prior to discharge. Involuntary Hold Information 96 Hour Hold: 96 Hour Involuntary Admission: No Attestations NPU Medical Necessity Statement*: Inpatient hospitalization is medically necessary and the clinically appropriate intervention at this time. We will initiate medications and make changes as indicated. He will be in the hospital for over 2 midnights. Likely length of stay 4-6 days Coding Level of Care Code Acute Community Nurse for Jordan Fwd Diagnoses Suicidal ideation R45.851 Auditory hallucinations R44.0 Schizophrenia F20.9 Cluster B personality disorder F60.89 Opiate misuse F11.90 Psychosis F29
[2021-08-06] MEDS: buprenorphine-naloxone 4-1 mg Film 2 EACH SUBLINGUAL ×2 (13:57→17:35)
[2021-08-06 14:00] VITALS: BP 93/58; PULSE 80; RESP 17; TEMP 36.4; O2SAT 92
[2021-08-06] MEDS: lurasidone 80 mg Tablet PO (16:53)
[2021-08-06] MEDS: nicotine 2 mg Gum BUCCAL ×2 (17:35→20:37)
[2021-08-06] MEDS: trazodone 150 mg Tablet 300 MG PO (20:24)
[2021-08-06] MEDS: chlorPROMazine 50 mg Tablet 250 MG PO (20:24)
[2021-08-06] MEDS: zolpidem 5 mg Tablet 10 MG PO (20:24)
[2021-08-06] MEDS: hyDROXYzine 25 mg Capsule 50 MG PO (20:27)
[2021-08-06 20:43] VITALS: BP 92/60; PULSE 72; RESP 16; TEMP 36.4; O2SAT 93
[2021-08-07] MEDS: buprenorphine-naloxone 4-1 mg Film 2 EACH SUBLINGUAL ×2 (05:56→17:06)
[2021-08-07 06:00] VITALS: BP 100/65; PULSE 77; RESP 16; TEMP 37; O2SAT 91
[2021-08-07] MEDS: chlorPROMazine 50 mg Tablet 100 MG PO ×4 (08:40→12:20)
[2021-08-07] MEDS: pantoprazole DR 40 mg Tablet PO (08:40)
[2021-08-07] MEDS: CLONazepam 0.5 mg Tablet PO ×2 (08:40→12:17)
[2021-08-07] MEDS: aspirin 81 mg EC Tablet PO (08:41)
[2021-08-07 08:43] VITALS: BP 100/65
[2021-08-07] MEDS: nicotine 2 mg Gum BUCCAL ×3 (10:19→20:26)
[2021-08-07] MEDS: hyDROXYzine 25 mg Capsule 50 MG PO ×2 (10:47→20:27)
--- NOTE | 2021-08-07 10:51 | PC.NURSE ---
Administered 50mg Vistaril for anxiety.
[2021-08-07 14:00] VITALS: BP 90/57; PULSE 74; RESP 16; TEMP 36.6; O2SAT 92
--- NOTE | 2021-08-07 14:11 | W.PM.NPUPNS ---
Subjective NPU Subjective: He says that he is doing better today. He has had 3 doses of Thorazine 100 mg today and the voices are significantly reduced. They are not back to normal. He denies suicidal ideation at this time. He wanted to take 200 mg tomorrow morning and 100 mg at 1 PM and then resume the 100 mg twice a day after that. Mental Status Exam MSE Comments: This is a 36-year-old obese male who appears approximately his stated age and is in no acute distress. He is pleasant and cooperative with the evaluation. His grooming is fair. He has a few days' growth of hayes. psychomotor activity is mildly decreased. Speech is at a regular rate and rhythm, normal volume, good articulation, not pressured. Alert, oriented X3 Attention and concentration appears to be average. Memory is intact Mood is mildly depressed. Affect is mildly dysphoric. Thought process is logical and goal-directed. Thought content: He reports auditory hallucinations which are improved but no visual hallucinations. No delusions or paranoia are noted. No current suicidal ideation. He denies homicidal ideation. Fund of knowledge is average. Insight and judgment appear to be fair. Impulse control is fair. Cognition: Patient Appearance: Appropriate Level of Consciousness: Awake, Alert, Appropriate and Follows Commands Patient Cognition Impaired: No Ability to Follow Directions: Excellent Patient Orientation (long list): Person, Place, Time and Name Comprehension Ability: No Impairment Hallucination Type: None Delusion Description: Not Present Thought Process: Appropriate Affect: Affect Description: Appropriate and Anxious Depressive Symptoms: Hopelessness and Unhappiness Behavior: Patient Behavior: Appropriate and Cooperative Speech Pattern: Appropriate and Clear Vitals/I&O/Wt Last Vital Signs Temp 98.6 F 08/07/21 06:00 Pulse 77 08/07/21 06:00 Resp 16 08/07/21 06:00 BP 100/65 08/07/21 08:43 Pulse Ox 91 08/07/21 06:00 08/06/21 08/07/21 08/07/21 22:59 06:59 14:59 Intake Total 340 / 340 Balance 340 / 340 Weight last 48 hrs Weight 104.326 kg Data NPU : 08/05/21 16:00 08/05/21 16:00 A&P Assessment and plan (1) Suicidal ideation: Status: Acute (2) Auditory hallucinations: Status: Acute (3) Schizophrenia: Status: Chronic (4) Cluster B personality disorder: Status: Chronic (5) Opiate misuse: Status: Chronic (6) Psychosis: Status: Chronic Plan This is a 36-year-old male with multiple recent suicide attempts who has increasing auditory hallucinations and suicidal ideation but no attempt. Plan: 1. Continue current medication. Temporarily giving 300 mg of Thorazine during the day 2. Continue every 15 minute checks for safety. 3. Encourage individual, group and milieu therapies. 4. Encourage sober living treatment after discharge at the highest level of care to which he is willing to commit. 5. We will monitor for safety for himself in the community prior to discharge. Involuntary Hold Information 96 Hour Hold: 96 Hour Involuntary Admission: No Attestations NPU Medical Necessity Statement*: Inpatient hospitalization is medically necessary and the clinically appropriate intervention at this time. We will initiate medications and make changes as indicated. 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
[2021-08-07] MEDS: lurasidone 80 mg Tablet PO (17:06)
[2021-08-07] MEDS: trazodone 150 mg Tablet 300 MG PO (20:26)
[2021-08-07] MEDS: zolpidem 5 mg Tablet 10 MG PO (20:26)
[2021-08-07] MEDS: chlorPROMazine 50 mg Tablet 250 MG PO (20:26)
[2021-08-07 20:51] VITALS: BP 89/58; PULSE 73; RESP 16; TEMP 36.7; O2SAT 94
[2021-08-07] MEDS: haloperidol 5 mg Tablet PO (20:57)
[2021-08-08 06:00] VITALS: BP 100/64; PULSE 81; RESP 16; TEMP 36.5; O2SAT 93
[2021-08-08] MEDS: chlorPROMazine 50 mg Tablet 200 MG PO (06:32)
[2021-08-08] MEDS: buprenorphine-naloxone 4-1 mg Film 2 EACH SUBLINGUAL ×2 (06:32→16:47)
[2021-08-08] MEDS: nicotine 2 mg Gum BUCCAL ×4 (06:34→18:37)
[2021-08-08] MEDS: carvedilol 3.125 mg Tablet PO (08:26)
[2021-08-08] MEDS: aspirin 81 mg EC Tablet PO (08:26)
[2021-08-08] MEDS: CLONazepam 0.5 mg Tablet PO ×2 (08:26→12:17)
[2021-08-08] MEDS: losartan 50 mg Tablet 25 MG PO (08:26)
[2021-08-08] MEDS: pantoprazole DR 40 mg Tablet PO (08:26)
[2021-08-08] MEDS: hyDROXYzine 25 mg Capsule 50 MG PO (08:42)
--- NOTE | 2021-08-08 11:01 | P.NPUPN_ITS ---
Subjective NPU Subjective: He says that he is doing well. The voices are back to normal today after receiving Thorazine 200 mg this morning. He has not had any suicidal ideation today or yesterday. He is willing to try just normal Thorazine tomorrow. Mental Status Exam MSE Comments: This is a 36-year-old obese male who appears approximately his stated age and is in no acute distress. He is pleasant and cooperative with the evaluation. His grooming is fair. He has a few days' growth of hayes. psychomotor activity is mildly decreased. Speech is at a regular rate and rhythm, normal volume, good articulation, not pressured. Alert, oriented X3 Attention and concentration appears to be average. Memory is intact Mood is mildly depressed. Affect is mildly dysphoric. Thought process is logical and goal-directed. Thought content: He reports auditory hallucinations which are improved but no visual hallucinations. No delusions or paranoia are noted. No current suicidal ideation. He denies homicidal ideation. Fund of knowledge is average. Insight and judgment appear to be fair. Impulse control is fair. Cognition: Patient Appearance: Disheveled/Poor Hygiene Level of Consciousness: Awake, Alert, Appropriate and Follows Commands Patient Cognition Impaired: No Ability to Follow Directions: Excellent Patient Orientation (long list): Person, Place, Time and Name Comprehension Ability: No Impairment Hallucination Type: Auditory Delusion Description: Not Present Thought Process: Appropriate Affect: Affect Description: Appropriate Depressive Symptoms: Hopelessness and Unhappiness Behavior: Patient Behavior: Appropriate and Cooperative Speech Pattern: Appropriate, Clear and Delayed Vitals/I&O/Wt Last Vital Signs Temp 97.7 F 08/08/21 06:00 Pulse 81 08/08/21 06:00 Resp 16 08/08/21 06:00 BP 100/64 08/08/21 06:00 Pulse Ox 93 08/08/21 06:00 08/07/21 08/08/21 08/08/21 22:59 06:59 14:59 Intake Total 480 / 820 Balance 480 / 820 Data NPU : 08/05/21 16:00 08/05/21 16:00 A&P Assessment and plan (1) Suicidal ideation: Status: Acute (2) Auditory hallucinations: Status: Acute (3) Schizophrenia: Status: Chronic (4) Cluster B personality disorder: Status: Chronic (5) Opiate misuse: Status: Chronic (6) Psychosis: Status: Chronic Plan This is a 36-year-old male with multiple recent suicide attempts who has increasing auditory hallucinations and suicidal ideation but no attempt. Plan: 1. Continue current medication. Temporarily giving 300 mg of Thorazine during the day. We will reduce to 200 mg during the day tomorrow. 2. Continue every 15 minute checks for safety. 3. Encourage individual, group and milieu therapies. 4. Encourage sober living treatment after discharge at the highest level of care to which he is willing to commit. 5. We will monitor for safety for himself in the community prior to discharge. Involuntary Hold Information 96 Hour Hold: 96 Hour Involuntary Admission: No Attestations NPU Medical Necessity Statement*: Inpatient hospitalization is medically necessary and the clinically appropriate intervention at this time. We will initiate medications and make changes as indicated. 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
[2021-08-08] MEDS: chlorPROMazine 50 mg Tablet 100 MG PO (12:17)
[2021-08-08 14:00] VITALS: BP 109/60; PULSE 66; RESP 16; TEMP 36.5; O2SAT 97
[2021-08-08] MEDS: lurasidone 80 mg Tablet PO (16:47)
[2021-08-08 20:13] VITALS: BP 92/59; PULSE 84; RESP 16; TEMP 36.7; O2SAT 93
[2021-08-08] MEDS: trazodone 150 mg Tablet 300 MG PO (20:35)
[2021-08-08] MEDS: zolpidem 5 mg Tablet 10 MG PO (20:35)
[2021-08-08] MEDS: chlorPROMazine 50 mg Tablet 250 MG PO (20:35)
[2021-08-09 06:00] VITALS: BP 100/63; PULSE 74; RESP 17; TEMP 36.3; O2SAT 96; BMI 32.1
[2021-08-09] MEDS: buprenorphine-naloxone 4-1 mg Film 2 EACH SUBLINGUAL ×2 (06:18→17:04)
[2021-08-09] MEDS: aspirin 81 mg EC Tablet PO (08:28)
[2021-08-09] MEDS: pantoprazole DR 40 mg Tablet PO (08:28)
[2021-08-09] MEDS: losartan 50 mg Tablet 25 MG PO (08:28)
[2021-08-09] MEDS: chlorPROMazine 50 mg Tablet 100 MG PO ×2 (08:28→12:44)
[2021-08-09] MEDS: CLONazepam 0.5 mg Tablet PO ×2 (08:28→12:44)
[2021-08-09] MEDS: carvedilol 3.125 mg Tablet PO ×2 (08:31→19:52)
--- NOTE | 2021-08-09 09:41 | P.NPUPN_ITS ---
Subjective NPU Subjective: He was found in bed at 9:45 AM. He said the voices are good today. About normal. May be a little more than normal. He is satisfied to only take 200 mg during the day today. Mental Status Exam MSE Comments: This is a 36-year-old obese male who appears approximately his stated age and is in no acute distress. He is pleasant and cooperative with the evaluation. His grooming is fair. He has a few days' growth of hayes. psychomotor activity is mildly decreased. Speech is at a regular rate and rhythm, normal volume, good articulation, not pressured. Alert, oriented X3 Attention and concentration appears to be average. Memory is intact Mood is mildly depressed. Affect is mildly dysphoric. Thought process is logical and goal-directed. Thought content: He reports auditory hallucinations which are improved but no visual hallucinations. No delusions or paranoia are noted. No current suicidal ideation. He denies homicidal ideation. Fund of knowledge is average. Insight and judgment appear to be fair. Impulse control is fair. Cognition: Patient Appearance: Disheveled/Poor Hygiene Level of Consciousness: Awake, Alert, Appropriate and Follows Commands Patient Cognition Impaired: No Ability to Follow Directions: Excellent Patient Orientation (long list): Person, Place, Time and Name Comprehension Ability: No Impairment Hallucination Type: None Delusion Description: Not Present Thought Process: Appropriate Affect: Affect Description: Calm Depressive Symptoms: Hopelessness and Unhappiness Behavior: Patient Behavior: Appropriate and Cooperative Speech Pattern: Appropriate and Clear Vitals/I&O/Wt Last Vital Signs Temp 97.3 F L 08/09/21 06:00 Pulse 74 08/09/21 06:00 Resp 17 08/09/21 06:00 BP 100/63 08/09/21 06:00 Pulse Ox 96 08/09/21 06:00 Weight last 48 hrs Weight 104.326 kg Weight 104.326 kg Data NPU : 08/05/21 16:00 08/05/21 16:00 A&P Assessment and plan (1) Suicidal ideation: Status: Acute (2) Auditory hallucinations: Status: Acute (3) Schizophrenia: Status: Chronic (4) Cluster B personality disorder: Status: Chronic (5) Opiate misuse: Status: Chronic (6) Psychosis: Status: Chronic Plan This is a 36-year-old male with multiple recent suicide attempts who has increasing auditory hallucinations and suicidal ideation but no attempt. Plan: 1. Continue current medication. Temporarily giving 300 mg of Thorazine during the day. We will reduce to 200 mg during the day today. 2. Continue every 15 minute checks for safety. 3. Encourage individual, group and milieu therapies. 4. Encourage sober living treatment after discharge at the highest level of care to which he is willing to commit. 5. We will monitor for safety for himself in the community prior to discharge. Involuntary Hold Information 96 Hour Hold: 96 Hour Involuntary Admission: No Attestations NPU Medical Necessity Statement*: Inpatient hospitalization is medically necessary and the clinically appropriate intervention at this time. We will initiate medications and make changes as indicated. 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
[2021-08-09] MEDS: hyDROXYzine 25 mg Capsule 50 MG PO ×2 (11:39→19:51)
[2021-08-09 13:19] VITALS: BP 105/67; PULSE 90; RESP 15; TEMP 36.6; O2SAT 96
[2021-08-09] MEDS: nicotine 2 mg Gum BUCCAL ×3 (14:58→19:56)
[2021-08-09] MEDS: lurasidone 80 mg Tablet PO (16:28)
[2021-08-09] MEDS: chlorPROMazine 50 mg Tablet 250 MG PO (19:50)
[2021-08-09] MEDS: trazodone 150 mg Tablet 300 MG PO (19:51)
[2021-08-09] MEDS: zolpidem 5 mg Tablet 10 MG PO (19:51)
[2021-08-09 22:00] VITALS: BP 99/70; PULSE 117; RESP 18; TEMP 36.4; O2SAT 92
[2021-08-10] MEDS: haloperidol 5 mg Tablet PO (00:06)
[2021-08-10] MEDS: buprenorphine-naloxone 4-1 mg Film 2 EACH SUBLINGUAL ×2 (05:54→17:09)
[2021-08-10 06:00] VITALS: BP 99/67; PULSE 79; RESP 16; TEMP 36.9; O2SAT 91
[2021-08-10] MEDS: carvedilol 3.125 mg Tablet PO ×2 (08:36→19:37)
[2021-08-10] MEDS: CLONazepam 0.5 mg Tablet PO ×2 (08:37→13:23)
[2021-08-10] MEDS: chlorPROMazine 50 mg Tablet 100 MG PO ×2 (08:37→13:24)
[2021-08-10] MEDS: losartan 50 mg Tablet 25 MG PO (08:37)
[2021-08-10] MEDS: pantoprazole DR 40 mg Tablet PO (08:37)
[2021-08-10] MEDS: aspirin 81 mg EC Tablet PO (08:37)
[2021-08-10] MEDS: nicotine 2 mg Gum BUCCAL ×4 (08:39→19:52)
[2021-08-10] MEDS: hyDROXYzine 25 mg Capsule 50 MG PO ×2 (10:40→19:37)
--- NOTE | 2021-08-10 13:45 | P.NPUPN_ITS ---
Subjective NPU Subjective: He said that he is doing better. The voices were normal or just a little elevated yesterday with the normal dose of Thorazine. Today he says that they are normal again. He says that his uncle says that he can come back home. That is a different story than what we had heard earlier and we will need to confirm. He thinks that the increase in hallucinations probably was due to the stress of his friend leaving. Mental Status Exam MSE Comments: This is a 36-year-old obese male who appears approximately his stated age and is in no acute distress. He is pleasant and cooperative with the evaluation. His grooming is fair. He has a few days' growth of hayes. psychomotor activity is mildly decreased. Speech is at a regular rate and rhythm, normal volume, good articulation, not pressured. Alert, oriented X3 Attention and concentration appears to be average. Memory is intact Mood is mildly depressed. Affect is mildly dysphoric. Thought process is logical and goal-directed. Thought content: He reports auditory hallucinations which are back to his normal. He denies visual hallucinations. No delusions or paranoia are noted. No current suicidal ideation. He denies homicidal ideation. Fund of knowledge is average. Insight and judgment appear to be fair. Impulse control is fair. Cognition: Patient Appearance: Disheveled/Poor Hygiene and No Eye Contact Level of Consciousness: Awake, Alert, Appropriate and Follows Commands Patient Cognition Impaired: No Ability to Follow Directions: Excellent Patient Orientation (long list): Person, Place, Time, Name, Age, Birthday and Day of Week Comprehension Ability: No Impairment Hallucination Type: None Delusion Description: Not Present Thought Process: Appropriate Affect: Affect Description: Calm Depressive Symptoms: Hopelessness and Unhappiness Behavior: Patient Behavior: Cooperative Speech Pattern: Clear Vitals/I&O/Wt Last Vital Signs Temp 98.5 F 08/10/21 06:00 Pulse 79 08/10/21 06:00 Resp 16 08/10/21 06:00 BP 99/67 08/10/21 06:00 Pulse Ox 91 08/10/21 06:00 Weight last 48 hrs Weight 104.326 kg Weight 104.326 kg Data NPU : 08/05/21 16:00 08/05/21 16:00 A&P Assessment and plan (1) Suicidal ideation: Status: Acute (2) Auditory hallucinations: Status: Acute (3) Schizophrenia: Status: Chronic (4) Cluster B personality disorder: Status: Chronic (5) Opiate misuse: Status: Chronic (6) Psychosis: Status: Chronic Plan This is a 36-year-old male with multiple recent suicide attempts who has increasing auditory hallucinations and suicidal ideation but no attempt. Plan: 1. Continue current medication. Temporarily giving 300 mg of Thorazine during the day. We will reduce to 200 mg during the day. 2. Continue every 15 minute checks for safety. 3. Encourage individual, group and milieu therapies. 4. Encourage sober living treatment after discharge at the highest level of care to which he is willing to commit. 5. We will monitor for safety for himself in the community prior to discharge. Involuntary Hold Information 96 Hour Hold: 96 Hour Involuntary Admission: No Attestations NPU Medical Necessity Statement*: Inpatient hospitalization is medically necessary and the clinically appropriate intervention at this time. We will initiate medications and make changes as indicated. 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
[2021-08-10 14:00] VITALS: BP 106/65; PULSE 68; RESP 16; TEMP 36.9; O2SAT 95
[2021-08-10] MEDS: lurasidone 80 mg Tablet PO (16:44)
[2021-08-10] MEDS: chlorPROMazine 50 mg Tablet 250 MG PO (19:36)
[2021-08-10] MEDS: trazodone 150 mg Tablet 300 MG PO (19:37)
[2021-08-10] MEDS: zolpidem 5 mg Tablet 10 MG PO (19:37)
[2021-08-10] MEDS: docusate sodium 100 mg Capsule PO (19:52)
[2021-08-10 20:24] VITALS: BP 115/78; PULSE 86; RESP 16; TEMP 36.8; O2SAT 94
[2021-08-11] MEDS: buprenorphine-naloxone 4-1 mg Film 2 EACH SUBLINGUAL (05:49)
[2021-08-11] MEDS: nicotine 2 mg Gum BUCCAL ×2 (05:50→08:50)
[2021-08-11 06:00] VITALS: BP 92/59; PULSE 82; RESP 16; TEMP 36.4; O2SAT 91
--- NOTE | 2021-08-11 08:23 | P.NPUDS_ITS ---
Diagnoses at Discharge Discharge Diagnosis (1) Suicidal ideation: Status: Acute (2) Auditory hallucinations: Status: Acute (3) Schizophrenia: Status: Chronic (4) Cluster B personality disorder: Status: Chronic (5) Opiate misuse: Status: Chronic (6) Psychosis: Status: Chronic Reason for Visit Reason for Visit: SI Brief History: Shayan Dickson is a 36 year old male admitted to our emergency department with the following report: Patient is a 36-year-old male who presents to ED today with complaint of auditory hallucinations that are commanding him to harm himself.? Patient tells me he does feel depressed and suicidal with a plan to overdose on medications.? Patient does have multiple previous suicide attempts including overdosing on medications that required an ICU stay.? Patient states he is also swallowed razor blades and suicide attempts.? He is not having any visual hallucinations.? He denies drug or alcohol use.? Patient states he is taking his psychiatric medications as prescribed.? He does have an appointment on 08/10 with outpatient psychiatry.? Patient recently completed an extended NPU long stay (patient reports 50 days) for similar complaints. MD complaint: suicidal ideation, feels depressed and other (halluinations) Duration: constant History of same: Yes Associated psychiatric symptoms: depression, suicidal ideation and auditory hallucinations Associated symptoms: Reports auditory hallucinations, depression and suicidal ideation; Deny visual hallucinations or homicidal ideation Treatments prior to arrival: none If self harm: admits thoughts of self harm Details of plan: OD medications He is admitted to the neuropsychiatry unit for definitive treatment of these issues.? He said he had increased auditory hallucinations that built up gradually and became severe on the day before admission.? He started having suicidal ideation.? He did not take an overdose.? He said that he could have taken some ludh-uaf-uoplfto medications but he did not.? He said that he did not have access to his prescription medications.? This is the first time that he came into the hospital without an overdose or some sort of significant suicide attempt.? He said he is happy at his uncle's house.? He would prefer that to a intermediate.? However he understands that that is not as safe the situation as we were hoping.? He cannot think of any increased stressors in or any reason why he would have had more hallucinations.? A friend of his that he met here on the unit had been coming over to his house and spending the night a couple of times over the last week.? [facility] on the same day that he was admitted to the hospital.? It is the last time that he will see her because she is going to fly to [place] very soon.? He did not think that that would have caused him stress and auditory hallucinations however it was nice to have her there and it is a big change for him that she is leaving and he will never see her again.? He agreed to leave the medication unchanged for now and see what happens to the hallucinations in a stable environment. Hospital Course Hospital Course He slowly acclimated to the individual, group and milieu therapies provided. He was continued on his outpatient medications he was given an extra 100 mg of Thorazine during the day for the first 4 days and then did not require it. He tolerated these doses and showed steady improvement during his stay. He was able to contract for safety outside hospital prior to discharge. During the hospitalization, patient had routine laboratory studies which were within normal limits except for few outliers. Additionally there was a general medical evaluation which was also within normal limits and revealed no new acute processes. Discharge Summary: At the time of discharge, lethality was denied and psychosis was resolving. Mood and anxiety were well managed. Patient endorsed a plan to follow-up with the aftercare recommendations of the treatment team. Patient was evaluated and deemed to be absent credible lethality, and had achieved the maximum benefit from an inpatient hospitalization, so was discharged. Involuntary Hold Information 96 Hour Hold: 96 Hour Involuntary Admission: No Mental Status Exam MSE Comments: This is a 36-year-old obese male who appears approximately his stated age and is in no acute distress. He is pleasant and cooperative with the evaluation. His grooming is fair. He has a few days' grow th of hayes. psychomotor activity is mildly decreased. Speech is at a regular rate and rhythm, normal volume, good articulation, not pressured. Alert, oriented X3 Attention and concentration appears to be average. Memory is intact Mood is good. Affect is mildly blunted but euthymic Thought process is logical and goal-directed. Thought content: He reports auditory hallucinations which are back to his normal. He denies visual hallucinations. No delusions or paranoia are noted. No current suicidal ideation. He denies homicidal ideation. Fund of knowledge is average. Insight and judgment appear to be fair. Impulse control is fair. Cognition: Patient Appearance: Appropriate Level of Consciousness: Awake, Alert, Appropriate and Follows Commands Patient Cognition Impaired: No Ability to Follow Directions: Excellent Patient Orientation (long list): Person, Place, Name, Age, Birthday and Day of Week Comprehension Ability: No Impairment Hallucination Type: None Delusion Description: Not Present Thought Process: Appropriate Affect: Affect Description: Calm Depressive Symptoms: Hopelessness and Unhappiness Behavior: Patient Behavior: Appropriate Speech Pattern: Appropriate and Clear Discharge Data Studies Completed and Pending: Laboratory Results WBC 7.5 10^3/uL (4.0- 10.0) 08/05/21 16:00 RBC 5.12 10^6/uL (4.1 -5.3) 08/05/21 16:00 Hgb 14.3 g/dL (11.7-1 6.6) 08/05/21 16:00 Hct 42.3 % (42.0-52.0 ) 08/05/21 16:00 MCV 82.6 fl (80-94) 08/05/21 16:00 MCH 27.9 pg (28.0-34. 0) L 08/05/21 16:00 MCHC 33.8 g/dL (30.0-3 6.0) 08/05/21 16:00 RDW 14.0 % (12.1-15.1 ) 08/05/21 16:00 Plt Count 253 10^3/cmm (130 -400) 08/05/21 16:00 MPV 9.8 fL (7.4-10.4) 08/05/21 16:00 Neut % (Auto) 56.1 % 08/05/21 16:00 Lymph % (Auto) 30.0 % 08/05/21 16:00 Morris % (Auto) 6.1 % 08/05/21 16:00 Eos % (Auto) 7.4 % 08/05/21 16:00 Baso % (Auto) 0.3 % 08/05/21 16:00 Neut # (Auto) 4.23 10^3/uL (1.8 -7.7) 08/05/21 16:00 Lymph # (Auto) 2.3 10^3/uL (0.8- 4.8) 08/05/21 16:00 Morris # (Auto) 0.5 10^3/uL (0.2- 0.9) 08/05/21 16:00 Eos # (Auto) 0.6 10^3/uL (0.0- 0.8) 08/05/21 16:00 Baso # (Auto) 0.0 10^3/uL (0.0- 0.1) 08/05/21 16:00 Nucleated RBC % (a uto) 0 % 08/05/21 16:00 Nucleated RBCs # 0.0 /100WBC 08/05/21 16:00 Sodium 140 mmol/L (136-1 45) 08/05/21 16:00 Potassium 3.9 mmol/L (3.5-5 .1) 08/05/21 16:00 Chloride 106 mmol/L (98-10 7) 08/05/21 16:00 Carbon Dioxide 23 mmol/L (22-29) 08/05/21 16:00 Anion Gap 14.9 (5-19) 08/05/21 16:00 BUN 12 mg/dL (6-20) 08/05/21 16:00 Creatinine 1.1 mg/dL (0.7-1. 2) 08/05/21 16:00 GFR Calculation 75.3 mL/min (90-1 30) L 08/05/21 16:00 Glucose 94 mg/dL (65-115) 08/05/21 16:00 Calculated Osmolal ity 290 mOsm/kg (285- 295) 08/05/21 16:00 Calcium 9.1 mg/dL (8.5-10 .5) 08/05/21 16:00 Total Bilirubin 0.5 mg/dL (0.15-1 .2) 08/05/21 16:00 AST 13 U/L (0-40) 08/05/21 16:00 ALT 8 U/L (0-41) 08/05/21 16:00 Alkaline Phosphata se 96 IU/L (40-130) 08/05/21 16:00 Total Protein 7.2 g/dL (6.6-8.7 ) 08/05/21 16:00 Albumin 4.3 g/dL (3.5-5.2 ) 08/05/21 16:00 Globulin 2.9 g/dL (1.3-4.6 ) 08/05/21 16:00 Salicylates < 0.3 mg/dL (3-10 ) L 08/05/21 16:00 Urine Opiates Scre en Negative ng/mL (N egative) 08/05/21 14:30 Acetaminophen < 5.0 ug/mL (10-3 0) L 08/05/21 16:00 Ur Barbiturates Sc reen Negative ng/mL (N egative) 08/05/21 14:30 Ur Phencyclidine S crn Negative ng/mL (N egative) 08/05/21 14:30 Ur Amphetamines Sc reen Negative ng/mL (N egative) 08/05/21 14:30 U Benzodiazepines Scrn Negative ng/mL (N egative) 08/05/21 14:30 Urine Cocaine Scre en Negative ng/mL (N egative) 08/05/21 14:30 U Marijuana (THC) Screen Negative ng/mL (N egative) 08/05/21 14:30 Ethyl Alcohol < 10 mg/dL (0-10) 08/05/21 16:00 Vitals: Last Vital Signs Temp 97.6 F 08/11/21 06:00 Pulse 82 08/11/21 06:00 Resp 16 08/11/21 06:00 BP 92/59 08/11/21 06:00 Pulse Ox 91 08/11/21 06:00 Discharge Plan Discharge Patient Disposition: Home Condition: Stable Prescriptions: New chlorpromazine 50 mg Tablet 250 mg PO BEDTIME Qty: 0 0RF buprenorphine-naloxone 4-1 mg Film 2 ea sublingual 0600,1800 15 Days Qty: 60 0RF Continued aspirin [Adult Low Dose Aspirin] 81 mg tablet,delayed release (DR/EC) 81 mg PO DAILY 0RF carvedilol 3.125 mg tablet 3.125 mg PO BID Qty: 60 3RF Rx Instructions: must administer with a meal/food pantoprazole 40 mg Tablet,Delayed Release (Dr/Ec) 40 mg PO DAILY 30 Days Qty: 30 1RF losartan 25 mg tablet 25 mg PO DAILY Qty: 30 1RF hydroxyzine pamoate 25 mg Capsule 50 mg PO Q6H PRN (Reason: Anxiety or Sleep) 30 Days Qty: 120 1RF eszopiclone [Lunesta] 1 mg tablet 1 mg PO BEDTIME 30 Days Qty: 30 1RF clonazepam 0.5 mg tablet 0.5 mg PO BID 30 Days Qty: 60 0RF trazodone 150 mg Tablet 300 mg PO BEDTIME 30 Days Qty: 60 1RF Latuda 80 mg Tablet 80 mg PO 1700 30 Days Qty: 30 1RF Changed chlorpromazine 50 mg Tablet 100 mg PO TID PRN (Reason: Agitation) 30 Days Qty: 150 1RF Referrals: Justina Santo MD [Primary Care Provider] - 08/17/21 1:40 pm Discharge Diet: Regular Discharge Activity: Resume usual activity Patient Instructions: Opioid Safety Discharge Attestations NPU Time Spent in Discharge Care*: less than 30 min Specific Discharge Activities: Specific discharge activities: educating cj ent, discussing with case finishing machine adjuster/social workers/dc planners and evaluating patient/reviewing data Status at Discharge: Cognitive status at discharge: cognitively intact , Behavioral status at discharge: cooperative , Coding Level of Care Code Acute [facility] DC note Diagnoses Suicidal ideation R45.851 Auditory hallucinations R44.0 Schizophrenia F20.9 Cluster B personality disorder F60.89 Opiate misuse F11.90 Psychosis F29
[2021-08-11 08:50] VITALS: BP 92/59
[2021-08-11] MEDS: carvedilol 3.125 mg Tablet PO (08:50)
[2021-08-11] MEDS: CLONazepam 0.5 mg Tablet PO (08:50)
[2021-08-11] MEDS: pantoprazole DR 40 mg Tablet PO (08:50)
[2021-08-11] MEDS: aspirin 81 mg EC Tablet PO (08:50)
[2021-08-11] MEDS: losartan 50 mg Tablet 25 MG PO (08:50)
[2021-08-11 08:51] VITALS: BP 92/59
[2021-08-11] MEDS: chlorPROMazine 50 mg Tablet 100 MG PO ×2 (08:51→09:51)
--- NOTE | 2021-08-11 09:07 | PC.SOCIAL ---
IMM UPDATE IMM given to patient and updated. pt voiced understanding
== END 2021-08-11 09:30 | disposition home or self-care (01) | DRG 885 ==
LOC: ER 17:37 → NP 17:51
PROVIDERS: Physician Assistant; Admitting Provider Psychiatry & Neurology Psychiatry; Emergency Provider Family Medicine; PCP Family Medicine; Visit Provider Psychiatry & Neurology Psychiatry
DX: F20.9 Schizophrenia, unspecified (principal); R45.851 Suicidal ideations; F60.89 Other specific personality disorders; F11.90 Opioid use, unspecified, uncomplicated; Z79.01 Long term (current) use of anticoagulants; Z91.51 Personal history of suicidal behavior; Z79.82 Long term (current) use of aspirin; F17.200 Nicotine dependence, unspecified, uncomplicated
CPT/HCPCS: 80053; 80306; 80307; 85025; 97150; 97165; 99285; J0573; Q0161

== ENCOUNTER 2021-08-24 11:23 | Emergency (ER) | payer MEDICARE, MEDICAID, SELFPAY ==
[2021-08-24 11:30] VITALS: BP 123/87; PULSE 93; RESP 16; TEMP 36.8; O2SAT 94
--- NOTE | 2021-08-24 11:41 | ECG_ITS ---
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 Measurements Intervals [place] Rate: 84 P: 61 [place]: 152 QRS: -70 QRSD: 101 T: 65 QT: 381 QTc: 450 Interpretive Statements SINUS RHYTHM PATTERN CONSISTENT WITH PULMONARY DISEASE INCOMPLETE RIGHT BUNDLE BRANCH BLOCK [90+ ms QRS DURATION, TERMINAL R IN V1/V2, 40+ ms S IN I/aVL/V4/V5/V6] LEFT ANTERIOR FASCICULAR BLOCK [QRS AXIS <= -45, QR IN I, RS IN II] Compared to ECG 06/27/2021 09:47:55 Incomplete right bundle-branch block now present Left anterior fascicular block now present Left-axis deviation no longer present Electronically Signed On 08-24-2021 19:42:28 CDT by Maynor Huynh M.D. [id number]
--- NOTE | 2021-08-24 11:41 | XRR_ITS ---
PROCEDURE INFORMATION: Exam: XR Chest Exam date and time: 08/24/2021 11:49 AM Age: 36 years old Clinical indication: Chest wall pain; Additional info: Chest pain TECHNIQUE: Imaging protocol: XR of the chest. Views: 1 view. COMPARISON: CR XR chest 1V portable [id number] 06/02/2021 6:17 PM FINDINGS: Lungs: Unremarkable. No consolidation. Pleural spaces: Unremarkable. No pleural effusion. No pneumothorax. Heart/Mediastinum: Unremarkable. No cardiomegaly. Bones/joints: Unremarkable. XR/XR chest 1V portable [id number] IMPRESSION: No acute findings.
--- NOTE | 2021-08-24 11:42 | W.ED.CHESTPA ---
HPI - Chest Pain General: Chief Complaint: Chest Pain Stated Complaint: chest pains, says hes on heart meds Time Seen by Provider: 08/24/21 11:36 History of Present Illness: Patient comes in with midsternal chest pain, which he describes as sharp, started this morning, constant, no radiation, worse with palpation, not worse with deep inspiration. States he stopped taking his Eliquis a couple of weeks ago. Associated symptoms: Deny abdominal pain, dyspnea, fever(s), nausea, palpitations or vomiting Review of Systems Const: Denies: fever(s) or body aches Eyes: Denies: change in vision or blurry vision ENMT: Denies: throat pain or odynophagia Card: Reports: chest pain; Denies: palpitations Resp: Denies: dyspnea or productive cough GI: Denies: abdominal pain, nausea or vomiting : Denies: flank pain or dysuria Musc: Denies: neck pain or back pain Skin/Breast: Denies: rash or pruritus Neuro: Denies: headache(s) or numbness in extremities Psych: Denies: anxiety or change in appetite Endo: Denies: polyuria or excessive sweating PFSH ED PFSH: Medical History Abnormal ECG Acute pancreatitis (~12/2020) History of cardiovascular stress test (~01/2021) History of foreign body ingestion intentional, requiring invasive intervention Non-ischemic cardiomyopathy Opiate misuse Psychiatric care QT prolongation history of medication induced QT prolongation Schizophrenia Suicide attempt Suicide attempt by drug overdose Ulcerative colitis Surgical History History of appendectomy History of esophagogastroduodenoscopy (EGD) Social History Smoking and tobacco status: current every day smoker Alcohol intake: current Physical Exam Const: COMMON NORMALS: no acute distress, patient oriented x3, healthy appearing and alert HENMT: COMMON NORMALS: normocephalic and atraumatic HEAD & SCALP: normocephalic and atraumatic Eye: COMMON NORMALS: Equal, round and reactive pupils present and EOMs intact bilaterally PUPIL: Yes Equal, round and reactive pupils present Neck/C-Spine: COMMON NORMALS: full ROM and supple Resp: COMMON NORMALS: normal respiratory effort, No retractions and No use of accessory muscles Cardio: COMMON NORMALS: regular rate and regular rhythm RATE: regular rate RHYTHM: regular rhythm GI: COMMON NORMALS: Normal to inspection, nondistended, normoactive bowel sounds present, Soft to palpation and non-tender PALPATION: Yes Soft to palpation Back/Pelvis: COMMON NORMALS: thoracic and lumbar spine normal to inspection and no thoracic nor lumbar tenderness Extremity: COMMON NORMALS: normal to inspection and full ROM Neuro: COMMON NORMALS: patient oriented x3 SENSORIUM/ORIENTATION: Yes alert Psych: COMMON NORMALS: mental status grossly normal and cooperative Skin: COMMON NORMALS: no rashes or lesions noted and no wounds GENERAL SKIN EXAM: no rashes or lesions noted Course Vital Signs: Vital signs: Vital Signs Temperature 98.2 F 08/24/21 11:30 Pulse Rate 87 08/24/21 12:06 Respiratory Rate 16 08/24/21 12:06 Blood Pressure 115/57 08/24/21 12:06 Pulse Oximetry 92 08/24/21 12:06 MDM - Chest Pain Medical Decision Making Patient comes in with midsternal chest pain, which he describes as sharp, started this morning, constant, no radiation, worse with palpation, not worse with deep inspiration. States he stopped taking his Eliquis a couple of weeks ago. Physical exam is unremarkable. Will check labs, x-ray, and reassess. On reassessment I talked to the patient about the test results. Will discharge home at this time with precautions to return for worsening or changing symptoms. Lab Data : 08/24/21 12:03 08/24/21 12:03 Radiology Impressions Chest X-Ray 08/24/21 11:41 IMPRESSION: No acute findings. Laboratory Results WBC 9.4 10^3/uL (4.0-10.0) 08/24/21 12:03 RBC 5.41 10^6/uL (4.1-5.3) H 08/24/21 12:03 Hgb 14.9 g/dL (11.7-16.6) 08/24/21 12:03 Hct 45.0 % (42.0-52.0) 08/24/21 12:03 MCV 83.2 fl (80-94) 08/24/21 12:03 MCH 27.5 pg (28.0-34.0) L 08/24/21 12:03 MCHC 33.1 g/dL (30.0-36.0) 08/24/21 12:03 RDW 14.0 % (12.1-15.1) 08/24/21 12:03 Plt Count 273 10^3/cmm (130-400) 08/24/21 12:03 MPV 9.8 fL (7.4-10.4) 08/24/21 12:03 Neut % (Auto) 63.4 % 08/24/21 12:03 Lymph % (Auto) 24.5 % 08/24/21 12:03 [place] % (Auto) 5.8 % 08/24/21 12:03 Eos % (Auto) 5.8 % 08/24/21 12:03 Baso % (Auto) 0.4 % 08/24/21 12:03 Neut # (Auto) 5.95 10^3/uL (1.8-7.7) 08/24/21 12:03 Lymph # (Auto) 2.3 10^3/uL (0.8-4.8) 08/24/21 12:03 [place] # (Auto) 0.5 10^3/uL (0.2-0.9) 08/24/21 12:03 Eos # (Auto) 0.5 10^3/uL (0.0-0.8) 08/24/21 12:03 Baso # (Auto) 0.0 10^3/uL (0.0-0.1) 08/24/21 12:03 Nucleated RBC % (auto) 0 % 08/24/21 12:03 Nucleated RBCs # 0.0 /100WBC 08/24/21 12:03 Sodium 140 mmol/L (136-145) 08/24/21 12:03 Potassium 4.5 mmol/L (3.5-5.1) 08/24/21 12:03 Chloride 102 mmol/L (98-107) 08/24/21 12:03 Carbon Dioxide 28 mmol/L (22-29) 08/24/21 12:03 Anion Gap 14.5 (5-19) 08/24/21 12:03 BUN 10 mg/dL (6-20) 08/24/21 12:03 Creatinine 1.1 mg/dL (0.7-1.2) 08/24/21 12:03 GFR Calculation 75.3 mL/min (90-130) L 08/24/21 12:03 Glucose 79 mg/dL (65-115) 08/24/21 12:03 Calculated Osmolality 288 mOsm/kg (285-295) 08/24/21 12:03 Calcium 9.5 mg/dL (8.5-10.5) 08/24/21 12:03 Troponin T Baseline 9 ng/L (0-15) 08/24/21 12:03 Discharge Plan Discharge Patient Disposition: Home Clinical Impression: Nonspecific chest pain Condition: Stable Prescriptions: No Action aspirin [Adult Low Dose Aspirin] 81 mg tablet,delayed release (DR/EC) 81 mg PO DAILY 0RF carvedilol 3.125 mg tablet 3.125 mg PO BID Qty: 60 3RF Rx Instructions: must administer with a meal/food pantoprazole 40 mg Tablet,Delayed Release (Dr/Ec) 40 mg PO DAILY 30 Days Qty: 30 1RF losartan 25 mg tablet 25 mg PO DAILY Qty: 30 1RF hydroxyzine pamoate 25 mg Capsule 50 mg PO Q6H PRN (Reason: Anxiety or Sleep) 30 Days Qty: 120 1RF eszopiclone [Lunesta] 1 mg tablet 1 mg PO BEDTIME 30 Days Qty: 30 1RF chlorpromazine 50 mg Tablet 250 mg PO BEDTIME Qty: 0 0RF buprenorphine-naloxone 4-1 mg Film 2 ea sublingual 0600,1800 15 Days Qty: 60 0RF clonazepam 0.5 mg tablet 0.5 mg PO BID 30 Days Qty: 60 0RF trazodone 150 mg Tablet 300 mg PO BEDTIME 30 Days Qty: 60 1RF chlorpromazine 50 mg Tablet 100 mg PO TID PRN (Reason: Agitation) 30 Days Qty: 150 1RF Latuda 80 mg Tablet 80 mg PO 1700 30 Days Qty: 30 1RF Discharge Orders: Discharge ED (Routine); Ordered 08/24/21 Ordered By: Larry Nam Referrals: Justina Santo MD [Primary Care Provider] - Coding Level of Care Code ED Brew House Supervisor for Chg 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
[2021-08-24 12:06] VITALS: BP 115/57; PULSE 87; RESP 16; O2SAT 92
[2021-08-24] MEDS: lidocaine 2% viscous 15 ML, aluminum-mag hydrox-simethicon 30 ML, sucralfate oral liq 1 GM PO (12:13)
[2021-08-24 12:14] LABS: Basophils % 0.4 %; Eosinophils # 0.5 10^3/uL (0.0-0.8); Eosinophils % 5.8 %; Hemoglobin 14.9 g/dL (11.7-16.6); Lymphocytes # 2.3 10^3/uL (0.8-4.8); Lymphocytes % 24.5 %; Mean Corpuscular HGB Conc 33.1 g/dL (30.0-36.0); Mean Corpuscular Hemoglobin 27.5 pg (28.0-34.0); Mean Corpuscular Volume 83.2 fl (80-94); Mean Platelet Volume 9.8 fL (7.4-10.4); Monocytes # 0.5 10^3/uL (0.2-0.9); Monocytes % 5.8 %; Neutrophils # 5.95 10^3/uL (1.8-7.7); Neutrophils % 63.4 %; Nucleated Red Blood Cells % 0 %; Platelet Count 273 10^3/cmm (130-400); Red Blood Count 5.41 10^6/uL (4.1-5.3); White Blood Count 9.4 10^3/uL (4.0-10.0)
[2021-08-24 12:33] LABS: Anion Gap 14.5 (5-19); Blood Urea Nitrogen 10 mg/dL (6-20); Calcium 9.5 mg/dL (8.5-10.5); Carbon Dioxide 28 mmol/L (22-29); Chloride 102 mmol/L (98-107); Glomerular Filtration Rate 75.3 mL/min (90-130); Glucose 79 mg/dL (65-115); Osmolality Calculated 288 mOsm/kg (285-295); Potassium 4.5 mmol/L (3.5-5.1); Sodium 140 mmol/L (136-145)
[2021-08-24 12:35] LABS: Troponin(5th) Baseline 9 ng/L (0-15)
[2021-08-24 13:23] VITALS: TEMP 36.3
== END 2021-08-24 13:25 | disposition home or self-care (01) ==
PROVIDERS: Emergency Provider Emergency Medicine; PCP Family Medicine
DX: R07.9 Chest pain, unspecified (principal)
CPT/HCPCS: 71045; 80048; 84484; 85025; 93005; 99284

== ENCOUNTER 2021-09-04 08:59 | Inpatient (IN) | payer MEDICARE, MEDICAID, SELFPAY ==
[2021-09-04] VITALS (7 sets, daily range): BP systolic 92–114; BP diastolic 55–79; PULSE 71–91; RESP 16–24; TEMP 36.9–37; O2SAT 92–95; BMI 33.5
--- NOTE | 2021-09-04 10:05 | ECG_ITS ---
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 Measurements Intervals [place] Rate: 88 P: 55 [place]: 156 QRS: -75 QRSD: 95 T: 67 QT: 385 QTc: 468 Interpretive Statements SINUS RHYTHM LOW QRS VOLTAGE IN PRECORDIAL LEADS [QRS DEFLECTION < 1.0 mV IN CHEST LEADS] PATTERN CONSISTENT WITH PULMONARY DISEASE LEFT ANTERIOR FASCICULAR BLOCK [QRS AXIS <= -45, QR IN I, RS IN II] Compared to ECG 08/24/2021 11:35:20 Low QRS voltage now present Incomplete right bundle-branch block no longer present Electronically Signed On 09-04-2021 17:00:19 CDT by Maynor Huynh M.D. [id number]
--- NOTE | 2021-09-04 10:05 | XR_ITS ---
WS: [id number] Exam: XR chest 1V portable [id number] Date/Time of Exam: 09/04/2021 10:05 AM Reason For Exam: cp Comparison 08/24/2021. Findings: The lungs are clear and fully expanded. Costophrenic angles are sharp. No infiltrates. Bronchovascula r relief appears normal. Cardiac silhouette is unremarkable. Bony elements are intact. XR/XR chest 1V portable [id number] IMPRESSION: Unremarkable chest radiograph.
--- NOTE | 2021-09-04 10:11 | ED.C_ITS ---
HPI - Psych General: Chief Complaint: Psychiatric Symptoms Stated Complaint: took too many sleeping pills Time Seen by Provider: 09/04/21 09:36 History of Present Illness: Patient comes in with suicidal ideation. States he tried to kill himself this morning by taking 80 Benadryl tablets and 10 trazodone tablets. States he took these between 3 AM and 6 AM this morning which is about 4 hours prior to my evaluation. When I ask him if he really took that many medications because he is not showing any signs of overdose he states he does not remember if he did or not. Associated symptoms: Reports suicidal ideation Review of Systems Const: Denies: fever(s) or body aches Eyes: Denies: change in vision or blurry vision ENMT: Denies: throat pain or odynophagia Card: Denies: chest pain or palpitations Resp: Denies: dyspnea or productive cough GI: Denies: abdominal pain, nausea or vomiting : Denies: flank pain or dysuria Musc: Denies: neck pain or back pain Skin/Breast: Denies: rash or pruritus Neuro: Denies: headache(s) or numbness in extremities Psych: Reports: suicidal ideation; Denies: anxiety or change in appetite Endo: Denies: polyuria or excessive sweating PFSH ED PFSH: Medical History Abnormal ECG Acute pancreatitis (~12/2020) History of cardiovascular stress test (~01/2021) History of foreign body ingestion intentional, requiring invasive intervention Non-ischemic cardiomyopathy Opiate misuse Psychiatric care QT prolongation history of medication induced QT prolongation Schizophrenia Suicide attempt Suicide attempt by drug overdose Ulcerative colitis Surgical History History of appendectomy History of esophagogastroduodenoscopy (EGD) Social History Smoking and tobacco status: current every day smoker Alcohol intake: current Physical Exam Const: COMMON NORMALS: no acute distress, patient oriented x3, healthy appearing and alert HENMT: COMMON NORMALS: normocephalic and atraumatic HEAD & SCALP: normocephalic and atraumatic Eye: COMMON NORMALS: Equal, round and reactive pupils present and EOMs intact bilaterally PUPIL: Yes Equal, round and reactive pupils present Neck/C-Spine: COMMON NORMALS: full ROM and supple Resp: COMMON NORMALS: normal respiratory effort, No retractions and No use of accessory muscles Cardio: COMMON NORMALS: regular rate and regular rhythm RATE: regular rate RHYTHM: regular rhythm GI: COMMON NORMALS: Normal to inspection, nondistended, normoactive bowel sounds present, Soft to palpation and non-tender PALPATION: Yes Soft to palpation Back/Pelvis: COMMON NORMALS: thoracic and lumbar spine normal to inspection and no thoracic nor lumbar tenderness Extremity: COMMON NORMALS: normal to inspection and full ROM Neuro: COMMON NORMALS: patient oriented x3 SENSORIUM/ORIENTATION: Yes alert Psych: COMMON NORMALS: mental status grossly normal and cooperative Skin: COMMON NORMALS: no rashes or lesions noted and no wounds GENERAL SKIN EXAM: no rashes or lesions noted Course Vital Signs: Vital signs: Vital Signs Temperature 98.6 F 09/04/21 09:26 Pulse Rate 74 09/04/21 11:52 Respiratory Rate 16 09/04/21 11:52 Blood Pressure 103/65 09/04/21 11:52 Pulse Oximetry 92 09/04/21 11:52 [facility] - Psych Medical Decision Making Patient comes in with suicidal ideation. States he tried to kill himself this morning by taking 80 Benadryl tablets and 10 trazodone tablets. States he took these between 3 AM and 6 AM this morning which is about 4 hours prior to my evaluation. On physical exam he is completely asymptomatic. He is showing no signs of overdose on either Benadryl or trazodone. Will check labs, continue to observe, check EKG, keep him on a solderer barrel ribs, and reassess. On reassessment the patient continues to show no signs of overdose. He wakes up immediately and follows commands and answers questions appropriately. I discussed the case with psychiatry who will admit for further work-up and treatment. Lab Data : 09/04/21 09:50 09/04/21 09:50 Radiology Impressions Chest X-Ray 09/04/21 10:05 IMPRESSION: Unremarkable chest radiograph. Laboratory Results WBC 9.3 10^3/uL (4.0-10.0) 09/04/21 09:50 RBC 5.70 10^6/uL (4.1-5.3) H 09/04/21 09:50 Hgb 15.6 g/dL (11.7-16.6) 09/04/21 09:50 Hct 45.9 % (42.0-52.0) 09/04/21 09:50 MCV 80.5 fl (80-94) 09/04/21 09:50 MCH 27.4 pg (28.0-34.0) L 09/04/21 09:50 MCHC 34.0 g/dL (30.0-36.0) 09/04/21 09:50 RDW 13.5 % (12.1-15.1) 09/04/21 09:50 Plt Count 268 10^3/cmm (130-400) 09/04/21 09:50 MPV 10.4 fL (7.4-10.4) 09/04/21 09:50 Neut % (Auto) 69.3 % 09/04/21 09:50 Lymph % (Auto) 19.4 % 09/04/21 09:50 [place] % (Auto) 6.7 % 09/04/21 09:50 Eos % (Auto) 4.2 % 09/04/21 09:50 Baso % (Auto) 0.3 % 09/04/21 09:50 Neut # (Auto) 6.43 10^3/uL (1.8-7.7) 09/04/21 09:50 Lymph # (Auto) 1.8 10^3/uL (0.8-4.8) 09/04/21 09:50 [place] # (Auto) 0.6 10^3/uL (0.2-0.9) 09/04/21 09:50 Eos # (Auto) 0.4 10^3/uL (0.0-0.8) 09/04/21 09:50 Baso # (Auto) 0.0 10^3/uL (0.0-0.1) 09/04/21 09:50 Nucleated RBC % (auto) 0 % 09/04/21 09:50 Nucleated RBCs # 0.0 /100WBC 09/04/21 09:50 Sodium 138 mmol/L (136-145) 09/04/21 09:50 Potassium 4.0 mmol/L (3.5-5.1) 09/04/21 09:50 Chloride 100 mmol/L (98-107) 09/04/21 09:50 Carbon Dioxide 25 mmol/L (22-29) 09/04/21 09:50 Anion Gap 17.0 (5-19) 09/04/21 09:50 BUN 8 mg/dL (6-20) 09/04/21 09:50 Creatinine 1.1 mg/dL (0.7-1.2) 09/04/21 09:50 GFR Calculation 75.3 mL/min (90-130) L 09/04/21 09:50 Glucose 86 mg/dL (65-115) 09/04/21 09:50 Calculated Osmolality 284 mOsm/kg (285-295) L 09/04/21 09:50 Calcium 9.7 mg/dL (8.5-10.5) 09/04/21 09:50 Total Bilirubin 0.4 mg/dL (0.15-1.2) 09/04/21 09:50 AST 18 U/L (0-40) 09/04/21 09:50 ALT 12 U/L (0-41) 09/04/21 09:50 Alkaline Phosphatase 96 IU/L (40-130) 09/04/21 09:50 Total Protein 8.2 g/dL (6.6-8.7) 09/04/21 09:50 Albumin 5.1 g/dL (3.5-5.2) 09/04/21 09:50 Globulin 3.1 g/dL (1.3-4.6) 09/04/21 09:50 Urine Color Yellow (Yellow) 09/04/21 09:35 Urine Appearance Clear (CLEAR) 09/04/21 09:35 Urine pH 5 (5-7) 09/04/21 09:35 Ur Specific [place] 1.030 (1.005-1.030) 09/04/21 09:35 Urine Protein Neg (Negative) 09/04/21 09:35 Urine Glucose (UA) Norm (Normal) 09/04/21 09:35 Urine Ketones Negative (Negative) 09/04/21 09:35 Urine Blood Neg (Negative) 09/04/21 09:35 Urine Nitrate Negative (Negative) 09/04/21 09:35 Urine Bilirubin 1+ (Negative) H 09/04/21 09:35 Urine Urobilinogen 1 mg/dL (Negative) H 09/04/21 09:35 Ur Leukocyte Esterase Negative (Negative) 09/04/21 09:35 Salicylates < 0.3 mg/dL (3-10) L 09/04/21 09:50 Urine Opiates Screen Negative ng/mL (Negative) 09/04/21 09:35 Acetaminophen < 5.0 ug/mL (10-30) L 09/04/21 09:50 Ur Barbiturates Screen Negative ng/mL (Negative) 09/04/21 09:35 Ur Phencyclidine Scrn Negative ng/mL (Negative) 09/04/21 09:35 Ur Amphetamines Screen Negative ng/mL (Negative) 09/04/21 09:35 U Benzodiazepines Scrn Negative ng/mL (Negative) 09/04/21 09:35 Urine Cocaine Screen Negative ng/mL (Negative) 09/04/21 09:35 U Marijuana (THC) Screen Negative ng/mL (Negative) 09/04/21 09:35 Ethyl Alcohol < 10 mg/dL (0-10) 09/04/21 09:50 Discharge Plan Discharge Patient Disposition: Admitted As Inpatient Clinical Impression: Suicidal ideation Condition: Stable Coding Level of Care Code ED Carpenter Supervisor Wooden Ship for Jordan 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
[2021-09-04 10:20] LABS: Basophils % 0.3 %; Eosinophils # 0.4 10^3/uL (0.0-0.8); Eosinophils % 4.2 %; Hematocrit 45.9 % (42.0-52.0); Hemoglobin 15.6 g/dL (11.7-16.6); Lymphocytes # 1.8 10^3/uL (0.8-4.8); Lymphocytes % 19.4 %; Mean Corpuscular Hemoglobin 27.4 pg (28.0-34.0); Mean Corpuscular Volume 80.5 fl (80-94); Mean Platelet Volume 10.4 fL (7.4-10.4); Monocytes # 0.6 10^3/uL (0.2-0.9); Monocytes % 6.7 %; Neutrophils # 6.43 10^3/uL (1.8-7.7); Neutrophils % 69.3 %; Nucleated Red Blood Cells % 0 %; Platelet Count 268 10^3/cmm (130-400); Red Cell Distribution Width 13.5 % (12.1-15.1); White Blood Count 9.3 10^3/uL (4.0-10.0)
[2021-09-04 10:28] LABS: Add Urine Microscopic? NO; Charge for UA Resulting for Rev
[2021-09-04 10:33] LABS: Alanine Aminotransferase 12 U/L (0-41); Albumin Level 5.1 g/dL (3.5-5.2); Alkaline Phosphatase 96 IU/L (40-130); Aspartate Amino Transferase 18 U/L (0-40); Blood Urea Nitrogen 8 mg/dL (6-20); Calcium 9.7 mg/dL (8.5-10.5); Carbon Dioxide 25 mmol/L (22-29); Chloride 100 mmol/L (98-107); Globulin 3.1 g/dL (1.3-4.6); Glomerular Filtration Rate 75.3 mL/min (90-130); Glucose 86 mg/dL (65-115); Osmolality Calculated 284 mOsm/kg (285-295); Sodium 138 mmol/L (136-145); Total Bilirubin 0.4 mg/dL (0.15-1.2); Total Protein 8.2 g/dL (6.6-8.7)
[2021-09-04 10:34] LABS: Bilirubin Urine 1+ (Negative); Blood Urine Neg (Negative); Glucose Urine UA Norm (Normal); Ketones Urine Negative (Negative); Leukocyte Esterase Urine Negative (Negative); Nitrate Urine Negative (Negative); Protein Urine Neg (Negative); Urine Appearance Clear (CLEAR); Urine Color Yellow (Yellow); Urobilinogen Urine 1 mg/dL (Negative); pH Urine 5 (5-7)
[2021-09-04 10:37] LABS: Acetaminophen < 5.0 ug/mL (10-30); Alcohol Level < 10 mg/dL (0-10); Salicylate < 0.3 mg/dL (3-10)
[2021-09-04 10:39] LABS: Amphetamines Screen Urine Negative (Negative); Barbiturates Screen Urine Negative (Negative); Benzodiazepines Screen Urine Negative (Negative); Cocaine Screen Urine Negative (Negative); Opiate Screen Urine Negative (Negative); PCP Screen Urine Negative (Negative); THC Screen Urine Negative (Negative)
--- NOTE | 2021-09-04 11:43 | PC.NURSE ---
This nurse contacted poison control. Poison control stated peak on Benadryl is 2-3 hours, and thorazine is 2-4 hours. Instructed to monitor symptoms. Provider notified.
--- NOTE | 2021-09-04 20:52 | PC.NURSE ---
ADMISSION PER ER- Patient comes in with suicidal ideation. States he tried to kill himself this morning by taking 80 Benadryl tablets and 10 trazodone tablets. States he took these between 3 AM and 6 AM this morning which is about 4 hours prior to my evaluation. When I ask him if he really took that many medications because he is not showing any signs of overdose he states he does not remember if he did or not. Associated symptoms: Reports suicidal ideation. UPON ARRIVAL TO NPU PT IS CALM AND COOPERATIVE. HAS FLAT AFFECT AND MINIMAL INTERACTION. IS COOPERATIVE WITH ASSESSMENT. REPORTS THAT HE DOES NOT FEEL HIS MEDS ARE EFFECTIVE ANYMORE FOR HIS AH. STATES THAT THEY HAVE BEEN BAD FOR ABOUT A WEEK AND TELL HIM TO KILL SELF. STATES THAT HE DOES NOT EXACTLY WANT TO BUT FEELS HE HAS TO ATTEMPT. 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 UDS NEGATIVE IN ER.
[2021-09-04] MEDS: trazodone 150 mg Tablet 300 MG PO (22:25)
[2021-09-04] MEDS: hyDROXYzine 25 mg Capsule 50 MG PO (22:25)
[2021-09-04] MEDS: chlorPROMazine 50 mg Tablet 250 MG PO (22:25)
[2021-09-04] MEDS: zolpidem 5 mg Tablet 10 MG PO (22:25)
[2021-09-05 06:00] VITALS: BP 115/75; PULSE 72; RESP 16; TEMP 36.8; O2SAT 93
[2021-09-05] MEDS: buprenorphine-naloxone 4-1 mg Film 2 EACH SUBLINGUAL ×2 (06:34→17:09)
[2021-09-05] MEDS: chlorPROMazine 50 mg Tablet 100 MG PO (06:34)
[2021-09-05] MEDS: pantoprazole DR 40 mg Tablet PO (06:41)
--- NOTE | 2021-09-05 09:10 | W.PM.NPUH&PS ---
Providers/Chief Complaint Admitting Physician: Noel House MD Primary Care Provider: Justina Santo MD Chief Complaint: took too many sleeping pills HPI NPU History of Present Illness Shayan Dickson is a 36 year old male admitted through our emergency department with the following report: Patient comes in with suicidal ideation.? States he tried to kill himself this morning by taking 80 Benadryl tablets and 10 trazodone tablets.? States he took these between 3 AM and 6 AM this morning which is about 4 hours prior to my evaluation.? When I ask him if he really took that many medications because he is not showing any signs of overdose he states he does not remember if he did or not. Associated symptoms: Reports suicidal ideation He was admitted to the neuropsychiatry unit for definitive treatment of these issues. He says that his meds stopped working and he started hearing voices. He told his uncle and his uncle was annoyed and he became convinced that his uncle did not want to be his guardian anymore. He realized that his uncle did not want him living there anymore. That made his anxiety and the hallucinations worse. He says that he took an overdose of 80 Benadryl tablets as well as 15 of his Thorazine tablets. He says that he did think that that would kill him. He was not groggy in the emergency room but says that he did fall asleep after the doctor talked with him and has been groggy since then. He is quite groggy this morning still. He had difficulty waking up to talk with me. He says that when he was released from the last hospitalization he was only given Thorazine 100 mg 3 times a day. That was because it was the change that was made. He said they could not find the refills on the 250 mg he had been prescribed previously. He said that he did not talk to his uncle or call his physician to see if he could get a refill. He said that he was worried that the voices would come back but did not do anything about it. He says that the voices came back before his uncle was annoyed with him however it happened quickly thereafter. He says he is agreeable to going back to his previous dose of Thorazine as well as adjusting his medications the same as they were when he was here in the hospital last time. We will work with the social workers when they come in on Tuesday to see what needs to happen with the guardianship and place to live. Below is the discharge summary from his most recent admission in July of this year. Discharge Diagnosis (1) Suicidal ideation: ?Status:?Acute (2) Auditory hallucinations: ?Status:?Acute (3) Schizophrenia: ?Status:?Chronic (4) Cluster B personality disorder: ?Status:?Chronic (5) Opiate misuse: ?Status:?Chronic (6) Psychosis: ?Status:?Chronic SI? Brief History: Shayan Dickson is a 36 year old male admitted to our emergency department with the following report: Patient is a 36-year-old male who presents to ED today with complaint of auditory hallucinations that are commanding him to harm himself.? Patient tells me he does feel depressed and suicidal with a plan to overdose on medications.? Patient does have multiple previous suicide attempts including overdosing on medications that required an ICU stay.? Patient states he is also swallowed razor blades and suicide attempts.? He is not having any visual hallucinations.? He denies drug or alcohol use.? Patient states he is taking his psychiatric medications as prescribed.? He does have an appointment on 08/10 with outpatient psychiatry.? Patient recently completed an extended NPU long stay (patient reports 50 days) for similar complaints. MD complaint: suicidal ideation, feels depressed and other (halluinations) Duration: constant History of same: Yes Associated psychiatric symptoms: depression, suicidal ideation and auditory hallucinations Associated symptoms: Reports auditory hallucinations, depression and suicidal ideation; Deny visual hallucinations or homicidal ideation Treatments prior to arrival: none If self harm: admits thoughts of self harm Details of plan: OD medications He is admitted to the neuropsychiatry unit for definitive treatment of these issues.? He said he had increased auditory hallucinations that built up gradually and became severe on the day before admission.? He started having suicidal ideation.? He did not take an overdose.? He said that he could have taken some aemo-hiv-lzecjww medications but he did not.? He said that he did not have access to his prescription medications.? This is the first time that he came into the hospital without an overdose or some sort of significant suicide attempt.? He said he is happy at his uncle's house.? He would prefer that to a senior care.? However he understands that that is not as safe the situation as we were hoping.? He cannot think of any increased stressors in or any reason why he would have had more hallucinations.? A friend of his that he met here on the unit had been coming over to his house and spending the night a couple of times over the last week.? They took her back to the care home on the same day that he was admitted to the hospital.? It is the last time that he will see her because she is going to fly to [place] very soon.? He did not think that that would have caused him stress and auditory hallucinations however it was nice to have her there and it is a big change for him that she is leaving and he will never see her again.? He agreed to leave the medication unchanged for now and see what happens to the hallucinations in a stable environment. Hospital Course He slowly acclimated to the individual, group and milieu therapies provided.? He was continued on his outpatient medications he was given an extra 100 mg of Thorazine during the day for the first 4 days and then did not require it.? He tolerated these doses and showed steady improvement during his stay. ? He was able to contract for safety outside hospital prior to discharge.? During the hospitalization, patient had routine laboratory studies which were within normal limits except for few outliers.? Additionally there was a general medical evaluation which was also within normal limits and revealed no new acute processes. Discharge Summary: At the time of discharge, lethality was denied and psychosis was resolving.? Mood and anxiety were well managed.? Patient endorsed a plan to follow-up with the aftercare recommendations of the treatment team.? Patient was evaluated and deemed to be absent credible lethality, and had achieved the maximum benefit from an inpatient hospitalization, so was discharged. Prescriptions: New ? chlorpromazine 50 mg Tablet ?? 250 mg PO BEDTIME Qty: 0 0RF ? buprenorphine-naloxone 4-1 mg Film ?? 2 ea sublingual 0600,1800 15 Days Qty: 60 0RF Continued ? aspirin [Adult Low Dose Aspirin] 81 mg tablet,delayed release (/EC) ?? 81 mg PO DAILY 0RF ? carvedilol 3.125 mg tablet ?? 3.125 mg PO BID Qty: 60 3RF ?? Rx Instructions: ?? must administer with a meal/food ? pantoprazole 40 mg Tablet,Delayed Release (Dr/Ec) ?? 40 mg PO DAILY 30 Days Qty: 30 1RF ? losartan 25 mg tablet ?? 25 mg PO DAILY Qty: 30 1RF ? hydroxyzine pamoate 25 mg Capsule ?? 50 mg PO Q6H PRN (Reason: Anxiety or Sleep) 30 Days Qty: 120 1RF ? eszopiclone [Lunesta] 1 mg tablet ?? 1 mg PO BEDTIME 30 Days Qty: 30 1RF ? clonazepam 0.5 mg tablet ?? 0.5 mg PO BID 30 Days Qty: 60 0RF ? trazodone 150 mg Tablet ?? 300 mg PO BEDTIME 30 Days Qty: 60 1RF ? Latuda 80 mg Tablet ?? 80 mg PO 1700 30 Days Qty: 30 1RF Changed ? chlorpromazine 50 mg Tablet ?? 100 mg PO TID PRN (Reason: Agitation) 30 Days Qty: 150 1RF Meds NPU Home Medications Medication Instructions Recorded Confirmed Last Taken Type aspirin 81 mg tablet,delayed 81 mg PO DAILY 04/06/21 09/04/21 09/03/21 History release (Adult Low Dose Aspirin) eszopiclone 1 mg tablet (Lunesta) 1 mg PO BEDTIME 30 Days #30 tab 07/23/21 09/04/21 09/03/21 Rx hydroxyzine pamoate 25 mg capsule 50 mg PO Q6H PRN 30 Days #120 cap 07/23/21 09/04/21 09/03/21 Rx losartan 25 mg tablet 25 mg PO DAILY #30 tab 07/23/21 09/04/21 09/03/21 Rx pantoprazole 40 mg tablet,delayed 40 mg PO DAILY 30 Days #30 tab 07/23/21 09/04/21 09/03/21 Rx release carvedilol 3.125 mg tablet 3.125 mg PO BID #60 tab 07/30/21 09/04/21 09/03/21 Rx chlorpromazine 50 mg tablet 100 mg PO TID PRN 30 Days #150 tab 08/11/21 09/04/21 09/03/21 Rx chlorpromazine 50 mg tablet 250 mg PO BEDTIME #0 tab 08/11/21 09/04/21 09/04/21 Rx clonazepam 0.5 mg tablet 0.5 mg PO BID 30 Days #60 tab 08/11/21 09/04/21 09/03/21 Rx lurasidone 80 mg tablet (Latuda) 80 mg PO 1700 30 Days #30 tab 08/11/21 09/04/21 09/03/21 Rx trazodone 150 mg tablet 300 mg PO BEDTIME 30 Days #60 tab 08/11/21 09/04/21 09/04/21 Rx buprenorphine 4 mg-naloxone 1 mg 2 film SUBLINGUAL BID@0600,1800 09/04/21 09/04/21 09/03/21 History sublingual film chlorpromazine 50 mg tablet 100 mg PO DAILY@0600 09/05/21 09/05/21 09/03/21 History Allergies Allergy/AdvReac Type Severity Reaction Status Date / Time mushroom Allergy Unknown Unknown Verified 07/30/21 14:10 escitalopram [From Lexapro] Allergy ALGY-Anaphy Verified 07/30/21 14:10 laxis NSAIDS (Non-Steroidal Allergy ADR-Abdominal Verified 07/30/21 14:10 Anti-Inflamma Pain venlafaxine [From Effexor] Allergy ALGY-Anaphy Verified 07/30/21 14:10 laxis PFSH NPU PFSH: Medical History Abnormal ECG Acute pancreatitis (~12/2020) History of cardiovascular stress test (~01/2021) History of foreign body ingestion intentional, requiring invasive intervention Non-ischemic cardiomyopathy Opiate misuse Psychiatric care QT prolongation history of medication induced QT prolongation Schizophrenia Suicide attempt Suicide attempt by drug overdose Ulcerative colitis Surgical History History of appendectomy History of esophagogastroduodenoscopy (EGD) Social History Smoking and tobacco status: current every day smoker Alcohol intake: current Mental Status Exam MSE Comments: This is a 36-year-old obese male who appears approximately his stated age and is in no acute distress. He is very sedated from his overdose more than 24 hours ago. He is poorly groomed and in hospital scrubs. He was found in bed at 9 AM. psychomotor activity very decreased. Speech is at a regular rate and rhythm, normal volume, good articulation, not pressured. Alert, oriented X3 Attention and concentration diminished at this time. Memory is intact Mood is depressed. Affect is moderately dysphoric. Thought process is logical and goal-directed. Thought content: Reports auditory hallucinations but no visual hallucinations. No delusions or paranoia are noted. He says that he was trying to kill himself with the overdose but denies suicidal ideation at this time. He denies homicidal ideation. Fund of knowledge is average. Insight and judgment appear to be fair. Impulse control is poor. Vitals/I&O/Wt Last Vital Signs Temp 98.3 F 09/05/21 06:00 Pulse 72 09/05/21 06:00 Resp 16 09/05/21 06:00 BP 115/75 09/05/21 06:00 Pulse Ox 93 09/05/21 06:00 Weight last 48 hrs Weight 108.862 kg Data NPU : 09/04/21 09:50 09/04/21 09:50 A&P Assessment and plan (1) Suicidal ideation: Status: Acute (2) Schizophrenia: Status: Chronic (3) Cluster B personality disorder: Status: Chronic (4) Psychosis: Status: Chronic (5) Auditory hallucinations: Status: Acute (6) Major depressive disorder: Status: Acute Plan This is a 36-year-old male with schizophrenia and cluster B personality traits who has multiple suicide attempts and probably needs a new living situation. Plan: 1. Restart medications as they were at the last hospitalization. 2. Continue every 15 minute checks for safety. 3. Encourage individual, group and milieu therapies. 4. Encourage sober living treatment after discharge at the highest level of care to which he is willing to commit. 5. We will monitor for safety for himself in the community prior to discharge. Involuntary Hold Information 96 Hour Hold: 96 Hour Involuntary Admission: Yes 96 Hour Hold Ending Date: 09/04/21 96 Hour Hold Ending Time: 20:00 Attestations NPU Medical Necessity Statement*: Inpatient hospitalization is medically necessary and the clinically appropriate intervention at this time. We will initiate medications and make changes as indicated. He will be in the hospital for over 2 midnights. 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
[2021-09-05] MEDS: CLONazepam 0.5 mg Tablet PO ×2 (09:15→12:05)
[2021-09-05] MEDS: aspirin 81 mg EC Tablet PO (09:15)
[2021-09-05 13:59] VITALS: BP 98/62; PULSE 78; RESP 16; TEMP 36.6; O2SAT 97
[2021-09-05] MEDS: lurasidone 80 mg Tablet PO (17:09)
[2021-09-05 19:45] VITALS: BP 73/41; PULSE 100; RESP 17; TEMP 36.5; O2SAT 94
[2021-09-05 20:00] VITALS: BP 90/72
[2021-09-05] MEDS: nicotine 2 mg Gum BUCCAL (20:13)
[2021-09-05] MEDS: hyDROXYzine 25 mg Capsule 50 MG PO (20:13)
[2021-09-05] MEDS: zolpidem 5 mg Tablet 10 MG PO (20:13)
[2021-09-05] MEDS: trazodone 150 mg Tablet 300 MG PO (20:13)
[2021-09-05] MEDS: chlorPROMazine 50 mg Tablet 250 MG PO (20:14)
--- NOTE | 2021-09-05 22:00 | PC.NURSE ---
PT HAS REMAINED ISOLATIVE TO ROOM. INITIAL BP NOTED 73/41 WHEN TAKEN BY MANUAL CUFF. THIS NURSE TO PT'S ROOM, PT WAKEN AGAIN AND ASKED TO SIT ON BEDSIDE. PT DENIES ANY FEELINGS OF LOW BP, DENIES ANY LIGHTHEADEDNESS.BP TAKEN MANUALLY AT THAT TIME AND READ 90/72. PT WAS GIVEN FLUIDS TO DRINK WELL. STAFF ALSO ENCOURAGED PT TO TRY TO STAY UP FOR TIME, GET OUT BED AND MOVE AROUND SOME BUT PT REMAINED IN BED. REPORTS THAT HE HAS EATEN WELL TODAY AND DID DRINK FLUIDS WITH MEALS. PT DENIES ANY SI THIS EVENING. ENDORSES CONTINUED AH WITHOUT CHANGE SINCE ADMIT YESTERDAY. PT HAS NO OTHER C/O AT THIS TIME.
[2021-09-06 06:00] VITALS: BP 100/67; PULSE 85; RESP 16; TEMP 36.5; O2SAT 99
[2021-09-06] MEDS: pantoprazole DR 40 mg Tablet PO (06:16)
[2021-09-06] MEDS: CLONazepam 0.5 mg Tablet PO ×2 (06:17→14:04)
[2021-09-06] MEDS: chlorPROMazine 50 mg Tablet 100 MG PO (06:19)
[2021-09-06] MEDS: buprenorphine-naloxone 4-1 mg Film 2 EACH SUBLINGUAL ×2 (06:20→17:01)
--- NOTE | 2021-09-06 08:23 | P.NPUPN_ITS ---
Subjective NPU Subjective: He said the voices are still really bad yesterday and this morning. He did not take any as needed Thorazine yesterday although he thought that he had. He was encouraged to take it today as needed if the voices were still bad. We will wait and talk with the social workers tomorrow about what to do about guardianship and placement. Mental Status Exam MSE Comments: This is a 36-year-old obese male who appears approximately his stated age and is in no acute distress. He is poorly gr oomed and in hospital scrubs. He was found in bed at 8:15 AM. he has a full hayes and some crusty food on the part below his mouth. psychomotor activity very decreased. Speech is at a regular rate and rhythm, normal volume, good articulation, not pressured. Alert, oriented X3 Attention and concentration diminished at this time. Memory is intact Mood is depressed. Affect is moderately dysphoric. Thought process is logical and goal-directed. Thought content: Reports auditory hallucinations but no visual hallucinations. No delusions or paranoia are noted. He says that he was trying to kill himself with the overdose but denies suicidal ideation at this time. He denies homicidal ideation. Fund of knowledge is average. Insight and judgment appear to be fair. Impulse control is poor. Cognition: Patient Appearance: Disheveled/Poor Hygiene Level of Consciousness: Awake, Alert, Appropriate and Follows Commands Patient Cognition Impaired: No Ability to Follow Directions: Good Patient Orientation (long list): Person, Name and Birthday Comprehension Ability: Understands Concepts Hallucination Type: Auditory Delusion Description: Not Present Thought Process: Appropriate Affect: Affect Description: Calm Behavior: Patient Behavior: Cooperative Speech Pattern: Clear Vitals/I&O/Wt Last Vital Signs Temp 97.7 F 09/06/21 06:00 Pulse 85 09/06/21 06:00 Resp 16 09/06/21 06:00 BP 100/67 09/06/21 06:00 Pulse Ox 99 09/06/21 06:00 Weight last 48 hrs Weight 105.143 kg Weight 105.143 kg Weight 108.862 kg Data NPU : 09/04/21 09:50 09/04/21 09:50 A&P Assessment and plan (1) Suicidal ideation: Status: Acute (2) Schizophrenia: Status: Chronic (3) Cluster B personality disorder: Status: Chronic (4) Psychosis: Status: Chronic (5) Auditory hallucinations: Status: Acute (6) Major depressive disorder: Status: Acute Plan This is a 36-year-old male with schizophrenia and cluster B personality traits who has multiple suicide attempts and probably needs a new living situation. Plan: 1. Restart medications as they were at the last hospitalization. 2. Continue every 15 minute checks for safety. 3. Encourage individual, group and milieu therapies. 4. Encourage sober living treatment after discharge at the highest level of care to which he is willing to commit. 5. We will monitor for safety for himself in the community prior to discharge. Involuntary Hold Information 96 Hour Hold: 96 Hour Involuntary Admission: Yes 96 Hour Hold Ending Date: 09/04/21 96 Hour Hold Ending Time: 20:00 Attestations NPU Medical Necessity Statement*: Inpatient hospitalization is medically necessary and the clinically appropriate intervention at this time. We will initiate medications and make changes as indicated. 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
--- NOTE | 2021-09-06 13:03 | PC.NURSE ---
scheduled 0900 meds held d/t level of sedation, pt unable to safely swallow medications at this time
[2021-09-06 14:00] VITALS: BP 96/63; PULSE 96; RESP 18; TEMP 36.6; O2SAT 93
[2021-09-06] MEDS: lurasidone 80 mg Tablet PO (17:01)
[2021-09-06 20:16] VITALS: BP 95/62; PULSE 76; RESP 16; TEMP 36.6; O2SAT 92
[2021-09-06] MEDS: trazodone 150 mg Tablet 300 MG PO (20:24)
[2021-09-06] MEDS: zolpidem 5 mg Tablet 10 MG PO (20:24)
[2021-09-06] MEDS: chlorPROMazine 50 mg Tablet 250 MG PO (20:27)
[2021-09-07 06:00] VITALS: BP 93/61; PULSE 74; RESP 16; TEMP 36.8; O2SAT 90
[2021-09-07] MEDS: pantoprazole DR 40 mg Tablet PO (06:12)
[2021-09-07] MEDS: buprenorphine-naloxone 4-1 mg Film 2 EACH SUBLINGUAL ×2 (06:12→19:32)
[2021-09-07] MEDS: CLONazepam 0.5 mg Tablet PO ×2 (06:12→12:11)
[2021-09-07] MEDS: chlorPROMazine 50 mg Tablet 100 MG PO ×2 (06:12→12:11)
[2021-09-07] MEDS: aspirin 81 mg EC Tablet PO (09:12)
[2021-09-07] MEDS: carvedilol 3.125 mg Tablet PO ×2 (09:12→20:08)
[2021-09-07] MEDS: losartan 50 mg Tablet 25 MG PO (09:12)
--- NOTE | 2021-09-07 11:31 | W.PM.NPUPNS ---
Subjective NPU Subjective: He has still not taken any of the as needed Thorazine. He takes 100 mg in the morning and 250 mg at bedtime. The nurses reported that he slept all day and did not take his morning medications until about 2 PM. He also asked for the as needed Thorazine at that time but they did not feel that it was appropriate to give it so close to the scheduled dose of Thorazine. He then went back to bed until he took his nighttime medication. He says that the voices are a little better today. Maybe 20% better. He was encouraged to take the as needed Thorazine at least once today. He was told that his uncle just needed to write a letter to have the state take over for guardianship. He says that he just wants to be happy and have a stable living environment. He says that his uncle is immature and enjoys holding his power over him over his head. He does not like that. Mental Status Exam MSE Comments: This is a 36-year-old obese male who appears approximately his stated age and is in no acute distress. He is poorly groomed and in hospital scrubs. He was found in bed at 11 AM. he has a full hayes and some crusty food on the part below his mouth. psychomotor activity very decreased. Speech is at a regular rate and rhythm, normal volume, good articulation, not pressured. Alert, oriented X3 Attention and concentration diminished at this time. Memory is intact Mood is depressed. Affect is moderately dysphoric. Thought process is logical and goal-directed. Thought content: Reports auditory hallucinations but no visual hallucinations. No delusions or paranoia are noted. He says that he was trying to kill himself with the overdose but denies suicidal ideation at this time. He denies homicidal ideation. Fund of knowledge is average. Insight and judgment appear to be fair. Impulse control is poor. Cognition: Patient Appearance: Disheveled/Poor Hygiene Level of Consciousness: Awake, Alert, Appropriate and Follows Commands Patient Cognition Impaired: No Ability to Follow Directions: Good Patient Orientation (long list): Person, Place, Name, Age and Birthday Comprehension Ability: Understands Concepts Hallucination Type: Auditory Delusion Description: Not Present Thought Process: Appropriate Affect: Affect Description: Flat Behavior: Patient Behavior: Appropriate, Cooperative and Withdrawn Speech Pattern: Appropriate and Clear Vitals/I&O/Wt Last Vital Signs Temp 98.3 F 06/13/22 06:00 Pulse 74 09/07/21 06:00 Resp 16 09/07/21 06:00 BP 93/61 09/07/21 06:00 Pulse Ox 90 09/07/21 06:00 Weight last 48 hrs Weight 105.143 kg Weight 105.143 kg Data NPU : 09/04/21 09:50 09/04/21 09:50 A&P Assessment and plan (1) Suicidal ideation: Status: Acute (2) Schizophrenia: Status: Chronic (3) Cluster B personality disorder: Status: Chronic (4) Psychosis: Status: Chronic (5) Auditory hallucinations: Status: Acute (6) Major depressive disorder: Status: Acute Plan This is a 36-year-old male with schizophrenia and cluster B personality traits who has multiple suicide attempts and probably needs a new living situation. Plan: 1. Restart medications as they were at the last hospitalization. Encouraged him to take the as needed Thorazine today and tomorrow. 2. Continue every 15 minute checks for safety. 3. Encourage individual, group and milieu therapies. 4. Encourage sober living treatment after discharge at the highest level of care to which he is willing to commit. 5. We will monitor for safety for himself in the community prior to discharge. Involuntary Hold Information 96 Hour Hold: 96 Hour Involuntary Admission: Yes 96 Hour Hold Ending Date: 09/04/21 96 Hour Hold Ending Time: 20:00 Attestations NPU Medical Necessity Statement*: Inpatient hospitalization is medically necessary and the clinically appropriate intervention at this time. We will initiate medications and make changes as indicated. 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
--- NOTE | 2021-09-07 12:11 | PC.NURSE ---
PRN THORAZINE 100 MG GIVEN PO PER PT REQUEST & C/O HEARING VOICES PT DOES NOT APPEAR TO BE RESPONDING TO ANY INTERNAL STIMULI.
[2021-09-07 14:00] VITALS: BP 107/73; PULSE 90; RESP 17; TEMP 36.6; O2SAT 93
--- NOTE | 2021-09-07 18:55 | PC.NURSE ---
scheduled Latuda & Suboxone films held d/t level of sedation, pt unable to safely swallow meds
[2021-09-07 20:01] VITALS: BP 81/46; PULSE 77; RESP 17; TEMP 36.5; O2SAT 94
[2021-09-07] MEDS: zolpidem 5 mg Tablet 10 MG PO (20:08)
[2021-09-07] MEDS: chlorPROMazine 50 mg Tablet 250 MG PO (20:08)
[2021-09-07] MEDS: trazodone 150 mg Tablet 300 MG PO (20:08)
[2021-09-08 06:00] VITALS: BP 70/45; PULSE 63; RESP 16; TEMP 36.7; O2SAT 95
[2021-09-08] MEDS: buprenorphine-naloxone 4-1 mg Film 2 EACH SUBLINGUAL ×2 (06:06→16:55)
[2021-09-08] MEDS: CLONazepam 0.5 mg Tablet PO ×2 (06:06→13:43)
[2021-09-08] MEDS: chlorPROMazine 50 mg Tablet 100 MG PO ×2 (06:07→11:53)
[2021-09-08] MEDS: pantoprazole DR 40 mg Tablet PO (06:07)
[2021-09-08] MEDS: aspirin 81 mg EC Tablet PO (10:15)
[2021-09-08] MEDS: carvedilol 3.125 mg Tablet PO ×2 (10:15→20:31)
[2021-09-08 10:16] VITALS: BP 70/45
[2021-09-08] MEDS: nicotine 2 mg Gum BUCCAL ×2 (10:16→16:32)
[2021-09-08] MEDS: losartan 50 mg Tablet 25 MG PO (10:16)
[2021-09-08] MEDS: hyDROXYzine 25 mg Capsule 50 MG PO ×2 (11:53→20:42)
--- NOTE | 2021-09-08 13:05 | W.PM.NPUPNS ---
Subjective NPU Subjective: He had 1 as needed dose of the Thorazine yesterday and 1 so far today. He says that the voices are about 50% better. He is confident they will continue to decrease if he takes 1 extra dose a day. He denies suicidal ideation. I told him again that his uncle just needs to write a letter or have his correctional program officer write a letter to have the guardianship transferred over to the state. Mental Status Exam MSE Comments: This is a 36-year-old obese male who appears approximately his stated age and is in no acute distress. He is poorly groomed and in hospital scrubs. He was found in bed at 1 PM. he has a full hayes . psychomotor activity very decreased. Speech is at a regular rate and rhythm, normal volume, good articulation, not pressured. Alert, oriented X3 Attention and concentration diminished at this time. Memory is intact Mood is depressed. Affect is moderately dysphoric. Thought process is logical and goal-directed. Thought content: Reports auditory hallucinations but no visual hallucinations. No delusions or paranoia are noted. He says that he was trying to kill himself with the overdose but denies suicidal ideation at this time. He denies homicidal ideation. Fund of knowledge is average. Insight and judgment appear to be fair. Impulse control is poor. Cognition: Patient Appearance: Disheveled/Poor Hygiene Level of Consciousness: Awake, Alert, Appropriate and Follows Commands Patient Cognition Impaired: No Ability to Follow Directions: Good Patient Orientation (long list): Person, Place, Name, Age and Birthday Comprehension Ability: Understands Concepts Hallucination Type: Auditory Delusion Description: Not Present Thought Process: Appropriate Affect: Affect Description: Flat Behavior: Patient Behavior: Cooperative and Withdrawn Speech Pattern: Appropriate and Clear Vitals/I&O/Wt Last Vital Signs Temp 98.0 F 09/08/21 06:00 Pulse 63 09/08/21 06:00 Resp 16 09/08/21 06:00 BP 70/45 09/08/21 10:16 Pulse Ox 95 09/08/21 06:00 Data NPU : 09/04/21 09:50 09/04/21 09:50 A&P Assessment and plan (1) Suicidal ideation: Status: Acute (2) Schizophrenia: Status: Chronic (3) Cluster B personality disorder: Status: Chronic (4) Psychosis: Status: Chronic (5) Auditory hallucinations: Status: Acute (6) Major depressive disorder: Status: Acute Plan This is a 36-year-old male with schizophrenia and cluster B personality traits who has multiple suicide attempts and probably needs a new living situation. Plan: 1. Restart medications as they were at the last hospitalization. Encouraged him to take the as needed Thorazine at least once per day 2. Continue every 15 minute checks for safety. 3. Encourage individual, group and milieu therapies. 4. Encourage sober living treatment after discharge at the highest level of care to which he is willing to commit. 5. We will monitor for safety for himself in the community prior to discharge. Involuntary Hold Information 96 Hour Hold: 96 Hour Involuntary Admission: Yes 96 Hour Hold Ending Date: 09/04/21 96 Hour Hold Ending Time: 20:00 Attestations NPU Medical Necessity Statement*: Inpatient hospitalization is medically necessary and the clinically appropriate intervention at this time. We will initiate medications and make changes as indicated. 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
[2021-09-08 13:31] VITALS: BP 93/62; PULSE 72; RESP 15; TEMP 36.3; O2SAT 91
[2021-09-08] MEDS: lurasidone 80 mg Tablet 120 MG PO (16:31)
[2021-09-08] MEDS: acetaminophen 325 mg Tablet 650 MG PO (16:42)
[2021-09-08 20:27] VITALS: BP 93/56; PULSE 59; RESP 15; TEMP 36.5; O2SAT 93
[2021-09-08] MEDS: trazodone 150 mg Tablet 300 MG PO (20:31)
[2021-09-08] MEDS: chlorPROMazine 50 mg Tablet 250 MG PO (20:31)
[2021-09-08] MEDS: zolpidem 5 mg Tablet 10 MG PO (20:31)
[2021-09-09 06:00] VITALS: BP 75/43; PULSE 65; RESP 15; TEMP 36.9; O2SAT 94
[2021-09-09] MEDS: buprenorphine-naloxone 4-1 mg Film 2 EACH SUBLINGUAL ×2 (06:13→17:02)
[2021-09-09] MEDS: pantoprazole DR 40 mg Tablet PO (06:14)
[2021-09-09] MEDS: chlorPROMazine 50 mg Tablet 100 MG PO ×2 (06:14→11:11)
[2021-09-09] MEDS: CLONazepam 0.5 mg Tablet PO ×2 (06:14→12:20)
[2021-09-09 06:27] VITALS: BP 90/58
[2021-09-09] MEDS: aspirin 81 mg EC Tablet PO (08:37)
[2021-09-09] MEDS: losartan 50 mg Tablet 25 MG PO (08:37)
[2021-09-09] MEDS: hyDROXYzine 25 mg Capsule 50 MG PO ×2 (08:38→20:15)
[2021-09-09] MEDS: carvedilol 3.125 mg Tablet PO (08:38)
[2021-09-09] MEDS: nicotine 2 mg Gum BUCCAL ×2 (11:11→20:15)
[2021-09-09] MEDS: OLANZapine 5 mg ODT PO (11:11)
[2021-09-09] MEDS: acetaminophen 325 mg Tablet 650 MG PO ×2 (12:19→16:59)
--- NOTE | 2021-09-09 12:58 | PC.NURSE ---
PRN PT GIVEN 50MG VISTARIL FOR STATED ANXIETY, WILL CONTINUE TO MONITOR.
[2021-09-09 14:00] VITALS: BP 90/57; PULSE 78; RESP 16; TEMP 36.6; O2SAT 93
--- NOTE | 2021-09-09 14:42 | W.PM.NPUPNS ---
Subjective NPU Subjective: Patient presents today reporting that he is feeling a little bit better. He reported frustration about the the tentative plan to get him to a locked facility by his guardian. We discussed the circumstances of his admission. And he completely walked back any idea that an overdose was involved which has been his MO recently. Clearly in his presentation he had suggested an overdose but now faced with the consequences is suggesting otherwise. Mental Status Exam MSE Comments: This is an overweight, versus obese, white male, in hospital scrubs, with adequate grooming, and eye contact. No abnormal movements except for psychomotor retardation. Cooperative with exam in no mild distress. Speech was decreased rate and volume. Mood described as okay; affect subdued. Thought process, organized. Thought content: patient denied any suicidal or homicidal ideation.? There were no delusions reported or noted, he denied any auditory or visual hallucinations. Attention, concentration, and memory appeared intact but were not formally tested.? He was alert and oriented times three. Insight and judgment appeared impaired, impulse control appeared limited in a locked facility.? Vitals/I&O/Wt Last Vital Signs Temp 97.8 F 09/09/21 14:00 Pulse 78 09/09/21 14:00 Resp 16 09/09/21 14:00 BP 90/57 09/09/21 14:00 Pulse Ox 93 09/09/21 14:00 Data NPU : 09/04/21 09:50 09/04/21 09:50 A&P Assessment and plan (1) Major depressive disorder: Status: Acute (2) Schizophrenia: Status: Chronic (3) Suicidal ideation: Status: Acute (4) Cluster B personality disorder: Status: Chronic (5) Psychosis: Status: Chronic (6) Auditory hallucinations: Status: Acute Plan This is a 36-year-old male with schizophrenia and cluster B personality traits who has multiple suicide attempts and probably needs a new living situation. Plan: 1.? Restart medications as they were at the last hospitalization.? Encouraged him to take the as needed Thorazine at least once per day 2.? Continue every 15 minute checks for safety. 3.? Encourage individual, group and milieu therapies. 4.? Encourage sober living treatment after discharge at the highest level of care to which he is willing to commit. 5.? Working with guardian to find a facility to which he can be discharged. Involuntary Hold Information 96 Hour Hold: 96 Hour Involuntary Admission: Yes 96 Hour Hold Ending Date: 09/04/21 96 Hour Hold Ending Time: 20:00 Attestations NPU Medical Necessity Statement*: Inpatient hospitalization is medically necessary and the clinically appropriate intervention at this time.? We will initiate medications and make changes as indicated. He will be hospitalized until adequate placement is found. Coding Level of Care Code Acute Staff Respiratory Therapist for [facility] Fwd Diagnoses Major depressive disorder F32.9 Schizophrenia F20.9 Suicidal ideation R45.851 Cluster B personality disorder F60.89 Psychosis F29 Auditory hallucinations R44.0
[2021-09-09] MEDS: lurasidone 80 mg Tablet 120 MG PO (17:02)
[2021-09-09] MEDS: trazodone 150 mg Tablet 300 MG PO (20:15)
[2021-09-09] MEDS: chlorPROMazine 50 mg Tablet 250 MG PO (20:15)
[2021-09-09] MEDS: zolpidem 5 mg Tablet 10 MG PO (20:15)
[2021-09-09 21:08] VITALS: BP 85/55; PULSE 74; RESP 17; TEMP 36.7; O2SAT 91
--- NOTE | 2021-09-09 21:41 | PC.NURSE ---
PT REQUESTED SOMETHING FOR ANXIETY AND NICOTINE GUM. BOTH WERE GIVEN BY THIS NURSE.
[2021-09-10] MEDS: buprenorphine-naloxone 4-1 mg Film 2 EACH SUBLINGUAL ×2 (05:58→17:02)
[2021-09-10] MEDS: pantoprazole DR 40 mg Tablet PO (05:58)
[2021-09-10] MEDS: CLONazepam 0.5 mg Tablet PO ×2 (05:58→12:15)
[2021-09-10] MEDS: chlorPROMazine 50 mg Tablet 100 MG PO (05:58)
[2021-09-10 06:00] VITALS: BP 114/75; PULSE 65; RESP 16; TEMP 36.7; O2SAT 99
[2021-09-10] MEDS: aspirin 81 mg EC Tablet PO (09:42)
[2021-09-10] MEDS: carvedilol 3.125 mg Tablet PO (09:43)
[2021-09-10 09:48] VITALS: BP 100/69
[2021-09-10 09:52] LABS: Glucose Point of Care 101 mg/dL (70-110)
[2021-09-10 12:52] VITALS: BP 98/63; PULSE 72; RESP 17; TEMP 36.4; O2SAT 92
--- NOTE | 2021-09-10 15:56 | W.PM.NPUPNS ---
Subjective NPU Subjective: Patient presents today frustrated about the situation. However we did spend quite a bit of time talking about the circumstance he got here. Namely the fact that he presented again with his story of overdose but this time he quickly back pedal as to whether he had occurred but given his significant history of overdose there is no room for crying tineo. We discussed that the guardian is currently in agreement with finding a locked facility and that now his only past and that he really wants is demonstrating his functionality in that setting. Mental Status Exam MSE Comments: This is an overweight, versus obese, white male, in hospital scrubs, with adequate grooming, and eye contact. No abnormal movements except for psychomotor retardation. Cooperative with exam in no mild distress. Speech was decreased rate and volume. Mood described as frustrated; affect subdued. Thought process, organized. Thought content: patient denied any suicidal or homicidal ideation.? There were no delusions reported or noted, he denied any auditory or visual hallucinations. Attention, concentration, and memory appeared intact but were not formally tested.? He was alert and oriented times three. Insight and judgment appeared impaired, impulse control appeared limited in a locked facility.? Vitals/I&O/Wt Last Vital Signs Temp 97.6 F 09/10/21 12:52 Pulse 72 09/10/21 12:52 Resp 17 09/10/21 12:52 BP 98/63 09/10/21 12:52 Pulse Ox 92 09/10/21 12:52 Data NPU : 09/04/21 09:50 09/04/21 09:50 A&P Assessment and plan (1) Major depressive disorder: Status: Acute (2) Schizophrenia: Status: Chronic (3) Suicidal ideation: Status: Acute (4) Cluster B personality disorder: Status: Chronic (5) Psychosis: Status: Chronic (6) Auditory hallucinations: Status: Acute (7) Opiate misuse: Status: Chronic (8) Hypotension: Status: Acute (9) Chronic anticoagulation: Status: Chronic Plan This is a 36-year-old male with schizophrenia and cluster B personality traits who has multiple suicide attempts and probably needs a new living situation. Plan: 1.? Restart medications as they were at the last hospitalization.? Encouraged him to take the as needed Thorazine at least once per day 2.? Continue every 15 minute checks for safety. 3.? Encourage individual, group and milieu therapies. 4.? Encourage sober living treatment after discharge at the highest level of care to which he is willing to commit. 5.? Working with guardian to find a facility to which he can be discharged. Involuntary Hold Information 96 Hour Hold: 96 Hour Involuntary Admission: Yes 96 Hour Hold Ending Date: 09/04/21 96 Hour Hold Ending Time: 20:00 Attestations NPU Medical Necessity Statement*: Inpatient hospitalization is medically necessary and the clinically appropriate intervention at this time.? We will initiate medications and make changes as indicated.? He will be hospitalized until adequate placement is found. Coding Level of Care Code Acute Technical Customer Support Specialist for g Fwd Diagnoses Major depressive disorder F32.9 Schizophrenia F20.9 Suicidal ideation R45.851 Cluster B personality disorder F60.89 Psychosis F29 Auditory hallucinations R44.0 Opiate misuse F11.90 Hypotension I95.9 Chronic anticoagulation Z79.01
[2021-09-10] MEDS: lurasidone 80 mg Tablet 120 MG PO (17:01)
[2021-09-10] MEDS: zolpidem 5 mg Tablet 10 MG PO (20:17)
[2021-09-10] MEDS: nicotine 2 mg Gum BUCCAL (20:17)
[2021-09-10] MEDS: chlorPROMazine 50 mg Tablet 250 MG PO (20:17)
[2021-09-10] MEDS: trazodone 150 mg Tablet 300 MG PO (20:17)
[2021-09-10] MEDS: hyDROXYzine 25 mg Capsule 50 MG PO (20:17)
[2021-09-10] MEDS: acetaminophen 325 mg Tablet 650 MG PO (20:33)
[2021-09-10 20:37] VITALS: BP 92/53; PULSE 72; RESP 16; TEMP 36.8; O2SAT 92
--- NOTE | 2021-09-10 21:04 | PC.NURSE ---
PRN PT REQUESTED HYDROXYZINE AND NICOTINE GUM WITH [facility]. BOTH MEDS ADMINISTERED PO AND PATIENT RETURNED TO THE DAY ROOM.
[2021-09-11] MEDS: CLONazepam 0.5 mg Tablet PO ×2 (05:55→12:25)
[2021-09-11] MEDS: buprenorphine-naloxone 4-1 mg Film 2 EACH SUBLINGUAL ×2 (05:55→17:00)
[2021-09-11] MEDS: chlorPROMazine 50 mg Tablet 100 MG PO ×2 (05:55→12:25)
[2021-09-11] MEDS: pantoprazole DR 40 mg Tablet PO (05:55)
[2021-09-11 06:00] VITALS: BP 92/57; PULSE 78; RESP 17; TEMP 36.7; O2SAT 93
[2021-09-11 08:41] VITALS: BP 92/57
[2021-09-11] MEDS: losartan 50 mg Tablet 25 MG PO (08:41)
[2021-09-11] MEDS: carvedilol 3.125 mg Tablet PO (08:42)
[2021-09-11] MEDS: nicotine 2 mg Gum BUCCAL ×3 (08:42→17:00)
[2021-09-11] MEDS: aspirin 81 mg EC Tablet PO (08:42)
[2021-09-11] MEDS: hyDROXYzine 25 mg Capsule 50 MG PO ×2 (12:25→20:24)
[2021-09-11 13:33] VITALS: BP 101/67; PULSE 79; RESP 16; TEMP 36.8; O2SAT 93
--- NOTE | 2021-09-11 16:31 | W.PM.NPUPNS ---
Subjective NPU Subjective: Patient presents today reporting continued frustration with being here but seems to be more and more accepting of the reality of a pending placement. Denies any problems with medication. Patient is eating and sleeping okay. We both acknowledged the unfortunate reality of his situation. He appears to be starting to be less isolative. Mental Status Exam MSE Comments: This is an overweight, versus obese, white male, in hospital scrubs, with adequate grooming, and eye contact. No abnormal movements except for psychomotor retardation. Cooperative with exam in mild distress. Some flakiness of the skin around his mouth. Speech was decreased rate and volume. Mood described as Okay; affect subdued. Thought process, organized. Thought content: patient denied any suicidal or homicidal ideation.? There were no delusions reported or noted, he denied any auditory or visual hallucinations. Attention, concentration, and memory appeared intact but were not formally tested.? He was alert and oriented times three. Insight and judgment appeared impaired, impulse control appeared limited in a locked facility.? Vitals/I&O/Wt Last Vital Signs Temp 97.4 F L 09/11/21 19:44 Pulse 76 09/11/21 19:44 Resp 16 09/11/21 19:44 BP 90/64 09/11/21 19:44 Pulse Ox 93 09/11/21 19:44 Data NPU : 09/04/21 09:50 09/04/21 09:50 A&P Assessment and plan (1) Major depressive disorder: Status: Acute (2) Suicidal ideation: Status: Acute (3) Cluster B personality disorder: Status: Chronic (4) Psychosis: Status: Chronic (5) Auditory hallucinations: Status: Acute (6) Neck pain: Status: Acute (7) Opiate misuse: Status: Chronic (8) Chronic anticoagulation: Status: Chronic (9) Hypotension: Status: Acute Plan This is a 36-year-old male with schizophrenia and cluster B personality traits who has multiple suicide attempts and probably needs a new living situation. Plan: 1.? Restart medications as they were at the last hospitalization.? Encouraged him to take the as needed Thorazine at least once per day 2.? Continue every 15 minute checks for safety. 3.? Encourage individual, group and milieu therapies. 4.? Encourage sober living treatment after discharge at the highest level of care to which he is willing to commit. 5.? Working with guardian to find a facility to which he can be discharged. Involuntary Hold Information 96 Hour Hold: 96 Hour Involuntary Admission: Yes 96 Hour Hold Ending Date: 09/04/21 96 Hour Hold Ending Time: 20:00 Attestations NPU Medical Necessity Statement*: Inpatient hospitalization is medically necessary and the clinically appropriate intervention at this time.? We will initiate medications and make changes as indicated.? He will be hospitalized until adequate placement is found. 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
[2021-09-11] MEDS: lurasidone 80 mg Tablet 120 MG PO (16:59)
--- NOTE | 2021-09-11 17:03 | PC.NURSE ---
PRN MEDS PT ANXIOUS AND REPORTS HEARING VOICES THROUGHOUT THE SHIFT. VISTARIL AND THORAZINE GIVEN ORDERED. SEE MAR FOR TIMES AND DETAILS. PT STATES MEDS ARE EFFECTIVE.
[2021-09-11 19:44] VITALS: BP 90/64; PULSE 76; RESP 16; TEMP 36.3; O2SAT 93
[2021-09-11] MEDS: zolpidem 5 mg Tablet 10 MG PO (20:23)
[2021-09-11] MEDS: trazodone 150 mg Tablet 300 MG PO (20:23)
[2021-09-11] MEDS: chlorPROMazine 50 mg Tablet 250 MG PO (20:23)
[2021-09-11] MEDS: acetaminophen 325 mg Tablet 650 MG PO (20:24)
[2021-09-12 06:00] VITALS: BP 89/47; PULSE 69; RESP 17; TEMP 36.8; O2SAT 93
[2021-09-12] MEDS: chlorPROMazine 50 mg Tablet 100 MG PO ×2 (06:10→09:49)
[2021-09-12] MEDS: buprenorphine-naloxone 4-1 mg Film 2 EACH SUBLINGUAL ×2 (06:10→18:01)
[2021-09-12] MEDS: CLONazepam 0.5 mg Tablet PO ×2 (06:11→12:33)
[2021-09-12] MEDS: pantoprazole DR 40 mg Tablet PO (06:11)
[2021-09-12] MEDS: aspirin 81 mg EC Tablet PO (09:47)
[2021-09-12] MEDS: carvedilol 3.125 mg Tablet PO (09:47)
--- NOTE | 2021-09-12 11:18 | W.PM.NPUPNS ---
Subjective NPU Subjective: Patient resents today reporting that there have been no changes and he does not have much to talk about. We talked about the fact that he seems to be a little more depressed which she denied to saying he does not want to be here. We continue to discuss the cause and effect of his situation. Mental Status Exam MSE Comments: This is an obese, white male, in hospital scrubs, with adequate grooming, and eye contact. No abnormal movements except for psychomotor retardation. Cooperative with exam in mild distress.? Some flakiness of the skin around his mouth.? Speech was decreased rate and volume. Mood described as fine; affect subdued. Thought process, organized. Thought content: patient denied any suicidal or homicidal ideation.? There were no delusions reported or noted, he denied any auditory or visual hallucinations. Attention, concentration, and memory appeared intact but were not formally tested.? He was alert and oriented times three. Insight and judgment appeared impaired, impulse control appeared limited in a locked facility.? Vitals/I&O/Wt Last Vital Signs Temp 98.2 F 09/12/21 06:00 Pulse 69 09/12/21 06:00 Resp 17 09/12/21 06:00 BP 89/47 09/12/21 06:00 Pulse Ox 93 09/12/21 06:00 Data NPU : 09/04/21 09:50 09/04/21 09:50 A&P Assessment and plan (1) Major depressive disorder: Status: Acute (2) Schizophrenia: Status: Chronic (3) Suicidal ideation: Status: Acute (4) Cluster B personality disorder: Status: Chronic (5) Psychosis: Status: Chronic (6) Auditory hallucinations: Status: Acute (7) Opiate misuse: Status: Chronic (8) Hypotension: Status: Acute (9) Chronic anticoagulation: Status: Chronic Plan This is a 36-year-old male with schizophrenia and cluster B personality traits who has multiple suicide attempts and probably needs a new living situation. Plan: 1.? Restart medications as they were at the last hospitalization.? Encouraged him to take the as needed Thorazine at least once per day 2.? Continue every 15 minute checks for safety. 3.? Encourage individual, group and milieu therapies. 4.? Encourage sober living treatment after discharge at the highest level of care to which he is willing to commit. 5.? Working with guardian to find a facility to which he can be discharged. Involuntary Hold Information 96 Hour Hold: 96 Hour Involuntary Admission: Yes 96 Hour Hold Ending Date: 09/04/21 96 Hour Hold Ending Time: 20:00 Attestations NPU Medical Necessity Statement*: Inpatient hospitalization is medically necessary and the clinically appropriate intervention at this time.? We will initiate medications and make changes as indicated.? He will be hospitalized until adequate placement is found. 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
[2021-09-12 13:40] VITALS: BP 77/50; PULSE 78; RESP 17; TEMP 36.6; O2SAT 93
--- NOTE | 2021-09-12 17:25 | PC.NURSE ---
SUBOXONE 4/1MG 2 STIPS BID AND CLONAZAPAM 0.5 MG PO BID DROPPED OFF MAY. NOTIFIED DR. PEREIRA. ORDERS PLACED PREVIOUSLY ENTERED.
--- NOTE | 2021-09-12 17:44 | PC.NURSE ---
MEDICATION ADMIN SUBOXONE 4/1MG PO BID AND LATUDA 120 MG AT 1700 WOULD NOT SCAN TO COMPUTER SYSTEM. MEDICATIONS WERE ADMINISTERED ORDERED AT 1738 BY THIS RN. WILL ATTEMPT TO SCAN LATER.
[2021-09-12] MEDS: lurasidone 80 mg Tablet 120 MG PO (18:01)
[2021-09-12 19:43] VITALS: BP 130/85; PULSE 106; RESP 18; TEMP 35.9; O2SAT 96
[2021-09-12] MEDS: zolpidem 5 mg Tablet 10 MG PO (20:18)
[2021-09-12] MEDS: hyDROXYzine 25 mg Capsule 50 MG PO (20:18)
[2021-09-12] MEDS: chlorPROMazine 50 mg Tablet 250 MG PO (20:19)
[2021-09-12] MEDS: trazodone 150 mg Tablet 300 MG PO (20:19)
[2021-09-12] MEDS: acetaminophen 325 mg Tablet 650 MG PO (22:59)
[2021-09-13 06:00] VITALS: BP 85/53; PULSE 58; RESP 16; TEMP 36.7; O2SAT 91
[2021-09-13] MEDS: chlorPROMazine 50 mg Tablet 100 MG PO ×2 (06:12→12:07)
[2021-09-13] MEDS: pantoprazole DR 40 mg Tablet PO (06:12)
[2021-09-13] MEDS: buprenorphine-naloxone 4-1 mg Film 2 EACH SUBLINGUAL ×2 (06:13→17:02)
[2021-09-13 08:54] VITALS: BP 85/53
[2021-09-13] MEDS: carvedilol 3.125 mg Tablet PO ×2 (08:54→20:04)
[2021-09-13] MEDS: aspirin 81 mg EC Tablet PO (08:54)
[2021-09-13] MEDS: losartan 50 mg Tablet 25 MG PO (08:54)
[2021-09-13] MEDS: nicotine 2 mg Gum BUCCAL ×3 (08:54→14:12)
[2021-09-13] MEDS: CLONazepam 0.5 mg Tablet PO ×2 (08:54→17:04)
[2021-09-13] MEDS: hyDROXYzine 25 mg Capsule 50 MG PO ×2 (12:07→20:03)
--- NOTE | 2021-09-13 12:08 | P.NPUPN_ITS ---
Subjective NPU Subjective: Patient presents today seeming like he is getting more adjusted to the idea of his guardian's plan and position for his treatment and placement. He did acknowledge the clicking on his face and we did research what he had used in prior stays to alleviate the problem. Otherwise he denies any changes in his starting to become a little less isolative. Mental Status Exam MSE Comments: This is an obese, white male, in hospital scrubs, with adequate grooming, and eye contact. No abnormal movements except for psychomotor retardation. Cooperative with exam in mild distress.? Some flakiness of the skin around his mouth.? Speech was slightly decreased rate and volume. Mood described as a little better; affect subdued. Thought process, organized. Thought content: patient denied any suicidal or homicidal ideation.? There were no delusions reported or noted, he denied any auditory or visual hallucinations. Attention, concentration, and memory appeared intact but were not formally tested.? He was alert and oriented times three. Insight and judgment appeared impaired, impulse control appeared limited in a locked facility.? Vitals/I&O/Wt Last Vital Signs Temp 98.0 F 09/13/21 06:00 Pulse 58 L 09/13/21 06:00 Resp 16 09/13/21 06:00 BP 85/53 09/13/21 08:54 Pulse Ox 91 09/13/21 06:00 Weight last 48 hrs Weight 108.862 kg Data NPU : 09/04/21 09:50 09/04/21 09:50 A&P Assessment and plan (1) Major depressive disorder: Status: Acute (2) Schizophrenia: Status: Chronic (3) Suicidal ideation: Status: Acute (4) Cluster B personality disorder: Status: Chronic (5) Psychosis: Status: Chronic (6) Auditory hallucinations: Status: Acute (7) Opiate misuse: Status: Chronic (8) Hypotension: Status: Acute (9) Chronic anticoagulation: Status: Chronic Plan This is a 36-year-old male with schizophrenia and cluster B personality traits who has multiple suicide attempts and probably needs a new living situation. Plan: 1.? Restart medications as they were at the last hospitalization.? Encouraged him to take the as needed Thorazine at least once per day. Added cream for his flaking skin on his face. 2.? Continue every 15 minute checks for safety. 3.? Encourage individual, group and milieu therapies. 4.? Encourage sober living treatment after discharge at the highest level of care to which he is willing to commit. 5.? Working with guardian to find a facility to which he can be discharged. Involuntary Hold Information 96 Hour Hold: 96 Hour Involuntary Admission: Yes 96 Hour Hold Ending Date: 09/04/21 96 Hour Hold Ending Time: 20:00 Attestations NPU Medical Necessity Statement*: Inpatient hospitalization is medically necessary and the clinically appropriate intervention at this time.? We will initiate medications and make changes as indicated.? He will be hospitalized until adequate placement is found. Coding Level of Care Code Acute Warehouse Associate Driver for g Fwd Diagnoses Major depressive disorder F32.9 Schizophrenia F20.9 Suicidal ideation R45.851 Cluster B personality disorder F60.89 Psychosis F29 Auditory hallucinations R44.0 Opiate misuse F11.90 Hypotension I95.9 Chronic anticoagulation Z79.01
[2021-09-13] MEDS: ketoconazole Shampoo 120 mL Btl 1 APPLIC TOPICAL (13:47)
[2021-09-13 14:00] VITALS: BP 78/62; PULSE 73; RESP 15; TEMP 36.6; O2SAT 91
[2021-09-13] MEDS: acetaminophen 325 mg Tablet 650 MG PO ×2 (14:14→20:04)
[2021-09-13] MEDS: haloperidol 5 mg Tablet PO (14:16)
[2021-09-13] MEDS: benzocaine 20% 7 gm 1 APPLIC MUCOUS MEM (15:55)
[2021-09-13] MEDS: lurasidone 80 mg Tablet 120 MG PO (16:15)
[2021-09-13] MEDS: lanolin oint 7 gm 1 APPLIC TOPICAL (17:03)
[2021-09-13] MEDS: benztropine 1 mg Tablet PO (17:03)
[2021-09-13] MEDS: ammonium lactate lotion 226 gm Btl 1 APPLIC TOPICAL (17:08)
[2021-09-13 19:41] VITALS: BP 66/40; PULSE 54; RESP 18; TEMP 36.6; O2SAT 94
[2021-09-13] MEDS: chlorPROMazine 50 mg Tablet 250 MG PO (20:03)
[2021-09-13] MEDS: zolpidem 5 mg Tablet 10 MG PO (20:03)
[2021-09-13] MEDS: trazodone 150 mg Tablet 300 MG PO (20:04)
[2021-09-14 06:00] VITALS: BP 87/57; PULSE 67; RESP 16; O2SAT 94
[2021-09-14] MEDS: buprenorphine-naloxone 4-1 mg Film 2 EACH SUBLINGUAL ×2 (06:02→17:05)
[2021-09-14] MEDS: pantoprazole DR 40 mg Tablet PO (06:02)
[2021-09-14] MEDS: chlorPROMazine 50 mg Tablet 100 MG PO ×2 (06:02→13:59)
[2021-09-14] MEDS: losartan 50 mg Tablet 25 MG PO (12:20)
[2021-09-14] MEDS: carvedilol 3.125 mg Tablet PO ×2 (12:20→20:03)
[2021-09-14] MEDS: aspirin 81 mg EC Tablet PO (12:20)
[2021-09-14] MEDS: CLONazepam 0.5 mg Tablet PO ×2 (12:20→16:26)
--- NOTE | 2021-09-14 12:21 | PC.NURSE ---
PRN KLONOPIN 0.5 MG GIVEN PO PER PT C/O STATED ANXIETY
[2021-09-14] MEDS: acetaminophen 325 mg Tablet 650 MG PO ×2 (13:09→17:40)
--- NOTE | 2021-09-14 13:11 | PC.NURSE ---
Patient c/o pain rated 9 in left lower tooth. Tylenol 650 mg po given for this.
[2021-09-14 14:00] VITALS: BP 119/72; PULSE 100; RESP 17; TEMP 36.8; O2SAT 95
[2021-09-14] MEDS: nicotine 2 mg Gum BUCCAL (14:01)
--- NOTE | 2021-09-14 14:01 | PC.NURSE ---
PRN THORAZINE 100 MG GIVEN PO PER PT C/O STATED VOICES AND OTHER HALLUCINATIONS
[2021-09-14] MEDS: hyDROXYzine 25 mg Capsule 50 MG PO ×2 (15:17→20:04)
--- NOTE | 2021-09-14 15:18 | PC.NURSE ---
PRN VISTARIL 50 MG GIVEN PO PER PT C/O STATED ANXIETY. MED SEEKING FOR ANY AND ALL PRN MEDICATIONS HE CAN HAVE
[2021-09-14] MEDS: benzocaine 20% 7 gm 1 APPLIC MUCOUS MEM (15:28)
--- NOTE | 2021-09-14 16:17 | PC.NURSE ---
NEW ORDERS PT REQUESTS THAT CLONAZAPAM 0.5 MG PO BID CHANGED TO 0800 AND 1300 GIVEN PREVIOUSLY. NEW ORDERS RECEIVED FROM DR. PEREIRA TO CHANGE CLONAZAPAM 0.5 MG PO BID TO 080 AND 1300. ORDERS PLACED IN [employer]. ONE TIME ORDER FOR CLONAZAPAM 0.5 MG PO NOW.
[2021-09-14] MEDS: lurasidone 80 mg Tablet 120 MG PO (16:26)
--- NOTE | 2021-09-14 17:15 | P.NPUPN_ITS ---
Subjective NPU Subjective: Patient presents today reporting that he has no changes. He is starting become less isolative and more interactive. He seems to have excepted his circumstance and is just awaiting placement. He is eating and sleeping fine and denies any specific issues. Mental Status Exam MSE Comments: This is an obese, white male, in hospital scrubs, with adequate grooming, and eye contact. No abnormal movements except for psychomotor retardation. Cooperative with exam in mild distress.? Some flakiness of the skin around his mouth.? Speech was slightly decreased rate and volume. Mood described as a little better; affect subdued. Thought process, organized. Thought content: patient denied any suicidal or homicidal ideation.? There were no delusions reported or noted, he denied any auditory or visual hallucinations. Attention, concentration, and memory appeared intact but were not formally tested.? He was alert and oriented times three. Insight and judgment appeared impaired, impulse control appeared fair in a locked facility.? Vitals/I&O/Wt Last Vital Signs Temp 98.3 F 09/14/21 14:00 Pulse 100 09/14/21 14:00 Resp 17 09/14/21 14:00 BP 119/72 09/14/21 14:00 Pulse Ox 95 09/14/21 14:00 Weight last 48 hrs Weight 108.862 kg Data NPU : 09/04/21 09:50 09/04/21 09:50 A&P Assessment and plan (1) Major depressive disorder: Status: Acute (2) Schizophrenia: Status: Chronic (3) Suicidal ideation: Status: Acute (4) Cluster B personality disorder: Status: Chronic (5) Psychosis: Status: Chronic (6) Auditory hallucinations: Status: Acute (7) Opiate misuse: Status: Chronic (8) Hypotension: Status: Acute (9) Chronic anticoagulation: Status: Chronic Plan This is a 36-year-old male with schizophrenia and cluster B personality traits who has multiple suicide attempts and probably needs a new living situation. Plan: 1.? Restart medications as they were at the last hospitalization.? Encouraged him to take the as needed Thorazine at least once per day.? Added cream for his flaking skin on his face. 2.? Continue every 15 minute checks for safety. 3.? Encourage individual, group and milieu therapies. 4.? Encourage sober living treatment after discharge at the highest level of care to which he is willing to commit. 5.? Working with guardian to find a facility to which he can be discharged. Involuntary Hold Information 96 Hour Hold: 96 Hour Involuntary Admission: Yes 96 Hour Hold Ending Date: 09/04/21 96 Hour Hold Ending Time: 20:00 Attestations NPU Medical Necessity Statement*: Inpatient hospitalization is medically necessary and the clinically appropriate intervention at this time.? We will initiate medications and make changes as indicated.? He will be hospitalized until adequate placement is found. Coding Level of Care Code Acute Court Supervisor for g Fwd Diagnoses Major depressive disorder F32.9 Schizophrenia F20.9 Suicidal ideation R45.851 Cluster B personality disorder F60.89 Psychosis F29 Auditory hallucinations R44.0 Opiate misuse F11.90 Hypotension I95.9 Chronic anticoagulation Z79.01
[2021-09-14] MEDS: zolpidem 5 mg Tablet 10 MG PO (20:03)
[2021-09-14] MEDS: chlorPROMazine 50 mg Tablet 250 MG PO (20:04)
[2021-09-14] MEDS: trazodone 150 mg Tablet 300 MG PO (20:04)
[2021-09-14 21:02] VITALS: BP 103/66; PULSE 90; RESP 18; TEMP 36.5; O2SAT 96
[2021-09-15] MEDS: buprenorphine-naloxone 4-1 mg Film 2 EACH SUBLINGUAL ×2 (05:59→17:14)
[2021-09-15 06:00] VITALS: BP 92/59; PULSE 64; RESP 18; O2SAT 63
[2021-09-15] MEDS: pantoprazole DR 40 mg Tablet PO (06:00)
[2021-09-15] MEDS: chlorPROMazine 50 mg Tablet 100 MG PO ×2 (06:00→12:59)
[2021-09-15] MEDS: losartan 50 mg Tablet 25 MG PO (08:39)
[2021-09-15] MEDS: carvedilol 3.125 mg Tablet PO ×2 (08:39→20:58)
[2021-09-15] MEDS: aspirin 81 mg EC Tablet PO (08:39)
[2021-09-15] MEDS: CLONazepam 0.5 mg Tablet PO ×2 (08:39→12:02)
[2021-09-15] MEDS: nicotine 2 mg Gum BUCCAL ×3 (09:54→19:54)
[2021-09-15] MEDS: acetaminophen 325 mg Tablet 650 MG PO ×2 (10:24→15:14)
--- NOTE | 2021-09-15 10:25 | PC.NURSE ---
Patient with c/o left lower tooth pain rated 8. Given 650 mg tylenol po for this.
[2021-09-15] MEDS: hyDROXYzine 25 mg Capsule 50 MG PO ×2 (11:17→20:58)
--- NOTE | 2021-09-15 11:17 | PC.NURSE ---
PRN VISTARIL 50 MG GIVEN PO PER PT C/O STATED ANXIETY
--- NOTE | 2021-09-15 12:59 | PC.NURSE ---
PRN THORAZINE 100 MG GIVEN PO PER REQUEST BY PATIENT, C/O HEARING VOICES DOES NOT APPEAR TO BE RESPONDING TO ANY INTERNAL STIMULI
[2021-09-15 13:56] VITALS: BP 86/51; PULSE 91; RESP 17; TEMP 36.5; O2SAT 96
[2021-09-15] MEDS: benzocaine 20% 7 gm 1 APPLIC MUCOUS MEM (13:58)
--- NOTE | 2021-09-15 15:15 | PC.NURSE ---
Patient with reports of left lower tooth pain rated 9. Tylenol 650 mg po given for this.
[2021-09-15] MEDS: lurasidone 80 mg Tablet 120 MG PO (16:34)
[2021-09-15] MEDS: ammonium lactate lotion 226 gm Btl 1 APPLIC TOPICAL (17:15)
[2021-09-15 18:47] VITALS: BP 88/65; PULSE 73; TEMP 36.9; O2SAT 94
--- NOTE | 2021-09-15 18:58 | W.PM.NPUPNS ---
Subjective NPU Subjective: Patient presents today reporting that he is doing okay. He is being more interactive with other patients. Less time spent in his room. He is taking the medication without incident. Reports that in general things are fine though reports he did not sleep great last night. We agreed we would keep an eye on his sleep. Otherwise he denies any changes endorsed is waiting for placement. Mental Status Exam MSE Comments: This is an obese, white male, in hospital scrubs, with adequate grooming, and eye contact. No abnormal movements except for psychomotor retardation. Cooperative with exam in mild distress.? The flakiness of the skin around his mouth is resolving.? Speech was slightly decreased rate and volume. Mood described as a little better; affect less subdued. Thought process, organized. Thought content: patient denied any suicidal or homicidal ideation.? There were no delusions reported or noted, he denied any auditory or visual hallucinations. Attention, concentration, and memory appeared intact but were not formally tested.? He was alert and oriented times three. Insight and judgment appeared impaired, impulse control appeared fair in a locked facility.? Vitals/I&O/Wt Last Vital Signs Temp 98.4 F 09/15/21 22:00 Pulse 73 09/15/21 22:00 Resp 17 09/15/21 22:00 BP 88/65 09/15/21 22:00 Pulse Ox 94 09/15/21 22:00 Data NPU : 09/04/21 09:50 09/04/21 09:50 A&P Assessment and plan (1) Major depressive disorder: Status: Acute (2) Schizophrenia: Status: Chronic (3) Suicidal ideation: Status: Acute (4) Cluster B personality disorder: Status: Chronic (5) Psychosis: Status: Chronic (6) Auditory hallucinations: Status: Acute (7) Opiate misuse: Status: Chronic (8) Hypotension: Status: Acute (9) Chronic anticoagulation: Status: Chronic Plan This is a 36-year-old male with schizophrenia and cluster B personality traits who has multiple suicide attempts and probably needs a new living situation. Plan: 1.? Restart medications as they were at the last hospitalization.? Encouraged him to take the as needed Thorazine at least once per day.? Added cream for his flaking skin on his face. 2.? Continue every 15 minute checks for safety. 3.? Encourage individual, group and milieu therapies. 4.? Encourage sober living treatment after discharge at the highest level of care to which he is willing to commit. 5.? Working with guardian to find a facility to which he can be discharged. Involuntary Hold Information 96 Hour Hold: 96 Hour Involuntary Admission: Yes 96 Hour Hold Ending Date: 09/04/21 96 Hour Hold Ending Time: 20:00 Attestations NPU Medical Necessity Statement*: Inpatient hospitalization is medically necessary and the clinically appropriate intervention at this time.? We will initiate medications and make changes as indicated.? He will be hospitalized until adequate placement is found. Coding Level of Care Code Acute Manager Bakery for g Fwd Diagnoses Major depressive disorder F32.9 Schizophrenia F20.9 Suicidal ideation R45.851 Cluster B personality disorder F60.89 Psychosis F29 Auditory hallucinations R44.0 Opiate misuse F11.90 Hypotension I95.9 Chronic anticoagulation Z79.01
[2021-09-15] MEDS: chlorPROMazine 50 mg Tablet 250 MG PO (20:58)
[2021-09-15] MEDS: zolpidem 5 mg Tablet 10 MG PO (20:58)
[2021-09-15] MEDS: trazodone 150 mg Tablet 300 MG PO (20:58)
[2021-09-15] MEDS: ibuprofen 800 mg tablet PO (21:30)
[2021-09-15 22:00] VITALS: BP 88/65; PULSE 73; RESP 17; TEMP 36.9; O2SAT 94
[2021-09-16 06:00] VITALS: BP 101/53; PULSE 66; RESP 14; TEMP 36.6; O2SAT 97
[2021-09-16] MEDS: chlorPROMazine 50 mg Tablet 100 MG PO ×2 (06:13→13:55)
[2021-09-16] MEDS: buprenorphine-naloxone 4-1 mg Film 2 EACH SUBLINGUAL ×2 (06:14→17:15)
[2021-09-16] MEDS: pantoprazole DR 40 mg Tablet PO (06:15)
[2021-09-16] MEDS: ibuprofen 800 mg tablet PO ×2 (08:10→20:12)
[2021-09-16 08:11] VITALS: BP 101/53
[2021-09-16] MEDS: carvedilol 3.125 mg Tablet PO ×2 (08:11→20:13)
[2021-09-16] MEDS: nicotine 2 mg Gum BUCCAL ×5 (08:11→20:12)
[2021-09-16] MEDS: aspirin 81 mg EC Tablet PO (08:11)
[2021-09-16] MEDS: losartan 50 mg Tablet 25 MG PO (08:11)
[2021-09-16] MEDS: CLONazepam 0.5 mg Tablet PO ×2 (08:12→13:56)
--- NOTE | 2021-09-16 08:53 | PC.NURSE ---
UP IN DAY AREA WATCHING TV. APPEARS TO BE IN BETTER SPIRITS TODAY. DENIES PAIN. DENIES SI/HI AND VH AT THIS TIME. CONTINUES TO ENDORSE AH BUT STATES THEY ARE MUCH BETTER TODAY. AND THEN SMILES. PT STATES THEY ARE NON COMMANDING AND CONVERSING WITH HIM, NOT COMMANDING HIM TO DO ANYTHING BAD. SUPPORT VOICED.
[2021-09-16 13:53] VITALS: BP 96/59; PULSE 60; RESP 15; TEMP 36.5; O2SAT 95
[2021-09-16] MEDS: hyDROXYzine 25 mg Capsule 50 MG PO ×2 (15:31→20:11)
[2021-09-16] MEDS: acetaminophen 325 mg Tablet 650 MG PO (17:15)
[2021-09-16] MEDS: lurasidone 80 mg Tablet 120 MG PO (17:15)
[2021-09-16] MEDS: ammonium lactate lotion 226 gm Btl 1 APPLIC TOPICAL (18:02)
--- NOTE | 2021-09-16 18:11 | W.PM.NPUPNS ---
Subjective NPU Subjective: Patient presents today reporting that he is doing okay. He is taking medication as prescribed and denying any issues. Today he was inquisitive about the place he was going wondering if it would be like nursing home. We discussed the circumstances and set up of some level II locked facilities. Otherwise he denies any problems with his medications or any significant changes. Mental Status Exam MSE Comments: This is an obese, white male, in hospital scrubs, with adequate grooming, and eye contact. No abnormal movements except for psychomotor retardation. Cooperative with exam in mild distress.? The flakiness of the skin around his mouth is resolving.? Speech was slightly decreased rate and volume. Mood described as fine; affect less subdued. Thought process, organized. Thought content: patient denied any suicidal or homicidal ideation.? There were no delusions reported or noted, he denied any auditory or visual hallucinations. Attention, concentration, and memory appeared intact but were not formally tested.? He was alert and oriented times three. Insight and judgment appeared impaired, impulse control appeared fair in a locked facility.? Vitals/I&O/Wt Last Vital Signs Temp 97.9 F 09/16/21 19:35 Pulse 83 09/16/21 19:35 Resp 14 09/16/21 19:35 BP 93/65 09/16/21 19:35 Pulse Ox 93 09/16/21 19:35 Data NPU : 09/04/21 09:50 09/04/21 09:50 A&P Assessment and plan (1) Major depressive disorder: Status: Acute (2) Schizophrenia: Status: Chronic (3) Suicidal ideation: Status: Acute (4) Cluster B personality disorder: Status: Chronic (5) Psychosis: Status: Chronic (6) Auditory hallucinations: Status: Acute (7) Opiate misuse: Status: Chronic (8) Hypotension: Status: Acute (9) Chronic anticoagulation: Status: Chronic Plan This is a 36-year-old male with schizophrenia and cluster B personality traits who has multiple suicide attempts and probably needs a new living situation. Plan: 1.? Restart medications as they were at the last hospitalization.? Encouraged him to take the as needed Thorazine at least once per day.? Added cream for his flaking skin on his face. 2.? Continue every 15 minute checks for safety. 3.? Encourage individual, group and milieu therapies. 4.? Encourage sober living treatment after discharge at the highest level of care to which he is willing to commit. 5.? Working with guardian to find a facility to which he can be discharged. Involuntary Hold Information 96 Hour Hold: 96 Hour Involuntary Admission: Yes 96 Hour Hold Ending Date: 09/04/21 96 Hour Hold Ending Time: 20:00 Attestations NPU Medical Necessity Statement*: Inpatient hospitalization is medically necessary and the clinically appropriate intervention at this time.? We will initiate medications and make changes as indicated.? He will be hospitalized until adequate placement is found. Coding Level of Care Code Acute Corrective And Manual Arts Therapist for g Fwd Diagnoses Major depressive disorder F32.9 Schizophrenia F20.9 Suicidal ideation R45.851 Cluster B personality disorder F60.89 Psychosis F29 Auditory hallucinations R44.0 Opiate misuse F11.90 Hypotension I95.9 Chronic anticoagulation Z79.01
[2021-09-16 19:35] VITALS: BP 93/65; PULSE 83; RESP 14; TEMP 36.6; O2SAT 93
[2021-09-16] MEDS: zolpidem 5 mg Tablet 10 MG PO (20:11)
[2021-09-16] MEDS: trazodone 150 mg Tablet 300 MG PO (20:12)
[2021-09-16] MEDS: chlorPROMazine 50 mg Tablet 250 MG PO (20:12)
[2021-09-17] MEDS: buprenorphine-naloxone 4-1 mg Film 2 EACH SUBLINGUAL ×2 (05:53→17:03)
[2021-09-17] MEDS: pantoprazole DR 40 mg Tablet PO (05:53)
[2021-09-17] MEDS: chlorPROMazine 50 mg Tablet 100 MG PO ×2 (05:53→14:20)
[2021-09-17 06:00] VITALS: BP 90/54; PULSE 71; RESP 16; TEMP 36.6; O2SAT 90
[2021-09-17 08:27] VITALS: BP 90/54
[2021-09-17] MEDS: losartan 50 mg Tablet 25 MG PO (08:27)
[2021-09-17] MEDS: CLONazepam 0.5 mg Tablet PO ×2 (08:27→12:13)
[2021-09-17] MEDS: aspirin 81 mg EC Tablet PO (08:28)
[2021-09-17] MEDS: nicotine 2 mg Gum BUCCAL ×7 (08:28→20:04)
[2021-09-17] MEDS: ibuprofen 800 mg tablet PO ×2 (08:28→18:25)
[2021-09-17] MEDS: carvedilol 3.125 mg Tablet PO ×2 (08:28→20:04)
[2021-09-17] MEDS: ammonium lactate lotion 226 gm Btl 1 APPLIC TOPICAL ×2 (08:53→18:13)
[2021-09-17 14:00] VITALS: BP 107/68; PULSE 84; RESP 17; TEMP 36.6; O2SAT 93
[2021-09-17] MEDS: hyDROXYzine 25 mg Capsule 50 MG PO ×2 (14:53→20:05)
--- NOTE | 2021-09-17 15:36 | P.NPUPN_ITS ---
Subjective NPU Subjective: Patient presents today reporting that he is feeling better overall. His period of isolation has resolved to be spending more time in the group room and common areas. He reports that his face is clearing up. And he is denying any major concerns. No changes otherwise. He is eating and sleeping fine. Mental Status Exam MSE Comments: This is an obese, white male, in hospital scrubs, with adequate grooming, and eye contact. No abnormal movements except for psychomotor retardation. Cooperative with exam in mild distress.? The flakiness of the skin around his mouth is resolving.? Speech was slightly decreased rate and volume. Mood described as getting better; affect congruent and less subdued. Thought process, organized. Thought content: patient denied any suicidal or homicidal ideation.? There were no delusions reported or noted, he denied any auditory or visual hallucinations. Attention, concentration, and memory appeared intact but were not formally tested.? He was alert and oriented times three. Insight and judgment appeared impaired, impulse control appeared fair..? Vitals/I&O/Wt Last Vital Signs Temp 98 F 09/17/21 14:00 Pulse 84 09/17/21 14:00 Resp 17 09/17/21 14:00 BP 107/68 09/17/21 14:00 Pulse Ox 93 09/17/21 14:00 Data NPU : 09/04/21 09:50 09/04/21 09:50 A&P Assessment and plan (1) Major depressive disorder: Status: Acute (2) Schizophrenia: Status: Chronic (3) Suicidal ideation: Status: Acute (4) Cluster B personality disorder: Status: Chronic (5) Psychosis: Status: Chronic (6) Auditory hallucinations: Status: Acute (7) Opiate misuse: Status: Chronic (8) Hypotension: Status: Acute (9) Chronic anticoagulation: Status: Chronic Plan This is a 36-year-old male with schizophrenia and cluster B personality traits who has multiple suicide attempts and probably needs a new living situation. Plan: 1.? Restart medications as they were at the last hospitalization.? Encouraged him to take the as needed Thorazine at least once per day.? Added cream for his flaking skin on his face. 2.? Continue every 15 minute checks for safety. 3.? Encourage individual, group and milieu therapies. 4.? Encourage sober living treatment after discharge at the highest level of care to which he is willing to commit. 5.? Working with guardian to find a facility to which he can be discharged. Involuntary Hold Information 96 Hour Hold: 96 Hour Involuntary Admission: Yes 96 Hour Hold Ending Date: 09/04/21 96 Hour Hold Ending Time: 20:00 Attestations NPU Medical Necessity Statement*: Inpatient hospitalization is medically necessary and the clinically appropriate intervention at this time.? We will initiate medications and make changes as indicated.? He will be hospitalized until adequate placement is found. Coding Level of Care Code Acute Practice Administrator for g Fwd Diagnoses Major depressive disorder F32.9 Schizophrenia F20.9 Suicidal ideation R45.851 Cluster B personality disorder F60.89 Psychosis F29 Auditory hallucinations R44.0 Opiate misuse F11.90 Hypotension I95.9 Chronic anticoagulation Z79.01
[2021-09-17] MEDS: lurasidone 80 mg Tablet 120 MG PO (16:26)
[2021-09-17] MEDS: simethicone 80 mg Chew PO (17:46)
[2021-09-17] MEDS: trazodone 150 mg Tablet 300 MG PO (20:04)
[2021-09-17] MEDS: chlorPROMazine 50 mg Tablet 250 MG PO (20:04)
[2021-09-17] MEDS: zolpidem 5 mg Tablet 10 MG PO (20:04)
[2021-09-17 20:16] VITALS: BP 111/77; PULSE 83; RESP 15; TEMP 36.6; O2SAT 92
[2021-09-17] MEDS: docusate sodium 100 mg Capsule PO (20:26)
[2021-09-17] MEDS: acetaminophen 325 mg Tablet 650 MG PO (20:26)
[2021-09-18] MEDS: chlorPROMazine 50 mg Tablet 100 MG PO ×2 (05:47→13:01)
[2021-09-18] MEDS: pantoprazole DR 40 mg Tablet PO (05:47)
[2021-09-18] MEDS: buprenorphine-naloxone 4-1 mg Film 2 EACH SUBLINGUAL ×2 (05:47→17:07)
[2021-09-18 06:00] VITALS: BP 91/60; PULSE 80; RESP 15; TEMP 36.6; O2SAT 92
[2021-09-18] MEDS: CLONazepam 0.5 mg Tablet PO ×2 (08:22→12:16)
[2021-09-18] MEDS: ibuprofen 800 mg tablet PO ×2 (08:22→20:26)
[2021-09-18 08:23] VITALS: BP 91/60
[2021-09-18] MEDS: losartan 50 mg Tablet 25 MG PO (08:23)
[2021-09-18] MEDS: carvedilol 3.125 mg Tablet PO (08:26)
[2021-09-18] MEDS: nicotine 2 mg Gum BUCCAL ×5 (08:26→20:27)
[2021-09-18] MEDS: aspirin 81 mg EC Tablet PO (08:26)
[2021-09-18] MEDS: simethicone 80 mg Chew PO ×2 (08:26→17:07)
[2021-09-18] MEDS: ammonium lactate lotion 226 gm Btl 1 APPLIC TOPICAL ×2 (11:10→16:55)
--- NOTE | 2021-09-18 13:52 | W.PM.NPUPNS ---
Subjective NPU Subjective: Patient presents today reporting that he is doing okay. Did not appear to be any major changes though he continues to be more social and much less irritable. Spending much more time out of room and interactive. He is take medication without incident and not focusing on the negative aspects of being hospitalized. Mental Status Exam MSE Comments: This is an obese, white male, in hospital scrubs, with adequate grooming, and eye contact. No abnormal movements except for psychomotor retardation. Cooperative with exam in mild distress.? The flakiness of the skin around his mouth is resolving.? Speech was slightly decreased rate and volume. Mood described as okay; affect congruent and less subdued. Thought process, organized. Thought content: patient denied any suicidal or homicidal ideation.? There were no delusions reported or noted, he denied any auditory or visual hallucinations. Attention, concentration, and memory appeared intact but were not formally tested.? He was alert and oriented times three. Insight and judgment appeared improving, impulse control appeared fair. Vitals/I&O/Wt Last Vital Signs Temp 98 F 09/18/21 06:00 Pulse 80 09/18/21 06:00 Resp 15 09/18/21 06:00 BP 91/60 09/18/21 08:23 Pulse Ox 92 09/18/21 06:00 Data NPU : 09/04/21 09:50 09/04/21 09:50 A&P Assessment and plan (1) Major depressive disorder: Status: Acute (2) Schizophrenia: Status: Chronic (3) Suicidal ideation: Status: Acute (4) Cluster B personality disorder: Status: Chronic (5) Psychosis: Status: Chronic (6) Auditory hallucinations: Status: Acute (7) Opiate misuse: Status: Chronic (8) Hypotension: Status: Acute (9) Chronic anticoagulation: Status: Chronic Plan This is a 36-year-old male with schizophrenia and cluster B personality traits who has multiple suicide attempts and probably needs a new living situation. Plan: 1.? Restart medications as they were at the last hospitalization.? Encouraged him to take the as needed Thorazine at least once per day.? Added cream for his flaking skin on his face. 2.? Continue every 15 minute checks for safety. 3.? Encourage individual, group and milieu therapies. 4.? Encourage sober living treatment after discharge at the highest level of care to which he is willing to commit. 5.? Working with guardian to find a facility to which he can be discharged. Involuntary Hold Information 96 Hour Hold: 96 Hour Involuntary Admission: Yes 96 Hour Hold Ending Date: 09/04/21 96 Hour Hold Ending Time: 20:00 Attestations NPU Medical Necessity Statement*: Inpatient hospitalization is medically necessary and the clinically appropriate intervention at this time.? We will initiate medications and make changes as indicated.? He will be hospitalized until adequate placement is found. Coding Level of Care Code Acute Hand Suture Winder for [facility] Fwd Diagnoses Major depressive disorder F32.9 Schizophrenia F20.9 Suicidal ideation R45.851 Cluster B personality disorder F60.89 Psychosis F29 Auditory hallucinations R44.0 Opiate misuse F11.90 Hypotension I95.9 Chronic anticoagulation Z79.01
[2021-09-18 14:00] VITALS: BP 93/61; PULSE 82; RESP 20; TEMP 36.4; O2SAT 94
[2021-09-18] MEDS: hyDROXYzine 25 mg Capsule 50 MG PO ×2 (14:32→20:24)
[2021-09-18] MEDS: lurasidone 80 mg Tablet 120 MG PO (17:07)
[2021-09-18 19:39] VITALS: BP 97/64; PULSE 72; RESP 16; TEMP 36.4; O2SAT 94
[2021-09-18] MEDS: trazodone 150 mg Tablet 300 MG PO (20:24)
[2021-09-18] MEDS: chlorPROMazine 50 mg Tablet 250 MG PO (20:24)
[2021-09-18] MEDS: zolpidem 5 mg Tablet 10 MG PO (20:25)
[2021-09-18] MEDS: docusate sodium 100 mg Capsule PO (20:27)
[2021-09-19 06:00] VITALS: BP 79/50; PULSE 61; RESP 16; TEMP 36.5; O2SAT 94
[2021-09-19] MEDS: buprenorphine-naloxone 4-1 mg Film 2 EACH SUBLINGUAL ×2 (06:05→17:19)
[2021-09-19] MEDS: chlorPROMazine 50 mg Tablet 100 MG PO ×2 (06:05→13:30)
[2021-09-19] MEDS: pantoprazole DR 40 mg Tablet PO (06:05)
--- NOTE | 2021-09-19 06:20 | PC.NURSE ---
Patient with complaint of a tooth ache on and off for a week. Assessment showed plaque and tartar at the base of the tooth and it was very sensitive to touch. It is the bottom left tooth before the molar. Per Dr. Escobar, start patient on amoxicillin 500mg po bid x 7 days. Order written and patient notified of starting the antibiotic 09-19 at 0900.
[2021-09-19] MEDS: aspirin 81 mg EC Tablet PO (09:26)
[2021-09-19] MEDS: amoxicillin 500 mg Capsule PO ×2 (09:26→18:30)
[2021-09-19] MEDS: nicotine 2 mg Gum BUCCAL ×5 (09:27→20:08)
[2021-09-19] MEDS: ibuprofen 800 mg tablet PO ×2 (09:27→20:09)
[2021-09-19] MEDS: carvedilol 3.125 mg Tablet PO ×2 (09:27→20:08)
[2021-09-19] MEDS: simethicone 80 mg Chew PO (09:27)
[2021-09-19] MEDS: ammonium lactate lotion 226 gm Btl 1 APPLIC TOPICAL (09:36)
[2021-09-19] MEDS: CLONazepam 0.5 mg Tablet PO ×3 (09:41→17:12)
[2021-09-19 10:25] VITALS: BP 79/50
[2021-09-19] MEDS: hyDROXYzine 25 mg Capsule 50 MG PO ×2 (12:36→20:09)
[2021-09-19 13:37] VITALS: BP 95/65; PULSE 86; RESP 16; TEMP 36.3; O2SAT 94
--- NOTE | 2021-09-19 15:43 | P.NPUPN_ITS ---
Subjective NPU Subjective: Patient presents today reporting that he is doing okay. He continues to be in a better place and simply awaiting placement with guardians approval. Continues to spend much more time socially in the group room without isolative behavior. Reports he is eating and sleeping fine. Mental Status Exam MSE Comments: This is an obese, white male, in hospital scrubs, with adequate grooming, and eye contact. No abnormal movements except for psychomotor retardation. Cooperative with exam in mild distress.? The flakiness of the skin around his mouth is resolving.? Speech was slightly decreased rate and volume. Mood described as okay; affect congruent and less subdued. Thought process, organized. Thought content: patient denied any suicidal or homicidal ideation.? There were no delusions reported or noted, he denied any auditory or visual hallucinations. Attention, concentration, and memory appeared intact but were not formally tested.? He was alert and oriented times three. Insight and judgment appeared improving, impulse control appeared fair. Vitals/I&O/Wt Last Vital Signs Temp 97.4 F L 09/19/21 13:37 Pulse 86 09/19/21 13:37 Resp 16 09/19/21 13:37 BP 95/65 09/19/21 13:37 Pulse Ox 94 09/19/21 13:37 Data NPU : 09/04/21 09:50 09/04/21 09:50 A&P Assessment and plan (1) Major depressive disorder: Status: Acute (2) Schizophrenia: Status: Chronic (3) Suicidal ideation: Status: Acute (4) Cluster B personality disorder: Status: Chronic (5) Psychosis: Status: Chronic (6) Auditory hallucinations: Status: Acute (7) Opiate misuse: Status: Chronic (8) Hypotension: Status: Acute (9) Chronic anticoagulation: Status: Chronic Plan This is a 36-year-old male with schizophrenia and cluster B personality traits who has multiple suicide attempts and probably needs a new living situation. Plan: 1.? Restart medications as they were at the last hospitalization.? Encouraged him to take the as needed Thorazine at least once per day.? Added cream for his flaking skin on his face. 2.? Continue every 15 minute checks for safety. 3.? Encourage individual, group and milieu therapies. 4.? Encourage sober living treatment after discharge at the highest level of care to which he is willing to commit. 5.? Working with guardian to find a facility to which he can be discharged. Involuntary Hold Information 96 Hour Hold: 96 Hour Involuntary Admission: Yes 96 Hour Hold Ending Date: 09/04/21 96 Hour Hold Ending Time: 20:00 Attestations NPU Medical Necessity Statement*: Inpatient hospitalization is medically necessary and the clinically appropriate intervention at this time.? We will initiate medications and make changes as indicated.? He will be hospitalized until adequate placement is found. Coding Level of Care Code Acute System Technologist for [facility] Fwd Diagnoses Major depressive disorder F32.9 Schizophrenia F20.9 Suicidal ideation R45.851 Cluster B personality disorder F60.89 Psychosis F29 Auditory hallucinations R44.0 Opiate misuse F11.90 Hypotension I95.9 Chronic anticoagulation Z79.01
[2021-09-19] MEDS: lurasidone 80 mg Tablet 120 MG PO (17:12)
[2021-09-19] MEDS: chlorPROMazine 50 mg Tablet 250 MG PO (20:07)
[2021-09-19] MEDS: trazodone 150 mg Tablet 300 MG PO (20:08)
[2021-09-19] MEDS: trazodone 50 mg Tablet PO (20:08)
[2021-09-19] MEDS: zolpidem 5 mg Tablet 10 MG PO (20:08)
[2021-09-19 20:10] VITALS: BP 90/64; PULSE 80; RESP 15; TEMP 36.6; O2SAT 94
[2021-09-19] MEDS: docusate sodium 100 mg Capsule PO (20:29)
[2021-09-20 05:57] VITALS: BP 94/58; PULSE 66; RESP 17; TEMP 36.6; O2SAT 92
[2021-09-20] MEDS: chlorPROMazine 50 mg Tablet 100 MG PO ×3 (06:17→16:22)
[2021-09-20] MEDS: buprenorphine-naloxone 4-1 mg Film 2 EACH SUBLINGUAL ×2 (06:18→17:13)
[2021-09-20] MEDS: pantoprazole DR 40 mg Tablet PO (06:18)
--- NOTE | 2021-09-20 08:35 | W.PM.NPUPNS ---
Subjective NPU Subjective: Patient presents today continuing his status quo. He denies any new or pressing issues. He denies any problems or concerns. He reports he is waiting for placement and denied any challenges at this time. Mental Status Exam MSE Comments: This is an obese, white male, in hospital scrubs, with adequate grooming, and eye contact. No abnormal movements except for psychomotor retardation. Cooperative with exam in no acute distress.? Speech was slightly decreased rate and volume. Mood described as pretty good; affect congruent and less subdued. Thought process, organized. Thought content: patient denied any suicidal or homicidal ideation.? There were no delusions reported or noted, he denied any auditory or visual hallucinations. Attention, concentration, and memory appeared intact but were not formally tested.? He was alert and oriented times three. Insight and judgment appeared improving, impulse control appeared fair. Vitals/I&O/Wt Last Vital Signs Temp 98 F 09/20/21 05:57 Pulse 66 09/20/21 05:57 Resp 17 09/20/21 05:57 BP 94/58 09/20/21 05:57 Pulse Ox 92 09/20/21 05:57 Weight last 48 hrs Weight 108.862 kg Data NPU : 09/04/21 09:50 09/04/21 09:50 A&P Assessment and plan (1) Major depressive disorder: Status: Acute (2) Schizophrenia: Status: Chronic (3) Suicidal ideation: Status: Acute (4) Cluster B personality disorder: Status: Chronic (5) Psychosis: Status: Chronic (6) Auditory hallucinations: Status: Acute (7) Opiate misuse: Status: Chronic (8) Hypotension: Status: Acute (9) Chronic anticoagulation: Status: Chronic Plan This is a 36-year-old male with schizophrenia and cluster B personality traits who has multiple suicide attempts and probably needs a new living situation. Plan: 1.? Restart medications as they were at the last hospitalization.? Encouraged him to take the as needed Thorazine at least once per day.? Added cream for his flaking skin on his face. 2.? Continue every 15 minute checks for safety. 3.? Encourage individual, group and milieu therapies. 4.? Encourage sober living treatment after discharge at the highest level of care to which he is willing to commit. 5.? Working with guardian to find a facility to which he can be discharged. Involuntary Hold Information 96 Hour Hold: 96 Hour Involuntary Admission: Yes 96 Hour Hold Ending Date: 09/04/21 96 Hour Hold Ending Time: 20:00 Attestations NPU Medical Necessity Statement*: Inpatient hospitalization is medically necessary and the clinically appropriate intervention at this time.? We will initiate medications and make changes as indicated.? He will be hospitalized until adequate placement is found. Coding Level of Care Code Acute Telephone Order Clerk for [facility] Fwd Diagnoses Major depressive disorder F32.9 Schizophrenia F20.9 Suicidal ideation R45.851 Cluster B personality disorder F60.89 Psychosis F29 Auditory hallucinations R44.0 Opiate misuse F11.90 Hypotension I95.9 Chronic anticoagulation Z79.01
[2021-09-20 09:25] VITALS: BP 94/58
[2021-09-20] MEDS: losartan 50 mg Tablet 25 MG PO (09:25)
[2021-09-20] MEDS: amoxicillin 500 mg Capsule PO ×2 (09:25→17:13)
[2021-09-20] MEDS: carvedilol 3.125 mg Tablet PO ×2 (09:26→21:32)
[2021-09-20] MEDS: nicotine 2 mg Gum BUCCAL ×5 (09:26→21:32)
[2021-09-20] MEDS: aspirin 81 mg EC Tablet PO (09:26)
[2021-09-20] MEDS: docusate sodium 100 mg Capsule PO (09:26)
[2021-09-20] MEDS: ammonium lactate lotion 226 gm Btl 1 APPLIC TOPICAL (09:27)
[2021-09-20] MEDS: ibuprofen 800 mg tablet PO ×2 (12:06→21:32)
[2021-09-20] MEDS: CLONazepam 0.5 mg Tablet PO (12:10)
[2021-09-20 13:52] VITALS: BP 94/57; PULSE 76; RESP 17; TEMP 36.6; O2SAT 93
[2021-09-20] MEDS: hyDROXYzine 25 mg Capsule 50 MG PO ×2 (16:22→21:31)
[2021-09-20] MEDS: lurasidone 80 mg Tablet 120 MG PO (17:13)
[2021-09-20] MEDS: trazodone 150 mg Tablet 300 MG PO (21:31)
[2021-09-20] MEDS: chlorPROMazine 50 mg Tablet 250 MG PO (21:32)
[2021-09-20] MEDS: zolpidem 5 mg Tablet 10 MG PO (21:32)
[2021-09-20 22:00] VITALS: BP 107/74; PULSE 85; RESP 16; TEMP 36.4; O2SAT 94
[2021-09-21 06:00] VITALS: BP 80/49; PULSE 69; RESP 16; TEMP 36.8; O2SAT 94
[2021-09-21] MEDS: pantoprazole DR 40 mg Tablet PO (06:29)
[2021-09-21] MEDS: buprenorphine-naloxone 4-1 mg Film 2 EACH SUBLINGUAL ×2 (06:30→17:05)
[2021-09-21] MEDS: chlorPROMazine 50 mg Tablet 100 MG PO ×2 (06:30→11:15)
[2021-09-21] MEDS: ammonium lactate lotion 226 gm Btl 1 APPLIC TOPICAL (08:19)
[2021-09-21] MEDS: ibuprofen 800 mg tablet PO ×2 (08:20→20:10)
[2021-09-21] MEDS: docusate sodium 100 mg Capsule PO (08:21)
[2021-09-21] MEDS: nicotine 2 mg Gum BUCCAL ×3 (08:21→20:10)
[2021-09-21] MEDS: CLONazepam 0.5 mg Tablet PO ×2 (08:21→12:36)
[2021-09-21] MEDS: carvedilol 3.125 mg Tablet PO ×2 (08:21→20:10)
[2021-09-21] MEDS: aspirin 81 mg EC Tablet PO (08:21)
[2021-09-21] MEDS: amoxicillin 500 mg Capsule PO ×2 (08:21→17:05)
[2021-09-21 11:12] VITALS: BP 80/49
[2021-09-21] MEDS: losartan 50 mg Tablet 25 MG PO (11:12)
--- NOTE | 2021-09-21 11:15 | PC.NURSE ---
PRN THORAZINE 100 MG GIVEN PO PER REQUEST, PT C/O AGITATION, PARTICIPATING IN GROUP THERAPY CURRENTLY.
[2021-09-21 14:00] VITALS: BP 92/58; PULSE 54; RESP 18; TEMP 36.6; O2SAT 94
[2021-09-21] MEDS: lurasidone 80 mg Tablet 120 MG PO (16:24)
--- NOTE | 2021-09-21 18:46 | P.NPUPN_ITS ---
Subjective NPU Subjective: Patient presents today reporting that there are no changes. He is not having any issues and is ultimately just waiting for placement. He reports he is a little bored but he understands the situation is what it is. Mental Status Exam MSE Comments: This is an obese, white male, in hospital scrubs, with adequate grooming, and eye contact. No abnormal movements except for psychomotor retardation. Cooperative with exam in no acute distress.?? Speech was slightly decreased rate and volume. Mood described as pretty good; affect congruent and less subdued. Thought process, organized. Thought content: patient denied any suicidal or homicidal ideation.? There were no delusions reported or noted, he denied any auditory or visual hallucinations. Attention, concentration, and memory appeared intact but were not formally tested.? He was alert and oriented times three. Insight and judgment appeared improving, impulse control appeared fair. Vitals/I&O/Wt Last Vital Signs Temp 97.9 F 09/21/21 21:33 Pulse 63 09/21/21 21:33 Resp 18 09/21/21 21:33 BP 119/80 09/21/21 21:33 Pulse Ox 95 09/21/21 21:33 Weight last 48 hrs Weight 108.862 kg Data NPU : 09/04/21 09:50 09/04/21 09:50 A&P Assessment and plan (1) Major depressive disorder: Status: Acute (2) Schizophrenia: Status: Chronic (3) Suicidal ideation: Status: Acute (4) Cluster B personality disorder: Status: Chronic (5) Psychosis: Status: Chronic (6) Auditory hallucinations: Status: Acute (7) Opiate misuse: Status: Chronic (8) Hypotension: Status: Acute (9) Chronic anticoagulation: Status: Chronic Plan This is a 36-year-old male with schizophrenia and cluster B personality traits who has multiple suicide attempts and probably needs a new living situation. Plan: 1.? Restart medications as they were at the last hospitalization.? Encouraged him to take the as needed Thorazine at least once per day.? Added cream for his flaking skin on his face. 2.? Continue every 15 minute checks for safety. 3.? Encourage individual, group and milieu therapies. 4.? Encourage sober living treatment after discharge at the highest level of care to which he is willing to commit. 5.? Working with guardian to find a facility to which he can be discharged. Involuntary Hold Information 96 Hour Hold: 96 Hour Involuntary Admission: Yes 96 Hour Hold Ending Date: 09/04/21 96 Hour Hold Ending Time: 20:00 Attestations NPU Medical Necessity Statement*: Inpatient hospitalization is medically necessary and the clinically appropriate intervention at this time.? We will initiate medications and make changes as indicated.? He will be hospitalized until adequate placement is found. Coding Level of Care Code Acute Head Of Ict for [facility] Fwd Diagnoses Major depressive disorder F32.9 Schizophrenia F20.9 Suicidal ideation R45.851 Cluster B personality disorder F60.89 Psychosis F29 Auditory hallucinations R44.0 Opiate misuse F11.90 Hypotension I95.9 Chronic anticoagulation Z79.01
[2021-09-21] MEDS: zolpidem 5 mg Tablet 10 MG PO (20:10)
[2021-09-21] MEDS: hyDROXYzine 25 mg Capsule 50 MG PO (20:10)
[2021-09-21] MEDS: chlorPROMazine 50 mg Tablet 250 MG PO (20:10)
[2021-09-21] MEDS: trazodone 150 mg Tablet 300 MG PO (20:10)
[2021-09-21 21:33] VITALS: BP 119/80; PULSE 63; RESP 18; TEMP 36.6; O2SAT 95
[2021-09-22 06:00] VITALS: BP 94/60; PULSE 65; RESP 17; TEMP 36.8; O2SAT 93
[2021-09-22] MEDS: pantoprazole DR 40 mg Tablet PO (06:19)
[2021-09-22] MEDS: buprenorphine-naloxone 4-1 mg Film 2 EACH SUBLINGUAL ×2 (06:19→17:10)
[2021-09-22] MEDS: chlorPROMazine 50 mg Tablet 100 MG PO (06:19)
[2021-09-22] MEDS: amoxicillin 500 mg Capsule PO ×2 (10:11→17:09)
[2021-09-22] MEDS: nicotine 2 mg Gum BUCCAL ×3 (10:11→21:05)
[2021-09-22] MEDS: carvedilol 3.125 mg Tablet PO ×2 (10:11→21:05)
[2021-09-22] MEDS: CLONazepam 0.5 mg Tablet PO ×2 (10:12→13:50)
[2021-09-22] MEDS: losartan 50 mg Tablet 25 MG PO (10:12)
[2021-09-22] MEDS: aspirin 81 mg EC Tablet PO (10:12)
[2021-09-22] MEDS: ibuprofen 800 mg tablet PO ×2 (13:52→21:09)
[2021-09-22 14:00] VITALS: BP 104/70; PULSE 75; RESP 17; TEMP 36.6; O2SAT 92
[2021-09-22] MEDS: lurasidone 80 mg Tablet 120 MG PO (17:07)
--- NOTE | 2021-09-22 17:55 | W.PM.NPUPNS ---
Subjective NPU Subjective: Jan presents today reporting that he is okay. The first day in some time where he had some dissecting thoughts. He was just thinking about his situation really wishing he could go home. We discussed the situation and how he ended up here. We discussed facilities looking at him which there is one currently evaluating. We discussed that any place that he goes he has an opportunity to rewrite his story and demonstrate functionality. But also we discussed his history which is what is here and his guardians concurrence with us that a controlled environment for some period of time is medically necessary for people possibly feel he will be safe outside the hospital at some future date. Mental Status Exam MSE Comments: This is an obese, white male, in hospital scrubs, with adequate grooming, and eye contact. No abnormal movements except for psychomotor retardation. Cooperative with exam in mild distress.?? Speech was slightly decreased rate and volume. Mood described as a little frustrated; affect congruent. Thought process, organized. Thought content: patient denied any suicidal or homicidal ideation.? There were no delusions reported or noted, he denied any auditory or visual hallucinations. Attention, concentration, and memory appeared intact but were not formally tested.? He was alert and oriented times three. Insight and judgment appeared improving, impulse control appeared fair. Vitals/I&O/Wt Last Vital Signs Temp 97.6 F 09/22/21 20:33 Pulse 73 09/22/21 20:33 Resp 16 09/22/21 20:33 BP 108/73 09/22/21 20:33 Pulse Ox 92 09/22/21 20:33 Data NPU : 09/04/21 09:50 09/04/21 09:50 A&P Assessment and plan (1) Major depressive disorder: Status: Acute (2) Schizophrenia: Status: Chronic (3) Suicidal ideation: Status: Acute (4) Cluster B personality disorder: Status: Chronic (5) Psychosis: Status: Chronic (6) Auditory hallucinations: Status: Acute (7) Opiate misuse: Status: Chronic (8) Hypotension: Status: Acute (9) Chronic anticoagulation: Status: Chronic Plan This is a 36-year-old male with schizophrenia and cluster B personality traits who has multiple suicide attempts and probably needs a new living situation. Plan: 1.? Restart medications as they were at the last hospitalization.? Encouraged him to take the as needed Thorazine at least once per day.? Added cream for his flaking skin on his face. 2.? Continue every 15 minute checks for safety. 3.? Encourage individual, group and milieu therapies. 4.? Encourage sober living treatment after discharge at the highest level of care to which he is willing to commit. 5.? Working with guardian to find a facility to which he can be discharged. Involuntary Hold Information 96 Hour Hold: 96 Hour Involuntary Admission: Yes 96 Hour Hold Ending Date: 09/04/21 96 Hour Hold Ending Time: 20:00 Attestations NPU Medical Necessity Statement*: Inpatient hospitalization is medically necessary and the clinically appropriate intervention at this time.? We will initiate medications and make changes as indicated.? He will be hospitalized until adequate placement is found. Coding Level of Care Code Acute Milk Processing Worker for [facility] Fwd Diagnoses Major depressive disorder F32.9 Schizophrenia F20.9 Suicidal ideation R45.851 Cluster B personality disorder F60.89 Psychosis F29 Auditory hallucinations R44.0 Opiate misuse F11.90 Hypotension I95.9 Chronic anticoagulation Z79.01
[2021-09-22 20:33] VITALS: BP 108/73; PULSE 73; RESP 16; TEMP 36.4; O2SAT 92
[2021-09-22] MEDS: chlorPROMazine 50 mg Tablet 250 MG PO (21:05)
[2021-09-22] MEDS: zolpidem 5 mg Tablet 10 MG PO (21:05)
[2021-09-22] MEDS: hyDROXYzine 25 mg Capsule 50 MG PO (21:05)
[2021-09-22] MEDS: trazodone 150 mg Tablet 300 MG PO (21:09)
[2021-09-23 06:00] VITALS: BP 100/67; PULSE 82; RESP 14; TEMP 36.6; O2SAT 94
[2021-09-23] MEDS: buprenorphine-naloxone 4-1 mg Film 2 EACH SUBLINGUAL ×2 (06:13→17:15)
[2021-09-23] MEDS: chlorPROMazine 50 mg Tablet 100 MG PO ×2 (06:13→15:47)
[2021-09-23] MEDS: pantoprazole DR 40 mg Tablet PO (06:13)
[2021-09-23] MEDS: amoxicillin 500 mg Capsule PO (08:54)
[2021-09-23] MEDS: CLONazepam 0.5 mg Tablet PO ×2 (08:55→12:42)
[2021-09-23] MEDS: losartan 50 mg Tablet 25 MG PO (08:55)
[2021-09-23] MEDS: benztropine 1 mg Tablet PO (08:55)
[2021-09-23] MEDS: hyDROXYzine 25 mg Capsule 50 MG PO ×3 (08:55→20:09)
[2021-09-23] MEDS: aspirin 81 mg EC Tablet PO (08:55)
[2021-09-23] MEDS: carvedilol 3.125 mg Tablet PO ×2 (08:55→20:09)
[2021-09-23] MEDS: ibuprofen 800 mg tablet PO ×2 (08:56→20:10)
[2021-09-23] MEDS: nicotine 2 mg Gum BUCCAL ×6 (09:03→22:13)
--- NOTE | 2021-09-23 09:04 | PC.NURSE ---
IN ROOM READING A BOOK. CALM AND COOPERATIVE WITH ASSESSMENT. DENIES SI/HI AND VH AT THIS TIME. STATES HIS VOICES ARE AT AT 3. REQUEST VISTARIL FOR THE VOICES IN AM MEDS. DENIES PAIN, BUT STATES HE STILL WANTS [facility], MED NURSE NOTIFIED. SUPPORT VOICED.
[2021-09-23 14:00] VITALS: BP 115/74; PULSE 86; RESP 15; TEMP 36.6; O2SAT 94
--- NOTE | 2021-09-23 15:49 | PC.NURSE ---
PRN MEDICATION REQUEST PRN MEDICATION FOR VOICES. THORAZINE 100 MG GIVEN ORDERED.
[2021-09-23] MEDS: lurasidone 80 mg Tablet 120 MG PO (16:04)
--- NOTE | 2021-09-23 17:10 | P.NPUPN_ITS ---
Subjective NPU Subjective: Patient presents today wondering about this possibility for a place to stay. We discussed the fact that the opportunity is still in play. They are continuing to evaluate his information and consider him for their facility. He seemed unsure as to how to act or what to expect because of many previous disappointments but continues to be less isolative and denying any new issues. Mental Status Exam MSE Comments: This is an obese, white male, in hospital scrubs, with adequate grooming, and eye contact. No abnormal movements except for psychomotor retardation. Cooperative with exam in no acute distress.?? Speech was slightly decreased rate and volume. Mood described as I am fine; affect congruent. Thought process, organized. Thought content: patient denied any suicidal or homicidal ideation.? There were no delusions reported or noted, he denied any auditory or visual hallucinations. Attention, concentration, and memory appeared intact but were not formally tested.? He was alert and oriented times three. Insight and judgment appeared improving, impulse control appeared fair. Vitals/I&O/Wt Last Vital Signs Temp 97.9 F 09/23/21 14:00 Pulse 86 09/23/21 14:00 Resp 15 09/23/21 14:00 BP 115/74 09/23/21 14:00 Pulse Ox 94 09/23/21 14:00 Data NPU : 09/04/21 09:50 09/04/21 09:50 A&P Assessment and plan (1) Major depressive disorder: Status: Acute (2) Schizophrenia: Status: Chronic (3) Suicidal ideation: Status: Acute (4) Cluster B personality disorder: Status: Chronic (5) Psychosis: Status: Chronic (6) Auditory hallucinations: Status: Acute (7) Opiate misuse: Status: Chronic (8) Hypotension: Status: Acute (9) Chronic anticoagulation: Status: Chronic Plan This is a 36-year-old male with schizophrenia and cluster B personality traits who has multiple suicide attempts and probably needs a new living situation. Plan: 1.? Restarted medications as they were at the last hospitalization.? Encouraged him to take the as needed Thorazine at least once per day.? Added cream for his flaking skin on his face. 2.? Continue every 15 minute checks for safety. 3.? Encourage individual, group and milieu therapies. 4.? Encourage sober living treatment after discharge at the highest level of care to which he is willing to commit. 5.? Working with guardian to find a facility to which he can be discharged. Involuntary Hold Information 96 Hour Hold: 96 Hour Involuntary Admission: Yes 96 Hour Hold Ending Date: 09/04/21 96 Hour Hold Ending Time: 20:00 Attestations NPU Medical Necessity Statement*: Inpatient hospitalization is medically necessary and the clinically appropriate intervention at this time.? We will initiate medications and make changes as indicated.? He will be hospitalized until adequate placement is found. Coding Level of Care Code Acute Project Structural Engineer for g Fwd Diagnoses Major depressive disorder F32.9 Schizophrenia F20.9 Suicidal ideation R45.851 Cluster B personality disorder F60.89 Psychosis F29 Auditory hallucinations R44.0 Opiate misuse F11.90 Hypotension I95.9 Chronic anticoagulation Z79.01
[2021-09-23] MEDS: acetaminophen 325 mg Tablet 650 MG PO (17:15)
[2021-09-23] MEDS: trazodone 150 mg Tablet 300 MG PO (20:08)
[2021-09-23] MEDS: zolpidem 5 mg Tablet 10 MG PO (20:08)
[2021-09-23] MEDS: chlorPROMazine 50 mg Tablet 250 MG PO (20:09)
[2021-09-23 20:11] VITALS: BP 106/69; PULSE 66; RESP 16; O2SAT 93
[2021-09-23] MEDS: docusate sodium 100 mg Capsule PO (20:16)
[2021-09-23] MEDS: haloperidol 5 mg Tablet PO (20:54)
--- NOTE | 2021-09-23 21:52 | PC.NURSE ---
PRN PT REQUESTED SOMETHING FOR ANXIETY. VISTERIL WAS GIVEN. ALSO REQUESTED NICOTINE GUM. SOMETIME LATER PT RETURNED TO NURSES STATION REQUESTING HALDOL DUE TO AUDITORY HALLUCINATIONS.
[2021-09-24] MEDS: calcium carbonate 500 mg Chew Tablet 1000 MG PO (03:41)
[2021-09-24 06:00] VITALS: BP 85/45; PULSE 66; RESP 17; TEMP 36.6; O2SAT 92
[2021-09-24] MEDS: buprenorphine-naloxone 4-1 mg Film 2 EACH SUBLINGUAL ×2 (06:20→17:43)
[2021-09-24] MEDS: chlorPROMazine 50 mg Tablet 100 MG PO ×2 (06:20→10:04)
[2021-09-24] MEDS: pantoprazole DR 40 mg Tablet PO (06:20)
[2021-09-24] MEDS: hyDROXYzine 25 mg Capsule 50 MG PO ×2 (10:04→20:36)
[2021-09-24] MEDS: ibuprofen 800 mg tablet PO ×2 (10:04→20:38)
[2021-09-24] MEDS: carvedilol 3.125 mg Tablet PO (10:04)
[2021-09-24] MEDS: simethicone 80 mg Chew PO ×2 (10:04→12:39)
[2021-09-24] MEDS: docusate sodium 100 mg Capsule PO ×2 (10:04→17:43)
[2021-09-24 10:05] VITALS: BP 85/45
[2021-09-24] MEDS: losartan 50 mg Tablet 25 MG PO (10:05)
[2021-09-24] MEDS: nicotine 2 mg Gum BUCCAL ×6 (10:05→20:36)
[2021-09-24] MEDS: CLONazepam 0.5 mg Tablet PO ×2 (10:05→12:39)
[2021-09-24] MEDS: amoxicillin 500 mg Capsule PO ×2 (10:05→17:43)
[2021-09-24] MEDS: aspirin 81 mg EC Tablet PO (10:05)
[2021-09-24] MEDS: benzocaine 20% 7 gm 1 APPLIC MUCOUS MEM (10:55)
[2021-09-24] MEDS: diphenhydrAMINE 50 mg/mL SDV 1mL IM (11:22)
--- NOTE | 2021-09-24 11:40 | PC.NURSE ---
Administered 50mg of IM Benadryl for a bug sting.
[2021-09-24] MEDS: haloperidol 5 mg Tablet PO (13:11)
--- NOTE | 2021-09-24 13:14 | PC.NURSE ---
PRN MEDICATIONS PT TO NURSES STATION, [facility] HAS MADE HIM VERY ANXIOUS DUE TO OTHER PTS BEING NEERAJ. HALDOL 5 MG GIVEN ORDERED.
[2021-09-24] MEDS: OLANZapine 5 mg ODT PO (13:41)
[2021-09-24 14:00] VITALS: BP 87/60; PULSE 94; RESP 15; TEMP 36.6; O2SAT 96
--- NOTE | 2021-09-24 15:15 | P.NPUPN_ITS ---
Subjective NPU Subjective: Patient presents today reporting he is doing okay. He has been accepted at a facility. However his uncle who is partial guardian standing in the way of that discharge. We worked with the industrial relations analyst based on one of the automotive assembler's statements during the hearing to get the uncle removed as one of the guardians. The facility has agreed to work with us and we try to figure this out. Unfortunately his uncle and the calling now saying he wants him to come home which is proven to be a dangerous and ineffective plan. Mental Status Exam MSE Comments: This is an obese, white male, in hospital scrubs, with adequate grooming, and eye contact. No abnormal movements except for psychomotor retardation. Cooperative with exam in no acute distress.?? Speech was slightly decreased rate and volume. Mood described as okay; affect congruent. Thought process, organized. Thought content: patient denied any suicidal or homicidal ideation.? There were no delusions reported or noted, he denied any auditory or visual hallucinations. Attention, concentration, and memory appeared intact but were not formally tested.? He was alert and oriented times three. Insight and judgment appeared improving, impulse control appeared fair. Vitals/I&O/Wt Last Vital Signs Temp 97.9 F 09/24/21 14:00 Pulse 94 09/24/21 14:00 Resp 15 09/24/21 14:00 BP 87/60 09/24/21 14:00 Pulse Ox 96 09/24/21 14:00 Data NPU : 09/04/21 09:50 09/04/21 09:50 A&P Assessment and plan (1) Major depressive disorder: Status: Acute (2) Schizophrenia: Status: Chronic (3) Suicidal ideation: Status: Acute (4) Cluster B personality disorder: Status: Chronic (5) Psychosis: Status: Chronic (6) Auditory hallucinations: Status: Acute (7) Opiate misuse: Status: Chronic (8) Hypotension: Status: Acute (9) Chronic anticoagulation: Status: Chronic Plan This is a 36-year-old male with schizophrenia and cluster B personality traits who has multiple suicide attempts and probably needs a new living situation. Plan: 1.? Restarted medications as they were at the last hospitalization.? Encouraged him to take the as needed Thorazine at least once per day.? Added cream for his flaking skin on his face. 2.? Continue every 15 minute checks for safety. 3.? Encourage individual, group and milieu therapies. 4.? Encourage sober living treatment after discharge at the highest level of care to which he is willing to commit. 5.? Awaiting industrial relations analyst and charges approval to follow primary guardian's position. Hopeful discharge in the morning. Involuntary Hold Information 96 Hour Hold: 96 Hour Involuntary Admission: Yes 96 Hour Hold Ending Date: 09/04/21 96 Hour Hold Ending Time: 20:00 Attestations NPU Medical Necessity Statement*: Inpatient hospitalization is medically necessary and the clinically appropriate intervention at this time.? We will initiate medications and make changes as indicated.? Likely discharge in 1 to 2 days. Coding Level of Care Code Acute Jr. Systems Administrator for [facility] Fwd Diagnoses Major depressive disorder F32.9 Schizophrenia F20.9 Suicidal ideation R45.851 Cluster B personality disorder F60.89 Psychosis F29 Auditory hallucinations R44.0 Opiate misuse F11.90 Hypotension I95.9 Chronic anticoagulation Z79.01
[2021-09-24] MEDS: lurasidone 80 mg Tablet 120 MG PO (16:08)
[2021-09-24 20:21] VITALS: BP 94/50; PULSE 64; RESP 16; TEMP 36.8; O2SAT 92
[2021-09-24] MEDS: trazodone 150 mg Tablet 300 MG PO (20:35)
[2021-09-24] MEDS: zolpidem 5 mg Tablet 10 MG PO (20:36)
[2021-09-24] MEDS: chlorPROMazine 50 mg Tablet 250 MG PO (20:36)
[2021-09-25 06:00] VITALS: BP 95/61; PULSE 67; RESP 18; TEMP 36.6; O2SAT 91
[2021-09-25] MEDS: chlorPROMazine 50 mg Tablet 100 MG PO ×2 (06:01→12:35)
[2021-09-25] MEDS: pantoprazole DR 40 mg Tablet PO (06:02)
[2021-09-25] MEDS: buprenorphine-naloxone 4-1 mg Film 2 EACH SUBLINGUAL ×2 (06:02→16:47)
[2021-09-25] MEDS: calcium carbonate 500 mg Chew Tablet 1000 MG PO ×2 (06:46→16:47)
[2021-09-25] MEDS: nicotine 2 mg Gum BUCCAL ×6 (08:13→20:11)
[2021-09-25] MEDS: amoxicillin 500 mg Capsule PO (08:13)
[2021-09-25 08:14] VITALS: BP 95/61
[2021-09-25] MEDS: CLONazepam 0.5 mg Tablet PO ×2 (08:14→12:36)
[2021-09-25] MEDS: carvedilol 3.125 mg Tablet PO (08:14)
[2021-09-25] MEDS: losartan 50 mg Tablet 25 MG PO (08:14)
[2021-09-25] MEDS: docusate sodium 100 mg Capsule PO (08:14)
[2021-09-25] MEDS: aspirin 81 mg EC Tablet PO (08:14)
[2021-09-25] MEDS: ibuprofen 800 mg tablet PO ×2 (09:08→20:12)
[2021-09-25] MEDS: ammonium lactate lotion 226 gm Btl 1 APPLIC TOPICAL (09:22)
[2021-09-25 13:45] VITALS: BP 90/58; PULSE 71; RESP 15; TEMP 36.6; O2SAT 92
[2021-09-25] MEDS: lurasidone 80 mg Tablet 120 MG PO (16:48)
--- NOTE | 2021-09-25 18:24 | W.PM.NPUPNS ---
Subjective NPU Subjective: Patient presents today reporting that he wants to go home he thinks. We discussed how the courts handling of the guardianship situation has created a problem because his uncle is technically a guardian. I had a conversation with the uncle who expressed irrational beliefs about where the facility actually is initially arguing that we were sending him for hours away when the fact it is no further than an hour and 15 minutes. He then conceded to being 2 hours which we discussed you can not just randomly make up how long it takes to get somewhere. He next acknowledges that there was a factor in this was that I need Jan. He discussed him helping him around the property and expressed concern that if we send him somewhere he would leave that place and they would not see him again. Mental Status Exam MSE Comments: This is an obese, white male, in hospital scrubs, with adequate grooming, and eye contact. No abnormal movements except for psychomotor retardation. Cooperative with exam in no acute distress.?? Speech was slightly decreased rate and volume. Mood described as fine; affect congruent, but subdued Thought process, organized. Thought content: patient denied any suicidal or homicidal ideation.? There were no delusions reported or noted, he denied any auditory or visual hallucinations. Attention, concentration, and memory appeared intact but were not formally tested.? He was alert and oriented times three. Insight and judgment appeared improving, impulse control appeared fair. Vitals/I&O/Wt Last Vital Signs Temp 98.3 F 09/25/21 19:52 Pulse 93 09/25/21 19:52 Resp 16 09/25/21 19:52 BP 95/66 09/25/21 19:52 Pulse Ox 93 09/25/21 19:52 Data NPU : 09/04/21 09:50 09/04/21 09:50 A&P Assessment and plan (1) Major depressive disorder: Status: Acute (2) Schizophrenia: Status: Chronic (3) Suicidal ideation: Status: Acute (4) Cluster B personality disorder: Status: Chronic (5) Psychosis: Status: Chronic (6) Auditory hallucinations: Status: Acute (7) Opiate misuse: Status: Chronic (8) Hypotension: Status: Acute (9) Chronic anticoagulation: Status: Chronic Plan This is a 36-year-old male with schizophrenia and cluster B personality traits who has multiple suicide attempts and probably needs a new living situation. Plan: 1.? Restarted medications as they were at the last hospitalization.? Encouraged him to take the as needed Thorazine at least once per day.? Added cream for his flaking skin on his face. 2.? Continue every 15 minute checks for safety. 3.? Encourage individual, group and milieu therapies. 4.? Encourage sober living treatment after discharge at the highest level of care to which he is willing to commit. 5.? Awaiting electric switch repairer and charges approval to follow primary guardian's position.? Likely no chance for discharge now until Tuesday. Due to the holiday. Involuntary Hold Information 96 Hour Hold: 96 Hour Involuntary Admission: Yes 96 Hour Hold Ending Date: 09/04/21 96 Hour Hold Ending Time: 20:00 Attestations NPU Medical Necessity Statement*: Inpatient hospitalization is medically necessary and the clinically appropriate intervention at this time.? We will initiate medications and make changes as indicated.? Likely discharge in 4 days. Coding Level of Care Code Acute Clinical Orthoptist for [facility] Fwd Diagnoses Major depressive disorder F32.9 Schizophrenia F20.9 Suicidal ideation R45.851 Cluster B personality disorder F60.89 Psychosis F29 Auditory hallucinations R44.0 Opiate misuse F11.90 Hypotension I95.9 Chronic anticoagulation Z79.01
[2021-09-25 19:52] VITALS: BP 95/66; PULSE 93; RESP 16; TEMP 36.8; O2SAT 93
[2021-09-25] MEDS: hyDROXYzine 25 mg Capsule 50 MG PO (20:11)
[2021-09-25] MEDS: trazodone 150 mg Tablet 300 MG PO (20:11)
[2021-09-25] MEDS: chlorPROMazine 50 mg Tablet 250 MG PO (20:12)
[2021-09-25] MEDS: zolpidem 5 mg Tablet 10 MG PO (20:12)
[2021-09-25] MEDS: haloperidol 5 mg Tablet PO (21:06)
[2021-09-26 06:00] VITALS: BP 93/60; PULSE 72; RESP 18; TEMP 36.8; O2SAT 92
[2021-09-26] MEDS: buprenorphine-naloxone 4-1 mg Film 2 EACH SUBLINGUAL ×2 (06:10→17:11)
[2021-09-26] MEDS: chlorPROMazine 50 mg Tablet 100 MG PO ×2 (06:10→13:49)
[2021-09-26] MEDS: pantoprazole DR 40 mg Tablet PO (06:10)
--- NOTE | 2021-09-26 07:58 | P.NPUPN_ITS ---
Subjective NPU Subjective: Patient presents today reporting that he is doing okay. We discussed the plan as far as the balance staff staker and guardian are concerned. We discussed that he was starting Dr. Bolton but that he would have all the notes and have me available in treatment team. He denied having any new concerns reported eating and sleeping fine. Mental Status Exam 2 MSE Comments: This is an obese, white male, in hospital scrubs, with adequate grooming, and eye contact. No abnormal movements except for psychomotor retardation. Cooperative with exam in no acute distress.?? Speech was slightly decreased rate and volume. Mood described as okay; affect congruent, but subdued Thought process, organized. Thought content: patient denied any suicidal or homicidal ideation.? There were no delusions reported or noted, he denied any auditory or visual hallucinations. Attention, concentration, and memory appeared intact but were not formally tested.? He was alert and oriented times three. Insight and judgment appeared improving, impulse control appeared fair. Vitals/I&O/Wt Last Vital Signs Temp 98.2 F 09/26/21 06:00 Pulse 72 09/26/21 06:00 Resp 18 09/26/21 06:00 BP 93/60 09/26/21 06:00 Pulse Ox 92 09/26/21 06:00 Weight last 48 hrs Weight 112.582 kg Weight 112.582 kg Data NPU : 09/04/21 09:50 09/04/21 09:50 A&P Assessment and plan (1) Major depressive disorder: Status: Acute (2) Schizophrenia: Status: Chronic (3) Suicidal ideation: Status: Acute (4) Cluster B personality disorder: Status: Chronic (5) Psychosis: Status: Chronic (6) Auditory hallucinations: Status: Acute (7) Opiate misuse: Status: Chronic (8) Hypotension: Status: Acute (9) Chronic anticoagulation: Status: Chronic Plan This is a 36-year-old male with schizophrenia and cluster B personality traits who has multiple suicide attempts and probably needs a new living situation. Plan: 1.? Restarted medications as they were at the last hospitalization.? Encouraged him to take the as needed Thorazine at least once per day.? Added cream for his flaking skin on his face. 2.? Continue every 15 minute checks for safety. 3.? Encourage individual, group and milieu therapies. 4.? Encourage sober living treatment after discharge at the highest level of care to which he is willing to commit. 5.? Awaiting helper shear operator and charges approval to follow primary guardian's position.? Likely no chance for discharge now until Tuesday.? Due to the holiday. Involuntary Hold Information 96 Hour Hold: 96 Hour Involuntary Admission: Yes 96 Hour Hold Ending Date: 09/04/21 96 Hour Hold Ending Time: 20:00 Attestations NPU Medical Necessity Statement*: Inpatient hospitalization is medically necessary and the clinically appropriate intervention at this time.? We will initiate medications and make changes as indicated.? Likely discharge in 3 days. Coding Level of Care Code Acute Senior Applications Engineer for g Fwd Diagnoses Major depressive disorder F32.9 Schizophrenia F20.9 Suicidal ideation R45.851 Cluster B personality disorder F60.89 Psychosis F29 Auditory hallucinations R44.0 Opiate misuse F11.90 Hypotension I95.9 Chronic anticoagulation Z79.01
[2021-09-26 08:37] VITALS: BP 93/60
[2021-09-26] MEDS: carvedilol 3.125 mg Tablet PO (08:37)
[2021-09-26] MEDS: losartan 50 mg Tablet 25 MG PO (08:37)
[2021-09-26] MEDS: CLONazepam 0.5 mg Tablet PO ×2 (08:38→12:46)
[2021-09-26] MEDS: aspirin 81 mg EC Tablet PO (08:38)
[2021-09-26] MEDS: ibuprofen 800 mg tablet PO ×2 (08:48→20:13)
[2021-09-26] MEDS: nicotine 2 mg Gum BUCCAL ×5 (08:48→20:12)
[2021-09-26] MEDS: hyDROXYzine 25 mg Capsule 50 MG PO ×2 (10:27→20:12)
[2021-09-26] MEDS: simethicone 80 mg Chew PO (12:46)
[2021-09-26 14:00] VITALS: BP 118/79; PULSE 66; RESP 17; O2SAT 94
[2021-09-26] MEDS: haloperidol 5 mg Tablet PO (16:00)
[2021-09-26] MEDS: lurasidone 80 mg Tablet 120 MG PO (16:34)
[2021-09-26] MEDS: trazodone 150 mg Tablet 300 MG PO (20:12)
[2021-09-26] MEDS: zolpidem 5 mg Tablet 10 MG PO (20:12)
[2021-09-26] MEDS: chlorPROMazine 50 mg Tablet 250 MG PO (20:12)
[2021-09-26 20:21] VITALS: BP 99/60; PULSE 81; RESP 14; TEMP 36.6; O2SAT 98
[2021-09-27 06:00] VITALS: BP 91/52; PULSE 63; RESP 16; TEMP 36.6; O2SAT 91; BMI 34.6
[2021-09-27] MEDS: pantoprazole DR 40 mg Tablet PO (06:14)
[2021-09-27] MEDS: chlorPROMazine 50 mg Tablet 100 MG PO ×2 (06:14→12:12)
[2021-09-27] MEDS: buprenorphine-naloxone 4-1 mg Film 2 EACH SUBLINGUAL ×2 (06:14→17:17)
[2021-09-27 07:57] VITALS: BP 91/52
[2021-09-27] MEDS: ibuprofen 800 mg tablet PO ×2 (07:57→20:22)
[2021-09-27] MEDS: losartan 50 mg Tablet 25 MG PO (07:57)
[2021-09-27] MEDS: aspirin 81 mg EC Tablet PO (07:57)
[2021-09-27] MEDS: nicotine 2 mg Gum BUCCAL ×6 (07:57→20:22)
[2021-09-27] MEDS: CLONazepam 0.5 mg Tablet PO ×2 (07:57→12:12)
[2021-09-27] MEDS: carvedilol 3.125 mg Tablet PO (07:57)
[2021-09-27] MEDS: simethicone 80 mg Chew PO (07:57)
--- NOTE | 2021-09-27 08:47 | W.PM.NPUPNS ---
Subjective NPU Subjective: Patient is a 36y.o. white male with Schizophrenia currently admitted with auditory hallucinations after overdose. Patient presents today reporting that he is doing okay.? He reports that he has been able to concentrate on reading as he was reading a casi huertas novel in his room. He reports a history of multiple antipsychotic trials in the past and reports that he had previously been stable on higher dose of thorazine in the past. He reports improved sleep but reports anergia and some motivational difficulties. Mental Status Exam MSE Comments: This is an obese, white male, in hospital scrubs, with adequate grooming, and eye contact. No abnormal movements except for psychomotor retardation. Friendly and Cooperative with exam in no acute distress.?? Speech was normal in rate and volume. Mood described as okay; affect congruent, but subdued Thought process, organized. Thought content: patient denied any suicidal or homicidal ideation at this time. ? There were no delusions reported or noted, he endorsed auditory but no visual hallucinations. Attention, concentration, and memory appeared intact but were not formally tested.? He was alert and oriented times three. Insight and judgment appeared improving, impulse control appeared fair. Vitals/I&O/Wt Last Vital Signs Temp 98.0 F 09/28/21 06:00 Pulse 109 H 09/28/21 06:00 Resp 16 09/28/21 06:00 BP 77/53 09/28/21 06:00 Pulse Ox 95 09/28/21 06:00 Weight last 48 hrs Weight 112.582 kg Weight 112.582 kg Data NPU : 09/04/21 09:50 09/04/21 09:50 A&P Assessment and plan (1) Schizophrenia: Status: Chronic (2) Suicidal ideation: Status: Acute (3) Opioid type dependence, episodic: Status: Acute Plan This is a 36-year-old male with schizophrenia and cluster B personality traits who has multiple suicide attempts with current plan to seek a new living situation Plan: 1.? Will increase thorazine tommorow. ?? 2.? Continue every 15 minute checks for safety. 3.? Encourage individual, group and milieu therapies. 4.? Encourage sober living treatment after discharge at the highest level of care to which he is willing to commit. 5.? Awaiting resident engineer and charges approval to follow primary guardian's position. Involuntary Hold Information 96 Hour Hold: 96 Hour Involuntary Admission: Yes 96 Hour Hold Ending Date: 09/04/21 96 Hour Hold Ending Time: 20:00 Attestations NPU Medical Necessity Statement*: Inpatient hospitalization is medically necessary and the clinically appropriate intervention at this time.? We will initiate medications and make changes as indicated.? Likely discharge in 3 days. Coding Level of Care Code Acute Gang Vibrator Operator for [facility] Fwd History Problem Focused Exam Problem Focused Medical Decision Making Straight Forward Diagnoses Schizophrenia F20.9 Suicidal ideation R45.851 Opioid type dependence, episodic F11.20
[2021-09-27] MEDS: hyDROXYzine 25 mg Capsule 50 MG PO ×2 (10:08→20:23)
[2021-09-27 14:00] VITALS: BP 91/59; PULSE 67; RESP 15; TEMP 36.3; O2SAT 94
[2021-09-27] MEDS: lurasidone 80 mg Tablet 120 MG PO (16:31)
[2021-09-27 20:04] VITALS: BP 72/48; PULSE 77; RESP 15; TEMP 36.6; O2SAT 98
[2021-09-27] MEDS: chlorPROMazine 50 mg Tablet 250 MG PO (20:22)
[2021-09-27] MEDS: zolpidem 5 mg Tablet 10 MG PO (20:23)
[2021-09-27] MEDS: trazodone 150 mg Tablet 300 MG PO (20:23)
[2021-09-28 06:00] VITALS: BP 77/53; PULSE 109; RESP 16; TEMP 36.7; O2SAT 95
[2021-09-28] MEDS: chlorPROMazine 50 mg Tablet 100 MG PO (06:07)
[2021-09-28] MEDS: buprenorphine-naloxone 4-1 mg Film 2 EACH SUBLINGUAL ×2 (06:07→17:07)
[2021-09-28] MEDS: pantoprazole DR 40 mg Tablet PO (06:07)
[2021-09-28] MEDS: nicotine 2 mg Gum BUCCAL ×3 (08:25→20:29)
[2021-09-28] MEDS: simethicone 80 mg Chew PO (08:25)
[2021-09-28] MEDS: losartan 50 mg Tablet 25 MG PO (08:25)
[2021-09-28] MEDS: CLONazepam 0.5 mg Tablet PO ×2 (08:26→12:33)
[2021-09-28] MEDS: docusate sodium 100 mg Capsule PO ×2 (08:27→17:27)
[2021-09-28] MEDS: aspirin 81 mg EC Tablet PO (08:27)
[2021-09-28] MEDS: carvedilol 3.125 mg Tablet PO ×2 (08:28→20:29)
[2021-09-28] MEDS: ibuprofen 800 mg tablet PO ×2 (08:42→20:30)
[2021-09-28] MEDS: hyDROXYzine 25 mg Capsule 50 MG PO ×2 (10:14→20:29)
--- NOTE | 2021-09-28 10:53 | W.PM.NPUPNS ---
Subjective NPU Subjective: Patient is a 36y.o. white male with Schizophrenia currently admitted with auditory hallucinations after overdose.? Patient presents today reporting that he is doing the same, he reports no muscle stifness. and reports that his concentration has been adequate. Good sleep reported, denies homicidal or suicidal ideation. He reports improved motivatin He reports that he has been able to concentrate on reading as he was reading a casi huertas novel in his room.? He reports a history of multiple antipsychotic trials in the past and reports that he had previously been stable on higher dose of thorazine in the past but reports addition of latuda has helped. ? Mental Status Exam MSE Comments: his is an obese, white male, in hospital scrubs, with adequate grooming, and eye contact. No abnormal movements except for psychomotor retardation. Friendly and Cooperative with exam in no acute distress.?? Speech was normal in? rate and volume. Mood described as okay; affect congruent, but subdued Thought process, more organized. Thought content: patient denied any suicidal or homicidal ideation at this time.? ? There were no delusions reported or noted, he endorsed? auditory but no visual hallucinations. Attention, concentration, and memory appeared intact but were not formally tested.? He was alert and oriented times three. Insight and judgment appeared, impulse control to be improving Vitals/I&O/Wt Last Vital Signs Temp 98.0 F 09/28/21 14:00 Pulse 70 09/28/21 14:00 Resp 16 09/28/21 14:00 BP 100/69 09/28/21 14:00 Pulse Ox 95 09/28/21 14:00 Weight last 48 hrs Weight 112.582 kg Weight 112.582 kg Data NPU : 09/04/21 09:50 09/04/21 09:50 A&P Assessment and plan (1) Schizophrenia: Plan This is a 36-year-old male with schizophrenia and cluster B personality traits who has multiple suicide attempts with current plan to seek a new living situation Plan: 1.? increase thorazine to 100mg in am and 300mg at night. ?? 2.? Continue every 15 minute checks for safety. 3.? Encourage individual, group and milieu therapies. 4.? Encourage sober living treatment after discharge at the highest level of care to which he is willing to commit. 5.? Awaiting pressurised container filler and charges approval to follow primary guardian's position. Status: Chronic (2) Opioid type dependence, episodic: Status: Acute (3) Suicidal ideation: Status: Acute (4) Auditory hallucinations: Status: Acute Involuntary Hold Information 96 Hour Hold: 96 Hour Involuntary Admission: Yes 96 Hour Hold Ending Date: 09/04/21 96 Hour Hold Ending Time: 20:00 Attestations NPU Medical Necessity Statement*: Inpatient hospitalization is medically necessary and the clinically appropriate intervention at this time.? We will continue medications and make changes as indicated.? Likely discharge in 2-3 days Coding Level of Care Code Established Pt Acute Batch Records Clerk for Chg Fwd Patient Type Established History Problem Focused Exam Problem Focused Medical Decision Making Straight Forward Diagnoses Opioid type dependence, episodic F11.20 Schizophrenia F20.9 Suicidal ideation R45.851 Auditory hallucinations R44.0
--- NOTE | 2021-09-28 11:53 | PC.NURSE ---
PRN MED PT GIVEN 50 MG VISTARIL FOR STATED ANXIETY, WILL CONTINUE TO MONITOR.
[2021-09-28 14:00] VITALS: BP 100/69; PULSE 70; RESP 16; TEMP 36.7; O2SAT 95
[2021-09-28] MEDS: lurasidone 80 mg Tablet 120 MG PO (17:07)
[2021-09-28] MEDS: zolpidem 5 mg Tablet 10 MG PO (20:29)
[2021-09-28] MEDS: chlorPROMazine 50 mg Tablet 300 MG PO (20:29)
[2021-09-28] MEDS: trazodone 150 mg Tablet 300 MG PO (20:30)
[2021-09-28 22:00] VITALS: BP 100/61; PULSE 86; RESP 18; TEMP 36.7; O2SAT 93
[2021-09-29] MEDS: pantoprazole DR 40 mg Tablet PO (05:56)
[2021-09-29] MEDS: chlorPROMazine 50 mg Tablet 100 MG PO ×2 (05:56→14:36)
[2021-09-29] MEDS: buprenorphine-naloxone 4-1 mg Film 2 EACH SUBLINGUAL ×2 (05:56→16:53)
[2021-09-29 06:00] VITALS: BP 107/61; PULSE 62; RESP 16; TEMP 36.6; O2SAT 92
[2021-09-29] MEDS: nicotine 2 mg Gum BUCCAL ×5 (08:26→20:13)
[2021-09-29] MEDS: aspirin 81 mg EC Tablet PO (08:26)
[2021-09-29] MEDS: CLONazepam 0.5 mg Tablet PO ×2 (08:26→12:04)
[2021-09-29] MEDS: docusate sodium 100 mg Capsule PO ×2 (08:26→16:54)
[2021-09-29] MEDS: ibuprofen 800 mg tablet PO ×2 (08:26→20:12)
[2021-09-29 08:27] VITALS: BP 107/61
[2021-09-29] MEDS: losartan 50 mg Tablet 25 MG PO (08:27)
[2021-09-29] MEDS: carvedilol 3.125 mg Tablet PO ×2 (08:27→20:13)
[2021-09-29] MEDS: hyDROXYzine 25 mg Capsule 50 MG PO ×2 (09:28→20:13)
--- NOTE | 2021-09-29 11:19 | W.PM.NPUPNS ---
Subjective NPU Subjective: Patient is a 36y.o. white male with Schizophrenia currently admitted with auditory hallucinations after overdose.? Patient presents today reporting that he is doing the same, he reports no muscle stiffness and reports that his concentration has been adequate. Good sleep reported, denies homicidal or suicidal ideation.? Jan reports that he wishes to return to live with his uncle and does not wish to go to [facility] which is a drug and drug rehabilitation center. Patient reports that he is feeling ready to return home but did not elucidate as to how he would remain sober. He reports that he feels comfortable with taking his medic that these medications. He has reported feeling somewhat sedated at times on the Thorazine but was redirectable Mental Status Exam MSE Comments: He is a casually dressed overweight white male who appeared his stated age. His mood was described as better. His affect remained somewhat flat. His thought process was linear and logical but superficial. His thought content showed no active homicidal or suicidal ideation. there is no clear evidence of delusional thinking He did not appear to be responding to internal stimuli. His insight remains somewhat poor regarding his reason for initial hospitalization. his judgment still remains limited Vitals/I&O/Wt Last Vital Signs Temp 98 F 09/29/21 14:00 Pulse 68 09/29/21 14:00 Resp 17 09/29/21 14:00 BP 110/71 09/29/21 14:00 Pulse Ox 93 09/29/21 14:00 Data NPU : 09/04/21 09:50 09/04/21 09:50 A&P Assessment and plan (1) Schizophrenia: Status: Chronic (2) Opioid type dependence, episodic: Status: Acute (3) Cluster B personality disorder: Status: Chronic (4) Suicidal ideation: Status: Acute (5) Auditory hallucinations: Status: Acute Plan This is a 36-year-old male with schizophrenia and cluster B personality traits who has multiple suicide attempts with current plan to seek a new living situation Plan: 1.? increase thorazine to 100mg in am and 300mg at night. ?? 2.? Continue every 15 minute checks for safety. 3.? Encourage individual, group and milieu therapies. 4.? Encourage sober living treatment after discharge at the highest level of care to which he is willing to commit. 5.? Awaiting milling machine tender and charges approval to follow primary guardian's position. (2) Opioid type dependence, episodic: (3) Suicidal ideation: (4) Auditory hallucinations: Involuntary Hold Information 96 Hour Hold: 96 Hour Involuntary Admission: Yes 96 Hour Hold Ending Date: 09/04/21 96 Hour Hold Ending Time: 20:00 Attestations NPU Medical Necessity Statement*: Inpatient hospitalization is medically necessary and the clinically appropriate intervention at this time.? We will continue? medications and make changes as indicated.? Likely discharge in 2-3 days Coding Level of Care Code Established Pt Acute Vmware Systems Administrator for Chg Fwd Patient Type Established History Problem Focused Exam Problem Focused Medical Decision Making Straight Forward Diagnoses Schizophrenia F20.9 Opioid type dependence, episodic F11.20 Cluster B personality disorder F60.89 Suicidal ideation R45.851 Auditory hallucinations R44.0
[2021-09-29] MEDS: haloperidol 5 mg Tablet PO (13:35)
[2021-09-29 14:00] VITALS: BP 110/71; PULSE 68; RESP 17; TEMP 36.6; O2SAT 93
[2021-09-29] MEDS: lurasidone 80 mg Tablet 120 MG PO (16:18)
[2021-09-29 19:56] VITALS: BP 85/48; PULSE 70; RESP 17; TEMP 36.3; O2SAT 95
[2021-09-29] MEDS: chlorPROMazine 50 mg Tablet 300 MG PO (20:11)
[2021-09-29] MEDS: zolpidem 5 mg Tablet 10 MG PO (20:13)
[2021-09-29] MEDS: trazodone 150 mg Tablet 300 MG PO (20:13)
[2021-09-30 06:00] VITALS: BP 83/42; PULSE 75; RESP 15; TEMP 36.5; O2SAT 94
[2021-09-30] MEDS: chlorPROMazine 50 mg Tablet 100 MG PO (06:22)
[2021-09-30] MEDS: buprenorphine-naloxone 4-1 mg Film 2 EACH SUBLINGUAL (06:22)
[2021-09-30] MEDS: pantoprazole DR 40 mg Tablet PO (06:22)
[2021-09-30] MEDS: carvedilol 3.125 mg Tablet PO (08:12)
[2021-09-30] MEDS: ibuprofen 800 mg tablet PO (08:12)
[2021-09-30] MEDS: losartan 50 mg Tablet 25 MG PO (08:13)
[2021-09-30] MEDS: aspirin 81 mg EC Tablet PO (08:13)
[2021-09-30] MEDS: docusate sodium 100 mg Capsule PO (08:13)
[2021-09-30] MEDS: CLONazepam 0.5 mg Tablet PO ×2 (08:13→12:42)
[2021-09-30] MEDS: nicotine 2 mg Gum BUCCAL ×3 (08:16→13:55)
[2021-09-30] MEDS: hyDROXYzine 25 mg Capsule 50 MG PO (10:41)
--- NOTE | 2021-09-30 10:41 | PC.NURSE ---
PRN VISTARIL 50 MG GIVEN PO PER PT C/O STATED ANXIETY. NO OUTWARD S/S OF ANXIETY NOTED
--- NOTE | 2021-09-30 11:56 | P.NPUDS_ITS ---
Diagnoses at Discharge Discharge Diagnosis (1) Schizophrenia: Status: Chronic (2) Opioid type dependence, episodic: Status: Acute (3) Cluster B personality disorder: Status: Chronic (4) Suicidal ideation: Status: Chronic (5) Auditory hallucinations: Status: Chronic Reason for Visit Reason for Visit: took too many sleeping pills Brief History: History of Present Illness Shayan Dickson is a 36 year old male admitted through our emergency department with the following report: Patient comes in with suicidal ideation.? States he tried to kill himself this morning by taking 80 Benadryl tablets and 10 trazodone tablets.? States he took these between 3 AM and 6 AM this morning which is about 4 hours prior to my evaluation.? When I ask him if he really took that many medications because he is not showing any signs of overdose he states he does not remember if he did or not. Associated symptoms: Reports suicidal ideation He was admitted to the neuropsychiatry unit for definitive treatment of these issues.? He says that his meds stopped working and he started hearing voices.? He told his uncle and his uncle was annoyed and he became convinced that his uncle did not want to be his guardian anymore.? He realized that his uncle did not want him living there anymore.? That made his anxiety and the hallucinations worse.? He says that he took an overdose of 80 Benadryl tablets as well as 15 of his Thorazine tablets.? He says that he did think that that would kill him.? He was not groggy in the emergency room but says that he did fall asleep after the doctor talked with him and has been groggy since then.? He is quite groggy this morning still.? He had difficulty waking up to talk with me.? He says that when he was released from the last hospitalization he was only given Thorazine 100 mg 3 times a day.? That was because it was the change that was made.? He said they could not find the refills on the 250 mg he had been prescribed previously.? He said that he did not talk to his uncle or call his physician to see if he could get a refill.? He said that he was worried that the voices would come back but did not do anything about it.? He says that the voices came back before his un dimitrios was annoyed with him however it happened quickly thereafter.? He says he is agreeable to going back to his previous dose of Thorazine as well as adjusting his medications the same as they were when he was here in the hospital last time.? We will work with the social workers when they come in on Tuesday to see what needs to happen with the guardianship and place to live. Hospital Course Hospital Course During the hospitalization, patient had routine laboratory studies which were within normal limits except for few outliers. Additionally there was a general medical evaluation which was also within normal limits and revealed no new acute processes. Discharge Summary: At the time of discharge, lethality was denied and psychosis was resolving. Mood and anxiety were well managed. Patient endorsed a plan to avoid all drugs of abuse and follow-up with the aftercare recommendations of the treatment team. Patient was evaluated and deemed to be absent credible lethality, and had achieved the maximum benefit from an inpatient hospitalization, so was discharged. The patient was not agreeable to entering in a rehabilitation facility and one of his guardians allowed him to return home Involuntary Hold Information 96 Hour Hold: 96 Hour Involuntary Admission: Yes 96 Hour Hold Ending Date: 09/04/21 96 Hour Hold Ending Time: 20:00 Mental Status Exam MSE Comments: He is a casually dressed overweight white male who appeared his stated age. His mood was described as better. His affect remained somewhat flat ? His thought process was linear and logical but superficial.? His thought content showed no active homicidal or suicidal ideation. ? there is no clear evidence of delusional thinking He did not appear to be responding to internal stimuli.? His insight was limited and judgment was improved. Discharge Data Studies Completed and Pending: Completed Studies During Hospitalization Category Date Time Status XR chest 1V sourav ble [id number] Urgent Exams 09/04/21 10:05 Completed Radiology Impressions Chest X-Ray 09/04/21 10:05 IMPRESSION: Unremarkable chest radiograph. Laboratory Results WBC 9.3 10^3/uL (4.0- 10.0) 09/04/21 09:50 RBC 5.70 10^6/uL (4.1 -5.3) H 09/04/21 09:50 Hgb 15.6 g/dL (11.7-1 6.6) 09/04/21 09:50 Hct 45.9 % (42.0-52.0 ) 09/04/21 09:50 MCV 80.5 fl (80-94) 09/04/21 09:50 MCH 27.4 pg (28.0-34. 0) L 09/04/21 09:50 MCHC 34.0 g/dL (30.0-3 6.0) 09/04/21 09:50 RDW 13.5 % (12.1-15.1 ) 09/04/21 09:50 Plt Count 268 10^3/cmm (130 -400) 09/04/21 09:50 MPV 10.4 fL (7.4-10.4 ) 09/04/21 09:50 Neut % (Auto) 69.3 % 09/04/21 09:50 Lymph % (Auto) 19.4 % 09/04/21 09:50 [place] % (Auto) 6.7 % 09/04/21 09:50 Eos % (Auto) 4.2 % 09/04/21 09:50 Baso % (Auto) 0.3 % 09/04/21 09:50 Neut # (Auto) 6.43 10^3/uL (1.8 -7.7) 09/04/21 09:50 Lymph # (Auto) 1.8 10^3/uL (0.8- 4.8) 09/04/21 09:50 [place] # (Auto) 0.6 10^3/uL (0.2- 0.9) 09/04/21 09:50 Eos # (Auto) 0.4 10^3/uL (0.0- 0.8) 09/04/21 09:50 Baso # (Auto) 0.0 10^3/uL (0.0- 0.1) 09/04/21 09:50 Nucleated RBC % (a uto) 0 % 09/04/21 09:50 Nucleated RBCs # 0.0 /100WBC 09/04/21 09:50 Sodium 138 mmol/L (136-1 45) 09/04/21 09:50 Potassium 4.0 mmol/L (3.5-5 .1) 09/04/21 09:50 Chloride 100 mmol/L (98-10 7) 09/04/21 09:50 Carbon Dioxide 25 mmol/L (22-29) 09/04/21 09:50 Anion Gap 17.0 (5-19) 09/04/21 09:50 BUN 8 mg/dL (6-20) 09/04/21 09:50 Creatinine 1.1 mg/dL (0.7-1. 2) 09/04/21 09:50 GFR Calculation 75.3 mL/min (90-1 30) L 09/04/21 09:50 Glucose 86 mg/dL (65-115) 09/04/21 09:50 POC Glucose 101 mg/dL (70-110 ) 09/10/21 09:48 Calculated Osmolal ity 284 mOsm/kg (285- 295) L 09/04/21 09:50 Calcium 9.7 mg/dL (8.5-10 .5) 09/04/21 09:50 Total Bilirubin 0.4 mg/dL (0.15-1 .2) 09/04/21 09:50 AST 18 U/L (0-40) 09/04/21 09:50 ALT 12 U/L (0-41) 09/04/21 09:50 Alkaline Phosphata se 96 IU/L (40-130) 09/04/21 09:50 Total Protein 8.2 g/dL (6.6-8.7 ) 09/04/21 09:50 Albumin 5.1 g/dL (3.5-5.2 ) 09/04/21 09:50 Globulin 3.1 g/dL (1.3-4.6 ) 09/04/21 09:50 Urine Color Yellow (Yellow) 09/04/21 09:35 Urine Appearance Clear (CLEAR) 09/04/21 09:35 Urine pH 5 (5-7) 09/04/21 09:35 Ur Specific Gravit y 1.030 (1.005-1.0 30) 09/04/21 09:35 Urine Protein Neg (Negative) 09/04/21 09:35 Urine Glucose (UA) Norm (Normal) 09/04/21 09:35 Urine Ketones Negative (Negati ve) 09/04/21 09:35 Urine Blood Neg (Negative) 09/04/21 09:35 Urine Nitrate Negative (Negati ve) 09/04/21 09:35 Urine Bilirubin 1+ (Negative) H 09/04/21 09:35 Urine Urobilinogen 1 mg/dL (Negative ) H 09/04/21 09:35 Ur Leukocyte Riya ase Negative (Negati ve) 09/04/21 09:35 Salicylates < 0.3 mg/dL (3-10 ) L 09/04/21 09:50 Urine Opiates Scre en Negative ng/mL (N egative) 09/04/21 09:35 Acetaminophen < 5.0 ug/mL (10-3 0) L 09/04/21 09:50 Ur Barbiturates Sc reen Negative ng/mL (N egative) 09/04/21 09:35 Ur Phencyclidine S crn Negative ng/mL (N egative) 09/04/21 09:35 Ur Amphetamines Sc reen Negative ng/mL (N egative) 09/04/21 09:35 U Benzodiazepines Scrn Negative ng/mL (N egative) 09/04/21 09:35 Urine Cocaine Scre en Negative ng/mL (N egative) 09/04/21 09:35 U Marijuana (THC) Screen Negative ng/mL (N egative) 09/04/21 09:35 Ethyl Alcohol < 10 mg/dL (0-10) 09/04/21 09:50 Vitals: Last Vital Signs Temp 97.7 F 09/30/21 14:18 Pulse 75 09/30/21 14:18 Resp 15 09/30/21 14:18 BP 83/42 09/30/21 14:18 Pulse Ox 94 09/30/21 14:18 Discharge Plan Discharge Patient Disposition: Home Condition: Stable Prescriptions: New chlorpromazine 50 mg Tablet 300 mg PO BEDTIME 30 Days Qty: 180 1RF chlorpromazine 50 mg Tablet 200 mg PO DAILY@0600 30 Days Qty: 120 1RF Latuda 80 mg Tablet 120 mg PO 1700 30 Days Qty: 45 1RF chlorpromazine 50 mg Tablet 100 mg PO TID PRN (Reason: Agitation) 30 Days Qty: 30 0RF Continued aspirin [Adult Low Dose Aspirin] 81 mg tablet,delayed release (DR/EC) 81 mg PO DAILY 0RF carvedilol 3.125 mg tablet 3.125 mg PO BID Qty: 60 3RF Rx Instructions: must administer with a meal/food pantoprazole 40 mg Tablet,Delayed Release (Dr/Ec) 40 mg PO DAILY 30 Days Qty: 30 1RF losartan 25 mg tablet 25 mg PO DAILY Qty: 30 1RF trazodone 150 mg Tablet 300 mg PO BEDTIME 30 Days Qty: 60 1RF buprenorphine-naloxone 4-1 mg film 2 film sublingual BID@0600,1800 0RF Discontinued hydroxyzine pamoate 25 mg Capsule 50 mg PO Q6H PRN (Reason: Anxiety or Sleep) 30 Days Qty: 120 1RF chlorpromazine 50 mg Tablet 250 mg PO BEDTIME Qty: 0 0RF chlorpromazine 50 mg Tablet 100 mg PO TID PRN (Reason: Agitation) 30 Days Qty: 150 1RF Latuda 80 mg Tablet 80 mg PO 1700 30 Days Qty: 30 1RF chlorpromazine 50 mg tablet 100 mg PO DAILY@0600 0RF No Action hydroxyzine HCl 50 mg tablet 50 mg PO BID PRN (Reason: anxiety) 15 Days Qty: 30 0RF Rx Instructions: Take one tablet morning and evening, if needed for anxiety Discharge Orders: Discharge Order (Routine); Ordered 09/30/21 Ordered By: Cody Bolton Referrals: Jamila Shine APRN [Nurse Practitioner] - 10/05/21 2:30 pm (Follow up) Justina Santo MD [Primary Care Provider] - Discharge Diet: Usual diet Discharge Activity: Resume usual activity Patient Instructions: Chlorpromazine (By mouth), Lurasidone (By mouth), Opioid Safety Discharge Attestations NPU Time Spent in Discharge Care*: less than 30 min Status at Discharge: Cognitive status at discharge: cognitively intact , Behavioral status at discharge: cooperative , Coding Level of Care Code Established Pt Acute Chg FW DC note Patient Type Established History Problem Focused Exam Problem Focused Medical Decision Making Straight Forward Diagnoses Schizophrenia F20.9 Opioid type dependence, episodic F11.20 Cluster B personality disorder F60.89 Suicidal ideation R45.851 Auditory hallucinations R44.0
[2021-09-30 14:00] VITALS: BP 98/59; PULSE 90; RESP 15; TEMP 36.6; O2SAT 95
[2021-09-30 14:18] VITALS: BP 83/42; PULSE 75; RESP 15; TEMP 36.5; O2SAT 94
--- NOTE | 2021-09-30 14:59 | DCPLANNER ---
IMM completed on 09/30/21 @ [id number]. Pt was given a copy of rights and stated he understood rights.
== END 2021-09-30 15:10 | disposition home or self-care (01) | DRG 918 ==
LOC: ER 17:16 → NP 17:56
PROVIDERS: Admitting Provider Psychiatry & Neurology Psychiatry; Emergency Provider Emergency Medicine; PCP Family Medicine; Visit Provider Psychiatry & Neurology Psychiatry
DX: T45.0X2A Poisoning by antiallergic and antiemetic drugs, intentional self-harm, initial encounter (principal); I42.8 Other cardiomyopathies; R45.851 Suicidal ideations; T43.212A Poisoning by selective serotonin and norepinephrine reuptake inhibitors, intentional self-harm, initial encounter; F25.1 Schizoaffective disorder, depressive type; F17.200 Nicotine dependence, unspecified, uncomplicated; F60.89 Other specific personality disorders
CPT/HCPCS: 36416; 71045; 80053; 80306; 80307; 81003; 82962; 85025; 93005; 96372; 97150; 97165; 99285; J0573; J1200; Q0161